=== PATIENT | male | born 1945 | race Caucasian/White ===

== ENCOUNTER 2020-07-27 06:47 | Day surgery (SDC) | payer MEDICARE, OTHER, SELFPAY ==
[2020-07-27] VITALS (7 sets, daily range): BP systolic 136–177; BP diastolic 66–94; PULSE 86–128; RESP 16–20; TEMP 36.4–36.9; O2SAT 93–99; BMI 26.5
--- NOTE | 2020-07-27 07:00 | HO.ECTPROC ---
ECT Procedure Note Diagnosis/Treatment Diagnosis: Major Depressive Disorder Previous ECT Date: 07/04/20 Current Treatment Number: 6 Treatment: Maintenance Interval Clinical Notes: depressed but stable. This note is for ECT of 07/27/20. LATE ENTRY ECT Settings Device: THYMATRON DGx Electrode Placement: Right Unilateral Program/Pulse Width: 0.25 Energy Percent: 35 Seizure Duration By EEG (in seconds): 46 By Motor Observation (in seconds): 30 Medications Administration General Anesthetic: Etomidate (12) Muscle Relaxant: Succinylcholine (100) Ancillary Medications Analgesics: Torodol - Pre ECT (15) Anti-emetics: Zofran - Pre ECT (4) Cardiovascular Medications: Labetolol (10 pre ECT) Miscillaneous Medications: Propofol (30) Airway Management Airway Management: Bag Mask Ventilation Treatment Recommendations No Changes Recommended: No change Pt Tolerated Procedure w/o Issue: Yes
--- NOTE | 2020-07-27 07:10 | HO.ECTPROC ---
ECT Procedure Note ECT Settings Device: THYMATRON DGx
--- NOTE | 2020-07-27 07:10 | MHC.SHP ---
Pre-Procedural Eval Section A The patient is an INPATIENT: No Changes since office visit: No Cold of Flu in the past 2 weeks, No New Medical Problems, No Changes in Medication and No Patient answered all questions The History & Physical has been completed within 30 days and I have reviewed it.: Yes Section B Chief Complaint: Severe Depression Allergies: Allergies Allergy/AdvReac Type Severity Reaction Status Date / Time No Known Allergies Allergy Unverified 06/21/20 15:24 [No Known Allergies*] Plan Diagnosis/Plan: Unchanged Patient has been examined and remains a candidate for the planned procedure
== END 2020-07-27 08:48 | disposition home or self-care (01) ==
PROVIDERS: PCP Nurse Practitioner Family; Visit Provider Psychiatry & Neurology Psychiatry
PROC: (CPT 90870; principal; 2020-07-27 08:00)
DX: F33.2 Major depressive disorder, recurrent severe without psychotic features (principal); C61 Malignant neoplasm of prostate; E78.5 Hyperlipidemia, unspecified; K21.9 Gastro-esophageal reflux disease without esophagitis; Z79.899 Other long term (current) drug therapy
CPT/HCPCS: 90870

== ENCOUNTER 2020-08-22 06:43 | Day surgery (SDC) | payer MEDICARE, OTHER, SELFPAY ==
--- NOTE | 2020-08-22 | ECG_ITS ---
Test Reason : TACHY Blood Pressure : / mmHG Vent. Rate : 128 BPM Atrial Rate : 128 BPM P-R Int : 152 ms QRS Dur : 088 ms QT Int : 316 ms P-R-T Axes : 004 -50 023 degrees QTc Int : 461 ms Sinus tachycardia Left anterior fascicular block Nonspecific ST abnormality Anterolateral leads Abnormal ECG When compared with ECG of 31-MAY-2020 11:21, Heart rate has increased ST more depressed Anterolateral leads Referred By: Tamia Scott Electronically Signed By:BEE CRENSHAW MD
[2020-08-22 06:44] VITALS: BP 133/84; PULSE 132; RESP 18; TEMP 36.6; O2SAT 93; BMI 26.5
[2020-08-22 07:00] VITALS: BP 141/94; PULSE 133; RESP 20; O2SAT 91
== END 2020-08-22 23:59 ==
PROVIDERS: PCP Nurse Practitioner Family; Visit Provider Psychiatry & Neurology Psychiatry
DX: F32.2 Major depressive disorder, single episode, severe without psychotic features (principal); F03.90 Unspecified dementia, unspecified severity, without behavioral disturbance, psychotic disturbance, mood disturbance, and anxiety; I10 Essential (primary) hypertension; I47.1 Supraventricular tachycardia; Z53.9 Procedure and treatment not carried out, unspecified reason
CPT/HCPCS: 93005

== ENCOUNTER 2020-08-22 07:31 | Inpatient (IN) | payer MEDICARE, OTHER, SELFPAY ==
[2020-08-22] VITALS (8 sets, daily range): BP systolic 103–139; BP diastolic 80–87; PULSE 96–117; RESP 16–20; TEMP 36–36.9; O2SAT 93–97; BMI 26.1; BMI 25.8
--- NOTE | 2020-08-22 07:35 | ED.SOB ---
HPI - SOB/Dyspnea General Chief Complaint: General Medical Stated Complaint: elevated heart rate Time Seen by Provider: 08/22/20 07:35 Source: patient Mode of arrival: other (from [facility] canceled ECT) Limitations: altered mental status History of Present Illness MD elicited complaint: shortness of breath Onset (ago): minute(s) (waiting for ECT) Context: anxiety Timing: constant Severity: mild Exacerbating factors: nothing Relieving factors: oxygen Known history of: other (SVT) Associated symptoms: palpitations Treatment prior to arrival: oxygen Related Data Home Medications Medication Instructions Recorded Confirmed doxazosin 2 mg PO DAILY 07/26/20 08/22/20 duloxetine 60 mg PO DAILY 07/26/20 08/22/20 finasteride 5 mg PO DAILY 07/26/20 08/22/20 olanzapine 20 mg PO BEDTIME 07/26/20 08/22/20 oxybutynin chloride 5 mg PO DAILY 07/26/20 08/22/20 trazodone 200 mg PO BEDTIME 07/26/20 08/22/20 Allergies Allergy/AdvReac Type Severity Reaction Status Date / Time No Known Allergies Allergy Unverified 06/21/20 15:24 [No Known Allergies*] Review of Systems Review of Systems: ROS unable to be obtained due to poor comprehension PMFSH Past Medical History Attestation statement: The following information was validated with the patient. Source: old records reviewed Medical History (Updated 08/22/20 @ 11:45 by Stephanie Gudino DO) Dementia Depression GERD (gastroesophageal reflux disease) HTN (hypertension) Hyperlipidemia SVT (supraventricular tachycardia) Surgical History (Updated 08/22/20 @ 06:40 by Nidia Lopez) H/O hernia repair History of colostomy reversal Social History Social History Smoking Status: Never smoker Smoked in Last 30 Days: No Second Hand Smoke Exposure: No Use of substances other than those prescribed or required for medical reasons: No Advance Directives: No Advance Directives Information Provided: No Advance Directives Date on File: 07/27/20 Physical Exam Vital Signs: Vital Signs: Last Vital Signs Temp 98.3 F 08/22/20 08:23 Pulse 103 H 08/22/20 08:23 Resp 20 08/22/20 08:23 BP 131/84 08/22/20 08:23 Pulse Ox 95 08/22/20 08:23 Body Mass Index 26.1 Appearance: Alert. Oriented X2. No acute distress. Eyes: Pupils equal, round and reactive to light. ENT: Pharynx normal. Neck: Normal inspection. Neck supple. CVS: tachycardic heart rate and rhythm. Pulses normal. Respiratory: No respiratory distress. Breath sounds bilaterally rales noted lower lobes Abdomen: Soft and nontender. Skin: Skin warm and dry. Normal skin color. Normal skin turgor. Extremities: No lower extremity edema. No calf ttp Neuro: Oriented X 2. No motor deficit. No sensory deficit. Course Course Course Narrative: ddimer elevated CTA for PE ordered call from Radiology one posterior RUL segmental artery no RV strain 1142am HCP Brenda aware will proceed with lovenox at this time and admit MDM - SOB/Dyspnea MDM Narrative Medical decision making narrative: 75 yo male with hx of dementia, HTN, HPL, SVT sent from [facility] pending ECT (did not have procedure) noted to be short of breath with sats 91% increased to 95% with 2L NC and HR in 140s - José Luis c/o his heart racing as well as shortness of breath but no pain at this time will need labs, troponin, bnp, ddimer, EKG, CXR - continue on O2 dispo per results and findings. Lab Data Result diagrams: 08/22/20 08:03 08/22/20 08:01 Labs: Lab Results 08/22/20 08/22/20 08/22/20 Range/Units 08:01 08:01 08:01 WBC (4.8-10.8) X10*3/uL RBC (4.60-5.80) X10*6/uL Hgb (14.0-18.0) g/dl Hct (42-52) % MCV (80-98) fL MCH (27.0-33.0) pg MCHC (31.0-36.0) g/dl RDW (11.0-16.0) % Plt Count (160-400) X10*3/uL MPV (9.4-12.4) fL Immature Gran % (Auto) (0.0-0.4) % Neut % (Auto) (45-73) % Lymph % (Auto) (20-40) % [place] % (Auto) (2-11) % Eos % (Auto) (0-4) % Baso % (Auto) (0-2) % Lymph # (Auto) (1.2-4.9) X10*3/uL [place] # (Auto) (0.1-1.2) X10*3/uL Eos # (Auto) (0.0-0.4) X10*3/uL Baso # (Auto) (0.0-0.2) X10*3/uL Abs Immat Gran (auto) (0.00-0.03) X10*3/uL Absolute Neuts (auto) (2.0-8.3) X10*3/uL Absolute Nucleated RBC (0.0-0.012) X10*3/uL Nucleated RBC % (auto) (0.0-0.2) /100WBC PT 11.4 (10.8-13.0) SEC INR 1.0 (0.9-1.1) APTT 30.5 (24.1-38.0) SEC D-Dimer 503 NG/ML Sodium (135-145) mmol/L Potassium (3.3-5.1) mmol/l Chloride (96-108) mmol/L Carbon Dioxide (22-29) mmol/L Anion Gap (12-20) BUN (9-16) mg/dL Creatinine (0.5-1.4) mg/dL Estim Creat Clear Calc Estimated GFR Random Glucose (60-115) mg/dL Calcium (8.4-10.2) mg/dL Magnesium 1.8 (1.6-2.6) mg/dL Total Bilirubin 0.4 (0.0-1.0) mg/dL Direct Bilirubin < 0.2 (0.0-0.5) mg/dL AST 22 (5-37) U/L ALT 23 (0-40) U/L Alkaline Phosphatase 104 (39-117) U/L Troponin I High Sens < 3.5 (<3.5-35.0) ng/L B-Natriuretic Peptide < 10 (<100) pg/mL Total Protein 6.5 (6.5-8.0) g/dL Albumin 3.9 (3.5-5.0) g/dL TSH 1.49 (0.32-4.0) uIU/mL 08/22/20 08/22/20 08/22/20 Range/Units 08:01 08:03 08:03 WBC 4.8 (4.8-10.8) X10*3/uL RBC 4.13 L (4.60-5.80) X10*6/uL Hgb 13.5 L (14.0-18.0) g/dl Hct 39.7 L (42-52) % MCV 96.1 (80-98) fL MCH 32.7 (27.0-33.0) pg MCHC 34.0 (31.0-36.0) g/dl RDW 12.6 (11.0-16.0) % Plt Count 191 (160-400) X10*3/uL MPV 9.1 L (9.4-12.4) fL Immature Gran % (Auto) 0.2 (0.0-0.4) % Neut % (Auto) 68.5 (45-73) % Lymph % (Auto) 19.8 L (20-40) % [place] % (Auto) 9.2 (2-11) % Eos % (Auto) 1.9 (0-4) % Baso % (Auto) 0.4 (0-2) % Lymph # (Auto) 1.0 L (1.2-4.9) X10*3/uL [place] # (Auto) 0.4 (0.1-1.2) X10*3/uL Eos # (Auto) 0.1 (0.0-0.4) X10*3/uL Baso # (Auto) 0.0 (0.0-0.2) X10*3/uL Abs Immat Gran (auto) 0.01 (0.00-0.03) X10*3/uL Absolute Neuts (auto) 3.3 (2.0-8.3) X10*3/uL Absolute Nucleated RBC 0.000 (0.0-0.012) X10*3/uL Nucleated RBC % (auto) 0.0 (0.0-0.2) /100WBC PT (10.8-13.0) SEC INR (0.9-1.1) APTT (24.1-38.0) SEC D-Dimer NG/ML Sodium 138 Cancelled (135-145) mmol/L Potassium 4.3 Cancelled (3.3-5.1) mmol/l Chloride 105 Cancelled (96-108) mmol/L Carbon Dioxide 25 Cancelled (22-29) mmol/L Anion Gap 12 Cancelled (12-20) BUN 24 H Cancelled (9-16) mg/dL Creatinine 1.07 Cancelled (0.5-1.4) mg/dL Estim Creat Clear Calc 61.5 Cancelled Estimated GFR > 60 Cancelled Random Glucose 142 H Cancelled (60-115) mg/dL Calcium 9.0 Cancelled (8.4-10.2) mg/dL Magnesium (1.6-2.6) mg/dL Total Bilirubin (0.0-1.0) mg/dL Direct Bilirubin (0.0-0.5) mg/dL AST (5-37) U/L ALT (0-40) U/L Alkaline Phosphatase (39-117) U/L Troponin I High Sens (<3.5-35.0) ng/L B-Natriuretic Peptide (<100) pg/mL Total Protein (6.5-8.0) g/dL Albumin (3.5-5.0) g/dL TSH (0.32-4.0) uIU/mL 08/22/20 Range/Units 08:03 WBC (4.8-10.8) X10*3/uL RBC (4.60-5.80) X10*6/uL Hgb (14.0-18.0) g/dl Hct (42-52) % MCV (80-98) fL MCH (27.0-33.0) pg MCHC (31.0-36.0) g/dl RDW (11.0-16.0) % Plt Count (160-400) X10*3/uL MPV (9.4-12.4) fL Immature Gran % (Auto) (0.0-0.4) % Neut % (Auto) (45-73) % Lymph % (Auto) (20-40) % [place] % (Auto) (2-11) % Eos % (Auto) (0-4) % Baso % (Auto) (0-2) % Lymph # (Auto) (1.2-4.9) X10*3/uL [place] # (Auto) (0.1-1.2) X10*3/uL Eos # (Auto) (0.0-0.4) X10*3/uL Baso # (Auto) (0.0-0.2) X10*3/uL Abs Immat Gran (auto) (0.00-0.03) X10*3/uL Absolute Neuts (auto) (2.0-8.3) X10*3/uL Absolute Nucleated RBC (0.0-0.012) X10*3/uL Nucleated RBC % (auto) (0.0-0.2) /100WBC PT (10.8-13.0) SEC INR (0.9-1.1) APTT (24.1-38.0) SEC D-Dimer NG/ML Sodium (135-145) mmol/L Potassium (3.3-5.1) mmol/l Chloride (96-108) mmol/L Carbon Dioxide (22-29) mmol/L Anion Gap (12-20) BUN (9-16) mg/dL Creatinine (0.5-1.4) mg/dL Estim Creat Clear Calc Estimated GFR Random Glucose (60-115) mg/dL Calcium (8.4-10.2) mg/dL Magnesium (1.6-2.6) mg/dL Total Bilirubin (0.0-1.0) mg/dL Direct Bilirubin (0.0-0.5) mg/dL AST (5-37) U/L ALT (0-40) U/L Alkaline Phosphatase (39-117) U/L Troponin I High Sens (<3.5-35.0) ng/L B-Natriuretic Peptide Cancelled (<100) pg/mL Total Protein (6.5-8.0) g/dL Albumin (3.5-5.0) g/dL TSH (0.32-4.0) uIU/mL ECG Data Attestation: I personally reviewed and interpreted this ECG as follows: ECG interpretation date: 08/22/20 ECG interpretation time: 07:51 Interpretation: Rate: 128 Rhythm: sinus tachycardia Artie: left Normal P waves. Normal MAYRA. Normal QRS complex. ST T wave : normal qTC: normal prior studies: no acute ischemia The study has been interpreted contemporaneously by me. . Discharge Plan Discharge Clinical Impression: Acute dyspnea, Pulmonary embolism Patient Disposition: Admitted As Inpatient Prescriptions: No Action olanzapine 10 mg tablet 20 mg PO BEDTIME RF: 0 trazodone 100 mg tablet 200 mg PO BEDTIME RF: 0 oxybutynin chloride 5 mg tablet 5 mg PO DAILY RF: 0 finasteride 5 mg tablet 5 mg PO DAILY RF: 0 doxazosin 2 mg tablet 2 mg PO DAILY RF: 0 duloxetine 60 mg capsule,delayed release(DR/EC) 60 mg PO DAILY RF: 0
--- NOTE | 2020-08-22 07:36 | XR_ITS ---
EXAMINATION: XR CHEST CLINICAL INFORMATION: Dyspnea COMPARISON: Chest radiographs 02/17/2020, 04/15/2019, 04/05/2019, CT chest noncontrast 11/19/2018 TECHNIQUE: Portable upright AP view of the chest was obtained. FINDINGS: There are low lung volumes. There is no airspace consolidation or definite groundglass opacity. The heart is normal in size and the vascularity is normal. The costophrenic sulci are clear. There is a calcified pleural plaque again seen overlying the right anterior second rib, or approximately 0.7 x 1.4 cm. Retrocardiac density is consistent with the hiatal hernia. No visible acute bony abnormality. XR/XR chest 1V IMPRESSION: 1. No airspace consolidation or definite groundglass opacity. 2. Vascularity normal. No CHF. 3. Hiatal hernia. Calcified pleural plaque overlying right upper zone.
[2020-08-22 08:21] LABS: MANUAL DIFF FLAG NO
[2020-08-22 08:26] LABS: Basophils Percent Auto 0.4 % (0-2); Eosinophils Absolute Auto 0.1 X10*3/uL (0.0-0.4); Eosinophils Percent Auto 1.9 % (0-4); Hematocrit 39.7 % (42-52); Hemoglobin 13.5 g/dl (14.0-18.0); Imm Gran Abs Auto 0.01 X10*3/uL (0.00-0.03); Imm Gran Pct Auto 0.2 % (0.0-0.4); Lymphocytes Percent Auto 19.8 % (20-40); Mean Corpuscular Hemoglobin 32.7 pg (27.0-33.0); Mean Corpuscular Volume 96.1 fL (80-98); Mean Platelet Volume 9.1 fL (9.4-12.4); Monocytes Absolute Auto 0.4 X10*3/uL (0.1-1.2); Monocytes Percent Auto 9.2 % (2-11); Neutrophils Absolute Auto 3.3 X10*3/uL (2.0-8.3); Neutrophils Percent Auto 68.5 % (45-73); Platelet Count 191 X10*3/uL (160-400); Red Blood Count 4.13 X10*6/uL (4.60-5.80); Red Cell Distribution Width 12.6 % (11.0-16.0); White Blood Count 4.8 X10*3/uL (4.8-10.8)
[2020-08-22 08:34] LABS: Prothrombin Time 11.4 SEC (10.8-13.0)
[2020-08-22 08:37] LABS: D Dimer 503 NG/ML; Partial Thromboplastin Time 30.5 SEC (24.1-38.0)
--- NOTE | 2020-08-22 08:41 | CT_ITS ---
EXAMINATION: CT ANGIOGRAM OF THE CHEST WITH AND WITHOUT CONTRAST (CT PULMONARY ANGIOGRAM FOR PE) CLINICAL INFORMATION: Reason for Exam elevated d-dimer, palpitations, dyspnea COMPARISON: CT chest noncontrast March 19, 2019, chest radiograph 08/22/2020 TECHNIQUE: Prior to contrast administration, noncontrast localization images were obtained. Subsequently, multidetector volumetric imaging was performed from the thoracic inlet to below the diaphragms following the administration of 75 mL Omnipaque 350 intravenous contrast. Sagittal, coronal, and MIP oblique sagittal reformatted images were obtained on the CT workstation, uploaded to PACS, and reviewed. This CT examination was performed using dose optimization techniques as appropriate, variously including the following: *Automated exposure control *Adjustment of mA and/or kV according to patient size (this includes techniques or standardized protocols for targeted exams where dose is matched to indication/reason for exam; i.e. extremities or head) *Use of iterative reconstruction technique Total exam dose-length product 364 mGy-cm FINDINGS: QUALITY OF STUDY/CONTRAST BOLUS: Satisfactory. PULMONARY ARTERIES: There is a solitary pulmonary embolus at origin segmental posterior right upper lobe artery. The remainder of the vasculature appears patent with no other visible acute or chronic emboli. THORACIC AORTA: No aneurysm or dissection. LUNG: The central airways are clear and there is no endobronchial lesion or bronchiectasis. No lobar segmental airspace consolidation or suspicious groundglass opacities. There is bibasilar subsegmental atelectasis and some coarsening of the bibasilar reticular markings. PLEURA: There is calcified pleural plaque right anterior chest and bilateral posterior basilar chest similar to prior CT 2019. No pleural thickening or pleural mass. No pleural effusion. MEDIASTINUM: Normal heart size. No pericardial effusion. No hilar or mediastinal lymphadenopathy. No evidence of septal bowing or right heart strain. Sliding hiatal hernia. CHEST WALL/AXILLA: No axillary or internal mammary lymphadenopathy. OSSEOUS STRUCTURES: No acute or suspicious osseous abnormality. UPPER ABDOMEN: Sliding hiatal hernia, or approximately 5.5 cm. Incidental 1.3 cm splenule left upper quadrant. Cyst anterior upper pole right kidney, water attenuation, 2.4 cm. No reflux of contrast into the hepatic veins to suggest elevated right heart pressures. Results called to Dr. Gudino in the Emergency Department at [address]/CT angio chest PE protocol IMPRESSION: 1. Positive for solitary pulmonary embolism segmental posterior right upper lobe. No right ventricular strain. 2. No thoracic aortic enlargement or dissection. 3. Chronic pleural plaques. No airspace consolidation or effusion. VTE: positive
[2020-08-22 08:53] LABS: B Type Natriuretic Peptide < 10 pg/mL (<100); Troponin-I High Sensitivity < 3.5 ng/L (<3.5-35.0)
[2020-08-22 08:56] LABS: Alanine Aminotransferase 23 U/L (0-40); Albumin Level 3.9 g/dL (3.5-5.0); Alkaline Phosphatase 104 U/L (39-117); Aspartate Amino Transferase 22 U/L (5-37); Bilirubin Direct < 0.2 mg/dL (0.0-0.5); Bilirubin Total 0.4 mg/dL (0.0-1.0); Magnesium 1.8 mg/dL (1.6-2.6); Total Protein 6.5 g/dL (6.5-8.0)
[2020-08-22 09:11] LABS: Thyroid Stimulating Hormone 1.49 uIU/mL (0.32-4.0)
--- NOTE | 2020-08-22 09:32 | PC.NURSE ---
REPORT RECEIVED FROM DEBBIE LINO. PT IS ALERT, RR EVEN, SPEAKS IN FULL SENTENCES, SKIN IS PWDI, AND HE IS IN NAD. AWAITING CTA.
[2020-08-22 09:36] LABS: Anion Gap 12 (12-20); Blood Urea Nitrogen 24 mg/dL (9-16); Carbon Dioxide 25 mmol/L (22-29); Chloride 105 mmol/L (96-108); Creatinine Clr Calc Pharmacy 61.5; Estimated Glomerular Filt Rate > 60; Glucose Random 142 mg/dL (60-115); Potassium 4.3 mmol/l (3.3-5.1); Sodium 138 mmol/L (135-145)
[2020-08-22] MEDS: iohexoL 350 MG/ML 100 ML INFUS..BTL IV (11:00)
[2020-08-22] MEDS: Enoxaparin Sodium 100 MG/ML SYRINGE 85 MG SUBCUT (11:54)
[2020-08-22 12:14] LABS: COVID-19 Test Negative (Negative)
--- NOTE | 2020-08-22 14:21 | P.HPHOSP_ITS ---
History of Present Illness Date of Service: 08/22/20 <PATSY Lopez - Last Filed: 08/22/20 14:34> Chief Complaint: chest pain, shortness of breath <PATSY Lopez Last Filed: 08/22/20 14:34> this is a 75-year-old old male with a history of severe depression is aware sent to the emergency department from ECT for tachycardia. The he presented for scheduled ECT and was found to be tachycardic with a heart rate in the 140s. Who is a lady with a short of breath and chest pain. His oxygen saturation was 91 % on room air. D-dimer slightly elevated and he underwent a CTA which showed a segmental PE. He was given a dose of therapeutic Lovenox and the decision was made to admit him for further management. Patient is a poor historian and says he has shortness of breath and chest pain but cannot either or if there is a pattern. His chest pain has reportedly been ongoing for several weeks. Although at this time he denies any shortness of breath or chest <PATSY Lopez - Last Filed: 08/22/20 14:34> Review of Systems Review of Systems: Yes all other systems are reviewed and are negative <PATSY Lopez Last Filed: 08/22/20 14:34> Cardiovascular: Cardiovascular: Reports chest pain and Reports dyspnea <PATSY Lopez Last Filed: 08/22/20 14:34> Respiratory: Respiratory: Denies pain on inspiration and Reports dyspnea <PATSY Lopez Last Filed: 08/22/20 14:34> [facility] Medical History: Medical History (Updated 08/22/20 @ 14:26 by PATSY Lopez) Dementia Depression Diverticulitis of colon with perforation GERD (gastroesophageal reflux disease) HTN (hypertension) Hyperlipidemia SVT (supraventricular tachycardia) <PATSY Lopez Last Filed: 08/22/20 14:34> Functional capacity: independent ambulation <PATSY Lopez Last Filed: 08/22/20 14:34> Family History: Family History Other No history of cardiac disorder <PATSY Lopez - Last Filed: 08/22/20 14:34> Surgical History: Surgical History (Updated 08/22/20 @ 14:26 by PATSY Lopez) H/O hernia repair History of colostomy reversal Status post Paula's procedure <PATSY Lopez - Last Filed: 08/22/20 14:34> Social History: Social History (Updated 08/22/20 @ 14:26 by PATSY Lopez) Housing: Assisted Living Facility Smoking Status: Never smoker Smoked in Last 30 Days: No Second Hand Smoke Exposure: No Use of substances other than those prescribed or required for medical reasons: No Advance Directives: No Advance Directives Information Provided: No Advance Directives Date on File: 07/27/20 <PATSY Lopez - Last Filed: 08/22/20 14:34> Meds Allergies/Adverse reactions: Allergies Allergy/AdvReac Type Severity Reaction Status Date / Time No Known Allergies Allergy Unverified 06/21/20 15:24 [No Known Allergies*] <PATSY Lopez - Last Filed: 08/22/20 14:34> Home medications: Home Medications Medication Instructions Recorded Confirmed Type doxazosin 2 mg PO DAILY 07/26/20 08/22/20 History duloxetine 60 mg PO DAILY 07/26/20 08/22/20 History finasteride 5 mg PO DAILY 07/26/20 08/22/20 History olanzapine 20 mg PO BEDTIME 07/26/20 08/22/20 History oxybutynin chloride 5 mg PO DAILY 07/26/20 08/22/20 History trazodone 200 mg PO BEDTIME 07/26/20 08/22/20 History <PATSY Lopez - Last Filed: 08/22/20 14:34> Physical Exam Vital Signs and Narrative: Vital Signs: Last Vital Signs Temp 98.3 F 08/22/20 08:23 Pulse 102 H 08/22/20 11:40 Resp 16 08/22/20 11:40 BP 139/87 08/22/20 11:40 Pulse Ox 97 08/22/20 11:40 Body Mass Index 26.1 <PATSY Lopez - Last Filed: 08/22/20 14:34> Const: Nutritional Appearance: well nourished <PATSY Lopez - Last Filed: 08/22/20 14:34> Orientation/consciousness: patient oriented x3 <PATSY Lopez - Last Filed: 08/22/20 14:34> HENMT: Head: Yes normocephalic and Yes atraumatic <PATSY Lopez - Last Filed: 08/22/20 14:34> Eyes: Sclerae: sclerae normal <PATSY Lopez - Last Filed: 08/22/20 14:34> Chest: Chest palpation & inspection: normal inspection of the chest <PATSY Lopez - Last Filed: 08/22/20 14:34> Resp: Effort & Inspection: normal respiratory effort and no respiratory distress <PATSY Lopez - Last Filed: 08/22/20 14:34> Auscultation: clear to auscultation bilaterally <PATSY Lopez - Last Filed: 08/22/20 14:34> Cardio: Rate: regular rate <PATSY Lopez - Last Filed: 08/22/20 14:34> Rhythm: regular rhythm <PATSY Lopez - Last Filed: 08/22/20 14:34> GI: Palpation (GI): Soft to palpation and nontender <PATSY Lopez - Last Filed: 08/22/20 14:34> Skin: General skin exam: no rashes or lesions noted <PATSY Lopez - Last Filed: 08/22/20 14:34> Neuro: General: patient oriented x3 <PATSY Lopez - Last Filed: 08/22/20 14:34> Cranial nerves: Yes CN's II-XII intact bilaterally and Yes Bilaterally intact EOM present <PATSY Lopez - Last Filed: 08/22/20 14:34> Extrem: General: Yes normal to inspection <PATSY Lopez - Last Filed: 08/22/20 14:34> Results Labs CBC and Chem 7: : 08/22/20 08:03 08/22/20 08:01 <PATSY Lopez - Last Filed: 08/22/20 14:34> Labs: Laboratory Results - last 24 hr 08/22/20 08/22/20 08/22/20 08:01 08:01 08:01 MCV MCH MCHC RDW Plt Count MPV Immature Gran % (Auto) Neut % (Auto) Lymph % (Auto) [place] % (Auto) Eos % (Auto) Baso % (Auto) Lymph # (Auto) [place] # (Auto) Eos # (Auto) Baso # (Auto) Abs Immat Gran (auto) Absolute Neuts (auto) Absolute Nucleated RBC Nucleated RBC % (auto) PT 11.4 INR 1.0 APTT 30.5 D-Dimer 503 Anion Gap Estim Creat Clear Calc Estimated GFR Random Glucose Calcium Magnesium 1.8 Total Bilirubin 0.4 Direct Bilirubin < 0.2 AST 22 ALT 23 Alkaline Phosphatase 104 Troponin I High Sens < 3.5 B-Natriuretic Peptide < 10 Total Protein 6.5 Albumin 3.9 TSH 1.49 COVID-19 ([facility]) [employer] 08/22/20 08/22/20 08/22/20 08:01 08:03 08:03 MCV 96.1 MCH 32.7 MCHC 34.0 RDW 12.6 Plt Count 191 MPV 9.1 L Immature Gran % (Auto) 0.2 Neut % (Auto) 68.5 Lymph % (Auto) 19.8 L [place] % (Auto) 9.2 Eos % (Auto) 1.9 Baso % (Auto) 0.4 Lymph # (Auto) 1.0 L [place] # (Auto) 0.4 Eos # (Auto) 0.1 Baso # (Auto) 0.0 Abs Immat Gran (auto) 0.01 Absolute Neuts (auto) 3.3 Absolute Nucleated RBC 0.000 Nucleated RBC % (auto) 0.0 PT INR APTT D-Dimer Anion Gap 12 Cancelled Estim Creat Clear Calc 61.5 Cancelled Estimated GFR > 60 Cancelled Random Glucose 142 H Cancelled Calcium 9.0 Cancelled Magnesium Total Bilirubin Direct Bilirubin AST ALT Alkaline Phosphatase Troponin I High Sens B-Natriuretic Peptide Total Protein Albumin TSH COVID-19 ([facility]) COVID-[employer] 08/22/20 08/22/20 08:03 11:51 MCV MCH MCHC RDW Plt Count MPV Immature Gran % (Auto) Neut % (Auto) Lymph % (Auto) [place] % (Auto) Eos % (Auto) Baso % (Auto) Lymph # (Auto) [place] # (Auto) Eos # (Auto) Baso # (Auto) Abs Immat Gran (auto) Absolute Neuts (auto) Absolute Nucleated RBC Nucleated RBC % (auto) PT INR APTT D-Dimer Anion Gap Estim Creat Clear Calc Estimated GFR Random Glucose Calcium Magnesium Total Bilirubin Direct Bilirubin AST ALT Alkaline Phosphatase Troponin I High Sens B-Natriuretic Peptide Cancelled Total Protein Albumin TSH COVID-19 ([facility]) Negative COVID-19 Clin Com See Note <PATSY Lopez - Last Filed: 08/22/20 14:34> Imaging Radiologist's Impressions: Impressions Chest X-Ray 08/22/20 07:36 IMPRESSION: 1. No airspace consolidation or definite groundglass opacity. 2. Vascularity normal. No CHF. 3. Hiatal hernia. Calcified pleural plaque overlying right upper zone. Chest CTA 08/22/20 08:41 IMPRESSION: 1. Positive for solitary pulmonary embolism segmental posterior right upper lobe. No right ventricular strain. 2. No thoracic aortic enlargement or dissection. 3. Chronic pleural plaques. No airspace consolidation or effusion. VTE: positive <PATSY Lopez - Last Filed: 08/22/20 14:34> Assessment and Plan (1) Pulmonary embolism: Qualifiers: Acute cor pulmonale presence: unspecified Chronicity: acute Pulmonary embolism type: unspecified Qualified Code(s): I26.99 - Other pulmonary embolism without acute cor pulmonale <PATSY Lopez - Last Filed: 08/22/20 14:34> Status: Acute <PATSY Lopez - Last Filed: 08/22/20 14:34> this is a 75-year-old male with history of severe depression, BPH, GERD who was sent from ECT due to tachycardia found to have PE PE solitary segmental pulmonary embolus RUL not currently requiring oxygen HR 102, EKG sinus tach trop and BNP negative Given 1 dose of therapeutic Lovenox in the ED, will transition to Eliquis mood continue duloxetine, olanzapine, trazodone continue the remainder of home medication DVT prophylaxis- Eliquis this case was discussed with Dr. Zurita <PATSY Lopez - Last Filed: 08/22/20 14:34>
--- NOTE | 2020-08-22 14:49 | PC.NURSE ---
AWAITING RN CALL BACK FOR REPORT.
--- NOTE | 2020-08-22 15:07 | PM.EVENT ---
Event Note Date of Service: 08/22/20 Event Note: Addendum to H and P by Mid-level Provider I saw and examined the patient and participated in the martinez portion of the E/M service. I agree with the history and exam as documented by PA. Patient presented for ECT and was noted to be tachtcardic and sent to ED where work up has revealed PE and is initiated on anticoagulation. Exam: Normal respiratory effort. CT chest result reviewed and shows PE. Patient has pulmonary embolism, etiology unclear and may need further investigation. Will admit for anticoagulation and monitoring and work up. Otherwise, I agree with assessment and plan as outlined in the H and P.
[2020-08-22] MEDS: 0.9 % Sodium Chloride Flush 3 ML SYRINGE IVFLUSH ×2 (15:53→21:06)
[2020-08-22] MEDS: 0.9 % Sodium Chloride 1,000 ML 100 ML IVCONT (18:40)
[2020-08-22] MEDS: OLANZapine 10 MG TABLET 20 MG PO (21:05)
[2020-08-22] MEDS: Apixaban 5 MG TABLET 10 MG PO (21:05)
[2020-08-22] MEDS: traZODone HCL 100 MG TABLET 200 MG PO (21:05)
[2020-08-23] VITALS (7 sets, daily range): BP systolic 105–143; BP diastolic 65–90; PULSE 87–105; RESP 18–20; TEMP 35.8–36.7; O2SAT 94–98
--- NOTE | 2020-08-23 | US_ITS ---
EXAMINATION: US VENOUS ULTRASOUND WITH DOPPLER LOWER EXTREMITY, BILATERAL CLINICAL INFORMATION: Concern for lower extremity DVT. COMPARISON: None TECHNIQUE: Ultrasound of the deep veins is performed from the hip to the calf with compression sonography and color and pulse Doppler assessment. Spectral analysis with color-flow imaging is performed. FINDINGS: RIGHT: There is normal venous compression and respiratory variation and augmented flow. The visualized common femoral vein, superficial femoral vein, profunda femoral vein, popliteal vein, and the trifurcation region shows no evidence of deep venous thrombosis. There is no significant popliteal fossa cyst. LEFT: There is normal venous compression and respiratory variation and augmented flow. The visualized common femoral vein, superficial femoral vein, profunda femoral vein, popliteal vein, and the trifurcation region shows no evidence of deep venous thrombosis. There is no significant popliteal fossa cyst. If the patient's symptoms persist, followup ultrasound in 5 days 7 days might be of value to exclude proximal propagation from a non-visualized calf vein. US/US venous duplex LE BI IMPRESSION: No DVT demonstrated in the bilateral lower extremity.
[2020-08-23] MEDS: 0.9 % Sodium Chloride 1,000 ML 100 ML IVCONT ×2 (05:51→18:30)
[2020-08-23 06:43] LABS: MANUAL DIFF FLAG NO
[2020-08-23 07:00] LABS: Basophils Percent Auto 0.8 % (0-2); Eosinophils Absolute Auto 0.1 X10*3/uL (0.0-0.4); Eosinophils Percent Auto 2.1 % (0-4); Hematocrit 39.7 % (42-52); Hemoglobin 13.5 g/dl (14.0-18.0); Imm Gran Abs Auto 0.01 X10*3/uL (0.00-0.03); Imm Gran Pct Auto 0.2 % (0.0-0.4); Lymphocytes Absolute Auto 1.4 X10*3/uL (1.2-4.9); Lymphocytes Percent Auto 25.8 % (20-40); Mean Corpuscular Hemoglobin 33.2 pg (27.0-33.0); Mean Corpuscular Volume 97.5 fL (80-98); Mean Platelet Volume 9.1 fL (9.4-12.4); Monocytes Absolute Auto 0.7 X10*3/uL (0.1-1.2); Neutrophils Percent Auto 57.1 % (45-73); Platelet Count 202 X10*3/uL (160-400); Red Blood Count 4.07 X10*6/uL (4.60-5.80); Red Cell Distribution Width 12.6 % (11.0-16.0); White Blood Count 5.3 X10*3/uL (4.8-10.8)
[2020-08-23 07:28] LABS: Anion Gap 11 (12-20); Blood Urea Nitrogen 16 mg/dL (9-16); Calcium 8.7 mg/dL (8.4-10.2); Carbon Dioxide 26 mmol/L (22-29); Chloride 107 mmol/L (96-108); Creatinine Clr Calc Pharmacy 67.2; Estimated Glomerular Filt Rate > 60; Glucose Random 100 mg/dL (60-115); Potassium 4.1 mmol/l (3.3-5.1); Sodium 140 mmol/L (135-145)
[2020-08-23] MEDS: Doxazosin Mesylate 2 MG TABLET PO (09:28)
[2020-08-23] MEDS: DULoxetine HCl 60 MG CAPSULE.DR PO (09:28)
[2020-08-23] MEDS: Finasteride 5 MG TABLET PO (09:28)
[2020-08-23] MEDS: Apixaban 5 MG TABLET 10 MG PO ×2 (10:45→21:33)
[2020-08-23 12:43] LABS: INTERNATIONAL NORM RATIO 1.7 (0.9-1.1); Prothrombin Time 20.7 SEC (10.8-13.0)
--- NOTE | 2020-08-23 12:49 | MHC.CM.PN ---
SANDI spoke to pts daughter/HCP, Brenda Amato ([phone]) who reports the pt lives at [facility]. She reports he is mostly independent with self care but requires supervision. She reports he does not use an assisted device, resides on the 3rd floor, and usually uses the stairs. She reports the pt comes to [facility] for ECT treatment and reports the [facility] security department assists him with transport back and forth. She reports the pt will need transportation back to [facility] and could use the shuttle if it is running. She reports the pts new prescriptions would have to be sent to [facility] to be delivered to the [facility]. Brenda also reported she was concerned that the pt was not telling people when he is not feeling well. She reports the pts mother called him Sundays and during that t/c, he told her he was not feeling well but he never told anyone at the [facility]. Brenda also reports a family history of blood clots and says the pts brother is on a blood thinner.
--- NOTE | 2020-08-23 15:30 | P.PNIM_ITS ---
Subjective Subjective Date of Service: 08/23/20 Interval History: the patient was seen and evaluated this morning Laying in bed, feels comfortable Denies any fever, chills or shortness of breath No reported other overnight events. Systemic review: No fever, chills or weakness No chest pain, palpitation No shortness of breath or coughing No abdominal pain, nausea or vomiting No urinary symptoms No any rash or wounds Physical Exam 2 Vital Signs: Vital Signs: Last Vital Signs Temp 97.9 F 08/23/20 15: Pulse 87 08/23/20 15:21 Resp 18 08/23/20 15:21 BP 105/65 08/23/20 15:21 Pulse Ox 95 08/23/20 15:21 Body Mass Index 25.8 Constitutional : Alert, oriented, not in distress Neck : Normal inspection, Supple Cardiovascular : RRR, S1 S2, no lower extremity edema Respiratory : Good bilateral air entry, no crackles, wheezes or rhonchi Gastrointestinal: soft, lax, Normal bowel sounds, Non tender Skin : Warm/Dry, No rash Neurological : Alert & oriented x3, No focal deficit Objective Data Current Medications Generic Name Dose Route Start Last Admin Trade Name Freq PRN Reason Stop Dose Admin Acetaminophen 650 mg 08/22/20 15:19 Acetaminophen 325 Mg Tablet PO Q6H PRN Pain, Mild (Pain Scale 1-3) Apixaban 10 mg 08/22/20 23:00 08/23/20 10:45 Apixaban 5 Mg Tablet PO 10 mg Q12H ROMMEL Administration Docusate Sodium 100 mg 08/22/20 15:19 Docusate Sodium 100 Mg Capsule PO DAILY PRN Constipation Doxazosin Mesylate 2 mg 08/23/20 09:00 08/23/20 09:28 Doxazosin Mesylate 2 Mg Tablet PO 2 mg DAILY ROMMEL Administration Protocol Duloxetine HCl 60 mg 08/23/20 09:00 08/23/20 09:28 Duloxetine Hcl 60 Mg Capsule.Dr PO 60 mg DAILY ROMMEL Administration Finasteride 5 mg 08/23/20 09:00 08/23/20 09:28 Finasteride 5 Mg Tablet PO 5 mg DAILY ROMMEL Administration Sodium Chloride 1,000 mls @ 100 mls/hr 08/22/20 17:15 08/23/20 14:50 Ns IVCONT 100 mls/hr .Q10H ROMMEL Infusion Olanzapine 20 mg 08/22/20 21:00 08/22/20 21:05 Olanzapine 10 Mg Tablet PO 20 mg BEDTIME ROMMEL Administration Ondansetron HCl 4 mg 08/22/20 15:19 Ondansetron Hcl 4 Mg/2 Ml Vial IVPUSH Q8H PRN Nausea and Vomiting Oxybutynin Chloride 5 mg 08/23/20 09:00 08/23/20 09:28 Oxybutynin Chloride Er 5 Mg Tab.Er.24 PO 5 mg DAILY ROMMEL Administration Pharmacy Consult 1 each 08/22/20 07:52 Consult Rx Perform Med Rec MISCELLANE ONCE PRN Consult order Sodium Chloride 3 ml 08/22/20 16:00 08/23/20 09:27 0.9 % Sodium Chloride Flush 3 Ml Syringe IVFLUSH Not Given QSHIFT ROMMEL Trazodone HCl 200 mg 08/22/20 21:00 08/22/20 21:05 Trazodone Hcl 100 Mg Tablet PO 200 mg BEDTIME ROMMEL Administration Labs CBC & Chem 7: 08/23/20 05:42 08/23/20 05:42 Microbiology Microbiology Results: Microbiology 08/22/20 09:09 Blood - Venous Blood Culture - Preliminary No growth after 24 hours. 08/22/20 08:54 Blood - Venous Blood Culture - Preliminary No growth after 24 hours. Assessment and Plan (1) Pulmonary embolism: Status: Acute Assessment and Plan: this is a 75-year-old male with history of severe depression, BPH, GERD who was sent from ECT due to tachycardi PE CTA showed solitary segmental pulmonary embolus RUL US showed no DVT trop and BNP negative Continue with Eliquis Physical deconditioning Reports generalized weakness and fatigue to do physical therapy Urine frequency To check urinalysis No clear signs of infection mood disorder continue duloxetine, olanzapine, trazodone DVT prophylaxis Eliquis
[2020-08-23] MEDS: traZODone HCL 100 MG TABLET 200 MG PO (21:33)
[2020-08-23] MEDS: OLANZapine 10 MG TABLET 20 MG PO (21:34)
[2020-08-24] VITALS (8 sets, daily range): BP systolic 107–136; BP diastolic 64–78; PULSE 72–115; RESP 18–20; TEMP 35.9–36.8; O2SAT 94–96
[2020-08-24] MEDS: 0.9 % Sodium Chloride 1,000 ML 100 ML IVCONT (03:52)
[2020-08-24 06:14] LABS: Hematocrit 36.3 % (42-52); Hemoglobin 12.1 g/dl (14.0-18.0); Mean Corpuscular HGB Conc 33.3 g/dl (31.0-36.0); Mean Corpuscular Hemoglobin 32.5 pg (27.0-33.0); Mean Corpuscular Volume 97.6 fL (80-98); Platelet Count 176 X10*3/uL (160-400); Red Blood Count 3.72 X10*6/uL (4.60-5.80); White Blood Count 5.4 X10*3/uL (4.8-10.8)
[2020-08-24 06:47] LABS: Anion Gap 9 (12-20); Blood Urea Nitrogen 23 mg/dL (9-16); Calcium 8.1 mg/dL (8.4-10.2); Carbon Dioxide 25 mmol/L (22-29); Chloride 111 mmol/L (96-108); Creatinine Clr Calc Pharmacy 72.4; Estimated Glomerular Filt Rate > 60; Glucose Random 99 mg/dL (60-115); Potassium 4.2 mmol/l (3.3-5.1); Sodium 141 mmol/L (135-145)
[2020-08-24] MEDS: Doxazosin Mesylate 2 MG TABLET PO (08:18)
[2020-08-24] MEDS: DULoxetine HCl 60 MG CAPSULE.DR PO (08:18)
[2020-08-24] MEDS: 0.9 % Sodium Chloride Flush 3 ML SYRINGE IVFLUSH ×3 (08:19→23:33)
[2020-08-24] MEDS: Finasteride 5 MG TABLET PO (08:19)
[2020-08-24] MEDS: Apixaban 5 MG TABLET 10 MG PO ×2 (10:44→21:18)
--- NOTE | 2020-08-24 12:06 | MHC.CM.PN ---
Addendum entered by Ya Orta 08/24/20 15:15: Scripts for Eliquis faxed to [facility]. Addendum entered by Ya Orta 08/24/20 14:00: Patient's discharge placed on hold for today r/t patient will be on Eliquis BID and [facility] will not be able to deliver med until tomorrow a.mRory Mo at [facility] [phone] updated and beverley Gutierrez [phone]. CM will fax eliquis script to pharmacy today. Patient will go home by shuttle transport. Original Note: Patient will be discharged home today to [facility] via [facility] shuttle at 2pm. Patient, dtr and nurse aware.
--- NOTE | 2020-08-24 13:19 | PM.DS ---
DS: Providers Provider Date of admission: 08/22/20 14:19 Primary care physician: Marichuy Castano NP DS: Diagnosis Discharge Diagnosis (1) Pulmonary embolism: Status: Acute (2) Physical deconditioning: Status: Acute DS: Medications Discharge Medications Home Medications: Home Medications Medication Instructions Recorded Confirmed doxazosin 2 mg PO DAILY 07/26/20 08/22/20 duloxetine 60 mg PO DAILY 07/26/20 08/22/20 finasteride 5 mg PO DAILY 07/26/20 08/22/20 olanzapine 20 mg PO BEDTIME 07/26/20 08/22/20 oxybutynin chloride 5 mg PO DAILY 07/26/20 08/22/20 trazodone 200 mg PO BEDTIME 07/26/20 08/22/20 Previous Rx's Medication Instructions Recorded apixaban [Eliquis] 5 mg PO BID #60 tab 08/24/20 apixaban [Eliquis] 10 mg PO Q12H #16 tab 08/24/20 DS: Summary Hospital Course Hospital Course: Admission note HPI this is a 75-year-old old male with a history of severe depression is aware sent to the emergency department from ECT for tachycardia. The he presented for scheduled ECT and was found to be tachycardic with a heart rate in the 140s. Who is a lady with a short of breath and chest pain. His oxygen saturation was 91 % on room air. D-dimer slightly elevated and he underwent a CTA which showed a segmental PE. He was given a dose of therapeutic Lovenox and the decision was made to admit him for further management. Patient is a poor historian and says he has shortness of breath and chest pain but cannot either or if there is a pattern. His chest pain has reportedly been ongoing for several weeks. Although at this time he denies any shortness of breath or chest Hospital course The patient was admitted to the hospital for evaluation of tachycardia noticed on outpatient setting. CTA of the lungs showed solitary segmental pulmonary embolism in the right upper lobe. Ultrasound was done showing no DVT in lower extremities. The patient was started on Eliquis with good response as he was able to ambulate freely with no shortness of breath. He was evaluated by Physical therapy who recommended short-term rehab for physical deconditioning. The patient leans toward going back home with home therapy. Continue with Eliquis as prescribed to follow-up with PCP for further evaluation and treatment Time Spent with Patient Time attestation: Total time spent providing and/or coordinating discharge services: Physical Exam Vital Signs: Vital Signs: Last Vital Signs Temp 97.2 F 08/24/20 11:24 Pulse 96 08/24/20 11:24 Resp 20 08/24/20 11:24 BP 110/64 08/24/20 11:24 Pulse Ox 95 08/24/20 11:24 Body Mass Index 25.8 DS: Data Data Completed and Pending Labs on day of discharge: 08/22/20 07:36 XR chest 1V Stat 08/22/20 07:52 Consult Rx Perform Med Rec 1 each MISCELLANE ONCE PRN 08/22/20 08:01 B Type Natriuretic Peptide Stat Basic Metabolic Panel Stat D Dimer Stat Liver Panel Stat Magnesium Stat Partial Thromboplastin Time Stat Prothrombin Time INR Stat Thyroid Stimulating Hormone Stat Troponin-I High Sensitivity Stat 08/22/20 08:03 Complete Blood Count Auto Diff Stat 08/22/20 08:41 CT angio chest PE protocol Stat 08/22/20 11:00 iohexoL 350 MG/ML [Omnipaque 350 MG/ML] 100 ml IV ONCE ONE 08/22/20 11:45 Enoxaparin Sodium [Lovenox] 85 mg SUBCUT ONCE ONE 08/22/20 11:51 COVID-19 ID NOW (Garcia) Stat 08/22/20 14:13 Transfer Order Routine 08/22/20 17:07 EKG Documentation DIRECTED 08/22/20 17:15 0.9 % Sodium Chloride [Ns] 1,000 ml IVCONT 100 mls/hr 08/23/20 US venous duplex LE BI Stat 08/23/20 05:42 Basic Metabolic Panel DAILY@0600 Complete Blood Count Auto Diff DAILY@0600 08/23/20 12:15 Prothrombin Time INR Routine 08/24/20 05:31 Basic Metabolic Panel DAILY@0600 Complete Blood Count no Diff DAILY@0600 Laboratory Last Values WBC 5.4 X10*3/uL (4.8-10.8) 08/24/20 05:31 RBC 3.72 X10*6/uL (4.60-5.80) L 08/24/20 05:31 Hgb 12.1 g/dl (14.0-18.0) L 08/24/20 05:31 Hct 36.3 % (42-52) L 08/24/20 05:31 MCV 97.6 fL (80-98) 08/24/20 05:31 MCH 32.5 pg (27.0-33.0) 08/24/20 05:31 MCHC 33.3 g/dl (31.0-36.0) 08/24/20 05:31 RDW 13.0 % (11.0-16.0) 08/24/20 05:31 Plt Count 176 X10*3/uL (160-400) 08/24/20 05:31 MPV 9.0 fL (9.4-12.4) L 08/24/20 05:31 Immature Gran % (Auto) 0.2 % (0.0-0.4) 08/23/20 05:42 Neut % (Auto) 57.1 % (45-73) 08/23/20 05:42 Lymph % (Auto) 25.8 % (20-40) 08/23/20 05:42 Crook % (Auto) 14.0 % (2-11) H 08/23/20 05:42 Eos % (Auto) 2.1 % (0-4) 08/23/20 05:42 Baso % (Auto) 0.8 % (0-2) 08/23/20 05:42 Lymph # (Auto) 1.4 X10*3/uL (1.2-4.9) 08/23/20 05:42 Crook # (Auto) 0.7 X10*3/uL (0.1-1.2) 08/23/20 05:42 Eos # (Auto) 0.1 X10*3/uL (0.0-0.4) 08/23/20 05:42 Baso # (Auto) 0.0 X10*3/uL (0.0-0.2) 08/23/20 05:42 Abs Immat Gran (auto) 0.01 X10*3/uL (0.00-0.03) 08/23/20 05:42 Absolute Neuts (auto) 3.0 X10*3/uL (2.0-8.3) 08/23/20 05:42 Absolute Nucleated RBC 0.000 X10*3/uL (0.0-0.012) 08/24/20 05:31 Nucleated RBC % (auto) 0.0 /100WBC (0.0-0.2) 08/24/20 05:31 PT 20.7 SEC (10.8-13.0) H D 08/23/20 12:15 INR 1.7 (0.9-1.1) H 08/23/20 12:15 APTT 30.5 SEC (24.1-38.0) 08/22/20 08:01 D-Dimer 503 NG/ML 08/22/20 08:01 Sodium 141 mmol/L (135-145) 08/24/20 05:31 Potassium 4.2 mmol/l (3.3-5.1) 08/24/20 05:31 Chloride 111 mmol/L (96-108) H 08/24/20 05:31 Carbon Dioxide 25 mmol/L (22-29) 08/24/20 05:31 Anion Gap 9 (12-20) L 08/24/20 05:31 BUN 23 mg/dL (9-16) H 08/24/20 05:31 Creatinine 0.91 mg/dL (0.5-1.4) 08/24/20 05:31 Estim Creat Clear Calc 72.4 08/24/20 05:31 Estimated GFR > 60 08/24/20 05:31 Random Glucose 99 mg/dL (60-115) 08/24/20 05:31 Calcium 8.1 mg/dL (8.4-10.2) L D 08/24/20 05:31 Magnesium 1.8 mg/dL (1.6-2.6) 08/22/20 08:01 Total Bilirubin 0.4 mg/dL (0.0-1.0) 08/22/20 08:01 Direct Bilirubin < 0.2 mg/dL (0.0-0.5) 08/22/20 08:01 AST 22 U/L (5-37) 08/22/20 08:01 ALT 23 U/L (0-40) 08/22/20 08:01 Alkaline Phosphatase 104 U/L (39-117) 08/22/20 08:01 Troponin I High Sens < 3.5 ng/L (<3.5-35.0) 08/22/20 08:01 B-Natriuretic Peptide Cancelled 08/22/20 08:03 Total Protein 6.5 g/dL (6.5-8.0) 08/22/20 08:01 Albumin 3.9 g/dL (3.5-5.0) 08/22/20 08:01 TSH 1.49 uIU/mL (0.32-4.0) 08/22/20 08:01 COVID-19 (KIMO) Negative (Negative) 08/22/20 11:51 COVID-19 Clin Com See Note 08/22/20 11:51 Preliminary micro results at discharge 08/22/20 09:09 Blood Culture - Preliminary Blood - Venous No growth after 48 hours. 08/22/20 08:54 Blood Culture - Preliminary Blood - Venous No growth after 48 hours. Discharge Plan Discharge Patient Disposition: Home, Self-Care Referrals: Marichuy Castano MACHINE SET UP [Primary Care Provider] - Discharge Medications: New Eliquis 5 mg Tablet 10 mg PO Q12H Qty: 16 RF: 0 Eliquis 5 mg tablet 5 mg PO BID Qty: 60 RF: 0 Continued olanzapine 10 mg tablet 20 mg PO BEDTIME RF: 0 trazodone 100 mg tablet 200 mg PO BEDTIME RF: 0 oxybutynin chloride 5 mg tablet 5 mg PO DAILY RF: 0 finasteride 5 mg tablet 5 mg PO DAILY RF: 0 doxazosin 2 mg tablet 2 mg PO DAILY RF: 0 duloxetine 60 mg capsule,delayed release(DR/EC) 60 mg PO DAILY RF: 0 Discharge Orders: Discharge Order (Routine); Ordered 08/24/20 Ordered By: Leena Velasquez Diet: advance to usual diet Activity on Discharge: As tolerated Visit Report Forms: Patient Portal Discharge page Care Plan Goals: Read below Health Concerns: Read below Plan of Treatment: You have presented to the hospital for evaluation of rapid heart rate in some difficulty breathing. Evaluation in the emergency showed a clots in your lung requiring blood thinners treatment. Continue Eliquis 10 mg twice daily for 4 more days After that continue Eliquis 5 mg twice daily Continue physical therapy with [facility] team To follow-up with PCP within 2 weeks Please come back to the emergency for any increased lethargy, black stool or blood with stool.
--- NOTE | 2020-08-24 16:45 | P.PNIM_ITS ---
Subjective Subjective Date of Service: 08/24/20 Interval History: the patient was seen and evaluated this morning Laying in bed, feels comfortable Denies any fever, chills or shortness of breath No reported other overnight events. Systemic review: No fever, chills or weakness No chest pain, palpitation No shortness of breath or coughing No abdominal pain, nausea or vomiting No urinary symptoms No any rash or wounds Physical Exam 2 Vital Signs: Vital Signs: Last Vital Signs Temp 97.2 F 08/24/20 11:24 Pulse 96 08/24/20 11:24 Resp 20 08/24/20 11:24 BP 110/64 08/24/20 11:24 Pulse Ox 95 08/24/20 11:24 Body Mass Index 25.8 Constitutional : Alert, oriented, not in distress Neck : Normal inspection, Supple Cardiovascular : RRR, S1 S2, no lower extremity edema Respiratory : Good bilateral air entry, no crackles, wheezes or rhonchi Gastrointestinal: soft, lax, Normal bowel sounds, Non tender Skin : Warm/Dry, No rash Neurological : Alert & oriented x3, No focal deficit Const: Other: Last Vital Signs Temp 97.2 F 08/24/20 11:24 Pulse 96 08/24/20 11:24 Resp 20 08/24/20 11:24 BP 110/64 08/24/20 11:24 Pulse Ox 95 08/24/20 11:24 Body Mass Index 25.8 Cardio: Other: Last Vital Signs Temp 97.2 F 08/24/20 11:24 Pulse 96 08/24/20 11:24 Resp 20 08/24/20 11:24 BP 110/64 08/24/20 11:24 Pulse Ox 95 08/24/20 11:24 Body Mass Index 25.8 Objective Data Current Medications Generic Name Dose Route Start Last Admin Trade Name Freq PRN Reason Stop Dose Admin Acetaminophen 650 mg 08/22/20 15:19 Acetaminophen 325 Mg Tablet PO Q6H PRN Pain, Mild (Pain Scale 1-3) Apixaban 10 mg 08/22/20 23:00 08/24/20 10:44 Apixaban 5 Mg Tablet PO 10 mg Q12H ROMMEL Administration Docusate Sodium 100 mg 08/22/20 15:19 Docusate Sodium 100 Mg Capsule PO DAILY PRN Constipation Doxazosin Mesylate 2 mg 08/23/20 09:00 08/24/20 08:18 Doxazosin Mesylate 2 Mg Tablet PO 2 mg DAILY ROMMEL Administration Protocol Duloxetine HCl 60 mg 08/23/20 09:00 08/24/20 08:18 Duloxetine Hcl 60 Mg Capsule.Dr PO 60 mg DAILY ROMMEL Administration Finasteride 5 mg 08/23/20 09:00 08/24/20 08:19 Finasteride 5 Mg Tablet PO 5 mg DAILY ROMMEL Administration Olanzapine 20 mg 08/22/20 21:00 08/23/20 21:34 Olanzapine 10 Mg Tablet PO 20 mg BEDTIME ROMMEL Administration Ondansetron HCl 4 mg 08/22/20 15:19 Ondansetron Hcl 4 Mg/2 Ml Vial IVPUSH Q8H PRN Nausea and Vomiting Oxybutynin Chloride 5 mg 08/23/20 09:00 08/24/20 08:19 Oxybutynin Chloride Er 5 Mg Tab.Er.24 PO 5 mg DAILY ROMMEL Administration Sodium Chloride 3 ml 08/22/20 16:00 08/24/20 15:37 0.9 % Sodium Chloride Flush 3 Ml Syringe IVFLUSH 3 ml QSHIFT ROMMEL Administration Trazodone HCl 200 mg 08/22/20 21:00 08/23/20 21:33 Trazodone Hcl 100 Mg Tablet PO 200 mg BEDTIME ROMMEL Administration Labs CBC & Chem 7: 08/24/20 05:31 08/24/20 05:31 Microbiology Microbiology Results: Microbiology 08/22/20 09:09 Blood - Venous Blood Culture - Preliminary No growth after 48 hours. 08/22/20 08:54 Blood - Venous Blood Culture - Preliminary No growth after 48 hours. Assessment and Plan (1) Pulmonary embolism: Status: Acute Assessment and Plan: this is a 75-year-old male with history of severe depression, BPH, GERD who was sent from ECT due to tachycardi PE CTA showed solitary segmental pulmonary embolus RUL US showed no DVT trop and BNP negative Continue with Eliquis Physical deconditioning Reports generalized weakness and fatigue for SNF placement. mood disorder continue duloxetine, olanzapine, trazodone DVT prophylaxis Eliquis
[2020-08-24] MEDS: traZODone HCL 100 MG TABLET 200 MG PO (21:18)
[2020-08-24] MEDS: OLANZapine 10 MG TABLET 20 MG PO (21:19)
[2020-08-25 03:16] VITALS: BP 113/70; PULSE 68; RESP 16; TEMP 36.3; O2SAT 96
[2020-08-25 07:53] VITALS: BP 125/81; PULSE 86; RESP 18; TEMP 36.4; O2SAT 93
--- NOTE | 2020-08-25 08:49 | MHC.CM.PN ---
Per CM notes, pts discharge was postponed yesterday because the pts [facility] was unable to obtain his new medications. Per CM notes, the prescriptions were faxed to [facility] yesterday with a plan to have them delivered to the [facility] this morning. SANDI spoke to Yadira at [facility] ([phone])at 0845 hours. Yadira reports they have not yet received the pts new meds from [facility]. CM phone number provided and Yadira reports she will call when the meds are delivered.
[2020-08-25] MEDS: 0.9 % Sodium Chloride Flush 3 ML SYRINGE IVFLUSH (09:05)
[2020-08-25] MEDS: Doxazosin Mesylate 2 MG TABLET PO (09:05)
[2020-08-25] MEDS: Apixaban 5 MG TABLET 10 MG PO (09:06)
[2020-08-25] MEDS: DULoxetine HCl 60 MG CAPSULE.DR PO (09:06)
[2020-08-25] MEDS: Finasteride 5 MG TABLET PO (09:06)
[2020-08-25 11:33] VITALS: BP 134/78; PULSE 94; RESP 18; TEMP 36.6; O2SAT 98
--- NOTE | 2020-08-25 13:35 | MHC.CM.PN ---
SANDI CONTACTED [facility] AT [facility] 1100 HOURS TO ENSURE THE PTS NEW MEDS WOULD BE DELIVERED TODAY. SANDI SPOKE TO RANDY WHO REPORTED THEY WERE UNABLE TO FILL THE RX BECAUSE IT NEEDED PA. SANDI THEN SPOKE TO THE PHARMACIST WHO REPORTED SHE MAY BE ABLE TO GET IT COVERED. SANDI PROVIDED THE 30 FREE TRIAL COUPON INFO AND PTS PHARMACISTS, RACHEL, REPORTED SHE WOULD BE ABLE TO FILL IT AND WOULD START WORKING ON IT THEN. SANDI CALLED [facility] BACK AROUND [phone] AND CONFIRMED WITH RANDY THAT THE PTS MEDS WOULD DEFINITELY BE DELIVERED TO THE [facility] TODAY
--- NOTE | 2020-08-25 15:08 | MHC.CM.PN ---
SANDI received a call from Yadira at [facility] who reported they received the pts new medications and were ready for his return. SANDI arranged for chair van transport and spoke to dispatch at [facility]. SANDI was informed the crew had one call ahead of this one and then would be here to transport pt. SANDI called pts daughter, Brenda ([phone]) and informed her of the above information. Pt returning to [facility] today via Ambulance covering for [facility]
--- NOTE | 2020-08-25 15:48 | PC.NURSE ---
pt has been very anxious about his return to assisted living and medications he will be taking when there. Case management has addressed issues with pt but he continues to need support. Pt has dressed, needed minimal assistance and was ambulatory to bathroom with steady gait. He awaits ambulance transport to assisted living.
== END 2020-08-25 15:45 | disposition home or self-care (01) | DRG 176 ==
LOC: HO.ED 11:45 → HO.IMC 14:38
PROVIDERS: Physician Assistant Medical; Student in an Organized Health Care Education/Training Program; Admitting Provider Internal Medicine; Emergency Provider Emergency Medicine; PCP Nurse Practitioner Family; Visit Provider Internal Medicine
DX: I26.99 Other pulmonary embolism without acute cor pulmonale (principal); F32.9 Major depressive disorder, single episode, unspecified; F03.90 Unspecified dementia, unspecified severity, without behavioral disturbance, psychotic disturbance, mood disturbance, and anxiety; Z20.828 Contact with and (suspected) exposure to other viral communicable diseases; Z79.899 Other long term (current) drug therapy
CPT/HCPCS: 36415; 71045; 71275; 80048; 80076; 83735; 83880; 84443; 84484; 85025; 85027; 85379; 85610; 85730; 87040; 87635; 93005; 93970; 96372; 97110; 97116; 97162; 99285; J1650; Q9967

== ENCOUNTER 2020-09-07 06:20 | Day surgery (SDC) | payer MEDICARE, OTHER, SELFPAY | END 2020-09-07 23:59 | LOC: HO.SSS 06:20 | PROVIDERS: Visit Provider Psychiatry & Neurology Psychiatry | DX: F32.9 Major depressive disorder, single episode, unspecified (principal); Z53.9 Procedure and treatment not carried out, unspecified reason ==

== ENCOUNTER 2020-10-01 07:14 | Day surgery (SDC) | payer MEDICARE, SELFPAY ==
[2020-10-01 07:32] VITALS: BP 146/93; PULSE 133; RESP 16; TEMP 37; O2SAT 96
[2020-10-01 07:47] VITALS: BMI 26.1
--- NOTE | 2020-10-01 08:13 | PC.NURSE ---
Procedure cancelled and pt sent to ED. Deven at [facility] notified that pt currently in ER and that if medically cleared, Dr Sims is recommending admission to .
--- NOTE | 2021-04-03 11:17 | P.DS_ITS ---
DS: Providers Provider Date of Service: 10/07/20 Date of admission: 10/03/21 Date of discharge: 10/07/20 Primary care physician: Marichuy Castano NP Admitting clinician: Cooper Molina Attending physician on admission: Cooper Molina Consults: had medical consult was dced to medical unit due to deteriiorating medical condition/ s/p fall in bathroom had CT scan of head transferred to medical unit for further observatin discussed with dr berger DS: Diagnosis Discharge Diagnosis (1) Depression: Status: Acute Problem details: requiring ECT DS: Medications Discharge Medications Home Medications: Previous Rx's Medication Instructions Recorded Eliquis 5 mg PO BID #60 tab 10/30/20 Viibryd 10 mg PO DAILY 30 Days #30 tab 10/30/20 atorvastatin 80 mg PO BEDTIME #30 tab 10/30/20 docusate sodium [Colace] 100 mg PO BID 60 Days #120 cap 10/30/20 ferrous sulfate 325 mg PO DAILY 30 Days #30 tab 10/30/20 finasteride 5 mg PO DAILY 30 Days #30 tab 10/30/20 olanzapine 2.5 mg PO BID PRN 30 Days #60 tab 10/30/20 olanzapine 10 mg PO BEDTIME 30 Days #30 tab 10/30/20 omeprazole 40 mg PO BID@0630,1630 30 Days #60 10/30/20 cap oxybutynin chloride 5 mg PO DAILY 30 Days #30 tab 10/30/20 polyethylene glycol 3350 [Miralax] 17 g PO DAILY 30 Days ea 10/30/20 trazodone 50 mg PO BEDTIME 30 Days #30 tab 10/30/20 Eliquis 5 mg PO BID 30 Days #60 tab 11/07/20 Viibryd 10 mg PO DAILY #30 tab 11/07/20 atorvastatin 80 mg PO BEDTIME 30 Days #30 tab 11/07/20 olanzapine 10 mg PO BEDTIME #30 tab 11/07/20 Discharge Plan Discharge Patient Disposition: [facility] Swing Bed Discharge Medications: No Action olanzapine 10 mg Tablet 10 mg PO BEDTIME 30 Days Qty: 30 RF: 0 olanzapine 2.5 mg Tablet 2.5 mg PO BID PRN (Reason: Anxiety) 30 Days Qty: 60 RF: 0 Viibryd 10 mg Tablet 10 mg PO DAILY 30 Days Qty: 30 RF: 0 omeprazole 40 mg Capsule,Delayed Release(Dr/Ec) 40 mg PO BID@0630,1630 30 Days Qty: 60 RF: 0 atorvastatin 80 mg Tablet 80 mg PO BEDTIME Qty: 30 RF: 0 trazodone 50 mg Tablet 50 mg PO BEDTIME 30 Days Qty: 30 RF: 0 polyethylene glycol 3350 [Miralax] 17 gram Powder In Packet 17 g PO DAILY 30 Days RF: 0 ferrous sulfate 325 mg (65 mg iron) Tablet 325 mg PO DAILY 30 Days Qty: 30 RF: 0 docusate sodium [Colace] 100 mg Capsule 100 mg PO BID 60 Days Qty: 120 RF: 0 oxybutynin chloride 5 mg tablet 5 mg PO DAILY 30 Days Qty: 30 RF: 0 finasteride 5 mg Tablet 5 mg PO DAILY 30 Days Qty: 30 RF: 0 Eliquis 5 mg tablet 5 mg PO BID Qty: 60 RF: 0 Eliquis 5 mg Tablet 5 mg PO BID 30 Days Qty: 60 RF: 0 atorvastatin 80 mg Tablet 80 mg PO BEDTIME 30 Days Qty: 30 RF: 0 Viibryd 10 mg tablet 10 mg PO DAILY Qty: 30 RF: 0 olanzapine 10 mg tablet 10 mg PO BEDTIME Qty: 30 RF: 0 Discharge Orders: Discharge Order (Routine); Ordered 04/03/21 Ordered By: Mami Deleon Discharge Date/Time: 10/01/20 23:59 Mental Status Exam Mental Status Exam Narrative: see consult note dated 10/07/20 Data Data Completed and Pending Completed studies during hospitalization [Text1]: CT scan , labs egk Additional Comments Additional comments: welcome back to psychiatry when medically cleared DS: Summary Time Spent with Patient Time attestation: Pt fell early 10/07/20, had been admitted for catatonic like depression pending ECT , fell in [place] , ? hit head, had CT scan and transfered to medical unit for further observation
== END 2020-10-01 23:59 ==
LOC: HO.SSS 07:16
PROVIDERS: PCP Nurse Practitioner Family; Visit Provider Psychiatry & Neurology Psychiatry
DX: F33.3 Major depressive disorder, recurrent, severe with psychotic symptoms (principal); Z53.9 Procedure and treatment not carried out, unspecified reason; I10 Essential (primary) hypertension

== ENCOUNTER 2020-10-01 08:07 | Inpatient (IN) | payer MEDICARE, OTHER, SELFPAY ==
[2020-10-01 08:14] VITALS: BP 130/75; PULSE 98; RESP 16; TEMP 36.9; O2SAT 96; BMI 26.1
--- NOTE | 2020-10-01 08:39 | XR_ITS ---
EXAMINATION: XR CHEST CLINICAL INFORMATION: Chest pain, tachycardia. Rule out pneumonia. COMPARISON: CTA chest TECHNIQUE: Frontal view of the chest was obtained. FINDINGS: The lungs are somewhat expanded with prominent reticular interstitial changes in both lungs with focal opacity left lung base likely consolidation. The heart size and pulmonary vascularity is normal. No gross bony abnormality seen. XR/XR chest 1V IMPRESSION: Prominent bilateral reticular interstitial changes with focal consolidation left lung base.
--- NOTE | 2020-10-01 08:39 | ECG_ITS ---
Test Reason : CHEST PAIN Blood Pressure : / mmHG Vent. Rate : 099 BPM Atrial Rate : 099 BPM P-R Int : 166 ms QRS Dur : 086 ms QT Int : 356 ms P-R-T Axes : -04 -34 014 degrees QTc Int : 456 ms Normal sinus rhythm Left axis deviation Abnormal ECG When compared with ECG of 22-AUG-2020 07:11, No significant change was found Referred By: Adebayo Hernandez Electronically Signed By:ZORA TILLMAN
--- NOTE | 2020-10-01 08:41 | ED_ITS ---
HPI - General Adult General Chief complaint: General Medical Stated complaint: high heart rate Time Seen by Provider: 10/01/20 08:28 Source: patient Mode of arrival: wheelchair Limitations: no limitations History of Present Illness HPI narrative: 75-year-old male who came to the hospital today for ECT treatment for depression, he was found to be tachycardic prior to the procedure with a heart rate of 130, he appeared to be weak and minimally responsive therefore he was sent to the emergency department for evaluation. The patient does have a history of depression, SVT and he was recently diagnosed with pulmonary embolism 08/22/2020 and was started on Eliquis. The patient answers questions minimally here in the emergency department however he is oriented to person and place. He states that he is feeling weak and depressed but has no other complaints. He denied chest pain, shortness of breath, cough, abdominal pain, change in his bowel movements, frequency, urgency or dysuria. The patient states today lives in assisted living situation and states that he is compliant with his medications. Related Data Home Medications Medication Instructions Recorded Confirmed doxazosin 2 mg PO DAILY 07/26/20 09/13/20 duloxetine 60 mg PO DAILY 07/26/20 09/13/20 finasteride 5 mg PO DAILY 07/26/20 09/13/20 olanzapine 20 mg PO BEDTIME 07/26/20 09/13/20 oxybutynin chloride 5 mg PO DAILY 07/26/20 09/13/20 trazodone 200 mg PO BEDTIME 07/26/20 09/13/20 docusate sodium [Colace] 100 mg PO BID 09/13/20 09/13/20 polyethylene glycol 3350 [Miralax] 17 g PO DAILY 09/13/20 09/13/20 Previous Rx's Medication Instructions Recorded apixaban [Eliquis] 5 mg PO BID #60 tab 08/24/20 Allergies Allergy/AdvReac Type Severity Reaction Status Date / Time No Known Allergies Allergy Verified 10/01/20 08:19 [No Known Allergies*] Review of Systems Review of Systems: Yes all other systems are reviewed and are negative Constitutional: Constitutional: Reports as per HPI Eyes: Eyes: Reports as per HPI ENT: Reports as per HPI Cardiovascular: Cardiovascular: Reports as per HPI Respiratory: Respiratory: Reports as per HPI Gastrointestinal: Gastrointestinal: Reports as per HPI Genitourinary: Genitourinary: Reports as per HPI Musculoskeletal: Musculoskeletal: Reports as per HPI Integumentary/Breasts: Skin/Breast: Reports as per HPI Neurologic: Reports as per HPI Psychiatric: Psychiatric: Reports as per HPI Allergic/Immunologic: Allergic/Immunologic: Reports as per HPI [facility] Past Medical History Medical History Dementia Depression Diverticulitis of colon with perforation GERD (gastroesophageal reflux disease) HTN (hypertension) Hyperlipidemia SVT (supraventricular tachycardia) Surgical History H/O hernia repair History of colostomy reversal Status post Paula's procedure Family History Family History Brother Blood clot in vein Other No history of cardiac disorder Social History Social History Household Members: None Housing: Assisted Living Facility Alcohol intake: former Smoking Status: Unknown if ever smoked Second Hand Smoke Exposure: No Use of substances other than those prescribed or required for medical reasons: No Advance Directives: Yes Advance Directives on File: Yes Advance Directives Date on File: 07/27/20 service: No Current occupational status: retired Physical Exam Vital Signs: Vital Signs: Last Vital Signs Temp 98.4 F 10/01/20 08:14 Pulse 100 10/01/20 10:00 Resp 16 10/01/20 10:00 BP 119/80 10/01/20 10:00 Pulse Ox 95 10/01/20 10:00 Body Mass Index 26.1 Const: General: cooperative, poor hygiene and other Nutritional Appearance: well nourished Orientation/consciousness: oriented to person and oriented to place Limitations: behavioral limitations (Patient has a very flat affect, answers questions minimally but appropriate) HENMT: Head: Yes normal to inspection, Yes normocephalic and Yes atraumatic Ears: external ears normal General nose exam: Normal external nose present Face and sinus: Yes normal facial exam Mouth: Normal oral and palatal mucosa present Throat: Yes posterior oropharynx normal Eyes: Periorbital: periorbital findings normal Eyelids: Yes eyelids normal Conjunctivae: conjunctivae normal Sclerae: sclerae normal Corneas: corneas normal Pupils: Equal, round and reactive pupils present Direct Ophthalmoscopy: normal light reflex Neck: Neck: Yes full ROM, Yes no lymphadenopathy, Yes no meningeal signs, Yes trachea midline and Yes supple Chest: Chest palpation & inspection: normal inspection of the chest and normal palpation of entire chest wall Resp: Effort & Inspection: normal respiratory effort and able to speak in complete sentences Auscultation: clear to auscultation bilaterally Cardio: Rate: regular rate Rhythm: regular rhythm Heart sounds: S1 normal heart sound present, S2 normal heart sound present and no murmurs GI: Inspection: Yes normal to inspection Palpation (GI): Soft to palpation, nontender, no guarding, not rigid and No hepatosplenomegaly present : General: Yes no CVA tenderness Back/Spine/Pelvis: Back: no CVA tenderness Cervical Spine: normal cervical lordosis Thoracic/Lumbar Spine: thoracic and lumbar spine normal to ins pection Skin: Lesions: no lesions Rashes: no rashes Wounds: no wounds Neuro: General: oriented to person, oriented to place and no meningeal signs Cranial nerves: Yes Equal, round and reactive pupils present Cognition (Neuro): normal cognition Motor exam (neuro): Other motor observations present (Moves all extremities symmetrically, appears to be weak) Extrem: General: Yes normal to inspection and Yes full ROM Psych: Appearance: disheveled Mental Status: mental status grossly normal Affect: Sad affect present and Other affect and mood findings present (Flat aspect) Attitude: cooperative Thought process: Normal thought process present Thought content: Normal thought content present Course Course Course Narrative: 75-year-old male who presented to emergency department for evaluation tachycardia and weakness. Patient was scheduled to get ECT today but was found to have a heart rate of 130 and appeared weak therefore he was referred to the emergency department for evaluation. On presentation, the patient appears to be unkempt and disheveled, he is slow to answer questions but does answer appropriately. His vital signs at this time are stable with no tachycardia. I did order a cardiac workup on this patient. 1044: The patient's laboratory evaluation revealed mild anemia with an H&H of 11.9 and 35.3. Glucose was slightly elevated at 131. The patient's COVID-19 test was negative. The patient's influenza and RSV tests were negative as well. At this time I believe that the patient's symptoms are more likely related to his psychiatric conditions and I think that he is medically cleared to be evaluated by crisis for possible inpatient admission. Medical Decision Making Lab Data Result diagrams: 10/01/20 08:59 10/01/20 08:59 Labs: Lab Results 10/01/20 10/01/20 10/01/20 Range/Units 08:59 08:59 08:59 WBC 5.1 (4.8-10.8) X10*3/uL RBC 3.68 L (4.60-5.80) X10*6/uL Hgb 11.9 L (14.0-18.0) g/dl Hct 35.3 L (42-52) % MCV 95.9 (80-98) fL MCH 32.3 (27.0-33.0) pg MCHC 33.7 (31.0-36.0) g/dl RDW 13.0 (11.0-16.0) % Plt Count 197 (160-400) X10*3/uL MPV 8.7 L (9.4-12.4) fL Immature Gran % (Auto) 0.2 (0.0-0.4) % Neut % (Auto) 80.3 H (45-73) % Lymph % (Auto) 10.1 L (20-40) % [place] % (Auto) 8.0 (2-11) % Eos % (Auto) 1.2 (0-4) % Baso % (Auto) 0.2 (0-2) % Lymph # (Auto) 0.5 L (1.2-4.9) X10*3/uL [place] # (Auto) 0.4 (0.1-1.2) X10*3/uL Eos # (Auto) 0.1 (0.0-0.4) X10*3/uL Baso # (Auto) 0.0 (0.0-0.2) X10*3/uL Abs Immat Gran (auto) 0.01 (0.00-0.03) X10*3/uL Absolute Neuts (auto) 4.1 (2.0-8.3) X10*3/uL Absolute Nucleated RBC 0.000 (0.0-0.012) X10*3/uL Nucleated RBC % (auto) 0.0 (0.0-0.2) /100WBC Smear Tech's Comments VERIFIED Sodium 141 (135-145) mmol/L Potassium 4.1 (3.3-5.1) mmol/l Chloride 109 H (96-108) mmol/L Carbon Dioxide 24 (22-29) mmol/L Anion Gap 12 (12-20) BUN 26 H (9-16) mg/dL Creatinine 1.15 (0.5-1.4) mg/dL Estim Creat Clear Calc 57.2 Estimated GFR > 60 Random Glucose 131 H (60-115) mg/dL Calcium 8.2 L (8.4-10.2) mg/dL Total Bilirubin 0.3 (0.0-1.0) mg/dL AST 23 (5-37) U/L ALT 20 (0-40) U/L Alkaline Phosphatase 97 (39-117) U/L Troponin I High Sens < 3.5 (<3.5-35.0) ng/L Total Protein 5.7 L (6.5-8.0) g/dL Albumin 3.5 (3.5-5.0) g/dL Lipase 35 (8-78) U/L Coronavirus (PCR) (Negative) Influenza Type A (PCR) (Negative) Influenza Type B (PCR) (Negative) RSV RNA Qual (PCR) (Negative) 10/01/20 Range/Units 08:59 WBC (4.8-10.8) X10*3/uL RBC (4.60-5.80) X10*6/uL Hgb (14.0-18.0) g/dl Hct (42-52) % MCV (80-98) fL MCH (27.0-33.0) pg MCHC (31.0-36.0) g/dl RDW (11.0-16.0) % Plt Count (160-400) X10*3/uL MPV (9.4-12.4) fL Immature Gran % (Auto) (0.0-0.4) % Neut % (Auto) (45-73) % Lymph % (Auto) (20-40) % [place] % (Auto) (2-11) % Eos % (Auto) (0-4) % Baso % (Auto) (0-2) % Lymph # (Auto) (1.2-4.9) X10*3/uL [place] # (Auto) (0.1-1.2) X10*3/uL Eos # (Auto) (0.0-0.4) X10*3/uL Baso # (Auto) (0.0-0.2) X10*3/uL Abs Immat Gran (auto) (0.00-0.03) X10*3/uL Absolute Neuts (auto) (2.0-8.3) X10*3/uL Absolute Nucleated RBC (0.0-0.012) X10*3/uL Nucleated RBC % (auto) (0.0-0.2) /100WBC Smear Tech's Comments Sodium (135-145) mmol/L Potassium (3.3-5.1) mmol/l Chloride (96-108) mmol/L Carbon Dioxide (22-29) mmol/L Anion Gap (12-20) BUN (9-16) mg/dL Creatinine (0.5-1.4) mg/dL Estim Creat Clear Calc Estimated GFR Random Glucose (60-115) mg/dL Calcium (8.4-10.2) mg/dL Total Bilirubin (0.0-1.0) mg/dL AST (5-37) U/L ALT (0-40) U/L Alkaline Phosphatase (39-117) U/L Troponin I High Sens (<3.5-35.0) ng/L Total Protein (6.5-8.0) g/dL Albumin (3.5-5.0) g/dL Lipase (8-78) U/L Coronavirus (PCR) NEGATIVE (Negative) Influenza Type A (PCR) NEGATIVE (Negative) Influenza Type B (PCR) NEGATIVE (Negative) RSV RNA Qual (PCR) NEGATIVE (Negative) Discharge Plan Discharge Prescriptions: No Action olanzapine 10 mg tablet 20 mg PO BEDTIME RF: 0 trazodone 100 mg tablet 200 mg PO BEDTIME RF: 0 oxybutynin chloride 5 mg tablet 5 mg PO DAILY RF: 0 finasteride 5 mg tablet 5 mg PO DAILY RF: 0 doxazosin 2 mg tablet 2 mg PO DAILY RF: 0 duloxetine 60 mg capsule,delayed release(DR/EC) 60 mg PO DAILY RF: 0 Eliquis 5 mg tablet 5 mg PO BID Qty: 60 RF: 0 polyethylene glycol 3350 [Miralax] 17 gram Powder In Packet 17 g PO DAILY RF: 0 docusate sodium [Colace] 100 mg Capsule 100 mg PO BID RF: 0
--- NOTE | 2020-10-01 08:51 | PC.NURSE ---
This RN called [facility], pt to be seen in ED and medically admitted if needed but if medically cleared pt will eventually be admitted to [facility], Dr Hernandez aware
[2020-10-01 09:06] LABS: Basophils Percent Auto 0.2 % (0-2); Eosinophils Absolute Auto 0.1 X10*3/uL (0.0-0.4); Eosinophils Percent Auto 1.2 % (0-4); Hematocrit 35.3 % (42-52); Hemoglobin 11.9 g/dl (14.0-18.0); Imm Gran Abs Auto 0.01 X10*3/uL (0.00-0.03); Imm Gran Pct Auto 0.2 % (0.0-0.4); Lymphocytes Absolute Auto 0.5 X10*3/uL (1.2-4.9); Lymphocytes Percent Auto 10.1 % (20-40); MANUAL DIFF FLAG SCAN; Mean Corpuscular HGB Conc 33.7 g/dl (31.0-36.0); Mean Corpuscular Hemoglobin 32.3 pg (27.0-33.0); Mean Corpuscular Volume 95.9 fL (80-98); Mean Platelet Volume 8.7 fL (9.4-12.4); Monocytes Absolute Auto 0.4 X10*3/uL (0.1-1.2); Neutrophils Absolute Auto 4.1 X10*3/uL (2.0-8.3); Neutrophils Percent Auto 80.3 % (45-73); Platelet Count 197 X10*3/uL (160-400); Red Blood Count 3.68 X10*6/uL (4.60-5.80); SCAN SMEAR FLAG 1; White Blood Count 5.1 X10*3/uL (4.8-10.8)
[2020-10-01 09:22] LABS: SLIDE REVIEW VERIFIED
[2020-10-01 09:38] LABS: Alanine Aminotransferase 20 U/L (0-40); Albumin Level 3.5 g/dL (3.5-5.0); Alkaline Phosphatase 97 U/L (39-117); Anion Gap 12 (12-20); Aspartate Amino Transferase 23 U/L (5-37); Bilirubin Total 0.3 mg/dL (0.0-1.0); Blood Urea Nitrogen 26 mg/dL (9-16); Calcium 8.2 mg/dL (8.4-10.2); Carbon Dioxide 24 mmol/L (22-29); Chloride 109 mmol/L (96-108); Creatinine Clr Calc Pharmacy 57.2; Estimated Glomerular Filt Rate > 60; Glucose Random 131 mg/dL (60-115); Lipase 35 U/L (8-78); Potassium 4.1 mmol/l (3.3-5.1); Sodium 141 mmol/L (135-145); Total Protein 5.7 g/dL (6.5-8.0)
[2020-10-01 09:42] LABS: Troponin-I High Sensitivity < 3.5 ng/L (<3.5-35.0)
[2020-10-01 10:00] VITALS: BP 119/80; PULSE 100; RESP 16; O2SAT 95
[2020-10-01 10:09] LABS: Influenza A PCR NEGATIVE (Negative); Influenza B PCR NEGATIVE (Negative); Resp Syncy Virus RNA Qual PCR NEGATIVE (Negative); SARS COV2 PCR INHOUSE NEGATIVE (Negative)
--- NOTE | 2020-10-01 10:49 | PC.NURSE ---
Per Dr Hernandez pt medically cleared, CARE team ordereed
--- NOTE | 2020-10-01 10:52 | PC.NURSE ---
Medically cleared, CARE team aware.
[2020-10-01 11:54] VITALS: BP 130/82; PULSE 99; RESP 16; O2SAT 97
--- NOTE | 2020-10-01 13:50 | PC.NURSE ---
CARE Team at bedside
[2020-10-01 14:09] VITALS: BP 114/67; PULSE 100; RESP 16; O2SAT 97
--- NOTE | 2020-10-01 15:02 | PC.NURSE ---
Plan for [facility] admission tomorrow per vj.
--- NOTE | 2020-10-01 15:52 | PC.NURSE ---
Pt continues with flat affect, minimally answers questions asked. Periodically reports i just want to to Reassured with little change. Declines food offered but accepted dessert off lunch tray Up as needed to bathroom to void, will attempt to obtain urine spec on next attempt.
--- NOTE | 2020-10-01 17:06 | MHC.CARE ---
Pt evaluated by CARE team with disposition for inpt psychiatric admission, recommended by pt's outpatient psychatrist. Pt will remain ED until a bed becomes available on [facility], anticipated for tomorrow 10/02/20.
[2020-10-01 18:02] VITALS: BP 153/93; PULSE 97; RESP 18; TEMP 36.6; O2SAT 94
--- NOTE | 2020-10-01 18:54 | PC.NURSE ---
Spoke to daughter Brenda and updated contact [phone]
[2020-10-01] MEDS: Finasteride 5 MG TABLET PO (19:30)
[2020-10-01] MEDS: polyethylene glycoL 3350 17 GM POWD.PACK PO (19:30)
[2020-10-01] MEDS: DULoxetine HCl 60 MG CAPSULE.DR PO (19:30)
--- NOTE | 2020-10-01 19:37 | PC.NURSE ---
PT AWAKE AND DENIES ANY COMPLAINTS WITH SITTER AT BEDSIDE FOR SAFETY. PT IN NAD, CALM AND COOPERATIVE AT THIS TIME. RESPIRATIONS EASY, N/L. SKIN W/D. WILL CONTINUE TO MONITOR PT.
[2020-10-01] MEDS: Apixaban 5 MG TABLET PO (21:00)
[2020-10-01] MEDS: Docusate Sodium 100 MG CAPSULE PO (21:00)
[2020-10-01] MEDS: traZODone HCL 100 MG TABLET 200 MG PO (21:00)
[2020-10-01] MEDS: OLANZapine 10 MG TABLET 20 MG PO (21:06)
--- NOTE | 2020-10-01 21:06 | PC.NURSE ---
PT REMAINS ALERT, RESPIRATIONS N/L. SKIN W/D. PT WITH SITTER AT BEDSIDE.
--- NOTE | 2020-10-01 22:40 | PC.NURSE ---
PT RESTING IN STRETCHER W/O COMPLAINTS. PT AWAKE AND WATCHING TV WITH SITTER AT BEDSIDE FOR SAFETY. WILL CONTINUE TO MONITOR PT.
[2020-10-02] VITALS: BP 116/64; PULSE 92; RESP 16; O2SAT 98
--- NOTE | 2020-10-02 00:17 | PC.NURSE ---
PT RESTING IN STRETCHER AND STATES THERE IS NOTHING YOU CAN HELP ME WITH AT THIS TIME .
--- NOTE | 2020-10-02 02:30 | PC.NURSE ---
PT SLEEPING IN STRETCHER WITH SITTER AT BEDSIDE WITH PT. PT REMAINS CALM AND COOPERATIVE IN ED.
--- NOTE | 2020-10-02 04:00 | PC.NURSE ---
PT REMAINS CALM AND COOPERATIVE WITH SITTER AT BEDSIDE.
[2020-10-02 06:00] VITALS: BP 114/60; PULSE 88; RESP 16
--- NOTE | 2020-10-02 06:34 | PC.NURSE ---
PT DENIES COMPLAINTS, SITTER WITH PT AT BEDSIDE. WILL CONTINUE TO MONITOR PT.
--- NOTE | 2020-10-02 07:51 | PC.NURSE ---
pt needs to return to [facility] today, continues to have flat affect, didn't want to eat breakfast. calm and cooperative
--- NOTE | 2020-10-02 07:56 | PC.NURSE ---
Called [facility] to see when they could take pt back, will call back with answer currently in report. pt amb to br with 2 assist.
--- NOTE | 2020-10-02 08:09 | PC.NURSE ---
called pharm for procar
[2020-10-02] MEDS: Finasteride 5 MG TABLET PO (08:29)
[2020-10-02] MEDS: polyethylene glycoL 3350 17 GM POWD.PACK PO (08:29)
[2020-10-02 08:30] VITALS: BP 128/68; PULSE 84
[2020-10-02] MEDS: Doxazosin Mesylate 2 MG TABLET PO (08:30)
[2020-10-02] MEDS: Docusate Sodium 100 MG CAPSULE PO ×2 (08:30→21:36)
[2020-10-02] MEDS: Apixaban 5 MG TABLET PO ×2 (08:30→21:37)
[2020-10-02] MEDS: DULoxetine HCl 60 MG CAPSULE.DR PO (09:10)
[2020-10-02 16:31] VITALS: BP 106/72; PULSE 98; RESP 18; TEMP 37.2; O2SAT 93
--- NOTE | 2020-10-02 17:01 | PC.NURSE ---
PT UP FOR AMBULATION TRIAL, DENIES USE OF ACCESSORY DEVICES. AMBULATES WITH SUPERVISION, WALKING SLOWLY, SLIGHTLY UNSTEADY. ATTEMPTING TO GIVE REPORT TO [facility] RN. PT IN NAD AT THIS TIME
--- NOTE | 2020-10-02 17:59 | PC.NURSE ---
REPORT GIVEN TO [facility] RN, CALL TO BE RETURNED FOR EST. TIME FOR TRANSPORT
[2020-10-02 19:35] VITALS: BP 124/82; PULSE 100; RESP 18; O2SAT 94
[2020-10-02 20:18] VITALS: BP 101/67; PULSE 113; TEMP 36.7
--- NOTE | 2020-10-02 21:21 | PC.ADMIT ---
this is one of many admissions for this 75 year old male. initially when offered cv, declined to sign and arrived to with a section 12b. during assessment patient was offered a cv and signed form. was referred to from the ER via the CARE team. Although slow to respond is fully oriented. continual thoughts/verbalizations of hopelessness due to depression. during assessment patient drank 3 cups of ice water to assess intake and any difficulties. no issues identified. demonstrated the ability to get out of w/c, sit up from sitting position from both a chair and bed independently. appears to have experienced weight loss and hospital [facility] not fitting well, small are too small, large are too large and was able to verbally identify this. has already had flu shot. oriented.
[2020-10-02] MEDS: OLANZapine 10 MG TABLET 20 MG PO (21:36)
[2020-10-02] MEDS: traZODone HCL 100 MG TABLET 200 MG PO (21:36)
--- NOTE | 2020-10-03 01:24 | PC.NURSE ---
0030: Pt found sitting on bathroom floor, leaning on toilet. Pt unable to say what happened due to mental status. No injury noted. BP 116/67 T 99.[address] Mami Heaton notified via tiger text. Nursing field pipe lines supervisor also notified. Pt was assisted to bed and appears to be sleeping at present.
[2020-10-03 06:10] VITALS: BP 107/60; PULSE 118; RESP 18; TEMP 36.8; O2SAT 94
[2020-10-03 09:22] VITALS: BP 107/60; PULSE 118
[2020-10-03] MEDS: Docusate Sodium 100 MG CAPSULE PO ×2 (09:22→22:14)
[2020-10-03] MEDS: Apixaban 5 MG TABLET PO ×2 (09:22→22:14)
[2020-10-03] MEDS: Doxazosin Mesylate 2 MG TABLET PO (09:22)
[2020-10-03] MEDS: Finasteride 5 MG TABLET PO (09:22)
[2020-10-03] MEDS: polyethylene glycoL 3350 17 GM POWD.PACK PO (09:23)
--- NOTE | 2020-10-03 09:47 | P.HPPS_ITS ---
HPI Chief Complaint: worsening depression/ocd Sources of Information: patient interviewed, chart reviewed and crisis/core team assessment reviewed HPI Narrative: THE PATIENT IS A 75-YEAR-OLD MALE WELL KNOWN TO THIS PROGRAM ASSISTANT HISTORY OF PSYCHOTIC DEPRESSION WITH CATATONIA RESPONDS WELL TO ECT WAS REFERRED TO ER BY ANESTHESIA AND DR. MENDOSA AFTER SCHEDULED ECT WAS CANCELED ON 08/01. PATIENT WAS TACHYCARDIC WITHDRAWN INTERNALLY PREOCCUPIED AND WAS REFERRED FOR MEDICAL EVALUATION. HE WAS MEDICALLY EVALUATED IN THE EMERGENCY ROOM NOTED TO TACHYCARDIA ANEMIA PRESUMED TO BE STABLE SOME LUNG CONSOLIDATION WAS NOT TREATED FOR PNEUMONIA. HISTORY OF GOOD RESPONSE TO ECT HE HAS BEEN INCREASINGLY ISOLATED WITH THE PANDEMIC HE LIVES AT [facility]. PATIENT SEES DR. MENDOSA HE DOES GET MAINTENANCE ECT HE IS ON CYMBALTA ZYPREXA AND TRAZODONE PATIENT IS NOTED TO BE INCREASINGLY DEPRESSED INTERNALLY PREOCCUPIED MINIMAL INTERACTION AND ENGAGEMENT WEIGHT LOSS NOTED. PATIENT HAS DETERIORATED SINCE MISSING ECT SECONDARY TO PULMONARY EMBOLISM IN THE Past Psychiatric History: HISTORY OF PAST PSYCHIATRIC HOSPITALIZATIONS ON M 3 FOR RECURRENCE PSYCHOTIC DEPRESSION HAS RESPONDED WELL TO ECT Medical Evaluation Reviewed: Yes VITAL SIGNS PULSE OX REPORTEDLY STABLE NOTED TO HAVE ANEMIA HISTORY OF COLON CANCER [facility] Medical History Dementia Depression Diverticulitis of colon with perforation GERD (gastroesophageal reflux disease) HTN (hypertension) Hyperlipidemia SVT (supraventricular tachycardia) Surgical History H/O hernia repair History of colostomy reversal Status post Paula's procedure Social History: PATIENT'S PATIENT LIVES ALONE IN [facility] HOME HAS A STEPDAUGHTER WHO IS HEALTHCARE PROXY HAS [facility] BR[facility] A Substance History: NOT APPLICABLE Trauma History: NOT APPLICABLE Diagnostics Vital Signs (24Hr): Vital Signs - 24 hr 10/02/20 16:31 10/02/20 19:35 10/02/20 20:18 Temperature 98.9 F 98.0 F Pulse Rate 98 100 113 H Respiratory Rate 18 18 Blood Pressure 106/72 124/82 101/67 Pulse Oximetry 93 94 10/03/20 06:10 10/03/20 09:22 Temperature 98.3 F Pulse Rate 118 H 118 H Respiratory Rate 18 Blood Pressure 107/60 107/60 Pulse Oximetry 94 Body Mass Index 26.1 Labs Results: 12/28/20 08:59 10/01/20 08:59 Labs: Laboratory Results - last 48 hr 10/01/20 08:59 Coronavirus (PCR) NEGATIVE Influenza Type A (PCR) NEGATIVE Influenza Type B (PCR) NEGATIVE RSV RNA Qual (PCR) NEGATIVE Imaging Radiology Impressions: ITS Impressions Chest X-Ray 10/01/20 08:39 IMPRESSION: Prominent bilateral reticular interstitial changes with focal consolidation left lung base. Meds/Allergies Meds Home Medications Al Hydroxide/Mg Hydroxide (Magnesium Hydrox/Alum Hydrox 30 Ml Oral.Susp) 30 ml PO Q6H PRN PRN Reason: Heartburn/Nausea Apixaban (Apixaban 5 Mg Tablet) 5 mg PO BID [facility] Last Admin: 10/03/20 09:22 Dose: 5 mg Documented by: Docusate Sodium (Docusate Sodium 100 Mg Capsule) 100 mg PO BID [facility] Last Admin: 10/03/20 09:22 Dose: 100 mg Documented by: Doxazosin Mesylate (Doxazosin Mesylate 2 Mg Tablet) 2 mg PO DAILY [facility]; Protocol Last Admin: 10/03/20 09:22 Dose: 2 mg Documented by: Duloxetine HCl (Duloxetine Hcl 60 Mg Capsule.Dr) 60 mg PO DAILY [facility] Last Admin: 10/02/20 09:10 Dose: 60 mg Documented by: Finasteride (Finasteride 5 Mg Tablet) 5 mg PO DAILY [facility] Last Admin: 10/03/20 09:22 Dose: 5 mg Documented by: Lorazepam (Lorazepam 0.5 Mg Tablet) 0.5 mg PO TID [facility] Olanzapine (Olanzapine 10 Mg Tablet) 20 mg PO BEDTIME [facility] Last Admin: 10/02/20 21:36 Dose: 20 mg Documented by: Oxybutynin Chloride (Oxybutynin Chloride Er 5 Mg Tab.Er.24) 5 mg PO DAILY [facility] Last Admin: 10/03/20 09:22 Dose: 5 mg Documented by: Polyethylene Glycol (Polyethylene Glycol 3350 17 Gm Powd.Pack) 17 gm PO DAILY [facility] Last Admin: 10/03/20 09:23 Dose: 17 gm Documented by: Trazodone HCl (Trazodone Hcl 100 Mg Tablet) 100 mg PO BEDTIME [facility] Allergies Allergies Allergy/AdvReac Type Severity Reaction Status Date / Time No Known Allergies Allergy Verified 10/01/20 08:19 [No Known Allergies*] Mental Status Exam Mental Status Exam Narrative: PATIENT DISHEVELED WITHDRAWN SEVERELY DEPRESSED HOPELESS HELPLESS DIFFICULTY PROCESSING INFORMATION Patient Appearance: Disheveled and Unkempt Patient Orientation: Person and Place Level of Consciousness: Lethargic Patient Behavior: Passive, Restless, Anxious, Fearful and Avoidant Mood Description: Withdrawn, Depressed and Blunted Affect Description: Anxious, Blunted, Sad and Apprehensive Assessment & Plan Assessment & Plan (1) Physical deconditioning: Status: Acute Code(s): R53.81 - Other malaise (2) Major depressive disorder, recurrent, severe with psychotic features: Status: Acute Code(s): F33.3 - Major depressive disorder, recurrent, severe with psychotic symptoms Assessment and Plan: RECENT PULMONARY EMBOLISM MONITOR VITAL SIGNS ENCOURAGE FOOD AND FLUIDS PATIENT ON A ONE-TO-ONE IS T CONDITION POOR AMBULATION HAD A FALL LAST EVENING ON ADMISSION MONITOR FOR ORTHOSTATICS CHEST X-RAY NOTED CONSOLIDATION HEMATOCRIT DECREASED MED CONSULTATION FOR EVALUATION AND CONSIDERATION PREOP OF ECT WHICH HAS GENERALLY BEEN THE ONLY THING THAT HAS HELPED HIM WHEN HE IS BECOME THIS SEVERELY DEPRESSED WITHDRAWN PRE CATATONIC START LORAZEPAM 0.5 MG 3 TIMES A DAY FOR CATATONIC LIKE SYMPTOMS Patient educated on: diagnosis, medication risk/benefits and ECT Informed Consent: further education needed Reason for continued inpatient stay Substantial Risk for: inability to function, rapid decompensation and med/psych decompensation
[2020-10-03 12:50] VITALS: BP 104/62; PULSE 112; TEMP 36.8
[2020-10-03 20:00] VITALS: BP 112/57; PULSE 97; TEMP 36.9
[2020-10-03] MEDS: OLANZapine 10 MG TABLET 20 MG PO (22:12)
[2020-10-03] MEDS: traZODone HCL 100 MG TABLET PO (22:12)
[2020-10-03] MEDS: traZODone HCL 100 MG TABLET 200 MG PO (22:24)
--- NOTE | 2020-10-04 | CT_ITS ---
EXAMINATION: CT CHEST WITHOUT CONTRAST CLINICAL INFORMATION: Abnormal chest x-ray COMPARISON: Chest x-ray 10/01/2020. CT chest 08/22/2020, 11/19/2018 TECHNIQUE: Multidetector volumetric CT imaging of the chest was done. Axial MIP volume rendering provided. Sagittal and coronal reformatted images were obtained. This CT examination was performed using dose optimization techniques as appropriate, variously including the following: *Automated exposure control *Adjustment of mA and/or kV according to patient size (this includes techniques or standardized protocols for targeted exams where dose is matched to indication/reason for exam; i.e. extremities or head) *Use of iterative reconstruction technique DLP: 172 mGy-cm FINDINGS: LUNGS: Subpleural reticular markings at dependent lung bases consistent with atelectasis. There is no acute airspace opacities. There is no consolidation. There is no interstitial lung disease. No bronchiectasis. The central bronchial airways are open. Lung nodules: No significant lung nodule. MEDIASTINUM: There is a moderate-sized hiatal hernia. There is dilatation of the proximal thoracic esophagus. No mediastinal mass. No significant lymphadenopathy. Heart size is normal. There is a trace pericardial effusion. Moderate volume coronary artery calcifications. No aneurysm of aorta. Small volume of calcifications of the aortic arch PLEURA: There is no pleural effusion. There are scattered bilateral calcified pleural plaques. AXILLA: No lymphadenopathy. UPPER ABDOMEN: 2.7 cm exophytic cyst off the upper pole the right kidney. Visualized portions of liver, spleen, pancreas and adrenal glands are unremarkable. OSSEOUS STRUCTURES: Unremarkable. CT/CT chest wo con IMPRESSION: 1. No acute abnormality. No acute airspace opacities. Fine subpleural reticular opacities at dependent lung bases consistent with dependent atelectasis 2. 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 These are stable since CAT scan of 2018.
[2020-10-04 06:00] VITALS: BP 115/76; PULSE 91; TEMP 36.2; O2SAT 93
--- NOTE | 2020-10-04 08:00 | ECG_ITS ---
Test Reason : CP Blood Pressure : / mmHG Vent. Rate : 090 BPM Atrial Rate : 090 BPM P-R Int : 162 ms QRS Dur : 094 ms QT Int : 372 ms P-R-T Axes : 070 -41 020 degrees QTc Int : 455 ms Normal sinus rhythm with sinus arrhythmia Left axis deviation Abnormal ECG When compared with ECG of 01-OCT-2020 09:16, No significant change was found Referred By: Cooper Molina Electronically Signed By:ZORA TILLMAN
[2020-10-04 08:40] VITALS: BP 134/83; PULSE 86; RESP 16; TEMP 36.6; O2SAT 95
[2020-10-04 09:20] VITALS: BP 115/76; PULSE 91
[2020-10-04] MEDS: LORazepam 0.5 MG TABLET PO ×3 (09:20→20:13)
[2020-10-04] MEDS: Doxazosin Mesylate 2 MG TABLET PO (09:20)
[2020-10-04 09:21] LABS: Alanine Aminotransferase 21 U/L (0-40); Albumin Level 3.5 g/dL (3.5-5.0); Alkaline Phosphatase 92 U/L (39-117); Anion Gap 15 (12-20); Aspartate Amino Transferase 25 U/L (5-37); Bilirubin Total 0.3 mg/dL (0.0-1.0); Blood Urea Nitrogen 25 mg/dL (9-16); Calcium 8.2 mg/dL (8.4-10.2); Carbon Dioxide 23 mmol/L (22-29); Chloride 104 mmol/L (96-108); Creatinine Clr Calc Pharmacy 58.3; Estimated Glomerular Filt Rate > 60; Glucose Fasting 104 mg/dL (60-99); Potassium 3.9 mmol/l (3.3-5.1); Sodium 138 mmol/L (135-145); Total Protein 5.7 g/dL (6.5-8.0)
[2020-10-04] MEDS: Docusate Sodium 100 MG CAPSULE PO ×2 (09:21→20:13)
[2020-10-04 09:22] LABS: Cholesterol 166 mg/dL; HDL Cholesterol 42 mg/dL; Iron 32 mcg/dL (45-160); LDL Cholesterol Calculated 108 mg/dl; Percent Iron Saturation 10 % (15-50); Total Iron Binding Capacity 334 mcg/dL (228-428); Triglycerides 80 mg/dL; Unsaturated Iron Binding 302 ug/dL
[2020-10-04 09:57] LABS: Reflex LDLD? No
--- NOTE | 2020-10-04 10:00 | PM.IMHP ---
History of Present Illness Date of Service: 10/04/20 <PATSY Lopez - Last Filed: 10/04/20 10:47> Chief Complaint: depression <PATSY Lopez - Last Filed: 10/04/20 10:47> This is a 75-year-old male with history of psychotic depression with catatonia admitted for worsening depression. Patient was diagnosed with PE in August and ECT has been placed on hold since that diagnosis. He is evaluated by Dr. Little of Hematology earlier this month who felt that the benefits of ECT outweighed the risks. The hospitalists were asked to see in consultation for planned ECT as well as anemia and abnormal chest x-ray. Today he appears depressed and is minimally interactive, answering some with one-word sentences. He is able to tell me that he has not been coughing and denies any shortness and breath. He also denies a history of colon cancer. He denies seeing any blood in his stool. <PATSY Lopez - Last Filed: 10/04/20 10:47> Review of Systems Review of Systems: Yes all other systems are reviewed and are negative <PATSY Lopez - Last Filed: 10/04/20 10:47> Cardiovascular: Cardiovascular: Denies chest pain <PATSY Lopez Last Filed: 10/04/20 10:47> Respiratory: Respiratory: Denies cough <PATSY Lopez Last Filed: 10/04/20 10:47> Gastrointestinal: Gastrointestinal: Denies abdominal pain and Denies change in stool character <PATSY Lopez Last Filed: 10/04/20 10:47> Neurologic: Reports as per HPI <PATSY Lopez Last Filed: 10/04/20 10:47> [facility] Medical History: Medical History (Updated 10/04/20 @ 10:17 by PATSY Lopez) Dementia Depression Diverticulitis of colon with perforation GERD (gastroesophageal reflux disease) HTN (hypertension) Hyperlipidemia Major depressive disorder, recurrent, severe with psychotic features Pulmonary embolism SVT (supraventricular tachycardia) <PATSY Lopez Last Filed: 10/04/20 10:47> Functional capacity: independent ambulation <PATSY Lopez Last Filed: 10/04/20 10:47> Family History: Family History Brother Blood clot in vein Other No history of cardiac disorder <PATSY Lopez - Last Filed: 10/04/20 10:47> Surgical History: Surgical History H/O hernia repair History of colostomy reversal Status post Paula's procedure <PATSY Lopez - Last Filed: 10/04/20 10:47> Social History: Social History Household Members: None Housing: Assisted Living Facility Do you presently have visiting nurse or other home services: Yes (included in assisted living) Alcohol intake: former Smoking Status: Never smoker Second Hand Smoke Exposure: No Use of substances other than those prescribed or required for medical reasons: No Currently Displaying Signs/Symptoms of Drug Intoxication Withdrawal: No Have you been hit, kicked, punched, or otherwise hurt by someone within the past year? If so, by whom?: No Do you feel safe in your current relationship?: No Current Relationship Is there a partner from a previous relationship who is making you feel unsafe now?: No Are you made to feel afraid or neglected: No Spiritual Healthcare Practices: none identified Pent[employer]ism Healthcare Practices: none identified Cultural Healthcare Practices: none identified Advance Directives: Yes Advance Directives Information Provided: No Advance Directives on File: Yes Advance Directives Date on File: 07/27/20 Do you have thoughts of harming others: None Do you have a plan to hurt others: No Plan Recently lost weight without trying: Yes service: Yes ([employer]) Current occupational status: retired Sexual orientation: Straight/Heterosexual <PATSY Lopez - Last Filed: 10/04/20 10:47> Meds Allergies/Adverse reactions: Allergies Allergy/AdvReac Type Severity Reaction Status Date / Time No Known Allergies Allergy Verified 10/01/20 08:19 [No Known Allergies*] <PATSY Lopez - Last Filed: 10/04/20 10:47> Home medications: Home Medications Medication Instructions Recorded Confirmed Type doxazosin 2 mg PO DAILY 07/26/20 10/01/20 History duloxetine 60 mg PO DAILY 07/26/20 10/01/20 History finasteride 5 mg PO DAILY 07/26/20 10/01/20 History olanzapine 20 mg PO BEDTIME 07/26/20 10/01/20 History oxybutynin chloride 5 mg PO DAILY 07/26/20 10/01/20 History trazodone 200 mg PO BEDTIME 07/26/20 10/01/20 History docusate sodium [Colace] 100 mg PO BID 09/13/20 10/01/20 History polyethylene glycol 3350 [Miralax] 17 g PO DAILY 09/13/20 10/01/20 History <PATSY Lopez - Last Filed: 10/04/20 10:47> Physical Exam Vital Signs and Narrative: Vital Signs: Last Vital Signs Temp 97.1 F 10/04/20 06:00 Pulse 91 10/04/20 09:20 Resp 18 10/03/20 06:10 BP 115/76 10/04/20 09:20 Pulse Ox 93 10/04/20 06:00 Body Mass Index 26.1 <PATSY Lopez - Last Filed: 10/04/20 10:47> Const: Other: Minimally interactive <PATSY Lopez Last Filed: 10/04/20 10:47> General: alert, awake and poor hygiene <PATSY Lopez Last Filed: 10/04/20 10:47> HENMT: Head: Yes normocephalic and Yes atraumatic <PATSY Lopez Last Filed: 10/04/20 10:47> Eyes: Sclerae: sclerae normal <PATSY Lopez Last Filed: 10/04/20 10:47> Chest: Chest palpation & inspection: normal inspection of the chest <PATSY Lopez Last Filed: 10/04/20 10:47> Resp: Effort & Inspection: normal respiratory effort and no respiratory distress <PATSY Lopez Last Filed: 10/04/20 10:47> Cardio: Rate: regular rate <PATSY Lopez Last Filed: 10/04/20 10:47> Rhythm: regular rhythm <PATSY Lopez - Last Filed: 10/04/20 10:47> GI: Palpation (GI): Soft to palpation and nontender <PATSY Lopez - Last Filed: 10/04/20 10:47> Neuro: Cranial nerves: Yes CN's II-XII intact bilaterally and Yes Bilaterally intact EOM present <PATSY Lopez - Last Filed: 10/04/20 10:47> Extrem: General: Yes normal to inspection <PATSY Lopez - Last Filed: 10/04/20 10:47> Results Labs CBC and Chem 7: : 10/04/20 11:48 10/04/20 08:24 <PATSY Lopez - Last Filed: 10/04/20 10:47> Labs: Laboratory Results - last 24 hr 10/04/20 10/04/20 08:24 08:24 Anion Gap 15 Estim Creat Clear Calc 58.3 Estimated GFR > 60 Fasting Glucose 104 H Calcium 8.2 L Iron 32 L TIBC 334 % Saturation 10 L Unsat Iron Binding 302 Total Bilirubin 0.3 AST 25 ALT 21 Alkaline Phosphatase 92 Total Protein 5.7 L Albumin 3.5 Triglycerides 80 Cholesterol 166 LDL Cholesterol, Calc 108 HDL Cholesterol 42 <PATSY Lopez - Last Filed: 10/04/20 10:47> Assessment and Plan (1) Major depressive disorder, recurrent, severe with psychotic features: Status: Acute <PATSY Lopez - Last Filed: 10/04/20 10:47> This is a 75-year-old male with history of psychotic depression with catatonia admitted for ECT Depression Has tolerated ECT in the past. EKG unchanged. Denies chest pain or dyspnea. Has been evaluated by Hematology as outpatient who recommends proceeding with ECT. No indication for further testing prior to planned procedure. Normocytic Anemia H/H close to baseline Iron low -Repeat CBC -Check FOBT -start iron supplementation, monitor for constipation -outpatient followup abnormal CXR shows consolidation. pt afebrile, no leukocytosis denies SOB, cough -will obtain chest CT for further characterization PE dx 08/2020 continue eliquis Thank you for allowing us to participate the care of this patient. This case was discussed with Dr. Dye <PATSY Lopez - Last Filed: 10/04/20 10:47>
--- NOTE | 2020-10-04 10:47 | PC.NURSE ---
PT HAD A SMALL TO MED BM TODAY.
[2020-10-04] MEDS: Apixaban 5 MG TABLET PO ×2 (10:50→20:13)
[2020-10-04] MEDS: polyethylene glycoL 3350 17 GM POWD.PACK PO (10:50)
[2020-10-04] MEDS: Finasteride 5 MG TABLET PO (10:50)
[2020-10-04 12:32] LABS: Basophils Percent Auto 0.2 % (0-2); Eosinophils Percent Auto 0.2 % (0-4); Hematocrit 36.6 % (42-52); Hemoglobin 12.1 g/dl (14.0-18.0); Imm Gran Abs Auto 0.01 X10*3/uL (0.00-0.03); Imm Gran Pct Auto 0.2 % (0.0-0.4); Lymphocytes Absolute Auto 0.7 X10*3/uL (1.2-4.9); Lymphocytes Percent Auto 16.1 % (20-40); MANUAL DIFF FLAG NO; Mean Corpuscular HGB Conc 33.1 g/dl (31.0-36.0); Mean Corpuscular Hemoglobin 31.3 pg (27.0-33.0); Mean Corpuscular Volume 94.8 fL (80-98); Mean Platelet Volume 9.2 fL (9.4-12.4); Monocytes Absolute Auto 0.7 X10*3/uL (0.1-1.2); Monocytes Percent Auto 15.6 % (2-11); Neutrophils Percent Auto 67.7 % (45-73); Platelet Count 190 X10*3/uL (160-400); Red Blood Count 3.86 X10*6/uL (4.60-5.80); White Blood Count 4.5 X10*3/uL (4.8-10.8)
--- NOTE | 2020-10-04 12:49 | PC.NURSE ---
second small-med bowel movement today.
[2020-10-04 18:00] VITALS: BP 126/70; PULSE 88; TEMP 36.6
[2020-10-04] MEDS: traZODone HCL 100 MG TABLET PO (20:12)
[2020-10-04] MEDS: OLANZapine 10 MG TABLET 20 MG PO (20:12)
--- NOTE | 2020-10-04 22:36 | HO.PSYCHPN ---
Subjective Subjective Date of Service: 10/04/20 Reason For Visit: worsening depression/ocd Subjective Notes: Conditional Voluntary Interim History: patient withdrawn depressed catatonic psychotic scheduled for ECT Thursday history of psychotic depression lorazepam start encourage food and fluids patient withdrawn mostly mute Medication Compliance: Yes Review of Systems Reports as per HPI Mental Status Exam Mental Status Exam Narrative: PATIENT DISHEVELED WITHDRAWN SEVERELY DEPRESSED HOPELESS HELPLESS DIFFICULTY PROCESSING INFORMATION this continues to be true poor insight somatically preoccupied hopeless having hard time taking and any information Patient Appearance: Disheveled and Unkempt Patient Orientation: Person and Place Level of Consciousness: Lethargic Patient Behavior: Passive, Restless, Anxious, Fearful and Avoidant Mood Description: Withdrawn, Depressed and Blunted Affect Description: Anxious, Blunted, Sad and Apprehensive Diagnostics Vital Signs (24Hr): Vital Signs - 24 hr 10/04/20 06:00 10/04/20 09:20 10/04/20 18:00 Temperature 97.1 F 97.8 F Pulse Rate 91 91 88 Blood Pressure 115/76 115/76 126/70 Pulse Oximetry 93 Body Mass Index 26.1 Labs Results: 10/04/20 11:48 10/04/20 08:24 Labs: Laboratory Results - last 48 hr 10/04/20 10/04/20 10/04/20 08:24 08:24 11:48 WBC 4.5 L RBC 3.86 L Hgb 12.1 L Hct 36.6 L MCV 94.8 MCH 31.3 MCHC 33.1 RDW 13.0 Plt Count 190 MPV 9.2 L Immature Gran % (Auto) 0.2 Neut % (Auto) 67.7 Lymph % (Auto) 16.1 L [place] % (Auto) 15.6 H Eos % (Auto) 0.2 Baso % (Auto) 0.2 Lymph # (Auto) 0.7 L [place] # (Auto) 0.7 Eos # (Auto) 0.0 Baso # (Auto) 0.0 Abs Immat Gran (auto) 0.01 Absolute Neuts (auto) 3.0 Absolute Nucleated RBC 0.000 Nucleated RBC % (auto) 0.0 Sodium 138 Potassium 3.9 Chloride 104 Carbon Dioxide 23 Anion Gap 15 BUN 25 H Creatinine 1.13 Estim Creat Clear Calc 58.3 Estimated GFR > 60 Fasting Glucose 104 H Calcium 8.2 L Iron 32 L TIBC 334 % Saturation 10 L Unsat Iron Binding 302 Total Bilirubin 0.3 AST 25 ALT 21 Alkaline Phosphatase 92 Total Protein 5.7 L Albumin 3.5 Triglycerides 80 Cholesterol 166 LDL Cholesterol, Calc 108 HDL Cholesterol 42 Imaging Radiology Impressions: ITS Impressions Chest X-Ray 10/01/20 08:39 IMPRESSION: Prominent bilateral reticular interstitial changes with focal consolidation left lung base. Chest CT 10/04/20 00:00 IMPRESSION: 1. No acute abnormality. No acute airspace opacities. Fine subpleural reticular opacities at dependent lung bases consistent with dependent atelectasis 2. 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 These are stable since CAT scan of 2019. Medications Medications Current Medications Generic Name Dose Route Start Last Admin Trade Name Freq PRN Reason Stop Dose Admin Al Hydroxide/Mg Hydroxide 30 ml 10/02/20 19:03 Magnesium Hydrox/Alum Hydrox 30 Ml Oral.Susp PO Q6H PRN Heartburn/Nausea Apixaban 5 mg 10/01/20 21:00 10/04/20 20:13 Apixaban 5 Mg Tablet PO 5 mg BID [facility] Administration Docusate Sodium 100 mg 10/01/20 21:00 10/04/20 20:13 Docusate Sodium 100 Mg Capsule PO 100 mg BID [facility] Administration Doxazosin Mesylate 2 mg 10/02/20 09:00 10/04/20 09:20 Doxazosin Mesylate 2 Mg Tablet PO 2 mg DAILY [facility] Administration Protocol Duloxetine HCl 60 mg 10/01/20 19:00 10/02/20 09:10 Duloxetine Hcl 60 Mg Capsule. PO 60 mg DAILY [facility] Administration Ferrous Sulfate 325 mg 10/05/20 09:00 Ferrous Sulfate 324 Mg Tablet. PO DAILY [facility] Finasteride 5 mg 10/01/20 19:00 10/04/20 10:50 Finasteride 5 Mg Tablet PO 5 mg DAILY [facility] Administration Lorazepam 0.5 mg 10/04/20 09:00 10/04/20 20:13 Lorazepam 0.5 Mg Tablet PO 0.5 mg TID [facility] Administration Olanzapine 20 mg 10/01/20 21:00 10/04/20 20:12 Olanzapine 10 Mg Tablet PO 20 mg BEDTIME [facility] Administration Oxybutynin Chloride 5 mg 10/03/20 09:00 10/04/20 09:21 Oxybutynin Chloride Er 5 Mg Tab.Er.24 PO 5 mg DAILY [facility] Administration Polyethylene Glycol 17 gm 10/01/20 19:00 10/04/20 10:50 Polyethylene Glycol 3350 17 Gm Powd.Pack PO 17 gm DAILY [facility] Administration Trazodone HCl 100 mg 10/04/20 21:00 10/04/20 20:12 Trazodone Hcl 100 Mg Tablet PO 100 mg BEDTIME [facility] Administration Allergies Allergies Allergy/AdvReac Type Severity Reaction Status Date / Time No Known Allergies Allergy Verified 10/01/20 08:19 [No Known Allergies*] Assessment & Plan Assessment & Plan (1) Major depressive disorder, recurrent, severe with psychotic features: Status: Acute Code(s): F33.3 - Major depressive disorder, recurrent, severe with psychotic symptoms Assessment and Plan: case reviewed with healthcare proxy ECT scheduled for next available slot has always done well with this. Lorazepam t.i.d. ordered for catatonia the chest CT reviewed medical consult reviewed (2) Physical deconditioning: Status: Acute Code(s): R53.81 - Other malaise Greater than 50% of the session was spent on counseling and/or coordination of care
[2020-10-05] MEDS: Finasteride 5 MG TABLET PO (09:34)
[2020-10-05] MEDS: Docusate Sodium 100 MG CAPSULE PO ×2 (09:34→20:07)
[2020-10-05 09:35] VITALS: BP 134/83; PULSE 86
[2020-10-05] MEDS: Doxazosin Mesylate 2 MG TABLET PO (09:35)
[2020-10-05] MEDS: Ferrous Sulfate 324 MG TABLET.DR 325 MG PO (09:35)
[2020-10-05] MEDS: LORazepam 0.5 MG TABLET PO ×3 (09:36→20:07)
[2020-10-05] MEDS: Apixaban 5 MG TABLET PO ×2 (09:36→20:07)
[2020-10-05] MEDS: polyethylene glycoL 3350 17 GM POWD.PACK PO (09:44)
--- NOTE | 2020-10-05 13:06 | HO.PSYCHPN ---
Subjective Subjective Date of Service: 10/05/20 Reason For Visit: worsening depression/ocd Subjective Notes: Conditional Voluntary Interim History: I am terrible Medication Compliance: Yes Side effects from medications: No Attending Groups: No Review of Systems Acute medical concerns: Yes deconditioned Medical Review of Systems: unchanged Review of Systems Reports as per [facility] Mental Status Exam Mental Status Exam Narrative: lying in bed , refusing everything unless done with support of staff- drinking water and eating - Patient Appearance: Disheveled Patient Orientation: Person and Place Level of Consciousness: Awake Patient Behavior: Dependent and Passive Mood Description: Depressed Affect Description: Apathetic Patient Cognition Impaired: Yes Ability to Follow Directions: Poor Speech Pattern: Delayed Memory Description: Episodic Impaired Hallucinations: None Delusions: Not Present Thought Process: Rumination Depressive Symptoms: Changes in Appetite, Significant Weight Loss, Loss of Int. in Activity, Feelings of Worthlessness and Hopelessness Abnormal Motor Activity Signs and Symptoms: Psychomotor Retardation Judgement: Fair Diagnostics Vital Signs (24Hr): Vital Signs - 24 hr 10/04/20 18:00 10/05/20 09:35 Temperature 97.8 F Pulse Rate 88 86 Blood Pressure 126/70 134/83 Body Mass Index 26.1 Labs Results: 10/04/20 11:48 10/04/20 08:24 Labs: Laboratory Results - last 48 hr 10/04/20 10/04/20 10/04/20 08:24 08:24 11:48 WBC 4.5 L RBC 3.86 L Hgb 12.1 L Hct 36.6 L MCV 94.8 MCH 31.3 MCHC 33.1 RDW 13.0 Plt Count 190 MPV 9.2 L Immature Gran % (Auto) 0.2 Neut % (Auto) 67.7 Lymph % (Auto) 16.1 L [place] % (Auto) 15.6 H Eos % (Auto) 0.2 Baso % (Auto) 0.2 Lymph # (Auto) 0.7 L [place] # (Auto) 0.7 Eos # (Auto) 0.0 Baso # (Auto) 0.0 Abs Immat Gran (auto) 0.01 Absolute Neuts (auto) 3.0 Absolute Nucleated RBC 0.000 Nucleated RBC % (auto) 0.0 Sodium 138 Potassium 3.9 Chloride 104 Carbon Dioxide 23 Anion Gap 15 BUN 25 H Creatinine 1.13 Estim Creat Clear Calc 58.3 Estimated GFR > 60 Fasting Glucose 104 H Calcium 8.2 L Iron 32 L TIBC 334 % Saturation 10 L Unsat Iron Binding 302 Total Bilirubin 0.3 AST 25 ALT 21 Alkaline Phosphatase 92 Total Protein 5.7 L Albumin 3.5 Triglycerides 80 Cholesterol 166 LDL Cholesterol, Calc 108 HDL Cholesterol 42 Imaging Radiology Impressions: ITS Impressions Chest X-Ray 10/01/20 08:39 IMPRESSION: Prominent bilateral reticular interstitial changes with focal consolidation left lung base. reviwed with dr carlson who felt it was atelectasis Chest CT 10/04/20 00:00 IMPRESSION: 1. No acute abnormality. No acute airspace opacities. Fine subpleural reticular opacities at dependent lung bases consistent with dependent atelectasis 2. 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 These are stable since CAT scan of 2019. Medications Medications Current Medications Generic Name Dose Route Start Last Admin Trade Name Freq PRN Reason Stop Dose Admin Al Hydroxide/Mg Hydroxide 30 ml 10/02/20 19:03 Magnesium Hydrox/Alum Hydrox 30 Ml Oral.Susp PO Q6H PRN Heartburn/Nausea Apixaban 5 mg 10/01/20 21:00 10/05/20 09:36 Apixaban 5 Mg Tablet PO 5 mg BID ROMMEL Administration Docusate Sodium 100 mg 10/01/20 21:00 10/05/20 09:34 Docusate Sodium 100 Mg Capsule PO 100 mg BID ROMMEL Administration Doxazosin Mesylate 2 mg 10/02/20 09:00 10/05/20 09:35 Doxazosin Mesylate 2 Mg Tablet PO 2 mg DAILY ROMMEL Administration Protocol Duloxetine HCl 30 mg 10/05/20 10:45 Duloxetine Hcl 30 Mg Capsule. PO DAILY ROMMEL Ferrous Sulfate 325 mg 10/05/20 09:00 10/05/20 09:35 Ferrous Sulfate 324 Mg Tablet. PO 324 mg DAILY ROMMEL Administration Finasteride 5 mg 10/01/20 19:00 10/05/20 09:34 Finasteride 5 Mg Tablet PO 5 mg DAILY ROMMEL Administration Lorazepam 0.5 mg 10/04/20 09:00 10/05/20 09:36 Lorazepam 0.5 Mg Tablet PO 0.5 mg TID ROMMEL Administration Olanzapine 20 mg 10/01/20 21:00 10/04/20 20:12 Olanzapine 10 Mg Tablet PO 20 mg BEDTIME ROMMEL Administration Oxybutynin Chloride 5 mg 10/03/20 09:00 10/05/20 09:36 Oxybutynin Chloride Er 5 Mg Tab.Er.24 PO 5 mg DAILY ROMMEL Administration Polyethylene Glycol 17 gm 10/01/20 19:00 10/05/20 09:44 Polyethylene Glycol 3350 17 Gm Powd.Pack PO 17 gm DAILY ROMMEL Administration Trazodone HCl 50 mg 10/05/20 21:00 Trazodone Hcl 50 Mg Tablet PO BEDTIME ROMMEL Allergies Allergies Allergy/AdvReac Type Severity Reaction Status Date / Time No Known Allergies Allergy Verified 10/01/20 08:19 [No Known Allergies*] Assessment & Plan Assessment & Plan (1) Major depressive disorder, recurrent, severe with psychotic features: Status: Acute Code(s): F33.3 - Major depressive disorder, recurrent, severe with psychotic symptoms Assessment and Plan: pending ECT (2) Physical deconditioning: Status: Acute Code(s): R53.81 - Other malaise Assessment and Plan: pushing fluids , assistance with ADLs from staff further monitoring of vitals , orthostatics and po input- Greater than 50% of the session was spent on counseling and/or coordination of care
--- NOTE | 2020-10-05 14:54 | PC.NURSE ---
spoke to neils daughter marilyn and updated her on his status. 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 also questions whether he should be on the ensure as he is on elaquis for blood clot.
[2020-10-05 18:00] VITALS: BP 117/61; PULSE 106; TEMP 36.8
[2020-10-05] MEDS: OLANZapine 10 MG TABLET 20 MG PO (20:06)
[2020-10-05] MEDS: traZODone HCL 50 MG TABLET PO (20:08)
[2020-10-06 00:05] VITALS: BP 94/55; PULSE 116
--- NOTE | 2020-10-06 00:59 | PC.NURSE ---
0005: Pt found on bathroom. Pt was fully conscious,no apparent injuries. ortho vs Standin/55 HR 116, Sittin/75 HR 106, Lyin/[address] Mami Heaton and nursing spa supervisor notified.No new orders at this time.
[2020-10-06] MEDS: LORazepam 0.5 MG TABLET PO ×3 (09:23→20:13)
[2020-10-06] MEDS: Ferrous Sulfate 324 MG TABLET.DR 325 MG PO (09:32)
[2020-10-06] MEDS: Apixaban 5 MG TABLET PO ×2 (09:33→20:13)
[2020-10-06 09:34] VITALS: BP 94/55; PULSE 116
[2020-10-06] MEDS: Doxazosin Mesylate 2 MG TABLET PO (09:34)
[2020-10-06] MEDS: polyethylene glycoL 3350 17 GM POWD.PACK PO (09:34)
[2020-10-06] MEDS: Finasteride 5 MG TABLET PO (09:34)
[2020-10-06] MEDS: Docusate Sodium 100 MG CAPSULE PO ×2 (09:34→20:14)
--- NOTE | 2020-10-06 13:04 | P.PNPSI_ITS ---
Subjective Subjective Date of Service: 10/06/20 Reason For Visit: worsening depression/ocd Subjective Notes: Conditional Voluntary Interim History: severely depressed, nearly catatonic answering one word to others won't answer me today at all fall risk back to 1:1 nursing reports he is eating and drinking as prompted Medication Compliance: Yes Side effects from medications: No Attending Groups: No Review of Systems Reports as per [facility] Mental Status Exam Mental Status Exam Patient Appearance: Disheveled and Unkempt Patient Orientation: Person Level of Consciousness: Awake Patient Behavior: Dependent and Isolative Behavior Comments: mostly mute Mood Description: Constricted and Sad Affect Description: Withdrawn and Flat Patient Cognition Impaired: Yes Ability to Follow Directions: Poor Speech Pattern: Impoverished Thought Content: positive for Poverty of Content Depressive Symptoms: Hopelessness and Loss of Energy Abnormal Motor Activity Signs and Symptoms: Psychomotor Retardation Judgement: Poor Diagnostics Vital Signs (24Hr): Vital Signs - 24 hr 10/05/20 18:00 10/06/20 00:05 10/06/20 09:34 Temperature 98.3 F Pulse Rate 106 H 116 H 116 H Blood Pressure 117/61 94/55 L 94/55 L Body Mass Index 26.1 Labs Results: 10/04/20 11:48 10/04/20 08:24 Imaging Radiology Impressions: ITS Impressions Chest X-Ray 10/01/20 08:39 IMPRESSION: Prominent bilateral reticular interstitial changes with focal consolidation left lung base. Chest CT 10/04/20 00:00 IMPRESSION: 1. No acute abnormality. No acute airspace opacities. Fine subpleural reticular opacities at dependent lung bases consistent with dependent atelectasis 2. 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 These are stable since CAT scan of 2019. Medications Medications Current Medications Generic Name Dose Route Start Last Admin Trade Name Freq PRN Reason Stop Dose Admin Al Hydroxide/Mg Hydroxide 30 ml 10/02/20 19:03 Magnesium Hydrox/Alum Hydrox 30 Ml Oral.Susp PO Q6H PRN Heartburn/Nausea Apixaban 5 mg 10/01/20 21:00 10/06/20 09:33 Apixaban 5 Mg Tablet PO 5 mg BID ROMMEL Administration Docusate Sodium 100 mg 10/01/20 21:00 10/06/20 09:34 Docusate Sodium 100 Mg Capsule PO 100 mg BID ROMMEL Administration Doxazosin Mesylate 2 mg 10/02/20 09:00 10/06/20 09:34 Doxazosin Mesylate 2 Mg Tablet PO 2 mg DAILY ROMMEL Administration Protocol Duloxetine HCl 30 mg 10/05/20 10:45 Duloxetine Hcl 30 Mg Capsule. PO DAILY ROMMEL Ferrous Sulfate 325 mg 10/05/20 09:00 10/06/20 09:32 Ferrous Sulfate 324 Mg Tablet. PO 324 mg DAILY ROMMEL Administration Finasteride 5 mg 10/01/20 19:00 10/06/20 09:34 Finasteride 5 Mg Tablet PO 5 mg DAILY ROMMEL Administration Lorazepam 0.5 mg 10/04/20 09:00 10/06/20 09:23 Lorazepam 0.5 Mg Tablet PO 0.5 mg TID ROMMEL Administration Olanzapine 20 mg 10/01/20 21:00 10/05/20 20:06 Olanzapine 10 Mg Tablet PO 20 mg BEDTIME ROMMEL Administration Oxybutynin Chloride 5 mg 10/03/20 09:00 10/06/20 09:23 Oxybutynin Chloride Er 5 Mg Tab.Er.24 PO 5 mg DAILY ROMMEL Administration Polyethylene Glycol 17 gm 10/01/20 19:00 10/06/20 09:34 Polyethylene Glycol 3350 17 Gm Powd.Pack PO 17 gm DAILY ROMMEL Administration Trazodone HCl 50 mg 10/05/20 21:00 10/05/20 20:08 Trazodone Hcl 50 Mg Tablet PO 50 mg BEDTIME ROMMEL Administration Allergies Allergies Allergy/AdvReac Type Severity Reaction Status Date / Time No Known Allergies Allergy Verified 10/01/20 08:19 [No Known Allergies*] Assessment & Plan Assessment & Plan (1) Major depressive disorder, recurrent, severe with psychotic features: Status: Acute Code(s): F33.3 - Major depressive disorder, recurrent, severe with psychotic symptoms Assessment and Plan: had originally held duloxetine due to tachycardia now back on 30mg will increase to 40mg and then back to 60mg likely needs ECT in any case (2) Physical deconditioning: Status: Acute Code(s): R53.81 - Other malaise Assessment and Plan: less dehydrated now eating and drinking with support of staff Greater than 50% of the session was spent on counseling and/or coordination of care
[2020-10-06 18:00] VITALS: BP 118/72; PULSE 120; TEMP 36.6
[2020-10-06] MEDS: OLANZapine 10 MG TABLET 20 MG PO (20:13)
[2020-10-06] MEDS: traZODone HCL 50 MG TABLET PO (20:13)
--- NOTE | 2020-10-07 | CT_ITS ---
EXAMINATION: CT HEAD WITHOUT CONTRAST (STROKE PROTOCOL) CLINICAL INFORMATION: Stroke protocol. COMPARISON: CT of the head done on 02/03/2020. TECHNIQUE: Contiguous axial imaging was performed from the skull base to vertex without intravenous administration of contrast. This CT examination was performed using dose optimization techniques as appropriate, variously including the following: *Automated exposure control *Adjustment of mA and/or kV according to patient size (this includes techniques or standardized protocols for targeted exams where dose is matched to indication/reason for exam; i.e. extremities or head) *Use of iterative reconstruction technique DLP: 788.45 mGy-cm FINDINGS: There is no intracranial hemorrhage, hematoma, or extra-axial fluid collection. The ventricles are normal in size. There is no hydrocephalus, edema, or mass effect. The collado-white matter differentiation appears symmetric. There is no acute infarct or mass lesion. No significant change. The calvarium appears intact. There is no pneumocephalus or orbital emphysema. The visualized sinuses and middle ears and mastoid air cells show no significant mucosal thickening. There are no air-fluid levels. CT/CT head for stroke IMPRESSION: No acute intracranial pathology. No significant change since 02/03/2020. This critical result was discussed with Dr. Zurita at 8:23 AM hours on 10/07/2020. It was ascertained that the content and urgency of the report was understood at the time of direct communication.
[2020-10-07 06:00] VITALS: BP 117/74; PULSE 80; RESP 16; TEMP 37.1; O2SAT 92
[2020-10-07] MEDS: Ferrous Sulfate 324 MG TABLET.DR 325 MG PO (08:59)
[2020-10-07] MEDS: LORazepam 0.5 MG TABLET PO (08:59)
[2020-10-07] MEDS: Apixaban 5 MG TABLET PO (08:59)
[2020-10-07 09:00] VITALS: BP 132/77; PULSE 93
[2020-10-07] MEDS: Doxazosin Mesylate 2 MG TABLET PO (09:00)
[2020-10-07] MEDS: DULoxetine HCl 20 MG CAPSULE.DR 40 MG PO (09:00)
[2020-10-07] MEDS: Docusate Sodium 100 MG CAPSULE PO (09:00)
[2020-10-07] MEDS: Finasteride 5 MG TABLET PO (09:00)
[2020-10-07] MEDS: polyethylene glycoL 3350 17 GM POWD.PACK PO (09:07)
[2020-10-07 09:12] VITALS: BP 132/77; PULSE 93; TEMP 36.7; O2SAT 96
--- NOTE | 2020-10-07 09:38 | PC.NURSE ---
Addendum entered by Afshan Crystal RN 10/07/20 09:50: CONTINUATION OF MEDS REVIEWED WITH DR HAMEED: PROSCAR, ATIVAN, DITROPAN XL, FERROUS SULFATE, COLACE, MIRALAX. DR HAMEED INFORMED THIS PORTFOLIO ANALYST TO ADMINISTER ALL AM MEDS SCHEDULED. NURSE TO NURSE DONE WITH BURTON PRIOR TO ADMISSION TO MEDICAL FLOOR. SUPERVISORS UP ON UNIT TO TRANSFER TO ROOM 483. DISCHARGE ORDER RECEIVED FROM DR BRINK. PT TO BE ADMITTED TO ROOM [address] HAMEED. Original Note: RETURNED TO UNIT VIA GURNEY AT [address] SCAN OF HEAD. ALERT, HAND GRASPS EQUAL AND STRONG. PT TO BE TRANSFERRED TO ROOM [address] HAMEED READ CT SCAN POST TEST. THIS PORTFOLIO ANALYST QUESTIONED ALL AM MEDS SCHEDULED TO BE GIVEN WITH DR HAMEED: NYDIA OLSEN CYMBALTA,
[2020-10-07 15:55] VITALS: BP 99/70; PULSE 87; RESP 18; TEMP 36.1; O2SAT 95
--- NOTE | 2021-04-03 11:17 | P.DS_ITS ---
DS: Providers Provider Date of Service: 10/07/20 Date of admission: 10/03/21 Date of discharge: 10/07/20 Primary care physician: Marichuy Castano NP Admitting clinician: Cooper Molina Attending physician on admission: Cooper Molina Consults: had medical consult was dced to medical unit due to deteriiorating medical condition/ s/p fall in bathroom had CT scan of head transferred to medical unit for further observatin discussed with dr berger DS: Diagnosis Discharge Diagnosis (1) Depression: Status: Acute Problem details: requiring ECT DS: Medications Discharge Medications Home Medications: Previous Rx's Medication Instructions Recorded Eliquis 5 mg PO BID #60 tab 10/30/20 Viibryd 10 mg PO DAILY 30 Days #30 tab 10/30/20 atorvastatin 80 mg PO BEDTIME #30 tab 10/30/20 docusate sodium [Colace] 100 mg PO BID 60 Days #120 cap 10/30/20 ferrous sulfate 325 mg PO DAILY 30 Days #30 tab 10/30/20 finasteride 5 mg PO DAILY 30 Days #30 tab 10/30/20 olanzapine 2.5 mg PO BID PRN 30 Days #60 tab 10/30/20 olanzapine 10 mg PO BEDTIME 30 Days #30 tab 10/30/20 omeprazole 40 mg PO BID@0630,1630 30 Days #60 10/30/20 cap oxybutynin chloride 5 mg PO DAILY 30 Days #30 tab 10/30/20 polyethylene glycol 3350 [Miralax] 17 g PO DAILY 30 Days ea 10/30/20 trazodone 50 mg PO BEDTIME 30 Days #30 tab 10/30/20 Eliquis 5 mg PO BID 30 Days #60 tab 11/07/20 Viibryd 10 mg PO DAILY #30 tab 11/07/20 atorvastatin 80 mg PO BEDTIME 30 Days #30 tab 11/07/20 olanzapine 10 mg PO BEDTIME #30 tab 11/07/20 Discharge Plan Discharge Patient Disposition: [facility] Swing Bed Discharge Medications: No Action olanzapine 10 mg Tablet 10 mg PO BEDTIME 30 Days Qty: 30 RF: 0 olanzapine 2.5 mg Tablet 2.5 mg PO BID PRN (Reason: Anxiety) 30 Days Qty: 60 RF: 0 Viibryd 10 mg Tablet 10 mg PO DAILY 30 Days Qty: 30 RF: 0 omeprazole 40 mg Capsule,Delayed Release(Dr/Ec) 40 mg PO BID@0630,1630 30 Days Qty: 60 RF: 0 atorvastatin 80 mg Tablet 80 mg PO BEDTIME Qty: 30 RF: 0 trazodone 50 mg Tablet 50 mg PO BEDTIME 30 Days Qty: 30 RF: 0 polyethylene glycol 3350 [Miralax] 17 gram Powder In Packet 17 g PO DAILY 30 Days RF: 0 ferrous sulfate 325 mg (65 mg iron) Tablet 325 mg PO DAILY 30 Days Qty: 30 RF: 0 docusate sodium [Colace] 100 mg Capsule 100 mg PO BID 60 Days Qty: 120 RF: 0 oxybutynin chloride 5 mg tablet 5 mg PO DAILY 30 Days Qty: 30 RF: 0 finasteride 5 mg Tablet 5 mg PO DAILY 30 Days Qty: 30 RF: 0 Eliquis 5 mg tablet 5 mg PO BID Qty: 60 RF: 0 Eliquis 5 mg Tablet 5 mg PO BID 30 Days Qty: 60 RF: 0 atorvastatin 80 mg Tablet 80 mg PO BEDTIME 30 Days Qty: 30 RF: 0 Viibryd 10 mg tablet 10 mg PO DAILY Qty: 30 RF: 0 olanzapine 10 mg tablet 10 mg PO BEDTIME Qty: 30 RF: 0 Discharge Orders: Discharge Order (Routine); Ordered 04/03/21 Ordered By: Mami Deleon Discharge Date/Time: 10/01/20 23:59 Mental Status Exam Mental Status Exam Narrative: see consult note dated 10/07/20 Data Data Completed and Pending Completed studies during hospitalization [Text1]: CT scan , labs egk Additional Comments Additional comments: welcome back to psychiatry when medically cleared DS: Summary Time Spent with Patient Time attestation: Pt fell early 10/07/20, had been admitted for catatonic like depression pending ECT , fell in [place] , ? hit head, had CT scan and transfered to medical unit for further observation
== END 2020-10-07 10:09 | disposition other institution (70) | DRG 885 ==
LOC: HO.ED 08:25 → HO.PM5 10-02 19:18
PROVIDERS: Physician Assistant Medical; Admitting Provider Psychiatry & Neurology Psychiatry; Emergency Provider Emergency Medicine Emergency Medical Services; Visit Provider Psychiatry & Neurology Psychiatry
PROC: (CPT 90870; principal; 2020-10-10 07:30)
DX: F33.3 Major depressive disorder, recurrent, severe with psychotic symptoms (principal); R53.81 Other malaise; K21.9 Gastro-esophageal reflux disease without esophagitis; F03.90 Unspecified dementia, unspecified severity, without behavioral disturbance, psychotic disturbance, mood disturbance, and anxiety; E86.0 Dehydration; Z20.828 Contact with and (suspected) exposure to other viral communicable diseases; Z79.01 Long term (current) use of anticoagulants; Z79.82 Long term (current) use of aspirin; Z79.899 Other long term (current) drug therapy
CPT/HCPCS: 0241U; 36415; 70450; 71045; 71250; 74220; 80048; 80053; 80061; 82150; 82272; 83540; 83690; 84484; 85025; 85027; 87635; 88305; 90792; 90870; 93005; 97110; 97116; 97162; 97166; 97530; 97535; 99232; 99285; J0330; J1885; J2405

== ENCOUNTER 2020-10-07 10:23 | Inpatient (IN) | payer MEDICARE, OTHER, SELFPAY ==
[2020-10-07 10:24] VITALS: BP 120/72; PULSE 91; RESP 18; TEMP 36.7; O2SAT 95
[2020-10-07 10:32] VITALS: BMI 25.0
--- NOTE | 2020-10-07 11:19 | PM.IMHP ---
History of Present Illness Date of Service: 10/07/20 Chief Complaint: Facial droop This is a 75-year-old male with history of psychotic depression with catatonia admitted for worsening depression. He was diagnosed with PE in August and put on Eliquis. He has been admitted to the [facility] unit since October 02 for depression and has been treated with ECT which seem to help him. This morning satff at the unit thought the patient had a left side facial droop when he woke to go the bathroom, it wasn't clear when he was last noted to be normal . Arrived at the unit within minutes and patient reportedly was back to his baseline and he could not offer any meaningful history other than saying I don't feel goog he says this anytime you ask him how he feels. A stat head CT was unremarkable. The rest of Neuro exam is unremarkable. Review of Systems Review of Systems: Yes all other systems are reviewed and are negative Neurologic: Comments: No new weakness, no facial droop, no speech changes, no visual chanes. [facility] Medical History Dementia Depression Diverticulitis of colon with perforation GERD (gastroesophageal reflux disease) HTN (hypertension) Hyperlipidemia Major depressive disorder, recurrent, severe with psychotic features Pulmonary embolism SVT (supraventricular tachycardia) Family History Brother Blood clot in vein Other No history of cardiac disorder Surgical History H/O hernia repair History of colostomy reversal Status post Paula's procedure Social History Household Members: Other Housing: Assisted Living Facility Alcohol intake: former Smoking Status: Never smoker Second Hand Smoke Exposure: No Use of substances other than those prescribed or required for medical reasons: No Have you been hit, kicked, punched, or otherwise hurt by someone within the past year? If so, by whom?: No Do you feel safe in your current relationship?: No Current Relationship Is there a partner from a previous relationship who is making you feel unsafe now?: No Are you made to feel afraid or neglected: No Advance Directives: Yes Advance Directives on File: Yes Advance Directives Date on File: 07/27/20 Do you have thoughts of harming others: Vague Do you have a plan to hurt others: No Plan Recently lost weight without trying: Yes service: Yes ([email or web address]) Current occupational status: retired Sexual orientation: Straight/Heterosexual Meds Allergies Allergy/AdvReac Type Severity Reaction Status Date / Time No Known Allergies Allergy Verified 10/01/20 08:19 [No Known Allergies*] Home Medications Medication Instructions Recorded Confirmed Type doxazosin 2 mg PO DAILY 07/26/20 10/01/20 History duloxetine 60 mg PO DAILY 07/26/20 10/01/20 History finasteride 5 mg PO DAILY 07/26/20 10/01/20 History olanzapine 20 mg PO BEDTIME 07/26/20 10/01/20 History oxybutynin chloride 5 mg PO DAILY 07/26/20 10/01/20 History trazodone 200 mg PO BEDTIME 07/26/20 10/01/20 History docusate sodium [Colace] 100 mg PO BID 09/13/20 10/01/20 History polyethylene glycol 3350 [Miralax] 17 g PO DAILY 09/13/20 10/01/20 History Physical Exam Vital Signs and Narrative: Vital Signs: Last Vital Signs Temp 98.1 F 10/07/20 10:24 Pulse 91 10/07/20 10:24 Resp 18 10/07/20 10:24 BP 120/72 10/07/20 10:24 Pulse Ox 95 10/07/20 10:24 Body Mass Index 25.0 Constitutional Awake and Alert, No apparent distress Neck Supple, No lymphadenopathy Cardiovascular RRR, No M/R/G, S1 S2, No S3 S4, No pedal edema Respiratory Lungs clear, No respiratory distress Gastrointestinal Non tender, Non-distended Skin No rash Neurological Alert & oriented, motor function grossly intact, CV Psychological Appropriate affect Assessment and Plan (1) Major depressive disorder, recurrent, severe with psychotic features: Status: Acute (2) Facial droop: Status: Acute 75/m with major depression, h/o PE on eliquis admitted to Psych for ECT treatment and this morning reportedly had transient episode of facial droop 1. Facial droop transient ? TIA--history was vague, exam unremarkable. Patient was sleeping on that part of the face and may have had some deformity there transiently. At any event CT scan of head showed no stroke and he would not have been a candidate for tPA given that he's on Eliquis. I will ask neuro to see him. Neuro check . 2. h/o PE--continue Eliquis 3. History of Normoctic anemia--check CBC 4. Depression--psych to continue follow and continue ECT if it is established to help him. 5. DVT Prophylaxis--Eliquis
[2020-10-07 11:32] VITALS: BP 107/68; PULSE 106; RESP 18; TEMP 36.3; O2SAT 98
--- NOTE | 2020-10-07 14:36 | P.CNNE_ITS ---
History of Present Illness Data of Consult Service Date: 10/07/20 Primary Care Provider: Unknown Physician HPI Reason for consult: LEFT FACIAL DROOP FOR A 1/2 HOUR EARLIER TODAY THIS IS A 75-YEAR-OLD MAN WITH PSYCHOTIC DEPRESSION AND CATATONIA WHO IS BEING EVALUATED FOR ECT TREATMENTS WAS NOTED TO HAVE A LEFT FACIAL DROOP BY THE SITTER IN THE HOSPITAL. IT MAY HAVE LASTED 20-30 MINUTES AND RESOLVED. HE IS HARD TO EVALUATE. HE DOES NOT PROVIDE ANY INFORMATION. THERE IS NO PREVIOUS HISTORY OF STROKE OR TIA OR SEIZURE. HE DENIES ANY HEADACHE OR DIZZINESS Review of Systems Eyes: Eyes: Reports no additional eye complaints ENT: Reports system reviewed and no additional complaints, except as documented and Reports Normal hearing present Cardiovascular: Cardiovascular: Reports no additional cardiovascular complaints Respiratory: Respiratory: Reports no additional respiratory complaints Gastrointestinal: Gastrointestinal: Reports no additional gastrointestinal complaints Genitourinary: Genitourinary: Reports no additional male genitourinary complaints Musculoskeletal: Musculoskeletal: Reports no additional musculoskeletal complaints Integumentary/Breasts: Skin/Breast: Reports system reviewed and no additional complaints, except as docu Neurologic: Reports as per HPI and Reports Normal hearing present Psychiatric: Psychiatric: Reports as per HPI Endocrine: Endocrine: Reports no additional endocrine complaints Hematologic/Lymphatic: Hematologic/Lymphatic: Reports no additional hematologic/lymphatic complaints Allergic/Immunologic: Allergic/Immunologic: Reports no additional allergic/immunologic complaints [facility] Past Medical History Medical History Dementia Depression Diverticulitis of colon with perforation GERD (gastroesophageal reflux disease) HTN (hypertension) Hyperlipidemia Major depressive disorder, recurrent, severe with psychotic features Pulmonary embolism SVT (supraventricular tachycardia) Family History Family History Brother Blood clot in vein Other No history of cardiac disorder Surgical History Surgical History H/O hernia repair History of colostomy reversal Status post Paula's procedure Social History Social History Household Members: Other Housing: Assisted Living Facility Alcohol intake: former Smoking Status: Never smoker Second Hand Smoke Exposure: No Use of substances other than those prescribed or required for medical reasons: No Have you been hit, kicked, punched, or otherwise hurt by someone within the past year? If so, by whom?: No Do you feel safe in your current relationship?: No Current Relationship Is there a partner from a previous relationship who is making you feel unsafe now?: No Are you made to feel afraid or neglected: No Advance Directives: Yes Advance Directives on File: Yes Advance Directives Date on File: 07/27/20 Do you have thoughts of harming others: Vague Do you have a plan to hurt others: No Plan Recently lost weight without trying: Yes service: Yes ([employer]) Current occupational status: retired Sexual orientation: Straight/Heterosexual Meds Allergies Allergy/AdvReac Type Severity Reaction Status Date / Time No Known Allergies Allergy Verified 10/01/20 08:19 [No Known Allergies*] Home Medications Medication Instructions Recorded Confirmed Type doxazosin 2 mg PO DAILY 07/26/20 10/01/20 History duloxetine 60 mg PO DAILY 07/26/20 10/01/20 History finasteride 5 mg PO DAILY 07/26/20 10/01/20 History olanzapine 20 mg PO BEDTIME 07/26/20 10/01/20 History oxybutynin chloride 5 mg PO DAILY 07/26/20 10/01/20 History trazodone 200 mg PO BEDTIME 07/26/20 10/01/20 History docusate sodium [Colace] 100 mg PO BID 09/13/20 10/01/20 History polyethylene glycol 3350 [Miralax] 17 g PO DAILY 09/13/20 10/01/20 History Physical Exam Vital Signs: Vital Signs: Last Vital Signs Temp 97.4 F 10/07/20 11:32 Pulse 106 H 10/07/20 11:32 Resp 18 10/07/20 11:32 BP 107/68 10/07/20 11:32 Pulse Ox 98 10/07/20 11:32 Body Mass Index 25.0 Const: Other: Limited cooperation. Follows simple commands is restless and does not talk General: no acute distress, well developed, alert and awake Nutritional Appearance: well nourished Limitations: no limitations HENMT: Head: Yes normal to inspection, Yes normocephalic and Yes atraumatic Ears: hearing grossly normal bilaterally General nose exam: Normal external nose present Face and sinus: Yes normal facial exam Mouth: Normal oral and palatal mucosa present Eyes: General: appearance normal, both eyes and all related structures Visual Morales: normal visual morales by confrontation Alignment and Position: alignment normal Periorbital: periorbital findings normal Eyelids: Yes eyelids normal Conjunctivae: conjunctivae normal Sclerae: sclerae normal Corneas: corneas normal Pupils: Equal, round and reactive pupils present and Pupil accommodation reflex normal EOM: EOMs intact bilaterally Direct Ophthalmoscopy: normal light reflex Neck: Neck: Yes normal visual inspection, Yes full ROM and Yes no meningeal signs Thyroid: Thyroid normal Carotids: normal carotid upstroke and bounding pulses Chest: Chest palpation & inspection: normal inspection of the chest Resp: Effort & Inspection: normal respiratory effort Auscultation: clear to auscultation bilaterally Cardio: Rate: regular rate Rhythm: regular rhythm Heart sounds: S1 normal heart sound present and S2 normal heart sound present Peripheral pulses: Peripheral pulses 2+ throughout GI: Inspection: Yes normal to inspection Percussion: Yes normal to percussion Auscultation: normal bowel sounds Rectal Exam - Male: Yes deferred Back/Spine/Pelvis: Cervical Spine: normal cervical lordosis and cervical ROM normal Thoracic/Lumbar Spine: thoracic and lumbar spine normal to inspection Skin: General skin exam: no rashes or lesions noted Neuro: Other: He has a weak arrest this turning in bed frequently. He does not verbalize other than to say he is terrible. He denies headache or dizziness. He has a flat affect. He moves all 4 extremities had no drift. His left upper lid is puffy and droopy. There is no lower facial weakness. Right nasolabial fold is slightly flatter. Tongue protrudes in the midline. He moves all 4 extremities against gravity without any apparent weakness. Normal finger tapping and [id number] test. Gait was not tested. General: tone normal, moves all extremities, Normal light touch and pain sensation, no meningeal signs, no focal motor deficits, CN's II-XI intact bilaterally, normal sensation to monofilament and deep tendon reflexes 2+ bilaterally Cranial nerves: Yes CN's II-XII intact bilaterally, Yes Equal, round and reactive pupils present, Yes Bilaterally intact EOM present, Yes Nystagmus not present, Yes Normal facial strength present, Yes Midline tongue present, Yes Normal gag reflex present, Yes Symmetric palate elevation present, Yes Normal hearing present and Yes Ability to bilaterally rotate head present Speech: Other speech findings present (Neuro) Motor exam (neuro): 5/5 motor strength present throughout, Pronator motor function not present, no tremor noted, no asterixis, Motor fasciculations not present, Normal motor muscle tone present throughout and Motor abnormalities not present Sensory Exam: Bilaterally intact graphesthesia Deep tendon reflexes (DTR's): Right triceps reflex intensity grade: 2+, Left triceps reflex intensity grade: 2+, Rt Biceps (C5, C6): 2+, Left biceps reflex intensity grade: 2+, Right brachioradialis reflex intensity grade: 2+, Left brachioradialis reflex intensity grade: 2+, Right patellar reflex intensity grade: 2+, Left patellar reflex intensity grade: 2+, Right ankle reflex intensity grade: 2+ and Left ankle reflex intensity grade: 2+ Plantar Reflex Responses: downgoing: right, left and bilateral Coordination: [id number] test normal Pupils: Normal pupillary reactivity/response: bilateral Extrem: General: Yes normal to inspection, Yes normal exam except as noted and Yes no pedal edema Psych: Appearance: grossly normal Mental Status: mental status grossly normal Speech and movement: Normal speech and movement present and Clear speech present Affect: normal affect Attitude: cooperative Thought process: Normal thought process present Assessment and Plan (1) Facial droop: Problem details: No obvious facial droop at this time. Possible TIA Status: Acute CT scan of the brain was unremarkable. I would recommend a carotid Doppler. Start aspirin 81 mg and atorvastatin 80 mg because of his hyperlipidemia control of blood pressure. (2) Major depressive disorder, recurrent, severe with psychotic features: Status: Acute
--- NOTE | 2020-10-07 14:37 | PM.PSYCN ---
History of Present Illness Date of Service: 10/07/2020 Chief Complaint: TIA Reason for Consult: 75 yo WM was on psych unit for worsening depression and deconditioning seen to have drooping facial muscles today on left side and leaning to left at baseline right now he is deconditioned and unsteady when see by me today on medical unit he slurred his speech lowsy about how he is feeling Discussed with referring provider: Yes Sources of Information: patient interviewed Additional Sources of Information: discussed with nursing on psyh unit and 1:1 sitter was not like this last night - no one noticed drooping of face and he had gone into kitchen with help - so was out of a bed with support HPI Past Psychiatric History: HISTORY OF PAST PSYCHIATRIC HOSPITALIZATIONS ON M 5 FOR RECURRENCE PSYCHOTIC DEPRESSION HAS RESPONDED WELL TO ECT [facility] Medical History Dementia Depression Diverticulitis of colon with perforation GERD (gastroesophageal reflux disease) HTN (hypertension) Hyperlipidemia Major depressive disorder, recurrent, severe with psychotic features Pulmonary embolism SVT (supraventricular tachycardia) Surgical History H/O hernia repair History of colostomy reversal Status post Paula's procedure Social History: PATIENT'S [facility] HAS A STEPDAUGHTER WHO IS HEALTHCARE [employer]OXY HAS A BROTHER WHO LIVES IN [place] THE PATIENT IS A Trauma History: NOT APPLICABLE Diagnostics Vital Signs (24Hr): Vital Signs - 24 hr 10/07/20 10:24 10/07/20 11:32 Temperature 98.1 F 97.4 F Pulse Rate 91 106 H Respiratory Rate 18 18 Blood Pressure 120/72 107/68 Pulse Oximetry 95 98 Body Mass Index 25.0 Mental Status Exam Mental Status Exam Patient Appearance: Disheveled and Unkempt Patient Orientation: Person Level of Consciousness: Awake and Drowsy Patient Behavior: Dependent Behavior Comments: one word answers lowsy Mood Description: Constricted Affect Description: Flat Patient Cognition Impaired: Yes Ability to Follow Directions: Poor Speech Pattern: Slurred Thought Process: Slowed Thinking and Confusion Thought Content: positive for Poverty of Content Depressive Symptoms: Diff. Making Decisions and Muscle Tension Abnormal Motor Activity Signs and Symptoms: Psychomotor Retardation Judgement: Poor Medications Medications Current Medications Generic Name Dose Route Start Last Admin Trade Name Freq PRN Reason Stop Dose Admin Acetaminophen 650 mg 10/07/20 10:27 Acetaminophen Supp 650 Mg Supp.Rect AK Q6H PRN Pain, Mild (Pain Scale 1-3) Sodium Chloride 3 ml 10/07/20 16:00 0.9 % Sodium Chloride Flush 3 Ml Syringe IVFLUSH QSHIFT ROMMEL Allergies Allergies Allergy/AdvReac Type Severity Reaction Status Date / Time No Known Allergies Allergy Verified 10/01/20 08:19 [No Known Allergies*] Assessment & Plan Assessment & Plan (1) Facial droop: Status: Acute Code(s): R29.810 - Facial weakness Recommendations: asked medical to clear for neuro and cardio so he can get ECT for depression if medically stable enough for it (2) Major depressive disorder, recurrent, severe with psychotic features: Status: Acute Code(s): F33.3 - Major depressive disorder, recurrent, severe with psychotic symptoms (3) Physical deconditioning: Status: Acute Code(s): R53.81 - Other malaise Greater than 50% of the session was spent on counseling and/or coordination of care
--- NOTE | 2020-10-07 15:48 | MHC.STROKE ---
10/07/20 UNKNOWN ONSET TIME OF FACIAL DROOP. DISCOVERED AROUND [address] HEAD FOR STROKE DONE, NO BLEED. TRANSFERRED FROM AND ADMITTED TO TELEMETRY. SYMPTOMS RESOLVED WITHIN 30 MINUTES. PASSED SWALLOW. NIHSS ESTIMATED TO BE 0, SOME AREAS DIFFICULT TO TEST. CURRENTLY ON ELIQUIS THEREFORE HE WOULD HAVE BEEN EXCLUDED FROM TPA BASED ON THIS PLUS RESOLUTION OF SYMPTOMS. SEEN BY NEUROLOGY, SEE HIS NOTE. I WILL CONTINUE TO FOLLOW.
[2020-10-07] MEDS: Aspirin 81 MG TAB.CHEW PO (15:54)
[2020-10-07 16:00] VITALS: BP 99/70; PULSE 73; RESP 16; TEMP 36.4; O2SAT 95
[2020-10-07] MEDS: 0.9 % Sodium Chloride Flush 3 ML SYRINGE IVFLUSH (16:32)
[2020-10-07 19:28] VITALS: BP 104/69; PULSE 76; RESP 16; TEMP 36.6; O2SAT 97
[2020-10-07] MEDS: OLANZapine 10 MG TABLET 20 MG PO (21:30)
[2020-10-07] MEDS: Atorvastatin Calcium 20 MG TABLET PO (21:30)
[2020-10-07] MEDS: Apixaban 5 MG TABLET PO (21:30)
[2020-10-07] MEDS: Docusate Sodium 100 MG CAPSULE PO (21:30)
[2020-10-07] MEDS: LORazepam 0.5 MG TABLET PO (21:31)
[2020-10-07] MEDS: traZODone HCL 50 MG TABLET PO (21:31)
[2020-10-07 23:45] VITALS: BP 131/80; PULSE 73; RESP 16; TEMP 36.6; O2SAT 96
--- NOTE | 2020-10-08 | US_ITS ---
EXAMINATION: US EXTRACRANIAL CAROTID DUPLEX, BILATERAL CLINICAL INFORMATION: Hypertension, TIA COMPARISON: None TECHNIQUE: Real-time ultrasound and Doppler techniques (integrating B-mode 2-D vascular images, Doppler spectral analysis and color-flow Doppler imaging) were utilized to interrogate the extracranial carotid arteries, the vertebral arteries and proximal subclavian arteries bilaterally. The degree of stenosis is determined by criteria similar to NASCET. FINDINGS: Right Side: 1. There is minimal atherosclerotic atherosclerotic plaque seen in the bifurcation/proximal ICA region. 2. The common carotid artery PSV proximally is 127 cm/s and distally 110 cm/s. 3. The proximal internal carotid artery velocities are 80 cm/s systolic and 24 cm/s diastolic. 4. The proximal external carotid artery PSV is 123 cm/s. 5. The vertebral artery shows antegrade flow. 6. The subclavian artery waveforms are normal. Left Side: 1. There is minimal atherosclerotic atherosclerotic plaque seen in the bifurcation/proximal ICA region. 2. The common carotid artery PSV proximally is 100 cm/s and distally 104 cm/s. 3. The proximal internal carotid artery velocities are 53 cm/s systolic and 16 cm/s diastolic. 4. The proximal external carotid artery PSV is 127 cm/s. 5. The vertebral artery shows antegrade flow. 6. The subclavian artery waveforms are normal. US/US carotid duplex BI IMPRESSION: 1. RIGHT: Minimal, non-hemodynamically significant stenosis of the proximal right internal carotid artery corresponding to a 0-49% stenosis by velocity criteria. 2. LEFT: Minimal, non-hemodynamically significant stenosis of the proximal left internal carotid artery corresponding to a 0-49% stenosis by velocity criteria.
[2020-10-08] MEDS: 0.9 % Sodium Chloride Flush 3 ML SYRINGE IVFLUSH ×4 (00:27→21:20)
[2020-10-08 03:22] VITALS: BP 122/73; PULSE 80; RESP 18; TEMP 36.3; O2SAT 94
--- NOTE | 2020-10-08 06:15 | PC.NURSE ---
Patient had blood tinged bowel movement x1. Dr. Melton notified , will continue to monitor.
[2020-10-08 07:25] LABS: Cholesterol 136 mg/dL; HDL Cholesterol 35 mg/dL; LDL Cholesterol Calculated 84 mg/dl; Triglycerides 85 mg/dL
[2020-10-08] MEDS: DULoxetine HCl 20 MG CAPSULE.DR 40 MG PO (08:18)
[2020-10-08 08:19] VITALS: PULSE 71
[2020-10-08] MEDS: Aspirin 81 MG TAB.CHEW PO (08:19)
[2020-10-08] MEDS: LORazepam 0.5 MG TABLET PO ×2 (08:19→21:20)
[2020-10-08] MEDS: Apixaban 5 MG TABLET PO ×2 (08:19→21:20)
[2020-10-08] MEDS: Docusate Sodium 100 MG CAPSULE PO ×2 (08:19→21:20)
[2020-10-08] MEDS: Doxazosin Mesylate 2 MG TABLET PO (08:19)
[2020-10-08] MEDS: Ferrous Sulfate 324 MG TABLET.DR PO (08:19)
--- NOTE | 2020-10-08 08:19 | MHC.CM.PN ---
at this time dc plan is for patient to return to M5 when medically stable. cm to cont. to follow.
[2020-10-08] MEDS: Finasteride 5 MG TABLET PO (08:20)
[2020-10-08 11:39] VITALS: BP 101/66; PULSE 93; RESP 18; TEMP 36.4; O2SAT 94
--- NOTE | 2020-10-08 15:18 | HO.PM.IMPN ---
Subjective Subjective Date of Service: 10/08/20 Interval History: Seen in f/u for facial droop, stroke ruled out Review of Systems depressed, no fever, no avendano, no weakness, no facial droop Physical Exam Vital Signs: Vital Signs: Last Vital Signs Temp 97.6 F 10/08/20 11:39 Pulse 93 10/08/20 11:39 Resp 18 10/08/20 11:39 BP 101/66 10/08/20 11:39 Pulse Ox 94 10/08/20 11:39 Body Mass Index 25.0 General: Alert, is not saying, he looks very depressed Resp: normal resp efforl CVS: S1,S2,RRR GI: +BS, NT, no distention Skin: No rash Neuro: motor grossly intact, no facial droop Psych: appropriate affect Objective Data Current Medications Generic Name Dose Route Start Last Admin Trade Name Freq PRN Reason Stop Dose Admin Acetaminophen 650 mg 10/07/20 10:27 Acetaminophen Supp 650 Mg Supp.Rect MT Q6H PRN Pain, Mild (Pain Scale 1-3) Apixaban 5 mg 10/07/20 21:00 10/08/20 08:19 Apixaban 5 Mg Tablet PO 5 mg BID ROMMEL Administration Aspirin 81 mg 10/07/20 15:30 10/08/20 08:19 Aspirin 81 Mg Tab.Chew PO 81 mg DAILY ROMMEL Administration Atorvastatin Calcium 80 mg 10/08/20 21:00 Atorvastatin Calcium 80 Mg Tablet PO BEDTIME ROMMEL Docusate Sodium 100 mg 10/07/20 21:00 10/08/20 08:19 Docusate Sodium 100 Mg Capsule PO 100 mg BID ROMMEL Administration Doxazosin Mesylate 2 mg 10/08/20 09:00 10/08/20 08:19 Doxazosin Mesylate 2 Mg Tablet PO 2 mg DAILY ROMMEL Administration Protocol Duloxetine HCl 40 mg 10/08/20 09:00 10/08/20 08:18 Duloxetine Hcl 20 Mg Capsule. PO 40 mg DAILY ROMMEL Administration Ferrous Sulfate 324 mg 10/08/20 09:00 10/08/20 08:19 Ferrous Sulfate 324 Mg Tablet. PO 324 mg DAILY ROMMEL Administration Finasteride 5 mg 10/08/20 09:00 10/08/20 08:20 Finasteride 5 Mg Tablet PO 5 mg DAILY ROMMEL Administration Lorazepam 0.5 mg 10/07/20 21:00 10/08/20 14:50 Lorazepam 0.5 Mg Tablet PO Not Given TID ROMMEL Olanzapine 20 mg 10/07/20 21:00 10/07/20 21:30 Olanzapine 10 Mg Tablet PO 20 mg BEDTIME ROMMEL Administration Oxybutynin Chloride 5 mg 10/08/20 09:00 10/08/20 08:19 Oxybutynin Chloride Er 5 Mg Tab.Er.24 PO 5 mg DAILY ROMMEL Administration Polyethylene Glycol 17 gm 10/08/20 09:00 10/08/20 08:13 Polyethylene Glycol 3350 17 Gm Powd.Pack PO Not Given DAILY ROMMEL Sodium Chloride 3 ml 10/07/20 16:00 10/08/20 08:20 0.9 % Sodium Chloride Flush 3 Ml Syringe IVFLUSH 3 ml QSHIFT ROMMEL Administration Trazodone HCl 50 mg 10/07/20 21:00 10/07/20 21:31 Trazodone Hcl 50 Mg Tablet PO 50 mg BEDTIME ROMMEL Administration Assessment and Plan (1) Major depressive disorder, recurrent, severe with psychotic features: Status: Acute (2) Facial droop: Problem details: No obvious facial droop at this time. Possible TIA Status: Acute Assessment and Plan: 75/m with major depression, h/o PE on eliquis admitted to Psych for ECT treatment and this morning reportedly had transient episode of facial droop 1. Facial droop transient ? TIA--history was vague, exam unremarkable. Patient was sleeping on that part of the face and may have had some deformity there transiently. At any event CT scan of head showed no stroke and he would not have been a candidate for tPA given that he's on Eliquis. Carotid US shows no significant steonosis. Continue ASA, lipitor 80 2. h/o PE--continue Eliquis 3. History of Normoctic anemia--check CBC 4. Depression--psych to continue follow and continue ECT if it is established to help him, will have cardiology do an assessment. 5. DVT Prophylaxis--Eliquis
[2020-10-08 16:00] VITALS: BP 117/71; PULSE 86; RESP 18; TEMP 36.6; O2SAT 95
[2020-10-08 20:00] VITALS: BP 131/77; PULSE 90; RESP 16; TEMP 36.8; O2SAT 96
[2020-10-08] MEDS: Atorvastatin Calcium 80 MG TABLET PO (21:20)
[2020-10-08] MEDS: traZODone HCL 50 MG TABLET PO (21:20)
[2020-10-08] MEDS: OLANZapine 10 MG TABLET 20 MG PO (21:20)
[2020-10-08 23:59] VITALS: BP 124/63; PULSE 96; RESP 16; TEMP 36.9; O2SAT 95
[2020-10-09 03:17] VITALS: BP 153/83; PULSE 88; RESP 16; TEMP 36.6; O2SAT 95
[2020-10-09 07:45] VITALS: BP 117/67; PULSE 62; RESP 18; TEMP 36.2; O2SAT 94
[2020-10-09] MEDS: Aspirin 81 MG TAB.CHEW PO (10:23)
[2020-10-09 10:24] VITALS: BP 117/67; PULSE 62
[2020-10-09] MEDS: Ferrous Sulfate 324 MG TABLET.DR PO (10:24)
[2020-10-09] MEDS: 0.9 % Sodium Chloride Flush 3 ML SYRINGE IVFLUSH ×2 (10:24→16:14)
[2020-10-09] MEDS: LORazepam 0.5 MG TABLET PO ×2 (10:24→16:13)
[2020-10-09] MEDS: Doxazosin Mesylate 2 MG TABLET PO (10:24)
[2020-10-09] MEDS: Apixaban 5 MG TABLET PO (10:24)
[2020-10-09] MEDS: polyethylene glycoL 3350 17 GM POWD.PACK PO (10:24)
[2020-10-09] MEDS: DULoxetine HCl 20 MG CAPSULE.DR 40 MG PO (10:24)
[2020-10-09] MEDS: Docusate Sodium 100 MG CAPSULE PO (10:24)
[2020-10-09] MEDS: Finasteride 5 MG TABLET PO (10:25)
[2020-10-09 12:00] VITALS: BP 120/66; PULSE 73; RESP 20; TEMP 36.8; O2SAT 98
--- NOTE | 2020-10-09 13:10 | PM.CNCAR ---
History of Present Illness History of Present Illness Date of Service: 10/09/20 Requesting physician: Avel Zurita Chief complaint: Preop CV risk assessment Narrative: 75-year-old gentleman with depression with psychosis and catatonia who was admitted with worsening depression. While on the psych unit he was noticed to have facial droop and was transferred to medicine. He has been seen by Neurology at this stage and a CT scan of the head is normal. He was started on aspirin. He has known history of DVT in the past and has been on Eliquis. Patient is very withdrawn and history is very limited. On questioning he said he does not feel good but could not point out what is wrong. I reviewed the chart and most practitioners have documented similar challenges with the patient. Review of Systems Review of Systems: Yes Unobtainable due to mental condition PMFSH Past Medical History Medical History Dementia Depression Diverticulitis of colon with perforation GERD (gastroesophageal reflux disease) HTN (hypertension) Hyperlipidemia Major depressive disorder, recurrent, severe with psychotic features Pulmonary embolism SVT (supraventricular tachycardia) Family History Family History Brother Blood clot in vein Other No history of cardiac disorder Surgical History Surgical History H/O hernia repair History of colostomy reversal Status post Paula's procedure Social History Social History Household Members: Other Housing: Assisted Living Facility Alcohol intake: former Smoking Status: Never smoker Second Hand Smoke Exposure: No Use of substances other than those prescribed or required for medical reasons: No Currently Displaying Signs/Symptoms of Drug Intoxication Withdrawal: No Have you been hit, kicked, punched, or otherwise hurt by someone within the past year? If so, by whom?: No Do you feel safe in your current relationship?: No Current Relationship Is there a partner from a previous relationship who is making you feel unsafe now?: No Are you made to feel afraid or neglected: No Advance Directives: Yes Advance Directives on File: Yes Advance Directives Date on File: 07/27/20 Do you have thoughts of harming others: None Do you have a plan to hurt others: No Plan Recently lost weight without trying: Yes service: No ([employer]) Current occupational status: retired Sexual orientation: Straight/Heterosexual Meds Allergies Allergy/AdvReac Type Severity Reaction Status Date / Time No Known Allergies Allergy Verified 10/01/20 08:19 [No Known Allergies*] Home Medications Medication Instructions Recorded Confirmed Type doxazosin 2 mg PO DAILY 07/26/20 10/07/20 History olanzapine 20 mg PO BEDTIME 07/26/20 10/07/20 History oxybutynin chloride 5 mg PO DAILY 07/26/20 10/07/20 History docusate sodium [Colace] 100 mg PO BID 09/13/20 10/07/20 History polyethylene glycol 3350 [Miralax] 17 g PO DAILY 09/13/20 10/07/20 History duloxetine [Cymbalta] 40 mg PO DAILY 10/07/20 10/07/20 History ferrous sulfate 325 mg PO DAILY 10/07/20 10/07/20 History finasteride 5 mg PO DAILY 10/07/20 10/07/20 History lorazepam 0.5 mg PO TID 10/07/20 10/07/20 History trazodone 50 mg PO BEDTIME 10/07/20 10/07/20 History Physical Exam Vital Signs: Vital Signs: Last Vital Signs Temp 98.2 F 10/09/20 12:00 Pulse 73 10/09/20 12:00 Resp 20 10/09/20 12:00 BP 120/66 10/09/20 12:00 Pulse Ox 98 10/09/20 12:00 Body Mass Index 25.0 GENERAL APPEARANCE: in no acute distress, withdrawn. Trying to get out of bed saying he wants to get out of here. HEENT: unremarkable. HEAD: normocephalic, atraumatic. SKIN: no suspicious lesions, warm and dry. HEART: no murmurs, regular rate and rhythm, S1, S2 normal. LUNGS: clear to auscultation bilaterally. ABDOMEN: Soft, nontender. EXTREMITIES: No significant edema NEUROLOGIC: Moving all extremities. Following simple commands. Assessment and Plan (1) Major depressive disorder, recurrent, severe with psychotic features: Status: Acute (2) Preoperative cardiovascular examination: Status: Acute 75-year-old gentleman with major depression with psychosis and catatonia. We have been asked to assess his perioperative cardiovascular risk before he undergoes electroconvulsive therapy. Patient is quite withdrawn and history is quite unreliable. EKG has no dynamic changes. With his current situation I do not think stress testing will be feasible or helpful. I think if ECT has helped this gentleman in the past then I think it is reasonable to continue ECT. We can proceed with electroconvulsive therapy with an intermediate risk for cardiovascular complications. Thank you for allowing me to participate in the care of your patient. Please feel free to contact me if you have any questions.
--- NOTE | 2020-10-09 13:21 | MHC.CM.PN ---
pt returning to m5
--- NOTE | 2020-10-09 13:24 | P.DS_ITS ---
DS: Providers Provider Date of admission: 10/07/20 10:23 Primary care physician: Unknown Physician Consults: 10/07/20 10:25 Consult to Neurology Routine Consulting Provider: Aric Briscoe Reason for consultation: tia Has provider been notified: No 10/07/20 11:18 Consult to Psychiatry Routine Consulting Provider: Cooper Molina Reason for consultation: Depression with active suicide Has provider been notified: No 10/08/20 13:16 Consult to Cardiology Routine Consulting Provider: Noah Fitzgerald Reason for consultation: Pre ECT eval 10/09/20 11:44 Consult to Crisis Stat Reason for consultation: Ready to go back to Psych DS: Diagnosis Discharge Diagnosis (1) Major depressive disorder, recurrent, severe with psychotic features: Status: Acute (2) Preoperative cardiovascular examination: Status: Acute DS: Medications Discharge Medications Home Medications: Home Medications Medication Instructions Recorded Confirmed doxazosin 2 mg PO DAILY 07/26/20 10/07/20 olanzapine 20 mg PO BEDTIME 07/26/20 10/07/20 oxybutynin chloride 5 mg PO DAILY 07/26/20 10/07/20 docusate sodium [Colace] 100 mg PO BID 09/13/20 10/07/20 polyethylene glycol 3350 [Miralax] 17 g PO DAILY 09/13/20 10/07/20 duloxetine [Cymbalta] 40 mg PO DAILY 10/07/20 10/07/20 ferrous sulfate 325 mg PO DAILY 10/07/20 10/07/20 finasteride 5 mg PO DAILY 10/07/20 10/07/20 lorazepam 0.5 mg PO TID 10/07/20 10/07/20 trazodone 50 mg PO BEDTIME 10/07/20 10/07/20 Previous Rx's Medication Instructions Recorded apixaban [Eliquis] 5 mg PO BID #60 tab 08/24/20 DS: Summary Hospital Course Hospital Course: This is a 75-year-old male with history of psychotic depression with catatonia admitted for worsening depression. He was diagnosed with PE in August and put on Eliquis. He has been admitted to the [facility] unit since October 02 for depression and has been treated with ECT which seem to help him. This morning satff at the unit thought the patient had a left side facial droop when he woke to go the bathroom, it wasn't clear when he was last noted to be normal . Arrived at the unit within minutes and patient reportedly was back to his baseline and he could not offer any meaningful history other than saying I d on't feel goog he says this anytime you ask him how he feels. A stat head CT was unremarkable. The rest of Neuro exam is unremarkable. Hospital course:Patient upon evaluation in Psych did not have clinical sign/symptoms of stroke. A stat CT of the head was negative for stroke. He was transfered to intermediate care when he had frequent neuro checks per stroke protocol. Dr. Moy from Neuro saw him with no finding of sttroke and recommended carotid US showed no significant stenosis. His cholesterol is elevated and has been initiated on Lipitor. 3 days into hospitalization, he remains stable, with no change in Neuro exam, no facial droop has been recorded. Patient is to return to Psych unit for continuing treatment of his major depression with catatonia/Psychotic features and is very withdrawan and can make evaluation chanllenging. It's said that that ECT offers him best treatment and as such should be offfered to him as benefit outweight the risks with his present state. At this juncture, there is no medical contraindication for ECT. He has been evaluated by cardiology for cardiac clearance for ECT--see cardiology note for detail but deemed intermediate risk but not contrai ndication. Refer to cardiology note for details Time Spent with Patient Time attestation: Total time spent providing and/or coordinating discharge services: Quality: Stroke Reason Stroke Education Not Initiated: Patient noncompliance - general Physical Exam Vital Signs: Vital Signs: Last Vital Signs Temp 98.2 F 10/09/20 12:00 Pulse 73 10/09/20 12:00 Resp 20 10/09/20 12:00 BP 120/66 10/09/20 12:00 Pulse Ox 98 10/09/20 12:00 Body Mass Index 25.0 DS: Data Data Completed and Pending Labs on day of discharge: 10/07/20 10:21 Transfer Order Routine 10/07/20 10:23 Acetaminophen Supp [Tylenol Supp] 650 mg [place] Q6H PRN 10/07/20 16:00 0.9 % Sodium Chloride Flush [NS Flush] 3 ml IVFLUSH QSHIFT 10/07/20 21:00 Atorvastatin Calcium [Lipitor] 20 mg PO BEDTIME 10/08/20 carotid duplex BI Routine 10/08/20 05:42 Lipid Panel Routine Laboratory Last Values Triglycerides 85 mg/dL 10/08/20 05:42 Cholesterol 136 mg/dL 10/08/20 05:42 LDL Cholesterol, Calc 84 mg/dl 10/08/20 05:42 HDL Cholesterol 35 mg/dL 10/08/20 05:42 Discharge Plan Discharge Anticipated Discharge Date/Time: 10/09/20 19:01 Patient Disposition: Xfer Psychiatric Hosp Referrals: Physician,Unknown [Primary Care Provider] - Discharge Medications: Continued olanzapine 10 mg tablet 20 mg PO BEDTIME RF: 0 doxazosin 2 mg tablet 2 mg PO DAILY RF: 0 duloxetine [Cymbalta] 20 mg Capsule,Delayed Release(Dr/Ec) 40 mg PO DAILY RF: 0 lorazepam 0.5 mg Tablet 0.5 mg PO TID RF: 0 No Action olanzapine 10 mg Tablet 10 mg PO BEDTIME 30 Days Qty: 30 RF: 0 olanzapine 2.5 mg Tablet 2.5 mg PO BID PRN (Reason: Anxiety) 30 Days Qty: 60 RF: 0 duloxetine 20 mg Capsule,Delayed Release(Dr/Ec) 20 mg PO DAILY Qty: 30 RF: 0 Viibryd 10 mg Tablet 10 mg PO DAILY 30 Days Qty: 30 RF: 0 omeprazole 40 mg Capsule,Delayed Release(Dr/Ec) 40 mg PO BID@0630,1630 30 Days Qty: 60 RF: 0 atorvastatin 80 mg Tablet 80 mg PO BEDTIME Qty: 30 RF: 0 trazodone 50 mg Tablet 50 mg PO BEDTIME 30 Days Qty: 30 RF: 0 polyethylene glycol 3350 [Miralax] 17 gram Powder In Packet 17 g PO DAILY 30 Days RF: 0 ferrous sulfate 325 mg (65 mg iron) Tablet 325 mg PO DAILY 30 Days Qty: 30 RF: 0 docusate sodium [Colace] 100 mg Capsule 100 mg PO BID 60 Days Qty: 120 RF: 0 oxybutynin chloride 5 mg tablet 5 mg PO DAILY 30 Days Qty: 30 RF: 0 finasteride 5 mg Tablet 5 mg PO DAILY 30 Days Qty: 30 RF: 0 Eliquis 5 mg tablet 5 mg PO BID Qty: 60 RF: 0 Discharge Orders: Discharge Order (Routine); Ordered 10/09/20 Ordered By: Avel Zurita Diet: advance to usual diet Activity on Discharge: As tolerated Visit Report Forms: Patient Portal Discharge page Care Plan Goals: To return to baseline functioning Health Concerns: Major depression with psychotic features Plan of Treatment: Transfer to for further Psychiatric treatment Discharge Date/Time: 10/09/20 19:00
[2020-10-09 15:04] VITALS: BP 110/71; PULSE 92; RESP 18; TEMP 36.2; O2SAT 94
== END 2020-10-09 19:00 | DRG 92 ==
PROVIDERS: Admitting Provider Internal Medicine; Visit Provider Internal Medicine
DX: R29.810 Facial weakness (principal); F33.3 Major depressive disorder, recurrent, severe with psychotic symptoms; F03.90 Unspecified dementia, unspecified severity, without behavioral disturbance, psychotic disturbance, mood disturbance, and anxiety; E78.5 Hyperlipidemia, unspecified; Z86.711 Personal history of pulmonary embolism; Z79.01 Long term (current) use of anticoagulants; Z79.82 Long term (current) use of aspirin; Z79.899 Other long term (current) drug therapy
CPT/HCPCS: 36415; 80061; 93880; 97162; 97166; 97535; 99222

== ENCOUNTER 2020-10-09 19:14 | Inpatient (IN) | payer MEDICARE, OTHER, SELFPAY ==
[2020-10-09] MEDS: traZODone HCL 50 MG TABLET PO (20:40)
[2020-10-09] MEDS: Atorvastatin Calcium 80 MG TABLET PO (20:40)
[2020-10-09] MEDS: Apixaban 5 MG TABLET PO (20:40)
[2020-10-09] MEDS: Docusate Sodium 100 MG CAPSULE PO (20:40)
[2020-10-09] MEDS: LORazepam 0.5 MG TABLET PO (20:41)
[2020-10-09] MEDS: OLANZapine 10 MG TABLET 20 MG PO (20:41)
--- NOTE | 2020-10-09 21:19 | PC.ADMIT ---
pt returned to [facility] after assessment on medical floor due to a reported facial droop. face displays symmetry at this time. upon arrival placed on 1:1 status due to impairment/weal gait. gait belt being utilized. pt is restless and is frequently moving and fidgeting. when asked about movement pt reports ''i can't sit still'' also reported pain in hips and r knee. is fully oriented, able to call staff by their names. presents as anxious and hopeless. ''i can't do this'' ''how will i fit in this bed'' ''nothing can happen'' negative and perseverative and difficult to soothe or console patient. pt is drinking well, had smearing of BM on arrival to unit. pt did participate in admission process but had trouble due to being restless.
[2020-10-10] VITALS (13 sets, daily range): BP systolic 107–153; BP diastolic 56–94; PULSE 77–99; RESP 14–22; TEMP 36.3–37.1; O2SAT 91–98; BMI 27.2; BMI 25.0
--- NOTE | 2020-10-10 | XR_ITS ---
EXAMINATION: XR CHEST CLINICAL INFORMATION: Hypoxia COMPARISON: Chest x-ray 10/01/2020. CT chest 10/04/2020 TECHNIQUE: Frontal view of the chest was obtained. 11:35 PM FINDINGS: Lung volume low. There is a faint linear opacity in the left midlung. The right lung is normally aerated. There is no pleural effusion. Heart size is normal. Cardiac mediastinal contour normal. No pulmonary vascular congestion. XR/XR chest 1V IMPRESSION: Low lung volume. Faint linear opacity in the left midlung may be atelectasis.
--- NOTE | 2020-10-10 07:23 | MHC.SHP ---
Pre-Procedural Eval Section A The patient is an INPATIENT: Yes Changes since office visit: Yes New Medical Problems and Yes Changes in Medication; No Cold of Flu in the past 2 weeks and No Patient answered all questions The History & Physical has been completed within 30 days and I have reviewed it.: Yes Section B Chief Complaint: Major Depressive disorder Allergies: Allergies Allergy/AdvReac Type Severity Reaction Status Date / Time No Known Allergies Allergy Verified 10/01/20 08:19 [No Known Allergies*] Plan I have reviewed the history and physical and performed a pertinent physical examination on my patient. No changes have occurred unless specified.
--- NOTE | 2020-10-10 07:24 | HO.ECTPROC ---
ECT Procedure Note Diagnosis/Treatment Diagnosis: Major Depressive Disorder and Catatonia Previous ECT Date: 07/27/20 Current Treatment Number: 1 Treatment: Series Interval Clinical Notes: patient severely depressed withdrawn consent from the healthcare proxy patient also consents to procedure medical evaluation from Dr. Zurita reviewed ECT Settings Device: THYMATRON DGx Electrode Placement: Right Unilateral Program/Pulse Width: 0.50 Energy Percent: 80 Seizure Duration By EEG (in seconds): 36 Medications Administration General Anesthetic: Etomidate (12) Muscle Relaxant: Succinylcholine (100) Ancillary Medications Analgesics: Torodol - Pre ECT Anti-emetics: Zofran - Pre ECT Cardiovascular Medications: Labetolol (10 mg pre tx ) Miscillaneous Medications: Flumazenil Airway Management Airway Management: Bag Mask Ventilation Treatment Recommendations No Changes Recommended: No change Notes: labetolol helpful pre tx Pt Tolerated Procedure w/o Issue: Yes
--- NOTE | 2020-10-10 07:32 | P.CONAN_ITS ---
[facility] Past Medical History Medical History Dementia Depression Diverticulitis of colon with perforation GERD (gastroesophageal reflux disease) HTN (hypertension) Hyperlipidemia Major depressive disorder, recurrent, severe with psychotic features Pulmonary embolism SVT (supraventricular tachycardia) Family History Family History Brother Blood clot in vein Other No history of cardiac disorder Surgical History Surgical History H/O hernia repair History of colostomy reversal Status post Paula's procedure Social History Social History Household Members: Other Housing: Assisted Living Facility Do you presently have visiting nurse or other home services: Yes (services thru assisted living facility) Alcohol intake: former Smoking Status: Never smoker Second Hand Smoke Exposure: No Use of substances other than those prescribed or required for medical reasons: No Any prior treatment program specific to substance use: No Have you been hit, kicked, punched, or otherwise hurt by someone within the past year? If so, by whom?: No Do you feel safe in your current relationship?: No Current Relationship Is there a partner from a previous relationship who is making you feel unsafe now?: No Are you made to feel afraid or neglected: No Spiritual Healthcare Practices: none identified Roman Catholic Healthcare Practices: none identified Cultural Healthcare Practices: none identified Advance Directives: Yes Advance Directives on File: Yes Advance Directives Date on File: 07/27/20 Do you have thoughts of harming others: None Do you have a plan to hurt others: No Plan Recently lost weight without trying: No service: No ([employer]) Current occupational status: retired Sexual orientation: Straight/Heterosexual Meds Allergies Allergy/AdvReac Type Severity Reaction Status Date / Time No Known Allergies Allergy Verified 10/01/20 08:19 [No Known Allergies*] Home Medications Medication Instructions Recorded Confirmed Type doxazosin 2 mg PO DAILY 07/26/20 10/07/20 History olanzapine 20 mg PO BEDTIME 07/26/20 10/07/20 History oxybutynin chloride 5 mg PO DAILY 07/26/20 10/07/20 History docusate sodium [Colace] 100 mg PO BID 09/13/20 10/07/20 History polyethylene glycol 3350 [Miralax] 17 g PO DAILY 09/13/20 10/07/20 History duloxetine [Cymbalta] 40 mg PO DAILY 10/07/20 10/07/20 History ferrous sulfate 325 mg PO DAILY 10/07/20 10/07/20 History finasteride 5 mg PO DAILY 10/07/20 10/07/20 History lorazepam 0.5 mg PO TID 10/07/20 10/07/20 History trazodone 50 mg PO BEDTIME 10/07/20 10/07/20 History Exam Exam Date and Time: October 10, 2020 0732 Height,Weight and Vital Signs: Height 5 ft 6 in Last Vital Signs Temp 98.4 F 10/10/20 06:45 Pulse 91 10/10/20 06:45 Resp 18 10/10/20 06:45 BP 126/81 10/10/20 06:45 Pulse Ox 93 10/10/20 06:45 Airway Mallampati Class: II Denture: Upper and Lower Loose/Missing/Broken Teeth: Yes (Edentulous) Heart: RRR Lungs: CTA Assessment and Plan Assessment Anesthesia Assessment: Anesthesia Plan Discussed and Chart Reviewed Final Anesthetic Review NPO: Yes ASA Class: III Final Preanesthetic Review: Meds/Allgs Chart Reviewed, Consent Obtained/Reviewed and Anes Risks/Benef Reviewed Patient Risk: Intermediate Procedure Risk: Intermediate Anesthetic Plan Anesthetic Plan: GA Disposition: Standard PACU
[2020-10-10] MEDS: Apixaban 5 MG TABLET PO ×2 (09:14→20:56)
[2020-10-10] MEDS: Doxazosin Mesylate 2 MG TABLET PO (09:15)
[2020-10-10] MEDS: Aspirin 81 MG TAB.CHEW PO (09:15)
[2020-10-10] MEDS: Docusate Sodium 100 MG CAPSULE PO ×2 (09:15→20:55)
[2020-10-10] MEDS: LORazepam 0.5 MG TABLET PO ×2 (09:17→20:56)
[2020-10-10] MEDS: DULoxetine HCl 20 MG CAPSULE.DR 40 MG PO (09:17)
[2020-10-10] MEDS: Ferrous Sulfate 324 MG TABLET.DR PO (09:17)
[2020-10-10] MEDS: Finasteride 5 MG TABLET PO (09:19)
[2020-10-10] MEDS: polyethylene glycoL 3350 17 GM POWD.PACK PO (09:21)
--- NOTE | 2020-10-10 20:50 | P.HPPS_ITS ---
HPI Chief Complaint: Major Depressive disorder Sources of Information: patient interviewed and chart reviewed Additional Sources of Information: see d/c summary dr zurita HPI Narrative: [facility] to severe depression with the intention of ECT secondary to catatonia and depression. Was reported to have a facial droop while on the inpatient unit and was transferred to the medical floor. Neuro workup including CT scan carotid ultrasound and chest CT scan showed nothing remarkable. Patient medically cleared by Dr. Zurita who felt no contraindication to ECT which has been the on ly treatment to help the patient when he has been that ill HPI Chief Complaint: worsening depression/ocd Sources of Information: patient interviewed, chart reviewed and crisis/core team assessment reviewed HPI Narrative: THE PATIENT IS A 75-YEAR-OLD MALE WELL KNOWN TO THIS [employer]NAG[employer] INTERNS[employer] HISTORY OF PSYCHOTIC DEPRESSION WITH CATATONIA RESPONDS WELL TO ECT WAS REFERRED TO ER BY ANESTHESIA AND DR. MENDOSA AFTER SCHEDULED ECT WAS CANCELED ON 08/01. PATIENT WAS TACHYCARDIC WITHDRAWN INTERNALLY PREOCCUPIED AND WAS REFERRED FOR MEDICAL EVALUATION. HE WAS MEDICALLY EVALUATED IN THE EMERGENCY ROOM NOTED TO TACHYCARDIA ANEMIA PRESUMED TO BE STABLE SOME LUNG CONSOLIDATION WAS NOT TREATED FOR PNEUMONIA. HISTORY OF GOOD RESPONSE TO ECT HE HAS BEEN INCREASINGLY ISOLATED WITH THE PANDEMIC HE LIVES AT [facility]. PATIENT SEES DR. MENDOSA HE DOES GET MAINTENANCE ECT HE IS ON CYMBALTA ZYPREXA AND TRAZODONE PATIENT IS NOTED TO BE INCREASINGLY DEPRESSED INTERNALLY PREOCCUPIED MINIMAL INTERACTION AND ENGAGEMENT WEIGHT LOSS NOTED. PATIENT HAS DETERIORATED SINCE MISSING ECT SECONDARY TO PULMONARY EMBOLISM IN THE Past Psychiatric History: HISTORY OF PAST PSYCHIATRIC HOSPITALIZATIONS ON M 5 FOR RECURRENCE PSYCHOTIC DEPRESSION HAS RESPONDED WELL TO ECT Medical Evaluation Reviewed: Yes VITAL SIGNS PULSE OX REPORTEDLY STABLE NOTED TO HAVE ANEMIA HISTORY OF COLON CANCER [facility] Medical History Dementia Depression Diverticulitis of colon with perforation GERD (gastroesophageal reflux disease) HTN (hypertension) Hyperlipidemia SVT (supraventricular tachycardia) Surgical History H/O hernia repair History of colostomy reversal Status post Paula's procedure Social History: PATIENT'S PATIENT LIVES ALONE IN [facility] HOME HAS A STEPDAUGHTER WHO IS HEALTHCARE PROXY HAS A BROTHER WHO LIVES IN [place] THE PATIENT IS A Substance History: NOT APPLICABLE Trauma History: NOT APPLICABLE Past Psychiatric History: HISTORY OF PAST PSYCHIATRIC HOSPITALIZATIONS ON M 5 FOR RECURRENCE PSYCHOTIC DEPRESSION HAS RESPONDED WELL TO ECT [facility] Medical History Dementia Depression Diverticulitis of colon with perforation GERD (gastroesophageal reflux disease) HTN (hypertension) Hyperlipidemia Major depressive disorder, recurrent, severe with psychotic features Pulmonary embolism SVT (supraventricular tachycardia) Surgical History H/O hernia repair History of colostomy reversal Status post Paula's procedure Social History: PATIENT'S PATIENT LIVES ALONE IN [facility] HOME HAS A STEPDAUGHTER WHO IS HEALTHCARE PROXY HAS A BROTHER WHO LIVES IN [place] THE PATIENT IS A Trauma History: NOT APPLICABLE Diagnostics Vital Signs (24Hr): Vital Signs - 24 hr 10/10/20 05:55 10/10/20 06:00 10/10/20 06:45 Temperature 98.5 F 98.5 F 98.4 F Pulse Rate 99 99 91 Respiratory Rate 16 18 Blood Pressure 119/73 119/73 126/81 Pulse Oximetry 93 10/10/20 07:55 10/10/20 08:00 10/10/20 08:05 Temperature 98.7 F Pulse Rate 77 86 85 Respiratory Rate 18 22 H 22 H Blood Pressure 153/81 H 127/82 143/94 H Pulse Oximetry 98 96 95 10/10/20 08:10 10/10/20 08:25 10/10/20 09:00 Temperature 98.4 F 97.9 F Pulse Rate 92 89 88 Respiratory Rate 20 20 16 Blood Pressure 134/86 107/68 107/57 L Pulse Oximetry 93 93 95 10/10/20 09:04 10/10/20 09:15 10/10/20 15:53 Temperature 97.9 F 97.3 F Pulse Rate 88 88 91 Respiratory Rate 16 Blood Pressure 107/57 L 107/57 L 113/65 Pulse Oximetry 95 Body Mass Index 25.0 Meds/Allergies Meds Home Medications Acetaminophen (Acetaminophen Supp 650 Mg Supp.Rect) 650 mg [place] Q6H PRN PRN Reason: Pain, Mild (Pain Scale 1-3) Acetaminophen (Acetaminophen 325 Mg Tablet) 650 mg PO Q6H PRN PRN Reason: Headache/Pain Mild Scale (1-3) Al Hydroxide/Mg Hydroxide (Magnesium Hydrox/Alum Hydrox 30 Ml Oral.Susp) 30 ml PO Q6H PRN PRN Reason: Heartburn/Nausea Apixaban (Apixaban 5 Mg Tablet) 5 mg PO BID [facility] Last Admin: 10/10/20 09:14 Dose: 5 mg Documented by: Aspirin (Aspirin 81 Mg Tab.Chew) 81 mg PO DAILY [facility] Last Admin: 10/10/20 09:15 Dose: 81 mg Documented by: Atorvastatin Calcium (Atorvastatin Calcium 80 Mg Tablet) 80 mg PO BEDTIME [facility] Last Admin: 10/09/20 20:40 Dose: 80 mg Documented by: Docusate Sodium (Docusate Sodium 100 Mg Capsule) 100 mg PO BID [facility] Last Admin: 10/10/20 09:15 Dose: 100 mg Documented by: Doxazosin Mesylate (Doxazosin Mesylate 2 Mg Tablet) 2 mg PO DAILY [facility]; Protocol Last Admin: 10/10/20 09:15 Dose: 2 mg Documented by: Duloxetine HCl (Duloxetine Hcl 20 Mg Capsule.) 40 mg PO DAILY [facility] Last Admin: 10/10/20 09:17 Dose: 40 mg Documented by: Ferrous Sulfate (Ferrous Sulfate 324 Mg Tablet.) 324 mg PO DAILY [facility] Last Admin: 10/10/20 09:17 Dose: 324 mg Documented by: Finasteride (Finasteride 5 Mg Tablet) 5 mg PO DAILY [facility] Last Admin: 10/10/20 09:19 Dose: 5 mg Documented by: Lorazepam (Lorazepam 0.5 Mg Tablet) 0.5 mg PO TID [facility] Last Admin: 10/10/20 15:07 Dose: Not Given Documented by: Magnesium Hydroxide (Milk Of Magnesia 30 Ml Oral.Susp) 30 ml PO DAILY PRN PRN Reason: Constipation Olanzapine (Olanzapine 10 Mg Tablet) 20 mg PO BEDTIME [facility] Last Admin: 10/09/20 20:41 Dose: 20 mg Documented by: Oxybutynin Chloride (Oxybutynin Chloride Er 5 Mg Tab.Er.24) 5 mg PO DAILY [facility] Last Admin: 10/10/20 09:17 Dose: 5 mg Documented by: Polyethylene Glycol (Polyethylene Glycol 3350 17 Gm Powd.Pack) 17 gm PO DAILY [facility] Last Admin: 10/10/20 09:21 Dose: 17 gm Documented by: Trazodone HCl (Trazodone Hcl 50 Mg Tablet) 50 mg PO BEDTIME [facility] Last Admin: 10/09/20 20:40 Dose: 50 mg Documented by: Allergies Allergies Allergy/AdvReac Type Severity Reaction Status Date / Time No Known Allergies Allergy Verified 10/01/20 08:19 [No Known Allergies*] Mental Status Exam Mental Status Exam Patient Appearance: Disheveled and Unkempt Patient Orientation: Person, Place and Situation Level of Consciousness: Drowsy Patient Behavior: Dependent Behavior Comments: one word answers lowsy Mood Description: Constricted Affect Description: Flat Patient Cognition Impaired: Yes Ability to Follow Directions: Poor Speech Pattern: Slurred Thought Process: Slowed Thinking and Confusion Thought Content: positive for Poverty of Content Depressive Symptoms: Diff. Making Decisions and Muscle Tension Abnormal Motor Activity Signs and Symptoms: Psychomotor Retardation Judgement: Poor Assessment & Plan Assessment & Plan (1) Major depressive disorder, recurrent, severe with psychotic features: Status: Acute Code(s): F33.3 - Major depressive disorder, recurrent, severe with psychotic symptoms Assessment and Plan: no evidence of stroke patient medically stabilized on IMC no acute medical problems were noted patient does have a history of pulmonary embolism. Severe recurrent depression with catatonia only responsive to ECT missed maintenance treatment secondary to pulmonary embolism in early August and has relapse. First ECT completed unilateral treatment tolerated well Patient educated on: diagnosis, ECT and medical condition Informed Consent: further education needed Reason for continued inpatient stay Substantial Risk for: harm to self, inability to function and med/psych decompensation
[2020-10-10] MEDS: OLANZapine 10 MG TABLET 20 MG PO (20:55)
[2020-10-10] MEDS: Atorvastatin Calcium 80 MG TABLET PO (20:55)
[2020-10-10] MEDS: traZODone HCL 50 MG TABLET PO (20:56)
--- NOTE | 2020-10-10 23:00 | PC.NURSE ---
checked on pt. when sleeping, took vs at approx. 2145, pt. had a 02 sat. of 91% and 89%. doc kayla altman notified, hospitalist melissa informed per tiger text. received stat order for x-ray.
--- NOTE | 2020-10-10 23:52 | PC.NURSE ---
pt. was brought per wheel chair at approx 2345 to the ed/x ray dept. for a chest x-ray. results are pending. pt. is back in his nori 506-2 and went back to sleep.
[2020-10-11] VITALS (7 sets, daily range): BP systolic 102–111; BP diastolic 57–62; PULSE 73–78; RESP 16; TEMP 36.6; O2SAT 92–96; BMI 24.5
[2020-10-11 08:33] LABS: Eosinophils Percent Auto 0.2 % (0-4); Hematocrit 32.4 % (42-52); Hemoglobin 10.9 g/dl (14.0-18.0); Imm Gran Abs Auto 0.02 X10*3/uL (0.00-0.03); Imm Gran Pct Auto 0.5 % (0.0-0.4); Lymphocytes Absolute Auto 0.7 X10*3/uL (1.2-4.9); Lymphocytes Percent Auto 15.6 % (20-40); MANUAL DIFF FLAG SCAN; Mean Corpuscular HGB Conc 33.6 g/dl (31.0-36.0); Mean Corpuscular Hemoglobin 31.8 pg (27.0-33.0); Mean Corpuscular Volume 94.5 fL (80-98); Mean Platelet Volume 8.7 fL (9.4-12.4); Monocytes Absolute Auto 0.6 X10*3/uL (0.1-1.2); Monocytes Percent Auto 14.2 % (2-11); Neutrophils Percent Auto 69.5 % (45-73); Platelet Count 147 X10*3/uL (160-400); Red Blood Count 3.43 X10*6/uL (4.60-5.80); Red Cell Distribution Width 13.2 % (11.0-16.0); SCAN SMEAR FLAG 1; White Blood Count 4.4 X10*3/uL (4.8-10.8)
[2020-10-11] MEDS: LORazepam 0.5 MG TABLET PO ×2 (08:37→21:10)
[2020-10-11] MEDS: Aspirin 81 MG TAB.CHEW PO (08:37)
[2020-10-11] MEDS: DULoxetine HCl 20 MG CAPSULE.DR 40 MG PO (08:37)
[2020-10-11] MEDS: Docusate Sodium 100 MG CAPSULE PO ×2 (08:37→21:10)
[2020-10-11] MEDS: Apixaban 5 MG TABLET PO ×2 (08:37→21:10)
[2020-10-11] MEDS: Doxazosin Mesylate 2 MG TABLET PO (08:38)
[2020-10-11] MEDS: Ferrous Sulfate 324 MG TABLET.DR PO (08:39)
[2020-10-11] MEDS: Finasteride 5 MG TABLET PO (08:39)
[2020-10-11] MEDS: polyethylene glycoL 3350 17 GM POWD.PACK PO (08:45)
[2020-10-11 10:21] LABS: SLIDE REVIEW VERIFIED
--- NOTE | 2020-10-11 20:07 | HO.PSYCHPN ---
Subjective Subjective Date of Service: 10/11/20 Reason For Visit: Major Depressive disorder Subjective Notes: Conditional Voluntary Interim History: the patient is depressed flat withdrawn. He remains on one-to-one. We did discuss the use of a walker. Patient also discussed some degree of urinary hesitancy a chronic problem denies active SI Medication Compliance: Yes Side effects from medications: Yes Attending Groups: No Review of Systems Constitutional: Reports daytime sleepiness, Reports fatigue, Reports lethargy, Reports poor appetite and Reports weight loss Gastrointestinal: Reports constipation Genitourinary: Reports urinary hesitancy Endocrine: Reports fatigue Mental Status Exam Mental Status Exam Patient Appearance: Disheveled and Unkempt Patient Orientation: Person, Place and Situation Level of Consciousness: Lethargic Patient Behavior: Dependent and Anxious Behavior Comments: one word answers lowsy Mood Description: Constricted and Depressed Affect Description: Depressed, Flat and Apprehensive Patient Cognition Impaired: Yes Ability to Follow Directions: Fair Speech Pattern: Clear, Monotone and Soft-Spoken Thought Process: Slowed Thinking and Confusion Thought Content: positive for [place], positive for Poverty of Content, negative for Suicidal Ideation and negative for Homicidal Ideation Depressive Symptoms: Diff. Making Decisions, Muscle Tension, Sleeping More Than Usual, Increased Fatigue and Loss of Energy Abnormal Motor Activity Signs and Symptoms: Psychomotor Retardation Judgement: Poor Diagnostics Vital Signs (24Hr): Vital Signs - 24 hr 10/10/20 22:00 10/11/20 02:00 10/11/20 05:00 Temperature 98.1 F Pulse Rate 83 Respiratory Rate 14 Blood Pressure 115/56 L Pulse Oximetry 91 L 94 96 10/11/20 06:00 10/11/20 08:38 10/11/20 16:49 Temperature 97.9 F 97.8 F Pulse Rate 78 78 73 Respiratory Rate 16 Blood Pressure 111/62 111/62 102/57 L Pulse Oximetry 96 10/11/20 16:51 Temperature 97.8 F Pulse Rate 73 Respiratory Rate 16 Blood Pressure 102/57 L Pulse Oximetry 92 Body Mass Index 24.5 Labs Results: 10/11/20 08:25 Labs: Laboratory Results - last 48 hr 10/11/20 08:25 WBC 4.4 L RBC 3.43 L Hgb 10.9 L Hct 32.4 L MCV 94.5 MCH 31.8 MCHC 33.6 RDW 13.2 Plt Count 147 L MPV 8.7 L Immature Gran % (Auto) 0.5 H Neut % (Auto) 69.5 Lymph % (Auto) 15.6 L [place] % (Auto) 14.2 H Eos % (Auto) 0.2 Baso % (Auto) 0.0 Lymph # (Auto) 0.7 L [place] # (Auto) 0.6 Eos # (Auto) 0.0 Baso # (Auto) 0.0 Abs Immat Gran (auto) 0.02 Absolute Neuts (auto) 3.0 Absolute Nucleated RBC 0.000 Nucleated RBC % (auto) 0.0 Smear Tech's Comments VERIFIED Imaging Radiology Impressions: ITS Impressions Chest X-Ray 10/10/20 00:00 IMPRESSION: Low lung volume. Faint linear opacity in the left midlung may be atelectasis. Medications Medications Current Medications Generic Name Dose Route Start Last Admin Trade Name Freq PRN Reason Stop Dose Admin Acetaminophen 650 mg 10/09/20 19:36 Acetaminophen Supp 650 Mg Supp.Rect [place] Q6H PRN Pain, Mild (Pain Scale 1-3) Acetaminophen 650 mg 10/09/20 19:37 Acetaminophen 325 Mg Tablet PO Q6H PRN Headache/Pain Mild Scale (1-3) Al Hydroxide/Mg Hydroxide 30 ml 10/09/20 19:37 Magnesium Hydrox/Alum Hydrox 30 Ml Oral.Susp PO Q6H PRN Heartburn/Nausea Apixaban 5 mg 10/09/20 21:00 10/11/20 08:37 Apixaban 5 Mg Tablet PO 5 mg BID ROMMEL Administration Aspirin 81 mg 10/10/20 09:00 10/11/20 08:37 Aspirin 81 Mg Tab.Chew PO 81 mg DAILY ROMMEL Administration Atorvastatin Calcium 80 mg 10/09/20 21:00 10/10/20 20:55 Atorvastatin Calcium 80 Mg Tablet PO 80 mg BEDTIME ROMMEL Administration Docusate Sodium 100 mg 10/09/20 21:00 10/11/20 08:37 Docusate Sodium 100 Mg Capsule PO 100 mg BID ROMMEL Administration Doxazosin Mesylate 2 mg 10/10/20 09:00 10/11/20 08:38 Doxazosin Mesylate 2 Mg Tablet PO 2 mg DAILY ROMMEL Administration Protocol Duloxetine HCl 40 mg 10/10/20 09:00 10/11/20 08:37 Duloxetine Hcl 20 Mg Capsule.Dr PO 40 mg DAILY ROMMEL Administration Ferrous Sulfate 324 mg 10/10/20 09:00 10/11/20 08:39 Ferrous Sulfate 324 Mg Tablet.Dr PO 324 mg DAILY ROMMEL Administration Finasteride 5 mg 10/10/20 09:00 10/11/20 08:39 Finasteride 5 Mg Tablet PO 5 mg DAILY ROMMEL Administration Lorazepam 0.5 mg 10/09/20 21:00 10/11/20 14:54 Lorazepam 0.5 Mg Tablet PO Not Given TID ROMMEL Magnesium Hydroxide 30 ml 10/09/20 19:37 Milk Of Magnesia 30 Ml Oral.Susp PO DAILY PRN Constipation Olanzapine 20 mg 10/09/20 21:00 10/10/20 20:55 Olanzapine 10 Mg Tablet PO 20 mg BEDTIME ROMMEL Administration Oxybutynin Chloride 5 mg 10/10/20 09:00 10/11/20 08:37 Oxybutynin Chloride Er 5 Mg Tab.Er.24 PO 5 mg DAILY ROMMEL Administration Polyethylene Glycol 17 gm 10/10/20 09:00 10/11/20 08:45 Polyethylene Glycol 3350 17 Gm Powd.Pack PO 17 gm DAILY ROMMEL Administration Trazodone HCl 50 mg 10/09/20 21:00 10/10/20 20:56 Trazodone Hcl 50 Mg Tablet PO 50 mg BEDTIME ROMMEL Administration Allergies Allergies Allergy/AdvReac Type Severity Reaction Status Date / Time No Known Allergies Allergy Verified 10/01/20 08:19 [No Known Allergies*] Assessment & Plan Assessment & Plan (1) Physical deconditioning: Status: Acute Code(s): R53.81 - Other malaise (2) Major depressive disorder, recurrent, severe with psychotic features: Status: Acute Code(s): F33.3 - Major depressive disorder, recurrent, severe with psychotic symptoms Assessment and Plan: continue ECT lower olanzapine 15 mg monitor ability to urinate PT and OT input maintain one-to-one secondary to fall risk Greater than 50% of the session was spent on counseling and/or coordination of care
[2020-10-11] MEDS: traZODone HCL 50 MG TABLET PO (21:09)
[2020-10-11] MEDS: Atorvastatin Calcium 80 MG TABLET PO (21:09)
[2020-10-11] MEDS: OLANZapine 10 MG TABLET 15 MG PO (21:10)
[2020-10-12] VITALS (14 sets, daily range): BP systolic 89–148; BP diastolic 50–76; PULSE 69–118; RESP 16; TEMP 36.4–37.7; O2SAT 89–97
--- NOTE | 2020-10-12 07:46 | P.CONAN_ITS ---
[facility] Past Medical History Medical History Dementia Depression Diverticulitis of colon with perforation GERD (gastroesophageal reflux disease) HTN (hypertension) Hyperlipidemia Major depressive disorder, recurrent, severe with psychotic features Pulmonary embolism SVT (supraventricular tachycardia) Family History Family History Brother Blood clot in vein Other No history of cardiac disorder Surgical History Surgical History H/O hernia repair History of colostomy reversal Status post Paula's procedure Social History Social History Household Members: Other Housing: Assisted Living Facility Alcohol intake: former Smoking Status: Never smoker Second Hand Smoke Exposure: No Advance Directives Date on File: 07/27/20 service: Yes ([employer]) Current occupational status: retired Sexual orientation: Straight/Heterosexual Meds Allergies Allergy/AdvReac Type Severity Reaction Status Date / Time No Known Allergies Allergy Verified 10/01/20 08:19 [No Known Allergies*] Home Medications Medication Instructions Recorded Confirmed Type doxazosin 2 mg PO DAILY 07/26/20 10/07/20 History olanzapine 20 mg PO BEDTIME 07/26/20 10/07/20 History oxybutynin chloride 5 mg PO DAILY 07/26/20 10/07/20 History docusate sodium [Colace] 100 mg PO BID 09/13/20 10/07/20 History polyethylene glycol 3350 [Miralax] 17 g PO DAILY 09/13/20 10/07/20 History duloxetine [Cymbalta] 40 mg PO DAILY 10/07/20 10/07/20 History ferrous sulfate 325 mg PO DAILY 10/07/20 10/07/20 History finasteride 5 mg PO DAILY 10/07/20 10/07/20 History lorazepam 0.5 mg PO TID 10/07/20 10/07/20 History trazodone 50 mg PO BEDTIME 10/07/20 10/07/20 History Exam Exam Date and Time: October 12, 2020 0746 Height,Weight and Vital Signs: Height 5 ft 10.87 in Weight 79.4 kg Last Vital Signs Temp 97.8 F 10/12/20 06:33 Pulse 80 10/12/20 06:33 Resp 16 10/12/20 06:33 BP 104/58 L 10/12/20 06:33 Pulse Ox 89 L 10/12/20 06:33 Pertinent Lab Results Pertinent Lab Results: Laboratory Tests 10/11/20 08:25 WBC 4.4 L RBC 3.43 L Hgb 10.9 L Hct 32.4 L MCV 94.5 MCH 31.8 MCHC 33.6 RDW 13.2 Plt Count 147 L MPV 8.7 L Immature Gran % (Auto) 0.5 H Neut % (Auto) 69.5 Lymph % (Auto) 15.6 L [place] % (Auto) 14.2 H Eos % (Auto) 0.2 Baso % (Auto) 0.0 Lymph # (Auto) 0.7 L [place] # (Auto) 0.6 Eos # (Auto) 0.0 Baso # (Auto) 0.0 Abs Immat Gran (auto) 0.02 Absolute Neuts (auto) 3.0 Absolute Nucleated RBC 0.000 Nucleated RBC % (auto) 0.0 Smear Tech's Comments VERIFIED Airway Mallampati Class: II TM Dist: >3cm Neck ROM: Full Denture: Upper Assessment and Plan Assessment Anesthesia Assessment: Anesthesia Plan Discussed and Chart Reviewed Final Anesthetic Review NPO: Yes ASA Class: II Final Preanesthetic Review: No Changes in Pt Med Stat, Meds/Allgs Chart Reviewed, Consent Obtained/Reviewed and Anes Risks/Benef Reviewed Patient Risk: Low Procedure Risk: Low Assessment/Block/Sedation in SS: Assess/Block/Sedation-SS Anesthetic Plan Anesthetic Plan: GA Disposition: Standard PACU
--- NOTE | 2020-10-12 08:11 | HO.ECTPROC ---
ECT Procedure Note Diagnosis/Treatment Diagnosis: Bipolar disorder Previous ECT Date: 09/19/20 Treatment: Maintenance Interval Clinical Notes: pt c/o depressed mood occ muscle twitching has dec vraylar back to 4.5 mg ECT Settings Device: THYMATRON DGx Electrode Placement: Right Unilateral Program/Pulse Width: 0.25 Energy Percent: 80 Seizure Duration By EEG (in seconds): 63 Medications Administration General Anesthetic: Etomidate (12) Muscle Relaxant: Succinylcholine (100) Ancillary Medications Analgesics: Torodol - Pre ECT Anti-emetics: Zofran - Pre ECT Miscillaneous Medications: Midazolam (2 mg post) Airway Management Airway Management: Bag Mask Ventilation Treatment Recommendations No Changes Recommended: No change Notes: inc fluvoxamine 125 mg daily watch for cycling Pt Tolerated Procedure w/o Issue: Yes
[2020-10-12] MEDS: DULoxetine HCl 20 MG CAPSULE.DR 40 MG PO (09:03)
[2020-10-12] MEDS: LORazepam 0.5 MG TABLET PO ×3 (09:03→21:53)
[2020-10-12] MEDS: Apixaban 5 MG TABLET PO ×2 (09:03→21:53)
[2020-10-12] MEDS: Aspirin 81 MG TAB.CHEW PO (09:03)
[2020-10-12] MEDS: Ferrous Sulfate 324 MG TABLET.DR PO (09:04)
[2020-10-12] MEDS: Doxazosin Mesylate 2 MG TABLET PO (09:04)
[2020-10-12] MEDS: Docusate Sodium 100 MG CAPSULE PO ×2 (09:04→21:54)
[2020-10-12] MEDS: Finasteride 5 MG TABLET PO (09:05)
[2020-10-12] MEDS: polyethylene glycoL 3350 17 GM POWD.PACK PO (09:11)
--- NOTE | 2020-10-12 20:57 | HO.PSYCHPN ---
Subjective Subjective Date of Service: 10/12/20 Reason For Visit: Major Depressive disorder Subjective Notes: Conditional Voluntary Interim History: patient tolerating ECT mood remains depressed Medication Compliance: Yes Side effects from medications: Yes Mental Status Exam Mental Status Exam Patient Appearance: Disheveled and Unkempt Patient Orientation: Person, Place and Situation Level of Consciousness: Lethargic Patient Behavior: Dependent and Anxious Behavior Comments: one word answers lowsy Mood Description: Constricted and Depressed Affect Description: Depressed, Flat and Apprehensive Patient Cognition Impaired: Yes Ability to Follow Directions: Fair Speech Pattern: Clear, Monotone and Soft-Spoken Thought Process: Slowed Thinking and Confusion Thought Content: positive for [place], positive for Poverty of Content, negative for Suicidal Ideation and negative for Homicidal Ideation Depressive Symptoms: Diff. Making Decisions, Muscle Tension, Sleeping More Than Usual, Increased Fatigue and Loss of Energy Abnormal Motor Activity Signs and Symptoms: Psychomotor Retardation Judgement: Poor Diagnostics Vital Signs (24Hr): Vital Signs - 24 hr 10/12/20 04:00 10/12/20 06:00 10/12/20 06:20 Temperature 97.5 F 97.5 F Pulse Rate 69 69 Respiratory Rate 16 Blood Pressure 101/59 L 101/59 L Pulse Oximetry 96 96 10/12/20 06:33 10/12/20 07:53 10/12/20 07:58 Temperature 97.8 F 98 F Pulse Rate 80 82 85 Respiratory Rate 16 16 16 Blood Pressure 104/58 L 148/68 H 117/75 Pulse Oximetry 89 L 96 94 10/12/20 08:03 10/12/20 08:08 10/12/20 08:23 Temperature Pulse Rate 91 89 79 Respiratory Rate 16 16 16 Blood Pressure 127/73 122/75 120/76 Pulse Oximetry 94 94 97 10/12/20 08:39 10/12/20 08:52 10/12/20 09:04 Temperature 98 F Pulse Rate 75 82 82 Respiratory Rate 16 16 Blood Pressure 107/59 L 104/56 L 104/56 L Pulse Oximetry 92 97 Body Mass Index 24.5 Labs Results: 10/11/20 08:25 Labs: Laboratory Results - last 48 hr 10/11/20 08:25 WBC 4.4 L RBC 3.43 L Hgb 10.9 L Hct 32.4 L MCV 94.5 MCH 31.8 MCHC 33.6 RDW 13.2 Plt Count 147 L MPV 8.7 L Immature Gran % (Auto) 0.5 H Neut % (Auto) 69.5 Lymph % (Auto) 15.6 L [place] % (Auto) 14.2 H Eos % (Auto) 0.2 Baso % (Auto) 0.0 Lymph # (Auto) 0.7 L [place] # (Auto) 0.6 Eos # (Auto) 0.0 Baso # (Auto) 0.0 Abs Immat Gran (auto) 0.02 Absolute Neuts (auto) 3.0 Absolute Nucleated RBC 0.000 Nucleated RBC % (auto) 0.0 Smear Tech's Comments VERIFIED Imaging Radiology Impressions: ITS Impressions Chest X-Ray 10/10/20 00:00 IMPRESSION: Low lung volume. Faint linear opacity in the left midlung may be atelectasis. Medications Medications Current Medications Generic Name Dose Route Start Last Admin Trade Name Freq PRN Reason Stop Dose Admin Acetaminophen 650 mg 10/09/20 19:36 Acetaminophen Supp 650 Mg Supp.Rect [place] Q6H PRN Pain, Mild (Pain Scale 1-3) Acetaminophen 650 mg 10/09/20 19:37 Acetaminophen 325 Mg Tablet PO Q6H PRN Headache/Pain Mild Scale (1-3) Al Hydroxide/Mg Hydroxide 30 ml 10/09/20 19:37 Magnesium Hydrox/Alum Hydrox 30 Ml Oral.Susp PO Q6H PRN Heartburn/Nausea Apixaban 5 mg 10/09/20 21:00 10/12/20 09:03 Apixaban 5 Mg Tablet PO 5 mg BID ROMMEL Administration Aspirin 81 mg 10/10/20 09:00 10/12/20 09:03 Aspirin 81 Mg Tab.Chew PO 81 mg DAILY ROMMEL Administration Atorvastatin Calcium 80 mg 10/09/20 21:00 10/11/20 21:09 Atorvastatin Calcium 80 Mg Tablet PO 80 mg BEDTIME ROMMEL Administration Docusate Sodium 100 mg 10/09/20 21:00 10/12/20 09:04 Docusate Sodium 100 Mg Capsule PO 100 mg BID ROMMEL Administration Doxazosin Mesylate 2 mg 10/10/20 09:00 10/12/20 09:04 Doxazosin Mesylate 2 Mg Tablet PO 2 mg DAILY ROMMEL Administration Protocol Duloxetine HCl 40 mg 10/10/20 09:00 10/12/20 09:03 Duloxetine Hcl 20 Mg Capsule.Dr PO 40 mg DAILY ROMMEL Administration Ferrous Sulfate 324 mg 10/10/20 09:00 10/12/20 09:04 Ferrous Sulfate 324 Mg Tablet.Dr PO 324 mg DAILY ROMMEL Administration Finasteride 5 mg 10/10/20 09:00 10/12/20 09:05 Finasteride 5 Mg Tablet PO 5 mg DAILY ROMMEL Administration Lorazepam 0.5 mg 10/09/20 21:00 10/12/20 14:43 Lorazepam 0.5 Mg Tablet PO 0.5 mg TID ROMMEL Administration Magnesium Hydroxide 30 ml 10/09/20 19:37 Milk Of Magnesia 30 Ml Oral.Susp PO DAILY PRN Constipation Olanzapine 15 mg 10/11/20 21:00 10/11/20 21:10 Olanzapine 10 Mg Tablet PO 15 mg BEDTIME ROMMEL Administration Polyethylene Glycol 17 gm 10/10/20 09:00 10/12/20 09:11 Polyethylene Glycol 3350 17 Gm Powd.Pack PO 17 gm DAILY ROMMEL Administration Trazodone HCl 50 mg 10/09/20 21:00 10/11/20 21:09 Trazodone Hcl 50 Mg Tablet PO 50 mg BEDTIME ROMMEL Administration Allergies Allergies Allergy/AdvReac Type Severity Reaction Status Date / Time No Known Allergies Allergy Verified 10/01/20 08:19 [No Known Allergies*] Assessment & Plan Assessment & Plan (1) Major depressive disorder, recurrent, severe with psychotic features: Status: Acute Code(s): F33.3 - Major depressive disorder, recurrent, severe with psychotic symptoms Assessment and Plan: patient continue ECT continue one-to-one (2) Physical deconditioning: Status: Acute Code(s): R53.81 - Other malaise Greater than 50% of the session was spent on counseling and/or coordination of care
[2020-10-12] MEDS: traZODone HCL 50 MG TABLET PO (21:53)
[2020-10-12] MEDS: OLANZapine 10 MG TABLET 15 MG PO (21:54)
[2020-10-12] MEDS: Atorvastatin Calcium 80 MG TABLET PO (21:54)
[2020-10-13 09:00] VITALS: BP 123/69; PULSE 92; RESP 18; TEMP 36.8; O2SAT 94
[2020-10-13] MEDS: Aspirin 81 MG TAB.CHEW PO (09:05)
[2020-10-13] MEDS: DULoxetine HCl 20 MG CAPSULE.DR 40 MG PO (09:05)
[2020-10-13] MEDS: LORazepam 0.5 MG TABLET PO ×3 (09:05→20:15)
[2020-10-13] MEDS: Finasteride 5 MG TABLET PO (09:05)
[2020-10-13] MEDS: Ferrous Sulfate 324 MG TABLET.DR PO (09:06)
[2020-10-13] MEDS: Docusate Sodium 100 MG CAPSULE PO ×2 (09:06→20:15)
[2020-10-13] MEDS: Apixaban 5 MG TABLET PO ×2 (09:07→20:15)
[2020-10-13 09:36] VITALS: BP 85/57; PULSE 67
[2020-10-13] MEDS: polyethylene glycoL 3350 17 GM POWD.PACK PO (09:36)
[2020-10-13 13:00] VITALS: BP 115/56; PULSE 89
--- NOTE | 2020-10-13 18:00 | HO.PSYCHPN ---
Subjective Subjective Date of Service: 10/13/20 Reason For Visit: Major Depressive disorder Interim History: Pt seen; chart reviewed, case discussed vitals reviewed: hypotensive at first, the remained normotensive; otherwise WNL Labs reviewed: ANC wnl; mild thrombocytopenia Pt lying in bed; 1:1 sitter due to falls risk nursing staff reports that pt vomited today, small amounts, secondary to coughing, however this resolved. Pt says he's not good since he can't sleep but does not elaborate beyond that and difficult to engage further. No eye contact. He does confirm that he's here for ECT. Mental Status Exam Mental Status Exam Patient Appearance: Disheveled Patient Orientation: Person, Place and Situation Level of Consciousness: Awake Patient Behavior: Passive and Poor Eye Contact Mood Description: Depressed Affect Description: Blunted Speech Pattern: Clear Thought Process: Goal Oriented Thought Content: positive for Poverty of Content Judgement: Fair Diagnostics Vital Signs (24Hr): Vital Signs - 24 hr 10/12/20 18:05 10/12/20 18:40 10/13/20 09:00 Temperature 98.8 F 99.8 F 98.2 F Pulse Rate 118 H 117 H 92 Respiratory Rate 18 Blood Pressure 89/50 L 120/65 123/69 Pulse Oximetry 94 10/13/20 09:36 10/13/20 13:00 Temperature Pulse Rate 67 89 Respiratory Rate Blood Pressure 85/57 L 115/56 L Pulse Oximetry Body Mass Index 24.5 Labs Results: 10/11/20 08:25 Imaging Radiology Impressions: ITS Impressions Chest X-Ray 10/10/20 00:00 IMPRESSION: Low lung volume. Faint linear opacity in the left midlung may be atelectasis. Medications Medications Current Medications Generic Name Dose Route Start Last Admin Trade Name Freq PRN Reason Stop Dose Admin Acetaminophen 650 mg 10/09/20 19:36 Acetaminophen Supp 650 Mg Supp.Rect [place] Q6H PRN Pain, Mild (Pain Scale 1-3) Acetaminophen 650 mg 10/09/20 19:37 Acetaminophen 325 Mg Tablet PO Q6H PRN Headache/Pain Mild Scale (1-3) Al Hydroxide/Mg Hydroxide 30 ml 10/09/20 19:37 Magnesium Hydrox/Alum Hydrox 30 Ml Oral.Susp PO Q6H PRN Heartburn/Nausea Apixaban 5 mg 10/09/20 21:00 10/13/20 09:07 Apixaban 5 Mg Tablet PO 5 mg BID ROMMEL Administration Aspirin 81 mg 10/10/20 09:00 10/13/20 09:05 Aspirin 81 Mg Tab.Chew PO 81 mg DAILY ROMMEL Administration Atorvastatin Calcium 80 mg 10/09/20 21:00 10/12/20 21:54 Atorvastatin Calcium 80 Mg Tablet PO 80 mg BEDTIME ROMMEL Administration Docusate Sodium 100 mg 10/09/20 21:00 10/13/20 09:06 Docusate Sodium 100 Mg Capsule PO 100 mg BID ROMMEL Administration Doxazosin Mesylate 2 mg 10/10/20 09:00 10/13/20 09:36 Doxazosin Mesylate 2 Mg Tablet PO Not Given DAILY ROMMEL Protocol Duloxetine HCl 40 mg 10/10/20 09:00 10/13/20 09:05 Duloxetine Hcl 20 Mg Capsule. PO 40 mg DAILY ROMMEL Administration Ferrous Sulfate 324 mg 10/10/20 09:00 10/13/20 09:06 Ferrous Sulfate 324 Mg Tablet. PO 324 mg DAILY ROMMEL Administration Finasteride 5 mg 10/10/20 09:00 10/13/20 09:05 Finasteride 5 Mg Tablet PO 5 mg DAILY ROMMEL Administration Lorazepam 0.5 mg 10/09/20 21:00 10/13/20 15:53 Lorazepam 0.5 Mg Tablet PO 0.5 mg TID ROMMEL Administration Lorazepam 0.5 mg 10/12/20 20:52 Lorazepam 0.5 Mg Tablet PO Q6H PRN anxiety/restlessness Magnesium Hydroxide 30 ml 10/09/20 19:37 Milk Of Magnesia 30 Ml Oral.Susp PO DAILY PRN Constipation Olanzapine 15 mg 10/11/20 21:00 10/12/20 21:54 Olanzapine 10 Mg Tablet PO 15 mg BEDTIME ROMMEL Administration Polyethylene Glycol 17 gm 10/10/20 09:00 10/13/20 09:36 Polyethylene Glycol 3350 17 Gm Powd.Pack PO 17 gm DAILY ROMMEL Administration Trazodone HCl 50 mg 10/09/20 21:00 10/12/20 21:53 Trazodone Hcl 50 Mg Tablet PO 50 mg BEDTIME ROMMEL Administration Allergies Allergies Allergy/AdvReac Type Severity Reaction Status Date / Time No Known Allergies Allergy Verified 10/01/20 08:19 [No Known Allergies*] Assessment & Plan (1) Major depressive disorder, recurrent, severe with psychotic features: Assessment and Plan: patient to continue with ECT continue one-to-one No changes to primary team treatment plan (2) Physical deconditioning: Greater than 50% of the session was spent on counseling and/or coordination of care
[2020-10-13] MEDS: traZODone HCL 50 MG TABLET PO (20:15)
[2020-10-13] MEDS: OLANZapine 10 MG TABLET 15 MG PO (20:16)
[2020-10-13] MEDS: Atorvastatin Calcium 80 MG TABLET PO (20:16)
[2020-10-13 21:10] VITALS: TEMP 37.6
[2020-10-14 07:09] VITALS: BP 98/55; PULSE 66; RESP 18; TEMP 36.6; O2SAT 94
[2020-10-14] MEDS: Apixaban 5 MG TABLET PO ×2 (08:44→20:54)
[2020-10-14] MEDS: DULoxetine HCl 20 MG CAPSULE.DR 40 MG PO (08:45)
[2020-10-14] MEDS: Ferrous Sulfate 324 MG TABLET.DR PO (08:46)
[2020-10-14] MEDS: LORazepam 0.5 MG TABLET PO ×3 (08:46→20:54)
[2020-10-14] MEDS: Aspirin 81 MG TAB.CHEW PO (08:46)
[2020-10-14] MEDS: Finasteride 5 MG TABLET PO (08:47)
[2020-10-14] MEDS: Docusate Sodium 100 MG CAPSULE PO ×2 (09:07→20:54)
[2020-10-14 09:08] VITALS: BP 98/55; PULSE 66
[2020-10-14] MEDS: polyethylene glycoL 3350 17 GM POWD.PACK PO (09:08)
--- NOTE | 2020-10-14 13:46 | P.PNPSI_ITS ---
Subjective Subjective Date of Service: 10/14/20 Reason For Visit: Major Depressive disorder Interim History: Pt seen; chart reviewed and case discussed Vitals reviewed: hypotensive Labs reviewed: no new labs Pt remains at stable, depressed, with latent speech and barely answering questions. That said, staff reports that last night, he was more talkative with nursing Pt is hypotensive and BP meds held; Staff report that patient is drinking liquids with encouragement residential mortgage underwriter consulted medicine for recs on BP meds given continued hypotension Medication Compliance: Yes Mental Status Exam Mental Status Exam Patient Appearance: Disheveled Patient Orientation: Person Level of Consciousness: Awake Patient Behavior: Passive Mood Description: Depressed Affect Description: Blunted Speech Pattern: Impoverished and Delayed Thought Process: Slowed Thinking Thought Content: positive for Poverty of Content Abnormal Motor Activity Signs and Symptoms: Psychomotor Retardation Judgement: Poor Judgement and Insight: impaired Diagnostics Vital Signs (24Hr): Vital Signs - 24 hr 10/13/20 21:10 10/14/20 07:09 10/14/20 09:08 Temperature 99.7 F 97.9 F Pulse Rate 66 66 Respiratory Rate 18 Blood Pressure 98/55 L 98/55 L Pulse Oximetry 94 Body Mass Index 24.5 Labs Results: 10/11/20 08:25 Imaging Radiology Impressions: ITS Impressions Chest X-Ray 10/10/20 00:00 IMPRESSION: Low lung volume. Faint linear opacity in the left midlung may be atelectasis. Medications Medications Current Medications Generic Name Dose Route Start Last Admin Trade Name Freq PRN Reason Stop Dose Admin Acetaminophen 650 mg 10/09/20 19:36 Acetaminophen Supp 650 Mg Supp.Rect [place] Q6H PRN Pain, Mild (Pain Scale 1-3) Acetaminophen 650 mg 10/09/20 19:37 Acetaminophen 325 Mg Tablet PO Q6H PRN Headache/Pain Mild Scale (1-3) Al Hydroxide/Mg Hydroxide 30 ml 10/09/20 19:37 Magnesium Hydrox/Alum Hydrox 30 Ml Oral.Susp PO Q6H PRN Heartburn/Nausea Apixaban 5 mg 10/09/20 21:00 10/14/20 08:44 Apixaban 5 Mg Tablet PO 5 mg BID ROMMEL Administration Aspirin 81 mg 10/10/20 09:00 10/14/20 08:46 Aspirin 81 Mg Tab.Chew PO 81 mg DAILY ROMMEL Administration Atorvastatin Calcium 80 mg 10/09/20 21:00 10/13/20 20:16 Atorvastatin Calcium 80 Mg Tablet PO 80 mg BEDTIME ROMMEL Administration Docusate Sodium 100 mg 10/09/20 21:00 10/14/20 09:07 Docusate Sodium 100 Mg Capsule PO 100 mg BID ROMMEL Administration Doxazosin Mesylate 2 mg 10/10/20 09:00 10/14/20 09:08 Doxazosin Mesylate 2 Mg Tablet PO Not Given DAILY ROMMEL Protocol Duloxetine HCl 40 mg 10/10/20 09:00 10/14/20 08:45 Duloxetine Hcl 20 Mg Capsule. PO 40 mg DAILY ROMMEL Administration Ferrous Sulfate 324 mg 10/10/20 09:00 10/14/20 08:46 Ferrous Sulfate 324 Mg Tablet. PO 324 mg DAILY ROMMEL Administration Finasteride 5 mg 10/10/20 09:00 10/14/20 08:47 Finasteride 5 Mg Tablet PO 5 mg DAILY ROMMEL Administration Lorazepam 0.5 mg 10/09/20 21:00 10/14/20 08:46 Lorazepam 0.5 Mg Tablet PO 0.5 mg TID ROMMEL Administration Lorazepam 0.5 mg 10/12/20 20:52 Lorazepam 0.5 Mg Tablet PO Q6H PRN anxiety/restlessness Magnesium Hydroxide 30 ml 10/09/20 19:37 Milk Of Magnesia 30 Ml Oral.Susp PO DAILY PRN Constipation Olanzapine 15 mg 10/11/20 21:00 10/13/20 20:16 Olanzapine 10 Mg Tablet PO 15 mg BEDTIME ROMMEL Administration Polyethylene Glycol 17 gm 10/10/20 09:00 10/14/20 09:08 Polyethylene Glycol 3350 17 Gm Powd.Pack PO 17 gm DAILY ROMMEL Administration Trazodone HCl 50 mg 10/09/20 21:00 10/13/20 20:15 Trazodone Hcl 50 Mg Tablet PO 50 mg BEDTIME ROMMEL Administration Allergies Allergies Allergy/AdvReac Type Severity Reaction Status Date / Time No Known Allergies Allergy Verified 10/01/20 08:19 [No Known Allergies*] Assessment & Plan DX: MDD, severe Physical deconditioning: patient to continue with ECT continue one-to-one Consult placed to medicine regarding BP meds given continued hypotension Medicine to consider Incentive Spirometry Otherwise, no changes. Pt depressed but psychiatrically stable Greater than 50% of the session was spent on counseling and/or coordination of care
--- NOTE | 2020-10-14 14:02 | PC.NURSE ---
pt ate 100% of breakfast and 75% of lunch. he has been sitting in the kitchen. walked in the hallway x3 with pt observer.
--- NOTE | 2020-10-14 15:46 | PM.EVENT ---
Event Note Date of Service: 10/14/20 Event Note: Called to see patient for low blood pressure. Patient's BP had been on the low side for the past day or 2, with readings as low as 85/57. Staff reports he has had complaints of shortness of breath and dizziness. He has been eating and drinking fluid with encouragement. Obtaining history from the patient is difficult given that he is minimally verbal but at the time of my evaluation he denies dizziness. -Will check basic labs, CBC, BMP -1L NS -Hold Cardura -Follow Blood pressure closely -PT evaluation
[2020-10-14 16:06] LABS: Basophils Percent Auto 0.2 % (0-2); Hematocrit 28.9 % (42-52); Hemoglobin 9.7 g/dl (14.0-18.0); Imm Gran Abs Auto 0.01 X10*3/uL (0.00-0.03); Imm Gran Pct Auto 0.2 % (0.0-0.4); Lymphocytes Absolute Auto 0.7 X10*3/uL (1.2-4.9); Lymphocytes Percent Auto 17.1 % (20-40); MANUAL DIFF FLAG SCAN; Mean Corpuscular HGB Conc 33.6 g/dl (31.0-36.0); Mean Corpuscular Hemoglobin 31.3 pg (27.0-33.0); Mean Corpuscular Volume 93.2 fL (80-98); Mean Platelet Volume 8.8 fL (9.4-12.4); Monocytes Absolute Auto 0.4 X10*3/uL (0.1-1.2); Monocytes Percent Auto 10.4 % (2-11); Neutrophils Absolute Auto 2.9 X10*3/uL (2.0-8.3); Neutrophils Percent Auto 71.1 % (45-73); Platelet Count 169 X10*3/uL (160-400); Red Cell Distribution Width 13.3 % (11.0-16.0); SCAN SMEAR FLAG 1
[2020-10-14 16:23] LABS: SLIDE REVIEW VERIFIED
[2020-10-14 16:25] VITALS: BP 97/55; PULSE 69; TEMP 37.1; O2SAT 94
[2020-10-14 16:27] LABS: Anion Gap 11 (12-20); Blood Urea Nitrogen 26 mg/dL (9-16); Calcium 7.4 mg/dL (8.4-10.2); Carbon Dioxide 25 mmol/L (22-29); Chloride 106 mmol/L (96-108); Creatinine Clr Calc Pharmacy 87.5; Estimated Glomerular Filt Rate > 60; Glucose Random 139 mg/dL (60-115); Potassium 3.4 mmol/l (3.3-5.1); Sodium 139 mmol/L (135-145)
[2020-10-14] MEDS: 0.9 % Sodium Chloride 500 ML 999 ML IV (17:17)
--- NOTE | 2020-10-14 18:36 | P.EN_ITS ---
Event Note Date of Service: 10/14/20 Event Note: labs show H/H slowly trending down, recent iron studies c/w iron d eficiency. Due to PE needs to continue AC with Queta. Would consider DELIA wilkinson.
[2020-10-14] MEDS: Atorvastatin Calcium 80 MG TABLET PO (20:52)
[2020-10-14] MEDS: traZODone HCL 50 MG TABLET PO (20:52)
[2020-10-14] MEDS: OLANZapine 10 MG TABLET 15 MG PO (20:52)
--- NOTE | 2020-10-14 21:39 | PC.NURSE ---
SCHEDULED ATIVAN 0.5 MG PO ADMINISTERED AT 2048. T/W REALIZED THAT PT. HAS ECT SCHEDULED THE NEXT MORNING, Thursday10/15/20/ DOC Liv LAW CONTACTED PER TIGER TEXT. HE RESPONDED NOTHING TO DO ABOUT IT. WE TRY TO AVOID IT BUT IT WILL MOSTLY BE OUT OF THE SYSTEM BY TOMORROW. JUST DOCUMENT IT . WILL PASS ON DETAILS ABOUT MED. ADMINISTRATION IN REPORT.
--- NOTE | 2020-10-14 21:45 | PC.NURSE ---
RECEIVED ORDER FOR INCENTIVE SPIROMETER AT 1543. T/W WENT TO THE ED TO LOCATE THE SPIROMETER, THEY DID NOT HAVE ONE. Roberto CELESTE. GLUER MACHINE SETUP OPERATOR INFORMED TO BRING ONE TO UNIT, HAVE NOT RECEIVED SPIROMETER THIS SHIFT.
--- NOTE | 2020-10-14 22:09 | PC.NURSE ---
INCENTIVE SPIROMETER DELIVERED BY Gaby DYNAMOMETER TESTER ROULA AT 220
[2020-10-15] VITALS (13 sets, daily range): BP systolic 89–160; BP diastolic 51–82; PULSE 64–116; RESP 16–18; TEMP 36.4–37.1; O2SAT 92–98
--- NOTE | 2020-10-15 07:26 | HO.ANESPROP2 ---
[facility] Past Medical History Medical History Dementia Depression Diverticulitis of colon with perforation GERD (gastroesophageal reflux disease) HTN (hypertension) Hyperlipidemia Major depressive disorder, recurrent, severe with psychotic features Pulmonary embolism SVT (supraventricular tachycardia) Family History Family History Brother Blood clot in vein Other No history of cardiac disorder Surgical History Surgical History H/O hernia repair History of colostomy reversal Status post Paula's procedure Social History Social History Household Members: Other Housing: Assisted Living Facility Alcohol intake: former Smoking Status: Never smoker Second Hand Smoke Exposure: No Advance Directives Date on File: 07/27/20 service: Yes ([employer]) Current occupational status: retired Sexual orientation: Straight/Heterosexual Meds Allergies Allergy/AdvReac Type Severity Reaction Status Date / Time No Known Allergies Allergy Verified 10/01/20 08:19 [No Known Allergies*] Home Medications Medication Instructions Recorded Confirmed Type doxazosin 2 mg PO DAILY 07/26/20 10/07/20 History olanzapine 20 mg PO BEDTIME 07/26/20 10/07/20 History oxybutynin chloride 5 mg PO DAILY 07/26/20 10/07/20 History docusate sodium [Colace] 100 mg PO BID 09/13/20 10/07/20 History polyethylene glycol 3350 [Miralax] 17 g PO DAILY 09/13/20 10/07/20 History duloxetine [Cymbalta] 40 mg PO DAILY 10/07/20 10/07/20 History ferrous sulfate 325 mg PO DAILY 10/07/20 10/07/20 History finasteride 5 mg PO DAILY 10/07/20 10/07/20 History lorazepam 0.5 mg PO TID 10/07/20 10/07/20 History trazodone 50 mg PO BEDTIME 10/07/20 10/07/20 History Exam Exam Date and Time: October 15, 2020 0726 Height,Weight and Vital Signs: Height 5 ft 10.87 in Weight 79.4 kg Last Vital Signs Temp 98.7 F 10/15/20 06:12 Pulse 77 10/15/20 06:12 Resp 16 10/15/20 06:12 BP 104/58 L 10/15/20 06:12 Pulse Ox 95 10/15/20 06:12 Pertinent Lab Results Pertinent Lab Results: Laboratory Tests 10/11/20 10/14/20 10/14/20 08:25 15:58 15:58 WBC 4.4 L 4.0 L RBC 3.43 L 3.10 L Hgb 10.9 L 9.7 L Hct 32.4 L 28.9 L MCV 94.5 93.2 MCH 31.8 31.3 MCHC 33.6 33.6 RDW 13.2 13.3 Plt Count 147 L 169 MPV 8.7 L 8.8 L Immature Gran % (Auto) 0.5 H 0.2 Neut % (Auto) 69.5 71.1 Lymph % (Auto) 15.6 L 17.1 L [place] % (Auto) 14.2 H 10.4 Eos % (Auto) 0.2 1.0 Baso % (Auto) 0.0 0.2 Lymph # (Auto) 0.7 L 0.7 L [place] # (Auto) 0.6 0.4 Eos # (Auto) 0.0 0.0 Baso # (Auto) 0.0 0.0 Abs Immat Gran (auto) 0.02 0.01 Absolute Neuts (auto) 3.0 2.9 Absolute Nucleated RBC 0.000 0.000 Nucleated RBC % (auto) 0.0 0.0 Smear Tech's Comments VERIFIED VERIFIED Sodium 139 Potassium 3.4 Chloride 106 Carbon Dioxide 25 Anion Gap 11 L BUN 26 H Creatinine 0.73 Estim Creat Clear Calc 87.5 Estimated GFR > 60 Random Glucose 139 H Calcium 7.4 L D Airway Mallampati Class: II TM Dist: >3cm Neck ROM: Full Denture: Upper
--- NOTE | 2020-10-15 07:32 | MHC.SHP ---
Pre-Procedural Eval Section A The patient is an INPATIENT: Yes Changes since office visit: Yes New Medical Problems and Yes Patient answered all questions; No Cold of Flu in the past 2 weeks and No Changes in Medication The History & Physical has been completed within 30 days and I have reviewed it.: Yes Section B Chief Complaint: Major Depressive disorder Allergies: Allergies Allergy/AdvReac Type Severity Reaction Status Date / Time No Known Allergies Allergy Verified 10/01/20 08:19 [No Known Allergies*] Plan I have reviewed the history and physical and performed a pertinent physical examination on my patient. No changes have occurred unless specified.
[2020-10-15 07:36] LABS: MANUAL DIFF FLAG NO
[2020-10-15 07:45] LABS: Basophils Percent Auto 0.2 % (0-2); Eosinophils Absolute Auto 0.1 X10*3/uL (0.0-0.4); Hematocrit 28.8 % (42-52); Hemoglobin 9.7 g/dl (14.0-18.0); Imm Gran Abs Auto 0.02 X10*3/uL (0.00-0.03); Imm Gran Pct Auto 0.4 % (0.0-0.4); Lymphocytes Absolute Auto 0.8 X10*3/uL (1.2-4.9); Lymphocytes Percent Auto 15.6 % (20-40); Mean Corpuscular HGB Conc 33.7 g/dl (31.0-36.0); Mean Corpuscular Hemoglobin 31.6 pg (27.0-33.0); Mean Corpuscular Volume 93.8 fL (80-98); Mean Platelet Volume 8.9 fL (9.4-12.4); Monocytes Absolute Auto 0.5 X10*3/uL (0.1-1.2); Monocytes Percent Auto 10.2 % (2-11); Neutrophils Absolute Auto 3.5 X10*3/uL (2.0-8.3); Neutrophils Percent Auto 72.6 % (45-73); Platelet Count 192 X10*3/uL (160-400); Red Blood Count 3.07 X10*6/uL (4.60-5.80); Red Cell Distribution Width 13.2 % (11.0-16.0); White Blood Count 4.8 X10*3/uL (4.8-10.8)
--- NOTE | 2020-10-15 08:20 | HO.ECTPROC ---
ECT Procedure Note Diagnosis/Treatment Diagnosis: Major Depressive Disorder and Catatonia Current Treatment Number: 3 Treatment: Series Interval Clinical Notes: pt with severe depression hopelessness was given iv fluids dehydration some decrease hct 28.8 but stable reviewed with anesthesia ekg vs o2 seems stable for procedure ECT Settings Device: THYMATRON DGx Seizure Duration By EEG (in seconds): 47 Medications Administration General Anesthetic: Etomidate (12) and Propofol (30 mg post) Muscle Relaxant: Succinylcholine (100) Ancillary Medications Miscillaneous Medications: Flumazenil Airway Management Airway Management: Bag Mask Ventilation Treatment Recommendations Notes: no toradol hct low Pt Tolerated Procedure w/o Issue: Yes
--- NOTE | 2020-10-15 08:25 | HO.PSYCHPN ---
Subjective Subjective Date of Service: 10/15/20 Reason For Visit: Major Depressive disorder Subjective Notes: Conditional Voluntary Interim History: see ECT note for full information. Patient had episode of hypotension decreased hematocrit internal Medicine was consulted H&H was stable today at 28.8 and patient was hydrated with IV fluids and treated with ECT with good effect and well tolerated. Patient with intense despair thoughts that he wishes he were but was awake alert knew he was having ECT Medication Compliance: Yes Attending Groups: No Mental Status Exam Mental Status Exam Patient Appearance: Disheveled Patient Orientation: Person, Place and Situation Level of Consciousness: Awake and Lethargic Patient Behavior: Passive Mood Description: Depressed Affect Description: Blunted Speech Pattern: Impoverished and Delayed Hallucinations: None Thought Process: Slowed Thinking Thought Content: positive for Linear, positive for Poverty of Content, positive for Slowed Thinking and positive for Suicidal Ideation Depressive Symptoms: Thoughts of /Suicide and Difficulty Concentrating Abnormal Motor Activity Signs and Symptoms: Psychomotor Retardation Judgement: Poor Judgement and Insight: impaired Diagnostics Vital Signs (24Hr): Vital Signs - 24 hr 10/14/20 09:08 10/14/20 16:25 10/15/20 06:05 Temperature 98.7 F 98.7 F Pulse Rate 66 69 77 Respiratory Rate 16 Blood Pressure 98/55 L 97/55 L 104/58 L Pulse Oximetry 94 95 10/15/20 06:12 10/15/20 06:18 10/15/20 07:43 Temperature 98.7 F 98.0 F Pulse Rate 77 81 89 Respiratory Rate 16 17 16 Blood Pressure 104/58 L 106/72 119/67 Pulse Oximetry 95 92 94 10/15/20 08:15 Temperature 98.5 F Pulse Rate 98 Respiratory Rate 18 Blood Pressure 160/80 H Pulse Oximetry 98 Body Mass Index 24.5 Labs Results: 10/16/20 09:56 10/16/20 09:56 Labs: Laboratory Results - last 48 hr 10/14/20 10/14/20 10/15/20 15:58 15:58 07:28 WBC 4.0 L 4.8 RBC 3.10 L 3.07 L Hgb 9.7 L 9.7 L Hct 28.9 L 28.8 L MCV 93.2 93.8 MCH 31.3 31.6 MCHC 33.6 33.7 RDW 13.3 13.2 Plt Count 169 192 MPV 8.8 L 8.9 L Immature Gran % (Auto) 0.2 0.4 Neut % (Auto) 71.1 72.6 Lymph % (Auto) 17.1 L 15.6 L [place] % (Auto) 10.4 10.2 Eos % (Auto) 1.0 1.0 Baso % (Auto) 0.2 0.2 Lymph # (Auto) 0.7 L 0.8 L [place] # (Auto) 0.4 0.5 Eos # (Auto) 0.0 0.1 Baso # (Auto) 0.0 0.0 Abs Immat Gran (auto) 0.01 0.02 Absolute Neuts (auto) 2.9 3.5 Absolute Nucleated RBC 0.000 0.000 Nucleated RBC % (auto) 0.0 0.0 Smear Tech's Comments VERIFIED Sodium 139 Potassium 3.4 Chloride 106 Carbon Dioxide 25 Anion Gap 11 L BUN 26 H Creatinine 0.73 Estim Creat Clear Calc 87.5 Estimated GFR > 60 Random Glucose 139 H Calcium 7.4 L D Imaging Radiology Impressions: ITS Impressions Chest X-Ray 10/10/20 00:00 IMPRESSION: Low lung volume. Faint linear opacity in the left midlung may be atelectasis. Medications Medications Current Medications Generic Name Dose Route Start Last Admin Trade Name Freq PRN Reason Stop Dose Admin Acetaminophen 650 mg 10/09/20 19:36 Acetaminophen Supp 650 Mg Supp.Rect DC Q6H PRN Pain, Mild (Pain Scale 1-3) Acetaminophen 650 mg 10/09/20 19:37 Acetaminophen 325 Mg Tablet PO Q6H PRN Headache/Pain Mild Scale (1-3) Al Hydroxide/Mg Hydroxide 30 ml 10/09/20 19:37 Magnesium Hydrox/Alum Hydrox 30 Ml Oral.Susp PO Q6H PRN Heartburn/Nausea Apixaban 5 mg 10/09/20 21:00 10/14/20 20:54 Apixaban 5 Mg Tablet PO 5 mg BID ROMMEL Administration Aspirin 81 mg 10/10/20 09:00 10/14/20 08:46 Aspirin 81 Mg Tab.Chew PO 81 mg DAILY ROMMEL Administration Atorvastatin Calcium 80 mg 10/09/20 21:00 10/14/20 20:52 Atorvastatin Calcium 80 Mg Tablet PO 80 mg BEDTIME ROMMEL Administration Docusate Sodium 100 mg 10/09/20 21:00 10/14/20 20:54 Docusate Sodium 100 Mg Capsule PO 100 mg BID ROMMEL Administration Doxazosin Mesylate 2 mg 10/10/20 09:00 10/14/20 09:08 Doxazosin Mesylate 2 Mg Tablet PO Not Given DAILY ROMMEL Protocol Duloxetine HCl 40 mg 10/10/20 09:00 10/14/20 08:45 Duloxetine Hcl 20 Mg Capsule. PO 40 mg DAILY ROMMEL Administration Ferrous Sulfate 324 mg 10/10/20 09:00 10/14/20 08:46 Ferrous Sulfate 324 Mg Tablet. PO 324 mg DAILY ROMMEL Administration Finasteride 5 mg 10/10/20 09:00 10/14/20 08:47 Finasteride 5 Mg Tablet PO 5 mg DAILY ROMMEL Administration Lactated Ringer's 1,000 mls @ 100 mls/hr 10/15/20 07:45 Lr IVCONT .Q10H ROMMEL Lorazepam 0.5 mg 10/12/20 20:52 Lorazepam 0.5 Mg Tablet PO Q6H PRN anxiety/restlessness Lorazepam 0.5 mg 10/15/20 09:00 Lorazepam 0.5 Mg Tablet PO TID ROMMEL Magnesium Hydroxide 30 ml 10/09/20 19:37 Milk Of Magnesia 30 Ml Oral.Susp PO DAILY PRN Constipation Olanzapine 15 mg 10/11/20 21:00 10/14/20 20:52 Olanzapine 10 Mg Tablet PO 15 mg BEDTIME ROMMEL Administration Polyethylene Glycol 17 gm 10/10/20 09:00 10/14/20 09:08 Polyethylene Glycol 3350 17 Gm Powd.Pack PO 17 gm DAILY ROMMEL Administration Trazodone HCl 50 mg 10/09/20 21:00 10/14/20 20:52 Trazodone Hcl 50 Mg Tablet PO 50 mg BEDTIME ROMMEL Administration Allergies Allergies Allergy/AdvReac Type Severity Reaction Status Date / Time No Known Allergies Allergy Verified 10/01/20 08:19 [No Known Allergies*] Assessment & Plan Assessment & Plan (1) Major depressive disorder, recurrent, severe with psychotic features: Status: Acute Code(s): F33.3 - Major depressive disorder, recurrent, severe with psychotic symptoms (2) Physical deconditioning: Status: Acute Code(s): R53.81 - Other malaise (3) Anemia: Status: Acute Code(s): D64.9 - Anemia, unspecified Assessment and Plan: patient is on Eliquis for pulmonary embolism aspirin had been added because of question of TIA after consultation with Internal Medicine. Aspirin monitor for bleeding check stool for blood continue ECT if continues medically stable encourage food and fluids monitor for orthostatic blood pressure changes case reviewed with Dr. Zurita and Dr. Briscoe Greater than 50% of the session was spent on counseling and/or coordination of care
--- NOTE | 2020-10-15 08:59 | HO.POSTANES ---
Post Anesthesia Evaluation Post Anesthesia Evaluation Vital Signs: Vital Signs Temp Pulse Resp BP Pulse Ox 10/15/20 08:55 98.5 F 111 H 17 105/54 L 92 10/15/20 08:40 98.5 F 107 H 17 131/79 92 10/15/20 08:30 113 H 17 131/79 92 10/15/20 08:25 116 H 17 131/82 92 10/15/20 08:20 114 H 17 134/77 92 10/15/20 08:15 98.5 F 98 18 160/80 H 98 10/15/20 07:43 89 16 119/67 94 10/15/20 06:18 98.0 F 81 17 106/72 92 10/15/20 06:12 98.7 F 77 16 104/58 L 95 10/15/20 06:05 98.7 F 77 16 104/58 L 95 Anesthesia: General Mental Status: Awake Pain Control: Satisfactory Hydration: Adequate Anesthesia-Related Issues: No Anes. Related Issues
[2020-10-15] MEDS: Finasteride 5 MG TABLET PO (09:40)
[2020-10-15] MEDS: polyethylene glycoL 3350 17 GM POWD.PACK PO (09:40)
[2020-10-15] MEDS: DULoxetine HCl 20 MG CAPSULE.DR 40 MG PO (09:40)
[2020-10-15] MEDS: Docusate Sodium 100 MG CAPSULE PO ×2 (09:40→20:34)
[2020-10-15] MEDS: LORazepam 0.5 MG TABLET PO ×3 (09:40→20:35)
[2020-10-15] MEDS: Apixaban 5 MG TABLET PO ×2 (09:40→20:34)
[2020-10-15] MEDS: Aspirin 81 MG TAB.CHEW PO (09:40)
[2020-10-15] MEDS: Ferrous Sulfate 324 MG TABLET.DR PO (09:40)
[2020-10-15] MEDS: Omeprazole 20 MG CAPSULE.DR PO (16:30)
--- NOTE | 2020-10-15 19:07 | PM.EVENT ---
Event Note Date of Service: 10/15/20 Event Note: Follow up. More talkative today. Denies dizziness, abdominal pain. No black or bloody stools. BP has improved somewhat. psychiatric meds including zyprexa can be contributing to low BP H/H stable. No overt bleeding noted. Iron studies c/w iron deficiency. Continue Eliquis due to h/o PE Hold ASA, continue iron supplementation GI evaluation unsteady gait rec PT evaluation Seen, examined and case discussed with Dr. Cary
[2020-10-15] MEDS: OLANZapine 10 MG TABLET 15 MG PO (20:32)
[2020-10-15] MEDS: Atorvastatin Calcium 80 MG TABLET PO (20:34)
[2020-10-15] MEDS: traZODone HCL 50 MG TABLET PO (20:34)
[2020-10-16 06:00] VITALS: BP 99/57; PULSE 67; RESP 16; TEMP 36.4; O2SAT 95
[2020-10-16] MEDS: Omeprazole 20 MG CAPSULE.DR PO ×2 (08:45→17:38)
[2020-10-16] MEDS: LORazepam 0.5 MG TABLET PO ×3 (08:45→21:33)
[2020-10-16] MEDS: Finasteride 5 MG TABLET PO (08:45)
[2020-10-16] MEDS: Docusate Sodium 100 MG CAPSULE PO ×2 (08:45→21:32)
[2020-10-16] MEDS: Apixaban 5 MG TABLET PO ×2 (08:45→21:32)
[2020-10-16] MEDS: DULoxetine HCl 20 MG CAPSULE.DR 40 MG PO (08:45)
[2020-10-16] MEDS: Ferrous Sulfate 324 MG TABLET.DR PO (08:45)
[2020-10-16] MEDS: polyethylene glycoL 3350 17 GM POWD.PACK PO (08:45)
[2020-10-16 10:09] LABS: Basophils Percent Auto 0.3 % (0-2); Eosinophils Absolute Auto 0.1 X10*3/uL (0.0-0.4); Eosinophils Percent Auto 1.9 % (0-4); Hematocrit 29.5 % (42-52); Hemoglobin 9.8 g/dl (14.0-18.0); Imm Gran Abs Auto 0.02 X10*3/uL (0.00-0.03); Imm Gran Pct Auto 0.6 % (0.0-0.4); Lymphocytes Absolute Auto 0.5 X10*3/uL (1.2-4.9); MANUAL DIFF FLAG SCAN; Mean Corpuscular HGB Conc 33.2 g/dl (31.0-36.0); Mean Corpuscular Hemoglobin 31.2 pg (27.0-33.0); Mean Corpuscular Volume 93.9 fL (80-98); Mean Platelet Volume 8.7 fL (9.4-12.4); Monocytes Absolute Auto 0.3 X10*3/uL (0.1-1.2); Monocytes Percent Auto 8.1 % (2-11); Neutrophils Absolute Auto 2.7 X10*3/uL (2.0-8.3); Neutrophils Percent Auto 74.1 % (45-73); Platelet Count 198 X10*3/uL (160-400); Red Blood Count 3.14 X10*6/uL (4.60-5.80); Red Cell Distribution Width 13.3 % (11.0-16.0); SCAN SMEAR FLAG 1; White Blood Count 3.6 X10*3/uL (4.8-10.8)
[2020-10-16 10:39] LABS: Anion Gap 10 (12-20); Blood Urea Nitrogen 14 mg/dL (9-16); Calcium 7.7 mg/dL (8.4-10.2); Carbon Dioxide 27 mmol/L (22-29); Chloride 108 mmol/L (96-108); Creatinine Clr Calc Pharmacy 81.8; Estimated Glomerular Filt Rate > 60; Glucose Random 132 mg/dL (60-115); Potassium 3.5 mmol/l (3.3-5.1); Sodium 141 mmol/L (135-145)
[2020-10-16 10:59] LABS: SLIDE REVIEW VERIFIED
[2020-10-16 15:22] LABS: OBS Int Ctl Valid YES; OBS1 POS (NEG)
[2020-10-16 20:31] VITALS: BP 100/59; PULSE 82
[2020-10-16 20:33] VITALS: BP 93/54; PULSE 87
[2020-10-16 20:34] VITALS: BP 91/53; PULSE 97
--- NOTE | 2020-10-16 21:17 | HO.PSYCHPN ---
Subjective Subjective Date of Service: 10/16/20 Reason For Visit: Major Depressive disorder Subjective Notes: Conditional Voluntary Interim History: patient depressed withdrawn hopeless helpless despondent remains on one-to-one noted to be guaiac-positive stool hematocrit appears stable Medication Compliance: Yes Mental Status Exam Mental Status Exam Patient Appearance: Disheveled Patient Orientation: Person, Place and Situation Level of Consciousness: Awake and Lethargic Patient Behavior: Passive Mood Description: Depressed Affect Description: Blunted Speech Pattern: Impoverished and Delayed Hallucinations: None Thought Process: Slowed Thinking Thought Content: positive for Linear, positive for Poverty of Content, positive for Slowed Thinking and positive for Suicidal Ideation Depressive Symptoms: Thoughts of /Suicide and Difficulty Concentrating Abnormal Motor Activity Signs and Symptoms: Psychomotor Retardation Judgement: Poor Judgement and Insight: impaired Diagnostics Vital Signs (24Hr): Vital Signs - 24 hr 10/16/20 06:00 10/16/20 20:31 10/16/20 20:33 Temperature 97.5 F Pulse Rate 67 82 87 Respiratory Rate 16 Blood Pressure 99/57 L 100/59 L 93/54 L Pulse Oximetry 95 10/16/20 20:34 Temperature Pulse Rate 97 Respiratory Rate Blood Pressure 91/53 L Pulse Oximetry Body Mass Index 24.5 Labs Results: 10/16/20 09:56 10/16/20 09:56 Labs: Laboratory Results - last 48 hr 10/15/20 10/16/20 10/16/20 07:28 09:56 09:56 WBC 4.8 3.6 L RBC 3.07 L 3.14 L Hgb 9.7 L 9.8 L Hct 28.8 L 29.5 L MCV 93.8 93.9 MCH 31.6 31.2 MCHC 33.7 33.2 RDW 13.2 13.3 Plt Count 192 198 MPV 8.9 L 8.7 L Immature Gran % (Auto) 0.4 0.6 H Neut % (Auto) 72.6 74.1 H Lymph % (Auto) 15.6 L 15.0 L [place] % (Auto) 10.2 8.1 Eos % (Auto) 1.0 1.9 Baso % (Auto) 0.2 0.3 Lymph # (Auto) 0.8 L 0.5 L [place] # (Auto) 0.5 0.3 Eos # (Auto) 0.1 0.1 Baso # (Auto) 0.0 0.0 Abs Immat Gran (auto) 0.02 0.02 Absolute Neuts (auto) 3.5 2.7 Absolute Nucleated RBC 0.000 0.000 Nucleated RBC % (auto) 0.0 0.0 Smear Tech's Comments VERIFIED Sodium 141 Potassium 3.5 Chloride 108 Carbon Dioxide 27 Anion Gap 10 L BUN 14 Creatinine 0.78 Estim Creat Clear Calc 81.8 Estimated GFR > 60 Random Glucose 132 H Calcium 7.7 L Stool Occult Blood 10/16/20 Unknown WBC RBC Hgb Hct MCV MCH MCHC RDW Plt Count MPV Immature Gran % (Auto) Neut % (Auto) Lymph % (Auto) [place] % (Auto) Eos % (Auto) Baso % (Auto) Lymph # (Auto) [place] # (Auto) Eos # (Auto) Baso # (Auto) Abs Immat Gran (auto) Absolute Neuts (auto) Absolute Nucleated RBC Nucleated RBC % (auto) Smear Tech's Comments Sodium Potassium Chloride Carbon Dioxide Anion Gap BUN Creatinine Estim Creat Clear Calc Estimated GFR Random Glucose Calcium Stool Occult Blood POS Imaging Radiology Impressions: ITS Impressions Chest X-Ray 10/10/20 00:00 IMPRESSION: Low lung volume. Faint linear opacity in the left midlung may be atelectasis. Medications Medications Current Medications Generic Name Dose Route Start Last Admin Trade Name Freq PRN Reason Stop Dose Admin Acetaminophen 650 mg 10/09/20 19:36 Acetaminophen Supp 650 Mg Supp.Rect MA Q6H PRN Pain, Mild (Pain Scale 1-3) Acetaminophen 650 mg 10/09/20 19:37 Acetaminophen 325 Mg Tablet PO Q6H PRN Headache/Pain Mild Scale (1-3) Al Hydroxide/Mg Hydroxide 30 ml 10/09/20 19:37 Magnesium Hydrox/Alum Hydrox 30 Ml Oral.Susp PO Q6H PRN Heartburn/Nausea Apixaban 5 mg 10/09/20 21:00 10/16/20 08:45 Apixaban 5 Mg Tablet PO 5 mg BID ROMMEL Administration Atorvastatin Calcium 80 mg 10/09/20 21:00 10/15/20 20:34 Atorvastatin Calcium 80 Mg Tablet PO 80 mg BEDTIME ROMMEL Administration Docusate Sodium 100 mg 10/09/20 21:00 10/16/20 08:45 Docusate Sodium 100 Mg Capsule PO 100 mg BID ROMMEL Administration Duloxetine HCl 40 mg 10/10/20 09:00 10/16/20 08:45 Duloxetine Hcl 20 Mg Capsule. PO 40 mg DAILY ROMMEL Administration Ferrous Sulfate 324 mg 10/10/20 09:00 10/16/20 08:45 Ferrous Sulfate 324 Mg Tablet. PO 324 mg DAILY ROMMEL Administration Finasteride 5 mg 10/10/20 09:00 10/16/20 08:45 Finasteride 5 Mg Tablet PO 5 mg DAILY ROMMEL Administration Lorazepam 0.5 mg 10/12/20 20:52 Lorazepam 0.5 Mg Tablet PO Q6H PRN anxiety/restlessness Lorazepam 0.5 mg 10/15/20 09:00 10/16/20 14:40 Lorazepam 0.5 Mg Tablet PO 0.5 mg TID ROMMEL Administration Magnesium Hydroxide 30 ml 10/09/20 19:37 Milk Of Magnesia 30 Ml Oral.Susp PO DAILY PRN Constipation Olanzapine 15 mg 10/11/20 21:00 10/15/20 20:32 Olanzapine 10 Mg Tablet PO 15 mg BEDTIME ROMMEL Administration Omeprazole 20 mg 10/15/20 09:35 10/16/20 17:38 Omeprazole 20 Mg Capsule. PO 20 mg BID@0611,1790 ROMMEL Administration Polyethylene Glycol 17 gm 10/10/20 09:00 10/16/20 08:45 Polyethylene Glycol 3350 17 Gm Powd.Pack PO 17 gm DAILY ROMMEL Administration Allergies Allergies Allergy/AdvReac Type Severity Reaction Status Date / Time No Known Allergies Allergy Verified 10/01/20 08:19 [No Known Allergies*] Assessment & Plan Assessment & Plan (1) Major depressive disorder, recurrent, severe with psychotic features: Status: Acute Code(s): F33.3 - Major depressive disorder, recurrent, severe with psychotic symptoms (2) Anemia: Status: Acute Code(s): D64.9 - Anemia, unspecified (3) Physical deconditioning: Status: Acute Code(s): R53.81 - Other malaise Assessment and Plan: continue ECT GI consult for questionable GI bleed possibly secondary to aspirin which had been started secondary to question of TIA Greater than 50% of the session was spent on counseling and/or coordination of care
[2020-10-16] MEDS: OLANZapine 10 MG TABLET 15 MG PO (21:30)
[2020-10-16] MEDS: Atorvastatin Calcium 80 MG TABLET PO (21:33)
[2020-10-17] VITALS (13 sets, daily range): BP systolic 80–142; BP diastolic 50–98; PULSE 69–98; RESP 16–18; TEMP -12.9–37.1; O2SAT 93–99; BMI 57.6; BMI 26.2
--- NOTE | 2020-10-17 07:07 | HO.ECTPROC ---
ECT Procedure Note Diagnosis/Treatment Diagnosis: Major Depressive Disorder and Catatonia Current Treatment Number: 4 Treatment: Series Interval Clinical Notes: pt with some response inc affect ECT Settings Device: THYMATRON DGx Electrode Placement: Right Unilateral Program/Pulse Width: 0.50 Energy Percent: 100 Seizure Duration By EEG (in seconds): 33 Medications Administration General Anesthetic: Etomidate (12) Muscle Relaxant: Succinylcholine (100) Ancillary Medications Anti-emetics: Zofran - Pre ECT Cardiovascular Medications: Labetolol (10 mg post for htn ) Miscillaneous Medications: Propofol (20 mg post ) and Flumazenil Airway Management Airway Management: Bag Mask Ventilation Treatment Recommendations Notes: consider pretx with labetolol had htn post tx given 10 mg labetolol
--- NOTE | 2020-10-17 07:42 | HO.ANESPROP2 ---
[facility] Past Medical History Medical History Dementia Depression Diverticulitis of colon with perforation GERD (gastroesophageal reflux disease) HTN (hypertension) Hyperlipidemia Major depressive disorder, recurrent, severe with psychotic features Pulmonary embolism SVT (supraventricular tachycardia) Family History Family History Brother Blood clot in vein Other No history of cardiac disorder Surgical History Surgical History H/O hernia repair History of colostomy reversal Status post Paula's procedure Social History Social History Household Members: Other Housing: Assisted Living Facility Alcohol intake: former Smoking Status: Never smoker Second Hand Smoke Exposure: No Advance Directives Date on File: 07/27/20 service: Yes ([employer]) Current occupational status: retired Sexual orientation: Straight/Heterosexual Meds Allergies Allergy/AdvReac Type Severity Reaction Status Date / Time No Known Allergies Allergy Verified 10/01/20 08:19 [No Known Allergies*] Home Medications Medication Instructions Recorded Confirmed Type doxazosin 2 mg PO DAILY 07/26/20 10/07/20 History olanzapine 20 mg PO BEDTIME 07/26/20 10/07/20 History oxybutynin chloride 5 mg PO DAILY 07/26/20 10/07/20 History docusate sodium [Colace] 100 mg PO BID 09/13/20 10/07/20 History polyethylene glycol 3350 [Miralax] 17 g PO DAILY 09/13/20 10/07/20 History duloxetine [Cymbalta] 40 mg PO DAILY 10/07/20 10/07/20 History ferrous sulfate 325 mg PO DAILY 10/07/20 10/07/20 History finasteride 5 mg PO DAILY 10/07/20 10/07/20 History lorazepam 0.5 mg PO TID 10/07/20 10/07/20 History trazodone 50 mg PO BEDTIME 10/07/20 10/07/20 History Exam Exam Date and Time: October 17, 2020 0742 Height,Weight and Vital Signs: Height 5 ft 10.87 in Weight 84.822 kg Last Vital Signs Temp 98.4 F 10/17/20 06:34 Pulse 69 10/17/20 06:34 Resp 16 10/17/20 06:34 BP 134/77 10/17/20 06:34 Pulse Ox 93 10/17/20 06:34 Pertinent Lab Results Pertinent Lab Results: Laboratory Tests 10/11/20 10/14/20 10/14/20 08:25 15:58 15:58 WBC 4.4 L 4.0 L RBC 3.43 L 3.10 L Hgb 10.9 L 9.7 L Hct 32.4 L 28.9 L MCV 94.5 93.2 MCH 31.8 31.3 MCHC 33.6 33.6 RDW 13.2 13.3 Plt Count 147 L 169 MPV 8.7 L 8.8 L Immature Gran % (Auto) 0.5 H 0.2 Neut % (Auto) 69.5 71.1 Lymph % (Auto) 15.6 L 17.1 L [place] % (Auto) 14.2 H 10.4 Eos % (Auto) 0.2 1.0 Baso % (Auto) 0.0 0.2 Lymph # (Auto) 0.7 L 0.7 L [place] # (Auto) 0.6 0.4 Eos # (Auto) 0.0 0.0 Baso # (Auto) 0.0 0.0 Abs Immat Gran (auto) 0.02 0.01 Absolute Neuts (auto) 3.0 2.9 Absolute Nucleated RBC 0.000 0.000 Nucleated RBC % (auto) 0.0 0.0 Smear Tech's Comments VERIFIED VERIFIED Sodium 139 Potassium 3.4 Chloride 106 Carbon Dioxide 25 Anion Gap 11 L BUN 26 H Creatinine 0.73 Estim Creat Clear Calc 87.5 Estimated GFR > 60 Random Glucose 139 H Calcium 7.4 L D Stool Occult Blood 10/15/20 10/16/20 10/16/20 07:28 09:56 09:56 WBC 4.8 3.6 L RBC 3.07 L 3.14 L Hgb 9.7 L 9.8 L Hct 28.8 L 29.5 L MCV 93.8 93.9 MCH 31.6 31.2 MCHC 33.7 33.2 RDW 13.2 13.3 Plt Count 192 198 MPV 8.9 L 8.7 L Immature Gran % (Auto) 0.4 0.6 H Neut % (Auto) 72.6 74.1 H Lymph % (Auto) 15.6 L 15.0 L [place] % (Auto) 10.2 8.1 Eos % (Auto) 1.0 1.9 Baso % (Auto) 0.2 0.3 Lymph # (Auto) 0.8 L 0.5 L [place] # (Auto) 0.5 0.3 Eos # (Auto) 0.1 0.1 Baso # (Auto) 0.0 0.0 Abs Immat Gran (auto) 0.02 0.02 Absolute Neuts (auto) 3.5 2.7 Absolute Nucleated RBC 0.000 0.000 Nucleated RBC % (auto) 0.0 0.0 Smear Tech's Comments VERIFIED Sodium 141 Potassium 3.5 Chloride 108 Carbon Dioxide 27 Anion Gap 10 L BUN 14 Creatinine 0.78 Estim Creat Clear Calc 81.8 Estimated GFR > 60 Random Glucose 132 H Calcium 7.7 L Stool Occult Blood 10/16/20 Unknown WBC RBC Hgb Hct MCV MCH MCHC RDW Plt Count MPV Immature Gran % (Auto) Neut % (Auto) Lymph % (Auto) [place] % (Auto) Eos % (Auto) Baso % (Auto) Lymph # (Auto) [place] # (Auto) Eos # (Auto) Baso # (Auto) Abs Immat Gran (auto) Absolute Neuts (auto) Absolute Nucleated RBC Nucleated RBC % (auto) Smear Tech's Comments Sodium Potassium Chloride Carbon Dioxide Anion Gap BUN Creatinine Estim Creat Clear Calc Estimated GFR Random Glucose Calcium Stool Occult Blood POS Airway Mallampati Class: II Heart: RRR Lungs: CTA Assessment and Plan Assessment Anesthesia Assessment: Anesthesia Plan Discussed and Chart Reviewed Final Anesthetic Review NPO: Yes ASA Class: III Final Preanesthetic Review: Meds/Allgs Chart Reviewed, Consent Obtained/Reviewed and Anes Risks/Benef Reviewed Patient Risk: Intermediate Procedure Risk: Intermediate Anesthetic Plan Anesthetic Plan: GA Disposition: Standard PACU
[2020-10-17] MEDS: DULoxetine HCl 20 MG CAPSULE.DR 40 MG PO (09:00)
[2020-10-17] MEDS: polyethylene glycoL 3350 17 GM POWD.PACK PO (09:00)
[2020-10-17] MEDS: Ferrous Sulfate 324 MG TABLET.DR PO (09:00)
[2020-10-17] MEDS: Finasteride 5 MG TABLET PO (09:00)
[2020-10-17] MEDS: Docusate Sodium 100 MG CAPSULE PO ×2 (09:00→20:38)
[2020-10-17] MEDS: Omeprazole 20 MG CAPSULE.DR PO ×2 (09:00→17:29)
[2020-10-17] MEDS: LORazepam 0.5 MG TABLET PO ×3 (09:00→20:41)
[2020-10-17] MEDS: Apixaban 5 MG TABLET PO ×2 (09:00→20:38)
[2020-10-17 17:00] LABS: MANUAL DIFF FLAG NO
[2020-10-17 17:43] LABS: Anion Gap 12 (12-20); Blood Urea Nitrogen 18 mg/dL (9-16); Calcium 7.8 mg/dL (8.4-10.2); Carbon Dioxide 28 mmol/L (22-29); Chloride 107 mmol/L (96-108); Creatinine Clr Calc Pharmacy 75.1; Estimated Glomerular Filt Rate > 60; Glucose Random 117 mg/dL (60-115); Potassium 3.7 mmol/l (3.3-5.1); Sodium 143 mmol/L (135-145)
[2020-10-17 20:10] LABS: Basophils Percent Auto 0.2 % (0-2); Eosinophils Absolute Auto 0.1 X10*3/uL (0.0-0.4); Hematocrit 30.9 % (42-52); Hemoglobin 10.2 g/dl (14.0-18.0); Imm Gran Abs Auto 0.02 X10*3/uL (0.00-0.03); Imm Gran Pct Auto 0.4 % (0.0-0.4); Lymphocytes Absolute Auto 0.8 X10*3/uL (1.2-4.9); Lymphocytes Percent Auto 15.5 % (20-40); Mean Corpuscular Hemoglobin 31.3 pg (27.0-33.0); Mean Corpuscular Volume 94.8 fL (80-98); Mean Platelet Volume 9.4 fL (9.4-12.4); Monocytes Absolute Auto 0.7 X10*3/uL (0.1-1.2); Monocytes Percent Auto 13.6 % (2-11); Neutrophils Absolute Auto 3.4 X10*3/uL (2.0-8.3); Neutrophils Percent Auto 68.3 % (45-73); Platelet Count 230 X10*3/uL (160-400); Red Blood Count 3.26 X10*6/uL (4.60-5.80); Red Cell Distribution Width 13.2 % (11.0-16.0); White Blood Count 4.9 X10*3/uL (4.8-10.8)
[2020-10-17] MEDS: OLANZapine 10 MG TABLET 15 MG PO (20:37)
[2020-10-17] MEDS: Atorvastatin Calcium 80 MG TABLET PO (20:38)
--- NOTE | 2020-10-17 21:47 | CONS_ITS ---
DATE OF SERVICE: 10/17/2020 REFERRING PHYSICIAN: Cooper Molina MD REASON FOR CONSULTATION: Anemia and Hemoccult-positive stools. HISTORY OF PRESENT ILLNESS: The patient is a pleasant 75-year-old man, who was admitted to the hospital on October 03 because of major depression and has been treated with ECT. During his hospitalization, he was noted to have a facial droop and on October 07 was transferred to the medical service, where he was evaluated from a neurologic standpoint. There was no evidence of acute CVA, and he was put on aspirin a day. He was transferred back to Psychiatry, where he has been treated with medications and ECT therapy. During this hospitalization, he has been noted to be anemic and have Hemoccult-positive stools. Iron studies are showing a saturation consistent with iron deficiency and he has been started on iron. Of note, the patient was started on Eliquis for PE back in late August or early September. He does have a history of colon polyps and last underwent colonoscopy about 10 years ago. He has also had a history of diverticulitis with perforation, requiring a Paula procedure and resection and reanastomosis. PAST MEDICAL HISTORY: 1. Hypertension. 2. Hyperlipidemia. 3. Major depression. 4. Pulmonary embolism. 5. SVT. 6. Gastroesophageal reflux disease. 7. Diverticulitis as above. 8. Depression/dementia. CURRENT MEDICATIONS: His current medication list is reviewed in the chart. ALLERGIES: NONE. FAMILY HISTORY: This is reviewed with the patient and is noncontributory. SOCIAL HISTORY: There is no current tobacco, alcohol, or substance abuse. REVIEW OF SYSTEMS: He denies any chest pain or shortness of breath. He denies any change in his bowel habits. He does have chronic constipation. PHYSICAL EXAMINATION: GENERAL: Shows a pleasant elderly male who is walking with a walker. SKIN: Pale. HEENT: Shows no scleral icterus. NECK: Without lymphadenopathy or thyromegaly. LUNGS: Clear. HEART: Shows a regular rate and rhythm. S1, S2. No murmur. ABDOMEN: Soft without focal masses or tenderness. Bowel sounds are present. No organomegaly is noted. EXTREMITIES: Without edema. LABORATORY DATA: Reviewed. IMPRESSION: 1. Iron deficiency anemia. 2. Hemoccult-positive stools. He does have a history of colon polyps and could have a polyp or tumor based on his prior history. He has also been on aspirin and may have gastritis. Because of his iron deficiency and his need to be on anticoagulation, I recommend he undergo upper endoscopy and colonoscopy for further evaluation. I discussed this with the patient. He stated he would think about it and discuss this with his healthcare proxy, Summer Amato ([phone]), who is his daughter and she understands risks and benefits of the procedure and has given consent to have this procedure arranged. We will coordinate this with Dr. Molina regarding his ECT. Thanks for asking me to see him. I will follow him in the hospital with you. MD NEFTALI Blackburn/REILLY / [id number]
--- NOTE | 2020-10-17 22:21 | P.PNPSI_ITS ---
Subjective Subjective Date of Service: 10/17/20 Reason For Visit: Major Depressive disorder Subjective Notes: Conditional Voluntary Interim History: patient tolerated ECT today see ECT note. Had somewhat low blood pressure later in the day encouraged to drink fluids was seen in consult by Gastroenterology Medication Compliance: Yes Side effects from medications: No Mental Status Exam Mental Status Exam Patient Appearance: Disheveled Patient Orientation: Person, Place and Situation Level of Consciousness: Awake and Lethargic Patient Behavior: Passive Mood Description: Depressed Affect Description: Blunted Speech Pattern: Impoverished and Delayed Hallucinations: None Thought Process: Slowed Thinking Thought Content: positive for Linear, positive for Poverty of Content, positive for Slowed Thinking and positive for Suicidal Ideation Depressive Symptoms: Thoughts of /Suicide and Difficulty Concentrating Abnormal Motor Activity Signs and Symptoms: Psychomotor Retardation Judgement: Poor Judgement and Insight: impaired Diagnostics Vital Signs (24Hr): Vital Signs - 24 hr 10/17/20 05:40 10/17/20 05:47 10/17/20 05:55 Temperature 98.4 F 98.4 F 98.4 F Pulse Rate 85 85 85 Respiratory Rate 16 16 16 Blood Pressure 104/56 L 104/56 L 104/56 L Pulse Oximetry 96 96 99 10/17/20 06:34 10/17/20 07:45 10/17/20 07:50 Temperature 98.4 F 98.8 F 8.8 F L Pulse Rate 69 94 98 Respiratory Rate 16 18 18 Blood Pressure 134/77 140/92 H 142/98 H Pulse Oximetry 93 93 97 10/17/20 07:55 10/17/20 08:00 10/17/20 08:15 Temperature 98.8 F Pulse Rate 96 84 92 Respiratory Rate 17 17 17 Blood Pressure 127/81 86/52 L 130/75 Pulse Oximetry 93 93 93 10/17/20 09:00 10/17/20 16:00 10/17/20 17:43 Temperature Pulse Rate 94 81 83 Respiratory Rate Blood Pressure 80/54 L 114/62 99/51 L Pulse Oximetry 10/17/20 17:44 Temperature Pulse Rate 93 Respiratory Rate Blood Pressure 94/50 L Pulse Oximetry Body Mass Index 26.2 Labs Results: 10/17/20 16:50 10/17/20 16:50 Labs: Laboratory Results - last 48 hr 10/16/20 10/16/20 10/16/20 09:56 09:56 Unknown WBC 3.6 L RBC 3.14 L Hgb 9.8 L Hct 29.5 L MCV 93.9 MCH 31.2 MCHC 33.2 RDW 13.3 Plt Count 198 MPV 8.7 L Immature Gran % (Auto) 0.6 H Neut % (Auto) 74.1 H Lymph % (Auto) 15.0 L [place] % (Auto) 8.1 Eos % (Auto) 1.9 Baso % (Auto) 0.3 Lymph # (Auto) 0.5 L [place] # (Auto) 0.3 Eos # (Auto) 0.1 Baso # (Auto) 0.0 Abs Immat Gran (auto) 0.02 Absolute Neuts (auto) 2.7 Absolute Nucleated RBC 0.000 Nucleated RBC % (auto) 0.0 Smear Tech's Comments VERIFIED Sodium 141 Potassium 3.5 Chloride 108 Carbon Dioxide 27 Anion Gap 10 L BUN 14 Creatinine 0.78 Estim Creat Clear Calc 81.8 Estimated GFR > 60 Random Glucose 132 H Calcium 7.7 L Stool Occult Blood POS 10/17/20 10/17/20 16:50 16:50 WBC 4.9 RBC 3.26 L Hgb 10.2 L Hct 30.9 L MCV 94.8 MCH 31.3 MCHC 33.0 RDW 13.2 Plt Count 230 MPV 9.4 Immature Gran % (Auto) 0.4 Neut % (Auto) 68.3 Lymph % (Auto) 15.5 L [place] % (Auto) 13.6 H Eos % (Auto) 2.0 Baso % (Auto) 0.2 Lymph # (Auto) 0.8 L [place] # (Auto) 0.7 Eos # (Auto) 0.1 Baso # (Auto) 0.0 Abs Immat Gran (auto) 0.02 Absolute Neuts (auto) 3.4 Absolute Nucleated RBC 0.000 Nucleated RBC % (auto) 0.0 Smear Tech's Comments Sodium 143 Potassium 3.7 Chloride 107 Carbon Dioxide 28 Anion Gap 12 BUN 18 H Creatinine 0.85 Estim Creat Clear Calc 75.1 Estimated GFR > 60 Random Glucose 117 H Calcium 7.8 L Stool Occult Blood Imaging Radiology Impressions: ITS Impressions Chest X-Ray 10/10/20 00:00 IMPRESSION: Low lung volume. Faint linear opacity in the left midlung may be atelectasis. Medications Medications Current Medications Generic Name Dose Route Start Last Admin Trade Name Freq PRN Reason Stop Dose Admin Acetaminophen 650 mg 10/09/20 19:36 Acetaminophen Supp 650 Mg Supp.Rect FL Q6H PRN Pain, Mild (Pain Scale 1-3) Acetaminophen 650 mg 10/09/20 19:37 Acetaminophen 325 Mg Tablet PO Q6H PRN Headache/Pain Mild Scale (1-3) Al Hydroxide/Mg Hydroxide 30 ml 10/09/20 19:37 Magnesium Hydrox/Alum Hydrox 30 Ml Oral.Susp PO Q6H PRN Heartburn/Nausea Apixaban 5 mg 10/09/20 21:00 10/17/20 20:38 Apixaban 5 Mg Tablet PO 5 mg BID ROMMEL Administration Atorvastatin Calcium 80 mg 10/09/20 21:00 10/17/20 20:38 Atorvastatin Calcium 80 Mg Tablet PO 80 mg BEDTIME ROMMEL Administration Docusate Sodium 100 mg 10/09/20 21:00 10/17/20 20:38 Docusate Sodium 100 Mg Capsule PO 100 mg BID ROMMEL Administration Duloxetine HCl 40 mg 10/10/20 09:00 10/17/20 09:00 Duloxetine Hcl 20 Mg Capsule. PO 40 mg DAILY ROMMEL Administration Ferrous Sulfate 324 mg 10/10/20 09:00 10/17/20 09:00 Ferrous Sulfate 324 Mg Tablet. PO 324 mg DAILY ROMMEL Administration Finasteride 5 mg 10/10/20 09:00 10/17/20 09:00 Finasteride 5 Mg Tablet PO 5 mg DAILY ROMMEL Administration Lorazepam 0.5 mg 10/15/20 09:00 10/17/20 20:41 Lorazepam 0.5 Mg Tablet PO 0.5 mg TID ROMMEL Administration Magnesium Hydroxide 30 ml 10/09/20 19:37 Milk Of Magnesia 30 Ml Oral.Susp PO DAILY PRN Constipation Olanzapine 15 mg 10/11/20 21:00 10/17/20 20:37 Olanzapine 10 Mg Tablet PO 15 mg BEDTIME ROMMEL Administration Omeprazole 20 mg 10/15/20 09:35 10/17/20 17:29 Omeprazole 20 Mg Capsule. PO 20 mg BID@0630,1630 ROMMEL Administration Polyethylene Glycol 17 gm 10/10/20 09:00 10/17/20 09:00 Polyethylene Glycol 3350 17 Gm Powd.Pack PO 17 gm DAILY ROMMEL Administration Allergies Allergies Allergy/AdvReac Type Severity Reaction Status Date / Time No Known Allergies Allergy Verified 10/01/20 08:19 [No Known Allergies*] Assessment & Plan Assessment & Plan (1) Major depressive disorder, recurrent, severe with psychotic features: Status: Acute Code(s): F33.3 - Major depressive disorder, recurrent, severe with psychotic symptoms (2) Anemia: Status: Acute Code(s): D64.9 - Anemia, unspecified Assessment and Plan: continuing ECT CT some improvement in mood GI consult appreciated hematocrit stable BUN creatinine improved Greater than 50% of the session was spent on counseling and/or coordination of care
[2020-10-18 06:10] VITALS: BP 97/64; PULSE 67; RESP 16; TEMP 36.5; O2SAT 94
[2020-10-18 07:00] VITALS: BMI 24.7
[2020-10-18] MEDS: Finasteride 5 MG TABLET PO (09:22)
[2020-10-18] MEDS: Ferrous Sulfate 324 MG TABLET.DR PO (09:22)
[2020-10-18] MEDS: Omeprazole 20 MG CAPSULE.DR PO ×2 (09:24→17:08)
[2020-10-18] MEDS: DULoxetine HCl 20 MG CAPSULE.DR 40 MG PO (09:24)
[2020-10-18] MEDS: Apixaban 5 MG TABLET PO ×2 (09:24→20:01)
[2020-10-18] MEDS: Docusate Sodium 100 MG CAPSULE PO ×2 (09:24→20:01)
[2020-10-18] MEDS: LORazepam 0.5 MG TABLET PO ×3 (09:25→20:02)
--- NOTE | 2020-10-18 09:29 | HO.PSYCHPN ---
Subjective Subjective Date of Service: 10/18/20 Reason For Visit: Major Depressive disorder Subjective Notes: Conditional Voluntary Interim History: improved range of affect remains orthostatic attimes Medication Compliance: Yes Mental Status Exam Mental Status Exam Patient Appearance: Disheveled Patient Orientation: Person, Place and Situation Level of Consciousness: Awake and Lethargic Patient Behavior: Passive Mood Description: Depressed Affect Description: Blunted Speech Pattern: Impoverished and Delayed Hallucinations: None Thought Content: positive for Linear, positive for Poverty of Content and positive for Slowed Thinking Depressive Symptoms: Diff. Making Decisions, Loss of Int. in Activity and Difficulty Concentrating Abnormal Motor Activity Signs and Symptoms: Psychomotor Retardation Judgement: Poor Judgement and Insight: impaired Diagnostics Vital Signs (24Hr): Vital Signs - 24 hr 10/17/20 16:00 10/17/20 17:43 10/17/20 17:44 Temperature Pulse Rate 81 83 93 Respiratory Rate Blood Pressure 114/62 99/51 L 94/50 L Pulse Oximetry 10/18/20 06:10 Temperature 97.7 F Pulse Rate 67 Respiratory Rate 16 Blood Pressure 97/64 Pulse Oximetry 94 Body Mass Index 26.2 Labs Results: 10/17/20 16:50 10/17/20 16:50 Labs: Laboratory Results - last 48 hr 10/16/20 10/16/20 10/16/20 09:56 09:56 Unknown WBC 3.6 L RBC 3.14 L Hgb 9.8 L Hct 29.5 L MCV 93.9 MCH 31.2 MCHC 33.2 RDW 13.3 Plt Count 198 MPV 8.7 L Immature Gran % (Auto) 0.6 H Neut % (Auto) 74.1 H Lymph % (Auto) 15.0 L [place] % (Auto) 8.1 Eos % (Auto) 1.9 Baso % (Auto) 0.3 Lymph # (Auto) 0.5 L [place] # (Auto) 0.3 Eos # (Auto) 0.1 Baso # (Auto) 0.0 Abs Immat Gran (auto) 0.02 Absolute Neuts (auto) 2.7 Absolute Nucleated RBC 0.000 Nucleated RBC % (auto) 0.0 Smear Tech's Comments VERIFIED Sodium 141 Potassium 3.5 Chloride 108 Carbon Dioxide 27 Anion Gap 10 L BUN 14 Creatinine 0.78 Estim Creat Clear Calc 81.8 Estimated GFR > 60 Random Glucose 132 H Calcium 7.7 L Stool Occult Blood POS 10/17/20 10/17/20 16:50 16:50 WBC 4.9 RBC 3.26 L Hgb 10.2 L Hct 30.9 L MCV 94.8 MCH 31.3 MCHC 33.0 RDW 13.2 Plt Count 230 MPV 9.4 Immature Gran % (Auto) 0.4 Neut % (Auto) 68.3 Lymph % (Auto) 15.5 L [place] % (Auto) 13.6 H Eos % (Auto) 2.0 Baso % (Auto) 0.2 Lymph # (Auto) 0.8 L [place] # (Auto) 0.7 Eos # (Auto) 0.1 Baso # (Auto) 0.0 Abs Immat Gran (auto) 0.02 Absolute Neuts (auto) 3.4 Absolute Nucleated RBC 0.000 Nucleated RBC % (auto) 0.0 Smear Tech's Comments Sodium 143 Potassium 3.7 Chloride 107 Carbon Dioxide 28 Anion Gap 12 BUN 18 H Creatinine 0.85 Estim Creat Clear Calc 75.1 Estimated GFR > 60 Random Glucose 117 H Calcium 7.8 L Stool Occult Blood Imaging Radiology Impressions: ITS Impressions Chest X-Ray 10/10/20 00:00 IMPRESSION: Low lung volume. Faint linear opacity in the left midlung may be atelectasis. Medications Medications Current Medications Generic Name Dose Route Start Last Admin Trade Name Freq PRN Reason Stop Dose Admin Acetaminophen 650 mg 10/09/20 19:36 Acetaminophen Supp 650 Mg Supp.Rect [place] Q6H PRN Pain, Mild (Pain Scale 1-3) Acetaminophen 650 mg 10/09/20 19:37 Acetaminophen 325 Mg Tablet PO Q6H PRN Headache/Pain Mild Scale (1-3) Al Hydroxide/Mg Hydroxide 30 ml 10/09/20 19:37 Magnesium Hydrox/Alum Hydrox 30 Ml Oral.Susp PO Q6H PRN Heartburn/Nausea Apixaban 5 mg 10/09/20 21:00 10/18/20 09:24 Apixaban 5 Mg Tablet PO 5 mg BID ROMMEL Administration Atorvastatin Calcium 80 mg 10/09/20 21:00 10/17/20 20:38 Atorvastatin Calcium 80 Mg Tablet PO 80 mg BEDTIME ROMMEL Administration Docusate Sodium 100 mg 10/09/20 21:00 10/18/20 09:24 Docusate Sodium 100 Mg Capsule PO 100 mg BID ROMMEL Administration Duloxetine HCl 40 mg 10/10/20 09:00 10/18/20 09:24 Duloxetine Hcl 20 Mg Capsule. PO 40 mg DAILY ROMMEL Administration Ferrous Sulfate 324 mg 10/10/20 09:00 10/18/20 09:22 Ferrous Sulfate 324 Mg Tablet. PO 324 mg DAILY ROMMEL Administration Finasteride 5 mg 10/10/20 09:00 10/18/20 09:22 Finasteride 5 Mg Tablet PO 5 mg DAILY ROMMEL Administration Lorazepam 0.5 mg 10/15/20 09:00 10/18/20 09:25 Lorazepam 0.5 Mg Tablet PO 0.5 mg TID ROMMEL Administration Magnesium Hydroxide 30 ml 10/09/20 19:37 Milk Of Magnesia 30 Ml Oral.Susp PO DAILY PRN Constipation Olanzapine 15 mg 10/11/20 21:00 10/17/20 20:37 Olanzapine 10 Mg Tablet PO 15 mg BEDTIME ROMMEL Administration Omeprazole 20 mg 10/15/20 09:35 10/18/20 09:24 Omeprazole 20 Mg Capsule. PO 20 mg BID@0630,1630 ROMMEL Administration Polyethylene Glycol 17 gm 10/10/20 09:00 10/17/20 09:00 Polyethylene Glycol 3350 17 Gm Powd.Pack PO 17 gm DAILY ROMMEL Administration Allergies Allergies Allergy/AdvReac Type Severity Reaction Status Date / Time No Known Allergies Allergy Verified 10/01/20 08:19 [No Known Allergies*] Assessment & Plan Assessment & Plan (1) Major depressive disorder, recurrent, severe with psychotic features: Status: Acute Code(s): F33.3 - Major depressive disorder, recurrent, severe with psychotic symptoms Assessment and Plan: cont ect encourage fluids improvement noted Greater than 50% of the session was spent on counseling and/or coordination of care
[2020-10-18] MEDS: polyethylene glycoL 3350 17 GM POWD.PACK PO (09:53)
[2020-10-18 14:05] VITALS: BP 117/80; PULSE 80
[2020-10-18] MEDS: OLANZapine 10 MG TABLET PO (20:01)
[2020-10-18] MEDS: Atorvastatin Calcium 80 MG TABLET PO (20:02)
--- NOTE | 2020-10-18 21:49 | PC.NURSE ---
Pt vs, were Laying 115/71, p85, Sitting 90/65 P96, standing 93/[address] Molina
[2020-10-19] VITALS (14 sets, daily range): BP systolic 90–182; BP diastolic 51–105; PULSE 70–92; RESP 16–24; TEMP 36.5–37.2; O2SAT 94–100
--- NOTE | 2020-10-19 08:42 | P.CONAN_ITS ---
FORMERLY [facility], [facility] Past Medical History Medical History Dementia Depression Diverticulitis of colon with perforation GERD (gastroesophageal reflux disease) HTN (hypertension) Hyperlipidemia Major depressive disorder, recurrent, severe with psychotic features Pulmonary embolism SVT (supraventricular tachycardia) Family History Family History Brother Blood clot in vein Other No history of cardiac disorder Surgical History Surgical History H/O hernia repair History of colostomy reversal Status post Paula's procedure Social History Social History Household Members: Other Housing: Assisted Living Facility Alcohol intake: former Smoking Status: Never smoker Second Hand Smoke Exposure: No Advance Directives Date on File: 07/27/20 service: Yes ([employer]) Current occupational status: retired Sexual orientation: Straight/Heterosexual Meds Allergies Allergy/AdvReac Type Severity Reaction Status Date / Time No Known Allergies Allergy Verified 10/01/20 08:19 [No Known Allergies*] Home Medications Medication Instructions Recorded Confirmed Type doxazosin 2 mg PO DAILY 07/26/20 10/07/20 History olanzapine 20 mg PO BEDTIME 07/26/20 10/07/20 History oxybutynin chloride 5 mg PO DAILY 07/26/20 10/07/20 History docusate sodium [Colace] 100 mg PO BID 09/13/20 10/07/20 History polyethylene glycol 3350 [Miralax] 17 g PO DAILY 09/13/20 10/07/20 History duloxetine [Cymbalta] 40 mg PO DAILY 10/07/20 10/07/20 History ferrous sulfate 325 mg PO DAILY 10/07/20 10/07/20 History finasteride 5 mg PO DAILY 10/07/20 10/07/20 History lorazepam 0.5 mg PO TID 10/07/20 10/07/20 History trazodone 50 mg PO BEDTIME 10/07/20 10/07/20 History Exam Exam Date and Time: October 19, 2020 0842 Height,Weight and Vital Signs: Height 5 ft 10.87 in Weight 80.2 kg Last Vital Signs Temp 98.5 F 10/19/20 06:05 Pulse 76 10/19/20 06:05 Resp 18 10/19/20 06:05 BP 129/78 10/19/20 06:05 Pulse Ox 96 10/19/20 06:05 Pertinent Lab Results Pertinent Lab Results: Laboratory Tests 10/11/20 10/14/20 10/14/20 08:25 15:58 15:58 WBC 4.4 L 4.0 L RBC 3.43 L 3.10 L Hgb 10.9 L 9.7 L Hct 32.4 L 28.9 L MCV 94.5 93.2 MCH 31.8 31.3 MCHC 33.6 33.6 RDW 13.2 13.3 Plt Count 147 L 169 MPV 8.7 L 8.8 L Immature Gran % (Auto) 0.5 H 0.2 Neut % (Auto) 69.5 71.1 Lymph % (Auto) 15.6 L 17.1 L [place] % (Auto) 14.2 H 10.4 Eos % (Auto) 0.2 1.0 Baso % (Auto) 0.0 0.2 Lymph # (Auto) 0.7 L 0.7 L [place] # (Auto) 0.6 0.4 Eos # (Auto) 0.0 0.0 Baso # (Auto) 0.0 0.0 Abs Immat Gran (auto) 0.02 0.01 Absolute Neuts (auto) 3.0 2.9 Absolute Nucleated RBC 0.000 0.000 Nucleated RBC % (auto) 0.0 0.0 Smear Tech's Comments VERIFIED VERIFIED Sodium 139 Potassium 3.4 Chloride 106 Carbon Dioxide 25 Anion Gap 11 L BUN 26 H Creatinine 0.73 Estim Creat Clear Calc 87.5 Estimated GFR > 60 Random Glucose 139 H Calcium 7.4 L D Stool Occult Blood 10/15/20 10/16/20 10/16/20 07:28 09:56 09:56 WBC 4.8 3.6 L RBC 3.07 L 3.14 L Hgb 9.7 L 9.8 L Hct 28.8 L 29.5 L MCV 93.8 93.9 MCH 31.6 31.2 MCHC 33.7 33.2 RDW 13.2 13.3 Plt Count 192 198 MPV 8.9 L 8.7 L Immature Gran % (Auto) 0.4 0.6 H Neut % (Auto) 72.6 74.1 H Lymph % (Auto) 15.6 L 15.0 L [place] % (Auto) 10.2 8.1 Eos % (Auto) 1.0 1.9 Baso % (Auto) 0.2 0.3 Lymph # (Auto) 0.8 L 0.5 L [place] # (Auto) 0.5 0.3 Eos # (Auto) 0.1 0.1 Baso # (Auto) 0.0 0.0 Abs Immat Gran (auto) 0.02 0.02 Absolute Neuts (auto) 3.5 2.7 Absolute Nucleated RBC 0.000 0.000 Nucleated RBC % (auto) 0.0 0.0 Smear Tech's Comments VERIFIED Sodium 141 Potassium 3.5 Chloride 108 Carbon Dioxide 27 Anion Gap 10 L BUN 14 Creatinine 0.78 Estim Creat Clear Calc 81.8 Estimated GFR > 60 Random Glucose 132 H Calcium 7.7 L Stool Occult Blood 10/16/20 10/17/20 10/17/20 Unknown 16:50 16:50 WBC 4.9 RBC 3.26 L Hgb 10.2 L Hct 30.9 L MCV 94.8 MCH 31.3 MCHC 33.0 RDW 13.2 Plt Count 230 MPV 9.4 Immature Gran % (Auto) 0.4 Neut % (Auto) 68.3 Lymph % (Auto) 15.5 L [place] % (Auto) 13.6 H Eos % (Auto) 2.0 Baso % (Auto) 0.2 Lymph # (Auto) 0.8 L [place] # (Auto) 0.7 Eos # (Auto) 0.1 Baso # (Auto) 0.0 Abs Immat Gran (auto) 0.02 Absolute Neuts (auto) 3.4 Absolute Nucleated RBC 0.000 Nucleated RBC % (auto) 0.0 Smear Tech's Comments Sodium 143 Potassium 3.7 Chloride 107 Carbon Dioxide 28 Anion Gap 12 BUN 18 H Creatinine 0.85 Estim Creat Clear Calc 75.1 Estimated GFR > 60 Random Glucose 117 H Calcium 7.8 L Stool Occult Blood POS Airway Mallampati Class: II TM Dist: >3cm Neck ROM: Full Assessment and Plan Assessment Anesthesia Assessment: Anesthesia Plan Discussed and Chart Reviewed Final Anesthetic Review NPO: Yes ASA Class: II Final Preanesthetic Review: No Changes in Pt Med Stat, Meds/Allgs Chart Reviewed, Consent Obtained/Reviewed and Anes Risks/Benef Reviewed Patient Risk: Low Procedure Risk: Low Assessment/Block/Sedation in SS: Assess/Block/Sedation-SS Anesthetic Plan Anesthetic Plan: GA Disposition: Standard PACU
--- NOTE | 2020-10-19 08:47 | MHC.SHP ---
Pre-Procedural Eval Section A The patient is an INPATIENT: Yes Changes since office visit: Yes New Medical Problems, Yes Changes in Medication and Yes Patient answered all questions; No Cold of Flu in the past 2 weeks The History & Physical has been completed within 30 days and I have reviewed it.: Yes Section B Chief Complaint: Major Depressive disorder Allergies: Allergies Allergy/AdvReac Type Severity Reaction Status Date / Time No Known Allergies Allergy Verified 10/01/20 08:19 [No Known Allergies*] Plan I have reviewed the history and physical and performed a pertinent physical examination on my patient. No changes have occurred unless specified.
--- NOTE | 2020-10-19 09:03 | HO.ECTPROC ---
ECT Procedure Note Diagnosis/Treatment Diagnosis: Major Depressive Disorder and Catatonia Previous ECT Date: 10/17/20 Current Treatment Number: 5 Treatment: Series Interval Clinical Notes: improvement noted ECT Settings Device: THYMATRON DGx Program/Pulse Width: 0.50 Energy Percent: 100 Seizure Duration By EEG (in seconds): 29 Medications Administration General Anesthetic: Etomidate (12) Muscle Relaxant: Succinylcholine (100) Ancillary Medications Anti-emetics: Zofran - Pre ECT Cardiovascular Medications: Labetolol (20 mg) Miscillaneous Medications: Flumazenil Airway Management Airway Management: Bag Mask Ventilation Treatment Recommendations No Changes Recommended: No change
--- NOTE | 2020-10-19 09:37 | HO.PSYCHPN ---
Subjective Subjective Date of Service: 10/19/20 Reason For Visit: Major Depressive disorder Subjective Notes: Conditional Voluntary Interim History: Patient was seen by Gastroenterology recommend endoscopy and colonoscopy. Hematocrit and electrolytes ordered encourage fluids patient has periods of orthostasis but does not seem to be secondary to a GI bleed. Medication Compliance: Yes Mental Status Exam Mental Status Exam Patient Appearance: Appropriate Patient Orientation: Person, Place and Situation Level of Consciousness: Alert Patient Behavior: Cooperative and Fatigued Mood Description: Depressed ( Improving) and Blunted Affect Description: Flat Patient Cognition Impaired: Yes Ability to Follow Directions: Good Speech Pattern: Spontaneous Speech Hallucinations: None Delusions: Not Present Thought Process: Slowed Thinking Thought Content: positive for [place] and positive for Circumstantial Judgement: Fair Diagnostics Vital Signs (24Hr): Vital Signs - 24 hr 10/18/20 14:05 10/19/20 06:05 10/19/20 08:35 Temperature 98.5 F 97.9 F Pulse Rate 80 76 92 Respiratory Rate 18 18 Blood Pressure 117/80 129/78 148/81 H Pulse Oximetry 96 95 10/19/20 09:10 10/19/20 09:15 Temperature 99 F Pulse Rate 87 88 Respiratory Rate 24 H 16 Blood Pressure 153/88 H 182/105 H Pulse Oximetry 99 100 Body Mass Index 24.7 Labs Results: 10/19/20 15:49 10/19/20 15:49 Labs: Laboratory Results - last 48 hr 10/17/20 10/17/20 16:50 16:50 WBC 4.9 RBC 3.26 L Hgb 10.2 L Hct 30.9 L MCV 94.8 MCH 31.3 MCHC 33.0 RDW 13.2 Plt Count 230 MPV 9.4 Immature Gran % (Auto) 0.4 Neut % (Auto) 68.3 Lymph % (Auto) 15.5 L [place] % (Auto) 13.6 H Eos % (Auto) 2.0 Baso % (Auto) 0.2 Lymph # (Auto) 0.8 L [place] # (Auto) 0.7 Eos # (Auto) 0.1 Baso # (Auto) 0.0 Abs Immat Gran (auto) 0.02 Absolute Neuts (auto) 3.4 Absolute Nucleated RBC 0.000 Nucleated RBC % (auto) 0.0 Sodium 143 Potassium 3.7 Chloride 107 Carbon Dioxide 28 Anion Gap 12 BUN 18 H Creatinine 0.85 Estim Creat Clear Calc 75.1 Estimated GFR > 60 Random Glucose 117 H Calcium 7.8 L Imaging Radiology Impressions: ITS Impressions Chest X-Ray 10/10/20 00:00 IMPRESSION: Low lung volume. Faint linear opacity in the left midlung may be atelectasis. Medications Medications Current Medications Generic Name Dose Route Start Last Admin Trade Name Freq PRN Reason Stop Dose Admin Acetaminophen 650 mg 10/09/20 19:36 Acetaminophen Supp 650 Mg Supp.Rect [place] Q6H PRN Pain, Mild (Pain Scale 1-3) Acetaminophen 650 mg 10/09/20 19:37 Acetaminophen 325 Mg Tablet PO Q6H PRN Headache/Pain Mild Scale (1-3) Al Hydroxide/Mg Hydroxide 30 ml 10/09/20 19:37 Magnesium Hydrox/Alum Hydrox 30 Ml Oral.Susp PO Q6H PRN Heartburn/Nausea Apixaban 5 mg 10/09/20 21:00 10/18/20 20:01 Apixaban 5 Mg Tablet PO 5 mg BID ROMMEL Administration Atorvastatin Calcium 80 mg 10/09/20 21:00 10/18/20 20:02 Atorvastatin Calcium 80 Mg Tablet PO 80 mg BEDTIME ROMMEL Administration Docusate Sodium 100 mg 10/09/20 21:00 10/18/20 20:01 Docusate Sodium 100 Mg Capsule PO 100 mg BID ROMMEL Administration Duloxetine HCl 40 mg 10/10/20 09:00 10/18/20 09:24 Duloxetine Hcl 20 Mg Capsule. PO 40 mg DAILY ROMMEL Administration Ferrous Sulfate 324 mg 10/10/20 09:00 10/18/20 09:22 Ferrous Sulfate 324 Mg Tablet. PO 324 mg DAILY ROMMEL Administration Finasteride 5 mg 10/10/20 09:00 10/18/20 09:22 Finasteride 5 Mg Tablet PO 5 mg DAILY ROMMEL Administration Lorazepam 0.5 mg 10/15/20 09:00 10/18/20 20:02 Lorazepam 0.5 Mg Tablet PO 0.5 mg TID ROMMEL Administration Magnesium Hydroxide 30 ml 10/09/20 19:37 Milk Of Magnesia 30 Ml Oral.Susp PO DAILY PRN Constipation Olanzapine 10 mg 10/18/20 21:00 10/18/20 20:01 Olanzapine 10 Mg Tablet PO 10 mg BEDTIME ROMMEL Administration Omeprazole 20 mg 10/15/20 09:35 10/18/20 17:08 Omeprazole 20 Mg Capsule. PO 20 mg BID@7550,5039 ROMMEL Administration Polyethylene Glycol 17 gm 10/10/20 09:00 10/18/20 09:53 Polyethylene Glycol 3350 17 Gm Powd.Pack PO 17 gm DAILY ROMMEL Administration Allergies Allergies Allergy/AdvReac Type Severity Reaction Status Date / Time No Known Allergies Allergy Verified 10/01/20 08:19 [No Known Allergies*] Assessment & Plan Assessment & Plan (1) Anemia: Status: Acute Code(s): D64.9 - Anemia, unspecified Assessment and Plan: monitor hematocrit patient on Eliquis aspirin discontinued monitor vital signs (2) Major depressive disorder, recurrent, severe with psychotic features: Status: Acute Code(s): F33.3 - Major depressive disorder, recurrent, severe with psychotic symptoms Assessment and Plan: patient improving with ECT will hold ECT prior to endoscopy and colonoscopy (3) Physical deconditioning: Status: Acute Code(s): R53.81 - Other malaise Greater than 50% of the session was spent on counseling and/or coordination of care
[2020-10-19] MEDS: Ferrous Sulfate 324 MG TABLET.DR PO ×2 (10:25→10:26)
[2020-10-19] MEDS: Docusate Sodium 100 MG CAPSULE PO ×2 (10:25)
[2020-10-19] MEDS: Omeprazole 20 MG CAPSULE.DR PO ×2 (10:25→16:02)
[2020-10-19] MEDS: Apixaban 5 MG TABLET PO ×2 (10:26)
[2020-10-19] MEDS: DULoxetine HCl 20 MG CAPSULE.DR 40 MG PO ×2 (10:26)
[2020-10-19] MEDS: Finasteride 5 MG TABLET PO ×2 (10:26)
[2020-10-19] MEDS: LORazepam 0.5 MG TABLET PO ×4 (10:26→20:18)
[2020-10-19] MEDS: polyethylene glycoL 3350 17 GM POWD.PACK PO ×2 (10:27)
--- NOTE | 2020-10-19 14:57 | PM.EVENT ---
Event Note Date of Service: 10/19/20 Event Note: patient is scheduled for EGD colonoscopy 10/23. Iron on hold for procedure. Eliquis to be held 10/21. Clear liquids ordered 10/22 then NPO after MN except meds. Golytely (or Miralax/Gatorade if unavailable) prep to start Thursday at 1300.
[2020-10-19 15:56] LABS: MANUAL DIFF FLAG NO
[2020-10-19 16:03] LABS: Basophils Percent Auto 0.2 % (0-2); Eosinophils Absolute Auto 0.1 X10*3/uL (0.0-0.4); Eosinophils Percent Auto 2.6 % (0-4); Hemoglobin 9.5 g/dl (14.0-18.0); Imm Gran Abs Auto 0.02 X10*3/uL (0.00-0.03); Imm Gran Pct Auto 0.5 % (0.0-0.4); Lymphocytes Absolute Auto 0.8 X10*3/uL (1.2-4.9); Lymphocytes Percent Auto 19.2 % (20-40); Mean Corpuscular HGB Conc 32.8 g/dl (31.0-36.0); Mean Corpuscular Hemoglobin 31.1 pg (27.0-33.0); Mean Corpuscular Volume 95.1 fL (80-98); Mean Platelet Volume 8.6 fL (9.4-12.4); Monocytes Absolute Auto 0.6 X10*3/uL (0.1-1.2); Monocytes Percent Auto 13.8 % (2-11); Neutrophils Absolute Auto 2.7 X10*3/uL (2.0-8.3); Neutrophils Percent Auto 63.7 % (45-73); Platelet Count 236 X10*3/uL (160-400); Red Blood Count 3.05 X10*6/uL (4.60-5.80); Red Cell Distribution Width 13.4 % (11.0-16.0); White Blood Count 4.3 X10*3/uL (4.8-10.8)
[2020-10-19 16:23] LABS: Anion Gap 10 (12-20); Blood Urea Nitrogen 19 mg/dL (9-16); Calcium 7.6 mg/dL (8.4-10.2); Carbon Dioxide 27 mmol/L (22-29); Chloride 108 mmol/L (96-108); Creatinine Clr Calc Pharmacy 70.1; Estimated Glomerular Filt Rate > 60; Glucose Random 146 mg/dL (60-115); Potassium 3.7 mmol/l (3.3-5.1); Sodium 141 mmol/L (135-145)
--- NOTE | 2020-10-19 16:30 | PC.NURSE ---
Pt 100 Ativan was not given and the time slot for 1500 was taken so this RN was unable to correctly document on time given at 1500.
[2020-10-19 19:48] LABS: OBS Int Ctl Valid YES; OBS1 POS (NEG)
[2020-10-19] MEDS: Atorvastatin Calcium 80 MG TABLET PO (20:18)
[2020-10-19] MEDS: OLANZapine 10 MG TABLET PO (20:18)
[2020-10-20 06:25] VITALS: BP 133/67; PULSE 78; RESP 18; TEMP 36.8; O2SAT 97
[2020-10-20 08:00] VITALS: BP 98/63; PULSE 84
[2020-10-20] MEDS: Omeprazole 20 MG CAPSULE.DR PO ×2 (08:59→16:01)
[2020-10-20] MEDS: Docusate Sodium 100 MG CAPSULE PO ×2 (08:59→20:12)
[2020-10-20] MEDS: DULoxetine HCl 20 MG CAPSULE.DR 40 MG PO (09:00)
[2020-10-20] MEDS: LORazepam 0.5 MG TABLET PO ×5 (09:02→20:13)
[2020-10-20] MEDS: Apixaban 5 MG TABLET PO ×2 (09:02→20:17)
[2020-10-20] MEDS: Finasteride 5 MG TABLET PO ×2 (09:02)
[2020-10-20] MEDS: polyethylene glycoL 3350 17 GM POWD.PACK PO (09:03)
--- NOTE | 2020-10-20 10:15 | HO.POSTANES ---
Post Anesthesia Evaluation Post Anesthesia Evaluation Vital Signs: Vital Signs Temp Pulse Resp BP Pulse Ox 10/20/20 06:25 98.2 F 78 18 133/67 97 Anesthesia: General Mental Status: Awake Pain Control: Satisfactory Nausea/Vomiting: None Hydration: Adequate Anesthesia-Related Issues: No Anes. Related Issues
--- NOTE | 2020-10-20 17:49 | P.PNPSI_ITS ---
Subjective Subjective Date of Service: 10/20/20 Reason For Visit: Major Depressive disorder Subjective Notes: Conditional Voluntary Interim History: Guiac positive x 1. Eliquis and ASA stopped. Low Hgb Hct, with orthostasis. UGI/LGI scheduled. ECT for 10/22. Team reports pt has a brigher affect. He is visable on the unit, quiet, pleasant. No questions or concerns t rodo. Medication Compliance: Yes Side effects from medications: No Attending Groups: Intermittent Review of Systems Gastrointestinal: Reports other (Guiac +) Psychiatric: Reports depression and Reports other Mental Status Exam Mental Status Exam Patient Appearance: Appropriate Patient Orientation: Person, Place and Situation Level of Consciousness: Alert Patient Behavior: Appropriate Mood Description: Calm Affect Description: Flat Ability to Follow Directions: Good Speech Pattern: Spontaneous Speech Memory Description: Remote Impaired and Immediate Impaired Hallucinations: None Delusions: Not Present Thought Process: Slowed Thinking Thought Content: positive for [place] Depressive Symptoms: Loss of Energy Judgement: Fair Diagnostics Vital Signs (24Hr): Vital Signs - 24 hr 10/19/20 18:00 10/20/20 06:25 10/20/20 08:00 Temperature 98.8 F 98.2 F Pulse Rate 85 78 84 Respiratory Rate 18 Blood Pressure 90/51 L 133/67 98/63 Pulse Oximetry 97 Body Mass Index 24.7 Labs Results: 10/19/20 15:49 10/19/20 15:49 Labs: Laboratory Results - last 48 hr 10/19/20 10/19/20 10/19/20 15:49 15:49 19:17 WBC 4.3 L RBC 3.05 L Hgb 9.5 L Hct 29.0 L MCV 95.1 MCH 31.1 MCHC 32.8 RDW 13.4 Plt Count 236 MPV 8.6 L Immature Gran % (Auto) 0.5 H Neut % (Auto) 63.7 Lymph % (Auto) 19.2 L [place] % (Auto) 13.8 H Eos % (Auto) 2.6 Baso % (Auto) 0.2 Lymph # (Auto) 0.8 L [place] # (Auto) 0.6 Eos # (Auto) 0.1 Baso # (Auto) 0.0 Abs Immat Gran (auto) 0.02 Absolute Neuts (auto) 2.7 Absolute Nucleated RBC 0.000 Nucleated RBC % (auto) 0.0 Sodium 141 Potassium 3.7 Chloride 108 Carbon Dioxide 27 Anion Gap 10 L BUN 19 H Creatinine 0.91 Estim Creat Clear Calc 70.1 Estimated GFR > 60 Random Glucose 146 H Calcium 7.6 L Stool Occult Blood POS Imaging Radiology Impressions: ITS Impressions Chest X-Ray 10/10/20 00:00 IMPRESSION: Low lung volume. Faint linear opacity in the left midlung may be atelectasis. Medications Medications Current Medications Generic Name Dose Route Start Last Admin Trade Name Freq PRN Reason Stop Dose Admin Acetaminophen 650 mg 10/09/20 19:36 Acetaminophen Supp 650 Mg Supp.Rect [place] Q6H PRN Pain, Mild (Pain Scale 1-3) Acetaminophen 650 mg 10/09/20 19:37 Acetaminophen 325 Mg Tablet PO Q6H PRN Headache/Pain Mild Scale (1-3) Al Hydroxide/Mg Hydroxide 30 ml 10/09/20 19:37 Magnesium Hydrox/Alum Hydrox 30 Ml Oral.Susp PO Q6H PRN Heartburn/Nausea Apixaban 5 mg 10/09/20 21:00 10/20/20 09:02 Apixaban 5 Mg Tablet PO 5 mg BID ROMMEL Administration Atorvastatin Calcium 80 mg 10/09/20 21:00 10/19/20 20:18 Atorvastatin Calcium 80 Mg Tablet PO 80 mg BEDTIME ROMMEL Administration Docusate Sodium 100 mg 10/09/20 21:00 10/20/20 08:59 Docusate Sodium 100 Mg Capsule PO 100 mg BID ROMMEL Administration Duloxetine HCl 40 mg 10/10/20 09:00 10/20/20 09:00 Duloxetine Hcl 20 Mg Capsule. PO 40 mg DAILY ROMMEL Administration Ferrous Sulfate 324 mg 10/10/20 09:00 10/19/20 10:26 Ferrous Sulfate 324 Mg Tablet. PO 324 mg DAILY ROMMEL Administration Finasteride 5 mg 10/10/20 09:00 10/20/20 09:02 Finasteride 5 Mg Tablet PO 5 mg DAILY ROMMEL Administration Lorazepam 0.5 mg 10/15/20 09:00 10/20/20 14:37 Lorazepam 0.5 Mg Tablet PO 0.5 mg TID ROMMEL Administration Magnesium Hydroxide 30 ml 10/09/20 19:37 Milk Of Magnesia 30 Ml Oral.Susp PO DAILY PRN Constipation Olanzapine 10 mg 10/18/20 21:00 10/19/20 20:18 Olanzapine 10 Mg Tablet PO 10 mg BEDTIME ROMMEL Administration Omeprazole 20 mg 10/15/20 09:35 10/20/20 16:01 Omeprazole 20 Mg Capsule. PO 20 mg BID@0630,1630 ROMMEL Administration Polyethylene Glycol 17 gm 10/10/20 09:00 10/20/20 09:03 Polyethylene Glycol 3350 17 Gm Powd.Pack PO 17 gm DAILY ROMMEL Administration Polyethylene Glycol 238 gm 10/22/20 13:00 Polyethylene Glycol 3350 17 Gm Powd.Pack PO 10/22/20 13:01 ONCE@1300 [facility] Allergies Allergies Allergy/AdvReac Type Severity Reaction Status Date / Time No Known Allergies Allergy Verified 10/01/20 08:19 [No Known Allergies*] Assessment & Plan Assessment & Plan (1) Major depressive disorder, recurrent, severe with psychotic features: Status: Acute Code(s): F33.3 - Major depressive disorder, recurrent, severe with psychotic symptoms Assessment and Plan: -Continue current regime -ECT scheduled on 10/22/20 Greater than 50% of the session was spent on counseling and/or coordination of c are
[2020-10-20] MEDS: OLANZapine 10 MG TABLET PO (20:12)
[2020-10-20] MEDS: Atorvastatin Calcium 80 MG TABLET PO (20:12)
[2020-10-20 20:54] VITALS: BP 101/60; PULSE 85; TEMP 36.6
[2020-10-21 06:38] VITALS: BP 128/58; PULSE 82; RESP 16; TEMP 36.3; O2SAT 96
[2020-10-21] MEDS: polyethylene glycoL 3350 17 GM POWD.PACK PO (08:31)
[2020-10-21] MEDS: Omeprazole 20 MG CAPSULE.DR PO ×2 (08:33→16:17)
[2020-10-21] MEDS: Docusate Sodium 100 MG CAPSULE PO ×2 (08:33→20:04)
[2020-10-21] MEDS: DULoxetine HCl 20 MG CAPSULE.DR 40 MG PO ×2 (08:33)
[2020-10-21] MEDS: LORazepam 0.5 MG TABLET PO ×4 (08:33→20:04)
[2020-10-21] MEDS: Finasteride 5 MG TABLET PO ×2 (08:34)
[2020-10-21 15:40] VITALS: BP 91/52; PULSE 93
[2020-10-21 16:00] VITALS: BP 99/63; PULSE 80
--- NOTE | 2020-10-21 16:00 | P.PNPSI_ITS ---
Subjective Subjective Date of Service: 10/21/20 Reason For Visit: Major Depressive disorder Subjective Notes: Conditional Voluntary Interim History: Gradual improvement. In milieu with team, participating. ECT for 10/22 is postponed until 10/24 as pt will be involved in GI preparations for eval on 10/23. Medication Compliance: Yes Side effects from medications: No Attending Groups: Yes Review of Systems Reports confusion Psychiatric: Reports confusion, Reports depression, Reports difficulty concentrating and Reports anhedonia Mental Status Exam Mental Status Exam Patient Appearance: Appropriate Patient Orientation: Person, Place and Situation Level of Consciousness: Alert Patient Behavior: Cooperative Mood Description: Depressed Affect Description: Flat Patient Cognition Impaired: Yes Ability to Follow Directions: Good Speech Pattern: Spontaneous Speech Hallucinations: None Delusions: Not Present Thought Process: Slowed Thinking Thought Content: positive for [place] and positive for Circumstantial Judgement: Fair Diagnostics Vital Signs (24Hr): Vital Signs - 24 hr 10/20/20 20:54 10/21/20 06:38 10/21/20 15:40 Temperature 97.8 F 97.3 F Pulse Rate 85 82 93 Respiratory Rate 16 Blood Pressure 101/60 128/58 L 91/52 L Pulse Oximetry 96 Body Mass Index 24.7 Labs Results: 10/19/20 15:49 10/19/20 15:49 Labs: Laboratory Results - last 48 hr 10/19/20 10/19/20 10/19/20 15:49 15:49 19:17 WBC 4.3 L RBC 3.05 L Hgb 9.5 L Hct 29.0 L MCV 95.1 MCH 31.1 MCHC 32.8 RDW 13.4 Plt Count 236 MPV 8.6 L Immature Gran % (Auto) 0.5 H Neut % (Auto) 63.7 Lymph % (Auto) 19.2 L [place] % (Auto) 13.8 H Eos % (Auto) 2.6 Baso % (Auto) 0.2 Lymph # (Auto) 0.8 L [place] # (Auto) 0.6 Eos # (Auto) 0.1 Baso # (Auto) 0.0 Abs Immat Gran (auto) 0.02 Absolute Neuts (auto) 2.7 Absolute Nucleated RBC 0.000 Nucleated RBC % (auto) 0.0 Sodium 141 Potassium 3.7 Chloride 108 Carbon Dioxide 27 Anion Gap 10 L BUN 19 H Creatinine 0.91 Estim Creat Clear Calc 70.1 Estimated GFR > 60 Random Glucose 146 H Calcium 7.6 L Stool Occult Blood POS Imaging Radiology Impressions: ITS Impressions Chest X-Ray 10/10/20 00:00 IMPRESSION: Low lung volume. Faint linear opacity in the left midlung may be atelectasis. Medications Medications Current Medications Generic Name Dose Route Start Last Admin Trade Name Freq PRN Reason Stop Dose Admin Acetaminophen 650 mg 10/09/20 19:36 Acetaminophen Supp 650 Mg Supp.Rect [place] Q6H PRN Pain, Mild (Pain Scale 1-3) Acetaminophen 650 mg 10/09/20 19:37 Acetaminophen 325 Mg Tablet PO Q6H PRN Headache/Pain Mild Scale (1-3) Al Hydroxide/Mg Hydroxide 30 ml 10/09/20 19:37 Magnesium Hydrox/Alum Hydrox 30 Ml Oral.Susp PO Q6H PRN Heartburn/Nausea Apixaban 5 mg 10/09/20 21:00 10/20/20 20:17 Apixaban 5 Mg Tablet PO 5 mg BID ROMMEL Administration Atorvastatin Calcium 80 mg 10/09/20 21:00 10/20/20 20:12 Atorvastatin Calcium 80 Mg Tablet PO 80 mg BEDTIME ROMMEL Administration Docusate Sodium 100 mg 10/09/20 21:00 10/21/20 08:33 Docusate Sodium 100 Mg Capsule PO 100 mg BID ROMMEL Administration Duloxetine HCl 40 mg 10/10/20 09:00 10/21/20 08:33 Duloxetine Hcl 20 Mg Capsule. PO 40 mg DAILY ROMMEL Administration Ferrous Sulfate 324 mg 10/10/20 09:00 10/19/20 10:26 Ferrous Sulfate 324 Mg Tablet. PO 324 mg DAILY ROMMEL Administration Finasteride 5 mg 10/10/20 09:00 10/21/20 08:34 Finasteride 5 Mg Tablet PO 5 mg DAILY ROMMEL Administration Lorazepam 0.5 mg 10/15/20 09:00 10/21/20 08:33 Lorazepam 0.5 Mg Tablet PO 0.5 mg TID ROMMEL Administration Magnesium Hydroxide 30 ml 10/09/20 19:37 Milk Of Magnesia 30 Ml Oral.Susp PO DAILY PRN Constipation Olanzapine 10 mg 10/18/20 21:00 10/20/20 20:12 Olanzapine 10 Mg Tablet PO 10 mg BEDTIME ROMMEL Administration Omeprazole 20 mg 10/15/20 09:35 10/21/20 08:33 Omeprazole 20 Mg Capsule.Dr PO 20 mg BID@0630,1630 ROMMEL Administration Polyethylene Glycol 17 gm 10/10/20 09:00 10/21/20 08:31 Polyethylene Glycol 3350 17 Gm Powd.Pack PO 17 gm DAILY ROMMEL Administration Polyethylene Glycol 238 gm 10/22/20 13:00 Polyethylene Glycol 3350 17 Gm Powd.Pack PO 10/22/20 13:01 ONCE@1300 ROMMEL Allergies Allergies Allergy/AdvReac Type Severity Reaction Status Date / Time No Known Allergies Allergy Verified 10/01/20 08:19 [No Known Allergies*] Assessment & Plan Assessment & Plan (1) Major depressive disorder, recurrent, severe with psychotic features: Status: Acute Code(s): F33.3 - Major depressive disorder, recurrent, severe with psychotic symptoms Assessment and Plan: -Continue POC -ECT postponed until 10/24/20 (2) Anemia: Status: Acute Code(s): D64.9 - Anemia, unspecified Assessment and Plan: -Evaluation in process. Testing preparations in process. Greater than 50% of the session was spent on counseling and/or coordination of care
[2020-10-21 18:00] VITALS: TEMP 37.3
[2020-10-21] MEDS: Atorvastatin Calcium 80 MG TABLET PO (20:04)
[2020-10-21] MEDS: OLANZapine 10 MG TABLET PO (20:04)
[2020-10-22] MEDS: Omeprazole 20 MG CAPSULE.DR PO ×2 (06:08→17:04)
[2020-10-22 06:35] VITALS: BP 124/67; PULSE 76; RESP 18; TEMP 36.8; O2SAT 95
[2020-10-22] MEDS: DULoxetine HCl 20 MG CAPSULE.DR 40 MG PO (09:08)
[2020-10-22] MEDS: Docusate Sodium 100 MG CAPSULE PO ×2 (09:08→21:13)
[2020-10-22] MEDS: LORazepam 0.5 MG TABLET PO ×3 (09:09→21:14)
[2020-10-22] MEDS: polyethylene glycoL 3350 17 GM POWD.PACK 238 GM PO (13:06)
--- NOTE | 2020-10-22 15:18 | HO.PSYCHPN ---
Subjective Subjective Date of Service: 10/22/20 Reason For Visit: Major Depressive disorder Subjective Notes: Conditional Voluntary Interim History: patient shows full range of affect improved energy and mood agreeable to endoscopy colonoscopy tomorrow Medication Compliance: Yes Review of Systems Reports confusion Psychiatric: Reports confusion Mental Status Exam Mental Status Exam Narrative: improving mood and judgment full range of affect with able to engaged with others more Patient Appearance: Appropriate Patient Orientation: Person, Place and Situation Level of Consciousness: Alert Patient Behavior: Cooperative Mood Description: Depressed and Flat Affect Description: Blunted and Flat Patient Cognition Impaired: Yes Ability to Follow Directions: Good Speech Pattern: Spontaneous Speech Hallucinations: None Delusions: Not Present Thought Process: Slowed Thinking Thought Content: positive for [place] and positive for Circumstantial Judgement: Fair Diagnostics Vital Signs (24Hr): Vital Signs - 24 hr 10/21/20 15:40 10/21/20 16:00 10/21/20 18:00 Temperature 99.1 F Pulse Rate 93 80 Respiratory Rate Blood Pressure 91/52 L 99/63 Pulse Oximetry 10/22/20 06:35 Temperature 98.2 F Pulse Rate 76 Respiratory Rate 18 Blood Pressure 124/67 Pulse Oximetry 95 Body Mass Index 24.7 Labs Results: 10/19/20 15:49 10/19/20 15:49 Imaging Radiology Impressions: ITS Impressions Chest X-Ray 10/10/20 00:00 IMPRESSION: Low lung volume. Faint linear opacity in the left midlung may be atelectasis. Medications Medications Current Medications Generic Name Dose Route Start Last Admin Trade Name Freq PRN Reason Stop Dose Admin Acetaminophen 650 mg 10/09/20 19:36 Acetaminophen Supp 650 Mg Supp.Rect [place] Q6H PRN Pain, Mild (Pain Scale 1-3) Acetaminophen 650 mg 10/09/20 19:37 Acetaminophen 325 Mg Tablet PO Q6H PRN Headache/Pain Mild Scale (1-3) Al Hydroxide/Mg Hydroxide 30 ml 10/09/20 19:37 Magnesium Hydrox/Alum Hydrox 30 Ml Oral.Susp PO Q6H PRN Heartburn/Nausea Apixaban 5 mg 10/09/20 21:00 10/20/20 20:17 Apixaban 5 Mg Tablet PO 5 mg BID ROMMEL Administration Atorvastatin Calcium 80 mg 10/09/20 21:00 10/21/20 20:04 Atorvastatin Calcium 80 Mg Tablet PO 80 mg BEDTIME ROMMEL Administration Docusate Sodium 100 mg 10/09/20 21:00 10/22/20 09:08 Docusate Sodium 100 Mg Capsule PO 100 mg BID ROMMEL Administration Duloxetine HCl 20 mg 10/23/20 09:00 Duloxetine Hcl 20 Mg Capsule. PO DAILY ROMMEL Ferrous Sulfate 324 mg 10/10/20 09:00 10/19/20 10:26 Ferrous Sulfate 324 Mg Tablet. PO 324 mg DAILY ROMMEL Administration Finasteride 5 mg 10/10/20 09:00 10/21/20 08:34 Finasteride 5 Mg Tablet PO 5 mg DAILY ROMMEL Administration Lorazepam 0.5 mg 10/15/20 09:00 10/22/20 14:33 Lorazepam 0.5 Mg Tablet PO 0.5 mg TID ROMMEL Administration Magnesium Hydroxide 30 ml 10/09/20 19:37 Milk Of Magnesia 30 Ml Oral.Susp PO DAILY PRN Constipation Olanzapine 10 mg 10/18/20 21:00 10/21/20 20:04 Olanzapine 10 Mg Tablet PO 10 mg BEDTIME ROMMEL Administration Omeprazole 20 mg 10/15/20 09:35 10/22/20 06:08 Omeprazole 20 Mg Capsule. PO 20 mg BID@0630,0560 ROMMEL Administration Polyethylene Glycol 17 gm 10/10/20 09:00 10/21/20 08:31 Polyethylene Glycol 3350 17 Gm Powd.Pack PO 17 gm DAILY ROMMEL Administration Allergies Allergies Allergy/AdvReac Type Severity Reaction Status Date / Time No Known Allergies Allergy Verified 10/01/20 08:19 [No Known Allergies*] Assessment & Plan Assessment & Plan (1) Major depressive disorder, recurrent, severe with psychotic features: Status: Acute Code(s): F33.3 - Major depressive disorder, recurrent, severe with psychotic symptoms Assessment and Plan: ECT on hold for today secondary to GI workup will schedule ECT for October 24 (2) Physical deconditioning: Status: Acute Code(s): R53.81 - Other malaise Assessment and Plan: encouraged physical activity out of bed (3) Anemia: Status: Acute Code(s): D64.9 - Anemia, unspecified Assessment and Plan: GI workup Greater than 50% of the session was spent on counseling and/or coordination of care
[2020-10-22 19:00] VITALS: BP 103/58; BP 113/63; PULSE 75; PULSE 80; TEMP 36.8
[2020-10-22] MEDS: OLANZapine 10 MG TABLET PO (21:14)
[2020-10-22] MEDS: Atorvastatin Calcium 80 MG TABLET PO (21:14)
[2020-10-23] VITALS (7 sets, daily range): BP systolic 90–134; BP diastolic 58–90; PULSE 66–104; RESP 16–18; TEMP 36.6–37.1; O2SAT 94–98
[2020-10-23] MEDS: LORazepam 0.5 MG TABLET PO ×3 (08:39→20:56)
[2020-10-23] MEDS: Docusate Sodium 100 MG CAPSULE PO ×2 (08:39→20:56)
[2020-10-23] MEDS: Finasteride 5 MG TABLET PO (08:39)
[2020-10-23] MEDS: Omeprazole 20 MG CAPSULE.DR PO (08:39)
[2020-10-23] MEDS: DULoxetine HCl 20 MG CAPSULE.DR PO (08:39)
--- NOTE | 2020-10-23 11:50 | MHC.SHP ---
Pre-Procedural Eval Section A The patient is an INPATIENT: Yes The History & Physical has been completed within 30 days and I have reviewed it.: Yes Section B Chief Complaint: Major Depressive disorder Allergies: Allergies Allergy/AdvReac Type Severity Reaction Status Date / Time No Known Allergies Allergy Verified 10/01/20 08:19 [No Known Allergies*] Plan I have reviewed the history and physical and performed a pertinent physical examination on my patient. No changes have occurred unless specified.
[2020-10-23] MEDS: Lactated Ringers 1,000 ML 100 ML IVCONT (11:58)
--- NOTE | 2020-10-23 12:43 | PM.OP ---
Brief Operative Note Date of Service: 10/23/20 Pre-op diagnosis: iron def anemia, heme pos stools Post-op diagnosis: same (eroxive esophagitis, colon polyps) Procedure: egd, colonscopy Surgeon: Jose Alejandro White Estimated blood loss (mL): 5 Pathology: other (polyps R colon, 70 cm and 60 cm) Condition: stable Disposition: PACU
--- NOTE | 2020-10-23 12:46 | PM.EVENT ---
Event Note Date of Service: 10/23/20 Event Note: EGD/Colonoscopy dictated EGD shows erosive esophagitis over last 10 cm of esophagus normal stomach and duodenum 3 colon polyps removed, largest 8-10 mm. Rec: Advance diet increase omeprazole to 40 mg bid repeat egd in 8 weeks to assess for healing followup the biopsy results. Hold eliquis x 48 hrs.
--- NOTE | 2020-10-23 15:52 | HO.PSYCHPN ---
Subjective Subjective Date of Service: 10/23/20 Reason For Visit: Major Depressive disorder Subjective Notes: Conditional Voluntary Interim History: patient noted to have esophagitis erosive multiple polyps which were removed. Eliquis on hold x2 days patient scheduled for ECT tomorrow Review of Systems Reports confusion Psychiatric: Reports confusion Mental Status Exam Mental Status Exam Narrative: improving mood and judgment full range of affect with able to engaged with others more Patient Appearance: Appropriate Patient Orientation: Person, Place and Situation Level of Consciousness: Alert Patient Behavior: Cooperative Mood Description: Depressed and Flat Affect Description: Blunted and Flat Patient Cognition Impaired: Yes Ability to Follow Directions: Good Speech Pattern: Spontaneous Speech Hallucinations: None Delusions: Not Present Thought Process: Slowed Thinking Thought Content: positive for [place] and positive for Circumstantial Judgement: Fair Diagnostics Vital Signs (24Hr): Vital Signs - 24 hr 10/22/20 19:00 10/23/20 06:10 10/23/20 11:56 Temperature 98.3 F 98.2 F 97.8 F Pulse Rate 80 84 104 H Respiratory Rate 16 16 Blood Pressure 113/63 114/70 129/90 H Pulse Oximetry 96 96 10/23/20 12:42 10/23/20 12:57 10/23/20 13:12 Temperature 98.4 F 98.7 F Pulse Rate 72 66 72 Respiratory Rate 17 16 18 Blood Pressure 90/58 L 123/77 134/76 Pulse Oximetry 95 94 98 10/23/20 14:25 Temperature Pulse Rate 76 Respiratory Rate Blood Pressure 105/65 Pulse Oximetry Body Mass Index 24.7 Labs Results: 10/19/20 15:49 10/19/20 15:49 Imaging Radiology Impressions: ITS Impressions Chest X-Ray 10/10/20 00:00 IMPRESSION: Low lung volume. Faint linear opacity in the left midlung may be atelectasis. Medications Medications Current Medications Generic Name Dose Route Start Last Admin Trade Name Freq PRN Reason Stop Dose Admin Acetaminophen 650 mg 10/09/20 19:36 Acetaminophen Supp 650 Mg Supp.Rect FL Q6H PRN Pain, Mild (Pain Scale 1-3) Acetaminophen 650 mg 10/09/20 19:37 Acetaminophen 325 Mg Tablet PO Q6H PRN Headache/Pain Mild Scale (1-3) Al Hydroxide/Mg Hydroxide 30 ml 10/09/20 19:37 Magnesium Hydrox/Alum Hydrox 30 Ml Oral.Susp PO Q6H PRN Heartburn/Nausea Apixaban 5 mg 10/09/20 21:00 10/20/20 20:17 Apixaban 5 Mg Tablet PO 5 mg BID ROMMEL Administration Atorvastatin Calcium 80 mg 10/09/20 21:00 10/22/20 21:14 Atorvastatin Calcium 80 Mg Tablet PO 80 mg BEDTIME ROMMEL Administration Docusate Sodium 100 mg 10/09/20 21:00 10/23/20 08:39 Docusate Sodium 100 Mg Capsule PO 100 mg BID ROMMEL Administration Duloxetine HCl 20 mg 10/23/20 09:00 10/23/20 08:39 Duloxetine Hcl 20 Mg Capsule. PO 20 mg DAILY ROMMEL Administration Ferrous Sulfate 324 mg 10/10/20 09:00 10/19/20 10:26 Ferrous Sulfate 324 Mg Tablet. PO 324 mg DAILY ROMMEL Administration Finasteride 5 mg 10/10/20 09:00 10/23/20 08:39 Finasteride 5 Mg Tablet PO 5 mg DAILY ROMMEL Administration Lactated Ringer's 1,000 mls @ 100 mls/hr 10/23/20 11:30 10/23/20 15:16 Lr IVCONT Infused .Q10H ROMMEL Infusion Lorazepam 0.5 mg 10/15/20 09:00 10/23/20 14:46 Lorazepam 0.5 Mg Tablet PO 0.5 mg TID ROMMEL Administration Magnesium Hydroxide 30 ml 10/09/20 19:37 Milk Of Magnesia 30 Ml Oral.Susp PO DAILY PRN Constipation Olanzapine 10 mg 10/18/20 21:00 10/22/20 21:14 Olanzapine 10 Mg Tablet PO 10 mg BEDTIME ROMMEL Administration Omeprazole 40 mg 10/23/20 16:30 Omeprazole 40 Mg Capsule. PO BID@0630,1630 [facility] Ondansetron HCl 4 mg 10/23/20 11:25 Ondansetron Hcl 4 Mg/2 Ml Vial IVPUSH ONCE PRN Nausea and Vomiting Polyethylene Glycol 17 gm 10/10/20 09:00 10/23/20 08:40 Polyethylene Glycol 3350 17 Gm Powd.Pack PO Not Given DAILY ROMMEL Vortioxetine 5 mg 10/24/20 09:00 Vortioxetine Hydrobromide 5 Mg Tablet PO DAILY ROMMEL Allergies Allergies Allergy/AdvReac Type Severity Reaction Status Date / Time No Known Allergies Allergy Verified 10/01/20 08:19 [No Known Allergies*] Assessment & Plan Assessment & Plan (1) Major depressive disorder, recurrent, severe with psychotic features: Status: Acute Code(s): F33.3 - Major depressive disorder, recurrent, severe with psychotic symptoms Assessment and Plan: patient scheduled for ECT tomorrow start Trintellix (2) Anemia: Status: Acute Code(s): D64.9 - Anemia, unspecified Assessment and Plan: endoscopy colonoscopy completed erosive esophagitis polyps noted Greater than 50% of the session was spent on counseling and/or coordination of care
[2020-10-23] MEDS: Omeprazole 40 MG CAPSULE.DR PO (16:58)
--- NOTE | 2020-10-23 20:42 | OP_ITS ---
SURGEON: Jose Alejandro White MD INDICATIONS: Iron deficiency anemia and Hemoccult-positive stools. PREOPERATIVE DIAGNOSIS: POSTOPERATIVE DIAGNOSIS: PROCEDURE PERFORMED: 1. Upper endoscopy. 2. Colonoscopy to the terminal ileum with biopsy and snare polypectomy. ESTIMATED BLOOD LOSS: COMPLICATIONS: ANESTHESIA: ASSISTANTS: SPECIMENS: MEDICATIONS: Monitored anesthesia care. DESCRIPTION OF PROCEDURE: History and physical performed. The risks and benefits of the procedure were explained to the patient. Informed consent was obtained. The patient was placed in the left lateral decubitus position. The Olympus video gastroscope was introduced into the esophagus, stomach, and duodenum. The examination was performed. The scope was removed. He tolerated the procedure well and was repositioned for colonoscopy. A digital rectal exam was performed and was found to be normal. The Olympus pediatric video colonoscope was introduced into the rectum and advanced to the cecum without difficulty. The cecum was identified by transillumination, palpation, and identification of ileocecal valve. Examination was performed. The scope was removed. He tolerated both procedures well and was returned to recovery area in stable condition. FINDINGS: UPPER ENDOSCOPY: Esophagus: There were changes of erosive esophagitis present over the last 10 cm of the esophagus with ulceration and exudates. No bleeding was identified. Stomach: The stomach showed no evidence of masses, ulcers, or polyps. Duodenum: The bulb and second portions were normal. COLONOSCOPY: The terminal ileum was normal. The visualized colonic mucosa was within normal limits without evidence of masses or ulcers. No colitis was identified. A total of 3 polyps were identified and removed. The 1st was a 10 mm x 6 mm sessile polyp in the right colon, which was removed with a snare and recovered via suction. The 2nd was a less than 5 mm sessile polyp at 70 cm, which was removed with biopsy forceps. The 3rd was a 5 mm polyp, which was removed with a snare and recovered via suction. Retroflexed examination showed internal hemorrhoids. There was a patent surgical anastomosis at about 20 cm consistent with his previous history of a diverticular resection. Retroflexed examination showed small internal hemorrhoids. IMPRESSION: 1. Erosive esophagitis. 2. Colon polyps. RECOMMENDATIONS: 1. Increase acid suppressive therapy to 40 mg of omeprazole b.i.d. 2. Follow up the biopsy results. 3. Repeat upper endoscopy in 8-12 weeks to assess for healing of esophagitis. MD NEFTALI Blackburn/REILLY / [id number]
[2020-10-23] MEDS: OLANZapine 10 MG TABLET PO (20:56)
[2020-10-23] MEDS: Atorvastatin Calcium 80 MG TABLET PO (20:56)
[2020-10-24] VITALS (12 sets, daily range): BP systolic 100–155; BP diastolic 52–99; PULSE 70–94; RESP 16–22; TEMP 36.3–37.1; O2SAT 95–100
--- NOTE | 2020-10-24 07:14 | MHC.SHP ---
Pre-Procedural Eval Section B Chief Complaint: Major Depressive disorder Details of Present Illness: recurrent depression s/p polyp colon removal esophagitis Relevant Family History (Specify if Yes): No Relevant Social History: None Present Medications: see Short Stay Collaborative assessment Medical History: Significant History (PE colon resection) History of Previous Operations: Relevant previous surgery/procedure and date(s) (ect colonoscopy colon resection) Allergies: Allergies Allergy/AdvReac Type Severity Reaction Status Date / Time No Known Allergies Allergy Verified 10/01/20 08:19 [No Known Allergies*] Review of Systems Sugical H&P ROS: Negative: Constitution, Gastrointestinal (polpectomy esophagitis) and Musculoskeletal (gen weakness) and Yes, Specify: Cardiovascular and Allergic/Immunologic Exam Surgical H&P Exam: Normal: Heart and Normal: Lungs and Not Evaluated: Neurological Plan Diagnosis/Plan: Unchanged I have reviewed the history and physical and performed a pertinent physical examination on my patient. No changes have occurred unless specified.
--- NOTE | 2020-10-24 07:16 | HO.ANESPROP2 ---
[facility] Past Medical History Medical History Dementia Depression Diverticulitis of colon with perforation GERD (gastroesophageal reflux disease) HTN (hypertension) Hyperlipidemia Major depressive disorder, recurrent, severe with psychotic features Pulmonary embolism SVT (supraventricular tachycardia) Family History Family History Brother Blood clot in vein Other No history of cardiac disorder Surgical History Surgical History H/O hernia repair History of colostomy reversal Status post Paula's procedure Social History Social History Household Members: Other Housing: Assisted Living Facility Alcohol intake: former Smoking Status: Never smoker Second Hand Smoke Exposure: No Advance Directives Date on File: 07/27/20 service: Yes ([employer]) Current occupational status: retired Sexual orientation: Straight/Heterosexual Meds Allergies Allergy/AdvReac Type Severity Reaction Status Date / Time No Known Allergies Allergy Verified 10/01/20 08:19 [No Known Allergies*] Home Medications Medication Instructions Recorded Confirmed Type doxazosin 2 mg PO DAILY 07/26/20 10/07/20 History olanzapine 20 mg PO BEDTIME 07/26/20 10/07/20 History oxybutynin chloride 5 mg PO DAILY 07/26/20 10/07/20 History docusate sodium [Colace] 100 mg PO BID 09/13/20 10/07/20 History polyethylene glycol 3350 [Miralax] 17 g PO DAILY 09/13/20 10/07/20 History duloxetine [Cymbalta] 40 mg PO DAILY 10/07/20 10/07/20 History ferrous sulfate 325 mg PO DAILY 10/07/20 10/07/20 History finasteride 5 mg PO DAILY 10/07/20 10/07/20 History lorazepam 0.5 mg PO TID 10/07/20 10/07/20 History trazodone 50 mg PO BEDTIME 10/07/20 10/07/20 History Exam Exam Date and Time: October 24, 2020 0716 Height,Weight and Vital Signs: Height 5 ft 10.87 in Weight 80.2 kg Last Vital Signs Temp 98.7 F 10/24/20 06:38 Pulse 94 10/24/20 06:38 Resp 22 H 10/24/20 06:38 BP 122/93 H 10/24/20 06:38 Pulse Ox 96 10/24/20 06:38 Pertinent Lab Results Pertinent Lab Results: Laboratory Tests 10/11/20 10/14/20 10/14/20 08:25 15:58 15:58 WBC 4.4 L 4.0 L RBC 3.43 L 3.10 L Hgb 10.9 L 9.7 L Hct 32.4 L 28.9 L MCV 94.5 93.2 MCH 31.8 31.3 MCHC 33.6 33.6 RDW 13.2 13.3 Plt Count 147 L 169 MPV 8.7 L 8.8 L Immature Gran % (Auto) 0.5 H 0.2 Neut % (Auto) 69.5 71.1 Lymph % (Auto) 15.6 L 17.1 L [place] % (Auto) 14.2 H 10.4 Eos % (Auto) 0.2 1.0 Baso % (Auto) 0.0 0.2 Lymph # (Auto) 0.7 L 0.7 L [place] # (Auto) 0.6 0.4 Eos # (Auto) 0.0 0.0 Baso # (Auto) 0.0 0.0 Abs Immat Gran (auto) 0.02 0.01 Absolute Neuts (auto) 3.0 2.9 Absolute Nucleated RBC 0.000 0.000 Nucleated RBC % (auto) 0.0 0.0 Smear Tech's Comments VERIFIED VERIFIED Sodium 139 Potassium 3.4 Chloride 106 Carbon Dioxide 25 Anion Gap 11 L BUN 26 H Creatinine 0.73 Estim Creat Clear Calc 87.5 Estimated GFR > 60 Random Glucose 139 H Calcium 7.4 L D Stool Occult Blood 10/15/20 10/16/20 10/16/20 07:28 09:56 09:56 WBC 4.8 3.6 L RBC 3.07 L 3.14 L Hgb 9.7 L 9.8 L Hct 28.8 L 29.5 L MCV 93.8 93.9 MCH 31.6 31.2 MCHC 33.7 33.2 RDW 13.2 13.3 Plt Count 192 198 MPV 8.9 L 8.7 L Immature Gran % (Auto) 0.4 0.6 H Neut % (Auto) 72.6 74.1 H Lymph % (Auto) 15.6 L 15.0 L [place] % (Auto) 10.2 8.1 Eos % (Auto) 1.0 1.9 Baso % (Auto) 0.2 0.3 Lymph # (Auto) 0.8 L 0.5 L [place] # (Auto) 0.5 0.3 Eos # (Auto) 0.1 0.1 Baso # (Auto) 0.0 0.0 Abs Immat Gran (auto) 0.02 0.02 Absolute Neuts (auto) 3.5 2.7 Absolute Nucleated RBC 0.000 0.000 Nucleated RBC % (auto) 0.0 0.0 Smear Tech's Comments VERIFIED Sodium 141 Potassium 3.5 Chloride 108 Carbon Dioxide 27 Anion Gap 10 L BUN 14 Creatinine 0.78 Estim Creat Clear Calc 81.8 Estimated GFR > 60 Random Glucose 132 H Calcium 7.7 L Stool Occult Blood 10/16/20 10/17/20 10/17/20 Unknown 16:50 16:50 WBC 4.9 RBC 3.26 L Hgb 10.2 L Hct 30.9 L MCV 94.8 MCH 31.3 MCHC 33.0 RDW 13.2 Plt Count 230 MPV 9.4 Immature Gran % (Auto) 0.4 Neut % (Auto) 68.3 Lymph % (Auto) 15.5 L [place] % (Auto) 13.6 H Eos % (Auto) 2.0 Baso % (Auto) 0.2 Lymph # (Auto) 0.8 L [place] # (Auto) 0.7 Eos # (Auto) 0.1 Baso # (Auto) 0.0 Abs Immat Gran (auto) 0.02 Absolute Neuts (auto) 3.4 Absolute Nucleated RBC 0.000 Nucleated RBC % (auto) 0.0 Smear Tech's Comments Sodium 143 Potassium 3.7 Chloride 107 Carbon Dioxide 28 Anion Gap 12 BUN 18 H Creatinine 0.85 Estim Creat Clear Calc 75.1 Estimated GFR > 60 Random Glucose 117 H Calcium 7.8 L Stool Occult Blood POS 10/19/20 10/19/20 10/19/20 15:49 15:49 19:17 WBC 4.3 L RBC 3.05 L Hgb 9.5 L Hct 29.0 L MCV 95.1 MCH 31.1 MCHC 32.8 RDW 13.4 Plt Count 236 MPV 8.6 L Immature Gran % (Auto) 0.5 H Neut % (Auto) 63.7 Lymph % (Auto) 19.2 L [place] % (Auto) 13.8 H Eos % (Auto) 2.6 Baso % (Auto) 0.2 Lymph # (Auto) 0.8 L [place] # (Auto) 0.6 Eos # (Auto) 0.1 Baso # (Auto) 0.0 Abs Immat Gran (auto) 0.02 Absolute Neuts (auto) 2.7 Absolute Nucleated RBC 0.000 Nucleated RBC % (auto) 0.0 Smear Tech's Comments Sodium 141 Potassium 3.7 Chloride 108 Carbon Dioxide 27 Anion Gap 10 L BUN 19 H Creatinine 0.91 Estim Creat Clear Calc 70.1 Estimated GFR > 60 Random Glucose 146 H Calcium 7.6 L Stool Occult Blood POS Airway Mallampati Class: III TM Dist: >3cm Denture: Upper Heart: RRR Lungs: CTA
--- NOTE | 2020-10-24 08:15 | HO.ECTPROC ---
ECT Procedure Note Diagnosis/Treatment Diagnosis: Major Depressive Disorder Current Treatment Number: 6 Treatment: Series Interval Clinical Notes: PT S/P ENDOSCOPY COLONOSCOPY POLYPECTOMY ECT Settings Device: THYMATRON DGx Electrode Placement: Right Unilateral Program/Pulse Width: 0.25 Energy Percent: 100 Seizure Duration By EEG (in seconds): 20 Medications Administration General Anesthetic: Etomidate (12) Muscle Relaxant: Succinylcholine (100) Ancillary Medications Cardiovascular Medications: Labetolol (10 MG PRETX ) Miscillaneous Medications: Flumazenil Airway Management Airway Management: Bag Mask Ventilation Treatment Recommendations Program/Pulse Width: 0.50 Notes: POST OP SOME CONFUSION INC PROGRAM 0.5 Pt Tolerated Procedure w/o Issue: Yes
[2020-10-24] MEDS: Ferrous Sulfate 324 MG TABLET.DR PO (08:59)
[2020-10-24] MEDS: Omeprazole 40 MG CAPSULE.DR PO ×2 (08:59→16:56)
[2020-10-24] MEDS: DULoxetine HCl 20 MG CAPSULE.DR PO (09:00)
[2020-10-24] MEDS: Finasteride 5 MG TABLET PO (09:00)
[2020-10-24] MEDS: Docusate Sodium 100 MG CAPSULE PO ×2 (09:00→21:55)
[2020-10-24] MEDS: LORazepam 0.5 MG TABLET PO ×3 (09:01→21:56)
[2020-10-24] MEDS: polyethylene glycoL 3350 17 GM POWD.PACK PO (09:39)
[2020-10-24] MEDS: Vortioxetine Hydrobromide 5 MG TABLET PO (09:40)
--- NOTE | 2020-10-24 12:29 | P.PNPSI_ITS ---
Subjective Subjective Date of Service: 10/24/20 Reason For Visit: Major Depressive disorder Subjective Notes: Conditional Voluntary Interim History: patient has had enough of procedures the cooperate with ECT today but would like to hold off had 1 episode of vomiting Medication Compliance: Yes Review of Systems Reports confusion Psychiatric: Reports confusion Mental Status Exam Mental Status Exam Narrative: improving mood and judgment full range of affect with able to engaged with others more Patient Appearance: Appropriate Patient Orientation: Person, Place and Situation Level of Consciousness: Alert Patient Behavior: Cooperative Mood Description: Depressed and Flat Affect Description: Blunted and Flat Patient Cognition Impaired: Yes Ability to Follow Directions: Good Speech Pattern: Spontaneous Speech Hallucinations: None Delusions: Not Present Thought Process: Slowed Thinking Thought Content: positive for [place] and positive for Circumstantial Judgement: Fair Diagnostics Vital Signs (24Hr): Vital Signs - 24 hr 10/23/20 12:42 10/23/20 12:57 10/23/20 13:12 Temperature 98.4 F 98.7 F Pulse Rate 72 66 72 Respiratory Rate 17 16 18 Blood Pressure 90/58 L 123/77 134/76 Pulse Oximetry 95 94 98 10/23/20 14:25 10/23/20 19:40 10/24/20 05:45 Temperature 98.2 F 97.9 F Pulse Rate 76 91 87 Respiratory Rate 16 Blood Pressure 105/65 122/76 124/59 L Pulse Oximetry 98 10/24/20 06:33 10/24/20 06:38 10/24/20 07:48 Temperature 97.9 F 98.7 F 98.4 F Pulse Rate 87 94 76 Respiratory Rate 16 22 H 16 Blood Pressure 124/59 L 122/93 H 155/95 H Pulse Oximetry 96 96 98 10/24/20 07:53 10/24/20 07:58 10/24/20 08:03 Temperature Pulse Rate 88 85 90 Respiratory Rate 17 17 17 Blood Pressure 150/95 H 151/95 H 146/99 H Pulse Oximetry 95 100 99 10/24/20 08:18 10/24/20 08:43 10/24/20 10:48 Temperature 97.8 F 97.4 F Pulse Rate 85 79 82 Respiratory Rate 18 Blood Pressure 132/85 116/69 100/52 L Pulse Oximetry 100 96 Body Mass Index 24.7 Labs Results: 10/24/20 13:07 10/24/20 13:07 Imaging Radiology Impressions: ITS Impressions Chest X-Ray 10/10/20 00:00 IMPRESSION: Low lung volume. Faint linear opacity in the left midlung may be atelectasis. Medications Medications Current Medications Generic Name Dose Route Start Last Admin Trade Name Freq PRN Reason Stop Dose Admin Acetaminophen 650 mg 10/09/20 19:36 Acetaminophen Supp 650 Mg Supp.Rect NE Q6H PRN Pain, Mild (Pain Scale 1-3) Acetaminophen 650 mg 10/09/20 19:37 Acetaminophen 325 Mg Tablet PO Q6H PRN Headache/Pain Mild Scale (1-3) Al Hydroxide/Mg Hydroxide 30 ml 10/09/20 19:37 Magnesium Hydrox/Alum Hydrox 30 Ml Oral.Susp PO Q6H PRN Heartburn/Nausea Apixaban 5 mg 10/09/20 21:00 10/20/20 20:17 Apixaban 5 Mg Tablet PO 5 mg BID ROMMEL Administration Atorvastatin Calcium 80 mg 10/09/20 21:00 10/23/20 20:56 Atorvastatin Calcium 80 Mg Tablet PO 80 mg BEDTIME ROMMEL Administration Docusate Sodium 100 mg 10/09/20 21:00 10/24/20 09:00 Docusate Sodium 100 Mg Capsule PO 100 mg BID ROMMEL Administration Duloxetine HCl 20 mg 10/23/20 09:00 10/24/20 09:00 Duloxetine Hcl 20 Mg Capsule. PO 20 mg DAILY ROMMEL Administration Ferrous Sulfate 324 mg 10/10/20 09:00 10/24/20 08:59 Ferrous Sulfate 324 Mg Tablet. PO 324 mg DAILY ROMMEL Administration Finasteride 5 mg 10/10/20 09:00 10/24/20 09:00 Finasteride 5 Mg Tablet PO 5 mg DAILY ROMMEL Administration Lorazepam 0.5 mg 10/15/20 09:00 10/24/20 09:01 Lorazepam 0.5 Mg Tablet PO 0.5 mg TID ROMMEL Administration Magnesium Hydroxide 30 ml 10/09/20 19:37 Milk Of Magnesia 30 Ml Oral.Susp PO DAILY PRN Constipation Olanzapine 10 mg 10/18/20 21:00 10/23/20 20:56 Olanzapine 10 Mg Tablet PO 10 mg BEDTIME ROMMEL Administration Olanzapine 2.5 mg 10/24/20 09:35 Olanzapine 2.5 Mg Tablet PO BID PRN Anxiety Omeprazole 40 mg 10/23/20 16:30 10/24/20 08:59 Omeprazole 40 Mg Capsule.Dr PO 40 mg BID@9955,7011 ROMMEL Administration Polyethylene Glycol 17 gm 10/10/20 09:00 10/24/20 09:39 Polyethylene Glycol 3350 17 Gm Powd.Pack PO 17 gm DAILY ROMMEL Administration Vortioxetine 5 mg 10/24/20 09:00 10/24/20 09:40 Vortioxetine Hydrobromide 5 Mg Tablet PO 5 mg DAILY ROMMEL Administration Allergies Allergies Allergy/AdvReac Type Severity Reaction Status Date / Time No Known Allergies Allergy Verified 10/01/20 08:19 [No Known Allergies*] Assessment & Plan Assessment & Plan (1) Major depressive disorder, recurrent, severe with psychotic features: Status: Acute Code(s): F33.3 - Major depressive disorder, recurrent, severe with psychotic symptoms Assessment and Plan: hold off on ECT for now re-evaluate (2) Anemia: Status: Acute Code(s): D64.9 - Anemia, unspecified Assessment and Plan: monitor physical health (3) Physical deconditioning: Status: Acute Code(s): R53.81 - Other malaise Greater than 50% of the session was spent on counseling and/or coordination of care
[2020-10-24 13:13] LABS: MANUAL DIFF FLAG NO
[2020-10-24 13:20] LABS: Basophils Percent Auto 0.3 % (0-2); Eosinophils Absolute Auto 0.1 X10*3/uL (0.0-0.4); Eosinophils Percent Auto 1.4 % (0-4); Hematocrit 32.5 % (42-52); Hemoglobin 10.7 g/dl (14.0-18.0); Imm Gran Abs Auto 0.02 X10*3/uL (0.00-0.03); Imm Gran Pct Auto 0.3 % (0.0-0.4); Lymphocytes Absolute Auto 1.1 X10*3/uL (1.2-4.9); Lymphocytes Percent Auto 18.4 % (20-40); Mean Corpuscular HGB Conc 32.9 g/dl (31.0-36.0); Mean Corpuscular Hemoglobin 31.1 pg (27.0-33.0); Mean Corpuscular Volume 94.5 fL (80-98); Mean Platelet Volume 8.5 fL (9.4-12.4); Monocytes Absolute Auto 0.8 X10*3/uL (0.1-1.2); Monocytes Percent Auto 12.9 % (2-11); Neutrophils Absolute Auto 3.9 X10*3/uL (2.0-8.3); Neutrophils Percent Auto 66.7 % (45-73); Platelet Count 271 X10*3/uL (160-400); Red Blood Count 3.44 X10*6/uL (4.60-5.80); Red Cell Distribution Width 13.4 % (11.0-16.0); White Blood Count 5.8 X10*3/uL (4.8-10.8)
[2020-10-24 13:40] LABS: Anion Gap 10 (12-20); Blood Urea Nitrogen 14 mg/dL (9-16); Calcium 8.3 mg/dL (8.4-10.2); Carbon Dioxide 27 mmol/L (22-29); Chloride 109 mmol/L (96-108); Creatinine Clr Calc Pharmacy 71.7; Estimated Glomerular Filt Rate > 60; Glucose Random 108 mg/dL (60-115); Sodium 142 mmol/L (135-145)
--- NOTE | 2020-10-24 14:05 | HO.POSTANES ---
Post Anesthesia Evaluation Post Anesthesia Evaluation Vital Signs: Vital Signs Temp Pulse Resp BP Pulse Ox 10/24/20 10:48 82 100/52 L 10/24/20 08:43 97.4 F 79 116/69 96 10/24/20 08:18 97.8 F 85 18 132/85 100 10/24/20 08:03 90 17 146/99 H 99 10/24/20 07:58 85 17 151/95 H 100 10/24/20 07:53 88 17 150/95 H 95 10/24/20 07:48 98.4 F 76 16 155/95 H 98 10/24/20 06:38 98.7 F 94 22 H 122/93 H 96 10/24/20 06:33 97.9 F 87 16 124/59 L 96 10/24/20 05:45 97.9 F 87 16 124/59 L 98 Anesthesia: Monitored Mental Status: Awake Pain Control: Satisfactory Nausea/Vomiting: None Hydration: Adequate Anesthesia-Related Issues: No Anes. Related Issues
[2020-10-24] MEDS: Atorvastatin Calcium 80 MG TABLET PO (21:55)
[2020-10-24] MEDS: OLANZapine 10 MG TABLET PO (21:56)
[2020-10-25 06:10] VITALS: BP 126/61; PULSE 78; RESP 16; TEMP 36.7; O2SAT 97
[2020-10-25 07:00] VITALS: BMI 24.1
[2020-10-25 08:00] VITALS: BP 103/91; PULSE 91
[2020-10-25] MEDS: Finasteride 5 MG TABLET PO (08:20)
[2020-10-25] MEDS: Ferrous Sulfate 324 MG TABLET.DR PO (08:20)
[2020-10-25] MEDS: LORazepam 0.5 MG TABLET PO ×3 (08:20→20:36)
[2020-10-25] MEDS: Omeprazole 40 MG CAPSULE.DR PO ×2 (08:20→16:52)
[2020-10-25] MEDS: polyethylene glycoL 3350 17 GM POWD.PACK PO (08:20)
[2020-10-25] MEDS: Docusate Sodium 100 MG CAPSULE PO ×2 (08:20→20:36)
[2020-10-25] MEDS: DULoxetine HCl 20 MG CAPSULE.DR PO (08:20)
[2020-10-25] MEDS: Vortioxetine Hydrobromide 5 MG TABLET PO (10:24)
[2020-10-25 16:00] VITALS: BP 96/52; PULSE 81
[2020-10-25 18:00] VITALS: BP 103/63; PULSE 84; TEMP 36.4
[2020-10-25] MEDS: OLANZapine 10 MG TABLET PO (20:36)
[2020-10-25] MEDS: Atorvastatin Calcium 80 MG TABLET PO (20:36)
--- NOTE | 2020-10-25 21:30 | HO.PSYCHPN ---
Subjective Subjective Date of Service: 10/25/20 Reason For Visit: Major Depressive disorder Subjective Notes: Conditional Voluntary Interim History: patient with gradual improvement [place] affect ambulation improved Medication Compliance: Yes Side effects from medications: No Attending Groups: Intermittent Review of Systems Reports confusion Psychiatric: Reports confusion Mental Status Exam Mental Status Exam Narrative: improving mood and judgment full range of affect with able to engaged with others more Patient Appearance: Appropriate Patient Orientation: Person, Place and Situation Level of Consciousness: Alert Patient Behavior: Cooperative Mood Description: Depressed and Flat Affect Description: Blunted and Flat Patient Cognition Impaired: Yes Ability to Follow Directions: Good Speech Pattern: Spontaneous Speech Hallucinations: None Delusions: Not Present Thought Process: Slowed Thinking Thought Content: positive for [place], negative for Suicidal Ideation and negative for Homicidal Ideation Depressive Symptoms: Increased Anxiety, Diff. Making Decisions and Loss of Int. in Activity Judgement and Insight: judgment improving Diagnostics Vital Signs (24Hr): Vital Signs - 24 hr 10/25/20 06:10 10/25/20 08:00 10/25/20 16:00 Temperature 98.1 F Pulse Rate 78 91 81 Respiratory Rate 16 Blood Pressure 126/61 103/91 H 96/52 L Pulse Oximetry 97 10/25/20 18:00 Temperature 97.6 F Pulse Rate 84 Respiratory Rate Blood Pressure 103/63 Pulse Oximetry Body Mass Index 24.1 Labs Results: 10/24/20 13:07 10/24/20 13:07 Labs: Laboratory Results - last 48 hr 10/24/20 10/24/20 13:07 13:07 WBC 5.8 RBC 3.44 L Hgb 10.7 L Hct 32.5 L MCV 94.5 MCH 31.1 MCHC 32.9 RDW 13.4 Plt Count 271 MPV 8.5 L Immature Gran % (Auto) 0.3 Neut % (Auto) 66.7 Lymph % (Auto) 18.4 L [place] % (Auto) 12.9 H Eos % (Auto) 1.4 Baso % (Auto) 0.3 Lymph # (Auto) 1.1 L [place] # (Auto) 0.8 Eos # (Auto) 0.1 Baso # (Auto) 0.0 Abs Immat Gran (auto) 0.02 Absolute Neuts (auto) 3.9 Absolute Nucleated RBC 0.000 Nucleated RBC % (auto) 0.0 Sodium 142 Potassium 4.0 Chloride 109 H Carbon Dioxide 27 Anion Gap 10 L BUN 14 Creatinine 0.89 Estim Creat Clear Calc 71.7 Estimated GFR > 60 Random Glucose 108 Calcium 8.3 L D Imaging Radiology Impressions: ITS Impressions Chest X-Ray 10/10/20 00:00 IMPRESSION: Low lung volume. Faint linear opacity in the left midlung may be atelectasis. Medications Medications Current Medications Generic Name Dose Route Start Last Admin Trade Name Freq PRN Reason Stop Dose Admin Acetaminophen 650 mg 10/09/20 19:36 Acetaminophen Supp 650 Mg Supp.Rect [place] Q6H PRN Pain, Mild (Pain Scale 1-3) Acetaminophen 650 mg 10/09/20 19:37 Acetaminophen 325 Mg Tablet PO Q6H PRN Headache/Pain Mild Scale (1-3) Al Hydroxide/Mg Hydroxide 30 ml 10/09/20 19:37 Magnesium Hydrox/Alum Hydrox 30 Ml Oral.Susp PO Q6H PRN Heartburn/Nausea Apixaban 5 mg 10/09/20 21:00 10/20/20 20:17 Apixaban 5 Mg Tablet PO 5 mg BID ROMMEL Administration Atorvastatin Calcium 80 mg 10/09/20 21:00 10/25/20 20:36 Atorvastatin Calcium 80 Mg Tablet PO 80 mg BEDTIME ROMMEL Administration Docusate Sodium 100 mg 10/09/20 21:00 10/25/20 20:36 Docusate Sodium 100 Mg Capsule PO 100 mg BID ROMMEL Administration Duloxetine HCl 20 mg 10/23/20 09:00 10/25/20 08:20 Duloxetine Hcl 20 Mg Capsule. PO 20 mg DAILY ROMMEL Administration Ferrous Sulfate 324 mg 10/10/20 09:00 10/25/20 08:20 Ferrous Sulfate 324 Mg Tablet. PO 324 mg DAILY ROMMEL Administration Finasteride 5 mg 10/10/20 09:00 10/25/20 08:20 Finasteride 5 Mg Tablet PO 5 mg DAILY ROMMEL Administration Lorazepam 0.5 mg 10/15/20 09:00 10/25/20 20:36 Lorazepam 0.5 Mg Tablet PO 0.5 mg TID ROMMEL Administration Magnesium Hydroxide 30 ml 10/09/20 19:37 Milk Of Magnesia 30 Ml Oral.Susp PO DAILY PRN Constipation Olanzapine 10 mg 10/18/20 21:00 10/25/20 20:36 Olanzapine 10 Mg Tablet PO 10 mg BEDTIME ROMMEL Administration Olanzapine 2.5 mg 10/24/20 09:35 Olanzapine 2.5 Mg Tablet PO BID PRN Anxiety Omeprazole 40 mg 10/23/20 16:30 10/25/20 16:52 Omeprazole 40 Mg Capsule. PO 40 mg BID@0630,1630 ROMMEL Administration Polyethylene Glycol 17 gm 10/10/20 09:00 10/25/20 08:20 Polyethylene Glycol 3350 17 Gm Powd.Pack PO 17 gm DAILY ROMMEL Administration Vortioxetine 5 mg 10/25/20 10:30 10/25/20 10:24 Vortioxetine Hydrobromide 5 Mg Tablet PO 5 mg DAILY ROMMEL Administration Allergies Allergies Allergy/AdvReac Type Severity Reaction Status Date / Time No Known Allergies Allergy Verified 10/01/20 08:19 [No Known Allergies*] Assessment & Plan Assessment & Plan (1) Major depressive disorder, recurrent, severe with psychotic features: Status: Acute Code(s): F33.3 - Major depressive disorder, recurrent, severe with psychotic symptoms (2) Physical deconditioning: Status: Acute Code(s): R53.81 - Other malaise Assessment and Plan: patient improved improved balance and gait. No orthostatics noted for this evening. Patient courage to take sufficient fluids. Trintellix started. Patient has had a lot of recent medical procedure will hold off on ECT for tomorrow and resume in 3 days it depending on mood question discharge next week with outpatient ECT Greater than 50% of the session was spent on counseling and/or coordination of care Patient educated on: diagnosis, medication risk/benefits, ECT and medical condition Informed Consent: further education needed Reason for contiued inpatient stay Substantial Risk for: rapid decompensation and med/psych decompensation
[2020-10-26 06:55] VITALS: BP 106/54; PULSE 79; RESP 18; TEMP 36.9; O2SAT 95
[2020-10-26] MEDS: Omeprazole 40 MG CAPSULE.DR PO ×2 (09:11→15:00)
[2020-10-26] MEDS: Finasteride 5 MG TABLET PO (09:11)
[2020-10-26] MEDS: DULoxetine HCl 20 MG CAPSULE.DR PO (09:11)
[2020-10-26] MEDS: Vortioxetine Hydrobromide 5 MG TABLET PO (09:11)
[2020-10-26] MEDS: Ferrous Sulfate 324 MG TABLET.DR PO (09:11)
[2020-10-26] MEDS: Docusate Sodium 100 MG CAPSULE PO ×2 (09:11→20:16)
[2020-10-26] MEDS: LORazepam 0.5 MG TABLET PO ×3 (09:11→20:16)
[2020-10-26] MEDS: polyethylene glycoL 3350 17 GM POWD.PACK PO (09:12)
[2020-10-26 13:51] VITALS: BP 106/54; PULSE 79; O2SAT 95
[2020-10-26 16:00] VITALS: BP 121/60; PULSE 92
[2020-10-26 18:00] VITALS: TEMP 37
[2020-10-26] MEDS: OLANZapine 10 MG TABLET PO (20:16)
[2020-10-26] MEDS: Atorvastatin Calcium 80 MG TABLET PO (20:16)
--- NOTE | 2020-10-26 21:50 | HO.PSYCHPN ---
Subjective Subjective Date of Service: 10/26/20 Reason For Visit: Major Depressive disorder Subjective Notes: Conditional Voluntary Interim History: patient generally improving improve gait some episodes of vomiting question related to Trintellix increased alertness and activity Medication Compliance: Yes Side effects from medications: Yes Mental Status Exam Mental Status Exam Narrative: improving mood and judgment full range of affect with able to engaged with others more Patient Appearance: Appropriate Patient Orientation: Person, Place and Situation Level of Consciousness: Alert Patient Behavior: Cooperative Mood Description: Depressed and Flat Affect Description: Blunted and Flat Patient Cognition Impaired: Yes Ability to Follow Directions: Good Speech Pattern: Spontaneous Speech Hallucinations: None Delusions: Not Present Thought Process: Slowed Thinking Thought Content: positive for [place], negative for Suicidal Ideation and negative for Homicidal Ideation Depressive Symptoms: Increased Anxiety, Diff. Making Decisions and Loss of Int. in Activity Judgement: Good Judgement and Insight: judgment improving Diagnostics Vital Signs (24Hr): Vital Signs - 24 hr 10/26/20 06:55 10/26/20 13:51 10/26/20 16:00 Temperature 98.4 F Pulse Rate 79 79 92 Respiratory Rate 18 Blood Pressure 106/54 L 106/54 L 121/60 Pulse Oximetry 95 95 10/26/20 18:00 Temperature 98.6 F Pulse Rate Respiratory Rate Blood Pressure Pulse Oximetry Body Mass Index 24.1 Labs Results: 10/24/20 13:07 10/24/20 13:07 Imaging Radiology Impressions: ITS Impressions Chest X-Ray 10/10/20 00:00 IMPRESSION: Low lung volume. Faint linear opacity in the left midlung may be atelectasis. Medications Medications Current Medications Generic Name Dose Route Start Last Admin Trade Name Freq PRN Reason Stop Dose Admin Acetaminophen 650 mg 10/09/20 19:36 Acetaminophen Supp 650 Mg Supp.Rect [place] Q6H PRN Pain, Mild (Pain Scale 1-3) Acetaminophen 650 mg 10/09/20 19:37 Acetaminophen 325 Mg Tablet PO Q6H PRN Headache/Pain Mild Scale (1-3) Al Hydroxide/Mg Hydroxide 30 ml 10/09/20 19:37 Magnesium Hydrox/Alum Hydrox 30 Ml Oral.Susp PO Q6H PRN Heartburn/Nausea Apixaban 5 mg 10/09/20 21:00 10/20/20 20:17 Apixaban 5 Mg Tablet PO 5 mg BID ROMMEL Administration Atorvastatin Calcium 80 mg 10/09/20 21:00 10/26/20 20:16 Atorvastatin Calcium 80 Mg Tablet PO 80 mg BEDTIME ROMMEL Administration Docusate Sodium 100 mg 10/09/20 21:00 10/26/20 20:16 Docusate Sodium 100 Mg Capsule PO 100 mg BID ROMMEL Administration Duloxetine HCl 20 mg 10/23/20 09:00 10/26/20 09:11 Duloxetine Hcl 20 Mg Capsule. PO 20 mg DAILY ROMMEL Administration Ferrous Sulfate 324 mg 10/10/20 09:00 10/26/20 09:11 Ferrous Sulfate 324 Mg Tablet. PO 324 mg DAILY ROMMEL Administration Finasteride 5 mg 10/10/20 09:00 10/26/20 09:11 Finasteride 5 Mg Tablet PO 5 mg DAILY ROMMEL Administration Lorazepam 0.5 mg 10/15/20 09:00 10/26/20 20:16 Lorazepam 0.5 Mg Tablet PO 0.5 mg TID ROMMEL Administration Magnesium Hydroxide 30 ml 10/09/20 19:37 Milk Of Magnesia 30 Ml Oral.Susp PO DAILY PRN Constipation Olanzapine 10 mg 10/18/20 21:00 10/26/20 20:16 Olanzapine 10 Mg Tablet PO 10 mg BEDTIME ROMMEL Administration Olanzapine 2.5 mg 10/24/20 09:35 Olanzapine 2.5 Mg Tablet PO BID PRN Anxiety Omeprazole 40 mg 10/23/20 16:30 10/26/20 15:00 Omeprazole 40 Mg Capsule. PO 40 mg BID@0630,1630 ROMMEL Administration Polyethylene Glycol 17 gm 10/10/20 09:00 10/26/20 09:12 Polyethylene Glycol 3350 17 Gm Powd.Pack PO 17 gm DAILY ROMMEL Administration Vortioxetine 5 mg 10/25/20 10:30 10/26/20 09:11 Vortioxetine Hydrobromide 5 Mg Tablet PO 5 mg DAILY ROMMEL Administration Allergies Allergies Allergy/AdvReac Type Severity Reaction Status Date / Time No Known Allergies Allergy Verified 10/01/20 08:19 [No Known Allergies*] Assessment & Plan Assessment & Plan (1) Major depressive disorder, recurrent, severe with psychotic features: Status: Acute Code(s): F33.3 - Major depressive disorder, recurrent, severe with psychotic symptoms Assessment and Plan: intermittent ECT. Trintellix secondary to nausea (2) Physical deconditioning: Status: Acute Code(s): R53.81 - Other malaise (3) GERD (gastroesophageal reflux disease): Status: Acute Code(s): K21.9 - Gastro-esophageal reflux disease without esophagitis Greater than 50% of the session was spent on counseling and/or coordination of care
[2020-10-27] MEDS: Omeprazole 40 MG CAPSULE.DR PO ×2 (06:02→17:09)
[2020-10-27 06:40] VITALS: BP 107/22; PULSE 73; RESP 16; TEMP 36.8; O2SAT 96
[2020-10-27] MEDS: Docusate Sodium 100 MG CAPSULE PO ×2 (09:06→20:44)
[2020-10-27] MEDS: Ferrous Sulfate 324 MG TABLET.DR PO (09:06)
[2020-10-27] MEDS: DULoxetine HCl 20 MG CAPSULE.DR PO (09:06)
[2020-10-27] MEDS: polyethylene glycoL 3350 17 GM POWD.PACK PO (09:06)
[2020-10-27] MEDS: Finasteride 5 MG TABLET PO (09:06)
[2020-10-27] MEDS: Vortioxetine Hydrobromide 5 MG TABLET PO (09:06)
[2020-10-27] MEDS: LORazepam 0.5 MG TABLET PO ×3 (09:06→20:44)
--- NOTE | 2020-10-27 14:19 | P.PNPSI_ITS ---
Subjective Subjective Date of Service: 10/27/20 Reason For Visit: Major Depressive disorder Interim History: Reviewed nursing notes. Pt continues 1:1 due to fall risk and lack of awareness. Pt reports mood is okay. Per nursing, pt sleeping through the night and taking medications as prescribed. Eliquis currently on hold. Pt denies SI/HI. No behavioral concerns. Review of Systems Constitutional: Reports daytime sleepiness, Reports fatigue, Reports lethargy, Reports poor appetite and Reports weight loss Gastrointestinal: Reports constipation and Reports other (Guiac +) Genitourinary: Reports urinary hesitancy Reports confusion Psychiatric: Reports confusion, Reports depression, Reports difficulty concentrating, Reports anhedonia and Reports other Endocrine: Reports fatigue Mental Status Exam Mental Status Exam Patient Appearance: Appropriate (ambilating with walker, in NAD) Patient Orientation: Person, Place and Situation Level of Consciousness: Alert Patient Behavior: Cooperative and Fatigued Behavior Comments: Mood Description: Calm ( okay ) Affect Description: Calm (restricted in range but congruent with reported mood) Patient Cognition Impaired: Yes Ability to Follow Directions: Good Speech Pattern: Clear, Spontaneous Speech (minimally spontaneous) and Soft- Spoken Memory Description: Remote Impaired and Immediate Impaired Hallucinations: None Delusions: Not Present Thought Process: Linear Thought Content: positive for [place] of Content Abnormal Motor Activity Signs and Symptoms: Psychomotor Retardation Judgement: Poor Diagnostics Vital Signs (24Hr): Vital Signs - 24 hr 10/26/20 16:00 10/26/20 18:00 10/27/20 06:40 Temperature 98.6 F 98.2 F Pulse Rate 92 73 Respiratory Rate 16 Blood Pressure 121/60 107/22 L Pulse Oximetry 96 Body Mass Index 24.1 Labs Results: 10/24/20 13:07 10/24/20 13:07 Imaging Radiology Impressions: ITS Impressions Chest X-Ray 10/10/20 00:00 IMPRESSION: Low lung volume. Faint linear opacity in the left midlung may be atelectasis. Medications Medications Current Medications Generic Name Dose Route Start Last Admin Trade Name Freq PRN Reason Stop Dose Admin Acetaminophen 650 mg 10/09/20 19:36 Acetaminophen Supp 650 Mg Supp.Rect [place] Q6H PRN Pain, Mild (Pain Scale 1-3) Acetaminophen 650 mg 10/09/20 19:37 Acetaminophen 325 Mg Tablet PO Q6H PRN Headache/Pain Mild Scale (1-3) Al Hydroxide/Mg Hydroxide 30 ml 10/09/20 19:37 Magnesium Hydrox/Alum Hydrox 30 Ml Oral.Susp PO Q6H PRN Heartburn/Nausea Apixaban 5 mg 10/09/20 21:00 10/20/20 20:17 Apixaban 5 Mg Tablet PO 5 mg BID ROMMEL Administration Atorvastatin Calcium 80 mg 10/09/20 21:00 10/26/20 20:16 Atorvastatin Calcium 80 Mg Tablet PO 80 mg BEDTIME ROMMEL Administration Docusate Sodium 100 mg 10/09/20 21:00 10/27/20 09:06 Docusate Sodium 100 Mg Capsule PO 100 mg BID ROMMEL Administration Duloxetine HCl 20 mg 10/23/20 09:00 10/27/20 09:06 Duloxetine Hcl 20 Mg Capsule. PO 20 mg DAILY ROMMEL Administration Ferrous Sulfate 324 mg 10/10/20 09:00 10/27/20 09:06 Ferrous Sulfate 324 Mg Tablet. PO 324 mg DAILY ROMMEL Administration Finasteride 5 mg 10/10/20 09:00 10/27/20 09:06 Finasteride 5 Mg Tablet PO 5 mg DAILY ROMMEL Administration Lorazepam 0.5 mg 10/15/20 09:00 10/27/20 14:15 Lorazepam 0.5 Mg Tablet PO 0.5 mg TID ROMMEL Administration Magnesium Hydroxide 30 ml 10/09/20 19:37 Milk Of Magnesia 30 Ml Oral.Susp PO DAILY PRN Constipation Olanzapine 10 mg 10/18/20 21:00 10/26/20 20:16 Olanzapine 10 Mg Tablet PO 10 mg BEDTIME ROMMEL Administration Olanzapine 2.5 mg 10/24/20 09:35 Olanzapine 2.5 Mg Tablet PO BID PRN Anxiety Omeprazole 40 mg 10/23/20 16:30 10/27/20 06:02 Omeprazole 40 Mg Capsule. PO 40 mg BID@0630,1630 ROMMEL Administration Polyethylene Glycol 17 gm 10/10/20 09:00 10/27/20 09:06 Polyethylene Glycol 3350 17 Gm Powd.Pack PO 17 gm DAILY ROMMEL Administration Vortioxetine 5 mg 10/25/20 10:30 10/27/20 09:06 Vortioxetine Hydrobromide 5 Mg Tablet PO 5 mg DAILY ROMMEL Administration Allergies Allergies Allergy/AdvReac Type Severity Reaction Status Date / Time No Known Allergies Allergy Verified 10/01/20 08:19 [No Known Allergies*] Assessment & Plan Assessment & Plan (1) Major depressive disorder, recurrent, severe with psychotic features: Status: Acute Code(s): F33.3 - Major depressive disorder, recurrent, severe with psychotic symptoms Assessment and Plan: intermittent ECT. Trintellix secondary to nausea (2) Physical deconditioning: Status: Acute Code(s): R53.81 - Other malaise (3) GERD (gastroesophageal reflux disease): Status: Acute Code(s): K21.9 - Gastro-esophageal reflux disease without esophagitis Greater than 50% of the session was spent on counseling and/or coordination of care
[2020-10-27 16:00] VITALS: BP 143/71; PULSE 71
[2020-10-27 17:34] VITALS: BP 122/59; PULSE 79; TEMP 36.4
[2020-10-27 20:13] VITALS: BP 100/55; PULSE 75
[2020-10-27] MEDS: OLANZapine 10 MG TABLET PO (20:44)
[2020-10-27] MEDS: Atorvastatin Calcium 80 MG TABLET PO (20:44)
[2020-10-27] MEDS: OLANZapine 2.5 MG TABLET PO (23:07)
[2020-10-28] MEDS: OLANZapine 2.5 MG TABLET PO (04:21)
[2020-10-28 06:10] VITALS: BP 100/52; PULSE 81; RESP 16; TEMP 36.8; O2SAT 96
[2020-10-28] MEDS: Omeprazole 40 MG CAPSULE.DR PO ×2 (06:21→16:28)
[2020-10-28 07:57] LABS: MANUAL DIFF FLAG NO
[2020-10-28 08:13] LABS: Basophils Percent Auto 0.4 % (0-2); Eosinophils Absolute Auto 0.1 X10*3/uL (0.0-0.4); Eosinophils Percent Auto 2.8 % (0-4); Hematocrit 34.9 % (42-52); Hemoglobin 11.4 g/dl (14.0-18.0); Imm Gran Abs Auto 0.02 X10*3/uL (0.00-0.03); Imm Gran Pct Auto 0.4 % (0.0-0.4); Lymphocytes Absolute Auto 0.8 X10*3/uL (1.2-4.9); Mean Corpuscular HGB Conc 32.7 g/dl (31.0-36.0); Mean Corpuscular Hemoglobin 31.3 pg (27.0-33.0); Mean Corpuscular Volume 95.9 fL (80-98); Monocytes Absolute Auto 0.5 X10*3/uL (0.1-1.2); Monocytes Percent Auto 10.7 % (2-11); Neutrophils Absolute Auto 3.2 X10*3/uL (2.0-8.3); Neutrophils Percent Auto 67.7 % (45-73); Platelet Count 288 X10*3/uL (160-400); Red Blood Count 3.64 X10*6/uL (4.60-5.80); Red Cell Distribution Width 13.7 % (11.0-16.0); White Blood Count 4.7 X10*3/uL (4.8-10.8)
[2020-10-28 08:19] LABS: Amylase 104 U/L (28-100)
[2020-10-28 08:28] LABS: Alanine Aminotransferase 38 U/L (0-40); Albumin Level 3.6 g/dL (3.5-5.0); Alkaline Phosphatase 145 U/L (39-117); Anion Gap 12 (12-20); Aspartate Amino Transferase 38 U/L (5-37); Bilirubin Total 0.7 mg/dL (0.0-1.0); Blood Urea Nitrogen 19 mg/dL (9-16); Calcium 8.9 mg/dL (8.4-10.2); Carbon Dioxide 28 mmol/L (22-29); Chloride 107 mmol/L (96-108); Creatinine Clr Calc Pharmacy 63.8; Estimated Glomerular Filt Rate > 60; Glucose Fasting 100 mg/dL (60-99); Lipase 70 U/L (8-78); Potassium 4.2 mmol/l (3.3-5.1); Sodium 143 mmol/L (135-145); Total Protein 6.2 g/dL (6.5-8.0)
[2020-10-28] MEDS: Ferrous Sulfate 324 MG TABLET.DR PO (08:33)
[2020-10-28] MEDS: LORazepam 0.5 MG TABLET PO ×3 (08:33→21:15)
[2020-10-28] MEDS: DULoxetine HCl 20 MG CAPSULE.DR PO (08:33)
[2020-10-28] MEDS: Docusate Sodium 100 MG CAPSULE PO ×2 (08:33→21:14)
[2020-10-28] MEDS: Finasteride 5 MG TABLET PO (08:33)
[2020-10-28 13:00] VITALS: BP 113/67; PULSE 88; RESP 18; TEMP 37.1; O2SAT 98
--- NOTE | 2020-10-28 13:41 | HO.PSYCHPN ---
Subjective Subjective Date of Service: 10/28/20 Reason For Visit: Major Depressive disorder Interim History: Reviewed nursing notes. Pt continues 1:1 due to fall risk and lack of awareness. Pt reports mood is not good referring to episodes of vomiting, he has been having yesterday and today. No blood seen in vomit. He reports burning sensation when he swallows food or medications. Per nursing, pt sleeping through the night and taking medications as prescribed. Eliquis currently on hold. Pt denies SI/HI. No behavioral concerns. GI consult ordered. Review of Systems Constitutional: Reports daytime sleepiness, Reports fatigue, Reports lethargy, Reports poor appetite and Reports weight loss Gastrointestinal: Reports constipation and Reports other (Guiac +) Genitourinary: Reports urinary hesitancy Reports confusion Psychiatric: Reports confusion, Reports depression, Reports difficulty concentrating, Reports anhedonia and Reports other Endocrine: Reports fatigue Mental Status Exam Mental Status Exam Narrative: improving mood and judgment full range of affect with able to engaged with others more Patient Appearance: Appropriate (ambilating with walker, in NAD) Patient Orientation: Person, Place and Situation Level of Consciousness: Alert Patient Behavior: Cooperative and Fatigued Behavior Comments: Mood Description: Calm ( okay ) Affect Description: Calm (restricted in range but congruent with reported mood) Patient Cognition Impaired: Yes Ability to Follow Directions: Good Speech Pattern: Clear, Spontaneous Speech (minimally spontaneous) and Soft-Spoken Memory Description: Remote Impaired and Immediate Impaired Diagnostics Vital Signs (24Hr): Vital Signs - 24 hr 10/27/20 16:00 10/27/20 17:34 10/27/20 20:13 Temperature 97.5 F Pulse Rate 71 79 75 Respiratory Rate Blood Pressure 143/71 H 122/59 L 100/55 L Pulse Oximetry 10/28/20 06:10 Temperature 98.2 F Pulse Rate 81 Respiratory Rate 16 Blood Pressure 100/52 L Pulse Oximetry 96 Body Mass Index 24.1 Labs Results: 10/28/20 07:36 10/28/20 07:36 Labs: Laboratory Results - last 48 hr 10/28/20 10/28/20 10/28/20 07:36 07:36 07:36 WBC RBC Hgb Hct MCV MCH MCHC RDW Plt Count MPV Immature Gran % (Auto) Neut % (Auto) Lymph % (Auto) [place] % (Auto) Eos % (Auto) Baso % (Auto) Lymph # (Auto) [place] # (Auto) Eos # (Auto) Baso # (Auto) Abs Immat Gran (auto) Absolute Neuts (auto) Absolute Nucleated RBC Nucleated RBC % (auto) Sodium 143 Potassium 4.2 Chloride 107 Carbon Dioxide 28 Anion Gap 12 BUN 19 H Creatinine 1.00 Estim Creat Clear Calc 63.8 Estimated GFR > 60 Fasting Glucose 100 H Calcium 8.9 D Total Bilirubin 0.7 AST 38 H D ALT 38 Alkaline Phosphatase 145 H D Total Protein 6.2 L Albumin 3.6 Amylase 104 H Lipase 70 10/28/20 07:36 WBC 4.7 L RBC 3.64 L Hgb 11.4 L Hct 34.9 L MCV 95.9 MCH 31.3 MCHC 32.7 RDW 13.7 Plt Count 288 MPV 9.0 L Immature Gran % (Auto) 0.4 Neut % (Auto) 67.7 Lymph % (Auto) 18.0 L [place] % (Auto) 10.7 Eos % (Auto) 2.8 Baso % (Auto) 0.4 Lymph # (Auto) 0.8 L [place] # (Auto) 0.5 Eos # (Auto) 0.1 Baso # (Auto) 0.0 Abs Immat Gran (auto) 0.02 Absolute Neuts (auto) 3.2 Absolute Nucleated RBC 0.000 Nucleated RBC % (auto) 0.0 Sodium Potassium Chloride Carbon Dioxide Anion Gap BUN Creatinine Estim Creat Clear Calc Estimated GFR Fasting Glucose Calcium Total Bilirubin AST ALT Alkaline Phosphatase Total Protein Albumin Amylase Lipase Imaging Radiology Impressions: ITS Impressions Chest X-Ray 10/10/20 00:00 IMPRESSION: Low lung volume. Faint linear opacity in the left midlung may be atelectasis. Medications Medications Current Medications Generic Name Dose Route Start Last Admin Trade Name Freq PRN Reason Stop Dose Admin Acetaminophen 650 mg 10/09/20 19:36 Acetaminophen Supp 650 Mg Supp.Rect [place] Q6H PRN Pain, Mild (Pain Scale 1-3) Acetaminophen 650 mg 10/09/20 19:37 Acetaminophen 325 Mg Tablet PO Q6H PRN Headache/Pain Mild Scale (1-3) Al Hydroxide/Mg Hydroxide 30 ml 10/09/20 19:37 Magnesium Hydrox/Alum Hydrox 30 Ml Oral.Susp PO Q6H PRN Heartburn/Nausea Apixaban 5 mg 10/09/20 21:00 10/20/20 20:17 Apixaban 5 Mg Tablet PO 5 mg BID ROMMEL Administration Atorvastatin Calcium 80 mg 10/09/20 21:00 10/27/20 20:44 Atorvastatin Calcium 80 Mg Tablet PO 80 mg BEDTIME ROMMEL Administration Docusate Sodium 100 mg 10/09/20 21:00 10/28/20 08:33 Docusate Sodium 100 Mg Capsule PO 100 mg BID ROMMEL Administration Duloxetine HCl 20 mg 10/23/20 09:00 10/28/20 08:33 Duloxetine Hcl 20 Mg Capsule. PO 20 mg DAILY ROMMEL Administration Ferrous Sulfate 324 mg 10/10/20 09:00 10/28/20 08:33 Ferrous Sulfate 324 Mg Tablet. PO 324 mg DAILY ROMMEL Administration Finasteride 5 mg 10/10/20 09:00 10/28/20 08:33 Finasteride 5 Mg Tablet PO 5 mg DAILY ROMMEL Administration Lorazepam 0.5 mg 10/15/20 09:00 10/28/20 08:33 Lorazepam 0.5 Mg Tablet PO 0.5 mg TID ROMMEL Administration Magnesium Hydroxide 30 ml 10/09/20 19:37 Milk Of Magnesia 30 Ml Oral.Susp PO DAILY PRN Constipation Olanzapine 10 mg 10/18/20 21:00 10/27/20 20:44 Olanzapine 10 Mg Tablet PO 10 mg BEDTIME ROMMEL Administration Olanzapine 2.5 mg 10/24/20 09:35 10/28/20 04:21 Olanzapine 2.5 Mg Tablet PO 2.5 mg BID PRN Administration Anxiety Omeprazole 40 mg 10/23/20 16:30 10/28/20 06:21 Omeprazole 40 Mg Capsule. PO 40 mg BID@0630,9840 ROMMEL Administration Ondansetron HCl 4 mg 10/27/20 19:54 10/28/20 08:41 Ondansetron Odt 4 Mg Tab.Rapdis TRANSLINGU 4 mg Q6H PRN Administration Vomiting Polyethylene Glycol 17 gm 10/10/20 09:00 10/28/20 08:33 Polyethylene Glycol 3350 17 Gm Powd.Pack PO 17 gm DAILY ROMMEL Administration Allergies Allergies Allergy/AdvReac Type Severity Reaction Status Date / Time No Known Allergies Allergy Verified 10/01/20 08:19 [No Known Allergies*] Assessment & Plan Assessment & Plan (1) Major depressive disorder, recurrent, severe with psychotic features: Status: Acute Code(s): F33.3 - Major depressive disorder, recurrent, severe with psychotic symptoms Assessment and Plan: intermittent ECT. Trintellix secondary to nausea (2) Physical deconditioning: Status: Acute Code(s): R53.81 - Other malaise (3) GERD (gastroesophageal reflux disease): Status: Acute Code(s): K21.9 - Gastro-esophageal reflux disease without esophagitis Greater than 50% of the session was spent on counseling and/or coordination of care
[2020-10-28 16:00] VITALS: BP 118/65; PULSE 116
[2020-10-28 18:00] VITALS: BP 102/59; PULSE 82; TEMP 36.9
[2020-10-28] MEDS: OLANZapine 10 MG TABLET PO (21:15)
[2020-10-28] MEDS: Atorvastatin Calcium 80 MG TABLET PO (21:15)
[2020-10-29] VITALS (12 sets, daily range): BP systolic 96–140; BP diastolic 53–92; PULSE 62–108; RESP 17–20; TEMP 36.5–37.2; O2SAT 95–98
--- NOTE | 2020-10-29 07:21 | HO.ANESPROP2 ---
[facility] Past Medical History Medical History Dementia Depression Diverticulitis of colon with perforation GERD (gastroesophageal reflux disease) HTN (hypertension) Hyperlipidemia Major depressive disorder, recurrent, severe with psychotic features Pulmonary embolism SVT (supraventricular tachycardia) Family History Family History Brother Blood clot in vein Other No history of cardiac disorder Surgical History Surgical History H/O hernia repair History of colostomy reversal Status post Paula's procedure Social History Social History Household Members: Other Housing: Assisted Living Facility Alcohol intake: former Smoking Status: Never smoker Second Hand Smoke Exposure: No Advance Directives Date on File: 07/27/20 service: Yes ([employer]) Current occupational status: retired Sexual orientation: Straight/Heterosexual Meds Allergies Allergy/AdvReac Type Severity Reaction Status Date / Time No Known Allergies Allergy Verified 10/01/20 08:19 [No Known Allergies*] Home Medications Medication Instructions Recorded Confirmed Type doxazosin 2 mg PO DAILY 07/26/20 10/07/20 History olanzapine 20 mg PO BEDTIME 07/26/20 10/07/20 History oxybutynin chloride 5 mg PO DAILY 07/26/20 10/07/20 History docusate sodium [Colace] 100 mg PO BID 09/13/20 10/07/20 History polyethylene glycol 3350 [Miralax] 17 g PO DAILY 09/13/20 10/07/20 History duloxetine [Cymbalta] 40 mg PO DAILY 10/07/20 10/07/20 History ferrous sulfate 325 mg PO DAILY 10/07/20 10/07/20 History finasteride 5 mg PO DAILY 10/07/20 10/07/20 History lorazepam 0.5 mg PO TID 10/07/20 10/07/20 History trazodone 50 mg PO BEDTIME 10/07/20 10/07/20 History Exam Exam Date and Time: October 29, 2020720 Height,Weight and Vital Signs: Height 5 ft 10.87 in Weight 78.3 kg Last Vital Signs Temp 97.7 F 10/29/20 06:46 Pulse 103 H 10/29/20 06:46 Resp 18 10/29/20 06:46 BP 131/76 10/29/20 06:46 Pulse Ox 97 10/29/20 06:46 Pertinent Lab Results Pertinent Lab Results: Laboratory Tests 10/11/20 10/14/20 10/14/20 08:25 15:58 15:58 WBC 4.4 L 4.0 L RBC 3.43 L 3.10 L Hgb 10.9 L 9.7 L Hct 32.4 L 28.9 L MCV 94.5 93.2 MCH 31.8 31.3 MCHC 33.6 33.6 RDW 13.2 13.3 Plt Count 147 L 169 MPV 8.7 L 8.8 L Immature Gran % (Auto) 0.5 H 0.2 Neut % (Auto) 69.5 71.1 Lymph % (Auto) 15.6 L 17.1 L [place] % (Auto) 14.2 H 10.4 Eos % (Auto) 0.2 1.0 Baso % (Auto) 0.0 0.2 Lymph # (Auto) 0.7 L 0.7 L [place] # (Auto) 0.6 0.4 Eos # (Auto) 0.0 0.0 Baso # (Auto) 0.0 0.0 Abs Immat Gran (auto) 0.02 0.01 Absolute Neuts (auto) 3.0 2.9 Absolute Nucleated RBC 0.000 0.000 Nucleated RBC % (auto) 0.0 0.0 Smear Tech's Comments VERIFIED VERIFIED Sodium 139 Potassium 3.4 Chloride 106 Carbon Dioxide 25 Anion Gap 11 L BUN 26 H Creatinine 0.73 Estim Creat Clear Calc 87.5 Estimated GFR > 60 Random Glucose 139 H Fasting Glucose Calcium 7.4 L D Total Bilirubin AST ALT Alkaline Phosphatase Total Protein Albumin Amylase Lipase Stool Occult Blood 10/15/20 10/16/20 10/16/20 07:28 09:56 09:56 WBC 4.8 3.6 L RBC 3.07 L 3.14 L Hgb 9.7 L 9.8 L Hct 28.8 L 29.5 L MCV 93.8 93.9 MCH 31.6 31.2 MCHC 33.7 33.2 RDW 13.2 13.3 Plt Count 192 198 MPV 8.9 L 8.7 L Immature Gran % (Auto) 0.4 0.6 H Neut % (Auto) 72.6 74.1 H Lymph % (Auto) 15.6 L 15.0 L [place] % (Auto) 10.2 8.1 Eos % (Auto) 1.0 1.9 Baso % (Auto) 0.2 0.3 Lymph # (Auto) 0.8 L 0.5 L [place] # (Auto) 0.5 0.3 Eos # (Auto) 0.1 0.1 Baso # (Auto) 0.0 0.0 Abs Immat Gran (auto) 0.02 0.02 Absolute Neuts (auto) 3.5 2.7 Absolute Nucleated RBC 0.000 0.000 Nucleated RBC % (auto) 0.0 0.0 Smear Tech's Comments VERIFIED Sodium 141 Potassium 3.5 Chloride 108 Carbon Dioxide 27 Anion Gap 10 L BUN 14 Creatinine 0.78 Estim Creat Clear Calc 81.8 Estimated GFR > 60 Random Glucose 132 H Fasting Glucose Calcium 7.7 L Total Bilirubin AST ALT Alkaline Phosphatase Total Protein Albumin Amylase Lipase Stool Occult Blood 10/16/20 10/17/20 10/17/20 Unknown 16:50 16:50 WBC 4.9 RBC 3.26 L Hgb 10.2 L Hct 30.9 L MCV 94.8 MCH 31.3 MCHC 33.0 RDW 13.2 Plt Count 230 MPV 9.4 Immature Gran % (Auto) 0.4 Neut % (Auto) 68.3 Lymph % (Auto) 15.5 L [place] % (Auto) 13.6 H Eos % (Auto) 2.0 Baso % (Auto) 0.2 Lymph # (Auto) 0.8 L [place] # (Auto) 0.7 Eos # (Auto) 0.1 Baso # (Auto) 0.0 Abs Immat Gran (auto) 0.02 Absolute Neuts (auto) 3.4 Absolute Nucleated RBC 0.000 Nucleated RBC % (auto) 0.0 Smear Tech's Comments Sodium 143 Potassium 3.7 Chloride 107 Carbon Dioxide 28 Anion Gap 12 BUN 18 H Creatinine 0.85 Estim Creat Clear Calc 75.1 Estimated GFR > 60 Random Glucose 117 H Fasting Glucose Calcium 7.8 L Total Bilirubin AST ALT Alkaline Phosphatase Total Protein Albumin Amylase Lipase Stool Occult Blood POS 10/19/20 10/19/20 10/19/20 15:49 15:49 19:17 WBC 4.3 L RBC 3.05 L Hgb 9.5 L Hct 29.0 L MCV 95.1 MCH 31.1 MCHC 32.8 RDW 13.4 Plt Count 236 MPV 8.6 L Immature Gran % (Auto) 0.5 H Neut % (Auto) 63.7 Lymph % (Auto) 19.2 L [place] % (Auto) 13.8 H Eos % (Auto) 2.6 Baso % (Auto) 0.2 Lymph # (Auto) 0.8 L [place] # (Auto) 0.6 Eos # (Auto) 0.1 Baso # (Auto) 0.0 Abs Immat Gran (auto) 0.02 Absolute Neuts (auto) 2.7 Absolute Nucleated RBC 0.000 Nucleated RBC % (auto) 0.0 Smear Tech's Comments Sodium 141 Potassium 3.7 Chloride 108 Carbon Dioxide 27 Anion Gap 10 L BUN 19 H Creatinine 0.91 Estim Creat Clear Calc 70.1 Estimated GFR > 60 Random Glucose 146 H Fasting Glucose Calcium 7.6 L Total Bilirubin AST ALT Alkaline Phosphatase Total Protein Albumin Amylase Lipase Stool Occult Blood POS 10/24/20 10/24/20 10/28/20 13:07 13:07 07:36 WBC 5.8 RBC 3.44 L Hgb 10.7 L Hct 32.5 L MCV 94.5 MCH 31.1 MCHC 32.9 RDW 13.4 Plt Count 271 MPV 8.5 L Immature Gran % (Auto) 0.3 Neut % (Auto) 66.7 Lymph % (Auto) 18.4 L [place] % (Auto) 12.9 H Eos % (Auto) 1.4 Baso % (Auto) 0.3 Lymph # (Auto) 1.1 L [place] # (Auto) 0.8 Eos # (Auto) 0.1 Baso # (Auto) 0.0 Abs Immat Gran (auto) 0.02 Absolute Neuts (auto) 3.9 Absolute Nucleated RBC 0.000 Nucleated RBC % (auto) 0.0 Smear Tech's Comments Sodium 142 143 Potassium 4.0 4.2 Chloride 109 H 107 Carbon Dioxide 27 28 Anion Gap 10 L 12 BUN 14 19 H Creatinine 0.89 1.00 Estim Creat Clear Calc 71.7 63.8 Estimated GFR > 60 > 60 Random Glucose 108 Fasting Glucose 100 H Calcium 8.3 L D 8.9 D Total Bilirubin 0.7 AST 38 H D ALT 38 Alkaline Phosphatase 145 H D Total Protein 6.2 L Albumin 3.6 Amylase Lipase Stool Occult Blood 10/28/20 10/28/20 10/28/20 07:36 07:36 07:36 WBC 4.7 L RBC 3.64 L Hgb 11.4 L Hct 34.9 L MCV 95.9 MCH 31.3 MCHC 32.7 RDW 13.7 Plt Count 288 MPV 9.0 L Immature Gran % (Auto) 0.4 Neut % (Auto) 67.7 Lymph % (Auto) 18.0 L [place] % (Auto) 10.7 Eos % (Auto) 2.8 Baso % (Auto) 0.4 Lymph # (Auto) 0.8 L [place] # (Auto) 0.5 Eos # (Auto) 0.1 Baso # (Auto) 0.0 Abs Immat Gran (auto) 0.02 Absolute Neuts (auto) 3.2 Absolute Nucleated RBC 0.000 Nucleated RBC % (auto) 0.0 Smear Tech's Comments Sodium Potassium Chloride Carbon Dioxide Anion Gap BUN Creatinine Estim Creat Clear Calc Estimated GFR Random Glucose Fasting Glucose Calcium Total Bilirubin AST ALT Alkaline Phosphatase Total Protein Albumin Amylase 104 H Lipase 70 Stool Occult Blood Airway Mallampati Class: II TM Dist: >3cm Neck ROM: Full Denture: Upper and Lower
--- NOTE | 2020-10-29 07:28 | HO.ECTPROC ---
ECT Procedure Note Diagnosis/Treatment Diagnosis: Major Depressive Disorder and Catatonia Previous ECT Date: 10/24/20 Current Treatment Number: 7 Treatment: Series Interval Clinical Notes: pt6 less depressed has been having nausea vomiting ECT Settings Device: THYMATRON DGx Electrode Placement: Right Unilateral Program/Pulse Width: 0.50 Energy Percent: 100 Seizure Duration By EEG (in seconds): 41 Medications Administration General Anesthetic: Etomidate (12) Muscle Relaxant: Succinylcholine (100) Ancillary Medications Anti-emetics: Zofran - Pre ECT Cardiovascular Medications: Labetolol (10 mg) Miscillaneous Medications: Propofol (30 mg post tx ) Airway Management Airway Management: Bag Mask Ventilation Treatment Recommendations No Changes Recommended: No change Pt Tolerated Procedure w/o Issue: Yes
--- NOTE | 2020-10-29 07:32 | HO.PSYCHPN ---
Subjective Subjective Date of Service: 10/29/20 Reason For Visit: Major Depressive disorder Subjective Notes: Conditional Voluntary Interim History: patient tolerated ECT has had repeated episodes of nausea and vomiting none today for the 1st time concern about relapse if discharged in this condition will clarify patient is stable enough for returning to rest home setting Medication Compliance: Yes Side effects from medications: Yes Mental Status Exam Mental Status Exam Narrative: improving mood and judgment full range of affect with able to engaged with others more Patient Appearance: Appropriate (ambilating with walker, in NAD) Patient Orientation: Person, Place and Situation Level of Consciousness: Alert Patient Behavior: Cooperative and Fatigued Behavior Comments: Mood Description: Calm ( okay ), Withdrawn and Flat Affect Description: Calm (restricted in range but congruent with reported mood) and Withdrawn Patient Cognition Impaired: Yes Ability to Follow Directions: Good Speech Pattern: Clear, Spontaneous Speech (minimally spontaneous) and Soft-Spoken Memory Description: Remote Impaired and Immediate Impaired Diagnostics Vital Signs (24Hr): Vital Signs - 24 hr 10/28/20 13:00 10/28/20 16:00 10/28/20 18:00 Temperature 98.8 F 98.5 F Pulse Rate 88 116 H 82 Respiratory Rate 18 Blood Pressure 113/67 118/65 102/59 L Pulse Oximetry 98 10/29/20 05:45 10/29/20 06:46 Temperature 98.1 F 97.7 F Pulse Rate 85 103 H Respiratory Rate 18 18 Blood Pressure 123/74 131/76 Pulse Oximetry 96 97 Body Mass Index 24.1 Labs Results: 10/28/20 07:36 10/28/20 07:36 Labs: Laboratory Results - last 48 hr 10/28/20 10/28/20 10/28/20 07:36 07:36 07:36 WBC RBC Hgb Hct MCV MCH MCHC RDW Plt Count MPV Immature Gran % (Auto) Neut % (Auto) Lymph % (Auto) [place] % (Auto) Eos % (Auto) Baso % (Auto) Lymph # (Auto) [place] # (Auto) Eos # (Auto) Baso # (Auto) Abs Immat Gran (auto) Absolute Neuts (auto) Absolute Nucleated RBC Nucleated RBC % (auto) Sodium 143 Potassium 4.2 Chloride 107 Carbon Dioxide 28 Anion Gap 12 BUN 19 H Creatinine 1.00 Estim Creat Clear Calc 63.8 Estimated GFR > 60 Fasting Glucose 100 H Calcium 8.9 D Total Bilirubin 0.7 AST 38 H D ALT 38 Alkaline Phosphatase 145 H D Total Protein 6.2 L Albumin 3.6 Amylase 104 H Lipase 70 10/28/20 07:36 WBC 4.7 L RBC 3.64 L Hgb 11.4 L Hct 34.9 L MCV 95.9 MCH 31.3 MCHC 32.7 RDW 13.7 Plt Count 288 MPV 9.0 L Immature Gran % (Auto) 0.4 Neut % (Auto) 67.7 Lymph % (Auto) 18.0 L [place] % (Auto) 10.7 Eos % (Auto) 2.8 Baso % (Auto) 0.4 Lymph # (Auto) 0.8 L [place] # (Auto) 0.5 Eos # (Auto) 0.1 Baso # (Auto) 0.0 Abs Immat Gran (auto) 0.02 Absolute Neuts (auto) 3.2 Absolute Nucleated RBC 0.000 Nucleated RBC % (auto) 0.0 Sodium Potassium Chloride Carbon Dioxide Anion Gap BUN Creatinine Estim Creat Clear Calc Estimated GFR Fasting Glucose Calcium Total Bilirubin AST ALT Alkaline Phosphatase Total Protein Albumin Amylase Lipase Imaging Radiology Impressions: ITS Impressions Chest X-Ray 10/10/20 00:00 IMPRESSION: Low lung volume. Faint linear opacity in the left midlung may be atelectasis. Medications Medications Current Medications Generic Name Dose Route Start Last Admin Trade Name Freq PRN Reason Stop Dose Admin Acetaminophen 650 mg 10/09/20 19:36 Acetaminophen Supp 650 Mg Supp.Rect NV Q6H PRN Pain, Mild (Pain Scale 1-3) Acetaminophen 650 mg 10/09/20 19:37 Acetaminophen 325 Mg Tablet PO Q6H PRN Headache/Pain Mild Scale (1-3) Al Hydroxide/Mg Hydroxide 30 ml 10/09/20 19:37 Magnesium Hydrox/Alum Hydrox 30 Ml Oral.Susp PO Q6H PRN Heartburn/Nausea Apixaban 5 mg 10/09/20 21:00 10/20/20 20:17 Apixaban 5 Mg Tablet PO 5 mg BID ROMMEL Administration Atorvastatin Calcium 80 mg 10/09/20 21:00 10/28/20 21:15 Atorvastatin Calcium 80 Mg Tablet PO 80 mg BEDTIME ROMMEL Administration Docusate Sodium 100 mg 10/09/20 21:00 10/28/20 21:14 Docusate Sodium 100 Mg Capsule PO 100 mg BID ROMMEL Administration Duloxetine HCl 20 mg 10/23/20 09:00 10/28/20 08:33 Duloxetine Hcl 20 Mg Capsule. PO 20 mg DAILY ROMMEL Administration Ferrous Sulfate 324 mg 10/10/20 09:00 10/28/20 08:33 Ferrous Sulfate 324 Mg Tablet. PO 324 mg DAILY ROMMEL Administration Finasteride 5 mg 10/10/20 09:00 10/28/20 08:33 Finasteride 5 Mg Tablet PO 5 mg DAILY ROMMEL Administration Lactated Ringer's 1,000 mls @ 100 mls/hr 10/29/20 07:30 Lr IVCONT .Q10H ROMMEL Lorazepam 0.5 mg 10/15/20 09:00 10/28/20 21:15 Lorazepam 0.5 Mg Tablet PO 0.5 mg TID ROMMEL Administration Magnesium Hydroxide 30 ml 10/09/20 19:37 Milk Of Magnesia 30 Ml Oral.Susp PO DAILY PRN Constipation Olanzapine 10 mg 10/18/20 21:00 10/28/20 21:15 Olanzapine 10 Mg Tablet PO 10 mg BEDTIME ROMMEL Administration Olanzapine 2.5 mg 10/24/20 09:35 10/28/20 04:21 Olanzapine 2.5 Mg Tablet PO 2.5 mg BID PRN Administration Anxiety Omeprazole 40 mg 10/23/20 16:30 10/28/20 16:28 Omeprazole 40 Mg Capsule. PO 40 mg BID@0630,1630 ROMMEL Administration Ondansetron HCl 4 mg 10/27/20 19:54 10/28/20 08:41 Ondansetron Odt 4 Mg Tab.Rapdis TRANSLINGU 4 mg Q6H PRN Administration Vomiting Polyethylene Glycol 17 gm 10/10/20 09:00 10/28/20 15:13 Polyethylene Glycol 3350 17 Gm Powd.Pack PO Not Given DAILY [facility] Allergies Allergies Allergy/AdvReac Type Severity Reaction Status Date / Time No Known Allergies Allergy Verified 10/01/20 08:19 [No Known Allergies*] Assessment & Plan Assessment & Plan (1) GERD (gastroesophageal reflux disease): Status: Acute Code(s): K21.9 - Gastro-esophageal reflux disease without esophagitis Assessment and Plan: GI consult read and appreciated (2) Major depressive disorder, recurrent, severe with psychotic features: Status: Acute Code(s): F33.3 - Major depressive disorder, recurrent, severe with psychotic symptoms Assessment and Plan: monitor response to ECT evaluate safety for discharge (3) Physical deconditioning: Status: Acute Code(s): R53.81 - Other malaise Greater than 50% of the session was spent on counseling and/or coordination of care
--- NOTE | 2020-10-29 08:22 | HO.POSTANES ---
Post Anesthesia Evaluation Post Anesthesia Evaluation Vital Signs: Vital Signs Temp Pulse Resp BP Pulse Ox 10/29/20 08:10 89 18 118/85 95 10/29/20 07:55 95 18 124/88 95 10/29/20 07:50 92 20 140/92 H 95 10/29/20 07:45 80 18 132/86 98 10/29/20 07:40 98.4 F 62 17 127/76 97 10/29/20 06:46 97.7 F 103 H 18 131/76 97 10/29/20 05:45 98.1 F 85 18 123/74 96 Anesthesia: General Mental Status: Awake Pain Control: Satisfactory Nausea/Vomiting: None Hydration: Adequate Anesthesia-Related Issues: No Anes. Related Issues
[2020-10-29] MEDS: polyethylene glycoL 3350 17 GM POWD.PACK PO (09:02)
[2020-10-29] MEDS: Apixaban 5 MG TABLET PO ×2 (09:03→20:00)
[2020-10-29] MEDS: DULoxetine HCl 20 MG CAPSULE.DR PO (09:03)
[2020-10-29] MEDS: Docusate Sodium 100 MG CAPSULE PO ×2 (09:03→20:00)
[2020-10-29] MEDS: Ferrous Sulfate 324 MG TABLET.DR PO (09:03)
[2020-10-29] MEDS: Finasteride 5 MG TABLET PO (09:03)
[2020-10-29] MEDS: Omeprazole 40 MG CAPSULE.DR PO ×2 (09:03→16:12)
[2020-10-29] MEDS: Lactated Ringers 1,000 ML 100 ML IVCONT (10:40)
--- NOTE | 2020-10-29 13:47 | PM.GIPN ---
Subjective Subjective Date of Service: 10/29/20 Interval History: asked to evaluate pt for nausea and vomiting. José Luis reports about 1 week of nausea with nonbloody emesis Thursday and Thursday. Feels better today, tolerated breakfast and lunch without vomiting. Physical Exam Vital Signs: Vital Signs: Last Vital Signs Temp 99.0 F 10/29/20 08:45 Pulse 108 H 10/29/20 11:58 Resp 20 10/29/20 08:25 BP 115/77 10/29/20 11:58 Pulse Ox 96 10/29/20 08:25 Body Mass Index 24.1 Const: Other: sitting in a chair with a blanket no distress GI: Other: soft, nontender, bowel sounds present, no masses Objective Data Labs CBC & Chem 7: 10/28/20 07:36 10/28/20 07:36 Progress Note: A&P Assessment and plan (1) GERD (gastroesophageal reflux disease): Status: Acute Assessment and Plan: Erosive esophagitis on EGD. Nausea, and vomiting, possibly related to esophagitis. Appears improved No c/o nausea and vomiting or heartburn today. Continue ppi bid for 1 more week, then decrease dose to 40 mg daily if doing well. Time Spent With Patient Time: Total time spent is greater than 50% in coordination of care (as documented) at patient's floor/unit and/or counseling patient: Time with patient: less than 15 minutes
[2020-10-29] MEDS: Atorvastatin Calcium 80 MG TABLET PO (20:00)
[2020-10-29] MEDS: OLANZapine 10 MG TABLET PO (20:00)
[2020-10-30 06:05] VITALS: BP 112/56; PULSE 87; RESP 16; TEMP 37; O2SAT 96
[2020-10-30] MEDS: Omeprazole 40 MG CAPSULE.DR PO ×2 (08:12→16:57)
[2020-10-30] MEDS: Ferrous Sulfate 324 MG TABLET.DR PO (08:13)
[2020-10-30] MEDS: DULoxetine HCl 20 MG CAPSULE.DR PO (08:14)
[2020-10-30] MEDS: Docusate Sodium 100 MG CAPSULE PO ×2 (08:14→20:43)
[2020-10-30] MEDS: Apixaban 5 MG TABLET PO ×2 (08:14→20:43)
[2020-10-30] MEDS: polyethylene glycoL 3350 17 GM POWD.PACK PO (08:15)
[2020-10-30] MEDS: Finasteride 5 MG TABLET PO (08:15)
[2020-10-30 09:18] VITALS: BP 103/57; PULSE 86
[2020-10-30 11:34] VITALS: BP 103/57; PULSE 86
[2020-10-30 15:14] VITALS: BP 134/73; PULSE 95
[2020-10-30 16:00] VITALS: BP 131/70; PULSE 82
[2020-10-30 16:32] VITALS: TEMP 36.1
[2020-10-30] MEDS: Atorvastatin Calcium 80 MG TABLET PO (20:43)
[2020-10-30] MEDS: OLANZapine 10 MG TABLET PO (20:43)
--- NOTE | 2020-10-30 21:42 | P.PNPSI_ITS ---
Subjective Subjective Date of Service: 10/30/20 Reason For Visit: Major Depressive disorder Subjective Notes: Conditional Voluntary Interim History: patient walking with a walker sensorium clear mood flat but much improved no vomiting today concerned regarding ECT yet understands that he requires this Medication Compliance: Yes Mental Status Exam Mental Status Exam Narrative: improving mood and judgment full range of affect with able to engaged with others more Patient Appearance: Appropriate (ambilating with walker, in NAD) Patient Orientation: Person, Place and Situation Level of Consciousness: Alert Patient Behavior: Cooperative and Fatigued Behavior Comments: Mood Description: Calm ( okay ), Withdrawn and Flat Affect Description: Calm (restricted in range but congruent with reported mood) and Withdrawn Patient Cognition Impaired: Yes Ability to Follow Directions: Good Speech Pattern: Clear, Spontaneous Speech (minimally spontaneous) and Soft-Sp oken Memory Description: Remote Impaired and Immediate Impaired Diagnostics Vital Signs (24Hr): Vital Signs - 24 hr 10/30/20 06:05 10/30/20 09:18 10/30/20 11:34 Temperature 98.6 F Pulse Rate 87 86 86 Respiratory Rate 16 Blood Pressure 112/56 L 103/57 L 103/57 L Pulse Oximetry 96 10/30/20 15:14 10/30/20 16:00 10/30/20 16:32 Temperature 97.0 F Pulse Rate 95 82 Respiratory Rate Blood Pressure 134/73 131/70 Pulse Oximetry Body Mass Index 24.1 Labs Results: 10/28/20 07:36 10/28/20 07:36 Imaging Radiology Impressions: ITS Impressions Chest X-Ray 10/10/20 00:00 IMPRESSION: Low lung volume. Faint linear opacity in the left midlung may be atelectasis. Medications Medications Current Medications Generic Name Dose Route Start Last Admin Trade Name Freq PRN Reason Stop Dose Admin Acetaminophen 650 mg 10/09/20 19:36 Acetaminophen Supp 650 Mg Supp.Rect [place] Q6H PRN Pain, Mild (Pain Scale 1-3) Acetaminophen 650 mg 10/09/20 19:37 Acetaminophen 325 Mg Tablet PO Q6H PRN Headache/Pain Mild Scale (1-3) Al Hydroxide/Mg Hydroxide 30 ml 10/09/20 19:37 Magnesium Hydrox/Alum Hydrox 30 Ml Oral.Susp PO Q6H PRN Heartburn/Nausea Apixaban 5 mg 10/09/20 21:00 10/30/20 20:43 Apixaban 5 Mg Tablet PO 5 mg BID ROMMEL Administration Atorvastatin Calcium 80 mg 10/09/20 21:00 10/30/20 20:43 Atorvastatin Calcium 80 Mg Tablet PO 80 mg BEDTIME ROMMEL Administration Docusate Sodium 100 mg 10/09/20 21:00 10/30/20 20:43 Docusate Sodium 100 Mg Capsule PO 100 mg BID ROMMEL Administration Duloxetine HCl 20 mg 10/23/20 09:00 10/30/20 08:14 Duloxetine Hcl 20 Mg Capsule. PO 20 mg DAILY ROMMEL Administration Ferrous Sulfate 324 mg 10/10/20 09:00 10/30/20 08:13 Ferrous Sulfate 324 Mg Tablet. PO 324 mg DAILY ROMMEL Administration Finasteride 5 mg 10/10/20 09:00 10/30/20 08:15 Finasteride 5 Mg Tablet PO 5 mg DAILY ROMMEL Administration Magnesium Hydroxide 30 ml 10/09/20 19:37 Milk Of Magnesia 30 Ml Oral.Susp PO DAILY PRN Constipation Olanzapine 10 mg 10/18/20 21:00 10/30/20 20:43 Olanzapine 10 Mg Tablet PO 10 mg BEDTIME ROMMEL Administration Olanzapine 2.5 mg 10/24/20 09:35 10/28/20 04:21 Olanzapine 2.5 Mg Tablet PO 2.5 mg BID PRN Administration Anxiety Omeprazole 40 mg 10/23/20 16:30 10/30/20 16:57 Omeprazole 40 Mg Capsule. PO 40 mg BID@0630,1630 ROMMEL Administration Ondansetron HCl 4 mg 10/27/20 19:54 10/28/20 08:41 Ondansetron Odt 4 Mg Tab.Rapdis TRANSLINGU 4 mg Q6H PRN Administration Vomiting Polyethylene Glycol 17 gm 10/10/20 09:00 10/30/20 08:15 Polyethylene Glycol 3350 17 Gm Powd.Pack PO 17 gm DAILY ROMMEL Administration Allergies Allergies Allergy/AdvReac Type Severity Reaction Status Date / Time No Known Allergies Allergy Verified 10/01/20 08:19 [No Known Allergies*] Assessment & Plan Assessment & Plan (1) GERD (gastroesophageal reflux disease): Status: Acute Code(s): K21.9 - Gastro-esophageal reflux disease without esophagitis (2) Major depressive disorder, recurrent, severe with psychotic features: Status: Acute Code(s): F33.3 - Major depressive disorder, recurrent, severe with psychotic symptoms Assessment and Plan: patient appears generally stable for discharge will continue outpatient ECT (3) Physical deconditioning: Status: Acute Code(s): R53.81 - Other malaise Greater than 50% of the session was spent on counseling and/or coordination of care Patient educated on: diagnosis and ECT Reason for contiued inpatient stay Substantial Risk for: rapid decompensation and med/psych decompensation
[2020-10-31 06:15] VITALS: BP 102/58; PULSE 95; RESP 16; TEMP 37.1; O2SAT 98
[2020-10-31] MEDS: DULoxetine HCl 20 MG CAPSULE.DR PO (08:19)
[2020-10-31] MEDS: Ferrous Sulfate 324 MG TABLET.DR PO (08:20)
[2020-10-31] MEDS: Vilazodone HCL 10 MG TABLET PO (08:20)
[2020-10-31] MEDS: Docusate Sodium 100 MG CAPSULE PO ×2 (08:21→22:09)
[2020-10-31] MEDS: Apixaban 5 MG TABLET PO ×2 (08:21→22:09)
[2020-10-31] MEDS: polyethylene glycoL 3350 17 GM POWD.PACK PO (08:21)
[2020-10-31] MEDS: Omeprazole 40 MG CAPSULE.DR PO ×2 (08:21→16:37)
[2020-10-31] MEDS: Finasteride 5 MG TABLET PO (08:22)
[2020-10-31 08:34] VITALS: BP 123/64; PULSE 81
[2020-10-31] MEDS: OLANZapine 10 MG TABLET PO (22:08)
[2020-10-31] MEDS: Atorvastatin Calcium 80 MG TABLET PO (22:08)
[2020-10-31 22:15] VITALS: BP 128/72; PULSE 77
[2020-10-31 22:19] VITALS: TEMP 36.6
--- NOTE | 2020-10-31 22:33 | P.PNPSI_ITS ---
Subjective Subjective Date of Service: 10/31/20 Reason For Visit: Major Depressive disorder Subjective Notes: Conditional Voluntary Interim History: patient flat not quite at baseline ambulation is still not at baseline case reviewed extensively with gastroenterology patient has periods of questionable dysphagia versus dysmotility and vomiting agreeable to further inpatient ECT for depression agreeable to starting vilazodone Medication Compliance: Yes Side effects from medications: Yes Mental Status Exam Mental Status Exam Narrative: improving mood and judgment full range of affect with able to engaged with others more Patient Appearance: Appropriate (ambilating with walker, in NAD) Patient Orientation: Person, Place and Situation Level of Consciousness: Alert Patient Behavior: Cooperative, Passive and Fatigued Behavior Comments: Mood Description: Calm ( okay ), Withdrawn, Depressed and Flat Affect Description: Calm (restricted in range but congruent with reported mood), Withdrawn, Blunted and Flat Patient Cognition Impaired: Yes Ability to Follow Directions: Good Speech Pattern: Clear, Spontaneous Speech (minimally spontaneous) and Soft- Spoken Memory Description: Remote Impaired and Immediate Impaired Hallucinations: None Thought Content: positive for [place], positive for Goal Oriented, positive for Slowed Thinking, negative for Suicidal Ideation and negative for Homicidal Ideation Diagnostics Vital Signs (24Hr): Vital Signs - 24 hr 10/31/20 06:15 10/31/20 08:34 10/31/20 22:15 Temperature 98.7 F Pulse Rate 95 81 77 Respiratory Rate 16 Blood Pressure 102/58 L 123/64 128/72 Pulse Oximetry 98 10/31/20 22:19 Temperature 97.9 F Pulse Rate Respiratory Rate Blood Pressure Pulse Oximetry Body Mass Index 24.1 Labs Results: 10/28/20 07:36 10/28/20 07:36 Imaging Radiology Impressions: ITS Impressions Chest X-Ray 10/10/20 00:00 IMPRESSION: Low lung volume. Faint linear opacity in the left midlung may be atelectasis. Medications Medications Current Medications Generic Name Dose Route Start Last Admin Trade Name Freq PRN Reason Stop Dose Admin Acetaminophen 650 mg 10/09/20 19:36 Acetaminophen Supp 650 Mg Supp.Rect [place] Q6H PRN Pain, Mild (Pain Scale 1-3) Acetaminophen 650 mg 10/09/20 19:37 Acetaminophen 325 Mg Tablet PO Q6H PRN Headache/Pain Mild Scale (1-3) Al Hydroxide/Mg Hydroxide 30 ml 10/09/20 19:37 Magnesium Hydrox/Alum Hydrox 30 Ml Oral.Susp PO Q6H PRN Heartburn/Nausea Apixaban 5 mg 10/09/20 21:00 10/31/20 22:09 Apixaban 5 Mg Tablet PO 5 mg BID ROMMEL Administration Atorvastatin Calcium 80 mg 10/09/20 21:00 10/31/20 22:08 Atorvastatin Calcium 80 Mg Tablet PO 80 mg BEDTIME ROMMEL Administration Docusate Sodium 100 mg 10/09/20 21:00 10/31/20 22:09 Docusate Sodium 100 Mg Capsule PO 100 mg BID ROMMEL Administration Duloxetine HCl 20 mg 10/23/20 09:00 10/31/20 08:19 Duloxetine Hcl 20 Mg Capsule. PO 20 mg DAILY ROMMEL Administration Ferrous Sulfate 324 mg 10/10/20 09:00 10/31/20 08:20 Ferrous Sulfate 324 Mg Tablet. PO 324 mg DAILY ROMMEL Administration Finasteride 5 mg 10/10/20 09:00 10/31/20 08:22 Finasteride 5 Mg Tablet PO 5 mg DAILY ROMMEL Administration Magnesium Hydroxide 30 ml 10/09/20 19:37 Milk Of Magnesia 30 Ml Oral.Susp PO DAILY PRN Constipation Olanzapine 10 mg 10/18/20 21:00 10/31/20 22:08 Olanzapine 10 Mg Tablet PO 10 mg BEDTIME ROMMEL Administration Olanzapine 2.5 mg 10/24/20 09:35 10/28/20 04:21 Olanzapine 2.5 Mg Tablet PO 2.5 mg BID PRN Administration Anxiety Omeprazole 40 mg 10/23/20 16:30 10/31/20 16:37 Omeprazole 40 Mg Capsule. PO 40 mg BID@0630,1630 ROMMEL Administration Ondansetron HCl 4 mg 10/27/20 19:54 10/28/20 08:41 Ondansetron Odt 4 Mg Tab.Rapdis TRANSLINGU 4 mg Q6H PRN Administration Vomiting Polyethylene Glycol 17 gm 10/10/20 09:00 10/31/20 08:21 Polyethylene Glycol 3350 17 Gm Powd.Pack PO 17 gm DAILY ROMMEL Administration Vilazodone HCl 10 mg 10/31/20 09:00 10/31/20 08:20 Vilazodone Hcl 10 Mg Tablet PO 10 mg DAILY ROMMEL Administration Allergies Allergies Allergy/AdvReac Type Severity Reaction Status Date / Time No Known Allergies Allergy Verified 10/01/20 08:19 [No Known Allergies*] Assessment & Plan Assessment & Plan (1) Major depressive disorder, recurrent, severe with psychotic features: Status: Acute Code(s): F33.3 - Major depressive disorder, recurrent, severe with psychotic symptoms Assessment and Plan: continue ECT does not quite seem stable enough to return to rest home and quarantine vilazodone started (2) Physical deconditioning: Status: Acute Code(s): R53.81 - Other malaise (3) GERD (gastroesophageal reflux disease): Status: Acute Code(s): K21.9 - Gastro-esophageal reflux disease without esophagitis Assessment and Plan: barium swallow ordered continue PPI case reviewed with Dr. White Greater than 50% of the session was spent on counseling and/or coordination of care
--- NOTE | 2020-11-01 | FL_ITS ---
EXAMINATION: FL ESOPHAGRAM CLINICAL INFORMATION: History of esophagitis with vomiting. COMPARISON: CT from 10/04/2020 TECHNIQUE: A routine single contrast esophagram was performed. The patient took thin barium without difficulty in various standing and prone obliquities. FINDINGS: AP and lateral views of the cervical esophagus are unremarkable with no evidence of cricopharyngeal dysfunction or diverticulum. There is normal distensibility of the esophagus. Normal course. There is moderate to severe dysmotility, seen with the patient in prone position. Significant stasis of the contrast within the esophagus. There is a moderate sized hiatal hernia again noted, as seen on the prior CT. There is no gastroesophageal reflux elicited on this examination. There is no evidence of stricture or mass identified. FLUOROSCOPY TIME: 1.5 minutes DOSE AREA PRODUCT: 10.102 Gy-cm2 (collado-centimeter squared) FL/FL barium swallow IMPRESSION: Moderate hiatal hernia again noted. There is associated moderate to severe esophageal dysmotility, with significant stasis of contrast within the esophagus with the patient in the prone position.
[2020-11-01 06:35] VITALS: BP 112/58; PULSE 71; RESP 18; TEMP 36.7; O2SAT 95
[2020-11-01 07:00] VITALS: BMI 24.7
[2020-11-01] MEDS: Omeprazole 40 MG CAPSULE.DR PO ×2 (09:11→18:36)
[2020-11-01] MEDS: DULoxetine HCl 20 MG CAPSULE.DR PO (09:11)
[2020-11-01] MEDS: Apixaban 5 MG TABLET PO ×2 (09:11→20:24)
[2020-11-01] MEDS: Ferrous Sulfate 324 MG TABLET.DR PO (09:11)
[2020-11-01] MEDS: polyethylene glycoL 3350 17 GM POWD.PACK PO (09:11)
[2020-11-01] MEDS: Docusate Sodium 100 MG CAPSULE PO ×2 (09:11→20:25)
[2020-11-01] MEDS: Finasteride 5 MG TABLET PO (09:11)
[2020-11-01] MEDS: Vilazodone HCL 10 MG TABLET PO (09:11)
[2020-11-01 16:00] VITALS: BP 116/62; PULSE 79
[2020-11-01 16:59] VITALS: BP 111/69; PULSE 95
[2020-11-01 17:00] VITALS: BP 95/52; PULSE 98
[2020-11-01] MEDS: Atorvastatin Calcium 80 MG TABLET PO (20:25)
[2020-11-01] MEDS: OLANZapine 10 MG TABLET PO (20:25)
--- NOTE | 2020-11-01 21:27 | HO.PSYCHPN ---
Subjective Subjective Date of Service: 11/01/20 Reason For Visit: Major Depressive disorder Subjective Notes: Conditional Voluntary Interim History: patient with some improvement [place] affect tolerating ECT has started on vilazodone agreeable to ECT tomorrow Medication Compliance: Yes Mental Status Exam Mental Status Exam Narrative: improving mood and judgment full range of affect with able to engaged with others more Patient Appearance: Appropriate (ambilating with walker, in NAD) Patient Orientation: Person, Place and Situation Level of Consciousness: Alert Patient Behavior: Cooperative and Passive Behavior Comments: Mood Description: Calm ( okay ), Withdrawn, Depressed and Flat Affect Description: Calm (restricted in range but congruent with reported mood), Withdrawn, Blunted and Flat Patient Cognition Impaired: Yes Ability to Follow Directions: Good Speech Pattern: Clear, Spontaneous Speech (minimally spontaneous) and Soft-Spoken Memory Description: Remote Impaired and Immediate Impaired Hallucinations: None Thought Content: positive for [place], positive for Goal Oriented, positive for Slowed Thinking, negative for Suicidal Ideation and negative for Homicidal Ideation Diagnostics Vital Signs (24Hr): Vital Signs - 24 hr 10/31/20 22:15 10/31/20 22:19 11/01/20 06:35 Temperature 97.9 F 98.1 F Pulse Rate 77 71 Respiratory Rate 18 Blood Pressure 128/72 112/58 L Pulse Oximetry 95 11/01/20 16:00 11/01/20 16:59 11/01/20 17:00 Temperature Pulse Rate 79 95 98 Respiratory Rate Blood Pressure 116/62 111/69 95/52 L Pulse Oximetry Body Mass Index 24.7 Labs Results: 10/28/20 07:36 10/28/20 07:36 Imaging Radiology Impressions: ITS Impressions Chest X-Ray 10/10/20 00:00 IMPRESSION: Low lung volume. Faint linear opacity in the left midlung may be atelectasis. Barium Swallow X-Ray 11/01/20 00:00 IMPRESSION: Moderate hiatal hernia again noted. There is associated moderate to severe esophageal dysmotility, with significant stasis of contrast within the esophagus with the patient in the prone position. Medications Medications Current Medications Generic Name Dose Route Start Last Admin Trade Name Freq PRN Reason Stop Dose Admin Acetaminophen 650 mg 10/09/20 19:36 Acetaminophen Supp 650 Mg Supp.Rect [place] Q6H PRN Pain, Mild (Pain Scale 1-3) Acetaminophen 650 mg 10/09/20 19:37 Acetaminophen 325 Mg Tablet PO Q6H PRN Headache/Pain Mild Scale (1-3) Al Hydroxide/Mg Hydroxide 30 ml 10/09/20 19:37 Magnesium Hydrox/Alum Hydrox 30 Ml Oral.Susp PO Q6H PRN Heartburn/Nausea Apixaban 5 mg 10/09/20 21:00 11/01/20 20:24 Apixaban 5 Mg Tablet PO 5 mg BID ROMMEL Administration Atorvastatin Calcium 80 mg 10/09/20 21:00 11/01/20 20:25 Atorvastatin Calcium 80 Mg Tablet PO 80 mg BEDTIME ROMMEL Administration Docusate Sodium 100 mg 10/09/20 21:00 11/01/20 20:25 Docusate Sodium 100 Mg Capsule PO 100 mg BID ROMMEL Administration Duloxetine HCl 20 mg 10/23/20 09:00 11/01/20 09:11 Duloxetine Hcl 20 Mg Capsule. PO 20 mg DAILY ROMMEL Administration Ferrous Sulfate 324 mg 10/10/20 09:00 11/01/20 09:11 Ferrous Sulfate 324 Mg Tablet. PO 324 mg DAILY ROMMEL Administration Finasteride 5 mg 10/10/20 09:00 11/01/20 09:11 Finasteride 5 Mg Tablet PO 5 mg DAILY ROMMEL Administration Magnesium Hydroxide 30 ml 10/09/20 19:37 Milk Of Magnesia 30 Ml Oral.Susp PO DAILY PRN Constipation Olanzapine 10 mg 10/18/20 21:00 11/01/20 20:25 Olanzapine 10 Mg Tablet PO 10 mg BEDTIME ROMMEL Administration Olanzapine 2.5 mg 10/24/20 09:35 10/28/20 04:21 Olanzapine 2.5 Mg Tablet PO 2.5 mg BID PRN Administration Anxiety Omeprazole 40 mg 10/23/20 16:30 11/01/20 18:36 Omeprazole 40 Mg Capsule. PO 40 mg BID@0630,1630 ROMMEL Administration Ondansetron HCl 4 mg 10/27/20 19:54 10/28/20 08:41 Ondansetron Odt 4 Mg Tab.Rapdis TRANSLINGU 4 mg Q6H PRN Administration Vomiting Polyethylene Glycol 17 gm 10/10/20 09:00 11/01/20 09:11 Polyethylene Glycol 3350 17 Gm Powd.Pack PO 17 gm DAILY ROMMEL Administration Vilazodone HCl 10 mg 10/31/20 09:00 11/01/20 09:11 Vilazodone Hcl 10 Mg Tablet PO 10 mg DAILY ROMMEL Administration Allergies Allergies Allergy/AdvReac Type Severity Reaction Status Date / Time No Known Allergies Allergy Verified 10/01/20 08:19 [No Known Allergies*] Assessment & Plan Assessment & Plan (1) GERD (gastroesophageal reflux disease): Status: Acute Code(s): K21.9 - Gastro-esophageal reflux disease without esophagitis (2) Major depressive disorder, recurrent, severe with psychotic features: Status: Acute Code(s): F33.3 - Major depressive disorder, recurrent, severe with psychotic symptoms Assessment and Plan: continue ECT start vilazodone (3) Physical deconditioning: Status: Acute Code(s): R53.81 - Other malaise Greater than 50% of the session was spent on counseling and/or coordination of care
--- NOTE | 2020-11-02 00:08 | PC.NURSE ---
At approximately 0005 T/W observed a moderate amount of wood blood in toilet after pt had a BM. Pt denied pain; denied dizziness. VSS Will continue to monitor and report.
[2020-11-02 05:55] VITALS: BP 141/74; PULSE 91; RESP 18; TEMP 36.6; O2SAT 98
[2020-11-02 08:00] VITALS: BP 106/76; PULSE 93
--- NOTE | 2020-11-02 08:32 | P.PNPSI_ITS ---
Subjective Subjective Date of Service: 11/05/20 Reason For Visit: Major Depressive disorder Interim History: patient not overly depressed ECT canceled secondary to reported bright red blood decreased hematocrit call placed to Dr. Sims and Gastroenterology Medication Compliance: Yes Attending Groups: Intermittent Mental Status Exam Mental Status Exam Narrative: improving mood and judgment full range of affect with able to engaged with others more Patient Appearance: Appropriate (ambilating with walker, in NAD) Patient Orientation: Person, Place and Situation Level of Consciousness: Alert Patient Behavior: Cooperative and Passive Behavior Comments: Mood Description: Calm ( okay ), Withdrawn, Depressed and Flat Affect Description: Calm (restricted in range but congruent with reported mood), Withdrawn, Blunted and Flat Patient Cognition Impaired: Yes Ability to Follow Directions: Good Speech Pattern: Clear, Spontaneous Speech (minimally spontaneous) and Soft- Spoken Memory Description: Remote Impaired and Immediate Impaired Diagnostics Vital Signs (24Hr): Vital Signs - 24 hr 11/01/20 16:00 11/01/20 16:59 11/01/20 17:00 Temperature Pulse Rate 79 95 98 Respiratory Rate Blood Pressure 116/62 111/69 95/52 L Pulse Oximetry 11/02/20 05:55 Temperature 97.8 F Pulse Rate 91 Respiratory Rate 18 Blood Pressure 141/74 H Pulse Oximetry 98 Body Mass Index 24.7 Labs Results: 11/04/20 08:22 10/28/20 07:36 Imaging Radiology Impressions: ITS Impressions Chest X-Ray 10/10/20 00:00 IMPRESSION: Low lung volume. Faint linear opacity in the left midlung may be atelectasis. Barium Swallow X-Ray 11/01/20 00:00 IMPRESSION: Moderate hiatal hernia again noted. There is associated moderate to severe esophageal dysmotility, with significant stasis of contrast within the esophagus with the patient in the prone position. Medications Medications Current Medications Generic Name Dose Route Start Last Admin Trade Name Freq PRN Reason Stop Dose Admin Acetaminophen 650 mg 10/09/20 19:36 Acetaminophen Supp 650 Mg Supp.Rect [place] Q6H PRN Pain, Mild (Pain Scale 1-3) Acetaminophen 650 mg 10/09/20 19:37 Acetaminophen 325 Mg Tablet PO Q6H PRN Headache/Pain Mild Scale (1-3) Al Hydroxide/Mg Hydroxide 30 ml 10/09/20 19:37 Magnesium Hydrox/Alum Hydrox 30 Ml Oral.Susp PO Q6H PRN Heartburn/Nausea Apixaban 5 mg 10/09/20 21:00 11/01/20 20:24 Apixaban 5 Mg Tablet PO 5 mg BID ROMMEL Administration Atorvastatin Calcium 80 mg 10/09/20 21:00 11/01/20 20:25 Atorvastatin Calcium 80 Mg Tablet PO 80 mg BEDTIME ROMMEL Administration Docusate Sodium 100 mg 10/09/20 21:00 11/01/20 20:25 Docusate Sodium 100 Mg Capsule PO 100 mg BID ROMMEL Administration Duloxetine HCl 20 mg 10/23/20 09:00 11/01/20 09:11 Duloxetine Hcl 20 Mg Capsule. PO 20 mg DAILY ROMMEL Administration Ferrous Sulfate 324 mg 10/10/20 09:00 11/01/20 09:11 Ferrous Sulfate 324 Mg Tablet. PO 324 mg DAILY ROMMEL Administration Finasteride 5 mg 10/10/20 09:00 11/01/20 09:11 Finasteride 5 Mg Tablet PO 5 mg DAILY ROMMEL Administration Magnesium Hydroxide 30 ml 10/09/20 19:37 Milk Of Magnesia 30 Ml Oral.Susp PO DAILY PRN Constipation Olanzapine 10 mg 10/18/20 21:00 11/01/20 20:25 Olanzapine 10 Mg Tablet PO 10 mg BEDTIME ROMMEL Administration Olanzapine 2.5 mg 10/24/20 09:35 10/28/20 04:21 Olanzapine 2.5 Mg Tablet PO 2.5 mg BID PRN Administration Anxiety Omeprazole 40 mg 10/23/20 16:30 11/01/20 18:36 Omeprazole 40 Mg Capsule. PO 40 mg BID@0630,1630 ROMMEL Administration Ondansetron HCl 4 mg 10/27/20 19:54 10/28/20 08:41 Ondansetron Odt 4 Mg Tab.Rapdis TRANSLINGU 4 mg Q6H PRN Administration Vomiting Polyethylene Glycol 17 gm 10/10/20 09:00 11/01/20 09:11 Polyethylene Glycol 3350 17 Gm Powd.Pack PO 17 gm DAILY ROMMEL Administration Vilazodone HCl 10 mg 10/31/20 09:00 11/01/20 09:11 Vilazodone Hcl 10 Mg Tablet PO 10 mg DAILY ROMMEL Administration Allergies Allergies Allergy/AdvReac Type Severity Reaction Status Date / Time No Known Allergies Allergy Verified 10/01/20 08:19 [No Known Allergies*] Assessment & Plan Assessment & Plan (1) Major depressive disorder, recurrent, severe with psychotic features: Status: Acute Code(s): F33.3 - Major depressive disorder, recurrent, severe with psychotic symptoms Assessment and Plan: ECT held secondary to decreased hematocrit bright red blood need input from Gastroenterology call placed to Dr. White and Dr. Sims (2) Physical deconditioning: Status: Acute Code(s): R53.81 - Other malaise (3) Anemia: Status: Acute Code(s): D64.9 - Anemia, unspecified Greater than 50% of the session was spent on counseling and/or coordination of care
[2020-11-02] MEDS: Vilazodone HCL 10 MG TABLET PO (09:18)
[2020-11-02] MEDS: Finasteride 5 MG TABLET PO (09:18)
[2020-11-02] MEDS: polyethylene glycoL 3350 17 GM POWD.PACK PO (09:18)
[2020-11-02] MEDS: DULoxetine HCl 20 MG CAPSULE.DR PO (09:18)
[2020-11-02] MEDS: Ferrous Sulfate 324 MG TABLET.DR PO (09:18)
[2020-11-02] MEDS: Omeprazole 40 MG CAPSULE.DR PO ×2 (09:18→16:43)
[2020-11-02] MEDS: Docusate Sodium 100 MG CAPSULE PO ×2 (09:18→20:06)
[2020-11-02 09:35] LABS: MANUAL DIFF FLAG NO
[2020-11-02 09:37] LABS: Basophils Percent Auto 0.4 % (0-2); Eosinophils Absolute Auto 0.2 X10*3/uL (0.0-0.4); Eosinophils Percent Auto 3.3 % (0-4); Hematocrit 36.1 % (42-52); Hemoglobin 11.4 g/dl (14.0-18.0); Imm Gran Abs Auto 0.02 X10*3/uL (0.00-0.03); Imm Gran Pct Auto 0.4 % (0.0-0.4); Lymphocytes Absolute Auto 1.3 X10*3/uL (1.2-4.9); Lymphocytes Percent Auto 23.5 % (20-40); Mean Corpuscular HGB Conc 31.6 g/dl (31.0-36.0); Mean Corpuscular Hemoglobin 30.6 pg (27.0-33.0); Mean Corpuscular Volume 96.8 fL (80-98); Mean Platelet Volume 8.9 fL (9.4-12.4); Monocytes Absolute Auto 0.6 X10*3/uL (0.1-1.2); Monocytes Percent Auto 11.1 % (2-11); Neutrophils Absolute Auto 3.4 X10*3/uL (2.0-8.3); Neutrophils Percent Auto 61.3 % (45-73); Platelet Count 326 X10*3/uL (160-400); Red Blood Count 3.73 X10*6/uL (4.60-5.80); Red Cell Distribution Width 13.7 % (11.0-16.0); White Blood Count 5.5 X10*3/uL (4.8-10.8)
[2020-11-02 13:00] VITALS: BP 118/64; PULSE 88
--- NOTE | 2020-11-02 15:12 | PC.NURSE ---
PT SEEN TODAY BY DR MCKENNA FOR RECENT PROCEDURE F/U AND RECTAL BLEEDING NOTED TODAY. MD ASSESSED PT WITH NO NEW ORDERS. MD STATED HE BELIEVES THE BLEEDING WS FROM PTS CHRONIC HEMORRHOIDS. MD TO CONSULT WITH DR BRANCH REGARDING MEDICATION ELIQUIS AND ECT TX. PT WAS A&O X4, TOLERATED ASSESSMENT W/O DIFFICULTY AND VERBALIZED AN UNDERSTANDING OF THE ASSESSMENT.
--- NOTE | 2020-11-02 15:22 | PM.GIPN ---
Subjective Subjective Date of Service: 11/02/20 Interval History: no vomiting 1 episode of rectal bleeding last night Physical Exam Vital Signs: Vital Signs: Last Vital Signs Temp 97.8 F 11/02/20 05:55 Pulse 88 11/02/20 13:00 Resp 18 11/02/20 05:55 BP 118/64 11/02/20 13:00 Pulse Ox 98 11/02/20 05:55 Body Mass Index 24.7 Const: General: no acute distress and alert Resp: Auscultation: clear to auscultation bilaterally Cardio: Rate: regular rate Rhythm: regular rhythm Heart sounds: S1 normal heart sound present and S2 normal heart sound present GI: Palpation (GI): Soft to palpation (nontender) Auscultation: normal bowel sounds Objective Data Labs CBC & Chem 7: 11/02/20 09:17 10/28/20 07:36 Progress Note: A&P Assessment and plan (1) GERD (gastroesophageal reflux disease): Status: Acute Assessment and Plan: vomiting is likely due to erosive esophagitis and esophageal dysmotility advised to eat slowly, small bites, chew thoroughly and drink liquids. self limited rectal bleeding may be related to hemorrhoids. doubt post polypectomy bleeding. hold anticoagulation today and tomorrow, restart thursday if no further bleeding. Time Spent With Patient Time: Total time spent is greater than 50% in coordination of care (as documented) at patient's floor/unit and/or counseling patient: Time with patient: less than 15 minutes
[2020-11-02 18:00] VITALS: BP 130/67; PULSE 75; TEMP 36.3
[2020-11-02] MEDS: Atorvastatin Calcium 80 MG TABLET PO (20:05)
[2020-11-02] MEDS: OLANZapine 10 MG TABLET PO (20:05)
[2020-11-03 06:40] VITALS: BP 112/57; PULSE 81; RESP 16; TEMP 36.7; O2SAT 96
[2020-11-03 08:00] VITALS: BP 103/63; PULSE 92
[2020-11-03] MEDS: Finasteride 5 MG TABLET PO (09:12)
[2020-11-03] MEDS: Docusate Sodium 100 MG CAPSULE PO ×2 (09:13→20:10)
[2020-11-03] MEDS: DULoxetine HCl 20 MG CAPSULE.DR PO (09:13)
[2020-11-03] MEDS: polyethylene glycoL 3350 17 GM POWD.PACK PO (09:13)
--- NOTE | 2020-11-03 09:13 | P.PNPSI_ITS ---
Subjective Subjective Date of Service: 11/03/20 Reason For Visit: Major Depressive disorder Interim History: Much improved mood. Last eCT was 10/29. GI note reviewed. Pt reports some blood on toilet paper Its from hemorrhoids . Eliquis held. To restart Sun. ECT TBD. VS stable. DC Tues. Review of Systems Constitutional: Reports daytime sleepiness, Reports fatigue, Reports lethargy, Reports poor appetite and Reports weight loss Gastrointestinal: Reports constipation and Reports other (Guiac +) Genitourinary: Reports urinary hesitancy Reports confusion Psychiatric: Reports confusion, Reports depression, Reports difficulty concentrating, Reports anhedonia and Reports other Endocrine: Reports fatigue Mental Status Exam Mental Status Exam Narrative: improving mood and judgment full range of affect with able to engaged with others more Patient Appearance: Appropriate (ambilating with walker, in NAD) Patient Orientation: Person, Place and Situation Level of Consciousness: Alert Patient Behavior: Cooperative and Passive Behavior Comments: Mood Description: Calm ( okay ), Withdrawn, Depressed and Flat Affect Description: Calm (restricted in range but congruent with reported mood), Withdrawn, Blunted and Flat Patient Cognition Impaired: Yes Ability to Follow Directions: Good Speech Pattern: Clear, Spontaneous Speech (minimally spontaneous) and Soft- Spoken Memory Description: Remote Impaired and Immediate Impaired Diagnostics Vital Signs (24Hr): Vital Signs - 24 hr 11/02/20 13:00 11/02/20 18:00 11/03/20 06:40 Temperature 97.4 F 98.1 F Pulse Rate 88 75 81 Respiratory Rate 16 Blood Pressure 118/64 130/67 112/57 L Pulse Oximetry 96 Body Mass Index 24.7 Labs Results: 11/02/20 09:17 10/28/20 07:36 Labs: Laboratory Results - last 48 hr 11/02/20 09:17 WBC 5.5 RBC 3.73 L Hgb 11.4 L Hct 36.1 L MCV 96.8 MCH 30.6 MCHC 31.6 RDW 13.7 Plt Count 326 MPV 8.9 L Immature Gran % (Auto) 0.4 Neut % (Auto) 61.3 Lymph % (Auto) 23.5 [place] % (Auto) 11.1 H Eos % (Auto) 3.3 Baso % (Auto) 0.4 Lymph # (Auto) 1.3 [place] # (Auto) 0.6 Eos # (Auto) 0.2 Baso # (Auto) 0.0 Abs Immat Gran (auto) 0.02 Absolute Neuts (auto) 3.4 Absolute Nucleated RBC 0.000 Nucleated RBC % (auto) 0.0 Imaging Radiology Impressions: ITS Impressions Chest X-Ray 10/10/20 00:00 IMPRESSION: Low lung volume. Faint linear opacity in the left midlung may be atelectasis. Barium Swallow X-Ray 11/01/20 00:00 IMPRESSION: Moderate hiatal hernia again noted. There is associated moderate to severe esophageal dysmotility, with significant stasis of contrast within the esophagus with the patient in the prone position. Medications Medications Current Medications Generic Name Dose Route Start Last Admin Trade Name Freq PRN Reason Stop Dose Admin Acetaminophen 650 mg 10/09/20 19:36 Acetaminophen Supp 650 Mg Supp.Rect [place] Q6H PRN Pain, Mild (Pain Scale 1-3) Acetaminophen 650 mg 10/09/20 19:37 Acetaminophen 325 Mg Tablet PO Q6H PRN Headache/Pain Mild Scale (1-3) Al Hydroxide/Mg Hydroxide 30 ml 10/09/20 19:37 Magnesium Hydrox/Alum Hydrox 30 Ml Oral.Susp PO Q6H PRN Heartburn/Nausea Apixaban 5 mg 10/09/20 21:00 11/01/20 20:24 Apixaban 5 Mg Tablet PO 5 mg BID ROMMEL Administration Atorvastatin Calcium 80 mg 10/09/20 21:00 11/02/20 20:05 Atorvastatin Calcium 80 Mg Tablet PO 80 mg BEDTIME ROMMEL Administration Docusate Sodium 100 mg 10/09/20 21:00 11/02/20 20:06 Docusate Sodium 100 Mg Capsule PO 100 mg BID ROMMEL Administration Duloxetine HCl 20 mg 10/23/20 09:00 11/02/20 09:18 Duloxetine Hcl 20 Mg Capsule. PO 20 mg DAILY ROMMEL Administration Ferrous Sulfate 324 mg 10/10/20 09:00 11/02/20 09:18 Ferrous Sulfate 324 Mg Tablet. PO 324 mg DAILY ROMMEL Administration Finasteride 5 mg 10/10/20 09:00 11/02/20 09:18 Finasteride 5 Mg Tablet PO 5 mg DAILY ROMMEL Administration Magnesium Hydroxide 30 ml 10/09/20 19:37 Milk Of Magnesia 30 Ml Oral.Susp PO DAILY PRN Constipation Olanzapine 10 mg 10/18/20 21:00 11/02/20 20:05 Olanzapine 10 Mg Tablet PO 10 mg BEDTIME ROMMEL Administration Olanzapine 2.5 mg 10/24/20 09:35 10/28/20 04:21 Olanzapine 2.5 Mg Tablet PO 2.5 mg BID PRN Administration Anxiety Omeprazole 40 mg 10/23/20 16:30 11/02/20 16:43 Omeprazole 40 Mg Capsule. PO 40 mg BID@0630,1630 ROMMEL Administration Ondansetron HCl 4 mg 10/27/20 19:54 10/28/20 08:41 Ondansetron Odt 4 Mg Tab.Rapdis TRANSLINGU 4 mg Q6H PRN Administration Vomiting Polyethylene Glycol 17 gm 10/10/20 09:00 11/02/20 09:18 Polyethylene Glycol 3350 17 Gm Powd.Pack PO 17 gm DAILY ROMMEL Administration Vilazodone HCl 10 mg 10/31/20 09:00 11/02/20 09:18 Vilazodone Hcl 10 Mg Tablet PO 10 mg DAILY ROMMEL Administration Allergies Allergies Allergy/AdvReac Type Severity Reaction Status Date / Time No Known Allergies Allergy Verified 10/01/20 08:19 [No Known Allergies*] Assessment & Plan Assessment & Plan (1) GERD (gastroesophageal reflux disease): Status: Acute Code(s): K21.9 - Gastro-esophageal reflux disease without esophagitis (2) Major depressive disorder, recurrent, severe with psychotic features: Status: Acute Code(s): F33.3 - Major depressive disorder, recurrent, severe with psychotic symptoms (3) Anemia: Status: Acute Code(s): D64.9 - Anemia, unspecified Assessment and Plan: vomiting is likely due to erosive esophagitis and esophageal dysmotility advised to eat slowly, small bites, chew thoroughly and drink liquids. self limited rectal bleeding may be related to hemorrhoids. doubt post polypectomy bleeding. hold anticoagulation today and tomorrow, restart thursday if no further bleeding. MDD: Ct meds/ambulation/ ECT TBD. Recheck H and H Greater than 50% of the session was spent on counseling and/or coordination of care Reason for contiued inpatient stay Substantial Risk for: inability to function and med/psych decompensation
[2020-11-03] MEDS: Omeprazole 40 MG CAPSULE.DR PO ×2 (09:14→16:19)
[2020-11-03] MEDS: Ferrous Sulfate 324 MG TABLET.DR PO (09:15)
[2020-11-03] MEDS: Vilazodone HCL 10 MG TABLET PO (09:25)
[2020-11-03 16:00] VITALS: BP 127/73; PULSE 103
[2020-11-03 18:00] VITALS: TEMP 37
[2020-11-03] MEDS: Atorvastatin Calcium 80 MG TABLET PO (20:10)
[2020-11-03] MEDS: OLANZapine 10 MG TABLET PO (20:11)
--- NOTE | 2020-11-04 06:20 | PC.NURSE ---
PT PASSED MOD AMOUNT OF BRIGHT RED BLOOD WHILE TRYING TO HAVE A BM ON THE TOILET.
[2020-11-04 06:40] VITALS: BP 111/57; PULSE 76; RESP 17; TEMP 37
[2020-11-04 08:00] VITALS: BP 112/59; PULSE 97
--- NOTE | 2020-11-04 08:07 | P.PNPSI_ITS ---
Subjective Subjective Date of Service: 11/04/20 Reason For Visit: Major Depressive disorder Interim History: Stable mood. Hg dropped by 0.8 over 2 days. Has BRPR. Case DW Dr SELF re ECT or not. Hold Eliquis for now. Weigh R/B before ECT and DW HCP Review of Systems Constitutional: Reports daytime sleepiness, Reports fatigue, Reports lethargy, R eports poor appetite and Reports weight loss Gastrointestinal: Reports constipation and Reports other (Guiac +) Genitourinary: Reports urinary hesitancy Reports confusion Psychiatric: Reports confusion, Reports depression, Reports difficulty concentrating, Reports anhedonia and Reports other Endocrine: Reports fatigue Mental Status Exam Mental Status Exam Narrative: improving mood and judgment full range of affect with able to engaged with others more Patient Appearance: Appropriate (ambilating with walker, in NAD) Patient Orientation: Person, Place and Situation Level of Consciousness: Alert Patient Behavior: Cooperative and Passive Behavior Comments: Mood Description: Calm ( okay ), Withdrawn, Depressed and Flat Affect Description: Calm (restricted in range but congruent with reported mood), Withdrawn, Blunted and Flat Patient Cognition Impaired: Yes Ability to Follow Directions: Good Speech Pattern: Clear, Spontaneous Speech (minimally spontaneous) and Soft- Spoken Memory Description: Remote Impaired and Immediate Impaired Diagnostics Vital Signs (24Hr): Vital Signs - 24 hr 11/03/20 16:00 11/03/20 18:00 11/04/20 06:40 Temperature 98.6 F 98.6 F Pulse Rate 103 H 76 Respiratory Rate 17 Blood Pressure 127/73 111/57 L Body Mass Index 24.7 Labs Results: 11/04/20 08:22 10/28/20 07:36 Labs: Laboratory Results - last 48 hr 11/02/20 09:17 WBC 5.5 RBC 3.73 L Hgb 11.4 L Hct 36.1 L MCV 96.8 MCH 30.6 MCHC 31.6 RDW 13.7 Plt Count 326 MPV 8.9 L Immature Gran % (Auto) 0.4 Neut % (Auto) 61.3 Lymph % (Auto) 23.5 [place] % (Auto) 11.1 H Eos % (Auto) 3.3 Baso % (Auto) 0.4 Lymph # (Auto) 1.3 [place] # (Auto) 0.6 Eos # (Auto) 0.2 Baso # (Auto) 0.0 Abs Immat Gran (auto) 0.02 Absolute Neuts (auto) 3.4 Absolute Nucleated RBC 0.000 Nucleated RBC % (auto) 0.0 Imaging Radiology Impressions: ITS Impressions Chest X-Ray 10/10/20 00:00 IMPRESSION: Low lung volume. Faint linear opacity in the left midlung may be atelectasis. Barium Swallow X-Ray 11/01/20 00:00 IMPRESSION: Moderate hiatal hernia again noted. There is associated moderate to severe esophageal dysmotility, with significant stasis of contrast within the esophagus with the patient in the prone position. Medications Medications Current Medications Generic Name Dose Route Start Last Admin Trade Name Freq PRN Reason Stop Dose Admin Acetaminophen 650 mg 10/09/20 19:36 Acetaminophen Supp 650 Mg Supp.Rect [place] Q6H PRN Pain, Mild (Pain Scale 1-3) Acetaminophen 650 mg 10/09/20 19:37 Acetaminophen 325 Mg Tablet PO Q6H PRN Headache/Pain Mild Scale (1-3) Al Hydroxide/Mg Hydroxide 30 ml 10/09/20 19:37 Magnesium Hydrox/Alum Hydrox 30 Ml Oral.Susp PO Q6H PRN Heartburn/Nausea Apixaban 5 mg 10/09/20 21:00 11/01/20 20:24 Apixaban 5 Mg Tablet PO 5 mg BID ROMMEL Administration Atorvastatin Calcium 80 mg 10/09/20 21:00 11/03/20 20:10 Atorvastatin Calcium 80 Mg Tablet PO 80 mg BEDTIME ROMMEL Administration Docusate Sodium 100 mg 10/09/20 21:00 11/03/20 20:10 Docusate Sodium 100 Mg Capsule PO 100 mg BID ROMMEL Administration Duloxetine HCl 20 mg 10/23/20 09:00 11/03/20 09:13 Duloxetine Hcl 20 Mg Capsule. PO 20 mg DAILY ROMMEL Administration Ferrous Sulfate 324 mg 10/10/20 09:00 11/03/20 09:15 Ferrous Sulfate 324 Mg Tablet. PO 324 mg DAILY ROMMEL Administration Finasteride 5 mg 10/10/20 09:00 11/03/20 09:12 Finasteride 5 Mg Tablet PO 5 mg DAILY ROMMEL Administration Magnesium Hydroxide 30 ml 10/09/20 19:37 Milk Of Magnesia 30 Ml Oral.Susp PO DAILY PRN Constipation Olanzapine 10 mg 10/18/20 21:00 11/03/20 20:11 Olanzapine 10 Mg Tablet PO 10 mg BEDTIME ROMMEL Administration Olanzapine 2.5 mg 10/24/20 09:35 10/28/20 04:21 Olanzapine 2.5 Mg Tablet PO 2.5 mg BID PRN Administration Anxiety Omeprazole 40 mg 10/23/20 16:30 11/03/20 16:19 Omeprazole 40 Mg Capsule. PO 40 mg BID@0630,1630 ROMMEL Administration Ondansetron HCl 4 mg 10/27/20 19:54 10/28/20 08:41 Ondansetron Odt 4 Mg Tab.Rapdis TRANSLINGU 4 mg Q6H PRN Administration Vomiting Polyethylene Glycol 17 gm 10/10/20 09:00 11/03/20 09:13 Polyethylene Glycol 3350 17 Gm Powd.Pack PO 17 gm DAILY ROMMEL Administration Vilazodone HCl 10 mg 10/31/20 09:00 11/03/20 09:25 Vilazodone Hcl 10 Mg Tablet PO 10 mg DAILY ROMMEL Administration Allergies Allergies Allergy/AdvReac Type Severity Reaction Status Date / Time No Known Allergies Allergy Verified 10/01/20 08:19 [No Known Allergies*] Assessment & Plan Assessment & Plan (1) GERD (gastroesophageal reflux disease): Status: Acute Code(s): K21.9 - Gastro-esophageal reflux disease without esophagitis (2) Major depressive disorder, recurrent, severe with psychotic features: Status: Acute Code(s): F33.3 - Major depressive disorder, recurrent, severe with psychotic symptoms (3) Anemia: Status: Acute Code(s): D64.9 - Anemia, unspecified Assessment and Plan: vomiting is likely due to erosive esophagitis and esophageal dysmotility advised to eat slowly, small bites, chew thoroughly and drink liquids. self limited rectal bleeding may be related to hemorrhoids. doubt post polypectomy bleeding. hold anticoagulation today and tomorrow, restart thursday if no further bleeding. MDD: Ct meds/ambulation/ ECT TBD. Recheck H and H Greater than 50% of the session was spent on counseling and/or coordination of care Reason for contiued inpatient stay Substantial Risk for: inability to function and rapid decompensation
[2020-11-04 08:26] LABS: MANUAL DIFF FLAG NO
[2020-11-04 08:34] LABS: Basophils Percent Auto 0.2 % (0-2); Eosinophils Absolute Auto 0.1 X10*3/uL (0.0-0.4); Eosinophils Percent Auto 2.6 % (0-4); Hematocrit 31.9 % (42-52); Hemoglobin 10.6 g/dl (14.0-18.0); Imm Gran Abs Auto 0.01 X10*3/uL (0.00-0.03); Imm Gran Pct Auto 0.2 % (0.0-0.4); Lymphocytes Absolute Auto 1.1 X10*3/uL (1.2-4.9); Lymphocytes Percent Auto 21.1 % (20-40); Mean Corpuscular HGB Conc 33.2 g/dl (31.0-36.0); Mean Corpuscular Hemoglobin 31.2 pg (27.0-33.0); Mean Corpuscular Volume 93.8 fL (80-98); Mean Platelet Volume 8.5 fL (9.4-12.4); Monocytes Absolute Auto 0.7 X10*3/uL (0.1-1.2); Neutrophils Absolute Auto 3.5 X10*3/uL (2.0-8.3); Neutrophils Percent Auto 63.9 % (45-73); Platelet Count 239 X10*3/uL (160-400); Red Cell Distribution Width 13.6 % (11.0-16.0); White Blood Count 5.4 X10*3/uL (4.8-10.8)
[2020-11-04] MEDS: Finasteride 5 MG TABLET PO (08:49)
[2020-11-04] MEDS: polyethylene glycoL 3350 17 GM POWD.PACK PO (08:49)
[2020-11-04] MEDS: Omeprazole 40 MG CAPSULE.DR PO ×2 (08:49→16:09)
[2020-11-04] MEDS: Ferrous Sulfate 324 MG TABLET.DR PO (08:49)
[2020-11-04] MEDS: Docusate Sodium 100 MG CAPSULE PO ×2 (08:49→20:35)
[2020-11-04] MEDS: DULoxetine HCl 20 MG CAPSULE.DR PO (08:49)
[2020-11-04] MEDS: Vilazodone HCL 10 MG TABLET PO (08:49)
[2020-11-04 18:00] VITALS: BP 140/70; PULSE 93; TEMP 37.1
[2020-11-04] MEDS: Atorvastatin Calcium 80 MG TABLET PO (20:35)
[2020-11-04] MEDS: OLANZapine 10 MG TABLET PO (20:35)
[2020-11-05 06:35] VITALS: BP 135/78; PULSE 79; RESP 16; TEMP 36.9; O2SAT 98
[2020-11-05] MEDS: Omeprazole 40 MG CAPSULE.DR PO ×2 (07:03→15:59)
[2020-11-05] MEDS: Ferrous Sulfate 324 MG TABLET.DR PO (08:55)
[2020-11-05] MEDS: Finasteride 5 MG TABLET PO (08:55)
[2020-11-05] MEDS: Vilazodone HCL 10 MG TABLET PO (08:55)
[2020-11-05] MEDS: DULoxetine HCl 20 MG CAPSULE.DR PO (08:55)
[2020-11-05] MEDS: Docusate Sodium 100 MG CAPSULE PO ×2 (08:55→20:27)
[2020-11-05] MEDS: polyethylene glycoL 3350 17 GM POWD.PACK PO (08:55)
[2020-11-05] MEDS: OLANZapine 2.5 MG TABLET PO (15:59)
[2020-11-05 16:15] VITALS: BP 107/55; PULSE 81; TEMP 36.8
[2020-11-05] MEDS: OLANZapine 10 MG TABLET PO (20:27)
[2020-11-05] MEDS: Atorvastatin Calcium 80 MG TABLET PO (20:27)
[2020-11-05 20:30] VITALS: BP 126/60; PULSE 90; TEMP 36.9
--- NOTE | 2020-11-05 22:08 | P.PNPSI_ITS ---
Subjective Subjective Date of Service: 11/05/20 Reason For Visit: Major Depressive disorder Subjective Notes: Conditional Voluntary Interim History: patient somewhat depressed withdrawn feels beaten down upset over ongoing difficulty discharging him possible bleeding and holding up of ECT. He has been walking better Medication Compliance: Yes Mental Status Exam Mental Status Exam Narrative: improving mood and judgment full range of affect with able to engaged with others more Patient Appearance: Appropriate (ambilating with walker, in NAD) Patient Orientation: Person, Place and Situation Level of Consciousness: Alert Patient Behavior: Cooperative and Passive Behavior Comments: Mood Description: Calm ( okay ), Withdrawn, Depressed and Flat Affect Description: Calm (restricted in range but congruent with reported mood), Withdrawn, Blunted and Flat Patient Cognition Impaired: Yes Ability to Follow Directions: Good Speech Pattern: Clear, Spontaneous Speech (minimally spontaneous) and Soft- Spoken Memory Description: Remote Impaired and Immediate Impaired Diagnostics Vital Signs (24Hr): Vital Signs - 24 hr 11/05/20 06:35 11/05/20 16:15 11/05/20 20:30 Temperature 98.5 F 98.2 F 98.4 F Pulse Rate 79 81 90 Respiratory Rate 16 Blood Pressure 135/78 107/55 L 126/60 Pulse Oximetry 98 Body Mass Index 24.7 Labs Results: 11/04/20 08:22 10/28/20 07:36 Labs: Laboratory Results - last 48 hr 11/04/20 08:22 WBC 5.4 RBC 3.40 L Hgb 10.6 L Hct 31.9 L MCV 93.8 MCH 31.2 MCHC 33.2 RDW 13.6 Plt Count 239 D MPV 8.5 L Immature Gran % (Auto) 0.2 Neut % (Auto) 63.9 Lymph % (Auto) 21.1 [place] % (Auto) 12.0 H Eos % (Auto) 2.6 Baso % (Auto) 0.2 Lymph # (Auto) 1.[address] [place] # (Auto) 0.7 Eos # (Auto) 0.1 Baso # (Auto) 0.0 Abs Immat Gran (auto) 0.01 Absolute Neuts (auto) 3.5 Absolute Nucleated RBC 0.000 Nucleated RBC % (auto) 0.0 Imaging Radiology Impressions: ITS Impressions Chest X-Ray 10/10/20 00:00 IMPRESSION: Low lung volume. Faint linear opacity in the left midlung may be atelectasis. Barium Swallow X-Ray 11/01/20 00:00 IMPRESSION: Moderate hiatal hernia again noted. There is associated moderate to severe esophageal dysmotility, with significant stasis of contrast within the esophagus with the patient in the prone position. Medications Medications Current Medications Generic Name Dose Route Start Last Admin Trade Name Freq PRN Reason Stop Dose Admin Acetaminophen 650 mg 10/09/20 19:36 Acetaminophen Supp 650 Mg Supp.Rect [place] Q6H PRN Pain, Mild (Pain Scale 1-3) Acetaminophen 650 mg 10/09/20 19:37 Acetaminophen 325 Mg Tablet PO Q6H PRN Headache/Pain Mild Scale (1-3) Al Hydroxide/Mg Hydroxide 30 ml 10/09/20 19:37 Magnesium Hydrox/Alum Hydrox 30 Ml Oral.Susp PO Q6H PRN Heartburn/Nausea Apixaban 5 mg 10/09/20 21:00 11/01/20 20:24 Apixaban 5 Mg Tablet PO 5 mg BID ROMMEL Administration Atorvastatin Calcium 80 mg 10/09/20 21:00 11/05/20 20:27 Atorvastatin Calcium 80 Mg Tablet PO 80 mg BEDTIME ROMMEL Administration Docusate Sodium 100 mg 10/09/20 21:00 11/05/20 20:27 Docusate Sodium 100 Mg Capsule PO 100 mg BID ROMMEL Administration Duloxetine HCl 20 mg 10/23/20 09:00 11/05/20 08:55 Duloxetine Hcl 20 Mg Capsule. PO 20 mg DAILY ROMMEL Administration Ferrous Sulfate 324 mg 10/10/20 09:00 11/05/20 08:55 Ferrous Sulfate 324 Mg Tablet. PO 324 mg DAILY ROMMEL Administration Finasteride 5 mg 10/10/20 09:00 11/05/20 08:55 Finasteride 5 Mg Tablet PO 5 mg DAILY ROMMEL Administration Magnesium Hydroxide 30 ml 10/09/20 19:37 Milk Of Magnesia 30 Ml Oral.Susp PO DAILY PRN Constipation Olanzapine 10 mg 10/18/20 21:00 11/05/20 20:27 Olanzapine 10 Mg Tablet PO 10 mg BEDTIME ROMMEL Administration Olanzapine 2.5 mg 10/24/20 09:35 11/05/20 15:59 Olanzapine 2.5 Mg Tablet PO 2.5 mg BID PRN Administration Anxiety Omeprazole 40 mg 10/23/20 16:30 11/05/20 15:59 Omeprazole 40 Mg Capsule. PO 40 mg BID@7796,0732 ROMMEL Administration Ondansetron HCl 4 mg 10/27/20 19:54 10/28/20 08:41 Ondansetron Odt 4 Mg Tab.Rapdis TRANSLINGU 4 mg Q6H PRN Administration Vomiting Polyethylene Glycol 17 gm 10/10/20 09:00 11/05/20 08:55 Polyethylene Glycol 3350 17 Gm Powd.Pack PO 17 gm DAILY ROMMEL Administration Vilazodone HCl 10 mg 10/31/20 09:00 11/05/20 08:55 Vilazodone Hcl 10 Mg Tablet PO 10 mg DAILY ROMMEL Administration Allergies Allergies Allergy/AdvReac Type Severity Reaction Status Date / Time No Known Allergies Allergy Verified 10/01/20 08:19 [No Known Allergies*] Assessment & Plan Assessment & Plan (1) Anemia: Status: Acute Code(s): D64.9 - Anemia, unspecified (2) Major depressive disorder, recurrent, severe with psychotic features: Status: Acute Code(s): F33.3 - Major depressive disorder, recurrent, severe with psychotic symptoms (3) Physical deconditioning: Status: Acute Code(s): R53.81 - Other malaise Assessment and Plan: patient being exercised 2 times a day shift. Check hemoglobin and hematocrit to make sure there is no further GI bleeding. Eliquis currently on hold med consult regarding restarting Eliquis and ECT GI note read and appreciated encourage fluid case also reviewed with Dr. Landers Greater than 50% of the session was spent on counseling and/or coordination of care Reason for contiued inpatient stay Substantial Risk for: inability to function, rapid decompensation and med/psych decompensation
--- NOTE | 2020-11-06 | ECG_ITS ---
Test Reason : ECT CLEARANCE Blood Pressure : / mmHG Vent. Rate : 073 BPM Atrial Rate : 073 BPM P-R Int : 188 ms QRS Dur : 088 ms QT Int : 388 ms P-R-T Axes : 032 -21 023 degrees QTc Int : 427 ms Poor data quality, interpretation may be adversely affected Normal sinus rhythm Normal ECG When compared to the previous EKG of No significant changes seen Referred By: Nettie Monsalve Electronically Signed By:RAJIV RUIZ MD
[2020-11-06 06:05] VITALS: BP 101/56; PULSE 68; RESP 18; TEMP 36.6; O2SAT 96
[2020-11-06] MEDS: Omeprazole 40 MG CAPSULE.DR PO ×2 (06:51→17:04)
[2020-11-06 08:10] LABS: Hematocrit 32.7 % (42-52); Hemoglobin 10.6 g/dl (14.0-18.0); Mean Corpuscular HGB Conc 32.4 g/dl (31.0-36.0); Mean Corpuscular Hemoglobin 30.6 pg (27.0-33.0); Mean Corpuscular Volume 94.5 fL (80-98); Mean Platelet Volume 9.6 fL (9.4-12.4); Platelet Count 236 X10*3/uL (160-400); Red Blood Count 3.46 X10*6/uL (4.60-5.80); Red Cell Distribution Width 13.7 % (11.0-16.0); White Blood Count 4.5 X10*3/uL (4.8-10.8)
[2020-11-06] MEDS: Ferrous Sulfate 324 MG TABLET.DR PO (08:29)
[2020-11-06] MEDS: Finasteride 5 MG TABLET PO (08:29)
[2020-11-06] MEDS: DULoxetine HCl 20 MG CAPSULE.DR PO (08:29)
[2020-11-06] MEDS: Vilazodone HCL 10 MG TABLET PO (08:29)
[2020-11-06] MEDS: Docusate Sodium 100 MG CAPSULE PO ×2 (08:44→20:15)
[2020-11-06] MEDS: polyethylene glycoL 3350 17 GM POWD.PACK PO (08:44)
[2020-11-06 14:01] VITALS: BP 115/59; PULSE 96
[2020-11-06 14:03] VITALS: BP 111/65; PULSE 99
[2020-11-06 14:04] VITALS: BP 98/55; PULSE 106
--- NOTE | 2020-11-06 14:22 | PM.GIPN ---
Subjective Subjective Date of Service: 11/06/20 Interval History: no rectal bleeding eating well no nausea or vomiting Physical Exam Vital Signs: Vital Signs: Last Vital Signs Temp 97.9 F 11/06/20 06:05 Pulse 106 H 11/06/20 14:04 Resp 18 11/06/20 06:05 BP 98/55 L 11/06/20 14:04 Pulse Ox 96 11/06/20 06:05 Body Mass Index 24.7 Const: General: alert and awake Resp: Other: clear with good breath sounds Cardio: Other: normal s1, s2 no murmur GI: Other: abdomen is soft, nontender with good bowel sounds. Objective Data Labs CBC & Chem 7: 11/06/20 07:56 10/28/20 07:36 Labs: Laboratory Results - last 24 hr 11/06/20 07:56 WBC 4.5 L RBC 3.46 L Hgb 10.6 L Hct 32.7 L MCV 94.5 MCH 30.6 MCHC 32.4 RDW 13.7 Plt Count 236 MPV 9.6 Absolute Nucleated RBC 0.000 Nucleated RBC % (auto) 0.0 Progress Note: A&P Assessment and plan (1) GERD (gastroesophageal reflux disease): Status: Acute Assessment and Plan: doing well continue ppi no further rectal bleeding, can restart anticoagulation His GI issues should not interfere with ECT. Time Spent With Patient Time: Total time spent is greater than 50% in coordination of care (as documented) at patient's floor/unit and/or counseling patient: Time with patient: less than 15 minutes
[2020-11-06 16:00] VITALS: BP 112/58; PULSE 87
[2020-11-06 18:00] VITALS: TEMP 36.4
--- NOTE | 2020-11-06 19:31 | P.CONIM_ITS ---
History of Present Illness Data of Consult Service Date: 11/06/20 Requesting physician: Cooper Molina Primary Care Provider: Unknown Physician HPI Reason for consult: Medical management 75 year old man with history of GERD, anemia and HLD admitted to for behavioral health due to severe depression. He is scheduled for ECT tommorrow. His vitals signs are stable, he has no acute medical problems. Review of Systems Review of Systems: Denies any recent fever chills or decrease in appetite respiratory denies any shortness of breath coverage production cardiovascular is adjustment of any PND or edema gastrointestinal denies any dysphagia abdominal pain nausea vomiting or diarrhea genitourinary denies any dysuria frequency or hematuria musculoskeletal denies any joint pain or swelling neuropsych denies any weakness or seizures all other systems reviewed are negative [facility] Medical History Dementia Depression Diverticulitis of colon with perforation GERD (gastroesophageal reflux disease) HTN (hypertension) Hyperlipidemia Major depressive disorder, recurrent, severe with psychotic features Pulmonary embolism SVT (supraventricular tachycardia) Family History Brother Blood clot in vein Other No history of cardiac disorder Surgical History H/O hernia repair History of colostomy reversal Status post Paula's procedure Social History Household Members: Other Housing: Assisted Living Facility Alcohol intake: former Smoking Status: Never smoker Second Hand Smoke Exposure: No Advance Directives Date on File: 07/27/20 service: Yes ([employer]) Current occupational status: retired Sexual orientation: Straight/Heterosexual Meds Allergies Allergy/AdvReac Type Severity Reaction Status Date / Time No Known Allergies Allergy Verified 10/01/20 08:19 [No Known Allergies*] Physical Exam Vital Signs and Narrative: Vital Signs: Last Vital Signs Temp 97.9 F 11/06/20 06:05 Pulse 106 H 11/06/20 14:04 Resp 18 11/06/20 06:05 BP 98/55 L 11/06/20 14:04 Pulse Ox 96 11/06/20 06:05 Body Mass Index 24.7 Appearing in no acute distress head is normocephalic atraumatic eyes pupils are PERRLA sclera is anicteric mouth throat mucous membranes are intact and moist neck is supple no lymphadenopathy, no JVD noted lung sounds are clear to auscultation heart regular rate rhythm, clear S1, S2 positive bowel sounds, abdomen is soft, nontender neuro patient is alert x3, no focal deficits Results Labs CBC and Chem 7: 11/06/20 07:56 10/28/20 07:36 Labs: Laboratory Results - last 24 hr 11/06/20 07:56 MCV 94.5 MCH 30.6 MCHC 32.4 RDW 13.7 Plt Count 236 MPV 9.6 Absolute Nucleated RBC 0.000 Nucleated RBC % (auto) 0.0 Assessment and Plan (1) Major depressive disorder, recurrent, severe with psychotic features: Status: Acute (2) Anemia: Status: Acute (3) GERD (gastroesophageal reflux disease): Status: Acute 75-year-old man admitted to for [facility]. Patient has history of ECT. Denies history of aortic stenosis, asthma, COPD, atrial fibrillation, coronary artery disease, diabetes, hypertension, ICD, anticoagulation. CT. Unknown QTC. Suggest EKG prior to procedure. If normal QTC, no medical contraindications noted at this time. History of pulmonary embolus. Was off his Eliquis due to rectal bleeding. Continue on Eliquis and if patient has continued bleeding consider consulting Gastroenterology. Hyperlipidemia. Continue statin. Anemia. Continue iron supplementation.
[2020-11-06] MEDS: Apixaban 5 MG TABLET PO (20:15)
[2020-11-06] MEDS: Atorvastatin Calcium 80 MG TABLET PO (20:15)
[2020-11-06] MEDS: OLANZapine 10 MG TABLET PO (20:15)
--- NOTE | 2020-11-06 21:31 | P.PNPSI_ITS ---
Subjective Subjective Date of Service: 11/06/20 Reason For Visit: Major Depressive disorder Subjective Notes: Conditional Voluntary Interim History: patient flat agreeable to ECT tomorrow no more blood in the stool Medication Compliance: Yes Side effects from medications: No Attending Groups: Intermittent Mental Status Exam Mental Status Exam Narrative: improving mood and judgment full range of affect with able to engaged with others more Patient Appearance: Appropriate (ambilating with walker, in NAD) Patient Orientation: Person, Place and Situation Level of Consciousness: Alert Patient Behavior: Cooperative and Passive Behavior Comments: Mood Description: Calm ( okay ), Withdrawn, Depressed and Flat Affect Description: Calm (restricted in range but congruent with reported mood), Withdrawn, Blunted and Flat Patient Cognition Impaired: Yes Ability to Follow Directions: Good Speech Pattern: Clear, Spontaneous Speech (minimally spontaneous) and Soft- Spoken Memory Description: Remote Impaired and Immediate Impaired Diagnostics Vital Signs (24Hr): Vital Signs - 24 hr 11/06/20 06:05 11/06/20 14:01 11/06/20 14:03 Temperature 97.9 F Pulse Rate 68 96 99 Respiratory Rate 18 Blood Pressure 101/56 L 115/59 L 111/65 Pulse Oximetry 96 11/06/20 14:04 Temperature Pulse Rate 106 H Respiratory Rate Blood Pressure 98/55 L Pulse Oximetry Body Mass Index 24.7 Labs Results: 11/06/20 07:56 10/28/20 07:36 Labs: Laboratory Results - last 48 hr 11/06/20 07:56 WBC 4.5 L RBC 3.46 L Hgb 10.6 L Hct 32.7 L MCV 94.5 MCH 30.6 MCHC 32.4 RDW 13.7 Plt Count 236 MPV 9.6 Absolute Nucleated RBC 0.000 Nucleated RBC % (auto) 0.0 Imaging Radiology Impressions: ITS Impressions Chest X-Ray 10/10/20 00:00 IMPRESSION: Low lung volume. Faint linear opacity in the left midlung may be atelectasis. Barium Swallow X-Ray 11/01/20 00:00 IMPRESSION: Moderate hiatal hernia again noted. There is associated moderate to severe esophageal dysmotility, with significant stasis of contrast within the esophagus with the patient in the prone position. Medications Medications Current Medications Generic Name Dose Route Start Last Admin Trade Name Freq PRN Reason Stop Dose Admin Acetaminophen 650 mg 10/09/20 19:36 Acetaminophen Supp 650 Mg Supp.Rect [place] Q6H PRN Pain, Mild (Pain Scale 1-3) Acetaminophen 650 mg 10/09/20 19:37 Acetaminophen 325 Mg Tablet PO Q6H PRN Headache/Pain Mild Scale (1-3) Al Hydroxide/Mg Hydroxide 30 ml 10/09/20 19:37 Magnesium Hydrox/Alum Hydrox 30 Ml Oral.Susp PO Q6H PRN Heartburn/Nausea Apixaban 5 mg 10/09/20 21:00 11/06/20 20:15 Apixaban 5 Mg Tablet PO 5 mg BID ROMMEL Administration Atorvastatin Calcium 80 mg 10/09/20 21:00 11/06/20 20:15 Atorvastatin Calcium 80 Mg Tablet PO 80 mg BEDTIME ROMMEL Administration Docusate Sodium 100 mg 10/09/20 21:00 11/06/20 20:15 Docusate Sodium 100 Mg Capsule PO 100 mg BID ROMMEL Administration Ferrous Sulfate 324 mg 10/10/20 09:00 11/06/20 08:29 Ferrous Sulfate 324 Mg Tablet. PO 324 mg DAILY ROMMEL Administration Finasteride 5 mg 10/10/20 09:00 11/06/20 08:29 Finasteride 5 Mg Tablet PO 5 mg DAILY ROMMEL Administration Magnesium Hydroxide 30 ml 10/09/20 19:37 Milk Of Magnesia 30 Ml Oral.Susp PO DAILY PRN Constipation Olanzapine 10 mg 10/18/20 21:00 11/06/20 20:15 Olanzapine 10 Mg Tablet PO 10 mg BEDTIME ROMMEL Administration Olanzapine 2.5 mg 10/24/20 09:35 11/05/20 15:59 Olanzapine 2.5 Mg Tablet PO 2.5 mg BID PRN Administration Anxiety Omeprazole 40 mg 10/23/20 16:30 11/06/20 17:04 Omeprazole 40 Mg Capsule. PO 40 mg BID@0630,1630 ROMMEL Administration Ondansetron HCl 4 mg 10/27/20 19:54 10/28/20 08:41 Ondansetron Odt 4 Mg Tab.Rapdis TRANSLINGU 4 mg Q6H PRN Administration Vomiting Polyethylene Glycol 17 gm 10/10/20 09:00 11/06/20 08:44 Polyethylene Glycol 3350 17 Gm Powd.Pack PO 17 gm DAILY ROMMEL Administration Vilazodone HCl 10 mg 10/31/20 09:00 11/06/20 08:29 Vilazodone Hcl 10 Mg Tablet PO 10 mg DAILY ROMMEL Administration Allergies Allergies Allergy/AdvReac Type Severity Reaction Status Date / Time No Known Allergies Allergy Verified 10/01/20 08:19 [No Known Allergies*] Assessment & Plan Assessment & Plan (1) Anemia: Status: Acute Code(s): D64.9 - Anemia, unspecified (2) Major depressive disorder, recurrent, severe with psychotic features: Status: Acute Code(s): F33.3 - Major depressive disorder, recurrent, severe with psychotic symptoms Assessment and Plan: continue ECT discharge next day of stable Greater than 50% of the session was spent on counseling and/or coordination of care Reason for contiued inpatient stay Substantial Risk for: rapid decompensation
--- NOTE | 2020-11-06 21:41 | P.PNPSI_ITS ---
Subjective Subjective Date of Service: 11/06/20 Reason For Visit: Major Depressive disorder Subjective Notes: Conditional Voluntary Interim History: patient flat denies any blood in his stool getting stronger ambulating independently ECT tomorrow Medication Compliance: Yes Side effects from medications: No Attending Groups: Intermittent Mental Status Exam Mental Status Exam Narrative: improving mood and judgment full range of affect with able to engaged with others more Patient Appearance: Appropriate (ambilating with walker, in NAD) Patient Orientation: Person, Place and Situation Level of Consciousness: Alert Patient Behavior: Cooperative and Passive Behavior Comments: Mood Description: Calm ( okay ), Withdrawn, Depressed and Flat Affect Description: Calm (restricted in range but congruent with reported mood), Withdrawn, Blunted and Flat Patient Cognition Impaired: Yes Ability to Follow Directions: Good Speech Pattern: Clear, Spontaneous Speech (minimally spontaneous) and Soft- Spoken Memory Description: Remote Impaired and Immediate Impaired Diagnostics Vital Signs (24Hr): Vital Signs - 24 hr 11/06/20 06:05 11/06/20 14:01 11/06/20 14:03 Temperature 97.9 F Pulse Rate 68 96 99 Respiratory Rate 18 Blood Pressure 101/56 L 115/59 L 111/65 Pulse Oximetry 96 11/06/20 14:04 Temperature Pulse Rate 106 H Respiratory Rate Blood Pressure 98/55 L Pulse Oximetry Body Mass Index 24.7 Labs Results: 11/06/20 07:56 10/28/20 07:36 Labs: Laboratory Results - last 48 hr 11/06/20 07:56 WBC 4.5 L RBC 3.46 L Hgb 10.6 L Hct 32.7 L MCV 94.5 MCH 30.6 MCHC 32.4 RDW 13.7 Plt Count 236 MPV 9.6 Absolute Nucleated RBC 0.000 Nucleated RBC % (auto) 0.0 Imaging Radiology Impressions: ITS Impressions Chest X-Ray 10/10/20 00:00 IMPRESSION: Low lung volume. Faint linear opacity in the left midlung may be atelectasis. Barium Swallow X-Ray 11/01/20 00:00 IMPRESSION: Moderate hiatal hernia again noted. There is associated moderate to severe esophageal dysmotility, with significant stasis of contrast within the esophagus with the patient in the prone position. Medications Medications Current Medications Generic Name Dose Route Start Last Admin Trade Name Freq PRN Reason Stop Dose Admin Acetaminophen 650 mg 10/09/20 19:36 Acetaminophen Supp 650 Mg Supp.Rect VA Q6H PRN Pain, Mild (Pain Scale 1-3) Acetaminophen 650 mg 10/09/20 19:37 Acetaminophen 325 Mg Tablet PO Q6H PRN Headache/Pain Mild Scale (1-3) Al Hydroxide/Mg Hydroxide 30 ml 10/09/20 19:37 Magnesium Hydrox/Alum Hydrox 30 Ml Oral.Susp PO Q6H PRN Heartburn/Nausea Apixaban 5 mg 10/09/20 21:00 11/06/20 20:15 Apixaban 5 Mg Tablet PO 5 mg BID ROMMEL Administration Atorvastatin Calcium 80 mg 10/09/20 21:00 11/06/20 20:15 Atorvastatin Calcium 80 Mg Tablet PO 80 mg BEDTIME ROMMEL Administration Docusate Sodium 100 mg 10/09/20 21:00 11/06/20 20:15 Docusate Sodium 100 Mg Capsule PO 100 mg BID ROMMEL Administration Ferrous Sulfate 324 mg 10/10/20 09:00 11/06/20 08:29 Ferrous Sulfate 324 Mg Tablet. PO 324 mg DAILY ROMMEL Administration Finasteride 5 mg 10/10/20 09:00 11/06/20 08:29 Finasteride 5 Mg Tablet PO 5 mg DAILY ROMMEL Administration Magnesium Hydroxide 30 ml 10/09/20 19:37 Milk Of Magnesia 30 Ml Oral.Susp PO DAILY PRN Constipation Olanzapine 10 mg 10/18/20 21:00 11/06/20 20:15 Olanzapine 10 Mg Tablet PO 10 mg BEDTIME ROMMEL Administration Olanzapine 2.5 mg 10/24/20 09:35 11/05/20 15:59 Olanzapine 2.5 Mg Tablet PO 2.5 mg BID PRN Administration Anxiety Omeprazole 40 mg 10/23/20 16:30 11/06/20 17:04 Omeprazole 40 Mg Capsule. PO 40 mg BID@0630,1630 ROMMEL Administration Ondansetron HCl 4 mg 10/27/20 19:54 10/28/20 08:41 Ondansetron Odt 4 Mg Tab.Rapdis TRANSLINGU 4 mg Q6H PRN Administration Vomiting Polyethylene Glycol 17 gm 10/10/20 09:00 11/06/20 08:44 Polyethylene Glycol 3350 17 Gm Powd.Pack PO 17 gm DAILY ROMMEL Administration Vilazodone HCl 10 mg 10/31/20 09:00 11/06/20 08:29 Vilazodone Hcl 10 Mg Tablet PO 10 mg DAILY ROMMEL Administration Allergies Allergies Allergy/AdvReac Type Severity Reaction Status Date / Time No Known Allergies Allergy Verified 10/01/20 08:19 [No Known Allergies*] Assessment & Plan Assessment & Plan (1) Major depressive disorder, recurrent, severe with psychotic features: Status: Acute Code(s): F33.3 - Major depressive disorder, recurrent, severe with psychotic symptoms Assessment and Plan: ect main bajwa Greater than 50% of the session was spent on counseling and/or coordination of care Reason for contiued inpatient stay Substantial Risk for: inability to function
[2020-11-07] VITALS (8 sets, daily range): BP systolic 110–152; BP diastolic 57–89; PULSE 64–100; RESP 14–18; TEMP 36.8–37.2; O2SAT 93–99; BMI 25.9
--- NOTE | 2020-11-07 04:35 | PC.NURSE ---
0430:DR PUENTES WAS NOTIFIED THAT PT NEEDED TO BE MEDICALLY CLEARED. DR PUENTES STATED THAT HE WAS UNABLE TO DO THAT DURING THIS SHIFT.
--- NOTE | 2020-11-07 08:19 | P.EN_ITS ---
Event Note Date of Service: 11/07/20 Event Note: Chart reviewed, seen during this visit and cleared by myself, card ilogy and Neurology for ECT, no interim change. His hematocrit is stable on anticoagulation. No further testing at this before planned ECT. Full note to follow. Thanks
--- NOTE | 2020-11-07 08:49 | HO.ANESPROP2 ---
[facility] Past Medical History Medical History Dementia Depression Diverticulitis of colon with perforation GERD (gastroesophageal reflux disease) HTN (hypertension) Hyperlipidemia Major depressive disorder, recurrent, severe with psychotic features Pulmonary embolism SVT (supraventricular tachycardia) Family History Family History Brother Blood clot in vein Other No history of cardiac disorder Surgical History Surgical History H/O hernia repair History of colostomy reversal Status post Paula's procedure Social History Social History Household Members: Other Housing: Assisted Living Facility Alcohol intake: former Smoking Status: Never smoker Second Hand Smoke Exposure: No Advance Directives Date on File: 07/27/20 service: Yes ([employer]) Current occupational status: retired Sexual orientation: Straight/Heterosexual Meds Allergies Allergy/AdvReac Type Severity Reaction Status Date / Time No Known Allergies Allergy Verified 10/01/20 08:19 [No Known Allergies*] Home Medications Medication Instructions Recorded Confirmed Type doxazosin 2 mg PO DAILY 07/26/20 10/07/20 History olanzapine 20 mg PO BEDTIME 07/26/20 10/07/20 History duloxetine [Cymbalta] 40 mg PO DAILY 10/07/20 10/07/20 History lorazepam 0.5 mg PO TID 10/07/20 10/07/20 History Exam Exam Date and Time: November 07, 2020 0849 Height,Weight and Vital Signs: Height 5 ft 10.87 in Weight 80 kg Last Vital Signs Temp 99 F 11/07/20 05:42 Pulse 76 11/07/20 05:42 Resp 16 11/07/20 05:42 BP 110/57 L 11/07/20 05:42 Pulse Ox 96 11/07/20 05:42 Pertinent Lab Results Pertinent Lab Results: Laboratory Tests 10/11/20 10/14/20 10/14/20 08:25 15:58 15:58 WBC 4.4 L 4.0 L RBC 3.43 L 3.10 L Hgb 10.9 L 9.7 L Hct 32.4 L 28.9 L MCV 94.5 93.2 MCH 31.8 31.3 MCHC 33.6 33.6 RDW 13.2 13.3 Plt Count 147 L 169 MPV 8.7 L 8.8 L Immature Gran % (Auto) 0.5 H 0.2 Neut % (Auto) 69.5 71.1 Lymph % (Auto) 15.6 L 17.1 L Woodson % (Auto) 14.2 H 10.4 Eos % (Auto) 0.2 1.0 Baso % (Auto) 0.0 0.2 Lymph # (Auto) 0.7 L 0.7 L Woodson # (Auto) 0.6 0.4 Eos # (Auto) 0.0 0.0 Baso # (Auto) 0.0 0.0 Abs Immat Gran (auto) 0.02 0.01 Absolute Neuts (auto) 3.0 2.9 Absolute Nucleated RBC 0.000 0.000 Nucleated RBC % (auto) 0.0 0.0 Smear Tech's Comments VERIFIED VERIFIED Sodium 139 Potassium 3.4 Chloride 106 Carbon Dioxide 25 Anion Gap 11 L BUN 26 H Creatinine 0.73 Estim Creat Clear Calc 87.5 Estimated GFR > 60 Random Glucose 139 H Fasting Glucose Calcium 7.4 L D Total Bilirubin AST ALT Alkaline Phosphatase Total Protein Albumin Amylase Lipase Stool Occult Blood 10/15/20 10/16/20 10/16/20 07:28 09:56 09:56 WBC 4.8 3.6 L RBC 3.07 L 3.14 L Hgb 9.7 L 9.8 L Hct 28.8 L 29.5 L MCV 93.8 93.9 MCH 31.6 31.2 MCHC 33.7 33.2 RDW 13.2 13.3 Plt Count 192 198 MPV 8.9 L 8.7 L Immature Gran % (Auto) 0.4 0.6 H Neut % (Auto) 72.6 74.1 H Lymph % (Auto) 15.6 L 15.0 L Woodson % (Auto) 10.2 8.1 Eos % (Auto) 1.0 1.9 Baso % (Auto) 0.2 0.3 Lymph # (Auto) 0.8 L 0.5 L Woodson # (Auto) 0.5 0.3 Eos # (Auto) 0.1 0.1 Baso # (Auto) 0.0 0.0 Abs Immat Gran (auto) 0.02 0.02 Absolute Neuts (auto) 3.5 2.7 Absolute Nucleated RBC 0.000 0.000 Nucleated RBC % (auto) 0.0 0.0 Smear Tech's Comments VERIFIED Sodium 141 Potassium 3.5 Chloride 108 Carbon Dioxide 27 Anion Gap 10 L BUN 14 Creatinine 0.78 Estim Creat Clear Calc 81.8 Estimated GFR > 60 Random Glucose 132 H Fasting Glucose Calcium 7.7 L Total Bilirubin AST ALT Alkaline Phosphatase Total Protein Albumin Amylase Lipase Stool Occult Blood 10/16/20 10/17/20 10/17/20 Unknown 16:50 16:50 WBC 4.9 RBC 3.26 L Hgb 10.2 L Hct 30.9 L MCV 94.8 MCH 31.3 MCHC 33.0 RDW 13.2 Plt Count 230 MPV 9.4 Immature Gran % (Auto) 0.4 Neut % (Auto) 68.3 Lymph % (Auto) 15.5 L Woodson % (Auto) 13.6 H Eos % (Auto) 2.0 Baso % (Auto) 0.2 Lymph # (Auto) 0.8 L Woodson # (Auto) 0.7 Eos # (Auto) 0.1 Baso # (Auto) 0.0 Abs Immat Gran (auto) 0.02 Absolute Neuts (auto) 3.4 Absolute Nucleated RBC 0.000 Nucleated RBC % (auto) 0.0 Smear Tech's Comments Sodium 143 Potassium 3.7 Chloride 107 Carbon Dioxide 28 Anion Gap 12 BUN 18 H Creatinine 0.85 Estim Creat Clear Calc 75.1 Estimated GFR > 60 Random Glucose 117 H Fasting Glucose Calcium 7.8 L Total Bilirubin AST ALT Alkaline Phosphatase Total Protein Albumin Amylase Lipase Stool Occult Blood POS 10/19/20 10/19/20 10/19/20 15:49 15:49 19:17 WBC 4.3 L RBC 3.05 L Hgb 9.5 L Hct 29.0 L MCV 95.1 MCH 31.1 MCHC 32.8 RDW 13.4 Plt Count 236 MPV 8.6 L Immature Gran % (Auto) 0.5 H Neut % (Auto) 63.7 Lymph % (Auto) 19.2 L Woodson % (Auto) 13.8 H Eos % (Auto) 2.6 Baso % (Auto) 0.2 Lymph # (Auto) 0.8 L Woodson # (Auto) 0.6 Eos # (Auto) 0.1 Baso # (Auto) 0.0 Abs Immat Gran (auto) 0.02 Absolute Neuts (auto) 2.7 Absolute Nucleated RBC 0.000 Nucleated RBC % (auto) 0.0 Smear Tech's Comments Sodium 141 Potassium 3.7 Chloride 108 Carbon Dioxide 27 Anion Gap 10 L BUN 19 H Creatinine 0.91 Estim Creat Clear Calc 70.1 Estimated GFR > 60 Random Glucose 146 H Fasting Glucose Calcium 7.6 L Total Bilirubin AST ALT Alkaline Phosphatase Total Protein Albumin Amylase Lipase Stool Occult Blood POS 10/24/20 10/24/20 10/28/20 13:07 13:07 07:36 WBC 5.8 RBC 3.44 L Hgb 10.7 L Hct 32.5 L MCV 94.5 MCH 31.1 MCHC 32.9 RDW 13.4 Plt Count 271 MPV 8.5 L Immature Gran % (Auto) 0.3 Neut % (Auto) 66.7 Lymph % (Auto) 18.4 L Woodson % (Auto) 12.9 H Eos % (Auto) 1.4 Baso % (Auto) 0.3 Lymph # (Auto) 1.1 L Woodson # (Auto) 0.8 Eos # (Auto) 0.1 Baso # (Auto) 0.0 Abs Immat Gran (auto) 0.02 Absolute Neuts (auto) 3.9 Absolute Nucleated RBC 0.000 Nucleated RBC % (auto) 0.0 Smear Tech's Comments Sodium 142 143 Potassium 4.0 4.2 Chloride 109 H 107 Carbon Dioxide 27 28 Anion Gap 10 L 12 BUN 14 19 H Creatinine 0.89 1.00 Estim Creat Clear Calc 71.7 63.8 Estimated GFR > 60 > 60 Random Glucose 108 Fasting Glucose 100 H Calcium 8.3 L D 8.9 D Total Bilirubin 0.7 AST 38 H D ALT 38 Alkaline Phosphatase 145 H D Total Protein 6.2 L Albumin 3.6 Amylase Lipase Stool Occult Blood 10/28/20 10/28/20 10/28/20 07:36 07:36 07:36 WBC 4.7 L RBC 3.64 L Hgb 11.4 L Hct 34.9 L MCV 95.9 MCH 31.3 MCHC 32.7 RDW 13.7 Plt Count 288 MPV 9.0 L Immature Gran % (Auto) 0.4 Neut % (Auto) 67.7 Lymph % (Auto) 18.0 L Woodson % (Auto) 10.7 Eos % (Auto) 2.8 Baso % (Auto) 0.4 Lymph # (Auto) 0.8 L Woodson # (Auto) 0.5 Eos # (Auto) 0.1 Baso # (Auto) 0.0 Abs Immat Gran (auto) 0.02 Absolute Neuts (auto) 3.2 Absolute Nucleated RBC 0.000 Nucleated RBC % (auto) 0.0 Smear Tech's Comments Sodium Potassium Chloride Carbon Dioxide Anion Gap BUN Creatinine Estim Creat Clear Calc Estimated GFR Random Glucose Fasting Glucose Calcium Total Bilirubin AST ALT Alkaline Phosphatase Total Protein Albumin Amylase 104 H Lipase 70 Stool Occult Blood 11/02/20 11/04/20 11/06/20 09:17 08:22 07:56 WBC 5.5 5.4 4.5 L RBC 3.73 L 3.40 L 3.46 L Hgb 11.4 L 10.6 L 10.6 L Hct 36.1 L 31.9 L 32.7 L MCV 96.8 93.8 94.5 MCH 30.6 31.2 30.6 MCHC 31.6 33.2 32.4 RDW 13.7 13.6 13.7 Plt Count 326 239 D 236 MPV 8.9 L 8.5 L 9.6 Immature Gran % (Auto) 0.4 0.2 Neut % (Auto) 61.3 63.9 Lymph % (Auto) 23.5 21.1 Woodson % (Auto) 11.1 H 12.0 H Eos % (Auto) 3.3 2.6 Baso % (Auto) 0.4 0.2 Lymph # (Auto) 1.3 1.1 L Woodson # (Auto) 0.6 0.7 Eos # (Auto) 0.2 0.1 Baso # (Auto) 0.0 0.0 Abs Immat Gran (auto) 0.02 0.01 Absolute Neuts (auto) 3.4 3.5 Absolute Nucleated RBC 0.000 0.000 0.000 Nucleated RBC % (auto) 0.0 0.0 0.0 Smear Tech's Comments Sodium Potassium Chloride Carbon Dioxide Anion Gap BUN Creatinine Estim Creat Clear Calc Estimated GFR Random Glucose Fasting Glucose Calcium Total Bilirubin AST ALT Alkaline Phosphatase Total Protein Albumin Amylase Lipase Stool Occult Blood Airway Mallampati Class: II TM Dist: >3cm Neck ROM: Full Denture: Upper Heart: RRr Lungs: CTAcBL Assessment and Plan Assessment Anesthesia Assessment: Anesthesia Plan Discussed and Chart Reviewed Final Anesthetic Review NPO: Yes ASA Class: III Final Preanesthetic Review: Meds/Sohamgs Chart Reviewed and Consent Obtained/Reviewed Patient Risk: Intermediate Procedure Risk: Intermediate Anesthetic Plan Anesthetic Plan: GA Disposition: Standard PACU
--- NOTE | 2020-11-07 09:45 | HO.POSTANES ---
Post Anesthesia Evaluation Post Anesthesia Evaluation Vital Signs: Vital Signs Temp Pulse Resp BP Pulse Ox 11/07/20 09:28 95 17 130/73 93 11/07/20 09:23 98.5 F 64 14 150/76 H 99 11/07/20 08:53 98.2 F 100 18 152/89 H 98 11/07/20 05:42 99 F 76 16 110/57 L 96 11/07/20 05:35 99.0 F 76 16 110/57 L 96 Anesthesia: General Mental Status: Awake Pain Control: Satisfactory Nausea/Vomiting: None Hydration: Adequate Anesthesia-Related Issues: No Anes. Related Issues
[2020-11-07] MEDS: Ferrous Sulfate 324 MG TABLET.DR PO (10:48)
[2020-11-07] MEDS: Finasteride 5 MG TABLET PO (10:48)
[2020-11-07] MEDS: Apixaban 5 MG TABLET PO ×2 (10:48→21:52)
[2020-11-07] MEDS: polyethylene glycoL 3350 17 GM POWD.PACK PO (10:48)
[2020-11-07] MEDS: Docusate Sodium 100 MG CAPSULE PO ×2 (10:48→21:52)
[2020-11-07] MEDS: Omeprazole 40 MG CAPSULE.DR PO ×2 (10:50→17:40)
--- NOTE | 2020-11-07 16:51 | PC.NURSE ---
received covid 19 vaccination at 1651 today given in r deltoid, will need second injection in 28 days. will be sent home with vaccination card and information. pt is afebrile and signed consent form.
--- NOTE | 2020-11-07 21:48 | HO.ECTPROC ---
ECT Procedure Note Diagnosis/Treatment Diagnosis: Major Depressive Disorder Current Treatment Number: 8 Treatment: Series Interval Clinical Notes: pt feeling somewhat better ECT Settings Device: THYMATRON DGx Electrode Placement: Right Unilateral Program/Pulse Width: 0.50 Energy Percent: 100 Medications Administration General Anesthetic: Etomidate (12) Muscle Relaxant: Succinylcholine (100) Ancillary Medications Anti-emetics: Zofran - Pre ECT Cardiovascular Medications: Labetolol (10 mg) Miscillaneous Medications: Flumazenil Airway Management Airway Management: Bag Mask Ventilation
[2020-11-07] MEDS: OLANZapine 10 MG TABLET PO (21:52)
[2020-11-07] MEDS: Atorvastatin Calcium 80 MG TABLET PO (21:52)
--- NOTE | 2020-11-07 21:58 | P.PNPSI_ITS ---
Subjective Subjective Date of Service: 11/07/20 Reason For Visit: Major Depressive disorder Subjective Notes: Conditional Voluntary Interim History: pt did well with ect stable for d/c tomm Medication Compliance: Yes Side effects from medications: No Mental Status Exam Mental Status Exam Narrative: improving mood and judgment full range of affect with able to engaged with others more Patient Appearance: Appropriate (ambilating with walker, in NAD) Patient Orientation: Person, Place and Situation Level of Consciousness: Alert Patient Behavior: Cooperative and Passive Behavior Comments: Mood Description: Calm ( okay ), Withdrawn, Depressed and Flat Affect Description: Calm (restricted in range but congruent with reported mood), Withdrawn, Blunted and Flat Patient Cognition Impaired: Yes Ability to Follow Directions: Good Speech Pattern: Clear, Spontaneous Speech (minimally spontaneous) and Soft- Spoken Memory Description: Remote Impaired and Immediate Impaired Diagnostics Vital Signs (24Hr): Vital Signs - 24 hr 11/07/20 05:35 11/07/20 05:42 11/07/20 08:53 Temperature 99.0 F 99 F 98.2 F Pulse Rate 76 76 100 Respiratory Rate 16 16 18 Blood Pressure 110/57 L 110/57 L 152/89 H Pulse Oximetry 96 96 98 11/07/20 09:23 11/07/20 09:28 11/07/20 09:33 Temperature 98.5 F Pulse Rate 64 95 93 Respiratory Rate 14 17 17 Blood Pressure 150/76 H 130/73 115/76 Pulse Oximetry 99 93 95 11/07/20 09:50 11/07/20 10:05 Temperature 98.3 F Pulse Rate 90 83 Respiratory Rate 17 17 Blood Pressure 120/85 130/82 Pulse Oximetry 94 96 Body Mass Index 25.9 Labs Results: 11/06/20 07:56 10/28/20 07:36 Labs: Laboratory Results - last 48 hr 11/06/20 07:56 WBC 4.5 L RBC 3.46 L Hgb 10.6 L Hct 32.7 L MCV 94.5 MCH 30.6 MCHC 32.4 RDW 13.7 Plt Count 236 MPV 9.6 Absolute Nucleated RBC 0.000 Nucleated RBC % (auto) 0.0 Imaging Radiology Impressions: ITS Impressions Chest X-Ray 10/10/20 00:00 IMPRESSION: Low lung volume. Faint linear opacity in the left midlung may be atelectasis. Barium Swallow X-Ray 11/01/20 00:00 IMPRESSION: Moderate hiatal hernia again noted. There is associated moderate to severe esophageal dysmotility, with significant stasis of contrast within the esophagus with the patient in the prone position. Medications Medications Current Medications Generic Name Dose Route Start Last Admin Trade Name Freq PRN Reason Stop Dose Admin Acetaminophen 650 mg 10/09/20 19:36 Acetaminophen Supp 650 Mg Supp.Rect MA Q6H PRN Pain, Mild (Pain Scale 1-3) Acetaminophen 650 mg 10/09/20 19:37 Acetaminophen 325 Mg Tablet PO Q6H PRN Headache/Pain Mild Scale (1-3) Acetaminophen 650 mg 11/07/20 08:48 Acetaminophen 325 Mg Tablet PO ONCE PRN Pain, Mild (Pain Scale 1-3) Al Hydroxide/Mg Hydroxide 30 ml 10/09/20 19:37 Magnesium Hydrox/Alum Hydrox 30 Ml Oral.Susp PO Q6H PRN Heartburn/Nausea Apixaban 5 mg 10/09/20 21:00 11/07/20 10:48 Apixaban 5 Mg Tablet PO 5 mg BID ROMMEL Administration Atorvastatin Calcium 80 mg 10/09/20 21:00 11/06/20 20:15 Atorvastatin Calcium 80 Mg Tablet PO 80 mg BEDTIME ROMMEL Administration Docusate Sodium 100 mg 10/09/20 21:00 11/07/20 10:48 Docusate Sodium 100 Mg Capsule PO 100 mg BID ROMMEL Administration Ferrous Sulfate 324 mg 10/10/20 09:00 11/07/20 10:48 Ferrous Sulfate 324 Mg Tablet. PO 324 mg DAILY ROMMEL Administration Finasteride 5 mg 10/10/20 09:00 11/07/20 10:48 Finasteride 5 Mg Tablet PO 5 mg DAILY ROMMEL Administration Lactated Ringer's 1,000 mls @ 100 mls/hr 11/07/20 09:00 11/07/20 10:49 Lr IVCONT Not Given .Q10H ROMMEL Sodium Chloride 1,000 mls @ 100 mls/hr 11/07/20 09:00 11/07/20 10:47 Ns IVCONT Not Given .Q10H ROMMEL Lactated Ringer's 1,000 mls @ 100 mls/hr 11/07/20 09:00 11/07/20 10:48 Lr IVCONT Not Given .Q10H ROMMEL Magnesium Hydroxide 30 ml 10/09/20 19:37 Milk Of Magnesia 30 Ml Oral.Susp PO DAILY PRN Constipation Olanzapine 10 mg 10/18/20 21:00 11/06/20 20:15 Olanzapine 10 Mg Tablet PO 10 mg BEDTIME ROMMEL Administration Olanzapine 2.5 mg 10/24/20 09:35 11/05/20 15:59 Olanzapine 2.5 Mg Tablet PO 2.5 mg BID PRN Administration Anxiety Omeprazole 40 mg 10/23/20 16:30 11/07/20 17:40 Omeprazole 40 Mg Capsule.Dr PO 40 mg BID@0630,1630 ROMMEL Administration Ondansetron HCl 4 mg 10/27/20 19:54 10/28/20 08:41 Ondansetron Odt 4 Mg Tab.Rapdis TRANSLINGU 4 mg Q6H PRN Administration Vomiting Polyethylene Glycol 17 gm 10/10/20 09:00 11/07/20 10:48 Polyethylene Glycol 3350 17 Gm Powd.Pack PO 17 gm DAILY ROMMEL Administration Vilazodone HCl 10 mg 10/31/20 09:00 11/07/20 12:29 Vilazodone Hcl 10 Mg Tablet PO Not Given DAILY ROMMEL Allergies Allergies Allergy/AdvReac Type Severity Reaction Status Date / Time No Known Allergies Allergy Verified 10/01/20 08:19 [No Known Allergies*] Assessment & Plan Assessment & Plan (1) Major depressive disorder, recurrent, severe with psychotic features: Status: Acute Code(s): F33.3 - Major depressive disorder, recurrent, severe with psychotic symptoms Assessment and Plan: d/c tomm pt stable (2) Physical deconditioning: Status: Acute Code(s): R53.81 - Other malaise Greater than 50% of the session was spent on counseling and/or coordination of care Reason for contiued inpatient stay Substantial Risk for: med/psych decompensation
[2020-11-08 06:36] VITALS: BP 110/52; PULSE 82; RESP 16; TEMP 37.2; O2SAT 96
[2020-11-08 08:00] VITALS: BP 111/74; PULSE 84
[2020-11-08] MEDS: 0.9 % Sodium Chloride 1,000 ML 100 ML IVCONT (08:48)
[2020-11-08] MEDS: Vilazodone HCL 10 MG TABLET PO (08:49)
[2020-11-08] MEDS: Docusate Sodium 100 MG CAPSULE PO (08:49)
[2020-11-08] MEDS: Ferrous Sulfate 324 MG TABLET.DR PO (08:49)
[2020-11-08] MEDS: polyethylene glycoL 3350 17 GM POWD.PACK PO (08:49)
[2020-11-08] MEDS: Apixaban 5 MG TABLET PO (08:50)
[2020-11-08] MEDS: Omeprazole 40 MG CAPSULE.DR PO (08:50)
[2020-11-08] MEDS: Finasteride 5 MG TABLET PO (08:50)
[2020-11-08 10:26] LABS: COVID-19 Test Positive (Negative)
[2020-11-08 14:17] LABS: Influenza A PCR NEGATIVE (Negative); Influenza B PCR NEGATIVE (Negative); Resp Syncy Virus RNA Qual PCR NEGATIVE (Negative); SARS COV2 PCR INHOUSE POSITIVE (Negative)
--- NOTE | 2020-11-08 21:24 | P.DS_ITS ---
DS: Providers Provider Date of Service: 11/08/20 Date of admission: 10/09/20 19:14 Primary care physician: DR AWAN Consults: 10/14/20 13:42 Consult to Internal Medicine Routine Consulting Provider: Lito Wild Reason for consultation: hypotensive; recs on BP medication 10/16/20 17:38 Consult to Gastroenterology Routine Consulting Provider: Iftikhar Ramirez Reason for consultation: anemia guaiac pos stools need help to manage on eloquis 10/28/20 12:52 Consult to Gastroenterology Routine Consulting Provider: Jose Alejandro Mckenna Reason for consultation: vomiting x 2 days Has provider been notified: Yes 11/05/20 22:01 Consult to Hospitalist Routine Consulting Provider: Hospitalist DS: Diagnosis Discharge Diagnosis (1) Major depressive disorder, recurrent, severe with psychotic features: Status: Acute Problem details: PATIENT SHOWED SIGNIFICANT IMPROVEMENT IN MOOD ALERTNESS AND ABILITY TO FUNCTION WAS NO LONGER CATATONIC (2) Anemia: Status: Acute Problem details: NO FURTHER EVIDENCE OF ACUTE BLEEDING HAS FOLLOW-UP WITH DR. MCKENNA GASTROENTEROLOGY (3) GERD (gastroesophageal reflux disease): Status: Acute DS: Medications Discharge Medications Home Medications: Previous Rx's Medication Instructions Recorded Eliquis 5 mg PO BID #60 tab 10/30/20 atorvastatin 80 mg PO BEDTIME #30 tab 10/30/20 docusate sodium [Colace] 100 mg PO BID 60 Days #120 cap 10/30/20 ferrous sulfate 325 mg PO DAILY 30 Days #30 tab 10/30/20 finasteride 5 mg PO DAILY 30 Days #30 tab 10/30/20 olanzapine 2.5 mg PO BID PRN 30 Days #60 tab 10/30/20 olanzapine 10 mg PO BEDTIME 30 Days #30 tab 10/30/20 omeprazole 40 mg PO BID@0630,1630 30 Days #60 10/30/20 cap oxybutynin chloride 5 mg PO DAILY 30 Days #30 tab 10/30/20 polyethylene glycol 3350 [Miralax] 17 g PO DAILY 30 Days ea 10/30/20 trazodone 50 mg PO BEDTIME 30 Days #30 tab 10/30/20 vilazodone [Viibryd] 10 mg PO DAILY 30 Days #30 tab 10/30/20 apixaban [Eliquis] 5 mg PO BID 30 Days #60 tab 11/07/20 atorvastatin 80 mg PO BEDTIME 30 Days #30 tab 11/07/20 olanzapine 10 mg PO BEDTIME #30 tab 11/07/20 vilazodone [Viibryd] 10 mg PO DAILY #30 tab 11/07/20 Discharge Plan Discharge Patient Disposition: Xfer Other Referrals: Cooper Molina MD [Other] - 12/05/20 6:30 am (ECT at [facility] ) [facility]: 2nd COVID Vaccine [Other] - 12/05/20 9:30 am (2nd Moderna vaccine due ) Cooper Molina MD [Physician] - 11/14/20 6:30 am (ECT at [facility] ) Jose Alejandro Mckenna [Physician] - 12/26/20 11:35 am Myron Awan MD [Physician] - 11/21/20 11:00 am (via phone) Discharge Medications: New olanzapine 10 mg Tablet 10 mg PO BEDTIME 30 Days Qty: 30 RF: 0 olanzapine 2.5 mg Tablet 2.5 mg PO BID PRN (Reason: Anxiety) 30 Days Qty: 60 RF: 0 Viibryd 10 mg Tablet 10 mg PO DAILY 30 Days Qty: 30 RF: 0 omeprazole 40 mg Capsule,Delayed Release(Dr/Ec) 40 mg PO BID@0630,1630 30 Days Qty: 60 RF: 0 Eliquis 5 mg Tablet 5 mg PO BID 30 Days Qty: 60 RF: 0 atorvastatin 80 mg Tablet 80 mg PO BEDTIME 30 Days Qty: 30 RF: 0 Viibryd 10 mg tablet 10 mg PO DAILY Qty: 30 RF: 0 olanzapine 10 mg tablet 10 mg PO BEDTIME Qty: 30 RF: 0 Continued atorvastatin 80 mg Tablet 80 mg PO BEDTIME Qty: 30 RF: 0 trazodone 50 mg Tablet 50 mg PO BEDTIME 30 Days Qty: 30 RF: 0 polyethylene glycol 3350 [Miralax] 17 gram Powder In Packet 17 g PO DAILY 30 Days RF: 0 ferrous sulfate 325 mg (65 mg iron) Tablet 325 mg PO DAILY 30 Days Qty: 30 RF: 0 docusate sodium [Colace] 100 mg Capsule 100 mg PO BID 60 Days Qty: 120 RF: 0 oxybutynin chloride 5 mg tablet 5 mg PO DAILY 30 Days Qty: 30 RF: 0 finasteride 5 mg Tablet 5 mg PO DAILY 30 Days Qty: 30 RF: 0 Eliquis 5 mg tablet 5 mg PO BID Qty: 60 RF: 0 Discontinued olanzapine 10 mg tablet 20 mg PO BEDTIME RF: 0 doxazosin 2 mg tablet 2 mg PO DAILY RF: 0 duloxetine [Cymbalta] 20 mg Capsule,Delayed Release(Dr/Ec) 40 mg PO DAILY RF: 0 lorazepam 0.5 mg Tablet 0.5 mg PO TID RF: 0 Discharge Orders: Discharge Order (Routine); Ordered 11/08/20 Ordered By: Cooper Molina Diet: advance to usual diet Activity on Discharge: As tolerated Stand Alone Forms: Patient Portal Discharge page, Community Support Care Plan Goals: STABLE MOOD IMPROVED FUNCTIONING NO BLEEDING Health Concerns: DEPRESSION HX PULMONARY EMBOLISM REFLUX COLON POLYPS REMOVED ESOPHAGITIS RECTAL BLEEDING Plan of Treatment: ECT PSYCHIATRIC FOLLOW UP VIIBRYD ZYPREXA MEDICAL FOLLOW UP GI FOLLOW UP Discharge Date/Time: 11/08/20 15:58 Mental Status Exam Mental Status Exam Narrative: improving mood and judgment full range of affect with able to engaged with others more Patient Appearance: Appropriate (ambilating with walker, in NAD) Patient Orientation: Person, Place and Situation Level of Consciousness: Alert Patient Behavior: Cooperative and Passive Behavior Comments: Mood Description: Calm ( okay ), Appropriate, Flat and Apprehensive Affect Description: Calm (restricted in range but congruent with reported mood), Withdrawn, Blunted and Flat Patient Cognition Impaired: Yes Ability to Follow Directions: Good Speech Pattern: Clear, Spontaneous Speech (minimally spontaneous) and Soft-Spo chika Memory Description: Remote Impaired and Immediate Impaired Hallucinations: None Delusions: Not Present Thought Process: Intact Thought Content: positive for Linear, positive for Slowed Thinking, negative for Suicidal Ideation and negative for Homicidal Ideation Depressive Symptoms: Increased Anxiety Judgement: Good Data Data Completed and Pending Completed studies during hospitalization [Text1]: 11/02/20 11/04/20 11/06/20 09:17 08:22 07:56 WBC 5.5 5.4 4.5 L RBC 3.73 L 3.40 L 3.46 L Hgb 11.4 L 10.6 L 10.6 L Hct 36.1 L 31.9 L 32.7 L MCV 96.8 93.8 94.5 MCH 30.6 31.2 30.6 MCHC 31.6 33.2 32.4 RDW 13.7 13.6 13.7 Plt Count 326 239 D 236 MPV 8.9 L 8.5 L 9.6 Immature Gran % (Auto) 0.4 0.2 Neut % (Auto) 61.3 63.9 Lymph % (Auto) 23.5 21.1 [place] % (Auto) 11.1 H 12.0 H Eos % (Auto) 3.3 2.6 Baso % (Auto) 0.4 0.2 Lymph # (Auto) 1.3 1.1 L [place] # (Auto) 0.6 0.7 Eos # (Auto) 0.2 0.1 Baso # (Auto) 0.0 0.0 Abs Immat Gran (auto) 0.02 0.01 Absolute Neuts (auto) 3.4 3.5 Absolute Nucleated RBC 0.000 0.000 0.000 Nucleated RBC % (auto) 0.0 0.0 0.0 Coronavirus (PCR) COVID-19 ([facility]) COVID-19 Clin Com Influenza Type A (PCR) Influenza Type B (PCR) RSV RNA Qual (PCR) 11/08/20 11/08/20 10:04 13:30 WBC RBC Hgb Hct MCV MCH MCHC RDW Plt Count MPV Immature Gran % (Auto) Neut % (Auto) Lymph % (Auto) [place] % (Auto) Eos % (Auto) Baso % (Auto) Lymph # (Auto) [place] # (Auto) Eos # (Auto) Baso # (Auto) Abs Immat Gran (auto) Absolute Neuts (auto) Absolute Nucleated RBC Nucleated RBC % (auto) Coronavirus (PCR) POSITIVE A COVID-19 ([facility]) Positive A COVID-19 Clin Com See Note Influenza Type A (PCR) NEGATIVE Influenza Type B (PCR) NEGATIVE RSV RNA Qual (PCR) NEGATIVE Imaging Diagnostic Imaging Impressions Chest X-Ray 10/10/20 00:00 IMPRESSION: Low lung volume. Faint linear opacity in the left midlung may be atelectasis. Barium Swallow X-Ray 11/01/20 00:00 IMPRESSION: Moderate hiatal hernia again noted. There is associated moderate to severe esophageal dysmotility, with significant stasis of contrast within the esophagus with the patient in the prone position. DS: Summary Hospital Course Hospital Course: HPI Chief Complaint: Major Depressive disorder Sources of Information: patient interviewed and chart reviewed Additional Sources of Information: see d/c summary dr sethi HPI Narrative: [facility] secondary to severe depression with the intention of ECT secondary to catatonia and depression. Was reported to have a facial droop while on the inpatient unit and was transferred to the medical floor. Neuro workup including CT scan carotid ultrasound and chest CT scan showed nothing remarkable. Patient medically cleared by Dr. Sethi who felt no contraindication to ECT which has been the only treatment to help the patient when he has been that ill HPI Chief Complaint: worsening depression/ocd Sources of Information: patient interviewed, chart reviewed and crisis/core team assessment reviewed HPI Narrative: THE PATIENT IS A 75-YEAR-OLD MALE WELL KNOWN TO THIS [employer] HISTORY OF PSYCHOTIC DEPRESSION WITH CATATONIA RESPONDS WELL TO ECT WAS REFERRED TO ER BY ANESTHESIA AND DR. MENDOSA AFTER SCHEDULED ECT WAS CANCELED ON 08/01. PATIENT WAS TACHYCARDIC WITHDRAWN INTERNALLY PREOCCUPIED AND WAS REFERRED FOR MEDICAL EVALUATION. HE WAS MEDICALLY EVALUATED IN THE EMERGENCY ROOM NOTED TO TACHYCARDIA ANEMIA PRESUMED TO BE STABLE SOME LUNG CONSOLIDATION WAS NOT TREATED FOR PNEUMONIA. HISTORY OF GOOD RESPONSE TO ECT HE HAS BEEN INCREASINGLY ISOLATED WITH THE PANDEMIC HE LIVES AT [facility]. PATIENT SEES DR. MENDOSA HE DOES GET MAINTENANCE ECT HE IS ON CYMBALTA ZYPREXA AND TRAZODONE PATIENT IS NOTED TO BE INCREASINGLY DEPRESSED INTERNALLY PREOCCUPIED MINIMAL INTERACTION AND ENGAGEMENT WEIGHT LOSS NOTED. PATIENT HAS DETERIORATED SINCE MISSING ECT SECONDARY TO PULMONARY EMBOLISM IN THE Past Psychiatric History: HISTORY OF PAST PSYCHIATRIC HOSPITALIZATIONS ON M 3 FOR RECURRENCE PSYCHOTIC DEPRESSION HAS RESPONDED WELL TO ECT Medical Evaluation Reviewed: Yes VITAL SIGNS PULSE OX REPORTEDLY STABLE NOTED TO HAVE ANEMIA HISTORY OF COLON CANCER [facility] Medical History Dementia Depression Diverticulitis of colon with perforation GERD (gastroesophageal reflux disease) HTN (hypertension) Hyperlipidemia SVT (supraventricular tachycardia) Surgical History H/O hernia repair History of colostomy reversal Status post Paula's procedure Social History: PATIENT'S PATIENT [facility] HAS A STEPDAUGHTER WHO IS HEALTHCARE PROXY HAS A BROTHER WHO LIVES IN [place] THE PATIENT IS A Substance History: NOT APPLICABLE Trauma History: NOT APPLICABLE Past Psychiatric History: HISTORY OF PAST PSYCHIATRIC HOSPITALIZATIONS ON M 5 FOR RECURRENCE PSYCHOTIC DEPRESSION HAS RESPONDED WELL TO ECT [facility] Medical History Dementia Depression Diverticulitis of colon with perforation GERD (gastroesophageal reflux disease) HTN (hypertension) Hyperlipidemia Major depressive disorder, recurrent, severe with psychotic features Pulmonary embolism SVT (supraventricular tachycardia) Surgical History H/O hernia repair History of colostomy reversal Status post Paula's procedure Social History: PATIENT'S PATIENT [facility] HAS A STEPDAUGHTER WHO IS HEALTHCARE PROXY HAS A BROTHER WHO LIVES IN [place] THE PATIENT IS A Trauma History: NOT APPLICABLE Diagnostics Vital Signs (24Hr):Vital Signs - 24 hr 10/10/20 05:55 10/10/20 06:00 10/10/20 06:45 Temperature 98.5 F 98.5 F 98.4 F Pulse Rate 99 99 91 Respiratory Rate 16 18 Blood Pressure 119/73 119/73 126/81 Pulse Oximetry 93 10/10/20 07:55 10/10/20 08:00 10/10/20 08:05 Temperature 98.7 F Pulse Rate 77 86 85 Respiratory Rate 18 22 H 22 H Blood Pressure 153/81 H 127/82 143/94 H Pulse Oximetry 98 96 95 10/10/20 08:10 10/10/20 08:25 10/10/20 09:00 Temperature 98.4 F 97.9 F Pulse Rate 92 89 88 Respiratory Rate 20 20 16 Blood Pressure 134/86 107/68 107/57 L Pulse Oximetry 93 93 95 10/10/20 09:04 10/10/20 09:15 10/10/20 15:53 Temperature 97.9 F 97.3 F Pulse Rate 88 88 91 Respiratory Rate 16 Blood Pressure 107/57 L 107/57 L 113/65 Pulse Oximetry 95 Body Mass Index 25.0 Meds/Allergies Meds Home Medications Acetaminophen (Acetaminophen Supp 650 Mg Supp.Rect) 650 mg IN Q6H PRN PRN Reason: Pain, Mild (Pain Scale 1-3) Acetaminophen (Acetaminophen 325 Mg Tablet) 650 mg PO Q6H PRN PRN Reason: Headache/Pain Mild Scale (1-3) Al Hydroxide/Mg Hydroxide (Magnesium Hydrox/Alum Hydrox 30 Ml Oral.Susp) 30 ml PO Q6H PRN PRN Reason: Heartburn/Nausea Apixaban (Apixaban 5 Mg Tablet) 5 mg PO BID [facility] Last Admin: 10/10/20 09:14 Dose: 5 mg Documented by: Aspirin (Aspirin 81 Mg Tab.Chew) 81 mg PO DAILY [facility] Last Admin: 10/10/20 09:15 Dose: 81 mg Documented by: Atorvastatin Calcium (Atorvastatin Calcium 80 Mg Tablet) 80 mg PO BEDTIME [facility] Last Admin: 10/09/20 20:40 Dose: 80 mg Documented by: Docusate Sodium (Docusate Sodium 100 Mg Capsule) 100 mg PO BID [facility] Last Admin: 10/10/20 09:15 Dose: 100 mg Documented by: Doxazosin Mesylate (Doxazosin Mesylate 2 Mg Tablet) 2 mg PO DAILY [facility]; Protocol Last Admin: 10/10/20 09:15 Dose: 2 mg Documented by: Duloxetine HCl (Duloxetine Hcl 20 Mg Capsule.) 40 mg PO DAILY [facility] Last Admin: 10/10/20 09:17 Dose: 40 mg Documented by: Ferrous Sulfate (Ferrous Sulfate 324 Mg Tablet.) 324 mg PO DAILY [facility] Last Admin: 10/10/20 09:17 Dose: 324 mg Documented by: Finasteride (Finasteride 5 Mg Tablet) 5 mg PO DAILY [facility] Last Admin: 10/10/20 09:19 Dose: 5 mg Documented by: Lorazepam (Lorazepam 0.5 Mg Tablet) 0.5 mg PO TID [facility] Last Admin: 10/10/20 15:07 Dose: Not Given Documented by: Magnesium Hydroxide (Milk Of Magnesia 30 Ml Oral.Susp) 30 ml PO DAILY PRN PRN Reason: Constipation Olanzapine (Olanzapine 10 Mg Tablet) 20 mg PO BEDTIME [facility] Last Admin: 10/09/20 20:41 Dose: 20 mg Documented by: Oxybutynin Chloride (Oxybutynin Chloride Er 5 Mg Tab.Er.24) 5 mg PO DAILY [facility] Last Admin: 10/10/20 09:17 Dose: 5 mg Documented by: Polyethylene Glycol (Polyethylene Glycol 3350 17 Gm Powd.Pack) 17 gm PO DAILY [facility] Last Admin: 10/10/20 09:21 Dose: 17 gm Documented by: Trazodone HCl (Trazodone Hcl 50 Mg Tablet) 50 mg PO BEDTIME [facility] Last Admin: 01/05/21 20:40 Dose: 50 mg Documented by: Allergies Allergies Allergy/AdvReac Type Severity Reaction Status Date / Time No Known Allergies Allergy Verified 10/01/20 08:19 [No Known Allergies*] Mental Status Exam Mental Status Exam Patient Appearance: Disheveled and Unkempt Patient Orientation: Person, Place and Situation Level of Consciousness: Drowsy Patient Behavior: Dependent Behavior Comments: one word answers lowsy Mood Description: Constricted Affect Description: Flat Patient Cognition Impaired: Yes Ability to Follow Directions: Poor Speech Pattern: Slurred Thought Process: Slowed Thinking and Confusion Thought Content: positive for Poverty of Content Depressive Symptoms: Diff. Making Decisions and Muscle Tension Abnormal Motor Activity Signs and Symptoms: Psychomotor Retardation Judgement: Poor Assessment & Plan Assessment & Plan (1) Major depressive disorder, recurrent, severe with psychotic features: Status: Acute Code(s): F33.3 - Major depressive disorder, recurrent, severe with psychotic symptoms Assessment and Plan: no evidence of stroke patient medically stabilized on IMC no acute medical problems were noted patient does have a history of pulmonary embolism. Severe recurrent depression with catatonia only responsive to ECT missed maintenance treatment secondary to pulmonary embolism in early August and has relapse. First ECT completed unilateral treatment tolerated well Patient educated on: diagnosis, ECT and medical condition Informed Consent: further education needed Reason for continued inpatient stay Substantial Risk for: harm to self, inability to function and med/psych decompensation HOSPITAL COURSE THE PATIENT WAS ADMITTED WITH SEVERE DEPRESSION RUMINATION HAD NOT HAD ECT SECONDARY TO RECENT PULMONARY EMBOLISM AND HAD RELAPSED. CASE WAS REVIEWED WITH DR. MENDOSA. CASE WAS ALSO REVIEWED WITH HIS HEALTHCARE PROXY HIS STEPDAUGHTER. HE HE PLAN WAS TO RESTART ECT. THE PATIENT WAS ADMITTED ON OLANZAPINE AND CYMBALTA WHICH WAS CONTINUED WHO WAS NOTED TO BE ANEMIC AND EVENTUALLY GUAIAC- POSITIVE A GI CONSULT WAS OBTAINED AND THE PATIENT EVENTUALLY HAD ENDOSCOPY AND COLONOSCOPY. ENDOSCOPY REVEALED ESOPHAGITIS GASTRITIS AND ON COLONOSCOPY MULTIPLE POLYPS WERE REMOVED. THIS DID NECESSITATE HOLDING THE PATIENT'S ELIQUIS WHICH WAS EVENTUALLY RESTARTED THE PATIENT HAD PERIODS OF HYPOTENSION UNSTEADINESS OF GAIT HE DID HAVE PHYSICAL THERAPY CONSULT AND DID REQUIRE NURSING STAFF TO [facility] AMB[facility]ATION WHILE ON THE UNIT AND HE WAS MOSTLY ON ONE-TO-ONE SECONDARY TO AN EARLY FALL. THE PATIENT WAS TAPERED OFF OF CYMBALTA AND WAS ON VILAZODONE AT THE TIME OF DISCHARGE INCLUDE INCLUDING OLANZAPINE. THE PATIENT RECEIVED A TOTAL OF 8 UNILATERAL ECTS THIS LAST TREATMENT WAS RIGHT UNILATERAL 0.5 PULSE WIDTH PATIENT WAS MUCH IMPROVED AND UNFORTUNATELY PRIOR TO DISCHARGE IN PREPARATION FROM TRANSFER BACK TO [facility] THE PATIENT DID HAVE A POSITIVE COVID TEST. DID HAVE A HIGH NUMBER OF REPS OCCASIONS AND THERE WAS SOME THOUGHT THAT PERHAPS THE PATIENT HAD BEEN COVID POSITIVE IN THE PAST WHICH MIGHT HAVE LED TO THE PULMONARY EMBOLISM HOWEVER THE PATIENT DID HAVE RAPID TEST THAT DID NOT SHOW POSITIVITY INCLUDING ON ADMISSION IN OCTOBER. THE PATIENT WAS AFEBRILE COME COOPERATIVE AT TIME OF DISCHARGE AND HE HAD HAD A 1ST VACCINE INJECTION PRIOR TO DISCHARGE BEFORE KNOWING THE PATIENT HAD BEEN COVID POSITIVE HE IS SCHEDULED TO HAVE A 2ND INJECTION AT THE HOSPITAL TO COINCIDE WITH HIS NEXT ECT TREATMENT. HE PATIENT WAS NOT SHORT OF BREATH AFEBRILE HAD NO PHYSICAL SYMPTOMS AND THERE DID NOT APPEAR TO BE ANY REASON TO KEEP THE PATIENT FOR HOSPITAL. HE WAS TO QUARANTINE AT HOME WHICH HE WAS GOING TO DO ANYWAY APPOINTMENT SCHEDULED FOR FURTHER ECT AND MEDICAL EVALUATION. HE WAS ON VILAZODONE WHICH WAS A NEW MEDICATION APPEAR TO BE TOLERATING THIS PATIENT DOES HAVE A HISTORY OF TREATMENT RESISTANT DEPRESSION WITH CATATONIA THE PATIENT THE PATIENT'S [facility] HOME AND THE PATIENT'S HEALTHCARE PROXY WAS EDUCATED PRIOR TO DISCHARGE . THE PATIENT WAS ALSO EDUCATED TO TALK TO HIS STAFF AND NOTIFY HIS PCP IF HER HE WAS AGAIN SEE BLOOD IN STOOL Time Spent with Patient Time attestation: Total time spent providing and/or coordinating discharge services:
== END 2020-11-08 15:58 | disposition home or self-care (01) | DRG 885 ==
PROVIDERS: Internal Medicine; Internal Medicine Gastroenterology; Physician Assistant Medical; Psychiatry & Neurology Psychiatry; Social Worker; Admitting Provider Psychiatry & Neurology Psychiatry; Visit Provider Psychiatry & Neurology Psychiatry
PROC: GZB4ZZZ Other Electroconvulsive Therapy (ICD-10-PCS; CPT 90870; principal; 2020-10-12 07:00)
PROC: 0DJ08ZZ Inspection of Upper Intestinal Tract, Via Natural or Artificial Opening Endoscopic (ICD-10-PCS; principal; 2020-10-23 11:50)
DX: F33.3 Major depressive disorder, recurrent, severe with psychotic symptoms (principal); K21.01 Gastro-esophageal reflux disease with esophagitis, with bleeding; U07.1 COVID-19; E86.0 Dehydration; K63.5 Polyp of colon; D64.9 Anemia, unspecified; R26.81 Unsteadiness on feet; F03.90 Unspecified dementia, unspecified severity, without behavioral disturbance, psychotic disturbance, mood disturbance, and anxiety; E78.5 Hyperlipidemia, unspecified; Z79.01 Long term (current) use of anticoagulants; Z79.899 Other long term (current) drug therapy
CPT/HCPCS: 0241U; 36415; 71045; 74220; 80048; 80053; 82150; 82272; 83690; 85025; 85027; 87635; 88305; 90792; 90870; 93005; 97110; 97116; 97162; 97166; 97530; 97535; 99231; 99232; J0330; J1885; J2405

== ENCOUNTER 2020-12-05 06:11 | Day surgery (SDC) | payer MEDICARE, OTHER, SELFPAY ==
[2020-12-05 06:42] VITALS: BP 154/90; PULSE 97; RESP 17; TEMP 37.2; O2SAT 93
--- NOTE | 2020-12-05 06:48 | P.CONAN_ITS ---
[facility] Active Problems Active Problems: All Active Problems (Updated 11/18/20 @ 21:37 by Cooper Molina MD) GERD (gastroesophageal reflux disease) (Acute) Anemia (Acute) Preoperative cardiovascular examination (Acute) Major depressive disorder, recurrent, severe with psychotic features (Acute) Physical deconditioning (Acute) Past Medical History Medical History Dementia Depression Diverticulitis of colon with perforation GERD (gastroesophageal reflux disease) HTN (hypertension) Hyperlipidemia Major depressive disorder, recurrent, severe with psychotic features Pulmonary embolism SVT (supraventricular tachycardia) Family History Family History Brother Blood clot in vein Other No history of cardiac disorder Surgical History Surgical History H/O hernia repair History of colostomy reversal Status post Paula's procedure Social History Social History Household Members: Other Housing: Assisted Living Facility Alcohol intake: former Smoking Status: Never smoker Second Hand Smoke Exposure: No Advance Directives: No Advance Directives Information Provided: Yes Advance Directives Date on File: 07/27/20 service: Yes ([employer]) Current occupational status: retired Sexual orientation: Straight/Heterosexual Meds Allergies Allergy/AdvReac Type Severity Reaction Status Date / Time No Known Allergies Allergy Verified 10/01/20 08:19 [No Known Allergies*] Exam Exam Date and Time: December 05, 2020 0648 Airway Mallampati Class: II TM Dist: >3cm Neck ROM: Full Denture: Lower Heart: RRR Lungs: CTA BL Assessment and Plan Assessment Anesthesia Assessment: Anesthesia Plan Discussed and Chart Reviewed Final Anesthetic Review NPO: Yes ASA Class: III Final Preanesthetic Review: No Changes in Pt Med Stat and Consent Obtained/Reviewed Patient Risk: Intermediate Procedure Risk: Intermediate Anesthetic Plan Anesthetic Plan: GA Disposition: Standard PACU
--- NOTE | 2020-12-05 07:09 | MHC.SHP ---
Pre-Procedural Eval Section B Chief Complaint: severe depression Details of Present Illness: recurrent depression Relevant Family History (Specify if Yes): No Relevant Social History: None Present Medications: see Short Stay Collaborative assessment Medical History: Significant History (pulmonary embolism covid hx gi bleed ) History of Previous Operations: No relevant previous surgery (diverticulitis/ ect) Allergies: Allergies Allergy/AdvReac Type Severity Reaction Status Date / Time No Known Allergies Allergy Verified 10/01/20 08:19 [No Known Allergies*] Review of Systems Sugical H&P ROS: Negative: Cardiovascular (no cp ), Respiratory (no sob) and Gastrointestinal (no abd pain no blood stool) and Yes, Specify: Constitution (flat) Exam Surgical H&P Exam: Normal: HEENT, Normal: Heart (rr no murmur ), Normal: Lungs and Normal: Abdomen (soft nt) Plan Diagnosis/Plan: Unchanged I have reviewed the history and physical and performed a pertinent physical examination on my patient. No changes have occurred unless specified.
[2020-12-05 07:28] VITALS: BMI 25.1
--- NOTE | 2020-12-05 07:48 | HO.ECTPROC ---
ECT Procedure Note Diagnosis/Treatment Date of Service: 12/05/20 Diagnosis: Major Depressive Disorder Current Treatment Number: 1 (10/13) Treatment: Maintenance (10/13) Interval Clinical Notes: pt generally flat but stable out of quarantine ECT Settings Device: THYMATRON DGx Electrode Placement: Right Unilateral Program/Pulse Width: 0.50 Energy Percent: 100 Seizure Duration By EEG (in seconds): 38 Medications Administration General Anesthetic: Etomidate (12) Muscle Relaxant: Succinylcholine (100) Ancillary Medications Anti-emetics: Zofran - Pre ECT Cardiovascular Medications: Labetolol (10) Miscillaneous Medications: Flumazenil Airway Management Airway Management: Bag Mask Ventilation Treatment Recommendations Electrode Placement: Right Unilateral Program/Pulse Width: 0.50 Notes: next ect would benefit from propofol post ect secondary to restlessness f/u tx 01/02/21 outpt f/u dr estrada
[2020-12-05 07:50] VITALS: BP 181/97; PULSE 75; RESP 14; TEMP 37.7; O2SAT 96
[2020-12-05 07:55] VITALS: PULSE 91; RESP 18; O2SAT 96
[2020-12-05 08:00] VITALS: PULSE 92; RESP 17; O2SAT 97
[2020-12-05 08:05] VITALS: BP 136/95; PULSE 87; RESP 17; O2SAT 94
[2020-12-05 08:20] VITALS: BP 117/79; PULSE 86; RESP 17; TEMP 37.7; O2SAT 97
== END 2020-12-05 09:03 | disposition home or self-care (01) ==
PROVIDERS: Visit Provider Psychiatry & Neurology Psychiatry
PROC: (CPT 90870; principal; 2020-12-05 07:30)
DX: F33.3 Major depressive disorder, recurrent, severe with psychotic symptoms (principal); F03.90 Unspecified dementia, unspecified severity, without behavioral disturbance, psychotic disturbance, mood disturbance, and anxiety; I10 Essential (primary) hypertension
CPT/HCPCS: 90870; J0330; J2405

== ENCOUNTER 2020-12-28 06:18 | Day surgery (SDC) | payer MEDICARE, OTHER, SELFPAY ==
[2020-12-28 06:28] VITALS: BMI 25.2
--- NOTE | 2020-12-28 07:02 | MHC.SHP ---
Pre-Procedural Eval Section A The patient is an INPATIENT: No Changes since office visit: Yes Patient answered all questions; No Cold of Flu in the past 2 weeks, No New Medical Problems and No Changes in Medication The History & Physical has been completed within 30 days and I have reviewed it.: Yes Section B Chief Complaint: Severe Depression Allergies: Allergies Allergy/AdvReac Type Severity Reaction Status Date / Time No Known Allergies Allergy Verified 10/01/20 08:19 [No Known Allergies*] Plan I have reviewed the history and physical and performed a pertinent physical examination on my patient. No changes have occurred unless specified.
[2020-12-28 07:05] VITALS: BP 148/92; PULSE 106; RESP 17; TEMP 37; O2SAT 93
--- NOTE | 2020-12-28 07:20 | HO.ECTPROC ---
ECT Procedure Note Diagnosis/Treatment Date of Service: 12/28/20 Diagnosis: Major Depressive Disorder Current Treatment Number: 2 (11/14) Treatment: Maintenance Interval Clinical Notes: pt depressed flat c/o insomnia ECT Settings Device: THYMATRON DGx Electrode Placement: Right Unilateral Program/Pulse Width: 0.50 Energy Percent: 100 Seizure Duration By EEG (in seconds): 51 Medications Administration General Anesthetic: Etomidate (12) Muscle Relaxant: Succinylcholine (100) Ancillary Medications Anti-emetics: Zofran - Pre ECT Cardiovascular Medications: Labetolol (10 mg pretx ) Miscillaneous Medications: Propofol (30 mg post) and Flumazenil Airway Management Airway Management: Bag Mask Ventilation Treatment Recommendations No Changes Recommended: No change Notes: more depressed f/u tx 2 weeks Pt Tolerated Procedure w/o Issue: Yes
[2020-12-28 07:27] VITALS: BP 125/78; PULSE 72; RESP 18; TEMP 36.6; O2SAT 97
[2020-12-28 07:32] VITALS: BP 133/79; PULSE 71; RESP 16; O2SAT 98
--- NOTE | 2020-12-28 07:32 | P.CONAN_ITS ---
[facility] Active Problems Active Problems: All Active Problems (Updated 12/26/20 @ 10:52 by Cora melvin) Physical deconditioning (Acute) Preoperative cardiovascular examination (Acute) Anemia (Acute) GERD (gastroesophageal reflux disease) (Acute) Past Medical History Medical History COVID-19 vaccine administered Dementia Depression Diverticulitis of colon with perforation GERD (gastroesophageal reflux disease) History of electroconvulsive therapy HTN (hypertension) Hyperlipidemia Major depressive disorder, recurrent, severe with psychotic features Pulmonary embolism SVT (supraventricular tachycardia) Family History Family History Brother Blood clot in vein Other No history of cardiac disorder Surgical History Surgical History H/O colonoscopy H/O hernia repair History of colostomy reversal History of esophagogastroduodenoscopy (EGD) Status post Paula's procedure Social History Social History Household Members: Other Housing: Assisted Living Facility Alcohol intake: former Smoking Status: Never smoker Second Hand Smoke Exposure: No Use of substances other than those prescribed or required for medical reasons: No Advance Directives: Yes Advance Directives on File: Yes Advance Directives Date on File: 07/27/20 service: Yes ([employer]) Current occupational status: retired Sexual orientation: Straight/Heterosexual Meds Allergies Allergy/AdvReac Type Severity Reaction Status Date / Time No Known Allergies Allergy Verified 10/01/20 08:19 [No Known Allergies*] Exam Exam Date and Time: December 28, 2020 0732 Height,Weight and Vital Signs: Height 5 ft 11 in Weight 82.1 kg Last Vital Signs Temp 98.6 F 12/28/20 07:05 Pulse 106 H 12/28/20 07:05 Resp 17 12/28/20 07:05 BP 148/92 H 12/28/20 07:05 Pulse Ox 93 12/28/20 07:05 Airway Mallampati Class: III TM Dist: >3cm Neck ROM: Full Denture: Upper and Lower Heart: RRR Lungs: CTA
[2020-12-28 07:37] VITALS: BP 133/81; PULSE 75; RESP 18; O2SAT 97
[2020-12-28 07:42] VITALS: BP 132/88; PULSE 88; RESP 20; O2SAT 98
[2020-12-28 07:57] VITALS: BP 133/72; PULSE 86; RESP 16; TEMP 36.7; O2SAT 94
== END 2020-12-28 09:15 | disposition home or self-care (01) ==
PROVIDERS: Visit Provider Psychiatry & Neurology Psychiatry
PROC: (CPT 90870; principal; 2020-12-28 08:00)
DX: F33.3 Major depressive disorder, recurrent, severe with psychotic symptoms (principal); F03.90 Unspecified dementia, unspecified severity, without behavioral disturbance, psychotic disturbance, mood disturbance, and anxiety; G47.00 Insomnia, unspecified; D64.9 Anemia, unspecified; I10 Essential (primary) hypertension; I26.99 Other pulmonary embolism without acute cor pulmonale; Z79.02 Long term (current) use of antithrombotics/antiplatelets; Z79.899 Other long term (current) drug therapy
CPT/HCPCS: 90870; J0330; J2405

== ENCOUNTER 2021-01-01 06:49 | Day surgery (SDC) | payer MEDICARE, OTHER, SELFPAY ==
--- NOTE | 2020-12-31 08:22 | P.CONAN_ITS ---
Documented by User: Leann Nelson 12/31/20 08:25 HPI - Anesthesia Eval Consult details Narrative: 75yo [place] [facility] [place]2020 [place] for PE PMFSH Active Problems Active Problems: All Active Problems (Updated 12/26/20 @ 10:52 by Cora Toscano) Physical deconditioning (Acute) Preoperative cardiovascular examination (Acute) Anemia (Acute) GERD (gastroesophageal reflux disease) (Acute) Past Medical History Medical History COVID-19 vaccine administered Dementia Depression Diverticulitis of colon with perforation GERD (gastroesophageal reflux disease) History of electroconvulsive therapy HTN (hypertension) Hyperlipidemia Major depressive disorder, recurrent, severe with psychotic features Pulmonary embolism SVT (supraventricular tachycardia) Family History Family History Brother Blood clot in vein Other No history of cardiac disorder Surgical History Surgical History H/O colonoscopy H/O hernia repair History of colostomy reversal History of esophagogastroduodenoscopy (EGD) Status post Paula's procedure Social History Social History Household Members: Other Housing: Assisted Living Facility Alcohol intake: former Smoking Status: Never smoker Second Hand Smoke Exposure: No Use of substances other than those prescribed or required for medical reasons: No Advance Directives: No Advance Directives Information Provided: Yes Advance Directives Date on File: 07/27/20 service: Yes ([employer]) Current occupational status: retired Sexual orientation: Straight/Heterosexual Meds Allergies Allergy/AdvReac Type Severity Reaction Status Date / Time No Known Allergies Allergy Verified 01/01/21 07:02 [No Known Allergies*] Exam Exam Date and Time: December 31, 2020821 Assessment and Plan Assessment Anesthesia Assessment: Chart Reviewed Documented by User: Tamia Scott 01/01/21 08:32 PMFSH Past Medical History Medical History COVID-19 vaccine administered Dementia Depression Diverticulitis of colon with perforation GERD (gastroesophageal reflux disease) History of electroconvulsive therapy HTN (hypertension) Hyperlipidemia Major depressive disorder, recurrent, severe with psychotic features Pulmonary embolism SVT (supraventricular tachycardia) Family History Family History Brother Blood clot in vein Other No history of cardiac disorder Surgical History Surgical History H/O colonoscopy H/O hernia repair History of colostomy reversal History of esophagogastroduodenoscopy (EGD) Status post Paula's procedure Social History Social History Household Members: Other Housing: Assisted Living Facility Alcohol intake: former Smoking Status: Never smoker Second Hand Smoke Exposure: No Use of substances other than those prescribed or required for medical reasons: No Advance Directives: No Advance Directives Information Provided: Yes Advance Directives Date on File: 07/27/20 service: Yes ([employer]) Current occupational status: retired Sexual orientation: Straight/Heterosexual Meds Allergies Allergy/AdvReac Type Severity Reaction Status Date / Time No Known Allergies Allergy Verified 01/01/21 07:02 [No Known Allergies*] Exam Airway Mallampati Class: II (Edentulous) TM Dist: >3cm Denture: Upper and Lower Loose/Missing/Broken Teeth: Yes, Upper and Lower Heart: RRR Lungs: CTA Assessment and Plan Assessment Anesthesia Assessment: Anesthesia Plan Discussed and Chart Reviewed Final Anesthetic Review NPO: Yes ASA Class: III Final Preanesthetic Review: Meds/Allgs Chart Reviewed, Consent Obtained/Reviewed and Anes Risks/Benef Reviewed Patient Risk: Intermediate Procedure Risk: Intermediate Anesthetic Plan Anesthetic Plan: MAC: Disposition: Standard PACU
[2021-01-01 07:03] VITALS: BP 144/93; PULSE 108; RESP 16; TEMP 36.9; O2SAT 95; BMI 25.1
[2021-01-01] MEDS: Lactated Ringers 1,000 ML 100 ML IVCONT (07:36)
--- NOTE | 2021-01-01 08:18 | MHC.SHP ---
Pre-Procedural Eval Section B Chief Complaint: esophagus disease Details of Present Illness: erosive esophagitis Relevant Family History (Specify if Yes): No Relevant Social History: None Present Medications: see Short Stay Collaborative assessment Medical History: No relevant PMH History of Previous Operations: No relevant previous surgery Allergies: Allergies Allergy/AdvReac Type Severity Reaction Status Date / Time No Known Allergies Allergy Verified 01/01/21 07:02 [No Known Allergies*] Review of Systems Sugical H&P ROS: Negative: Constitution, Cardiovascular, Respiratory, Neurological, Psychiatric, Hem-Onc, Allergic/Immunologic, Gastrointestinal, Genitourinary, Musculoskeletal, Integumentary, Endocrine and Eyes/Ears/Nose/Throat Exam Surgical H&P Exam: Normal: HEENT, Normal: Heart, Normal: Lungs, Normal: Extremities, Normal: Abdomen, Normal: Skin and Normal: Neurological Plan Diagnosis/Plan: Unchanged I have reviewed the history and physical and performed a pertinent physical examination on my patient. No changes have occurred unless specified.
--- NOTE | 2021-01-01 08:24 | PC.NURSE ---
CONSENTS OBTAINED OVER THE PHONE WITH HCP JOSE MANUEL DAMON
[2021-01-01 08:37] VITALS: BP 98/61; PULSE 76; RESP 18; TEMP 36.7; O2SAT 99
--- NOTE | 2021-01-01 08:43 | PM.OP ---
Brief Operative Note Date of Service: 01/01/21 Pre-op diagnosis: erosive esophagitis Post-op diagnosis: same (gerd, hiatal hernia) Procedure: egd Surgeon: Jose Alejandro White Estimated blood loss (mL): 3 Pathology: other (egj biopsies) Condition: stable Disposition: other
[2021-01-01 08:52] VITALS: BP 117/69; PULSE 82; RESP 18; O2SAT 96
--- NOTE | 2021-01-01 08:59 | OP_ITS ---
SURGEON: Jose Alejandro White MD INDICATIONS: Erosive esophagitis. PREOPERATIVE DIAGNOSIS: POSTOPERATIVE DIAGNOSIS: PROCEDURE PERFORMED: Upper endoscopy with biopsy. ESTIMATED BLOOD LOSS: COMPLICATIONS: ANESTHESIA: Medications, monitored anesthesia care. ASSISTANTS: SPECIMENS: DESCRIPTION OF PROCEDURE: History and physical performed. The risks and benefits of the procedure were explained to the patient's daughter and informed consent was obtained. The patient was placed in left lateral decubitus position. The Olympus video gastroscope was introduced into the esophagus, stomach and duodenum. Examination was performed. The scope was removed. He tolerated the procedure well and was taken to recovery in stable condition. FINDINGS: ESOPHAGUS: The esophagus showed resolution of the erosive esophagitis. The EG junction was irregular, but no raised lesions or ulcerated areas were seen. There was a moderate-sized hiatal hernia. Biopsies were obtained from the EG junction. STOMACH: The stomach showed no evidence of masses, ulcers, or polyps. DUODENUM: The bulb and second portion were normal. IMPRESSION: Gastroesophageal reflux disease, hiatal hernia. RECOMMENDATION: Follow up the biopsy results. MD NEFTALI Blackburn/ABBYL / [id number]
== END 2021-01-01 09:28 | disposition home or self-care (01) ==
PROVIDERS: Visit Provider Internal Medicine Gastroenterology
PROC: 0DJ08ZZ Inspection of Upper Intestinal Tract, Via Natural or Artificial Opening Endoscopic (ICD-10-PCS; CPT 43235; principal; 2021-01-01 08:00)
DX: K21.9 Gastro-esophageal reflux disease without esophagitis (principal); K44.9 Diaphragmatic hernia without obstruction or gangrene; I10 Essential (primary) hypertension; F33.3 Major depressive disorder, recurrent, severe with psychotic symptoms; I26.99 Other pulmonary embolism without acute cor pulmonale; Z79.01 Long term (current) use of anticoagulants; Z79.899 Other long term (current) drug therapy
CPT/HCPCS: 43239; 88305

== ENCOUNTER 2021-01-11 06:11 | Day surgery (SDC) | payer MEDICARE, OTHER, SELFPAY ==
[2021-01-11] VITALS (7 sets, daily range): BP systolic 120–165; BP diastolic 61–90; PULSE 73–118; RESP 11–16; TEMP 37–37.4; O2SAT 93–96; BMI 25.0
[2021-01-11] MEDS: Lactated Ringers 1,000 ML 20 ML IVCONT (06:45)
--- NOTE | 2021-01-11 07:02 | MHC.SHP ---
Pre-Procedural Eval Section A The patient is an INPATIENT: No Changes since office visit: No Cold of Flu in the past 2 weeks, No New Medical Problems, No Changes in Medication and No Patient answered all questions The History & Physical has been completed within 30 days and I have reviewed it.: Yes Section B Chief Complaint: depression Details of Present Illness: Depression Relevant Family History (Specify if Yes): No Relevant Social History: None Present Medications: None Medical History: No relevant PMH History of Previous Operations: No relevant previous surgery Allergies: Allergies Allergy/AdvReac Type Severity Reaction Status Date / Time No Known Allergies Allergy Verified 01/01/21 07:02 [No Known Allergies*] Review of Systems Sugical H&P ROS: Negative: Constitution, Cardiovascular, Respiratory, Neurological, Psychiatric, Hem-Onc, Allergic/Immunologic, Gastrointestinal, Genitourinary, Musculoskeletal, Integumentary, Endocrine and Eyes/Ears/Nose/Throat Exam Surgical H&P Exam: Normal: HEENT, Normal: Heart, Normal: Lungs, Normal: Extremities, Normal: Abdomen, Normal: Skin and Normal: Neurological Plan Diagnosis/Plan: Unchanged I have reviewed the history and physical and performed a pertinent physical examination on my patient. No changes have occurred unless specified.
--- NOTE | 2021-01-11 07:17 | HO.ANESPROP2 ---
[facility] Active Problems Active Problems: All Active Problems (Updated 12/26/20 @ 10:52 by Cora Toscano) Physical deconditioning (Acute) Preoperative cardiovascular examination (Acute) Anemia (Acute) GERD (gastroesophageal reflux disease) (Acute) Past Medical History Medical History COVID-19 vaccine administered Dementia Depression Diverticulitis of colon with perforation GERD (gastroesophageal reflux disease) History of electroconvulsive therapy HTN (hypertension) Hyperlipidemia Major depressive disorder, recurrent, severe with psychotic features Pulmonary embolism SVT (supraventricular tachycardia) Family History Family History Brother Blood clot in vein Other No history of cardiac disorder Surgical History Surgical History H/O colonoscopy H/O hernia repair History of colostomy reversal History of esophagogastroduodenoscopy (EGD) Status post Paula's procedure Social History Social History Household Members: Other Housing: Assisted Living Facility Alcohol intake: former Smoking Status: Never smoker Second Hand Smoke Exposure: No Advance Directives: Yes Advance Directives on File: Yes Advance Directives Date on File: 07/27/20 Recently lost weight without trying: No service: Yes ([email or web address]) Current occupational status: retired Sexual orientation: Straight/Heterosexual Meds Allergies Allergy/AdvReac Type Severity Reaction Status Date / Time No Known Allergies Allergy Verified 01/01/21 07:02 [No Known Allergies*] Exam Exam Date and Time: January 11, 2021 0717 Height,Weight and Vital Signs: Height 5 ft 11 in Weight 81.2 kg Last Vital Signs Temp 99.3 F 01/11/21 06:27 Pulse 118 H 01/11/21 06:27 Resp 16 01/11/21 06:27 BP 165/90 H 01/11/21 06:27 Pulse Ox 96 01/11/21 06:27 Airway Mallampati Class: II TM Dist: >3cm Neck ROM: Full Assessment and Plan Assessment Anesthesia Assessment: Anesthesia Plan Discussed and Chart Reviewed Final Anesthetic Review NPO: Yes ASA Class: II Final Preanesthetic Review: No Changes in Pt Med Stat, Meds/Allgs Chart Reviewed, Consent Obtained/Reviewed and Anes Risks/Benef Reviewed Patient Risk: Low Procedure Risk: Low Assessment/Block/Sedation in SS: Assess/Block/Sedation-SS Anesthetic Plan Anesthetic Plan: GA Disposition: Standard PACU
--- NOTE | 2021-01-11 07:25 | HO.ECTPROC ---
ECT Procedure Note Diagnosis/Treatment Date of Service: 01/11/21 Diagnosis: Major Depressive Disorder Previous ECT Date: 12/28/20 Current Treatment Number: 3 (12/12) Treatment: Maintenance Interval Clinical Notes: pt doing better since lasttx ECT Settings Device: THYMATRON DGx Electrode Placement: Right Unilateral Program/Pulse Width: 0.50 Energy Percent: 100 Seizure Duration By EEG (in seconds): 44 Medications Administration General Anesthetic: Etomidate (12) Muscle Relaxant: Succinylcholine (100) Ancillary Medications Analgesics: Torodol - Pre ECT Anti-emetics: Zofran - Pre ECT Cardiovascular Medications: Labetolol (15 post) Miscillaneous Medications: Propofol (30) Airway Management Airway Management: Bag Mask Ventilation Treatment Recommendations No Changes Recommended: No change Notes: will schedule f/u tx 3 weeks still blunted but much improved to seee dr estrada outpt Pt Tolerated Procedure w/o Issue: Yes
== END 2021-01-11 08:25 | disposition home or self-care (01) ==
PROVIDERS: Visit Provider Psychiatry & Neurology Psychiatry
PROC: (CPT 90870; principal; 2021-01-11 07:00)
DX: F33.3 Major depressive disorder, recurrent, severe with psychotic symptoms (principal)
CPT/HCPCS: 90870; J0330; J1885; J2405

== ENCOUNTER 2021-01-25 06:07 | Day surgery (SDC) | payer MEDICARE, OTHER, SELFPAY ==
[2021-01-25 06:43] VITALS: BP 154/95; PULSE 115; RESP 20; TEMP 36.7; O2SAT 62; BMI 25.1
--- NOTE | 2021-01-25 08:06 | HO.ANESPROP2 ---
[facility] Active Problems Active Problems: All Active Problems (Updated 12/26/20 @ 10:52 by Cora Toscano) Physical deconditioning (Acute) Preoperative cardiovascular examination (Acute) Anemia (Acute) GERD (gastroesophageal reflux disease) (Acute) Past Medical History Medical History COVID-19 vaccine administered Dementia Depression Diverticulitis of colon with perforation GERD (gastroesophageal reflux disease) History of electroconvulsive therapy HTN (hypertension) Hyperlipidemia Major depressive disorder, recurrent, severe with psychotic features Pulmonary embolism SVT (supraventricular tachycardia) Family History Family History Brother Blood clot in vein Other No history of cardiac disorder Surgical History Surgical History H/O colonoscopy H/O hernia repair History of colostomy reversal History of esophagogastroduodenoscopy (EGD) Status post Paula's procedure Social History Social History Household Members: Other Housing: Assisted Living Facility Alcohol intake: former Smoking Status: Never smoker Second Hand Smoke Exposure: No Advance Directives: No Advance Directives Information Provided: Yes Advance Directives Date on File: 07/27/20 service: Yes ([employer]) Current occupational status: retired Sexual orientation: Straight/Heterosexual Meds Allergies Allergy/AdvReac Type Severity Reaction Status Date / Time No Known Allergies Allergy Verified 01/25/21 06:43 [No Known Allergies*] Active Medications: Current Medications Generic Name Dose Route Start Last Admin Trade Name Freq PRN Reason Stop Dose Admin Lactated Ringer's 1,000 mls @ 50 mls/hr 01/24/21 08:30 Lr IV .Q20H ROMMEL Exam Exam Date and Time: January 25, 2021 0806 Height,Weight and Vital Signs: Height 5 ft 11 in Weight 81.647 kg Last Vital Signs Temp 98.1 F 01/25/21 06:43 Pulse 115 H 01/25/21 06:43 Resp 20 01/25/21 06:43 BP 154/95 H 01/25/21 06:43 Pulse Ox 62 L 01/25/21 06:43 Airway Mallampati Class: III TM Dist: >3cm Neck ROM: Full Denture: Upper and Lower Loose/Missing/Broken Teeth: Yes Assessment and Plan Assessment Anesthesia Assessment: Anesthesia Plan Discussed and Chart Reviewed Final Anesthetic Review NPO: Yes ASA Class: III Final Preanesthetic Review: No Changes in Pt Med Stat, Meds/Allgs Chart Reviewed, Consent Obtained/Reviewed and Anes Risks/Benef Reviewed Patient Risk: High Procedure Risk: Low Anesthetic Plan Anesthetic Plan: GA Disposition: Standard PACU
--- NOTE | 2021-01-25 08:31 | MHC.SHP ---
Pre-Procedural Eval Section A The patient is an INPATIENT: No Changes since office visit: Yes Patient answered all questions; No Cold of Flu in the past 2 weeks, No New Medical Problems and No Changes in Medication The History & Physical has been completed within 30 days and I have reviewed it.: Yes Section B Chief Complaint: major depression Allergies: Allergies Allergy/AdvReac Type Severity Reaction Status Date / Time No Known Allergies Allergy Verified 01/25/21 06:43 [No Known Allergies*] Plan I have reviewed the history and physical and performed a pertinent physical examination on my patient. No changes have occurred unless specified.
[2021-01-25 08:40] VITALS: BP 169/92; PULSE 67; RESP 16; TEMP 36.3; O2SAT 95
--- NOTE | 2021-01-25 08:41 | HO.ECTPROC ---
ECT Procedure Note Diagnosis/Treatment Date of Service: 01/25/21 Diagnosis: Major Depressive Disorder Treatment: Maintenance (01/13) Interval Clinical Notes: some improvement still c/o insomnia n si ECT Settings Device: THYMATRON DGx Electrode Placement: Right Unilateral Program/Pulse Width: 0.50 Energy Percent: 100 Seizure Duration By EEG (in seconds): 36 Medications Administration General Anesthetic: Etomidate (12) Muscle Relaxant: Succinylcholine (100) Ancillary Medications Analgesics: Torodol - Pre ECT Anti-emetics: Zofran - Pre ECT Cardiovascular Medications: Labetolol (15 mg pre tx ) Airway Management Airway Management: Bag Mask Ventilation Treatment Recommendations No Changes Recommended: No change Notes: f/u tx 4 weeks Pt Tolerated Procedure w/o Issue: Yes
[2021-01-25 08:45] VITALS: BP 141/74; PULSE 70; RESP 16; O2SAT 95
[2021-01-25 08:50] VITALS: BP 130/82; PULSE 71; RESP 19; O2SAT 97
[2021-01-25 08:56] VITALS: BP 137/86; PULSE 79; RESP 17; O2SAT 97
[2021-01-25 09:11] VITALS: BP 134/87; PULSE 102; RESP 17; O2SAT 96
== END 2021-01-25 09:40 | disposition home or self-care (01) ==
PROVIDERS: Visit Provider Psychiatry & Neurology Psychiatry
PROC: (CPT 90870; principal; 2021-01-25 15:00)
DX: F33.3 Major depressive disorder, recurrent, severe with psychotic symptoms (principal); G47.00 Insomnia, unspecified; I10 Essential (primary) hypertension; I26.99 Other pulmonary embolism without acute cor pulmonale; Z79.01 Long term (current) use of anticoagulants
CPT/HCPCS: 90870; J0330; J1885; J2405

== ENCOUNTER 2021-02-08 06:17 | Day surgery (SDC) | payer MEDICARE, OTHER, SELFPAY ==
[2021-02-08] VITALS (7 sets, daily range): BP systolic 121–167; BP diastolic 76–87; PULSE 55–104; RESP 12–23; TEMP 36.4–36.9; O2SAT 92–98; BMI 25.1
--- NOTE | 2021-02-08 07:38 | HO.ECTPROC ---
ECT Procedure Note Diagnosis/Treatment Date of Service: 02/08/21 Diagnosis: Major Depressive Disorder Current Treatment Number: 5 Treatment: Maintenance (02/13) Interval Clinical Notes: has been withdrawn depressed flat ECT Settings Device: THYMATRON DGx Electrode Placement: Right Unilateral Program/Pulse Width: 0.50 Energy Percent: 100 Seizure Duration By EEG (in seconds): 46 Medications Administration General Anesthetic: Etomidate (12) Muscle Relaxant: Succinylcholine (100) Ancillary Medications Anti-emetics: Zofran - Pre ECT Airway Management Airway Management: Bag Mask Ventilation Treatment Recommendations No Changes Recommended: No change Pt Tolerated Procedure w/o Issue: Yes
--- NOTE | 2021-02-08 07:57 | HO.ANESPROP2 ---
HPI - Anesthesia Eval Consult details Narrative: 75 year old male patient here for ECT PMFSH Active Problems Active Problems: All Active Problems (Updated 12/26/20 @ 10:52 by Cora Toscano) Physical deconditioning (Acute) Preoperative cardiovascular examination (Acute) Anemia (Acute) GERD (gastroesophageal reflux disease) (Acute) Past Medical History Medical History COVID-19 vaccine administered Dementia Depression Diverticulitis of colon with perforation GERD (gastroesophageal reflux disease) History of electroconvulsive therapy HTN (hypertension) Hyperlipidemia Major depressive disorder, recurrent, severe with psychotic features Pulmonary embolism SVT (supraventricular tachycardia) Family History Family History Brother Blood clot in vein Other No history of cardiac disorder Surgical History Surgical History H/O colonoscopy H/O hernia repair History of colostomy reversal History of esophagogastroduodenoscopy (EGD) Status post Paula's procedure Social History Social History Household Members: Other Housing: Assisted Living Facility Alcohol intake: former Smoking Status: Never smoker Second Hand Smoke Exposure: No Are you DNR?: No Advance Directives: Yes Advance Directives on File: Yes Advance Directives Date on File: 07/27/20 service: Yes ([employer]) Current occupational status: retired Sexual orientation: Straight/Heterosexual Meds Allergies Allergy/AdvReac Type Severity Reaction Status Date / Time No Known Allergies Allergy Verified 01/25/21 06:43 [No Known Allergies*] Exam Height,Weight and Vital Signs: Height 5 ft 11 in Weight 81.647 kg Vital Signs Temp Pulse Resp BP Pulse Ox 98.5 F 104 H 20 156/81 H 96 02/08/21 06:47 02/08/21 06:47 02/08/21 06:47 02/08/21 06:47 02/08/21 06:47 Airway Mallampati Class: III TM Dist: >3cm Neck ROM: Full Partial: Upper Heart: RRR Lungs: CTAB Assessment and Plan Assessment Anesthesia Assessment: Anesthesia Plan Discussed and Chart Reviewed Final Anesthetic Review NPO: Yes ASA Class: III Final Preanesthetic Review: No Changes in Pt Med Stat, Meds/Allgs Chart Reviewed, Consent Obtained/Reviewed and Anes Risks/Benef Reviewed Patient Risk: Intermediate Procedure Risk: Intermediate Anesthetic Plan Anesthetic Plan: GA Disposition: Standard PACU
== END 2021-02-08 09:38 | disposition home or self-care (01) ==
PROVIDERS: Visit Provider Psychiatry & Neurology Psychiatry
PROC: (CPT 90870; principal; 2021-02-08 07:00)
DX: F33.3 Major depressive disorder, recurrent, severe with psychotic symptoms (principal); F03.90 Unspecified dementia, unspecified severity, without behavioral disturbance, psychotic disturbance, mood disturbance, and anxiety; I10 Essential (primary) hypertension; I26.99 Other pulmonary embolism without acute cor pulmonale; I47.1 Supraventricular tachycardia; Z79.01 Long term (current) use of anticoagulants; Z79.899 Other long term (current) drug therapy
CPT/HCPCS: 90870; J0330; J1885; J2250; J2405

== ENCOUNTER 2021-02-15 06:04 | Day surgery (SDC) | payer MEDICARE, OTHER, SELFPAY ==
[2021-02-15] VITALS (8 sets, daily range): BP systolic 115–165; BP diastolic 63–94; PULSE 63–98; RESP 16–20; TEMP 36.6–37.3; O2SAT 92–98; BMI 25.1
--- NOTE | 2021-02-15 08:11 | MHC.SHP ---
Pre-Procedural Eval Section A The patient is an INPATIENT: Yes Changes since office visit: Yes New Medical Problems, Yes Changes in Medication and Yes Patient answered all questions; No Cold of Flu in the past 2 weeks The History & Physical has been completed within 30 days and I have reviewed it.: Yes Section B Chief Complaint: major depression disorder Allergies: Allergies Allergy/AdvReac Type Severity Reaction Status Date / Time No Known Allergies Allergy Verified 01/25/21 06:43 [No Known Allergies*] Plan I have reviewed the history and physical and performed a pertinent physical examination on my patient. No changes have occurred unless specified.
--- NOTE | 2021-02-15 08:55 | HO.ECTPROC ---
ECT Procedure Note Diagnosis/Treatment Date of Service: 02/15/21 Diagnosis: Major Depressive Disorder Previous ECT Date: 02/08/21 Treatment: Maintenance (03/16) ECT Settings Device: THYMATRON DGx Electrode Placement: Right Unilateral Program/Pulse Width: 0.50 Energy Percent: 100 Seizure Duration By EEG (in seconds): 56 Medications Administration General Anesthetic: Etomidate (12) Muscle Relaxant: Succinylcholine (100) Ancillary Medications Anti-emetics: Zofran - Pre ECT Cardiovascular Medications: Labetolol (10 mg pre tx ) Miscillaneous Medications: Propofol (30 mg) and Midazolam (2 mg) Airway Management Airway Management: Bag Mask Ventilation Treatment Recommendations No Changes Recommended: No change Notes: continue tx no active si somewhat [place]ley affect cont maint tx
== END 2021-02-15 09:30 | disposition home or self-care (01) ==
PROVIDERS: Visit Provider Psychiatry & Neurology Psychiatry
PROC: (CPT 90870; principal; 2021-02-15 08:00)
DX: F33.3 Major depressive disorder, recurrent, severe with psychotic symptoms (principal); F03.90 Unspecified dementia, unspecified severity, without behavioral disturbance, psychotic disturbance, mood disturbance, and anxiety; I10 Essential (primary) hypertension; I26.99 Other pulmonary embolism without acute cor pulmonale; Z79.01 Long term (current) use of anticoagulants; Z79.899 Other long term (current) drug therapy
CPT/HCPCS: 90870; J0330; J1885; J2250; J2405

== ENCOUNTER 2021-02-22 07:45 | Day surgery (SDC) | payer MEDICARE, OTHER, SELFPAY ==
[2021-02-22] VITALS (7 sets, daily range): BP systolic 118–171; BP diastolic 74–99; PULSE 67–102; RESP 14–19; TEMP 36.4–37.3; O2SAT 96–97
--- NOTE | 2021-02-22 | ECG_ITS ---
Test Reason : PRE OP Blood Pressure : / mmHG Vent. Rate : 069 BPM Atrial Rate : 069 BPM P-R Int : 188 ms QRS Dur : 098 ms QT Int : 408 ms P-R-T Axes : -12 -35 003 degrees QTc Int : 437 ms Normal sinus rhythm Left axis deviation Borderline ECG When compared with ECG of 06-NOV-2020 22:49, No significant change was found Referred By: Cooper Molina Electronically Signed By:ZORA TILLMAN
--- NOTE | 2021-02-22 09:12 | HO.ANESPROP2 ---
[facility] Active Problems Active Problems: All Active Problems (Updated 12/26/20 @ 10:52 by Cora Toscano) Physical deconditioning (Acute) Preoperative cardiovascular examination (Acute) Anemia (Acute) GERD (gastroesophageal reflux disease) (Acute) Past Medical History Medical History COVID-19 vaccine administered Dementia Depression Diverticulitis of colon with perforation GERD (gastroesophageal reflux disease) History of electroconvulsive therapy HTN (hypertension) Hyperlipidemia Major depressive disorder, recurrent, severe with psychotic features Pulmonary embolism SVT (supraventricular tachycardia) Family History Family History Brother Blood clot in vein Other No history of cardiac disorder Surgical History Surgical History H/O colonoscopy H/O hernia repair History of colostomy reversal History of esophagogastroduodenoscopy (EGD) Status post Paula's procedure Social History Social History Household Members: Other Housing: Assisted Living Facility Alcohol intake: former Smoking Status: Never smoker Second Hand Smoke Exposure: No Advance Directives: Yes Advance Directives Date on File: 07/27/20 service: Yes ([employer]) Current occupational status: retired Sexual orientation: Straight/Heterosexual Meds Allergies Allergy/AdvReac Type Severity Reaction Status Date / Time No Known Allergies Allergy Verified 01/25/21 06:43 [No Known Allergies*] Exam Exam Date and Time: February 22, 2021 0912 Height,Weight and Vital Signs: Last Vital Signs Temp 97.6 F 02/22/21 08:19 Pulse 102 H 02/22/21 08:19 Resp 17 02/22/21 08:19 BP 153/99 H 02/22/21 08:19 Pulse Ox 96 02/22/21 08:19 Airway Mallampati Class: II TM Dist: >3cm Neck ROM: Full Assessment and Plan Assessment Anesthesia Assessment: Anesthesia Plan Discussed and Chart Reviewed Final Anesthetic Review NPO: Yes ASA Class: III Final Preanesthetic Review: No Changes in Pt Med Stat, Meds/Allgs Chart Reviewed, Consent Obtained/Reviewed and Anes Risks/Benef Reviewed Patient Risk: Low Procedure Risk: Low Assessment/Block/Sedation in SS: Assess/Block/Sedation-SS Anesthetic Plan Anesthetic Plan: GA Disposition: Standard PACU
--- NOTE | 2021-02-22 10:13 | MHC.SHP ---
Pre-Procedural Eval Section A The patient is an INPATIENT: No Changes since office visit: Yes Patient answered all questions; No Cold of Flu in the past 2 weeks, No New Medical Problems and No Changes in Medication The History & Physical has been completed within 30 days and I have reviewed it.: Yes Section B Chief Complaint: major depressive disorder Allergies: Allergies Allergy/AdvReac Type Severity Reaction Status Date / Time No Known Allergies Allergy Verified 01/25/21 06:43 [No Known Allergies*] Plan I have reviewed the history and physical and performed a pertinent physical examination on my patient. No changes have occurred unless specified.
--- NOTE | 2021-02-22 10:20 | MHC.SHP ---
Pre-Procedural Eval Section B Chief Complaint: major depressive disorder Details of Present Illness: recurrent depression Relevant Family History (Specify if Yes): No Relevant Social History: None Present Medications: see Short Stay Collaborative assessment Medical History: Significant History (pulm emb pud diverticulitis ) History of Previous Operations: No relevant previous surgery (colectomy ) Allergies: Allergies Allergy/AdvReac Type Severity Reaction Status Date / Time No Known Allergies Allergy Verified 01/25/21 06:43 [No Known Allergies*] Review of Systems Sugical H&P ROS: Negative: Cardiovascular and Respiratory and Yes, Specify: Constitution (fatigue ) and Psychiatric (flat insomnia ) Exam Surgical H&P Exam: Normal: Heart and Normal: Lungs Plan Diagnosis/Plan: Unchanged I have reviewed the history and physical and performed a pertinent physical examination on my patient. No changes have occurred unless specified.
--- NOTE | 2021-02-22 10:23 | HO.ECTPROC ---
ECT Procedure Note Diagnosis/Treatment Date of Service: 02/22/21 Diagnosis: Major Depressive Disorder Treatment: Maintenance (04/16) Interval Clinical Notes: remains depressed flat no active si ECT Settings Device: THYMATRON DGx Electrode Placement: Right Unilateral Program/Pulse Width: 0.50 Energy Percent: 100 Seizure Duration By EEG (in seconds): 65 Medications Administration General Anesthetic: Etomidate (12) Muscle Relaxant: Succinylcholine (100) Ancillary Medications Cardiovascular Medications: Labetolol (10 mg) Miscillaneous Medications: Propofol and Midazolam Airway Management Airway Management: Bag Mask Ventilation Treatment Recommendations No Changes Recommended: No change Notes: monitor response to tx
[2021-02-22 11:30] LABS: Basophils Percent Auto 0.3 % (0-2); Eosinophils Percent Auto 0.5 % (0-4); Hematocrit 35.8 % (42-52); Hemoglobin 12.2 g/dl (14.0-18.0); Imm Gran Abs Auto 0.01 X10*3/uL (0.00-0.03); Imm Gran Pct Auto 0.2 % (0.0-0.4); Lymphocytes Absolute Auto 0.5 X10*3/uL (1.2-4.9); Lymphocytes Percent Auto 8.8 % (20-40); MANUAL DIFF FLAG SCAN; Mean Corpuscular HGB Conc 34.1 g/dl (31.0-36.0); Mean Corpuscular Hemoglobin 31.4 pg (27.0-33.0); Mean Platelet Volume 9.2 fL (9.4-12.4); Monocytes Absolute Auto 0.4 X10*3/uL (0.1-1.2); Monocytes Percent Auto 6.6 % (2-11); Neutrophils Absolute Auto 5.1 X10*3/uL (2.0-8.3); Neutrophils Percent Auto 83.6 % (45-73); Platelet Count 157 X10*3/uL (160-400); Red Blood Count 3.89 X10*6/uL (4.60-5.80); Red Cell Distribution Width 15.2 % (11.0-16.0); SCAN SMEAR FLAG 1
[2021-02-22 11:49] LABS: SLIDE REVIEW VERIFIED
[2021-02-22 12:02] LABS: Alanine Aminotransferase 28 U/L (0-40); Albumin Level 3.9 g/dL (3.5-5.0); Alkaline Phosphatase 121 U/L (39-117); Anion Gap 13 (12-20); Aspartate Amino Transferase 22 U/L (5-37); Blood Urea Nitrogen 29 mg/dL (9-16); Carbon Dioxide 23 mmol/L (22-29); Chloride 112 mmol/L (96-108); Estimated Glomerular Filt Rate > 60; Glucose Random 134 mg/dL (60-115); Potassium 3.8 mmol/L (3.3-5.1); Sodium 144 mmol/L (135-145); Total Protein 6.3 g/dL (6.5-8.0)
== END 2021-02-22 12:10 | disposition home or self-care (01) ==
PROVIDERS: Visit Provider Psychiatry & Neurology Psychiatry
PROC: (CPT 90870; principal; 2021-02-22 10:00)
DX: F33.3 Major depressive disorder, recurrent, severe with psychotic symptoms (principal); F03.90 Unspecified dementia, unspecified severity, without behavioral disturbance, psychotic disturbance, mood disturbance, and anxiety; I10 Essential (primary) hypertension; I26.99 Other pulmonary embolism without acute cor pulmonale; I47.1 Supraventricular tachycardia; Z79.02 Long term (current) use of antithrombotics/antiplatelets; Z79.899 Other long term (current) drug therapy
CPT/HCPCS: 36415; 80053; 85025; 90870; 93005; J0330; J2250; J2405

== ENCOUNTER 2021-03-01 06:05 | Day surgery (SDC) | payer MEDICARE, OTHER, SELFPAY ==
[2021-03-01] VITALS (8 sets, daily range): BP systolic 117–175; BP diastolic 70–100; PULSE 74–92; RESP 16–21; TEMP 36.6–37; O2SAT 93–100; BMI 25.1
--- NOTE | 2021-03-01 08:34 | HO.ANESPROP2 ---
[facility] Active Problems Active Problems: All Active Problems (Updated 12/26/20 @ 10:52 by Cora Toscano) Physical deconditioning (Acute) Preoperative cardiovascular examination (Acute) Anemia (Acute) GERD (gastroesophageal reflux disease) (Acute) Past Medical History Medical History COVID-19 vaccine administered Dementia Depression Diverticulitis of colon with perforation GERD (gastroesophageal reflux disease) History of electroconvulsive therapy HTN (hypertension) Hyperlipidemia Major depressive disorder, recurrent, severe with psychotic features Pulmonary embolism SVT (supraventricular tachycardia) Family History Family History Brother Blood clot in vein Other No history of cardiac disorder Surgical History Surgical History H/O colonoscopy H/O hernia repair History of colostomy reversal History of esophagogastroduodenoscopy (EGD) Status post Paula's procedure Social History Social History Household Members: Other Housing: Assisted Living Facility Are you a primary intensive care specialist to a significant other at home: No Do you presently have visiting nurse or other home services: No Alcohol intake: former Second Hand Smoke Exposure: No Are you DNR?: No Advance Directives: No Advance Directives Information Provided: Yes Advance Directives Date on File: 07/27/20 Recently lost weight without trying: No service: Yes ([employer]) Current occupational status: retired Sexual orientation: Straight/Heterosexual Meds Allergies Allergy/AdvReac Type Severity Reaction Status Date / Time No Known Allergies Allergy Verified 01/25/21 06:43 [No Known Allergies*] Exam Exam Date and Time: March 01, 2021 0834 Height,Weight and Vital Signs: Height 5 ft 11 in Weight 180 lb Last Vital Signs Temp 97.8 F 03/01/21 07:15 Pulse 90 03/01/21 07:15 Resp 18 03/01/21 07:15 BP 156/73 H 03/01/21 07:15 Pulse Ox 93 03/01/21 07:15 Airway Mallampati Class: II TM Dist: >3cm Neck ROM: Full Denture: Upper and Lower Heart: RRR Assessment and Plan Assessment Anesthesia Assessment: Anesthesia Plan Discussed and Chart Reviewed Final Anesthetic Review NPO: Yes ASA Class: III Final Preanesthetic Review: No Changes in Pt Med Stat, Meds/Allgs Chart Reviewed, Consent Obtained/Reviewed and Anes Risks/Benef Reviewed Patient Risk: Intermediate Procedure Risk: Low Anesthetic Plan Anesthetic Plan: GA Disposition: Standard PACU
--- NOTE | 2021-03-01 08:39 | MHC.SHP ---
Pre-Procedural Eval Section B Chief Complaint: major depressive disorder Details of Present Illness: RECURRENT DEPRESSION HX CATATONIA Relevant Social History: None Present Medications: see Short Stay Collaborative assessment Medical History: Significant History (COVID PULM EMBOLISM GI BLEED DIVERTICULITIS ) Allergies: Allergies Allergy/AdvReac Type Severity Reaction Status Date / Time No Known Allergies Allergy Verified 01/25/21 06:43 [No Known Allergies*] Review of Systems Sugical H&P ROS: Negative: Cardiovascular, Respiratory and Neurological and Yes, Specify: Psychiatric (ANXIETY NO SI LESS DEPRESSED ) Exam Surgical H&P Exam: Normal: HEENT, Normal: Heart, Normal: Lungs and Normal: Neurological Plan Diagnosis/Plan: Unchanged I have reviewed the history and physical and performed a pertinent physical examination on my patient. No changes have occurred unless specified.
--- NOTE | 2021-03-01 08:41 | HO.ECTPROC ---
ECT Procedure Note Diagnosis/Treatment Date of Service: 03/01/21 Diagnosis: Major Depressive Disorder Treatment: Maintenance (05/18) Interval Clinical Notes: flat but less depressed crowley affect ECT Settings Device: THYMATRON DGx Electrode Placement: Right Unilateral Program/Pulse Width: 0.50 Energy Percent: 100 Seizure Duration By EEG (in seconds): 51 Medications Administration General Anesthetic: Etomidate (12) Muscle Relaxant: Succinylcholine (100) Ancillary Medications Cardiovascular Medications: Labetolol (10 mg) Miscillaneous Medications: Propofol and Midazolam Airway Management Airway Management: Bag Mask Ventilation Treatment Recommendations No Changes Recommended: No change Notes: continue maint tx Pt Tolerated Procedure w/o Issue: Yes
== END 2021-03-01 10:00 | disposition home or self-care (01) ==
PROVIDERS: Visit Provider Psychiatry & Neurology Psychiatry
PROC: (CPT 90870; principal; 2021-03-01 07:30)
DX: F33.3 Major depressive disorder, recurrent, severe with psychotic symptoms (principal); F03.90 Unspecified dementia, unspecified severity, without behavioral disturbance, psychotic disturbance, mood disturbance, and anxiety; I10 Essential (primary) hypertension; I47.1 Supraventricular tachycardia; I26.99 Other pulmonary embolism without acute cor pulmonale; Z79.01 Long term (current) use of anticoagulants; Z79.899 Other long term (current) drug therapy; Z86.16 Personal history of COVID-19; Z87.19 Personal history of other diseases of the digestive system
CPT/HCPCS: 90870; J0330; J2250; J2405

== ENCOUNTER 2021-03-15 06:04 | Day surgery (SDC) | payer MEDICARE, OTHER, SELFPAY ==
[2021-03-15] VITALS (9 sets, daily range): BP systolic 111–140; BP diastolic 70–85; PULSE 69–105; RESP 14–24; TEMP 36.2–37.2; O2SAT 93–98; BMI 25.1
--- NOTE | 2021-03-15 07:39 | HO.ANESPROP2 ---
ON LICENSE OF [facility] Active Problems Active Problems: All Active Problems (Updated 12/26/20 @ 10:52 by Cora Toscano) Physical deconditioning (Acute) Preoperative cardiovascular examination (Acute) Anemia (Acute) GERD (gastroesophageal reflux disease) (Acute) Past Medical History Medical History COVID-19 vaccine administered Dementia Depression Diverticulitis of colon with perforation GERD (gastroesophageal reflux disease) History of electroconvulsive therapy HTN (hypertension) Hyperlipidemia Major depressive disorder, recurrent, severe with psychotic features Pulmonary embolism SVT (supraventricular tachycardia) Family History Family History Brother Blood clot in vein Other No history of cardiac disorder Surgical History Surgical History H/O colonoscopy H/O hernia repair History of colostomy reversal History of esophagogastroduodenoscopy (EGD) Status post Paula's procedure Social History Social History Household Members: Other Housing: Assisted Living Facility Are you a primary primary care provider to a significant other at home: No Do you presently have visiting nurse or other home services: No Alcohol intake: former Second Hand Smoke Exposure: No Are you DNR?: No Advance Directives: No Advance Directives Information Provided: Yes Advance Directives Date on File: 07/27/20 service: Yes ([employer]) Current occupational status: retired Sexual orientation: Straight/Heterosexual Meds Allergies Allergy/AdvReac Type Severity Reaction Status Date / Time No Known Allergies Allergy Verified 01/25/21 06:43 [No Known Allergies*] Exam Exam Date and Time: March 15, 2021 0739 Height,Weight and Vital Signs: Height 5 ft 11 in Weight 81.647 kg Last Vital Signs Temp 98.9 F 03/15/21 06:41 Pulse 105 H 03/15/21 06:41 Resp 24 H 03/15/21 06:41 BP 140/85 H 03/15/21 06:41 Pulse Ox 93 03/15/21 06:41 Airway Mallampati Class: II TM Dist: >3cm Neck ROM: Full Denture: Upper Heart: RRR Lungs: CTa Assessment and Plan Assessment Anesthesia Assessment: Anesthesia Plan Discussed and Chart Reviewed Final Anesthetic Review NPO: Yes ASA Class: III Final Preanesthetic Review: No Changes in Pt Med Stat and Consent Obtained/Reviewed Patient Risk: Intermediate Procedure Risk: Intermediate Anesthetic Plan Anesthetic Plan: GA Disposition: Standard PACU
--- NOTE | 2021-03-15 07:46 | P.HPSUR_ITS ---
Pre-Procedural Eval Section A The patient is an INPATIENT: No Changes since office visit: Yes Cold of Flu in the past 2 weeks, Yes New Medical Problems, Yes Changes in Medication and Yes Patient answered all questions The History & Physical has been completed within 30 days and I have reviewed it.: Yes Section B Chief Complaint: Severe Depression Details of Present Illness: see HPI Relevant Family History (Specify if Yes): No Relevant Social History: None Present Medications: see Short Stay Collaborative assessment Medical History: No relevant PMH History of Previous Operations: No relevant previous surgery Allergies: Allergies Allergy/AdvReac Type Severity Reaction Status Date / Time No Known Allergies Allergy Verified 01/25/21 06:43 [No Known Allergies*] Review of Systems Sugical H&P ROS: Negative: Constitution, Cardiovascular, Respiratory, Neuro logical, Psychiatric, Hem-Onc, Allergic/Immunologic, Gastrointestinal, Genitourinary, Musculoskeletal, Integumentary, Endocrine and Eyes/Ears/Nose/Throat Exam Surgical H&P Exam: Normal: HEENT, Normal: Heart, Normal: Lungs, Normal: Extremities, Normal: Abdomen, Normal: Skin and Normal: Neurological Plan Diagnosis/Plan: Unchanged I have reviewed the history and physical and performed a pertinent physical examination on my patient. No changes have occurred unless specified.
--- NOTE | 2021-03-15 07:48 | HO.ECTPROC ---
ECT Procedure Note Diagnosis/Treatment Date of Service: 03/15/21 Diagnosis: Major Depressive Disorder Current Treatment Number: 9 Treatment: Series Interval Clinical Notes: reported no improvement on his mood but staff has seen him more active with brighter affect ECT Settings Device: THYMATRON DGx Electrode Placement: Right Unilateral Program/Pulse Width: 0.50 Energy Percent: 100 Seizure Duration By EEG (in seconds): 62 By Motor Observation (in seconds): 32 Medications Administration General Anesthetic: Etomidate (12) Muscle Relaxant: Succinylcholine (100) Ancillary Medications Anti-emetics: Zofran - Pre ECT Cardiovascular Medications: Labetolol (10) Miscillaneous Medications: Propofol and Midazolam (2) Airway Management Airway Management: Bag Mask Ventilation Treatment Recommendations No Changes Recommended: No change Pt Tolerated Procedure w/o Issue: Yes
== END 2021-03-15 09:30 | disposition home or self-care (01) ==
PROVIDERS: Psychiatry & Neurology Psychiatry; Visit Provider Psychiatry & Neurology Psychiatry
PROC: (CPT 90870; principal; 2021-03-15 07:00)
DX: F33.3 Major depressive disorder, recurrent, severe with psychotic symptoms (principal); F03.90 Unspecified dementia, unspecified severity, without behavioral disturbance, psychotic disturbance, mood disturbance, and anxiety; I10 Essential (primary) hypertension; I26.99 Other pulmonary embolism without acute cor pulmonale; Z79.01 Long term (current) use of anticoagulants; Z79.899 Other long term (current) drug therapy
CPT/HCPCS: 90870; J0330; J2250; J2405

== ENCOUNTER 2021-03-29 06:13 | Day surgery (SDC) | payer MEDICARE, OTHER, SELFPAY ==
[2021-03-29] VITALS (7 sets, daily range): BP systolic 119–150; BP diastolic 71–86; PULSE 73–105; RESP 16–20; TEMP 36.6–36.7; O2SAT 92–97; BMI 25.3; BMI 25.4
--- NOTE | 2021-03-29 06:47 | HO.ANESPROP2 ---
[facility] Active Problems Active Problems: All Active Problems (Updated 12/26/20 @ 10:52 by Cora Toscano) Physical deconditioning (Acute) Preoperative cardiovascular examination (Acute) Anemia (Acute) GERD (gastroesophageal reflux disease) (Acute) Past Medical History Medical History COVID-19 vaccine administered Dementia Depression Diverticulitis of colon with perforation GERD (gastroesophageal reflux disease) History of electroconvulsive therapy HTN (hypertension) Hyperlipidemia Major depressive disorder, recurrent, severe with psychotic features Pulmonary embolism SVT (supraventricular tachycardia) Family History Family History Brother Blood clot in vein Other No history of cardiac disorder Surgical History Surgical History H/O colonoscopy H/O hernia repair History of colostomy reversal History of esophagogastroduodenoscopy (EGD) Status post Paula's procedure Social History Social History Household Members: Other Housing: Assisted Living Facility Are you a primary caretaker to a significant other at home: No Do you presently have visiting nurse or other home services: No Alcohol intake: former Second Hand Smoke Exposure: No Advance Directives: No Advance Directives Information Provided: Yes Advance Directives Date on File: 07/27/20 service: Yes ([employer]) Current occupational status: retired Sexual orientation: Straight/Heterosexual Meds Allergies Allergy/AdvReac Type Severity Reaction Status Date / Time No Known Allergies Allergy Verified 01/25/21 06:43 [No Known Allergies*] Exam Exam Date and Time: March 29, 2021 0647 Height,Weight and Vital Signs: Height 5 ft 11 in Weight 82.544 kg Last Vital Signs Temp 98.1 F 03/29/21 06:46 Pulse 105 H 03/29/21 06:46 Resp 20 03/29/21 06:46 BP 149/86 H 03/29/21 06:46 Pulse Ox 94 03/29/21 06:46 Airway Mallampati Class: II TM Dist: >3cm Neck ROM: Full Denture: Upper Heart: rrr Lungs: cta Assessment and Plan Assessment Anesthesia Assessment: Anesthesia Plan Discussed and Chart Reviewed Final Anesthetic Review NPO: Yes ASA Class: III Final Preanesthetic Review: No Changes in Pt Med Stat and Consent Obtained/Reviewed Patient Risk: Intermediate Procedure Risk: Intermediate Anesthetic Plan Anesthetic Plan: GA Disposition: Standard PACU
--- NOTE | 2021-03-29 07:56 | MHC.SHP ---
Pre-Procedural Eval Section A Date of Service: 03/29/21 The patient is an INPATIENT: No Changes since office visit: Yes Changes in Medication and Yes Patient answered all questions; No Cold of Flu in the past 2 weeks and No New Medical Problems The History & Physical has been completed within 30 days and I have reviewed it.: Yes Section B Chief Complaint: major depression Allergies: Allergies Allergy/AdvReac Type Severity Reaction Status Date / Time No Known Allergies Allergy Verified 01/25/21 06:43 [No Known Allergies*] Plan I have reviewed the history and physical and performed a pertinent physical examination on my patient. No changes have occurred unless specified.
--- NOTE | 2021-03-29 07:57 | HO.ECTPROC ---
ECT Procedure Note Diagnosis/Treatment Date of Service: 03/29/21 Diagnosis: Major Depressive Disorder Treatment: Maintenance Interval Clinical Notes: Patient reportedly with a much crowley affect feeling significantly improved still complains of insomnia ECT Settings Device: THYMATRON DGx Program/Pulse Width: 0.50 Energy Percent: 100 Seizure Duration By EEG (in seconds): 40 Ancillary Medications Anti-emetics: Zofran - Pre ECT Cardiovascular Medications: Labetolol (10) Miscillaneous Medications: Propofol and Midazolam (2) Treatment Recommendations No Changes Recommended: No change Notes: Follow-up 3-4 weeks Pt Tolerated Procedure w/o Issue: Yes
== END 2021-03-29 10:02 | disposition home or self-care (01) ==
PROVIDERS: Visit Provider Psychiatry & Neurology Psychiatry
PROC: (CPT 90870; principal; 2021-03-29 15:30)
DX: F33.3 Major depressive disorder, recurrent, severe with psychotic symptoms (principal); G47.00 Insomnia, unspecified; F03.90 Unspecified dementia, unspecified severity, without behavioral disturbance, psychotic disturbance, mood disturbance, and anxiety; I10 Essential (primary) hypertension; I26.99 Other pulmonary embolism without acute cor pulmonale; Z79.01 Long term (current) use of anticoagulants
CPT/HCPCS: 90870; J0330; J2250; J2405

== ENCOUNTER 2021-04-19 08:03 | Day surgery (SDC) | payer MEDICARE, OTHER, SELFPAY ==
[2021-04-19] VITALS (7 sets, daily range): BP systolic 101–149; BP diastolic 63–100; PULSE 81–121; RESP 18–20; TEMP 36.6–37.1; O2SAT 91–96; BMI 25.4
--- NOTE | 2021-04-19 09:05 | MHC.SHP ---
Pre-Procedural Eval Section A Date of Service: 04/19/21 The patient is an INPATIENT: No Changes since office visit: Yes Patient answered all questions; No Cold of Flu in the past 2 weeks, No New Medical Problems and No Changes in Medication The History & Physical has been completed within 30 days and I have reviewed it.: Yes Section B Chief Complaint: major depression Allergies: Allergies Allergy/AdvReac Type Severity Reaction Status Date / Time No Known Allergies Allergy Verified 01/25/21 06:43 [No Known Allergies*] Plan I have reviewed the history and physical and performed a pertinent physical examination on my patient. No changes have occurred unless specified.
--- NOTE | 2021-04-19 09:05 | HO.ANESPROP2 ---
[facility] Active Problems Active Problems: All Active Problems (Updated 04/03/21 @ 11:22 by Mami Deleon MD) Depression (Acute) Physical deconditioning (Acute) Preoperative cardiovascular examination (Acute) Anemia (Acute) GERD (gastroesophageal reflux disease) (Acute) Past Medical History Medical History COVID-19 vaccine administered Dementia Depression Diverticulitis of colon with perforation GERD (gastroesophageal reflux disease) History of electroconvulsive therapy HTN (hypertension) Hyperlipidemia Major depressive disorder, recurrent, severe with psychotic features Pulmonary embolism SVT (supraventricular tachycardia) Family History Family History Brother Blood clot in vein Other No history of cardiac disorder Surgical History Surgical History H/O colonoscopy H/O hernia repair History of colostomy reversal History of esophagogastroduodenoscopy (EGD) Status post Paula's procedure Social History Social History Household Members: Other Housing: Assisted Living Facility Are you a primary home care manager to a significant other at home: No Do you presently have visiting nurse or other home services: No Alcohol intake: former Second Hand Smoke Exposure: No Are you DNR?: No Advance Directives: No Advance Directives Information Provided: Yes Advance Directives Date on File: 07/27/20 service: Yes ([employer]) Current occupational status: retired Sexual orientation: Straight/Heterosexual Meds Allergies Allergy/AdvReac Type Severity Reaction Status Date / Time No Known Allergies Allergy Verified 01/25/21 06:43 [No Known Allergies*] Exam Exam Date and Time: April 19, 2021 0905 Height,Weight and Vital Signs: Height 5 ft 11 in Weight 82.554 kg Last Vital Signs Temp 98.7 F 04/19/21 08:25 Pulse 121 H 04/19/21 08:25 Resp 20 04/19/21 08:25 BP 149/100 H 04/19/21 08:25 Airway Mallampati Class: II TM Dist: >3cm Neck ROM: Full Assessment and Plan Assessment Anesthesia Assessment: Anesthesia Plan Discussed and Chart Reviewed Final Anesthetic Review NPO: Yes ASA Class: III Final Preanesthetic Review: No Changes in Pt Med Stat, Meds/Allgs Chart Reviewed, Consent Obtained/Reviewed and Anes Risks/Benef Reviewed Patient Risk: Intermediate Procedure Risk: Low Assessment/Block/Sedation in SS: Assess/Block/Sedation-SS Anesthetic Plan Anesthetic Plan: GA Disposition: Standard PACU
--- NOTE | 2021-04-19 09:34 | HO.ECTPROC ---
ECT Procedure Note Diagnosis/Treatment Date of Service: 04/19/21 Diagnosis: Major Depressive Disorder Treatment: Maintenance ECT Settings Device: THYMATRON DGx Electrode Placement: Right Unilateral Program/Pulse Width: 0.25 Energy Percent: 100 Seizure Duration By EEG (in seconds): 38 Medications Administration General Anesthetic: Etomidate (12) Muscle Relaxant: Succinylcholine (100) Ancillary Medications Analgesics: Torodol - Pre ECT Anti-emetics: Zofran - Pre ECT Cardiovascular Medications: Labetolol Miscillaneous Medications: Propofol and Midazolam Airway Management Airway Management: Bag Mask Ventilation Treatment Recommendations Program/Pulse Width: 0.50 Energy Percent: 100 Notes: Follow-up with Dr. Sims follow-up ECT four week Pt Tolerated Procedure w/o Issue: Yes
== END 2021-04-19 11:04 | disposition home or self-care (01) ==
PROVIDERS: Visit Provider Psychiatry & Neurology Psychiatry
PROC: (CPT 90870; principal; 2021-04-19 09:00)
DX: F32.9 Major depressive disorder, single episode, unspecified (principal); F03.90 Unspecified dementia, unspecified severity, without behavioral disturbance, psychotic disturbance, mood disturbance, and anxiety; I10 Essential (primary) hypertension; D64.9 Anemia, unspecified; Z79.899 Other long term (current) drug therapy
CPT/HCPCS: 90870; J0330; J2250; J2405

== ENCOUNTER 2021-05-17 06:09 | Day surgery (SDC) | payer MEDICARE, OTHER, SELFPAY ==
[2021-05-17] VITALS (8 sets, daily range): BP systolic 113–197; BP diastolic 56–110; PULSE 84–98; RESP 14–20; TEMP 36.2–36.8; O2SAT 93–97; BMI 25.4
--- NOTE | 2021-05-17 07:02 | MHC.SHP ---
Pre-Procedural Eval Section A Date of Service: 05/17/21 The patient is an INPATIENT: No Changes since office visit: No Cold of Flu in the past 2 weeks, No New Medical Problems, No Changes in Medication and No Patient answered all questions The History & Physical has been completed within 30 days and I have reviewed it.: No Section B Chief Complaint: major depressive disorder Details of Present Illness: Stable medically Relevant Family History (Specify if Yes): No Relevant Social History: None Present Medications: None Medical History: No relevant PMH History of Previous Operations: No relevant previous surgery Allergies: Allergies Allergy/AdvReac Type Severity Reaction Status Date / Time No Known Allergies Allergy Verified 01/25/21 06:43 [No Known Allergies*] Review of Systems Sugical H&P ROS: Negative: Constitution, Cardiovascular, Respiratory, Neurological, Psychiatric, Hem-Onc, Allergic/Immunologic, Gastrointestinal, Genitourinary, Musculoskeletal, Integumentary, Endocrine and Eyes/Ears/Nose/Throat Exam Surgical H&P Exam: Normal: HEENT, Normal: Heart, Normal: Lungs, Normal: Extremities, Normal: Abdomen, Normal: Skin and Normal: Neurological Plan Diagnosis/Plan: Unchanged I have reviewed the history and physical and performed a pertinent physical examination on my patient. No changes have occurred unless specified.
--- NOTE | 2021-05-17 07:03 | P.CONAN_ITS ---
[facility] Active Problems Active Problems: All Active Problems (Updated 04/03/21 @ 11:22 by Mami Deleon MD) Depression (Acute) Physical deconditioning (Acute) Preoperative cardiovascular examination (Acute) Anemia (Acute) GERD (gastroesophageal reflux disease) (Acute) Past Medical History Medical History COVID-19 vaccine administered Dementia Depression Diverticulitis of colon with perforation GERD (gastroesophageal reflux disease) History of electroconvulsive therapy HTN (hypertension) Hyperlipidemia Major depressive disorder, recurrent, severe with psychotic features Pulmonary embolism SVT (supraventricular tachycardia) Family History Family History Brother Blood clot in vein Other No history of cardiac disorder Family history of problems with anesthesia: No Surgical History Surgical History H/O colonoscopy H/O hernia repair History of colostomy reversal History of esophagogastroduodenoscopy (EGD) Status post Paula's procedure History of Problems with Anesthesia: No Social History Social History Household Members: Other Housing: Assisted Living Facility Are you a primary customer care voice consultant to a significant other at home: No Do you presently have visiting nurse or other home services: No Alcohol intake: former Second Hand Smoke Exposure: No Are you DNR?: No Advance Directives: No Advance Directives Information Provided: Yes Advance Directives Date on File: 07/27/20 Recently lost weight without trying: No service: Yes ([employer]) Current occupational status: retired Sexual orientation: Straight/Heterosexual Meds Allergies Allergy/AdvReac Type Severity Reaction Status Date / Time No Known Allergies Allergy Verified 01/25/21 06:43 [No Known Allergies*] Exam Exam Date and Time: May 17, 2021 0703 Height,Weight and Vital Signs: Height 5 ft 11 in Weight 82.554 kg Last Vital Signs Temp 98.3 F 05/17/21 06:28 Pulse 98 05/17/21 06:28 Resp 16 05/17/21 06:28 BP 151/88 H 05/17/21 06:28 Pulse Ox 96 05/17/21 06:28 Airway Mallampati Class: II TM Dist: >3cm Neck ROM: Full Assessment and Plan Assessment Anesthesia Assessment: Anesthesia Plan Discussed and Chart Reviewed Final Anesthetic Review Family History of Problems with Anesthesia: No History of Problems with Anesthesia: No NPO: Yes ASA Class: III Final Preanesthetic Review: No Changes in Pt Med Stat, Meds/Allgs Chart Reviewed, Consent Obtained/Reviewed and Anes Risks/Benef Reviewed Patient Risk: Low Procedure Risk: Low Assessment/Block/Sedation in SS: Assess/Block/Sedation-SS Anesthetic Plan Anesthetic Plan: GA Disposition: Standard PACU
--- NOTE | 2021-05-17 07:04 | HO.ECTPROC ---
ECT Procedure Note Diagnosis/Treatment Date of Service: 05/17/21 Diagnosis: Major Depressive Disorder Previous ECT Date: 04/19/21 Treatment: Maintenance Interval Clinical Notes: The patient reported been as usual , no acute symptoms at this moment. The patient stated that he doesn't like to do ECT. ECT Settings Device: THYMATRON DGx Electrode Placement: Right Unilateral Program/Pulse Width: 0.25 Energy Percent: 100 Seizure Duration By EEG (in seconds): 50 Medications Administration General Anesthetic: Etomidate (12) Muscle Relaxant: Succinylcholine (100) Ancillary Medications Analgesics: Torodol - Pre ECT Anti-emetics: Zofran - Pre ECT Miscillaneous Medications: Propofol and Midazolam Airway Management Airway Management: Bag Mask Ventilation Treatment Recommendations No Changes Recommended: No change Pt Tolerated Procedure w/o Issue: Yes
== END 2021-05-17 09:35 | disposition home or self-care (01) ==
PROVIDERS: Psychiatry & Neurology Psychiatry; Visit Provider Psychiatry & Neurology Psychiatry
PROC: (CPT 90870; principal; 2021-05-17 07:00)
DX: F33.2 Major depressive disorder, recurrent severe without psychotic features (principal); I26.99 Other pulmonary embolism without acute cor pulmonale; Z79.01 Long term (current) use of anticoagulants
CPT/HCPCS: 90870; J0330; J2405

== ENCOUNTER 2021-06-14 06:10 | Day surgery (SDC) | payer MEDICARE, OTHER, SELFPAY ==
[2021-06-14] VITALS (7 sets, daily range): BP systolic 105–133; BP diastolic 70–81; PULSE 69–84; RESP 16–22; TEMP 36.5–37; O2SAT 94–97; BMI 25.1
--- NOTE | 2021-06-14 06:41 | HO.ANESPROP2 ---
[facility], [facility] Active Problems Active Problems: All Active Problems (Updated 04/03/21 @ 11:22 by Mami Deleon MD) Depression (Acute) Physical deconditioning (Acute) Preoperative cardiovascular examination (Acute) Anemia (Acute) GERD (gastroesophageal reflux disease) (Acute) Past Medical History Medical History COVID-19 vaccine administered Dementia Depression Diverticulitis of colon with perforation GERD (gastroesophageal reflux disease) History of electroconvulsive therapy HTN (hypertension) Hyperlipidemia Major depressive disorder, recurrent, severe with psychotic features Pulmonary embolism SVT (supraventricular tachycardia) Family History Family History Brother Blood clot in vein Other No history of cardiac disorder Family history of problems with anesthesia: No Surgical History Surgical History H/O colonoscopy H/O hernia repair History of colostomy reversal History of esophagogastroduodenoscopy (EGD) Status post Paula's procedure History of Problems with Anesthesia: No Social History Social History Household Members: Other Housing: Assisted Living Facility Are you a primary director of managed care to a significant other at home: No Do you presently have visiting nurse or other home services: No Alcohol intake: former Second Hand Smoke Exposure: No Advance Directives: No Advance Directives Information Provided: Yes Advance Directives Date on File: 07/27/20 service: Yes ([employer]) Current occupational status: retired Sexual orientation: Straight/Heterosexual Meds Allergies Allergy/AdvReac Type Severity Reaction Status Date / Time No Known Allergies Allergy Verified 01/25/21 06:43 [No Known Allergies*] Exam Exam Date and Time: June 14, 2021 0641 Airway Mallampati Class: II TM Dist: >3cm Neck ROM: Full Heart: rrr Lungs: cta Assessment and Plan Assessment Anesthesia Assessment: Anesthesia Plan Discussed and Chart Reviewed Final Anesthetic Review Family History of Problems with Anesthesia: No History of Problems with Anesthesia: No NPO: Yes ASA Class: III Final Preanesthetic Review: No Changes in Pt Med Stat, Meds/Allgs Chart Reviewed and Consent Obtained/Reviewed Patient Risk: Intermediate Procedure Risk: Intermediate Anesthetic Plan Anesthetic Plan: GA Disposition: Standard PACU
--- NOTE | 2021-06-14 07:10 | MHC.SHP ---
Pre-Procedural Eval Section A Date of Service: 06/14/21 The patient is an INPATIENT: No Changes since office visit: Yes Patient answered all questions; No Cold of Flu in the past 2 weeks, No New Medical Problems and No Changes in Medication The History & Physical has been completed within 30 days and I have reviewed it.: Yes Section B Chief Complaint: depression Allergies: Allergies Allergy/AdvReac Type Severity Reaction Status Date / Time No Known Allergies Allergy Verified 01/25/21 06:43 [No Known Allergies*] Plan I have reviewed the history and physical and performed a pertinent physical examination on my patient. No changes have occurred unless specified.
--- NOTE | 2021-06-14 07:28 | HO.ECTPROC ---
ECT Procedure Note Diagnosis/Treatment Date of Service: 06/14/21 Diagnosis: Major Depressive Disorder Treatment: Maintenance Interval Clinical Notes: pt has difficulty anticipating ect dr estrada trying to arrange ect ECT Settings Device: THYMATRON DGx Electrode Placement: Right Unilateral Program/Pulse Width: 0.25 Energy Percent: 100 Seizure Duration By EEG (in seconds): 63 Medications Administration General Anesthetic: Etomidate (12) Muscle Relaxant: Succinylcholine (100) Ancillary Medications Miscillaneous Medications: Propofol (30) Airway Management Airway Management: Bag Mask Ventilation Treatment Recommendations Notes: would give versed if has another ect helps with post ect anxiety
== END 2021-06-14 09:14 | disposition home or self-care (01) ==
PROVIDERS: Visit Provider Psychiatry & Neurology Psychiatry
PROC: (CPT 90870; principal; 2021-06-14 07:00)
DX: F32.9 Major depressive disorder, single episode, unspecified (principal)
CPT/HCPCS: 90870; J0330; J2405

== ENCOUNTER 2021-07-28 20:49 | Emergency (ER) | payer OTHER, MEDICARE, SELFPAY ==
--- NOTE | ~2021-07-28 | XR_ITS ---
EXAMINATION: XR CHEST CLINICAL INFORMATION: Cough and dyspnea COMPARISON: 10/10/2020 TECHNIQUE: Frontal view of the chest was obtained. FINDINGS: Heart size within normal limits. No evidence CHF. Lungs are hypoinflated. Again noted is some atelectasis in the left mid lung slightly improved. There is a new area of linear atelectasis present in right perihilar region. No gross consolidation or pleural effusion is seen. XR/XR chest 1V IMPRESSION: No acute intrathoracic disease. Bilateral atelectasis, improved on the left and slightly worse on the right.
[2021-07-28 20:57] VITALS: BP 129/89; PULSE 75; O2SAT 98
[2021-07-28 20:58] VITALS: BP 127/73; PULSE 71; RESP 18; TEMP 36.9; O2SAT 95
[2021-07-28 21:06] VITALS: BMI 27.1
[2021-07-28 21:15] LABS: COVID-19 Test Negative (Negative); IDNOW Serial# 9DD0AD1C
--- NOTE | 2021-07-28 21:20 | ED_ITS ---
HPI - URI/Sore Throat General Chief Complaint: Upper Respiratory Symptoms Stated Complaint: WEAKNESS, COUGH Time Seen by Provider: 07/28/21 21:20 Source: patient Mode of arrival: EMS History of Present Illness HPI Narrative: Patient history of dementia from assisted comes here for chronic cough for years patient makes himself to cough, asking for COVID testing no fever no chills no shortness of breath patient was saturating 95% on room air Related Data Previous Rx's Medication Instructions Recorded apixaban 5 mg tablet (Eliquis) 5 mg PO BID #60 tab 10/30/20 atorvastatin 80 mg tablet 80 mg PO BEDTIME #30 tab 10/30/20 docusate sodium 100 mg capsule 100 mg PO BID 60 Days #120 cap 10/30/20 (Colace) ferrous sulfate 325 mg (65 mg 325 mg PO DAILY 30 Days #30 tab 10/30/20 iron) tablet finasteride 5 mg tablet 5 mg PO DAILY 30 Days #30 tab 10/30/20 olanzapine 10 mg tablet 10 mg PO BEDTIME 30 Days #30 tab 10/30/20 olanzapine 2.5 mg tablet 2.5 mg PO BID PRN 30 Days #60 tab 10/30/20 omeprazole 40 mg capsule,delayed 40 mg PO BID@0630,1630 30 Days #60 10/30/20 release cap oxybutynin chloride 5 mg tablet 5 mg PO DAILY 30 Days #30 tab 10/30/20 polyethylene glycol 3350 17 gram 17 g PO DAILY 30 Days ea 10/30/20 oral powder packet (Miralax) trazodone 50 mg tablet 50 mg PO BEDTIME 30 Days #30 tab 10/30/20 vilazodone 10 mg tablet (Viibryd) 10 mg PO DAILY 30 Days #30 tab 10/30/20 apixaban 5 mg tablet (Eliquis) 5 mg PO BID 30 Days #60 tab 11/07/20 atorvastatin 80 mg tablet 80 mg PO BEDTIME 30 Days #30 tab 11/07/20 olanzapine 10 mg tablet 10 mg PO BEDTIME #30 tab 11/07/20 vilazodone 10 mg tablet (Viibryd) 10 mg PO DAILY #30 tab 11/07/20 benzonatate 100 mg capsule 100 mg PO TID PRN #30 cap 07/28/21 (Irene Young) Allergies Allergy/AdvReac Type Severity Reaction Status Date / Time No Known Allergies Allergy Verified 01/25/21 06:43 [No Known Allergies*] Review of Systems Review of Systems: Yes all other systems are reviewed and are negative [facility] Past Medical History Medical History COVID-19 vaccine administered Dementia Depression Diverticulitis of colon with perforation GERD (gastroesophageal reflux disease) History of electroconvulsive therapy HTN (hypertension) Hyperlipidemia Major depressive disorder, recurrent, severe with psychotic features Pulmonary embolism SVT (supraventricular tachycardia) Surgical History H/O colonoscopy H/O hernia repair History of colostomy reversal History of esophagogastroduodenoscopy (EGD) Status post Paula's procedure Family History Family History Brother Blood clot in vein Other No history of cardiac disorder Social History Social History Household Members: Other Housing: Assisted Living Facility Are you a primary group care worker to a significant other at home: No Do you presently have visiting nurse or other home services: No Alcohol intake: former Second Hand Smoke Exposure: No Advance Directives: Yes Advance Directives on File: Yes Advance Directives Date on File: 07/27/20 service: Yes ([employer]) Current occupational status: retired Sexual orientation: Straight/Heterosexual Physical Exam Vital Signs: Vital Signs: Last Vital Signs Temp 98.9 F 07/28/21 22:40 Pulse 77 07/28/21 22:40 Resp 18 07/28/21 22:40 BP 130/70 07/28/21 22:40 Pulse Ox 95 07/28/21 22:40 Body Mass Index 27.1 Appearance: Alert. Oriented X3. No acute distress. Very anxious, forcing himself to cough Eyes: PERRLA, ENT: Pharynx normal. Oral Mucosa moist Neck: Normal inspection. Neck supple. CVS: Normal heart rate and rhythm. Pulses normal. Respiratory: No respiratory distress. Equal air entry bilateral, no wheezing/rales/rhonchi Abdomen: Soft and nontender. Bowel sounds are present, no mass palpable, no CVA tenderness Skin: Skin warm and dry. Normal skin color. Normal skin turgor. Extremities: No lower extremity edema. No calf tenderness Neuro: Oriented X 3. MDM - URI/Sore Throat MDM Narrative Medical decision making narrative: Patient chest x-ray negative for acute COVID negative patient seen forcing himself to cough , discharge patient back to assisted advised to take Tessalon Lab Data Attestation: I reviewed the patient's lab results. Labs: Lab Results 07/28/21 Range/Units 20:57 COVID-19 ([facility]) Negative (Negative) COVID-19 Clin Com See Note Discharge Plan Discharge Clinical Impression: Cough Patient Disposition: Home, Self-Care Instructions: Chronic Cough (ED) Additional Instructions: Cough drops as prescribed Follow with PCP Prescriptions: New benzonatate [Tessalon Perles] 100 mg capsule 100 mg PO TID PRN (Reason: cough) Qty: 30 RF: 0 No Action olanzapine 10 mg Tablet 10 mg PO BEDTIME 30 Days Qty: 30 RF: 0 olanzapine 2.5 mg Tablet 2.5 mg PO BID PRN (Reason: Anxiety) 30 Days Qty: 60 RF: 0 Viibryd 10 mg Tablet 10 mg PO DAILY 30 Days Qty: 30 RF: 0 omeprazole 40 mg Capsule,Delayed Release(Dr/Ec) 40 mg PO BID@0630,1630 30 Days Qty: 60 RF: 0 atorvastatin 80 mg Tablet 80 mg PO BEDTIME Qty: 30 RF: 0 trazodone 50 mg Tablet 50 mg PO BEDTIME 30 Days Qty: 30 RF: 0 polyethylene glycol 3350 [Miralax] 17 gram Powder In Packet 17 g PO DAILY 30 Days RF: 0 ferrous sulfate 325 mg (65 mg iron) Tablet 325 mg PO DAILY 30 Days Qty: 30 RF: 0 docusate sodium [Colace] 100 mg Capsule 100 mg PO BID 60 Days Qty: 120 RF: 0 oxybutynin chloride 5 mg tablet 5 mg PO DAILY 30 Days Qty: 30 RF: 0 finasteride 5 mg Tablet 5 mg PO DAILY 30 Days Qty: 30 RF: 0 Eliquis 5 mg tablet 5 mg PO BID Qty: 60 RF: 0 Eliquis 5 mg Tablet 5 mg PO BID 30 Days Qty: 60 RF: 0 atorvastatin 80 mg Tablet 80 mg PO BEDTIME 30 Days Qty: 30 RF: 0 Viibryd 10 mg tablet 10 mg PO DAILY Qty: 30 RF: 0 olanzapine 10 mg tablet 10 mg PO BEDTIME Qty: 30 RF: 0
[2021-07-28 22:40] VITALS: BP 130/70; PULSE 77; RESP 18; TEMP 37.2; O2SAT 95; O2SAT 96
== END 2021-07-29 00:28 | disposition home or self-care (01) ==
PROVIDERS: Emergency Provider Internal Medicine
DX: R05.9 Cough, unspecified (principal); Z79.899 Other long term (current) drug therapy; Z20.822 Contact with and (suspected) exposure to COVID-19
CPT/HCPCS: 36415; 71045; 87635; 99284

== ENCOUNTER 2021-08-17 19:51 | Inpatient (IN) | payer MEDICARE, OTHER, SELFPAY ==
--- NOTE | ~2021-08-17 | XR_ITS ---
EXAMINATION: XR CHEST CLINICAL INFORMATION: Pre-ECT COMPARISON: Chest radiographs 07/28/2021, 10/10/2020, CT chest noncontrast 10/04/2020 TECHNIQUE: Portable upright AP view of the chest was obtained. FINDINGS: Radiograph is obtained with patient rotated to the right and caudad angulation of the x-ray being. The lungs are grossly clear. There is no vascular congestion or airspace consolidation or focal groundglass opacity. No effusion. Heart is within normal size. There is a retrocardiac mass consistent with a hiatal hernia on CT measuring approximately 9 cm in diameter. Assessment of hilar and mediastinal contours otherwise limited by the rotation. Bony structures are unremarkable. XR/XR chest 1V IMPRESSION: 1. Lungs grossly clear. No infiltrate or effusion. 2. Hiatal hernia, approximately 9 cm.
--- NOTE | ~2021-08-17 | CT_ITS ---
EXAMINATION: CT HEAD WITHOUT CONTRAST CLINICAL INFORMATION: Fall. Head trauma. COMPARISON: Previous head CT scans, most recent October 2020 TECHNIQUE: Contiguous axial imaging was performed from the skull base to vertex without intravenous administration of contrast. This CT examination was performed using dose optimization techniques as appropriate, variously including the following: *Automated exposure control *Adjustment of mA and/or kV according to patient size (this includes techniques or standardized protocols for targeted exams where dose is matched to indication/reason for exam; i.e. extremities or head) *Use of iterative reconstruction technique DLP: 924 mGy-cm FINDINGS: There is no evidence of an extra-axial collection. There is no evidence of intra or extra-axial hemorrhage. The ventricles and extra-axial CSF spaces are prominent suggestive of generalized atrophy. CSF spaces are particularly prominent adjacent to the cerebellum. This appears unchanged. There is nonspecific periventricular white matter disease. No mass, mass effect or infarct is seen. There is evidence of atherosclerotic disease. Review at bone windows is normal. No skull fracture is. There is mild membranous soft tissue thickening of the right maxillary sinus. CT/CT head/brain wo con IMPRESSION: No acute intracranial findings. Atrophy and nonspecific periventricular white matter disease similar to previous exams.
[2021-08-17 20:04] VITALS: BP 133/81; BP 134/88; PULSE 68; PULSE 79; RESP 16; TEMP 36.5; O2SAT 95; O2SAT 97; BMI 22.9
[2021-08-17 20:40] LABS: Appearance Urine HAZY; Color Urine YELLOW; Glucose Urine UA NEG (NEG); Leukocyte Esterase Urine NEG (NEG); Nitrite Urine NEG (NEG); Specific Gravity - Urine 1.025 (1.005-1.025); Urine Blood NEG (NEG); Urine Ketones NEG (NEG); Urine Protein NEG (NEG-TRACE)
--- NOTE | 2021-08-17 20:51 | ED.PSYCH ---
HPI - Psych General Chief Complaint: Psychiatric Symptoms <PATSY Tsang - Last Filed: 08/17/21 22:25> Stated Complaint: crisis/HI? <PATSY Tsang - Last Filed: 08/17/21 22:25> Time Seen by Provider: 08/17/21 20:51 <PATSY Tsang - Last Filed: 08/17/21 22:25> Source: patient <PATSY Tsang Last Filed: 08/17/21 22:25> Mode of arrival: EMS <PATSY Tsang - Last Filed: 08/17/21 22:25> Limitations: no limitations <PATSY Tsang Last Filed: 08/17/21 22:25> History of Present Illness HPI Narrative: 76-year-old male past medical history significant for GERD, anemia, major depression (ECT patient), anxiety, psychotic depression with catatonia presents to the emergency department via ambulance from a retirement facility where they were concerned that he is a threat to staff members, and they were concerned for progressively worsening depression. According to EMS they state that staff from the nursing facility expressed that he was making threats to staff members, and other residents about murdering them. He also reports progressively worsening depression. Patient denies making these comments, he states that he is feeling depressed/hopeless and has not been able to sleep for a whole week. He states he is not suicidal or homicidal. He has had multiple psych admissions in the past. He denies SI and HI. He did not come in on a section. He is answering questions vaguely. Denies pain. Denies chest pain, shortness of breath, nausea, vomiting, abdominal pain, fevers, chills, weakness. Denies drug/alcohol/tobacco use. Denies visual, auditory and tactile hallucinations. Denies recent medication changes. <PATSY Tsang Last Filed: 08/17/21 22:25> MD complaint: feels depressed and anxiety <PATSY Tsang Last Filed: 08/17/21 22:25> Onset (ago): week(s) (1) <PATSY Tsang Last Filed: 08/17/21 22:25> Duration: constant <PATSY Tsang - Last Filed: 08/17/21 22:25> History of same: Yes <PATSY Tsang - Last Filed: 08/17/21 22:25> Relieving factors: none <PATSY Tsang - Last Filed: 08/17/21 22:25> Exacerbating factors: none <PATSY Tsang - Last Filed: 08/17/21 22:25> Associated psychiatric symptoms: depression and homicidal ideation (per SNF) <PATSY Tsang - Last Filed: 08/17/21 22:25> Associated symptoms: denies other symptoms <PATSY Tsang - Last Filed: 08/17/21 22:25> Treatments prior to arrival: none <PATSY Tsang - Last Filed: 08/17/21 22:25> Related Data Home Medications: Previous Rx's Medication Instructions Recorded apixaban 5 mg tablet (Eliquis) 5 mg PO BID #60 tab 10/30/20 atorvastatin 80 mg tablet 80 mg PO BEDTIME #30 tab 10/30/20 docusate sodium 100 mg capsule 100 mg PO BID 60 Days #120 cap 10/30/20 (Colace) ferrous sulfate 325 mg (65 mg 325 mg PO DAILY 30 Days #30 tab 10/30/20 iron) tablet finasteride 5 mg tablet 5 mg PO DAILY 30 Days #30 tab 10/30/20 olanzapine 10 mg tablet 10 mg PO BEDTIME 30 Days #30 tab 10/30/20 olanzapine 2.5 mg tablet 2.5 mg PO BID PRN 30 Days #60 tab 10/30/20 omeprazole 40 mg capsule,delayed 40 mg PO BID@0630,1630 30 Days #60 10/30/20 release cap oxybutynin chloride 5 mg tablet 5 mg PO DAILY 30 Days #30 tab 10/30/20 polyethylene glycol 3350 17 gram 17 g PO DAILY 30 Days ea 10/30/20 oral powder packet (Miralax) trazodone 50 mg tablet 50 mg PO BEDTIME 30 Days #30 tab 10/30/20 vilazodone 10 mg tablet (Viibryd) 10 mg PO DAILY 30 Days #30 tab 10/30/20 apixaban 5 mg tablet (Eliquis) 5 mg PO BID 30 Days #60 tab 11/07/20 atorvastatin 80 mg tablet 80 mg PO BEDTIME 30 Days #30 tab 11/07/20 olanzapine 10 mg tablet 10 mg PO BEDTIME #30 tab 11/07/20 vilazodone 10 mg tablet (Viibryd) 10 mg PO DAILY #30 tab 11/07/20 benzonatate 100 mg capsule 100 mg PO TID PRN #30 cap 07/28/21 (Irene Young) <PATSY Tsang - Last Filed: 08/17/21 22:25> Allergies/Adverse Reactions: Allergies Allergy/AdvReac Type Severity Reaction Status Date / Time No Known Allergies Allergy Verified 01/25/21 06:43 [No Known Allergies*] <PATSY Tsang Last Filed: 08/17/21 22:25> Review of Systems Review of Systems: Constitutional : No Fever, No Chills ENT/Mouth : No Ear Pain, No Nasal Congestion, No sore throat Eyes: No Eye Pain, No Swelling, No Redness Cardiovascular : No Chest Pain, No SOB Respiratory : No Cough, No Sputum, No Dyspnea Gastrointestinal : No Nausea, No Vomiting, No Diarrhea, No Hematochezia, No Melena Genitourinary : No Dysuria, No Urinary Frequency, No Hematuria Musculoskeletal : No Myalgias Skin : No Skin Lesions, No rash Neuro : No Weakness, No Numbness, No Paresthesias, No Dizziness, No Headache Psych : positive Anxiety, positive Depression, No SI/HI, + insomnia All other systems reviewed and are negative <PATSY Tsang Last Filed: 08/17/21 22:25> [facility] Past Medical History Attestation statement: The following information was validated with the patient. <PATSY Tsang Last Filed: 08/17/21 22:25> Source: old records reviewed and nursing notes reviewed <PATSY Tsang Last Filed: 08/17/21 22:25> Medical History: Medical History COVID-19 vaccine administered Dementia Depression Diverticulitis of colon with perforation GERD (gastroesophageal reflux disease) History of electroconvulsive therapy HTN (hypertension) Hyperlipidemia Major depressive disorder, recurrent, severe with psychotic features Pulmonary embolism SVT (supraventricular tachycardia) <PATSY Tsang - Last Filed: 08/17/21 22:25> Surgical History: Surgical History H/O colonoscopy H/O hernia repair History of colostomy reversal History of esophagogastroduodenoscopy (EGD) Status post Paula's procedure <PATSY Tsang - Last Filed: 08/17/21 22:25> Family History Family History: Family History Brother Blood clot in vein Other No history of cardiac disorder <PATSY Tsang - Last Filed: 08/17/21 22:25> Social History Social History: Social History Household Members: Other Housing: Assisted Living Facility Are you a primary rn transitional care to a significant other at home: No Do you presently have visiting nurse or other home services: No Alcohol intake: former Second Hand Smoke Exposure: No Advance Directives: Yes Advance Directives on File: Yes Advance Directives Date on File: 07/27/20 service: Yes ([employer]) Current occupational status: retired Sexual orientation: Straight/Heterosexual <PATSY Tsang - Last Filed: 08/17/21 22:25> Physical Exam Vital Signs: Vital Signs: Last Vital Signs Temp 97.7 F 08/17/21 20:04 Pulse 79 08/17/21 20:04 Resp 16 08/17/21 20:04 BP 133/81 08/17/21 20:04 Pulse Ox 95 08/17/21 20:04 Body Mass Index 22.9 <PATSY Tsang - Last Filed: 08/17/21 22:25> Vital Signs: Last Vital Signs Temp 97.7 F 08/17/21 20:04 Pulse 79 08/17/21 20:04 Resp 16 08/17/21 20:04 BP 133/81 08/17/21 20:04 Pulse Ox 95 08/17/21 20:04 Body Mass Index 22.9 <PATSY Mena - Last Filed: 08/18/21 00:26> Appearance: Alert.? Oriented X3.? No acute distress.?Flat affect. Answering questions vaguely Eyes: Pupils equal, round and reactive to light.? ENT: Pharynx normal.? Neck: Normal inspection.? Neck supple.? CVS: Normal heart rate and rhythm.? Pulses normal.? Respiratory: No respiratory distress.? Breath sounds normal.? Abdomen: Soft and nontender.? Skin: Skin warm and dry.? Normal skin color.? Normal skin turgor.? Extremities: No lower extremity edema.? No calf ttp Neuro: Oriented X 3.? No motor deficit.? No sensory deficit. CN 2-12 intact. <PATSY Tsang - Last Filed: 08/17/21 22:25> Course Course Course Narrative: Patient seen and examined, agree with assessment and plan. <PATSY Mena - Last Filed: 08/18/21 00:26> Reevaluation(s) Reevaluation #1: No acute changes and blood work. No infections, no anemia no acute electrolyte abnormalities. U-tox + for Fentanyl. At this time 2151 patient will be placed in physician observation to allow more time for patient to meet with [facility]. At this time patient is calm and cooperative. Lungs are clear, RRR, abdomen soft nontender nondistended. No focal neuro deficits. Vital signs are stable. Will continue to monitor. <PATSY Tsang - Last Filed: 08/17/21 22:25> Time: 21:51 <PATSY Tsang - Last Filed: 08/17/21 22:25> MDM - Psych MDM Narrative Medical decision making narrative: 2100 76-year-old male past medical history significant for GERD, anemia, MDD (ECT patient), anxiety, psychotic depression with catatonia presents to the emergency department via ambulance from [facility] where they were concerned that he is a threat to staff members, and they were concerned for progressively worsening depression. Patient denies SI/HI. He states he feels depressed and hopeless. Also reports insomnia X1 week Upon physical examination patient is lying comfortably on the exam table, he appears to be in no distress. He is answering questions vaguely. He has a flat affect. Lungs are clear to auscultation. S1-S2 appreciated free of murmurs. Abdomen soft nontender nondistended. Pupils equal round and reactive to light bilaterally. 5/5 strength upper and lower extremities. Normal gait. No focal neuro deficits. Cranial nerves 2-12 intact. Plan at this time is to obtain basic labs, urine, COVID, and a BHN consult <PATSY Tsang - Last Filed: 08/17/21 22:25> Lab Data Result diagrams: : 08/17/21 21:16 08/17/21 21:17 <PATSY Tsang - Last Filed: 08/17/21 22:25> Labs: Lab Results 08/17/21 08/17/21 08/17/21 Range/Units 20:30 20:31 20:31 WBC (4.8-10.8) X10*3/uL RBC (4.60-5.80) X10*6/uL Hgb (14.0-18.0) g/dl Hct (42.0-52.0) % MCV (80.0-98.0) fL MCH (27.0-33.0) pg MCHC (31.0-36.0) g/dl RDW (11.0-16.0) % Plt Count (160-400) X10*3/uL MPV (9.4-12.4) fL Immature Gran % (Auto) (0.0-0.4) % Neut % (Auto) (45-73) % Lymph % (Auto) (20-40) % Creek % (Auto) (2-11) % Eos % (Auto) (0-4) % Baso % (Auto) (0-2) % Lymph # (Auto) (1.2-4.9) X10*3/uL Creek # (Auto) (0.1-1.2) X10*3/uL Eos # (Auto) (0.0-0.4) X10*3/uL Baso # (Auto) (0.0-0.2) X10*3/uL Abs Immat Gran (auto) (0.00-0.03) X10*3/uL Absolute Neuts (auto) (2.0-8.3) x10*3/uL Absolute Nucleated RBC (0.0-0.012) X10*3/uL Nucleated RBC % (auto) (0.0-0.2) /100WBC Sodium (135-145) mmol/L Potassium (3.3-5.1) mmol/L Chloride (96-108) mmol/L Carbon Dioxide (22-29) mmol/L Anion Gap (12-20) BUN (9-16) mg/dL Creatinine (0.5-1.4) mg/dL Estim Creat Clear Calc Estimated GFR Random Glucose (60-115) mg/dL Calcium (8.4-10.2) mg/dL Urine Color YELLOW Urine Appearance HAZY Urine pH 6.0 (5.0-8.0) Ur Specific [place] 1.025 (1.005-1.025) Urine Protein NEG (NEG-TRACE) MG/DL Urine Glucose (UA) NEG (NEG) MG/DL Urine Ketones NEG (NEG) MG/DL Urine Blood NEG (NEG) Urine Nitrite NEG (NEG) Ur Leukocyte Esterase NEG (NEG) Urine Opiates Screen Not Detected (Not Detect) Urine Fentanyl Screen POSITIVE H (Not Detect) Ur Barbiturates Screen Not Detected (Not Detect) Ur Phencyclidine Scrn Not Detected (Not Detect) Ur Amphetamines Screen Not Detected (Not Detect) U Benzodiazepines Scrn Not Detected (Not Detect) Urine Cocaine Screen Not Detected (Not Detect) U Marijuana (THC) Screen Not Detected (Not Detect) Ethyl Alcohol mg/dL COVID-19 ([facility]) Negative (Negative) COVID-19 Clin Com See Note 08/17/21 08/17/21 08/17/21 Range/Units 21:16 21:16 21:17 WBC 5.4 (4.8-10.8) X10*3/uL RBC 4.22 L (4.60-5.80) X10*6/uL Hgb 14.0 (14.0-18.0) g/dl Hct 40.9 L (42.0-52.0) % MCV 96.9 (80.0-98.0) fL MCH 33.2 H (27.0-33.0) pg MCHC 34.2 (31.0-36.0) g/dl RDW 13.0 (11.0-16.0) % Plt Count 160 (160-400) X10*3/uL MPV 8.7 L (9.4-12.4) fL Immature Gran % (Auto) 0.2 (0.0-0.4) % Neut % (Auto) 64.6 (45-73) % Lymph % (Auto) 21.5 (20-40) % Creek % (Auto) 10.4 (2-11) % Eos % (Auto) 3.1 (0-4) % Baso % (Auto) 0.2 (0-2) % Lymph # (Auto) 1.2 (1.2-4.9) X10*3/uL Creek # (Auto) 0.6 (0.1-1.2) X10*3/uL Eos # (Auto) 0.2 (0.0-0.4) X10*3/uL Baso # (Auto) 0.0 (0.0-0.2) X10*3/uL Abs Immat Gran (auto) 0.01 (0.00-0.03) X10*3/uL Absolute Neuts (auto) 3.5 (2.0-8.3) x10*3/uL Absolute Nucleated RBC 0.000 (0.0-0.012) X10*3/uL Nucleated RBC % (auto) 0.0 (0.0-0.2) /100WBC Sodium 143 (135-145) mmol/L Potassium 4.0 (3.3-5.1) mmol/L Chloride 108 (96-108) mmol/L Carbon Dioxide 27 (22-29) mmol/L Anion Gap 12 (12-20) BUN 21 H (9-16) mg/dL Creatinine 1.03 (0.5-1.4) mg/dL Estim Creat Clear Calc 60.6 Estimated GFR > 60 Random Glucose 169 H (60-115) mg/dL Calcium 9.7 D (8.4-10.2) mg/dL Urine Color Urine Appearance Urine pH (5.0-8.0) Ur Specific [place] (1.005-1.025) Urine Protein (NEG-TRACE) MG/DL Urine Glucose (UA) (NEG) MG/DL Urine Ketones (NEG) MG/DL Urine Blood (NEG) Urine Nitrite (NEG) Ur Leukocyte Esterase (NEG) Urine Opiates Screen (Not Detect) Urine Fentanyl Screen (Not Detect) Ur Barbiturates Screen (Not Detect) Ur Phencyclidine Scrn (Not Detect) Ur Amphetamines Screen (Not Detect) U Benzodiazepines Scrn (Not Detect) Urine Cocaine Screen (Not Detect) U Marijuana (THC) Screen (Not Detect) Ethyl Alcohol < 10 mg/dL COVID-19 ([facility]) (Negative) COVID-19 Clin Com <PATSY Tsang - Last Filed: 08/17/21 22:25> Lab Results 08/17/21 08/17/21 08/17/21 Range/Units 20:30 20:31 20:31 WBC (4.8-10.8) X10*3/uL RBC (4.60-5.80) X10*6/uL Hgb (14.0-18.0) g/dl Hct (42.0-52.0) % MCV (80.0-98.0) fL MCH (27.0-33.0) pg MCHC (31.0-36.0) g/dl RDW (11.0-16.0) % Plt Count (160-400) X10*3/uL MPV (9.4-12.4) fL Immature Gran % (Auto) (0.0-0.4) % Neut % (Auto) (45-73) % Lymph % (Auto) (20-40) % Creek % (Auto) (2-11) % Eos % (Auto) (0-4) % Baso % (Auto) (0-2) % Lymph # (Auto) (1.2-4.9) X10*3/uL Creek # (Auto) (0.1-1.2) X10*3/uL Eos # (Auto) (0.0-0.4) X10*3/uL Baso # (Auto) (0.0-0.2) X10*3/uL Abs Immat Gran (auto) (0.00-0.03) X10*3/uL Absolute Neuts (auto) (2.0-8.3) x10*3/uL Absolute Nucleated RBC (0.0-0.012) X10*3/uL Nucleated RBC % (auto) (0.0-0.2) /100WBC Sodium (135-145) mmol/L Potassium (3.3-5.1) mmol/L Chloride (96-108) mmol/L Carbon Dioxide (22-29) mmol/L Anion Gap (12-20) BUN (9-16) mg/dL Creatinine (0.5-1.4) mg/dL Estim Creat Clear Calc Estimated GFR Random Glucose (60-115) mg/dL Calcium (8.4-10.2) mg/dL Urine Color YELLOW Urine Appearance HAZY Urine pH 6.0 (5.0-8.0) Ur Specific [place] 1.025 (1.005-1.025) Urine Protein NEG (NEG-TRACE) MG/DL Urine Glucose (UA) NEG (NEG) MG/DL Urine Ketones NEG (NEG) MG/DL Urine Blood NEG (NEG) Urine Nitrite NEG (NEG) Ur Leukocyte Esterase NEG (NEG) Urine Opiates Screen Not Detected (Not Detect) Urine Fentanyl Screen POSITIVE H (Not Detect) Ur Barbiturates Screen Not Detected (Not Detect) Ur Phencyclidine Scrn Not Detected (Not Detect) Ur Amphetamines Screen Not Detected (Not Detect) U Benzodiazepines Scrn Not Detected (Not Detect) Urine Cocaine Screen Not Detected (Not Detect) U Marijuana (THC) Screen Not Detected (Not Detect) Ethyl Alcohol mg/dL COVID-19 ([facility]) Negative (Negative) COVID-19 Clin Com See Note 08/17/21 08/17/21 08/17/21 Range/Units 21:16 21:16 21:17 WBC 5.4 (4.8-10.8) X10*3/uL RBC 4.22 L (4.60-5.80) X10*6/uL Hgb 14.0 (14.0-18.0) g/dl Hct 40.9 L (42.0-52.0) % MCV 96.9 (80.0-98.0) fL MCH 33.2 H (27.0-33.0) pg MCHC 34.2 (31.0-36.0) g/dl RDW 13.0 (11.0-16.0) % Plt Count 160 (160-400) X10*3/uL MPV 8.7 L (9.4-12.4) fL Immature Gran % (Auto) 0.2 (0.0-0.4) % Neut % (Auto) 64.6 (45-73) % Lymph % (Auto) 21.5 (20-40) % Creek % (Auto) 10.4 (2-11) % Eos % (Auto) 3.1 (0-4) % Baso % (Auto) 0.2 (0-2) % Lymph # (Auto) 1.2 (1.2-4.9) X10*3/uL Creek # (Auto) 0.6 (0.1-1.2) X10*3/uL Eos # (Auto) 0.2 (0.0-0.4) X10*3/uL Baso # (Auto) 0.0 (0.0-0.2) X10*3/uL Abs Immat Gran (auto) 0.01 (0.00-0.03) X10*3/uL Absolute Neuts (auto) 3.5 (2.0-8.3) x10*3/uL Absolute Nucleated RBC 0.000 (0.0-0.012) X10*3/uL Nucleated RBC % (auto) 0.0 (0.0-0.2) /100WBC Sodium 143 (135-145) mmol/L Potassium 4.0 (3.3-5.1) mmol/L Chloride 108 (96-108) mmol/L Carbon Dioxide 27 (22-29) mmol/L Anion Gap 12 (12-20) BUN 21 H (9-16) mg/dL Creatinine 1.03 (0.5-1.4) mg/dL Estim Creat Clear Calc 60.6 Estimated GFR > 60 Random Glucose 169 H (60-115) mg/dL Calcium 9.7 D (8.4-10.2) mg/dL Urine Color Urine Appearance Urine pH (5.0-8.0) Ur Specific [place] (1.005-1.025) Urine Protein (NEG-TRACE) MG/DL Urine Glucose (UA) (NEG) MG/DL Urine Ketones (NEG) MG/DL Urine Blood (NEG) Urine Nitrite (NEG) Ur Leukocyte Esterase (NEG) Urine Opiates Screen (Not Detect) Urine Fentanyl Screen (Not Detect) Ur Barbiturates Screen (Not Detect) Ur Phencyclidine Scrn (Not Detect) Ur Amphetamines Screen (Not Detect) U Benzodiazepines Scrn (Not Detect) Urine Cocaine Screen (Not Detect) U Marijuana (THC) Screen (Not Detect) Ethyl Alcohol < 10 mg/dL COVID-19 ([facility]) (Negative) COVID-19 Clin Com <PATSY Mena - Last Filed: 08/18/21 00:26> Discharge Plan Discharge Clinical Impression: Depression <PATSY Tsang - Last Filed: 08/17/21 22:25> Prescriptions: No Action olanzapine 10 mg Tablet 10 mg PO BEDTIME 30 Days Qty: 30 RF: 0 olanzapine 2.5 mg Tablet 2.5 mg PO BID PRN (Reason: Anxiety) 30 Days Qty: 60 RF: 0 Viibryd 10 mg Tablet 10 mg PO DAILY 30 Days Qty: 30 RF: 0 omeprazole 40 mg Capsule,Delayed Release(Dr/Ec) 40 mg PO BID@0630,1630 30 Days Qty: 60 RF: 0 atorvastatin 80 mg Tablet 80 mg PO BEDTIME Qty: 30 RF: 0 trazodone 50 mg Tablet 50 mg PO BEDTIME 30 Days Qty: 30 RF: 0 polyethylene glycol 3350 [Miralax] 17 gram Powder In Packet 17 g PO DAILY 30 Days RF: 0 ferrous sulfate 325 mg (65 mg iron) Tablet 325 mg PO DAILY 30 Days Qty: 30 RF: 0 docusate sodium [Colace] 100 mg Capsule 100 mg PO BID 60 Days Qty: 120 RF: 0 oxybutynin chloride 5 mg tablet 5 mg PO DAILY 30 Days Qty: 30 RF: 0 finasteride 5 mg Tablet 5 mg PO DAILY 30 Days Qty: 30 RF: 0 Eliquis 5 mg tablet 5 mg PO BID Qty: 60 RF: 0 Eliquis 5 mg Tablet 5 mg PO BID 30 Days Qty: 60 RF: 0 atorvastatin 80 mg Tablet 80 mg PO BEDTIME 30 Days Qty: 30 RF: 0 Viibryd 10 mg tablet 10 mg PO DAILY Qty: 30 RF: 0 olanzapine 10 mg tablet 10 mg PO BEDTIME Qty: 30 RF: 0 benzonatate [Tessalon Perles] 100 mg capsule 100 mg PO TID PRN (Reason: cough) Qty: 30 RF: 0 <PATSY Tsang - Last Filed: 08/17/21 22:25>
[2021-08-17 20:52] LABS: Amphetamine Screen Urine Not Detected (Not Detect); Barbiturates, Urine Not Detected (Not Detect); Benzodiazepines Screen Urine Not Detected (Not Detect); Cannabinoid Screen Urine Not Detected (Not Detect); Cocaine Screen Urine Not Detected (Not Detect); Fentanyl, urine POSITIVE (Not Detect); Opiate Screen Urine Not Detected (Not Detect); Phencyclidine Screen Urine Not Detected (Not Detect)
[2021-08-17 21:20] LABS: MANUAL DIFF FLAG NO
[2021-08-17 21:21] LABS: COVID-19 Test Negative (Negative)
[2021-08-17 21:22] LABS: Basophils Percent Auto 0.2 % (0-2); Eosinophils Absolute Auto 0.2 X10*3/uL (0.0-0.4); Eosinophils Percent Auto 3.1 % (0-4); Hematocrit 40.9 % (42.0-52.0); Imm Gran Abs Auto 0.01 X10*3/uL (0.00-0.03); Imm Gran Pct Auto 0.2 % (0.0-0.4); Lymphocytes Absolute Auto 1.2 X10*3/uL (1.2-4.9); Lymphocytes Percent Auto 21.5 % (20-40); Mean Corpuscular HGB Conc 34.2 g/dl (31.0-36.0); Mean Corpuscular Hemoglobin 33.2 pg (27.0-33.0); Mean Corpuscular Volume 96.9 fL (80.0-98.0); Mean Platelet Volume 8.7 fL (9.4-12.4); Monocytes Absolute Auto 0.6 X10*3/uL (0.1-1.2); Monocytes Percent Auto 10.4 % (2-11); Neutrophils Absolute Auto 3.5 x10*3/uL (2.0-8.3); Neutrophils Percent Auto 64.6 % (45-73); Platelet Count 160 X10*3/uL (160-400); Red Blood Count 4.22 X10*6/uL (4.60-5.80); White Blood Count 5.4 X10*3/uL (4.8-10.8)
[2021-08-17 21:40] LABS: Ethanol < 10 mg/dL
[2021-08-17 21:42] LABS: Anion Gap 12 (12-20); Blood Urea Nitrogen 21 mg/dL (9-16); Calcium 9.7 mg/dL (8.4-10.2); Carbon Dioxide 27 mmol/L (22-29); Chloride 108 mmol/L (96-108); Creatinine Clr Calc Pharmacy 60.6; Estimated Glomerular Filt Rate > 60; Glucose Random 169 mg/dL (60-115); Sodium 143 mmol/L (135-145)
--- NOTE | 2021-08-17 23:42 | PC.NURSE ---
pt has restless legs, figity, when addressed s1 or h1 pt stated I dont know how to answer that .
[2021-08-18 06:28] VITALS: BP 122/80; PULSE 66; RESP 16; TEMP 36.6; O2SAT 94
--- NOTE | 2021-08-18 10:27 | PC.NURSE ---
med rec complete, pharmacist has some questions about pt med orders, given medication list from facility for review, will contact this rn if any concerns. will hold medications ordered until med rec cleared.
--- NOTE | 2021-08-18 10:58 | PHA.MEDREC ---
Pharmacy Consult ? Medication Reconciliation Pharmacy has completed the medication reconciliation. Called [facility] to verify list, specifically changes in olanzapine dosing. Thanks Nette Aguilar Pharm D
[2021-08-18] MEDS: Ferrous Sulfate 324 MG TABLET.DR PO (11:44)
[2021-08-18] MEDS: Apixaban 5 MG TABLET PO ×2 (11:44→20:19)
[2021-08-18] MEDS: Omeprazole 20 MG CAPSULE.DR PO (11:44)
[2021-08-18] MEDS: Docusate Sodium 100 MG CAPSULE PO ×2 (11:44→20:19)
--- NOTE | 2021-08-18 11:52 | PC.NURSE ---
per CARE team, pt was seen by [facility] and dispo is for inpatient bed search
--- NOTE | 2021-08-18 15:29 | PC.NURSE ---
Charmaine (daughter) reported called regarding status of the pt. gets TMS in [place] through Dr. Sims concern that she will have to cancel his tx and transportation this week. to reach daughter
--- NOTE | 2021-08-18 15:31 | PC.NURSE ---
pt did not eat lunch.
[2021-08-18 16:24] VITALS: BP 124/81; PULSE 88; RESP 16; TEMP 37.2; O2SAT 93
[2021-08-18] MEDS: Atorvastatin Calcium 40 MG TABLET PO (20:19)
[2021-08-18] MEDS: traZODone HCL 50 MG TABLET PO (20:19)
[2021-08-18] MEDS: OLANZapine 5 MG TABLET PO (20:19)
--- NOTE | 2021-08-18 20:28 | PC.NURSE ---
HS medication administration, pt continues to lay in bed, restless, hopeless, helpless, tearful, reporting he wants to . pt denies any plan of harming himself.
[2021-08-19] MEDS: Omeprazole 20 MG CAPSULE.DR PO (05:51)
--- NOTE | 2021-08-19 06:30 | PC.NURSE ---
Patient slept through the night, woke up just now for bathroom use and back, compliant with Vitals assessment, behavior calm, mood depressed, affect flat, med compliant, patient stated that it is time to today when asked why patient reported he needs more sleep, thought process non coherent, thought content paranoia, patient's disposition is voluntary inpatient bed search, VSS, will continue to monitor.
--- NOTE | 2021-08-19 07:27 | PC.NURSE ---
patient appears to remain at rest at present, respirations are even and unlabored, patient appears in no distress
[2021-08-19 09:06] VITALS: BP 121/80; PULSE 88; RESP 20; TEMP 36.9; O2SAT 95
[2021-08-19] MEDS: Ferrous Sulfate 324 MG TABLET.DR PO (09:13)
[2021-08-19] MEDS: Docusate Sodium 100 MG CAPSULE PO ×2 (09:13→21:28)
[2021-08-19] MEDS: Apixaban 5 MG TABLET PO ×2 (09:13→21:28)
[2021-08-19 09:38] LABS: COVID-19 Test Negative (Negative)
--- NOTE | 2021-08-19 13:28 | PC.NURSE ---
patient calls for help quietly from room, when staff arrives i want to within the last hour a ptient had received a phone call and declined consent for t/w to speak to caller.
[2021-08-19 18:15] VITALS: BP 116/68; PULSE 83; RESP 14; TEMP 36.6; O2SAT 99
--- NOTE | 2021-08-19 19:00 | PC.ADMIT ---
76 y.o. citizen of [place] speaking male with major depressive disorder arrives on this unit at 18:14 on a section 12A. PT is uncooperative with admission process. PT arrived to this hospital from assisted living facility when he began refusing to tend to ADLs, poor appetite and had thoughts of both suicidal and homicidal ideation. PT currently refusing food or drink.
--- NOTE | 2021-08-19 19:34 | HO.PSYADMNOT ---
Documented by User: Mel Johnson NP 08/22/21 09:13 HPI Date of Service: 08/19/21 Chief Complaint: Recurrent major depressive D/O Severe Sources of Information: patient interviewed, chart reviewed and crisis/core team assessment reviewed HPI Subjective Notes: Griffith Warning and Section 12B Healthcare Proxy: No Guardianship: No Medical Problems Affecting Mental Status: No Narrative: José Luis is a 76 year old male who carries a dx of MDD, recurrent, severe with hx of psychosis, catatonia. He has past medical history significant for GERD, anemia. He presented to the ED via ambulance from [facility] due to concerns about his safety towards staff and worsening depression. Pt also presents with insomnia X1 week. Per EMS, pt was making threatening statements towards staff and other residents ?about murdering them.? In the ED, pt denied HI or assaultive ideation. Unable to identify precipitating factors. Per crisis eval, the director at his Assisted Living facility stated they have noticed a decline in José Luis since COVID due to being quarantined and he has been making statements such as ?I want to ? and ?I want to kill myself in front of a group of people. He has been laying in bed all day, not engaging in activities at the facility.? He is known to [facility] for similar presentation and has received ECT with good effect in the past.? I evaluated the pt this evening and upon interview he reports he was brought to the hospital because ?I couldnt sleep and they got me out of my assisted living.? Says his depression is ?not good.? Denies SI, when asked about suicidal thoughts pt relies ?how am I gonna do it?? Says he has experienced suicidal thoughts in the past. When asked about energy, pt replies ?what energy?? Pt reports he is anxious and ?restless,? has psychomotor restlessness during interview. When asked if medications or ECT have helped in the past, pt states ?I dont know.? He says he has not been eating, showering, or caring for himself. He denies hallucinations or psychotic sx at this time. No substance or alcohol use concerns. Says he does not want to go back to his assisted living but is unable to elaborate on thought process, stating ?I cant go back there, i just can?t.? Pt arrived on a 12B, as this telegraphic typewriter operator chief saw him in the ED and he declined to sign a CV despite stating ?I need help.? When presented with the CV and asked if he would sign, pt appeared despondent and stated ?I dont know what to do.? Pt states he feels safe on the unit. Of note, his utox was positive for fentanyl, despite pt denying substance use. This telegraphic typewriter operator chief called his SNF and staff reported he is not prescribed opiates and deny that he has been substance using. Will repeat utox.? Past Psychiatric History: -Has OP psychiatrist, Dr. Sims. Hx of ECT maintenance treatment. Has OP therapy [facility]. -Hx of IPLOC at and [facility] for psychotic depression with catatonia. Assisted Living facility reports he has at least 2 inpatient stays a year. -Per chart, pt has declined when he misses ECT treatment, i.e. in 2019 he was admitted to [facility] due to deteriorating after missing ECT in context of pulmonary embolism. Medical Evaluation Reviewed: Yes -Per chart, hx of PE, anemia, and colon cancer. [facility] Medical History COVID-19 vaccine administered Dementia Depression Diverticulitis of colon with perforation GERD (gastroesophageal reflux disease) History of electroconvulsive therapy HTN (hypertension) Hyperlipidemia Major depressive disorder, recurrent, severe with psychotic features Pulmonary embolism SVT (supraventricular tachycardia) Surgical History H/O colonoscopy H/O hernia repair History of colostomy reversal History of esophagogastroduodenoscopy (EGD) Status post Paula's procedure Family History: unknown Social History: -Pt resides in an Assisted Living Facility, [facility]. -Pt?s is . Has step-daughter who is HCP and brother in [place]. He is a . Substance History: Denies Trauma History: Unknown Diagnostics Vital Signs (24Hr): Vital Signs - 24 hr 08/19/21 09:06 08/19/21 18:15 Temperature 98.5 F 98 F Pulse Rate 88 83 Respiratory Rate 20 14 Blood Pressure 121/80 116/68 Pulse Oximetry 95 99 Body Mass Index 22.9 Labs Results: 08/25/21 22:04 08/25/21 22:04 Labs: Laboratory Results - last 48 hr 08/17/21 08/17/21 08/17/21 20:30 20:31 20:31 WBC RBC Hgb Hct MCV MCH MCHC RDW Plt Count MPV Immature Gran % (Auto) Neut % (Auto) Lymph % (Auto) [place] % (Auto) Eos % (Auto) Baso % (Auto) Lymph # (Auto) [place] # (Auto) Eos # (Auto) Baso # (Auto) Abs Immat Gran (auto) Absolute Neuts (auto) Absolute Nucleated RBC Nucleated RBC % (auto) Sodium Potassium Chloride Carbon Dioxide Anion Gap BUN Creatinine Estim Creat Clear Calc Estimated GFR Random Glucose Calcium Urine Color YELLOW Urine Appearance HAZY Urine pH 6.0 Ur Specific [place] 1.025 Urine Protein NEG Urine Glucose (UA) NEG Urine Ketones NEG Urine Blood NEG Urine Nitrite NEG Ur Leukocyte Esterase NEG Urine Opiates Screen Not Detected Urine Fentanyl Screen POSITIVE H Ur Barbiturates Screen Not Detected Ur Phencyclidine Scrn Not Detected Ur Amphetamines Screen Not Detected U Benzodiazepines Scrn Not Detected Urine Cocaine Screen Not Detected U Marijuana (THC) Screen Not Detected Ethyl Alcohol COVID-19 ([facility]) Negative COVID-19 Clin Com See Note 08/17/21 08/17/21 08/17/21 21:16 21:16 21:17 WBC 5.4 RBC 4.22 L Hgb 14.0 Hct 40.9 L MCV 96.9 MCH 33.2 H MCHC 34.2 RDW 13.0 Plt Count 160 MPV 8.7 L Immature Gran % (Auto) 0.2 Neut % (Auto) 64.6 Lymph % (Auto) 21.5 [place] % (Auto) 10.4 Eos % (Auto) 3.1 Baso % (Auto) 0.2 Lymph # (Auto) 1.2 [place] # (Auto) 0.6 Eos # (Auto) 0.2 Baso # (Auto) 0.0 Abs Immat Gran (auto) 0.01 Absolute Neuts (auto) 3.5 Absolute Nucleated RBC 0.000 Nucleated RBC % (auto) 0.0 Sodium 143 Potassium 4.0 Chloride 108 Carbon Dioxide 27 Anion Gap 12 BUN 21 H Creatinine 1.03 Estim Creat Clear Calc 60.6 Estimated GFR > 60 Random Glucose 169 H Calcium 9.7 D Urine Color Urine Appearance Urine pH Ur Specific [place] Urine Protein Urine Glucose (UA) Urine Ketones Urine Blood Urine Nitrite Ur Leukocyte Esterase Urine Opiates Screen Urine Fentanyl Screen Ur Barbiturates Screen Ur Phencyclidine Scrn Ur Amphetamines Screen U Benzodiazepines Scrn Urine Cocaine Screen U Marijuana (THC) Screen Ethyl Alcohol < 10 COVID-19 ([facility]) COVID-19 Clin Com 08/19/21 09:11 WBC RBC Hgb Hct MCV MCH MCHC RDW Plt Count MPV Immature Gran % (Auto) Neut % (Auto) Lymph % (Auto) [place] % (Auto) Eos % (Auto) Baso % (Auto) Lymph # (Auto) [place] # (Auto) Eos # (Auto) Baso # (Auto) Abs Immat Gran (auto) Absolute Neuts (auto) Absolute Nucleated RBC Nucleated RBC % (auto) Sodium Potassium Chloride Carbon Dioxide Anion Gap BUN Creatinine Estim Creat Clear Calc Estimated GFR Random Glucose Calcium Urine Color Urine Appearance Urine pH Ur Specific [place] Urine Protein Urine Glucose (UA) Urine Ketones Urine Blood Urine Nitrite Ur Leukocyte Esterase Urine Opiates Screen Urine Fentanyl Screen Ur Barbiturates Screen Ur Phencyclidine Scrn Ur Amphetamines Screen U Benzodiazepines Scrn Urine Cocaine Screen U Marijuana (THC) Screen Ethyl Alcohol COVID-19 ([facility]) Negative COVID-19 Clin Com See Note Meds/Allergies Meds Home Medications Acetaminophen (Acetaminophen 325 Mg Tablet) 650 mg PO Q6H PRN PRN Reason: Headache/Pain Mild Scale (1-3) Al Hydroxide/Mg Hydroxide (Magnesium Hydrox/Alum Hydrox 30 Ml Oral.Susp) 30 ml PO Q6H PRN PRN Reason: Heartburn/Nausea Apixaban (Apixaban 5 Mg Tablet) 5 mg PO BID [facility] Last Admin: 08/26/21 08:38 Dose: 5 mg Documented by: Atorvastatin Calcium (Atorvastatin Calcium 40 Mg Tablet) 40 mg PO BEDTIME [facility] Last Admin: 08/25/21 23:36 Dose: Not Given Documented by: Benzonatate (Benzonatate 100 Mg Capsule) 100 mg PO TID PRN PRN Reason: cough Docusate Sodium (Docusate Sodium 100 Mg Capsule) 100 mg PO BID [facility] Last Admin: 08/26/21 08:38 Dose: 100 mg Documented by: Erythromycin (Erythromycin Base 0.5% Oph Oin 1 Gm Tube) 1 cm EYE-BOTH BID [facility] Last Admin: 08/26/21 08:43 Dose: Not Given Documented by: Ferrous Sulfate (Ferrous Sulfate 324 Mg Tablet.) 324 mg PO DAILY [facility] Last Admin: 08/26/21 08:38 Dose: 324 mg Documented by: Hydroxyzine HCl (Hydroxyzine Hcl 25 Mg Tablet) 25 mg PO BEDTIME PRN PRN Reason: Anxiety Last Admin: 08/25/21 05:36 Dose: 25 mg Documented by: Magnesium Hydroxide (Milk Of Magnesia 30 Ml Oral.Susp) 30 ml PO DAILY PRN PRN Reason: Constipation Nortriptyline HCl (Nortriptyline Hcl 10 Mg Capsule) 10 mg PO BEDTIME [facility] Last Admin: 08/25/21 23:37 Dose: Not Given Documented by: Olanzapine (Olanzapine 5 Mg Tablet) 5 mg PO BEDTIME [facility] Last Admin: 08/25/21 23:37 Dose: Not Given Documented by: Olanzapine (Olanzapine 2.5 Mg Tablet) 1.25 mg PO DAILY PRN PRN Reason: Anxiety Last Admin: 08/26/21 04:18 Dose: 1.25 mg Documented by: Omeprazole (Omeprazole 20 Mg Capsule.) 20 mg PO DAILY@0630 [facility] Last Admin: 08/26/21 08:37 Dose: 20 mg Documented by: Oxybutynin Chloride (Oxybutynin Chloride Er 5 Mg Tab.Er.24) 5 mg PO DAILY [facility] Last Admin: 08/26/21 08:38 Dose: 5 mg Documented by: Trazodone HCl (Trazodone Hcl 50 Mg Tablet) 50 mg PO BEDTIME [facility] Last Admin: 08/25/21 23:37 Dose: Not Given Documented by: Vitamin D (Cholecalciferol (Vitamin D3) 10 Mcg Tablet) 10 mcg PO DAILY [facility] Last Admin: 08/26/21 08:38 Dose: 10 mcg Documented by: Allergies Allergies Allergy/AdvReac Type Severity Reaction Status Date / Time No Known Allergies Allergy Verified 01/25/21 06:43 [No Known Allergies*] Mental Status Exam Mental Status Exam Narrative: A&O except to time. Lying down in bed, psychomotor restlessness, unkempt appearance. Poor eye contact, inattentive. No Tics or Tremors. No abnormal involuntary movements. Withdrawn, difficult to engage. Non-pressured speech, non-spontaneous, taciturn, muffled. Mood is ?depressed,? affect is blunted, dysphoric. Denies SI/SIB/HI upon inquiry. Denies A/VH or delusional thought content. Thoughts are notable for poverty of content, pt replies I dont know for much of interview. No known cognitive or memory impairment. Insight/ Judgment limited. Assessment & Plan Assessment & Plan (1) Major depressive disorder, recurrent, severe with psychotic features: Status: Acute Code(s): F33.3 - Major depressive disorder, recurrent, severe with psychotic symptoms Assessment and Plan: José Luis is a 76 year old male who carries a dx of MDD, recurrent, severe with hx of psychosis, catatonia. He is known to [facility] for similar presentation and has received ECT with good effect in the past. No medications made on admission, as pt declined med changes. He stated he has difficulty sleeping but when offered sleep aids/ hypnotics, pt stated ?it wont do much? and ?they wont work.? Per crisis jaja, the director at pt?s SNF reported pt sees Dr. Sims in the community and there was a change to his ECT treatment a month ago, he had to stop treatment for a week because he was sick and then started it back up again about a week ago. He also had a medication change 3 weeks ago. Plan: Monitor response to medications. Monitor for safety in the milieu. Discharge on stabilization. Patient seen. Chart reviewed. Discussed with team. Obtain collateral contact info?as needed Reason for continued inpatient stay Substantial Risk for: harm to self, inability to function, rapid decompensation and med/psych decompensation Documented by User: Cooper Molian MD 08/26/21 12:03 HPI Chief Complaint: Recurrent major depressive D/O Severe [facility] Medical History COVID-19 vaccine administered Dementia Depression Diverticulitis of colon with perforation GERD (gastroesophageal reflux disease) History of electroconvulsive therapy HTN (hypertension) Hyperlipidemia Major depressive disorder, recurrent, severe with psychotic features Pulmonary embolism SVT (supraventricular tachycardia) Surgical History H/O colonoscopy H/O hernia repair History of colostomy reversal History of esophagogastroduodenoscopy (EGD) Status post Paula's procedure Diagnostics Labs Results: 08/25/21 22:04 08/25/21 22:04 Meds/Allergies Meds Home Medications Acetaminophen (Acetaminophen 325 Mg Tablet) 650 mg PO Q6H PRN PRN Reason: Headache/Pain Mild Scale (1-3) Al Hydroxide/Mg Hydroxide (Magnesium Hydrox/Alum Hydrox 30 Ml Oral.Susp) 30 ml PO Q6H PRN PRN Reason: Heartburn/Nausea Apixaban (Apixaban 5 Mg Tablet) 5 mg PO BID [facility] Last Admin: 08/26/21 08:38 Dose: 5 mg Documented by: Atorvastatin Calcium (Atorvastatin Calcium 40 Mg Tablet) 40 mg PO BEDTIME [facility] Last Admin: 08/25/21 23:36 Dose: Not Given Documented by: Benzonatate (Benzonatate 100 Mg Capsule) 100 mg PO TID PRN PRN Reason: cough Docusate Sodium (Docusate Sodium 100 Mg Capsule) 100 mg PO BID [facility] Last Admin: 08/26/21 08:38 Dose: 100 mg Documented by: Erythromycin (Erythromycin Base 0.5% Oph Oin 1 Gm Tube) 1 cm EYE-BOTH BID [facility] Last Admin: 08/26/21 08:43 Dose: Not Given Documented by: Ferrous Sulfate (Ferrous Sulfate 324 Mg Tablet.Dr) 324 mg PO DAILY [facility] Last Admin: 08/26/21 08:38 Dose: 324 mg Documented by: Hydroxyzine HCl (Hydroxyzine Hcl 25 Mg Tablet) 25 mg PO BEDTIME PRN PRN Reason: Anxiety Last Admin: 08/25/21 05:36 Dose: 25 mg Documented by: Magnesium Hydroxide (Milk Of Magnesia 30 Ml Oral.Susp) 30 ml PO DAILY PRN PRN Reason: Constipation Nortriptyline HCl (Nortriptyline Hcl 10 Mg Capsule) 10 mg PO BEDTIME [facility] Last Admin: 08/25/21 23:37 Dose: Not Given Documented by: Olanzapine (Olanzapine 5 Mg Tablet) 5 mg PO BEDTIME [facility] Last Admin: 08/25/21 23:37 Dose: Not Given Documented by: Olanzapine (Olanzapine 2.5 Mg Tablet) 1.25 mg PO DAILY PRN PRN Reason: Anxiety Last Admin: 08/26/21 04:18 Dose: 1.25 mg Documented by: Omeprazole (Omeprazole 20 Mg Isacc.) 20 mg PO DAILY@0630 [facility] Last Admin: 08/26/21 08:37 Dose: 20 mg Documented by: Oxybutynin Chloride (Oxybutynin Chloride Er 5 Mg Tab.Er.24) 5 mg PO DAILY [facility] Last Admin: 08/26/21 08:38 Dose: 5 mg Documented by: Trazodone HCl (Trazodone Hcl 50 Mg Tablet) 50 mg PO BEDTIME [facility] Last Admin: 08/25/21 23:37 Dose: Not Given Documented by: Vitamin D (Cholecalciferol (Vitamin D3) 10 Mcg Tablet) 10 mcg PO DAILY [facility] Last Admin: 08/26/21 08:38 Dose: 10 mcg Documented by: Allergies Allergies Allergy/AdvReac Type Severity Reaction Status Date / Time No Known Allergies Allergy Verified 01/25/21 06:43 [No Known Allergies*] Assessment & Plan Assessment & Plan (1) Major depressive disorder, recurrent, severe with psychotic features: Status: Acute Code(s): F33.3 - Major depressive disorder, recurrent, severe with psychotic symptoms Assessment and Plan: José Luis is a 76 year old male who carries a dx of MDD, recurrent, severe with hx of psychosis, catatonia. He is known to [facility] for similar presentation and has received ECT with good effect in the past. No medications made on admission, as pt declined med changes. He stated he has difficulty sleeping but when offered sleep aids/ hypnotics, pt stated ?it wont do much? and ?they wont work.? Per crisis jaja, the director at pt?s SNF reported pt sees Dr. Sims in the community and there was A plan to see if ECT could be discontinued and if the patient could transition to TMS patient has a history of only responding to maintenance ECT treatments whenever this is been discontinued the patient has relapsed into a severe depression. He also had a medication change 3 weeks ago. Plan: Monitor response to medications. Monitor for safety in the milieu. Discharge on stabilization. Patient seen. Chart reviewed. Discussed with team. Obtain collateral contact info?as needed
[2021-08-19] MEDS: traZODone HCL 50 MG TABLET PO (21:28)
[2021-08-19] MEDS: Atorvastatin Calcium 40 MG TABLET PO (21:28)
[2021-08-19] MEDS: OLANZapine 5 MG TABLET PO (21:28)
[2021-08-20] MEDS: Omeprazole 20 MG CAPSULE.DR PO (06:19)
--- NOTE | 2021-08-20 07:00 | ECG_ITS ---
Test Reason : pre ect Blood Pressure : / mmHG Vent. Rate : 106 BPM Atrial Rate : 106 BPM P-R Int : 150 ms QRS Dur : 086 ms QT Int : 358 ms P-R-T Axes : 015 -34 050 degrees QTc Int : 475 ms Sinus tachycardia Left axis deviation Nonspecific ST and T wave abnormality Abnormal ECG When compared with ECG of 22-FEB-2021 11:28, Vent. rate has increased BY [address] now depressed in Lateral leads T wave inversion no longer evident in Inferior leads Referred By: Leila Bryson Electronically Signed By:BEE CRENSHAW MD
[2021-08-20 09:03] LABS: Estimated Average Glucose 120 mg/dL; Hemoglobin A1c % 5.8 %
[2021-08-20 09:08] LABS: Alanine Aminotransferase 22 U/L (0-40); Albumin Level 4.3 g/dL (3.5-5.0); Alkaline Phosphatase 124 U/L (39-117); Anion Gap 19 (12-20); Aspartate Amino Transferase 23 U/L (5-37); Bilirubin Total 1.4 mg/dL (0.0-1.0); Blood Urea Nitrogen 30 mg/dL (9-16); Calcium 9.4 mg/dL (8.4-10.2); Carbon Dioxide 19 mmol/L (22-29); Chloride 106 mmol/L (96-108); Cholesterol 153 mg/dL; Creatinine Clr Calc Pharmacy 68.6; Estimated Glomerular Filt Rate > 60; Glucose Random 84 mg/dL (60-115); HDL Cholesterol 40 mg/dL; LDL Cholesterol Calculated 90 mg/dl; Potassium 4.1 mmol/L (3.3-5.1); Sodium 140 mmol/L (135-145); Total Protein 6.9 g/dL (6.5-8.0); Triglycerides 118 mg/dL
[2021-08-20 09:29] LABS: Vitamin D 25-OH Total 24.8 ng/mL (>30)
[2021-08-20] MEDS: Apixaban 5 MG TABLET PO ×2 (09:29→20:38)
[2021-08-20] MEDS: Ferrous Sulfate 324 MG TABLET.DR PO (09:29)
[2021-08-20] MEDS: Docusate Sodium 100 MG CAPSULE PO ×2 (09:29→20:38)
[2021-08-20 09:46] LABS: Folate 11.8 ng/mL (> or = 4.0); Vitamin B12 668 pg/mL (200-900)
[2021-08-20 12:00] VITALS: BP 110/58; PULSE 101
--- NOTE | 2021-08-20 15:28 | HO.PSYCHPN ---
Subjective Subjective Date of Service: 08/20/21 Reason For Visit: Recurrent major depressive D/O Severe Subjective Notes: Conditional Voluntary (HCP activated by the court) Healthcare Proxy: Yes Guardianship: No Interim History: José Luis is well known to our service. He currently resides in [facility] and his daughter Charmaine is his activated HCP. He reports depression. No real specific precipitants. Per crisis eval the [facility] team reports a decline since the onset of COVID. They see anxiety, he often states he wants to with recent progression to wanting to kill himself. He has experienced a decrease in energy, with increased time remaining in bed and has experienced a decrease in his attention to his hygiene. He has also decreased his attendance in activities with peers. Gilda reports a change in ECT schedule last week and a medication change approximately three weeks ago. Today, pt seen x 2. He does respond to [facility] team support as he knows them well-He participated in a shower with Ciara Ledbetter RN, Director of Behavioral Health and is eating and drinking with team encouragement. Dr. Molina will consult for possible increase in ECT. Medically RBC and HCT are lowered, BUN is elevated, Carbon Dioxide is decreased, Total Bilirubin and Alkaline Phos are elevated. Chest X ray shows lungs are clear and pt does have hiatal hernia 9 cm. EKG with QTc of 475, increase in ventricular rate and ST Depression in lateral leads, Left axis deviation and rate of 106. Vitamin D is 24.8. Medication Compliance: Yes Side effects from medications: No Attending Groups: No Review of Systems Acute medical concerns: No Evaluation for medical clearance for ECT Medical Review of Systems: unchanged Review of Systems Reports behavioral changes Psychiatric: Reports abnormal sleep pattern, Reports anxiety, Reports behavioral changes, Reports change in appetite, Reports depression, Reports difficulty concentrating, Reports hopelessness, Reports irritability, Reports anhedonia and Reports suicidal ideation Mental Status Exam Mental Status Exam Patient Appearance: Disheveled Patient Orientation: Person, Place and Situation Level of Consciousness: Awake, Sedated and Alert Patient Behavior: Dependent, Cooperative, Passive, Anxious, Avoidant, Fatigued, Isolative and Poor Eye Contact Mood Description: Depressed Affect Description: Flat Patient Cognition Impaired: Yes Ability to Follow Directions: Good Speech Pattern: Monotone, Spontaneous Speech, Soft-Spoken and Long Pauses Memory Description: Remote Impaired Hallucinations: None Delusions: Not Present Thought Process: Rumination Thought Content: positive for [place], positive for Perseveration and positive for Suicidal Ideation Depressive Symptoms: Increased Anxiety, Diff. Making Decisions, Increased Irritability, Changes in Appetite, Sleeping More Than Usual, Loss of Int. in Activity, Hopelessness, Unhappiness, Increased Fatigue, Thoughts of /Suicide, Loss of Energy and Difficulty Concentrating Judgement: Poor Diagnostics Vital Signs (24Hr): Vital Signs - 24 hr 08/19/21 18:15 Temperature 98 F Pulse Rate 83 Respiratory Rate 14 Blood Pressure 116/68 Pulse Oximetry 99 Body Mass Index 22.9 Labs Results: 08/17/21 21:16 08/20/21 08:25 Labs: Laboratory Results - last 48 hr 08/19/21 08/20/21 08/20/21 09:11 08:25 08:25 Sodium 140 Potassium 4.1 Chloride 106 Carbon Dioxide 19 L Anion Gap 19 BUN 30 H Creatinine 0.91 Estim Creat Clear Calc 68.6 Estimated GFR > 60 Random Glucose 84 D Estimat Average Glucose 120 Hemoglobin A1c % 5.8 Calcium 9.4 Total Bilirubin 1.4 H AST 23 ALT 22 Alkaline Phosphatase 124 H Total Protein 6.9 Albumin 4.3 Triglycerides 118 Cholesterol 153 LDL Cholesterol, Calc 90 HDL Cholesterol 40 Vitamin B12 25-OH Vitamin D Total 24.8 Folate TSH 0.60 COVID-19 ([facility]) Negative COVID-19 Clin Com See Note 08/20/21 08:25 Sodium Potassium Chloride Carbon Dioxide Anion Gap BUN Creatinine Estim Creat Clear Calc Estimated GFR Random Glucose Estimat Average Glucose Hemoglobin A1c % Calcium Total Bilirubin AST ALT Alkaline Phosphatase Total Protein Albumin Triglycerides Cholesterol LDL Cholesterol, Calc HDL Cholesterol Vitamin B12 668 25-OH Vitamin D Total Folate 11.8 TSH COVID-19 ([facility]) COVID-19 Clin Com Imaging Radiology Impressions: ITS Impressions Chest X-Ray 08/20/21 10:00 IMPRESSION: 1. Lungs grossly clear. No infiltrate or effusion. 2. Hiatal hernia, approximately 9 cm. Medications Medications Current Medications Acetaminophen (Acetaminophen 325 Mg Tablet) 650 mg PO Q6H PRN PRN Reason: Headache/Pain Mild Scale (1-3) Al Hydroxide/Mg Hydroxide (Magnesium Hydrox/Alum Hydrox 30 Ml Oral.Susp) 30 ml PO Q6H PRN PRN Reason: Heartburn/Nausea Apixaban (Apixaban 5 Mg Tablet) 5 mg PO BID [facility] Last Admin: 08/20/21 09:29 Dose: 5 mg Documented by: Atorvastatin Calcium (Atorvastatin Calcium 40 Mg Tablet) 40 mg PO BEDTIME [facility] Last Admin: 08/19/21 21:28 Dose: 40 mg Documented by: Benzonatate (Benzonatate 100 Mg Capsule) 100 mg PO TID PRN PRN Reason: cough Docusate Sodium (Docusate Sodium 100 Mg Capsule) 100 mg PO BID [facility] Last Admin: 08/20/21 09:29 Dose: 100 mg Documented by: Ferrous Sulfate (Ferrous Sulfate 324 Mg Tablet.) 324 mg PO DAILY [facility] Last Admin: 08/20/21 09:29 Dose: 324 mg Documented by: Hydroxyzine HCl (Hydroxyzine Hcl 25 Mg Tablet) 25 mg PO BEDTIME PRN PRN Reason: Anxiety Magnesium Hydroxide (Milk Of Magnesia 30 Ml Oral.Susp) 30 ml PO DAILY PRN PRN Reason: Constipation Olanzapine (Olanzapine 5 Mg Tablet) 5 mg PO BEDTIME [facility] Last Admin: 08/19/21 21:28 Dose: 5 mg Documented by: Olanzapine (Olanzapine 2.5 Mg Tablet) 1.25 mg PO DAILY PRN PRN Reason: Anxiety Omeprazole (Omeprazole 20 Mg Capsule.) 20 mg PO DAILY@0630 [facility] Last Admin: 08/20/21 06:19 Dose: 20 mg Documented by: Oxybutynin Chloride (Oxybutynin Chloride Er 5 Mg Tab.Er.24) 5 mg PO DAILY [facility] Last Admin: 08/20/21 09:29 Dose: 5 mg Documented by: Trazodone HCl (Trazodone Hcl 50 Mg Tablet) 50 mg PO BEDTIME [facility] Last Admin: 08/19/21 21:28 Dose: 50 mg Documented by: Allergies Allergies Allergy/AdvReac Type Severity Reaction Status Date / Time No Known Allergies Allergy Verified 01/25/21 06:43 [No Known Allergies*] Assessment & Plan Assessment & Plan (1) Major depressive disorder, recurrent, severe with psychotic features: Status: Acute Code(s): F33.3 - Major depressive disorder, recurrent, severe with psychotic symptoms Assessment and Plan: 76 yo male, resident of [facility] with a history of recurrent major depression, severe, with psychotic features along with co-morbidities of dementia, diverticulitis, GERD, HTN, HLD, Hx of PE and SVT. New Hiatal Hernia 9 cm on CXR admitted from [facility] for increase in depressive symptoms along with more active SI-indicating that he wanted to progressing to wanting to kill himself along with overall decline in daily functioning. Pt with recent changes in medications and ECT schedule. Plan: ECT Consult with Dr. Molina Begin medical clearance I spent 40 minutes with the patient and/or on the patient floor today, greater than?50% of which was spent counseling/coordinating care. Informed Consent: does not understand Reason for contiued inpatient stay Substantial Risk for: harm to self, inability to function, rapid decompensation and med/psych decompensation
[2021-08-20 16:43] VITALS: BP 108/58; PULSE 97; RESP 16; TEMP 36; O2SAT 95
--- NOTE | 2021-08-20 20:01 | PC.NURSE ---
This advertising copy writer went into pt's room and coached pt to get up and take a walk. This advertising copy writer had to help motivate him a lot to get him to take a walk. Pt complied and walked down to the kitchen. At this time, art therapy was happening and this advertising copy writer asked pt if he would like to go in. Pt didn't answer but continued to walk into the kitchen and sat down. This advertising copy writer told the pt that they were going to bring some art supplies over for him to use. Pt was able to color with this advertising copy writer and actively participate in art therapy. This advertising copy writer talked with the pt a little and the pt stated that he did not want to get up and do art. This advertising copy writer talked with the pt and stated that he has been in bed for a while and it will feel uncomfortable to be out of bed. This advertising copy writer also stated that over time the more he moves, the easier it will be to get up. Pt was able to take a short walk after art therapy and walk back to his room. Pt asked for some apple juice and was able to drink the whole thing. Pt settled back in bed and this advertising copy writer told him they would be back in to check on him.
[2021-08-20] MEDS: traZODone HCL 50 MG TABLET PO (20:38)
[2021-08-20] MEDS: Atorvastatin Calcium 40 MG TABLET PO (20:38)
[2021-08-20] MEDS: OLANZapine 5 MG TABLET PO (20:38)
[2021-08-21 06:00] VITALS: BP 124/79; PULSE 90; TEMP 36.2; O2SAT 95
[2021-08-21] MEDS: Omeprazole 20 MG CAPSULE.DR PO (06:40)
[2021-08-21 08:15] VITALS: BP 112/66; PULSE 91; RESP 14; O2SAT 95
[2021-08-21] MEDS: Cholecalciferol (Vitamin D3) 10 MCG TABLET PO (09:03)
[2021-08-21] MEDS: Docusate Sodium 100 MG CAPSULE PO ×2 (09:03→21:22)
[2021-08-21] MEDS: Ferrous Sulfate 324 MG TABLET.DR PO (09:03)
[2021-08-21] MEDS: Apixaban 5 MG TABLET PO ×2 (09:03→21:22)
--- NOTE | 2021-08-21 13:38 | P.CONIM_ITS ---
History of Present Illness Data of Consult Service Date: 08/21/21 Primary Care Provider: Unknown Physician HPI Reason for consult: medical consult a 75 years old male with PMH of HTN, HLD, depression, dementia among others who presented to the hospital due to severe depression. Medical team was consulted to evaluate the patient for the need of ECT clearance. He denies having any chest pain, shortness of breath, difficulty breathing, abdominal pain, nausea or vomiting or change in bowel habit. He denies having eyes discomfort Review of Systems Review of Systems: No fever, chills or weakness No chest pain, palpitation No shortness of breath or coughing No abdominal pain, nausea or vomiting No urinary symptoms No any rash or wounds [facility] Medical History COVID-19 vaccine administered Dementia Depression Diverticulitis of colon with perforation GERD (gastroesophageal reflux disease) History of electroconvulsive therapy HTN (hypertension) Hyperlipidemia Major depressive disorder, recurrent, severe with psychotic features Pulmonary embolism SVT (supraventricular tachycardia) Family History Brother Blood clot in vein Other No history of cardiac disorder Surgical History H/O colonoscopy H/O hernia repair History of colostomy reversal History of esophagogastroduodenoscopy (EGD) Status post Paula's procedure Social History Household Members: Other Housing: Assisted Living Facility Are you a primary managed care manager to a significant other at home: No Do you presently have visiting nurse or other home services: No Alcohol intake: former Patient Tobacco Use Status: Never used Tobacco Second Hand Smoke Exposure: No Use of substances other than those prescribed or required for medical reasons: No Currently Displaying Signs/Symptoms of Drug Intoxication Withdrawal: No Have you been hit, kicked, punched, or otherwise hurt by someone within the past year? If so, by whom?: No Do you feel safe in your current relationship?: No Current Relationship Is there a partner from a previous relationship who is making you feel unsafe now?: No Are you made to feel afraid or neglected: No Spiritual Healthcare Practices: refusing to respond Restoration Healthcare Practices: refusing to respond Cultural Healthcare Practices: refusing to respond Advance Directives: Yes Advance Directives Information Provided: No Advance Directives on File: Yes Advance Directives Date on File: 07/27/20 Do you have thoughts of harming others: None Do you have a plan to hurt others: No Plan Recently lost weight without trying: Unsure Poor oral hygiene: Yes service: Yes Current occupational status: retired Sexual orientation: Straight/Heterosexual Meds Allergies Allergy/AdvReac Type Severity Reaction Status Date / Time No Known Allergies Allergy Verified 01/25/21 06:43 [No Known Allergies*] Active Medications: Current Medications Acetaminophen (Acetaminophen 325 Mg Tablet) 650 mg PO Q6H PRN PRN Reason: Headache/Pain Mild Scale (1-3) Al Hydroxide/Mg Hydroxide (Magnesium Hydrox/Alum Hydrox 30 Ml Oral.Susp) 30 ml PO Q6H PRN PRN Reason: Heartburn/Nausea Apixaban (Apixaban 5 Mg Tablet) 5 mg PO BID [facility] Last Admin: 08/21/21 09:03 Dose: 5 mg Documented by: Atorvastatin Calcium (Atorvastatin Calcium 40 Mg Tablet) 40 mg PO BEDTIME [facility] Last Admin: 08/20/21 20:38 Dose: 40 mg Documented by: Benzonatate (Benzonatate 100 Mg Capsule) 100 mg PO TID PRN PRN Reason: cough Docusate Sodium (Docusate Sodium 100 Mg Capsule) 100 mg PO BID [facility] Last Admin: 08/21/21 09:03 Dose: 100 mg Documented by: Erythromycin (Erythromycin Base 0.5% Oph Oin 1 Gm Tube) 1 cm EYE-BOTH BID [facility] Ferrous Sulfate (Ferrous Sulfate 324 Mg Tablet.) 324 mg PO DAILY [facility] Last Admin: 08/21/21 09:03 Dose: 324 mg Documented by: Hydroxyzine HCl (Hydroxyzine Hcl 25 Mg Tablet) 25 mg PO BEDTIME PRN PRN Reason: Anxiety Magnesium Hydroxide (Milk Of Magnesia 30 Ml Oral.Susp) 30 ml PO DAILY PRN PRN Reason: Constipation Olanzapine (Olanzapine 5 Mg Tablet) 5 mg PO BEDTIME [facility] Last Admin: 08/20/21 20:38 Dose: 5 mg Documented by: Olanzapine (Olanzapine 2.5 Mg Tablet) 1.25 mg PO DAILY PRN PRN Reason: Anxiety Omeprazole (Omeprazole 20 Mg Capsule.) 20 mg PO DAILY@0630 [facility] Last Admin: 08/21/21 06:40 Dose: 20 mg Documented by: Oxybutynin Chloride (Oxybutynin Chloride Er 5 Mg Tab.Er.24) 5 mg PO DAILY [facility] Last Admin: 08/21/21 09:03 Dose: 5 mg Documented by: Trazodone HCl (Trazodone Hcl 50 Mg Tablet) 50 mg PO BEDTIME [facility] Last Admin: 08/20/21 20:38 Dose: 50 mg Documented by: Vitamin D (Cholecalciferol (Vitamin D3) 10 Mcg Tablet) 10 mcg PO DAILY [facility] Last Admin: 08/21/21 09:03 Dose: 10 mcg Documented by: Home Medications Medication Instructions Recorded Confirmed Last Taken Type atorvastatin 40 mg tablet 1 tab PO BEDTIME 08/18/21 08/18/21 Unknown History benztropine 1 mg tablet 1 tab PO BID 08/18/21 08/18/21 Unknown History finasteride 5 mg tablet 1 tab PO DAILY 08/18/21 08/18/21 Unknown History fluoxetine 10 mg capsule 1 cap PO DAILY 08/18/21 08/18/21 Unknown History olanzapine 10 mg tablet 5 mg PO BEDTIME 08/18/21 08/18/21 Unknown History olanzapine 2.5 mg tablet 0.5 tab PO DAILY PRN 08/18/21 08/18/21 Unknown History omeprazole 20 mg capsule,delayed 1 cap PO DAILY 08/18/21 08/18/21 Unknown History release propranolol 10 mg tablet 1 tab PO TID PRN 08/18/21 08/18/21 Unknown History trazodone 50 mg tablet 50 mg PO BEDTIME 08/18/21 08/18/21 Unknown History Physical Exam Vital Signs and Narrative: Vital Signs: Last Vital Signs Temp 97.2 F 08/21/21 06:00 Pulse 91 08/21/21 08:15 Resp 14 08/21/21 08:15 BP 112/66 08/21/21 08:15 Pulse Ox 95 08/21/21 08:15 Body Mass Index 22.9 Const: Other: Constitutional : Alert, oriented, not in distress Neck : Normal inspection, Supple Cardiovascular : RRR, S1 S2, no lower extremity edema Respiratory : Good bilateral air entry, no crackles, wheezes or rhonchi Gastrointestinal: soft, lax, Normal bowel sounds, Non tender Skin : Warm, Dry Results Labs CBC and Chem 7: 08/17/21 21:16 08/20/21 08:25 Assessment and Plan (1) Major depressive disorder, recurrent, severe with psychotic features: Status: Acute A 76 years old male with PMH of depression, HTN, HLD who presented with severe attack of depression. Need for ECT treatment EKG noted, no prolonged QT No medical contraindication noted at this time, can proceed No symptoms reported or noted on eye exam to suggest infection continue to monitor and use artificial tears as needed Thank you for the consult, please contact hospitalist team for any further questions.
--- NOTE | 2021-08-21 14:08 | PC.NURSE ---
Patient was transferred from today around 13:00 PM with history of fall . Patient is alert , Oriented to person, place and time. Patient . VT; TA : 104/55 , Pls : 110 , Temp. 97.9 , SPo2 : 95 . On Physical Examination : he had a small abrasion face anterior of the right forearm, and scattered bruises in the right ears. Reported no pain, no nausea, no vomiting, Declined complete assessment.
--- NOTE | 2021-08-21 15:43 | HO.PSYCHPN ---
Subjective Subjective Date of Service: 08/21/21 Reason For Visit: Recurrent major depressive D/O Severe Subjective Notes: Conditional Voluntary Interim History: The patient was transfer from [facility] to this unit for treatment. On interview, the patient was very restless on one-to-one observation is stating ?I am not doing okay . He looked confused, disorganized and very dysphoric. He was not able to elaborate more on interview. Mental Status Exam Mental Status Exam Patient Appearance: Well Grooomed (On hospital gowns) and Disheveled Patient Orientation: Person Level of Consciousness: Awake, Disoriented and Restless Patient Behavior: Guarded, Suspicious, Anxious, Distractible and Confused Mood Description: Withdrawn and Depressed Affect Description: Constricted Patient Cognition Impaired: Yes Ability to Follow Directions: Fair Speech Pattern: Impoverished and Soft-Spoken Hallucinations: None Delusions: Not Present Thought Process: Incoherent and Distracted Thought Content: positive for Poverty of Content and positive for Thought Blocking Depressive Symptoms: Increased Irritability Judgement: Fair Diagnostics Vital Signs (24Hr): Vital Signs - 24 hr 08/20/21 16:43 08/21/21 06:00 08/21/21 08:15 Temperature 96.8 F 97.2 F Pulse Rate 97 90 91 Respiratory Rate 16 14 Blood Pressure 108/58 L 124/79 112/66 Pulse Oximetry 95 95 95 Body Mass Index 22.9 Labs Results: 08/17/21 21:16 08/20/21 08:25 Labs: Laboratory Results - last 48 hr 08/20/21 08/20/21 08/20/21 08:25 08:25 08:25 Sodium 140 Potassium 4.1 Chloride 106 Carbon Dioxide 19 L Anion Gap 19 BUN 30 H Creatinine 0.91 Estim Creat Clear Calc 68.6 Estimated GFR > 60 Random Glucose 84 D Estimat Average Glucose 120 Hemoglobin A1c % 5.8 Calcium 9.4 Total Bilirubin 1.4 H AST 23 ALT 22 Alkaline Phosphatase 124 H Total Protein 6.9 Albumin 4.3 Triglycerides 118 Cholesterol 153 LDL Cholesterol, Calc 90 HDL Cholesterol 40 Vitamin B12 668 25-OH Vitamin D Total 24.8 Folate 11.8 TSH 0.60 Imaging Radiology Impressions: ITS Impressions Chest X-Ray 08/20/21 10:00 IMPRESSION: 1. Lungs grossly clear. No infiltrate or effusion. 2. Hiatal hernia, approximately 9 cm. Medications Medications Current Medications Acetaminophen (Acetaminophen 325 Mg Tablet) 650 mg PO Q6H PRN PRN Reason: Headache/Pain Mild Scale (1-3) Al Hydroxide/Mg Hydroxide (Magnesium Hydrox/Alum Hydrox 30 Ml Oral.Susp) 30 ml PO Q6H PRN PRN Reason: Heartburn/Nausea Apixaban (Apixaban 5 Mg Tablet) 5 mg PO BID [facility] Last Admin: 08/21/21 09:03 Dose: 5 mg Documented by: Atorvastatin Calcium (Atorvastatin Calcium 40 Mg Tablet) 40 mg PO BEDTIME [facility] Last Admin: 08/20/21 20:38 Dose: 40 mg Documented by: Benzonatate (Benzonatate 100 Mg Capsule) 100 mg PO TID PRN PRN Reason: cough Docusate Sodium (Docusate Sodium 100 Mg Capsule) 100 mg PO BID [facility] Last Admin: 08/21/21 09:03 Dose: 100 mg Documented by: Erythromycin (Erythromycin Base 0.5% Oph Oin 1 Gm Tube) 1 cm EYE-BOTH BID [facility] Ferrous Sulfate (Ferrous Sulfate 324 Mg Tablet.) 324 mg PO DAILY [facility] Last Admin: 08/21/21 09:03 Dose: 324 mg Documented by: Hydroxyzine HCl (Hydroxyzine Hcl 25 Mg Tablet) 25 mg PO BEDTIME PRN PRN Reason: Anxiety Magnesium Hydroxide (Milk Of Magnesia 30 Ml Oral.Susp) 30 ml PO DAILY PRN PRN Reason: Constipation Olanzapine (Olanzapine 5 Mg Tablet) 5 mg PO BEDTIME [facility] Last Admin: 08/20/21 20:38 Dose: 5 mg Documented by: Olanzapine (Olanzapine 2.5 Mg Tablet) 1.25 mg PO DAILY PRN PRN Reason: Anxiety Omeprazole (Omeprazole 20 Mg Capsule.) 20 mg PO DAILY@0630 [facility] Last Admin: 08/21/21 06:40 Dose: 20 mg Documented by: Oxybutynin Chloride (Oxybutynin Chloride Er 5 Mg Tab.Er.24) 5 mg PO DAILY [facility] Last Admin: 08/21/21 09:03 Dose: 5 mg Documented by: Trazodone HCl (Trazodone Hcl 50 Mg Tablet) 50 mg PO BEDTIME [facility] Last Admin: 08/20/21 20:38 Dose: 50 mg Documented by: Vitamin D (Cholecalciferol (Vitamin D3) 10 Mcg Tablet) 10 mcg PO DAILY [facility] Last Admin: 08/21/21 09:03 Dose: 10 mcg Documented by: Allergies Allergies Allergy/AdvReac Type Severity Reaction Status Date / Time No Known Allergies Allergy Verified 01/25/21 06:43 [No Known Allergies*] Assessment & Plan Assessment & Plan (1) Major depressive disorder, recurrent, severe with psychotic features: Status: Acute Code(s): F33.3 - Major depressive disorder, recurrent, severe with psychotic symptoms Assessment and Plan: A 76 years old male with PMH of depression, HTN, HLD who presented with severe attack of depression. Need for ECT treatment EKG noted, no prolonged QT No medical contraindication noted at this time, can proceed No symptoms reported or noted on eye exam to suggest infection continue to monitor and use artificial tears as needed Plan 1. We will consider ECT sings he has responded very well in the past. 2. Continue Zyprexa 5 mg p.o. q.h.s. and add Zyprexa 2.5 mg p.o. q.a.m. since he is very restless. 3. Continue Zyprexa 1.25 p.o. b.i.d. p.r.n. I spent minutes with the patient and/or on the patient floor today, greater than?50% of which was spent counseling/coordinating care. Reason for contiued inpatient stay Substantial Risk for: inability to function, rapid decompensation and med/psych decompensation
[2021-08-21 20:38] VITALS: BP 113/68; PULSE 99; RESP 16; TEMP 37; O2SAT 95
[2021-08-21] MEDS: OLANZapine 5 MG TABLET PO (21:22)
[2021-08-21] MEDS: Atorvastatin Calcium 40 MG TABLET PO (21:22)
[2021-08-21] MEDS: traZODone HCL 50 MG TABLET PO (21:22)
[2021-08-21] MEDS: Erythromycin Base 0.5% Oph Oin 1 GM TUBE 1 CM EYE-BOTH (21:22)
[2021-08-22] MEDS: hydrOXYzine HCL 25 MG TABLET PO (02:03)
[2021-08-22] MEDS: OLANZapine 2.5 MG TABLET 1.25 MG PO (05:40)
[2021-08-22] MEDS: Omeprazole 20 MG CAPSULE.DR PO (05:40)
[2021-08-22] MEDS: Ferrous Sulfate 324 MG TABLET.DR PO (11:08)
[2021-08-22] MEDS: Cholecalciferol (Vitamin D3) 10 MCG TABLET PO (11:08)
[2021-08-22] MEDS: Docusate Sodium 100 MG CAPSULE PO ×2 (11:08→20:45)
[2021-08-22] MEDS: Apixaban 5 MG TABLET PO ×2 (11:08→20:45)
--- NOTE | 2021-08-22 13:31 | HO.PSYCHPN ---
Subjective Subjective Date of Service: 08/22/21 Reason For Visit: Recurrent major depressive D/O Severe Subjective Notes: Conditional Voluntary (As per affirmed healthcare proxy) Interim History: The nursing staff reported that the patient has been restless. He received p.r.n. Zyprexa and he is on one-to-one for safety. He slept well last night. I discussed with Dr. Molina apparently Dr. Sims wanted to do a washout of his medications so I contact him and left a message. On interview, the patient reports not feeling well, he has been restless and he reminds on one-to-one observation Mental Status Exam Mental Status Exam Patient Appearance: Disheveled and Unkempt Patient Orientation: Person and Situation Level of Consciousness: Awake and Disoriented Patient Behavior: Guarded, Cooperative, Passive and Restless Mood Description: Withdrawn and Depressed Affect Description: Constricted Ability to Follow Directions: Good Speech Pattern: Clear Hallucinations: None Delusions: Not Present Thought Content: positive for Disorganized Judgement: Poor Diagnostics Vital Signs (24Hr): Vital Signs - 24 hr 08/21/21 20:38 Temperature 98.6 F Pulse Rate 99 Respiratory Rate 16 Blood Pressure 113/68 Pulse Oximetry 95 Body Mass Index 22.9 Labs Results: 08/17/21 21:16 08/20/21 08:25 Imaging Radiology Impressions: ITS Impressions Chest X-Ray 08/20/21 10:00 IMPRESSION: 1. Lungs grossly clear. No infiltrate or effusion. 2. Hiatal hernia, approximately 9 cm. Medications Medications Current Medications Acetaminophen (Acetaminophen 325 Mg Tablet) 650 mg PO Q6H PRN PRN Reason: Headache/Pain Mild Scale (1-3) Al Hydroxide/Mg Hydroxide (Magnesium Hydrox/Alum Hydrox 30 Ml Oral.Susp) 30 ml PO Q6H PRN PRN Reason: Heartburn/Nausea Apixaban (Apixaban 5 Mg Tablet) 5 mg PO BID [facility] Last Admin: 08/22/21 11:08 Dose: 5 mg Documented by: Atorvastatin Calcium (Atorvastatin Calcium 40 Mg Tablet) 40 mg PO BEDTIME [facility] Last Admin: 08/21/21 21:22 Dose: 40 mg Documented by: Benzonatate (Benzonatate 100 Mg Capsule) 100 mg PO TID PRN PRN Reason: cough Docusate Sodium (Docusate Sodium 100 Mg Capsule) 100 mg PO BID [facility] Last Admin: 08/22/21 11:08 Dose: 100 mg Documented by: Erythromycin (Erythromycin Base 0.5% Oph Oin 1 Gm Tube) 1 cm EYE-BOTH BID [facility] Last Admin: 08/22/21 11:12 Dose: Not Given Documented by: Ferrous Sulfate (Ferrous Sulfate 324 Mg Tablet.) 324 mg PO DAILY [facility] Last Admin: 08/22/21 11:08 Dose: 324 mg Documented by: Hydroxyzine HCl (Hydroxyzine Hcl 25 Mg Tablet) 25 mg PO BEDTIME PRN PRN Reason: Anxiety Last Admin: 08/22/21 02:03 Dose: 25 mg Documented by: Magnesium Hydroxide (Milk Of Magnesia 30 Ml Oral.Susp) 30 ml PO DAILY PRN PRN Reason: Constipation Olanzapine (Olanzapine 5 Mg Tablet) 5 mg PO BEDTIME [facility] Last Admin: 08/21/21 21:22 Dose: 5 mg Documented by: Olanzapine (Olanzapine 2.5 Mg Tablet) 1.25 mg PO DAILY PRN PRN Reason: Anxiety Last Admin: 08/22/21 05:40 Dose: 1.25 mg Documented by: Omeprazole (Omeprazole 20 Mg Capsule.) 20 mg PO DAILY@0630 [facility] Last Admin: 08/22/21 05:40 Dose: 20 mg Documented by: Oxybutynin Chloride (Oxybutynin Chloride Er 5 Mg Tab.Er.24) 5 mg PO DAILY [facility] Last Admin: 08/22/21 11:08 Dose: 5 mg Documented by: Trazodone HCl (Trazodone Hcl 50 Mg Tablet) 50 mg PO BEDTIME [facility] Last Admin: 08/21/21 21:22 Dose: 50 mg Documented by: Vitamin D (Cholecalciferol (Vitamin D3) 10 Mcg Tablet) 10 mcg PO DAILY [facility] Last Admin: 08/22/21 11:08 Dose: 10 mcg Documented by: Allergies Allergies Allergy/AdvReac Type Severity Reaction Status Date / Time No Known Allergies Allergy Verified 01/25/21 06:43 [No Known Allergies*] Assessment & Plan Assessment & Plan (1) Major depressive disorder, recurrent, severe with psychotic features: Status: Acute Code(s): F33.3 - Major depressive disorder, recurrent, severe with psychotic symptoms Assessment and Plan: José Luis is a 76 year old male who carries a dx of MDD, recurrent, severe with hx of psychosis, catatonia. He is known to [facility] for similar presentation and has received ECT with good effect in the past. No medications made on admission, as pt declined med changes. He stated he has difficulty sleeping but when offered sleep aids/ hypnotics, pt stated ?it wont do much? and ?they wont work.? Per crisis jaja, the director at pt?s SNF reported pt sees Dr. Sims in the community and there was a change to his ECT treatment a month ago, he had to stop treatment for a week because he was sick and then started it back up again about a week ago. He also had a medication change 3 weeks ago. Plan: Monitor response to medications. Monitor for safety in the milieu. Discharge on stabilization. Patient seen. Chart reviewed. Discussed with team. Obtain collateral contact info?as needed I spent minutes with the patient and/or on the patient floor today, greater than?50% of which was spent counseling/coordinating care. Reason for contiued inpatient stay Substantial Risk for: harm to self, inability to function, rapid decompensation and med/psych decompensation
[2021-08-22 18:00] VITALS: BP 109/68; PULSE 88; RESP 18; TEMP 37.1; O2SAT 95
[2021-08-22] MEDS: OLANZapine 5 MG TABLET PO (20:45)
[2021-08-22] MEDS: Erythromycin Base 0.5% Oph Oin 1 GM TUBE 1 CM EYE-BOTH (20:45)
[2021-08-22] MEDS: Atorvastatin Calcium 40 MG TABLET PO (20:45)
[2021-08-22] MEDS: traZODone HCL 50 MG TABLET PO (20:45)
[2021-08-23] MEDS: Omeprazole 20 MG CAPSULE.DR PO (06:56)
[2021-08-23] MEDS: Cholecalciferol (Vitamin D3) 10 MCG TABLET PO (08:52)
[2021-08-23] MEDS: Docusate Sodium 100 MG CAPSULE PO ×2 (08:52→20:31)
[2021-08-23] MEDS: Ferrous Sulfate 324 MG TABLET.DR PO (08:52)
[2021-08-23] MEDS: Apixaban 5 MG TABLET PO ×2 (08:52→20:32)
[2021-08-23] MEDS: Erythromycin Base 0.5% Oph Oin 1 GM TUBE 1 CM EYE-BOTH ×2 (08:52→20:31)
[2021-08-23 09:31] VITALS: BP 107/57; PULSE 98; TEMP 36.8; O2SAT 94
--- NOTE | 2021-08-23 13:47 | P.PNPSI_ITS ---
Subjective Subjective Date of Service: 08/23/21 Reason For Visit: Recurrent major depressive D/O Severe Subjective Notes: Conditional Voluntary Healthcare Proxy: Yes (Affirmed healthcare proxy daughter Brenda) Interim History: The nursing staff reported the patient is mostly in his bed all the time. He remains confused, restless and very anxious. Last night, I could contact his outpatient provider Dr. Sims and we discussed his case. He has tried Neurology antidepressants and so far he has failed. He usually presents with psychotic depression, very disorganized. We discussed the case at length and Dr. Sims agreed on the plan to start nortriptyline. On interview, the patient reports that he is not feeling well that he feels d epressed and he is very confused. He does not want to have ECT but historically he has responded to that and he is healthcare proxy agree with the plan. I called her, her daughter Brenda, agreed on the procedure. Mental Status Exam Mental Status Exam Patient Appearance: Disheveled and Unkempt Patient Orientation: Person Level of Consciousness: Disoriented, Restless and Obtunded Patient Behavior: Anxious, Distractible, Confused and Uncooperative Mood Description: Depressed Affect Description: Constricted Ability to Follow Directions: Fair Speech Pattern: Impoverished and Soft-Spoken Hallucinations: None Delusions: Not Present Thought Process: Distracted and Slowed Thinking Thought Content: positive for Perseveration, positive for Poverty of Content and positive for Thought Blocking Depressive Symptoms: Increased Irritability, Changes in Appetite and Feelings of Worthlessness Judgement: Poor Diagnostics Vital Signs (24Hr): Vital Signs - 24 hr 08/22/21 18:00 08/23/21 09:31 Temperature 98.7 F 98.3 F Pulse Rate 88 98 Respiratory Rate 18 Blood Pressure 109/68 107/57 L Pulse Oximetry 95 94 Body Mass Index 22.9 Labs Results: 08/17/21 21:16 08/20/21 08:25 Imaging Radiology Impressions: ITS Impressions Chest X-Ray 08/20/21 10:00 IMPRESSION: 1. Lungs grossly clear. No infiltrate or effusion. 2. Hiatal hernia, approximately 9 cm. Medications Medications Current Medications Acetaminophen (Acetaminophen 325 Mg Tablet) 650 mg PO Q6H PRN PRN Reason: Headache/Pain Mild Scale (1-3) Al Hydroxide/Mg Hydroxide (Magnesium Hydrox/Alum Hydrox 30 Ml Oral.Susp) 30 ml PO Q6H PRN PRN Reason: Heartburn/Nausea Apixaban (Apixaban 5 Mg Tablet) 5 mg PO BID [facility] Last Admin: 08/23/21 08:52 Dose: 5 mg Documented by: Atorvastatin Calcium (Atorvastatin Calcium 40 Mg Tablet) 40 mg PO BEDTIME [facility] Last Admin: 08/22/21 20:45 Dose: 40 mg Documented by: Benzonatate (Benzonatate 100 Mg Capsule) 100 mg PO TID PRN PRN Reason: cough Docusate Sodium (Docusate Sodium 100 Mg Capsule) 100 mg PO BID [facility] Last Admin: 08/23/21 08:52 Dose: 100 mg Documented by: Erythromycin (Erythromycin Base 0.5% Oph Oin 1 Gm Tube) 1 cm EYE-BOTH BID [facility] Last Admin: 08/23/21 08:52 Dose: 1 cm Documented by: Ferrous Sulfate (Ferrous Sulfate 324 Mg Tablet.) 324 mg PO DAILY [facility] Last Admin: 08/23/21 08:52 Dose: 324 mg Documented by: Hydroxyzine HCl (Hydroxyzine Hcl 25 Mg Tablet) 25 mg PO BEDTIME PRN PRN Reason: Anxiety Last Admin: 08/22/21 02:03 Dose: 25 mg Documented by: Magnesium Hydroxide (Milk Of Magnesia 30 Ml Oral.Susp) 30 ml PO DAILY PRN PRN Reason: Constipation Nortriptyline HCl (Nortriptyline Hcl 10 Mg Capsule) 10 mg PO BEDTIME [facility] Olanzapine (Olanzapine 5 Mg Tablet) 5 mg PO BEDTIME [facility] Last Admin: 08/22/21 20:45 Dose: 5 mg Documented by: Olanzapine (Olanzapine 2.5 Mg Tablet) 1.25 mg PO DAILY PRN PRN Reason: Anxiety Last Admin: 08/22/21 05:40 Dose: 1.25 mg Documented by: Omeprazole (Omeprazole 20 Mg Capsule.) 20 mg PO DAILY@0630 [facility] Last Admin: 08/23/21 06:56 Dose: 20 mg Documented by: Oxybutynin Chloride (Oxybutynin Chloride Er 5 Mg Tab.Er.24) 5 mg PO DAILY [facility] Last Admin: 08/23/21 08:51 Dose: 5 mg Documented by: Trazodone HCl (Trazodone Hcl 50 Mg Tablet) 50 mg PO BEDTIME [facility] Last Admin: 08/22/21 20:45 Dose: 50 mg Documented by: Vitamin D (Cholecalciferol (Vitamin D3) 10 Mcg Tablet) 10 mcg PO DAILY [facility] Last Admin: 08/23/21 08:52 Dose: 10 mcg Documented by: Allergies Allergies Allergy/AdvReac Type Severity Reaction Status Date / Time No Known Allergies Allergy Verified 01/25/21 06:43 [No Known Allergies*] Assessment & Plan Assessment & Plan (1) Major depressive disorder, recurrent, severe with psychotic features: Status: Acute Code(s): F33.3 - Major depressive disorder, recurrent, severe with psychotic symptoms Assessment and Plan: José Luis is a 76 year old male who carries a dx of MDD, recurrent, severe with hx of psychosis, catatonia. He is known to [facility] for similar presentation and has received ECT with good effect in the past. No medications made on admission, as pt declined med changes. He stated he has difficulty sleeping but when offered sleep aids/ hypnotics, pt stated ?it wont do much? and ?they wont work.? Per crisis jaja, the director at pt?s SNF reported pt sees Dr. Sims in the community and there was a change to his ECT treatment a month ago, he had to stop treatment for a week because he was sick and then started it back up again about a week ago. He also had a medication change 3 weeks ago. Plan: Start nortriptyline 10 mg p.o. q.h.s.. ECT for Thursday. Continue Zyprexa 5 mg p.o. q.h.s.. Monitor or for worsening of mental status I spent minutes with the patient and/or on the patient floor today, greater than?50% of which was spent counseling/coordinating care. Reason for contiued inpatient stay Substantial Risk for: harm to self, inability to function, rapid decompensation and med/psych decompensation
[2021-08-23 18:00] VITALS: BP 106/53; PULSE 100; RESP 17; TEMP 37.4; O2SAT 95
[2021-08-23] MEDS: OLANZapine 5 MG TABLET PO (20:31)
[2021-08-23] MEDS: Atorvastatin Calcium 40 MG TABLET PO (20:32)
[2021-08-23] MEDS: traZODone HCL 50 MG TABLET PO (20:32)
[2021-08-23] MEDS: Nortriptyline HCl 10 MG CAPSULE PO (20:32)
[2021-08-24] MEDS: Omeprazole 20 MG CAPSULE.DR PO (06:12)
[2021-08-24 08:03] VITALS: BP 123/78; PULSE 78; RESP 18; TEMP 36.8; O2SAT 96
[2021-08-24] MEDS: Apixaban 5 MG TABLET PO ×2 (08:26→20:33)
[2021-08-24] MEDS: Cholecalciferol (Vitamin D3) 10 MCG TABLET PO (08:29)
[2021-08-24] MEDS: Ferrous Sulfate 324 MG TABLET.DR PO (08:29)
[2021-08-24] MEDS: Erythromycin Base 0.5% Oph Oin 1 GM TUBE 1 CM EYE-BOTH ×2 (08:29→20:33)
[2021-08-24] MEDS: Docusate Sodium 100 MG CAPSULE PO ×2 (08:29→20:33)
--- NOTE | 2021-08-24 15:39 | P.PNPSI_ITS ---
Subjective Subjective Date of Service: 08/24/21 Reason For Visit: Recurrent major depressive D/O Severe Interim History: Patient seen and discussed with staff. Patient remains very depressed. Laying in bed. Severe psychomotor retardation. When asked how he feels, he says I'm not good . He denies any pain or systemic symptoms. He has trouble sleeping and voices SI without intent or plan to hurt himself on the unit. He is scheduled for ECT on Thursday. Needs encouragement to participate and leave his room. He is eating and drinking some per patient. Medication Compliance: Yes Side effects from medications: No Review of Systems Acute medical concerns: No Review of Systems Review of Systems CVS: No c/o chest pain, palpitations, no SOB [employer]: No c/o dizziness, headache GI: No c/o Nausea, Vomiting, diarrhea, constipation or heartburn Reports behavioral changes Psychiatric: Reports abnormal sleep pattern, Reports anxiety, Reports behavioral changes, Reports change in appetite, Reports depression, Reports difficulty concentrating, Reports hopelessness, Reports irritability, Reports anhedonia and Reports suicidal ideation Mental Status Exam Mental Status Exam Narrative: A&O except to time. Lying down in bed, psychomotor restlessness, unkempt appearance. Poor eye contact, inattentive. No Tics or Tremors. No abnormal involuntary movements. Withdrawn, difficult to engage. Non-pressured speech, non-spontaneous, taciturn, muffled. Mood is ?depressed,? affect is blunted, dysphoric. Denies SI/SIB/HI upon inquiry. Denies A/VH or delusional thought content. Thoughts are notable for poverty of content, pt replies I dont know for much of interview. No known cognitive or memory impairment. Insight/ Judgment limited. Patient Appearance: Disheveled and Unkempt Patient Orientation: Person Level of Consciousness: Disoriented, Restless and Lethargic Patient Behavior: Anxious, Distractible, Confused and Uncooperative Mood Description: Apathetic, Withdrawn, Depressed and Flat Affect Description: Apathetic, Depressed and Flat Patient Cognition Impaired: Yes Ability to Follow Directions: Fair Speech Pattern: Impoverished and Soft-Spoken Memory Description: Remote Impaired Thought Content: positive for Poverty of Content, positive for Slowed Thinking and positive for Suicidal Ideation Depressive Symptoms: Diff. Making Decisions Diagnostics Vital Signs (24Hr): Vital Signs - 24 hr 08/23/21 18:00 08/24/21 08:03 Temperature 99.4 F 98.2 F Pulse Rate 100 78 Respiratory Rate 17 18 Blood Pressure 106/53 L 123/78 Pulse Oximetry 95 96 Body Mass Index 22.9 Labs Results: 08/17/21 21:16 08/20/21 08:25 Imaging Radiology Impressions: ITS Impressions Chest X-Ray 08/20/21 10:00 IMPRESSION: 1. Lungs grossly clear. No infiltrate or effusion. 2. Hiatal hernia, approximately 9 cm. Medications Medications Current Medications Acetaminophen (Acetaminophen 325 Mg Tablet) 650 mg PO Q6H PRN PRN Reason: Headache/Pain Mild Scale (1-3) Al Hydroxide/Mg Hydroxide (Magnesium Hydrox/Alum Hydrox 30 Ml Oral.Susp) 30 ml PO Q6H PRN PRN Reason: Heartburn/Nausea Apixaban (Apixaban 5 Mg Tablet) 5 mg PO BID [facility] Last Admin: 08/24/21 08:26 Dose: 5 mg Documented by: Atorvastatin Calcium (Atorvastatin Calcium 40 Mg Tablet) 40 mg PO BEDTIME [facility] Last Admin: 08/23/21 20:32 Dose: 40 mg Documented by: Benzonatate (Benzonatate 100 Mg Capsule) 100 mg PO TID PRN PRN Reason: cough Docusate Sodium (Docusate Sodium 100 Mg Capsule) 100 mg PO BID [facility] Last Admin: 08/24/21 08:29 Dose: 100 mg Documented by: Erythromycin (Erythromycin Base 0.5% Oph Oin 1 Gm Tube) 1 cm EYE-BOTH BID [facility] Last Admin: 08/24/21 08:29 Dose: 1 cm Documented by: Ferrous Sulfate (Ferrous Sulfate 324 Mg Tablet.) 324 mg PO DAILY [facility] Last Admin: 08/24/21 08:29 Dose: 324 mg Documented by: Hydroxyzine HCl (Hydroxyzine Hcl 25 Mg Tablet) 25 mg PO BEDTIME PRN PRN Reason: Anxiety Last Admin: 08/22/21 02:03 Dose: 25 mg Documented by: Magnesium Hydroxide (Milk Of Magnesia 30 Ml Oral.Susp) 30 ml PO DAILY PRN PRN Reason: Constipation Nortriptyline HCl (Nortriptyline Hcl 10 Mg Capsule) 10 mg PO BEDTIME [facility] Last Admin: 08/23/21 20:32 Dose: 10 mg Documented by: Olanzapine (Olanzapine 5 Mg Tablet) 5 mg PO BEDTIME [facility] Last Admin: 08/23/21 20:31 Dose: 5 mg Documented by: Olanzapine (Olanzapine 2.5 Mg Tablet) 1.25 mg PO DAILY PRN PRN Reason: Anxiety Last Admin: 08/22/21 05:40 Dose: 1.25 mg Documented by: Omeprazole (Omeprazole 20 Mg Capsule.) 20 mg PO DAILY@0630 [facility] Last Admin: 08/24/21 06:12 Dose: 20 mg Documented by: Oxybutynin Chloride (Oxybutynin Chloride Er 5 Mg Tab.Er.24) 5 mg PO DAILY [facility] Last Admin: 08/24/21 08:28 Dose: 5 mg Documented by: Trazodone HCl (Trazodone Hcl 50 Mg Tablet) 50 mg PO BEDTIME [facility] Last Admin: 08/23/21 20:32 Dose: 50 mg Documented by: Vitamin D (Cholecalciferol (Vitamin D3) 10 Mcg Tablet) 10 mcg PO DAILY [facility] Last Admin: 08/24/21 08:29 Dose: 10 mcg Documented by: Allergies Allergies Allergy/AdvReac Type Severity Reaction Status Date / Time No Known Allergies Allergy Verified 01/25/21 06:43 [No Known Allergies*] Assessment & Plan Assessment & Plan (1) Major depressive disorder, recurrent, severe with psychotic features: Status: Acute Code(s): F33.3 - Major depressive disorder, recurrent, severe with psychotic symptoms Assessment and Plan: José Luis is a 76 year old male who carries a dx of MDD, recurrent, severe with hx of psychosis, catatonia. He is known to [facility] for similar presentation and has received ECT with good effect in the past. No medications made on admission, as pt declined med changes. He stated he has difficulty sleeping but when offered sleep aids/ hypnotics, pt stated ?it wont do much? and ?they wont work.? Per crisis jaja, the director at pt?s [facility] reported pt sees Dr. Sims in the community and there was a change to his ECT treatment a month ago, he had to stop treatment for a week because he was sick and then started it back up again about a week ago. He also had a medication change 3 weeks ago. Plan: nortriptyline 10 mg p.o. q.h.s.. ECT for Thursday. Continue Zyprexa 5 mg p.o. q.h.s.. Monitor or for worsening of mental status I spent minutes with the patient and/or on the patient floor today, greater than?50% of which was spent counseling/coordinating care. Reason for contiued inpatient stay Substantial Risk for: harm to self, inability to function and med/psych decompensation
[2021-08-24 18:00] VITALS: BP 118/62; PULSE 95; RESP 15; TEMP 36.8; O2SAT 97
[2021-08-24 19:30] VITALS: BP 136/80; PULSE 89; RESP 18; TEMP 36.8; O2SAT 95
[2021-08-24] MEDS: OLANZapine 5 MG TABLET PO (20:33)
[2021-08-24] MEDS: Nortriptyline HCl 10 MG CAPSULE PO (20:33)
[2021-08-24] MEDS: Atorvastatin Calcium 40 MG TABLET PO (20:33)
[2021-08-24] MEDS: traZODone HCL 50 MG TABLET PO (20:33)
[2021-08-25] MEDS: hydrOXYzine HCL 25 MG TABLET PO (05:36)
[2021-08-25] MEDS: Omeprazole 20 MG CAPSULE.DR PO (05:36)
[2021-08-25] MEDS: LORazepam 1 MG TABLET PO (12:31)
--- NOTE | 2021-08-25 13:45 | HO.PSYCHPN ---
Subjective Subjective Date of Service: 08/25/21 Reason For Visit: Recurrent major depressive D/O Severe Interim History: Patient seen and discussed with staff. Patient remains very depressed. Laying in bed. Restless.Minimally communicative. Desheveled wwith poor eye contact. Legs are restless while laying on his side. When asked how he feels, he says Not good . He denies any pain or systemic symptoms. He has trouble sleeping and voices SI without intent or plan to hurt himself on the unit. He is scheduled for ECT on Thursday. Needs encouragement to participate and leave his room. He didn't eat breakfast or lunch this morning Review of Systems Review of Systems CVS: No c/o chest pain, palpitations, no SOB [employer]: No c/o dizziness, headache GI: No c/o Nausea, Vomiting, diarrhea, constipation or heartburn Reports behavioral changes Psychiatric: Reports abnormal sleep pattern, Reports anxiety, Reports behavioral changes, Reports change in appetite, Reports depression, Reports difficulty concentrating, Reports hopelessness, Reports irritability, Reports anhedonia and Reports suicidal ideation Mental Status Exam Mental Status Exam Narrative: A&O except to time. Lying down in bed, psychomotor restlessness, unkempt appearance. Poor eye contact, inattentive. No Tics or Tremors. No abnormal involuntary movements. Withdrawn, difficult to engage. Non-pressured speech, non-spontaneous, taciturn, muffled. Mood is ?depressed,? affect is blunted, dysphoric. Denies SI/SIB/HI upon inquiry. Denies A/VH or delusional thought content. Thoughts are notable for poverty of content, pt replies I dont know for much of interview. No known cognitive or memory impairment. Insight/ Judgment limited. Patient Appearance: Disheveled and Unkempt Patient Orientation: Person Level of Consciousness: Disoriented, Restless and Lethargic Patient Behavior: Anxious, Distractible, Confused and Uncooperative Mood Description: Apathetic, Withdrawn, Depressed and Flat Affect Description: Apathetic, Depressed and Flat Patient Cognition Impaired: Yes Ability to Follow Directions: Fair Speech Pattern: Impoverished, Soft-Spoken and Long Pauses Memory Description: Remote Impaired Diagnostics Vital Signs (24Hr): Body Mass Index 22.9 Labs Results: 08/17/21 21:16 08/20/21 08:25 Imaging Radiology Impressions: ITS Impressions Chest X-Ray 08/20/21 10:00 IMPRESSION: 1. Lungs grossly clear. No infiltrate or effusion. 2. Hiatal hernia, approximately 9 cm. Medications Medications Current Medications Acetaminophen (Acetaminophen 325 Mg Tablet) 650 mg PO Q6H PRN PRN Reason: Headache/Pain Mild Scale (1-3) Al Hydroxide/Mg Hydroxide (Magnesium Hydrox/Alum Hydrox 30 Ml Oral.Susp) 30 ml PO Q6H PRN PRN Reason: Heartburn/Nausea Apixaban (Apixaban 5 Mg Tablet) 5 mg PO BID [facility] Last Admin: 08/25/21 10:11 Dose: Not Given Documented by: Atorvastatin Calcium (Atorvastatin Calcium 40 Mg Tablet) 40 mg PO BEDTIME [facility] Last Admin: 08/24/21 20:33 Dose: 40 mg Documented by: Benzonatate (Benzonatate 100 Mg Capsule) 100 mg PO TID PRN PRN Reason: cough Docusate Sodium (Docusate Sodium 100 Mg Capsule) 100 mg PO BID [facility] Last Admin: 08/25/21 10:12 Dose: Not Given Documented by: Erythromycin (Erythromycin Base 0.5% Oph Oin 1 Gm Tube) 1 cm EYE-BOTH BID [facility] Last Admin: 08/25/21 10:12 Dose: Not Given Documented by: Ferrous Sulfate (Ferrous Sulfate 324 Mg Tablet.) 324 mg PO DAILY [facility] Last Admin: 08/25/21 10:12 Dose: Not Given Documented by: Hydroxyzine HCl (Hydroxyzine Hcl 25 Mg Tablet) 25 mg PO BEDTIME PRN PRN Reason: Anxiety Last Admin: 08/25/21 05:36 Dose: 25 mg Documented by: Magnesium Hydroxide (Milk Of Magnesia 30 Ml Oral.Susp) 30 ml PO DAILY PRN PRN Reason: Constipation Nortriptyline HCl (Nortriptyline Hcl 10 Mg Capsule) 10 mg PO BEDTIME [facility] Last Admin: 08/24/21 20:33 Dose: 10 mg Documented by: Olanzapine (Olanzapine 5 Mg Tablet) 5 mg PO BEDTIME [facility] Last Admin: 08/24/21 20:33 Dose: 5 mg Documented by: Olanzapine (Olanzapine 2.5 Mg Tablet) 1.25 mg PO DAILY PRN PRN Reason: Anxiety Last Admin: 08/22/21 05:40 Dose: 1.25 mg Documented by: Omeprazole (Omeprazole 20 Mg Capsule.) 20 mg PO DAILY@0630 [facility] Last Admin: 08/25/21 05:36 Dose: 20 mg Documented by: Oxybutynin Chloride (Oxybutynin Chloride Er 5 Mg Tab.Er.24) 5 mg PO DAILY [facility] Last Admin: 08/25/21 10:12 Dose: Not Given Documented by: Trazodone HCl (Trazodone Hcl 50 Mg Tablet) 50 mg PO BEDTIME [facility] Last Admin: 08/24/21 20:33 Dose: 50 mg Documented by: Vitamin D (Cholecalciferol (Vitamin D3) 10 Mcg Tablet) 10 mcg PO DAILY [facility] Last Admin: 08/25/21 10:11 Dose: Not Given Documented by: Allergies Allergies Allergy/AdvReac Type Severity Reaction Status Date / Time No Known Allergies Allergy Verified 01/25/21 06:43 [No Known Allergies*] Assessment & Plan Assessment & Plan (1) Major depressive disorder, recurrent, severe with psychotic features: Status: Acute Code(s): F33.3 - Major depressive disorder, recurrent, severe with psychotic symptoms Assessment and Plan: José Luis is a 76 year old male who carries a dx of MDD, recurrent, severe with hx of psychosis, catatonia. He is known to [facility] for similar presentation and has received ECT with good effect in the past. No medications made on admission, as pt declined med changes. He stated he has difficulty sleeping but when offered sleep aids/ hypnotics, pt stated ?it wont do much? and ?they wont work.? Per crisis jaja, the director at pt?s SNF reported pt sees Dr. Sims in the community and there was a change to his ECT treatment a month ago, he had to stop treatment for a week because he was sick and then started it back up again about a week ago. He also had a medication change 3 weeks ago. Plan: Gave one time dose Ativan for extreme anxiety. nortriptyline 10 mg p.o. q.h.s.. ECT for Thursday. Continue Zyprexa 5 mg p.o. q.h.s.. Monitor or for worsening of mental status I spent minutes with the patient and/or on the patient floor today, greater than?50% of which was spent counseling/coordinating care. Reason for contiued inpatient stay Substantial Risk for: inability to function and rapid decompensation
[2021-08-25 21:11] VITALS: BP 164/93; PULSE 96; RESP 18; TEMP 36.8; O2SAT 94
[2021-08-25 22:09] LABS: Hematocrit 38.5 % (42.0-52.0); Hemoglobin 13.8 g/dl (14.0-18.0); Mean Corpuscular HGB Conc 35.8 g/dl (31.0-36.0); Mean Corpuscular Hemoglobin 34.1 pg (27.0-33.0); Mean Corpuscular Volume 95.1 fL (80.0-98.0); Mean Platelet Volume 8.7 fL (9.4-12.4); Platelet Count 165 X10*3/uL (160-400); Red Blood Count 4.05 X10*6/uL (4.60-5.80); Red Cell Distribution Width 13.2 % (11.0-16.0); White Blood Count 5.6 X10*3/uL (4.8-10.8)
[2021-08-25 22:32] LABS: Alanine Aminotransferase 34 U/L (0-40); Alkaline Phosphatase 121 U/L (39-117); Anion Gap 15 (12-20); Aspartate Amino Transferase 32 U/L (5-37); Bilirubin Total 1.3 mg/dL (0.0-1.0); Blood Urea Nitrogen 34 mg/dL (9-16); Calcium 9.5 mg/dL (8.4-10.2); Carbon Dioxide 24 mmol/L (22-29); Chloride 108 mmol/L (96-108); Creatinine Clr Calc Pharmacy 69.4; Estimated Glomerular Filt Rate > 60; Glucose Random 115 mg/dL (60-115); Potassium 3.6 mmol/L (3.3-5.1); Sodium 143 mmol/L (135-145); Total Protein 6.3 g/dL (6.5-8.0)
[2021-08-25 23:02] LABS: Appearance Urine CLEAR; Color Urine YELLOW; Glucose Urine UA NEG (NEG); Leukocyte Esterase Urine NEG (NEG); Nitrite Urine NEG (NEG); Specific Gravity - Urine >= 1.030 (1.005-1.025); Urine Blood NEG (NEG); Urine Ketones 5 MG/DL (NEG); Urine Protein TRACE MG/DL (NEG-TRACE)
[2021-08-26] MEDS: OLANZapine 2.5 MG TABLET 1.25 MG PO (04:18)
--- NOTE | 2021-08-26 06:49 | PC.NURSE ---
Pt. refused medications day and shift supervisor. Pt. reports he will refuse ECT. Pt. is not eating or drinking. Pt. is despondent, withdrawn, and depressed. Pt. has a flat affect. Speech is guarded and limited. Pt. reports positive SI without any plan or intent. Pt. stating he wants to or he will . VS 164/93, 96, 18, 98.3, 94%. Dr. Ramon notified. CBC, CMP and UA ordered. Pt. allowed for labwork and provided a urine sample after much prompting. Pt. was encouraged to eat and drink but only drank 2 cups of water and a few bites of a banana. Pt. remained in bed. His legs are restless. Pt. refused to get up. Around 0300 pt. got up and was repeatedly stating, I'm going to while walking from room to dining room with RN. Pt. accepted zyprexa 1.25mg prn. RN sat with pt. and reassured him until he fell asleep. Pt. was incontinent of stool x1 and was cleaned with assistance. Pt. resting quietly with eyes closed. He refused to get up for ECT. Pt. refused AM Omeprazole.
[2021-08-26] MEDS: Omeprazole 20 MG CAPSULE.DR PO (08:37)
[2021-08-26] MEDS: Cholecalciferol (Vitamin D3) 10 MCG TABLET PO (08:38)
[2021-08-26] MEDS: Docusate Sodium 100 MG CAPSULE PO ×2 (08:38→21:39)
[2021-08-26] MEDS: Apixaban 5 MG TABLET PO ×2 (08:38→21:39)
[2021-08-26] MEDS: Ferrous Sulfate 324 MG TABLET.DR PO (08:38)
[2021-08-26 08:53] VITALS: BP 112/76; PULSE 120; TEMP 37; O2SAT 96
--- NOTE | 2021-08-26 12:06 | P.EN_ITS ---
Event Note Date of Service: 08/26/21 Event Note: The patient was seen was asked to give opinion regarding continued capacity to make decisions regarding ECT treatment. The patient is severely depressed anxious and ruminating. Who was restless and somewhat agitated. There was significant thought blocking and slowed mentation. The patient could not explain why he had been hospitalized and why ECT treatment had been recommended. Eventually with much prodding the patient was able to states that it did not work. Patient was not able to take information regarding the fact that every time over the past 2 years attempts were made to discontinue ECT the patient became severely depressed and withdrawn and did eventually in each case respond to ECT. The patient could offer no alternatives and was unable to discuss any concerns that he had regarding ECT and the procedure. Case reviewed with Dr. Pantoja and previously had been reviewed with Dr. Sims The patient has an affirmed healthcare proxy there do not appear to be any grounds for changing it at this time. Dr. borrero tomorrow on a has discussed t reatment plan patient with affirmed healthcare proxy.
--- NOTE | 2021-08-26 14:30 | HO.PSYCHPN ---
Subjective Subjective Date of Service: 08/26/21 Reason For Visit: Recurrent major depressive D/O Severe Subjective Notes: Conditional Voluntary (Sign by court affirmed healthcare proxy) Interim History: The nursing staff reported the patient slept okay and he has been on his meds most of the time. He has refused medications last night. Today, the patient was scheduled for ECT but he refused to go. We discussed about consent for ECT with her daughter who is the court affirmed healthcare proxy and she agreed on that. The patient refused to go and later his ECT was canceled since he took breakfast. On interview, the patient remains dysphoric, on bed, stating that he is not doing well, confused at times, very dysphoric. Mental Status Exam Mental Status Exam Patient Appearance: Disheveled and Unkempt Patient Orientation: Person Level of Consciousness: Awake Patient Behavior: Asleep and Resistive to Care Mood Description: Depressed Affect Description: Constricted Patient Cognition Impaired: No Ability to Follow Directions: Poor Speech Pattern: Clear Delusions: Paranoid Ideation Thought Process: Distracted and Confusion Thought Content: positive for Disoriented Judgement: Poor Diagnostics Vital Signs (24Hr): Vital Signs - 24 hr 08/25/21 21:11 08/26/21 08:53 Temperature 98.3 F 98.6 F Pulse Rate 96 120 H Respiratory Rate 18 Blood Pressure 164/93 H 112/76 Pulse Oximetry 94 96 Body Mass Index 22.9 Labs Results: 08/25/21 22:04 08/25/21 22:04 Labs: Laboratory Results - last 48 hr 08/25/21 08/25/21 08/25/21 22:04 22:04 22:35 WBC 5.6 RBC 4.05 L Hgb 13.8 L Hct 38.5 L MCV 95.1 MCH 34.1 H MCHC 35.8 RDW 13.2 Plt Count 165 MPV 8.7 L Absolute Nucleated RBC 0.000 Nucleated RBC % (auto) 0.0 Sodium 143 Potassium 3.6 Chloride 108 Carbon Dioxide 24 Anion Gap 15 BUN 34 H Creatinine 0.90 Estim Creat Clear Calc 69.4 Estimated GFR > 60 Random Glucose 115 D Calcium 9.5 Total Bilirubin 1.3 H AST 32 ALT 34 Alkaline Phosphatase 121 H Total Protein 6.3 L Albumin 4.0 Urine Color YELLOW Urine Appearance CLEAR Urine pH 6.0 Ur Specific [place] >= 1.030 H Urine Protein TRACE Urine Glucose (UA) NEG Urine Ketones 5 Urine Blood NEG Urine Nitrite NEG Ur Leukocyte Esterase NEG Imaging Radiology Impressions: ITS Impressions Chest X-Ray 08/20/21 10:00 IMPRESSION: 1. Lungs grossly clear. No infiltrate or effusion. 2. Hiatal hernia, approximately 9 cm. Medications Medications Current Medications Acetaminophen (Acetaminophen 325 Mg Tablet) 650 mg PO Q6H PRN PRN Reason: Headache/Pain Mild Scale (1-3) Al Hydroxide/Mg Hydroxide (Magnesium Hydrox/Alum Hydrox 30 Ml Oral.Susp) 30 ml PO Q6H PRN PRN Reason: Heartburn/Nausea Apixaban (Apixaban 5 Mg Tablet) 5 mg PO BID [facility] Last Admin: 08/26/21 08:38 Dose: 5 mg Documented by: Atorvastatin Calcium (Atorvastatin Calcium 40 Mg Tablet) 40 mg PO BEDTIME [facility] Last Admin: 08/25/21 23:36 Dose: Not Given Documented by: Benzonatate (Benzonatate 100 Mg Capsule) 100 mg PO TID PRN PRN Reason: cough Docusate Sodium (Docusate Sodium 100 Mg Capsule) 100 mg PO BID [facility] Last Admin: 08/26/21 08:38 Dose: 100 mg Documented by: Erythromycin (Erythromycin Base 0.5% Oph Oin 1 Gm Tube) 1 cm EYE-BOTH BID [facility] Last Admin: 08/26/21 08:43 Dose: Not Given Documented by: Ferrous Sulfate (Ferrous Sulfate 324 Mg Tablet.Dr) 324 mg PO DAILY [facility] Last Admin: 08/26/21 08:38 Dose: 324 mg Documented by: Hydroxyzine HCl (Hydroxyzine Hcl 25 Mg Tablet) 25 mg PO BEDTIME PRN PRN Reason: Anxiety Last Admin: 08/25/21 05:36 Dose: 25 mg Documented by: Magnesium Hydroxide (Milk Of Magnesia 30 Ml Oral.Susp) 30 ml PO DAILY PRN PRN Reason: Constipation Nortriptyline HCl (Nortriptyline Hcl 10 Mg Capsule) 10 mg PO BEDTIME [facility] Last Admin: 08/25/21 23:37 Dose: Not Given Documented by: Olanzapine (Olanzapine 5 Mg Tablet) 5 mg PO BEDTIME [facility] Last Admin: 08/25/21 23:37 Dose: Not Given Documented by: Olanzapine (Olanzapine 2.5 Mg Tablet) 1.25 mg PO DAILY PRN PRN Reason: Anxiety Last Admin: 08/26/21 04:18 Dose: 1.25 mg Documented by: Omeprazole (Omeprazole 20 Mg Isacc.) 20 mg PO DAILY@0630 [facility] Last Admin: 08/26/21 08:37 Dose: 20 mg Documented by: Oxybutynin Chloride (Oxybutynin Chloride Er 5 Mg Tab.Er.24) 5 mg PO DAILY [facility] Last Admin: 08/26/21 08:38 Dose: 5 mg Documented by: Trazodone HCl (Trazodone Hcl 50 Mg Tablet) 50 mg PO BEDTIME [facility] Last Admin: 08/25/21 23:37 Dose: Not Given Documented by: Vitamin D (Cholecalciferol (Vitamin D3) 10 Mcg Tablet) 10 mcg PO DAILY [facility] Last Admin: 08/26/21 08:38 Dose: 10 mcg Documented by: Allergies Allergies Allergy/AdvReac Type Severity Reaction Status Date / Time No Known Allergies Allergy Verified 01/25/21 06:43 [No Known Allergies*] Assessment & Plan Assessment & Plan (1) Major depressive disorder, recurrent, severe with psychotic features: Status: Acute Code(s): F33.3 - Major depressive disorder, recurrent, severe with psychotic symptoms Assessment and Plan: José Luis is a 76 year old male who carries a dx of MDD, recurrent, severe with hx of psychosis, catatonia. He is known to [facility] for similar presentation and has received ECT with good effect in the past. No medications made on admission, as pt declined med changes. He stated he has difficulty sleeping but when offered sleep aids/ hypnotics, pt stated ?it wont do much? and ?they wont work.? Per crisis jaja, the director at pt?s SNF reported pt sees Dr. Sims in the community and there was A plan to see if ECT could be discontinued and if the patient could transition to TMS patient has a history of only responding to maintenance ECT treatments whenever this is been discontinued the patient has relapsed into a severe depression. He also had a medication change 3 weeks ago. Plan: Monitor response to medications. Monitor for safety in the milieu. Discharge on stabilization. ECT for Thursday I spent minutes with the patient and/or on the patient floor today, greater than?50% of which was spent counseling/coordinating care. Reason for contiued inpatient stay Substantial Risk for: harm to self, inability to function, rapid decompensation and med/psych decompensation
[2021-08-26 20:45] VITALS: BP 117/74; PULSE 99; RESP 16; TEMP 36.1; O2SAT 95
[2021-08-26] MEDS: OLANZapine 5 MG TABLET PO (21:39)
[2021-08-26] MEDS: Nortriptyline HCl 25 MG CAPSULE PO (21:39)
[2021-08-26] MEDS: Atorvastatin Calcium 40 MG TABLET PO (21:39)
[2021-08-26] MEDS: traZODone HCL 50 MG TABLET PO (21:39)
[2021-08-27] MEDS: Omeprazole 20 MG CAPSULE.DR PO (06:38)
[2021-08-27] MEDS: Ferrous Sulfate 324 MG TABLET.DR PO (09:33)
[2021-08-27] MEDS: Docusate Sodium 100 MG CAPSULE PO (09:33)
[2021-08-27] MEDS: Cholecalciferol (Vitamin D3) 10 MCG TABLET PO (09:33)
[2021-08-27] MEDS: Apixaban 5 MG TABLET PO (09:33)
[2021-08-27 19:00] VITALS: PULSE 118; RESP 18; TEMP 36.7; O2SAT 98
--- NOTE | 2021-08-27 20:36 | HO.PSYCHPN ---
Subjective Subjective Date of Service: 08/27/21 Reason For Visit: Recurrent major depressive D/O Severe Subjective Notes: Conditional Voluntary Healthcare Proxy: Yes Guardianship: No Interim History: Patient continues to be severely depressed despondent anxious restless at times Or patient cannot explain what he would want to do hopeless helpless despondent wishes he were Medication Compliance: Yes Attending Groups: No Review of Systems Medical Review of Systems: unchanged Mental Status Exam Mental Status Exam Patient Appearance: Disheveled and Unkempt Patient Orientation: Person Level of Consciousness: Awake Patient Behavior: Asleep and Resistive to Care Mood Description: Depressed, Nervous and Apprehensive Affect Description: Constricted, Depressed and Apprehensive Patient Cognition Impaired: No Ability to Follow Directions: Poor Speech Pattern: Clear Delusions: Paranoid Ideation Thought Process: Distracted and Confusion Thought Content: positive for Disoriented, positive for Poverty of Content and positive for Thought Blocking Depressive Symptoms: Increased Anxiety, Increased Irritability, Thoughts of /Suicide and Difficulty Concentrating Judgement: Poor Diagnostics Vital Signs (24Hr): Vital Signs - 24 hr 08/26/21 20:45 08/27/21 19:00 Temperature 96.9 F 98.0 F Pulse Rate 99 118 H Respiratory Rate 16 18 Blood Pressure 117/74 Pulse Oximetry 95 98 Body Mass Index 22.9 Labs Results: 08/25/21 22:04 08/25/21 22:04 Labs: Laboratory Results - last 48 hr 08/25/21 08/25/21 08/25/21 22:04 22:04 22:35 WBC 5.6 RBC 4.05 L Hgb 13.8 L Hct 38.5 L MCV 95.1 MCH 34.1 H MCHC 35.8 RDW 13.2 Plt Count 165 MPV 8.7 L Absolute Nucleated RBC 0.000 Nucleated RBC % (auto) 0.0 Sodium 143 Potassium 3.6 Chloride 108 Carbon Dioxide 24 Anion Gap 15 BUN 34 H Creatinine 0.90 Estim Creat Clear Calc 69.4 Estimated GFR > 60 Random Glucose 115 D Calcium 9.5 Total Bilirubin 1.3 H AST 32 ALT 34 Alkaline Phosphatase 121 H Total Protein 6.3 L Albumin 4.0 Urine Color YELLOW Urine Appearance CLEAR Urine pH 6.0 Ur Specific [place] >= 1.030 H Urine Protein TRACE Urine Glucose (UA) NEG Urine Ketones 5 Urine Blood NEG Urine Nitrite NEG Ur Leukocyte Esterase NEG Imaging Radiology Impressions: ITS Impressions Chest X-Ray 08/20/21 10:00 IMPRESSION: 1. Lungs grossly clear. No infiltrate or effusion. 2. Hiatal hernia, approximately 9 cm. Medications Medications Current Medications Acetaminophen (Acetaminophen 325 Mg Tablet) 650 mg PO Q6H PRN PRN Reason: Headache/Pain Mild Scale (1-3) Al Hydroxide/Mg Hydroxide (Magnesium Hydrox/Alum Hydrox 30 Ml Oral.Susp) 30 ml PO Q6H PRN PRN Reason: Heartburn/Nausea Apixaban (Apixaban 5 Mg Tablet) 5 mg PO BID [facility] Last Admin: 08/27/21 09:33 Dose: 5 mg Documented by: Atorvastatin Calcium (Atorvastatin Calcium 40 Mg Tablet) 40 mg PO BEDTIME [facility] Last Admin: 08/26/21 21:39 Dose: 40 mg Documented by: Benzonatate (Benzonatate 100 Mg Capsule) 100 mg PO TID PRN PRN Reason: cough Docusate Sodium (Docusate Sodium 100 Mg Capsule) 100 mg PO BID [facility] Last Admin: 08/27/21 09:33 Dose: 100 mg Documented by: Erythromycin (Erythromycin Base 0.5% Oph Oin 1 Gm Tube) 1 cm EYE-BOTH BID [facility] Last Admin: 08/27/21 09:33 Dose: Not Given Documented by: Ferrous Sulfate (Ferrous Sulfate 324 Mg Tablet.) 324 mg PO DAILY [facility] Last Admin: 08/27/21 09:33 Dose: 324 mg Documented by: Hydroxyzine HCl (Hydroxyzine Hcl 25 Mg Tablet) 25 mg PO BEDTIME PRN PRN Reason: Anxiety Last Admin: 08/25/21 05:36 Dose: 25 mg Documented by: Magnesium Hydroxide (Milk Of Magnesia 30 Ml Oral.Susp) 30 ml PO DAILY PRN PRN Reason: Constipation Nortriptyline HCl (Nortriptyline Hcl 25 Mg Capsule) 25 mg PO BEDTIME [facility] Last Admin: 08/26/21 21:39 Dose: 25 mg Documented by: Olanzapine (Olanzapine 5 Mg Tablet) 5 mg PO BEDTIME [facility] Last Admin: 08/26/21 21:39 Dose: 5 mg Documented by: Olanzapine (Olanzapine 2.5 Mg Tablet) 1.25 mg PO DAILY PRN PRN Reason: Anxiety Last Admin: 08/26/21 04:18 Dose: 1.25 mg Documented by: Omeprazole (Omeprazole 20 Mg Capsule.) 20 mg PO DAILY@0630 [facility] Last Admin: 08/27/21 06:38 Dose: 20 mg Documented by: Oxybutynin Chloride (Oxybutynin Chloride Er 5 Mg Tab.Er.24) 5 mg PO DAILY [facility] Last Admin: 08/27/21 09:33 Dose: 5 mg Documented by: Trazodone HCl (Trazodone Hcl 50 Mg Tablet) 50 mg PO BEDTIME [facility] Last Admin: 08/26/21 21:39 Dose: 50 mg Documented by: Vitamin D (Cholecalciferol (Vitamin D3) 10 Mcg Tablet) 10 mcg PO DAILY [facility] Last Admin: 08/27/21 09:33 Dose: 10 mcg Documented by: Allergies Allergies Allergy/AdvReac Type Severity Reaction Status Date / Time No Known Allergies Allergy Verified 01/25/21 06:43 [No Known Allergies*] Assessment & Plan Assessment & Plan (1) Major depressive disorder, recurrent, severe with psychotic features: Status: Acute Code(s): F33.3 - Major depressive disorder, recurrent, severe with psychotic symptoms Assessment and Plan: José Luis is a 76 year old male who carries a dx of MDD, recurrent, severe with hx of psychosis, catatonia. He is known to [facility] for similar presentation and has received ECT with good effect in the past. Case reviewed with Dr. Sims he does not feel there is any different option at this time besides ECT. We did discuss restate belies in the patient and then trying TMS risk ketamine. Case reviewed with patient's healthcare proxy she clearly feels that patient has responded well to ECT generally understands limited options at this time feels that patient not able to make decision at this time Plan: Monitor response to medications. Monitor for safety in the milieu. Discharge on stabilization. ECT for tomm I spent minutes with the patient and/or on the patient floor today, greater than?50% of which was spent counseling/coordinating care. Reason for contiued inpatient stay Substantial Risk for: harm to self, inability to function and rapid decompensation
[2021-08-28] VITALS (14 sets, daily range): BP systolic 96–148; BP diastolic 63–94; PULSE 93–125; RESP 16–22; TEMP 36.3–37.1; O2SAT 91–96
--- NOTE | 2021-08-28 07:30 | MHC.SHP ---
Pre-Procedural Eval Section A Date of Service: 08/28/21 The patient is an INPATIENT: Yes Changes since office visit: Yes Changes in Medication and Yes Patient answered all questions; No Cold of Flu in the past 2 weeks and No New Medical Problems The History & Physical has been completed within 30 days and I have reviewed it.: Yes Section B Chief Complaint: Recurrent major depressive D/O Severe Allergies: Allergies Allergy/AdvReac Type Severity Reaction Status Date / Time No Known Allergies Allergy Verified 01/25/21 06:43 [No Known Allergies*] Plan I have reviewed the history and physical and performed a pertinent physical examination on my patient. No changes have occurred unless specified.
--- NOTE | 2021-08-28 07:31 | HO.ECTPROC ---
ECT Procedure Note Diagnosis/Treatment Date of Service: 08/28/21 Diagnosis: Major Depressive Disorder Current Treatment Number: 1 Treatment: Series Interval Clinical Notes: pt with severe depression precatatonic was cooperative with ect thought blocking catastrphic thinking ECT Settings Device: THYMATRON DGx Electrode Placement: Right Unilateral Program/Pulse Width: 0.50 Energy Percent: 100 Seizure Duration By EEG (in seconds): 44 Ancillary Medications Analgesics: Torodol - Pre ECT Anti-emetics: Zofran - Pre ECT Miscillaneous Medications: Propofol (30 mg) Airway Management Airway Management: Bag Mask Ventilation Treatment Recommendations No Changes Recommended: No change Notes: case reviewed withp dr estrada has always shown marked improvement with ect now on nortrip Pt Tolerated Procedure w/o Issue: Yes
--- NOTE | 2021-08-28 08:45 | P.CONAN_ITS ---
[facility] Active Problems Active Problems: All Active Problems (Updated 08/21/21 @ 09:05 by Leila Oneill APRN) Major depressive disorder, recurrent, severe with psychotic features (Acute) Depression (Acute) Physical deconditioning (Acute) Preoperative cardiovascular examination (Acute) Anemia (Acute) GERD (gastroesophageal reflux disease) (Acute) Past Medical History Medical History COVID-19 vaccine administered Dementia Depression Diverticulitis of colon with perforation GERD (gastroesophageal reflux disease) History of electroconvulsive therapy HTN (hypertension) Hyperlipidemia Major depressive disorder, recurrent, severe with psychotic features Pulmonary embolism SVT (supraventricular tachycardia) Functional capacity: uses cane/walker Family History Family History Brother Blood clot in vein Other No history of cardiac disorder Family history of problems with anesthesia: No Surgical History Surgical History H/O colonoscopy H/O hernia repair History of colostomy reversal History of esophagogastroduodenoscopy (EGD) Status post Paula's procedure History of Problems with Anesthesia: No Social History Social History Household Members: Other Housing: Assisted Living Facility Are you a primary college and career counselor to a significant other at home: No Do you presently have visiting nurse or other home services: No Alcohol intake: former Patient Tobacco Use Status: Never used Tobacco Second Hand Smoke Exposure: No Use of substances other than those prescribed or required for medical reasons: No Currently Displaying Signs/Symptoms of Drug Intoxication Withdrawal: No Have you been hit, kicked, punched, or otherwise hurt by someone within the past year? If so, by whom?: No Do you feel safe in your current relationship?: No Current Relationship Is there a partner from a previous relationship who is making you feel unsafe now?: No Are you made to feel afraid or neglected: No Spiritual Healthcare Practices: refusing to respond Jew Healthcare Practices: refusing to respond Cultural Healthcare Practices: refusing to respond Are you DNR?: No Advance Directives: Yes Advance Directives Information Provided: No Advance Directives on File: Yes Advance Directives Date on File: 07/27/20 Do you have thoughts of harming others: None Do you have a plan to hurt others: No Plan Recently lost weight without trying: Unsure Poor oral hygiene: Yes service: Yes Current occupational status: retired Sexual orientation: Straight/Heterosexual Meds Allergies Allergy/AdvReac Type Severity Reaction Status Date / Time No Known Allergies Allergy Verified 01/25/21 06:43 [No Known Allergies*] Active Medications: Current Medications Acetaminophen (Acetaminophen 325 Mg Tablet) 650 mg PO Q6H PRN PRN Reason: Headache/Pain Mild Scale (1-3) Al Hydroxide/Mg Hydroxide (Magnesium Hydrox/Alum Hydrox 30 Ml Oral.Susp) 30 ml PO Q6H PRN PRN Reason: Heartburn/Nausea Apixaban (Apixaban 5 Mg Tablet) 5 mg PO BID [facility] Last Admin: 08/27/21 21:23 Dose: Not Given Documented by: Atorvastatin Calcium (Atorvastatin Calcium 40 Mg Tablet) 40 mg PO BEDTIME [facility] Last Admin: 08/27/21 21:23 Dose: Not Given Documented by: Benzonatate (Benzonatate 100 Mg Capsule) 100 mg PO TID PRN PRN Reason: cough Docusate Sodium (Docusate Sodium 100 Mg Capsule) 100 mg PO BID [facility] Last Admin: 08/27/21 21:23 Dose: Not Given Documented by: Erythromycin (Erythromycin Base 0.5% Oph Oin 1 Gm Tube) 1 cm EYE-BOTH BID [facility] Last Admin: 08/27/21 21:23 Dose: Not Given Documented by: Ferrous Sulfate (Ferrous Sulfate 324 Mg Tablet.) 324 mg PO DAILY [facility] Last Admin: 08/27/21 09:33 Dose: 324 mg Documented by: Hydroxyzine HCl (Hydroxyzine Hcl 25 Mg Tablet) 25 mg PO BEDTIME PRN PRN Reason: Anxiety Last Admin: 08/25/21 05:36 Dose: 25 mg Documented by: Magnesium Hydroxide (Milk Of Magnesia 30 Ml Oral.Susp) 30 ml PO DAILY PRN PRN Reason: Constipation Nortriptyline HCl (Nortriptyline Hcl 25 Mg Capsule) 25 mg PO BEDTIME [facility] Last Admin: 08/27/21 21:23 Dose: Not Given Documented by: Olanzapine (Olanzapine 5 Mg Tablet) 5 mg PO BEDTIME [facility] Last Admin: 08/27/21 21:24 Dose: Not Given Documented by: Olanzapine (Olanzapine 2.5 Mg Tablet) 1.25 mg PO DAILY PRN PRN Reason: Anxiety Last Admin: 08/26/21 04:18 Dose: 1.25 mg Documented by: Omeprazole (Omeprazole 20 Mg Capsule.) 20 mg PO DAILY@0630 [facility] Last Admin: 08/27/21 06:38 Dose: 20 mg Documented by: Oxybutynin Chloride (Oxybutynin Chloride Er 5 Mg Tab.Er.24) 5 mg PO DAILY [facility] Last Admin: 08/27/21 09:33 Dose: 5 mg Documented by: Trazodone HCl (Trazodone Hcl 50 Mg Tablet) 50 mg PO BEDTIME [facility] Last Admin: 08/27/21 21:24 Dose: Not Given Documented by: Vitamin D (Cholecalciferol (Vitamin D3) 10 Mcg Tablet) 10 mcg PO DAILY [facility] Last Admin: 08/27/21 09:33 Dose: 10 mcg Documented by: Home Medications Medication Instructions Recorded Confirmed Last Taken Type atorvastatin 40 mg tablet 1 tab PO BEDTIME 08/18/21 08/18/21 Unknown History benztropine 1 mg tablet 1 tab PO BID 08/18/21 08/18/21 Unknown History finasteride 5 mg tablet 1 tab PO DAILY 08/18/21 08/18/21 Unknown History fluoxetine 10 mg capsule 1 cap PO DAILY 08/18/21 08/18/21 Unknown History olanzapine 10 mg tablet 5 mg PO BEDTIME 08/18/21 08/18/21 Unknown History olanzapine 2.5 mg tablet 0.5 tab PO DAILY PRN 08/18/21 08/18/21 Unknown History omeprazole 20 mg capsule,delayed 1 cap PO DAILY 08/18/21 08/18/21 Unknown History release propranolol 10 mg tablet 1 tab PO TID PRN 08/18/21 08/18/21 Unknown History trazodone 50 mg tablet 50 mg PO BEDTIME 08/18/21 08/18/21 Unknown History Exam Exam Date and Time: August 28, 2021 0845 Height,Weight and Vital Signs: Height 5 ft 10 in Weight 72.575 kg Last Vital Signs Temp 98.7 F 08/28/21 08:05 Pulse 96 08/28/21 08:35 Resp 21 H 08/28/21 08:35 BP 99/65 08/28/21 08:35 Pulse Ox 96 08/28/21 08:35 Pertinent Lab Results Pertinent Lab Results: Laboratory Tests 08/17/21 08/17/21 08/17/21 20:30 20:31 20:31 WBC RBC Hgb Hct MCV MCH MCHC RDW Plt Count MPV Immature Gran % (Auto) Neut % (Auto) Lymph % (Auto) [place] % (Auto) Eos % (Auto) Baso % (Auto) Lymph # (Auto) [place] # (Auto) Eos # (Auto) Baso # (Auto) Abs Immat Gran (auto) Absolute Neuts (auto) Absolute Nucleated RBC Nucleated RBC % (auto) Sodium Potassium Chloride Carbon Dioxide Anion Gap BUN Creatinine Estim Creat Clear Calc Estimated GFR Random Glucose Estimat Average Glucose Hemoglobin A1c % Calcium Total Bilirubin AST ALT Alkaline Phosphatase Total Protein Albumin Triglycerides Cholesterol LDL Cholesterol, Calc HDL Cholesterol Vitamin B12 25-OH Vitamin D Total Folate TSH Urine Color YELLOW Urine Appearance HAZY Urine pH 6.0 Ur Specific Barry 1.025 Urine Protein NEG Urine Glucose (UA) NEG Urine Ketones NEG Urine Blood NEG Urine Nitrite NEG Ur Leukocyte Esterase NEG Urine Opiates Screen Not Detected Urine Fentanyl Screen POSITIVE H Ur Barbiturates Screen Not Detected Ur Phencyclidine Scrn Not Detected Ur Amphetamines Screen Not Detected U Benzodiazepines Scrn Not Detected Urine Cocaine Screen Not Detected U Marijuana (THC) Screen Not Detected Ethyl Alcohol COVID-19 ([facility]) Negative COVID-19 Clin Com See Note 08/17/21 08/17/21 08/17/21 21:16 21:16 21:17 WBC 5.4 RBC 4.22 L Hgb 14.0 Hct 40.9 L MCV 96.9 MCH 33.2 H MCHC 34.2 RDW 13.0 Plt Count 160 MPV 8.7 L Immature Gran % (Auto) 0.2 Neut % (Auto) 64.6 Lymph % (Auto) 21.5 [place] % (Auto) 10.4 Eos % (Auto) 3.1 Baso % (Auto) 0.2 Lymph # (Auto) 1.2 [place] # (Auto) 0.6 Eos # (Auto) 0.2 Baso # (Auto) 0.0 Abs Immat Gran (auto) 0.01 Absolute Neuts (auto) 3.5 Absolute Nucleated RBC 0.000 Nucleated RBC % (auto) 0.0 Sodium 143 Potassium 4.0 Chloride 108 Carbon Dioxide 27 Anion Gap 12 BUN 21 H Creatinine 1.03 Estim Creat Clear Calc 60.6 Estimated GFR > 60 Random Glucose 169 H Estimat Average Glucose Hemoglobin A1c % Calcium 9.7 D Total Bilirubin AST ALT Alkaline Phosphatase Total Protein Albumin Triglycerides Cholesterol LDL Cholesterol, Calc HDL Cholesterol Vitamin B12 25-OH Vitamin D Total Folate TSH Urine Color Urine Appearance Urine pH Ur Specific Barry Urine Protein Urine Glucose (UA) Urine Ketones Urine Blood Urine Nitrite Ur Leukocyte Esterase Urine Opiates Screen Urine Fentanyl Screen Ur Barbiturates Screen Ur Phencyclidine Scrn Ur Amphetamines Screen U Benzodiazepines Scrn Urine Cocaine Screen U Marijuana (THC) Screen Ethyl Alcohol < 10 COVID-19 ([facility]) COVID-19 [facility] Heart Valve Com 08/19/21 08/20/21 08/20/21 09:11 08:25 08:25 WBC RBC Hgb Hct MCV MCH MCHC RDW Plt Count MPV Immature Gran % (Auto) Neut % (Auto) Lymph % (Auto) [place] % (Auto) Eos % (Auto) Baso % (Auto) Lymph # (Auto) [place] # (Auto) Eos # (Auto) Baso # (Auto) Abs Immat Gran (auto) Absolute Neuts (auto) Absolute Nucleated RBC Nucleated RBC % (auto) Sodium 140 Potassium 4.1 Chloride 106 Carbon Dioxide 19 L Anion Gap 19 BUN 30 H Creatinine 0.91 Estim Creat Clear Calc 68.6 Estimated GFR > 60 Random Glucose 84 D Estimat Average Glucose 120 Hemoglobin A1c % 5.8 Calcium 9.4 Total Bilirubin 1.4 H AST 23 ALT 22 Alkaline Phosphatase 124 H Total Protein 6.9 Albumin 4.3 Triglycerides 118 Cholesterol 153 LDL Cholesterol, Calc 90 HDL Cholesterol 40 Vitamin B12 25-OH Vitamin D Total 24.8 Folate TSH 0.60 Urine Color Urine Appearance Urine pH Ur Specific Barry Urine Protein Urine Glucose (UA) Urine Ketones Urine Blood Urine Nitrite Ur Leukocyte Esterase Urine Opiates Screen Urine Fentanyl Screen Ur Barbiturates Screen Ur Phencyclidine Scrn Ur Amphetamines Screen U Benzodiazepines Scrn Urine Cocaine Screen U Marijuana (THC) Screen Ethyl Alcohol COVID-19 ([facility]) Negative COVID-19 Colibri Heart Valve Com See Note 08/20/21 08/25/21 08/25/21 08:25 22:04 22:04 WBC 5.6 RBC 4.05 L Hgb 13.8 L Hct 38.5 L MCV 95.1 MCH 34.1 H MCHC 35.8 RDW 13.2 Plt Count 165 MPV 8.7 L Immature Gran % (Auto) Neut % (Auto) Lymph % (Auto) [place] % (Auto) Eos % (Auto) Baso % (Auto) Lymph # (Auto) [place] # (Auto) Eos # (Auto) Baso # (Auto) Abs Immat Gran (auto) Absolute Neuts (auto) Absolute Nucleated RBC 0.000 Nucleated RBC % (auto) 0.0 Sodium 143 Potassium 3.6 Chloride 108 Carbon Dioxide 24 Anion Gap 15 BUN 34 H Creatinine 0.90 Estim Creat Clear Calc 69.4 Estimated GFR > 60 Random Glucose 115 D Estimat Average Glucose Hemoglobin A1c % Calcium 9.5 Total Bilirubin 1.3 H AST 32 ALT 34 Alkaline Phosphatase 121 H Total Protein 6.3 L Albumin 4.0 Triglycerides Cholesterol LDL Cholesterol, Calc HDL Cholesterol Vitamin B12 668 25-OH Vitamin D Total Folate 11.8 TSH Urine Color Urine Appearance Urine pH Ur Specific Barry Urine Protein Urine Glucose (UA) Urine Ketones Urine Blood Urine Nitrite Ur Leukocyte Esterase Urine Opiates Screen Urine Fentanyl Screen Ur Barbiturates Screen Ur Phencyclidine Scrn Ur Amphetamines Screen U Benzodiazepines Scrn Urine Cocaine Screen U Marijuana (THC) Screen Ethyl Alcohol COVID-19 ([facility]) COVID-19 Clin Com 08/25/21 22:35 WBC RBC Hgb Hct MCV MCH MCHC RDW Plt Count MPV Immature Gran % (Auto) Neut % (Auto) Lymph % (Auto) [place] % (Auto) Eos % (Auto) Baso % (Auto) Lymph # (Auto) [place] # (Auto) Eos # (Auto) Baso # (Auto) Abs Immat Gran (auto) Absolute Neuts (auto) Absolute Nucleated RBC Nucleated RBC % (auto) Sodium Potassium Chloride Carbon Dioxide Anion Gap BUN Creatinine Estim Creat Clear Calc Estimated GFR Random Glucose Estimat Average Glucose Hemoglobin A1c % Calcium Total Bilirubin AST ALT Alkaline Phosphatase Total Protein Albumin Triglycerides Cholesterol LDL Cholesterol, Calc HDL Cholesterol Vitamin B12 25-OH Vitamin D Total Folate TSH Urine Color YELLOW Urine Appearance CLEAR Urine pH 6.0 Ur Specific Barry >= 1.030 H Urine Protein TRACE Urine Glucose (UA) NEG Urine Ketones 5 Urine Blood NEG Urine Nitrite NEG Ur Leukocyte Esterase NEG Urine Opiates Screen Urine Fentanyl Screen Ur Barbiturates Screen Ur Phencyclidine Scrn Ur Amphetamines Screen U Benzodiazepines Scrn Urine Cocaine Screen U Marijuana (THC) Screen Ethyl Alcohol COVID-19 ([facility]) COVID-19 Clin Com Airway Mallampati Class: III TM Dist: >3cm Neck ROM: Full Heart: RRR Lungs: CTA Assessment and Plan Final Anesthetic Review Family History of Problems with Anesthesia: No History of Problems with Anesthesia: No ASA Class: III Final Preanesthetic Review: No Changes in Pt Med Stat Patient Risk: Intermediate Procedure Risk: Low Anesthetic Plan Anesthetic Plan: GA Disposition: Standard PACU
--- NOTE | 2021-08-28 08:48 | HO.POSTANES ---
Post Anesthesia Evaluation Post Anesthesia Evaluation Vital Signs: Vital Signs Temp Pulse Resp BP Pulse Ox 08/28/21 08:35 96 21 H 99/65 96 08/28/21 08:20 99 22 H 101/67 96 08/28/21 08:15 97 20 103/68 96 08/28/21 08:10 98 20 121/69 96 08/28/21 08:05 98.7 F 105 H 18 143/86 H 96 08/28/21 06:31 98.8 F 117 H 22 H 139/91 H 95 08/28/21 05:15 98.0 F 108 H 18 134/80 95 Anesthesia: General Mental Status: Awake Pain Control: Satisfactory Nausea/Vomiting: None Hydration: Adequate Anesthesia-Related Issues: No Anes. Related Issues
--- NOTE | 2021-08-28 08:57 | P.PNPSI_ITS ---
Subjective Subjective Date of Service: 08/28/21 Reason For Visit: Recurrent major depressive D/O Severe Mental Status Exam Mental Status Exam Narrative: involuntary movement Patient Appearance: Disheveled and Unkempt Patient Orientation: Person Level of Consciousness: Awake Patient Behavior: Asleep and Resistive to Care Mood Description: Depressed, Nervous and Apprehensive Affect Description: Constricted, Depressed and Apprehensive Patient Cognition Impaired: No Ability to Follow Directions: Poor Speech Pattern: Soft-Spoken and Mumbled Memory Description: Episodic Impaired Hallucinations: None Delusions: Paranoid Ideation Thought Process: Distracted and Confusion Thought Content: positive for Disoriented, positive for Poverty of Content and positive for Thought Blocking Depressive Symptoms: Increased Anxiety, Increased Irritability, Thoughts of /Suicide and Difficulty Concentrating Judgement: Poor Diagnostics Vital Signs (24Hr): Vital Signs - 24 hr 08/27/21 19:00 08/28/21 05:15 08/28/21 06:31 Temperature 98.0 F 98.0 F 98.8 F Pulse Rate 118 H 108 H 117 H Respiratory Rate 18 18 22 H Blood Pressure 134/80 139/91 H Pulse Oximetry 98 95 95 08/28/21 08:05 08/28/21 08:10 08/28/21 08:15 Temperature 98.7 F Pulse Rate 105 H 98 97 Respiratory Rate 18 20 20 Blood Pressure 143/86 H 121/69 103/68 Pulse Oximetry 96 96 96 08/28/21 08:20 08/28/21 08:35 08/28/21 08:50 Temperature Pulse Rate 99 96 94 Respiratory Rate 22 H 21 H 16 Blood Pressure 101/67 99/65 96/64 Pulse Oximetry 96 96 95 Body Mass Index 22.9 Labs Results: 08/25/21 22:04 08/25/21 22:04 Imaging Radiology Impressions: ITS Impressions Chest X-Ray 08/20/21 10:00 IMPRESSION: 1. Lungs grossly clear. No infiltrate or effusion. 2. Hiatal hernia, approximately 9 cm. Medications Medications Current Medications Acetaminophen (Acetaminophen 325 Mg Tablet) 650 mg PO Q6H PRN PRN Reason: Headache/Pain Mild Scale (1-3) Al Hydroxide/Mg Hydroxide (Magnesium Hydrox/Alum Hydrox 30 Ml Oral.Susp) 30 ml PO Q6H PRN PRN Reason: Heartburn/Nausea Apixaban (Apixaban 5 Mg Tablet) 5 mg PO BID [facility] Last Admin: 08/27/21 21:23 Dose: Not Given Documented by: Atorvastatin Calcium (Atorvastatin Calcium 40 Mg Tablet) 40 mg PO BEDTIME [facility] Last Admin: 08/27/21 21:23 Dose: Not Given Documented by: Benzonatate (Benzonatate 100 Mg Capsule) 100 mg PO TID PRN PRN Reason: cough Docusate Sodium (Docusate Sodium 100 Mg Capsule) 100 mg PO BID [facility] Last Admin: 08/27/21 21:23 Dose: Not Given Documented by: Erythromycin (Erythromycin Base 0.5% Oph Oin 1 Gm Tube) 1 cm EYE-BOTH BID [facility] Last Admin: 08/27/21 21:23 Dose: Not Given Documented by: Ferrous Sulfate (Ferrous Sulfate 324 Mg Tablet.) 324 mg PO DAILY [facility] Last Admin: 08/27/21 09:33 Dose: 324 mg Documented by: Hydroxyzine HCl (Hydroxyzine Hcl 25 Mg Tablet) 25 mg PO BEDTIME PRN PRN Reason: Anxiety Last Admin: 08/25/21 05:36 Dose: 25 mg Documented by: Magnesium Hydroxide (Milk Of Magnesia 30 Ml Oral.Susp) 30 ml PO DAILY PRN PRN Reason: Constipation Nortriptyline HCl (Nortriptyline Hcl 25 Mg Capsule) 25 mg PO BEDTIME [facility] Last Admin: 08/27/21 21:23 Dose: Not Given Documented by: Olanzapine (Olanzapine 5 Mg Tablet) 5 mg PO BEDTIME [facility] Last Admin: 08/27/21 21:24 Dose: Not Given Documented by: Olanzapine (Olanzapine 2.5 Mg Tablet) 1.25 mg PO DAILY PRN PRN Reason: Anxiety Last Admin: 08/26/21 04:18 Dose: 1.25 mg Documented by: Omeprazole (Omeprazole 20 Mg Capsule.) 20 mg PO DAILY@0630 [facility] Last Admin: 08/27/21 06:38 Dose: 20 mg Documented by: Oxybutynin Chloride (Oxybutynin Chloride Er 5 Mg Tab.Er.24) 5 mg PO DAILY [facility] Last Admin: 08/27/21 09:33 Dose: 5 mg Documented by: Trazodone HCl (Trazodone Hcl 50 Mg Tablet) 50 mg PO BEDTIME [facility] Last Admin: 08/27/21 21:24 Dose: Not Given Documented by: Vitamin D (Cholecalciferol (Vitamin D3) 10 Mcg Tablet) 10 mcg PO DAILY [facility] Last Admin: 08/27/21 09:33 Dose: 10 mcg Documented by: Allergies Allergies Allergy/AdvReac Type Severity Reaction Status Date / Time No Known Allergies Allergy Verified 01/25/21 06:43 [No Known Allergies*] Assessment & Plan Assessment & Plan (1) Major depressive disorder, recurrent, severe with psychotic features: Status: Acute Code(s): F33.3 - Major depressive disorder, recurrent, severe with psychotic symptoms Assessment and Plan: José Luis is a 76 year old male who carries a dx of MDD, recurrent, severe with hx of psychosis, catatonia. He is known to [facility] for similar presentation and has received ECT with good effect in the past. Case reviewed with Dr. Sims he does not feel there is any different option at this time besides ECT. We did discuss restate belies in the patient and then trying TMS risk ketamine. Case reviewed with patient's healthcare proxy she clearly feels that patient has responded well to ECT generally understands limited options at this time feels that patient not able to make decision at this time Plan: Monitor response to medications. Monitor for safety in the milieu. Discharge on stabilization. ECT number 1 completed I spent __35____ minutes with the patient and/or on the patient floor today, greater than?50% of which was spent counseling/coordinating care. Reason for contiued inpatient stay Substantial Risk for: harm to self, inability to function, rapid decompensation and med/psych decompensation
--- NOTE | 2021-08-28 09:48 | PC.NURSE ---
Patient is back from ECT . Patient is alert., Pleasant , oriented to person and place. VT : TA :99/63. Pls: 93. Spo2: 96. Temp: 97.9. .Reported feeling better and asking for something to eat. notified.
--- NOTE | 2021-08-28 10:03 | MHC.CLN ---
F/U PATIENT WITH VARIABLE INTAKE. RECOMMEND WHEN DIET RESUMES, START ENSURE BID TO PROVIDE ADDITIONAL 700 KCAL AND 26 G PROTEIN.
[2021-08-28] MEDS: Cholecalciferol (Vitamin D3) 10 MCG TABLET PO (10:11)
[2021-08-28] MEDS: Docusate Sodium 100 MG CAPSULE PO (10:11)
[2021-08-28] MEDS: Apixaban 5 MG TABLET PO (10:12)
[2021-08-28] MEDS: Omeprazole 20 MG CAPSULE.DR PO (10:12)
[2021-08-28] MEDS: Ferrous Sulfate 324 MG TABLET.DR PO (10:12)
--- NOTE | 2021-08-28 13:48 | P.PNPSI_ITS ---
Subjective Subjective Date of Service: 08/28/21 Reason For Visit: Recurrent major depressive D/O Severe Subjective Notes: Conditional Voluntary Interim History: The nursing staff reported that after the ACT the patient was a little more awake and alert. The parenchyma reported that the patient walking up after ECT and he was a little more active. Today at 13:30 the patient fell, he was not on one-to-one observation and he has a laceration on his left eye. No changes of mental status at this moment. He reminds uncooperative and a little restless. A consultation with hospitalist was order CT scan head was ordered for stat. Mental Status Exam Mental Status Exam Patient Appearance: Disheveled and Unkempt Patient Orientation: Person Level of Consciousness: Disoriented and Restless Patient Behavior: Suspicious and Avoidant Mood Description: Blunted Affect Description: Flat Patient Cognition Impaired: Yes Ability to Follow Directions: Poor Speech Pattern: No Speech Hallucinations: Auditory Delusions: Paranoid Ideation Thought Process: Distracted and Confusion Thought Content: positive for Poverty of Content Judgement: Poor Diagnostics Vital Signs (24Hr): Vital Signs - 24 hr 08/27/21 19:00 08/28/21 05:15 08/28/21 06:31 Temperature 98.0 F 98.0 F 98.8 F Pulse Rate 118 H 108 H 117 H Respiratory Rate 18 18 22 H Blood Pressure 134/80 139/91 H Pulse Oximetry 98 95 95 08/28/21 08:05 08/28/21 08:10 08/28/21 08:15 Temperature 98.7 F Pulse Rate 105 H 98 97 Respiratory Rate 18 20 20 Blood Pressure 143/86 H 121/69 103/68 Pulse Oximetry 96 96 96 08/28/21 08:20 08/28/21 08:35 08/28/21 08:50 Temperature Pulse Rate 99 96 94 Respiratory Rate 22 H 21 H 16 Blood Pressure 101/67 99/65 96/64 Pulse Oximetry 96 96 95 08/28/21 09:05 08/28/21 09:10 08/28/21 10:00 Temperature 97.4 F 97.9 F 97.9 F Pulse Rate 93 93 93 Respiratory Rate 16 Blood Pressure 106/70 99/63 99/63 Pulse Oximetry 95 96 96 Body Mass Index 22.9 Labs Results: 08/25/21 22:04 08/25/21 22:04 Imaging Radiology Impressions: ITS Impressions Chest X-Ray 08/20/21 10:00 IMPRESSION: 1. Lungs grossly clear. No infiltrate or effusion. 2. Hiatal hernia, approximately 9 cm. Medications Medications Current Medications Acetaminophen (Acetaminophen 325 Mg Tablet) 650 mg PO Q6H PRN PRN Reason: Headache/Pain Mild Scale (1-3) Al Hydroxide/Mg Hydroxide (Magnesium Hydrox/Alum Hydrox 30 Ml Oral.Susp) 30 ml PO Q6H PRN PRN Reason: Heartburn/Nausea Apixaban (Apixaban 5 Mg Tablet) 5 mg PO BID [facility] Last Admin: 08/28/21 10:12 Dose: 5 mg Documented by: Atorvastatin Calcium (Atorvastatin Calcium 40 Mg Tablet) 40 mg PO BEDTIME [facility] Last Admin: 08/27/21 21:23 Dose: Not Given Documented by: Benzonatate (Benzonatate 100 Mg Capsule) 100 mg PO TID PRN PRN Reason: cough Docusate Sodium (Docusate Sodium 100 Mg Capsule) 100 mg PO BID [facility] Last Admin: 08/28/21 10:11 Dose: 100 mg Documented by: Erythromycin (Erythromycin Base 0.5% Oph Oin 1 Gm Tube) 1 cm EYE-BOTH BID [facility] Last Admin: 08/28/21 10:16 Dose: Not Given Documented by: Ferrous Sulfate (Ferrous Sulfate 324 Mg Tablet.) 324 mg PO DAILY [facility] Last Admin: 08/28/21 10:12 Dose: 324 mg Documented by: Hydroxyzine HCl (Hydroxyzine Hcl 25 Mg Tablet) 25 mg PO BEDTIME PRN PRN Reason: Anxiety Last Admin: 08/25/21 05:36 Dose: 25 mg Documented by: Magnesium Hydroxide (Milk Of Magnesia 30 Ml Oral.Susp) 30 ml PO DAILY PRN PRN Reason: Constipation Nortriptyline HCl (Nortriptyline Hcl 25 Mg Capsule) 25 mg PO BEDTIME [facility] Last Admin: 08/27/21 21:23 Dose: Not Given Documented by: Olanzapine (Olanzapine 5 Mg Tablet) 5 mg PO BEDTIME [facility] Last Admin: 08/27/21 21:24 Dose: Not Given Documented by: Olanzapine (Olanzapine 2.5 Mg Tablet) 1.25 mg PO DAILY PRN PRN Reason: Anxiety Last Admin: 08/26/21 04:18 Dose: 1.25 mg Documented by: Omeprazole (Omeprazole 20 Mg Capsule.) 20 mg PO DAILY@0630 [facility] Last Admin: 08/28/21 10:12 Dose: 20 mg Documented by: Oxybutynin Chloride (Oxybutynin Chloride Er 5 Mg Tab.Er.24) 5 mg PO DAILY [facility] Last Admin: 08/28/21 10:11 Dose: 5 mg Documented by: Trazodone HCl (Trazodone Hcl 50 Mg Tablet) 50 mg PO BEDTIME [facility] Last Admin: 08/27/21 21:24 Dose: Not Given Documented by: Vitamin D (Cholecalciferol (Vitamin D3) 10 Mcg Tablet) 10 mcg PO DAILY [facility] Last Admin: 08/28/21 10:11 Dose: 10 mcg Documented by: Allergies Allergies Allergy/AdvReac Type Severity Reaction Status Date / Time No Known Allergies Allergy Verified 01/25/21 06:43 [No Known Allergies*] Assessment & Plan Assessment & Plan (1) Major depressive disorder, recurrent, severe with psychotic features: Status: Acute Code(s): F33.3 - Major depressive disorder, recurrent, severe with psychotic symptoms Assessment and Plan: José Luis is a 76 year old male who carries a dx of MDD, recurrent, severe with hx of psychosis, catatonia. He is known to [facility] for similar presentation and has received ECT with good effect in the past. Case reviewed with Dr. Sims he does not feel there is any different option at this time besides ECT. We did discuss restate belies in the patient and then trying TMS risk ketamine. Case reviewed with patient's healthcare proxy she clearly feels that patient has responded well to ECT generally understands l imited options at this time feels that patient not able to make decision at this time The patient fell at 13:30 on Thursday. There is no changes in his mental status but he has a laceration on his left eye. We will order CT scan head and hospitalist consult. We also will place him on one-to-one. Plan: Monitor response to medications. Monitor for safety in the milieu. Discharge on stabilization. ECT number 1 completed I spent minutes with the patient and/or on the patient floor today, greater than?50% of which was spent counseling/coordinating care. Reason for contiued inpatient stay Substantial Risk for: harm to self, inability to function, rapid decompensation and med/psych decompensation
--- NOTE | 2021-08-28 13:54 | PC.NURSE ---
Patient was very agitated around 13h10 today after taking a shower. I was in the patient room making his bed when the contact called me to let me know that the patient fell while he did want to walk. When I got there the patient was on the floor tried to get up. The contact reported the patient hit his head from the wall. After inspection and Physical examination I found the patient is alert, oriented to time and place, with a small abrasion on the left orbital area.VT . TA : 97/68 Temp: 98.2 Pls : 124 Spo2 : 91. HS. LS. BS not listen to . Patient declined complete assessment. notified. Will continue to monitor , and 1 initiate.
--- NOTE | 2021-08-28 18:40 | P.EN_ITS ---
Event Note Date of Service: 08/28/21 Event Note: I saw patient following a fall, patient had ECT earlier and was n oted by staff to be walking down the garcia and was becoming unsteady, yet attempting to walking faster and falling forward and sustained a small above eye brow, when I saw him, he had a constant sitter, he was cooperative with my evaluation. He denies headache, neck pain, he was able to move all extremities without difficulty or pain, neuro exam was unremarkable, no hip pain with movement. I review his vital to be unremarkable at that time, other than puse being a bit high but this is not unsual for him. Psych MD had requested a head CT reviewed later to show no acute finding. Patient likely suffered mechanical fall, post sedation from ECT. Recommend close observation
--- NOTE | 2021-08-28 23:42 | HO.ECTPROC ---
ECT Procedure Note Diagnosis/Treatment Date of Service: 08/28/21 Diagnosis: Major Depressive Disorder and Catatonia Current Treatment Number: 1 Treatment: Series Interval Clinical Notes: pt ECT Settings Device: THYMATRON DGx
[2021-08-29 06:00] VITALS: BP 148/94; PULSE 125; TEMP 36.6; O2SAT 96
[2021-08-29] MEDS: OLANZapine 2.5 MG TABLET 1.25 MG PO (08:29)
[2021-08-29] MEDS: Omeprazole 20 MG CAPSULE.DR PO (08:29)
[2021-08-29] MEDS: Docusate Sodium 100 MG CAPSULE PO (08:29)
[2021-08-29] MEDS: Ferrous Sulfate 324 MG TABLET.DR PO (08:30)
[2021-08-29] MEDS: Cholecalciferol (Vitamin D3) 10 MCG TABLET PO (08:30)
[2021-08-29] MEDS: Apixaban 5 MG TABLET PO (08:30)
[2021-08-29 08:38] VITALS: BP 148/94; PULSE 125; TEMP 36.6; O2SAT 94
[2021-08-29 17:10] VITALS: BP 127/81; PULSE 110; TEMP 36.6; O2SAT 96
--- NOTE | 2021-08-30 07:11 | HO.PSYCHPN ---
Subjective Subjective Date of Service: 08/29/21 Reason For Visit: Recurrent major depressive D/O Severe Subjective Notes: Conditional Voluntary Interim History: Pt with 1:1 due to unsteady gait. Pt with somewhat of irritable edge. Pt reports feeling okay. When asked to elaborate pt did not talk much. Significant dyskinesia noted, pt unable to stay sitting in chair. Pt denied SI/HI. Per nursing, pt slept through the night, no behavioral concerns. Pt had no recollection of recent fall. Medication Compliance: Yes Side effects from medications: No Review of Systems Review of Systems CVS: No c/o chest pain, palpitations, no SOB [employer]INATOR: No c/o dizziness, headache GI: No c/o Nausea, Vomiting, diarrhea, constipation or heartburn Reports behavioral changes Psychiatric: Reports abnormal sleep pattern, Reports anxiety, Reports behavioral changes, Reports change in appetite, Reports depression, Reports difficulty concentrating, Reports hopelessness, Reports irritability, Reports anhedonia and Reports suicidal ideation Mental Status Exam Mental Status Exam Narrative: involuntary movement Patient Appearance: Disheveled and Unkempt Patient Orientation: Person Level of Consciousness: Disoriented and Restless Patient Behavior: Suspicious and Avoidant Mood Description: Blunted Affect Description: Flat Patient Cognition Impaired: Yes Ability to Follow Directions: Poor Speech Pattern: No Speech Memory Description: Episodic Impaired Diagnostics Vital Signs (24Hr): Vital Signs - 24 hr 08/29/21 08:38 08/29/21 17:10 Temperature 97.8 F 97.8 F Pulse Rate 125 H 110 H Blood Pressure 148/94 H 127/81 Pulse Oximetry 94 96 Body Mass Index 22.9 Labs Results: 08/25/21 22:04 08/25/21 22:04 Imaging Radiology Impressions: ITS Impressions Chest X-Ray 08/20/21 10:00 IMPRESSION: 1. Lungs grossly clear. No infiltrate or effusion. 2. Hiatal hernia, approximately [address] 08/28/21 15:52 IMPRESSION: No acute intracranial findings. Atrophy and nonspecific periventricular white matter disease similar to previous exams. Medications Medications Current Medications Acetaminophen (Acetaminophen 325 Mg Tablet) 650 mg PO Q6H PRN PRN Reason: Headache/Pain Mild Scale (1-3) Al Hydroxide/Mg Hydroxide (Magnesium Hydrox/Alum Hydrox 30 Ml Oral.Susp) 30 ml PO Q6H PRN PRN Reason: Heartburn/Nausea Apixaban (Apixaban 5 Mg Tablet) 5 mg PO BID [facility] Last Admin: 08/29/21 19:49 Dose: Not Given Documented by: Atorvastatin Calcium (Atorvastatin Calcium 40 Mg Tablet) 40 mg PO BEDTIME [facility] Last Admin: 08/29/21 19:49 Dose: Not Given Documented by: Benzonatate (Benzonatate 100 Mg Capsule) 100 mg PO TID PRN PRN Reason: cough Docusate Sodium (Docusate Sodium 100 Mg Capsule) 100 mg PO BID [facility] Last Admin: 08/29/21 19:48 Dose: Not Given Documented by: Erythromycin (Erythromycin Base 0.5% Oph Oin 1 Gm Tube) 1 cm EYE-BOTH BID [facility] Last Admin: 08/29/21 19:48 Dose: Not Given Documented by: Ferrous Sulfate (Ferrous Sulfate 324 Mg Tablet.) 324 mg PO DAILY [facility] Last Admin: 08/29/21 08:30 Dose: 324 mg Documented by: Hydroxyzine HCl (Hydroxyzine Hcl 25 Mg Tablet) 25 mg PO BEDTIME PRN PRN Reason: Anxiety Last Admin: 08/25/21 05:36 Dose: 25 mg Documented by: Magnesium Hydroxide (Milk Of Magnesia 30 Ml Oral.Susp) 30 ml PO DAILY PRN PRN Reason: Constipation Nortriptyline HCl (Nortriptyline Hcl 25 Mg Capsule) 25 mg PO BEDTIME [facility] Last Admin: 08/29/21 19:48 Dose: Not Given Documented by: Olanzapine (Olanzapine 5 Mg Tablet) 5 mg PO BEDTIME [facility] Last Admin: 08/29/21 19:48 Dose: Not Given Documented by: Olanzapine (Olanzapine 2.5 Mg Tablet) 1.25 mg PO DAILY PRN PRN Reason: Anxiety Last Admin: 08/29/21 08:29 Dose: 1.25 mg Documented by: Omeprazole (Omeprazole 20 Mg Capsule.) 20 mg PO DAILY@0630 [facility] Last Admin: 08/30/21 05:30 Dose: Not Given Documented by: Oxybutynin Chloride (Oxybutynin Chloride Er 5 Mg Tab.Er.24) 5 mg PO DAILY [facility] Last Admin: 08/29/21 08:29 Dose: 5 mg Documented by: Trazodone HCl (Trazodone Hcl 50 Mg Tablet) 50 mg PO BEDTIME [facility] Last Admin: 08/29/21 19:48 Dose: Not Given Documented by: Vitamin D (Cholecalciferol (Vitamin D3) 10 Mcg Tablet) 10 mcg PO DAILY [facility] Last Admin: 08/29/21 08:30 Dose: 10 mcg Documented by: Allergies Allergies Allergy/AdvReac Type Severity Reaction Status Date / Time No Known Allergies Allergy Verified 01/25/21 06:43 [No Known Allergies*] Assessment & Plan Assessment & Plan (1) Major depressive disorder, recurrent, severe with psychotic features: Status: Acute Code(s): F33.3 - Major depressive disorder, recurrent, severe with psychotic symptoms Assessment and Plan: José Luis is a 76 year old male who carries a dx of MDD, recurrent, severe with hx of psychosis, catatonia. He is known to [facility] for similar presentation and has received ECT with good effect in the past. PLAN: continue per primary treatment team: Case reviewed with Dr. Sims he does not feel there is any different option at this time besides ECT. We did discuss restate belies in the patient and then trying TMS risk ketamine. Case reviewed with patient's healthcare proxy she clearly feels that patient has responded well to ECT generally understands limited options at this time feels that patient not able to make decision at this time The patient fell at 13:30 on Thursday. There is no changes in his mental status but he has a laceration on his left eye. We will order CT scan head and hospitalist consult. We also will place him on one-to-one. Plan: Monitor response to medications. Monitor for safety in the milieu. Discharge on stabilization. ECT number 1 completed I spent minutes with the patient and/or on the patient floor today, greater than?50% of which was spent counseling/coordinating care. Reason for contiued inpatient stay Substantial Risk for: inability to function
[2021-08-30] MEDS: Docusate Sodium 100 MG CAPSULE PO ×2 (08:21→20:22)
[2021-08-30] MEDS: Ferrous Sulfate 324 MG TABLET.DR PO (08:21)
[2021-08-30] MEDS: Apixaban 5 MG TABLET PO ×2 (08:21→20:23)
[2021-08-30] MEDS: Cholecalciferol (Vitamin D3) 10 MCG TABLET PO (08:21)
[2021-08-30 08:34] VITALS: PULSE 130; RESP 20; TEMP 37.2
--- NOTE | 2021-08-30 11:04 | P.PNPSI_ITS ---
Subjective Subjective Date of Service: 08/30/21 Reason For Visit: Recurrent major depressive D/O Severe Subjective Notes: Conditional Voluntary Interim History: The nursing staff reported the patient has being walking very unsteady and he needs to be on one-to-one. On Thursday, today CT he was more appropriate than even talking. Today in the morning, the patient was walking with the help of a one-to-one and he was in front of the door of the unit, very confused. No interview, the patient denies having any new problems, he was pleasantly confused but more active and even agitated at times. On team, we discussed the possibility of choking so speech and swallow consultation will be given. She also will get a PT consultation for unsteady gait Mental Status Exam Mental Status Exam Patient Appearance: Disheveled Patient Orientation: Person and Situation Level of Consciousness: Disoriented and Restless Patient Behavior: Passive and Restless Mood Description: Depressed Affect Description: Constricted Patient Cognition Impaired: Yes Ability to Follow Directions: Fair Speech Pattern: Impoverished and Monotone Hallucinations: None Delusions: Paranoid Ideation Thought Process: Illogical and Distracted Thought Content: positive for Circumstantial Judgement: Poor Diagnostics Vital Signs (24Hr): Vital Signs - 24 hr 08/29/21 17:10 08/30/21 08:34 Temperature 97.8 F 99 F Pulse Rate 110 H 130 H Respiratory Rate 20 Blood Pressure 127/81 Pulse Oximetry 96 Body Mass Index 22.9 Labs Results: 08/25/21 22:04 08/25/21 22:04 Imaging Radiology Impressions: ITS Impressions Chest X-Ray 08/20/21 10:00 IMPRESSION: 1. Lungs grossly clear. No infiltrate or effusion. 2. Hiatal hernia, approximately [address] 08/28/21 15:52 IMPRESSION: No acute intracranial findings. Atrophy and nonspecific periventricular white matter disease similar to previous exams. Medications Medications Current Medications Acetaminophen (Acetaminophen 325 Mg Tablet) 650 mg PO Q6H PRN PRN Reason: Headache/Pain Mild Scale (1-3) Al Hydroxide/Mg Hydroxide (Magnesium Hydrox/Alum Hydrox 30 Ml Oral.Susp) 30 ml PO Q6H PRN PRN Reason: Heartburn/Nausea Apixaban (Apixaban 5 Mg Tablet) 5 mg PO BID [facility] Last Admin: 08/30/21 08:21 Dose: 5 mg Documented by: Atorvastatin Calcium (Atorvastatin Calcium 40 Mg Tablet) 40 mg PO BEDTIME [facility] Last Admin: 08/29/21 19:49 Dose: Not Given Documented by: Benzonatate (Benzonatate 100 Mg Capsule) 100 mg PO TID PRN PRN Reason: cough Docusate Sodium (Docusate Sodium 100 Mg Capsule) 100 mg PO BID [facility] Last Admin: 08/30/21 08:21 Dose: 100 mg Documented by: Erythromycin (Erythromycin Base 0.5% Oph Oin 1 Gm Tube) 1 cm EYE-BOTH BID [facility] Last Admin: 08/30/21 08:21 Dose: Not Given Documented by: Ferrous Sulfate (Ferrous Sulfate 324 Mg Tablet.) 324 mg PO DAILY [facility] Last Admin: 08/30/21 08:21 Dose: 324 mg Documented by: Hydroxyzine HCl (Hydroxyzine Hcl 25 Mg Tablet) 25 mg PO BEDTIME PRN PRN Reason: Anxiety Last Admin: 08/25/21 05:36 Dose: 25 mg Documented by: Magnesium Hydroxide (Milk Of Magnesia 30 Ml Oral.Susp) 30 ml PO DAILY PRN PRN Reason: Constipation Nortriptyline HCl (Nortriptyline Hcl 25 Mg Capsule) 25 mg PO BEDTIME [facility] Last Admin: 08/29/21 19:48 Dose: Not Given Documented by: Olanzapine (Olanzapine 5 Mg Tablet) 5 mg PO BEDTIME [facility] Last Admin: 08/29/21 19:48 Dose: Not Given Documented by: Olanzapine (Olanzapine 2.5 Mg Tablet) 1.25 mg PO DAILY PRN PRN Reason: Anxiety Last Admin: 08/29/21 08:29 Dose: 1.25 mg Documented by: Omeprazole (Omeprazole 20 Mg Capsule.) 20 mg PO DAILY@0630 [facility] Last Admin: 08/30/21 05:30 Dose: Not Given Documented by: Oxybutynin Chloride (Oxybutynin Chloride Er 5 Mg Tab.Er.24) 5 mg PO DAILY [facility] Last Admin: 08/30/21 08:21 Dose: 5 mg Documented by: Trazodone HCl (Trazodone Hcl 50 Mg Tablet) 50 mg PO BEDTIME [facility] Last Admin: 08/29/21 19:48 Dose: Not Given Documented by: Vitamin D (Cholecalciferol (Vitamin D3) 10 Mcg Tablet) 10 mcg PO DAILY [facility] Last Admin: 08/30/21 08:21 Dose: 10 mcg Documented by: Allergies Allergies Allergy/AdvReac Type Severity Reaction Status Date / Time No Known Allergies Allergy Verified 01/25/21 06:43 [No Known Allergies*] Assessment & Plan Assessment & Plan (1) Major depressive disorder, recurrent, severe with psychotic features: Status: Acute Code(s): F33.3 - Major depressive disorder, recurrent, severe with psychotic symptoms Assessment and Plan: José Luis is a 76 year old male who carries a dx of MDD, recurrent, severe with hx of psychosis, catatonia. He is known to [facility] for similar presentation and has received ECT with good effect in the past. PLAN: continue per primary treatment team: Case reviewed with Dr. Sims he does not feel there is any different option at this time besides ECT. We did discuss restate belies in the patient and then trying TMS risk ketamine. Case reviewed with patient's healthcare proxy she clearly feels that patient has responded well to ECT generally understands limited options at this time feels that patient not able to make decision at this time The patient fell at 13:30 on Thursday. There is no changes in his mental status but he has a laceration on his left eye. We will order CT scan head and hospitalist consult. We also will place him on one-to-one. Plan: Monitor response to medications. Monitor for safety in the milieu. Discharge on stabilization. ECT number 1 completed Speech and swallow consult. PT evaluation order I spent minutes with the patient and/or on the patient floor today, greater than?50% of which was spent counseling/coordinating care. Reason for contiued inpatient stay Substantial Risk for: inability to function, rapid decompensation and med/psych decompensation
[2021-08-30] MEDS: OLANZapine 2.5 MG TABLET 1.25 MG PO ×2 (17:13→17:52)
[2021-08-30] MEDS: Acetaminophen 325 MG TABLET 650 MG PO (17:55)
[2021-08-30] MEDS: LORazepam 0.5 MG TABLET PO (18:05)
--- NOTE | 2021-08-30 18:16 | PC.NURSE ---
Pt. cont. on 1:1. Slept until approx. 4:15 then ate part of supper in room. Pt. too restless to stay in bed. Ambulated around unit with 1:1. Assisted into W.C with weighted blanket. Continued with unsafe psychomotor restlessness: attempting to slide out of WC. PRN Zyprexa given with out effect. Obtained one time order for additional Zyprexa 1.25 and Ativan 0.5. Effect pending.
[2021-08-30 19:46] VITALS: BP 111/60; PULSE 97; RESP 18; TEMP 36.6; O2SAT 96
[2021-08-30] MEDS: OLANZapine 5 MG TABLET PO (20:21)
[2021-08-30] MEDS: Atorvastatin Calcium 40 MG TABLET PO (20:21)
[2021-08-30] MEDS: LORazepam 1 MG TABLET PO (20:22)
[2021-08-30] MEDS: Nortriptyline HCl 25 MG CAPSULE PO (20:22)
[2021-08-30] MEDS: traZODone HCL 50 MG TABLET PO (20:23)
[2021-08-31] MEDS: Apixaban 5 MG TABLET PO ×2 (09:13→19:33)
[2021-08-31] MEDS: Ferrous Sulfate 324 MG TABLET.DR PO (09:13)
[2021-08-31] MEDS: LORazepam 0.5 MG TABLET PO ×2 (09:13→14:00)
[2021-08-31] MEDS: Docusate Sodium 100 MG CAPSULE PO (09:14)
[2021-08-31] MEDS: Cholecalciferol (Vitamin D3) 10 MCG TABLET PO (09:14)
[2021-08-31] MEDS: Erythromycin Base 0.5% Oph Oin 1 GM TUBE 1 CM EYE-BOTH (09:14)
--- NOTE | 2021-08-31 11:15 | P.PNPSI_ITS ---
Subjective Subjective Date of Service: 08/31/21 Reason For Visit: Recurrent major depressive D/O Severe Interim History: pt encountered slightly slumped in his chair at a table in the milieu, 1:1 by his side. he was apparently awake. he initally said he was doing well, then said he was not doing well because he cannot sleep. MD prompted for any other complaints and he said he needed to go to the bathroom; he was referred to work with his sitter to negotiate the task. per nursing st aff, he did have a night of disrupted sleep. he was helped by zyprexa, ativan, and trazodone PRNs. periods of agitation yesterday. got ECT . restless and agitated yesterday. Mental Status Exam Mental Status Exam Patient Appearance: Disheveled Patient Orientation: Person and Situation Level of Consciousness: Disoriented and Restless Patient Behavior: Passive and Restless Mood Description: Depressed Affect Description: Constricted Patient Cognition Impaired: Yes Ability to Follow Directions: Fair Speech Pattern: Impoverished and Monotone Hallucinations: None Thought Process: Illogical and Distracted Thought Content: positive for Circumstantial Judgement: Poor Diagnostics Vital Signs (24Hr): Vital Signs - 24 hr 08/30/21 19:46 Temperature 97.9 F Pulse Rate 97 Respiratory Rate 18 Blood Pressure 111/60 Pulse Oximetry 96 Body Mass Index 22.9 Labs Results: 08/25/21 22:04 08/25/21 22:04 Imaging Radiology Impressions: ITS Impressions Chest X-Ray 08/20/21 10:00 IMPRESSION: 1. Lungs grossly clear. No infiltrate or effusion. 2. Hiatal hernia, approximately [address] 08/28/21 15:52 IMPRESSION: No acute intracranial findings. Atrophy and nonspecific periventricular white matter disease similar to previous exams. Medications Medications Current Medications Acetaminophen (Acetaminophen 325 Mg Tablet) 650 mg PO Q6H PRN PRN Reason: Headache/Pain Mild Scale (1-3) Last Admin: 08/30/21 17:55 Dose: 650 mg Documented by: Al Hydroxide/Mg Hydroxide (Magnesium Hydrox/Alum Hydrox 30 Ml Oral.Susp) 30 ml PO Q6H PRN PRN Reason: Heartburn/Nausea Apixaban (Apixaban 5 Mg Tablet) 5 mg PO BID [facility] Last Admin: 08/31/21 09:13 Dose: 5 mg Documented by: Atorvastatin Calcium (Atorvastatin Calcium 40 Mg Tablet) 40 mg PO BEDTIME [facility] Last Admin: 08/30/21 20:21 Dose: 40 mg Documented by: Benzonatate (Benzonatate 100 Mg Capsule) 100 mg PO TID PRN PRN Reason: cough Docusate Sodium (Docusate Sodium 100 Mg Capsule) 100 mg PO BID [facility] Last Admin: 08/31/21 09:14 Dose: 100 mg Documented by: Erythromycin (Erythromycin Base 0.5% Oph Oin 1 Gm Tube) 1 cm EYE-BOTH BID [facility] Last Admin: 08/31/21 09:14 Dose: 1 cm Documented by: Ferrous Sulfate (Ferrous Sulfate 324 Mg Tablet.) 324 mg PO DAILY [facility] Last Admin: 08/31/21 09:13 Dose: 324 mg Documented by: Hydroxyzine HCl (Hydroxyzine Hcl 25 Mg Tablet) 25 mg PO BEDTIME PRN PRN Reason: Anxiety Last Admin: 08/25/21 05:36 Dose: 25 mg Documented by: Lorazepam (Lorazepam 0.5 Mg Tablet) 0.5 mg PO TID@0800,1300,1800 [facility] Last Admin: 08/31/21 09:13 Dose: 0.5 mg Documented by: Lorazepam (Lorazepam 1 Mg Tablet) 1 mg PO BEDTIME [facility] Last Admin: 08/30/21 20:22 Dose: 1 mg Documented by: Magnesium Hydroxide (Milk Of Magnesia 30 Ml Oral.Susp) 30 ml PO DAILY PRN PRN Reason: Constipation Nortriptyline HCl (Nortriptyline Hcl 25 Mg Capsule) 25 mg PO BEDTIME [facility] Last Admin: 08/30/21 20:22 Dose: 25 mg Documented by: Olanzapine (Olanzapine 5 Mg Tablet) 5 mg PO BEDTIME [facility] Last Admin: 08/30/21 20:21 Dose: 5 mg Documented by: Olanzapine (Olanzapine 2.5 Mg Tablet) 1.25 mg PO DAILY PRN PRN Reason: Anxiety Last Admin: 08/30/21 17:13 Dose: 1.25 mg Documented by: Omeprazole (Omeprazole 20 Mg Capsule.) 20 mg PO DAILY@0630 [facility] Last Admin: 08/31/21 05:46 Dose: Not Given Documented by: Oxybutynin Chloride (Oxybutynin Chloride Er 5 Mg Tab.Er.24) 5 mg PO DAILY [facility] Last Admin: 08/31/21 09:14 Dose: 5 mg Documented by: Trazodone HCl (Trazodone Hcl 50 Mg Tablet) 50 mg PO BEDTIME [facility] Last Admin: 08/30/21 20:23 Dose: 50 mg Documented by: Vitamin D (Cholecalciferol (Vitamin D3) 10 Mcg Tablet) 10 mcg PO DAILY [facility] Last Admin: 08/31/21 09:14 Dose: 10 mcg Documented by: Allergies Allergies Allergy/AdvReac Type Severity Reaction Status Date / Time No Known Allergies Allergy Verified 01/25/21 06:43 [No Known Allergies*] Assessment & Plan Assessment & Plan (1) Major depressive disorder, recurrent, severe with psychotic features: Status: Acute Code(s): F33.3 - Major depressive disorder, recurrent, severe with psychotic symptoms Assessment and Plan: José Luis is a 76 year old male who carries a dx of MDD, recurrent, severe with hx of psychosis, catatonia. He is known to [facility] for similar presentation and has received ECT with good effect in the past. PLAN: continue per primary treatment team: Case reviewed with Dr. Sims he does not feel there is any different option at this time besides ECT. We did discuss restate belies in the patient and then trying TMS risk ketamine. Case reviewed with patient's healthcare proxy she clearly feels that patient has responded well to ECT generally understands limited options at this time feels that patient not able to make decision at this time The patient fell at 13:30 on Thursday. There is no changes in his mental status but he has a laceration on his left eye. We will order CT scan head and hospitalist consult. We also will place him on one-to-one. Plan: ativan and trazodone PRNs put in place as of 08/30 and 08/31 due to restlessness and agitation; the PRNs appear to be effective. Monitor response to medications. Monitor for safety in the milieu. Discharge on stabilization. ECT number 1 completed Speech and swallow consult. PT evaluation order I spent minutes with the patient and/or on the patient floor today, greater than?50% of which was spent counseling/coordinating care. Reason for contiued inpatient stay Substantial Risk for: inability to function
[2021-08-31 14:04] VITALS: BP 111/60; PULSE 97; O2SAT 96
[2021-08-31 19:30] VITALS: BP 128/79; PULSE 98; RESP 18; TEMP 36.5; O2SAT 97
[2021-08-31] MEDS: Nortriptyline HCl 25 MG CAPSULE PO (19:33)
[2021-08-31] MEDS: OLANZapine 5 MG TABLET PO (19:33)
[2021-08-31] MEDS: Atorvastatin Calcium 40 MG TABLET PO (19:33)
[2021-08-31] MEDS: LORazepam 1 MG TABLET PO (19:34)
[2021-08-31] MEDS: traZODone HCL 50 MG TABLET PO (19:34)
[2021-09-01] MEDS: Docusate Sodium 100 MG CAPSULE PO ×3 (00:49→20:40)
[2021-09-01] MEDS: Apixaban 5 MG TABLET PO ×2 (08:37→20:40)
[2021-09-01] MEDS: Cholecalciferol (Vitamin D3) 10 MCG TABLET PO (08:37)
[2021-09-01] MEDS: LORazepam 0.5 MG TABLET PO ×3 (08:37→17:00)
[2021-09-01] MEDS: Omeprazole 20 MG CAPSULE.DR PO (08:38)
[2021-09-01] MEDS: Ferrous Sulfate 324 MG TABLET.DR PO (08:38)
[2021-09-01 09:52] VITALS: BP 113/75; PULSE 87; TEMP 36.2; O2SAT 96
--- NOTE | 2021-09-01 10:32 | HO.PSYCHPN ---
Subjective Subjective Date of Service: 09/01/21 Reason For Visit: Recurrent major depressive D/O Severe Interim History: pt presents similarly to yesterday. c/o poor sleep, but staff report he slept well last night. seems to lose track of his intentions, sitting up in bed to get up but then being unable to say why he wants to get up or what he would like to do. denies MD can help him in any way today. no other questions or requests. per staff, getting OOB using walker. med-compliant. ate more than 50% of his breakfast, which is a lot for him. more coherent and less restless/agitated than yesterday. Mental Status Exam Mental Status Exam Patient Appearance: Disheveled Patient Orientation: Person and Situation Level of Consciousness: Disoriented Patient Behavior: Passive Mood Description: Depressed Affect Description: Constricted Patient Cognition Impaired: Yes Ability to Follow Directions: Fair Speech Pattern: Impoverished and Monotone Hallucinations: None Thought Process: Illogical and Distracted Thought Content: positive for Circumstantial Judgement: Poor Diagnostics Vital Signs (24Hr): Vital Signs - 24 hr 08/31/21 14:04 08/31/21 19:30 09/01/21 09:52 Temperature 97.7 F 97.2 F Pulse Rate 97 98 87 Respiratory Rate 18 Blood Pressure 111/60 128/79 113/75 Pulse Oximetry 96 97 96 Body Mass Index 22.9 Labs Results: 08/25/21 22:04 08/25/21 22:04 Imaging Radiology Impressions: ITS Impressions Chest X-Ray 08/20/21 10:00 IMPRESSION: 1. Lungs grossly clear. No infiltrate or effusion. 2. Hiatal hernia, approximately [address] 08/28/21 15:52 IMPRESSION: No acute intracranial findings. Atrophy and nonspecific periventricular white matter disease similar to previous exams. Medications Medications Current Medications Acetaminophen (Acetaminophen 325 Mg Tablet) 650 mg PO Q6H PRN PRN Reason: Headache/Pain Mild Scale (1-3) Last Admin: 08/30/21 17:55 Dose: 650 mg Documented by: Al Hydroxide/Mg Hydroxide (Magnesium Hydrox/Alum Hydrox 30 Ml Oral.Susp) 30 ml PO Q6H PRN PRN Reason: Heartburn/Nausea Apixaban (Apixaban 5 Mg Tablet) 5 mg PO BID [facility] Last Admin: 09/01/21 08:37 Dose: 5 mg Documented by: Atorvastatin Calcium (Atorvastatin Calcium 40 Mg Tablet) 40 mg PO BEDTIME [facility] Last Admin: 08/31/21 19:33 Dose: 40 mg Documented by: Benzonatate (Benzonatate 100 Mg Capsule) 100 mg PO TID PRN PRN Reason: cough Docusate Sodium (Docusate Sodium 100 Mg Capsule) 100 mg PO BID [facility] Last Admin: 09/01/21 08:37 Dose: 100 mg Documented by: Erythromycin (Erythromycin Base 0.5% Oph Oin 1 Gm Tube) 1 cm EYE-BOTH BID [facility] Last Admin: 09/01/21 08:52 Dose: Not Given Documented by: Ferrous Sulfate (Ferrous Sulfate 324 Mg Tablet.) 324 mg PO DAILY [facility] Last Admin: 09/01/21 08:38 Dose: 324 mg Documented by: Hydroxyzine HCl (Hydroxyzine Hcl 25 Mg Tablet) 25 mg PO BEDTIME PRN PRN Reason: Anxiety Last Admin: 08/25/21 05:36 Dose: 25 mg Documented by: Lorazepam (Lorazepam 0.5 Mg Tablet) 0.5 mg PO TID@0800,1300,1800 [facility] Last Admin: 09/01/21 08:37 Dose: 0.5 mg Documented by: Lorazepam (Lorazepam 1 Mg Tablet) 1 mg PO BEDTIME [facility] Last Admin: 08/31/21 19:34 Dose: 1 mg Documented by: Magnesium Hydroxide (Milk Of Magnesia 30 Ml Oral.Susp) 30 ml PO DAILY PRN PRN Reason: Constipation Nortriptyline HCl (Nortriptyline Hcl 25 Mg Capsule) 25 mg PO BEDTIME [facility] Last Admin: 08/31/21 19:33 Dose: 25 mg Documented by: Olanzapine (Olanzapine 5 Mg Tablet) 5 mg PO BEDTIME [facility] Last Admin: 08/31/21 19:33 Dose: 5 mg Documented by: Olanzapine (Olanzapine 2.5 Mg Tablet) 1.25 mg PO DAILY PRN PRN Reason: Anxiety Last Admin: 08/30/21 17:13 Dose: 1.25 mg Documented by: Omeprazole (Omeprazole 20 Mg Capsule.) 20 mg PO DAILY@0630 [facility] Last Admin: 09/01/21 08:38 Dose: 20 mg Documented by: Oxybutynin Chloride (Oxybutynin Chloride Er 5 Mg Tab.Er.24) 5 mg PO DAILY [facility] Last Admin: 09/01/21 08:37 Dose: 5 mg Documented by: Trazodone HCl (Trazodone Hcl 50 Mg Tablet) 50 mg PO BEDTIME [facility] Last Admin: 08/31/21 19:34 Dose: 50 mg Documented by: Trazodone HCl (Trazodone Hcl 50 Mg Tablet) 50 mg PO BEDTIME PRN PRN Reason: insomnia Vitamin D (Cholecalciferol (Vitamin D3) 10 Mcg Tablet) 10 mcg PO DAILY [facility] Last Admin: 09/01/21 08:37 Dose: 10 mcg Documented by: Allergies Allergies Allergy/AdvReac Type Severity Reaction Status Date / Time No Known Allergies Allergy Verified 01/25/21 06:43 [No Known Allergies*] Assessment & Plan Assessment & Plan (1) Major depressive disorder, recurrent, severe with psychotic features: Status: Acute Code(s): F33.3 - Major depressive disorder, recurrent, severe with psychotic symptoms Assessment and Plan: José Luis is a 76 year old male who carries a dx of MDD, recurrent, severe with hx of psychosis, catatonia. He is known to [facility] for similar presentation and has received ECT with good effect in the past. PLAN: continue per primary treatment team: Case reviewed with Dr. Sims he does not feel there is any different option at this time besides ECT. We did discuss restate belies in the patient and then trying TMS risk ketamine. Case reviewed with patient's healthcare proxy she clearly feels that patient has responded well to ECT generally understands limited options at this time feels that patient not able to make decision at this time The patient fell at 13:30 on Thursday. There is no changes in his mental status but he has a laceration on his left eye. We will order CT scan head and hospitalist consult. We also will place him on one-to-one. Plan: ativan and trazodone PRNs put in place as of 08/30 and 08/31 due to restlessness and agitation; the PRNs appear to be effective. Monitor response to medications. Monitor for safety in the milieu. Discharge on stabilization. ECT number 1 completed Speech and swallow consult. PT evaluation order I spent minutes with the patient and/or on the patient floor today, greater than?50% of which was spent counseling/coordinating care. Reason for contiued inpatient stay Substantial Risk for: inability to function and rapid decompensation
[2021-09-01] MEDS: OLANZapine 2.5 MG TABLET 1.25 MG PO (11:18)
[2021-09-01 20:04] VITALS: BP 103/56; PULSE 88; RESP 18; TEMP 36.8; O2SAT 96
[2021-09-01] MEDS: traZODone HCL 50 MG TABLET PO (20:39)
[2021-09-01] MEDS: OLANZapine 5 MG TABLET PO (20:39)
[2021-09-01] MEDS: Nortriptyline HCl 25 MG CAPSULE PO (20:40)
[2021-09-01] MEDS: Atorvastatin Calcium 40 MG TABLET PO (20:40)
[2021-09-02] VITALS (10 sets, daily range): BP systolic 98–127; BP diastolic 61–77; PULSE 72–113; RESP 16–19; TEMP 35.9–36.9; O2SAT 93–100; BMI 25.8
--- NOTE | 2021-09-02 06:36 | PC.NURSE ---
patient slept all night continues on 1:1 supervision Ativan held due to ECT in am pt remained NPO throughout the night. To PACU via wheelchair at 0600 with BOIL OFF WORKER,
--- NOTE | 2021-09-02 06:53 | HO.ANESPROP2 ---
[facility] Active Problems Active Problems: All Active Problems (Updated 08/21/21 @ 09:05 by Leila Bryson APRN) Major depressive disorder, recurrent, severe with psychotic features (Acute) Depression (Acute) Physical deconditioning (Acute) Preoperative cardiovascular examination (Acute) Anemia (Acute) GERD (gastroesophageal reflux disease) (Acute) Past Medical History Medical History COVID-19 vaccine administered Dementia Depression Diverticulitis of colon with perforation GERD (gastroesophageal reflux disease) History of electroconvulsive therapy HTN (hypertension) Hyperlipidemia Major depressive disorder, recurrent, severe with psychotic features Pulmonary embolism SVT (supraventricular tachycardia) Functional capacity: uses cane/walker Family History Family History Brother Blood clot in vein Other No history of cardiac disorder Family history of problems with anesthesia: No Surgical History Surgical History H/O colonoscopy H/O hernia repair History of colostomy reversal History of esophagogastroduodenoscopy (EGD) Status post Paula's procedure History of Problems with Anesthesia: No Social History Social History Household Members: Other Housing: Assisted Living Facility Are you a primary child care director to a significant other at home: No Do you presently have visiting nurse or other home services: No Alcohol intake: former Patient Tobacco Use Status: Never used Tobacco Second Hand Smoke Exposure: No Use of substances other than those prescribed or required for medical reasons: No Currently Displaying Signs/Symptoms of Drug Intoxication Withdrawal: No Have you been hit, kicked, punched, or otherwise hurt by someone within the past year? If so, by whom?: No Do you feel safe in your current relationship?: No Current Relationship Is there a partner from a previous relationship who is making you feel unsafe now?: No Are you made to feel afraid or neglected: No Spiritual Healthcare Practices: refusing to respond L[employer] Healthcare Practices: refusing to respond Cultural Healthcare Practices: refusing to respond Are you DNR?: No Advance Directives: Yes Advance Directives Information Provided: No Advance Directives on File: Yes Advance Directives Date on File: 07/27/20 Do you have thoughts of harming others: None Do you have a plan to hurt others: No Plan Recently lost weight without trying: Unsure Poor oral hygiene: Yes service: Yes Current occupational status: retired Sexual orientation: Straight/Heterosexual Meds Allergies Allergy/AdvReac Type Severity Reaction Status Date / Time No Known Allergies Allergy Verified 01/25/21 06:43 [No Known Allergies*] Active Medications: Current Medications Acetaminophen (Acetaminophen 325 Mg Tablet) 650 mg PO Q6H PRN PRN Reason: Headache/Pain Mild Scale (1-3) Last Admin: 08/30/21 17:55 Dose: 650 mg Documented by: Al Hydroxide/Mg Hydroxide (Magnesium Hydrox/Alum Hydrox 30 Ml Oral.Susp) 30 ml PO Q6H PRN PRN Reason: Heartburn/Nausea Apixaban (Apixaban 5 Mg Tablet) 5 mg PO BID [facility] Last Admin: 09/01/21 20:40 Dose: 5 mg Documented by: Atorvastatin Calcium (Atorvastatin Calcium 40 Mg Tablet) 40 mg PO BEDTIME [facility] Last Admin: 09/01/21 20:40 Dose: 40 mg Documented by: Benzonatate (Benzonatate 100 Mg Capsule) 100 mg PO TID PRN PRN Reason: cough Docusate Sodium (Docusate Sodium 100 Mg Capsule) 100 mg PO BID [facility] Last Admin: 09/01/21 20:40 Dose: 100 mg Documented by: Erythromycin (Erythromycin Base 0.5% Oph Oin 1 Gm Tube) 1 cm EYE-BOTH BID [facility] Last Admin: 09/01/21 20:44 Dose: Not Given Documented by: Ferrous Sulfate (Ferrous Sulfate 324 Mg Tablet.) 324 mg PO DAILY [facility] Last Admin: 09/01/21 08:38 Dose: 324 mg Documented by: Hydroxyzine HCl (Hydroxyzine Hcl 25 Mg Tablet) 25 mg PO BEDTIME PRN PRN Reason: Anxiety Last Admin: 08/25/21 05:36 Dose: 25 mg Documented by: Lorazepam (Lorazepam 0.5 Mg Tablet) 0.5 mg PO TID@0800,1300,1800 [facility] Last Admin: 09/01/21 17:00 Dose: 0.5 mg Documented by: Lorazepam (Lorazepam 1 Mg Tablet) 1 mg PO BEDTIME [facility] Last Admin: 09/01/21 20:46 Dose: Not Given Documented by: Magnesium Hydroxide (Milk Of Magnesia 30 Ml Oral.Susp) 30 ml PO DAILY PRN PRN Reason: Constipation Nortriptyline HCl (Nortriptyline Hcl 25 Mg Capsule) 25 mg PO BEDTIME [facility] Last Admin: 09/01/21 20:40 Dose: 25 mg Documented by: Olanzapine (Olanzapine 5 Mg Tablet) 5 mg PO BEDTIME [facility] Last Admin: 09/01/21 20:39 Dose: 5 mg Documented by: Olanzapine (Olanzapine 2.5 Mg Tablet) 1.25 mg PO DAILY PRN PRN Reason: Anxiety Last Admin: 09/01/21 11:18 Dose: 1.25 mg Documented by: Omeprazole (Omeprazole 20 Mg Capsule.Dr) 20 mg PO DAILY@0630 [facility] Last Admin: 09/02/21 05:37 Dose: Not Given Documented by: Oxybutynin Chloride (Oxybutynin Chloride Er 5 Mg Tab.Er.24) 5 mg PO DAILY [facility] Last Admin: 09/01/21 08:37 Dose: 5 mg Documented by: Trazodone HCl (Trazodone Hcl 50 Mg Tablet) 50 mg PO BEDTIME [facility] Last Admin: 09/01/21 20:39 Dose: 50 mg Documented by: Trazodone HCl (Trazodone Hcl 50 Mg Tablet) 50 mg PO BEDTIME PRN PRN Reason: insomnia Vitamin D (Cholecalciferol (Vitamin D3) 10 Mcg Tablet) 10 mcg PO DAILY [facility] Last Admin: 09/01/21 08:37 Dose: 10 mcg Documented by: Home Medications Medication Instructions Recorded Confirmed Last Taken Type atorvastatin 40 mg tablet 1 tab PO BEDTIME 08/18/21 08/18/21 Unknown History benztropine 1 mg tablet 1 tab PO BID 08/18/21 08/18/21 Unknown History finasteride 5 mg tablet 1 tab PO DAILY 08/18/21 08/18/21 Unknown History fluoxetine 10 mg capsule 1 cap PO DAILY 08/18/21 08/18/21 Unknown History olanzapine 10 mg tablet 5 mg PO BEDTIME 08/18/21 08/18/21 Unknown History olanzapine 2.5 mg tablet 0.5 tab PO DAILY PRN 08/18/21 08/18/21 Unknown History omeprazole 20 mg capsule,delayed 1 cap PO DAILY 08/18/21 08/18/21 Unknown History release propranolol 10 mg tablet 1 tab PO TID PRN 08/18/21 08/18/21 Unknown History trazodone 50 mg tablet 50 mg PO BEDTIME 08/18/21 08/18/21 Unknown History Exam Exam Date and Time: September 02, 2021 0653 Height,Weight and Vital Signs: Height 5 ft 10 in Weight 72.575 kg Last Vital Signs Temp 97.6 F 09/02/21 05:36 Pulse 72 09/02/21 05:36 Resp 18 09/02/21 05:36 BP 118/71 09/02/21 05:36 Pulse Ox 98 09/02/21 05:36 Pertinent Lab Results Pertinent Lab Results: Laboratory Tests 08/17/21 08/17/21 08/17/21 20:30 20:31 20:31 WBC RBC Hgb Hct MCV MCH MCHC RDW Plt Count MPV Immature Gran % (Auto) Neut % (Auto) Lymph % (Auto) Luce % (Auto) Eos % (Auto) Baso % (Auto) Lymph # (Auto) Luce # (Auto) Eos # (Auto) Baso # (Auto) Abs Immat Gran (auto) Absolute Neuts (auto) Absolute Nucleated RBC Nucleated RBC % (auto) Sodium Potassium Chloride Carbon Dioxide Anion Gap BUN Creatinine Estim Creat Clear Calc Estimated GFR Random Glucose Estimat Average Glucose Hemoglobin A1c % Calcium Total Bilirubin AST ALT Alkaline Phosphatase Total Protein Albumin Triglycerides Cholesterol LDL Cholesterol, Calc HDL Cholesterol Vitamin B12 25-OH Vitamin D Total Folate TSH Urine Color YELLOW Urine Appearance HAZY Urine pH 6.0 Ur Specific [place] 1.025 Urine Protein NEG Urine Glucose (UA) NEG Urine Ketones NEG Urine Blood NEG Urine Nitrite NEG Ur Leukocyte Esterase NEG Urine Opiates Screen Not Detected Urine Fentanyl Screen POSITIVE H Ur Barbiturates Screen Not Detected Ur Phencyclidine Scrn Not Detected Ur Amphetamines Screen Not Detected U Benzodiazepines Scrn Not Detected Urine Cocaine Screen Not Detected U Marijuana (THC) Screen Not Detected Ethyl Alcohol COVID-19 ([facility]) Negative COVID-19 Clin Com See Note 08/17/21 08/17/21 08/17/21 21:16 21:16 21:17 WBC 5.4 RBC 4.22 L Hgb 14.0 Hct 40.9 L MCV 96.9 MCH 33.2 H MCHC 34.2 RDW 13.0 Plt Count 160 MPV 8.7 L Immature Gran % (Auto) 0.2 Neut % (Auto) 64.6 Lymph % (Auto) 21.5 Luce % (Auto) 10.4 Eos % (Auto) 3.1 Baso % (Auto) 0.2 Lymph # (Auto) 1.2 Luce # (Auto) 0.6 Eos # (Auto) 0.2 Baso # (Auto) 0.0 Abs Immat Gran (auto) 0.01 Absolute Neuts (auto) 3.5 Absolute Nucleated RBC 0.000 Nucleated RBC % (auto) 0.0 Sodium 143 Potassium 4.0 Chloride 108 Carbon Dioxide 27 Anion Gap 12 BUN 21 H Creatinine 1.03 Estim Creat Clear Calc 60.6 Estimated GFR > 60 Random Glucose 169 H Estimat Average Glucose Hemoglobin A1c % Calcium 9.7 D Total Bilirubin AST ALT Alkaline Phosphatase Total Protein Albumin Triglycerides Cholesterol LDL Cholesterol, Calc HDL Cholesterol Vitamin B12 25-OH Vitamin D Total Folate TSH Urine Color Urine Appearance Urine pH Ur Specific [place] Urine Protein Urine Glucose (UA) Urine Ketones Urine Blood Urine Nitrite Ur Leukocyte Esterase Urine Opiates Screen Urine Fentanyl Screen Ur Barbiturates Screen Ur Phencyclidine Scrn Ur Amphetamines Screen U Benzodiazepines Scrn Urine Cocaine Screen U Marijuana (THC) Screen Ethyl Alcohol < 10 COVID-19 ([facility]) COVID-19 Clin Com 08/19/21 08/20/21 08/20/21 09:11 08:25 08:25 WBC RBC Hgb Hct MCV MCH MCHC RDW Plt Count MPV Immature Gran % (Auto) Neut % (Auto) Lymph % (Auto) Luce % (Auto) Eos % (Auto) Baso % (Auto) Lymph # (Auto) Luce # (Auto) Eos # (Auto) Baso # (Auto) Abs Immat Gran (auto) Absolute Neuts (auto) Absolute Nucleated RBC Nucleated RBC % (auto) Sodium 140 Potassium 4.1 Chloride 106 Carbon Dioxide 19 L Anion Gap 19 BUN 30 H Creatinine 0.91 Estim Creat Clear Calc 68.6 Estimated GFR > 60 Random Glucose 84 D Estimat Average Glucose 120 Hemoglobin A1c % 5.8 Calcium 9.4 Total Bilirubin 1.4 H AST 23 ALT 22 Alkaline Phosphatase 124 H Total Protein 6.9 Albumin 4.3 Triglycerides 118 Cholesterol 153 LDL Cholesterol, Calc 90 HDL Cholesterol 40 Vitamin B12 25-OH Vitamin D Total 24.8 Folate TSH 0.60 Urine Color Urine Appearance Urine pH Ur Specific [place] Urine Protein Urine Glucose (UA) Urine Ketones Urine Blood Urine Nitrite Ur Leukocyte Esterase Urine Opiates Screen Urine Fentanyl Screen Ur Barbiturates Screen Ur Phencyclidine Scrn Ur Amphetamines Screen U Benzodiazepines Scrn Urine Cocaine Screen U Marijuana (THC) Screen Ethyl Alcohol COVID-19 ([facility]) Negative COVID-19 Clin Com See Note 08/20/21 08/25/21 08/25/21 08:25 22:04 22:04 WBC 5.6 RBC 4.05 L Hgb 13.8 L Hct 38.5 L MCV 95.1 MCH 34.1 H MCHC 35.8 RDW 13.2 Plt Count 165 MPV 8.7 L Immature Gran % (Auto) Neut % (Auto) Lymph % (Auto) Luce % (Auto) Eos % (Auto) Baso % (Auto) Lymph # (Auto) Luce # (Auto) Eos # (Auto) Baso # (Auto) Abs Immat Gran (auto) Absolute Neuts (auto) Absolute Nucleated RBC 0.000 Nucleated RBC % (auto) 0.0 Sodium 143 Potassium 3.6 Chloride 108 Carbon Dioxide 24 Anion Gap 15 BUN 34 H Creatinine 0.90 Estim Creat Clear Calc 69.4 Estimated GFR > 60 Random Glucose 115 D Estimat Average Glucose Hemoglobin A1c % Calcium 9.5 Total Bilirubin 1.3 H AST 32 ALT 34 Alkaline Phosphatase 121 H Total Protein 6.3 L Albumin 4.0 Triglycerides Cholesterol LDL Cholesterol, Calc HDL Cholesterol Vitamin B12 668 25-OH Vitamin D Total Folate 11.8 TSH Urine Color Urine Appearance Urine pH Ur Specific [place] Urine Protein Urine Glucose (UA) Urine Ketones Urine Blood Urine Nitrite Ur Leukocyte Esterase Urine Opiates Screen Urine Fentanyl Screen Ur Barbiturates Screen Ur Phencyclidine Scrn Ur Amphetamines Screen U Benzodiazepines Scrn Urine Cocaine Screen U Marijuana (THC) Screen Ethyl Alcohol COVID-19 ([facility]) COVID-19 Clin Com 08/25/21 22:35 WBC RBC Hgb Hct MCV MCH MCHC RDW Plt Count MPV Immature Gran % (Auto) Neut % (Auto) Lymph % (Auto) Luce % (Auto) Eos % (Auto) Baso % (Auto) Lymph # (Auto) Luce # (Auto) Eos # (Auto) Baso # (Auto) Abs Immat Gran (auto) Absolute Neuts (auto) Absolute Nucleated RBC Nucleated RBC % (auto) Sodium Potassium Chloride Carbon Dioxide Anion Gap BUN Creatinine Estim Creat Clear Calc Estimated GFR Random Glucose Estimat Average Glucose Hemoglobin A1c % Calcium Total Bilirubin AST ALT Alkaline Phosphatase Total Protein Albumin Triglycerides Cholesterol LDL Cholesterol, Calc HDL Cholesterol Vitamin B12 25-OH Vitamin D Total Folate TSH Urine Color YELLOW Urine Appearance CLEAR Urine pH 6.0 Ur Specific [place] >= 1.030 H Urine Protein TRACE Urine Glucose (UA) NEG Urine Ketones 5 Urine Blood NEG Urine Nitrite NEG Ur Leukocyte Esterase NEG Urine Opiates Screen Urine Fentanyl Screen Ur Barbiturates Screen Ur Phencyclidine Scrn Ur Amphetamines Screen U Benzodiazepines Scrn Urine Cocaine Screen U Marijuana (THC) Screen Ethyl Alcohol COVID-19 ([facility]) COVID-19 Clin Com Airway Mallampati Class: II TM Dist: >3cm Neck ROM: Full Denture: Upper Heart: tachy Lungs: cta Assessment and Plan Assessment Anesthesia Assessment: Anesthesia Plan Discussed and Chart Reviewed Final Anesthetic Review Family History of Problems with Anesthesia: No History of Problems with Anesthesia: No NPO: Yes ASA Class: III Final Preanesthetic Review: No Changes in Pt Med Stat, Meds/Allgs Chart Reviewed and Consent Obtained/Reviewed Patient Risk: Intermediate Procedure Risk: Intermediate Anesthetic Plan Anesthetic Plan: GA Disposition: Standard PACU
--- NOTE | 2021-09-02 07:05 | MHC.SHP ---
Pre-Procedural Eval Section A Date of Service: 09/02/21 The patient is an INPATIENT: Yes Changes since office visit: No Cold of Flu in the past 2 weeks, No New Medical Problems, No Changes in Medication and No Patient answered all questions The History & Physical has been completed within 30 days and I have reviewed it.: Yes Section B Chief Complaint: Recurrent major depressive D/O Severe Allergies: Allergies Allergy/AdvReac Type Severity Reaction Status Date / Time No Known Allergies Allergy Verified 01/25/21 06:43 [No Known Allergies*] Plan I have reviewed the history and physical and performed a pertinent physical examination on my patient. No changes have occurred unless specified.
--- NOTE | 2021-09-02 07:05 | HO.ECTPROC ---
ECT Procedure Note Diagnosis/Treatment Date of Service: 09/02/21 Diagnosis: Major Depressive Disorder Current Treatment Number: 2 Treatment: Series Interval Clinical Notes: The patient responded well to the first ECT but he remains disorganized and agitated at times, on 1:1 observation ECT Settings Device: THYMATRON DGx Electrode Placement: Right Unilateral Program/Pulse Width: 0.50 Energy Percent: 100 Seizure Duration By EEG (in seconds): 0 (EEG computer didn't recognize seizure but there was seizure actitivy until 50s) By Motor Observation (in seconds): 28 Medications Administration General Anesthetic: Etomidate (12) Muscle Relaxant: Succinylcholine (100) Ancillary Medications Analgesics: Torodol - Pre ECT Anti-emetics: Zofran - Pre ECT Miscillaneous Medications: Propofol and Flumazenil Airway Management Airway Management: Bag Mask Ventilation Treatment Recommendations No Changes Recommended: No change Pt Tolerated Procedure w/o Issue: Yes
[2021-09-02] MEDS: Docusate Sodium 100 MG CAPSULE PO ×2 (09:17→22:17)
[2021-09-02] MEDS: LORazepam 0.5 MG TABLET PO ×3 (09:17→17:51)
[2021-09-02] MEDS: Omeprazole 20 MG CAPSULE.DR PO (09:17)
[2021-09-02] MEDS: Apixaban 5 MG TABLET PO ×2 (09:17→22:17)
[2021-09-02] MEDS: Ferrous Sulfate 324 MG TABLET.DR PO (09:17)
[2021-09-02] MEDS: Cholecalciferol (Vitamin D3) 10 MCG TABLET PO (09:17)
--- NOTE | 2021-09-02 12:56 | MHC.SL.SWA ---
Speech Pathologist Impression: Risk of Aspiration Oralpharyngeal Dysphagia Risk of Aspiration Due to: Poor PO Intake Dysphasia Diet Status: Downgrade Liquid Consistency and Strategies for Safe Swallow: Liquid Intake Recommendation: Thin Liquid Intake Strategies: Small Sips No Straws Solid Food Consistency: Dietary Recommendations: Chopped/Advanced (NDD3) Additional Modifications to Solid Foods: Recommend CHOPPED/ADVANCED (NDD3) solids and THIN liquids, with pills WHOLE in PUREE or LIQUID. Patient is observed to impulsively take quick sequential sips of liquid, which results in coughing episodes. Recommend total supervision to ensure aspiration precautions and to monitor tolerance. Patient may benefit from reminders to eat/drink with a slow pace, take individual sips, alternate bite of food with sip of liquid. [employer] will follow up tomorrow morning. Oral Medication Intake: Whole with Liquid Compensatory Strategies and Precautions to be Taken for Safe Swallow: Sitting Upright (90 deg) No Straw Liquids from Cup Liquids from Spoon Small Bites and Sips Alternate Liquids/Solids Rate of Ingestion Change Supervision While Eating and Drinking for Safe Swallow: Total Supervision (1:1) Swallowing Recommended Treatments: Compens. Strategy Educat. Recommendation for Speech: Inpatient Speech Therapy [place] Raiser Clinican/Clinical Fellow: No Supervisory Statement: I have reviewed and agree with the student/clinical fellow's documentation: N/A Speech Language Pathologist: Skye Seo M.A., [facility]
--- NOTE | 2021-09-02 14:06 | PC.NURSE ---
Patient is alert. Patient returned from ECT around 9:00 AM this morning. VT stable : TA: 127/66 , Pls : 113 , Spo2 : 97 . Temp : 96.7 . Patient Isolative in his room. Came out only for eating. Reported feeling better after. Ativan schedule and given Patient less agitated compare to the first ECT last week. Patient was sad , depressed , but responsive. Will continue to monitor.
--- NOTE | 2021-09-02 15:00 | P.PNPSI_ITS ---
Subjective Subjective Date of Service: 09/02/21 Reason For Visit: Recurrent major depressive D/O Severe Subjective Notes: Conditional Voluntary (Affirmed healthcare proxy) Interim History: The nursing staff reported the patient remains on one-to-one, his gait is more steady but he spends most of the time on his bed. Today in early in the morning, he had ECT and he stated that he was not doing well. Later, the patient spent most of the day on his bed. He looks dysphoric, disorganized and anxious Mental Status Exam Mental Status Exam Patient Appearance: Disheveled and Unkempt Patient Orientation: Person Level of Consciousness: Sedated and Disoriented Patient Behavior: Guarded and Restless Mood Description: Depressed Affect Description: Constricted Patient Cognition Impaired: Yes Ability to Follow Directions: Fair Speech Pattern: Impoverished, Monotone and Poor Articulation Hallucinations: None Delusions: Not Present Thought Process: Distracted and Confusion Thought Content: positive for Loose Associations and positive for Thought Blocking Judgement: Poor Diagnostics Vital Signs (24Hr): Vital Signs - 24 hr 09/01/21 20:04 09/02/21 05:36 09/02/21 06:58 Temperature 98.2 F 97.6 F 97.6 F Pulse Rate 88 72 99 Respiratory Rate 18 18 16 Blood Pressure 103/56 L 118/71 127/76 Pulse Oximetry 96 98 96 09/02/21 07:53 09/02/21 07:58 09/02/21 08:03 Temperature 97.6 F Pulse Rate 88 92 91 Respiratory Rate 16 19 18 Blood Pressure 121/77 98/63 105/61 Pulse Oximetry 100 93 95 09/02/21 08:12 09/02/21 08:27 09/02/21 08:52 Temperature 97.5 F Pulse Rate 95 84 84 Respiratory Rate 18 16 17 Blood Pressure 107/63 110/61 118/62 Pulse Oximetry 95 95 96 09/02/21 09:00 Temperature 96.7 F L Pulse Rate 113 H Respiratory Rate Blood Pressure 127/66 Pulse Oximetry 97 Body Mass Index 25.8 Labs Results: 08/25/21 22:04 08/25/21 22:04 Imaging Radiology Impressions: ITS Impressions Chest X-Ray 08/20/21 10:00 IMPRESSION: 1. Lungs grossly clear. No infiltrate or effusion. 2. Hiatal hernia, approximately [address] 08/28/21 15:52 IMPRESSION: No acute intracranial findings. Atrophy and nonspecific periventricular white matter disease similar to previous exams. Medications Medications Current Medications Acetaminophen (Acetaminophen 325 Mg Tablet) 650 mg PO Q6H PRN PRN Reason: Headache/Pain Mild Scale (1-3) Last Admin: 08/30/21 17:55 Dose: 650 mg Documented by: Al Hydroxide/Mg Hydroxide (Magnesium Hydrox/Alum Hydrox 30 Ml Oral.Susp) 30 ml PO Q6H PRN PRN Reason: Heartburn/Nausea Apixaban (Apixaban 5 Mg Tablet) 5 mg PO BID [facility] Last Admin: 09/02/21 09:17 Dose: 5 mg Documented by: Atorvastatin Calcium (Atorvastatin Calcium 40 Mg Tablet) 40 mg PO BEDTIME [facility] Last Admin: 09/01/21 20:40 Dose: 40 mg Documented by: Benzonatate (Benzonatate 100 Mg Capsule) 100 mg PO TID PRN PRN Reason: cough Docusate Sodium (Docusate Sodium 100 Mg Capsule) 100 mg PO BID [facility] Last Admin: 09/02/21 09:17 Dose: 100 mg Documented by: Erythromycin (Erythromycin Base 0.5% Oph Oin 1 Gm Tube) 1 cm EYE-BOTH BID [facility] Last Admin: 09/02/21 11:01 Dose: Not Given Documented by: Ferrous Sulfate (Ferrous Sulfate 324 Mg Tablet.) 324 mg PO DAILY [facility] Last Admin: 09/02/21 09:17 Dose: 324 mg Documented by: Hydroxyzine HCl (Hydroxyzine Hcl 25 Mg Tablet) 25 mg PO BEDTIME PRN PRN Reason: Anxiety Last Admin: 08/25/21 05:36 Dose: 25 mg Documented by: Lorazepam (Lorazepam 0.5 Mg Tablet) 0.5 mg PO TID@0800,1300,1800 [facility] Last Admin: 09/02/21 13:27 Dose: 0.5 mg Documented by: Lorazepam (Lorazepam 1 Mg Tablet) 1 mg PO BEDTIME [facility] Last Admin: 09/01/21 20:46 Dose: Not Given Documented by: Magnesium Hydroxide (Milk Of Magnesia 30 Ml Oral.Susp) 30 ml PO DAILY PRN PRN Reason: Constipation Nortriptyline HCl (Nortriptyline Hcl 25 Mg Capsule) 25 mg PO BEDTIME [facility] Last Admin: 09/01/21 20:40 Dose: 25 mg Documented by: Olanzapine (Olanzapine 5 Mg Tablet) 5 mg PO BEDTIME [facility] Last Admin: 09/01/21 20:39 Dose: 5 mg Documented by: Olanzapine (Olanzapine 2.5 Mg Tablet) 1.25 mg PO DAILY PRN PRN Reason: Anxiety Last Admin: 09/01/21 11:18 Dose: 1.25 mg Documented by: Omeprazole (Omeprazole 20 Mg Isacc.) 20 mg PO DAILY@0630 [facility] Last Admin: 09/02/21 09:17 Dose: 20 mg Documented by: Oxybutynin Chloride (Oxybutynin Chloride Er 5 Mg Tab.Er.24) 5 mg PO DAILY [facility] Last Admin: 09/02/21 09:17 Dose: 5 mg Documented by: Trazodone HCl (Trazodone Hcl 50 Mg Tablet) 50 mg PO BEDTIME [facility] Last Admin: 09/01/21 20:39 Dose: 50 mg Documented by: Trazodone HCl (Trazodone Hcl 50 Mg Tablet) 50 mg PO BEDTIME PRN PRN Reason: insomnia Vitamin D (Cholecalciferol (Vitamin D3) 10 Mcg Tablet) 10 mcg PO DAILY [facility] Last Admin: 09/02/21 09:17 Dose: 10 mcg Documented by: Allergies Allergies Allergy/AdvReac Type Severity Reaction Status Date / Time No Known Allergies Allergy Verified 01/25/21 06:43 [No Known Allergies*] Assessment & Plan Assessment & Plan (1) Major depressive disorder, recurrent, severe with psychotic features: Status: Acute Code(s): F33.3 - Major depressive disorder, recurrent, severe with psychotic symptoms Assessment and Plan: José Luis is a 76 year old male who carries a dx of MDD, recurrent, severe with hx of psychosis, catatonia. He is known to [facility] for similar presentation and has received ECT with good effect in the past. PLAN: continue per primary treatment team: Case reviewed with Dr. Sims he does not feel there is any different option at this time besides ECT. We did discuss restate belies in the patient and then trying TMS risk ketamine. Case reviewed with patient's healthcare proxy she clearly feels that patient has responded well to ECT generally understands limited options at this time feels that patient not able to make decision at this time The patient fell at 13:30 on Thursday. There is no changes in his mental status but he has a laceration on his left eye. We will order CT scan head and hospitalist consult. We also will place him on one-to-one. Plan: ativan and trazodone PRNs put in place as of 08/30 and 08/31 due to restlessness and agitation; the PRNs appear to be effective. Increase Zyprexa up to 7.5 mg p.o. q.h.s. Increase Pamelor up to 50 mg p.o. q.h.s. EKG tomorrow morning I spent minutes with the patient and/or on the patient floor today, greater than?50% of which was spent counseling/coordinating care. Reason for contiued inpatient stay Substantial Risk for: harm to self, inability to function, rapid decompensation and med/psych decompensation
--- NOTE | 2021-09-02 16:16 | MHC.CLN ---
F/U REVIEW OF WEIGHT HX SHOWS 08/17 WEIGHT AND 07/28 WEIGHT NOT WITHIN USUAL WEIGHT RANGE OVER 6 MONTHS. CURRENT WEIGHT 09/02=81.647 KG AND IS WITHIN RANGE X 10 MONTHS OF 80-84 KG.
[2021-09-02] MEDS: Nortriptyline HCl 25 MG CAPSULE 50 MG PO (22:15)
[2021-09-02] MEDS: Atorvastatin Calcium 40 MG TABLET PO (22:17)
[2021-09-02] MEDS: LORazepam 1 MG TABLET PO (22:18)
[2021-09-02] MEDS: Erythromycin Base 0.5% Oph Oin 1 GM TUBE 1 CM EYE-BOTH (22:18)
[2021-09-02] MEDS: traZODone HCL 50 MG TABLET PO (22:19)
[2021-09-02] MEDS: OLANZapine 7.5 MG TABLET PO (22:19)
[2021-09-03] MEDS: Omeprazole 20 MG CAPSULE.DR PO ×2 (06:50→06:51)
--- NOTE | 2021-09-03 11:33 | HO.PSYCHPN ---
Subjective Subjective Date of Service: 09/03/21 Reason For Visit: Recurrent major depressive D/O Severe Subjective Notes: Conditional Voluntary (Affirmed health care proxy) Interim History: The nursing staff reported that he slept poorly at night, he was sleeping most of the day yesterday after ECT. He needed PRN at 3 am at night. Today, he was in his bed, mostly sleepy, he reported not feeling well , no side effects with the increase of Pamelor and Zyprexa at hs. Medication Compliance: Yes Mental Status Exam Mental Status Exam Patient Appearance: Disheveled and Unkempt Patient Orientation: Person Level of Consciousness: Awake and Sedated Patient Behavior: Dependent, Guarded, Passive and Suspicious Mood Description: Depressed Affect Description: Constricted Patient Cognition Impaired: Yes Ability to Follow Directions: Fair Speech Pattern: Delayed Hallucinations: None Delusions: Paranoid Ideation Thought Process: Illogical and Distracted Thought Content: positive for Poverty of Content, positive for Loose Associations and positive for Thought Blocking Judgement: Fair Diagnostics Vital Signs (24Hr): Vital Signs - 24 hr 09/02/21 22:51 Temperature 98.4 F Pulse Rate 91 Respiratory Rate 18 Blood Pressure 117/71 Pulse Oximetry 98 Body Mass Index 25.8 Labs Results: 08/25/21 22:04 08/25/21 22:04 Imaging Radiology Impressions: ITS Impressions Chest X-Ray 08/20/21 10:00 IMPRESSION: 1. Lungs grossly clear. No infiltrate or effusion. 2. Hiatal hernia, approximately [address] 08/28/21 15:52 IMPRESSION: No acute intracranial findings. Atrophy and nonspecific periventricular white matter disease similar to previous exams. Medications Medications Current Medications Acetaminophen (Acetaminophen 325 Mg Tablet) 650 mg PO Q6H PRN PRN Reason: Headache/Pain Mild Scale (1-3) Last Admin: 08/30/21 17:55 Dose: 650 mg Documented by: Al Hydroxide/Mg Hydroxide (Magnesium Hydrox/Alum Hydrox 30 Ml Oral.Susp) 30 ml PO Q6H PRN PRN Reason: Heartburn/Nausea Apixaban (Apixaban 5 Mg Tablet) 5 mg PO BID [facility] Last Admin: 09/02/21 22:17 Dose: 5 mg Documented by: Atorvastatin Calcium (Atorvastatin Calcium 40 Mg Tablet) 40 mg PO BEDTIME [facility] Last Admin: 09/02/21 22:17 Dose: 40 mg Documented by: Benzonatate (Benzonatate 100 Mg Capsule) 100 mg PO TID PRN PRN Reason: cough Docusate Sodium (Docusate Sodium 100 Mg Capsule) 100 mg PO BID [facility] Last Admin: 09/02/21 22:17 Dose: 100 mg Documented by: Erythromycin (Erythromycin Base 0.5% Oph Oin 1 Gm Tube) 1 cm EYE-BOTH BID [facility] Last Admin: 09/02/21 22:18 Dose: 1 cm Documented by: Ferrous Sulfate (Ferrous Sulfate 324 Mg Tablet.) 324 mg PO DAILY [facility] Last Admin: 09/02/21 09:17 Dose: 324 mg Documented by: Hydroxyzine HCl (Hydroxyzine Hcl 25 Mg Tablet) 25 mg PO BEDTIME PRN PRN Reason: Anxiety Last Admin: 08/25/21 05:36 Dose: 25 mg Documented by: Lorazepam (Lorazepam 0.5 Mg Tablet) 0.5 mg PO TID@0800,1300,1800 [facility] Last Admin: 09/02/21 17:51 Dose: 0.5 mg Documented by: Lorazepam (Lorazepam 1 Mg Tablet) 1 mg PO BEDTIME [facility] Last Admin: 09/02/21 22:18 Dose: 1 mg Documented by: Magnesium Hydroxide (Milk Of Magnesia 30 Ml Oral.Susp) 30 ml PO DAILY PRN PRN Reason: Constipation Nortriptyline HCl (Nortriptyline Hcl 25 Mg Capsule) 50 mg PO BEDTIME [facility] Last Admin: 09/02/21 22:15 Dose: 50 mg Documented by: Olanzapine (Olanzapine 2.5 Mg Tablet) 1.25 mg PO DAILY PRN PRN Reason: Anxiety Last Admin: 09/01/21 11:18 Dose: 1.25 mg Documented by: Olanzapine (Olanzapine 7.5 Mg Tablet) 7.5 mg PO BEDTIME [facility] Last Admin: 09/02/21 22:19 Dose: 7.5 mg Documented by: Omeprazole (Omeprazole 20 Mg Capsule.) 20 mg PO DAILY@0630 [facility] Last Admin: 09/03/21 06:51 Dose: 20 mg Documented by: Oxybutynin Chloride (Oxybutynin Chloride Er 5 Mg Tab.Er.24) 5 mg PO DAILY [facility] Last Admin: 09/02/21 09:17 Dose: 5 mg Documented by: Trazodone HCl (Trazodone Hcl 50 Mg Tablet) 50 mg PO BEDTIME [facility] Last Admin: 09/02/21 22:19 Dose: 50 mg Documented by: Trazodone HCl (Trazodone Hcl 50 Mg Tablet) 50 mg PO BEDTIME PRN PRN Reason: insomnia Vitamin D (Cholecalciferol (Vitamin D3) 10 Mcg Tablet) 10 mcg PO DAILY [facility] Last Admin: 09/02/21 09:17 Dose: 10 mcg Documented by: Allergies Allergies Allergy/AdvReac Type Severity Reaction Status Date / Time No Known Allergies Allergy Verified 01/25/21 06:43 [No Known Allergies*] Assessment & Plan Assessment & Plan (1) Major depressive disorder, recurrent, severe with psychotic features: Status: Acute Code(s): F33.3 - Major depressive disorder, recurrent, severe with psychotic symptoms Assessment and Plan: José Luis is a 76 year old male who carries a dx of MDD, recurrent, severe with hx of psychosis, catatonia. He is known to [facility] for similar presentation and has received ECT with good effect in the past. Case reviewed with Dr. Sims he does not feel there is any different option at this time besides ECT. We did discuss restate belies in the patient and then trying TMS risk ketamine. Case reviewed with patient's healthcare proxy she clearly feels that patient has responded well to ECT generally understands limited options at this time feels that patient not able to make decision at this time The patient fell at 13:30 on Tuesday 08/28. There was no changes in his mental status but he had a laceration on his left eye. We ordered CT scan head and hospitalist consult that were normal. Since then, he was placed him on one-to-one. Plan: ativan and trazodone PRNs put in place as of 08/30 and 08/31 due to restlessness and agitation; the PRNs appear to be effective since he looked like to have catatonic features. Increase Zyprexa up to 7.5 mg p.o. q.h.s. Increase Pamelor up to 50 mg p.o. q.h.s. ECT tomorrow morning I spent minutes with the patient and/or on the patient floor today, greater than?50% of which was spent counseling/coordinating care. Reason for contiued inpatient stay Substantial Risk for: inability to function, rapid decompensation and med/psych decompensation
[2021-09-03] MEDS: Ferrous Sulfate 324 MG TABLET.DR PO (11:57)
[2021-09-03] MEDS: Docusate Sodium 100 MG CAPSULE PO ×2 (11:57→20:27)
[2021-09-03] MEDS: Cholecalciferol (Vitamin D3) 10 MCG TABLET PO (11:57)
[2021-09-03] MEDS: Erythromycin Base 0.5% Oph Oin 1 GM TUBE 1 CM EYE-BOTH ×2 (11:57→20:48)
[2021-09-03] MEDS: Apixaban 5 MG TABLET PO ×2 (11:57→20:47)
[2021-09-03] MEDS: LORazepam 0.5 MG TABLET PO ×2 (11:57→18:11)
--- NOTE | 2021-09-03 13:38 | MHC.SL.SWA ---
Speech Pathologist Impression: Risk of Aspiration Oralpharyngeal Dysphagia Risk of Aspiration Due to: Poor PO Intake Dysphasia Diet Status: Downgrade Liquid Consistency and Strategies for Safe Swallow: Liquid Intake Recommendation: Thin Liquid Intake Strategies: Small Sips No Straws Solid Food Consistency: Dietary Recommendations: Chopped/Advanced (NDD3) Additional Modifications to Solid Foods: Recommend continue on CHOPPED/ADVANCED (NDD3) solids and THIN liquids, with pills WHOLE in PUREE or LIQUID. Patient is observed to impulsively take quick sequential sips of liquid, which results in coughing episodes. Recommend total supervision to ensure aspiration precautions and to monitor tolerance. Patient may benefit from reminders to eat/drink with a slow pace, take individual sips, alternate bite of food with sip of liquid. Oral Medication Intake: Whole with Liquid Compensatory Strategies and Precautions to be Taken for Safe Swallow: Sitting Upright (90 deg) No Straw Liquids from Cup Liquids from Spoon Small Bites and Sips Alternate Liquids/Solids Rate of Ingestion Change Supervision While Eating and Drinking for Safe Swallow: Total Supervision (1:1) Foods to Avoid: Swallowing Recommended Treatments: Compens. Strategy Educat. Recommendation for Speech: Inpatient Speech Therapy Comment: Recommend continue on CHOPPED/ADVANCED (NDD3) solids and THIN liquids, with pills WHOLE in PUREE or LIQUID. On 09/03 assessment, Patient was observed to impulsively take quick sequential sips of liquid, which results in coughing episodes. Recommend total supervision to ensure aspiration precautions and to monitor tolerance. Patient may benefit from reminders to eat/drink with a slow pace, take individual sips, alternate bite of food with sip of liquid. morning. Frequency/Duration: Date Range for Service Req: Timeline to reassess: Technical Inspector Clinican/Clinical Fellow: No Supervisory Statement: I have reviewed and agree with the student/clinical fellow's documentation: N/A Speech Language Pathologist: Layne Castañeda M.A., CCC-PAPERBOARD MACHINE OPERATOR
[2021-09-03] MEDS: Atorvastatin Calcium 40 MG TABLET PO (20:27)
[2021-09-03] MEDS: OLANZapine 7.5 MG TABLET PO (20:30)
[2021-09-03] MEDS: traZODone HCL 50 MG TABLET PO (20:31)
[2021-09-03] MEDS: Nortriptyline HCl 25 MG CAPSULE 50 MG PO (20:39)
[2021-09-03 22:00] VITALS: BP 94/56; PULSE 84; RESP 17; TEMP 36.6; O2SAT 96
[2021-09-04] VITALS (11 sets, daily range): BP systolic 94–140; BP diastolic 50–82; PULSE 80–119; RESP 16–20; TEMP 36.3–37.2; O2SAT 93–98
--- NOTE | 2021-09-04 06:45 | HO.ANESPROP2 ---
[facility] Active Problems Active Problems: All Active Problems (Updated 08/21/21 @ 09:05 by Leila Bryson APRN) Major depressive disorder, recurrent, severe with psychotic features (Acute) Depression (Acute) Physical deconditioning (Acute) Preoperative cardiovascular examination (Acute) Anemia (Acute) GERD (gastroesophageal reflux disease) (Acute) Past Medical History Medical History COVID-19 vaccine administered Dementia Depression Diverticulitis of colon with perforation GERD (gastroesophageal reflux disease) History of electroconvulsive therapy HTN (hypertension) Hyperlipidemia Major depressive disorder, recurrent, severe with psychotic features Pulmonary embolism SVT (supraventricular tachycardia) Functional capacity: uses cane/walker Family History Family History Brother Blood clot in vein Other No history of cardiac disorder Family history of problems with anesthesia: No Surgical History Surgical History H/O colonoscopy H/O hernia repair History of colostomy reversal History of esophagogastroduodenoscopy (EGD) Status post Paula's procedure History of Problems with Anesthesia: No Social History Social History Household Members: Other Housing: Assisted Living Facility Are you a primary furnace caretaker to a significant other at home: No Do you presently have visiting nurse or other home services: No Alcohol intake: former Patient Tobacco Use Status: Never used Tobacco Second Hand Smoke Exposure: No Use of substances other than those prescribed or required for medical reasons: No Currently Displaying Signs/Symptoms of Drug Intoxication Withdrawal: No Have you been hit, kicked, punched, or otherwise hurt by someone within the past year? If so, by whom?: No Do you feel safe in your current relationship?: No Current Relationship Is there a partner from a previous relationship who is making you feel unsafe now?: No Are you made to feel afraid or neglected: No Spiritual Healthcare Practices: refusing to respond Uatsdin Healthcare Practices: refusing to respond Cultural Healthcare Practices: refusing to respond Are you DNR?: No Advance Directives: Yes Advance Directives Information Provided: No Advance Directives on File: Yes Advance Directives Date on File: 07/27/20 Do you have thoughts of harming others: None Do you have a plan to hurt others: No Plan Recently lost weight without trying: Unsure Poor oral hygiene: Yes service: Yes Current occupational status: retired Sexual orientation: Straight/Heterosexual Meds Allergies Allergy/AdvReac Type Severity Reaction Status Date / Time No Known Allergies Allergy Verified 01/25/21 06:43 [No Known Allergies*] Active Medications: Current Medications Acetaminophen (Acetaminophen 325 Mg Tablet) 650 mg PO Q6H PRN PRN Reason: Headache/Pain Mild Scale (1-3) Last Admin: 08/30/21 17:55 Dose: 650 mg Documented by: Al Hydroxide/Mg Hydroxide (Magnesium Hydrox/Alum Hydrox 30 Ml Oral.Susp) 30 ml PO Q6H PRN PRN Reason: Heartburn/Nausea Apixaban (Apixaban 5 Mg Tablet) 5 mg PO BID [facility] Last Admin: 09/03/21 20:47 Dose: 5 mg Documented by: Atorvastatin Calcium (Atorvastatin Calcium 40 Mg Tablet) 40 mg PO BEDTIME [facility] Last Admin: 09/03/21 20:27 Dose: 40 mg Documented by: Benzonatate (Benzonatate 100 Mg Capsule) 100 mg PO TID PRN PRN Reason: cough Docusate Sodium (Docusate Sodium 100 Mg Capsule) 100 mg PO BID [facility] Last Admin: 09/03/21 20:27 Dose: 100 mg Documented by: Erythromycin (Erythromycin Base 0.5% Oph Oin 1 Gm Tube) 1 cm EYE-BOTH BID [facility] Last Admin: 09/03/21 20:48 Dose: 1 cm Documented by: Ferrous Sulfate (Ferrous Sulfate 324 Mg Tablet.) 324 mg PO DAILY [facility] Last Admin: 09/03/21 11:57 Dose: 324 mg Documented by: Hydroxyzine HCl (Hydroxyzine Hcl 25 Mg Tablet) 25 mg PO BEDTIME PRN PRN Reason: Anxiety Last Admin: 08/25/21 05:36 Dose: 25 mg Documented by: Lorazepam (Lorazepam 0.5 Mg Tablet) 0.5 mg PO TID@0800,1300,1800 [facility] Last Admin: 09/03/21 18:11 Dose: 0.5 mg Documented by: Lorazepam (Lorazepam 1 Mg Tablet) 1 mg PO BEDTIME [facility] Last Admin: 09/03/21 21:44 Dose: Not Given Documented by: Magnesium Hydroxide (Milk Of Magnesia 30 Ml Oral.Susp) 30 ml PO DAILY PRN PRN Reason: Constipation Nortriptyline HCl (Nortriptyline Hcl 25 Mg Capsule) 50 mg PO BEDTIME [facility] Last Admin: 09/03/21 20:39 Dose: 50 mg Documented by: Olanzapine (Olanzapine 2.5 Mg Tablet) 1.25 mg PO DAILY PRN PRN Reason: Anxiety Last Admin: 09/01/21 11:18 Dose: 1.25 mg Documented by: Olanzapine (Olanzapine 7.5 Mg Tablet) 7.5 mg PO BEDTIME [facility] Last Admin: 09/03/21 20:30 Dose: 7.5 mg Documented by: Omeprazole (Omeprazole 20 Mg Capsule.Dr) 20 mg PO DAILY@0630 [facility] Last Admin: 09/03/21 06:51 Dose: 20 mg Documented by: Oxybutynin Chloride (Oxybutynin Chloride Er 5 Mg Tab.Er.24) 5 mg PO DAILY [facility] Last Admin: 09/03/21 12:10 Dose: 5 mg Documented by: Trazodone HCl (Trazodone Hcl 50 Mg Tablet) 50 mg PO BEDTIME [facility] Last Admin: 09/03/21 20:31 Dose: 50 mg Documented by: Trazodone HCl (Trazodone Hcl 50 Mg Tablet) 50 mg PO BEDTIME PRN PRN Reason: insomnia Vitamin D (Cholecalciferol (Vitamin D3) 10 Mcg Tablet) 10 mcg PO DAILY [facility] Last Admin: 09/03/21 11:57 Dose: 10 mcg Documented by: Home Medications Medication Instructions Recorded Confirmed Last Taken Type atorvastatin 40 mg tablet 1 tab PO BEDTIME 08/18/21 08/18/21 Unknown History benztropine 1 mg tablet 1 tab PO BID 08/18/21 08/18/21 Unknown History finasteride 5 mg tablet 1 tab PO DAILY 08/18/21 08/18/21 Unknown History fluoxetine 10 mg capsule 1 cap PO DAILY 08/18/21 08/18/21 Unknown History olanzapine 10 mg tablet 5 mg PO BEDTIME 08/18/21 08/18/21 Unknown History olanzapine 2.5 mg tablet 0.5 tab PO DAILY PRN 08/18/21 08/18/21 Unknown History omeprazole 20 mg capsule,delayed 1 cap PO DAILY 08/18/21 08/18/21 Unknown History release propranolol 10 mg tablet 1 tab PO TID PRN 08/18/21 08/18/21 Unknown History trazodone 50 mg tablet 50 mg PO BEDTIME 08/18/21 08/18/21 Unknown History Exam Exam Date and Time: September 04, 2021 0645 Height,Weight and Vital Signs: Height 5 ft 10 in Weight 81.647 kg Last Vital Signs Temp 98.3 F 09/04/21 06:26 Pulse 92 09/04/21 06:26 Resp 20 09/04/21 06:26 BP 125/80 09/04/21 06:26 Pulse Ox 95 09/04/21 06:26 Pertinent Lab Results Pertinent Lab Results: Laboratory Tests 08/17/21 08/17/21 08/17/21 20:30 20:31 20:31 WBC RBC Hgb Hct MCV MCH MCHC RDW Plt Count MPV Immature Gran % (Auto) Neut % (Auto) Lymph % (Auto) Phelps % (Auto) Eos % (Auto) Baso % (Auto) Lymph # (Auto) Phelps # (Auto) Eos # (Auto) Baso # (Auto) Abs Immat Gran (auto) Absolute Neuts (auto) Absolute Nucleated RBC Nucleated RBC % (auto) Sodium Potassium Chloride Carbon Dioxide Anion Gap BUN Creatinine Estim Creat Clear Calc Estimated GFR Random Glucose Estimat Average Glucose Hemoglobin A1c % Calcium Total Bilirubin AST ALT Alkaline Phosphatase Total Protein Albumin Triglycerides Cholesterol LDL Cholesterol, Calc HDL Cholesterol Vitamin B12 25-OH Vitamin D Total Folate TSH Urine Color YELLOW Urine Appearance HAZY Urine pH 6.0 Ur Specific [place] 1.025 Urine Protein NEG Urine Glucose (UA) NEG Urine Ketones NEG Urine Blood NEG Urine Nitrite NEG Ur Leukocyte Esterase NEG Urine Opiates Screen Not Detected Urine Fentanyl Screen POSITIVE H Ur Barbiturates Screen Not Detected Ur Phencyclidine Scrn Not Detected Ur Amphetamines Screen Not Detected U Benzodiazepines Scrn Not Detected Urine Cocaine Screen Not Detected U Marijuana (THC) Screen Not Detected Ethyl Alcohol COVID-19 ([facility]) Negative COVID-19 Clin Com See Note 08/17/21 08/17/21 08/17/21 21:16 21:16 21:17 WBC 5.4 RBC 4.22 L Hgb 14.0 Hct 40.9 L MCV 96.9 MCH 33.2 H MCHC 34.2 RDW 13.0 Plt Count 160 MPV 8.7 L Immature Gran % (Auto) 0.2 Neut % (Auto) 64.6 Lymph % (Auto) 21.5 Phelps % (Auto) 10.4 Eos % (Auto) 3.1 Baso % (Auto) 0.2 Lymph # (Auto) 1.2 Phelps # (Auto) 0.6 Eos # (Auto) 0.2 Baso # (Auto) 0.0 Abs Immat Gran (auto) 0.01 Absolute Neuts (auto) 3.5 Absolute Nucleated RBC 0.000 Nucleated RBC % (auto) 0.0 Sodium 143 Potassium 4.0 Chloride 108 Carbon Dioxide 27 Anion Gap 12 BUN 21 H Creatinine 1.03 Estim Creat Clear Calc 60.6 Estimated GFR > 60 Random Glucose 169 H Estimat Average Glucose Hemoglobin A1c % Calcium 9.7 D Total Bilirubin AST ALT Alkaline Phosphatase Total Protein Albumin Triglycerides Cholesterol LDL Cholesterol, Calc HDL Cholesterol Vitamin B12 25-OH Vitamin D Total Folate TSH Urine Color Urine Appearance Urine pH Ur Specific [place] Urine Protein Urine Glucose (UA) Urine Ketones Urine Blood Urine Nitrite Ur Leukocyte Esterase Urine Opiates Screen Urine Fentanyl Screen Ur Barbiturates Screen Ur Phencyclidine Scrn Ur Amphetamines Screen U Benzodiazepines Scrn Urine Cocaine Screen U Marijuana (THC) Screen Ethyl Alcohol < 10 COVID-19 ([facility]) COVID-19 Clin Com 08/19/21 08/20/21 08/20/21 09:11 08:25 08:25 WBC RBC Hgb Hct MCV MCH MCHC RDW Plt Count MPV Immature Gran % (Auto) Neut % (Auto) Lymph % (Auto) Phelps % (Auto) Eos % (Auto) Baso % (Auto) Lymph # (Auto) Phelps # (Auto) Eos # (Auto) Baso # (Auto) Abs Immat Gran (auto) Absolute Neuts (auto) Absolute Nucleated RBC Nucleated RBC % (auto) Sodium 140 Potassium 4.1 Chloride 106 Carbon Dioxide 19 L Anion Gap 19 BUN 30 H Creatinine 0.91 Estim Creat Clear Calc 68.6 Estimated GFR > 60 Random Glucose 84 D Estimat Average Glucose 120 Hemoglobin A1c % 5.8 Calcium 9.4 Total Bilirubin 1.4 H AST 23 ALT 22 Alkaline Phosphatase 124 H Total Protein 6.9 Albumin 4.3 Triglycerides 118 Cholesterol 153 LDL Cholesterol, Calc 90 HDL Cholesterol 40 Vitamin B12 25-OH Vitamin D Total 24.8 Folate TSH 0.60 Urine Color Urine Appearance Urine pH Ur Specific [place] Urine Protein Urine Glucose (UA) Urine Ketones Urine Blood Urine Nitrite Ur Leukocyte Esterase Urine Opiates Screen Urine Fentanyl Screen Ur Barbiturates Screen Ur Phencyclidine Scrn Ur Amphetamines Screen U Benzodiazepines Scrn Urine Cocaine Screen U Marijuana (THC) Screen Ethyl Alcohol COVID-19 ([facility]) Negative COVID-19 Clin Com See Note 08/20/21 08/25/21 08/25/21 08:25 22:04 22:04 WBC 5.6 RBC 4.05 L Hgb 13.8 L Hct 38.5 L MCV 95.1 MCH 34.1 H MCHC 35.8 RDW 13.2 Plt Count 165 MPV 8.7 L Immature Gran % (Auto) Neut % (Auto) Lymph % (Auto) Phelps % (Auto) Eos % (Auto) Baso % (Auto) Lymph # (Auto) Phelps # (Auto) Eos # (Auto) Baso # (Auto) Abs Immat Gran (auto) Absolute Neuts (auto) Absolute Nucleated RBC 0.000 Nucleated RBC % (auto) 0.0 Sodium 143 Potassium 3.6 Chloride 108 Carbon Dioxide 24 Anion Gap 15 BUN 34 H Creatinine 0.90 Estim Creat Clear Calc 69.4 Estimated GFR > 60 Random Glucose 115 D Estimat Average Glucose Hemoglobin A1c % Calcium 9.5 Total Bilirubin 1.3 H AST 32 ALT 34 Alkaline Phosphatase 121 H Total Protein 6.3 L Albumin 4.0 Triglycerides Cholesterol LDL Cholesterol, Calc HDL Cholesterol Vitamin B12 668 25-OH Vitamin D Total Folate 11.8 TSH Urine Color Urine Appearance Urine pH Ur Specific [place] Urine Protein Urine Glucose (UA) Urine Ketones Urine Blood Urine Nitrite Ur Leukocyte Esterase Urine Opiates Screen Urine Fentanyl Screen Ur Barbiturates Screen Ur Phencyclidine Scrn Ur Amphetamines Screen U Benzodiazepines Scrn Urine Cocaine Screen U Marijuana (THC) Screen Ethyl Alcohol COVID-19 ([facility]) COVID-19 Clin Com 08/25/21 22:35 WBC RBC Hgb Hct MCV MCH MCHC RDW Plt Count MPV Immature Gran % (Auto) Neut % (Auto) Lymph % (Auto) Phelps % (Auto) Eos % (Auto) Baso % (Auto) Lymph # (Auto) Phelps # (Auto) Eos # (Auto) Baso # (Auto) Abs Immat Gran (auto) Absolute Neuts (auto) Absolute Nucleated RBC Nucleated RBC % (auto) Sodium Potassium Chloride Carbon Dioxide Anion Gap BUN Creatinine Estim Creat Clear Calc Estimated GFR Random Glucose Estimat Average Glucose Hemoglobin A1c % Calcium Total Bilirubin AST ALT Alkaline Phosphatase Total Protein Albumin Triglycerides Cholesterol LDL Cholesterol, Calc HDL Cholesterol Vitamin B12 25-OH Vitamin D Total Folate TSH Urine Color YELLOW Urine Appearance CLEAR Urine pH 6.0 Ur Specific [place] >= 1.030 H Urine Protein TRACE Urine Glucose (UA) NEG Urine Ketones 5 Urine Blood NEG Urine Nitrite NEG Ur Leukocyte Esterase NEG Urine Opiates Screen Urine Fentanyl Screen Ur Barbiturates Screen Ur Phencyclidine Scrn Ur Amphetamines Screen U Benzodiazepines Scrn Urine Cocaine Screen U Marijuana (THC) Screen Ethyl Alcohol COVID-19 ([facility]) COVID-19 Clin Com Airway Mallampati Class: II TM Dist: >3cm Neck ROM: Full Denture: Upper Heart: rrr Lungs: cta Assessment and Plan Assessment Anesthesia Assessment: Anesthesia Plan Discussed and Chart Reviewed Final Anesthetic Review Family History of Problems with Anesthesia: No History of Problems with Anesthesia: No NPO: Yes ASA Class: III Final Preanesthetic Review: No Changes in Pt Med Stat, Meds/Allgs Chart Reviewed and Consent Obtained/Reviewed Patient Risk: Intermediate Procedure Risk: Intermediate Anesthetic Plan Anesthetic Plan: GA Disposition: Standard PACU
--- NOTE | 2021-09-04 07:05 | MHC.SHP ---
Pre-Procedural Eval Section A Date of Service: 09/04/21 The patient is an INPATIENT: Yes Changes since office visit: No Cold of Flu in the past 2 weeks, No New Medical Problems, No Changes in Medication and No Patient answered all questions The History & Physical has been completed within 30 days and I have reviewed it.: Yes Section B Chief Complaint: Recurrent major depressive D/O Severe Allergies: Allergies Allergy/AdvReac Type Severity Reaction Status Date / Time No Known Allergies Allergy Verified 01/25/21 06:43 [No Known Allergies*] Plan I have reviewed the history and physical and performed a pertinent physical examination on my patient. No changes have occurred unless specified.
--- NOTE | 2021-09-04 07:05 | HO.ECTPROC ---
ECT Procedure Note Diagnosis/Treatment Date of Service: 09/04/21 Diagnosis: Major Depressive Disorder Previous ECT Date: 09/02/21 Current Treatment Number: 3 Treatment: Series Interval Clinical Notes: 'the patient remains most of the time on bed, still dysphoric, he reported feeling depressed but slightly more active on the unit. ECT Settings Device: THYMATRON DGx Electrode Placement: Right Unilateral Program/Pulse Width: 0.50 Energy Percent: 100 Seizure Duration By EEG (in seconds): 0 (seizure activity seen until 32s, nor recorded on EEG machine) By Motor Observation (in seconds): 27 Medications Administration General Anesthetic: Etomidate (12) Muscle Relaxant: Succinylcholine (100) Ancillary Medications Anti-emetics: Zofran - Pre ECT Miscillaneous Medications: Propofol and Midazolam Airway Management Airway Management: Bag Mask Ventilation Treatment Recommendations No Changes Recommended: No change Pt Tolerated Procedure w/o Issue: Yes
[2021-09-04] MEDS: Omeprazole 20 MG CAPSULE.DR PO (09:07)
[2021-09-04] MEDS: Cholecalciferol (Vitamin D3) 10 MCG TABLET PO (09:07)
[2021-09-04] MEDS: Docusate Sodium 100 MG CAPSULE PO ×2 (09:07→20:10)
[2021-09-04] MEDS: LORazepam 0.5 MG TABLET PO ×3 (09:08→17:13)
[2021-09-04] MEDS: Apixaban 5 MG TABLET PO ×2 (09:08→20:10)
[2021-09-04] MEDS: Ferrous Sulfate 324 MG TABLET.DR PO (09:08)
--- NOTE | 2021-09-04 11:00 | P.PNPSI_ITS ---
Subjective Subjective Date of Service: 09/04/21 Reason For Visit: Recurrent major depressive D/O Severe Subjective Notes: Conditional Voluntary (by affirmed health care proxy) Interim History: The nursing staff reported that the patient had a shower and he was shaved yesterday with a lot of help by the staff. His speech and swallow consultation reported a risk of aspiration and that could change his discharge planning. As per his daughter, his cough is chronic. Today he had ECT and he looked a little brighter. On interview in the morning after the ECT, he was sedated and sleepy. The staff has noticed a slight brighter. Mental Status Exam Mental Status Exam Patient Appearance: Well Grooomed Patient Orientation: Person Level of Consciousness: Sedated and Lethargic Patient Behavior: Passive Mood Description: Withdrawn Affect Description: Calm Ability to Follow Directions: Fair Speech Pattern: Whisper Hallucinations: None Delusions: Not Present Thought Process: Distracted Thought Content: positive for Poverty of Content Depressive Symptoms: Difficulty Sleeping, Significant Weight Gain and Loss of Energy Judgement: Poor Diagnostics Vital Signs (24Hr): Vital Signs - 24 hr 09/03/21 22:00 09/04/21 05:45 09/04/21 06:26 Temperature 98 F 97.3 F 98.3 F Pulse Rate 84 84 92 Respiratory Rate 17 18 20 Blood Pressure 94/56 L 140/77 H 125/80 Pulse Oximetry 96 96 95 09/04/21 07:28 09/04/21 07:33 09/04/21 07:38 Temperature 98 F Pulse Rate 87 113 H 119 H Respiratory Rate 16 20 20 Blood Pressure 127/76 109/82 110/82 Pulse Oximetry 95 97 97 09/04/21 07:43 09/04/21 07:58 09/04/21 08:13 Temperature Pulse Rate 109 H 96 89 Respiratory Rate 20 18 18 Blood Pressure 111/81 111/81 107/67 Pulse Oximetry 96 93 94 09/04/21 08:24 09/04/21 08:56 Temperature 98 F 97.8 F Pulse Rate 86 88 Respiratory Rate 20 Blood Pressure 107/69 103/65 Pulse Oximetry 96 98 BMI result Body Mass Index 25.8 Labs Results: 08/25/21 22:04 08/25/21 22:04 Imaging Radiology Impressions: ITS Impressions Chest X-Ray 08/20/21 10:00 IMPRESSION: 1. Lungs grossly clear. No infiltrate or effusion. 2. Hiatal hernia, approximately [address] 08/28/21 15:52 IMPRESSION: No acute intracranial findings. Atrophy and nonspecific periventricular white matter disease similar to previous exams. Medications Medications Current Medications Acetaminophen (Acetaminophen 325 Mg Tablet) 650 mg PO Q6H PRN PRN Reason: Headache/Pain Mild Scale (1-3) Last Admin: 08/30/21 17:55 Dose: 650 mg Documented by: Al Hydroxide/Mg Hydroxide (Magnesium Hydrox/Alum Hydrox 30 Ml Oral.Susp) 30 ml PO Q6H PRN PRN Reason: Heartburn/Nausea Apixaban (Apixaban 5 Mg Tablet) 5 mg PO BID [facility] Last Admin: 09/04/21 09:08 Dose: 5 mg Documented by: Atorvastatin Calcium (Atorvastatin Calcium 40 Mg Tablet) 40 mg PO BEDTIME [facility] Last Admin: 09/03/21 20:27 Dose: 40 mg Documented by: Benzonatate (Benzonatate 100 Mg Capsule) 100 mg PO TID PRN PRN Reason: cough Docusate Sodium (Docusate Sodium 100 Mg Capsule) 100 mg PO BID [facility] Last Admin: 09/04/21 09:07 Dose: 100 mg Documented by: Erythromycin (Erythromycin Base 0.5% Oph Oin 1 Gm Tube) 1 cm EYE-BOTH BID [facility] Last Admin: 09/03/21 20:48 Dose: 1 cm Documented by: Ferrous Sulfate (Ferrous Sulfate 324 Mg Tablet.Dr) 324 mg PO DAILY [facility] Last Admin: 09/04/21 09:08 Dose: 324 mg Documented by: Hydroxyzine HCl (Hydroxyzine Hcl 25 Mg Tablet) 25 mg PO BEDTIME PRN PRN Reason: Anxiety Last Admin: 08/25/21 05:36 Dose: 25 mg Documented by: Lorazepam (Lorazepam 0.5 Mg Tablet) 0.5 mg PO TID@0800,1300,1800 [facility] Last Admin: 09/04/21 09:08 Dose: 0.5 mg Documented by: Lorazepam (Lorazepam 1 Mg Tablet) 1 mg PO BEDTIME [facility] Last Admin: 09/03/21 21:44 Dose: Not Given Documented by: Magnesium Hydroxide (Milk Of Magnesia 30 Ml Oral.Susp) 30 ml PO DAILY PRN PRN Reason: Constipation Nortriptyline HCl (Nortriptyline Hcl 25 Mg Capsule) 50 mg PO BEDTIME [facility] Last Admin: 09/03/21 20:39 Dose: 50 mg Documented by: Olanzapine (Olanzapine 2.5 Mg Tablet) 1.25 mg PO DAILY PRN PRN Reason: Anxiety Last Admin: 09/01/21 11:18 Dose: 1.25 mg Documented by: Olanzapine (Olanzapine 7.5 Mg Tablet) 7.5 mg PO BEDTIME [facility] Last Admin: 09/03/21 20:30 Dose: 7.5 mg Documented by: Omeprazole (Omeprazole 20 Mg Isacc.) 20 mg PO DAILY@0630 [facility] Last Admin: 09/04/21 09:07 Dose: 20 mg Documented by: Oxybutynin Chloride (Oxybutynin Chloride Er 5 Mg Tab.Er.24) 5 mg PO DAILY [facility] Last Admin: 09/04/21 09:07 Dose: 5 mg Documented by: Trazodone HCl (Trazodone Hcl 50 Mg Tablet) 50 mg PO BEDTIME [facility] Last Admin: 09/03/21 20:31 Dose: 50 mg Documented by: Trazodone HCl (Trazodone Hcl 50 Mg Tablet) 50 mg PO BEDTIME PRN PRN Reason: insomnia Vitamin D (Cholecalciferol (Vitamin D3) 10 Mcg Tablet) 10 mcg PO DAILY [facility] Last Admin: 09/04/21 09:07 Dose: 10 mcg Documented by: Allergies Allergies Allergy/AdvReac Type Severity Reaction Status Date / Time No Known Allergies Allergy Verified 01/25/21 06:43 [No Known Allergies*] Assessment & Plan Assessment & Plan (1) Major depressive disorder, recurrent, severe with psychotic features: Status: Acute Code(s): F33.3 - Major depressive disorder, recurrent, severe with psychotic symptoms Assessment and Plan: José Luis is a 76 year old male who carries a dx of MDD, recurrent, severe with hx of psychosis, catatonia. He is known to [facility] for similar presentation and has received ECT with good effect in the past. Case reviewed with Dr. Sims he does not feel there is any different option at this time besides ECT. We did discuss restate belies in the patient and then trying TMS risk ketamine. Case reviewed with patient's healthcare proxy she clearly feels that patient has responded well to ECT generally understands limited options at this time feels that patient not able to make decision at this time The patient fell at 13:30 on Tuesday 08/28. There was no changes in his mental status but he had a laceration on his left eye. We ordered CT scan head and hospitalist consult that were normal. Since then, he was placed him on one-to-one. Plan: ativan and trazodone PRNs put in place as of 08/30 and 08/31 due to restlessness and agitation; the PRNs appear to be effective since he looked like to have catatonic features. Increase Zyprexa up to 7.5 mg p.o. q.h.s. Increase Pamelor up to 50 mg p.o. q.h.s. ECT Thursday I spent minutes with the patient and/or on the patient floor today, greater than?50% of which was spent counseling/coordinating care. Reason for contiued inpatient stay Substantial Risk for: harm to self, inability to function, rapid decompensation and med/psych decompensation
--- NOTE | 2021-09-04 11:50 | MHC.SLORD ---
Speech Language Pathology Order Status: Arrived to pt's room for dysphagia treatment, though pt asleep. Pt's 1:1 sitter was present and reported that he has been eating. Current diet NDD3 CHOPPED solids with THIN liquids. [employer] will continue to follow pt.
[2021-09-04] MEDS: Atorvastatin Calcium 40 MG TABLET PO (20:10)
[2021-09-04] MEDS: OLANZapine 7.5 MG TABLET PO (20:10)
[2021-09-04] MEDS: LORazepam 1 MG TABLET PO (20:10)
[2021-09-04] MEDS: traZODone HCL 50 MG TABLET PO (20:10)
[2021-09-04] MEDS: Nortriptyline HCl 25 MG CAPSULE 50 MG PO (20:10)
[2021-09-04] MEDS: Erythromycin Base 0.5% Oph Oin 1 GM TUBE 1 CM EYE-BOTH (20:14)
[2021-09-05 07:00] VITALS: BMI 26.0
[2021-09-05 08:31] VITALS: BP 111/76; PULSE 86; RESP 18; TEMP 36.8; O2SAT 93
[2021-09-05] MEDS: Docusate Sodium 100 MG CAPSULE PO ×2 (09:58→21:02)
[2021-09-05] MEDS: Apixaban 5 MG TABLET PO ×2 (09:59→21:02)
[2021-09-05] MEDS: Omeprazole 20 MG CAPSULE.DR PO (09:59)
[2021-09-05] MEDS: Ferrous Sulfate 324 MG TABLET.DR PO (09:59)
[2021-09-05] MEDS: Erythromycin Base 0.5% Oph Oin 1 GM TUBE 1 CM EYE-BOTH ×2 (10:00→21:02)
[2021-09-05] MEDS: Cholecalciferol (Vitamin D3) 10 MCG TABLET PO (10:00)
--- NOTE | 2021-09-05 12:00 | MHC.SLORD ---
Speech Language Pathology Order Status: [employer] called and spoke to RN on unit. Patient is reportedly tolerating current diet consistencies chopped/advanced (NDD3) solids and thin liquids without any difficulties. Due to impulsive eating behaviors, patient is recommended total supervision during meals and aspiration precautions. [employer] will continue to follow.
--- NOTE | 2021-09-05 16:03 | P.PNPSI_ITS ---
Subjective Subjective Date of Service: 09/05/21 Reason For Visit: Recurrent major depressive D/O Severe Subjective Notes: Conditional Voluntary Interim History: The nursing staff reported that the patient has been med compliant, he remains on one-to-one observation for safety. The staff has also reported that after ECT he has been better, with a brighter affect. On interview, the patient was on his bed refused to engage into the conversation and he stated that he was not feeling well. Mental Status Exam Mental Status Exam Patient Appearance: Well Grooomed and Unkempt Patient Orientation: Person and Situation Level of Consciousness: Awake and Obtunded Patient Behavior: Suspicious Mood Description: Depressed Affect Description: Constricted Patient Cognition Impaired: No Ability to Follow Directions: Fair Speech Pattern: Delayed and Long Pauses Hallucinations: None Delusions: Not Present Thought Process: Slowed Thinking Thought Content: positive for Poverty of Content and positive for Thought Blocking Judgement: Poor Diagnostics Vital Signs (24Hr): Vital Signs - 24 hr 09/04/21 19:48 09/05/21 08:31 Temperature 98.9 F 98.3 F Pulse Rate 80 86 Respiratory Rate 18 18 Blood Pressure 94/50 L 111/76 Pulse Oximetry 94 93 BMI result Body Mass Index 26.0 Labs Results: 08/25/21 22:04 08/25/21 22:04 Imaging Radiology Impressions: ITS Impressions Chest X-Ray 08/20/21 10:00 IMPRESSION: 1. Lungs grossly clear. No infiltrate or effusion. 2. Hiatal hernia, approximately [address] 08/28/21 15:52 IMPRESSION: No acute intracranial findings. Atrophy and nonspecific periventricular white matter disease similar to previous exams. Medications Medications Current Medications Acetaminophen (Acetaminophen 325 Mg Tablet) 650 mg PO Q6H PRN PRN Reason: Headache/Pain Mild Scale (1-3) Last Admin: 08/30/21 17:55 Dose: 650 mg Documented by: Al Hydroxide/Mg Hydroxide (Magnesium Hydrox/Alum Hydrox 30 Ml Oral.Susp) 30 ml PO Q6H PRN PRN Reason: Heartburn/Nausea Apixaban (Apixaban 5 Mg Tablet) 5 mg PO BID [facility] Last Admin: 09/05/21 09:59 Dose: 5 mg Documented by: Atorvastatin Calcium (Atorvastatin Calcium 40 Mg Tablet) 40 mg PO BEDTIME [facility] Last Admin: 09/04/21 20:10 Dose: 40 mg Documented by: Benzonatate (Benzonatate 100 Mg Capsule) 100 mg PO TID PRN PRN Reason: cough Docusate Sodium (Docusate Sodium 100 Mg Capsule) 100 mg PO BID [facility] Last Admin: 09/05/21 09:58 Dose: 100 mg Documented by: Erythromycin (Erythromycin Base 0.5% Oph Oin 1 Gm Tube) 1 cm EYE-BOTH BID [facility] Last Admin: 09/05/21 10:00 Dose: 1 cm Documented by: Ferrous Sulfate (Ferrous Sulfate 324 Mg Tablet.) 324 mg PO DAILY [facility] Last Admin: 09/05/21 09:59 Dose: 324 mg Documented by: Hydroxyzine HCl (Hydroxyzine Hcl 25 Mg Tablet) 25 mg PO BEDTIME PRN PRN Reason: Anxiety Last Admin: 08/25/21 05:36 Dose: 25 mg Documented by: Magnesium Hydroxide (Milk Of Magnesia 30 Ml Oral.Susp) 30 ml PO DAILY PRN PRN Reason: Constipation Nortriptyline HCl (Nortriptyline Hcl 25 Mg Capsule) 50 mg PO BEDTIME [facility] Last Admin: 09/04/21 20:10 Dose: 50 mg Documented by: Olanzapine (Olanzapine 2.5 Mg Tablet) 1.25 mg PO DAILY PRN PRN Reason: Anxiety Last Admin: 09/01/21 11:18 Dose: 1.25 mg Documented by: Olanzapine (Olanzapine 7.5 Mg Tablet) 7.5 mg PO BEDTIME [facility] Last Admin: 09/04/21 20:10 Dose: 7.5 mg Documented by: Omeprazole (Omeprazole 20 Mg Capsule.) 20 mg PO DAILY@0630 [facility] Last Admin: 09/05/21 09:59 Dose: 20 mg Documented by: Oxybutynin Chloride (Oxybutynin Chloride Er 5 Mg Tab.Er.24) 5 mg PO DAILY [facility] Last Admin: 09/05/21 09:58 Dose: 5 mg Documented by: Trazodone HCl (Trazodone Hcl 50 Mg Tablet) 50 mg PO BEDTIME [facility] Last Admin: 09/04/21 20:10 Dose: 50 mg Documented by: Trazodone HCl (Trazodone Hcl 50 Mg Tablet) 50 mg PO BEDTIME PRN PRN Reason: insomnia Vitamin D (Cholecalciferol (Vitamin D3) 10 Mcg Tablet) 10 mcg PO DAILY [facility] Last Admin: 09/05/21 10:00 Dose: 10 mcg Documented by: Allergies Allergies Allergy/AdvReac Type Severity Reaction Status Date / Time No Known Allergies Allergy Verified 01/25/21 06:43 [No Known Allergies*] Assessment & Plan Assessment & Plan (1) Major depressive disorder, recurrent, severe with psychotic features: Status: Acute Code(s): F33.3 - Major depressive disorder, recurrent, severe with psychotic symptoms Assessment and Plan: José Luis is a 76 year old male who carries a dx of MDD, recurrent, severe with hx of psychosis, catatonia. He is known to [facility] for similar presentation and has received ECT with good effect in the past. Case reviewed with Dr. Sims he does not feel there is any different option at this time besides ECT. We did discuss restate belies in the patient and then trying TMS risk ketamine. Case reviewed with patient's healthcare proxy she clearly feels that patient has responded well to ECT generally understands limited options at this time feels that patient not able to make decision at this time The patient fell at 13:30 on Tuesday 08/28. There was no changes in his mental status but he had a laceration on his left eye. We ordered CT scan head and hospitalist consult that were normal. Since then, he was placed him on one-to-one. Plan: ativan and trazodone PRNs put in place as of 08/30 and 08/31 due to restlessness and agitation; the PRNs appear to be effective since he looked like to have catatonic features. Increase Zyprexa up to 7.5 mg p.o. q.h.s. Increase Pamelor up to 50 mg p.o. q.h.s. ECT Thursday morning EKG for Thursday to rule out elongation of QTC I spent minutes with the patient and/or on the patient floor today, greater than?50% of which was spent counseling/coordinating care. Reason for contiued inpatient stay Substantial Risk for: harm to self, inability to function, rapid decompensation and med/psych decompensation
--- NOTE | 2021-09-05 17:06 | MHC.SLORD ---
Speech Language Pathology Order Status: Attempted to see Pt this pm, however was sleeping. Sitter reports that Pt ate lunch and breakfast without difficulty, needed some reminders to drink/sip liquids. Will re-attempt to see Pt tomorrow.
[2021-09-05 19:51] VITALS: BP 105/57; PULSE 83; RESP 17; TEMP 36.4; O2SAT 98
[2021-09-05] MEDS: Nortriptyline HCl 25 MG CAPSULE 50 MG PO (21:02)
[2021-09-05] MEDS: traZODone HCL 50 MG TABLET PO (21:02)
[2021-09-05] MEDS: Atorvastatin Calcium 40 MG TABLET PO (21:02)
[2021-09-05] MEDS: OLANZapine 7.5 MG TABLET PO (21:02)
[2021-09-06] VITALS (10 sets, daily range): BP systolic 113–162; BP diastolic 68–99; PULSE 89–127; RESP 16–20; TEMP 36.4–37.3; O2SAT 95–100
--- NOTE | 2021-09-06 07:03 | HO.ANESPROP2 ---
[facility] Active Problems Active Problems: All Active Problems (Updated 08/21/21 @ 09:05 by Leila Bryson APRN) Major depressive disorder, recurrent, severe with psychotic features (Acute) Depression (Acute) Physical deconditioning (Acute) Preoperative cardiovascular examination (Acute) Anemia (Acute) GERD (gastroesophageal reflux disease) (Acute) Past Medical History Medical History COVID-19 vaccine administered Dementia Depression Diverticulitis of colon with perforation GERD (gastroesophageal reflux disease) History of electroconvulsive therapy HTN (hypertension) Hyperlipidemia Major depressive disorder, recurrent, severe with psychotic features Pulmonary embolism SVT (supraventricular tachycardia) Functional capacity: uses cane/walker Family History Family History Brother Blood clot in vein Other No history of cardiac disorder Family history of problems with anesthesia: No Surgical History Surgical History H/O colonoscopy H/O hernia repair History of colostomy reversal History of esophagogastroduodenoscopy (EGD) Status post Paula's procedure History of Problems with Anesthesia: No Social History Social History Household Members: Other Housing: Assisted Living Facility Are you a primary career consultant to a significant other at home: No Do you presently have visiting nurse or other home services: No Alcohol intake: former Patient Tobacco Use Status: Never used Tobacco Second Hand Smoke Exposure: No Use of substances other than those prescribed or required for medical reasons: No Currently Displaying Signs/Symptoms of Drug Intoxication Withdrawal: No Have you been hit, kicked, punched, or otherwise hurt by someone within the past year? If so, by whom?: No Do you feel safe in your current relationship?: No Current Relationship Is there a partner from a previous relationship who is making you feel unsafe now?: No Are you made to feel afraid or neglected: No Spiritual Healthcare Practices: refusing to respond [facility] Practices: refusing to respond Cultural Healthcare Practices: refusing to respond Are you DNR?: No Advance Directives: Yes Advance Directives Information Provided: No Advance Directives on File: Yes Advance Directives Date on File: 07/27/20 Do you have thoughts of harming others: None Do you have a plan to hurt others: No Plan Recently lost weight without trying: Unsure Poor oral hygiene: Yes service: Yes Current occupational status: retired Sexual orientation: Straight/Heterosexual Meds Allergies Allergy/AdvReac Type Severity Reaction Status Date / Time No Known Allergies Allergy Verified 01/25/21 06:43 [No Known Allergies*] Active Medications: Current Medications Acetaminophen (Acetaminophen 325 Mg Tablet) 650 mg PO Q6H PRN PRN Reason: Headache/Pain Mild Scale (1-3) Last Admin: 08/30/21 17:55 Dose: 650 mg Documented by: Al Hydroxide/Mg Hydroxide (Magnesium Hydrox/Alum Hydrox 30 Ml Oral.Susp) 30 ml PO Q6H PRN PRN Reason: Heartburn/Nausea Apixaban (Apixaban 5 Mg Tablet) 5 mg PO BID [facility] Last Admin: 09/05/21 21:02 Dose: 5 mg Documented by: Atorvastatin Calcium (Atorvastatin Calcium 40 Mg Tablet) 40 mg PO BEDTIME [facility] Last Admin: 09/05/21 21:02 Dose: 40 mg Documented by: Benzonatate (Benzonatate 100 Mg Capsule) 100 mg PO TID PRN PRN Reason: cough Docusate Sodium (Docusate Sodium 100 Mg Capsule) 100 mg PO BID [facility] Last Admin: 09/05/21 21:02 Dose: 100 mg Documented by: Erythromycin (Erythromycin Base 0.5% Oph Oin 1 Gm Tube) 1 cm EYE-BOTH BID [facility] Last Admin: 09/05/21 21:02 Dose: 1 cm Documented by: Ferrous Sulfate (Ferrous Sulfate 324 Mg Tablet.Dr) 324 mg PO DAILY [facility] Last Admin: 09/05/21 09:59 Dose: 324 mg Documented by: Hydroxyzine HCl (Hydroxyzine Hcl 25 Mg Tablet) 25 mg PO BEDTIME PRN PRN Reason: Anxiety Last Admin: 08/25/21 05:36 Dose: 25 mg Documented by: Lactated Ringer's (Lr) 1,000 mls @ 50 mls/hr IVCONT .Q20H [facility] Magnesium Hydroxide (Milk Of Magnesia 30 Ml Oral.Susp) 30 ml PO DAILY PRN PRN Reason: Constipation Nortriptyline HCl (Nortriptyline Hcl 25 Mg Capsule) 50 mg PO BEDTIME [facility] Last Admin: 09/05/21 21:02 Dose: 50 mg Documented by: Olanzapine (Olanzapine 2.5 Mg Tablet) 1.25 mg PO DAILY PRN PRN Reason: Anxiety Last Admin: 09/01/21 11:18 Dose: 1.25 mg Documented by: Olanzapine (Olanzapine 7.5 Mg Tablet) 7.5 mg PO BEDTIME [facility] Last Admin: 09/05/21 21:02 Dose: 7.5 mg Documented by: Omeprazole (Omeprazole 20 Mg Capsule.Dr) 20 mg PO DAILY@0630 [facility] Last Admin: 09/05/21 09:59 Dose: 20 mg Documented by: Oxybutynin Chloride (Oxybutynin Chloride Er 5 Mg Tab.Er.24) 5 mg PO DAILY [facility] Last Admin: 09/05/21 09:58 Dose: 5 mg Documented by: Trazodone HCl (Trazodone Hcl 50 Mg Tablet) 50 mg PO BEDTIME [facility] Last Admin: 09/05/21 21:02 Dose: 50 mg Documented by: Trazodone HCl (Trazodone Hcl 50 Mg Tablet) 50 mg PO BEDTIME PRN PRN Reason: insomnia Vitamin D (Cholecalciferol (Vitamin D3) 10 Mcg Tablet) 10 mcg PO DAILY [facility] Last Admin: 09/05/21 10:00 Dose: 10 mcg Documented by: Home Medications Medication Instructions Recorded Confirmed Last Taken Type atorvastatin 40 mg tablet 1 tab PO BEDTIME 08/18/21 08/18/21 Unknown History benztropine 1 mg tablet 1 tab PO BID 08/18/21 08/18/21 Unknown History finasteride 5 mg tablet 1 tab PO DAILY 08/18/21 08/18/21 Unknown History fluoxetine 10 mg capsule 1 cap PO DAILY 08/18/21 08/18/21 Unknown History olanzapine 10 mg tablet 5 mg PO BEDTIME 08/18/21 08/18/21 Unknown History olanzapine 2.5 mg tablet 0.5 tab PO DAILY PRN 08/18/21 08/18/21 Unknown History omeprazole 20 mg capsule,delayed 1 cap PO DAILY 08/18/21 08/18/21 Unknown History release propranolol 10 mg tablet 1 tab PO TID PRN 08/18/21 08/18/21 Unknown History trazodone 50 mg tablet 50 mg PO BEDTIME 08/18/21 08/18/21 Unknown History Exam Exam Date and Time: September 06, 2021 0703 Height,Weight and Vital Signs: Height 5 ft 10 in Weight 82.3 kg Last Vital Signs Temp 98.3 F 09/06/21 06:58 Pulse 110 H 09/06/21 06:58 Resp 18 09/06/21 06:58 BP 129/79 09/06/21 06:58 Pulse Ox 95 09/06/21 06:58 Pertinent Lab Results Pertinent Lab Results: Laboratory Tests 08/17/21 08/17/21 08/17/21 20:30 20:31 20:31 WBC RBC Hgb Hct MCV MCH MCHC RDW Plt Count MPV Immature Gran % (Auto) Neut % (Auto) Lymph % (Auto) Harding % (Auto) Eos % (Auto) Baso % (Auto) Lymph # (Auto) Harding # (Auto) Eos # (Auto) Baso # (Auto) Abs Immat Gran (auto) Absolute Neuts (auto) Absolute Nucleated RBC Nucleated RBC % (auto) Sodium Potassium Chloride Carbon Dioxide Anion Gap BUN Creatinine Estim Creat Clear Calc Estimated GFR Random Glucose Estimat Average Glucose Hemoglobin A1c % Calcium Total Bilirubin AST ALT Alkaline Phosphatase Total Protein Albumin Triglycerides Cholesterol LDL Cholesterol, Calc HDL Cholesterol Vitamin B12 25-OH Vitamin D Total Folate TSH Urine Color YELLOW Urine Appearance HAZY Urine pH 6.0 Ur Specific Mack 1.025 Urine Protein NEG Urine Glucose (UA) NEG Urine Ketones NEG Urine Blood NEG Urine Nitrite NEG Ur Leukocyte Esterase NEG Urine Opiates Screen Not Detected Urine Fentanyl Screen POSITIVE H Ur Barbiturates Screen Not Detected Ur Phencyclidine Scrn Not Detected Ur Amphetamines Screen Not Detected U Benzodiazepines Scrn Not Detected Urine Cocaine Screen Not Detected U Marijuana (THC) Screen Not Detected Ethyl Alcohol COVID-19 ([facility]) Negative COVID-19 Clin Com See Note 08/17/21 08/17/21 08/17/21 21:16 21:16 21:17 WBC 5.4 RBC 4.22 L Hgb 14.0 Hct 40.9 L MCV 96.9 MCH 33.2 H MCHC 34.2 RDW 13.0 Plt Count 160 MPV 8.7 L Immature Gran % (Auto) 0.2 Neut % (Auto) 64.6 Lymph % (Auto) 21.5 Harding % (Auto) 10.4 Eos % (Auto) 3.1 Baso % (Auto) 0.2 Lymph # (Auto) 1.2 Harding # (Auto) 0.6 Eos # (Auto) 0.2 Baso # (Auto) 0.0 Abs Immat Gran (auto) 0.01 Absolute Neuts (auto) 3.5 Absolute Nucleated RBC 0.000 Nucleated RBC % (auto) 0.0 Sodium 143 Potassium 4.0 Chloride 108 Carbon Dioxide 27 Anion Gap 12 BUN 21 H Creatinine 1.03 Estim Creat Clear Calc 60.6 Estimated GFR > 60 Random Glucose 169 H Estimat Average Glucose Hemoglobin A1c % Calcium 9.7 D Total Bilirubin AST ALT Alkaline Phosphatase Total Protein Albumin Triglycerides Cholesterol LDL Cholesterol, Calc HDL Cholesterol Vitamin B12 25-OH Vitamin D Total Folate TSH Urine Color Urine Appearance Urine pH Ur Specific Mack Urine Protein Urine Glucose (UA) Urine Ketones Urine Blood Urine Nitrite Ur Leukocyte Esterase Urine Opiates Screen Urine Fentanyl Screen Ur Barbiturates Screen Ur Phencyclidine Scrn Ur Amphetamines Screen U Benzodiazepines Scrn Urine Cocaine Screen U Marijuana (THC) Screen Ethyl Alcohol < 10 COVID-19 ([facility]) COVID-19 Clin Com 08/19/21 08/20/21 08/20/21 09:11 08:25 08:25 WBC RBC Hgb Hct MCV MCH MCHC RDW Plt Count MPV Immature Gran % (Auto) Neut % (Auto) Lymph % (Auto) Harding % (Auto) Eos % (Auto) Baso % (Auto) Lymph # (Auto) Harding # (Auto) Eos # (Auto) Baso # (Auto) Abs Immat Gran (auto) Absolute Neuts (auto) Absolute Nucleated RBC Nucleated RBC % (auto) Sodium 140 Potassium 4.1 Chloride 106 Carbon Dioxide 19 L Anion Gap 19 BUN 30 H Creatinine 0.91 Estim Creat Clear Calc 68.6 Estimated GFR > 60 Random Glucose 84 D Estimat Average Glucose 120 Hemoglobin A1c % 5.8 Calcium 9.4 Total Bilirubin 1.4 H AST 23 ALT 22 Alkaline Phosphatase 124 H Total Protein 6.9 Albumin 4.3 Triglycerides 118 Cholesterol 153 LDL Cholesterol, Calc 90 HDL Cholesterol 40 Vitamin B12 25-OH Vitamin D Total 24.8 Folate TSH 0.60 Urine Color Urine Appearance Urine pH Ur Specific Mack Urine Protein Urine Glucose (UA) Urine Ketones Urine Blood Urine Nitrite Ur Leukocyte Esterase Urine Opiates Screen Urine Fentanyl Screen Ur Barbiturates Screen Ur Phencyclidine Scrn Ur Amphetamines Screen U Benzodiazepines Scrn Urine Cocaine Screen U Marijuana (THC) Screen Ethyl Alcohol COVID-19 ([facility]) Negative COVID-19 Clin Com See Note 08/20/21 08/25/21 08/25/21 08:25 22:04 22:04 WBC 5.6 RBC 4.05 L Hgb 13.8 L Hct 38.5 L MCV 95.1 MCH 34.1 H MCHC 35.8 RDW 13.2 Plt Count 165 MPV 8.7 L Immature Gran % (Auto) Neut % (Auto) Lymph % (Auto) Harding % (Auto) Eos % (Auto) Baso % (Auto) Lymph # (Auto) Harding # (Auto) Eos # (Auto) Baso # (Auto) Abs Immat Gran (auto) Absolute Neuts (auto) Absolute Nucleated RBC 0.000 Nucleated RBC % (auto) 0.0 Sodium 143 Potassium 3.6 Chloride 108 Carbon Dioxide 24 Anion Gap 15 BUN 34 H Creatinine 0.90 Estim Creat Clear Calc 69.4 Estimated GFR > 60 Random Glucose 115 D Estimat Average Glucose Hemoglobin A1c % Calcium 9.5 Total Bilirubin 1.3 H AST 32 ALT 34 Alkaline Phosphatase 121 H Total Protein 6.3 L Albumin 4.0 Triglycerides Cholesterol LDL Cholesterol, Calc HDL Cholesterol Vitamin B12 668 25-OH Vitamin D Total Folate 11.8 TSH Urine Color Urine Appearance Urine pH Ur Specific Mack Urine Protein Urine Glucose (UA) Urine Ketones Urine Blood Urine Nitrite Ur Leukocyte Esterase Urine Opiates Screen Urine Fentanyl Screen Ur Barbiturates Screen Ur Phencyclidine Scrn Ur Amphetamines Screen U Benzodiazepines Scrn Urine Cocaine Screen U Marijuana (THC) Screen Ethyl Alcohol COVID-19 ([facility]) COVID-19 Clin Com 08/25/21 22:35 WBC RBC Hgb Hct MCV MCH MCHC RDW Plt Count MPV Immature Gran % (Auto) Neut % (Auto) Lymph % (Auto) Harding % (Auto) Eos % (Auto) Baso % (Auto) Lymph # (Auto) Harding # (Auto) Eos # (Auto) Baso # (Auto) Abs Immat Gran (auto) Absolute Neuts (auto) Absolute Nucleated RBC Nucleated RBC % (auto) Sodium Potassium Chloride Carbon Dioxide Anion Gap BUN Creatinine Estim Creat Clear Calc Estimated GFR Random Glucose Estimat Average Glucose Hemoglobin A1c % Calcium Total Bilirubin AST ALT Alkaline Phosphatase Total Protein Albumin Triglycerides Cholesterol LDL Cholesterol, Calc HDL Cholesterol Vitamin B12 25-OH Vitamin D Total Folate TSH Urine Color YELLOW Urine Appearance CLEAR Urine pH 6.0 Ur Specific Mack >= 1.030 H Urine Protein TRACE Urine Glucose (UA) NEG Urine Ketones 5 Urine Blood NEG Urine Nitrite NEG Ur Leukocyte Esterase NEG Urine Opiates Screen Urine Fentanyl Screen Ur Barbiturates Screen Ur Phencyclidine Scrn Ur Amphetamines Screen U Benzodiazepines Scrn Urine Cocaine Screen U Marijuana (THC) Screen Ethyl Alcohol COVID-19 ([facility]) COVID-19 Clin Com Airway Mallampati Class: II TM Dist: >3cm Neck ROM: Full Heart: rrr Lungs: cta Assessment and Plan Assessment Anesthesia Assessment: Anesthesia Plan Discussed and Chart Reviewed Final Anesthetic Review Family History of Problems with Anesthesia: No History of Problems with Anesthesia: No NPO: Yes ASA Class: III Final Preanesthetic Review: No Changes in Pt Med Stat, Meds/Allgs Chart Reviewed and Consent Obtained/Reviewed Patient Risk: Intermediate Procedure Risk: Intermediate Anesthetic Plan Anesthetic Plan: GA Disposition: Standard PACU
--- NOTE | 2021-09-06 07:52 | MHC.SHP ---
Pre-Procedural Eval Section A Date of Service: 09/06/21 The patient is an INPATIENT: Yes Changes since office visit: Yes Changes in Medication; No Cold of Flu in the past 2 weeks, No New Medical Problems and No Patient answered all questions The History & Physical has been completed within 30 days and I have reviewed it.: Yes Section B Chief Complaint: Recurrent major depressive D/O Severe Allergies: Allergies Allergy/AdvReac Type Severity Reaction Status Date / Time No Known Allergies Allergy Verified 01/25/21 06:43 [No Known Allergies*] Plan I have reviewed the history and physical and performed a pertinent physical examination on my patient. No changes have occurred unless specified.
--- NOTE | 2021-09-06 08:10 | HO.ECTPROC ---
ECT Procedure Note Diagnosis/Treatment Date of Service: 09/06/21 Diagnosis: Major Depressive Disorder and Catatonia Previous ECT Date: 09/04/21 Current Treatment Number: 4 Treatment: Series Interval Clinical Notes: pt with crowley affect more responsive ECT Settings Device: THYMATRON DGx Electrode Placement: Right Unilateral Program/Pulse Width: 0.50 Energy Percent: 100 Seizure Duration By EEG (in seconds): 44 Medications Administration General Anesthetic: Etomidate (12) Muscle Relaxant: Succinylcholine (100) Ancillary Medications Analgesics: Torodol - Pre ECT Anti-emetics: Zofran - Pre ECT Miscillaneous Medications: Propofol and Midazolam Airway Management Airway Management: Bag Mask Ventilation Treatment Recommendations No Changes Recommended: No change Pt Tolerated Procedure w/o Issue: Yes
[2021-09-06] MEDS: Docusate Sodium 100 MG CAPSULE PO ×2 (10:09→20:04)
[2021-09-06] MEDS: Cholecalciferol (Vitamin D3) 10 MCG TABLET PO (10:09)
[2021-09-06] MEDS: Apixaban 5 MG TABLET PO ×2 (10:09→20:04)
[2021-09-06] MEDS: Ferrous Sulfate 324 MG TABLET.DR PO (10:11)
[2021-09-06] MEDS: Erythromycin Base 0.5% Oph Oin 1 GM TUBE 1 CM EYE-BOTH ×2 (10:11→20:04)
--- NOTE | 2021-09-06 11:00 | ECG_ITS ---
Test Reason : qtc prolongation Blood Pressure : / mmHG Vent. Rate : 095 BPM Atrial Rate : 095 BPM P-R Int : 184 ms QRS Dur : 082 ms QT Int : 340 ms P-R-T Axes : 013 -51 -02 degrees QTc Int : 427 ms Normal sinus rhythm Left axis deviation Borderline ECG When compared with ECG of 20-AUG-2021 09:56, ST no longer depressed in Anterior leads Referred By: Tate Amaya Electronically Signed By:ZORA TILLMAN
--- NOTE | 2021-09-06 12:28 | P.PNPSI_ITS ---
Subjective Subjective Reason For Visit: Recurrent major depressive D/O Severe Diagnostics Vital Signs (24Hr): Vital Signs - 24 hr 09/05/21 19:51 09/06/21 04:19 09/06/21 06:58 Temperature 97.6 F 97.6 F 98.3 F Pulse Rate 83 102 H 110 H Respiratory Rate 17 18 18 Blood Pressure 105/57 L 137/90 H 129/79 Pulse Oximetry 98 96 95 09/06/21 08:30 09/06/21 08:35 09/06/21 08:40 Temperature 97.8 F Pulse Rate 96 116 H 127 H Respiratory Rate 16 16 18 Blood Pressure 162/90 H 119/75 126/84 Pulse Oximetry 100 96 99 09/06/21 08:45 09/06/21 09:00 09/06/21 09:15 Temperature 97.8 F Pulse Rate 106 H 122 H 100 Respiratory Rate 18 18 18 Blood Pressure 129/80 134/99 H 131/85 Pulse Oximetry 100 100 100 09/06/21 10:17 Temperature 98.1 F Pulse Rate 98 Respiratory Rate 20 Blood Pressure 120/82 Pulse Oximetry 96 BMI result Body Mass Index 26.0 Labs Results: 08/25/21 22:04 08/25/21 22:04 Imaging Radiology Impressions: ITS Impressions Chest X-Ray 08/20/21 10:00 IMPRESSION: 1. Lungs grossly clear. No infiltrate or effusion. 2. Hiatal hernia, approximately [address] 08/28/21 15:52 IMPRESSION: No acute intracranial findings. Atrophy and nonspecific periventricular white matter disease similar to previous exams. Medications Medications Current Medications Acetaminophen (Acetaminophen 325 Mg Tablet) 650 mg PO Q6H PRN PRN Reason: Headache/Pain Mild Scale (1-3) Last Admin: 08/30/21 17:55 Dose: 650 mg Documented by: Al Hydroxide/Mg Hydroxide (Magnesium Hydrox/Alum Hydrox 30 Ml Oral.Susp) 30 ml PO Q6H PRN PRN Reason: Heartburn/Nausea Apixaban (Apixaban 5 Mg Tablet) 5 mg PO BID [facility] Last Admin: 09/06/21 10:09 Dose: 5 mg Documented by: Atorvastatin Calcium (Atorvastatin Calcium 40 Mg Tablet) 40 mg PO BEDTIME [facility] Last Admin: 09/05/21 21:02 Dose: 40 mg Documented by: Benzonatate (Benzonatate 100 Mg Capsule) 100 mg PO TID PRN PRN Reason: cough Docusate Sodium (Docusate Sodium 100 Mg Capsule) 100 mg PO BID [facility] Last Admin: 09/06/21 10:09 Dose: 100 mg Documented by: Erythromycin (Erythromycin Base 0.5% Oph Oin 1 Gm Tube) 1 cm EYE-BOTH BID [facility] Last Admin: 09/06/21 10:11 Dose: 1 cm Documented by: Ferrous Sulfate (Ferrous Sulfate 324 Mg Tablet.) 324 mg PO DAILY [facility] Last Admin: 09/06/21 10:11 Dose: 324 mg Documented by: Hydroxyzine HCl (Hydroxyzine Hcl 25 Mg Tablet) 25 mg PO BEDTIME PRN PRN Reason: Anxiety Last Admin: 08/25/21 05:36 Dose: 25 mg Documented by: Magnesium Hydroxide (Milk Of Magnesia 30 Ml Oral.Susp) 30 ml PO DAILY PRN PRN Reason: Constipation Nortriptyline HCl (Nortriptyline Hcl 25 Mg Capsule) 50 mg PO BEDTIME [facility] Last Admin: 09/05/21 21:02 Dose: 50 mg Documented by: Olanzapine (Olanzapine 2.5 Mg Tablet) 1.25 mg PO DAILY PRN PRN Reason: Anxiety Last Admin: 09/01/21 11:18 Dose: 1.25 mg Documented by: Olanzapine (Olanzapine 7.5 Mg Tablet) 7.5 mg PO BEDTIME [facility] Last Admin: 09/05/21 21:02 Dose: 7.5 mg Documented by: Omeprazole (Omeprazole 20 Mg Capsule.) 20 mg PO DAILY@0630 [facility] Last Admin: 09/06/21 09:45 Dose: Not Given Documented by: Oxybutynin Chloride (Oxybutynin Chloride Er 5 Mg Tab.Er.24) 5 mg PO DAILY [facility] Last Admin: 09/06/21 10:09 Dose: 5 mg Documented by: Trazodone HCl (Trazodone Hcl 50 Mg Tablet) 50 mg PO BEDTIME [facility] Last Admin: 09/05/21 21:02 Dose: 50 mg Documented by: Trazodone HCl (Trazodone Hcl 50 Mg Tablet) 50 mg PO BEDTIME PRN PRN Reason: insomnia Vitamin D (Cholecalciferol (Vitamin D3) 10 Mcg Tablet) 10 mcg PO DAILY [facility] Last Admin: 09/06/21 10:09 Dose: 10 mcg Documented by: Allergies Allergies Allergy/AdvReac Type Severity Reaction Status Date / Time No Known Allergies Allergy Verified 01/25/21 06:43 [No Known Allergies*] Assessment & Plan Assessment & Plan (1) Major depressive disorder, recurrent, severe with psychotic features: Status: Acute Code(s): F33.3 - Major depressive disorder, recurrent, severe with psychotic symptoms Assessment and Plan: José Luis is a 76 year old male who carries a dx of MDD, recurrent, severe with hx of psychosis, catatonia. He is known to [facility] for similar presentation and has received ECT with good effect in the past. Case reviewed with Dr. Sims he does not feel there is any different option at this time besides ECT. We did discuss restate belies in the patient and then trying TMS risk ketamine. Case reviewed with patient's healthcare proxy she clearly feels that patient has responded well to ECT generally understands limited options at this time feels that patient not able to make decision at this time The patient fell at 13:30 on Tuesday 08/28. There was no changes in his mental status but he had a laceration on his left eye. We ordered CT scan head and hospitalist consult that were normal. Since then, he was placed him on one-to-one. Plan: ativan and trazodone PRNs put in place as of 08/30 and 08/31 due to restlessness and agitation; the PRNs appear to be effective since he looked like to have catatonic features. Increase Zyprexa up to 7.5 mg p.o. q.h.s. Increase Pamelor up to 50 mg p.o. q.h.s. ECT Thursday morning EKG for Thursday to rule out elongation of QTC I spent minutes with the patient and/or on the patient floor today, greater than?50% of which was spent counseling/coordinating care.
--- NOTE | 2021-09-06 12:28 | MHC.SLORD ---
Speech Language Pathology Order Status: Patient is on CHOPPED/ADVANCED (NDD3) solids and THIN liquids. [employer] arrived on unit and had discussion with patient's RN. RN reports that patient has been tolerating these consistencies without any issues. Main concern was patient's unsafe eating behaviors. Patient is impulsive, often taking large bites or chugging liquid, which resulted in episodes of coughing. Per RN, patient has been doing well with 1:1 sitter. Recommend continue CHOPPED/ADVANCED (NDD3) solids and THIN liquids with TOTAL supervision during all PO intake to monitor tolerance- Patient requires cues throughout meals, reminding him to take small bites/sips, take individual bites/sips, clear oral cavity before taking more bites. Continue aspiration precautions. Patient is on appropriate diet textures and is receiving 1:[address] intervention is no longer warranted. Please re-refer if any future concerns arise.
--- NOTE | 2021-09-06 13:24 | P.PNPSI_ITS ---
Subjective Subjective Date of Service: 09/06/21 Reason For Visit: Recurrent major depressive D/O Severe Subjective Notes: Conditional Voluntary Interim History: The nursing staff reported that the patient slept well. He had ECT today in the morning. On interview, the patient is shaved, neatly dressed more awake alert and cooperative with spontaneous speech. He looks much better after ECT. We had a EKG today with no QTC elongation since we started him on nortriptyline. On Thursday we will order nortriptyline level, lipid panel and other blood work. Mental Status Exam Mental Status Exam Patient Appearance: Well Grooomed Patient Orientation: Person Level of Consciousness: Awake and Alert Patient Behavior: Cooperative Mood Description: Withdrawn Affect Description: Constricted (His affect is brighter than before) Patient Cognition Impaired: Yes Ability to Follow Directions: Good Speech Pattern: Clear Memory Description: Intact Hallucinations: None Delusions: Not Present Thought Process: Distracted Thought Content: positive for Circumstantial Judgement: Fair Diagnostics Vital Signs (24Hr): Vital Signs - 24 hr 09/05/21 19:51 09/06/21 04:19 09/06/21 06:58 Temperature 97.6 F 97.6 F 98.3 F Pulse Rate 83 102 H 110 H Respiratory Rate 17 18 18 Blood Pressure 105/57 L 137/90 H 129/79 Pulse Oximetry 98 96 95 09/06/21 08:30 09/06/21 08:35 09/06/21 08:40 Temperature 97.8 F Pulse Rate 96 116 H 127 H Respiratory Rate 16 16 18 Blood Pressure 162/90 H 119/75 126/84 Pulse Oximetry 100 96 99 09/06/21 08:45 09/06/21 09:00 09/06/21 09:15 Temperature 97.8 F Pulse Rate 106 H 122 H 100 Respiratory Rate 18 18 18 Blood Pressure 129/80 134/99 H 131/85 Pulse Oximetry 100 100 100 09/06/21 10:17 Temperature 98.1 F Pulse Rate 98 Respiratory Rate 20 Blood Pressure 120/82 Pulse Oximetry 96 BMI result Body Mass Index 26.0 Labs Results: 08/25/21 22:04 08/25/21 22:04 Imaging Radiology Impressions: ITS Impressions Chest X-Ray 08/20/21 10:00 IMPRESSION: 1. Lungs grossly clear. No infiltrate or effusion. 2. Hiatal hernia, approximately [address] 08/28/21 15:52 IMPRESSION: No acute intracranial findings. Atrophy and nonspecific periventricular white matter disease similar to previous exams. Medications Medications Current Medications Acetaminophen (Acetaminophen 325 Mg Tablet) 650 mg PO Q6H PRN PRN Reason: Headache/Pain Mild Scale (1-3) Last Admin: 08/30/21 17:55 Dose: 650 mg Documented by: Al Hydroxide/Mg Hydroxide (Magnesium Hydrox/Alum Hydrox 30 Ml Oral.Susp) 30 ml PO Q6H PRN PRN Reason: Heartburn/Nausea Apixaban (Apixaban 5 Mg Tablet) 5 mg PO BID [facility] Last Admin: 09/06/21 10:09 Dose: 5 mg Documented by: Atorvastatin Calcium (Atorvastatin Calcium 40 Mg Tablet) 40 mg PO BEDTIME [facility] Last Admin: 09/05/21 21:02 Dose: 40 mg Documented by: Benzonatate (Benzonatate 100 Mg Capsule) 100 mg PO TID PRN PRN Reason: cough Docusate Sodium (Docusate Sodium 100 Mg Capsule) 100 mg PO BID [facility] Last Admin: 09/06/21 10:09 Dose: 100 mg Documented by: Erythromycin (Erythromycin Base 0.5% Oph Oin 1 Gm Tube) 1 cm EYE-BOTH BID [facility] Last Admin: 09/06/21 10:11 Dose: 1 cm Documented by: Ferrous Sulfate (Ferrous Sulfate 324 Mg Tablet.Dr) 324 mg PO DAILY [facility] Last Admin: 09/06/21 10:11 Dose: 324 mg Documented by: Hydroxyzine HCl (Hydroxyzine Hcl 25 Mg Tablet) 25 mg PO BEDTIME PRN PRN Reason: Anxiety Last Admin: 08/25/21 05:36 Dose: 25 mg Documented by: Magnesium Hydroxide (Milk Of Magnesia 30 Ml Oral.Susp) 30 ml PO DAILY PRN PRN Reason: Constipation Nortriptyline HCl (Nortriptyline Hcl 25 Mg Capsule) 50 mg PO BEDTIME [facility] Last Admin: 09/05/21 21:02 Dose: 50 mg Documented by: Olanzapine (Olanzapine 2.5 Mg Tablet) 1.25 mg PO DAILY PRN PRN Reason: Anxiety Last Admin: 09/01/21 11:18 Dose: 1.25 mg Documented by: Olanzapine (Olanzapine 7.5 Mg Tablet) 7.5 mg PO BEDTIME [facility] Last Admin: 09/05/21 21:02 Dose: 7.5 mg Documented by: Omeprazole (Omeprazole 20 Mg Capsule.) 20 mg PO DAILY@0630 [facility] Last Admin: 09/06/21 09:45 Dose: Not Given Documented by: Oxybutynin Chloride (Oxybutynin Chloride Er 5 Mg Tab.Er.24) 5 mg PO DAILY [facility] Last Admin: 09/06/21 10:09 Dose: 5 mg Documented by: Trazodone HCl (Trazodone Hcl 50 Mg Tablet) 50 mg PO BEDTIME [facility] Last Admin: 09/05/21 21:02 Dose: 50 mg Documented by: Trazodone HCl (Trazodone Hcl 50 Mg Tablet) 50 mg PO BEDTIME PRN PRN Reason: insomnia Vitamin D (Cholecalciferol (Vitamin D3) 10 Mcg Tablet) 10 mcg PO DAILY [facility] Last Admin: 09/06/21 10:09 Dose: 10 mcg Documented by: Allergies Allergies Allergy/AdvReac Type Severity Reaction Status Date / Time No Known Allergies Allergy Verified 01/25/21 06:43 [No Known Allergies*] Assessment & Plan Assessment & Plan (1) Major depressive disorder, recurrent, severe with psychotic features: Status: Acute Code(s): F33.3 - Major depressive disorder, recurrent, severe with psychotic symptoms Assessment and Plan: José Luis is a 76 year old male who carries a dx of MDD, recurrent, severe with hx of psychosis, catatonia. He is known to [facility] for similar presentation and has received ECT with good effect in the past. Case reviewed with Dr. Sims he does not feel there is any different option at this time besides ECT. We did discuss restate belies in the patient and then trying TMS risk ketamine. Case reviewed with patient's healthcare proxy she clearly feels that patient has responded well to ECT generally understands limited options at this time feels that patient not able to make decision at this time The patient fell at 13:30 on Tuesday 08/28. There was no changes in his mental status but he had a laceration on his left eye. We ordered CT scan head and hospitalist consult that were normal. Since then, he was placed him on one-to-one. Plan: ativan and trazodone PRNs put in place as of 08/30 and 08/31 due to restlessness and agitation; the PRNs appear to be effective since he looked like to have catatonic features. Keep Zyprexa up to 7.5 mg p.o. q.h.s. Keep Pamelor up to 50 mg p.o. q.h.s. ECT Thursday morning Regular blood work for Thursday I spent minutes with the patient and/or on the patient floor today, greater than?50% of which was spent counseling/coordinating care. Reason for contiued inpatient stay Substantial Risk for: harm to self, inability to function, rapid decompensation and med/psych decompensation
[2021-09-06] MEDS: traZODone HCL 50 MG TABLET PO (20:04)
[2021-09-06] MEDS: Nortriptyline HCl 25 MG CAPSULE 50 MG PO (20:04)
[2021-09-06] MEDS: OLANZapine 7.5 MG TABLET PO (20:04)
[2021-09-06] MEDS: Atorvastatin Calcium 40 MG TABLET PO (20:04)
[2021-09-07] MEDS: Omeprazole 20 MG CAPSULE.DR PO (06:27)
[2021-09-07] MEDS: Ferrous Sulfate 324 MG TABLET.DR PO (07:49)
[2021-09-07] MEDS: Cholecalciferol (Vitamin D3) 10 MCG TABLET PO (07:49)
[2021-09-07] MEDS: Docusate Sodium 100 MG CAPSULE PO ×2 (07:49→20:01)
[2021-09-07] MEDS: Apixaban 5 MG TABLET PO ×2 (07:51→20:01)
[2021-09-07] MEDS: Erythromycin Base 0.5% Oph Oin 1 GM TUBE 1 CM EYE-BOTH ×2 (07:51→20:01)
[2021-09-07] MEDS: Acetaminophen 325 MG TABLET 650 MG PO (07:54)
[2021-09-07 09:20] VITALS: BP 99/62; PULSE 93; RESP 16; TEMP 36.6; O2SAT 97
--- NOTE | 2021-09-07 13:44 | P.PNPSI_ITS ---
Subjective Subjective Date of Service: 09/07/21 Reason For Visit: Recurrent major depressive D/O Severe Subjective Notes: Conditional Voluntary Medical Problems Affecting Mental Status: No Interim History: Patient admitted with depression. Has undergone 2 sessions of ECT. Objectively as per staff is appearing a little bit brighter and out of room more. Patient still feels like he is depressed, with little improvement. Reports that ECT was helpful in the past and is therefore hopeful. denies SI, HI or psychosis. Is feeling supported by staff here. Sleep okay. Appetite okay with staff assistance. On one-to-one for falls risk and appreciative of same. has 3rd session of ECT schedule Thursday09/09/2021 Medication Compliance: Yes Side effects from medications: No Attending Groups: Intermittent Review of Systems Acute medical concerns: No Medical Review of Systems: unchanged Review of Systems: Nil of note Review of Systems Review of Systems unremarkable Mental Status Exam Mental Status Exam Patient Appearance: Well Grooomed Patient Orientation: Person Level of Consciousness: Awake and Alert Patient Behavior: Cooperative Mood Description: Withdrawn Affect Description: Constricted (His affect is brighter than before) Patient Cognition Impaired: Yes Ability to Follow Directions: Good Speech Pattern: Clear Memory Description: Intact Hallucinations: None Delusions: Not Present Thought Process: Intact Depressive Symptoms: Unhappiness Diagnostics Vital Signs (24Hr): Vital Signs - 24 hr 09/06/21 18:00 09/07/21 09:20 Temperature 99.1 F 97.8 F Pulse Rate 89 93 Respiratory Rate 17 16 Blood Pressure 113/68 99/62 Pulse Oximetry 97 97 BMI result Body Mass Index 26.0 Labs Results: 08/25/21 22:04 08/25/21 22:04 Imaging Radiology Impressions: ITS Impressions Chest X-Ray 08/20/21 10:00 IMPRESSION: 1. Lungs grossly clear. No infiltrate or effusion. 2. Hiatal hernia, approximately [address] 08/28/21 15:52 IMPRESSION: No acute intracranial findings. Atrophy and nonspecific periventricular white matter disease similar to previous exams. Medications Medications Current Medications Acetaminophen (Acetaminophen 325 Mg Tablet) 650 mg PO Q6H PRN PRN Reason: Headache/Pain Mild Scale (1-3) Last Admin: 09/07/21 07:54 Dose: 650 mg Documented by: Al Hydroxide/Mg Hydroxide (Magnesium Hydrox/Alum Hydrox 30 Ml Oral.Susp) 30 ml PO Q6H PRN PRN Reason: Heartburn/Nausea Apixaban (Apixaban 5 Mg Tablet) 5 mg PO BID [facility] Last Admin: 09/07/21 07:51 Dose: 5 mg Documented by: Atorvastatin Calcium (Atorvastatin Calcium 40 Mg Tablet) 40 mg PO BEDTIME [facility] Last Admin: 09/06/21 20:04 Dose: 40 mg Documented by: Benzonatate (Benzonatate 100 Mg Capsule) 100 mg PO TID PRN PRN Reason: cough Docusate Sodium (Docusate Sodium 100 Mg Capsule) 100 mg PO BID [facility] Last Admin: 09/07/21 07:49 Dose: 100 mg Documented by: Erythromycin (Erythromycin Base 0.5% Oph Oin 1 Gm Tube) 1 cm EYE-BOTH BID [facility] Last Admin: 09/07/21 07:51 Dose: 1 cm Documented by: Ferrous Sulfate (Ferrous Sulfate 324 Mg Tablet.) 324 mg PO DAILY [facility] Last Admin: 09/07/21 07:49 Dose: 324 mg Documented by: Hydroxyzine HCl (Hydroxyzine Hcl 25 Mg Tablet) 25 mg PO BEDTIME PRN PRN Reason: Anxiety Last Admin: 08/25/21 05:36 Dose: 25 mg Documented by: Magnesium Hydroxide (Milk Of Magnesia 30 Ml Oral.Susp) 30 ml PO DAILY PRN PRN Reason: Constipation Nortriptyline HCl (Nortriptyline Hcl 25 Mg Capsule) 50 mg PO BEDTIME [facility] Last Admin: 09/06/21 20:04 Dose: 50 mg Documented by: Olanzapine (Olanzapine 2.5 Mg Tablet) 1.25 mg PO DAILY PRN PRN Reason: Anxiety Last Admin: 09/01/21 11:18 Dose: 1.25 mg Documented by: Olanzapine (Olanzapine 7.5 Mg Tablet) 7.5 mg PO BEDTIME [facility] Last Admin: 09/06/21 20:04 Dose: 7.5 mg Documented by: Omeprazole (Omeprazole 20 Mg Capsule.) 20 mg PO DAILY@0630 [facility] Last Admin: 09/07/21 06:27 Dose: 20 mg Documented by: Oxybutynin Chloride (Oxybutynin Chloride Er 5 Mg Tab.Er.24) 5 mg PO DAILY [facility] Last Admin: 09/07/21 07:49 Dose: 5 mg Documented by: Trazodone HCl (Trazodone Hcl 50 Mg Tablet) 50 mg PO BEDTIME [facility] Last Admin: 09/06/21 20:04 Dose: 50 mg Documented by: Trazodone HCl (Trazodone Hcl 50 Mg Tablet) 50 mg PO BEDTIME PRN PRN Reason: insomnia Vitamin D (Cholecalciferol (Vitamin D3) 10 Mcg Tablet) 10 mcg PO DAILY [facility] Last Admin: 09/07/21 07:49 Dose: 10 mcg Documented by: Allergies Allergies Allergy/AdvReac Type Severity Reaction Status Date / Time No Known Allergies Allergy Verified 01/25/21 06:43 [No Known Allergies*] Assessment & Plan Assessment & Plan (1) Major depressive disorder, recurrent, severe with psychotic features: Status: Acute Code(s): F33.3 - Major depressive disorder, recurrent, severe with psychotic symptoms Assessment and Plan: José Luis is a 76 year old male who carries a dx of MDD, recurrent, severe with hx of psychosis, catatonia. He is known to [facility] for similar presentation and has received ECT with good effect in the past. Case reviewed with Dr. Sims he does not feel there is any different option at this time besides ECT. We did discuss restate belies in the patient and then trying TMS risk ketamine. Case reviewed with patient's healthcare proxy she clearly feels that patient has responded well to ECT generally understands limited options at this time feels that patient not able to make decision at this time The patient fell at 13:30 on Tuesday 08/28. There was no changes in his mental status but he had a laceration on his left eye. We ordered CT scan head and hospitalist consult that were normal. Since then, he was placed him on one-to-one. Plan: ativan and trazodone PRNs put in place as of 08/30 and 08/31 due to restlessness and agitation; the PRNs appear to be effective since he looked like to have catatonic features. Keep Zyprexa up to 7.5 mg p.o. q.h.s. Keep Pamelor up to 50 mg p.o. q.h.s. ECT Thursday morning Regular blood work for Thursday09/07/2021: No change to primary team treatment plan, continue ECT 09/09/2021. one-to-one maintained for falls risk I spent minutes with the patient and/or on the patient floor today, greater than?50% of which was spent counseling/coordinating care. Reason for contiued inpatient stay Substantial Risk for: inability to function
[2021-09-07 18:00] VITALS: BP 120/83; PULSE 95; RESP 18; TEMP 36.8; O2SAT 96
[2021-09-07] MEDS: Atorvastatin Calcium 40 MG TABLET PO (20:01)
[2021-09-07] MEDS: OLANZapine 7.5 MG TABLET PO (20:01)
[2021-09-07] MEDS: traZODone HCL 50 MG TABLET PO (20:01)
[2021-09-07] MEDS: Nortriptyline HCl 25 MG CAPSULE 50 MG PO (20:01)
[2021-09-08] MEDS: Omeprazole 20 MG CAPSULE.DR PO (06:45)
[2021-09-08] MEDS: Docusate Sodium 100 MG CAPSULE PO ×2 (07:42→20:34)
[2021-09-08] MEDS: Cholecalciferol (Vitamin D3) 10 MCG TABLET PO (07:42)
[2021-09-08] MEDS: Ferrous Sulfate 324 MG TABLET.DR PO (07:43)
[2021-09-08] MEDS: Erythromycin Base 0.5% Oph Oin 1 GM TUBE 1 CM EYE-BOTH ×2 (07:43→20:34)
[2021-09-08] MEDS: Apixaban 5 MG TABLET PO ×2 (07:43→20:33)
[2021-09-08 08:19] VITALS: BP 106/58; PULSE 95; RESP 16; TEMP 36.2; O2SAT 97
--- NOTE | 2021-09-08 10:28 | HO.PSYCHPN ---
Subjective Subjective Date of Service: 09/08/21 Reason For Visit: Recurrent major depressive D/O Severe Subjective Notes: Conditional Voluntary Medical Problems Affecting Mental Status: No Interim History: Reports still feeling depressed with little change. Hopeful that ECT will improve mood. Slept better last night. Appetite OK. Does seem a little irritable. Denied SI. Self care could be better. Medication Compliance: Yes Side effects from medications: No Attending Groups: Yes Review of Systems Acute medical concerns: No Review of Systems Review of Systems unremarkable Mental Status Exam Mental Status Exam Patient Appearance: Unkempt Patient Orientation: Person Level of Consciousness: Awake and Alert Patient Behavior: Cooperative Mood Description: Withdrawn Affect Description: Constricted (His affect is brighter than before) Patient Cognition Impaired: Yes Ability to Follow Directions: Good Speech Pattern: Clear Memory Description: Intact Diagnostics Vital Signs (24Hr): Vital Signs - 24 hr 09/07/21 18:00 09/08/21 08:19 Temperature 98.2 F 97.1 F Pulse Rate 95 95 Respiratory Rate 18 16 Blood Pressure 120/83 106/58 L Pulse Oximetry 96 97 BMI result Body Mass Index 26.0 Labs Results: 08/25/21 22:04 08/25/21 22:04 Imaging Radiology Impressions: ITS Impressions Chest X-Ray 08/20/21 10:00 IMPRESSION: 1. Lungs grossly clear. No infiltrate or effusion. 2. Hiatal hernia, approximately [address] 08/28/21 15:52 IMPRESSION: No acute intracranial findings. Atrophy and nonspecific periventricular white matter disease similar to previous exams. Medications Medications Current Medications Acetaminophen (Acetaminophen 325 Mg Tablet) 650 mg PO Q6H PRN PRN Reason: Headache/Pain Mild Scale (1-3) Last Admin: 09/07/21 07:54 Dose: 650 mg Documented by: Al Hydroxide/Mg Hydroxide (Magnesium Hydrox/Alum Hydrox 30 Ml Oral.Susp) 30 ml PO Q6H PRN PRN Reason: Heartburn/Nausea Apixaban (Apixaban 5 Mg Tablet) 5 mg PO BID [facility] Last Admin: 09/08/21 07:43 Dose: 5 mg Documented by: Atorvastatin Calcium (Atorvastatin Calcium 40 Mg Tablet) 40 mg PO BEDTIME [facility] Last Admin: 09/07/21 20:01 Dose: 40 mg Documented by: Benzonatate (Benzonatate 100 Mg Capsule) 100 mg PO TID PRN PRN Reason: cough Docusate Sodium (Docusate Sodium 100 Mg Capsule) 100 mg PO BID [facility] Last Admin: 09/08/21 07:42 Dose: 100 mg Documented by: Erythromycin (Erythromycin Base 0.5% Oph Oin 1 Gm Tube) 1 cm EYE-BOTH BID [facility] Last Admin: 09/08/21 07:43 Dose: 1 cm Documented by: Ferrous Sulfate (Ferrous Sulfate 324 Mg Tablet.) 324 mg PO DAILY [facility] Last Admin: 09/08/21 07:43 Dose: 324 mg Documented by: Hydroxyzine HCl (Hydroxyzine Hcl 25 Mg Tablet) 25 mg PO BEDTIME PRN PRN Reason: Anxiety Last Admin: 08/25/21 05:36 Dose: 25 mg Documented by: Magnesium Hydroxide (Milk Of Magnesia 30 Ml Oral.Susp) 30 ml PO DAILY PRN PRN Reason: Constipation Nortriptyline HCl (Nortriptyline Hcl 25 Mg Capsule) 50 mg PO BEDTIME [facility] Last Admin: 09/07/21 20:01 Dose: 50 mg Documented by: Olanzapine (Olanzapine 2.5 Mg Tablet) 1.25 mg PO DAILY PRN PRN Reason: Anxiety Last Admin: 09/01/21 11:18 Dose: 1.25 mg Documented by: Olanzapine (Olanzapine 7.5 Mg Tablet) 7.5 mg PO BEDTIME [facility] Last Admin: 09/07/21 20:01 Dose: 7.5 mg Documented by: Omeprazole (Omeprazole 20 Mg Capsule.) 20 mg PO DAILY@0630 [facility] Last Admin: 09/08/21 06:45 Dose: 20 mg Documented by: Oxybutynin Chloride (Oxybutynin Chloride Er 5 Mg Tab.Er.24) 5 mg PO DAILY [facility] Last Admin: 09/08/21 07:41 Dose: 5 mg Documented by: Trazodone HCl (Trazodone Hcl 50 Mg Tablet) 50 mg PO BEDTIME [facility] Last Admin: 09/07/21 20:01 Dose: 50 mg Documented by: Trazodone HCl (Trazodone Hcl 50 Mg Tablet) 50 mg PO BEDTIME PRN PRN Reason: insomnia Vitamin D (Cholecalciferol (Vitamin D3) 10 Mcg Tablet) 10 mcg PO DAILY [facility] Last Admin: 09/08/21 07:42 Dose: 10 mcg Documented by: Allergies Allergies Allergy/AdvReac Type Severity Reaction Status Date / Time No Known Allergies Allergy Verified 01/25/21 06:43 [No Known Allergies*] Assessment & Plan Assessment & Plan (1) Major depressive disorder, recurrent, severe with psychotic features: Status: Acute Code(s): F33.3 - Major depressive disorder, recurrent, severe with psychotic symptoms Assessment and Plan: José Luis is a 76 year old male who carries a dx of MDD, recurrent, severe with hx of psychosis, catatonia. He is known to [facility] for similar presentation and has received ECT with good effect in the past. Case reviewed with Dr. Sims he does not feel there is any different option at this time besides ECT. We did discuss restate belies in the patient and then trying TMS risk ketamine. Case reviewed with patient's healthcare proxy she clearly feels that patient has responded well to ECT generally understands limited options at this time feels that patient not able to make decision at this time The patient fell at 13:30 on Tuesday 08/28. There was no changes in his mental status but he had a laceration on his left eye. We ordered CT scan head and hospitalist consult that were normal. Since then, he was placed him on one-to-one. Plan: ativan and trazodone PRNs put in place as of 08/30 and 08/31 due to restlessness and agitation; the PRNs appear to be effective since he looked like to have catatonic features. Keep Zyprexa up to 7.5 mg p.o. q.h.s. Keep Pamelor up to 50 mg p.o. q.h.s. ECT Thursday morning Regular blood work for Thursday09/08/2021: No change to primary team treatment plan, continue ECT 09/09/2021. one-to-one maintained for falls risk I spent minutes with the patient and/or on the patient floor today, greater than?50% of which was spent counseling/coordinating care. Reason for contiued inpatient stay Substantial Risk for: inability to function
--- NOTE | 2021-09-08 12:18 | HO.POSTANES ---
Post Anesthesia Evaluation Post Anesthesia Evaluation Vital Signs: Vital Signs Temp Pulse Resp BP Pulse Ox 09/08/21 08:19 97.1 F 95 16 106/58 L 97 Anesthesia: General Mental Status: Awake Pain Control: Satisfactory Nausea/Vomiting: None Hydration: Adequate Anesthesia-Related Issues: No Anes. Related Issues
[2021-09-08] MEDS: Milk of Magnesia 30 ML ORAL.SUSP PO (12:46)
[2021-09-08 18:00] VITALS: BP 127/75; PULSE 96; RESP 18; TEMP 36.6; O2SAT 98
[2021-09-08] MEDS: Atorvastatin Calcium 40 MG TABLET PO (20:33)
[2021-09-08] MEDS: Nortriptyline HCl 25 MG CAPSULE 50 MG PO (20:34)
[2021-09-08] MEDS: OLANZapine 7.5 MG TABLET PO (20:34)
[2021-09-08] MEDS: traZODone HCL 50 MG TABLET PO (20:34)
[2021-09-09] VITALS (12 sets, daily range): BP systolic 106–147; BP diastolic 40–81; PULSE 89–104; RESP 14–22; TEMP 36.2–37.4; O2SAT 95–97
--- NOTE | 2021-09-09 06:47 | P.CONAN_ITS ---
[facility] Active Problems Active Problems: All Active Problems (Updated 08/21/21 @ 09:05 by Leila Oneill APRN) Major depressive disorder, recurrent, severe with psychotic features (Acute) Depression (Acute) Physical deconditioning (Acute) Preoperative cardiovascular examination (Acute) Anemia (Acute) GERD (gastroesophageal reflux disease) (Acute) Past Medical History Medical History COVID-19 vaccine administered Dementia Depression Diverticulitis of colon with perforation GERD (gastroesophageal reflux disease) History of electroconvulsive therapy HTN (hypertension) Hyperlipidemia Major depressive disorder, recurrent, severe with psychotic features Pulmonary embolism SVT (supraventricular tachycardia) Functional capacity: uses cane/walker Family History Family History Brother Blood clot in vein Other No history of cardiac disorder Family history of problems with anesthesia: No Surgical History Surgical History H/O colonoscopy H/O hernia repair History of colostomy reversal History of esophagogastroduodenoscopy (EGD) Status post Paula's procedure History of Problems with Anesthesia: No Social History Social History Household Members: Other Housing: Assisted Living Facility Are you a primary ambulatory care coordinator to a significant other at home: No Do you presently have visiting nurse or other home services: No Alcohol intake: former Patient Tobacco Use Status: Never used Tobacco Second Hand Smoke Exposure: No Use of substances other than those prescribed or required for medical reasons: No Currently Displaying Signs/Symptoms of Drug Intoxication Withdrawal: No Have you been hit, kicked, punched, or otherwise hurt by someone within the past year? If so, by whom?: No Do you feel safe in your current relationship?: No Current Relationship Is there a partner from a previous relationship who is making you feel unsafe now?: No Are you made to feel afraid or neglected: No Spiritual Healthcare Practices: refusing to respond Religion Healthcare Practices: refusing to respond Cultural Healthcare Practices: refusing to respond Are you DNR?: No Advance Directives: Yes Advance Directives Information Provided: No Advance Directives on File: Yes Advance Directives Date on File: 07/27/20 Do you have thoughts of harming others: None Do you have a plan to hurt others: No Plan Recently lost weight without trying: Unsure Poor oral hygiene: Yes service: Yes Current occupational status: retired Sexual orientation: Straight/Heterosexual Meds Allergies Allergy/AdvReac Type Severity Reaction Status Date / Time No Known Allergies Allergy Verified 01/25/21 06:43 [No Known Allergies*] Active Medications: Current Medications Acetaminophen (Acetaminophen 325 Mg Tablet) 650 mg PO Q6H PRN PRN Reason: Headache/Pain Mild Scale (1-3) Last Admin: 09/07/21 07:54 Dose: 650 mg Documented by: Al Hydroxide/Mg Hydroxide (Magnesium Hydrox/Alum Hydrox 30 Ml Oral.Susp) 30 ml PO Q6H PRN PRN Reason: Heartburn/Nausea Apixaban (Apixaban 5 Mg Tablet) 5 mg PO BID [facility] Last Admin: 09/08/21 20:33 Dose: 5 mg Documented by: Atorvastatin Calcium (Atorvastatin Calcium 40 Mg Tablet) 40 mg PO BEDTIME [facility] Last Admin: 09/08/21 20:33 Dose: 40 mg Documented by: Benzonatate (Benzonatate 100 Mg Capsule) 100 mg PO TID PRN PRN Reason: cough Docusate Sodium (Docusate Sodium 100 Mg Capsule) 100 mg PO BID [facility] Last Admin: 09/08/21 20:34 Dose: 100 mg Documented by: Erythromycin (Erythromycin Base 0.5% Oph Oin 1 Gm Tube) 1 cm EYE-BOTH BID [facility] Last Admin: 09/08/21 20:34 Dose: 1 cm Documented by: Ferrous Sulfate (Ferrous Sulfate 324 Mg Tablet.Dr) 324 mg PO DAILY [facility] Last Admin: 09/08/21 07:43 Dose: 324 mg Documented by: Hydroxyzine HCl (Hydroxyzine Hcl 25 Mg Tablet) 25 mg PO BEDTIME PRN PRN Reason: Anxiety Last Admin: 08/25/21 05:36 Dose: 25 mg Documented by: Magnesium Hydroxide (Milk Of Magnesia 30 Ml Oral.Susp) 30 ml PO DAILY PRN PRN Reason: Constipation Last Admin: 09/08/21 12:46 Dose: 30 ml Documented by: Nortriptyline HCl (Nortriptyline Hcl 25 Mg Capsule) 50 mg PO BEDTIME [facility] Last Admin: 09/08/21 20:34 Dose: 50 mg Documented by: Olanzapine (Olanzapine 2.5 Mg Tablet) 1.25 mg PO DAILY PRN PRN Reason: Anxiety Last Admin: 09/01/21 11:18 Dose: 1.25 mg Documented by: Olanzapine (Olanzapine 7.5 Mg Tablet) 7.5 mg PO BEDTIME [facility] Last Admin: 09/08/21 20:34 Dose: 7.5 mg Documented by: Omeprazole (Omeprazole 20 Mg Capsule.Dr) 20 mg PO DAILY@0630 [facility] Last Admin: 09/09/21 06:20 Dose: Not Given Documented by: Oxybutynin Chloride (Oxybutynin Chloride Er 5 Mg Tab.Er.24) 5 mg PO DAILY [facility] Last Admin: 09/08/21 07:41 Dose: 5 mg Documented by: Trazodone HCl (Trazodone Hcl 50 Mg Tablet) 50 mg PO BEDTIME [facility] Last Admin: 09/08/21 20:34 Dose: 50 mg Documented by: Trazodone HCl (Trazodone Hcl 50 Mg Tablet) 50 mg PO BEDTIME PRN PRN Reason: insomnia Vitamin D (Cholecalciferol (Vitamin D3) 10 Mcg Tablet) 10 mcg PO DAILY [facility] Last Admin: 09/08/21 07:42 Dose: 10 mcg Documented by: Home Medications Medication Instructions Recorded Confirmed Last Taken Type atorvastatin 40 mg tablet 1 tab PO BEDTIME 08/18/21 08/18/21 Unknown History benztropine 1 mg tablet 1 tab PO BID 08/18/21 08/18/21 Unknown History finasteride 5 mg tablet 1 tab PO DAILY 08/18/21 08/18/21 Unknown History fluoxetine 10 mg capsule 1 cap PO DAILY 08/18/21 08/18/21 Unknown History olanzapine 10 mg tablet 5 mg PO BEDTIME 08/18/21 08/18/21 Unknown History olanzapine 2.5 mg tablet 0.5 tab PO DAILY PRN 08/18/21 08/18/21 Unknown History omeprazole 20 mg capsule,delayed 1 cap PO DAILY 08/18/21 08/18/21 Unknown History release propranolol 10 mg tablet 1 tab PO TID PRN 08/18/21 08/18/21 Unknown History trazodone 50 mg tablet 50 mg PO BEDTIME 08/18/21 08/18/21 Unknown History Exam Exam Date and Time: September 09, 2021 0647 Height,Weight and Vital Signs: Height 5 ft 10 in Weight 82.3 kg Last Vital Signs Temp 97.6 F 09/09/21 06:24 Pulse 99 09/09/21 06:24 Resp 17 09/09/21 06:24 BP 106/75 09/09/21 06:24 Pulse Ox 95 09/09/21 06:24 Pertinent Lab Results Pertinent Lab Results: Laboratory Tests 08/17/21 08/17/21 08/17/21 20:30 20:31 20:31 WBC RBC Hgb Hct MCV MCH MCHC RDW Plt Count MPV Immature Gran % (Auto) Neut % (Auto) Lymph % (Auto) [place] % (Auto) Eos % (Auto) Baso % (Auto) Lymph # (Auto) [place] # (Auto) Eos # (Auto) Baso # (Auto) Abs Immat Gran (auto) Absolute Neuts (auto) Absolute Nucleated RBC Nucleated RBC % (auto) Sodium Potassium Chloride Carbon Dioxide Anion Gap BUN Creatinine Estim Creat Clear Calc Estimated GFR Random Glucose Estimat Average Glucose Hemoglobin A1c % Calcium Total Bilirubin AST ALT Alkaline Phosphatase Total Protein Albumin Triglycerides Cholesterol LDL Cholesterol, Calc HDL Cholesterol Vitamin B12 25-OH Vitamin D Total Folate TSH Urine Color YELLOW Urine Appearance HAZY Urine pH 6.0 Ur Specific [place] 1.025 Urine Protein NEG Urine Glucose (UA) NEG Urine Ketones NEG Urine Blood NEG Urine Nitrite NEG Ur Leukocyte Esterase NEG Urine Opiates Screen Not Detected Urine Fentanyl Screen POSITIVE H Ur Barbiturates Screen Not Detected Ur Phencyclidine Scrn Not Detected Ur Amphetamines Screen Not Detected U Benzodiazepines Scrn Not Detected Urine Cocaine Screen Not Detected U Marijuana (THC) Screen Not Detected Ethyl Alcohol COVID-19 ([facility]) Negative COVID-19 Clin Com See Note 08/17/21 08/17/21 08/17/21 21:16 21:16 21:17 WBC 5.4 RBC 4.22 L Hgb 14.0 Hct 40.9 L MCV 96.9 MCH 33.2 H MCHC 34.2 RDW 13.0 Plt Count 160 MPV 8.7 L Immature Gran % (Auto) 0.2 Neut % (Auto) 64.6 Lymph % (Auto) 21.5 [place] % (Auto) 10.4 Eos % (Auto) 3.1 Baso % (Auto) 0.2 Lymph # (Auto) 1.2 [place] # (Auto) 0.6 Eos # (Auto) 0.2 Baso # (Auto) 0.0 Abs Immat Gran (auto) 0.01 Absolute Neuts (auto) 3.5 Absolute Nucleated RBC 0.000 Nucleated RBC % (auto) 0.0 Sodium 143 Potassium 4.0 Chloride 108 Carbon Dioxide 27 Anion Gap 12 BUN 21 H Creatinine 1.03 Estim Creat Clear Calc 60.6 Estimated GFR > 60 Random Glucose 169 H Estimat Average Glucose Hemoglobin A1c % Calcium 9.7 D Total Bilirubin AST ALT Alkaline Phosphatase Total Protein Albumin Triglycerides Cholesterol LDL Cholesterol, Calc HDL Cholesterol Vitamin B12 25-OH Vitamin D Total Folate TSH Urine Color Urine Appearance Urine pH Ur Specific [place] Urine Protein Urine Glucose (UA) Urine Ketones Urine Blood Urine Nitrite Ur Leukocyte Esterase Urine Opiates Screen Urine Fentanyl Screen Ur Barbiturates Screen Ur Phencyclidine Scrn Ur Amphetamines Screen U Benzodiazepines Scrn Urine Cocaine Screen U Marijuana (THC) Screen Ethyl Alcohol < 10 COVID-19 ([facility]) COVID-19 Clin Com 08/19/21 08/20/21 08/20/21 09:11 08:25 08:25 WBC RBC Hgb Hct MCV MCH MCHC RDW Plt Count MPV Immature Gran % (Auto) Neut % (Auto) Lymph % (Auto) [place] % (Auto) Eos % (Auto) Baso % (Auto) Lymph # (Auto) [place] # (Auto) Eos # (Auto) Baso # (Auto) Abs Immat Gran (auto) Absolute Neuts (auto) Absolute Nucleated RBC Nucleated RBC % (auto) Sodium 140 Potassium 4.1 Chloride 106 Carbon Dioxide 19 L Anion Gap 19 BUN 30 H Creatinine 0.91 Estim Creat Clear Calc 68.6 Estimated GFR > 60 Random Glucose 84 D Estimat Average Glucose 120 Hemoglobin A1c % 5.8 Calcium 9.4 Total Bilirubin 1.4 H AST 23 ALT 22 Alkaline Phosphatase 124 H Total Protein 6.9 Albumin 4.3 Triglycerides 118 Cholesterol 153 LDL Cholesterol, Calc 90 HDL Cholesterol 40 Vitamin B12 25-OH Vitamin D Total 24.8 Folate TSH 0.60 Urine Color Urine Appearance Urine pH Ur Specific [place] Urine Protein Urine Glucose (UA) Urine Ketones Urine Blood Urine Nitrite Ur Leukocyte Esterase Urine Opiates Screen Urine Fentanyl Screen Ur Barbiturates Screen Ur Phencyclidine Scrn Ur Amphetamines Screen U Benzodiazepines Scrn Urine Cocaine Screen U Marijuana (THC) Screen Ethyl Alcohol COVID-19 ([facility]) Negative COVID-19 Clin Com See Note 08/20/21 08/25/21 08/25/21 08:25 22:04 22:04 WBC 5.6 RBC 4.05 L Hgb 13.8 L Hct 38.5 L MCV 95.1 MCH 34.1 H MCHC 35.8 RDW 13.2 Plt Count 165 MPV 8.7 L Immature Gran % (Auto) Neut % (Auto) Lymph % (Auto) [place] % (Auto) Eos % (Auto) Baso % (Auto) Lymph # (Auto) [place] # (Auto) Eos # (Auto) Baso # (Auto) Abs Immat Gran (auto) Absolute Neuts (auto) Absolute Nucleated RBC 0.000 Nucleated RBC % (auto) 0.0 Sodium 143 Potassium 3.6 Chloride 108 Carbon Dioxide 24 Anion Gap 15 BUN 34 H Creatinine 0.90 Estim Creat Clear Calc 69.4 Estimated GFR > 60 Random Glucose 115 D Estimat Average Glucose Hemoglobin A1c % Calcium 9.5 Total Bilirubin 1.3 H AST 32 ALT 34 Alkaline Phosphatase 121 H Total Protein 6.3 L Albumin 4.0 Triglycerides Cholesterol LDL Cholesterol, Calc HDL Cholesterol Vitamin B12 668 25-OH Vitamin D Total Folate 11.8 TSH Urine Color Urine Appearance Urine pH Ur Specific [place] Urine Protein Urine Glucose (UA) Urine Ketones Urine Blood Urine Nitrite Ur Leukocyte Esterase Urine Opiates Screen Urine Fentanyl Screen Ur Barbiturates Screen Ur Phencyclidine Scrn Ur Amphetamines Screen U Benzodiazepines Scrn Urine Cocaine Screen U Marijuana (THC) Screen Ethyl Alcohol COVID-19 ([facility]) COVID-19 Clin Com 08/25/21 22:35 WBC RBC Hgb Hct MCV MCH MCHC RDW Plt Count MPV Immature Gran % (Auto) Neut % (Auto) Lymph % (Auto) [place] % (Auto) Eos % (Auto) Baso % (Auto) Lymph # (Auto) [place] # (Auto) Eos # (Auto) Baso # (Auto) Abs Immat Gran (auto) Absolute Neuts (auto) Absolute Nucleated RBC Nucleated RBC % (auto) Sodium Potassium Chloride Carbon Dioxide Anion Gap BUN Creatinine Estim Creat Clear Calc Estimated GFR Random Glucose Estimat Average Glucose Hemoglobin A1c % Calcium Total Bilirubin AST ALT Alkaline Phosphatase Total Protein Albumin Triglycerides Cholesterol LDL Cholesterol, Calc HDL Cholesterol Vitamin B12 25-OH Vitamin D Total Folate TSH Urine Color YELLOW Urine Appearance CLEAR Urine pH 6.0 Ur Specific [place] >= 1.030 H Urine Protein TRACE Urine Glucose (UA) NEG Urine Ketones 5 Urine Blood NEG Urine Nitrite NEG Ur Leukocyte Esterase NEG Urine Opiates Screen Urine Fentanyl Screen Ur Barbiturates Screen Ur Phencyclidine Scrn Ur Amphetamines Screen U Benzodiazepines Scrn Urine Cocaine Screen U Marijuana (THC) Screen Ethyl Alcohol COVID-19 ([facility]) COVID-19 Clin Com Airway Mallampati Class: II TM Dist: >3cm Neck ROM: Full Denture: Upper Heart: rrr Lungs: cta Assessment and Plan Assessment Anesthesia Assessment: Anesthesia Plan Discussed and Chart Reviewed Final Anesthetic Review Family History of Problems with Anesthesia: No History of Problems with Anesthesia: No NPO: Yes ASA Class: III Final Preanesthetic Review: No Changes in Pt Med Stat, Meds/Allgs Chart Reviewed and Consent Obtained/Reviewed Patient Risk: Intermediate Procedure Risk: Intermediate Anesthetic Plan Anesthetic Plan: GA Disposition: Standard PACU
--- NOTE | 2021-09-09 07:03 | MHC.SHP ---
Pre-Procedural Eval Section A Date of Service: 09/09/21 The patient is an INPATIENT: Yes Changes since office visit: No Cold of Flu in the past 2 weeks, No New Medical Problems, No Changes in Medication and No Patient answered all questions The History & Physical has been completed within 30 days and I have reviewed it.: Yes Section B Chief Complaint: Recurrent major depressive D/O Severe Allergies: Allergies Allergy/AdvReac Type Severity Reaction Status Date / Time No Known Allergies Allergy Verified 01/25/21 06:43 [No Known Allergies*] Plan I have reviewed the history and physical and performed a pertinent physical examination on my patient. No changes have occurred unless specified.
--- NOTE | 2021-09-09 07:03 | HO.ECTPROC ---
ECT Procedure Note Diagnosis/Treatment Date of Service: 09/09/21 Diagnosis: Major Depressive Disorder Previous ECT Date: 09/06/21 Current Treatment Number: 5 Treatment: Series Interval Clinical Notes: the patient reported dysphoria but he looks less dysphoric. No side effects with previous ECT. ECT Settings Device: THYMATRON DGx Electrode Placement: Right Unilateral Program/Pulse Width: 0.50 Energy Percent: 100 Seizure Duration By EEG (in seconds): 0 (not registered by EEG but seizure activity [id number]) By Motor Observation (in seconds): 12 Medications Administration General Anesthetic: Etomidate (12) Muscle Relaxant: Succinylcholine (100) Ancillary Medications Analgesics: Torodol - Pre ECT Anti-emetics: Zofran - Pre ECT Miscillaneous Medications: Propofol and Midazolam Airway Management Airway Management: Bag Mask Ventilation Treatment Recommendations No Changes Recommended: No change Pt Tolerated Procedure w/o Issue: Yes
[2021-09-09] MEDS: Omeprazole 20 MG CAPSULE.DR PO (08:55)
[2021-09-09] MEDS: Docusate Sodium 100 MG CAPSULE PO ×2 (08:55→19:52)
[2021-09-09] MEDS: Cholecalciferol (Vitamin D3) 10 MCG TABLET PO (08:55)
[2021-09-09] MEDS: Ferrous Sulfate 324 MG TABLET.DR PO (08:56)
[2021-09-09] MEDS: Apixaban 5 MG TABLET PO ×2 (08:56→19:52)
--- NOTE | 2021-09-09 11:40 | MHC.CLN ---
F/U PATIENT REPORTS THAT HE EATS WELL. SEEN BY FLOOR WORKER TRANSFER [employer]AY WITH RECOMMENDED DIET NDD3. DIET=REGULAR, NDD3. PATIENT EATS SUPERVISED WITH CUES TO ENCOURAGE REGULAR SIZE BITES OF FOOD AND LIQUIDS. VARIABLE INTAKE, BUT USUALLY GOOD. CONTINUE ENSURE TID TO PROVIDE 1050 KCAL, 39 G PROTEIN.
--- NOTE | 2021-09-09 12:31 | HO.PSYCHPN ---
Subjective Subjective Date of Service: 09/09/21 Reason For Visit: Recurrent major depressive D/O Severe Subjective Notes: Conditional Voluntary Interim History: The nursing staff reports the patient is more visible in the unit, cooperative and pleasant, fully compliant with treatment. Today in the morning we had ECT without complications. On interview, the patient reports that he is feeling down but he looks much less dysphoric than Thursday. Mental Status Exam Mental Status Exam Patient Orientation: Person Level of Consciousness: Awake Patient Behavior: Guarded and Passive Mood Description: Depressed Affect Description: Constricted Ability to Follow Directions: Good Speech Pattern: Clear Hallucinations: None Delusions: Not Present Thought Process: Linear and Slowed Thinking Thought Content: positive for Circumstantial and positive for Poverty of Content Judgement: Fair Diagnostics Vital Signs (24Hr): Vital Signs - 24 hr 09/08/21 18:00 09/09/21 05:44 09/09/21 06:24 Temperature 98 F 99.4 F 97.6 F Pulse Rate 96 94 99 Respiratory Rate 18 18 17 Blood Pressure 127/75 125/72 106/75 Pulse Oximetry 98 96 95 09/09/21 07:25 09/09/21 07:30 09/09/21 07:35 Temperature 98 F Pulse Rate 96 95 104 H Respiratory Rate 16 22 H 15 Blood Pressure 147/80 H 106/66 125/81 Pulse Oximetry 97 97 96 09/09/21 07:39 09/09/21 07:54 09/09/21 08:09 Temperature Pulse Rate 101 H 102 H 89 Respiratory Rate 20 14 16 Blood Pressure 125/81 124/40 L 106/68 Pulse Oximetry 97 96 97 09/09/21 08:23 09/09/21 08:55 09/09/21 11:00 Temperature 97.2 F 97.2 F Pulse Rate 92 103 H 103 H Respiratory Rate 20 Blood Pressure 118/77 118/77 Pulse Oximetry 95 97 97 BMI result Body Mass Index 26.0 Labs Results: 08/25/21 22:04 08/25/21 22:04 Imaging Radiology Impressions: ITS Impressions Chest X-Ray 08/20/21 10:00 IMPRESSION: 1. Lungs grossly clear. No infiltrate or effusion. 2. Hiatal hernia, approximately [address] 08/28/21 15:52 IMPRESSION: No acute intracranial findings. Atrophy and nonspecific periventricular white matter disease similar to previous exams. Medications Medications Current Medications Acetaminophen (Acetaminophen 325 Mg Tablet) 650 mg PO Q6H PRN PRN Reason: Headache/Pain Mild Scale (1-3) Last Admin: 09/07/21 07:54 Dose: 650 mg Documented by: Al Hydroxide/Mg Hydroxide (Magnesium Hydrox/Alum Hydrox 30 Ml Oral.Susp) 30 ml PO Q6H PRN PRN Reason: Heartburn/Nausea Apixaban (Apixaban 5 Mg Tablet) 5 mg PO BID [facility] Last Admin: 09/09/21 08:56 Dose: 5 mg Documented by: Atorvastatin Calcium (Atorvastatin Calcium 40 Mg Tablet) 40 mg PO BEDTIME [facility] Last Admin: 09/08/21 20:33 Dose: 40 mg Documented by: Benzonatate (Benzonatate 100 Mg Capsule) 100 mg PO TID PRN PRN Reason: cough Docusate Sodium (Docusate Sodium 100 Mg Capsule) 100 mg PO BID [facility] Last Admin: 09/09/21 08:55 Dose: 100 mg Documented by: Erythromycin (Erythromycin Base 0.5% Oph Oin 1 Gm Tube) 1 cm EYE-BOTH BID [facility] Last Admin: 09/09/21 10:24 Dose: Not Given Documented by: Ferrous Sulfate (Ferrous Sulfate 324 Mg Tablet.) 324 mg PO DAILY [facility] Last Admin: 09/09/21 08:56 Dose: 324 mg Documented by: Hydroxyzine HCl (Hydroxyzine Hcl 25 Mg Tablet) 25 mg PO BEDTIME PRN PRN Reason: Anxiety Last Admin: 08/25/21 05:36 Dose: 25 mg Documented by: Magnesium Hydroxide (Milk Of Magnesia 30 Ml Oral.Susp) 30 ml PO DAILY PRN PRN Reason: Constipation Last Admin: 09/08/21 12:46 Dose: 30 ml Documented by: Nortriptyline HCl (Nortriptyline Hcl 25 Mg Capsule) 50 mg PO BEDTIME [facility] Last Admin: 09/08/21 20:34 Dose: 50 mg Documented by: Olanzapine (Olanzapine 2.5 Mg Tablet) 1.25 mg PO DAILY PRN PRN Reason: Anxiety Last Admin: 09/01/21 11:18 Dose: 1.25 mg Documented by: Olanzapine (Olanzapine 7.5 Mg Tablet) 7.5 mg PO BEDTIME [facility] Last Admin: 09/08/21 20:34 Dose: 7.5 mg Documented by: Omeprazole (Omeprazole 20 Mg Capsule.) 20 mg PO DAILY@0630 [facility] Last Admin: 09/09/21 08:55 Dose: 20 mg Documented by: Oxybutynin Chloride (Oxybutynin Chloride Er 5 Mg Tab.Er.24) 5 mg PO DAILY [facility] Last Admin: 09/09/21 08:55 Dose: 5 mg Documented by: Trazodone HCl (Trazodone Hcl 50 Mg Tablet) 50 mg PO BEDTIME [facility] Last Admin: 09/08/21 20:34 Dose: 50 mg Documented by: Trazodone HCl (Trazodone Hcl 50 Mg Tablet) 50 mg PO BEDTIME PRN PRN Reason: insomnia Vitamin D (Cholecalciferol (Vitamin D3) 10 Mcg Tablet) 10 mcg PO DAILY [facility] Last Admin: 09/09/21 08:55 Dose: 10 mcg Documented by: Allergies Allergies Allergy/AdvReac Type Severity Reaction Status Date / Time No Known Allergies Allergy Verified 01/25/21 06:43 [No Known Allergies*] Assessment & Plan Assessment & Plan (1) Major depressive disorder, recurrent, severe with psychotic features: Status: Acute Code(s): F33.3 - Major depressive disorder, recurrent, severe with psychotic symptoms Assessment and Plan: José Luis is a 76 year old male who carries a dx of MDD, recurrent, severe with hx of psychosis, catatonia. He is known to [facility] for similar presentation and has received ECT with good effect in the past. Case reviewed with Dr. Sims he does not feel there is any different option at this time besides ECT. We did discuss restate belies in the patient and then trying TMS risk ketamine. Case reviewed with patient's healthcare proxy she clearly feels that patient has responded well to ECT generally understands limited options at this time feels that patient not able to make decision at this time The patient fell at 13:30 on Tuesday 08/28. There was no changes in his mental status but he had a laceration on his left eye. We ordered CT scan head and hospitalist consult that were normal. Since then, he was placed him on one-to-one. Plan: 1. Change one-to-one observation to 15 minutes checks while awake. 2. Continue Pamelor and Zyprexa. 3. Pamelor level, basic metabolic panel, hemoglobin A1c and lipid profile for tomorrow morning. 4. Reassessment with results I spent minutes with the patient and/or on the patient floor today, greater than?50% of which was spent counseling/coordinating care. Reason for contiued inpatient stay Substantial Risk for: harm to self, inability to function, rapid decompensation and med/psych decompensation
[2021-09-09 13:30] LABS: Alanine Aminotransferase 45 U/L (0-40); Albumin Level 4.1 g/dL (3.5-5.0); Alkaline Phosphatase 139 U/L (39-117); Aspartate Amino Transferase 28 U/L (5-37); Bilirubin Direct 0.2 mg/dL (0.0-0.5); Bilirubin Total 0.6 mg/dL (0.0-1.0); Total Protein 6.8 g/dL (6.5-8.0)
[2021-09-09] MEDS: Nortriptyline HCl 25 MG CAPSULE 50 MG PO (19:51)
[2021-09-09] MEDS: Atorvastatin Calcium 40 MG TABLET PO (19:52)
[2021-09-09] MEDS: traZODone HCL 50 MG TABLET PO (19:52)
[2021-09-09] MEDS: OLANZapine 7.5 MG TABLET PO (19:53)
[2021-09-09] MEDS: Erythromycin Base 0.5% Oph Oin 1 GM TUBE 1 CM EYE-BOTH (19:55)
[2021-09-09] MEDS: Milk of Magnesia 30 ML ORAL.SUSP PO (20:35)
[2021-09-10 06:00] VITALS: BP 117/71; PULSE 86; RESP 16; TEMP 36.6; O2SAT 96
[2021-09-10 07:54] LABS: Estimated Average Glucose 123 mg/dL; Hemoglobin A1c % 5.9 %
[2021-09-10] MEDS: Omeprazole 20 MG CAPSULE.DR PO (08:01)
[2021-09-10] MEDS: Apixaban 5 MG TABLET PO ×2 (08:02→20:42)
[2021-09-10] MEDS: Erythromycin Base 0.5% Oph Oin 1 GM TUBE 1 CM EYE-BOTH ×2 (08:03→20:42)
[2021-09-10] MEDS: Cholecalciferol (Vitamin D3) 10 MCG TABLET PO (08:03)
[2021-09-10] MEDS: Docusate Sodium 100 MG CAPSULE PO ×2 (08:03→20:41)
[2021-09-10] MEDS: Ferrous Sulfate 324 MG TABLET.DR PO (08:03)
[2021-09-10 08:08] LABS: Anion Gap 10 (12-20); Blood Urea Nitrogen 24 mg/dL (9-16); Calcium 9.1 mg/dL (8.4-10.2); Carbon Dioxide 27 mmol/L (22-29); Chloride 108 mmol/L (96-108); Cholesterol 131 mg/dL; Creatinine Clr Calc Pharmacy 73.9; Estimated Glomerular Filt Rate > 60; Glucose Random 110 mg/dL (60-115); HDL Cholesterol 43 mg/dL; LDL Cholesterol Calculated 69 mg/dl; Potassium 4.4 mmol/L (3.3-5.1); Sodium 141 mmol/L (135-145); Triglycerides 96 mg/dL
--- NOTE | 2021-09-10 11:37 | P.PNPSI_ITS ---
Subjective Subjective Date of Service: 09/10/21 Reason For Visit: Recurrent major depressive D/O Severe Subjective Notes: Conditional Voluntary Interim History: The nursing staff reports the patient has been constipated. The staff has reported that his mood looks brighter even though that he is bed- bound at most of the time. On interview, the patient denies new symptoms he looks more oriented after ECT Mental Status Exam Mental Status Exam Patient Appearance: Well Grooomed Patient Orientation: Person Level of Consciousness: Awake Patient Behavior: Guarded and Passive Mood Description: Constricted Affect Description: Constricted Patient Cognition Impaired: Yes Ability to Follow Directions: Good Speech Pattern: Clear Hallucinations: None Delusions: Not Present Thought Process: Linear Thought Content: positive for Circumstantial Judgement: Fair Diagnostics Vital Signs (24Hr): Vital Signs - 24 hr 09/09/21 18:00 09/10/21 06:00 Temperature 97.4 F 97.8 F Pulse Rate 90 86 Respiratory Rate 16 16 Blood Pressure 123/69 117/71 Pulse Oximetry 95 96 BMI result Body Mass Index 26.0 Labs Results: 08/25/21 22:04 09/10/21 07:22 Labs: Laboratory Results - last 48 hr 09/09/21 09/10/21 09/10/21 12:54 07:22 07:22 Sodium 141 Potassium 4.4 D Chloride 108 Carbon Dioxide 27 Anion Gap 10 L BUN 24 H Creatinine 0.85 Estim Creat Clear Calc 73.9 Estimated GFR > 60 Random Glucose 110 Estimat Average Glucose 123 Hemoglobin A1c % 5.9 Calcium 9.1 Total Bilirubin 0.6 Direct Bilirubin 0.2 AST 28 ALT 45 H Alkaline Phosphatase 139 H Total Protein 6.8 Albumin 4.1 Triglycerides 96 Cholesterol 131 LDL Cholesterol, Calc 69 HDL Cholesterol 43 Imaging Radiology Impressions: ITS Impressions Chest X-Ray 08/20/21 10:00 IMPRESSION: 1. Lungs grossly clear. No infiltrate or effusion. 2. Hiatal hernia, approximately [address] 08/28/21 15:52 IMPRESSION: No acute intracranial findings. Atrophy and nonspecific periventricular white matter disease similar to previous exams. Medications Medications Current Medications Acetaminophen (Acetaminophen 325 Mg Tablet) 650 mg PO Q6H PRN PRN Reason: Headache/Pain Mild Scale (1-3) Last Admin: 09/07/21 07:54 Dose: 650 mg Documented by: Al Hydroxide/Mg Hydroxide (Magnesium Hydrox/Alum Hydrox 30 Ml Oral.Susp) 30 ml PO Q6H PRN PRN Reason: Heartburn/Nausea Apixaban (Apixaban 5 Mg Tablet) 5 mg PO BID [facility] Last Admin: 09/10/21 08:02 Dose: 5 mg Documented by: Atorvastatin Calcium (Atorvastatin Calcium 40 Mg Tablet) 40 mg PO BEDTIME [facility] Last Admin: 09/09/21 19:52 Dose: 40 mg Documented by: Benzonatate (Benzonatate 100 Mg Capsule) 100 mg PO TID PRN PRN Reason: cough Docusate Sodium (Docusate Sodium 100 Mg Capsule) 100 mg PO BID [facility] Last Admin: 09/10/21 08:03 Dose: 100 mg Documented by: Erythromycin (Erythromycin Base 0.5% Oph Oin 1 Gm Tube) 1 cm EYE-BOTH BID [facility] Last Admin: 09/10/21 08:03 Dose: 1 cm Documented by: Ferrous Sulfate (Ferrous Sulfate 324 Mg Tablet.) 324 mg PO DAILY [facility] Last Admin: 09/10/21 08:03 Dose: 324 mg Documented by: Hydroxyzine HCl (Hydroxyzine Hcl 25 Mg Tablet) 25 mg PO BEDTIME PRN PRN Reason: Anxiety Last Admin: 08/25/21 05:36 Dose: 25 mg Documented by: Magnesium Hydroxide (Milk Of Magnesia 30 Ml Oral.Susp) 30 ml PO DAILY PRN PRN Reason: Constipation Last Admin: 09/09/21 20:35 Dose: 30 ml Documented by: Nortriptyline HCl (Nortriptyline Hcl 25 Mg Capsule) 50 mg PO BEDTIME [facility] Last Admin: 09/09/21 19:51 Dose: 50 mg Documented by: Olanzapine (Olanzapine 2.5 Mg Tablet) 1.25 mg PO DAILY PRN PRN Reason: Anxiety Last Admin: 09/01/21 11:18 Dose: 1.25 mg Documented by: Olanzapine (Olanzapine 7.5 Mg Tablet) 7.5 mg PO BEDTIME [facility] Last Admin: 09/09/21 19:53 Dose: 7.5 mg Documented by: Omeprazole (Omeprazole 20 Mg Capsule.) 20 mg PO DAILY@0630 [facility] Last Admin: 09/10/21 08:01 Dose: 20 mg Documented by: Oxybutynin Chloride (Oxybutynin Chloride Er 5 Mg Tab.Er.24) 5 mg PO DAILY [facility] Last Admin: 09/10/21 08:02 Dose: 5 mg Documented by: Senna (Senna Mooar Extract Oral Syrup 15 Ml Syrup) 7.5 ml PO BEDTIME [facility] Trazodone HCl (Trazodone Hcl 50 Mg Tablet) 50 mg PO BEDTIME [facility] Last Admin: 09/09/21 19:52 Dose: 50 mg Documented by: Trazodone HCl (Trazodone Hcl 50 Mg Tablet) 50 mg PO BEDTIME PRN PRN Reason: insomnia Vitamin D (Cholecalciferol (Vitamin D3) 10 Mcg Tablet) 10 mcg PO DAILY [facility] Last Admin: 09/10/21 08:03 Dose: 10 mcg Documented by: Allergies Allergies Allergy/AdvReac Type Severity Reaction Status Date / Time No Known Allergies Allergy Verified 01/25/21 06:43 [No Known Allergies*] Assessment & Plan Assessment & Plan (1) Major depressive disorder, recurrent, severe with psychotic features: Status: Acute Code(s): F33.3 - Major depressive disorder, recurrent, severe with psychotic symptoms Assessment and Plan: José Luis is a 76 year old male who carries a dx of MDD, recurrent, severe with hx of psychosis, catatonia. He is known to [facility] for similar presentation and has received ECT with good effect in the past. Case reviewed with Dr. Sims he does not feel there is any different option at this time besides ECT. We did discuss restate belies in the patient and then trying TMS risk ketamine. Case reviewed with patient's healthcare proxy she long adkinsly feels that patient has responded well to ECT generally understands limited options at this time feels that patient not able to make decision at this time The patient fell at 13:30 on Tuesday 08/28. There was no changes in his mental status but he had a laceration on his left eye. We ordered CT scan head and hospitalist consult that were normal. Since then, he was placed him on one-to-one but recently we change his level of observation Plan: 1. Change one-to-one observation to 15 minutes checks while awake. 2. Continue Pamelor and Zyprexa. 3. Pamelor level is pending but basic metabolic panel, hemoglobin A1c and lipid profile came back without any evidence of metabolic syndrome 4. Reassessment with results I spent minutes with the patient and/or on the patient floor today, greater than?50% of which was spent counseling/coordinating care. Reason for contiued inpatient stay Substantial Risk for: harm to self, inability to function, rapid decompensation and med/psych decompensation
[2021-09-10 20:15] VITALS: BP 120/71; PULSE 85; TEMP 36.8; O2SAT 95
[2021-09-10] MEDS: Atorvastatin Calcium 40 MG TABLET PO (20:41)
[2021-09-10] MEDS: OLANZapine 7.5 MG TABLET PO (20:41)
[2021-09-10] MEDS: Nortriptyline HCl 25 MG CAPSULE 50 MG PO (20:41)
[2021-09-10] MEDS: Sennosides 8.6 MG TABLET PO (20:42)
[2021-09-10] MEDS: traZODone HCL 50 MG TABLET PO (20:42)
[2021-09-11] VITALS (9 sets, daily range): BP systolic 107–141; BP diastolic 62–89; PULSE 94–110; RESP 16–20; TEMP 36.3–37.1; O2SAT 95–100
--- NOTE | 2021-09-11 07:29 | MHC.SHP ---
Pre-Procedural Eval Section A Date of Service: 09/11/21 The patient is an INPATIENT: Yes Changes since office visit: Yes Changes in Medication and Yes Patient answered all questions; No Cold of Flu in the past 2 weeks and No New Medical Problems The History & Physical has been completed within 30 days and I have reviewed it.: Yes Section B Chief Complaint: Recurrent major depressive D/O Severe Allergies: Allergies Allergy/AdvReac Type Severity Reaction Status Date / Time No Known Allergies Allergy Verified 01/25/21 06:43 [No Known Allergies*] Plan I have reviewed the history and physical and performed a pertinent physical examination on my patient. No changes have occurred unless specified.
--- NOTE | 2021-09-11 07:36 | HO.ECTPROC ---
ECT Procedure Note Diagnosis/Treatment Date of Service: 09/11/21 Diagnosis: Major Depressive Disorder and Catatonia Previous ECT Date: 09/09/21 Current Treatment Number: 6 Treatment: Series Interval Clinical Notes: much crowley range of affect tolerating ect well ECT Settings Device: THYMATRON DGx Electrode Placement: Right Unilateral Program/Pulse Width: 0.50 Energy Percent: 100 Seizure Duration By EEG (in seconds): 46 Medications Administration General Anesthetic: Etomidate Muscle Relaxant: Succinylcholine Ancillary Medications Anti-emetics: Zofran - Pre ECT Miscillaneous Medications: Other (lorazepam 2 mg post ) Airway Management Airway Management: Bag Mask Ventilation Treatment Recommendations No Changes Recommended: No change Pt Tolerated Procedure w/o Issue: Yes
--- NOTE | 2021-09-11 08:37 | P.CONAN_ITS ---
[facility] Active Problems Active Problems: All Active Problems (Updated 08/21/21 @ 09:05 by Leila Oneill APRN) Major depressive disorder, recurrent, severe with psychotic features (Acute) Depression (Acute) Physical deconditioning (Acute) Preoperative cardiovascular examination (Acute) Anemia (Acute) GERD (gastroesophageal reflux disease) (Acute) Past Medical History Medical History COVID-19 vaccine administered Dementia Depression Diverticulitis of colon with perforation GERD (gastroesophageal reflux disease) History of electroconvulsive therapy HTN (hypertension) Hyperlipidemia Major depressive disorder, recurrent, severe with psychotic features Pulmonary embolism SVT (supraventricular tachycardia) Functional capacity: uses cane/walker Family History Family History Brother Blood clot in vein Other No history of cardiac disorder Family history of problems with anesthesia: No Surgical History Surgical History H/O colonoscopy H/O hernia repair History of colostomy reversal History of esophagogastroduodenoscopy (EGD) Status post Paula's procedure History of Problems with Anesthesia: No Social History Social History Household Members: Other Housing: Assisted Living Facility Are you a primary physician assistant primary care to a significant other at home: No Do you presently have visiting nurse or other home services: No Alcohol intake: former Patient Tobacco Use Status: Never used Tobacco Second Hand Smoke Exposure: No Use of substances other than those prescribed or required for medical reasons: No Currently Displaying Signs/Symptoms of Drug Intoxication Withdrawal: No Have you been hit, kicked, punched, or otherwise hurt by someone within the past year? If so, by whom?: No Do you feel safe in your current relationship?: No Current Relationship Is there a partner from a previous relationship who is making you feel unsafe now?: No Are you made to feel afraid or neglected: No Spiritual Healthcare Practices: refusing to respond Taoism Healthcare Practices: refusing to respond Cultural Healthcare Practices: refusing to respond Are you DNR?: No Advance Directives: Yes Advance Directives Information Provided: No Advance Directives on File: Yes Advance Directives Date on File: 07/27/20 Do you have thoughts of harming others: None Do you have a plan to hurt others: No Plan Recently lost weight without trying: Unsure Poor oral hygiene: Yes service: Yes Current occupational status: retired Sexual orientation: Straight/Heterosexual Meds Allergies Allergy/AdvReac Type Severity Reaction Status Date / Time No Known Allergies Allergy Verified 01/25/21 06:43 [No Known Allergies*] Active Medications: Current Medications Acetaminophen (Acetaminophen 325 Mg Tablet) 650 mg PO Q6H PRN PRN Reason: Headache/Pain Mild Scale (1-3) Last Admin: 09/07/21 07:54 Dose: 650 mg Documented by: Al Hydroxide/Mg Hydroxide (Magnesium Hydrox/Alum Hydrox 30 Ml Oral.Susp) 30 ml PO Q6H PRN PRN Reason: Heartburn/Nausea Apixaban (Apixaban 5 Mg Tablet) 5 mg PO BID [facility] Last Admin: 09/10/21 20:42 Dose: 5 mg Documented by: Atorvastatin Calcium (Atorvastatin Calcium 40 Mg Tablet) 40 mg PO BEDTIME [facility] Last Admin: 09/10/21 20:41 Dose: 40 mg Documented by: Benzonatate (Benzonatate 100 Mg Capsule) 100 mg PO TID PRN PRN Reason: cough Docusate Sodium (Docusate Sodium 100 Mg Capsule) 100 mg PO BID [facility] Last Admin: 09/10/21 20:41 Dose: 100 mg Documented by: Erythromycin (Erythromycin Base 0.5% Oph Oin 1 Gm Tube) 1 cm EYE-BOTH BID [facility] Last Admin: 09/10/21 20:42 Dose: 1 cm Documented by: Ferrous Sulfate (Ferrous Sulfate 324 Mg Tablet.) 324 mg PO DAILY [facility] Last Admin: 09/10/21 08:03 Dose: 324 mg Documented by: Hydroxyzine HCl (Hydroxyzine Hcl 25 Mg Tablet) 25 mg PO BEDTIME PRN PRN Reason: Anxiety Last Admin: 08/25/21 05:36 Dose: 25 mg Documented by: Magnesium Hydroxide (Milk Of Magnesia 30 Ml Oral.Susp) 30 ml PO DAILY PRN PRN Reason: Constipation Last Admin: 09/09/21 20:35 Dose: 30 ml Documented by: Nortriptyline HCl (Nortriptyline Hcl 25 Mg Capsule) 50 mg PO BEDTIME [facility] Last Admin: 09/10/21 20:41 Dose: 50 mg Documented by: Olanzapine (Olanzapine 2.5 Mg Tablet) 1.25 mg PO DAILY PRN PRN Reason: Anxiety Last Admin: 09/01/21 11:18 Dose: 1.25 mg Documented by: Olanzapine (Olanzapine 7.5 Mg Tablet) 7.5 mg PO BEDTIME [facility] Last Admin: 09/10/21 20:41 Dose: 7.5 mg Documented by: Omeprazole (Omeprazole 20 Mg Capsule.Dr) 20 mg PO DAILY@0630 [facility] Last Admin: 09/10/21 08:01 Dose: 20 mg Documented by: Oxybutynin Chloride (Oxybutynin Chloride Er 5 Mg Tab.Er.24) 5 mg PO DAILY [facility] Last Admin: 09/10/21 08:02 Dose: 5 mg Documented by: Senna (Sennosides 8.6 Mg Tablet) 8.6 mg PO BEDTIME [facility] Last Admin: 09/10/21 20:42 Dose: 8.6 mg Documented by: Trazodone HCl (Trazodone Hcl 50 Mg Tablet) 50 mg PO BEDTIME [facility] Last Admin: 09/10/21 20:42 Dose: 50 mg Documented by: Trazodone HCl (Trazodone Hcl 50 Mg Tablet) 50 mg PO BEDTIME PRN PRN Reason: insomnia Vitamin D (Cholecalciferol (Vitamin D3) 10 Mcg Tablet) 10 mcg PO DAILY [facility] Last Admin: 09/10/21 08:03 Dose: 10 mcg Documented by: Home Medications Medication Instructions Recorded Confirmed Last Taken Type atorvastatin 40 mg tablet 1 tab PO BEDTIME 08/18/21 08/18/21 Unknown History benztropine 1 mg tablet 1 tab PO BID 08/18/21 08/18/21 Unknown History finasteride 5 mg tablet 1 tab PO DAILY 08/18/21 08/18/21 Unknown History fluoxetine 10 mg capsule 1 cap PO DAILY 08/18/21 08/18/21 Unknown History olanzapine 10 mg tablet 5 mg PO BEDTIME 08/18/21 08/18/21 Unknown History olanzapine 2.5 mg tablet 0.5 tab PO DAILY PRN 08/18/21 08/18/21 Unknown History omeprazole 20 mg capsule,delayed 1 cap PO DAILY 08/18/21 08/18/21 Unknown History release propranolol 10 mg tablet 1 tab PO TID PRN 08/18/21 08/18/21 Unknown History trazodone 50 mg tablet 50 mg PO BEDTIME 08/18/21 08/18/21 Unknown History Exam Exam Date and Time: September 11, 2021 0837 Height,Weight and Vital Signs: Height 5 ft 10 in Weight 82.3 kg Last Vital Signs Temp 98.8 F 09/11/21 07:51 Pulse 108 H 09/11/21 08:21 Resp 18 09/11/21 08:21 BP 123/75 09/11/21 08:21 Pulse Ox 98 09/11/21 08:21 Pertinent Lab Results Pertinent Lab Results: Laboratory Tests 08/17/21 08/17/21 08/17/21 20:30 20:31 20:31 WBC RBC Hgb Hct MCV MCH MCHC RDW Plt Count MPV Immature Gran % (Auto) Neut % (Auto) Lymph % (Auto) Osborne % (Auto) Eos % (Auto) Baso % (Auto) Lymph # (Auto) Osborne # (Auto) Eos # (Auto) Baso # (Auto) Abs Immat Gran (auto) Absolute Neuts (auto) Absolute Nucleated RBC Nucleated RBC % (auto) Sodium Potassium Chloride Carbon Dioxide Anion Gap BUN Creatinine Estim Creat Clear Calc Estimated GFR Random Glucose Estimat Average Glucose Hemoglobin A1c % Calcium Total Bilirubin Direct Bilirubin AST ALT Alkaline Phosphatase Total Protein Albumin Triglycerides Cholesterol LDL Cholesterol, Calc HDL Cholesterol Vitamin B12 25-OH Vitamin D Total Folate TSH Urine Color YELLOW Urine Appearance HAZY Urine pH 6.0 Ur Specific [place] 1.025 Urine Protein NEG Urine Glucose (UA) NEG Urine Ketones NEG Urine Blood NEG Urine Nitrite NEG Ur Leukocyte Esterase NEG Urine Opiates Screen Not Detected Urine Fentanyl Screen POSITIVE H Ur Barbiturates Screen Not Detected Ur Phencyclidine Scrn Not Detected Ur Amphetamines Screen Not Detected U Benzodiazepines Scrn Not Detected Urine Cocaine Screen Not Detected U Marijuana (THC) Screen Not Detected Ethyl Alcohol COVID-19 ([facility]) Negative COVID-19 Clin Com See Note 08/17/21 08/17/21 08/17/21 21:16 21:16 21:17 WBC 5.4 RBC 4.22 L Hgb 14.0 Hct 40.9 L MCV 96.9 MCH 33.2 H MCHC 34.2 RDW 13.0 Plt Count 160 MPV 8.7 L Immature Gran % (Auto) 0.2 Neut % (Auto) 64.6 Lymph % (Auto) 21.5 Osborne % (Auto) 10.4 Eos % (Auto) 3.1 Baso % (Auto) 0.2 Lymph # (Auto) 1.2 Osborne # (Auto) 0.6 Eos # (Auto) 0.2 Baso # (Auto) 0.0 Abs Immat Gran (auto) 0.01 Absolute Neuts (auto) 3.5 Absolute Nucleated RBC 0.000 Nucleated RBC % (auto) 0.0 Sodium 143 Potassium 4.0 Chloride 108 Carbon Dioxide 27 Anion Gap 12 BUN 21 H Creatinine 1.03 Estim Creat Clear Calc 60.6 Estimated GFR > 60 Random Glucose 169 H Estimat Average Glucose Hemoglobin A1c % Calcium 9.7 D Total Bilirubin Direct Bilirubin AST ALT Alkaline Phosphatase Total Protein Albumin Triglycerides Cholesterol LDL Cholesterol, Calc HDL Cholesterol Vitamin B12 25-OH Vitamin D Total Folate TSH Urine Color Urine Appearance Urine pH Ur Specific [place] Urine Protein Urine Glucose (UA) Urine Ketones Urine Blood Urine Nitrite Ur Leukocyte Esterase Urine Opiates Screen Urine Fentanyl Screen Ur Barbiturates Screen Ur Phencyclidine Scrn Ur Amphetamines Screen U Benzodiazepines Scrn Urine Cocaine Screen U Marijuana (THC) Screen Ethyl Alcohol < 10 COVID-19 ([facility]) COVID-19 Clin Com 08/19/21 08/20/21 08/20/21 09:11 08:25 08:25 WBC RBC Hgb Hct MCV MCH MCHC RDW Plt Count MPV Immature Gran % (Auto) Neut % (Auto) Lymph % (Auto) Osborne % (Auto) Eos % (Auto) Baso % (Auto) Lymph # (Auto) Osborne # (Auto) Eos # (Auto) Baso # (Auto) Abs Immat Gran (auto) Absolute Neuts (auto) Absolute Nucleated RBC Nucleated RBC % (auto) Sodium 140 Potassium 4.1 Chloride 106 Carbon Dioxide 19 L Anion Gap 19 BUN 30 H Creatinine 0.91 Estim Creat Clear Calc 68.6 Estimated GFR > 60 Random Glucose 84 D Estimat Average Glucose 120 Hemoglobin A1c % 5.8 Calcium 9.4 Total Bilirubin 1.4 H Direct Bilirubin AST 23 ALT 22 Alkaline Phosphatase 124 H Total Protein 6.9 Albumin 4.3 Triglycerides 118 Cholesterol 153 LDL Cholesterol, Calc 90 HDL Cholesterol 40 Vitamin B12 25-OH Vitamin D Total 24.8 Folate TSH 0.60 Urine Color Urine Appearance Urine pH Ur Specific [place] Urine Protein Urine Glucose (UA) Urine Ketones Urine Blood Urine Nitrite Ur Leukocyte Esterase Urine Opiates Screen Urine Fentanyl Screen Ur Barbiturates Screen Ur Phencyclidine Scrn Ur Amphetamines Screen U Benzodiazepines Scrn Urine Cocaine Screen U Marijuana (THC) Screen Ethyl Alcohol COVID-19 ([facility]) Negative COVID-19 Fridge Com See Note 08/20/21 08/25/21 08/25/21 08:25 22:04 22:04 WBC 5.6 RBC 4.05 L Hgb 13.8 L Hct 38.5 L MCV 95.1 MCH 34.1 H MCHC 35.8 RDW 13.2 Plt Count 165 MPV 8.7 L Immature Gran % (Auto) Neut % (Auto) Lymph % (Auto) Osborne % (Auto) Eos % (Auto) Baso % (Auto) Lymph # (Auto) Osborne # (Auto) Eos # (Auto) Baso # (Auto) Abs Immat Gran (auto) Absolute Neuts (auto) Absolute Nucleated RBC 0.000 Nucleated RBC % (auto) 0.0 Sodium 143 Potassium 3.6 Chloride 108 Carbon Dioxide 24 Anion Gap 15 BUN 34 H Creatinine 0.90 Estim Creat Clear Calc 69.4 Estimated GFR > 60 Random Glucose 115 D Estimat Average Glucose Hemoglobin A1c % Calcium 9.5 Total Bilirubin 1.3 H Direct Bilirubin AST 32 ALT 34 Alkaline Phosphatase 121 H Total Protein 6.3 L Albumin 4.0 Triglycerides Cholesterol LDL Cholesterol, Calc HDL Cholesterol Vitamin B12 668 25-OH Vitamin D Total Folate 11.8 TSH Urine Color Urine Appearance Urine pH Ur Specific [place] Urine Protein Urine Glucose (UA) Urine Ketones Urine Blood Urine Nitrite Ur Leukocyte Esterase Urine Opiates Screen Urine Fentanyl Screen Ur Barbiturates Screen Ur Phencyclidine Scrn Ur Amphetamines Screen U Benzodiazepines Scrn Urine Cocaine Screen U Marijuana (THC) Screen Ethyl Alcohol COVID-19 ([facility]) COVID-19 Meta 08/25/21 09/09/21 09/10/21 22:35 12:54 07:22 WBC RBC Hgb Hct MCV MCH MCHC RDW Plt Count MPV Immature Gran % (Auto) Neut % (Auto) Lymph % (Auto) Osborne % (Auto) Eos % (Auto) Baso % (Auto) Lymph # (Auto) [place] # (Auto) Eos # (Auto) Baso # (Auto) Abs Immat Gran (auto) Absolute Neuts (auto) Absolute Nucleated RBC Nucleated RBC % (auto) Sodium 141 Potassium 4.4 D Chloride 108 Carbon Dioxide 27 Anion Gap 10 L BUN 24 H Creatinine 0.85 Estim Creat Clear Calc 73.9 Estimated GFR > 60 Random Glucose 110 Estimat Average Glucose Hemoglobin A1c % Calcium 9.1 Total Bilirubin 0.6 Direct Bilirubin 0.2 AST 28 ALT 45 H Alkaline Phosphatase 139 H Total Protein 6.8 Albumin 4.1 Triglycerides 96 Cholesterol 131 LDL Cholesterol, Calc 69 HDL Cholesterol 43 Vitamin B12 25-OH Vitamin D Total Folate TSH Urine Color YELLOW Urine Appearance CLEAR Urine pH 6.0 Ur Specific [place] >= 1.030 H Urine Protein TRACE Urine Glucose (UA) NEG Urine Ketones 5 Urine Blood NEG Urine Nitrite NEG Ur Leukocyte Esterase NEG Urine Opiates Screen Urine Fentanyl Screen Ur Barbiturates Screen Ur Phencyclidine Scrn Ur Amphetamines Screen U Benzodiazepines Scrn Urine Cocaine Screen U Marijuana (THC) Screen Ethyl Alcohol COVID-19 ([facility]) COVID-19 Fridge Com 09/10/21 07:22 WBC RBC Hgb Hct MCV MCH MCHC RDW Plt Count MPV Immature Gran % (Auto) Neut % (Auto) Lymph % (Auto) Os[place] % (Auto) Eos % (Auto) Baso % (Auto) Lymph # (Auto) [place] # (Auto) Eos # (Auto) Baso # (Auto) Abs Immat Gran (auto) Absolute Neuts (auto) Absolute Nucleated RBC Nucleated RBC % (auto) Sodium Potassium Chloride Carbon Dioxide Anion Gap BUN Creatinine Estim Creat Clear Calc Estimated GFR Random Glucose Estimat Average Glucose 123 Hemoglobin A1c % 5.9 Calcium Total Bilirubin Direct Bilirubin AST ALT Alkaline Phosphatase Total Protein Albumin Triglycerides Cholesterol LDL Cholesterol, Calc HDL Cholesterol Vitamin B12 25-OH Vitamin D Total Folate TSH Urine Color Urine Appearance Urine pH Ur Specific [place] Urine Protein Urine Glucose (UA) Urine Ketones Urine Blood Urine Nitrite Ur Leukocyte Esterase Urine Opiates Screen Urine Fentanyl Screen Ur Barbiturates Screen Ur Phencyclidine Scrn Ur Amphetamines Screen U Benzodiazepines Scrn Urine Cocaine Screen U Marijuana (THC) Screen Ethyl Alcohol COVID-19 ([facility]) COVID-19 Clin Com Assessment and Plan Final Anesthetic Review Family History of Problems with Anesthesia: No History of Problems with Anesthesia: No
--- NOTE | 2021-09-11 08:39 | HO.POSTANES ---
Post Anesthesia Evaluation Post Anesthesia Evaluation Vital Signs: Vital Signs Temp Pulse Resp BP Pulse Ox 09/11/21 08:21 108 H 18 123/75 98 09/11/21 08:06 110 H 18 120/87 98 09/11/21 08:01 108 H 18 132/79 98 09/11/21 07:56 107 H 20 130/82 100 09/11/21 07:51 98.8 F 110 H 16 134/89 100 09/11/21 06:43 98.2 F 94 16 141/77 H 98 Anesthesia: General Mental Status: Awake Pain Control: Satisfactory Nausea/Vomiting: None Hydration: Adequate Anesthesia-Related Issues: No Anes. Related Issues
[2021-09-11] MEDS: Cholecalciferol (Vitamin D3) 10 MCG TABLET PO (09:49)
[2021-09-11] MEDS: Ferrous Sulfate 324 MG TABLET.DR PO (09:49)
[2021-09-11] MEDS: Apixaban 5 MG TABLET PO ×2 (09:49→19:56)
[2021-09-11] MEDS: Docusate Sodium 100 MG CAPSULE PO ×2 (09:49→19:57)
--- NOTE | 2021-09-11 13:47 | MHC.SLORD ---
Speech Language Pathology Order Status: Received order for bedside dysphagia evaluation. Patient was followed by speech- Evaluated and then re-evaluated 09/02, 09/03. He was recommended chopped/advanced solids (NDD3) and thin liquids with 1:1 supervision to ensure compensatory strategies and aspiration precautions. [employer] sent [place]ball Message to ordering MD and clinical coordinator. MD reported that patient has improved greatly. [employer] spoke with clinical coordinator by phone. Per clinical coordinator, patient has improved since his evaluation and applies strategies independently. Staff are hoping to have patient re-evaluated to potentially upgrade to regular solids and independent meals if deemed safe. Patient is reportedly sleeping after ECT treatment and it was requested for [employer] to re-evaluate patient tomorrow morning.
[2021-09-11] MEDS: Atorvastatin Calcium 40 MG TABLET PO (19:56)
[2021-09-11] MEDS: Erythromycin Base 0.5% Oph Oin 1 GM TUBE 1 CM EYE-BOTH (19:57)
[2021-09-11] MEDS: traZODone HCL 50 MG TABLET PO (20:11)
[2021-09-11] MEDS: Sennosides 8.6 MG TABLET PO (20:11)
[2021-09-11] MEDS: Nortriptyline HCl 25 MG CAPSULE 50 MG PO (20:11)
[2021-09-11] MEDS: OLANZapine 7.5 MG TABLET PO (20:11)
--- NOTE | 2021-09-11 22:02 | HO.PSYCHPN ---
Subjective Subjective Date of Service: 09/11/21 Reason For Visit: Recurrent major depressive D/O Severe Subjective Notes: Conditional Voluntary Healthcare Proxy: Yes Guardianship: No Interim History: Patient doing better with ECT looking to have a regular diet unsteady in his feet post ECT would not give lorazepam Review of Systems Unsteady post ECT Mental Status Exam Mental Status Exam Patient Appearance: Well Grooomed Patient Orientation: Person Level of Consciousness: Awake Patient Behavior: Guarded and Passive Mood Description: Constricted Affect Description: Constricted Patient Cognition Impaired: Yes Ability to Follow Directions: Good Speech Pattern: Clear Hallucinations: None Delusions: Not Present Thought Process: Linear Thought Content: positive for Circumstantial Judgement: Fair Diagnostics Vital Signs (24Hr): Vital Signs - 24 hr 09/11/21 06:43 09/11/21 07:51 09/11/21 07:56 Temperature 98.2 F 98.8 F Pulse Rate 94 110 H 107 H Respiratory Rate 16 16 20 Blood Pressure 141/77 H 134/89 130/82 Pulse Oximetry 98 100 100 09/11/21 08:01 09/11/21 08:06 09/11/21 08:21 Temperature Pulse Rate 108 H 110 H 108 H Respiratory Rate 18 18 18 Blood Pressure 132/79 120/87 123/75 Pulse Oximetry 98 98 98 09/11/21 08:36 09/11/21 08:39 09/11/21 20:46 Temperature 98.8 F 97.4 F 98.3 F Pulse Rate 101 H 98 94 Respiratory Rate 18 18 Blood Pressure 123/69 119/62 107/70 Pulse Oximetry 96 95 96 BMI result Body Mass Index 26.0 Labs Results: 08/25/21 22:04 09/10/21 07:22 Labs: Laboratory Results - last 48 hr 09/10/21 09/10/21 07:22 07:22 Sodium 141 Potassium 4.4 D Chloride 108 Carbon Dioxide 27 Anion Gap 10 L BUN 24 H Creatinine 0.85 Estim Creat Clear Calc 73.9 Estimated GFR > 60 Random Glucose 110 Estimat Average Glucose 123 Hemoglobin A1c % 5.9 Calcium 9.1 Triglycerides 96 Cholesterol 131 LDL Cholesterol, Calc 69 HDL Cholesterol 43 Imaging Radiology Impressions: ITS Impressions Chest X-Ray 08/20/21 10:00 IMPRESSION: 1. Lungs grossly clear. No infiltrate or effusion. 2. Hiatal hernia, approximately [address] 08/28/21 15:52 IMPRESSION: No acute intracranial findings. Atrophy and nonspecific periventricular white matter disease similar to previous exams. Medications Medications Current Medications Acetaminophen (Acetaminophen 325 Mg Tablet) 650 mg PO Q6H PRN PRN Reason: Headache/Pain Mild Scale (1-3) Last Admin: 09/07/21 07:54 Dose: 650 mg Documented by: Al Hydroxide/Mg Hydroxide (Magnesium Hydrox/Alum Hydrox 30 Ml Oral.Susp) 30 ml PO Q6H PRN PRN Reason: Heartburn/Nausea Apixaban (Apixaban 5 Mg Tablet) 5 mg PO BID [facility] Last Admin: 09/11/21 19:56 Dose: 5 mg Documented by: Atorvastatin Calcium (Atorvastatin Calcium 40 Mg Tablet) 40 mg PO BEDTIME [facility] Last Admin: 09/11/21 19:56 Dose: 40 mg Documented by: Benzonatate (Benzonatate 100 Mg Capsule) 100 mg PO TID PRN PRN Reason: cough Docusate Sodium (Docusate Sodium 100 Mg Capsule) 100 mg PO BID [facility] Last Admin: 09/11/21 19:57 Dose: 100 mg Documented by: Erythromycin (Erythromycin Base 0.5% Oph Oin 1 Gm Tube) 1 cm EYE-BOTH BID [facility] Last Admin: 09/11/21 19:57 Dose: 1 cm Documented by: Ferrous Sulfate (Ferrous Sulfate 324 Mg Tablet.Dr) 324 mg PO DAILY [facility] Last Admin: 09/11/21 09:49 Dose: 324 mg Documented by: Hydroxyzine HCl (Hydroxyzine Hcl 25 Mg Tablet) 25 mg PO BEDTIME PRN PRN Reason: Anxiety Last Admin: 08/25/21 05:36 Dose: 25 mg Documented by: Magnesium Hydroxide (Milk Of Magnesia 30 Ml Oral.Susp) 30 ml PO DAILY PRN PRN Reason: Constipation Last Admin: 09/09/21 20:35 Dose: 30 ml Documented by: Nortriptyline HCl (Nortriptyline Hcl 25 Mg Capsule) 50 mg PO BEDTIME [facility] Last Admin: 09/11/21 20:11 Dose: 50 mg Documented by: Olanzapine (Olanzapine 2.5 Mg Tablet) 1.25 mg PO DAILY PRN PRN Reason: Anxiety Last Admin: 09/01/21 11:18 Dose: 1.25 mg Documented by: Olanzapine (Olanzapine 7.5 Mg Tablet) 7.5 mg PO BEDTIME [facility] Last Admin: 09/11/21 20:11 Dose: 7.5 mg Documented by: Omeprazole (Omeprazole 20 Mg Isacc.) 20 mg PO DAILY@0630 [facility] Last Admin: 09/10/21 08:01 Dose: 20 mg Documented by: Oxybutynin Chloride (Oxybutynin Chloride Er 5 Mg Tab.Er.24) 5 mg PO DAILY [facility] Last Admin: 09/11/21 09:49 Dose: 5 mg Documented by: Senna (Sennosides 8.6 Mg Tablet) 8.6 mg PO BEDTIME [facility] Last Admin: 09/11/21 20:11 Dose: 8.6 mg Documented by: Trazodone HCl (Trazodone Hcl 50 Mg Tablet) 50 mg PO BEDTIME [facility] Last Admin: 09/11/21 20:11 Dose: 50 mg Documented by: Trazodone HCl (Trazodone Hcl 50 Mg Tablet) 50 mg PO BEDTIME PRN PRN Reason: insomnia Vitamin D (Cholecalciferol (Vitamin D3) 10 Mcg Tablet) 10 mcg PO DAILY [facility] Last Admin: 09/11/21 09:49 Dose: 10 mcg Documented by: Allergies Allergies Allergy/AdvReac Type Severity Reaction Status Date / Time No Known Allergies Allergy Verified 01/25/21 06:43 [No Known Allergies*] Assessment & Plan Assessment & Plan (1) Major depressive disorder, recurrent, severe with psychotic features: Status: Acute Code(s): F33.3 - Major depressive disorder, recurrent, severe with psychotic symptoms Assessment and Plan: José Luis is a 76 year old male who carries a dx of MDD, recurrent, severe with hx of psychosis, catatonia. He is known to [facility] for similar presentation and has received ECT with good effect in the past. Case reviewed with Dr. Sims he does not feel there is any different option at this time besides ECT. We did discuss restate belies in the patient and then trying TMS risk ketamine. Case reviewed with patient's healthcare proxy she clearly feels that patient has responded well to ECT generally understands limited options at this time feels that patient not able to make decision at this time The patient fell at 13:30 on Tuesday 08/28. There was no changes in his mental status but he had a laceration on his left eye. We ordered CT scan head and hospitalist consult that were normal. Since then, he was placed him on one-to-one but recently we change his level of observation Plan: 1. Change one-to-one observation to 15 minutes checks while awake. 2. Continue Pamelor and Zyprexa. 3. Pamelor level is pending but basic metabolic panel, hemoglobin A1c and lipid profile came back without any evidence of metabol 4. Reassessment with results 09/11/2021 Patient status post ECT much crowley affect good response generally some unsteadiness post ECT would avoid Ativan I spent minutes with the patient and/or on the patient floor today, greater than?50% of which was spent counseling/coordinating care. Reason for contiued inpatient stay Substantial Risk for: inability to function and rapid decompensation
[2021-09-12 06:00] VITALS: BP 118/73; PULSE 97; RESP 18; TEMP 36.6; O2SAT 96
[2021-09-12] MEDS: Omeprazole 20 MG CAPSULE.DR PO (06:31)
[2021-09-12 07:00] VITALS: BMI 26.2
[2021-09-12] MEDS: Docusate Sodium 100 MG CAPSULE PO ×2 (10:46→19:43)
[2021-09-12] MEDS: Ferrous Sulfate 324 MG TABLET.DR PO (10:48)
[2021-09-12] MEDS: Apixaban 5 MG TABLET PO ×2 (10:48→19:42)
[2021-09-12] MEDS: Cholecalciferol (Vitamin D3) 10 MCG TABLET PO (10:48)
--- NOTE | 2021-09-12 11:25 | MHC.SL.SWA ---
Speech Pathologist Impression: Risk of Aspiration Oralpharyngeal Dysphagia Risk of Aspiration Due to: Poor PO Intake Dysphasia Diet Status: Upgrade Liquid Consistency and Strategies for Safe Swallow: Liquid Intake Recommendation: Thin Liquid Intake Strategies: Small Sips No Straws Solid Food Consistency: Dietary Recommendations: Regular Additional Modifications to Solid Foods: Patient is recommended upgrade to unmodified diet REGULAR solids and THIN liquids, with pills WHOLE in PUREE or LIQUID. Patient was observed to utilize strategies independently- taking individual bites of food, clearing residue with subsequent dry swallow, alternating bites with sips of liquid as needed, taking small individual sips of liquid. When asked to recall swallow strategies, patient stated that he needs to take his time and take small bites/sips. Patient is able to self-feed without difficulty and recalls swallow strategies. Patient may benefit from intermittent supervision/ check-in to monitor tolerance and provide education/reminders RE: aspiration precautions as needed. Further ST intervention is no longer warranted as patient is tolerating unmodified consistencies. Please re-refer with any changes or further concern. Oral Medication Intake: Whole with Liquid Compensatory Strategies and Precautions to be Taken for Safe Swallow: Sitting Upright (90 deg) No Straw Small Bites and Sips Alternate Liquids/Solids Rate of Ingestion Change Supervision While Eating and Drinking for Safe Swallow: Intermittent Supervision as needed Swallowing Recommended Treatments: Compens. Strategy Educat. Recommendation for Speech: d/c Repairer [employer]icks Clinican/Clinical Fellow: Yes: Margareth Hazel Supervisory Statement: I have reviewed and agree with the student/clinical fellow's documentation: Yes Speech Language Pathologist: Skye Seo M.A., CCC-HIDE AND SKIN PROCESSING WORKER
--- NOTE | 2021-09-12 13:40 | P.PNPSI_ITS ---
Subjective Subjective Date of Service: 09/12/21 Reason For Visit: Recurrent major depressive D/O Severe Subjective Notes: Conditional Voluntary Interim History: The nursing staff reported the patient is doing much better. He is feeding by himself and he has seen more active in the unit but still spends most of the time in his room. The nutrition is reported that he does not need one-to-one for feeding. On interview the patient reports he is doing fine he looks less dysphoric and his speech is spontaneous at this moment. Mental Status Exam Mental Status Exam Patient Appearance: Well Grooomed Patient Orientation: Person Level of Consciousness: Awake Patient Behavior: Cooperative Mood Description: Depressed Affect Description: Constricted Ability to Follow Directions: Good Speech Pattern: Clear Hallucinations: None Delusions: Not Present Thought Process: Linear Thought Content: positive for Intact Judgement: Fair Diagnostics Vital Signs (24Hr): Vital Signs - 24 hr 09/11/21 20:46 09/12/21 06:00 Temperature 98.3 F 97.9 F Pulse Rate 94 97 Respiratory Rate 18 18 Blood Pressure 107/70 118/73 Pulse Oximetry 96 96 BMI result Body Mass Index 26.2 Labs Results: 08/25/21 22:04 09/10/21 07:22 Imaging Radiology Impressions: ITS Impressions Chest X-Ray 08/20/21 10:00 IMPRESSION: 1. Lungs grossly clear. No infiltrate or effusion. 2. Hiatal hernia, approximately [address] 08/28/21 15:52 IMPRESSION: No acute intracranial findings. Atrophy and nonspecific periventricular white matter disease similar to previous exams. Medications Medications Current Medications Acetaminophen (Acetaminophen 325 Mg Tablet) 650 mg PO Q6H PRN PRN Reason: Headache/Pain Mild Scale (1-3) Last Admin: 09/07/21 07:54 Dose: 650 mg Documented by: Al Hydroxide/Mg Hydroxide (Magnesium Hydrox/Alum Hydrox 30 Ml Oral.Susp) 30 ml PO Q6H PRN PRN Reason: Heartburn/Nausea Apixaban (Apixaban 5 Mg Tablet) 5 mg PO BID REPLACED BY [facility] Last Admin: 09/12/21 10:48 Dose: 5 mg Documented by: Atorvastatin Calcium (Atorvastatin Calcium 40 Mg Tablet) 40 mg PO BEDTIME REPLACED BY [facility] Last Admin: 09/11/21 19:56 Dose: 40 mg Documented by: Benzonatate (Benzonatate 100 Mg Capsule) 100 mg PO TID PRN PRN Reason: cough Docusate Sodium (Docusate Sodium 100 Mg Capsule) 100 mg PO BID REPLACED BY [facility] Last Admin: 09/12/21 10:46 Dose: 100 mg Documented by: Erythromycin (Erythromycin Base 0.5% Oph Oin 1 Gm Tube) 1 cm EYE-BOTH BID REPLACED BY [facility] Last Admin: 09/12/21 10:48 Dose: Not Given Documented by: Ferrous Sulfate (Ferrous Sulfate 324 Mg Tablet.) 324 mg PO DAILY REPLACED BY [facility] Last Admin: 09/12/21 10:48 Dose: 324 mg Documented by: Hydroxyzine HCl (Hydroxyzine Hcl 25 Mg Tablet) 25 mg PO BEDTIME PRN PRN Reason: Anxiety Last Admin: 08/25/21 05:36 Dose: 25 mg Documented by: Magnesium Hydroxide (Milk Of Magnesia 30 Ml Oral.Susp) 30 ml PO DAILY PRN PRN Reason: Constipation Last Admin: 09/09/21 20:35 Dose: 30 ml Documented by: Nortriptyline HCl (Nortriptyline Hcl 25 Mg Capsule) 50 mg PO BEDTIME REPLACED BY [facility] Last Admin: 09/11/21 20:11 Dose: 50 mg Documented by: Olanzapine (Olanzapine 2.5 Mg Tablet) 1.25 mg PO DAILY PRN PRN Reason: Anxiety Last Admin: 09/01/21 11:18 Dose: 1.25 mg Documented by: Olanzapine (Olanzapine 7.5 Mg Tablet) 7.5 mg PO BEDTIME REPLACED BY [facility] Last Admin: 09/11/21 20:11 Dose: 7.5 mg Documented by: Omeprazole (Omeprazole 20 Mg Capsule.) 20 mg PO DAILY@0630 REPLACED BY [facility] Last Admin: 09/12/21 06:31 Dose: 20 mg Documented by: Oxybutynin Chloride (Oxybutynin Chloride Er 5 Mg Tab.Er.24) 5 mg PO DAILY REPLACED BY [facility] Last Admin: 09/12/21 10:46 Dose: 5 mg Documented by: Senna (Sennosides 8.6 Mg Tablet) 8.6 mg PO BEDTIME REPLACED BY [facility] Last Admin: 09/11/21 20:11 Dose: 8.6 mg Documented by: Trazodone HCl (Trazodone Hcl 50 Mg Tablet) 50 mg PO BEDTIME REPLACED BY [facility] Last Admin: 09/11/21 20:11 Dose: 50 mg Documented by: Trazodone HCl (Trazodone Hcl 50 Mg Tablet) 50 mg PO BEDTIME PRN PRN Reason: insomnia Vitamin D (Cholecalciferol (Vitamin D3) 10 Mcg Tablet) 10 mcg PO DAILY [facility] Last Admin: 09/12/21 10:48 Dose: 10 mcg Documented by: Allergies Allergies Allergy/AdvReac Type Severity Reaction Status Date / Time No Known Allergies Allergy Verified 01/25/21 06:43 [No Known Allergies*] Assessment & Plan Assessment & Plan (1) Major depressive disorder, recurrent, severe with psychotic features: Status: Acute Code(s): F33.3 - Major depressive disorder, recurrent, severe with psychotic symptoms Assessment and Plan: José Luis is a 76 year old male who carries a dx of MDD, recurrent, severe with hx of psychosis, catatonia. He is known to [facility] for similar presentation and has received ECT with good effect in the past. Case reviewed with Dr. Sims he does not feel there is any different option at this time besides ECT. We did discuss restate belies in the patient and then trying TMS risk ketamine. Case reviewed with patient's healthcare proxy she long rona feels that patient has responded well to ECT generally understands limited options at this time feels that patient not able to make decision at this time The patient fell at 13:30 on Tuesday 08/28. There was no changes in his mental status but he had a laceration on his left eye. We ordered CT scan head and hospitalist consult that were normal. Since then, he was placed him on one-to-one but recently we change his level of observation Plan: 1. Continue same treatment. 2. Continue ECT. 3. Waiting for nortriptyline level I spent minutes with the patient and/or on the patient floor today, greater than?50% of which was spent counseling/coordinating care. Reason for contiued inpatient stay Substantial Risk for: inability to function, rapid decompensation and med/psych decompensation
[2021-09-12] MEDS: Nortriptyline HCl 25 MG CAPSULE 50 MG PO (19:41)
[2021-09-12] MEDS: Atorvastatin Calcium 40 MG TABLET PO (19:42)
[2021-09-12] MEDS: Sennosides 8.6 MG TABLET PO (19:42)
[2021-09-12] MEDS: traZODone HCL 50 MG TABLET PO (19:42)
[2021-09-12] MEDS: OLANZapine 7.5 MG TABLET PO (19:43)
[2021-09-12 19:53] VITALS: BP 118/59; PULSE 91; RESP 19; TEMP 37.1; O2SAT 96
[2021-09-13] VITALS (8 sets, daily range): BP systolic 97–143; BP diastolic 64–86; PULSE 93–138; RESP 16–20; TEMP 36.8–37.3; O2SAT 95–97
--- NOTE | 2021-09-13 07:05 | HO.ANESPROP2 ---
[facility] Active Problems Active Problems: All Active Problems (Updated 08/21/21 @ 09:05 by Leila Bryson APRN) Major depressive disorder, recurrent, severe with psychotic features (Acute) Depression (Acute) Physical deconditioning (Acute) Preoperative cardiovascular examination (Acute) Anemia (Acute) GERD (gastroesophageal reflux disease) (Acute) Past Medical History Medical History COVID-19 vaccine administered Dementia Depression Diverticulitis of colon with perforation GERD (gastroesophageal reflux disease) History of electroconvulsive therapy HTN (hypertension) Hyperlipidemia Major depressive disorder, recurrent, severe with psychotic features Pulmonary embolism SVT (supraventricular tachycardia) Functional capacity: uses cane/walker Family History Family History Brother Blood clot in vein Other No history of cardiac disorder Family history of problems with anesthesia: No Surgical History Surgical History H/O colonoscopy H/O hernia repair History of colostomy reversal History of esophagogastroduodenoscopy (EGD) Status post Paula's procedure History of Problems with Anesthesia: No Social History Social History Household Members: Other Housing: Assisted Living Facility Are you a primary daycare teacher to a significant other at home: No Do you presently have visiting nurse or other home services: No Alcohol intake: former Patient Tobacco Use Status: Never used Tobacco Second Hand Smoke Exposure: No Use of substances other than those prescribed or required for medical reasons: No Currently Displaying Signs/Symptoms of Drug Intoxication Withdrawal: No Have you been hit, kicked, punched, or otherwise hurt by someone within the past year? If so, by whom?: No Do you feel safe in your current relationship?: No Current Relationship Is there a partner from a previous relationship who is making you feel unsafe now?: No Are you made to feel afraid or neglected: No Spiritual Healthcare Practices: refusing to respond Bahai Healthcare Practices: refusing to respond Cultural Healthcare Practices: refusing to respond Are you DNR?: No Advance Directives: Yes Advance Directives Information Provided: No Advance Directives on File: Yes Advance Directives Date on File: 07/27/20 Do you have thoughts of harming others: None Do you have a plan to hurt others: No Plan Recently lost weight without trying: Unsure Poor oral hygiene: Yes service: Yes Current occupational status: retired Sexual orientation: Straight/Heterosexual Meds Allergies Allergy/AdvReac Type Severity Reaction Status Date / Time No Known Allergies Allergy Verified 01/25/21 06:43 [No Known Allergies*] Active Medications: Current Medications Acetaminophen (Acetaminophen 325 Mg Tablet) 650 mg PO Q6H PRN PRN Reason: Headache/Pain Mild Scale (1-3) Last Admin: 09/07/21 07:54 Dose: 650 mg Documented by: Al Hydroxide/Mg Hydroxide (Magnesium Hydrox/Alum Hydrox 30 Ml Oral.Susp) 30 ml PO Q6H PRN PRN Reason: Heartburn/Nausea Apixaban (Apixaban 5 Mg Tablet) 5 mg PO BID [facility] Last Admin: 09/12/21 19:42 Dose: 5 mg Documented by: Atorvastatin Calcium (Atorvastatin Calcium 40 Mg Tablet) 40 mg PO BEDTIME [facility] Last Admin: 09/12/21 19:42 Dose: 40 mg Documented by: Benzonatate (Benzonatate 100 Mg Capsule) 100 mg PO TID PRN PRN Reason: cough Docusate Sodium (Docusate Sodium 100 Mg Capsule) 100 mg PO BID [facility] Last Admin: 09/12/21 19:43 Dose: 100 mg Documented by: Erythromycin (Erythromycin Base 0.5% Oph Oin 1 Gm Tube) 1 cm EYE-BOTH BID [facility] Last Admin: 09/12/21 19:52 Dose: Not Given Documented by: Ferrous Sulfate (Ferrous Sulfate 324 Mg Tablet.) 324 mg PO DAILY [facility] Last Admin: 09/12/21 10:48 Dose: 324 mg Documented by: Hydroxyzine HCl (Hydroxyzine Hcl 25 Mg Tablet) 25 mg PO BEDTIME PRN PRN Reason: Anxiety Last Admin: 08/25/21 05:36 Dose: 25 mg Documented by: Lactated Ringer's (Lr) 1,000 mls @ 50 mls/hr IVCONT .Q20H [facility] Magnesium Hydroxide (Milk Of Magnesia 30 Ml Oral.Susp) 30 ml PO DAILY PRN PRN Reason: Constipation Last Admin: 09/09/21 20:35 Dose: 30 ml Documented by: Nortriptyline HCl (Nortriptyline Hcl 25 Mg Capsule) 50 mg PO BEDTIME [facility] Last Admin: 09/12/21 19:41 Dose: 50 mg Documented by: Olanzapine (Olanzapine 2.5 Mg Tablet) 1.25 mg PO DAILY PRN PRN Reason: Anxiety Last Admin: 09/01/21 11:18 Dose: 1.25 mg Documented by: Olanzapine (Olanzapine 7.5 Mg Tablet) 7.5 mg PO BEDTIME ROMMEL Last Admin: 09/12/21 19:43 Dose: 7.5 mg Documented by: Omeprazole (Omeprazole 20 Mg Capsule.Dr) 20 mg PO DAILY@0630 [facility] Last Admin: 09/12/21 06:31 Dose: 20 mg Documented by: Oxybutynin Chloride (Oxybutynin Chloride Er 5 Mg Tab.Er.24) 5 mg PO DAILY [facility] Last Admin: 09/12/21 10:46 Dose: 5 mg Documented by: Senna (Sennosides 8.6 Mg Tablet) 8.6 mg PO BEDTIME [facility] Last Admin: 09/12/21 19:42 Dose: 8.6 mg Documented by: Trazodone HCl (Trazodone Hcl 50 Mg Tablet) 50 mg PO BEDTIME [facility] Last Admin: 09/12/21 19:42 Dose: 50 mg Documented by: Trazodone HCl (Trazodone Hcl 50 Mg Tablet) 50 mg PO BEDTIME PRN PRN Reason: insomnia Vitamin D (Cholecalciferol (Vitamin D3) 10 Mcg Tablet) 10 mcg PO DAILY [facility] Last Admin: 09/12/21 10:48 Dose: 10 mcg Documented by: Home Medications Medication Instructions Recorded Confirmed Last Taken Type atorvastatin 40 mg tablet 1 tab PO BEDTIME 08/18/21 08/18/21 Unknown History benztropine 1 mg tablet 1 tab PO BID 08/18/21 08/18/21 Unknown History finasteride 5 mg tablet 1 tab PO DAILY 08/18/21 08/18/21 Unknown History fluoxetine 10 mg capsule 1 cap PO DAILY 08/18/21 08/18/21 Unknown History olanzapine 10 mg tablet 5 mg PO BEDTIME 08/18/21 08/18/21 Unknown History olanzapine 2.5 mg tablet 0.5 tab PO DAILY PRN 08/18/21 08/18/21 Unknown History omeprazole 20 mg capsule,delayed 1 cap PO DAILY 08/18/21 08/18/21 Unknown History release propranolol 10 mg tablet 1 tab PO TID PRN 08/18/21 08/18/21 Unknown History trazodone 50 mg tablet 50 mg PO BEDTIME 08/18/21 08/18/21 Unknown History Exam Exam Date and Time: September 13, 2021 0705 Height,Weight and Vital Signs: Height 5 ft 10 in Weight 82.7 kg Last Vital Signs Temp 98.6 F 09/13/21 06:38 Pulse 95 09/13/21 06:38 Resp 16 09/13/21 06:38 BP 129/76 09/13/21 06:38 Pulse Ox 97 09/13/21 06:38 Pertinent Lab Results Pertinent Lab Results: Laboratory Tests 08/17/21 08/17/21 08/17/21 20:30 20:31 20:31 WBC RBC Hgb Hct MCV MCH MCHC RDW Plt Count MPV Immature Gran % (Auto) Neut % (Auto) Lymph % (Auto) [place] % (Auto) Eos % (Auto) Baso % (Auto) Lymph # (Auto) [place] # (Auto) Eos # (Auto) Baso # (Auto) Abs Immat Gran (auto) Absolute Neuts (auto) Absolute Nucleated RBC Nucleated RBC % (auto) Sodium Potassium Chloride Carbon Dioxide Anion Gap BUN Creatinine Estim Creat Clear Calc Estimated GFR Random Glucose Estimat Average Glucose Hemoglobin A1c % Calcium Total Bilirubin Direct Bilirubin AST ALT Alkaline Phosphatase Total Protein Albumin Triglycerides Cholesterol LDL Cholesterol, Calc HDL Cholesterol Vitamin B12 25-OH Vitamin D Total Folate TSH Urine Color YELLOW Urine Appearance HAZY Urine pH 6.0 Ur Specific [place] 1.025 Urine Protein NEG Urine Glucose (UA) NEG Urine Ketones NEG Urine Blood NEG Urine Nitrite NEG Ur Leukocyte Esterase NEG Urine Opiates Screen Not Detected Urine Fentanyl Screen POSITIVE H Ur Barbiturates Screen Not Detected Ur Phencyclidine Scrn Not Detected Ur Amphetamines Screen Not Detected U Benzodiazepines Scrn Not Detected Urine Cocaine Screen Not Detected U Marijuana (THC) Screen Not Detected Ethyl Alcohol COVID-19 ([facility]) Negative COVID-19 Clin Com See Note 08/17/21 08/17/21 08/17/21 21:16 21:16 21:17 WBC 5.4 RBC 4.22 L Hgb 14.0 Hct 40.9 L MCV 96.9 MCH 33.2 H MCHC 34.2 RDW 13.0 Plt Count 160 MPV 8.7 L Immature Gran % (Auto) 0.2 Neut % (Auto) 64.6 Lymph % (Auto) 21.5 [place] % (Auto) 10.4 Eos % (Auto) 3.1 Baso % (Auto) 0.2 Lymph # (Auto) 1.2 [place] # (Auto) 0.6 Eos # (Auto) 0.2 Baso # (Auto) 0.0 Abs Immat Gran (auto) 0.01 Absolute Neuts (auto) 3.5 Absolute Nucleated RBC 0.000 Nucleated RBC % (auto) 0.0 Sodium 143 Potassium 4.0 Chloride 108 Carbon Dioxide 27 Anion Gap 12 BUN 21 H Creatinine 1.03 Estim Creat Clear Calc 60.6 Estimated GFR > 60 Random Glucose 169 H Estimat Average Glucose Hemoglobin A1c % Calcium 9.7 D Total Bilirubin Direct Bilirubin AST ALT Alkaline Phosphatase Total Protein Albumin Triglycerides Cholesterol LDL Cholesterol, Calc HDL Cholesterol Vitamin B12 25-OH Vitamin D Total Folate TSH Urine Color Urine Appearance Urine pH Ur Specific [place] Urine Protein Urine Glucose (UA) Urine Ketones Urine Blood Urine Nitrite Ur Leukocyte Esterase Urine Opiates Screen Urine Fentanyl Screen Ur Barbiturates Screen Ur Phencyclidine Scrn Ur Amphetamines Screen U Benzodiazepines Scrn Urine Cocaine Screen U Marijuana (THC) Screen Ethyl Alcohol < 10 COVID-19 ([facility]) COVID-19 Clin Com 08/19/21 08/20/21 08/20/21 09:11 08:25 08:25 WBC RBC Hgb Hct MCV MCH MCHC RDW Plt Count MPV Immature Gran % (Auto) Neut % (Auto) Lymph % (Auto) [place] % (Auto) Eos % (Auto) Baso % (Auto) Lymph # (Auto) [place] # (Auto) Eos # (Auto) Baso # (Auto) Abs Immat Gran (auto) Absolute Neuts (auto) Absolute Nucleated RBC Nucleated RBC % (auto) Sodium 140 Potassium 4.1 Chloride 106 Carbon Dioxide 19 L Anion Gap 19 BUN 30 H Creatinine 0.91 Estim Creat Clear Calc 68.6 Estimated GFR > 60 Random Glucose 84 D Estimat Average Glucose 120 Hemoglobin A1c % 5.8 Calcium 9.4 Total Bilirubin 1.4 H Direct Bilirubin AST 23 ALT 22 Alkaline Phosphatase 124 H Total Protein 6.9 Albumin 4.3 Triglycerides 118 Cholesterol 153 LDL Cholesterol, Calc 90 HDL Cholesterol 40 Vitamin B12 25-OH Vitamin D Total 24.8 Folate TSH 0.60 Urine Color Urine Appearance Urine pH Ur Specific [place] Urine Protein Urine Glucose (UA) Urine Ketones Urine Blood Urine Nitrite Ur Leukocyte Esterase Urine Opiates Screen Urine Fentanyl Screen Ur Barbiturates Screen Ur Phencyclidine Scrn Ur Amphetamines Screen U Benzodiazepines Scrn Urine Cocaine Screen U Marijuana (THC) Screen Ethyl Alcohol COVID-19 ([facility]) Negative COVID-19 Clin Com See Note 08/20/21 08/25/21 08/25/21 08:25 22:04 22:04 WBC 5.6 RBC 4.05 L Hgb 13.8 L Hct 38.5 L MCV 95.1 MCH 34.1 H MCHC 35.8 RDW 13.2 Plt Count 165 MPV 8.7 L Immature Gran % (Auto) Neut % (Auto) Lymph % (Auto) [place] % (Auto) Eos % (Auto) Baso % (Auto) Lymph # (Auto) [place] # (Auto) Eos # (Auto) Baso # (Auto) Abs Immat Gran (auto) Absolute Neuts (auto) Absolute Nucleated RBC 0.000 Nucleated RBC % (auto) 0.0 Sodium 143 Potassium 3.6 Chloride 108 Carbon Dioxide 24 Anion Gap 15 BUN 34 H Creatinine 0.90 Estim Creat Clear Calc 69.4 Estimated GFR > 60 Random Glucose 115 D Estimat Average Glucose Hemoglobin A1c % Calcium 9.5 Total Bilirubin 1.3 H Direct Bilirubin AST 32 ALT 34 Alkaline Phosphatase 121 H Total Protein 6.3 L Albumin 4.0 Triglycerides Cholesterol LDL Cholesterol, Calc HDL Cholesterol Vitamin B12 668 25-OH Vitamin D Total Folate 11.8 TSH Urine Color Urine Appearance Urine pH Ur Specific [place] Urine Protein Urine Glucose (UA) Urine Ketones Urine Blood Urine Nitrite Ur Leukocyte Esterase Urine Opiates Screen Urine Fentanyl Screen Ur Barbiturates Screen Ur Phencyclidine Scrn Ur Amphetamines Screen U Benzodiazepines Scrn Urine Cocaine Screen U Marijuana (THC) Screen Ethyl Alcohol COVID-19 ([facility]) COVID-19 Clin Com 08/25/21 09/09/21 09/10/21 22:35 12:54 07:22 WBC RBC Hgb Hct MCV MCH MCHC RDW Plt Count MPV Immature Gran % (Auto) Neut % (Auto) Lymph % (Auto) [place] % (Auto) Eos % (Auto) Baso % (Auto) Lymph # (Auto) [place] # (Auto) Eos # (Auto) Baso # (Auto) Abs Immat Gran (auto) Absolute Neuts (auto) Absolute Nucleated RBC Nucleated RBC % (auto) Sodium 141 Potassium 4.4 D Chloride 108 Carbon Dioxide 27 Anion Gap 10 L BUN 24 H Creatinine 0.85 Estim Creat Clear Calc 73.9 Estimated GFR > 60 Random Glucose 110 Estimat Average Glucose Hemoglobin A1c % Calcium 9.1 Total Bilirubin 0.6 Direct Bilirubin 0.2 AST 28 ALT 45 H Alkaline Phosphatase 139 H Total Protein 6.8 Albumin 4.1 Triglycerides 96 Cholesterol 131 LDL Cholesterol, Calc 69 HDL Cholesterol 43 Vitamin B12 25-OH Vitamin D Total Folate TSH Urine Color YELLOW Urine Appearance CLEAR Urine pH 6.0 Ur Specific [place] >= 1.030 H Urine Protein TRACE Urine Glucose (UA) NEG Urine Ketones 5 Urine Blood NEG Urine Nitrite NEG Ur Leukocyte Esterase NEG Urine Opiates Screen Urine Fentanyl Screen Ur Barbiturates Screen Ur Phencyclidine Scrn Ur Amphetamines Screen U Benzodiazepines Scrn Urine Cocaine Screen U Marijuana (THC) Screen Ethyl Alcohol COVID-19 ([facility]) COVID-19 [employer]ix 09/10/21 07:22 WBC RBC Hgb Hct MCV MCH MCHC RDW Plt Count MPV Immature Gran % (Auto) Neut % (Auto) Lymph % (Auto) [place] % (Auto) Eos % (Auto) Baso % (Auto) Lymph # (Auto) [place] # (Auto) Eos # (Auto) Baso # (Auto) Abs Immat Gran (auto) Absolute Neuts (auto) Absolute Nucleated RBC Nucleated RBC % (auto) Sodium Potassium Chloride Carbon Dioxide Anion Gap BUN Creatinine Estim Creat Clear Calc Estimated GFR Random Glucose Estimat Average Glucose 123 Hemoglobin A1c % 5.9 Calcium Total Bilirubin Direct Bilirubin AST ALT Alkaline Phosphatase Total Protein Albumin Triglycerides Cholesterol LDL Cholesterol, Calc HDL Cholesterol Vitamin B12 25-OH Vitamin D Total Folate TSH Urine Color Urine Appearance Urine pH Ur Specific [place] Urine Protein Urine Glucose (UA) Urine Ketones Urine Blood Urine Nitrite Ur Leukocyte Esterase Urine Opiates Screen Urine Fentanyl Screen Ur Barbiturates Screen Ur Phencyclidine Scrn Ur Amphetamines Screen U Benzodiazepines Scrn Urine Cocaine Screen U Marijuana (THC) Screen Ethyl Alcohol COVID-19 ([facility]) COVID-19 [address] Com Airway Mallampati Class: II TM Dist: >3cm Neck ROM: Full Denture: Upper Heart: rrr Lungs: cta Assessment and Plan Assessment Anesthesia Assessment: Anesthesia Plan Discussed and Chart Reviewed Final Anesthetic Review Family History of Problems with Anesthesia: No History of Problems with Anesthesia: No NPO: Yes ASA Class: III Final Preanesthetic Review: No Changes in Pt Med Stat, Meds/Allgs Chart Reviewed and Consent Obtained/Reviewed Patient Risk: Intermediate Procedure Risk: Intermediate Anesthetic Plan Anesthetic Plan: GA Disposition: Standard PACU
--- NOTE | 2021-09-13 07:59 | MHC.SHP ---
Pre-Procedural Eval Section A Date of Service: 09/13/21 The patient is an INPATIENT: Yes Changes since office visit: Yes Patient answered all questions; No Cold of Flu in the past 2 weeks, No New Medical Problems and No Changes in Medication The History & Physical has been completed within 30 days and I have reviewed it.: Yes Section B Chief Complaint: Recurrent major depressive D/O Severe Allergies: Allergies Allergy/AdvReac Type Severity Reaction Status Date / Time No Known Allergies Allergy Verified 01/25/21 06:43 [No Known Allergies*] Plan I have reviewed the history and physical and performed a pertinent physical examination on my patient. No changes have occurred unless specified.
--- NOTE | 2021-09-13 08:01 | HO.PSYCHPN ---
Subjective Subjective Reason For Visit: Recurrent major depressive D/O Severe Diagnostics Vital Signs (24Hr): Vital Signs - 24 hr 09/12/21 19:53 09/13/21 06:38 Temperature 98.8 F 98.6 F Pulse Rate 91 95 Respiratory Rate 19 16 Blood Pressure 118/59 L 129/76 Pulse Oximetry 96 97 BMI result Body Mass Index 26.2 Labs Results: 08/25/21 22:04 09/10/21 07:22 Imaging Radiology Impressions: ITS Impressions Chest X-Ray 08/20/21 10:00 IMPRESSION: 1. Lungs grossly clear. No infiltrate or effusion. 2. Hiatal hernia, approximately [address] 08/28/21 15:52 IMPRESSION: No acute intracranial findings. Atrophy and nonspecific periventricular white matter disease similar to previous exams. Medications Medications Current Medications Acetaminophen (Acetaminophen 325 Mg Tablet) 650 mg PO Q6H PRN PRN Reason: Headache/Pain Mild Scale (1-3) Last Admin: 09/07/21 07:54 Dose: 650 mg Documented by: Al Hydroxide/Mg Hydroxide (Magnesium Hydrox/Alum Hydrox 30 Ml Oral.Susp) 30 ml PO Q6H PRN PRN Reason: Heartburn/Nausea Apixaban (Apixaban 5 Mg Tablet) 5 mg PO BID [facility] Last Admin: 09/12/21 19:42 Dose: 5 mg Documented by: Atorvastatin Calcium (Atorvastatin Calcium 40 Mg Tablet) 40 mg PO BEDTIME [facility] Last Admin: 09/12/21 19:42 Dose: 40 mg Documented by: Benzonatate (Benzonatate 100 Mg Capsule) 100 mg PO TID PRN PRN Reason: cough Docusate Sodium (Docusate Sodium 100 Mg Capsule) 100 mg PO BID [facility] Last Admin: 09/12/21 19:43 Dose: 100 mg Documented by: Erythromycin (Erythromycin Base 0.5% Oph Oin 1 Gm Tube) 1 cm EYE-BOTH BID [facility] Last Admin: 09/12/21 19:52 Dose: Not Given Documented by: Ferrous Sulfate (Ferrous Sulfate 324 Mg Tablet.) 324 mg PO DAILY [facility] Last Admin: 09/12/21 10:48 Dose: 324 mg Documented by: Hydroxyzine HCl (Hydroxyzine Hcl 25 Mg Tablet) 25 mg PO BEDTIME PRN PRN Reason: Anxiety Last Admin: 08/25/21 05:36 Dose: 25 mg Documented by: Lactated Ringer's (Lr) 1,000 mls @ 50 mls/hr IVCONT .Q20H [facility] Magnesium Hydroxide (Milk Of Magnesia 30 Ml Oral.Susp) 30 ml PO DAILY PRN PRN Reason: Constipation Last Admin: 09/09/21 20:35 Dose: 30 ml Documented by: Nortriptyline HCl (Nortriptyline Hcl 25 Mg Capsule) 50 mg PO BEDTIME [facility] Last Admin: 09/12/21 19:41 Dose: 50 mg Documented by: Olanzapine (Olanzapine 2.5 Mg Tablet) 1.25 mg PO DAILY PRN PRN Reason: Anxiety Last Admin: 09/01/21 11:18 Dose: 1.25 mg Documented by: Olanzapine (Olanzapine 7.5 Mg Tablet) 7.5 mg PO BEDTIME ROMMEL Last Admin: 09/12/21 19:43 Dose: 7.5 mg Documented by: Omeprazole (Omeprazole 20 Mg Capsule.Dr) 20 mg PO DAILY@0630 [facility] Last Admin: 09/12/21 06:31 Dose: 20 mg Documented by: Oxybutynin Chloride (Oxybutynin Chloride Er 5 Mg Tab.Er.24) 5 mg PO DAILY [facility] Last Admin: 09/12/21 10:46 Dose: 5 mg Documented by: Senna (Sennosides 8.6 Mg Tablet) 8.6 mg PO BEDTIME [facility] Last Admin: 09/12/21 19:42 Dose: 8.6 mg Documented by: Trazodone HCl (Trazodone Hcl 50 Mg Tablet) 50 mg PO BEDTIME [facility] Last Admin: 09/12/21 19:42 Dose: 50 mg Documented by: Trazodone HCl (Trazodone Hcl 50 Mg Tablet) 50 mg PO BEDTIME PRN PRN Reason: insomnia Vitamin D (Cholecalciferol (Vitamin D3) 10 Mcg Tablet) 10 mcg PO DAILY [facility] Last Admin: 09/12/21 10:48 Dose: 10 mcg Documented by: Allergies Allergies Allergy/AdvReac Type Severity Reaction Status Date / Time No Known Allergies Allergy Verified 01/25/21 06:43 [No Known Allergies*] Assessment & Plan Assessment & Plan (1) Major depressive disorder, recurrent, severe with psychotic features: Status: Acute Code(s): F33.3 - Major depressive disorder, recurrent, severe with psychotic symptoms Assessment and Plan: José Luis is a 76 year old male who carries a dx of MDD, recurrent, severe with hx of psychosis, catatonia. He is known to [facility] for similar presentation and has received ECT with good effect in the past. Case reviewed with Dr. Sims he does not feel there is any different option at this time besides ECT. We did discuss restate belies in the patient and then trying TMS risk ketamine. Case reviewed with patient's healthcare proxy she clearly feels that patient has responded well to ECT generally understands limited options at this time feels that patient not able to make decision at this time The patient fell at 13:30 on Tuesday 08/28. There was no changes in his mental status but he had a laceration on his left eye. We ordered CT scan head and hospitalist consult that were normal. Since then, he was placed him on one-to-one but recently we change his level of observation Plan: 1. Continue same treatment. 2. Continue ECT. 3. Waiting for nortriptyline level I spent minutes with the patient and/or on the patient floor today, greater than?50% of which was spent counseling/coordinating care.
--- NOTE | 2021-09-13 08:52 | HO.ECTPROC ---
ECT Procedure Note Diagnosis/Treatment Date of Service: 09/13/21 Diagnosis: Major Depressive Disorder and Catatonia Previous ECT Date: 09/11/21 Current Treatment Number: 7 Treatment: Series Interval Clinical Notes: pt with crowley affect did n ot do well with ativan post ect last tx ECT Settings Device: THYMATRON DGx Electrode Placement: Right Unilateral Program/Pulse Width: 0.50 Energy Percent: 100 Seizure Duration By EEG (in seconds): 36 Medications Administration General Anesthetic: Etomidate Muscle Relaxant: Succinylcholine Ancillary Medications Anti-emetics: Zofran - Pre ECT Miscillaneous Medications: Propofol Airway Management Airway Management: Bag Mask Ventilation Treatment Recommendations Pt Tolerated Procedure w/o Issue: Yes
[2021-09-13] MEDS: Apixaban 5 MG TABLET PO ×2 (10:10→21:08)
[2021-09-13] MEDS: Cholecalciferol (Vitamin D3) 10 MCG TABLET PO (10:10)
[2021-09-13] MEDS: Ferrous Sulfate 324 MG TABLET.DR PO (10:11)
[2021-09-13] MEDS: Docusate Sodium 100 MG CAPSULE PO ×2 (10:11→21:05)
[2021-09-13] MEDS: Erythromycin Base 0.5% Oph Oin 1 GM TUBE 1 CM EYE-BOTH (10:24)
--- NOTE | 2021-09-13 13:43 | HO.PSYCHPN ---
Subjective Subjective Date of Service: 09/13/21 Reason For Visit: Recurrent major depressive D/O Severe Subjective Notes: Conditional Voluntary Interim History: The nursing staff reports the patient is doing much better, he is fully compliant with treatment and he slept well last night. He had ECT today in the morning and he was awake and alert. On interview, the patient denies new symptoms he looks less dysphoric. On rounds we discussed the possibility of doing maintenance ECT in his case Mental Status Exam Mental Status Exam Patient Appearance: Well Grooomed Patient Orientation: Person Level of Consciousness: Awake Patient Behavior: Cooperative Mood Description: Relaxed Affect Description: Constricted Patient Cognition Impaired: No Ability to Follow Directions: Good Speech Pattern: Clear Hallucinations: None Delusions: Not Present Thought Process: Distracted and Slowed Thinking Thought Content: positive for Circumstantial Judgement: Fair Diagnostics Vital Signs (24Hr): Vital Signs - 24 hr 09/12/21 19:53 09/13/21 06:00 09/13/21 06:38 Temperature 98.8 F 98.5 F 98.6 F Pulse Rate 91 109 H 95 Respiratory Rate 19 18 16 Blood Pressure 118/59 L 97/64 129/76 Pulse Oximetry 96 96 97 09/13/21 08:25 09/13/21 08:30 09/13/21 08:35 Temperature 99.2 F Pulse Rate 107 H 116 H 105 H Respiratory Rate 16 16 16 Blood Pressure 143/86 H 143/86 H 134/86 Pulse Oximetry 97 97 97 09/13/21 08:40 09/13/21 08:54 Temperature Pulse Rate 138 H 104 H Respiratory Rate 20 20 Blood Pressure 121/64 128/72 Pulse Oximetry 95 95 BMI result Body Mass Index 26.2 Labs Results: 08/25/21 22:04 09/10/21 07:22 Imaging Radiology Impressions: ITS Impressions Chest X-Ray 08/20/21 10:00 IMPRESSION: 1. Lungs grossly clear. No infiltrate or effusion. 2. Hiatal hernia, approximately [address] 08/28/21 15:52 IMPRESSION: No acute intracranial findings. Atrophy and nonspecific periventricular white matter disease similar to previous exams. Medications Medications Current Medications Acetaminophen (Acetaminophen 325 Mg Tablet) 650 mg PO Q6H PRN PRN Reason: Headache/Pain Mild Scale (1-3) Last Admin: 09/07/21 07:54 Dose: 650 mg Documented by: Al Hydroxide/Mg Hydroxide (Magnesium Hydrox/Alum Hydrox 30 Ml Oral.Susp) 30 ml PO Q6H PRN PRN Reason: Heartburn/Nausea Apixaban (Apixaban 5 Mg Tablet) 5 mg PO BID [facility] Last Admin: 09/13/21 10:10 Dose: 5 mg Documented by: Atorvastatin Calcium (Atorvastatin Calcium 40 Mg Tablet) 40 mg PO BEDTIME [facility] Last Admin: 09/12/21 19:42 Dose: 40 mg Documented by: Benzonatate (Benzonatate 100 Mg Capsule) 100 mg PO TID PRN PRN Reason: cough Docusate Sodium (Docusate Sodium 100 Mg Capsule) 100 mg PO BID [facility] Last Admin: 09/13/21 10:11 Dose: 100 mg Documented by: Erythromycin (Erythromycin Base 0.5% Oph Oin 1 Gm Tube) 1 cm EYE-BOTH BID [facility] Last Admin: 09/13/21 10:24 Dose: 1 cm Documented by: Ferrous Sulfate (Ferrous Sulfate 324 Mg Tablet.) 324 mg PO DAILY [facility] Last Admin: 09/13/21 10:11 Dose: 324 mg Documented by: Hydroxyzine HCl (Hydroxyzine Hcl 25 Mg Tablet) 25 mg PO BEDTIME PRN PRN Reason: Anxiety Last Admin: 08/25/21 05:36 Dose: 25 mg Documented by: Lactated Ringer's (Lr) 1,000 mls @ 50 mls/hr IVCONT .Q20H [facility] Last Admin: 09/13/21 10:12 Dose: Not Given Documented by: Magnesium Hydroxide (Milk Of Magnesia 30 Ml Oral.Susp) 30 ml PO DAILY PRN PRN Reason: Constipation Last Admin: 09/09/21 20:35 Dose: 30 ml Documented by: Nortriptyline HCl (Nortriptyline Hcl 25 Mg Capsule) 50 mg PO BEDTIME [facility] Last Admin: 09/12/21 19:41 Dose: 50 mg Documented by: Olanzapine (Olanzapine 2.5 Mg Tablet) 1.25 mg PO DAILY PRN PRN Reason: Anxiety Last Admin: 09/01/21 11:18 Dose: 1.25 mg Documented by: Olanzapine (Olanzapine 7.5 Mg Tablet) 7.5 mg PO BEDTIME [facility] Last Admin: 09/12/21 19:43 Dose: 7.5 mg Documented by: Omeprazole (Omeprazole 20 Mg Capsule.) 20 mg PO DAILY@0630 [facility] Last Admin: 09/13/21 10:12 Dose: Not Given Documented by: Oxybutynin Chloride (Oxybutynin Chloride Er 5 Mg Tab.Er.24) 5 mg PO DAILY [facility] Last Admin: 09/13/21 10:10 Dose: 5 mg Documented by: Senna (Sennosides 8.6 Mg Tablet) 8.6 mg PO BEDTIME [facility] Last Admin: 09/12/21 19:42 Dose: 8.6 mg Documented by: Trazodone HCl (Trazodone Hcl 50 Mg Tablet) 50 mg PO BEDTIME [facility] Last Admin: 09/12/21 19:42 Dose: 50 mg Documented by: Trazodone HCl (Trazodone Hcl 50 Mg Tablet) 50 mg PO BEDTIME PRN PRN Reason: insomnia Vitamin D (Cholecalciferol (Vitamin D3) 10 Mcg Tablet) 10 mcg PO DAILY [facility] Last Admin: 09/13/21 10:10 Dose: 10 mcg Documented by: Allergies Allergies Allergy/AdvReac Type Severity Reaction Status Date / Time No Known Allergies Allergy Verified 01/25/21 06:43 [No Known Allergies*] Assessment & Plan Assessment & Plan (1) Major depressive disorder, recurrent, severe with psychotic features: Status: Acute Code(s): F33.3 - Major depressive disorder, recurrent, severe with psychotic symptoms Assessment and Plan: José Luis is a 76 year old male who carries a dx of MDD, recurrent, severe with hx of psychosis, catatonia. He is known to [facility] for similar presentation and has received ECT with good effect in the past. Case reviewed with Dr. Sims he does not feel there is any different option at this time besides ECT. We did discuss restate belies in the patient and then trying TMS risk ketamine. Case reviewed with patient's healthcare proxy she clearly feels that patient has responded well to ECT generally understands limited options at this time feels that patient not able to make decision at this time The patient fell at 13:30 on Tuesday 08/28. There was no changes in his mental status but he had a laceration on his left eye. We ordered CT scan head and hospitalist consult that were normal. Since then, he was placed him on one-to-one but recently we change his level of observation Plan: 1. Continue same treatment. 2. Continue ECT. 3. Waiting for nortriptyline level. I spent minutes with the patient and/or on the patient floor today, greater than?50% of which was spent counseling/coordinating care. Reason for contiued inpatient stay Substantial Risk for: harm to self, inability to function, rapid decompensation and med/psych decompensation
--- NOTE | 2021-09-13 14:19 | MHC.CLN ---
NUTRITION SEEN BY [employer] SERVICES COORDINATOR WITH DIET CONSISTENCY CHANGE TO REGULAR. CONTINUE ENSURE TID TO PROVIDE 1050 KCAL, 39 G PROTEIN.
[2021-09-13] MEDS: Nortriptyline HCl 25 MG CAPSULE 50 MG PO (21:00)
[2021-09-13] MEDS: OLANZapine 7.5 MG TABLET PO (21:05)
[2021-09-13] MEDS: Atorvastatin Calcium 40 MG TABLET PO (21:07)
[2021-09-13] MEDS: Sennosides 8.6 MG TABLET PO (21:07)
[2021-09-13] MEDS: traZODone HCL 50 MG TABLET PO (21:07)
[2021-09-14] MEDS: Acetaminophen 325 MG TABLET 650 MG PO (06:00)
[2021-09-14] MEDS: Omeprazole 20 MG CAPSULE.DR PO (06:00)
--- NOTE | 2021-09-14 08:44 | P.PNPSI_ITS ---
Subjective Subjective Date of Service: 09/14/21 Reason For Visit: Recurrent major depressive D/O Severe Subjective Notes: Conditional Voluntary Interim History: Pt seen in bed. Pt reports feeling better in terms of mood in that he is less depressed but reports feeling tired. He reports he woke up few times last night. he also reports that given that is cloudy he feels like staying in bed. he denies any pain (physical). He denies SI/HI. No VH/AH. He agrees to start melatonin and increase trazodone for sleep. Medication Compliance: Yes Review of Systems Reports behavioral changes Psychiatric: Reports abnormal sleep pattern, Reports anxiety, Reports behavioral changes, Reports change in appetite, Reports depression, Reports difficulty concentrating, Reports hopelessness, Reports irritability, Reports anhedonia and Reports suicidal ideation Mental Status Exam Mental Status Exam Narrative: Pt is alert, oriented x 3. Casually groomed, in bed, in no acute distress. He is cooperative, minimal eye contact. No psychomotor agitation or retardation noted. Speech: clear, normal rate/rhythm, spontaneous. TP: linear TC: no signs of psychosis, looking forward to have ECT soon. SI: none. HI: none. VH/AH: none. No delusional content. Insight/judgment: fair x 2. Diagnostics Vital Signs (24Hr): Vital Signs - 24 hr 09/15/21 08:00 Temperature 98.2 F Pulse Rate 90 Blood Pressure 91/76 Pulse Oximetry 96 BMI result Body Mass Index 26.2 Labs Results: 08/25/21 22:04 09/10/21 07:22 Labs: Laboratory Results - last 48 hr 09/10/21 07:22 Nortriptyline 34 L Imaging Radiology Impressions: ITS Impressions Chest X-Ray 08/20/21 10:00 IMPRESSION: 1. Lungs grossly clear. No infiltrate or effusion. 2. Hiatal hernia, approximately [address] 08/28/21 15:52 IMPRESSION: No acute intracranial findings. Atrophy and nonspecific periventricular white matter disease similar to previous exams. Medications Medications Current Medications Acetaminophen (Acetaminophen 325 Mg Tablet) 650 mg PO Q6H PRN PRN Reason: Headache/Pain Mild Scale (1-3) Last Admin: 09/14/21 06:00 Dose: 650 mg Documented by: Al Hydroxide/Mg Hydroxide (Magnesium Hydrox/Alum Hydrox 30 Ml Oral.Susp) 30 ml PO Q6H PRN PRN Reason: Heartburn/Nausea Apixaban (Apixaban 5 Mg Tablet) 5 mg PO BID [facility] Last Admin: 09/15/21 08:36 Dose: 5 mg Documented by: Atorvastatin Calcium (Atorvastatin Calcium 40 Mg Tablet) 40 mg PO BEDTIME [facility] Last Admin: 09/14/21 23:25 Dose: 40 mg Documented by: Benzonatate (Benzonatate 100 Mg Capsule) 100 mg PO TID PRN PRN Reason: cough Docusate Sodium (Docusate Sodium 100 Mg Capsule) 100 mg PO BID [facility] Last Admin: 09/15/21 08:35 Dose: 100 mg Documented by: Erythromycin (Erythromycin Base 0.5% Oph Oin 1 Gm Tube) 1 cm EYE-BOTH BID [facility] Last Admin: 09/15/21 10:56 Dose: Not Given Documented by: Ferrous Sulfate (Ferrous Sulfate 324 Mg Tablet.) 324 mg PO DAILY [facility] Last Admin: 09/15/21 08:36 Dose: 324 mg Documented by: Hydroxyzine HCl (Hydroxyzine Hcl 25 Mg Tablet) 25 mg PO BEDTIME PRN PRN Reason: Anxiety Last Admin: 08/25/21 05:36 Dose: 25 mg Documented by: Magnesium Hydroxide (Milk Of Magnesia 30 Ml Oral.Susp) 30 ml PO DAILY PRN PRN Reason: Constipation Last Admin: 09/09/21 20:35 Dose: 30 ml Documented by: Melatonin (Melatonin 3 Mg Tablet) 6 mg PO BEDTIME [facility] Last Admin: 09/14/21 20:47 Dose: 6 mg Documented by: Nortriptyline HCl (Nortriptyline Hcl 25 Mg Capsule) 50 mg PO BEDTIME [facility] Last Admin: 09/14/21 20:47 Dose: 50 mg Documented by: Olanzapine (Olanzapine 2.5 Mg Tablet) 1.25 mg PO DAILY PRN PRN Reason: Anxiety Last Admin: 09/15/21 08:36 Dose: 1.25 mg Documented by: Olanzapine (Olanzapine 7.5 Mg Tablet) 7.5 mg PO BEDTIME [facility] Last Admin: 09/14/21 20:55 Dose: 7.5 mg Documented by: Omeprazole (Omeprazole 20 Mg Capsule.) 20 mg PO DAILY@0630 [facility] Last Admin: 09/15/21 06:26 Dose: 20 mg Documented by: Oxybutynin Chloride (Oxybutynin Chloride Er 5 Mg Tab.Er.24) 5 mg PO DAILY [facility] Last Admin: 09/15/21 08:36 Dose: 5 mg Documented by: Senna (Sennosides 8.6 Mg Tablet) 8.6 mg PO BEDTIME [facility] Last Admin: 09/14/21 20:49 Dose: 8.6 mg Documented by: Trazodone HCl (Trazodone Hcl 50 Mg Tablet) 50 mg PO BEDTIME PRN PRN Reason: insomnia Trazodone HCl (Trazodone Hcl 25 Mg Halftab) 75 mg PO BEDTIME [facility] Last Admin: 09/14/21 20:48 Dose: 75 mg Documented by: Vitamin D (Cholecalciferol (Vitamin D3) 10 Mcg Tablet) 10 mcg PO DAILY [facility] Last Admin: 09/15/21 08:36 Dose: 10 mcg Documented by: Allergies Allergies Allergy/AdvReac Type Severity Reaction Status Date / Time No Known Allergies Allergy Verified 01/25/21 06:43 [No Known Allergies*] Assessment & Plan Assessment & Plan (1) Major depressive disorder, recurrent, severe with psychotic features: Status: Acute Code(s): F33.3 - Major depressive disorder, recurrent, severe with psychotic symptoms Assessment and Plan: José Luis is a 76 year old male who carries a dx of MDD, recurrent, severe with hx of psychosis, catatonia. He is known to [facility] for similar presentation and has received ECT with good effect in the past. Case reviewed with Dr. Sims he does not feel there is any different option at this time besides ECT. We did discuss restate belies in the patient and then trying TMS risk ketamine. Case reviewed with patient's healthcare proxy she clearly feels that patient has responded well to ECT generally understands limited options at this time feels that patient not able to make decision at this time The patient fell at 13:30 on Tuesday 08/28. There was no changes in his mental status but he had a laceration on his left eye. We ordered CT scan head and hospitalist consult that were normal. Since then, he was placed him on one-to-one but recently we change his level of observation Plan: 1. Continue same treatment. 2. Continue ECT. 3. Waiting for nortriptyline level. 09/14: pt with improved mood, no SI, but reports poor sleep. Trazodone increased to 75mg po qhs. Added melatonin 6mg po qhs. I spent minutes with the patient and/or on the patient floor today, greater than?50% of which was spent counseling/coordinating care. Reason for contiued inpatient stay Substantial Risk for: inability to function
[2021-09-14 09:02] VITALS: BP 127/68; PULSE 109; RESP 16; TEMP 36.3; O2SAT 96
[2021-09-14] MEDS: Ferrous Sulfate 324 MG TABLET.DR PO (09:08)
[2021-09-14] MEDS: Apixaban 5 MG TABLET PO ×2 (09:08→20:48)
[2021-09-14] MEDS: Docusate Sodium 100 MG CAPSULE PO ×2 (09:08→20:49)
[2021-09-14] MEDS: Cholecalciferol (Vitamin D3) 10 MCG TABLET PO (09:08)
[2021-09-14] MEDS: Erythromycin Base 0.5% Oph Oin 1 GM TUBE 1 CM EYE-BOTH (10:34)
[2021-09-14 18:00] VITALS: BP 130/72; PULSE 94; RESP 16; TEMP 36.2; O2SAT 96
[2021-09-14] MEDS: Nortriptyline HCl 25 MG CAPSULE 50 MG PO (20:47)
[2021-09-14] MEDS: Melatonin 3 MG TABLET 6 MG PO (20:47)
[2021-09-14] MEDS: traZODone HCL 25 MG HALFTAB 75 MG PO (20:48)
[2021-09-14] MEDS: Sennosides 8.6 MG TABLET PO (20:49)
[2021-09-14] MEDS: OLANZapine 7.5 MG TABLET PO (20:55)
[2021-09-14] MEDS: Atorvastatin Calcium 40 MG TABLET PO (23:25)
[2021-09-15] MEDS: Omeprazole 20 MG CAPSULE.DR PO (06:26)
[2021-09-15 08:00] VITALS: BP 91/76; PULSE 90; TEMP 36.8; O2SAT 96
[2021-09-15] MEDS: Docusate Sodium 100 MG CAPSULE PO ×2 (08:35→21:03)
[2021-09-15] MEDS: OLANZapine 2.5 MG TABLET 1.25 MG PO (08:36)
[2021-09-15] MEDS: Ferrous Sulfate 324 MG TABLET.DR PO (08:36)
[2021-09-15] MEDS: Apixaban 5 MG TABLET PO ×2 (08:36→21:02)
[2021-09-15] MEDS: Cholecalciferol (Vitamin D3) 10 MCG TABLET PO (08:36)
--- NOTE | 2021-09-15 09:50 | P.PNPSI_ITS ---
Subjective Subjective Date of Service: 09/15/21 Reason For Visit: Recurrent major depressive D/O Severe Subjective Notes: Conditional Voluntary Interim History: Pt again in bed this morning. Pt reports improved mood in terms of depression, in that he is more optimistic. He reports he slept better last night with increased trazodone and addition of melatonin. He denies any pain (physical). He denies SI/HI. No VH/AH. Medication Compliance: Yes Review of Systems Reports behavioral changes Psychiatric: Reports abnormal sleep pattern, Reports anxiety, Reports behavioral changes, Reports change in appetite, Reports depression, Reports difficulty concentrating, Reports hopelessness, Reports irritability, Reports anhedonia and Reports suicidal ideation Mental Status Exam Mental Status Exam Narrative: Pt is alert, oriented x 3. Casually groomed, in bed, in no acute distress. He is cooperative, minimal eye contact. No psychomotor agitation or retardation noted. Speech: clear, normal rate/rhythm, spontaneous. TP: linear TC: no signs of psychosis, looking forward to have ECT soon. SI: none. HI: none. VH/AH: none. No delusional content. Insight/judgment: fair x 2. Diagnostics Vital Signs (24Hr): Vital Signs - 24 hr 09/15/21 08:00 Temperature 98.2 F Pulse Rate 90 Blood Pressure 91/76 Pulse Oximetry 96 BMI result Body Mass Index 26.2 Labs Results: 08/25/21 22:04 09/10/21 07:22 Labs: Laboratory Results - last 48 hr 09/10/21 07:22 Nortriptyline 34 L Imaging Radiology Impressions: ITS Impressions Chest X-Ray 08/20/21 10:00 IMPRESSION: 1. Lungs grossly clear. No infiltrate or effusion. 2. Hiatal hernia, approximately [address] 08/28/21 15:52 IMPRESSION: No acute intracranial findings. Atrophy and nonspecific periventricular white matter disease similar to previous exams. Medications Medications Current Medications Acetaminophen (Acetaminophen 325 Mg Tablet) 650 mg PO Q6H PRN PRN Reason: Headache/Pain Mild Scale (1-3) Last Admin: 09/14/21 06:00 Dose: 650 mg Documented by: Al Hydroxide/Mg Hydroxide (Magnesium Hydrox/Alum Hydrox 30 Ml Oral.Susp) 30 ml PO Q6H PRN PRN Reason: Heartburn/Nausea Apixaban (Apixaban 5 Mg Tablet) 5 mg PO BID [facility] Last Admin: 09/15/21 08:36 Dose: 5 mg Documented by: Atorvastatin Calcium (Atorvastatin Calcium 40 Mg Tablet) 40 mg PO BEDTIME [facility] Last Admin: 09/14/21 23:25 Dose: 40 mg Documented by: Benzonatate (Benzonatate 100 Mg Capsule) 100 mg PO TID PRN PRN Reason: cough Docusate Sodium (Docusate Sodium 100 Mg Capsule) 100 mg PO BID [facility] Last Admin: 09/15/21 08:35 Dose: 100 mg Documented by: Erythromycin (Erythromycin Base 0.5% Oph Oin 1 Gm Tube) 1 cm EYE-BOTH BID [facility] Last Admin: 09/15/21 10:56 Dose: Not Given Documented by: Ferrous Sulfate (Ferrous Sulfate 324 Mg Tablet.) 324 mg PO DAILY [facility] Last Admin: 09/15/21 08:36 Dose: 324 mg Documented by: Hydroxyzine HCl (Hydroxyzine Hcl 25 Mg Tablet) 25 mg PO BEDTIME PRN PRN Reason: Anxiety Last Admin: 08/25/21 05:36 Dose: 25 mg Documented by: Magnesium Hydroxide (Milk Of Magnesia 30 Ml Oral.Susp) 30 ml PO DAILY PRN PRN Reason: Constipation Last Admin: 09/09/21 20:35 Dose: 30 ml Documented by: Melatonin (Melatonin 3 Mg Tablet) 6 mg PO BEDTIME [facility] Last Admin: 09/14/21 20:47 Dose: 6 mg Documented by: Nortriptyline HCl (Nortriptyline Hcl 25 Mg Capsule) 50 mg PO BEDTIME [facility] Last Admin: 09/14/21 20:47 Dose: 50 mg Documented by: Olanzapine (Olanzapine 2.5 Mg Tablet) 1.25 mg PO DAILY PRN PRN Reason: Anxiety Last Admin: 09/15/21 08:36 Dose: 1.25 mg Documented by: Olanzapine (Olanzapine 7.5 Mg Tablet) 7.5 mg PO BEDTIME [facility] Last Admin: 09/14/21 20:55 Dose: 7.5 mg Documented by: Omeprazole (Omeprazole 20 Mg Capsule.) 20 mg PO DAILY@0630 [facility] Last Admin: 09/15/21 06:26 Dose: 20 mg Documented by: Oxybutynin Chloride (Oxybutynin Chloride Er 5 Mg Tab.Er.24) 5 mg PO DAILY [facility] Last Admin: 09/15/21 08:36 Dose: 5 mg Documented by: Senna (Sennosides 8.6 Mg Tablet) 8.6 mg PO BEDTIME [facility] Last Admin: 09/14/21 20:49 Dose: 8.6 mg Documented by: Trazodone HCl (Trazodone Hcl 50 Mg Tablet) 50 mg PO BEDTIME PRN PRN Reason: insomnia Trazodone HCl (Trazodone Hcl 25 Mg Halftab) 75 mg PO BEDTIME [facility] Last Admin: 09/14/21 20:48 Dose: 75 mg Documented by: Vitamin D (Cholecalciferol (Vitamin D3) 10 Mcg Tablet) 10 mcg PO DAILY [facility] Last Admin: 09/15/21 08:36 Dose: 10 mcg Documented by: Allergies Allergies Allergy/AdvReac Type Severity Reaction Status Date / Time No Known Allergies Allergy Verified 01/25/21 06:43 [No Known Allergies*] Assessment & Plan Assessment & Plan (1) Major depressive disorder, recurrent, severe with psychotic features: Status: Acute Code(s): F33.3 - Major depressive disorder, recurrent, severe with psychotic symptoms Assessment and Plan: José Luis is a 76 year old male who carries a dx of MDD, recurrent, severe with hx of psychosis, catatonia. He is known to [facility] for similar presentation and has received ECT with good effect in the past. Case reviewed with Dr. Sims he does not feel there is any different option at this time besides ECT. We did discuss restate belies in the patient and then trying TMS risk ketamine. Case reviewed with patient's healthcare proxy she clearly feels that patient has responded well to ECT generally understands limited options at this time feels that patient not able to make decision at this time The patient fell at 13:30 on Tuesday 08/28. There was no changes in his mental status but he had a laceration on his left eye. We ordered CT scan head and hospitalist consult that were normal. Since then, he was placed him on one-to-one but recently we change his level of observation Plan: 1. Continue same treatment. 2. Continue ECT. 3. Waiting for nortriptyline level. 09/14: pt with improved mood, no SI, but reports poor sleep. Trazodone increased to 75mg po qhs. Added melatonin 6mg po qhs. 09/15: pt with improved symptoms of depression. NO SI/HI. No medication changes. I spent minutes with the patient and/or on the patient floor today, greater than?50% of which was spent counseling/coordinating care. Reason for contiued inpatient stay Substantial Risk for: inability to function
[2021-09-15 11:51] LABS: Nortriptyline 34 mcg/L (50-150)
[2021-09-15 18:00] VITALS: BP 118/65; PULSE 98; RESP 18; TEMP 36.9; O2SAT 97
[2021-09-15] MEDS: traZODone HCL 25 MG HALFTAB 75 MG PO (21:00)
[2021-09-15] MEDS: Sennosides 8.6 MG TABLET PO (21:01)
[2021-09-15] MEDS: OLANZapine 7.5 MG TABLET PO (21:01)
[2021-09-15] MEDS: Nortriptyline HCl 25 MG CAPSULE 50 MG PO (21:02)
[2021-09-15] MEDS: Melatonin 3 MG TABLET 6 MG PO (21:03)
[2021-09-15] MEDS: Atorvastatin Calcium 40 MG TABLET PO (21:03)
[2021-09-16] VITALS (16 sets, daily range): BP systolic 94–134; BP diastolic 59–85; PULSE 86–123; RESP 14–22; TEMP 36.2–37.1; O2SAT 94–100
--- NOTE | 2021-09-16 06:51 | HO.ANESPROP2 ---
[facility] Active Problems Active Problems: All Active Problems (Updated 08/21/21 @ 09:05 by Leila Bryson APRN) Major depressive disorder, recurrent, severe with psychotic features (Acute) Depression (Acute) Physical deconditioning (Acute) Preoperative cardiovascular examination (Acute) Anemia (Acute) GERD (gastroesophageal reflux disease) (Acute) Past Medical History Medical History COVID-19 vaccine administered Dementia Depression Diverticulitis of colon with perforation GERD (gastroesophageal reflux disease) History of electroconvulsive therapy HTN (hypertension) Hyperlipidemia Major depressive disorder, recurrent, severe with psychotic features Pulmonary embolism SVT (supraventricular tachycardia) Functional capacity: uses cane/walker Family History Family History Brother Blood clot in vein Other No history of cardiac disorder Family history of problems with anesthesia: No Surgical History Surgical History H/O colonoscopy H/O hernia repair History of colostomy reversal History of esophagogastroduodenoscopy (EGD) Status post Paula's procedure History of Problems with Anesthesia: No Social History Social History Household Members: Other Housing: Assisted Living Facility Are you a primary acute care nurse practitioner to a significant other at home: No Do you presently have visiting nurse or other home services: No Alcohol intake: former Patient Tobacco Use Status: Never used Tobacco Second Hand Smoke Exposure: No Use of substances other than those prescribed or required for medical reasons: No Currently Displaying Signs/Symptoms of Drug Intoxication Withdrawal: No Have you been hit, kicked, punched, or otherwise hurt by someone within the past year? If so, by whom?: No Do you feel safe in your current relationship?: No Current Relationship Is there a partner from a previous relationship who is making you feel unsafe now?: No Are you made to feel afraid or neglected: No Spiritual Healthcare Practices: refusing to respond Roman [employer] Healthcare Practices: refusing to respond Cultural Healthcare Practices: refusing to respond Are you DNR?: No Advance Directives: Yes Advance Directives Information Provided: No Advance Directives on File: Yes Advance Directives Date on File: 07/27/20 Do you have thoughts of harming others: None Do you have a plan to hurt others: No Plan Recently lost weight without trying: Unsure Poor oral hygiene: Yes service: Yes Current occupational status: retired Sexual orientation: Straight/Heterosexual Meds Allergies Allergy/AdvReac Type Severity Reaction Status Date / Time No Known Allergies Allergy Verified 01/25/21 06:43 [No Known Allergies*] Active Medications: Current Medications Acetaminophen (Acetaminophen 325 Mg Tablet) 650 mg PO Q6H PRN PRN Reason: Headache/Pain Mild Scale (1-3) Last Admin: 09/14/21 06:00 Dose: 650 mg Documented by: Al Hydroxide/Mg Hydroxide (Magnesium Hydrox/Alum Hydrox 30 Ml Oral.Susp) 30 ml PO Q6H PRN PRN Reason: Heartburn/Nausea Apixaban (Apixaban 5 Mg Tablet) 5 mg PO BID [facility] Last Admin: 09/15/21 21:02 Dose: 5 mg Documented by: Atorvastatin Calcium (Atorvastatin Calcium 40 Mg Tablet) 40 mg PO BEDTIME [facility] Last Admin: 09/15/21 21:03 Dose: 40 mg Documented by: Benzonatate (Benzonatate 100 Mg Capsule) 100 mg PO TID PRN PRN Reason: cough Docusate Sodium (Docusate Sodium 100 Mg Capsule) 100 mg PO BID [facility] Last Admin: 09/15/21 21:03 Dose: 100 mg Documented by: Erythromycin (Erythromycin Base 0.5% Oph Oin 1 Gm Tube) 1 cm EYE-BOTH BID [facility] Last Admin: 09/15/21 21:05 Dose: Not Given Documented by: Ferrous Sulfate (Ferrous Sulfate 324 Mg Tablet.) 324 mg PO DAILY [facility] Last Admin: 09/15/21 08:36 Dose: 324 mg Documented by: Hydroxyzine HCl (Hydroxyzine Hcl 25 Mg Tablet) 25 mg PO BEDTIME PRN PRN Reason: Anxiety Last Admin: 08/25/21 05:36 Dose: 25 mg Documented by: Magnesium Hydroxide (Milk Of Magnesia 30 Ml Oral.Susp) 30 ml PO DAILY PRN PRN Reason: Constipation Last Admin: 09/09/21 20:35 Dose: 30 ml Documented by: Melatonin (Melatonin 3 Mg Tablet) 6 mg PO BEDTIME [facility] Last Admin: 09/15/21 21:03 Dose: 6 mg Documented by: Nortriptyline HCl (Nortriptyline Hcl 25 Mg Capsule) 50 mg PO BEDTIME [facility] Last Admin: 09/15/21 21:02 Dose: 50 mg Documented by: Olanzapine (Olanzapine 2.5 Mg Tablet) 1.25 mg PO DAILY PRN PRN Reason: Anxiety Last Admin: 09/15/21 08:36 Dose: 1.25 mg Documented by: Olanzapine (Olanzapine 7.5 Mg Tablet) 7.5 mg PO BEDTIME [facility] Last Admin: 09/15/21 21:01 Dose: 7.5 mg Documented by: Omeprazole (Omeprazole 20 Mg Capsule.Dr) 20 mg PO DAILY@0630 [facility] Last Admin: 09/16/21 06:35 Dose: Not Given Documented by: Oxybutynin Chloride (Oxybutynin Chloride Er 5 Mg Tab.Er.24) 5 mg PO DAILY [facility] Last Admin: 09/15/21 08:36 Dose: 5 mg Documented by: Senna (Sennosides 8.6 Mg Tablet) 8.6 mg PO BEDTIME [facility] Last Admin: 09/15/21 21:01 Dose: 8.6 mg Documented by: Trazodone HCl (Trazodone Hcl 50 Mg Tablet) 50 mg PO BEDTIME PRN PRN Reason: insomnia Trazodone HCl (Trazodone Hcl 25 Mg Halftab) 75 mg PO BEDTIME [facility] Last Admin: 09/15/21 21:00 Dose: 75 mg Documented by: Vitamin D (Cholecalciferol (Vitamin D3) 10 Mcg Tablet) 10 mcg PO DAILY [facility] Last Admin: 09/15/21 08:36 Dose: 10 mcg Documented by: Home Medications Medication Instructions Recorded Confirmed Last Taken Type atorvastatin 40 mg tablet 1 tab PO BEDTIME 08/18/21 08/18/21 Unknown History benztropine 1 mg tablet 1 tab PO BID 08/18/21 08/18/21 Unknown History finasteride 5 mg tablet 1 tab PO DAILY 08/18/21 08/18/21 Unknown History fluoxetine 10 mg capsule 1 cap PO DAILY 08/18/21 08/18/21 Unknown History olanzapine 10 mg tablet 5 mg PO BEDTIME 08/18/21 08/18/21 Unknown History olanzapine 2.5 mg tablet 0.5 tab PO DAILY PRN 08/18/21 08/18/21 Unknown History omeprazole 20 mg capsule,delayed 1 cap PO DAILY 08/18/21 08/18/21 Unknown History release propranolol 10 mg tablet 1 tab PO TID PRN 08/18/21 08/18/21 Unknown History trazodone 50 mg tablet 50 mg PO BEDTIME 08/18/21 08/18/21 Unknown History Exam Exam Date and Time: September 16, 2021 0651 Height,Weight and Vital Signs: Height 5 ft 10 in Weight 82.7 kg Last Vital Signs Temp 98.8 F 09/16/21 06:20 Pulse 110 H 09/16/21 06:20 Resp 20 09/16/21 06:20 BP 129/81 09/16/21 06:20 Pulse Ox 95 09/16/21 06:20 Pertinent Lab Results Pertinent Lab Results: Laboratory Tests 08/17/21 08/17/21 08/17/21 20:30 20:31 20:31 WBC RBC Hgb Hct MCV MCH MCHC RDW Plt Count MPV Immature Gran % (Auto) Neut % (Auto) Lymph % (Auto) [place] % (Auto) Eos % (Auto) Baso % (Auto) Lymph # (Auto) [place] # (Auto) Eos # (Auto) Baso # (Auto) Abs Immat Gran (auto) Absolute Neuts (auto) Absolute Nucleated RBC Nucleated RBC % (auto) Sodium Potassium Chloride Carbon Dioxide Anion Gap BUN Creatinine Estim Creat Clear Calc Estimated GFR Random Glucose Estimat Average Glucose Hemoglobin A1c % Calcium Total Bilirubin Direct Bilirubin AST ALT Alkaline Phosphatase Total Protein Albumin Triglycerides Cholesterol LDL Cholesterol, Calc HDL Cholesterol Vitamin B12 25-OH Vitamin D Total Folate TSH Urine Color YELLOW Urine Appearance HAZY Urine pH 6.0 Ur Specific [place] 1.025 Urine Protein NEG Urine Glucose (UA) NEG Urine Ketones NEG Urine Blood NEG Urine Nitrite NEG Ur Leukocyte Esterase NEG Urine Opiates Screen Not Detected Urine Fentanyl Screen POSITIVE H Ur Barbiturates Screen Not Detected Nortriptyline Ur Phencyclidine Scrn Not Detected Ur Amphetamines Screen Not Detected U Benzodiazepines Scrn Not Detected Urine Cocaine Screen Not Detected U Marijuana (THC) Screen Not Detected Ethyl Alcohol COVID-19 ([facility]) Negative COVID-19 Clin Com See Note 08/17/21 08/17/21 08/17/21 21:16 21:16 21:17 WBC 5.4 RBC 4.22 L Hgb 14.0 Hct 40.9 L MCV 96.9 MCH 33.2 H MCHC 34.2 RDW 13.0 Plt Count 160 MPV 8.7 L Immature Gran % (Auto) 0.2 Neut % (Auto) 64.6 Lymph % (Auto) 21.5 [place] % (Auto) 10.4 Eos % (Auto) 3.1 Baso % (Auto) 0.2 Lymph # (Auto) 1.2 [place] # (Auto) 0.6 Eos # (Auto) 0.2 Baso # (Auto) 0.0 Abs Immat Gran (auto) 0.01 Absolute Neuts (auto) 3.5 Absolute Nucleated RBC 0.000 Nucleated RBC % (auto) 0.0 Sodium 143 Potassium 4.0 Chloride 108 Carbon Dioxide 27 Anion Gap 12 BUN 21 H Creatinine 1.03 Estim Creat Clear Calc 60.6 Estimated GFR > 60 Random Glucose 169 H Estimat Average Glucose Hemoglobin A1c % Calcium 9.7 D Total Bilirubin Direct Bilirubin AST ALT Alkaline Phosphatase Total Protein Albumin Triglycerides Cholesterol LDL Cholesterol, Calc HDL Cholesterol Vitamin B12 25-OH Vitamin D Total Folate TSH Urine Color Urine Appearance Urine pH Ur Specific [place] Urine Protein Urine Glucose (UA) Urine Ketones Urine Blood Urine Nitrite Ur Leukocyte Esterase Urine Opiates Screen Urine Fentanyl Screen Ur Barbiturates Screen Nortriptyline Ur Phencyclidine Scrn Ur Amphetamines Screen U Benzodiazepines Scrn Urine Cocaine Screen U Marijuana (THC) Screen Ethyl Alcohol < 10 COVID-19 ([facility]) COVID-19 Clin Com 08/19/21 08/20/21 08/20/21 09:11 08:25 08:25 WBC RBC Hgb Hct MCV MCH MCHC RDW Plt Count MPV Immature Gran % (Auto) Neut % (Auto) Lymph % (Auto) [place] % (Auto) Eos % (Auto) Baso % (Auto) Lymph # (Auto) [place] # (Auto) Eos # (Auto) Baso # (Auto) Abs Immat Gran (auto) Absolute Neuts (auto) Absolute Nucleated RBC Nucleated RBC % (auto) Sodium 140 Potassium 4.1 Chloride 106 Carbon Dioxide 19 L Anion Gap 19 BUN 30 H Creatinine 0.91 Estim Creat Clear Calc 68.6 Estimated GFR > 60 Random Glucose 84 D Estimat Average Glucose 120 Hemoglobin A1c % 5.8 Calcium 9.4 Total Bilirubin 1.4 H Direct Bilirubin AST 23 ALT 22 Alkaline Phosphatase 124 H Total Protein 6.9 Albumin 4.3 Triglycerides 118 Cholesterol 153 LDL Cholesterol, Calc 90 HDL Cholesterol 40 Vitamin B12 25-OH Vitamin D Total 24.8 Folate TSH 0.60 Urine Color Urine Appearance Urine pH Ur Specific [place] Urine Protein Urine Glucose (UA) Urine Ketones Urine Blood Urine Nitrite Ur Leukocyte Esterase Urine Opiates Screen Urine Fentanyl Screen Ur Barbiturates Screen Nortriptyline Ur Phencyclidine Scrn Ur Amphetamines Screen U Benzodiazepines Scrn Urine Cocaine Screen U Marijuana (THC) Screen Ethyl Alcohol COVID-19 ([facility]) Negative COVID-19 Clin Com See Note 08/20/21 08/25/21 08/25/21 08:25 22:04 22:04 WBC 5.6 RBC 4.05 L Hgb 13.8 L Hct 38.5 L MCV 95.1 MCH 34.1 H MCHC 35.8 RDW 13.2 Plt Count 165 MPV 8.7 L Immature Gran % (Auto) Neut % (Auto) Lymph % (Auto) [place] % (Auto) Eos % (Auto) Baso % (Auto) Lymph # (Auto) [place] # (Auto) Eos # (Auto) Baso # (Auto) Abs Immat Gran (auto) Absolute Neuts (auto) Absolute Nucleated RBC 0.000 Nucleated RBC % (auto) 0.0 Sodium 143 Potassium 3.6 Chloride 108 Carbon Dioxide 24 Anion Gap 15 BUN 34 H Creatinine 0.90 Estim Creat Clear Calc 69.4 Estimated GFR > 60 Random Glucose 115 D Estimat Average Glucose Hemoglobin A1c % Calcium 9.5 Total Bilirubin 1.3 H Direct Bilirubin AST 32 ALT 34 Alkaline Phosphatase 121 H Total Protein 6.3 L Albumin 4.0 Triglycerides Cholesterol LDL Cholesterol, Calc HDL Cholesterol Vitamin B12 668 25-OH Vitamin D Total Folate 11.8 TSH Urine Color Urine Appearance Urine pH Ur Specific [place] Urine Protein Urine Glucose (UA) Urine Ketones Urine Blood Urine Nitrite Ur Leukocyte Esterase Urine Opiates Screen Urine Fentanyl Screen Ur Barbiturates Screen Nortriptyline Ur Phencyclidine Scrn Ur Amphetamines Screen U Benzodiazepines Scrn Urine Cocaine Screen U Marijuana (THC) Screen Ethyl Alcohol COVID-19 ([facility]) COVID-19 Clin Com 08/25/21 09/09/21 09/10/21 22:35 12:54 07:22 WBC RBC Hgb Hct MCV MCH MCHC RDW Plt Count MPV Immature Gran % (Auto) Neut % (Auto) Lymph % (Auto) [place] % (Auto) Eos % (Auto) Baso % (Auto) Lymph # (Auto) [place] # (Auto) Eos # (Auto) Baso # (Auto) Abs Immat Gran (auto) Absolute Neuts (auto) Absolute Nucleated RBC Nucleated RBC % (auto) Sodium 141 Potassium 4.4 D Chloride 108 Carbon Dioxide 27 Anion Gap 10 L BUN 24 H Creatinine 0.85 Estim Creat Clear Calc 73.9 Estimated GFR > 60 Random Glucose 110 Estimat Average Glucose Hemoglobin A1c % Calcium 9.1 Total Bilirubin 0.6 Direct Bilirubin 0.2 AST 28 ALT 45 H Alkaline Phosphatase 139 H Total Protein 6.8 Albumin 4.1 Triglycerides 96 Cholesterol 131 LDL Cholesterol, Calc 69 HDL Cholesterol 43 Vitamin B12 25-OH Vitamin D Total Folate TSH Urine Color YELLOW Urine Appearance CLEAR Urine pH 6.0 Ur Specific [place] >= 1.030 H Urine Protein TRACE Urine Glucose (UA) NEG Urine Ketones 5 Urine Blood NEG Urine Nitrite NEG Ur Leukocyte Esterase NEG Urine Opiates Screen Urine Fentanyl Screen Ur Barbiturates Screen Nortriptyline Ur Phencyclidine Scrn Ur Amphetamines Screen U Benzodiazepines Scrn Urine Cocaine Screen U Marijuana (THC) Screen Ethyl Alcohol COVID-19 ([facility]) COVID-19 Clin Com 09/10/21 09/10/21 07:22 07:22 WBC RBC Hgb Hct MCV MCH MCHC RDW Plt Count MPV Immature Gran % (Auto) Neut % (Auto) Lymph % (Auto) [place] % (Auto) Eos % (Auto) Baso % (Auto) Lymph # (Auto) [place] # (Auto) Eos # (Auto) Baso # (Auto) Abs Immat Gran (auto) Absolute Neuts (auto) Absolute Nucleated RBC Nucleated RBC % (auto) Sodium Potassium Chloride Carbon Dioxide Anion Gap BUN Creatinine Estim Creat Clear Calc Estimated GFR Random Glucose Estimat Average Glucose 123 Hemoglobin A1c % 5.9 Calcium Total Bilirubin Direct Bilirubin AST ALT Alkaline Phosphatase Total Protein Albumin Triglycerides Cholesterol LDL Cholesterol, Calc HDL Cholesterol Vitamin B12 25-OH Vitamin D Total Folate TSH Urine Color Urine Appearance Urine pH Ur Specific [place] Urine Protein Urine Glucose (UA) Urine Ketones Urine Blood Urine Nitrite Ur Leukocyte Esterase Urine Opiates Screen Urine Fentanyl Screen Ur Barbiturates Screen Nortriptyline 34 L Ur Phencyclidine Scrn Ur Amphetamines Screen U Benzodiazepines Scrn Urine Cocaine Screen U Marijuana (THC) Screen Ethyl Alcohol COVID-19 ([facility]) COVID-19 Clin Com Airway Mallampati Class: II TM Dist: >3cm Neck ROM: Full Denture: Upper Heart: tachy Lungs: cta Assessment and Plan Final Anesthetic Review Family History of Problems with Anesthesia: No History of Problems with Anesthesia: No
--- NOTE | 2021-09-16 07:01 | MHC.SHP ---
Pre-Procedural Eval Section A Date of Service: 09/16/21 The patient is an INPATIENT: Yes Changes since office visit: No Cold of Flu in the past 2 weeks, No New Medical Problems, No Changes in Medication and No Patient answered all questions The History & Physical has been completed within 30 days and I have reviewed it.: Yes Section B Chief Complaint: Recurrent major depressive D/O Severe Allergies: Allergies Allergy/AdvReac Type Severity Reaction Status Date / Time No Known Allergies Allergy Verified 01/25/21 06:43 [No Known Allergies*] Plan I have reviewed the history and physical and performed a pertinent physical examination on my patient. No changes have occurred unless specified.
--- NOTE | 2021-09-16 07:03 | HO.ECTPROC ---
ECT Procedure Note Diagnosis/Treatment Date of Service: 09/16/21 Diagnosis: Major Depressive Disorder Previous ECT Date: 09/13/21 Current Treatment Number: 8 Treatment: Series Interval Clinical Notes: The patient's mood has improved, he has a crowley affect. ECT Settings Device: THYMATRON DGx Electrode Placement: Right Unilateral Program/Pulse Width: 0.50 Energy Percent: 100 Seizure Duration By EEG (in seconds): 0 (EEG didn't recognize seizure of 19 s) By Motor Observation (in seconds): 17 Medications Administration General Anesthetic: Etomidate (12) Muscle Relaxant: Succinylcholine (100) Ancillary Medications Analgesics: Torodol - Pre ECT Anti-emetics: Zofran - Pre ECT Miscillaneous Medications: Midazolam (post seizure due to previous agitation when waking up) Airway Management Airway Management: Bag Mask Ventilation Treatment Recommendations No Changes Recommended: No change Pt Tolerated Procedure w/o Issue: Yes
[2021-09-16] MEDS: Apixaban 5 MG TABLET PO ×2 (08:44→20:15)
[2021-09-16] MEDS: Ferrous Sulfate 324 MG TABLET.DR PO (08:44)
[2021-09-16] MEDS: Docusate Sodium 100 MG CAPSULE PO ×2 (08:45→20:15)
[2021-09-16] MEDS: Omeprazole 20 MG CAPSULE.DR PO (08:45)
[2021-09-16] MEDS: Cholecalciferol (Vitamin D3) 10 MCG TABLET PO (08:45)
[2021-09-16] MEDS: OLANZapine 2.5 MG TABLET 1.25 MG PO (08:45)
--- NOTE | 2021-09-16 12:29 | P.PNPSI_ITS ---
Subjective Subjective Date of Service: 09/16/21 Reason For Visit: Recurrent major depressive D/O Severe Subjective Notes: Conditional Voluntary Interim History: The nursing staff reported that the patient is more visible in the unit. He has even participate in some groups. Today he had ECT without any complications and his mood was much better. On interview, the patient denies new symptoms he looks with a brighter affect and with spontaneous speech. He has Pamelor level was 30 for mg on 50 mg p.o. q.h.s. we discussed options and he agreed increase up to 75. Mental Status Exam Mental Status Exam Patient Appearance: Disheveled and Unkempt Patient Orientation: Person and Situation Level of Consciousness: Awake and Appropriate Patient Behavior: Guarded and Passive Mood Description: Constricted Affect Description: Constricted Patient Cognition Impaired: No Ability to Follow Directions: Good Speech Pattern: Clear Hallucinations: None Delusions: Not Present Thought Process: Linear Thought Content: positive for Linear Judgement: Fair Diagnostics Vital Signs (24Hr): Vital Signs - 24 hr 09/15/21 18:00 09/16/21 04:57 09/16/21 05:30 Temperature 98.4 F 98.1 F 98.1 F Pulse Rate 98 86 86 Respiratory Rate 18 16 16 Blood Pressure 118/65 103/59 L 103/59 L Pulse Oximetry 97 96 96 09/16/21 06:20 09/16/21 07:22 09/16/21 07:27 Temperature 98.8 F 97.7 F Pulse Rate 110 H 106 H 104 H Respiratory Rate 20 16 22 H Blood Pressure 129/81 134/70 99/68 Pulse Oximetry 95 96 96 09/16/21 07:32 09/16/21 07:37 09/16/21 07:53 Temperature Pulse Rate 123 H 117 H 114 H Respiratory Rate 14 22 H 20 Blood Pressure 117/72 109/73 121/85 Pulse Oximetry 95 96 94 09/16/21 08:08 09/16/21 09:00 09/16/21 09:20 Temperature 97.7 F 97.2 F 97.2 F Pulse Rate 111 H 95 95 Respiratory Rate 20 Blood Pressure 134/77 94/63 94/63 Pulse Oximetry 95 98 98 BMI result Body Mass Index 26.2 Labs Results: 08/25/21 22:04 09/10/21 07:22 Labs: Laboratory Results - last 48 hr 09/10/21 07:22 Nortriptyline 34 L Imaging Radiology Impressions: ITS Impressions Chest X-Ray 08/20/21 10:00 IMPRESSION: 1. Lungs grossly clear. No infiltrate or effusion. 2. Hiatal hernia, approximately [address] 08/28/21 15:52 IMPRESSION: No acute intracranial findings. Atrophy and nonspecific periventricular white matter disease similar to previous exams. Medications Medications Current Medications Acetaminophen (Acetaminophen 325 Mg Tablet) 650 mg PO Q6H PRN PRN Reason: Headache/Pain Mild Scale (1-3) Last Admin: 09/14/21 06:00 Dose: 650 mg Documented by: Al Hydroxide/Mg Hydroxide (Magnesium Hydrox/Alum Hydrox 30 Ml Oral.Susp) 30 ml PO Q6H PRN PRN Reason: Heartburn/Nausea Apixaban (Apixaban 5 Mg Tablet) 5 mg PO BID [facility] Last Admin: 09/16/21 08:44 Dose: 5 mg Documented by: Atorvastatin Calcium (Atorvastatin Calcium 40 Mg Tablet) 40 mg PO BEDTIME [facility] Last Admin: 09/15/21 21:03 Dose: 40 mg Documented by: Benzonatate (Benzonatate 100 Mg Capsule) 100 mg PO TID PRN PRN Reason: cough Docusate Sodium (Docusate Sodium 100 Mg Capsule) 100 mg PO BID [facility] Last Admin: 09/16/21 08:45 Dose: 100 mg Documented by: Erythromycin (Erythromycin Base 0.5% Oph Oin 1 Gm Tube) 1 cm EYE-BOTH BID [facility] Last Admin: 09/16/21 08:49 Dose: Not Given Documented by: Ferrous Sulfate (Ferrous Sulfate 324 Mg Tablet.) 324 mg PO DAILY [facility] Last Admin: 09/16/21 08:44 Dose: 324 mg Documented by: Hydroxyzine HCl (Hydroxyzine Hcl 25 Mg Tablet) 25 mg PO BEDTIME PRN PRN Reason: Anxiety Last Admin: 08/25/21 05:36 Dose: 25 mg Documented by: Magnesium Hydroxide (Milk Of Magnesia 30 Ml Oral.Susp) 30 ml PO DAILY PRN PRN Reason: Constipation Last Admin: 09/09/21 20:35 Dose: 30 ml Documented by: Melatonin (Melatonin 3 Mg Tablet) 6 mg PO BEDTIME [facility] Last Admin: 09/15/21 21:03 Dose: 6 mg Documented by: Nortriptyline HCl (Nortriptyline Hcl 25 Mg Capsule) 75 mg PO BEDTIME [facility] Olanzapine (Olanzapine 2.5 Mg Tablet) 1.25 mg PO DAILY PRN PRN Reason: Anxiety Last Admin: 09/16/21 08:45 Dose: 1.25 mg Documented by: Olanzapine (Olanzapine 7.5 Mg Tablet) 7.5 mg PO BEDTIME [facility] Last Admin: 09/15/21 21:01 Dose: 7.5 mg Documented by: Omeprazole (Omeprazole 20 Mg Capsule.) 20 mg PO DAILY@0630 [facility] Last Admin: 09/16/21 08:45 Dose: 20 mg Documented by: Oxybutynin Chloride (Oxybutynin Chloride Er 5 Mg Tab.Er.24) 5 mg PO DAILY [facility] Last Admin: 09/16/21 08:44 Dose: 5 mg Documented by: Senna (Sennosides 8.6 Mg Tablet) 8.6 mg PO BEDTIME [facility] Last Admin: 09/15/21 21:01 Dose: 8.6 mg Documented by: Trazodone HCl (Trazodone Hcl 50 Mg Tablet) 50 mg PO BEDTIME PRN PRN Reason: insomnia Trazodone HCl (Trazodone Hcl 25 Mg Halftab) 75 mg PO BEDTIME [facility] Last Admin: 09/15/21 21:00 Dose: 75 mg Documented by: Vitamin D (Cholecalciferol (Vitamin D3) 10 Mcg Tablet) 10 mcg PO DAILY [facility] Last Admin: 09/16/21 08:45 Dose: 10 mcg Documented by: Allergies Allergies Allergy/AdvReac Type Severity Reaction Status Date / Time No Known Allergies Allergy Verified 01/25/21 06:43 [No Known Allergies*] Assessment & Plan Assessment & Plan (1) Major depressive disorder, recurrent, severe with psychotic features: Status: Acute Code(s): F33.3 - Major depressive disorder, recurrent, severe with psychotic symptoms Assessment and Plan: José Luis is a 76 year old male who carries a dx of MDD, recurrent, severe with hx of psychosis, catatonia. He is known to [facility] for similar presentation and has received ECT with good effect in the past. Case reviewed with Dr. Sims he does not feel there is any different option at this time besides ECT. We did discuss restate belies in the patient and then trying TMS risk ketamine. Case reviewed with patient's healthcare proxy she clearly feels that patient has responded well to ECT generally understands limited options at this time feels that patient not able to make decision at this time The patient fell at 13:30 on Tuesday 08/28. There was no changes in his mental status but he had a laceration on his left eye. We ordered CT scan head and hospitalist consult that were normal. Since then, he was placed him on one-to-one but recently we change his level of observation Plan: 1. Continue Zyprexa 2. Continue ECT. 3. Increase nortriptyline up to 75 mg p.o. q.h.s. I spent minutes with the patient and/or on the patient floor today, greater than?50% of which was spent counseling/coordinating care. Reason for contiued inpatient stay Substantial Risk for: inability to function, rapid decompensation and med/psych decompensation
[2021-09-16] MEDS: Melatonin 3 MG TABLET 6 MG PO (20:13)
[2021-09-16] MEDS: Atorvastatin Calcium 40 MG TABLET PO (20:14)
[2021-09-16] MEDS: Nortriptyline HCl 25 MG CAPSULE 75 MG PO (20:14)
[2021-09-16] MEDS: OLANZapine 7.5 MG TABLET PO (20:15)
[2021-09-16] MEDS: traZODone HCL 25 MG HALFTAB 75 MG PO (20:15)
[2021-09-16] MEDS: Sennosides 8.6 MG TABLET PO (20:15)
[2021-09-17 03:26] VITALS: BP 96/61; PULSE 88; RESP 16; TEMP 36.3; O2SAT 94
[2021-09-17 06:00] VITALS: BP 109/71; PULSE 97; RESP 16; TEMP 36.9; O2SAT 93
[2021-09-17] MEDS: Cholecalciferol (Vitamin D3) 10 MCG TABLET PO (07:40)
[2021-09-17] MEDS: Ferrous Sulfate 324 MG TABLET.DR PO (07:41)
[2021-09-17] MEDS: Apixaban 5 MG TABLET PO ×2 (07:42→20:29)
[2021-09-17] MEDS: Docusate Sodium 100 MG CAPSULE PO ×2 (07:42→20:35)
[2021-09-17] MEDS: Erythromycin Base 0.5% Oph Oin 1 GM TUBE 1 CM EYE-BOTH ×2 (07:42→20:28)
--- NOTE | 2021-09-17 14:04 | P.PNPSI_ITS ---
Subjective Subjective Date of Service: 09/17/21 Reason For Visit: Recurrent major depressive D/O Severe Subjective Notes: Conditional Voluntary Interim History: The staff reported that the patient has attended 1 group, he was seen in the unit watching the TV football game and he has attended the exercise group. On interview, the patient denies new symptoms, he states to feeling better and there was no over-sedation with increase of nortriptyline yesterday. Mental Status Exam Mental Status Exam Patient Appearance: Well Grooomed Patient Orientation: Person Level of Consciousness: Awake Patient Behavior: Cooperative and Passive Mood Description: Apathetic Affect Description: Constricted Ability to Follow Directions: Good Speech Pattern: Clear Memory Description: Intact Hallucinations: None Delusions: Not Present Thought Process: Linear Thought Content: positive for Circumstantial and positive for Linear Judgement: Fair Diagnostics Vital Signs (24Hr): Vital Signs - 24 hr 09/16/21 17:13 09/16/21 20:00 09/16/21 20:25 Temperature 98 F 98.5 F 98.5 F Pulse Rate 94 91 91 Respiratory Rate Blood Pressure 127/63 128/71 128/71 Pulse Oximetry 100 96 96 09/16/21 21:00 09/16/21 22:00 09/17/21 03:26 Temperature 98.5 F 97.8 F 97.3 F Pulse Rate 91 92 88 Respiratory Rate 18 18 16 Blood Pressure 128/71 132/79 96/61 Pulse Oximetry 96 98 94 09/17/21 06:00 Temperature 98.4 F Pulse Rate 97 Respiratory Rate 16 Blood Pressure 109/71 Pulse Oximetry 93 BMI result Body Mass Index 26.2 Labs Results: 08/25/21 22:04 09/10/21 07:22 Imaging Radiology Impressions: ITS Impressions Chest X-Ray 08/20/21 10:00 IMPRESSION: 1. Lungs grossly clear. No infiltrate or effusion. 2. Hiatal hernia, approximately [address] 08/28/21 15:52 IMPRESSION: No acute intracranial findings. Atrophy and nonspecific periventricular white matter disease similar to previous exams. Medications Medications Current Medications Acetaminophen (Acetaminophen 325 Mg Tablet) 650 mg PO Q6H PRN PRN Reason: Headache/Pain Mild Scale (1-3) Last Admin: 09/14/21 06:00 Dose: 650 mg Documented by: Al Hydroxide/Mg Hydroxide (Magnesium Hydrox/Alum Hydrox 30 Ml Oral.Susp) 30 ml PO Q6H PRN PRN Reason: Heartburn/Nausea Apixaban (Apixaban 5 Mg Tablet) 5 mg PO BID [facility] Last Admin: 09/17/21 07:42 Dose: 5 mg Documented by: Atorvastatin Calcium (Atorvastatin Calcium 40 Mg Tablet) 40 mg PO BEDTIME [facility] Last Admin: 09/16/21 20:14 Dose: 40 mg Documented by: Benzonatate (Benzonatate 100 Mg Capsule) 100 mg PO TID PRN PRN Reason: cough Docusate Sodium (Docusate Sodium 100 Mg Capsule) 100 mg PO BID [facility] Last Admin: 09/17/21 07:42 Dose: 100 mg Documented by: Erythromycin (Erythromycin Base 0.5% Oph Oin 1 Gm Tube) 1 cm EYE-BOTH BID [facility] Last Admin: 09/17/21 07:42 Dose: 1 cm Documented by: Ferrous Sulfate (Ferrous Sulfate 324 Mg Tablet.) 324 mg PO DAILY [facility] Last Admin: 09/17/21 07:41 Dose: 324 mg Documented by: Hydroxyzine HCl (Hydroxyzine Hcl 25 Mg Tablet) 25 mg PO BEDTIME PRN PRN Reason: Anxiety Last Admin: 08/25/21 05:36 Dose: 25 mg Documented by: Magnesium Hydroxide (Milk Of Magnesia 30 Ml Oral.Susp) 30 ml PO DAILY PRN PRN Reason: Constipation Last Admin: 09/09/21 20:35 Dose: 30 ml Documented by: Melatonin (Melatonin 3 Mg Tablet) 6 mg PO BEDTIME [facility] Last Admin: 09/16/21 20:13 Dose: 6 mg Documented by: Nortriptyline HCl (Nortriptyline Hcl 25 Mg Capsule) 75 mg PO BEDTIME [facility] Last Admin: 09/16/21 20:14 Dose: 75 mg Documented by: Olanzapine (Olanzapine 2.5 Mg Tablet) 1.25 mg PO DAILY PRN PRN Reason: Anxiety Last Admin: 09/16/21 08:45 Dose: 1.25 mg Documented by: Olanzapine (Olanzapine 7.5 Mg Tablet) 7.5 mg PO BEDTIME [facility] Last Admin: 09/16/21 20:15 Dose: 7.5 mg Documented by: Omeprazole (Omeprazole 20 Mg Capsule.) 20 mg PO DAILY@0630 [facility] Last Admin: 09/16/21 08:45 Dose: 20 mg Documented by: Oxybutynin Chloride (Oxybutynin Chloride Er 5 Mg Tab.Er.24) 5 mg PO DAILY [facility] Last Admin: 09/17/21 07:41 Dose: 5 mg Documented by: Senna (Sennosides 8.6 Mg Tablet) 8.6 mg PO BEDTIME [facility] Last Admin: 09/16/21 20:15 Dose: 8.6 mg Documented by: Trazodone HCl (Trazodone Hcl 50 Mg Tablet) 50 mg PO BEDTIME PRN PRN Reason: insomnia Trazodone HCl (Trazodone Hcl 25 Mg Halftab) 75 mg PO BEDTIME [facility] Last Admin: 09/16/21 20:15 Dose: 75 mg Documented by: Vitamin D (Cholecalciferol (Vitamin D3) 10 Mcg Tablet) 10 mcg PO DAILY [facility] Last Admin: 09/17/21 07:40 Dose: 10 mcg Documented by: Allergies Allergies Allergy/AdvReac Type Severity Reaction Status Date / Time No Known Allergies Allergy Verified 01/25/21 06:43 [No Known Allergies*] Assessment & Plan Assessment & Plan (1) Major depressive disorder, recurrent, severe with psychotic features: Status: Acute Code(s): F33.3 - Major depressive disorder, recurrent, severe with psychotic symptoms Assessment and Plan: José Luis is a 76 year old male who carries a dx of MDD, recurrent, severe with hx of psychosis, catatonia. He is known to [facility] for similar presentation and has received ECT with good effect in the past. Case reviewed with Dr. Sims he does not feel there is any different option at this time besides ECT. We did discuss restate belies in the patient and then trying TMS risk ketamine. Case reviewed with patient's healthcare proxy she clearly feels that patient has responded well to ECT generally understands limit ed options at this time feels that patient not able to make decision at this time The patient fell at 13:30 on Tuesday 08/28. There was no changes in his mental status but he had a laceration on his left eye. We ordered CT scan head and hospitalist consult that were normal. Since then, he was placed him on one-to-one but recently we change his level of observation Plan: 1. Continue Zyprexa 2. Continue ECT. 3. Increase nortriptyline up to 75 mg p.o. q.h.s. 4. Pamelor levels in 3 days I spent minutes with the patient and/or on the patient floor today, gr eater than?50% of which was spent counseling/coordinating care. Reason for contiued inpatient stay Substantial Risk for: inability to function, rapid decompensation and med/psych decompensation
[2021-09-17 18:00] VITALS: BP 144/76; PULSE 86; RESP 19; TEMP 36.2; O2SAT 96
[2021-09-17] MEDS: Atorvastatin Calcium 40 MG TABLET PO (20:29)
[2021-09-17] MEDS: traZODone HCL 25 MG HALFTAB 75 MG PO (20:29)
[2021-09-17] MEDS: Sennosides 8.6 MG TABLET PO (20:29)
[2021-09-17] MEDS: Melatonin 3 MG TABLET 6 MG PO (20:29)
[2021-09-17] MEDS: Nortriptyline HCl 25 MG CAPSULE 75 MG PO (20:29)
[2021-09-17] MEDS: OLANZapine 7.5 MG TABLET PO (20:29)
[2021-09-18 08:21] VITALS: BP 98/58; PULSE 91; RESP 14; TEMP 36.7; O2SAT 95
--- NOTE | 2021-09-18 12:07 | HO.PSYCHPN ---
Subjective Subjective Date of Service: 09/18/21 Reason For Visit: Recurrent major depressive D/O Severe Subjective Notes: Conditional Voluntary Interim History: The nursing staff has reported that the patient has shown a brighter affect and he has even laughed. He denies suicidal ideation and according to staff who knows him from before, his mood is much better. On interview, the patient denies new symptoms he was pleasant and cooperative. We discussed with the patient the need of a nortriptyline level on Thursday. Mental Status Exam Mental Status Exam Patient Appearance: Well Grooomed Patient Orientation: Person Level of Consciousness: Awake Patient Behavior: Cooperative Mood Description: Depressed Affect Description: Constricted Patient Cognition Impaired: Yes Ability to Follow Directions: Good Speech Pattern: Clear Memory Description: Intact Hallucinations: None Delusions: Not Present Thought Process: Linear Thought Content: positive for Circumstantial Judgement: Fair Diagnostics Vital Signs (24Hr): Vital Signs - 24 hr 09/17/21 18:00 09/18/21 08:21 Temperature 97.2 F 98.1 F Pulse Rate 86 91 Respiratory Rate 19 14 Blood Pressure 144/76 H 98/58 L Pulse Oximetry 96 95 BMI result Body Mass Index 26.2 Labs Results: 08/25/21 22:04 09/10/21 07:22 Imaging Radiology Impressions: ITS Impressions Chest X-Ray 08/20/21 10:00 IMPRESSION: 1. Lungs grossly clear. No infiltrate or effusion. 2. Hiatal hernia, approximately [address] 08/28/21 15:52 IMPRESSION: No acute intracranial findings. Atrophy and nonspecific periventricular white matter disease similar to previous exams. Medications Medications Current Medications Acetaminophen (Acetaminophen 325 Mg Tablet) 650 mg PO Q6H PRN PRN Reason: Headache/Pain Mild Scale (1-3) Last Admin: 09/14/21 06:00 Dose: 650 mg Documented by: Al Hydroxide/Mg Hydroxide (Magnesium Hydrox/Alum Hydrox 30 Ml Oral.Susp) 30 ml PO Q6H PRN PRN Reason: Heartburn/Nausea Apixaban (Apixaban 5 Mg Tablet) 5 mg PO BID [facility] Last Admin: 09/17/21 20:29 Dose: 5 mg Documented by: Atorvastatin Calcium (Atorvastatin Calcium 40 Mg Tablet) 40 mg PO BEDTIME [facility] Last Admin: 09/17/21 20:29 Dose: 40 mg Documented by: Benzonatate (Benzonatate 100 Mg Capsule) 100 mg PO TID PRN PRN Reason: cough Docusate Sodium (Docusate Sodium 100 Mg Capsule) 100 mg PO BID [facility] Last Admin: 09/17/21 20:35 Dose: 100 mg Documented by: Erythromycin (Erythromycin Base 0.5% Oph Oin 1 Gm Tube) 1 cm EYE-BOTH BID [facility] Last Admin: 09/17/21 20:28 Dose: 1 cm Documented by: Ferrous Sulfate (Ferrous Sulfate 324 Mg Tablet.) 324 mg PO DAILY [facility] Last Admin: 09/17/21 07:41 Dose: 324 mg Documented by: Hydroxyzine HCl (Hydroxyzine Hcl 25 Mg Tablet) 25 mg PO BEDTIME PRN PRN Reason: Anxiety Last Admin: 08/25/21 05:36 Dose: 25 mg Documented by: Magnesium Hydroxide (Milk Of Magnesia 30 Ml Oral.Susp) 30 ml PO DAILY PRN PRN Reason: Constipation Last Admin: 09/09/21 20:35 Dose: 30 ml Documented by: Melatonin (Melatonin 3 Mg Tablet) 6 mg PO BEDTIME [facility] Last Admin: 09/17/21 20:29 Dose: 6 mg Documented by: Nortriptyline HCl (Nortriptyline Hcl 25 Mg Capsule) 75 mg PO BEDTIME [facility] Last Admin: 09/17/21 20:29 Dose: 75 mg Documented by: Olanzapine (Olanzapine 2.5 Mg Tablet) 1.25 mg PO DAILY PRN PRN Reason: Anxiety Last Admin: 09/16/21 08:45 Dose: 1.25 mg Documented by: Olanzapine (Olanzapine 7.5 Mg Tablet) 7.5 mg PO BEDTIME [facility] Last Admin: 09/17/21 20:29 Dose: 7.5 mg Documented by: Omeprazole (Omeprazole 20 Mg Capsule.) 20 mg PO DAILY@0630 [facility] Last Admin: 09/18/21 08:36 Dose: Not Given Documented by: Oxybutynin Chloride (Oxybutynin Chloride Er 5 Mg Tab.Er.24) 5 mg PO DAILY [facility] Last Admin: 09/17/21 07:41 Dose: 5 mg Documented by: Senna (Sennosides 8.6 Mg Tablet) 8.6 mg PO BEDTIME [facility] Last Admin: 09/17/21 20:29 Dose: 8.6 mg Documented by: Trazodone HCl (Trazodone Hcl 50 Mg Tablet) 50 mg PO BEDTIME PRN PRN Reason: insomnia Trazodone HCl (Trazodone Hcl 25 Mg Halftab) 75 mg PO BEDTIME [facility] Last Admin: 09/17/21 20:29 Dose: 75 mg Documented by: Vitamin D (Cholecalciferol (Vitamin D3) 10 Mcg Tablet) 10 mcg PO DAILY [facility] Last Admin: 09/17/21 07:40 Dose: 10 mcg Documented by: Allergies Allergies Allergy/AdvReac Type Severity Reaction Status Date / Time No Known Allergies Allergy Verified 01/25/21 06:43 [No Known Allergies*] Assessment & Plan Assessment & Plan (1) Major depressive disorder, recurrent, severe with psychotic features: Status: Acute Code(s): F33.3 - Major depressive disorder, recurrent, severe with psychotic symptoms Assessment and Plan: José Luis is a 76 year old male who carries a dx of MDD, recurrent, severe with hx of psychosis, catatonia. He is known to [facility] for similar presentation and has received ECT with good effect in the past. Case reviewed with Dr. Sims he does not feel there is any different option at this time besides ECT. We did discuss restate belies in the patient and then trying TMS risk ketamine. Case reviewed with patient's healthcare proxy she clearly feels that patient has responded well to ECT generally understands limited options at this time feels that patient not able to make decision at this time The patient fell at 13:30 on Tuesday 08/28. There was no changes in his mental status but he had a laceration on his left eye. We ordered CT scan head and hospitalist consult that were normal. Since then, he was placed him on one-to-one but recently we change his level of observation Plan: 1. Continue Zyprexa 2. Continue ECT. 3. Continue nortriptyline up to 75 mg p.o. q.h.s. 4. Pamelor level for September 20. 5. Consider discharge for early next week I spent minutes with the patient and/or on the patient floor today, greater than?50% of which was spent counseling/coordinating care. Reason for contiued inpatient stay Substantial Risk for: inability to function, rapid decompensation and med/psych decompensation
[2021-09-18] MEDS: Ferrous Sulfate 324 MG TABLET.DR PO (13:46)
[2021-09-18] MEDS: Docusate Sodium 100 MG CAPSULE PO ×2 (13:46→19:48)
[2021-09-18] MEDS: Cholecalciferol (Vitamin D3) 10 MCG TABLET PO (13:47)
[2021-09-18] MEDS: Apixaban 5 MG TABLET PO ×2 (13:47→19:45)
[2021-09-18] MEDS: Melatonin 3 MG TABLET 6 MG PO (19:44)
[2021-09-18] MEDS: Sennosides 8.6 MG TABLET PO (19:45)
[2021-09-18] MEDS: Atorvastatin Calcium 40 MG TABLET PO (19:47)
[2021-09-18] MEDS: OLANZapine 7.5 MG TABLET PO (19:47)
[2021-09-18] MEDS: traZODone HCL 25 MG HALFTAB 75 MG PO (19:47)
[2021-09-18] MEDS: Nortriptyline HCl 25 MG CAPSULE 75 MG PO (19:48)
[2021-09-18] MEDS: Erythromycin Base 0.5% Oph Oin 1 GM TUBE 1 CM EYE-BOTH (19:48)
[2021-09-18 20:12] VITALS: BP 157/77; PULSE 98; RESP 18; TEMP 36.7; O2SAT 97
[2021-09-19] MEDS: Omeprazole 20 MG CAPSULE.DR PO (06:23)
[2021-09-19 07:00] VITALS: BMI 27.0
[2021-09-19] MEDS: Docusate Sodium 100 MG CAPSULE PO ×2 (08:30→20:31)
[2021-09-19] MEDS: Ferrous Sulfate 324 MG TABLET.DR PO (08:30)
[2021-09-19] MEDS: Apixaban 5 MG TABLET PO ×2 (08:30→20:32)
[2021-09-19] MEDS: Cholecalciferol (Vitamin D3) 10 MCG TABLET PO (08:30)
[2021-09-19] MEDS: Erythromycin Base 0.5% Oph Oin 1 GM TUBE 1 CM EYE-BOTH ×2 (08:31→20:34)
[2021-09-19 09:25] VITALS: BP 104/65; PULSE 92; RESP 16; TEMP 36.7; O2SAT 96
--- NOTE | 2021-09-19 13:25 | HO.PSYCHPN ---
Subjective Subjective Date of Service: 09/19/21 Reason For Visit: Recurrent major depressive D/O Severe Subjective Notes: Conditional Voluntary Interim History: The nursing staff reported that the patient slept well, he is having his meals in the common area and his affect is brighter, he even he jokes sporadically. On interview, the patient denies new symptoms he feels much better. We will have ECT tomorrow Mental Status Exam Mental Status Exam Patient Appearance: Well Grooomed Patient Orientation: Person Level of Consciousness: Awake Patient Behavior: Appropriate and Cooperative Mood Description: Depressed Affect Description: Constricted Patient Cognition Impaired: Yes Ability to Follow Directions: Good Speech Pattern: Clear Memory Description: Intact Hallucinations: None Delusions: Not Present Thought Process: Linear Thought Content: positive for Circumstantial Judgement: Fair Diagnostics Vital Signs (24Hr): Vital Signs - 24 hr 09/18/21 20:12 09/19/21 09:25 Temperature 98.1 F 98.0 F Pulse Rate 98 92 Respiratory Rate 18 16 Blood Pressure 157/77 H 104/65 Pulse Oximetry 97 96 BMI result Body Mass Index 27.0 Labs Results: 08/25/21 22:04 09/10/21 07:22 Imaging Radiology Impressions: ITS Impressions Chest X-Ray 08/20/21 10:00 IMPRESSION: 1. Lungs grossly clear. No infiltrate or effusion. 2. Hiatal hernia, approximately [address] 08/28/21 15:52 IMPRESSION: No acute intracranial findings. Atrophy and nonspecific periventricular white matter disease similar to previous exams. Medications Medications Current Medications Acetaminophen (Acetaminophen 325 Mg Tablet) 650 mg PO Q6H PRN PRN Reason: Headache/Pain Mild Scale (1-3) Last Admin: 09/14/21 06:00 Dose: 650 mg Documented by: Al Hydroxide/Mg Hydroxide (Magnesium Hydrox/Alum Hydrox 30 Ml Oral.Susp) 30 ml PO Q6H PRN PRN Reason: Heartburn/Nausea Apixaban (Apixaban 5 Mg Tablet) 5 mg PO BID [facility] Last Admin: 09/19/21 08:30 Dose: 5 mg Documented by: Atorvastatin Calcium (Atorvastatin Calcium 40 Mg Tablet) 40 mg PO BEDTIME [facility] Last Admin: 09/18/21 19:47 Dose: 40 mg Documented by: Benzonatate (Benzonatate 100 Mg Capsule) 100 mg PO TID PRN PRN Reason: cough Docusate Sodium (Docusate Sodium 100 Mg Capsule) 100 mg PO BID [facility] Last Admin: 09/19/21 08:30 Dose: 100 mg Documented by: Erythromycin (Erythromycin Base 0.5% Oph Oin 1 Gm Tube) 1 cm EYE-BOTH BID [facility] Last Admin: 09/19/21 08:31 Dose: 1 cm Documented by: Ferrous Sulfate (Ferrous Sulfate 324 Mg Tablet.) 324 mg PO DAILY [facility] Last Admin: 09/19/21 08:30 Dose: 324 mg Documented by: Hydroxyzine HCl (Hydroxyzine Hcl 25 Mg Tablet) 25 mg PO BEDTIME PRN PRN Reason: Anxiety Last Admin: 08/25/21 05:36 Dose: 25 mg Documented by: Magnesium Hydroxide (Milk Of Magnesia 30 Ml Oral.Susp) 30 ml PO DAILY PRN PRN Reason: Constipation Last Admin: 09/09/21 20:35 Dose: 30 ml Documented by: Melatonin (Melatonin 3 Mg Tablet) 6 mg PO BEDTIME [facility] Last Admin: 09/18/21 19:44 Dose: 6 mg Documented by: Nortriptyline HCl (Nortriptyline Hcl 25 Mg Capsule) 75 mg PO BEDTIME [facility] Last Admin: 09/18/21 19:48 Dose: 75 mg Documented by: Olanzapine (Olanzapine 2.5 Mg Tablet) 1.25 mg PO DAILY PRN PRN Reason: Anxiety Last Admin: 09/16/21 08:45 Dose: 1.25 mg Documented by: Olanzapine (Olanzapine 7.5 Mg Tablet) 7.5 mg PO BEDTIME [facility] Last Admin: 09/18/21 19:47 Dose: 7.5 mg Documented by: Omeprazole (Omeprazole 20 Mg Capsule.) 20 mg PO DAILY@0630 [facility] Last Admin: 09/19/21 06:23 Dose: 20 mg Documented by: Oxybutynin Chloride (Oxybutynin Chloride Er 5 Mg Tab.Er.24) 5 mg PO DAILY [facility] Last Admin: 09/19/21 08:30 Dose: 5 mg Documented by: Senna (Sennosides 8.6 Mg Tablet) 8.6 mg PO BEDTIME [facility] Last Admin: 09/18/21 19:45 Dose: 8.6 mg Documented by: Trazodone HCl (Trazodone Hcl 50 Mg Tablet) 50 mg PO BEDTIME PRN PRN Reason: insomnia Trazodone HCl (Trazodone Hcl 25 Mg Halftab) 75 mg PO BEDTIME [facility] Last Admin: 09/18/21 19:47 Dose: 75 mg Documented by: Vitamin D (Cholecalciferol (Vitamin D3) 10 Mcg Tablet) 10 mcg PO DAILY [facility] Last Admin: 09/19/21 08:30 Dose: 10 mcg Documented by: Allergies Allergies Allergy/AdvReac Type Severity Reaction Status Date / Time No Known Allergies Allergy Verified 01/25/21 06:43 [No Known Allergies*] Assessment & Plan Assessment & Plan (1) Major depressive disorder, recurrent, severe with psychotic features: Status: Acute Code(s): F33.3 - Major depressive disorder, recurrent, severe with psychotic symptoms Assessment and Plan: José Luis is a 76 year old male who carries a dx of MDD, recurrent, severe with hx of psychosis, catatonia. He is known to [facility] for similar presentation and has received ECT with good effect in the past. Case reviewed with Dr. Sims he does not feel there is any different option at this time besides ECT. We did discuss restate belies in the patient and then trying TMS risk ketamine. Case reviewed with patient's healthcare proxy she clearly feels that patient has responded well to ECT generally understands limited options at this time feels that patient not able to make decision at this time The patient fell at 13:30 on Tuesday 08/28. There was no changes in his mental status but he had a laceration on his left eye. We ordered CT scan head and hospitalist consult that were normal. Since then, he was placed him on one-to-one but recently we change his level of observation Plan: 1. Continue Zyprexa 2. Continue ECT. 3. Continue nortriptyline up to 75 mg p.o. q.h.s. 4. Pamelor level for September 22. 5. Consider discharge for early next week I spent minutes with the patient and/or on the patient floor today, greater than?50% of which was spent counseling/coordinating care. Reason for contiued inpatient stay Substantial Risk for: inability to function, rapid decompensation and med/psych decompensation
[2021-09-19 20:11] VITALS: BP 119/66; PULSE 92; RESP 18; TEMP 36.8; O2SAT 97
[2021-09-19] MEDS: OLANZapine 7.5 MG TABLET PO (20:29)
[2021-09-19] MEDS: Melatonin 3 MG TABLET 6 MG PO (20:30)
[2021-09-19] MEDS: Sennosides 8.6 MG TABLET PO (20:30)
[2021-09-19] MEDS: traZODone HCL 25 MG HALFTAB 75 MG PO (20:30)
[2021-09-19] MEDS: Atorvastatin Calcium 40 MG TABLET PO (20:31)
[2021-09-19] MEDS: Nortriptyline HCl 25 MG CAPSULE 75 MG PO (20:32)
[2021-09-20] VITALS (10 sets, daily range): BP systolic 104–142; BP diastolic 57–89; PULSE 88–121; RESP 14–19; TEMP 36.3–37.3; O2SAT 95–99
--- NOTE | 2021-09-20 08:23 | HO.ANESPROP2 ---
[facility] Active Problems Active Problems: All Active Problems (Updated 08/21/21 @ 09:05 by Leila Bryson APRN) Major depressive disorder, recurrent, severe with psychotic features (Acute) Depression (Acute) Physical deconditioning (Acute) Preoperative cardiovascular examination (Acute) Anemia (Acute) GERD (gastroesophageal reflux disease) (Acute) Past Medical History Medical History COVID-19 vaccine administered Dementia Depression Diverticulitis of colon with perforation GERD (gastroesophageal reflux disease) History of electroconvulsive therapy HTN (hypertension) Hyperlipidemia Major depressive disorder, recurrent, severe with psychotic features Pulmonary embolism SVT (supraventricular tachycardia) Functional capacity: uses cane/walker Family History Family History Brother Blood clot in vein Other No history of cardiac disorder Family history of problems with anesthesia: No Surgical History Surgical History H/O colonoscopy H/O hernia repair History of colostomy reversal History of esophagogastroduodenoscopy (EGD) Status post Paula's procedure History of Problems with Anesthesia: No Social History Social History Household Members: Other Housing: Assisted Living Facility Are you a primary care management associate to a significant other at home: No Do you presently have visiting nurse or other home services: No Alcohol intake: former Patient Tobacco Use Status: Never used Tobacco Second Hand Smoke Exposure: No Use of substances other than those prescribed or required for medical reasons: No Currently Displaying Signs/Symptoms of Drug Intoxication Withdrawal: No Have you been hit, kicked, punched, or otherwise hurt by someone within the past year? If so, by whom?: No Do you feel safe in your current relationship?: No Current Relationship Is there a partner from a previous relationship who is making you feel unsafe now?: No Are you made to feel afraid or neglected: No Spiritual Healthcare Practices: refusing to respond Evangelical Healthcare Practices: refusing to respond Cultural Healthcare Practices: refusing to respond Are you DNR?: No Advance Directives: Yes Advance Directives Information Provided: No Advance Directives on File: Yes Advance Directives Date on File: 07/27/20 Do you have thoughts of harming others: None Do you have a plan to hurt others: No Plan Recently lost weight without trying: Unsure Poor oral hygiene: Yes service: Yes Current occupational status: retired Sexual orientation: Straight/Heterosexual Meds Allergies Allergy/AdvReac Type Severity Reaction Status Date / Time No Known Allergies Allergy Verified 01/25/21 06:43 [No Known Allergies*] Active Medications: Current Medications Acetaminophen (Acetaminophen 325 Mg Tablet) 650 mg PO Q6H PRN PRN Reason: Headache/Pain Mild Scale (1-3) Last Admin: 09/14/21 06:00 Dose: 650 mg Documented by: Al Hydroxide/Mg Hydroxide (Magnesium Hydrox/Alum Hydrox 30 Ml Oral.Susp) 30 ml PO Q6H PRN PRN Reason: Heartburn/Nausea Apixaban (Apixaban 5 Mg Tablet) 5 mg PO BID [facility] Last Admin: 09/19/21 20:32 Dose: 5 mg Documented by: Atorvastatin Calcium (Atorvastatin Calcium 40 Mg Tablet) 40 mg PO BEDTIME [facility] Last Admin: 09/19/21 20:31 Dose: 40 mg Documented by: Benzonatate (Benzonatate 100 Mg Capsule) 100 mg PO TID PRN PRN Reason: cough Docusate Sodium (Docusate Sodium 100 Mg Capsule) 100 mg PO BID [facility] Last Admin: 09/19/21 20:31 Dose: 100 mg Documented by: Erythromycin (Erythromycin Base 0.5% Oph Oin 1 Gm Tube) 1 cm EYE-BOTH BID [facility] Last Admin: 09/19/21 20:34 Dose: 1 cm Documented by: Ferrous Sulfate (Ferrous Sulfate 324 Mg Tablet.) 324 mg PO DAILY [facility] Last Admin: 09/19/21 08:30 Dose: 324 mg Documented by: Hydroxyzine HCl (Hydroxyzine Hcl 25 Mg Tablet) 25 mg PO BEDTIME PRN PRN Reason: Anxiety Last Admin: 08/25/21 05:36 Dose: 25 mg Documented by: Lactated Ringer's (Lr) 1,000 mls @ 50 mls/hr IVCONT .Q20H [facility] Magnesium Hydroxide (Milk Of Magnesia 30 Ml Oral.Susp) 30 ml PO DAILY PRN PRN Reason: Constipation Last Admin: 09/09/21 20:35 Dose: 30 ml Documented by: Melatonin (Melatonin 3 Mg Tablet) 6 mg PO BEDTIME [facility] Last Admin: 09/19/21 20:30 Dose: 6 mg Documented by: Nortriptyline HCl (Nortriptyline Hcl 25 Mg Capsule) 75 mg PO BEDTIME [facility] Last Admin: 09/19/21 20:32 Dose: 75 mg Documented by: Olanzapine (Olanzapine 2.5 Mg Tablet) 1.25 mg PO DAILY PRN PRN Reason: Anxiety Last Admin: 09/16/21 08:45 Dose: 1.25 mg Documented by: Olanzapine (Olanzapine 7.5 Mg Tablet) 7.5 mg PO BEDTIME [facility] Last Admin: 09/19/21 20:29 Dose: 7.5 mg Documented by: Omeprazole (Omeprazole 20 Mg Capsule.Dr) 20 mg PO DAILY@0630 [facility] Last Admin: 09/19/21 06:23 Dose: 20 mg Documented by: Oxybutynin Chloride (Oxybutynin Chloride Er 5 Mg Tab.Er.24) 5 mg PO DAILY [facility] Last Admin: 09/19/21 08:30 Dose: 5 mg Documented by: Senna (Sennosides 8.6 Mg Tablet) 8.6 mg PO BEDTIME [facility] Last Admin: 09/19/21 20:30 Dose: 8.6 mg Documented by: Trazodone HCl (Trazodone Hcl 50 Mg Tablet) 50 mg PO BEDTIME PRN PRN Reason: insomnia Trazodone HCl (Trazodone Hcl 25 Mg Halftab) 75 mg PO BEDTIME [facility] Last Admin: 09/19/21 20:30 Dose: 75 mg Documented by: Vitamin D (Cholecalciferol (Vitamin D3) 10 Mcg Tablet) 10 mcg PO DAILY [facility] Last Admin: 09/19/21 08:30 Dose: 10 mcg Documented by: Home Medications Medication Instructions Recorded Confirmed Last Taken Type atorvastatin 40 mg tablet 1 tab PO BEDTIME 08/18/21 08/18/21 Unknown History benztropine 1 mg tablet 1 tab PO BID 08/18/21 08/18/21 Unknown History finasteride 5 mg tablet 1 tab PO DAILY 08/18/21 08/18/21 Unknown History fluoxetine 10 mg capsule 1 cap PO DAILY 08/18/21 08/18/21 Unknown History olanzapine 10 mg tablet 5 mg PO BEDTIME 08/18/21 08/18/21 Unknown History olanzapine 2.5 mg tablet 0.5 tab PO DAILY PRN 08/18/21 08/18/21 Unknown History omeprazole 20 mg capsule,delayed 1 cap PO DAILY 08/18/21 08/18/21 Unknown History release propranolol 10 mg tablet 1 tab PO TID PRN 08/18/21 08/18/21 Unknown History trazodone 50 mg tablet 50 mg PO BEDTIME 08/18/21 08/18/21 Unknown History Exam Exam Date and Time: September 20, 2021 0823 Height,Weight and Vital Signs: Height 5 ft 10 in Weight 85.4 kg Last Vital Signs Temp 98.3 F 09/19/21 20:11 Pulse 92 09/19/21 20:11 Resp 18 09/19/21 20:11 BP 119/66 09/19/21 20:11 Pulse Ox 97 09/19/21 20:11 Pertinent Lab Results Pertinent Lab Results: Laboratory Tests 08/17/21 08/17/21 08/17/21 20:30 20:31 20:31 WBC RBC Hgb Hct MCV MCH MCHC RDW Plt Count MPV Immature Gran % (Auto) Neut % (Auto) Lymph % (Auto) [place] % (Auto) Eos % (Auto) Baso % (Auto) Lymph # (Auto) [place] # (Auto) Eos # (Auto) Baso # (Auto) Abs Immat Gran (auto) Absolute Neuts (auto) Absolute Nucleated RBC Nucleated RBC % (auto) Sodium Potassium Chloride Carbon Dioxide Anion Gap BUN Creatinine Estim Creat Clear Calc Estimated GFR Random Glucose Estimat Average Glucose Hemoglobin A1c % Calcium Total Bilirubin Direct Bilirubin AST ALT Alkaline Phosphatase Total Protein Albumin Triglycerides Cholesterol LDL Cholesterol, Calc HDL Cholesterol Vitamin B12 25-OH Vitamin D Total Folate TSH Urine Color YELLOW Urine Appearance HAZY Urine pH 6.0 Ur Specific [place] 1.025 Urine Protein NEG Urine Glucose (UA) NEG Urine Ketones NEG Urine Blood NEG Urine Nitrite NEG Ur Leukocyte Esterase NEG Urine Opiates Screen Not Detected Urine Fentanyl Screen POSITIVE H Ur Barbiturates Screen Not Detected Nortriptyline Ur Phencyclidine Scrn Not Detected Ur Amphetamines Screen Not Detected U Benzodiazepines Scrn Not Detected Urine Cocaine Screen Not Detected U Marijuana (THC) Screen Not Detected Ethyl Alcohol COVID-19 ([facility]) Negative COVID-19 Clin Com See Note 08/17/21 08/17/21 08/17/21 21:16 21:16 21:17 WBC 5.4 RBC 4.22 L Hgb 14.0 Hct 40.9 L MCV 96.9 MCH 33.2 H MCHC 34.2 RDW 13.0 Plt Count 160 MPV 8.7 L Immature Gran % (Auto) 0.2 Neut % (Auto) 64.6 Lymph % (Auto) 21.5 [place] % (Auto) 10.4 Eos % (Auto) 3.1 Baso % (Auto) 0.2 Lymph # (Auto) 1.2 [place] # (Auto) 0.6 Eos # (Auto) 0.2 Baso # (Auto) 0.0 Abs Immat Gran (auto) 0.01 Absolute Neuts (auto) 3.5 Absolute Nucleated RBC 0.000 Nucleated RBC % (auto) 0.0 Sodium 143 Potassium 4.0 Chloride 108 Carbon Dioxide 27 Anion Gap 12 BUN 21 H Creatinine 1.03 Estim Creat Clear Calc 60.6 Estimated GFR > 60 Random Glucose 169 H Estimat Average Glucose Hemoglobin A1c % Calcium 9.7 D Total Bilirubin Direct Bilirubin AST ALT Alkaline Phosphatase Total Protein Albumin Triglycerides Cholesterol LDL Cholesterol, Calc HDL Cholesterol Vitamin B12 25-OH Vitamin D Total Folate TSH Urine Color Urine Appearance Urine pH Ur Specific [place] Urine Protein Urine Glucose (UA) Urine Ketones Urine Blood Urine Nitrite Ur Leukocyte Esterase Urine Opiates Screen Urine Fentanyl Screen Ur Barbiturates Screen Nortriptyline Ur Phencyclidine Scrn Ur Amphetamines Screen U Benzodiazepines Scrn Urine Cocaine Screen U Marijuana (THC) Screen Ethyl Alcohol < 10 COVID-19 ([facility]) COVID-19 Clin Com 08/19/21 08/20/21 08/20/21 09:11 08:25 08:25 WBC RBC Hgb Hct MCV MCH MCHC RDW Plt Count MPV Immature Gran % (Auto) Neut % (Auto) Lymph % (Auto) [place] % (Auto) Eos % (Auto) Baso % (Auto) Lymph # (Auto) [place] # (Auto) Eos # (Auto) Baso # (Auto) Abs Immat Gran (auto) Absolute Neuts (auto) Absolute Nucleated RBC Nucleated RBC % (auto) Sodium 140 Potassium 4.1 Chloride 106 Carbon Dioxide 19 L Anion Gap 19 BUN 30 H Creatinine 0.91 Estim Creat Clear Calc 68.6 Estimated GFR > 60 Random Glucose 84 D Estimat Average Glucose 120 Hemoglobin A1c % 5.8 Calcium 9.4 Total Bilirubin 1.4 H Direct Bilirubin AST 23 ALT 22 Alkaline Phosphatase 124 H Total Protein 6.9 Albumin 4.3 Triglycerides 118 Cholesterol 153 LDL Cholesterol, Calc 90 HDL Cholesterol 40 Vitamin B12 25-OH Vitamin D Total 24.8 Folate TSH 0.60 Urine Color Urine Appearance Urine pH Ur Specific [place] Urine Protein Urine Glucose (UA) Urine Ketones Urine Blood Urine Nitrite Ur Leukocyte Esterase Urine Opiates Screen Urine Fentanyl Screen Ur Barbiturates Screen Nortriptyline Ur Phencyclidine Scrn Ur Amphetamines Screen U Benzodiazepines Scrn Urine Cocaine Screen U Marijuana (THC) Screen Ethyl Alcohol COVID-19 ([facility]) Negative COVID-19 Clin Com See Note 08/20/21 08/25/21 08/25/21 08:25 22:04 22:04 WBC 5.6 RBC 4.05 L Hgb 13.8 L Hct 38.5 L MCV 95.1 MCH 34.1 H MCHC 35.8 RDW 13.2 Plt Count 165 MPV 8.7 L Immature Gran % (Auto) Neut % (Auto) Lymph % (Auto) [place] % (Auto) Eos % (Auto) Baso % (Auto) Lymph # (Auto) [place] # (Auto) Eos # (Auto) Baso # (Auto) Abs Immat Gran (auto) Absolute Neuts (auto) Absolute Nucleated RBC 0.000 Nucleated RBC % (auto) 0.0 Sodium 143 Potassium 3.6 Chloride 108 Carbon Dioxide 24 Anion Gap 15 BUN 34 H Creatinine 0.90 Estim Creat Clear Calc 69.4 Estimated GFR > 60 Random Glucose 115 D Estimat Average Glucose Hemoglobin A1c % Calcium 9.5 Total Bilirubin 1.3 H Direct Bilirubin AST 32 ALT 34 Alkaline Phosphatase 121 H Total Protein 6.3 L Albumin 4.0 Triglycerides Cholesterol LDL Cholesterol, Calc HDL Cholesterol Vitamin B12 668 25-OH Vitamin D Total Folate 11.8 TSH Urine Color Urine Appearance Urine pH Ur Specific [place] Urine Protein Urine Glucose (UA) Urine Ketones Urine Blood Urine Nitrite Ur Leukocyte Esterase Urine Opiates Screen Urine Fentanyl Screen Ur Barbiturates Screen Nortriptyline Ur Phencyclidine Scrn Ur Amphetamines Screen U Benzodiazepines Scrn Urine Cocaine Screen U Marijuana (THC) Screen Ethyl Alcohol COVID-19 ([facility]) COVID-19 Clin Com 08/25/21 09/09/21 09/10/21 22:35 12:54 07:22 WBC RBC Hgb Hct MCV MCH MCHC RDW Plt Count MPV Immature Gran % (Auto) Neut % (Auto) Lymph % (Auto) [place] % (Auto) Eos % (Auto) Baso % (Auto) Lymph # (Auto) [place] # (Auto) Eos # (Auto) Baso # (Auto) Abs Immat Gran (auto) Absolute Neuts (auto) Absolute Nucleated RBC Nucleated RBC % (auto) Sodium 141 Potassium 4.4 D Chloride 108 Carbon Dioxide 27 Anion Gap 10 L BUN 24 H Creatinine 0.85 Estim Creat Clear Calc 73.9 Estimated GFR > 60 Random Glucose 110 Estimat Average Glucose Hemoglobin A1c % Calcium 9.1 Total Bilirubin 0.6 Direct Bilirubin 0.2 AST 28 ALT 45 H Alkaline Phosphatase 139 H Total Protein 6.8 Albumin 4.1 Triglycerides 96 Cholesterol 131 LDL Cholesterol, Calc 69 HDL Cholesterol 43 Vitamin B12 25-OH Vitamin D Total Folate TSH Urine Color YELLOW Urine Appearance CLEAR Urine pH 6.0 Ur Specific [place] >= 1.030 H Urine Protein TRACE Urine Glucose (UA) NEG Urine Ketones 5 Urine Blood NEG Urine Nitrite NEG Ur Leukocyte Esterase NEG Urine Opiates Screen Urine Fentanyl Screen Ur Barbiturates Screen Nortriptyline Ur Phencyclidine Scrn Ur Amphetamines Screen U Benzodiazepines Scrn Urine Cocaine Screen U Marijuana (THC) Screen Ethyl Alcohol COVID-19 ([facility]) COVID-19 Clin Com 09/10/21 09/10/21 07:22 07:22 WBC RBC Hgb Hct MCV MCH MCHC RDW Plt Count MPV Immature Gran % (Auto) Neut % (Auto) Lymph % (Auto) [place] % (Auto) Eos % (Auto) Baso % (Auto) Lymph # (Auto) [place] # (Auto) Eos # (Auto) Baso # (Auto) Abs Immat Gran (auto) Absolute Neuts (auto) Absolute Nucleated RBC Nucleated RBC % (auto) Sodium Potassium Chloride Carbon Dioxide Anion Gap BUN Creatinine Estim Creat Clear Calc Estimated GFR Random Glucose Estimat Average Glucose 123 Hemoglobin A1c % 5.9 Calcium Total Bilirubin Direct Bilirubin AST ALT Alkaline Phosphatase Total Protein Albumin Triglycerides Cholesterol LDL Cholesterol, Calc HDL Cholesterol Vitamin B12 25-OH Vitamin D Total Folate TSH Urine Color Urine Appearance Urine pH Ur Specific [place] Urine Protein Urine Glucose (UA) Urine Ketones Urine Blood Urine Nitrite Ur Leukocyte Esterase Urine Opiates Screen Urine Fentanyl Screen Ur Barbiturates Screen Nortriptyline 34 L Ur Phencyclidine Scrn Ur Amphetamines Screen U Benzodiazepines Scrn Urine Cocaine Screen U Marijuana (THC) Screen Ethyl Alcohol COVID-19 ([facility]) COVID-19 Clin Com Airway Mallampati Class: II TM Dist: >3cm Neck ROM: Full Denture: Upper Heart: rrr Lungs: cta Assessment and Plan Assessment Anesthesia Assessment: Anesthesia Plan Discussed and Chart Reviewed Final Anesthetic Review Family History of Problems with Anesthesia: No History of Problems with Anesthesia: No NPO: Yes ASA Class: III Final Preanesthetic Review: No Changes in Pt Med Stat, Meds/Allgs Chart Reviewed and Consent Obtained/Reviewed Patient Risk: Intermediate Procedure Risk: Intermediate Anesthetic Plan Anesthetic Plan: GA Disposition: Standard PACU
--- NOTE | 2021-09-20 09:33 | MHC.SHP ---
Pre-Procedural Eval Section A Date of Service: 09/20/21 The patient is an INPATIENT: Yes Changes since office visit: Yes Patient answered all questions; No Cold of Flu in the past 2 weeks, No New Medical Problems and No Changes in Medication The History & Physical has been completed within 30 days and I have reviewed it.: Yes Section B Chief Complaint: Recurrent major depressive D/O Severe Allergies: Allergies Allergy/AdvReac Type Severity Reaction Status Date / Time No Known Allergies Allergy Verified 01/25/21 06:43 [No Known Allergies*] Plan I have reviewed the history and physical and performed a pertinent physical examination on my patient. No changes have occurred unless specified.
--- NOTE | 2021-09-20 09:34 | HO.ECTPROC ---
ECT Procedure Note Diagnosis/Treatment Date of Service: 09/20/21 Diagnosis: Major Depressive Disorder and Catatonia Previous ECT Date: 09/13/21 Current Treatment Number: 9 Treatment: Series Interval Clinical Notes: much improved ECT Settings Device: THYMATRON DGx Electrode Placement: Right Unilateral Program/Pulse Width: 0.50 Energy Percent: 100 Seizure Duration By EEG (in seconds): 23 Medications Administration General Anesthetic: Etomidate (12) Muscle Relaxant: Succinylcholine (100) Ancillary Medications Anti-emetics: Zofran - Pre ECT Miscillaneous Medications: Propofol and Midazolam Airway Management Airway Management: Bag Mask Ventilation Treatment Recommendations Notes: continue [facility] Tolerated Procedure w/o Issue: Yes
[2021-09-20] MEDS: Docusate Sodium 100 MG CAPSULE PO ×2 (11:04→20:01)
[2021-09-20] MEDS: Cholecalciferol (Vitamin D3) 10 MCG TABLET PO (11:04)
[2021-09-20] MEDS: Ferrous Sulfate 324 MG TABLET.DR PO (11:05)
[2021-09-20] MEDS: Erythromycin Base 0.5% Oph Oin 1 GM TUBE 1 CM EYE-BOTH (11:05)
[2021-09-20] MEDS: Apixaban 5 MG TABLET PO ×2 (11:05→20:01)
--- NOTE | 2021-09-20 13:52 | HO.PSYCHPN ---
Subjective Subjective Date of Service: 09/20/21 Reason For Visit: Recurrent major depressive D/O Severe Subjective Notes: Conditional Voluntary Interim History: The nursing staff reported the patient is much better, his affect is brighter and he has show humor. There is no dizziness after ECT. His gait is normal but we will order a PT evaluation sings the [facility] requested. Mental Status Exam Mental Status Exam Patient Appearance: Well Grooomed Patient Orientation: Person Level of Consciousness: Awake Patient Behavior: Cooperative Mood Description: Calm Affect Description: Constricted Patient Cognition Impaired: No Ability to Follow Directions: Good Speech Pattern: Clear Hallucinations: None Delusions: Not Present Thought Process: Linear Thought Content: positive for Circumstantial Judgement: Fair Diagnostics Vital Signs (24Hr): Vital Signs - 24 hr 09/19/21 20:11 09/20/21 08:28 09/20/21 09:51 Temperature 98.3 F 98.8 F 99.2 F Pulse Rate 92 98 105 H Respiratory Rate 18 17 16 Blood Pressure 119/66 136/80 142/83 H Pulse Oximetry 97 95 98 09/20/21 09:56 09/20/21 10:01 09/20/21 10:06 Temperature Pulse Rate 106 H 112 H 121 H Respiratory Rate 19 19 18 Blood Pressure 142/83 H 124/82 135/89 Pulse Oximetry 98 98 96 09/20/21 10:21 09/20/21 10:36 09/20/21 11:23 Temperature 97.3 F 97.6 F Pulse Rate 112 H 100 95 Respiratory Rate 17 17 14 Blood Pressure 135/89 128/82 130/65 Pulse Oximetry 96 99 95 09/20/21 13:22 Temperature Pulse Rate 95 Respiratory Rate Blood Pressure 130/65 Pulse Oximetry 95 BMI result Body Mass Index 27.0 Labs Results: 08/25/21 22:04 09/10/21 07:22 Imaging Radiology Impressions: ITS Impressions Chest X-Ray 08/20/21 10:00 IMPRESSION: 1. Lungs grossly clear. No infiltrate or effusion. 2. Hiatal hernia, approximately [address] 08/28/21 15:52 IMPRESSION: No acute intracranial findings. Atrophy and nonspecific periventricular white matter disease similar to previous exams. Medications Medications Current Medications Acetaminophen (Acetaminophen 325 Mg Tablet) 650 mg PO Q6H PRN PRN Reason: Headache/Pain Mild Scale (1-3) Last Admin: 09/14/21 06:00 Dose: 650 mg Documented by: Al Hydroxide/Mg Hydroxide (Magnesium Hydrox/Alum Hydrox 30 Ml Oral.Susp) 30 ml PO Q6H PRN PRN Reason: Heartburn/Nausea Apixaban (Apixaban 5 Mg Tablet) 5 mg PO BID [facility] Last Admin: 09/20/21 11:05 Dose: 5 mg Documented by: Atorvastatin Calcium (Atorvastatin Calcium 40 Mg Tablet) 40 mg PO BEDTIME [facility] Last Admin: 09/19/21 20:31 Dose: 40 mg Documented by: Benzonatate (Benzonatate 100 Mg Capsule) 100 mg PO TID PRN PRN Reason: cough Docusate Sodium (Docusate Sodium 100 Mg Capsule) 100 mg PO BID [facility] Last Admin: 09/20/21 11:04 Dose: 100 mg Documented by: Erythromycin (Erythromycin Base 0.5% Oph Oin 1 Gm Tube) 1 cm EYE-BOTH BID [facility] Last Admin: 09/20/21 11:05 Dose: 1 cm Documented by: Ferrous Sulfate (Ferrous Sulfate 324 Mg Tablet.Dr) 324 mg PO DAILY [facility] Last Admin: 09/20/21 11:05 Dose: 324 mg Documented by: Hydroxyzine HCl (Hydroxyzine Hcl 25 Mg Tablet) 25 mg PO BEDTIME PRN PRN Reason: Anxiety Last Admin: 08/25/21 05:36 Dose: 25 mg Documented by: Lactated Ringer's (Lr) 1,000 mls @ 50 mls/hr IVCONT .Q20H [facility] Last Admin: 09/20/21 11:03 Dose: Not Given Documented by: Magnesium Hydroxide (Milk Of Magnesia 30 Ml Oral.Susp) 30 ml PO DAILY PRN PRN Reason: Constipation Last Admin: 09/09/21 20:35 Dose: 30 ml Documented by: Melatonin (Melatonin 3 Mg Tablet) 6 mg PO BEDTIME [facility] Last Admin: 09/19/21 20:30 Dose: 6 mg Documented by: Nortriptyline HCl (Nortriptyline Hcl 25 Mg Capsule) 75 mg PO BEDTIME [facility] Last Admin: 09/19/21 20:32 Dose: 75 mg Documented by: Olanzapine (Olanzapine 2.5 Mg Tablet) 1.25 mg PO DAILY PRN PRN Reason: Anxiety Last Admin: 09/16/21 08:45 Dose: 1.25 mg Documented by: Olanzapine (Olanzapine 7.5 Mg Tablet) 7.5 mg PO BEDTIME [facility] Last Admin: 09/19/21 20:29 Dose: 7.5 mg Documented by: Omeprazole (Omeprazole 20 Mg Isacc.) 20 mg PO DAILY@0630 [facility] Last Admin: 09/20/21 11:00 Dose: Not Given Documented by: Oxybutynin Chloride (Oxybutynin Chloride Er 5 Mg Tab.Er.24) 5 mg PO DAILY [facility] Last Admin: 09/20/21 11:04 Dose: 5 mg Documented by: Senna (Sennosides 8.6 Mg Tablet) 8.6 mg PO BEDTIME [facility] Last Admin: 09/19/21 20:30 Dose: 8.6 mg Documented by: Trazodone HCl (Trazodone Hcl 50 Mg Tablet) 50 mg PO BEDTIME PRN PRN Reason: insomnia Trazodone HCl (Trazodone Hcl 25 Mg Halftab) 75 mg PO BEDTIME [facility] Last Admin: 09/19/21 20:30 Dose: 75 mg Documented by: Vitamin D (Cholecalciferol (Vitamin D3) 10 Mcg Tablet) 10 mcg PO DAILY [facility] Last Admin: 09/20/21 11:04 Dose: 10 mcg Documented by: Allergies Allergies Allergy/AdvReac Type Severity Reaction Status Date / Time No Known Allergies Allergy Verified 01/25/21 06:43 [No Known Allergies*] Assessment & Plan Assessment & Plan (1) Major depressive disorder, recurrent, severe with psychotic features: Status: Acute Code(s): F33.3 - Major depressive disorder, recurrent, severe with psychotic symptoms Assessment and Plan: José Luis is a 76 year old male who carries a dx of MDD, recurrent, severe with hx of psychosis, catatonia. He is known to [facility] for similar presentation and has received ECT with good effect in the past. On admission, the case reviewed with Dr. Sims he did not feel there wass any different option at this time besides ECT. We did discussed other options such as TMS or ketamine. Case reviewed with patient's healthcare proxy she clearly feels that patient has responded well to ECT generally understands limited options at this time feels that patient was not able to make decision at that time The patient fell at 13:30 on Tuesday 08/28. There was no changes in his mental status but he had a laceration on his left eye. We ordered CT scan head and hospitalist consult that were normal. Since then, he was placed him on one-to-one but recently we change his level of observation Plan: 1. Continue Zyprexa 2. Continue ECT, now on maintenance every Thursday 3. Continue nortriptyline up to 75 mg p.o. q.h.s. 4. Pamelor level for September 22. 5. Consider discharge for early next week I spent minutes with the patient and/or on the patient floor today, greater than?50% of which was spent counseling/coordinating care. Reason for contiued inpatient stay Substantial Risk for: inability to function, rapid decompensation and med/psych decompensation
[2021-09-20] MEDS: traZODone HCL 25 MG HALFTAB 75 MG PO (20:01)
[2021-09-20] MEDS: Sennosides 8.6 MG TABLET PO (20:01)
[2021-09-20] MEDS: OLANZapine 7.5 MG TABLET PO (20:01)
[2021-09-20] MEDS: Atorvastatin Calcium 40 MG TABLET PO (20:01)
[2021-09-20] MEDS: Nortriptyline HCl 25 MG CAPSULE 75 MG PO (20:01)
[2021-09-20] MEDS: Melatonin 3 MG TABLET 6 MG PO (20:01)
[2021-09-21] MEDS: Omeprazole 20 MG CAPSULE.DR PO (06:43)
[2021-09-21 08:00] VITALS: BP 126/76; PULSE 99; RESP 16; TEMP 36.5; O2SAT 95
[2021-09-21] MEDS: Ferrous Sulfate 324 MG TABLET.DR PO (08:41)
[2021-09-21] MEDS: Cholecalciferol (Vitamin D3) 10 MCG TABLET PO (08:41)
[2021-09-21] MEDS: Docusate Sodium 100 MG CAPSULE PO ×2 (08:41→20:09)
[2021-09-21] MEDS: Apixaban 5 MG TABLET PO ×2 (08:42→20:09)
--- NOTE | 2021-09-21 08:43 | P.PNPSI_ITS ---
Subjective Subjective Date of Service: 09/21/21 Reason For Visit: Recurrent major depressive D/O Severe Subjective Notes: Conditional Voluntary Interim History: The nursing staff reports the patient has been pleasant and cooperative, he is in the common area watching TV and he half not have any problems with feeding. On interview, the patient denies new symptoms his affect is brighter. He will be discharged on Thursday and he will have ECT once a week as maintenance Mental Status Exam Mental Status Exam Patient Appearance: Well Grooomed Patient Orientation: Person Level of Consciousness: Awake Patient Behavior: Cooperative Mood Description: Withdrawn Affect Description: Constricted Patient Cognition Impaired: No Ability to Follow Directions: Good Speech Pattern: Clear Hallucinations: None Delusions: Not Present Thought Process: Linear Thought Content: positive for Circumstantial Judgement: Fair Diagnostics Vital Signs (24Hr): Vital Signs - 24 hr 09/20/21 09:51 09/20/21 09:56 09/20/21 10:01 Temperature 99.2 F Pulse Rate 105 H 106 H 112 H Respiratory Rate 16 19 19 Blood Pressure 142/83 H 142/83 H 124/82 Pulse Oximetry 98 98 98 09/20/21 10:06 09/20/21 10:21 09/20/21 10:36 Temperature 97.3 F Pulse Rate 121 H 112 H 100 Respiratory Rate 18 17 17 Blood Pressure 135/89 135/89 128/82 Pulse Oximetry 96 96 99 09/20/21 11:23 09/20/21 13:22 09/20/21 18:00 Temperature 97.6 F 98.4 F Pulse Rate 95 95 88 Respiratory Rate 14 19 Blood Pressure 130/65 130/65 104/57 L Pulse Oximetry 95 95 97 BMI result Body Mass Index 27.0 Labs Results: 08/25/21 22:04 09/10/21 07:22 Imaging Radiology Impressions: ITS Impressions Chest X-Ray 08/20/21 10:00 IMPRESSION: 1. Lungs grossly clear. No infiltrate or effusion. 2. Hiatal hernia, approximately [address] 08/28/21 15:52 IMPRESSION: No acute intracranial findings. Atrophy and nonspecific periventricular white matter disease similar to previous exams. Medications Medications Current Medications Acetaminophen (Acetaminophen 325 Mg Tablet) 650 mg PO Q6H PRN PRN Reason: Headache/Pain Mild Scale (1-3) Last Admin: 09/14/21 06:00 Dose: 650 mg Documented by: Al Hydroxide/Mg Hydroxide (Magnesium Hydrox/Alum Hydrox 30 Ml Oral.Susp) 30 ml PO Q6H PRN PRN Reason: Heartburn/Nausea Apixaban (Apixaban 5 Mg Tablet) 5 mg PO BID [facility] Last Admin: 09/20/21 20:01 Dose: 5 mg Documented by: Atorvastatin Calcium (Atorvastatin Calcium 40 Mg Tablet) 40 mg PO BEDTIME [facility] Last Admin: 09/20/21 20:01 Dose: 40 mg Documented by: Benzonatate (Benzonatate 100 Mg Capsule) 100 mg PO TID PRN PRN Reason: cough Docusate Sodium (Docusate Sodium 100 Mg Capsule) 100 mg PO BID [facility] Last Admin: 09/20/21 20:01 Dose: 100 mg Documented by: Erythromycin (Erythromycin Base 0.5% Oph Oin 1 Gm Tube) 1 cm EYE-BOTH BID [facility] Last Admin: 09/20/21 20:05 Dose: Not Given Documented by: Ferrous Sulfate (Ferrous Sulfate 324 Mg Tablet.) 324 mg PO DAILY [facility] Last Admin: 09/20/21 11:05 Dose: 324 mg Documented by: Hydroxyzine HCl (Hydroxyzine Hcl 25 Mg Tablet) 25 mg PO BEDTIME PRN PRN Reason: Anxiety Last Admin: 08/25/21 05:36 Dose: 25 mg Documented by: Magnesium Hydroxide (Milk Of Magnesia 30 Ml Oral.Susp) 30 ml PO DAILY PRN PRN Reason: Constipation Last Admin: 09/09/21 20:35 Dose: 30 ml Documented by: Melatonin (Melatonin 3 Mg Tablet) 6 mg PO BEDTIME [facility] Last Admin: 09/20/21 20:01 Dose: 6 mg Documented by: Nortriptyline HCl (Nortriptyline Hcl 25 Mg Capsule) 75 mg PO BEDTIME [facility] Last Admin: 09/20/21 20:01 Dose: 75 mg Documented by: Olanzapine (Olanzapine 2.5 Mg Tablet) 1.25 mg PO DAILY PRN PRN Reason: Anxiety Last Admin: 09/16/21 08:45 Dose: 1.25 mg Documented by: Olanzapine (Olanzapine 7.5 Mg Tablet) 7.5 mg PO BEDTIME [facility] Last Admin: 09/20/21 20:01 Dose: 7.5 mg Documented by: Omeprazole (Omeprazole 20 Mg Capsule.) 20 mg PO DAILY@0630 [facility] Last Admin: 09/21/21 06:43 Dose: 20 mg Documented by: Oxybutynin Chloride (Oxybutynin Chloride Er 5 Mg Tab.Er.24) 5 mg PO DAILY [facility] Last Admin: 09/20/21 11:04 Dose: 5 mg Documented by: Senna (Sennosides 8.6 Mg Tablet) 8.6 mg PO BEDTIME [facility] Last Admin: 09/20/21 20:01 Dose: 8.6 mg Documented by: Trazodone HCl (Trazodone Hcl 50 Mg Tablet) 50 mg PO BEDTIME PRN PRN Reason: insomnia Trazodone HCl (Trazodone Hcl 25 Mg Halftab) 75 mg PO BEDTIME [facility] Last Admin: 09/20/21 20:01 Dose: 75 mg Documented by: Vitamin D (Cholecalciferol (Vitamin D3) 10 Mcg Tablet) 10 mcg PO DAILY [facility] Last Admin: 09/20/21 11:04 Dose: 10 mcg Documented by: Allergies Allergies Allergy/AdvReac Type Severity Reaction Status Date / Time No Known Allergies Allergy Verified 01/25/21 06:43 [No Known Allergies*] Assessment & Plan Assessment & Plan (1) Major depressive disorder, recurrent, severe with psychotic features: Status: Acute Code(s): F33.3 - Major depressive disorder, recurrent, severe with psychotic symptoms Assessment and Plan: José Luis is a 76 year old male who carries a dx of MDD, recurrent, severe with hx of psychosis, catatonia. He is known to [facility] for similar presentation and has received ECT with good effect in the past. On admission, the case reviewed with Dr. Sims he did not feel there wass any different option at this time besides ECT. We did discussed other options such as TMS or ketamine. Case reviewed with patient's healthcare proxy she clearly feels that patient has responded well to ECT generally understands limited options at this time feels that patient was not able to make decision at that time The patient fell at 13:30 on Tuesday 08/28. There was no changes in his mental status but he had a laceration on his left eye. We ordered CT scan head and hospitalist consult that were normal. Since then, he was placed him on one-to-one but recently we change his level of observation sings there were no evidence of unstable gait Plan: 1. Continue Zyprexa 2. Continue ECT, now on maintenance every Thursday 3. Continue nortriptyline up to 75 mg p.o. q.h.s. 4. Pamelor level for September 22 before discharge 5. Consider discharge for next Thursday. I spent minutes with the patient and/or on the patient floor today, gre ater than?50% of which was spent counseling/coordinating care. Reason for contiued inpatient stay Substantial Risk for: inability to function, rapid decompensation and med/psych decompensation
[2021-09-21 18:00] VITALS: BP 120/69; PULSE 94; RESP 18; TEMP 37.1; O2SAT 94
[2021-09-21] MEDS: Nortriptyline HCl 25 MG CAPSULE 75 MG PO (20:09)
[2021-09-21] MEDS: traZODone HCL 25 MG HALFTAB 75 MG PO (20:09)
[2021-09-21] MEDS: Atorvastatin Calcium 40 MG TABLET PO (20:09)
[2021-09-21] MEDS: Sennosides 8.6 MG TABLET PO (20:09)
[2021-09-21] MEDS: OLANZapine 7.5 MG TABLET PO (20:09)
[2021-09-21] MEDS: Melatonin 3 MG TABLET 6 MG PO (20:09)
[2021-09-22 06:00] VITALS: BP 108/69; PULSE 101; RESP 16; TEMP 36.8; O2SAT 97
[2021-09-22] MEDS: Omeprazole 20 MG CAPSULE.DR PO (06:02)
[2021-09-22] MEDS: Ferrous Sulfate 324 MG TABLET.DR PO (07:55)
[2021-09-22] MEDS: Docusate Sodium 100 MG CAPSULE PO ×2 (07:55→21:37)
[2021-09-22] MEDS: Apixaban 5 MG TABLET PO ×2 (07:56→21:37)
[2021-09-22] MEDS: Cholecalciferol (Vitamin D3) 10 MCG TABLET PO (07:56)
--- NOTE | 2021-09-22 09:26 | P.PNPSI_ITS ---
Subjective Subjective Date of Service: 09/22/21 Reason For Visit: Recurrent major depressive D/O Severe Subjective Notes: Conditional Voluntary Interim History: The nursing staff reported the patient is doing very well, he is able to walk without the help of the merry walker. On interview, the patient denies new symptoms he is aware that he will have psychotherapy once a week as a maintenance treatment. Mental Status Exam Mental Status Exam Patient Appearance: Well Grooomed Patient Orientation: Person Level of Consciousness: Awake Patient Behavior: Cooperative Mood Description: Appropriate Affect Description: Constricted Patient Cognition Impaired: No Ability to Follow Directions: Good Speech Pattern: Clear Hallucinations: None Delusions: Not Present Thought Process: Linear Thought Content: positive for Circumstantial Depressive Symptoms: Loss of Energy Judgement: Fair Diagnostics Vital Signs (24Hr): Vital Signs - 24 hr 09/21/21 18:00 09/22/21 06:00 Temperature 98.7 F 98.2 F Pulse Rate 94 101 H Respiratory Rate 18 16 Blood Pressure 120/69 108/69 Pulse Oximetry 94 97 BMI result Body Mass Index 27.0 Labs Results: 08/25/21 22:04 09/10/21 07:22 Imaging Radiology Impressions: ITS Impressions Chest X-Ray 08/20/21 10:00 IMPRESSION: 1. Lungs grossly clear. No infiltrate or effusion. 2. Hiatal hernia, approximately [address] 08/28/21 15:52 IMPRESSION: No acute intracranial findings. Atrophy and nonspecific periventricular white matter disease similar to previous exams. Medications Medications Current Medications Acetaminophen (Acetaminophen 325 Mg Tablet) 650 mg PO Q6H PRN PRN Reason: Headache/Pain Mild Scale (1-3) Last Admin: 09/14/21 06:00 Dose: 650 mg Documented by: Al Hydroxide/Mg Hydroxide (Magnesium Hydrox/Alum Hydrox 30 Ml Oral.Susp) 30 ml PO Q6H PRN PRN Reason: Heartburn/Nausea Apixaban (Apixaban 5 Mg Tablet) 5 mg PO BID [facility] Last Admin: 09/22/21 07:56 Dose: 5 mg Documented by: Atorvastatin Calcium (Atorvastatin Calcium 40 Mg Tablet) 40 mg PO BEDTIME [facility] Last Admin: 09/21/21 20:09 Dose: 40 mg Documented by: Benzonatate (Benzonatate 100 Mg Capsule) 100 mg PO TID PRN PRN Reason: cough Docusate Sodium (Docusate Sodium 100 Mg Capsule) 100 mg PO BID [facility] Last Admin: 09/22/21 07:55 Dose: 100 mg Documented by: Erythromycin (Erythromycin Base 0.5% Oph Oin 1 Gm Tube) 1 cm EYE-BOTH BID [facility] Last Admin: 09/22/21 07:57 Dose: Not Given Documented by: Ferrous Sulfate (Ferrous Sulfate 324 Mg Tablet.) 324 mg PO DAILY [facility] Last Admin: 09/22/21 07:55 Dose: 324 mg Documented by: Hydroxyzine HCl (Hydroxyzine Hcl 25 Mg Tablet) 25 mg PO BEDTIME PRN PRN Reason: Anxiety Last Admin: 08/25/21 05:36 Dose: 25 mg Documented by: Magnesium Hydroxide (Milk Of Magnesia 30 Ml Oral.Susp) 30 ml PO DAILY PRN PRN Reason: Constipation Last Admin: 09/09/21 20:35 Dose: 30 ml Documented by: Melatonin (Melatonin 3 Mg Tablet) 6 mg PO BEDTIME [facility] Last Admin: 09/21/21 20:09 Dose: 6 mg Documented by: Nortriptyline HCl (Nortriptyline Hcl 25 Mg Capsule) 75 mg PO BEDTIME [facility] Last Admin: 09/21/21 20:09 Dose: 75 mg Documented by: Olanzapine (Olanzapine 2.5 Mg Tablet) 1.25 mg PO DAILY PRN PRN Reason: Anxiety Last Admin: 09/16/21 08:45 Dose: 1.25 mg Documented by: Olanzapine (Olanzapine 7.5 Mg Tablet) 7.5 mg PO BEDTIME [facility] Last Admin: 09/21/21 20:09 Dose: 7.5 mg Documented by: Omeprazole (Omeprazole 20 Mg Capsule.) 20 mg PO DAILY@0630 [facility] Last Admin: 09/22/21 06:02 Dose: 20 mg Documented by: Oxybutynin Chloride (Oxybutynin Chloride Er 5 Mg Tab.Er.24) 5 mg PO DAILY [facility] Last Admin: 09/22/21 07:55 Dose: 5 mg Documented by: Senna (Sennosides 8.6 Mg Tablet) 8.6 mg PO BEDTIME [facility] Last Admin: 09/21/21 20:09 Dose: 8.6 mg Documented by: Trazodone HCl (Trazodone Hcl 50 Mg Tablet) 50 mg PO BEDTIME PRN PRN Reason: insomnia Trazodone HCl (Trazodone Hcl 25 Mg Halftab) 75 mg PO BEDTIME [facility] Last Admin: 09/21/21 20:09 Dose: 75 mg Documented by: Vitamin D (Cholecalciferol (Vitamin D3) 10 Mcg Tablet) 10 mcg PO DAILY [facility] Last Admin: 09/22/21 07:56 Dose: 10 mcg Documented by: Allergies Allergies Allergy/AdvReac Type Severity Reaction Status Date / Time No Known Allergies Allergy Verified 01/25/21 06:43 [No Known Allergies*] Assessment & Plan Assessment & Plan (1) Major depressive disorder, recurrent, severe with psychotic features: Status: Acute Code(s): F33.3 - Major depressive disorder, recurrent, severe with psychotic symptoms Assessment and Plan: José Luis is a 76 year old male who carries a dx of MDD, recurrent, severe with hx of psychosis, catatonia. He is known to [facility] for similar presentation and has received ECT with good effect in the past. On admission, the case reviewed with Dr. Sims he did not feel there wass any different option at this time besides ECT. We did discussed other options such as TMS or ketamine. Case reviewed with patient's healthcare proxy she clearly feels that patient has responded well to ECT generally understands limited options at this time feels that patient was not able to make decision at that time The patient fell at 13:30 on Tuesday 08/28. There was no changes in his mental status but he had a laceration on his left eye. We ordered CT scan head and hospitalist consult that were normal. Since then, he was placed him on one-to-one but recently we change his level of observation sings there were no e vidence of unstable gait Plan: 1. Continue Zyprexa 2. Continue ECT, now on maintenance every Thursday 3. Continue nortriptyline up to 75 mg p.o. q.h.s. 4. Pamelor level for September 22 before discharge , to be followed as an outpatient. 5. Consider discharge for next Thursday. I spent minutes with the patient and/or on the patient floor today, greater than?50% of which was spent counseling/coordinating care. Reason for contiued inpatient stay Substantial Risk for: inability to function, rapid decompensation and med/psych decompensation
--- NOTE | 2021-09-22 09:28 | P.DS_ITS ---
DS: Providers Provider Date of Service: 09/24/21 Date of admission: 08/19/21 17:22 Date of discharge: 09/24/21 Primary care physician: Unknown Physician DS: Diagnosis Discharge Diagnosis (1) Major depressive disorder, recurrent, severe with psychotic features: Status: Acute DS: Medications Discharge Medications Home Medications: Home Medications Medication Instructions Recorded Confirmed benztropine 1 mg tablet 1 tab PO BID 08/18/21 08/18/21 fluoxetine 10 mg capsule 1 cap PO DAILY 08/18/21 08/18/21 olanzapine 10 mg tablet 5 mg PO BEDTIME 08/18/21 08/18/21 olanzapine 2.5 mg tablet 0.5 tab PO DAILY PRN 08/18/21 08/18/21 omeprazole 20 mg capsule,delayed 1 cap PO DAILY 08/18/21 08/18/21 release propranolol 10 mg tablet 1 tab PO TID PRN 08/18/21 08/18/21 trazodone 50 mg tablet 50 mg PO BEDTIME 08/18/21 08/18/21 Previous Rx's Medication Instructions Recorded benzonatate 100 mg capsule 100 mg PO TID PRN #30 cap 07/28/21 (Tessalon Perles) apixaban 5 mg tablet (Eliquis) 5 mg PO BID #60 tab 09/20/21 atorvastatin 40 mg tablet 1 tab PO BEDTIME 30 Days #30 tab 09/20/21 benzonatate 100 mg capsule 100 mg PO TID PRN 30 Days #60 cap 09/20/21 cholecalciferol (vitamin D3) 10 10 mcg PO DAILY 30 Days #30 tab 09/20/21 mcg (400 unit) tablet (Vitamin D3) docusate sodium 100 mg capsule 100 mg PO BID 60 Days #120 cap 09/20/21 (Colace) erythromycin 5 mg/gram (0.5 %) eye 1 cm OPHTHALMIC (EYE) BID 30 Days 09/20/21 ointment #1 g ferrous sulfate 325 mg (65 mg 325 mg PO DAILY 30 Days #30 tab 09/20/21 iron) tablet finasteride 5 mg tablet 1 tab PO DAILY 30 Days #30 tab 09/20/21 melatonin 3 mg tablet 6 mg PO BEDTIME 30 Days #60 tab 09/20/21 nortriptyline 25 mg capsule 75 mg PO BEDTIME 30 Days #90 cap 09/20/21 olanzapine 7.5 mg tablet 7.5 mg PO BEDTIME 30 Days #30 tab 09/20/21 omeprazole 20 mg capsule,delayed 20 mg PO DAILY@0630 30 Days #30 cap 09/20/21 release oxybutynin chloride 5 mg tablet 5 mg PO DAILY 30 Days #30 tab 09/20/21 sennosides 8.6 mg tablet (Senna 8.6 mg PO BEDTIME 30 Days #30 tab 09/20/21 Lax) Mental Status Exam Mental Status Exam Patient Appearance: Well Grooomed Patient Orientation: Person Level of Consciousness: Awake Patient Behavior: Appropriate Mood Description: Calm Affect Description: Constricted Patient Cognition Impaired: No Ability to Follow Directions: Good Speech Pattern: Clear Hallucinations: None Delusions: Not Present Thought Process: Linear Thought Content: positive for Circumstantial Judgement: Fair Data Data Completed and Pending Completed studies during hospitalization [Text1]: 09/10/21 09/20/21 07:22 14:49 Nortriptyline 34 L Pending Imaging Diagnostic Imaging Impressions Chest X-Ray 08/20/21 10:00 IMPRESSION: 1. Lungs grossly clear. No infiltrate or effusion. 2. Hiatal hernia, approximately [address] 08/28/21 15:52 IMPRESSION: No acute intracranial findings. Atrophy and nonspecific periventricular white matter disease similar to previous exams. DS: Summary Hospital Course Hospital Course: The patient is very well known by the service could since he had been admitted into the hospital several times. He carries a diagnosis of major depressive disorder recurrent episode severe with psychotic features. Please see the HPI of the admission note for further details. On admission, we discussed the case with his outpatient provider and Dr. Castañeda and we decided to titrate Zyprexa up to 7.5 mg p.o. q.h.s. to target psychotic symptoms and start nortriptyline as an antidepressant. Also, we started ECT back again with the consent of the affirmed healthcare proxy. The patient was initially with severe lack of energy, nearly catatonic. With the interventions described above, his mood improved, he was able to speak spontaneously, feed himself and have meaningful conversations with staff and peers. As per the report of staff who knows the patient for years, his affect has improved with the current treatment. Since there were no safety concerns discharge planning was discussed with maintenance ECT and continuation of medication treatment. Status at Discharge Cognitive/behavioral status at discharge: at baseline Functional status at discharge: uses cane/walker Overall status at discharge: patient is back to baseline Time Spent with Patient Time attestation: Total time spent providing and/or coordinating discharge services: Time spent: Less than 30 minutes Discharge Plan Discharge Patient Disposition: Xfer [facility] Discharge Diagnosis: major depressive disorder recurrent episode severe with psychotic symptoms Referrals: Dr Sims [Other] - 10/03/21 2:00 pm (Your next appointment with Dr Sims is in person on 10/03/21 at 2pm. ) [facility] [Other] - 09/24/21 (Discharge to Assisted Living setting. ) Physician,Unknown J [Primary Care Provider] - 1 Week Discharge Medications: New sennosides [Senna Lax] 8.6 mg Tablet 8.6 mg PO BEDTIME 30 Days Qty: 30 RF: 0 melatonin 3 mg Tablet 6 mg PO BEDTIME 30 Days Qty: 60 RF: 0 olanzapine 7.5 mg Tablet 7.5 mg PO BEDTIME 30 Days Qty: 30 RF: 0 nortriptyline 25 mg Capsule 75 mg PO BEDTIME 30 Days Qty: 90 RF: 0 benzonatate 100 mg Capsule 100 mg PO TID PRN (Reason: cough) 30 Days Qty: 60 RF: 0 erythromycin 5 mg/gram (0.5 %) Ointment 1 cm ophthalmic (eye) BID 30 Days Qty: 1 RF: 0 omeprazole 20 mg Capsule,Delayed Release(Dr/Ec) 20 mg PO DAILY@0630 30 Days Qty: 30 RF: 0 cholecalciferol (vitamin D3) [Vitamin D3] 10 mcg (400 unit) Tablet 10 mcg PO DAILY 30 Days Qty: 30 RF: 0 Continued atorvastatin 40 mg tablet 1 tab PO BEDTIME 30 Days Qty: 30 RF: 0 ferrous sulfate 325 mg (65 mg iron) Tablet 325 mg PO DAILY 30 Days Qty: 30 RF: 0 docusate sodium [Colace] 100 mg Capsule 100 mg PO BID 60 Days Qty: 120 RF: 0 oxybutynin chloride 5 mg tablet 5 mg PO DAILY 30 Days Qty: 30 RF: 0 finasteride 5 mg tablet 1 tab PO DAILY 30 Days Qty: 30 RF: 0 Eliquis 5 mg tablet 5 mg PO BID Qty: 60 RF: 0 Discontinued benzonatate [Tessalon Perles] 100 mg capsule 100 mg PO TID PRN (Reason: cough) Qty: 30 RF: 0 trazodone 50 mg tablet 50 mg PO BEDTIME RF: 0 olanzapine 10 mg tablet 5 mg PO BEDTIME RF: 0 benztropine 1 mg tablet 1 tab PO BID RF: 0 fluoxetine 10 mg capsule 1 cap PO DAILY RF: 0 omeprazole 20 mg capsule,delayed release(DR/EC) 1 cap PO DAILY RF: 0 propranolol 10 mg tablet 1 tab PO TID PRN (Reason: Anxiety) RF: 0 olanzapine 2.5 mg tablet 0.5 tab PO DAILY PRN (Reason: Anxiety) RF: 0 Discharge Orders: Discharge Order (Routine); Ordered 09/24/21 Ordered By: Tate Amaya Diet: advance to usual diet Activity on Discharge: As tolerated Stand Alone Forms: Patient Portal Discharge page Care Plan Goals: care plan goals achieved and the present admission Health Concerns: continue treatment as an outpatient with his primary care physician Plan of Treatment: continue ECT every Thursday as maintenance. Continue medication management with Dr. Sims Assessment: elderly male with a long history of major depressive disorder recurrent episode severe with psychotic features that responded fairly well to ECT and nortriptyline. At this moment he is safe in the community and he is able to continue treatment as an outpatient
[2021-09-22 21:31] VITALS: BP 109/63; PULSE 89; RESP 16; TEMP 36.6; O2SAT 95
[2021-09-22] MEDS: traZODone HCL 25 MG HALFTAB 75 MG PO (21:36)
[2021-09-22] MEDS: OLANZapine 7.5 MG TABLET PO (21:37)
[2021-09-22] MEDS: Melatonin 3 MG TABLET 6 MG PO (21:37)
[2021-09-22] MEDS: Sennosides 8.6 MG TABLET PO (21:37)
[2021-09-22] MEDS: Atorvastatin Calcium 40 MG TABLET PO (21:37)
[2021-09-22] MEDS: Nortriptyline HCl 25 MG CAPSULE 75 MG PO (21:37)
[2021-09-23] MEDS: Omeprazole 20 MG CAPSULE.DR PO (06:11)
[2021-09-23 08:00] VITALS: BP 104/52; PULSE 83; RESP 16; TEMP 36.8; O2SAT 94
[2021-09-23] MEDS: Cholecalciferol (Vitamin D3) 10 MCG TABLET PO (08:05)
[2021-09-23] MEDS: Docusate Sodium 100 MG CAPSULE PO ×2 (08:05→21:44)
[2021-09-23] MEDS: Ferrous Sulfate 324 MG TABLET.DR PO (08:06)
[2021-09-23] MEDS: Apixaban 5 MG TABLET PO ×2 (08:06→21:45)
--- NOTE | 2021-09-23 10:11 | P.PNPSI_ITS ---
Subjective Subjective Date of Service: 09/23/21 Reason For Visit: Recurrent major depressive D/O Severe Subjective Notes: Conditional Voluntary Healthcare Proxy: Yes Interim History: Patient with much crowley affect future oriented seems stable for discharge tomorrow agreeable to outpatient ECT Not psychotic pleasant future oriented Medication Compliance: Yes Mental Status Exam Mental Status Exam Patient Appearance: Well Grooomed Patient Orientation: Person Level of Consciousness: Awake Patient Behavior: Appropriate Mood Description: Calm Affect Description: Constricted Patient Cognition Impaired: No Ability to Follow Directions: Good Speech Pattern: Clear Hallucinations: None Delusions: Not Present Thought Process: Linear Thought Content: positive for Circumstantial Judgement and Insight: Much improved judgment and insight Diagnostics Vital Signs (24Hr): Vital Signs - 24 hr 09/22/21 21:31 09/23/21 08:00 Temperature 98 F 98.2 F Pulse Rate 89 83 Respiratory Rate 16 16 Blood Pressure 109/63 104/52 L Pulse Oximetry 95 94 BMI result Body Mass Index 27.0 Labs Results: 08/25/21 22:04 09/10/21 07:22 Imaging Radiology Impressions: ITS Impressions Chest X-Ray 08/20/21 10:00 IMPRESSION: 1. Lungs grossly clear. No infiltrate or effusion. 2. Hiatal hernia, approximately [address] 08/28/21 15:52 IMPRESSION: No acute intracranial findings. Atrophy and nonspecific periventricular white matter disease similar to previous exams. Medications Medications Current Medications Acetaminophen (Acetaminophen 325 Mg Tablet) 650 mg PO Q6H PRN PRN Reason: Headache/Pain Mild Scale (1-3) Last Admin: 09/14/21 06:00 Dose: 650 mg Documented by: Al Hydroxide/Mg Hydroxide (Magnesium Hydrox/Alum Hydrox 30 Ml Oral.Susp) 30 ml PO Q6H PRN PRN Reason: Heartburn/Nausea Apixaban (Apixaban 5 Mg Tablet) 5 mg PO BID [facility] Last Admin: 09/23/21 08:06 Dose: 5 mg Documented by: Atorvastatin Calcium (Atorvastatin Calcium 40 Mg Tablet) 40 mg PO BEDTIME [facility] Last Admin: 09/22/21 21:37 Dose: 40 mg Documented by: Benzonatate (Benzonatate 100 Mg Capsule) 100 mg PO TID PRN PRN Reason: cough Docusate Sodium (Docusate Sodium 100 Mg Capsule) 100 mg PO BID [facility] Last Admin: 09/23/21 08:05 Dose: 100 mg Documented by: Erythromycin (Erythromycin Base 0.5% Oph Oin 1 Gm Tube) 1 cm EYE-BOTH BID [facility] Last Admin: 09/23/21 08:09 Dose: Not Given Documented by: Ferrous Sulfate (Ferrous Sulfate 324 Mg Tablet.) 324 mg PO DAILY [facility] Last Admin: 09/23/21 08:06 Dose: 324 mg Documented by: Hydroxyzine HCl (Hydroxyzine Hcl 25 Mg Tablet) 25 mg PO BEDTIME PRN PRN Reason: Anxiety Last Admin: 08/25/21 05:36 Dose: 25 mg Documented by: Magnesium Hydroxide (Milk Of Magnesia 30 Ml Oral.Susp) 30 ml PO DAILY PRN PRN Reason: Constipation Last Admin: 09/09/21 20:35 Dose: 30 ml Documented by: Melatonin (Melatonin 3 Mg Tablet) 6 mg PO BEDTIME [facility] Last Admin: 09/22/21 21:37 Dose: 6 mg Documented by: Nortriptyline HCl (Nortriptyline Hcl 25 Mg Capsule) 75 mg PO BEDTIME [facility] Last Admin: 09/22/21 21:37 Dose: 75 mg Documented by: Olanzapine (Olanzapine 2.5 Mg Tablet) 1.25 mg PO DAILY PRN PRN Reason: Anxiety Last Admin: 09/16/21 08:45 Dose: 1.25 mg Documented by: Olanzapine (Olanzapine 7.5 Mg Tablet) 7.5 mg PO BEDTIME [facility] Last Admin: 09/22/21 21:37 Dose: 7.5 mg Documented by: Omeprazole (Omeprazole 20 Mg Capsule.) 20 mg PO DAILY@0630 [facility] Last Admin: 09/23/21 06:11 Dose: 20 mg Documented by: Oxybutynin Chloride (Oxybutynin Chloride Er 5 Mg Tab.Er.24) 5 mg PO DAILY [facility] Last Admin: 09/23/21 08:05 Dose: 5 mg Documented by: Senna (Sennosides 8.6 Mg Tablet) 8.6 mg PO BEDTIME [facility] Last Admin: 09/22/21 21:37 Dose: 8.6 mg Documented by: Trazodone HCl (Trazodone Hcl 50 Mg Tablet) 50 mg PO BEDTIME PRN PRN Reason: insomnia Trazodone HCl (Trazodone Hcl 25 Mg Halftab) 75 mg PO BEDTIME [facility] Last Admin: 09/22/21 21:36 Dose: 75 mg Documented by: Vitamin D (Cholecalciferol (Vitamin D3) 10 Mcg Tablet) 10 mcg PO DAILY [facility] Last Admin: 09/23/21 08:05 Dose: 10 mcg Documented by: Allergies Allergies Allergy/AdvReac Type Severity Reaction Status Date / Time No Known Allergies Allergy Verified 01/25/21 06:43 [No Known Allergies*] Assessment & Plan Assessment & Plan (1) Major depressive disorder, recurrent, severe with psychotic features: Status: Acute Code(s): F33.3 - Major depressive disorder, recurrent, severe with psychotic symptoms Assessment and Plan: José Luis is a 76 year old male who carries a dx of MDD, recurrent, severe with hx of psychosis, catatonia. He is known to [facility] for similar presentation and has received ECT with good effect in the past. On admission, the case reviewed with Dr. Sims he did not feel there wass any different option at this time besides ECT. We did discussed other options such as TMS or ketamine. Case reviewed with patient's healthcare proxy she clearly feels that patient has responded well to ECT generally understands limited options at this time feels that patient was not able to make decision at that time The patient fell at 13:30 on Tuesday 08/28. There was no changes in his mental status but he had a laceration on his left eye. We ordered CT scan head and hospitalist consult that were normal. Since then, he was placed him on one-to-one but recently we change his level of observation sings there were no evidence of unstable gait Plan: 1. Continue Zyprexa 2. Continue ECT, now on maintenance every Thursday 3. Continue nortriptyline up to 75 mg p.o. q.h.s. 4. Pamelor level for September 22 before discharge , to be followed as an outpatient. 5. Consider discharge for next Thursday. Continue above plan discharge tomorrow I spent _30 minutes with the patient and/or on the patient floor today, greater than?50% of which was spent counseling/coordinating care. Reason for contiued inpatient stay Substantial Risk for: inability to function, rapid decompensation and med/psych decompensation
[2021-09-23 14:29] LABS: COVID-19 Test Negative (Negative)
[2021-09-23 21:30] VITALS: BP 100/55; PULSE 85; RESP 18; TEMP 36.8; O2SAT 95
[2021-09-23] MEDS: Nortriptyline HCl 25 MG CAPSULE 75 MG PO (21:44)
[2021-09-23] MEDS: traZODone HCL 25 MG HALFTAB 75 MG PO (21:44)
[2021-09-23] MEDS: Sennosides 8.6 MG TABLET PO (21:45)
[2021-09-23] MEDS: Melatonin 3 MG TABLET 6 MG PO (21:45)
[2021-09-23] MEDS: Atorvastatin Calcium 40 MG TABLET PO (21:45)
[2021-09-23] MEDS: OLANZapine 7.5 MG TABLET PO (21:45)
[2021-09-24 06:00] VITALS: BP 121/58; PULSE 82; TEMP 35.9; O2SAT 97
[2021-09-24] MEDS: Omeprazole 20 MG CAPSULE.DR PO (06:37)
[2021-09-24] MEDS: Cholecalciferol (Vitamin D3) 10 MCG TABLET PO (08:26)
[2021-09-24] MEDS: Docusate Sodium 100 MG CAPSULE PO (08:26)
[2021-09-24] MEDS: Ferrous Sulfate 324 MG TABLET.DR PO (08:26)
[2021-09-24] MEDS: Apixaban 5 MG TABLET PO (08:26)
[2021-09-24 17:50] LABS: Nortriptyline 54 mcg/L (50-150)
== END 2021-09-24 11:23 | DRG 885 ==
LOC: HO.ED 08-19 15:00 → HO.PM5 08-19 17:32 → HO.PGERI 08-21 12:41
PROVIDERS: Clinical Nurse Specialist Psychiatric/Mental Health, Adult; Physician Assistant; Psychiatry & Neurology Psychiatry; Student in an Organized Health Care Education/Training Program; Admitting Provider Psychiatry & Neurology Psychiatry; Emergency Provider Internal Medicine; Visit Provider Psychiatry & Neurology Psychiatry
PROC: GZB4ZZZ Other Electroconvulsive Therapy (ICD-10-PCS; CPT 90870; principal; 2021-08-28 07:30)
DX: F33.3 Major depressive disorder, recurrent, severe with psychotic symptoms (principal); F03.90 Unspecified dementia, unspecified severity, without behavioral disturbance, psychotic disturbance, mood disturbance, and anxiety; K21.9 Gastro-esophageal reflux disease without esophagitis; E78.5 Hyperlipidemia, unspecified; I10 Essential (primary) hypertension; Z20.822 Contact with and (suspected) exposure to COVID-19; Z79.01 Long term (current) use of anticoagulants; Z79.899 Other long term (current) drug therapy
CPT/HCPCS: 36415; 70450; 71045; 80048; 80053; 80061; 80076; 80307; 80335; 81003; 82077; 82306; 82607; 82746; 83036; 84443; 85025; 85027; 87635; 90870; 92610; 93005; 97161; 97162; 99285; J0330; J2060; J2250; J2405

== ENCOUNTER 2021-09-25 05:58 | Day surgery (SDC) | payer MEDICARE, OTHER, SELFPAY ==
[2021-09-25 06:30] LABS: COVID-19 Test Negative (Negative)
[2021-09-25 06:57] VITALS: BP 135/82; PULSE 117; RESP 20; TEMP 37.1; O2SAT 95; BMI 25.7
--- NOTE | 2021-09-25 07:01 | HO.ANESPROP2 ---
[facility] Active Problems Active Problems: All Active Problems (Updated 08/21/21 @ 09:05 by Leila Bryson APRN) Major depressive disorder, recurrent, severe with psychotic features (Acute) Depression (Acute) Physical deconditioning (Acute) Preoperative cardiovascular examination (Acute) Anemia (Acute) GERD (gastroesophageal reflux disease) (Acute) Past Medical History Medical History COVID-19 vaccine administered Dementia Depression Diverticulitis of colon with perforation GERD (gastroesophageal reflux disease) History of electroconvulsive therapy HTN (hypertension) Hyperlipidemia Major depressive disorder, recurrent, severe with psychotic features Pulmonary embolism SVT (supraventricular tachycardia) Family History Family History Brother Blood clot in vein Other No history of cardiac disorder Family history of problems with anesthesia: No Surgical History Surgical History H/O colonoscopy H/O hernia repair History of colostomy reversal History of esophagogastroduodenoscopy (EGD) Status post Paula's procedure History of Problems with Anesthesia: No Social History Social History Household Members: Other Housing: Assisted Living Facility Are you a primary acute care physical therapist to a significant other at home: No Do you presently have visiting nurse or other home services: No Alcohol intake: former Patient Tobacco Use Status: Never used Tobacco Second Hand Smoke Exposure: No Advance Directives: No Advance Directives Information Provided: Yes Advance Directives Date on File: 07/27/20 service: Yes Current occupational status: retired Sexual orientation: Straight/Heterosexual Meds Allergies Allergy/AdvReac Type Severity Reaction Status Date / Time No Known Allergies Allergy Verified 01/25/21 06:43 [No Known Allergies*] Active Medications: Current Medications Lactated Ringer's (Lr) 1,000 mls @ 50 mls/hr IVCONT .Q20H [facility] Exam Exam Date and Time: September 25, 2021 0701 Height,Weight and Vital Signs: Height 5 ft 11 in Weight 83.915 kg Last Vital Signs Temp 98.7 F 09/25/21 06:57 Pulse 117 H 09/25/21 06:57 Resp 20 09/25/21 06:57 BP 135/82 09/25/21 06:57 Pulse Ox 95 09/25/21 06:57 Pertinent Lab Results Pertinent Lab Results: Laboratory Tests 09/25/21 06:00 COVID-19 ([facility]) Negative COVID-19 Clin Com See Note Airway Mallampati Class: II TM Dist: >3cm Neck ROM: Full Denture: Upper Heart: rrr Lungs: cta Assessment and Plan Assessment Anesthesia Assessment: Anesthesia Plan Discussed and Chart Reviewed Final Anesthetic Review Family History of Problems with Anesthesia: No History of Problems with Anesthesia: No NPO: Yes ASA Class: III Final Preanesthetic Review: No Changes in Pt Med Stat, Meds/Allgs Chart Reviewed and Consent Obtained/Reviewed Patient Risk: Intermediate Procedure Risk: Intermediate Anesthetic Plan Anesthetic Plan: GA Disposition: Standard PACU
--- NOTE | 2021-09-25 07:28 | MHC.SHP ---
Pre-Procedural Eval Section A Date of Service: 09/25/21 The patient is an INPATIENT: No Changes since office visit: Yes Changes in Medication and Yes Patient answered all questions; No Cold of Flu in the past 2 weeks and No New Medical Problems The History & Physical has been completed within 30 days and I have reviewed it.: Yes Section B Chief Complaint: depression Allergies: Allergies Allergy/AdvReac Type Severity Reaction Status Date / Time No Known Allergies Allergy Verified 01/25/21 06:43 [No Known Allergies*] Plan I have reviewed the history and physical and performed a pertinent physical examination on my patient. No changes have occurred unless specified.
--- NOTE | 2021-09-25 07:29 | P.PCN_ITS ---
ECT Procedure Note Diagnosis/Treatment Date of Service: 09/25/21 Diagnosis: Major Depressive Disorder and Catatonia Previous ECT Date: 09/20/21 Current Treatment Number: 10 Treatment: Maintenance (10/14) Interval Clinical Notes: pt doing quite well back at [facility] ECT Settings Device: THYMATRON DGx Electrode Placement: Right Unilateral Program/Pulse Width: 0.50 Energy Percent: 100 Seizure Duration By EEG (in seconds): 36 Medications Administration General Anesthetic: Etomidate (12) Muscle Relaxant: Succinylcholine (100) Ancillary Medications Anti-emetics: Zofran - Pre ECT Cardiovascular Medications: Esmolol (5 mg post sec tachycardia ) Miscillaneous Medications: Propofol and Midazolam Airway Management Airway Management: Bag Mask Ventilation Treatment Recommendations No Changes Recommended: No change Notes: f/u 1 week Pt Tolerated Procedure w/o Issue: Yes
[2021-09-25 07:49] VITALS: BP 129/80; PULSE 100; RESP 14; TEMP 37.1; O2SAT 98
[2021-09-25 07:54] VITALS: BP 140/91; PULSE 110; RESP 14; O2SAT 96
[2021-09-25 08:00] VITALS: BP 135/87; PULSE 116; RESP 16; O2SAT 96
[2021-09-25 08:04] VITALS: BP 139/88; PULSE 115; RESP 20; O2SAT 93
[2021-09-25 08:20] VITALS: BP 138/85; PULSE 102; RESP 20; O2SAT 95
== END 2021-09-25 08:43 | disposition home or self-care (01) ==
PROVIDERS: Visit Provider Psychiatry & Neurology Psychiatry
PROC: (CPT 90870; principal; 2021-09-25 07:30)
DX: F33.3 Major depressive disorder, recurrent, severe with psychotic symptoms (principal); F03.90 Unspecified dementia, unspecified severity, without behavioral disturbance, psychotic disturbance, mood disturbance, and anxiety; I10 Essential (primary) hypertension; E78.5 Hyperlipidemia, unspecified; Z79.899 Other long term (current) drug therapy; Z20.822 Contact with and (suspected) exposure to COVID-19
CPT/HCPCS: 36415; 87635; 90870; J0330; J2250; J2405

== ENCOUNTER 2021-10-02 06:38 | Day surgery (SDC) | payer MEDICARE, OTHER, SELFPAY ==
[2021-10-02] VITALS (7 sets, daily range): BP systolic 109–142; BP diastolic 63–111; PULSE 93–110; RESP 12–20; TEMP 36.4–36.9; O2SAT 94–100; BMI 26.4
[2021-10-02 07:03] LABS: COVID-19 Test Negative (Negative)
--- NOTE | 2021-10-02 07:59 | MHC.SHP ---
Pre-Procedural Eval Section A Date of Service: 10/02/21 The patient is an INPATIENT: No Changes since office visit: Yes Patient answered all questions; No Cold of Flu in the past 2 weeks, No New Medical Problems and No Changes in Medication The History & Physical has been completed within 30 days and I have reviewed it.: Yes Section B Chief Complaint: depression Allergies: Allergies Allergy/AdvReac Type Severity Reaction Status Date / Time No Known Allergies Allergy Verified 01/25/21 06:43 [No Known Allergies*] Plan I have reviewed the history and physical and performed a pertinent physical examination on my patient. No changes have occurred unless specified.
--- NOTE | 2021-10-02 08:00 | HO.ECTPROC ---
ECT Procedure Note Diagnosis/Treatment Date of Service: 10/02/21 Diagnosis: Major Depressive Disorder and Catatonia Previous ECT Date: 09/25/21 Current Treatment Number: 11 (11/15) Treatment: Maintenance Interval Clinical Notes: transition to maintenance has gone well ECT Settings Device: THYMATRON DGx Electrode Placement: Right Unilateral Program/Pulse Width: 0.50 Energy Percent: 100 Seizure Duration By EEG (in seconds): 44 Medications Administration General Anesthetic: Etomidate (12) Muscle Relaxant: Succinylcholine (100) Ancillary Medications Cardiovascular Medications: Esmolol (5 plus 5 post) Airway Management Airway Management: Bag Mask Ventilation Treatment Recommendations No Changes Recommended: No change Notes: transition to 2 weeks Pt Tolerated Procedure w/o Issue: Yes
--- NOTE | 2021-10-02 08:44 | P.CONAN_ITS ---
HPI - Anesthesia Eval Consult details Narrative: 76 yo male patient for ECT [facility] Active Problems Active Problems: All Active Problems (Updated 08/21/21 @ 09:05 by Leila Bryson APRN) Major depressive disorder, recurrent, severe with psychotic features (Acute) Depression (Acute) Physical deconditioning (Acute) Preoperative cardiovascular examination (Acute) Anemia (Acute) GERD (gastroesophageal reflux disease) (Acute) Past Medical History Medical History COVID-19 vaccine administered Dementia Depression Diverticulitis of colon with perforation GERD (gastroesophageal reflux disease) History of electroconvulsive therapy HTN (hypertension) Hyperlipidemia Major depressive disorder, recurrent, severe with psychotic features Pulmonary embolism SVT (supraventricular tachycardia) Family History Family History Brother Blood clot in vein Other No history of cardiac disorder Family history of problems with anesthesia: No Surgical History Surgical History H/O colonoscopy H/O hernia repair History of colostomy reversal History of esophagogastroduodenoscopy (EGD) Status post Paula's procedure History of Problems with Anesthesia: No Social History Social History Household Members: Other Housing: Assisted Living Facility Are you a primary anesthesiologist and critical care to a significant other at home: No Do you presently have visiting nurse or other home services: No Alcohol intake: former Patient Tobacco Use Status: Never used Tobacco Second Hand Smoke Exposure: No Advance Directives Date on File: 07/27/20 service: Yes Current occupational status: retired Sexual orientation: Straight/Heterosexual Meds Allergies Allergy/AdvReac Type Severity Reaction Status Date / Time No Known Allergies Allergy Verified 01/25/21 06:43 [No Known Allergies*] Active Medications: Current Medications Lactated Ringer's (Lr) 1,000 mls @ 100 mls/hr IVCONT .Q10H [facility] Exam Exam Date and Time: October 02, 2021 0844 Height,Weight and Vital Signs: Height 5 ft 11 in Weight 86.183 kg Vital Signs Temp Pulse Resp BP Pulse Ox 98 F 110 H 20 142/111 H 97 10/02/21 07:19 10/02/21 07:19 10/02/21 07:19 10/02/21 07:19 10/02/21 07:19 Pertinent Lab Results Pertinent Lab Results: Laboratory Tests 10/02/21 06:35 COVID-19 ([facility]) Negative COVID-19 Clin Com See Note Airway Mallampati Class: II TM Dist: >3cm Neck ROM: Full Denture: Upper Heart: RRR ?murmur Lungs: CTAB Assessment and Plan Assessment Anesthesia Assessment: Anesthesia Plan Discussed (Consent obtained from daughter) and Chart Reviewed Final Anesthetic Review Family History of Problems with Anesthesia: No History of Problems with Anesthesia: No NPO: Yes ASA Class: III Final Preanesthetic Review: No Changes in Pt Med Stat, Meds/Allgs Chart Reviewed, Consent Obtained/Reviewed and Anes Risks/Benef Reviewed Patient Risk: Intermediate Procedure Risk: Intermediate Assessment/Block/Sedation in SS: Assess/Block/Sedation-SS Anesthetic Plan Anesthetic Plan: GA Disposition: Standard PACU
== END 2021-10-02 09:24 | disposition home or self-care (01) ==
PROVIDERS: Visit Provider Psychiatry & Neurology Psychiatry
PROC: (CPT 90870; principal; 2021-10-02 08:00)
DX: F33.3 Major depressive disorder, recurrent, severe with psychotic symptoms (principal); F06.1 Catatonic disorder due to known physiological condition; F03.90 Unspecified dementia, unspecified severity, without behavioral disturbance, psychotic disturbance, mood disturbance, and anxiety; I10 Essential (primary) hypertension; I47.1 Supraventricular tachycardia; E78.5 Hyperlipidemia, unspecified; I26.99 Other pulmonary embolism without acute cor pulmonale; Z20.822 Contact with and (suspected) exposure to COVID-19; Z79.01 Long term (current) use of anticoagulants; Z79.899 Other long term (current) drug therapy
CPT/HCPCS: 36415; 87635; 90870; J0330; J2250; J2405

== ENCOUNTER 2021-10-18 06:02 | Day surgery (SDC) | payer MEDICARE, OTHER, SELFPAY ==
[2021-10-18 06:40] LABS: COVID-19 Test Negative (Negative); IDNOW Serial# 9DD0AD1C
[2021-10-18 06:47] VITALS: BP 165/95; PULSE 120; RESP 20; TEMP 36.9; O2SAT 97; BMI 25.7
--- NOTE | 2021-10-18 07:03 | HO.ANESPROP2 ---
[facility] Active Problems Active Problems: All Active Problems (Updated 08/21/21 @ 09:05 by Leila Bryson APRN) Major depressive disorder, recurrent, severe with psychotic features (Acute) Depression (Acute) Physical deconditioning (Acute) Preoperative cardiovascular examination (Acute) Anemia (Acute) GERD (gastroesophageal reflux disease) (Acute) Past Medical History Medical History COVID-19 vaccine administered Dementia Depression Diverticulitis of colon with perforation GERD (gastroesophageal reflux disease) History of electroconvulsive therapy HTN (hypertension) Hyperlipidemia Major depressive disorder, recurrent, severe with psychotic features Pulmonary embolism SVT (supraventricular tachycardia) Family History Family History Brother Blood clot in vein Other No history of cardiac disorder Family history of problems with anesthesia: No Surgical History Surgical History H/O colonoscopy H/O hernia repair History of colostomy reversal History of esophagogastroduodenoscopy (EGD) Status post Paula's procedure History of Problems with Anesthesia: No Social History Social History Household Members: Other Housing: Assisted Living Facility Are you a primary career based intervention coordinator to a significant other at home: No Do you presently have visiting nurse or other home services: No Alcohol intake: former Patient Tobacco Use Status: Never used Tobacco Second Hand Smoke Exposure: No Are you DNR?: No Advance Directives: No Advance Directives Information Provided: Yes Advance Directives Date on File: 07/27/20 Recently lost weight without trying: No service: Yes Current occupational status: retired Sexual orientation: Straight/Heterosexual Meds Allergies Allergy/AdvReac Type Severity Reaction Status Date / Time No Known Allergies Allergy Verified 01/25/21 06:43 [No Known Allergies*] Active Medications: Current Medications Lactated Ringer's (Lr) 1,000 mls @ 50 mls/hr IVCONT .Q20H [facility] Exam Exam Date and Time: October 18, 2021 0703 Height,Weight and Vital Signs: Height 5 ft 11 in Weight 83.915 kg Last Vital Signs Temp 98.4 F 01/14/22 06:47 Pulse 120 H 10/18/21 06:47 Resp 20 10/18/21 06:47 BP 165/95 H 10/18/21 06:47 Pulse Ox 97 10/18/21 06:47 Pertinent Lab Results Pertinent Lab Results: Laboratory Tests 10/18/21 06:15 COVID-19 ([facility]) Negative COVID-19 Clin Com See Note Airway Mallampati Class: II TM Dist: >3cm Neck ROM: Full Denture: Upper Heart: tachy Lungs: cta bl Assessment and Plan Assessment Anesthesia Assessment: Anesthesia Plan Discussed and Chart Reviewed Final Anesthetic Review Family History of Problems with Anesthesia: No History of Problems with Anesthesia: No NPO: Yes ASA Class: III Final Preanesthetic Review: No Changes in Pt Med Stat, Meds/Allgs Chart Reviewed and Consent Obtained/Reviewed Patient Risk: Intermediate Procedure Risk: Intermediate Anesthetic Plan Anesthetic Plan: GA Disposition: Standard PACU
--- NOTE | 2021-10-18 07:11 | MHC.SHP ---
Pre-Procedural Eval Section A Date of Service: 10/18/21 Changes since office visit: Yes Patient answered all questions; No Cold of Flu in the past 2 weeks, No New Medical Problems and No Changes in Medication The History & Physical has been completed within 30 days and I have reviewed it.: Yes Section B Chief Complaint: depression Allergies: Allergies Allergy/AdvReac Type Severity Reaction Status Date / Time No Known Allergies Allergy Verified 01/25/21 06:43 [No Known Allergies*] Plan I have reviewed the history and physical and performed a pertinent physical examination on my patient. No changes have occurred unless specified.
--- NOTE | 2021-10-18 07:13 | HO.ECTPROC ---
ECT Procedure Note Diagnosis/Treatment Date of Service: 10/18/21 Diagnosis: Major Depressive Disorder Treatment: Maintenance Interval Clinical Notes: Pt states things have been going ok ECT Settings Device: THYMATRON DGx Electrode Placement: Right Unilateral Program/Pulse Width: 0.50 Energy Percent: 100 Seizure Duration By EEG (in seconds): 38 Medications Administration General Anesthetic: Etomidate (12) Muscle Relaxant: Succinylcholine (100) Ancillary Medications Cardiovascular Medications: Esmolol (10 plus 10) Airway Management Airway Management: Bag Mask Ventilation Treatment Recommendations No Changes Recommended: No change Notes: f/u tx 3 weeks Pt Tolerated Procedure w/o Issue: Yes
[2021-10-18 07:38] VITALS: BP 128/84; PULSE 112; RESP 18; TEMP 37.1; O2SAT 98
[2021-10-18 07:43] VITALS: BP 131/87; PULSE 120; RESP 14; O2SAT 96
[2021-10-18 07:48] VITALS: BP 134/80; PULSE 108; RESP 20; O2SAT 96
[2021-10-18 07:53] VITALS: BP 127/87; PULSE 112; RESP 21; O2SAT 94
[2021-10-18 08:08] VITALS: BP 111/76; PULSE 98; RESP 20; TEMP 37.2; O2SAT 95
== END 2021-10-18 08:35 ==
LOC: HO.SSS 06:03
PROVIDERS: Anesthesiology; Visit Provider Psychiatry & Neurology Psychiatry
PROC: (CPT 90870; principal; 2021-10-18 07:00)
DX: F33.3 Major depressive disorder, recurrent, severe with psychotic symptoms (principal); F03.90 Unspecified dementia, unspecified severity, without behavioral disturbance, psychotic disturbance, mood disturbance, and anxiety; I10 Essential (primary) hypertension; E78.5 Hyperlipidemia, unspecified; Z79.899 Other long term (current) drug therapy; Z20.822 Contact with and (suspected) exposure to COVID-19
CPT/HCPCS: 87635; 90870; J0330; J2250; J2405

== ENCOUNTER 2021-11-20 05:56 | Day surgery (SDC) | payer MEDICARE, OTHER, SELFPAY ==
[2021-11-20] VITALS (7 sets, daily range): BP systolic 110–161; BP diastolic 69–92; PULSE 99–123; RESP 18–20; TEMP 36.2–36.6; O2SAT 94–98; BMI 25.7
[2021-11-20 06:41] LABS: COVID-19 Test Negative (Negative)
--- NOTE | 2021-11-20 07:01 | HO.ANESPROP2 ---
[facility] Active Problems Active Problems: All Active Problems (Updated 08/21/21 @ 09:05 by Leila Bryson APRN) Major depressive disorder, recurrent, severe with psychotic features (Acute) Depression (Acute) Physical deconditioning (Acute) Preoperative cardiovascular examination (Acute) Anemia (Acute) GERD (gastroesophageal reflux disease) (Acute) Past Medical History Medical History COVID-19 vaccine administered Dementia Depression Diverticulitis of colon with perforation GERD (gastroesophageal reflux disease) History of electroconvulsive therapy HTN (hypertension) Hyperlipidemia Major depressive disorder, recurrent, severe with psychotic features Pulmonary embolism SVT (supraventricular tachycardia) Family History Family History Brother Blood clot in vein Other No history of cardiac disorder Family history of problems with anesthesia: No Surgical History Surgical History H/O colonoscopy H/O hernia repair History of colostomy reversal History of esophagogastroduodenoscopy (EGD) Status post Paula's procedure History of Problems with Anesthesia: No Social History Social History Household Members: Other Housing: Assisted Living Facility Are you a primary transition of care specialist to a significant other at home: No Do you presently have visiting nurse or other home services: No Alcohol intake: former Patient Tobacco Use Status: Never used Tobacco Second Hand Smoke Exposure: No Advance Directives: No Advance Directives Information Provided: Yes Advance Directives Date on File: 07/27/20 service: Yes Current occupational status: retired Sexual orientation: Straight/Heterosexual Meds Allergies Allergy/AdvReac Type Severity Reaction Status Date / Time No Known Allergies Allergy Verified 01/25/21 06:43 [No Known Allergies*] Exam Exam Date and Time: November 20, 2021 0701 Pertinent Lab Results Pertinent Lab Results: Laboratory Tests 11/20/21 06:10 COVID-19 ([facility]) Negative COVID-19 Clin Com See Note Airway Mallampati Class: II TM Dist: >3cm Neck ROM: Full Denture: Upper Heart: rrr Lungs: cta Assessment and Plan Assessment Anesthesia Assessment: Anesthesia Plan Discussed and Chart Reviewed Final Anesthetic Review Family History of Problems with Anesthesia: No History of Problems with Anesthesia: No NPO: Yes ASA Class: III Final Preanesthetic Review: No Changes in Pt Med Stat, Meds/Allgs Chart Reviewed and Consent Obtained/Reviewed Patient Risk: Intermediate Procedure Risk: Intermediate Anesthetic Plan Anesthetic Plan: GA Disposition: Standard PACU
--- NOTE | 2021-11-20 07:48 | MHC.SHP ---
Pre-Procedural Eval Section A Date of Service: 11/20/21 The patient is an INPATIENT: No Changes since office visit: Yes Changes in Medication and Yes Patient answered all questions; No Cold of Flu in the past 2 weeks and No New Medical Problems The History & Physical has been completed within 30 days and I have reviewed it.: Yes Section B Chief Complaint: depression Allergies: Allergies Allergy/AdvReac Type Severity Reaction Status Date / Time No Known Allergies Allergy Verified 01/25/21 06:43 [No Known Allergies*] Plan I have reviewed the history and physical and performed a pertinent physical examination on my patient. No changes have occurred unless specified.
--- NOTE | 2021-11-20 07:49 | HO.ECTPROC ---
ECT Procedure Note Diagnosis/Treatment Date of Service: 11/20/21 Diagnosis: Major Depressive Disorder Previous ECT Date: 10/18/21 Treatment: Maintenance Interval Clinical Notes: pt at [facility] generally stable social active sees brother no new medical concerns ECT Settings Device: THYMATRON DGx Electrode Placement: Right Unilateral Program/Pulse Width: 0.50 Energy Percent: 100 Seizure Duration By EEG (in seconds): 54 Medications Administration General Anesthetic: Etomidate (12) Muscle Relaxant: Succinylcholine (100) Ancillary Medications Analgesics: Torodol - Pre ECT Anti-emetics: Zofran - Pre ECT Cardiovascular Medications: Esmolol (20 pre 10 post stim tachycardia ) Miscillaneous Medications: Propofol and Midazolam Airway Management Airway Management: Bag Mask Ventilation Treatment Recommendations No Changes Recommended: No change Notes: ptappears quite stable f/u tx 3 1/2 weeks Pt Tolerated Procedure w/o Issue: Yes
== END 2021-11-20 09:25 ==
LOC: HO.SSS 05:57
PROVIDERS: Visit Provider Psychiatry & Neurology Psychiatry
PROC: (CPT 90870; principal; 2021-11-20 07:30)
DX: F33.2 Major depressive disorder, recurrent severe without psychotic features (principal); I10 Essential (primary) hypertension; I26.99 Other pulmonary embolism without acute cor pulmonale; E78.2 Mixed hyperlipidemia; K21.9 Gastro-esophageal reflux disease without esophagitis; Z79.01 Long term (current) use of anticoagulants; Z79.899 Other long term (current) drug therapy; Z20.822 Contact with and (suspected) exposure to COVID-19
CPT/HCPCS: 87635; 90870; J0330; J2250; J2405

== ENCOUNTER 2021-12-13 05:54 | Day surgery (SDC) | payer MEDICARE, OTHER, SELFPAY ==
[2021-12-13] VITALS (7 sets, daily range): BP systolic 100–158; BP diastolic 67–96; PULSE 100–117; RESP 14–20; TEMP 36.8–37.1; O2SAT 93–100; BMI 25.7
[2021-12-13 06:35] LABS: COVID-19 Test Negative (Negative)
--- NOTE | 2021-12-13 06:50 | HO.ANESPROP2 ---
[facility] Active Problems Active Problems: All Active Problems (Updated 08/21/21 @ 09:05 by Leila Bryson APRN) Major depressive disorder, recurrent, severe with psychotic features (Acute) Depression (Acute) Physical deconditioning (Acute) Preoperative cardiovascular examination (Acute) Anemia (Acute) GERD (gastroesophageal reflux disease) (Acute) Past Medical History Medical History COVID-19 vaccine administered Dementia Depression Diverticulitis of colon with perforation GERD (gastroesophageal reflux disease) History of electroconvulsive therapy HTN (hypertension) Hyperlipidemia Major depressive disorder, recurrent, severe with psychotic features Pulmonary embolism SVT (supraventricular tachycardia) Family History Family History Brother Blood clot in vein Other No history of cardiac disorder Family history of problems with anesthesia: No Surgical History Surgical History H/O colonoscopy H/O hernia repair History of colostomy reversal History of esophagogastroduodenoscopy (EGD) Status post Paula's procedure History of Problems with Anesthesia: No Social History Social History Household Members: Other Housing: Assisted Living Facility Are you a primary before and after school daycare worker to a significant other at home: No Do you presently have visiting nurse or other home services: No Alcohol intake: former Patient Tobacco Use Status: Never used Tobacco Second Hand Smoke Exposure: No Advance Directives: No Advance Directives Information Provided: Yes Advance Directives Date on File: 07/27/20 service: Yes Current occupational status: retired Sexual orientation: Straight/Heterosexual Meds Allergies Allergy/AdvReac Type Severity Reaction Status Date / Time No Known Allergies Allergy Verified 01/25/21 06:43 [No Known Allergies*] Exam Exam Date and Time: December 13, 2021 0650 Pertinent Lab Results Pertinent Lab Results: Laboratory Tests 12/13/21 06:10 COVID-19 ([facility]) Negative COVID-19 Clin Com See Note Airway Mallampati Class: II TM Dist: >3cm Neck ROM: Full Denture: Upper Heart: rrr Lungs: cta Assessment and Plan Assessment Anesthesia Assessment: Anesthesia Plan Discussed and Chart Reviewed Final Anesthetic Review Family History of Problems with Anesthesia: No History of Problems with Anesthesia: No NPO: Yes ASA Class: III Final Preanesthetic Review: No Changes in Pt Med Stat, Meds/Allgs Chart Reviewed and Consent Obtained/Reviewed Patient Risk: Intermediate Procedure Risk: Intermediate Anesthetic Plan Anesthetic Plan: GA Disposition: Standard PACU
--- NOTE | 2021-12-13 07:29 | MHC.SHP ---
Pre-Procedural Eval Section A Date of Service: 12/13/21 Changes since office visit: Yes Patient answered all questions; No Cold of Flu in the past 2 weeks, No New Medical Problems and No Changes in Medication The History & Physical has been completed within 30 days and I have reviewed it.: Yes Section B Chief Complaint: depression Details of Present Illness: RECURRENT DEPRESSION Relevant Family History (Specify if Yes): No Present Medications: see Short Stay Collaborative assessment Medical History: Significant History (GERD ANEMIA ) History of Previous Operations: No relevant previous surgery (ECT) Allergies: Allergies Allergy/AdvReac Type Severity Reaction Status Date / Time No Known Allergies Allergy Verified 01/25/21 06:43 [No Known Allergies*] Review of Systems Sugical H&P ROS: Negative: Constitution, Cardiovascular, Respiratory and Psychiatric Exam Surgical H&P Exam: Normal: Heart (RR ) and Normal: Lungs (CLEAR) Plan Diagnosis/Plan: Unchanged I have reviewed the history and physical and performed a pertinent physical examination on my patient. No changes have occurred unless specified.
--- NOTE | 2021-12-13 07:44 | HO.ECTPROC ---
ECT Procedure Note Diagnosis/Treatment Date of Service: 12/13/21 Diagnosis: Major Depressive Disorder and Catatonia Previous ECT Date: 11/20/21 Treatment: Maintenance Interval Clinical Notes: PT WITH FULL AFFECT FEELS BETTER GENERALLY ALERT ENGAGED ECT Settings Device: THYMATRON DGx Electrode Placement: Right Unilateral Program/Pulse Width: 0.50 Energy Percent: 100 Seizure Duration By EEG (in seconds): 68 Medications Administration General Anesthetic: Etomidate (12) Muscle Relaxant: Succinylcholine (100) Ancillary Medications Cardiovascular Medications: Esmolol (20 PRE TX 10 MG POST TX ) Miscillaneous Medications: Propofol (30) and Midazolam (2 MG ) Airway Management Airway Management: Bag Mask Ventilation Treatment Recommendations No Changes Recommended: No change Notes: DOING WELL WITH MAINT TX Pt Tolerated Procedure w/o Issue: Yes
== END 2021-12-13 08:50 | disposition home or self-care (01) ==
PROVIDERS: Anesthesiology; Visit Provider Psychiatry & Neurology Psychiatry
PROC: (CPT 90870; principal; 2021-12-13 07:00)
DX: F33.3 Major depressive disorder, recurrent, severe with psychotic symptoms (principal); F20.2 Catatonic schizophrenia; F03.90 Unspecified dementia, unspecified severity, without behavioral disturbance, psychotic disturbance, mood disturbance, and anxiety; D64.9 Anemia, unspecified; K21.9 Gastro-esophageal reflux disease without esophagitis; I10 Essential (primary) hypertension; I26.99 Other pulmonary embolism without acute cor pulmonale; E78.5 Hyperlipidemia, unspecified; Z79.899 Other long term (current) drug therapy; Z20.822 Contact with and (suspected) exposure to COVID-19
CPT/HCPCS: 87635; 90870; J0330; J2250; J2405

== ENCOUNTER 2022-01-10 05:51 | Day surgery (SDC) | payer MEDICARE, OTHER, SELFPAY ==
[2022-01-10 06:23] VITALS: BP 131/83; PULSE 112; RESP 20; TEMP 36.6; O2SAT 95; BMI 25.7
[2022-01-10 06:35] LABS: COVID-19 Test Negative (Negative)
--- NOTE | 2022-01-10 07:08 | HO.ANESPROP2 ---
[facility] Active Problems Active Problems: All Active Problems (Updated 08/21/21 @ 09:05 by Leila Bryson APRN) Major depressive disorder, recurrent, severe with psychotic features (Acute) Depression (Acute) Physical deconditioning (Acute) Preoperative cardiovascular examination (Acute) Anemia (Acute) GERD (gastroesophageal reflux disease) (Acute) Past Medical History Medical History COVID-19 vaccine administered Dementia Depression Diverticulitis of colon with perforation GERD (gastroesophageal reflux disease) History of electroconvulsive therapy HTN (hypertension) Hyperlipidemia Major depressive disorder, recurrent, severe with psychotic features Pulmonary embolism SVT (supraventricular tachycardia) Family History Family History Brother Blood clot in vein Other No history of cardiac disorder Family history of problems with anesthesia: No Surgical History Surgical History H/O colonoscopy H/O hernia repair History of colostomy reversal History of esophagogastroduodenoscopy (EGD) Status post Paula's procedure History of Problems with Anesthesia: No Social History Social History Household Members: Other Housing: Assisted Living Facility Are you a primary rn palliative care to a significant other at home: No Do you presently have visiting nurse or other home services: No Alcohol intake: former Patient Tobacco Use Status: Never used Tobacco Second Hand Smoke Exposure: No Advance Directives: Yes Advance Directives on File: Yes Advance Directives Date on File: 07/27/20 service: Yes Current occupational status: retired Sexual orientation: Straight/Heterosexual Meds Allergies Allergy/AdvReac Type Severity Reaction Status Date / Time No Known Allergies Allergy Verified 01/25/21 06:43 [No Known Allergies*] Exam Exam Date and Time: January 10, 2022 0708 Height,Weight and Vital Signs: Height 5 ft 11 in Weight 83.915 kg Last Vital Signs Temp 98 F 01/10/22 06:23 Pulse 112 H 01/10/22 06:23 Resp 20 01/10/22 06:23 BP 131/83 01/10/22 06:23 Pulse Ox 95 01/10/22 06:23 Pertinent Lab Results Pertinent Lab Results: Laboratory Tests 01/10/22 06:13 COVID-19 ([facility]) Negative COVID-19 Clin Com See Note Airway Mallampati Class: II TM Dist: >3cm Neck ROM: Full Denture: Upper Heart: rrr Lungs: cta Assessment and Plan Assessment Anesthesia Assessment: Anesthesia Plan Discussed and Chart Reviewed Final Anesthetic Review Family History of Problems with Anesthesia: No History of Problems with Anesthesia: No NPO: Yes ASA Class: III Final Preanesthetic Review: No Changes in Pt Med Stat, Meds/Allgs Chart Reviewed and Consent Obtained/Reviewed Patient Risk: Intermediate Procedure Risk: Intermediate Anesthetic Plan Anesthetic Plan: GA Disposition: Standard PACU
[2022-01-10] MEDS: Lactated Ringers 1,000 ML 50 ML IVCONT (07:34)
--- NOTE | 2022-01-10 08:18 | P.HPSUR_ITS ---
Pre-Procedural Eval Section A Date of Service: 01/10/22 The patient is an INPATIENT: No Changes since office visit: Yes Cold of Flu in the past 2 weeks, Yes New Medical Problems, Yes Changes in Medication and Yes Patient answered all questions The History & Physical has been completed within 30 days and I have reviewed it.: No Section B Chief Complaint: depression Details of Present Illness: Hx of MDD Relevant Family History (Specify if Yes): Yes Relevant Social History: None Present Medications: None Medical History: No relevant PMH Allergies: Allergies Allergy/AdvReac Type Severity Reaction Status Date / Time No Known Allergies Allergy Verified 01/25/21 06:43 [No Known Allergies*] Review of Systems Sugical H&P ROS: Negative: Constitution, Cardiovascular, Respiratory, N eurological, Psychiatric, Hem-Onc, Allergic/Immunologic, Gastrointestinal, Genitourinary, Musculoskeletal, Integumentary, Endocrine and Eyes/Ears/Nose/Throat Exam Surgical H&P Exam: Normal: HEENT, Normal: Heart, Normal: Lungs, Normal: Extremities, Normal: Abdomen, Normal: Skin and Normal: Neurological Plan Diagnosis/Plan: Unchanged I have reviewed the history and physical and performed a pertinent physical examination on my patient. No changes have occurred unless specified.
--- NOTE | 2022-01-10 08:28 | HO.ECTPROC ---
ECT Procedure Note Diagnosis/Treatment Date of Service: 01/10/22 Diagnosis: Major Depressive Disorder Treatment: Maintenance Interval Clinical Notes: The patient presented with bright affect, no new symptoms ECT Settings Device: THYMATRON DGx Electrode Placement: Right Unilateral Program/Pulse Width: 0.50 Energy Percent: 100 Seizure Duration By EEG (in seconds): 45 By Motor Observation (in seconds): 23 Medications Administration General Anesthetic: Etomidate Muscle Relaxant: Succinylcholine Ancillary Medications Analgesics: Torodol - Pre ECT Anti-emetics: Zofran - Pre ECT Miscillaneous Medications: Propofol Airway Management Airway Management: Bag Mask Ventilation Treatment Recommendations No Changes Recommended: No change Pt Tolerated Procedure w/o Issue: Yes
[2022-01-10 08:36] VITALS: BP 130/82; PULSE 102; RESP 14; TEMP 37.2; O2SAT 97
[2022-01-10 08:41] VITALS: BP 128/88; PULSE 102; RESP 19; O2SAT 93
[2022-01-10 08:46] VITALS: BP 118/88; PULSE 102; RESP 16; O2SAT 94
[2022-01-10 08:51] VITALS: BP 110/77; PULSE 102; RESP 22; O2SAT 95
[2022-01-10 09:11] VITALS: BP 108/68; PULSE 99; RESP 17; TEMP 36.9; O2SAT 97
== END 2022-01-10 09:30 | disposition home or self-care (01) ==
PROVIDERS: Visit Provider Psychiatry & Neurology Psychiatry
PROC: (CPT 90870; principal; 2022-01-10 07:00)
DX: F33.3 Major depressive disorder, recurrent, severe with psychotic symptoms (principal); D64.9 Anemia, unspecified; K21.9 Gastro-esophageal reflux disease without esophagitis; Z86.711 Personal history of pulmonary embolism; Z79.01 Long term (current) use of anticoagulants; Z79.899 Other long term (current) drug therapy; Z20.822 Contact with and (suspected) exposure to COVID-19; E78.5 Hyperlipidemia, unspecified
CPT/HCPCS: 87635; 90870; J0330; J2250; J2405

== ENCOUNTER 2022-02-10 05:50 | Day surgery (SDC) | payer MEDICARE, OTHER, SELFPAY ==
[2022-02-10] VITALS (7 sets, daily range): BP systolic 95–164; BP diastolic 71–94; PULSE 93–113; RESP 14–18; TEMP 36.7–37.4; O2SAT 96–100; BMI 25.7
[2022-02-10 06:41] LABS: COVID-19 Test Negative (Negative); IDNOW Serial# 16C4AD1C
--- NOTE | 2022-02-10 06:45 | HO.ANESPROP2 ---
[facility] Active Problems Active Problems: All Active Problems (Updated 08/21/21 @ 09:05 by Leila Bryson APRN) Major depressive disorder, recurrent, severe with psychotic features (Acute) Depression (Acute) Physical deconditioning (Acute) Preoperative cardiovascular examination (Acute) Anemia (Acute) GERD (gastroesophageal reflux disease) (Acute) Past Medical History Medical History COVID-19 vaccine administered Dementia Depression Diverticulitis of colon with perforation GERD (gastroesophageal reflux disease) History of electroconvulsive therapy HTN (hypertension) Hyperlipidemia Major depressive disorder, recurrent, severe with psychotic features Pulmonary embolism SVT (supraventricular tachycardia) Family History Family History Brother Blood clot in vein Other No history of cardiac disorder Family history of problems with anesthesia: No Surgical History Surgical History H/O colonoscopy H/O hernia repair History of colostomy reversal History of esophagogastroduodenoscopy (EGD) Status post Paula's procedure History of Problems with Anesthesia: No Social History Social History Household Members: Other Housing: Assisted Living Facility Are you a primary hospice home care coordinator to a significant other at home: No Do you presently have visiting nurse or other home services: No Alcohol intake: former Patient Tobacco Use Status: Never used Tobacco Second Hand Smoke Exposure: No Advance Directives: Yes Advance Directives on File: Yes Advance Directives Date on File: 07/27/20 service: Yes Current occupational status: retired Sexual orientation: Straight/Heterosexual Meds Allergies Allergy/AdvReac Type Severity Reaction Status Date / Time No Known Allergies Allergy Verified 01/25/21 06:43 [No Known Allergies*] Active Medications: Current Medications Lactated Ringer's (Lr) 1,000 mls @ 50 mls/hr IVCONT .Q20H ROMMEL Exam Exam Date and Time: February 10, 2022 0645 Height,Weight and Vital Signs: Height 5 ft 11 in Weight 83.915 kg Last Vital Signs Temp 98.2 F 02/10/22 06:34 Pulse 112 H 02/10/22 06:34 Resp 18 02/10/22 06:34 BP 147/85 H 02/10/22 06:34 Pulse Ox 97 02/10/22 06:34 Pertinent Lab Results Pertinent Lab Results: Laboratory Tests 02/10/22 06:12 COVID-19 ([facility]) Negative COVID-19 Clin Com See Note Airway Mallampati Class: II TM Dist: >3cm Neck ROM: Full Denture: Upper Heart: rrr Lungs: cta Assessment and Plan Assessment Anesthesia Assessment: Anesthesia Plan Discussed and Chart Reviewed Final Anesthetic Review Family History of Problems with Anesthesia: No History of Problems with Anesthesia: No NPO: Yes ASA Class: III Final Preanesthetic Review: No Changes in Pt Med Stat, Meds/Allgs Chart Reviewed and Consent Obtained/Reviewed Patient Risk: Intermediate Procedure Risk: Intermediate Anesthetic Plan Anesthetic Plan: GA Disposition: Standard PACU
--- NOTE | 2022-02-10 07:07 | MHC.SHP ---
Pre-Procedural Eval Section A Date of Service: 02/10/22 The patient is an INPATIENT: No Changes since office visit: Yes Patient answered all questions; No Cold of Flu in the past 2 weeks, No New Medical Problems and No Changes in Medication The History & Physical has been completed within 30 days and I have reviewed it.: No Section B Chief Complaint: depression Details of Present Illness: recurrent depression stable with maint ect Relevant Family History (Specify if Yes): No Relevant Social History: None Present Medications: see Short Stay Collaborative assessment Medical History: Significant History (gi bleed diverticulitis PE) History of Previous Operations: No relevant previous surgery (ect) Allergies: Allergies Allergy/AdvReac Type Severity Reaction Status Date / Time No Known Allergies Allergy Verified 01/25/21 06:43 [No Known Allergies*] Review of Systems Sugical H&P ROS: Negative: Constitution, Cardiovascular and Respiratory Exam Surgical H&P Exam: Normal: Heart (tacycardia regular no murmur) and Normal: Lungs (clear) Plan Diagnosis/Plan: Unchanged I have reviewed the history and physical and performed a pertinent physical examination on my patient. No changes have occurred unless specified.
--- NOTE | 2022-02-10 07:11 | HO.ECTPROC ---
ECT Procedure Note Diagnosis/Treatment Date of Service: 02/13/22 Diagnosis: Major Depressive Disorder and Catatonia (hx of catatonia) Previous ECT Date: 01/10/22 Treatment: Maintenance ECT Settings Device: THYMATRON DGx Electrode Placement: Right Unilateral Program/Pulse Width: 0.50 Energy Percent: 100 Seizure Duration By EEG (in seconds): 56 Medications Administration General Anesthetic: Etomidate Muscle Relaxant: Succinylcholine Ancillary Medications Anti-emetics: Zofran - Pre ECT Miscillaneous Medications: Propofol and Midazolam Airway Management Airway Management: Bag Mask Ventilation Treatment Recommendations No Changes Recommended: No change Notes: Patient appears to be doing well with monthly maintenance ECT. Patient sees Dr. Sims for psychiatric follow-up. Stepdaughter continues to give consent through invoke healthcare proxy Pt Tolerated Procedure w/o Issue: Yes
== END 2022-02-10 08:48 | disposition home or self-care (01) ==
PROVIDERS: Visit Provider Psychiatry & Neurology Psychiatry
PROC: (CPT 90870; principal; 2022-02-10 07:00)
DX: F33.3 Major depressive disorder, recurrent, severe with psychotic symptoms (principal); I10 Essential (primary) hypertension; E78.5 Hyperlipidemia, unspecified; F03.90 Unspecified dementia, unspecified severity, without behavioral disturbance, psychotic disturbance, mood disturbance, and anxiety; Z86.711 Personal history of pulmonary embolism; Z79.01 Long term (current) use of anticoagulants; Z79.899 Other long term (current) drug therapy; Z20.822 Contact with and (suspected) exposure to COVID-19
CPT/HCPCS: 87635; 90870; J0330; J2250; J2405

== ENCOUNTER 2022-03-10 05:57 | Day surgery (SDC) | payer MEDICARE, OTHER, SELFPAY ==
[2022-03-10] VITALS (9 sets, daily range): BP systolic 104–153; BP diastolic 63–90; PULSE 94–122; RESP 16–26; TEMP 36.8–37.2; O2SAT 93–99; BMI 25.7
--- NOTE | 2022-03-10 | ECG_ITS ---
Test Reason : ECT Blood Pressure : / mmHG Vent. Rate : 102 BPM Atrial Rate : 102 BPM P-R Int : 188 ms QRS Dur : 098 ms QT Int : 364 ms P-R-T Axes : 012 -37 009 degrees QTc Int : 474 ms Sinus tachycardia with occasional Premature ventricular complexes Left axis deviation Abnormal ECG When compared with ECG of 06-SEP-2021 11:00, Premature ventricular complexes are now Present Referred By: Leann Nelson Electronically Signed By:ZORA TILLMAN
[2022-03-10 06:39] LABS: COVID-19 Test Negative (Negative); IDNOW Serial# 16C4AD1C
--- NOTE | 2022-03-10 07:05 | MHC.SHP ---
Pre-Procedural Eval Section A Date of Service: 03/10/22 The patient is an INPATIENT: No Changes since office visit: No Cold of Flu in the past 2 weeks, No New Medical Problems, No Changes in Medication and No Patient answered all questions The History & Physical has been completed within 30 days and I have reviewed it.: Yes Section B Chief Complaint: depression Details of Present Illness: Long history of MDD that improves with ECT, usually residual dysphoria Relevant Family History (Specify if Yes): Yes Relevant Social History: None Present Medications: see Short Stay Collaborative assessment Medical History: No relevant PMH History of Previous Operations: No relevant previous surgery Allergies: Allergies Allergy/AdvReac Type Severity Reaction Status Date / Time No Known Allergies Allergy Verified 01/25/21 06:43 [No Known Allergies*] Review of Systems Sugical H&P ROS: Negative: Constitution, Cardiovascular, Respiratory, Neurological, Psychiatric, Hem-Onc, Allergic/Immunologic, Gastrointestinal, Genitourinary, Musculoskeletal, Integumentary, Endocrine and Eyes/Ears/Nose/Throat Exam Surgical H&P Exam: Normal: HEENT, Normal: Heart, Normal: Lungs, Normal: Extremities, Normal: Abdomen, Normal: Skin and Normal: Neurological Plan Diagnosis/Plan: Unchanged I have reviewed the history and physical and performed a pertinent physical examination on my patient. No changes have occurred unless specified.
--- NOTE | 2022-03-10 07:10 | P.CONAN_ITS ---
[facility] Active Problems Active Problems: All Active Problems (Updated 08/21/21 @ 09:05 by Leila Bryson APRN) Major depressive disorder, recurrent, severe with psychotic features (Acute) Depression (Acute) Physical deconditioning (Acute) Preoperative cardiovascular examination (Acute) Anemia (Acute) GERD (gastroesophageal reflux disease) (Acute) Past Medical History Medical History COVID-19 vaccine administered Dementia Depression Diverticulitis of colon with perforation GERD (gastroesophageal reflux disease) History of electroconvulsive therapy HTN (hypertension) Hyperlipidemia Major depressive disorder, recurrent, severe with psychotic features Pulmonary embolism SVT (supraventricular tachycardia) Family History Family History Brother Blood clot in vein Other No history of cardiac disorder Family history of problems with anesthesia: No Surgical History Surgical History H/O colonoscopy H/O hernia repair History of colostomy reversal History of esophagogastroduodenoscopy (EGD) Status post Paula's procedure History of Problems with Anesthesia: No Social History Social History Household Members: Other Housing: Assisted Living Facility Are you a primary manager medicare marketing to a significant other at home: No Do you presently have visiting nurse or other home services: No Alcohol intake: former Patient Tobacco Use Status: Never used Tobacco Second Hand Smoke Exposure: No Advance Directives Date on File: 07/27/20 service: Yes Current occupational status: retired Sexual orientation: Straight/Heterosexual Meds Allergies Allergy/AdvReac Type Severity Reaction Status Date / Time No Known Allergies Allergy Verified 01/25/21 06:43 [No Known Allergies*] Exam Exam Date and Time: March 10, 2022 0710 Height,Weight and Vital Signs: Height 5 ft 11 in Weight 83.915 kg Last Vital Signs Temp 98.2 F 03/10/22 06:24 Pulse 122 H 03/10/22 06:24 Resp 18 03/10/22 06:24 BP 148/90 H 03/10/22 06:24 Pulse Ox 96 03/10/22 06:24 Pertinent Lab Results Pertinent Lab Results: Laboratory Tests 03/10/22 06:13 COVID-19 ([facility]) Negative COVID-19 Clin Com See Note Airway Mallampati Class: III TM Dist: >3cm Neck ROM: Limited Denture: Upper and Lower Loose/Missing/Broken Teeth: Yes, Upper and Lower Heart: RRR Lungs: CTA Assessment and Plan Assessment Anesthesia Assessment: Anesthesia Plan Discussed and Chart Reviewed Final Anesthetic Review Family History of Problems with Anesthesia: No History of Problems with Anesthesia: No ASA Class: III Final Preanesthetic Review: Meds/Allgs Chart Reviewed, Consent Obtained/Reviewed and Anes Risks/Benef Reviewed Patient Risk: Intermediate Procedure Risk: Intermediate Anesthetic Plan Anesthetic Plan: GA Disposition: Standard PACU
--- NOTE | 2022-03-10 07:23 | HO.ECTPROC ---
ECT Procedure Note Diagnosis/Treatment Date of Service: 03/10/22 Diagnosis: Major Depressive Disorder Treatment: Series Interval Clinical Notes: The patient reported stable mood, sporadic sleep disturbances, no new symptoms, no side effects with previous ECT. ECT Settings Device: THYMATRON DGx Electrode Placement: Right Unilateral Program/Pulse Width: 0.50 Energy Percent: 100 Seizure Duration By EEG (in seconds): 47 By Motor Observation (in seconds): 37 Medications Administration General Anesthetic: Etomidate (15) Muscle Relaxant: Succinylcholine (100) Ancillary Medications Anti-emetics: Zofran - Pre ECT Airway Management Airway Management: Bag Mask Ventilation Treatment Recommendations No Changes Recommended: No change Pt Tolerated Procedure w/o Issue: Yes
[2022-03-10 08:32] LABS: Hematocrit 34.5 % (42.0-52.0); Hemoglobin 11.9 g/dl (14.0-18.0); Mean Corpuscular HGB Conc 34.5 g/dl (31.0-36.0); Mean Corpuscular Hemoglobin 32.9 pg (27.0-33.0); Mean Corpuscular Volume 95.3 fL (80.0-98.0); Mean Platelet Volume 8.6 fL (9.4-12.4); Platelet Count 151 X10*3/uL (160-400); Red Blood Count 3.62 X10*6/uL (4.60-5.80); Red Cell Distribution Width 12.8 % (11.0-16.0); White Blood Count 5.6 X10*3/uL (4.8-10.8)
[2022-03-10 08:54] LABS: Anion Gap 12 (12-20); Blood Urea Nitrogen 23 mg/dL (9-16); Calcium 8.7 mg/dL (8.4-10.2); Carbon Dioxide 20 mmol/L (22-29); Chloride 112 mmol/L (96-108); Creatinine Clr Calc Pharmacy 75.3; Estimated Glomerular Filt Rate > 60; Glucose Random 136 mg/dL (60-115); Potassium 3.4 mmol/L (3.3-5.1); Sodium 141 mmol/L (135-145)
== END 2022-03-10 09:20 | disposition home or self-care (01) ==
PROVIDERS: Psychiatry & Neurology Psychiatry; Visit Provider Psychiatry & Neurology Psychiatry
PROC: (CPT 90870; principal; 2022-03-10 07:00)
DX: F33.3 Major depressive disorder, recurrent, severe with psychotic symptoms (principal); G47.8 Other sleep disorders; D64.9 Anemia, unspecified; I10 Essential (primary) hypertension; I47.1 Supraventricular tachycardia; K21.9 Gastro-esophageal reflux disease without esophagitis; E78.5 Hyperlipidemia, unspecified; F03.90 Unspecified dementia, unspecified severity, without behavioral disturbance, psychotic disturbance, mood disturbance, and anxiety; Z79.01 Long term (current) use of anticoagulants; Z79.899 Other long term (current) drug therapy; Z20.822 Contact with and (suspected) exposure to COVID-19
CPT/HCPCS: 36415; 80048; 85027; 87635; 90870; 93005; J0330; J2250; J2405

== ENCOUNTER 2022-04-09 05:52 | Day surgery (SDC) | payer MEDICARE, OTHER, SELFPAY ==
[2022-04-09] VITALS (7 sets, daily range): BP systolic 130–155; BP diastolic 80–92; PULSE 98–109; RESP 12–20; TEMP 37–37.1; O2SAT 94–98; BMI 25.7
--- NOTE | 2022-04-09 06:23 | P.CONAN_ITS ---
HPI - Anesthesia Eval Consult details Narrative: MAJOR DEPRESSIVE DISORDER [facility] Active Problems Active Problems: All Active Problems (Updated 08/21/21 @ 09:05 by Leila Bryson APRN) Major depressive disorder, recurrent, severe with psychotic features (Acute) Depression (Acute) Physical deconditioning (Acute) Preoperative cardiovascular examination (Acute) Anemia (Acute) GERD (gastroesophageal reflux disease) (Acute) Past Medical History Medical History COVID-19 vaccine administered Dementia Depression Diverticulitis of colon with perforation GERD (gastroesophageal reflux disease) History of electroconvulsive therapy HTN (hypertension) Hyperlipidemia Major depressive disorder, recurrent, severe with psychotic features Pulmonary embolism SVT (supraventricular tachycardia) Family History Family History Brother Blood clot in vein Other No history of cardiac disorder Family history of problems with anesthesia: No Surgical History Surgical History H/O colonoscopy H/O hernia repair History of colostomy reversal History of esophagogastroduodenoscopy (EGD) Status post Paula's procedure History of Problems with Anesthesia: No Social History Social History Household Members: Other Housing: Assisted Living Facility Are you a primary healthcare science specialist to a significant other at home: No Do you presently have visiting nurse or other home services: No Alcohol intake: former Patient Tobacco Use Status: Never used Tobacco Second Hand Smoke Exposure: No Advance Directives: No Advance Directives Information Provided: No Advance Directives Date on File: 07/27/20 service: Yes Current occupational status: retired Sexual orientation: Straight/Heterosexual Meds Allergies Allergy/AdvReac Type Severity Reaction Status Date / Time No Known Allergies Allergy Verified 01/25/21 06:43 [No Known Allergies*] Exam Exam Date and Time: April 09, 2022622 Airway Mallampati Class: II TM Dist: >3cm Neck ROM: Full Denture: Upper and Lower Loose/Missing/Broken Teeth: Yes Heart: rrr+[id number] Lungs: cta b/l Assessment and Plan Assessment Anesthesia Assessment: Anesthesia Plan Discussed and Chart Reviewed Final Anesthetic Review Family History of Problems with Anesthesia: No History of Problems with Anesthesia: No NPO: Yes ASA Class: III Final Preanesthetic Review: No Changes in Pt Med Stat, Meds/Allgs Chart Reviewed, Consent Obtained/Reviewed and Anes Risks/Benef Reviewed Patient Risk: Intermediate Procedure Risk: Intermediate Assessment/Block/Sedation in SS: Assess/Block/Sedation-SS Anesthetic Plan Anesthetic Plan: GA and Agree w/ Assess. and Plan Disposition: Standard PACU
[2022-04-09 06:48] LABS: COVID-19 Test Negative (Negative)
--- NOTE | 2022-04-09 07:38 | P.HPSUR_ITS ---
Pre-Procedural Eval Section A Date of Service: 04/09/22 Changes since office visit: Yes Cold of Flu in the past 2 weeks, Yes New Medical Problems, Yes Changes in Medication and Yes Patient answered all questions The History & Physical has been completed within 30 days and I have reviewed i t.: Yes Section B Chief Complaint: depression Allergies: Allergies Allergy/AdvReac Type Severity Reaction Status Date / Time No Known Allergies Allergy Verified 01/25/21 06:43 [No Known Allergies*] Plan I have reviewed the history and physical and performed a pertinent physical examination on my patient. No changes have occurred unless specified.
--- NOTE | 2022-04-09 21:43 | HO.ECTPROC ---
ECT Procedure Note Diagnosis/Treatment Date of Service: 04/09/22 Diagnosis: Major Depressive Disorder Previous ECT Date: 03/10/22 Treatment: Maintenance and Series Interval Clinical Notes: The patient reported stable mood, sporadic sleep disturbances, no new symptoms, no side effects with previous ECT. Has anxiety pre ect got esmolol 20 mg pre tx ECT Settings Device: THYMATRON DGx Electrode Placement: Right Unilateral Program/Pulse Width: 0.50 Energy Percent: 100 Seizure Duration By EEG (in seconds): 55 Medications Administration General Anesthetic: Etomidate (15) Muscle Relaxant: Succinylcholine (100) Ancillary Medications Anti-emetics: Zofran - Pre ECT Cardiovascular Medications: Esmolol (20 mg pre tx ) Airway Management Airway Management: Bag Mask Ventilation Treatment Recommendations No Changes Recommended: No change Notes: f/u tx in 4 weeks has been doing quite well Pt Tolerated Procedure w/o Issue: Yes
== END 2022-04-09 10:18 | disposition home or self-care (01) ==
PROVIDERS: Visit Provider Psychiatry & Neurology Psychiatry
PROC: (CPT 90870; principal; 2022-04-09 07:00)
DX: F33.2 Major depressive disorder, recurrent severe without psychotic features (principal); F41.1 Generalized anxiety disorder; I26.99 Other pulmonary embolism without acute cor pulmonale; Z79.01 Long term (current) use of anticoagulants; Z20.822 Contact with and (suspected) exposure to COVID-19
CPT/HCPCS: 87635; 90870; J0330; J2250; J2405

== ENCOUNTER 2022-04-30 14:35 | Outpatient (REF) | payer MEDICARE, OTHER, SELFPAY ==
[2022-04-30 15:08] LABS: MANUAL DIFF FLAG NO
[2022-04-30 15:48] LABS: Basophils Percent Auto 0.7 % (0-2); Eosinophils Absolute Auto 0.3 X10*3/uL (0.0-0.4); Eosinophils Percent Auto 4.3 % (0-4); Hematocrit 38.6 % (42.0-52.0); Hemoglobin 13.3 g/dl (14.0-18.0); Imm Gran Abs Auto 0.02 X10*3/uL (0.00-0.03); Imm Gran Pct Auto 0.3 % (0.0-0.4); Lymphocytes Absolute Auto 1.7 X10*3/uL (1.2-4.9); Lymphocytes Percent Auto 29.3 % (20-40); Mean Corpuscular HGB Conc 34.5 g/dl (31.0-36.0); Mean Corpuscular Hemoglobin 33.1 pg (27.0-33.0); Mean Platelet Volume 9.5 fL (9.4-12.4); Monocytes Absolute Auto 0.7 X10*3/uL (0.1-1.2); Monocytes Percent Auto 12.7 % (2-11); Neutrophils Absolute Auto 3.1 x10*3/uL (2.0-8.3); Neutrophils Percent Auto 52.7 % (45-73); Platelet Count 198 X10*3/uL (160-400); Red Blood Count 4.02 X10*6/uL (4.60-5.80); White Blood Count 5.8 X10*3/uL (4.8-10.8)
[2022-04-30 16:12] LABS: Alanine Aminotransferase 25 U/L (0-40); Albumin Level 4.4 g/dL (3.5-5.0); Alkaline Phosphatase 142 U/L (39-117); Anion Gap 12 (12-20); Aspartate Amino Transferase 21 U/L (5-37); Bilirubin Total 0.5 mg/dL (0.0-1.0); Blood Urea Nitrogen 22 mg/dL (9-16); Calcium 9.1 mg/dL (8.4-10.2); Carbon Dioxide 25 mmol/L (22-29); Chloride 111 mmol/L (96-108); Estimated Glomerular Filt Rate > 60; Glucose Random 122 mg/dL (60-115); Potassium 3.6 mmol/L (3.3-5.1); Sodium 144 mmol/L (135-145)
== END 2022-04-30 14:36 | disposition home or self-care (01) ==
LOC: HO.LAB 14:35
PROVIDERS: PCP Nurse Practitioner Family; Visit Provider Psychiatry & Neurology Psychiatry
DX: Z02.2 Encounter for examination for admission to residential institution (principal)
CPT/HCPCS: 36415; 80053; 85025

== ENCOUNTER 2022-05-07 05:58 | Day surgery (SDC) | payer MEDICARE, OTHER, SELFPAY ==
[2022-05-07] VITALS (8 sets, daily range): BP systolic 128–168; BP diastolic 79–99; PULSE 98–156; RESP 16–21; TEMP 36.2–37.3; O2SAT 94–99; BMI 25.7
--- NOTE | 2022-05-07 06:37 | P.CONAN_ITS ---
FORMERLY [facility] Active Problems Active Problems: All Active Problems (Updated 08/21/21 @ 09:05 by Leila Bryson APRN) Major depressive disorder, recurrent, severe with psychotic features (Acute) Depression (Acute) Physical deconditioning (Acute) Preoperative cardiovascular examination (Acute) Anemia (Acute) GERD (gastroesophageal reflux disease) (Acute) Past Medical History Medical History COVID-19 vaccine administered Dementia Depression Diverticulitis of colon with perforation GERD (gastroesophageal reflux disease) History of electroconvulsive therapy HTN (hypertension) Hyperlipidemia Major depressive disorder, recurrent, severe with psychotic features Pulmonary embolism SVT (supraventricular tachycardia) Family History Family History Brother Blood clot in vein Other No history of cardiac disorder Family history of problems with anesthesia: No Surgical History Surgical History H/O colonoscopy H/O hernia repair History of colostomy reversal History of esophagogastroduodenoscopy (EGD) Status post Paula's procedure History of Problems with Anesthesia: No Social History Social History Household Members: Other Housing: Assisted Living Facility Are you a primary health care social worker to a significant other at home: No Do you presently have visiting nurse or other home services: No Alcohol intake: former Patient Tobacco Use Status: Never used Tobacco Second Hand Smoke Exposure: No Advance Directives: Yes Advance Directives on File: Yes Advance Directives Date on File: 07/27/20 service: Yes Current occupational status: retired Sexual orientation: Straight/Heterosexual Meds Allergies Allergy/AdvReac Type Severity Reaction Status Date / Time No Known Allergies Allergy Verified 01/25/21 06:43 [No Known Allergies*] Active Medications: Current Medications Lactated Ringer's (Lr) 1,000 mls @ 50 mls/hr IVCONT .Q20H ROMMEL Exam Exam Date and Time: May 07, 2022 0637 Airway Mallampati Class: II TM Dist: >3cm Neck ROM: Full Denture: Upper Heart: rrr Lungs: cta Assessment and Plan Assessment Anesthesia Assessment: Anesthesia Plan Discussed and Chart Reviewed Final Anesthetic Review Family History of Problems with Anesthesia: No History of Problems with Anesthesia: No NPO: Yes ASA Class: III Final Preanesthetic Review: No Changes in Pt Med Stat, Meds/Allgs Chart Reviewed and Consent Obtained/Reviewed Patient Risk: Intermediate Procedure Risk: Intermediate Anesthetic Plan Anesthetic Plan: GA Disposition: Standard PACU
[2022-05-07 06:40] LABS: COVID-19 Test Negative (Negative)
--- NOTE | 2022-05-07 07:09 | MHC.SHP ---
Pre-Procedural Eval Section A Date of Service: 05/07/22 Changes since office visit: Yes Patient answered all questions; No Cold of Flu in the past 2 weeks, No New Medical Problems and No Changes in Medication The History & Physical has been completed within 30 days and I have reviewed it.: Yes Section B Chief Complaint: depression Allergies: Allergies Allergy/AdvReac Type Severity Reaction Status Date / Time No Known Allergies Allergy Verified 01/25/21 06:43 [No Known Allergies*] Plan I have reviewed the history and physical and performed a pertinent physical examination on my patient. No changes have occurred unless specified.
--- NOTE | 2022-05-07 07:09 | HO.ECTPROC ---
ECT Procedure Note Diagnosis/Treatment Date of Service: 05/07/22 Diagnosis: Major Depressive Disorder Treatment: Maintenance Interval Clinical Notes: The patient has been doing well case reviewed with patient's daughter consent obtained patient in agreement he has been generally doing well which he acknowledges ECT Settings Device: THYMATRON DGx Electrode Placement: Right Unilateral Program/Pulse Width: 0.50 Energy Percent: 100 Seizure Duration By EEG (in seconds): 52 Ancillary Medications Anti-emetics: Zofran - Pre ECT Cardiovascular Medications: Esmolol (20) Miscillaneous Medications: Midazolam (2 mg post) Airway Management Airway Management: Bag Mask Ventilation Treatment Recommendations No Changes Recommended: No change Pt Tolerated Procedure w/o Issue: Yes
== END 2022-05-07 09:16 | disposition home or self-care (01) ==
PROVIDERS: PCP Nurse Practitioner Family; Visit Provider Psychiatry & Neurology Psychiatry
PROC: (CPT 90870; principal; 2022-05-07 07:00)
DX: F33.2 Major depressive disorder, recurrent severe without psychotic features (principal); K21.9 Gastro-esophageal reflux disease without esophagitis; E78.5 Hyperlipidemia, unspecified; I26.99 Other pulmonary embolism without acute cor pulmonale; Z79.01 Long term (current) use of anticoagulants; Z85.46 Personal history of malignant neoplasm of prostate; Z79.02 Long term (current) use of antithrombotics/antiplatelets; Z79.899 Other long term (current) drug therapy; Z20.822 Contact with and (suspected) exposure to COVID-19
CPT/HCPCS: 87635; 90870; J0330; J2250; J2405

== ENCOUNTER 2022-06-04 05:54 | Day surgery (SDC) | payer MEDICARE, OTHER, SELFPAY ==
--- NOTE | 2022-06-04 06:45 | HO.ANESPROP2 ---
FORMERLY [facility] Active Problems Active Problems: All Active Problems (Updated 08/21/21 @ 09:05 by Leila Bryson APRN) Major depressive disorder, recurrent, severe with psychotic features (Acute) Depression (Acute) Physical deconditioning (Acute) Preoperative cardiovascular examination (Acute) Anemia (Acute) GERD (gastroesophageal reflux disease) (Acute) Past Medical History Medical History COVID-19 vaccine administered Dementia Depression Diverticulitis of colon with perforation GERD (gastroesophageal reflux disease) History of electroconvulsive therapy HTN (hypertension) Hyperlipidemia Major depressive disorder, recurrent, severe with psychotic features Pulmonary embolism SVT (supraventricular tachycardia) Family History Family History Brother Blood clot in vein Other No history of cardiac disorder Family history of problems with anesthesia: No Surgical History Surgical History H/O colonoscopy H/O hernia repair History of colostomy reversal History of esophagogastroduodenoscopy (EGD) Status post Paula's procedure History of Problems with Anesthesia: No Social History Social History Household Members: Other Housing: Assisted Living Facility Are you a primary health care sanitary technician to a significant other at home: No Do you presently have visiting nurse or other home services: No Alcohol intake: former Patient Tobacco Use Status: Never used Tobacco Second Hand Smoke Exposure: No Advance Directives: Yes Advance Directives on File: Yes Advance Directives Date on File: 07/27/20 service: Yes Current occupational status: retired Sexual orientation: Straight/Heterosexual Meds Allergies Allergy/AdvReac Type Severity Reaction Status Date / Time No Known Allergies Allergy Verified 01/25/21 06:43 [No Known Allergies*] Exam Exam Date and Time: June 04, 2022 0645 Airway Mallampati Class: II TM Dist: >3cm Neck ROM: Full Denture: Upper Heart: rrr Lungs: cta Assessment and Plan Assessment Anesthesia Assessment: Anesthesia Plan Discussed and Chart Reviewed Final Anesthetic Review Family History of Problems with Anesthesia: No History of Problems with Anesthesia: No NPO: Yes ASA Class: III Final Preanesthetic Review: No Changes in Pt Med Stat, Meds/Allgs Chart Reviewed and Consent Obtained/Reviewed Patient Risk: Intermediate Procedure Risk: Intermediate Anesthetic Plan Anesthetic Plan: GA Disposition: Standard PACU
[2022-06-04 06:53] LABS: COVID-19 Test Negative (Negative); IDNOW Serial# 9DB6401D
[2022-06-04 07:08] VITALS: BP 122/87; PULSE 108; RESP 18; TEMP 37.1; O2SAT 96; BMI 25.7
--- NOTE | 2022-06-04 07:53 | MHC.SHP ---
Pre-Procedural Eval Section A Date of Service: 06/04/22 The patient is an INPATIENT: No Changes since office visit: Yes Patient answered all questions; No Cold of Flu in the past 2 weeks, No New Medical Problems and No Changes in Medication The History & Physical has been completed within 30 days and I have reviewed it.: No Section B Chief Complaint: depression Details of Present Illness: recurrent depression Relevant Family History (Specify if Yes): No Relevant Social History: None Present Medications: see Short Stay Collaborative assessment Medical History: Significant History (gi bleed diverticulitis PE) History of Previous Operations: No relevant previous surgery (ect) Allergies: Allergies Allergy/AdvReac Type Severity Reaction Status Date / Time No Known Allergies Allergy Verified 01/25/21 06:43 [No Known Allergies*] Review of Systems Sugical H&P ROS: Negative: Constitution, Cardiovascular and Respiratory Exam Surgical H&P Exam: Normal: Heart (tacycardia regular no murmur) and Normal: Lungs (clear) Plan Diagnosis/Plan: Unchanged I have reviewed the history and physical and performed a pertinent physical examination on my patient. No changes have occurred unless specified.
--- NOTE | 2022-06-04 08:12 | HO.ECTPROC ---
ECT Procedure Note Diagnosis/Treatment Date of Service: 06/04/22 Diagnosis: Major Depressive Disorder (hx psychotic depression ) Previous ECT Date: 05/07/22 Treatment: Maintenance Interval Clinical Notes: The patient has been doing quite stable full affect ECT Settings Device: THYMATRON DGx Electrode Placement: Right Unilateral Program/Pulse Width: 0.50 Energy Percent: 100 Seizure Duration By EEG (in seconds): 38 Medications Administration General Anesthetic: Etomidate (15) Muscle Relaxant: Succinylcholine (100) Ancillary Medications Anti-emetics: Zofran - Pre ECT Cardiovascular Medications: Esmolol (20) Miscillaneous Medications: Midazolam (2 mg post) Airway Management Airway Management: Bag Mask Ventilation Treatment Recommendations No Changes Recommended: No change Pt Tolerated Procedure w/o Issue: Yes
[2022-06-04 08:18] VITALS: BP 154/90; PULSE 109; RESP 12; TEMP 36.7; O2SAT 99
[2022-06-04 08:23] VITALS: BP 137/86; PULSE 100; RESP 16; O2SAT 100
[2022-06-04 08:28] VITALS: BP 125/85; PULSE 102; RESP 18; O2SAT 99
[2022-06-04 08:37] VITALS: BP 116/78; PULSE 101; RESP 18; O2SAT 98
[2022-06-04 08:53] VITALS: BP 108/72; PULSE 98; RESP 18; TEMP 36.6; O2SAT 96
== END 2022-06-04 08:57 | disposition home or self-care (01) ==
PROVIDERS: PCP Nurse Practitioner Family; Visit Provider Psychiatry & Neurology Psychiatry
PROC: (CPT 90870; principal; 2022-06-04 07:00)
DX: F33.3 Major depressive disorder, recurrent, severe with psychotic symptoms (principal); D64.9 Anemia, unspecified; K21.9 Gastro-esophageal reflux disease without esophagitis; I10 Essential (primary) hypertension; I47.1 Supraventricular tachycardia; I26.99 Other pulmonary embolism without acute cor pulmonale; Z79.01 Long term (current) use of anticoagulants; Z79.899 Other long term (current) drug therapy; Z20.822 Contact with and (suspected) exposure to COVID-19; Z98.890 Other specified postprocedural states
CPT/HCPCS: 87635; 90870; J0330; J2250; J2405

== ENCOUNTER 2022-07-02 05:51 | Day surgery (SDC) | payer MEDICARE, OTHER, SELFPAY ==
[2022-07-02] VITALS (8 sets, daily range): BP systolic 128–174; BP diastolic 52–97; PULSE 95–117; RESP 12–20; TEMP 36.7–36.9; O2SAT 95–97; BMI 25.7
[2022-07-02 06:48] LABS: COVID-19 Test Negative (Negative); IDNOW Serial# 16C4AD1C
--- NOTE | 2022-07-02 06:58 | HO.ECTPROC ---
ECT Procedure Note Diagnosis/Treatment Date of Service: 07/03/22 Diagnosis: Major Depressive Disorder Treatment: Maintenance Interval Clinical Notes: pt with full affect pleasant has been stable ECT Settings Device: THYMATRON DGx Electrode Placement: Right Unilateral Program/Pulse Width: 0.50 Energy Percent: 100 Seizure Duration By EEG (in seconds): 54 Medications Administration General Anesthetic: Etomidate Muscle Relaxant: Succinylcholine Ancillary Medications Cardiovascular Medications: Esmolol (post ) Airway Management Airway Management: Bag Mask Ventilation Treatment Recommendations Notes: consider labetolol instead of esmolol for control bp and pulse Pt Tolerated Procedure w/o Issue: Yes
--- NOTE | 2022-07-02 06:58 | MHC.SHP ---
Pre-Procedural Eval Section A Date of Service: 07/02/22 Section B Chief Complaint: depression Details of Present Illness: recurrent depression Relevant Social History: None Present Medications: see Short Stay Collaborative assessment History of Previous Operations: Relevant previous surgery/procedure and date(s) (ect colectomy) Allergies: Allergies Allergy/AdvReac Type Severity Reaction Status Date / Time No Known Allergies Allergy Verified 01/25/21 06:43 [No Known Allergies*] Review of Systems Sugical H&P ROS: Negative: Constitution, Cardiovascular, Respiratory and Psychiatric Exam Surgical H&P Exam: Normal: Heart and Normal: Lungs Plan Diagnosis/Plan: Unchanged I have reviewed the history and physical and performed a pertinent physical examination on my patient. No changes have occurred unless specified.
--- NOTE | 2022-07-02 08:17 | HO.ANESPROP2 ---
[facility] Active Problems Active Problems: All Active Problems (Updated 08/21/21 @ 09:05 by Leila Bryson APRN) Major depressive disorder, recurrent, severe with psychotic features (Acute) Depression (Acute) Physical deconditioning (Acute) Preoperative cardiovascular examination (Acute) Anemia (Acute) GERD (gastroesophageal reflux disease) (Acute) Past Medical History Medical History COVID-19 vaccine administered Dementia Depression Diverticulitis of colon with perforation GERD (gastroesophageal reflux disease) History of electroconvulsive therapy HTN (hypertension) Hyperlipidemia Major depressive disorder, recurrent, severe with psychotic features Pulmonary embolism SVT (supraventricular tachycardia) Family History Family History Brother Blood clot in vein Other No history of cardiac disorder Family history of problems with anesthesia: No Surgical History Surgical History H/O colonoscopy H/O hernia repair History of colostomy reversal History of esophagogastroduodenoscopy (EGD) Status post Paula's procedure History of Problems with Anesthesia: No Social History Social History Household Members: Other Housing: Assisted Living Facility Are you a primary managed care director to a significant other at home: No Do you presently have visiting nurse or other home services: No Alcohol intake: former Patient Tobacco Use Status: Never used Tobacco Second Hand Smoke Exposure: No Advance Directives: Yes Advance Directives on File: Yes Advance Directives Date on File: 07/27/20 service: Yes Current occupational status: retired Sexual orientation: Straight/Heterosexual Meds Allergies Allergy/AdvReac Type Severity Reaction Status Date / Time No Known Allergies Allergy Verified 01/25/21 06:43 [No Known Allergies*] Exam Exam Date and Time: July 02, 2022 0817 Height,Weight and Vital Signs: Height 5 ft 11 in Weight 83.915 kg Last Vital Signs Temp 98.5 F 07/02/22 07:25 Pulse 100 07/02/22 08:10 Resp 17 07/02/22 08:10 BP 139/88 07/02/22 08:10 Pulse Ox 95 07/02/22 08:10 O2 Del Method 07/02/22 08:10 O2 Flow Rate 2 07/02/22 07:40 FiO2 35 07/02/22 07:55 Pertinent Lab Results Pertinent Lab Results: Laboratory Tests 07/02/22 06:15 COVID-19 ([facility]) Negative COVID-19 Clin Com See Note Airway Mallampati Class: III TM Dist: >3cm Loose/Missing/Broken Teeth: Yes, Upper and Lower Assessment and Plan Assessment Anesthesia Assessment: Anesthesia Plan Discussed and Chart Reviewed Final Anesthetic Review Family History of Problems with Anesthesia: No History of Problems with Anesthesia: No NPO: Yes ASA Class: III Final Preanesthetic Review: No Changes in Pt Med Stat, Meds/Allgs Chart Reviewed, Consent Obtained/Reviewed and Anes Risks/Benef Reviewed Patient Risk: Intermediate Procedure Risk: Intermediate Anesthetic Plan Anesthetic Plan: GA Disposition: Standard PACU
== END 2022-07-02 09:07 | disposition home or self-care (01) ==
PROVIDERS: PCP Nurse Practitioner Family; Visit Provider Psychiatry & Neurology Psychiatry
PROC: (CPT 90870; principal; 2022-07-02 07:00)
DX: F33.3 Major depressive disorder, recurrent, severe with psychotic symptoms (principal); F03.90 Unspecified dementia, unspecified severity, without behavioral disturbance, psychotic disturbance, mood disturbance, and anxiety; I10 Essential (primary) hypertension; E78.5 Hyperlipidemia, unspecified; Z86.711 Personal history of pulmonary embolism; Z79.01 Long term (current) use of anticoagulants; Z20.822 Contact with and (suspected) exposure to COVID-19
CPT/HCPCS: 87635; 90870; J0330; J2250; J2405

== ENCOUNTER 2022-07-30 05:52 | Day surgery (SDC) | payer MEDICARE, OTHER, SELFPAY ==
[2022-07-30] VITALS (8 sets, daily range): BP systolic 117–132; BP diastolic 71–89; PULSE 103–133; RESP 16–18; TEMP 36.4–36.7; O2SAT 94–96; BMI 25.7
[2022-07-30 06:37] LABS: COVID-19 Test Negative (Negative)
--- NOTE | 2022-07-30 06:37 | ECG_ITS ---
Test Reason : rapid HR Blood Pressure : / mmHG Vent. Rate : 127 BPM Atrial Rate : 127 BPM P-R Int : 120 ms QRS Dur : 094 ms QT Int : 372 ms P-R-T Axes : 000 -50 017 degrees QTc Int : 540 ms Sinus tachycardia with Premature atrial complexes with Aberrant conduction Left anterior fascicular block Nonspecific ST abnormality Abnormal ECG When compared with ECG of 10-MAR-2022 07:55, Premature ventricular complexes are no longer Present Aberrant conduction is now Present ST more depressed Lateral leads Referred By: Cooper Molina Electronically Signed By:BEE CRENSHAW MD
--- NOTE | 2022-07-30 07:36 | P.CONAN_ITS ---
[facility] Active Problems Active Problems: All Active Problems (Updated 08/21/21 @ 09:05 by Leila Bryson APRN) Major depressive disorder, recurrent, severe with psychotic features (Acute) Depression (Acute) Physical deconditioning (Acute) Preoperative cardiovascular examination (Acute) Anemia (Acute) GERD (gastroesophageal reflux disease) (Acute) Past Medical History Medical History COVID-19 vaccine administered Dementia Depression Diverticulitis of colon with perforation GERD (gastroesophageal reflux disease) History of electroconvulsive therapy HTN (hypertension) Hyperlipidemia Major depressive disorder, recurrent, severe with psychotic features Pulmonary embolism SVT (supraventricular tachycardia) Family History Family History Brother Blood clot in vein Other No history of cardiac disorder Family history of problems with anesthesia: No Surgical History Surgical History H/O colonoscopy H/O hernia repair History of colostomy reversal History of esophagogastroduodenoscopy (EGD) Status post Paula's procedure History of Problems with Anesthesia: No Social History Social History Household Members: Other Housing: Assisted Living Facility Are you a primary caregiver assisted living to a significant other at home: No Do you presently have visiting nurse or other home services: No Alcohol intake: former Patient Tobacco Use Status: Never used Tobacco Second Hand Smoke Exposure: No Are you DNR?: No Advance Directives: Yes Advance Directives on File: Yes Advance Directives Date on File: 07/27/20 service: Yes Current occupational status: retired Sexual orientation: Straight/Heterosexual Meds Allergies Allergy/AdvReac Type Severity Reaction Status Date / Time No Known Allergies Allergy Verified 01/25/21 06:43 [No Known Allergies*] Exam Exam Date and Time: July 30, 2022 0736 Height,Weight and Vital Signs: Height 5 ft 11 in Weight 83.915 kg Last Vital Signs Temp 97.6 F 07/30/22 06:53 Pulse 127 H 07/30/22 06:53 Resp 18 07/30/22 06:53 BP 123/83 07/30/22 06:53 Pulse Ox 94 07/30/22 06:53 O2 Del Method 10/26/22 06:53 Pertinent Lab Results Pertinent Lab Results: Laboratory Tests 07/30/22 06:07 COVID-19 ([facility]) Negative COVID-19 Clin Com See Note Airway Mallampati Class: II TM Dist: >3cm Neck ROM: Full Heart: tachy rr Lungs: rales at bases Assessment and Plan Assessment Anesthesia Assessment: Anesthesia Plan Discussed and Chart Reviewed Final Anesthetic Review Family History of Problems with Anesthesia: No History of Problems with Anesthesia: No NPO: Yes ASA Class: III Final Preanesthetic Review: No Changes in Pt Med Stat, Meds/Allgs Chart Reviewed and Consent Obtained/Reviewed Patient Risk: Intermediate Procedure Risk: Intermediate Anesthetic Plan Anesthetic Plan: GA (Pt tavhynlow 130, frequently tachy in 120s mention of rectal bleeding with history istat hgb12.6, given fluids needing urination, ekg sinus tachy, discuss with team will proceed sats 97) Disposition: Standard PACU
--- NOTE | 2022-07-30 07:36 | MHC.SHP ---
Pre-Procedural Eval Section A Date of Service: 07/30/22 Changes since office visit: Yes Patient answered all questions; No Cold of Flu in the past 2 weeks, No New Medical Problems and No Changes in Medication Section B Chief Complaint: depression Details of Present Illness: recurrent depression Relevant Social History: None Present Medications: see Short Stay Collaborative assessment Medical History: Significant History (ect gi bleed hx p embolism) Allergies: Allergies Allergy/AdvReac Type Severity Reaction Status Date / Time No Known Allergies Allergy Verified 01/25/21 06:43 [No Known Allergies*] Review of Systems Sugical H&P ROS: Negative: Constitution, Cardiovascular, Respiratory and Psychiatric Exam Surgical H&P Exam: Significant Findings: Heart (reg rate tachycardic sinus ) and Significant Findings: Lungs (some rales nl o2 ) Plan Diagnosis/Plan: Unchanged I have reviewed the history and physical and performed a pertinent physical examination on my patient. No changes have occurred unless specified.
[2022-07-30 07:54] LABS: Base Excess Bedside Calculated 0 mmol/L (-3-3); Glucose, i-STAT 136 mg/dL (60-115); HCO3 Bedside Calculated 25 mmol/L (22-26); Hematocrit Bedside 37 %PCV (42-52); Hemoglobin Bedside 12.6 g/dL (14.0-18.0); Potassium Bedside 3.3 mmol/L (3.3-5.1); Sodium Bedside 144 mmol/L (135-145); TCO2 Bedside 27 mmol/L (24-29); pCO2 Bedside 43 mmhg (35-48); pH Bedside 7.38 (7.35-7.45)
--- NOTE | 2022-07-30 08:15 | HO.ECTPROC ---
ECT Procedure Note Diagnosis/Treatment Date of Service: 07/30/22 Diagnosis: Major Depressive Disorder Previous ECT Date: 07/02/22 Treatment: Maintenance Interval Clinical Notes: stable full affect no new med problems sinus tach pre tx ECT Settings Device: THYMATRON DGx Electrode Placement: Bifrontal Program/Pulse Width: 0.50 Energy Percent: 100 Seizure Duration By EEG (in seconds): 74 Medications Administration General Anesthetic: Etomidate (16) Muscle Relaxant: Succinylcholine (100) Ancillary Medications Anti-emetics: Zofran - Pre ECT Cardiovascular Medications: Esmolol (10 +10+20+10 post tachycardia) Miscillaneous Medications: Midazolam (2 mg post) Airway Management Airway Management: Bag Mask Ventilation Treatment Recommendations No Changes Recommended: No change Notes: f/u tx aug 22 Pt Tolerated Procedure w/o Issue: Yes
[2022-07-30 10:42] LABS: pO2 Bedside < 50 mmhg (83-108)
== END 2022-07-30 09:22 | disposition home or self-care (01) ==
PROVIDERS: PCP Nurse Practitioner Family; Visit Provider Psychiatry & Neurology Psychiatry
PROC: (CPT 90870; principal; 2022-07-30 07:00)
DX: F33.2 Major depressive disorder, recurrent severe without psychotic features (principal); E78.2 Mixed hyperlipidemia; I26.99 Other pulmonary embolism without acute cor pulmonale; Z79.01 Long term (current) use of anticoagulants; Z79.899 Other long term (current) drug therapy; Z20.822 Contact with and (suspected) exposure to COVID-19
CPT/HCPCS: 87635; 90870; 93005; J0330; J2250; J2405

== ENCOUNTER 2022-08-21 08:26 | Outpatient (REF) | payer MEDICARE, OTHER, SELFPAY ==
[2022-08-21 08:46] LABS: MANUAL DIFF FLAG NO
[2022-08-21 09:19] LABS: Basophils Percent Auto 0.5 % (0-2); Eosinophils Absolute Auto 0.2 X10*3/uL (0.0-0.4); Hematocrit 41.5 % (42.0-52.0); Imm Gran Abs Auto 0.02 X10*3/uL (0.00-0.03); Imm Gran Pct Auto 0.4 % (0.0-0.4); Lymphocytes Absolute Auto 1.7 X10*3/uL (1.2-4.9); Lymphocytes Percent Auto 30.3 % (20-40); Mean Corpuscular HGB Conc 33.7 g/dl (31.0-36.0); Mean Corpuscular Hemoglobin 32.5 pg (27.0-33.0); Mean Corpuscular Volume 96.3 fL (80.0-98.0); Mean Platelet Volume 9.6 fL (9.4-12.4); Monocytes Absolute Auto 0.6 X10*3/uL (0.1-1.2); Monocytes Percent Auto 10.2 % (2-11); Neutrophils Absolute Auto 3.1 x10*3/uL (2.0-8.3); Neutrophils Percent Auto 54.6 % (45-73); Platelet Count 188 X10*3/uL (160-400); Red Blood Count 4.31 X10*6/uL (4.60-5.80); Red Cell Distribution Width 13.2 % (11.0-16.0); White Blood Count 5.7 X10*3/uL (4.8-10.8)
[2022-08-21 09:28] LABS: Estimated Average Glucose 120 mg/dL; Hemoglobin A1c % 5.8 %
[2022-08-21 09:48] LABS: Alanine Aminotransferase 23 U/L (0-40); Albumin Level 4.4 g/dL (3.5-5.0); Alkaline Phosphatase 123 U/L (39-117); Anion Gap 13 (12-20); Aspartate Amino Transferase 21 U/L (5-37); Bilirubin Total 0.7 mg/dL (0.0-1.0); Blood Urea Nitrogen 22 mg/dL (9-16); Calcium 9.5 mg/dL (8.4-10.2); Carbon Dioxide 25 mmol/L (22-29); Chloride 111 mmol/L (96-108); Estimated Glomerular Filt Rate 58; Glucose Random 136 mg/dL (60-115); Potassium 3.7 mmol/L (3.3-5.1); Sodium 145 mmol/L (135-145); Total Protein 6.9 g/dL (6.5-8.0)
== END 2022-08-21 08:27 | disposition home or self-care (01) ==
LOC: HO.LAB 08:26
PROVIDERS: PCP Nurse Practitioner Family; Visit Provider Nurse Practitioner Family
DX: Z01.818 Encounter for other preprocedural examination (principal); R73.01 Impaired fasting glucose
CPT/HCPCS: 36415; 80053; 83036; 85025

== ENCOUNTER 2022-08-22 07:40 | Day surgery (SDC) | payer MEDICARE, OTHER, SELFPAY ==
[2022-08-22] VITALS (7 sets, daily range): BP systolic 137–157; BP diastolic 82–96; PULSE 107–122; RESP 16–20; TEMP 36.5–37.2; O2SAT 96–99; BMI 26.5
--- NOTE | 2022-08-22 08:19 | HO.ANESPROP2 ---
[facility] Active Problems Active Problems: All Active Problems (Updated 08/21/21 @ 09:05 by Leila Bryson APRN) Major depressive disorder, recurrent, severe with psychotic features (Acute) Depression (Acute) Physical deconditioning (Acute) Preoperative cardiovascular examination (Acute) Anemia (Acute) GERD (gastroesophageal reflux disease) (Acute) Past Medical History Medical History COVID-19 vaccine administered Dementia Depression Diverticulitis of colon with perforation GERD (gastroesophageal reflux disease) History of electroconvulsive therapy HTN (hypertension) Hyperlipidemia Major depressive disorder, recurrent, severe with psychotic features Pulmonary embolism SVT (supraventricular tachycardia) Family History Family History Brother Blood clot in vein Other No history of cardiac disorder Family history of problems with anesthesia: No Surgical History Surgical History H/O colonoscopy H/O hernia repair History of colostomy reversal History of esophagogastroduodenoscopy (EGD) Status post Paula's procedure History of Problems with Anesthesia: No Social History Social History Household Members: Other Housing: Assisted Living Facility Are you a primary healthcare business analyst to a significant other at home: No Do you presently have visiting nurse or other home services: No Alcohol intake: former Patient Tobacco Use Status: Never used Tobacco Second Hand Smoke Exposure: No Advance Directives: No Advance Directives Information Provided: Yes Advance Directives Date on File: 07/27/20 service: Yes Current occupational status: retired Sexual orientation: Straight/Heterosexual Meds Allergies Allergy/AdvReac Type Severity Reaction Status Date / Time No Known Allergies Allergy Verified 01/25/21 06:43 [No Known Allergies*] Exam Exam Date and Time: August 22, 2022 0819 Airway Mallampati Class: II TM Dist: >3cm Neck ROM: Full Heart: tachy rr Lungs: cta Assessment and Plan Assessment Anesthesia Assessment: Anesthesia Plan Discussed Final Anesthetic Review Family History of Problems with Anesthesia: No History of Problems with Anesthesia: No NPO: Yes ASA Class: III Final Preanesthetic Review: No Changes in Pt Med Stat, Meds/Allgs Chart Reviewed and Consent Obtained/Reviewed Patient Risk: Intermediate Procedure Risk: Intermediate Anesthetic Plan Anesthetic Plan: GA Disposition: Standard PACU
[2022-08-22 08:33] LABS: COVID-19 Test Negative (Negative); IDNOW Serial# 16C4AD1C
--- NOTE | 2022-08-22 08:52 | MHC.SHP ---
Pre-Procedural Eval Section A Date of Service: 08/22/22 Changes since office visit: Yes Patient answered all questions; No Cold of Flu in the past 2 weeks, No New Medical Problems and No Changes in Medication Section B Chief Complaint: depression Details of Present Illness: recurrent depression Relevant Social History: None Present Medications: see Short Stay Collaborative assessment Medical History: Significant History (ect gi bleed hx p embolism) Allergies: Allergies Allergy/AdvReac Type Severity Reaction Status Date / Time No Known Allergies Allergy Verified 01/25/21 06:43 [No Known Allergies*] Review of Systems Sugical H&P ROS: Negative: Constitution, Cardiovascular, Respiratory and Psychiatric Exam Surgical H&P Exam: Normal: Lungs and Significant Findings: Heart (reg rate tachycardic sinus ) Plan Diagnosis/Plan: Unchanged I have reviewed the history and physical and performed a pertinent physical examination on my patient. No changes have occurred unless specified.
--- NOTE | 2022-08-22 09:15 | HO.ECTPROC ---
ECT Procedure Note Diagnosis/Treatment Date of Service: 08/22/22 Diagnosis: Major Depressive Disorder Previous ECT Date: 07/30/22 Treatment: Maintenance Interval Clinical Notes: Patient generally remains in good spirits informed consent obtained from healthcare proxy no reported new medical concerns ECT Settings Device: THYMATRON DGx Electrode Placement: Bifrontal Program/Pulse Width: 0.50 Energy Percent: 100 Seizure Duration By EEG (in seconds): 58 Medications Administration General Anesthetic: Etomidate (16) Muscle Relaxant: Succinylcholine (100) Ancillary Medications Anti-emetics: Zofran - Pre ECT Cardiovascular Medications: Esmolol (20 mg pre) Miscillaneous Medications: Midazolam (2 mg post) Airway Management Airway Management: Bag Mask Ventilation Treatment Recommendations No Changes Recommended: No change Notes: f/u in 1 month has done well with maintenance treatment Pt Tolerated Procedure w/o Issue: Yes
== END 2022-08-22 10:30 | disposition home or self-care (01) ==
PROVIDERS: PCP Nurse Practitioner Family; Visit Provider Psychiatry & Neurology Psychiatry
PROC: (CPT 90870; principal; 2022-08-22 09:00)
DX: F33.2 Major depressive disorder, recurrent severe without psychotic features (principal); E78.5 Hyperlipidemia, unspecified; K21.9 Gastro-esophageal reflux disease without esophagitis; Z86.711 Personal history of pulmonary embolism; Z79.01 Long term (current) use of anticoagulants; Z79.899 Other long term (current) drug therapy; Z20.822 Contact with and (suspected) exposure to COVID-19
CPT/HCPCS: 87635; 90870; J0330; J2250; J2405

== ENCOUNTER 2022-09-24 11:02 | Day surgery (SDC) | payer MEDICARE, OTHER, SELFPAY ==
[2022-09-24] VITALS (7 sets, daily range): BP systolic 121–160; BP diastolic 56–96; PULSE 106–138; RESP 14–22; TEMP 36.3–37; O2SAT 93–99; BMI 25.7
--- NOTE | 2022-09-24 | ECG_ITS ---
Test Reason : med check Blood Pressure : / mmHG Vent. Rate : 107 BPM Atrial Rate : 107 BPM P-R Int : 188 ms QRS Dur : 094 ms QT Int : 362 ms P-R-T Axes : 007 -35 031 degrees QTc Int : 483 ms Sinus tachycardia Left axis deviation Nonspecific ST abnormality Abnormal ECG When compared with ECG of 30-JUL-2022 06:47, Aberrant conduction is no longer Present Referred By: Cooper Molina Electronically Signed By:Noah Fitzgerald
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
[2022-09-24 11:53] LABS: COVID-19 Test Negative (Negative); IDNOW Serial# 16C4AD1C
--- NOTE | 2022-09-24 12:17 | MHC.SHP ---
Pre-Procedural Eval Section A Date of Service: 09/24/22 Changes since office visit: Yes Patient answered all questions; No Cold of Flu in the past 2 weeks, No New Medical Problems and No Changes in Medication The History & Physical has been completed within 30 days and I have reviewed it.: No Section B Chief Complaint: depression Details of Present Illness: recurrent depression Relevant Social History: None Present Medications: see Short Stay Collaborative assessment Medical History: Significant History (ect gi bleed hx p embolism) Allergies: Allergies Allergy/AdvReac Type Severity Reaction Status Date / Time No Known Allergies Allergy Verified 01/25/21 06:43 [No Known Allergies*] Review of Systems Sugical H&P ROS: Negative: Constitution, Cardiovascular and Psychiatric and Yes, Specify: Respiratory (some sob going up stairs) Exam Surgical H&P Exam: Normal: Heart (reg rate tachycardic sinus ) and Normal: Lungs Plan Diagnosis/Plan: Unchanged I have reviewed the history and physical and performed a pertinent physical examination on my patient. No changes have occurred unless specified. Time Spent With Patient Time: Total time managing care of this patient today ____ minutes.
--- NOTE | 2022-09-24 12:32 | HO.ECTPROC ---
ECT Procedure Note Diagnosis/Treatment Date of Service: 09/24/22 Diagnosis: Major Depressive Disorder Previous ECT Date: 08/22/22 Treatment: Maintenance Interval Clinical Notes: Patient generally remains in good spirits informed consent obtained from healthcare proxy no reported new medical concerns some sob mild with stairs x yrs no cp Time: Total time managing care of this patient today ____ minutes. ECT Settings Device: THYMATRON DGx Electrode Placement: Bifrontal Program/Pulse Width: 0.50 Energy Percent: 100 Seizure Duration By EEG (in seconds): 67 Medications Administration General Anesthetic: Etomidate (16) Muscle Relaxant: Succinylcholine (100) Ancillary Medications Anti-emetics: Zofran - Pre ECT Cardiovascular Medications: Esmolol (20 mg pre 10 mg after stimulation ) Miscillaneous Medications: Midazolam (2 mg post) Airway Management Airway Management: Bag Mask Ventilation Treatment Recommendations No Changes Recommended: No change Notes: f/u in approx 1 month has done well with maintenance treatment doing better ? BF Pt Tolerated Procedure w/o Issue: Yes
[2022-09-24 13:06] LABS: MANUAL DIFF FLAG NO
[2022-09-24 13:08] LABS: Basophils Percent Auto 0.3 % (0-2); Eosinophils Absolute Auto 0.1 X10*3/uL (0.0-0.4); Eosinophils Percent Auto 0.8 % (0-4); Hematocrit 36.2 % (42.0-52.0); Hemoglobin 12.5 g/dl (14.0-18.0); Imm Gran Abs Auto 0.02 X10*3/uL (0.00-0.03); Imm Gran Pct Auto 0.3 % (0.0-0.4); Lymphocytes Absolute Auto 0.8 X10*3/uL (1.2-4.9); Lymphocytes Percent Auto 12.8 % (20-40); Mean Corpuscular HGB Conc 34.5 g/dl (31.0-36.0); Mean Corpuscular Hemoglobin 32.8 pg (27.0-33.0); Mean Platelet Volume 8.8 fL (9.4-12.4); Monocytes Absolute Auto 0.5 X10*3/uL (0.1-1.2); Monocytes Percent Auto 8.1 % (2-11); Neutrophils Absolute Auto 4.6 x10*3/uL (2.0-8.3); Neutrophils Percent Auto 77.7 % (45-73); Platelet Count 157 X10*3/uL (160-400); Red Blood Count 3.81 X10*6/uL (4.60-5.80); Red Cell Distribution Width 13.4 % (11.0-16.0); White Blood Count 5.9 X10*3/uL (4.8-10.8)
[2022-09-24 13:39] LABS: Alanine Aminotransferase 40 U/L (0-40); Alkaline Phosphatase 123 U/L (39-117); Anion Gap 14 (12-20); Aspartate Amino Transferase 23 U/L (5-37); Bilirubin Total 0.6 mg/dL (0.0-1.0); Blood Urea Nitrogen 21 mg/dL (9-16); Calcium 8.8 mg/dL (8.4-10.2); Carbon Dioxide 23 mmol/L (22-29); Chloride 111 mmol/L (96-108); Creatinine Clr Calc Pharmacy 62.5; Estimated Glomerular Filt Rate > 60; Glucose Random 156 mg/dL (60-115); Potassium 3.8 mmol/L (3.3-5.1); Sodium 144 mmol/L (135-145); Total Protein 6.2 g/dL (6.5-8.0)
--- NOTE | 2022-09-24 22:04 | HO.ECTPROC ---
ECT Procedure Note Diagnosis/Treatment Date of Service: 09/24/22 Diagnosis: Major Depressive Disorder Time: Total time managing care of this patient today ____ minutes. ECT Settings Device: THYMATRON DGx
== END 2022-09-24 14:03 | disposition home or self-care (01) ==
PROVIDERS: PCP Nurse Practitioner Family; Visit Provider Psychiatry & Neurology Psychiatry
PROC: (CPT 90870; principal; 2022-09-24 12:30)
DX: F33.2 Major depressive disorder, recurrent severe without psychotic features (principal); Z86.711 Personal history of pulmonary embolism; Z79.01 Long term (current) use of anticoagulants; Z20.822 Contact with and (suspected) exposure to COVID-19
CPT/HCPCS: 36415; 80053; 85025; 87635; 90870; 93005; J0330; J2250; J2405

== ENCOUNTER 2022-10-24 08:13 | Day surgery (SDC) | payer MEDICARE, OTHER, SELFPAY ==
[2022-10-24] VITALS (7 sets, daily range): BP systolic 133–161; BP diastolic 92–99; PULSE 106–147; RESP 18–24; TEMP 36.7–37.1; O2SAT 94–98; BMI 25.7
--- NOTE | 2022-10-24 08:31 | P.CONAN_ITS ---
[facility] Active Problems Active Problems: All Active Problems (Updated 08/21/21 @ 09:05 by Leila Bryson APRN) Major depressive disorder, recurrent, severe with psychotic features (Acute) Depression (Acute) Physical deconditioning (Acute) Preoperative cardiovascular examination (Acute) Anemia (Acute) GERD (gastroesophageal reflux disease) (Acute) Past Medical History Medical History COVID-19 vaccine administered Dementia Depression Diverticulitis of colon with perforation GERD (gastroesophageal reflux disease) History of electroconvulsive therapy HTN (hypertension) Hyperlipidemia Major depressive disorder, recurrent, severe with psychotic features Pulmonary embolism SVT (supraventricular tachycardia) Family History Family History Brother Blood clot in vein Other No history of cardiac disorder Family history of problems with anesthesia: No Surgical History Surgical History H/O colonoscopy H/O hernia repair History of colostomy reversal History of esophagogastroduodenoscopy (EGD) Status post Paula's procedure History of Problems with Anesthesia: No Social History Social History Household Members: Other Housing: Assisted Living Facility Are you a primary career specialist to a significant other at home: No Do you presently have visiting nurse or other home services: No Alcohol intake: former Patient Tobacco Use Status: Never used Tobacco Second Hand Smoke Exposure: No Advance Directives: Yes Advance Directives on File: Yes Advance Directives Date on File: 07/27/20 service: Yes Current occupational status: retired Sexual orientation: Straight/Heterosexual Meds Allergies Allergy/AdvReac Type Severity Reaction Status Date / Time No Known Allergies Allergy Verified 01/25/21 06:43 [No Known Allergies*] Active Medications: Current Medications Lactated Ringer's (Lr) 1,000 mls @ 50 mls/hr IVCONT .Q20H ROMMEL Exam Exam Date and Time: October 24, 2022 0831 Height,Weight and Vital Signs: Height 5 ft 11 in Weight 83.915 kg Last Vital Signs Temp 98.8 F 10/24/22 08:26 Pulse 118 H 10/24/22 08:26 Resp 20 10/24/22 08:26 BP 146/92 H 10/24/22 08:26 Pulse Ox 95 10/24/22 08:26 O2 Del Method 10/24/22 08:26 Airway Mallampati Class: II TM Dist: >3cm Neck ROM: Full Denture: Upper Heart: rrr Lungs: cta Assessment and Plan Assessment Anesthesia Assessment: Anesthesia Plan Discussed and Chart Reviewed Final Anesthetic Review Family History of Problems with Anesthesia: No History of Problems with Anesthesia: No NPO: Yes ASA Class: III Final Preanesthetic Review: No Changes in Pt Med Stat, Meds/Allgs Chart Reviewed and Consent Obtained/Reviewed Patient Risk: Intermediate Procedure Risk: Intermediate Anesthetic Plan Anesthetic Plan: GA Disposition: Standard PACU
[2022-10-24 08:45] LABS: COVID-19 Test Negative (Negative); IDNOW Serial# 16C4AD1C
--- NOTE | 2022-10-24 09:18 | MHC.SHP ---
Pre-Procedural Eval Section A Date of Service: 10/24/22 The patient is an INPATIENT: No Changes since office visit: Yes Patient answered all questions; No Cold of Flu in the past 2 weeks, No New Medical Problems and No Changes in Medication The History & Physical has been completed within 30 days and I have reviewed it.: Yes Section B Chief Complaint: depression Allergies: Allergies Allergy/AdvReac Type Severity Reaction Status Date / Time No Known Allergies Allergy Verified 01/25/21 06:43 [No Known Allergies*] Plan I have reviewed the history and physical and performed a pertinent physical examination on my patient. No changes have occurred unless specified. Time Spent With Patient Time: Total time managing care of this patient today ____ minutes.
--- NOTE | 2022-10-24 09:26 | HO.ECTPROC ---
ECT Procedure Note Diagnosis/Treatment Date of Service: 10/24/22 Diagnosis: Major Depressive Disorder Current Treatment Number: 5 Treatment: Maintenance Interval Clinical Notes: Patient continues to show full affect tolerating ECT well no relapse symptoms see recent medical workup past history of pulmonary embolism Psychiatrically continues to be stable with approximately monthly ECT history of psychosis and catatonia Time: Total time managing care of this patient today ____ minutes. ECT Settings Device: THYMATRON DGx Electrode Placement: Bifrontal Program/Pulse Width: 0.25 Energy Percent: 100 Seizure Duration By EEG (in seconds): 50 Medications Administration General Anesthetic: Etomidate (16) Muscle Relaxant: Succinylcholine (100) Ancillary Medications Anti-emetics: Zofran - Pre ECT Cardiovascular Medications: Esmolol (20 pre plus 10 during sz and another 10 post) Miscillaneous Medications: Midazolam (2 mg post) Airway Management Airway Management: Bag Mask Ventilation Treatment Recommendations No Changes Recommended: No change Pt Tolerated Procedure w/o Issue: Yes
== END 2022-10-24 11:19 | disposition home or self-care (01) ==
PROVIDERS: PCP Nurse Practitioner Family; Visit Provider Psychiatry & Neurology Psychiatry
PROC: (CPT 90870; principal; 2022-10-24 09:00)
DX: F33.2 Major depressive disorder, recurrent severe without psychotic features (principal); F03.90 Unspecified dementia, unspecified severity, without behavioral disturbance, psychotic disturbance, mood disturbance, and anxiety; I10 Essential (primary) hypertension; E78.5 Hyperlipidemia, unspecified; I47.1 Supraventricular tachycardia; Z86.711 Personal history of pulmonary embolism; Z79.01 Long term (current) use of anticoagulants; Z79.899 Other long term (current) drug therapy; Z20.822 Contact with and (suspected) exposure to COVID-19
CPT/HCPCS: 87635; 90870; J0330; J2250; J2405

== ENCOUNTER 2022-11-21 07:54 | Day surgery (SDC) | payer MEDICARE, OTHER, SELFPAY ==
[2022-11-21] VITALS (7 sets, daily range): BP systolic 134–150; BP diastolic 86–105; PULSE 109–128; RESP 16–24; TEMP 36.7; O2SAT 95–97; BMI 29.8
--- NOTE | 2022-11-21 08:37 | P.CONAN_ITS ---
[facility] Active Problems Active Problems: All Active Problems (Updated 08/21/21 @ 09:05 by Leila Bryson APRN) Major depressive disorder, recurrent, severe with psychotic features (Acute) Depression (Acute) Physical deconditioning (Acute) Preoperative cardiovascular examination (Acute) Anemia (Acute) GERD (gastroesophageal reflux disease) (Acute) Past Medical History Medical History COVID-19 vaccine administered Dementia Depression Diverticulitis of colon with perforation GERD (gastroesophageal reflux disease) History of electroconvulsive therapy HTN (hypertension) Hyperlipidemia Major depressive disorder, recurrent, severe with psychotic features Pulmonary embolism SVT (supraventricular tachycardia) Family History Family History Brother Blood clot in vein Other No history of cardiac disorder Family history of problems with anesthesia: No Surgical History Surgical History H/O colonoscopy H/O hernia repair History of colostomy reversal History of esophagogastroduodenoscopy (EGD) Status post Paula's procedure History of Problems with Anesthesia: No Social History Social History Household Members: Other Housing: Assisted Living Facility Are you a primary outdoor emergency care technician to a significant other at home: No Do you presently have visiting nurse or other home services: No Alcohol intake: former Patient Tobacco Use Status: Never used Tobacco Second Hand Smoke Exposure: No Advance Directives: Yes Advance Directives on File: Yes Advance Directives Date on File: 07/27/20 service: Yes Current occupational status: retired Sexual orientation: Straight/Heterosexual Meds Allergies Allergy/AdvReac Type Severity Reaction Status Date / Time No Known Allergies Allergy Verified 01/25/21 06:43 [No Known Allergies*] Active Medications: Current Medications Lactated Ringer's (Lr) 1,000 mls @ 50 mls/hr IVCONT .Q20H ROMMEL Exam Exam Date and Time: November 21, 2022 0837 Airway Mallampati Class: II TM Dist: >3cm Neck ROM: Full Heart: tachy Lungs: cta Assessment and Plan Assessment Anesthesia Assessment: Anesthesia Plan Discussed and Chart Reviewed Final Anesthetic Review Family History of Problems with Anesthesia: No History of Problems with Anesthesia: No NPO: Yes ASA Class: III Final Preanesthetic Review: No Changes in Pt Med Stat, Meds/Allgs Chart Reviewed and Consent Obtained/Reviewed Patient Risk: Intermediate Procedure Risk: Intermediate Anesthetic Plan Anesthetic Plan: GA
[2022-11-21 08:46] LABS: COVID-19 Test Negative (Negative); IDNOW Serial# 9DB6401D
--- NOTE | 2022-11-21 08:58 | MHC.SHP ---
Pre-Procedural Eval Section A Date of Service: 11/21/22 Changes since office visit: Yes Patient answered all questions; No Cold of Flu in the past 2 weeks, No New Medical Problems and No Changes in Medication The History & Physical has been completed within 30 days and I have reviewed it.: No Section B Chief Complaint: depression Details of Present Illness: recurrent depression Relevant Social History: None Present Medications: see Short Stay Collaborative assessment Medical History: Significant History (ect gi bleed hx p embolism) Allergies: Allergies Allergy/AdvReac Type Severity Reaction Status Date / Time No Known Allergies Allergy Verified 01/25/21 06:43 [No Known Allergies*] Review of Systems Sugical H&P ROS: Negative: Constitution, Cardiovascular, Neurological and Psychiatric and Yes, Specify: Respiratory (some sob going up stairs at times ) Exam Surgical H&P Exam: Normal: Heart (reg rate tachycardic sinus ) and Normal: Lungs Plan Diagnosis/Plan: Unchanged I have reviewed the history and physical and performed a pertinent physical examination on my patient. No changes have occurred unless specified. Time Spent With Patient Time: Total time managing care of this patient today ____ minutes.
--- NOTE | 2022-11-21 09:21 | HO.ECTPROC ---
ECT Procedure Note Diagnosis/Treatment Date of Service: 11/21/22 Diagnosis: Major Depressive Disorder Previous ECT Date: 10/24/22 Treatment: Maintenance Interval Clinical Notes: The patient has been stable within every 4 week ECT treatment. No new medical problems noted. Informed consent obtained from healthcare proxy patient with full affect always has anxiety on arrival to the PACU Time: Total time managing care of this patient today ____ minutes. ECT Settings Device: THYMATRON DGx Electrode Placement: Bifrontal Program/Pulse Width: 0.25 Energy Percent: 100 Seizure Duration By EEG (in seconds): 45 Medications Administration General Anesthetic: Etomidate (16) Muscle Relaxant: Succinylcholine (100) Ancillary Medications Anti-emetics: Zofran - Pre ECT Cardiovascular Medications: Esmolol (20 pre plus 10 during sz and another 10 post) Miscillaneous Medications: Midazolam (2 mg post) Airway Management Airway Management: Bag Mask Ventilation Treatment Recommendations No Changes Recommended: No change Notes: Follow-up treatments for weeks no significant side effects noted Pt Tolerated Procedure w/o Issue: Yes
== END 2022-11-21 10:30 ==
LOC: HO.SSS 07:55
PROVIDERS: PCP Nurse Practitioner Family; Visit Provider Psychiatry & Neurology Psychiatry
PROC: (CPT 90870; principal; 2022-11-21 09:30)
DX: F33.3 Major depressive disorder, recurrent, severe with psychotic symptoms (principal); F03.90 Unspecified dementia, unspecified severity, without behavioral disturbance, psychotic disturbance, mood disturbance, and anxiety; I10 Essential (primary) hypertension; E78.5 Hyperlipidemia, unspecified; I47.1 Supraventricular tachycardia; Z79.01 Long term (current) use of anticoagulants; Z86.711 Personal history of pulmonary embolism; Z79.899 Other long term (current) drug therapy; Z20.822 Contact with and (suspected) exposure to COVID-19
CPT/HCPCS: 87635; 90870; J0330; J2250; J2405

== ENCOUNTER 2022-12-01 13:20 | Outpatient (REF) | payer MEDICARE, OTHER, SELFPAY ==
[2022-12-05 23:15] LABS: Nortriptyline 101 mcg/L (50-150)
== END 2022-12-01 13:21 | disposition home or self-care (01) ==
LOC: HO.LAB 13:20
PROVIDERS: PCP Nurse Practitioner Family; Visit Provider Psychiatry & Neurology Psychiatry
DX: F33.3 Major depressive disorder, recurrent, severe with psychotic symptoms (principal); Z79.899 Other long term (current) drug therapy
CPT/HCPCS: 36415; 80335

== ENCOUNTER 2022-12-19 07:55 | Day surgery (SDC) | payer MEDICARE, OTHER, SELFPAY ==
[2022-12-19] VITALS (7 sets, daily range): BP systolic 133–165; BP diastolic 72–95; PULSE 105–122; RESP 13–20; TEMP 36.9–37.4; O2SAT 95–99; BMI 25.7
[2022-12-19] MEDS: Lactated Ringers 1,000 ML 50 ML IVCONT (08:37)
--- NOTE | 2022-12-19 08:37 | P.CONAN_ITS ---
[facility] Problems Active Problems: All Active Problems (Updated 08/21/21 @ 09:05 by Leila Bryson APRN) Major depressive disorder, recurrent, severe with psychotic features (Acute) Depression (Acute) Physical deconditioning (Acute) Preoperative cardiovascular examination (Acute) Anemia (Acute) GERD (gastroesophageal reflux disease) (Acute) Past Medical History Medical History COVID-19 vaccine administered Dementia Depression Diverticulitis of colon with perforation GERD (gastroesophageal reflux disease) History of electroconvulsive therapy HTN (hypertension) Hyperlipidemia Major depressive disorder, recurrent, severe with psychotic features Pulmonary embolism SVT (supraventricular tachycardia) Family History Family History Brother Blood clot in vein Other No history of cardiac disorder Family history of problems with anesthesia: No Surgical History Surgical History H/O colonoscopy H/O hernia repair History of colostomy reversal History of esophagogastroduodenoscopy (EGD) Status post Paula's procedure History of Problems with Anesthesia: No Social History Social History Household Members: Other Housing: Assisted Living Facility Are you a primary clinical care leader to a significant other at home: No Do you presently have visiting nurse or other home services: No Alcohol intake: former Patient Tobacco Use Status: Never used Tobacco Second Hand Smoke Exposure: No Use of substances other than those prescribed or required for medical reasons: No Are you DNR?: No Advance Directives: Yes Advance Directives on File: Yes Advance Directives Date on File: 07/27/20 service: Yes Current occupational status: retired Sexual orientation: Straight/Heterosexual Meds Allergies Allergy/AdvReac Type Severity Reaction Status Date / Time No Known Allergies Allergy Verified 01/25/21 06:43 [No Known Allergies*] Active Medications: Current Medications Lactated Ringer's (Lr) 1,000 mls @ 50 mls/hr IVCONT .Q20H [facility] Exam Exam Date and Time: December 19, 2022 0837 Height,Weight and Vital Signs: Height 5 ft 11 in Weight 83.915 kg Last Vital Signs Temp 98.5 F 12/19/22 08:17 Pulse 114 H 12/19/22 08:17 Resp 16 12/19/22 08:17 BP 139/89 12/19/22 08:17 Pulse Ox 95 12/19/22 08:17 Airway Mallampati Class: II TM Dist: >3cm Neck ROM: Full Denture: Upper Heart: rrr Lungs: cta Assessment and Plan Assessment Anesthesia Assessment: Anesthesia Plan Discussed Final Anesthetic Review Family History of Problems with Anesthesia: No History of Problems with Anesthesia: No NPO: Yes ASA Class: III Final Preanesthetic Review: No Changes in Pt Med Stat, Meds/Allgs Chart Reviewed and Consent Obtained/Reviewed Patient Risk: Intermediate Procedure Risk: Intermediate Anesthetic Plan Anesthetic Plan: GA Disposition: Standard PACU
[2022-12-19 08:38] LABS: COVID-19 Test Negative (Negative); IDNOW Serial# BCCEAD1C
--- NOTE | 2022-12-19 09:11 | MHC.SHP ---
Pre-Procedural Eval Section A Date of Service: 12/19/22 The patient is an INPATIENT: No Changes since office visit: Yes Patient answered all questions; No Cold of Flu in the past 2 weeks, No New Medical Problems and No Changes in Medication The History & Physical has been completed within 30 days and I have reviewed it.: No Section B Chief Complaint: Major depressive disorder, recurrent, severe with Details of Present Illness: recurrent catatonia Relevant Social History: None Present Medications: see Short Stay Collaborative assessment Medical History: Significant History (ect gi bleed hx p embolism) Allergies: Allergies Allergy/AdvReac Type Severity Reaction Status Date / Time No Known Allergies Allergy Verified 01/25/21 06:43 [No Known Allergies*] Review of Systems Sugical H&P ROS: Negative: Constitution, Cardiovascular (rr tachycardic), Neurological and Psychiatric and Yes, Specify: Respiratory (some sob going up stairs at times ) Exam Surgical H&P Exam: Normal: Heart (reg rate tachycardic sinus ) and Normal: Lungs Plan Diagnosis/Plan: Unchanged I have reviewed the history and physical and performed a pertinent physical examination on my patient. No changes have occurred unless specified. Time Spent With Patient Time: Total time managing care of this patient today ____ minutes.
--- NOTE | 2022-12-19 09:43 | HO.ECTPROC ---
ECT Procedure Note Diagnosis/Treatment Date of Service: 12/19/22 Diagnosis: Major Depressive Disorder and Catatonia Previous ECT Date: 11/21/22 Treatment: Maintenance Interval Clinical Notes: The patient has been stable within every 4 week ECT treatment. No new medical problems noted. Informed consent obtained from healthcare proxy patient with full affect always has anxiety on arrival to the PACU with tachycardia doing very well Time: Total time managing care of this patient today ____ minutes. ECT Settings Device: THYMATRON DGx Electrode Placement: Bifrontal Program/Pulse Width: 0.25 Energy Percent: 100 Seizure Duration By EEG (in seconds): 40 Medications Administration General Anesthetic: Etomidate (16) Muscle Relaxant: Succinylcholine (100) Ancillary Medications Anti-emetics: Zofran - Pre ECT Cardiovascular Medications: Esmolol (20 pre plus 20) Miscillaneous Medications: Midazolam (2 mg post) Airway Management Airway Management: Bag Mask Ventilation Treatment Recommendations No Changes Recommended: No change Notes: Follow-up treatments 4 weeks no significant side effects noted Pt Tolerated Procedure w/o Issue: Yes
== END 2022-12-19 11:27 | disposition home or self-care (01) ==
PROVIDERS: PCP Nurse Practitioner Family; Visit Provider Psychiatry & Neurology Psychiatry
PROC: (CPT 90870; principal; 2022-12-19 09:00)
DX: F33.2 Major depressive disorder, recurrent severe without psychotic features (principal); D64.9 Anemia, unspecified; F03.90 Unspecified dementia, unspecified severity, without behavioral disturbance, psychotic disturbance, mood disturbance, and anxiety; I10 Essential (primary) hypertension; I47.1 Supraventricular tachycardia; K21.9 Gastro-esophageal reflux disease without esophagitis; E78.5 Hyperlipidemia, unspecified; I26.99 Other pulmonary embolism without acute cor pulmonale; Z79.01 Long term (current) use of anticoagulants; Z79.899 Other long term (current) drug therapy; Z98.890 Other specified postprocedural states; Z20.822 Contact with and (suspected) exposure to COVID-19
CPT/HCPCS: 87635; 90870; J0330; J2250; J2405

== ENCOUNTER 2023-01-23 08:13 | Day surgery (SDC) | payer MEDICARE, OTHER, SELFPAY ==
--- NOTE | 2023-01-23 | ECG_ITS ---
Test Reason : afib Blood Pressure : / mmHG Vent. Rate : 104 BPM Atrial Rate : 104 BPM P-R Int : 206 ms QRS Dur : 094 ms QT Int : 362 ms P-R-T Axes : 047 -39 002 degrees QTc Int : 476 ms Sinus tachycardia with Premature atrial complexes Left axis deviation Nonspecific ST abnormality Abnormal ECG When compared with ECG of 24-SEP-2022 12:53, Premature atrial complexes are now Present Nonspecific T wave abnormality, worse in Inferior leads Referred By: Jazmin Blackwell Electronically Signed By:ZORA TILLMAN
--- NOTE | 2023-01-23 08:28 | P.CONAN_ITS ---
[facility] Active Problems Active Problems: All Active Problems (Updated 08/21/21 @ 09:05 by Leila Bryson APRN) Major depressive disorder, recurrent, severe with psychotic features (Acute) Depression (Acute) Physical deconditioning (Acute) Preoperative cardiovascular examination (Acute) Anemia (Acute) GERD (gastroesophageal reflux disease) (Acute) Past Medical History Medical History COVID-19 vaccine administered Dementia Depression Diverticulitis of colon with perforation GERD (gastroesophageal reflux disease) History of electroconvulsive therapy HTN (hypertension) Hyperlipidemia Major depressive disorder, recurrent, severe with psychotic features Pulmonary embolism SVT (supraventricular tachycardia) Family History Family History Brother Blood clot in vein Other No history of cardiac disorder Family history of problems with anesthesia: No Surgical History Surgical History H/O colonoscopy H/O hernia repair History of colostomy reversal History of esophagogastroduodenoscopy (EGD) Status post Paula's procedure History of Problems with Anesthesia: No Social History Social History Household Members: Other Housing: Assisted Living Facility Are you a primary medicare contact specialist to a significant other at home: No Do you presently have visiting nurse or other home services: No Alcohol intake: former Patient Tobacco Use Status: Never used Tobacco Second Hand Smoke Exposure: No Advance Directives: Yes Advance Directives on File: Yes Advance Directives Date on File: 07/27/20 service: Yes Current occupational status: retired Sexual orientation: Straight/Heterosexual Meds Allergies Allergy/AdvReac Type Severity Reaction Status Date / Time No Known Allergies Allergy Verified 01/25/21 06:43 [No Known Allergies*] Exam Exam Date and Time: January 23, 2023 0828 Airway Mallampati Class: II TM Dist: >3cm Neck ROM: Full Heart: rrr Lungs: cta Assessment and Plan Assessment Anesthesia Assessment: Anesthesia Plan Discussed and Chart Reviewed Final Anesthetic Review Family History of Problems with Anesthesia: No History of Problems with Anesthesia: No NPO: Yes ASA Class: III Final Preanesthetic Review: No Changes in Pt Med Stat, Meds/Allgs Chart Reviewed and Consent Obtained/Reviewed Patient Risk: Intermediate Procedure Risk: Intermediate Anesthetic Plan Anesthetic Plan: GA Disposition: Standard PACU
[2023-01-23 08:35] VITALS: BP 137/85; PULSE 104; RESP 18; TEMP 36.7; O2SAT 95; BMI 25.7
--- NOTE | 2023-01-23 08:42 | P.CONAN_ITS ---
[facility] Active Problems Active Problems: All Active Problems (Updated 08/21/21 @ 09:05 by Leila Bryson APRN) Major depressive disorder, recurrent, severe with psychotic features (Acute) Depression (Acute) Physical deconditioning (Acute) Preoperative cardiovascular examination (Acute) Anemia (Acute) GERD (gastroesophageal reflux disease) (Acute) Past Medical History Medical History COVID-19 vaccine administered Dementia Depression Diverticulitis of colon with perforation GERD (gastroesophageal reflux disease) History of electroconvulsive therapy HTN (hypertension) Hyperlipidemia Major depressive disorder, recurrent, severe with psychotic features Pulmonary embolism SVT (supraventricular tachycardia) Family History Family History Brother Blood clot in vein Other No history of cardiac disorder Family history of problems with anesthesia: No Surgical History Surgical History H/O colonoscopy H/O hernia repair History of colostomy reversal History of esophagogastroduodenoscopy (EGD) Status post Paula's procedure History of Problems with Anesthesia: No Social History Social History Household Members: Other Housing: Assisted Living Facility Are you a primary field care advocate to a significant other at home: No Do you presently have visiting nurse or other home services: No Alcohol intake: former Patient Tobacco Use Status: Never used Tobacco Second Hand Smoke Exposure: No Advance Directives: Yes Advance Directives on File: Yes Advance Directives Date on File: 07/27/20 service: Yes Current occupational status: retired Sexual orientation: Straight/Heterosexual Meds Allergies Allergy/AdvReac Type Severity Reaction Status Date / Time No Known Allergies Allergy Verified 01/25/21 06:43 [No Known Allergies*] Active Medications: Current Medications Lactated Ringer's (Lr) 1,000 mls @ 50 mls/hr IVCONT .Q20H ROMMEL Exam Exam Date and Time: January 23, 2023 0842 Height,Weight and Vital Signs: Height 5 ft 11 in Weight 83.915 kg Last Vital Signs Temp 98.1 F 01/23/23 08:35 Pulse 104 H 01/23/23 08:35 Resp 18 01/23/23 08:35 BP 137/85 01/23/23 08:35 Pulse Ox 95 01/23/23 08:35 O2 Del Method Room Air 01/23/23 08:35 Airway Mallampati Class: II TM Dist: >3cm Neck ROM: Full Denture: Upper Heart: tachy Lungs: cta Assessment and Plan Assessment Anesthesia Assessment: Anesthesia Plan Discussed and Chart Reviewed Final Anesthetic Review Family History of Problems with Anesthesia: No History of Problems with Anesthesia: No NPO: Yes ASA Class: III Final Preanesthetic Review: No Changes in Pt Med Stat, Meds/Allgs Chart Reviewed and Consent Obtained/Reviewed Patient Risk: Intermediate Procedure Risk: Intermediate Anesthetic Plan Anesthetic Plan: GA Disposition: Standard PACU
[2023-01-23 08:43] LABS: IDNOW Serial# 55D5AD1C
[2023-01-23 08:44] LABS: COVID-19 Test Negative (Negative)
--- NOTE | 2023-01-23 08:56 | MHC.SHP ---
Pre-Procedural Eval Section A Date of Service: 01/23/23 The patient is an INPATIENT: No Changes since office visit: Yes Patient answered all questions; No Cold of Flu in the past 2 weeks, No New Medical Problems and No Changes in Medication The History & Physical has been completed within 30 days and I have reviewed it.: No Section B Chief Complaint: Major depressive disorder, recurrent, severe with Details of Present Illness: recurrent depression Relevant Social History: None Present Medications: see Short Stay Collaborative assessment Medical History: Significant History (ect gi bleed hx p embolism) History of Previous Operations: Relevant previous surgery/procedure and date(s) (colon resection ) Allergies: Allergies Allergy/AdvReac Type Severity Reaction Status Date / Time No Known Allergies Allergy Verified 01/25/21 06:43 [No Known Allergies*] Review of Systems Sugical H&P ROS: Negative: Constitution, Cardiovascular, Neurological and Psychiatric (pleasant has been stable) and Yes, Specify: Respiratory (mild occ sob) Exam Surgical H&P Exam: Normal: Heart (reg rate tachycardic sinus ) and Normal: Lungs Plan Diagnosis/Plan: Unchanged I have reviewed the history and physical and performed a pertinent physical examination on my patient. No changes have occurred unless specified. Time Spent With Patient Time: Total time managing care of this patient today ____ minutes.
[2023-01-23 09:20] VITALS: BP 163/108; PULSE 110; RESP 30; TEMP 37.5; O2SAT 98
[2023-01-23 09:25] VITALS: BP 147/93; PULSE 109; RESP 26; O2SAT 95
[2023-01-23 09:30] VITALS: BP 124/83; PULSE 101; RESP 22; O2SAT 94
[2023-01-23 09:35] VITALS: BP 135/89; PULSE 102; RESP 20; O2SAT 95
[2023-01-23 09:50] VITALS: BP 135/77; PULSE 95; RESP 18; TEMP 37.2; O2SAT 94
--- NOTE | 2023-01-23 21:52 | HO.ECTPROC ---
ECT Procedure Note Diagnosis/Treatment Date of Service: 01/23/23 Diagnosis: Major Depressive Disorder and Catatonia Previous ECT Date: 12/19/22 Treatment: Maintenance Interval Clinical Notes: The patient has been stable within every 4 week ECT treatment. No new medical problems noted. Informed consent obtained from healthcare proxy patient with full affect always has anxiety on arrival to the PACU with tachycardia this has been ongoing doing very well no complaints of side effects no new medical concerns Time: Total time managing care of this patient today ____ minutes. ECT Settings Device: THYMATRON DGx Electrode Placement: Bifrontal Program/Pulse Width: 0.25 Energy Percent: 100 Seizure Duration By EEG (in seconds): 22 Medications Administration General Anesthetic: Etomidate (16) Muscle Relaxant: Succinylcholine (100) Ancillary Medications Anti-emetics: Zofran - Pre ECT Cardiovascular Medications: Esmolol (20 pre 10 during plus 20) Miscillaneous Medications: Midazolam (2 mg post) Airway Management Airway Management: Bag Mask Ventilation Treatment Recommendations No Changes Recommended: No change Notes: Follow-up treatments 4 weeks no significant side effects noted maintenance treatment continues to be quite helpful. Patient sees Dr. Sims in outpatient treatment Pt Tolerated Procedure w/o Issue: Yes
== END 2023-01-23 10:19 | disposition home or self-care (01) ==
PROVIDERS: PCP Nurse Practitioner Family; Visit Provider Psychiatry & Neurology Psychiatry
PROC: (CPT 90870; principal; 2023-01-23 09:30)
DX: F33.3 Major depressive disorder, recurrent, severe with psychotic symptoms (principal); F03.90 Unspecified dementia, unspecified severity, without behavioral disturbance, psychotic disturbance, mood disturbance, and anxiety; I47.1 Supraventricular tachycardia; K21.9 Gastro-esophageal reflux disease without esophagitis; E78.5 Hyperlipidemia, unspecified; Z86.711 Personal history of pulmonary embolism; Z79.899 Other long term (current) drug therapy; Z79.01 Long term (current) use of anticoagulants; Z20.822 Contact with and (suspected) exposure to COVID-19; I10 Essential (primary) hypertension
CPT/HCPCS: 87635; 90870; 93005; J0330; J2250; J2405

== ENCOUNTER 2023-02-20 08:37 | Day surgery (SDC) | payer MEDICARE, OTHER, SELFPAY ==
[2023-02-20] VITALS (10 sets, daily range): BP systolic 105–140; BP diastolic 55–89; PULSE 102–115; RESP 10–20; TEMP 36.2–37.2; O2SAT 92–98; BMI 25.8
--- NOTE | 2023-02-20 08:33 | HO.ANESPROP2 ---
[facility] Active Problems Active Problems: All Active Problems (Updated 08/21/21 @ 09:05 by Leila Bryson APRN) Major depressive disorder, recurrent, severe with psychotic features (Acute) Depression (Acute) Physical deconditioning (Acute) Preoperative cardiovascular examination (Acute) Anemia (Acute) GERD (gastroesophageal reflux disease) (Acute) Past Medical History Medical History COVID-19 vaccine administered Dementia Depression Diverticulitis of colon with perforation GERD (gastroesophageal reflux disease) History of electroconvulsive therapy HTN (hypertension) Hyperlipidemia Major depressive disorder, recurrent, severe with psychotic features Pulmonary embolism SVT (supraventricular tachycardia) Family History Family History Brother Blood clot in vein Other No history of cardiac disorder Family history of problems with anesthesia: No Surgical History Surgical History H/O colonoscopy H/O hernia repair History of colostomy reversal History of esophagogastroduodenoscopy (EGD) Status post Paula's procedure History of Problems with Anesthesia: No Social History Social History Household Members: Other Housing: Assisted Living Facility Are you a primary resident care technician to a significant other at home: No Do you presently have visiting nurse or other home services: No Alcohol intake: former Patient Tobacco Use Status: Never used Tobacco Second Hand Smoke Exposure: No Advance Directives Date on File: 07/27/20 service: Yes Current occupational status: retired Sexual orientation: Straight/Heterosexual Meds Allergies Allergy/AdvReac Type Severity Reaction Status Date / Time No Known Allergies Allergy Verified 01/25/21 06:43 [No Known Allergies*] Exam Exam Date and Time: February 20, 2023 0833 Height,Weight and Vital Signs: Height 5 ft 11 in Weight 83.915 kg Last Vital Signs Temp 97.7 F 02/20/23 08:07 Pulse 115 H 02/20/23 08:07 Resp 20 02/20/23 08:07 BP 140/81 H 02/20/23 08:07 Pulse Ox 96 02/20/23 08:07 O2 Del Method Room Air 02/20/23 08:07 Airway Mallampati Class: II TM Dist: >3cm Neck ROM: Full Heart: rrr Lungs: cta Assessment and Plan Assessment Anesthesia Assessment: Anesthesia Plan Discussed and Chart Reviewed Final Anesthetic Review Family History of Problems with Anesthesia: No History of Problems with Anesthesia: No NPO: Yes ASA Class: III Final Preanesthetic Review: No Changes in Pt Med Stat, Meds/Allgs Chart Reviewed and Consent Obtained/Reviewed Patient Risk: Intermediate Procedure Risk: Intermediate Anesthetic Plan Anesthetic Plan: GA Disposition: Standard PACU
--- NOTE | 2023-02-20 08:56 | MHC.SHP ---
Pre-Procedural Eval Section A Date of Service: 02/20/23 The patient is an INPATIENT: No Changes since office visit: Yes Patient answered all questions; No Cold of Flu in the past 2 weeks, No New Medical Problems and No Changes in Medication Section B Chief Complaint: Major depressive disorder, recurrent, severe with Details of Present Illness: recurrent depression Relevant Social History: None Present Medications: see Short Stay Collaborative assessment Medical History: Significant History (ect gi bleed hx p embolism) History of Previous Operations: Relevant previous surgery/procedure and date(s) (colon resection ) Allergies: Allergies Allergy/AdvReac Type Severity Reaction Status Date / Time No Known Allergies Allergy Verified 01/25/21 06:43 [No Known Allergies*] Review of Systems Sugical H&P ROS: Negative: Constitution, Cardiovascular, Neurological and Psychiatric (pleasant has been stable ongoing) and Yes, Specify: Respiratory (minimal sob ) Exam Surgical H&P Exam: Normal: Heart (reg rate tachycardic sinus ) and Normal: Lungs Plan Diagnosis/Plan: Unchanged I have reviewed the history and physical and performed a pertinent physical examination on my patient. No changes have occurred unless specified. Time Spent With Patient Time: Total time managing care of this patient today ____ minutes.
--- NOTE | 2023-02-20 09:19 | HO.ECTPROC ---
ECT Procedure Note Diagnosis/Treatment Date of Service: 03/10/23 Diagnosis: Major Depressive Disorder Treatment: Maintenance Interval Clinical Notes: Patient stable feeling well consent from healthcare proxy sees Dr. Sims outpatient Time: Total time managing care of this patient today ____ minutes. ECT Settings Device: THYMATRON DGx Electrode Placement: Bifrontal Program/Pulse Width: 0.50 Energy Percent: 100 Seizure Duration By EEG (in seconds): 81 Medications Administration General Anesthetic: Etomidate (16) Muscle Relaxant: Succinylcholine (100) Ancillary Medications Anti-emetics: Zofran - Pre ECT Miscillaneous Medications: Midazolam (2) Airway Management Airway Management: Bag Mask Ventilation Treatment Recommendations Electrode Placement: Bifrontal Program/Pulse Width: 0.25 Energy Percent: 100 Notes: Had confusion postop can try lowering pulse with 0.25
== END 2023-02-20 11:10 | disposition home or self-care (01) ==
PROVIDERS: PCP Nurse Practitioner Family; Visit Provider Psychiatry & Neurology Psychiatry
PROC: (CPT 90870; principal; 2023-02-20 09:00)
DX: F33.3 Major depressive disorder, recurrent, severe with psychotic symptoms (principal); D64.9 Anemia, unspecified; K21.9 Gastro-esophageal reflux disease without esophagitis; F03.90 Unspecified dementia, unspecified severity, without behavioral disturbance, psychotic disturbance, mood disturbance, and anxiety; I10 Essential (primary) hypertension; E78.5 Hyperlipidemia, unspecified; I26.99 Other pulmonary embolism without acute cor pulmonale; I47.1 Supraventricular tachycardia
CPT/HCPCS: 90870; J0330; J2250; J2405

== ENCOUNTER 2023-03-20 07:51 | Day surgery (SDC) | payer MEDICARE, OTHER, SELFPAY ==
[2023-03-20] VITALS (7 sets, daily range): BP systolic 127–169; BP diastolic 81–108; PULSE 107–141; RESP 13–26; TEMP 36.2–37.1; O2SAT 94–99; BMI 25.8
--- NOTE | 2023-03-20 08:22 | HO.ANESPROP2 ---
[facility] Active Problems Active Problems: All Active Problems (Updated 08/21/21 @ 09:05 by Leila Bryson APRN) Major depressive disorder, recurrent, severe with psychotic features (Acute) Depression (Acute) Physical deconditioning (Acute) Preoperative cardiovascular examination (Acute) Anemia (Acute) GERD (gastroesophageal reflux disease) (Acute) Past Medical History Medical History COVID-19 vaccine administered Dementia Depression Diverticulitis of colon with perforation GERD (gastroesophageal reflux disease) History of electroconvulsive therapy HTN (hypertension) Hyperlipidemia Major depressive disorder, recurrent, severe with psychotic features Pulmonary embolism SVT (supraventricular tachycardia) Family History Family History Brother Blood clot in vein Other No history of cardiac disorder Family history of problems with anesthesia: No Surgical History Surgical History H/O colonoscopy H/O hernia repair History of colostomy reversal History of esophagogastroduodenoscopy (EGD) Status post Paula's procedure History of Problems with Anesthesia: No Social History Social History Household Members: Other Housing: Assisted Living Facility Are you a primary school child care attendant to a significant other at home: No Do you presently have visiting nurse or other home services: No Alcohol intake: former Patient Tobacco Use Status: Never used Tobacco Second Hand Smoke Exposure: No Advance Directives: No Advance Directives Information Provided: Yes Advance Directives Date on File: 07/27/20 service: Yes Current occupational status: retired Sexual orientation: Straight/Heterosexual Meds Allergies Allergy/AdvReac Type Severity Reaction Status Date / Time No Known Allergies Allergy Verified 01/25/21 06:43 [No Known Allergies*] Exam Exam Date and Time: March 20, 2023821 Height,Weight and Vital Signs: Height 5 ft 11 in Weight 83.915 kg Last Vital Signs Temp 97.1 F 03/20/23 08:12 Pulse 121 H 03/20/23 08:12 Resp 20 03/20/23 08:12 BP 150/83 H 03/20/23 08:12 Pulse Ox 96 03/20/23 08:12 O2 Del Method Room Air 03/20/23 08:12 Airway Mallampati Class: II TM Dist: >3cm Neck ROM: Full Denture: Upper Heart: tachy Lungs: cta Assessment and Plan Assessment Anesthesia Assessment: Anesthesia Plan Discussed and Chart Reviewed Final Anesthetic Review Family History of Problems with Anesthesia: No History of Problems with Anesthesia: No NPO: Yes ASA Class: III Final Preanesthetic Review: No Changes in Pt Med Stat, Meds/Allgs Chart Reviewed and Consent Obtained/Reviewed Patient Risk: Intermediate Procedure Risk: Intermediate Anesthetic Plan Anesthetic Plan: GA Disposition: Standard PACU
--- NOTE | 2023-03-20 09:07 | MHC.SHP ---
Pre-Procedural Eval Section A Date of Service: 03/20/23 The patient is an INPATIENT: No Changes since office visit: Yes Patient answered all questions; No Cold of Flu in the past 2 weeks, No New Medical Problems and No Changes in Medication The History & Physical has been completed within 30 days and I have reviewed it.: No Section B Chief Complaint: depression disorder Details of Present Illness: recurrent depression stable with ect no new medical concerns Relevant Social History: None Present Medications: see Short Stay Collaborative assessment Medical History: Significant History (ect gi bleed hx p embolism) History of Previous Operations: Relevant previous surgery/procedure and date(s) (colon resection ) Allergies: Allergies Allergy/AdvReac Type Severity Reaction Status Date / Time No Known Allergies Allergy Verified 01/25/21 06:43 [No Known Allergies*] Review of Systems Sugical H&P ROS: Negative: Constitution, Cardiovascular, Neurological and Psychiatric (pleasant has been stable ongoing) and Yes, Specify: Respiratory (minimal sob ) Exam Surgical H&P Exam: Normal: Heart (reg rate tachycardic sinus ) and Normal: Lungs Plan Diagnosis/Plan: Unchanged I have reviewed the history and physical and performed a pertinent physical examination on my patient. No changes have occurred unless specified. Time Spent With Patient Time: Total time managing care of this patient today ____ minutes.
--- NOTE | 2023-03-20 09:24 | HO.ECTPROC ---
ECT Procedure Note Diagnosis/Treatment Date of Service: 03/20/23 Diagnosis: Major Depressive Disorder Treatment: Maintenance Interval Clinical Notes: pt anxious pre tx has continued to do quite well stable not overly depressed or psychotic Time: Total time managing care of this patient today ____ minutes. ECT Settings Device: THYMATRON DGx Electrode Placement: Bifrontal Program/Pulse Width: 0.25 Energy Percent: 100 Seizure Duration By EEG (in seconds): 54 Medications Administration General Anesthetic: Etomidate (16) Muscle Relaxant: Succinylcholine (100) Ancillary Medications Anti-emetics: Zofran - Pre ECT Cardiovascular Medications: Esmolol (20 mg total) Miscillaneous Medications: Midazolam (2) Airway Management Airway Management: Bag Mask Ventilation Treatment Recommendations Electrode Placement: Bifrontal Program/Pulse Width: 0.25 Energy Percent: 100 Notes: did well post op with 0.25 pw Pt Tolerated Procedure w/o Issue: Yes
== END 2023-03-20 10:35 | disposition home or self-care (01) ==
PROVIDERS: PCP Nurse Practitioner Family; Visit Provider Psychiatry & Neurology Psychiatry
PROC: (CPT 90870; principal; 2023-03-20 09:00)
DX: F33.2 Major depressive disorder, recurrent severe without psychotic features (principal); F41.1 Generalized anxiety disorder; C61 Malignant neoplasm of prostate; I26.99 Other pulmonary embolism without acute cor pulmonale; Z79.01 Long term (current) use of anticoagulants; Z79.899 Other long term (current) drug therapy
CPT/HCPCS: 90870; J0330; J2250; J2405

== ENCOUNTER 2023-04-24 07:57 | Day surgery (SDC) | payer MEDICARE, OTHER, SELFPAY ==
[2023-04-24 08:12] VITALS: BP 140/88; PULSE 120; RESP 22; TEMP 37; O2SAT 95; BMI 25.8
--- NOTE | 2023-04-24 08:36 | HO.ANESPROP2 ---
[facility] Active Problems Active Problems: All Active Problems (Updated 08/21/21 @ 09:05 by Leila Bryson APRN) Major depressive disorder, recurrent, severe with psychotic features (Acute) Depression (Acute) Physical deconditioning (Acute) Preoperative cardiovascular examination (Acute) Anemia (Acute) GERD (gastroesophageal reflux disease) (Acute) Past Medical History Medical History COVID-19 vaccine administered Dementia Depression Diverticulitis of colon with perforation GERD (gastroesophageal reflux disease) History of electroconvulsive therapy HTN (hypertension) Hyperlipidemia Major depressive disorder, recurrent, severe with psychotic features Pulmonary embolism SVT (supraventricular tachycardia) Family History Family History Brother Blood clot in vein Other No history of cardiac disorder Family history of problems with anesthesia: No Surgical History Surgical History H/O colonoscopy H/O hernia repair History of colostomy reversal History of esophagogastroduodenoscopy (EGD) Status post Paula's procedure History of Problems with Anesthesia: No Social History Social History Household Members: Other Housing: Assisted Living Facility Are you a primary critical care nurse practitioner to a significant other at home: No Do you presently have visiting nurse or other home services: No Alcohol intake: former Patient Tobacco Use Status: Never used Tobacco Second Hand Smoke Exposure: No Advance Directives: No Advance Directives Information Provided: Yes Advance Directives Date on File: 07/27/20 service: Yes Current occupational status: retired Sexual orientation: Straight/Heterosexual Meds Allergies Allergy/AdvReac Type Severity Reaction Status Date / Time No Known Allergies Allergy Verified 01/25/21 06:43 [No Known Allergies*] Exam Exam Date and Time: April 24, 2023 0836 Height,Weight and Vital Signs: Height 5 ft 11 in Weight 83.915 kg Last Vital Signs Temp 98.6 F 04/24/23 08:12 Pulse 120 H 04/24/23 08:12 Resp 22 H 04/24/23 08:12 BP 140/88 H 04/24/23 08:12 Pulse Ox 95 04/24/23 08:12 O2 Del Method Room Air 04/24/23 08:12 Airway Mallampati Class: II TM Dist: >3cm Neck ROM: Full Denture: Upper Partial: Upper Assessment and Plan Assessment Anesthesia Assessment: Anesthesia Plan Discussed and Chart Reviewed Final Anesthetic Review Family History of Problems with Anesthesia: No History of Problems with Anesthesia: No NPO: Yes ASA Class: III Final Preanesthetic Review: No Changes in Pt Med Stat, Meds/Allgs Chart Reviewed, Consent Obtained/Reviewed and Anes Risks/Benef Reviewed Patient Risk: Intermediate Procedure Risk: Low Anesthetic Plan Anesthetic Plan: GA Disposition: Standard PACU
--- NOTE | 2023-04-24 08:53 | MHC.SHP ---
Pre-Procedural Eval Section A Date of Service: 04/24/23 The patient is an INPATIENT: No Changes since office visit: Yes Patient answered all questions; No Cold of Flu in the past 2 weeks, No New Medical Problems and No Changes in Medication The History & Physical has been completed within 30 days and I have reviewed it.: Yes Section B Chief Complaint: Major depressive disorder, recurrent, severe with Allergies: Allergies Allergy/AdvReac Type Severity Reaction Status Date / Time No Known Allergies Allergy Verified 01/25/21 06:43 [No Known Allergies*] Plan I have reviewed the history and physical and performed a pertinent physical examination on my patient. No changes have occurred unless specified. Time Spent With Patient Time: Total time managing care of this patient today ____ minutes.
[2023-04-24 09:14] VITALS: BP 160/90; PULSE 106; RESP 18; TEMP 37.2; O2SAT 96
--- NOTE | 2023-04-24 09:17 | HO.ECTPROC ---
ECT Procedure Note Diagnosis/Treatment Date of Service: 04/24/23 Diagnosis: Major Depressive Disorder Previous ECT Date: 03/19/23 Treatment: Maintenance Interval Clinical Notes: stable doing we=marco h and p reviewed Time: Total time managing care of this patient today ____ minutes. ECT Settings Device: THYMATRON DGx Electrode Placement: Bifrontal Program/Pulse Width: 0.25 Energy Percent: 100 Seizure Duration By EEG (in seconds): 42 Medications Administration General Anesthetic: Etomidate Muscle Relaxant: Succinylcholine (100) Ancillary Medications Cardiovascular Medications: Esmolol (10 plus 10) Miscillaneous Medications: Propofol Airway Management Airway Management: Bag Mask Ventilation Treatment Recommendations Notes: f/u 05/15/23 Pt Tolerated Procedure w/o Issue: Yes
[2023-04-24 09:19] VITALS: BP 160/94; PULSE 128; RESP 20; O2SAT 93
[2023-04-24 09:24] VITALS: BP 154/91; PULSE 132; RESP 17; O2SAT 97
[2023-04-24 09:29] VITALS: BP 157/95; PULSE 133; RESP 17; O2SAT 94
[2023-04-24 09:44] VITALS: BP 145/94; PULSE 111; RESP 18; TEMP 36.7; O2SAT 97
== END 2023-04-24 10:02 | disposition home or self-care (01) ==
PROVIDERS: PCP Nurse Practitioner Family; Visit Provider Psychiatry & Neurology Psychiatry
PROC: (CPT 90870; principal; 2023-04-24 09:00)
DX: F33.2 Major depressive disorder, recurrent severe without psychotic features (principal)
CPT/HCPCS: 90870; J0330; J2250; J2405

== ENCOUNTER → 2023-04-24 07:57 | Outpatient (BNV) | payer MEDICARE, OTHER, SELFPAY | PROVIDERS: PCP Nurse Practitioner Family; Visit Provider Psychiatry & Neurology Psychiatry | DX: F33.3 Major depressive disorder, recurrent, severe with psychotic symptoms (principal) | CPT/HCPCS: 90870 ==

== ENCOUNTER 2023-05-22 07:46 | Day surgery (SDC) | payer MEDICARE, OTHER, SELFPAY ==
[2023-05-22 08:04] VITALS: BP 141/85; PULSE 112; RESP 22; TEMP 36.2; O2SAT 96
--- NOTE | 2023-05-22 08:32 | P.CONAN_ITS ---
[facility] Active Problems Active Problems: All Active Problems (Updated 08/21/21 @ 09:05 by Leila Bryson APRN) Major depressive disorder, recurrent, severe with psychotic features (Acute) Depression (Acute) Physical deconditioning (Acute) Preoperative cardiovascular examination (Acute) Anemia (Acute) GERD (gastroesophageal reflux disease) (Acute) Past Medical History Medical History COVID-19 vaccine administered Dementia Depression Diverticulitis of colon with perforation GERD (gastroesophageal reflux disease) History of electroconvulsive therapy HTN (hypertension) Hyperlipidemia Major depressive disorder, recurrent, severe with psychotic features Pulmonary embolism SVT (supraventricular tachycardia) Family History Family History Brother Blood clot in vein Other No history of cardiac disorder Family history of problems with anesthesia: No Surgical History Surgical History H/O colonoscopy H/O hernia repair History of colostomy reversal History of esophagogastroduodenoscopy (EGD) Status post Paula's procedure History of Problems with Anesthesia: No Social History Social History Household Members: Other Housing: Assisted Living Facility Are you a primary post acute care registered nurse to a significant other at home: No Do you presently have visiting nurse or other home services: No Alcohol intake: former Patient Tobacco Use Status: Never used Tobacco Second Hand Smoke Exposure: No Advance Directives: No Advance Directives Information Provided: Yes Advance Directives Date on File: 07/27/20 service: Yes Current occupational status: retired Sexual orientation: Straight/Heterosexual Meds Allergies Allergy/AdvReac Type Severity Reaction Status Date / Time No Known Allergies Allergy Verified 01/25/21 06:43 [No Known Allergies*] Exam Exam Date and Time: May 22, 2023 0832 Height,Weight and Vital Signs: Last Vital Signs Temp 97.2 F 05/22/23 08:04 Pulse 112 H 05/22/23 08:04 Resp 22 H 05/22/23 08:04 BP 141/85 H 05/22/23 08:04 Pulse Ox 96 05/22/23 08:04 O2 Del Method Room Air 05/22/23 08:04 Airway Mallampati Class: III TM Dist: >3cm Neck ROM: Full Denture: Upper Assessment and Plan Assessment Anesthesia Assessment: Anesthesia Plan Discussed and Chart Reviewed Final Anesthetic Review Family History of Problems with Anesthesia: No History of Problems with Anesthesia: No NPO: Yes ASA Class: III Final Preanesthetic Review: No Changes in Pt Med Stat, Meds/Allgs Chart Reviewed, Consent Obtained/Reviewed and Anes Risks/Benef Reviewed Patient Risk: Intermediate Procedure Risk: Intermediate Anesthetic Plan Anesthetic Plan: GA Disposition: Standard PACU
--- NOTE | 2023-05-22 09:12 | MHC.SHP ---
Pre-Procedural Eval Section A Date of Service: 05/22/23 The patient is an INPATIENT: No Changes since office visit: No Cold of Flu in the past 2 weeks, No New Medical Problems, No Changes in Medication and No Patient answered all questions The History & Physical has been completed within 30 days and I have reviewed it.: Yes Section B Chief Complaint: Major depressive disorder, recurrent, severe Details of Present Illness: Chronic MDD, stable Relevant Family History (Specify if Yes): Yes Relevant Social History: None Present Medications: see Short Stay Collaborative assessment Medical History: No relevant PMH History of Previous Operations: No relevant previous surgery Allergies: Allergies Allergy/AdvReac Type Severity Reaction Status Date / Time No Known Allergies Allergy Verified 01/25/21 06:43 [No Known Allergies*] Review of Systems Sugical H&P ROS: Negative: Constitution, Cardiovascular, Respiratory, Neurological, Psychiatric, Hem-Onc, Allergic/Immunologic, Gastrointestinal, Genitourinary, Musculoskeletal, Integumentary, Endocrine and Eyes/Ears/Nose/Throat Exam Surgical H&P Exam: Normal: HEENT, Normal: Heart, Normal: Lungs, Normal: Extremities, Normal: Abdomen, Normal: Skin and Normal: Neurological Plan Diagnosis/Plan: Unchanged I have reviewed the history and physical and performed a pertinent physical examination on my patient. No changes have occurred unless specified. Time Spent With Patient Time: Total time managing care of this patient today __20__ minutes.
--- NOTE | 2023-05-22 09:26 | HO.ECTPROC ---
ECT Procedure Note Diagnosis/Treatment Date of Service: 05/22/23 Diagnosis: Major Depressive Disorder Previous ECT Date: 04/24/23 Treatment: Maintenance Interval Clinical Notes: The patient reported no new symptoms, he looks euthymic. Time: Total time managing care of this patient today _30___ minutes. ECT Settings Device: THYMATRON DGx Electrode Placement: Bifrontal Program/Pulse Width: 0.25 Energy Percent: 100 Seizure Duration By EEG (in seconds): 68 By Motor Observation (in seconds): 60 Medications Administration General Anesthetic: Etomidate (16) Muscle Relaxant: Succinylcholine (100) Ancillary Medications Anti-emetics: Zofran - Pre ECT Miscillaneous Medications: Propofol Airway Management Airway Management: Bag Mask Ventilation Treatment Recommendations No Changes Recommended: No change Pt Tolerated Procedure w/o Issue: Yes
[2023-05-22 09:30] VITALS: BP 133/78; PULSE 103; RESP 16; TEMP 37; O2SAT 96
[2023-05-22 09:35] VITALS: BP 139/73; PULSE 101; RESP 16; O2SAT 96
[2023-05-22 09:40] VITALS: BP 126/85; PULSE 95; RESP 16; O2SAT 96
[2023-05-22 09:45] VITALS: BP 135/84; PULSE 120; RESP 20; O2SAT 94
[2023-05-22 10:00] VITALS: BP 134/73; PULSE 121; RESP 16; O2SAT 95
== END 2023-05-22 10:40 | disposition home or self-care (01) ==
PROVIDERS: PCP Nurse Practitioner Family; Visit Provider Psychiatry & Neurology Psychiatry
PROC: (CPT 90870; principal; 2023-05-22 09:00)
DX: F33.2 Major depressive disorder, recurrent severe without psychotic features (principal); F41.1 Generalized anxiety disorder; I26.99 Other pulmonary embolism without acute cor pulmonale; E78.5 Hyperlipidemia, unspecified; K21.9 Gastro-esophageal reflux disease without esophagitis; Z79.01 Long term (current) use of anticoagulants; Z79.899 Other long term (current) drug therapy
CPT/HCPCS: 90870; J0330; J2250; J2405

== ENCOUNTER → 2023-05-22 07:46 | Outpatient (BNV) | payer MEDICARE, OTHER, SELFPAY | PROVIDERS: PCP Nurse Practitioner Family; Visit Provider Psychiatry & Neurology Psychiatry | DX: F33.3 Major depressive disorder, recurrent, severe with psychotic symptoms (principal) | CPT/HCPCS: 90870 ==

== ENCOUNTER 2023-06-19 07:55 | Day surgery (SDC) | payer MEDICARE, OTHER, SELFPAY ==
--- NOTE | 2023-06-19 08:13 | P.CONAN_ITS ---
[facility] Active Problems Active Problems: All Active Problems (Updated 06/16/23 @ 11:17 by [employer] [place]) Major depressive disorder, recurrent, severe with psychotic features (Acute) Depression (Acute) Physical deconditioning (Acute) Preoperative cardiovascular examination (Acute) Anemia (Acute) GERD (gastroesophageal reflux disease) (Acute) Past Medical History Medical History COVID-19 vaccine administered Dementia Depression Diverticulitis of colon with perforation GERD (gastroesophageal reflux disease) History of electroconvulsive therapy HTN (hypertension) Hyperlipidemia Major depressive disorder, recurrent, severe with psychotic features Pulmonary embolism SVT (supraventricular tachycardia) Family History Family History Brother Blood clot in vein Other No history of cardiac disorder Family history of problems with anesthesia: No Surgical History Surgical History H/O colonoscopy H/O hernia repair History of colostomy reversal History of esophagogastroduodenoscopy (EGD) Status post Paula's procedure History of Problems with Anesthesia: No Social History Social History Household Members: Other Housing: Assisted Living Facility Are you a primary reservoir caretaker to a significant other at home: No Do you presently have visiting nurse or other home services: No Alcohol intake: former Patient Tobacco Use Status: Never used Tobacco Second Hand Smoke Exposure: No Advance Directives: No Advance Directives Information Provided: Yes Advance Directives Date on File: 07/27/20 service: Yes Current occupational status: retired Sexual orientation: Straight/Heterosexual Meds Allergies Allergy/AdvReac Type Severity Reaction Status Date / Time No Known Allergies Allergy Verified 01/25/21 06:43 [No Known Allergies*] Exam Exam Date and Time: June 19, 2023 0813 Airway Mallampati Class: II TM Dist: >3cm Neck ROM: Full Denture: Upper Heart: tachy Lungs: cta Assessment and Plan Assessment Anesthesia Assessment: Anesthesia Plan Discussed and Chart Reviewed Final Anesthetic Review Family History of Problems with Anesthesia: No History of Problems with Anesthesia: No NPO: Yes ASA Class: III Final Preanesthetic Review: No Changes in Pt Med Stat, Meds/Allgs Chart Reviewed and Consent Obtained/Reviewed Patient Risk: Intermediate Procedure Risk: Intermediate Anesthetic Plan Anesthetic Plan: GA Disposition: Standard PACU
[2023-06-19 08:28] VITALS: BP 136/84; PULSE 109; RESP 20; TEMP 37.1; O2SAT 95; BMI 25.8
[2023-06-19 09:06] LABS: MANUAL DIFF FLAG NO
[2023-06-19 09:09] LABS: Basophils Percent Auto 0.5 % (0-2); Eosinophils Absolute Auto 0.1 X10*3/uL (0.0-0.4); Eosinophils Percent Auto 1.7 % (0-4); Hematocrit 38.2 % (42.0-52.0); Hemoglobin 13.2 g/dl (14.0-18.0); Imm Gran Abs Auto 0.01 X10*3/uL (0.00-0.03); Imm Gran Pct Auto 0.2 % (0.0-0.4); Lymphocytes Absolute Auto 1.2 X10*3/uL (1.2-4.9); Lymphocytes Percent Auto 20.3 % (20-40); Mean Corpuscular HGB Conc 34.6 g/dl (31.0-36.0); Mean Corpuscular Hemoglobin 33.5 pg (27.0-33.0); Mean Platelet Volume 9.1 fL (9.4-12.4); Monocytes Absolute Auto 0.5 X10*3/uL (0.1-1.2); Monocytes Percent Auto 8.4 % (2-11); Neutrophils Absolute Auto 4.2 x10*3/uL (2.0-8.3); Neutrophils Percent Auto 68.9 % (45-73); Platelet Count 179 X10*3/uL (160-400); Red Blood Count 3.94 X10*6/uL (4.60-5.80); White Blood Count 6.1 X10*3/uL (4.8-10.8)
--- NOTE | 2023-06-19 09:32 | MHC.SHP ---
Pre-Procedural Eval Section A Date of Service: 06/19/23 The patient is an INPATIENT: No Changes since office visit: Yes New Medical Problems; No Cold of Flu in the past 2 weeks The History & Physical has been completed within 30 days and I have reviewed it.: Yes Section B Chief Complaint: depression Details of Present Illness: recurrent depression doing well stable Relevant Family History (Specify if Yes): Yes Relevant Social History: None Present Medications: see Short Stay Collaborative assessment Medical History: No relevant PMH History of Previous Operations: No relevant previous surgery Allergies: Allergies Allergy/AdvReac Type Severity Reaction Status Date / Time No Known Allergies Allergy Verified 01/25/21 06:43 [No Known Allergies*] Review of Systems Sugical H&P ROS: Negative: Constitution, Cardiovascular, Respiratory, Neurological, Psychiatric, Hem-Onc, Allergic/Immunologic, Genitourinary, Musculoskeletal, Integumentary, Endocrine and Eyes/Ears/Nose/Throat and Yes, Specify: Gastrointestinal (rectal bleedinh=g hct 39) Exam Surgical H&P Exam: Normal: HEENT, Normal: Heart, Normal: Lungs, Normal: Extremities, Normal: Skin and Normal: Neurological and Significant Findings: Abdomen (rectal bleeding) Plan Diagnosis/Plan: Change I have reviewed the history and physical and performed a pertinent physical examination on my patient. No changes have occurred unless specified. call to dr kirby office for f/u Time Spent With Patient Time: Total time managing care of this patient today ____ minutes.
[2023-06-19 09:52] VITALS: BP 149/91; PULSE 111; RESP 16; TEMP 37.1; O2SAT 95
[2023-06-19 09:57] VITALS: BP 145/98; PULSE 117; RESP 22; O2SAT 98
[2023-06-19 10:07] VITALS: BP 145/93; PULSE 118; RESP 20; O2SAT 97
--- NOTE | 2023-06-19 10:21 | P.PCN_ITS ---
ECT Procedure Note Diagnosis/Treatment Date of Service: 06/19/23 Diagnosis: Major Depressive Disorder Previous ECT Date: 05/22/23 Treatment: Maintenance Interval Clinical Notes: The patient reportedly has been feeling well notes rectal bleeding hct 38.2 stable from previous call placed to dr white will see pt next wk vss procedure was completed Time: Total time managing care of this patient today ____ minutes. ECT Settings Device: THYMATRON DGx Electrode Placement: Bifrontal Program/Pulse Width: 0.25 Energy Percent: 100 Seizure Duration By EEG (in seconds): 49 Medications Administration General Anesthetic: Etomidate (16) Muscle Relaxant: Succinylcholine (100) Ancillary Medications Anti-emetics: Zofran - Pre ECT Cardiovascular Medications: Esmolol (10 plus 10) Miscillaneous Medications: Midazolam (1mg) Airway Management Airway Management: Bag Mask Ventilation Treatment Recommendations No Changes Recommended: No change Notes: Patient with reported hemorrhoids and rectal bleeding. Hematocrit appeared not significantly changed from last noted hematocrit patient does see Dr. White and did discuss the issue of rectal bleeding and he will see the patient next week. Patient advised to go to the emergency room any increase in bleeding sh ortness of breath weakness patient did tolerate the procedure and has done remarkably well with maintenance ECT. He is future oriented pleasant always has some pre ECT anxiety but has not been psychotic or clinically depressed when he has routine maintenance treatment. Would increase postop Versed back to 2 mg Pt Tolerated Procedure w/o Issue: Yes
[2023-06-19 10:22] VITALS: BP 131/78; PULSE 101; RESP 18; TEMP 36.3; O2SAT 96
== END 2023-06-19 11:15 | disposition home or self-care (01) ==
PROVIDERS: PCP Nurse Practitioner Family; Visit Provider Psychiatry & Neurology Psychiatry
PROC: (CPT 90870; principal; 2023-06-19 09:00)
DX: F33.2 Major depressive disorder, recurrent severe without psychotic features (principal); F03.90 Unspecified dementia, unspecified severity, without behavioral disturbance, psychotic disturbance, mood disturbance, and anxiety; K62.5 Hemorrhage of anus and rectum; K64.8 Other hemorrhoids; I10 Essential (primary) hypertension; I26.99 Other pulmonary embolism without acute cor pulmonale; Z79.01 Long term (current) use of anticoagulants; I47.1 Supraventricular tachycardia; D64.9 Anemia, unspecified; K21.9 Gastro-esophageal reflux disease without esophagitis; Z98.890 Other specified postprocedural states
CPT/HCPCS: 36415; 85025; 90870; J0330; J2250; J2405

== ENCOUNTER → 2023-06-19 07:55 | Outpatient (BNV) | payer MEDICARE, OTHER, SELFPAY | PROVIDERS: PCP Nurse Practitioner Family; Visit Provider Psychiatry & Neurology Psychiatry | DX: F33.3 Major depressive disorder, recurrent, severe with psychotic symptoms (principal) | CPT/HCPCS: 90870 ==

== ENCOUNTER 2023-07-24 07:54 | Day surgery (SDC) | payer MEDICARE, OTHER, SELFPAY ==
[2023-07-24 08:07] VITALS: BP 140/81; PULSE 116; RESP 22; TEMP 36.8; O2SAT 95; BMI 25.8
--- NOTE | 2023-07-24 08:23 | HO.ANESPROP2 ---
[facility] Active Problems Active Problems: All Active Problems (Updated 06/16/23 @ 11:17 by [employer] [place]) Major depressive disorder, recurrent, severe with psychotic features (Acute) Depression (Acute) Physical deconditioning (Acute) Preoperative cardiovascular examination (Acute) Anemia (Acute) GERD (gastroesophageal reflux disease) (Acute) Past Medical History Medical History COVID-19 vaccine administered Dementia Depression Diverticulitis of colon with perforation GERD (gastroesophageal reflux disease) History of electroconvulsive therapy HTN (hypertension) Hyperlipidemia Major depressive disorder, recurrent, severe with psychotic features Pulmonary embolism SVT (supraventricular tachycardia) Family History Family History Brother Blood clot in vein Other No history of cardiac disorder Family history of problems with anesthesia: No Surgical History Surgical History H/O colonoscopy H/O hernia repair History of colostomy reversal History of esophagogastroduodenoscopy (EGD) Status post Paula's procedure History of Problems with Anesthesia: No Social History Social History Household Members: Other Housing: Assisted Living Facility Are you a primary customer care representative to a significant other at home: No Do you presently have visiting nurse or other home services: No Alcohol intake: former Patient Tobacco Use Status: Never used Tobacco Second Hand Smoke Exposure: No Advance Directives: No Advance Directives Information Provided: Yes Advance Directives Date on File: 07/27/20 service: Yes Current occupational status: retired Sexual orientation: Straight/Heterosexual Meds Allergies Allergy/AdvReac Type Severity Reaction Status Date / Time No Known Allergies Allergy Verified 01/25/21 06:43 [No Known Allergies*] Exam Exam Date and Time: July 24, 2023822 Height,Weight and Vital Signs: Height 5 ft 11 in Weight 83.915 kg Last Vital Signs Temp 98.2 F 07/24/23 08:07 Pulse 116 H 07/24/23 08:07 Resp 22 H 07/24/23 08:07 BP 140/81 H 07/24/23 08:07 Pulse Ox 95 07/24/23 08:07 O2 Del Method Room Air 07/24/23 08:07 Airway Mallampati Class: II TM Dist: >3cm Neck ROM: Full Denture: Upper Heart: tachy Lungs: cta Assessment and Plan Assessment Anesthesia Assessment: Anesthesia Plan Discussed and Chart Reviewed Final Anesthetic Review Family History of Problems with Anesthesia: No History of Problems with Anesthesia: No NPO: Yes ASA Class: III Final Preanesthetic Review: No Changes in Pt Med Stat, Meds/Allgs Chart Reviewed and Consent Obtained/Reviewed Patient Risk: Intermediate Procedure Risk: Intermediate Anesthetic Plan Anesthetic Plan: GA Disposition: Standard PACU
--- NOTE | 2023-07-24 09:00 | MHC.SHP ---
Pre-Procedural Eval Section A Date of Service: 07/24/23 The patient is an INPATIENT: No Changes since office visit: Yes Patient answered all questions; No Cold of Flu in the past 2 weeks, No New Medical Problems and No Changes in Medication The History & Physical has been completed within 30 days and I have reviewed it.: No Section B Chief Complaint: depression Details of Present Illness: recurrent depression doing well stable Relevant Family History (Specify if Yes): Yes Relevant Social History: None Present Medications: see Short Stay Collaborative assessment Medical History: No relevant PMH History of Previous Operations: No relevant previous surgery Allergies: Allergies Allergy/AdvReac Type Severity Reaction Status Date / Time No Known Allergies Allergy Verified 01/25/21 06:43 [No Known Allergies*] Review of Systems Sugical H&P ROS: Negative: Constitution, Cardiovascular, Respiratory, Neurological, Psychiatric, Hem-Onc, Allergic/Immunologic, Genitourinary, Musculoskeletal, Integumentary, Endocrine and Eyes/Ears/Nose/Throat and Yes, Specify: Gastrointestinal (rectal bleedinh=g hct 39) Exam Surgical H&P Exam: Normal: HEENT, Normal: Heart, Normal: Lungs, Normal: Extremities, Normal: Skin and Normal: Neurological and Significant Findings: Abdomen (rectal bleeding) Plan Diagnosis/Plan: Change I have reviewed the history and physical and performed a pertinent physical examination on my patient. No changes have occurred unless specified. Time Spent With Patient Time: Total time managing care of this patient today ____ minutes.
[2023-07-24 09:19] VITALS: BP 142/95; PULSE 104; RESP 16; TEMP 37.2; O2SAT 99
[2023-07-24 09:24] VITALS: BP 144/96; PULSE 133; RESP 20; O2SAT 95
[2023-07-24 09:29] VITALS: BP 157/91; PULSE 121; RESP 20; O2SAT 96
[2023-07-24 09:34] VITALS: BP 142/97; PULSE 127; RESP 20; O2SAT 96
[2023-07-24 09:49] VITALS: BP 144/86; PULSE 137; RESP 22; TEMP 37.2; O2SAT 96
--- NOTE | 2023-08-02 20:16 | HO.ECTPROC ---
ECT Procedure Note Diagnosis/Treatment Date of Service: 07/24/23 Diagnosis: Major Depressive Disorder Previous ECT Date: 05/22/23 Treatment: Maintenance Interval Clinical Notes: pt continues to do quite well stable pleasant able to enjoy things Time: Total time managing care of this patient today ____ minutes. ECT Settings Device: THYMATRON DGx Electrode Placement: Bifrontal Program/Pulse Width: 0.25 Energy Percent: 100 Seizure Duration By EEG (in seconds): 36 Medications Administration General Anesthetic: Etomidate (16) Muscle Relaxant: Succinylcholine (100) Ancillary Medications Anti-emetics: Zofran - Pre ECT Cardiovascular Medications: Esmolol (10 plus 10) Miscillaneous Medications: Midazolam (1mg) Airway Management Airway Management: Bag Mask Ventilation Treatment Recommendations No Changes Recommended: No change Notes: pt stable no change indicated mood markedly stable with ect f/u tx 4 wks Pt Tolerated Procedure w/o Issue: Yes
== END 2023-07-24 10:05 | disposition home or self-care (01) ==
PROVIDERS: PCP Nurse Practitioner Family; Visit Provider Psychiatry & Neurology Psychiatry
PROC: (CPT 90870; principal; 2023-07-24 09:00)
DX: F33.2 Major depressive disorder, recurrent severe without psychotic features (principal); F03.90 Unspecified dementia, unspecified severity, without behavioral disturbance, psychotic disturbance, mood disturbance, and anxiety; D64.9 Anemia, unspecified; K21.9 Gastro-esophageal reflux disease without esophagitis; I10 Essential (primary) hypertension; I26.99 Other pulmonary embolism without acute cor pulmonale; I47.10 Supraventricular tachycardia, unspecified; Z79.01 Long term (current) use of anticoagulants; Z98.890 Other specified postprocedural states
CPT/HCPCS: 90870; J0330; J2250; J2405

== ENCOUNTER → 2023-07-24 07:54 | Outpatient (BNV) | payer MEDICARE, OTHER, SELFPAY | PROVIDERS: PCP Nurse Practitioner Family; Visit Provider Psychiatry & Neurology Psychiatry | DX: F33.3 Major depressive disorder, recurrent, severe with psychotic symptoms (principal) | CPT/HCPCS: 90870 ==

== ENCOUNTER 2023-08-21 07:50 | Day surgery (SDC) | payer MEDICARE, OTHER, SELFPAY ==
--- NOTE | 2023-08-21 07:46 | MHC.SHP ---
Pre-Procedural Eval Section A Date of Service: 08/21/23 Changes since office visit: Yes Patient answered all questions; No Cold of Flu in the past 2 weeks, No New Medical Problems and No Changes in Medication The History & Physical has been completed within 30 days and I have reviewed it.: Yes Section B Chief Complaint: depression Allergies: Allergies Allergy/AdvReac Type Severity Reaction Status Date / Time No Known Allergies Allergy Verified 01/25/21 06:43 [No Known Allergies*] Plan I have reviewed the history and physical and performed a pertinent physical examination on my patient. No changes have occurred unless specified. Time Spent With Patient Time: Total time managing care of this patient today ____ minutes.
[2023-08-21 08:16] VITALS: BP 163/103; PULSE 125; RESP 22; TEMP 36.6; O2SAT 96; BMI 25.8
--- NOTE | 2023-08-21 08:24 | HO.ANESPROP2 ---
[facility] Active Problems Active Problems: All Active Problems (Updated 06/16/23 @ 11:17 by [employer] [place]) Major depressive disorder, recurrent, severe with psychotic features (Acute) Depression (Acute) Physical deconditioning (Acute) Preoperative cardiovascular examination (Acute) Anemia (Acute) GERD (gastroesophageal reflux disease) (Acute) Past Medical History Medical History COVID-19 vaccine administered Dementia Depression Diverticulitis of colon with perforation GERD (gastroesophageal reflux disease) History of electroconvulsive therapy HTN (hypertension) Hyperlipidemia Major depressive disorder, recurrent, severe with psychotic features Pulmonary embolism SVT (supraventricular tachycardia) Family History Family History Brother Blood clot in vein Other No history of cardiac disorder Family history of problems with anesthesia: No Surgical History Surgical History H/O colonoscopy H/O hernia repair History of colostomy reversal History of esophagogastroduodenoscopy (EGD) Status post Paula's procedure History of Problems with Anesthesia: No Social History Social History Household Members: Other Housing: Assisted Living Facility Are you a primary home care chaplain to a significant other at home: No Do you presently have visiting nurse or other home services: No Alcohol intake: former Patient Tobacco Use Status: Never used Tobacco Second Hand Smoke Exposure: No Advance Directives: No Advance Directives Information Provided: Yes Advance Directives Date on File: 07/27/20 service: Yes Current occupational status: retired Sexual orientation: Straight/Heterosexual Meds Allergies Allergy/AdvReac Type Severity Reaction Status Date / Time No Known Allergies Allergy Verified 01/25/21 06:43 [No Known Allergies*] Active Medications: Current Medications Lactated Ringer's (Lr) 1,000 mls @ 50 mls/hr IVCONT .Q20H ROMMEL Exam Height,Weight and Vital Signs: Height 5 ft 11 in Weight 83.915 kg Last Vital Signs Temp 97.8 F 08/21/23 08:16 Pulse 125 H 08/21/23 08:16 Resp 22 H 08/21/23 08:16 BP 163/103 H 08/21/23 08:16 Pulse Ox 96 08/21/23 08:16 O2 Del Method Room Air 08/21/23 08:16 Airway Mallampati Class: II TM Dist: >3cm Neck ROM: Full Denture: Upper Heart: rrr Lungs: cta Assessment and Plan Assessment Anesthesia Assessment: Anesthesia Plan Discussed and Chart Reviewed Final Anesthetic Review Family History of Problems with Anesthesia: No History of Problems with Anesthesia: No NPO: Yes ASA Class: III Final Preanesthetic Review: No Changes in Pt Med Stat, Meds/Allgs Chart Reviewed and Consent Obtained/Reviewed Patient Risk: Intermediate Procedure Risk: Intermediate Anesthetic Plan Anesthetic Plan: GA Disposition: Standard PACU
[2023-08-21 09:30] VITALS: BP 165/100; PULSE 118; RESP 20; TEMP 37.4; O2SAT 98
[2023-08-21 09:35] VITALS: BP 139/88; PULSE 122; RESP 20; O2SAT 98
[2023-08-21 09:40] VITALS: BP 145/91; PULSE 120; RESP 20; O2SAT 95
[2023-08-21 09:45] VITALS: BP 147/99; PULSE 128; RESP 22; O2SAT 96
[2023-08-21 10:00] VITALS: BP 130/86; PULSE 120; RESP 22; TEMP 37.1; O2SAT 96
[2023-08-21] MEDS: Acetaminophen 325 MG TABLET 650 MG PO (10:59)
--- NOTE | 2023-08-21 22:39 | HO.ECTPROC ---
ECT Procedure Note Diagnosis/Treatment Date of Service: 08/21/23 Diagnosis: Major Depressive Disorder Previous ECT Date: 07/24/23 Treatment: Maintenance Interval Clinical Notes: pt continues to do quite well stable pleasant able to enjoy things recent medical a [facility] went well patient future oriented no new medical problems Time: Total time managing care of this patient today ____ minutes. ECT Settings Device: THYMATRON DGx Electrode Placement: Bifrontal Program/Pulse Width: 0.25 Energy Percent: 100 Seizure Duration By EEG (in seconds): 38 Medications Administration General Anesthetic: Etomidate (14) Muscle Relaxant: Succinylcholine (100) Ancillary Medications Anti-emetics: Zofran - Pre ECT Cardiovascular Medications: Esmolol (10 x3) Miscillaneous Medications: Midazolam (1mg) Airway Management Airway Management: Bag Mask Ventilation Treatment Recommendations No Changes Recommended: No change Notes: pt stable no change indicated mood markedly stable with ect f/u tx 4 wks continue current maintenance ECT regimen has done quite well with this Pt Tolerated Procedure w/o Issue: Yes
== END 2023-08-21 11:12 | disposition home or self-care (01) ==
PROVIDERS: PCP Nurse Practitioner Family; Visit Provider Psychiatry & Neurology Psychiatry
PROC: (CPT 90870; principal; 2023-08-21 09:00)
DX: F33.2 Major depressive disorder, recurrent severe without psychotic features (principal); F03.90 Unspecified dementia, unspecified severity, without behavioral disturbance, psychotic disturbance, mood disturbance, and anxiety; D64.9 Anemia, unspecified; E78.2 Mixed hyperlipidemia; I26.99 Other pulmonary embolism without acute cor pulmonale; K21.9 Gastro-esophageal reflux disease without esophagitis; Z79.01 Long term (current) use of anticoagulants; Z79.899 Other long term (current) drug therapy
CPT/HCPCS: 90870; J0330; J1805; J2250; J2405

== ENCOUNTER → 2023-08-21 07:50 | Outpatient (BNV) | payer MEDICARE, OTHER, SELFPAY | PROVIDERS: PCP Nurse Practitioner Family; Visit Provider Psychiatry & Neurology Psychiatry | DX: F33.3 Major depressive disorder, recurrent, severe with psychotic symptoms (principal) | CPT/HCPCS: 90870 ==

== ENCOUNTER 2023-09-18 07:46 | Day surgery (SDC) | payer MEDICARE, OTHER, SELFPAY ==
[2023-09-18 08:00] VITALS: BP 148/93; PULSE 133; RESP 18; TEMP 36.3; O2SAT 93; BMI 25.8
--- NOTE | 2023-09-18 08:09 | P.CONAN_ITS ---
[facility] Active Problems Active Problems: All Active Problems (Updated 06/16/23 @ 11:17 by [employer] [place]) Major depressive disorder, recurrent, severe with psychotic features (Acute) Depression (Acute) Physical deconditioning (Acute) Preoperative cardiovascular examination (Acute) Anemia (Acute) GERD (gastroesophageal reflux disease) (Acute) Past Medical History Medical History COVID-19 vaccine administered Dementia Depression Diverticulitis of colon with perforation GERD (gastroesophageal reflux disease) History of electroconvulsive therapy HTN (hypertension) Hyperlipidemia Major depressive disorder, recurrent, severe with psychotic features Pulmonary embolism SVT (supraventricular tachycardia) Family History Family History Brother Blood clot in vein Other No history of cardiac disorder Family history of problems with anesthesia: No Surgical History Surgical History H/O colonoscopy H/O hernia repair History of colostomy reversal History of esophagogastroduodenoscopy (EGD) Status post Paula's procedure History of Problems with Anesthesia: No Social History Social History Household Members: Other Housing: Assisted Living Facility Are you a primary rn coronary care unit to a significant other at home: No Do you presently have visiting nurse or other home services: No Alcohol intake: former Comment: Much improved balance and gait. Patient Tobacco Use Status: Never used Tobacco Second Hand Smoke Exposure: No Advance Directives: No Advance Directives Information Provided: Yes Advance Directives Date on File: 07/27/20 service: Yes Current occupational status: retired Sexual orientation: Straight/Heterosexual Meds Allergies Allergy/AdvReac Type Severity Reaction Status Date / Time No Known Allergies Allergy Verified 01/25/21 06:43 [No Known Allergies*] Exam Height,Weight and Vital Signs: Height 5 ft 11 in Weight 83.915 kg Last Vital Signs Temp 97.4 F 09/18/23 08:00 Pulse 133 H 09/18/23 08:00 Resp 18 09/18/23 08:00 BP 148/93 H 09/18/23 08:00 Pulse Ox 93 09/18/23 08:00 O2 Del Method Room Air 09/18/23 08:00 Airway Mallampati Class: II TM Dist: >3cm Neck ROM: Full Denture: Upper Heart: rrr Lungs: cta Assessment and Plan Assessment Anesthesia Assessment: Anesthesia Plan Discussed and Chart Reviewed Final Anesthetic Review Family History of Problems with Anesthesia: No History of Problems with Anesthesia: No NPO: Yes ASA Class: III Final Preanesthetic Review: No Changes in Pt Med Stat, Meds/Allgs Chart Reviewed and Consent Obtained/Reviewed Patient Risk: Intermediate Procedure Risk: Intermediate Anesthetic Plan Anesthetic Plan: GA Disposition: Standard PACU
--- NOTE | 2023-09-18 08:51 | P.HPSUR_ITS ---
Pre-Procedural Eval Section A Date of Service: 09/18/23 The patient is an INPATIENT: No Changes since office visit: Yes Cold of Flu in the past 2 weeks, Yes New Medical Problems, Yes Changes in Medication and Yes Patient answered all questions The History & Physical has been completed within 30 days and I have reviewed it.: Yes Section B Chief Complaint: depression Details of Present Illness: Hx of depression, chronically ill, no new symptoms, looks at baseline Relevant Family History (Specify if Yes): No Relevant Social History: None Present Medications: see Short Stay Collaborative assessment History of Previous Operations: No relevant previous surgery Allergies: Allergies Allergy/AdvReac Type Severity Reaction Status Date / Time No Known Allergies Allergy Verified 01/25/21 06:43 [No Known Allergies*] Review of Systems Sugical H&P ROS: Negative: Constitution, Cardiovascular, Respiratory, Neurological, Psychiatric, Hem-Onc, Allergic/Immunologic, Gastrointestinal, Ge nitourinary, Musculoskeletal, Integumentary, Endocrine and Eyes/Ears/Nose/Throat Exam Surgical H&P Exam: Normal: HEENT, Normal: Heart, Normal: Lungs, Normal: Extremities, Normal: Abdomen, Normal: Skin and Normal: Neurological Plan Diagnosis/Plan: Unchanged I have reviewed the history and physical and performed a pertinent physical examination on my patient. No changes have occurred unless specified. Time Spent With Patient Time: Total time managing care of this patient today ___30_ minutes.
--- NOTE | 2023-09-18 08:53 | HO.ECTPROC ---
ECT Procedure Note Diagnosis/Treatment Date of Service: 09/18/23 Diagnosis: Major Depressive Disorder Previous ECT Date: 08/21/23 Treatment: Maintenance Interval Clinical Notes: The patient denies new symptoms, he looks much awake and alert than usual. We called his guardian and gave us consent for ECT and anesthesia. Procedure done as usual, no complications, needed Esmolol as before. Time: Total time managing care of this patient today __30__ minutes. ECT Settings Device: THYMATRON DGx Electrode Placement: Bifrontal Program/Pulse Width: 0.25 Energy Percent: 100 Seizure Duration By EEG (in seconds): 38 Medications Administration General Anesthetic: Etomidate (14) Muscle Relaxant: Succinylcholine (100) Ancillary Medications Analgesics: Torodol - Pre ECT Anti-emetics: Zofran - Pre ECT Cardiovascular Medications: Esmolol (10 mg x 3) Miscillaneous Medications: Other (Midazolam 1 mg after ECT) Treatment Recommendations No Changes Recommended: No change Pt Tolerated Procedure w/o Issue: Yes
[2023-09-18 09:08] VITALS: BP 162/111; PULSE 113; RESP 22; TEMP 36.9; O2SAT 100
[2023-09-18 09:13] VITALS: BP 140/90; PULSE 134; RESP 20; O2SAT 96
[2023-09-18 09:18] VITALS: BP 135/91; PULSE 129; RESP 22; O2SAT 96
[2023-09-18 09:23] VITALS: BP 137/94; PULSE 130; RESP 22; O2SAT 96
[2023-09-18 09:38] VITALS: BP 143/88; PULSE 130; RESP 16; TEMP 36.9; O2SAT 95
== END 2023-09-18 10:35 | disposition home or self-care (01) ==
PROVIDERS: PCP Nurse Practitioner Family; Visit Provider Psychiatry & Neurology Psychiatry
PROC: (CPT 90870; principal; 2023-09-18 09:00)
DX: F33.2 Major depressive disorder, recurrent severe without psychotic features (principal); F03.90 Unspecified dementia, unspecified severity, without behavioral disturbance, psychotic disturbance, mood disturbance, and anxiety; D64.9 Anemia, unspecified; E78.2 Mixed hyperlipidemia; I26.99 Other pulmonary embolism without acute cor pulmonale; K21.9 Gastro-esophageal reflux disease without esophagitis; Z79.01 Long term (current) use of anticoagulants; Z79.899 Other long term (current) drug therapy
CPT/HCPCS: 90870; J0330; J1805; J2250; J2405

== ENCOUNTER → 2023-09-18 07:46 | Outpatient (BNV) | payer MEDICARE, OTHER, SELFPAY | PROVIDERS: PCP Nurse Practitioner Family; Visit Provider Psychiatry & Neurology Psychiatry | DX: F33.3 Major depressive disorder, recurrent, severe with psychotic symptoms (principal) | CPT/HCPCS: 90870 ==

== ENCOUNTER 2023-10-23 07:49 | Day surgery (SDC) | payer MEDICARE, OTHER, SELFPAY ==
[2023-10-23 08:16] VITALS: BP 144/78; PULSE 125; RESP 22; TEMP 36.6; O2SAT 96; BMI 25.8
--- NOTE | 2023-10-23 08:30 | P.CONAN_ITS ---
[facility] Active Problems Active Problems: All Active Problems (Updated 06/16/23 @ 11:17 by [employer] [place]) Major depressive disorder, recurrent, severe with psychotic features (Acute) Depression (Acute) Physical deconditioning (Acute) Preoperative cardiovascular examination (Acute) Anemia (Acute) GERD (gastroesophageal reflux disease) (Acute) Past Medical History Medical History COVID-19 vaccine administered Dementia Depression Diverticulitis of colon with perforation GERD (gastroesophageal reflux disease) History of electroconvulsive therapy HTN (hypertension) Hyperlipidemia Major depressive disorder, recurrent, severe with psychotic features Pulmonary embolism SVT (supraventricular tachycardia) Family History Family History Brother Blood clot in vein Other No history of cardiac disorder Family history of problems with anesthesia: No Surgical History Surgical History H/O colonoscopy H/O hernia repair History of colostomy reversal History of esophagogastroduodenoscopy (EGD) Status post Paula's procedure History of Problems with Anesthesia: No Social History Social History Household Members: Other Housing: Assisted Living Facility Are you a primary caregivers homecare to a significant other at home: No Do you presently have visiting nurse or other home services: No Alcohol intake: former Comment: Much improved balance and gait. Patient Tobacco Use Status: Never used Tobacco Second Hand Smoke Exposure: No Advance Directives: No Advance Directives Information Provided: Yes Advance Directives Date on File: 07/27/20 service: Yes Current occupational status: retired Sexual orientation: Straight/Heterosexual Meds Allergies Allergy/AdvReac Type Severity Reaction Status Date / Time No Known Allergies Allergy Verified 01/25/21 06:43 [No Known Allergies*] Active Medications: Current Medications Lactated Ringer's (Lr) 1,000 mls @ 50 mls/hr IVCONT .Q20H ROMMEL Exam Height,Weight and Vital Signs: Height 5 ft 11 in Weight 83.915 kg Last Vital Signs Temp 97.9 F 10/23/23 08:16 Pulse 125 H 10/23/23 08:16 Resp 22 H 10/23/23 08:16 BP 144/78 H 10/23/23 08:16 Pulse Ox 96 10/23/23 08:16 O2 Del Method Room Air 10/23/23 08:16 Airway Mallampati Class: II TM Dist: >3cm Neck ROM: Full Denture: Upper Heart: rrr Lungs: cta Assessment and Plan Assessment Anesthesia Assessment: Anesthesia Plan Discussed and Chart Reviewed Final Anesthetic Review Family History of Problems with Anesthesia: No History of Problems with Anesthesia: No NPO: Yes ASA Class: III Final Preanesthetic Review: No Changes in Pt Med Stat, Meds/Allgs Chart Reviewed and Consent Obtained/Reviewed Patient Risk: Intermediate Procedure Risk: Intermediate Anesthetic Plan Anesthetic Plan: GA Disposition: Standard PACU
--- NOTE | 2023-10-23 09:01 | MHC.SHP ---
Pre-Procedural Eval Section A Date of Service: 10/23/23 The patient is an INPATIENT: No Changes since office visit: Yes Patient answered all questions; No Cold of Flu in the past 2 weeks, No New Medical Problems and No Changes in Medication The History & Physical has been completed within 30 days and I have reviewed it.: Yes Section B Chief Complaint: depression Details of Present Illness: recurrent psychotic depression Relevant Family History (Specify if Yes): No Relevant Social History: None Present Medications: see Short Stay Collaborative assessment History of Previous Operations: No relevant previous surgery Allergies: Allergies Allergy/AdvReac Type Severity Reaction Status Date / Time No Known Allergies Allergy Verified 01/25/21 06:43 [No Known Allergies*] Review of Systems Sugical H&P ROS: Negative: Constitution, Cardiovascular, Respiratory, Neurological, Psychiatric, Hem-Onc, Allergic/Immunologic, Gastrointestinal, Genitourinary, Musculoskeletal, Integumentary, Endocrine and Eyes/Ears/Nose/Throat Exam Surgical H&P Exam: Normal: HEENT, Normal: Heart, Normal: Lungs, Normal: Extremities, Normal: Abdomen, Normal: Skin and Normal: Neurological Plan Diagnosis/Plan: Unchanged I have reviewed the history and physical and performed a pertinent physical examination on my patient. No changes have occurred unless specified. Time Spent With Patient Time: Total time managing care of this patient today _30___ minutes.
[2023-10-23 09:14] VITALS: BP 144/92; PULSE 108; RESP 16; TEMP 37.1; O2SAT 97
--- NOTE | 2023-10-23 09:17 | HO.ECTPROC ---
ECT Procedure Note Diagnosis/Treatment Date of Service: 10/25/23 Diagnosis: Major Depressive Disorder and Catatonia Previous ECT Date: 09/18/23 Treatment: Maintenance Interval Clinical Notes: The patient denies new symptoms, has been quite well We called his hcp who gave us consent for ECT and anesthesia. Procedure done as usual, needed restimulation 0.5 program no sz with 0.25 program needed Esmolol as before 30 mg total Time: Total time managing care of this patient today _30___ minutes. ECT Settings Device: THYMATRON DGx Electrode Placement: Bifrontal Program/Pulse Width: 0.50 Energy Percent: 100 Seizure Duration By EEG (in seconds): 42 Medications Administration General Anesthetic: Etomidate (14) Muscle Relaxant: Succinylcholine (100) Ancillary Medications Analgesics: Torodol - Pre ECT Anti-emetics: Zofran - Pre ECT Cardiovascular Medications: Esmolol (10 mg x 3) Miscillaneous Medications: Midazolam Treatment Recommendations Electrode Placement: Bifrontal Program/Pulse Width: 0.50 Notes: some post op agitation transient f/u 4 wks Pt Tolerated Procedure w/o Issue: Yes
[2023-10-23 09:19] VITALS: BP 148/102; PULSE 114; RESP 20; O2SAT 96
[2023-10-23 09:24] VITALS: BP 160/101; PULSE 116; RESP 20; O2SAT 96
[2023-10-23 09:29] VITALS: BP 173/92; PULSE 122; RESP 20; O2SAT 95
[2023-10-23 09:44] VITALS: BP 145/95; PULSE 112; RESP 22; TEMP 36.8; O2SAT 95
== END 2023-10-23 10:23 | disposition home or self-care (01) ==
PROVIDERS: PCP Nurse Practitioner Family; Visit Provider Psychiatry & Neurology Psychiatry
PROC: (CPT 90870; principal; 2023-10-23 09:00)
DX: F33.2 Major depressive disorder, recurrent severe without psychotic features (principal); F06.1 Catatonic disorder due to known physiological condition; I26.99 Other pulmonary embolism without acute cor pulmonale; E78.2 Mixed hyperlipidemia; K21.9 Gastro-esophageal reflux disease without esophagitis; D64.9 Anemia, unspecified; Z85.46 Personal history of malignant neoplasm of prostate; Z79.01 Long term (current) use of anticoagulants; Z79.899 Other long term (current) drug therapy
CPT/HCPCS: 90870; J0330; J1805; J2250; J2405

== ENCOUNTER → 2023-10-23 07:49 | Outpatient (BNV) | payer MEDICARE, OTHER, SELFPAY | PROVIDERS: PCP Nurse Practitioner Family; Visit Provider Psychiatry & Neurology Psychiatry | DX: F33.3 Major depressive disorder, recurrent, severe with psychotic symptoms (principal) | CPT/HCPCS: 90870 ==

== ENCOUNTER 2023-11-20 07:53 | Day surgery (SDC) | payer MEDICARE, OTHER, SELFPAY ==
[2023-11-20 08:14] VITALS: BMI 25.8
[2023-11-20 08:20] VITALS: BP 161/91; PULSE 125; RESP 18; TEMP 37.2; O2SAT 96
--- NOTE | 2023-11-20 08:26 | P.CONAN_ITS ---
[facility] Active Problems Active Problems: All Active Problems (Updated 06/16/23 @ 11:17 by [employer] [place]) Major depressive disorder, recurrent, severe with psychotic features (Acute) Depression (Acute) Physical deconditioning (Acute) Preoperative cardiovascular examination (Acute) Anemia (Acute) GERD (gastroesophageal reflux disease) (Acute) Past Medical History Medical History COVID-19 vaccine administered Dementia Depression Diverticulitis of colon with perforation GERD (gastroesophageal reflux disease) History of electroconvulsive therapy HTN (hypertension) Hyperlipidemia Major depressive disorder, recurrent, severe with psychotic features Pulmonary embolism SVT (supraventricular tachycardia) Family History Family History Brother Blood clot in vein Other No history of cardiac disorder Family history of problems with anesthesia: No Surgical History Surgical History H/O colonoscopy H/O hernia repair History of colostomy reversal History of esophagogastroduodenoscopy (EGD) Status post Paula's procedure History of Problems with Anesthesia: No Social History Social History Household Members: Other Housing: Assisted Living Facility Are you a primary multi care technician to a significant other at home: No Do you presently have visiting nurse or other home services: No Alcohol intake: former Comment: Much improved balance and gait. Patient Tobacco Use Status: Never used Tobacco Second Hand Smoke Exposure: No Advance Directives: No Advance Directives Information Provided: Yes Advance Directives Date on File: 07/27/20 service: Yes Current occupational status: retired Sexual orientation: Straight/Heterosexual Meds Allergies Allergy/AdvReac Type Severity Reaction Status Date / Time No Known Allergies Allergy Verified 01/25/21 06:43 [No Known Allergies*] Exam Height,Weight and Vital Signs: Height 5 ft 11 in Weight 83.915 kg Last Vital Signs Temp 99 F 11/20/23 08:20 Pulse 125 H 11/20/23 08:20 Resp 18 11/20/23 08:20 BP 161/91 H 11/20/23 08:20 Pulse Ox 96 11/20/23 08:20 O2 Del Method Room Air 11/20/23 08:20 Airway Mallampati Class: II TM Dist: >3cm Neck ROM: Full Denture: Upper Heart: rrr Lungs: cta Assessment and Plan Assessment Anesthesia Assessment: Anesthesia Plan Discussed and Chart Reviewed Final Anesthetic Review Family History of Problems with Anesthesia: No History of Problems with Anesthesia: No NPO: Yes ASA Class: III Final Preanesthetic Review: No Changes in Pt Med Stat, Meds/Allgs Chart Reviewed and Consent Obtained/Reviewed Patient Risk: Intermediate Procedure Risk: Intermediate Anesthetic Plan Anesthetic Plan: GA Disposition: Standard PACU
--- NOTE | 2023-11-20 08:37 | HO.ANESPROP2 ---
[facility] Active Problems Active Problems: All Active Problems (Updated 06/16/23 @ 11:17 by [employer]) Major depressive disorder, recurrent, severe with psychotic features (Acute) Depression (Acute) Physical deconditioning (Acute) Preoperative cardiovascular examination (Acute) Anemia (Acute) GERD (gastroesophageal reflux disease) (Acute) Past Medical History Medical History COVID-19 vaccine administered Dementia Depression Diverticulitis of colon with perforation GERD (gastroesophageal reflux disease) History of electroconvulsive therapy HTN (hypertension) Hyperlipidemia Major depressive disorder, recurrent, severe with psychotic features Pulmonary embolism SVT (supraventricular tachycardia) Family History Family History Brother Blood clot in vein Other No history of cardiac disorder Family history of problems with anesthesia: No Surgical History Surgical History H/O colonoscopy H/O hernia repair History of colostomy reversal History of esophagogastroduodenoscopy (EGD) Status post Paula's procedure History of Problems with Anesthesia: No Social History Social History Household Members: Other Housing: Assisted Living Facility Are you a primary care team assistant to a significant other at home: No Do you presently have visiting nurse or other home services: No Alcohol intake: former Comment: Much improved balance and gait. Patient Tobacco Use Status: Never used Tobacco Second Hand Smoke Exposure: No Advance Directives: No Advance Directives Information Provided: Yes Advance Directives Date on File: 07/27/20 service: Yes Current occupational status: retired Sexual orientation: Straight/Heterosexual Meds Allergies Allergy/AdvReac Type Severity Reaction Status Date / Time No Known Allergies Allergy Verified 01/25/21 06:43 [No Known Allergies*] Active Medications: Current Medications Lactated Ringer's (Lr) 1,000 mls @ 50 mls/hr IVCONT .Q20H ROMMEL Exam Height,Weight and Vital Signs: Height 5 ft 11 in Weight 83.915 kg Last Vital Signs Temp 99 F 11/20/23 08:20 Pulse 125 H 11/20/23 08:20 Resp 18 11/20/23 08:20 BP 161/91 H 11/20/23 08:20 Pulse Ox 96 02/16/24 08:20 O2 Del Method Room Air 11/20/23 08:20 Airway Mallampati Class: II TM Dist: >3cm Neck ROM: Full Heart: rrr Lungs: cta Assessment and Plan Assessment Anesthesia Assessment: Anesthesia Plan Discussed and Chart Reviewed Final Anesthetic Review Family History of Problems with Anesthesia: No History of Problems with Anesthesia: No NPO: Yes ASA Class: III Final Preanesthetic Review: No Changes in Pt Med Stat, Meds/Allgs Chart Reviewed and Consent Obtained/Reviewed Patient Risk: Intermediate Procedure Risk: Intermediate Anesthetic Plan Anesthetic Plan: GA Disposition: Standard PACU
--- NOTE | 2023-11-20 08:58 | MHC.SHP ---
Pre-Procedural Eval Section A - 24 Hr Update-Section A only Date of Service: 11/20/23 The patient is an INPATIENT: No Changes since office visit: Yes Patient answered all questions; No Cold of Flu in the past 2 weeks, No New Medical Problems and No Changes in Medication The patient has been examined within 24 hours of the surgical procedure. The History & Physical has been completed within 30 days and I have reviewed it.: No Section B - Complete if H&P > 30 days Chief Complaint: depression Details of Present Illness: recurrent psychotic depression Relevant Family History (Specify if Yes): No Relevant Social History: None Present Medications: see Short Stay Collaborative assessment History of Previous Operations: No relevant previous surgery Allergies: Allergies Allergy/AdvReac Type Severity Reaction Status Date / Time No Known Allergies Allergy Verified 01/25/21 06:43 [No Known Allergies*] Review of Systems Sugical H&P ROS: Negative: Cardiovascular, Respiratory, Neurological and Psychiatric Exam Surgical H&P Exam: Normal: Heart, Normal: Lungs and Normal: Neurological Plan Diagnosis/Plan: Unchanged I have reviewed the history and physical and performed a pertinent physical examination on my patient. No changes have occurred unless specified. Time Spent With Patient Time: Total time managing care of this patient today ____ minutes.
--- NOTE | 2023-11-20 09:00 | HO.ECTPROC ---
ECT Procedure Note Diagnosis/Treatment Date of Service: 11/20/23 Diagnosis: Major Depressive Disorder and Catatonia Previous ECT Date: 09/18/23 Treatment: Maintenance Interval Clinical Notes: The patient denies new symptoms, has been quite well We called his hcp who gave us consent for ECT and anesthesia. No new medical concerns physical unremarkable does become anxious and tachycardic when he gets into the PACU Time: Total time managing care of this patient today ____ minutes. ECT Settings Device: THYMATRON DGx Electrode Placement: Bifrontal Program/Pulse Width: 0.50 Energy Percent: 100 Seizure Duration By EEG (in seconds): 42 Medications Administration General Anesthetic: Etomidate (14) Muscle Relaxant: Succinylcholine (100) Ancillary Medications Analgesics: Torodol - Pre ECT Anti-emetics: Zofran - Pre ECT Cardiovascular Medications: Esmolol (10 mg x 3) Miscillaneous Medications: Midazolam Treatment Recommendations Electrode Placement: Bifrontal Program/Pulse Width: 0.50 Notes: some post op agitation transient f/u 4 wks was given 1 mg lorazepam po post tx Pt Tolerated Procedure w/o Issue: Yes
[2023-11-20 09:13] VITALS: BP 151/101; PULSE 113; RESP 16; TEMP 37.4; O2SAT 96
[2023-11-20 09:18] VITALS: BP 152/100; PULSE 122; RESP 22; O2SAT 96
[2023-11-20 09:23] VITALS: BP 155/99; PULSE 126; RESP 25; O2SAT 97
[2023-11-20 09:28] VITALS: BP 168/96; PULSE 120; RESP 25; O2SAT 95
[2023-11-20] MEDS: LORazepam 1 MG TABLET PO (09:38)
[2023-11-20 09:43] VITALS: BP 155/100; PULSE 134; RESP 22; O2SAT 98
== END 2023-11-20 11:04 | disposition home or self-care (01) ==
PROVIDERS: PCP Nurse Practitioner Family; Visit Provider Psychiatry & Neurology Psychiatry
PROC: (CPT 90870; principal; 2023-11-20 09:00)
DX: F33.2 Major depressive disorder, recurrent severe without psychotic features (principal); F06.1 Catatonic disorder due to known physiological condition; I26.99 Other pulmonary embolism without acute cor pulmonale; I10 Essential (primary) hypertension; E78.5 Hyperlipidemia, unspecified; K21.9 Gastro-esophageal reflux disease without esophagitis; Z79.01 Long term (current) use of anticoagulants; Z79.899 Other long term (current) drug therapy; Z98.890 Other specified postprocedural states
CPT/HCPCS: 90870; J0330; J1805; J2250; J2405

== ENCOUNTER → 2023-11-20 07:53 | Outpatient (BNV) | payer MEDICARE, OTHER, SELFPAY | PROVIDERS: PCP Nurse Practitioner Family; Visit Provider Psychiatry & Neurology Psychiatry | DX: F33.3 Major depressive disorder, recurrent, severe with psychotic symptoms (principal) | CPT/HCPCS: 90870 ==

== ENCOUNTER 2023-12-18 08:09 | Day surgery (SDC) | payer MEDICARE, OTHER, SELFPAY ==
[2023-12-18] VITALS (7 sets, daily range): BP systolic 122–166; BP diastolic 84–109; PULSE 112–132; RESP 18–22; TEMP 36.2–37.1; O2SAT 92–991; BMI 25.8
--- NOTE | 2023-12-18 08:28 | HO.ANESPROP2 ---
[facility] Active Problems Active Problems: All Active Problems (Updated 06/16/23 @ 11:17 by [employer] [place]) Major depressive disorder, recurrent, severe with psychotic features (Acute) Depression (Acute) Physical deconditioning (Acute) Preoperative cardiovascular examination (Acute) Anemia (Acute) GERD (gastroesophageal reflux disease) (Acute) Past Medical History Medical History COVID-19 vaccine administered Dementia Depression Diverticulitis of colon with perforation GERD (gastroesophageal reflux disease) History of electroconvulsive therapy HTN (hypertension) Hyperlipidemia Major depressive disorder, recurrent, severe with psychotic features Pulmonary embolism SVT (supraventricular tachycardia) Family History Family History Brother Blood clot in vein Other No history of cardiac disorder Family history of problems with anesthesia: No Surgical History Surgical History H/O colonoscopy H/O hernia repair History of colostomy reversal History of esophagogastroduodenoscopy (EGD) Status post Paula's procedure History of Problems with Anesthesia: No Social History Social History Household Members: Other Housing: Assisted Living Facility Are you a primary early breastfeeding care specialist to a significant other at home: No Do you presently have visiting nurse or other home services: No Alcohol intake: former Comment: Much improved balance and gait. Patient Tobacco Use Status: Never used Tobacco Second Hand Smoke Exposure: No Advance Directives: No Advance Directives Information Provided: Yes Advance Directives Date on File: 07/27/20 service: Yes Current occupational status: retired Sexual orientation: Straight/Heterosexual Meds Allergies Allergy/AdvReac Type Severity Reaction Status Date / Time No Known Allergies Allergy Verified 01/25/21 06:43 [No Known Allergies*] Exam Height,Weight and Vital Signs: Height 5 ft 11 in Weight 83.915 kg Last Vital Signs Temp 98.4 F 12/18/23 08:16 Pulse 127 H 12/18/23 08:16 Resp 22 H 12/18/23 08:16 BP 166/109 H 12/18/23 08:16 Pulse Ox 95 12/18/23 08:16 O2 Del Method Room Air 12/18/23 08:16 Airway Mallampati Class: II TM Dist: >3cm Neck ROM: Full Denture: Upper Heart: rrr Lungs: cta Assessment and Plan Assessment Anesthesia Assessment: Anesthesia Plan Discussed and Chart Reviewed Final Anesthetic Review Family History of Problems with Anesthesia: No History of Problems with Anesthesia: No NPO: Yes ASA Class: III Final Preanesthetic Review: No Changes in Pt Med Stat, Meds/Allgs Chart Reviewed and Consent Obtained/Reviewed Patient Risk: Intermediate Procedure Risk: Intermediate Anesthetic Plan Anesthetic Plan: GA Disposition: Standard PACU
--- NOTE | 2023-12-18 08:51 | MHC.SHP ---
Pre-Procedural Eval Section A - 24 Hr Update-Section A only Date of Service: 12/18/23 The patient is an INPATIENT: No Changes since office visit: Yes Patient answered all questions; No Cold of Flu in the past 2 weeks, No New Medical Problems and No Changes in Medication The patient has been examined within 24 hours of the surgical procedure. The History & Physical has been completed within 30 days and I have reviewed it.: No Section B - Complete if H&P > 30 days Chief Complaint: depression Details of Present Illness: recurrent psychotic depression stable witrh ect Relevant Family History (Specify if Yes): No Relevant Social History: None Present Medications: see Short Stay Collaborative assessment History of Previous Operations: No relevant previous surgery Allergies: Allergies Allergy/AdvReac Type Severity Reaction Status Date / Time No Known Allergies Allergy Verified 01/25/21 06:43 [No Known Allergies*] Review of Systems Sugical H&P ROS: Negative: Cardiovascular, Respiratory, Neurological and Psychiatric Exam Surgical H&P Exam: Normal: Heart, Normal: Lungs and Normal: Neurological Plan Diagnosis/Plan: Unchanged I have reviewed the history and physical and performed a pertinent physical examination on my patient. No changes have occurred unless specified. Time Spent With Patient Time: Total time managing care of this patient today ____ minutes.
[2023-12-18] MEDS: Lactated Ringers 1,000 ML 50 ML IVCONT (08:56)
--- NOTE | 2023-12-20 14:14 | HO.ECTPROC ---
ECT Procedure Note Diagnosis/Treatment Date of Service: 12/18/23 Diagnosis: Major Depressive Disorder and Catatonia Previous ECT Date: 11/20/23 Treatment: Maintenance Interval Clinical Notes: Patient with history of psychotic depression and catatonia has done quite well with monthly maintenance ECT. Patient continues to have arrival as soon as on site preop. Discuss possibility of low-dose metoprolol on arrival patient does require esmolol does have some post treatment transient confusional state no cognitive difficulties inter treatment Time: Total time managing care of this patient today _30___ minutes. ECT Settings Device: THYMATRON DGx Electrode Placement: Bifrontal Program/Pulse Width: 0.50 Energy Percent: 100 Seizure Duration By EEG (in seconds): 70 Medications Administration General Anesthetic: Etomidate (14) Muscle Relaxant: Succinylcholine (100) Ancillary Medications Anti-emetics: Zofran - Pre ECT Cardiovascular Medications: Esmolol (total 40 pre tx ) Treatment Recommendations Notes: post op transient agitation versed 2 mg post would give iv ativan seemed more hepful consider change to rul or 0.25 bf f/u 4 wks
== END 2023-12-18 10:20 | disposition home or self-care (01) ==
PROVIDERS: PCP Nurse Practitioner Family; Visit Provider Psychiatry & Neurology Psychiatry
PROC: (CPT 90870; principal; 2023-12-18 09:00)
DX: F33.3 Major depressive disorder, recurrent, severe with psychotic symptoms (principal); F06.1 Catatonic disorder due to known physiological condition; F03.90 Unspecified dementia, unspecified severity, without behavioral disturbance, psychotic disturbance, mood disturbance, and anxiety; I10 Essential (primary) hypertension; D64.9 Anemia, unspecified; K21.9 Gastro-esophageal reflux disease without esophagitis; E78.5 Hyperlipidemia, unspecified; I47.10 Supraventricular tachycardia, unspecified; I26.99 Other pulmonary embolism without acute cor pulmonale; Z79.01 Long term (current) use of anticoagulants
CPT/HCPCS: 90870; J0330; J1805; J2250; J2405

== ENCOUNTER → 2023-12-18 08:09 | Outpatient (BNV) | payer MEDICARE, OTHER, SELFPAY | PROVIDERS: PCP Nurse Practitioner Family; Visit Provider Psychiatry & Neurology Psychiatry | DX: F33.3 Major depressive disorder, recurrent, severe with psychotic symptoms (principal) | CPT/HCPCS: 90870 ==

== ENCOUNTER 2024-01-22 07:56 | Day surgery (SDC) | payer MEDICARE, OTHER, SELFPAY ==
[2024-01-22] VITALS (7 sets, daily range): BP systolic 128–147; BP diastolic 75–94; PULSE 110–119; RESP 16–24; TEMP 36.2–37.1; O2SAT 92–96; BMI 25.8
--- NOTE | 2024-01-22 08:32 | HO.ANESPROP2 ---
HPI - Anesthesia Eval Consult details Narrative: 78 yo male patient for ECT PMFSH Active Problems Active Problems: All Active Problems Major depressive disorder, recurrent, severe with psychotic features (Acute) Depression (Acute) Physical deconditioning (Acute) Preoperative cardiovascular examination (Acute) Anemia (Acute) GERD (gastroesophageal reflux disease) (Acute) Past Medical History Medical History COVID-19 vaccine administered Dementia Depression Diverticulitis of colon with perforation GERD (gastroesophageal reflux disease) History of electroconvulsive therapy HTN (hypertension) Hyperlipidemia Major depressive disorder, recurrent, severe with psychotic features Pulmonary embolism SVT (supraventricular tachycardia) Family History Family History Brother Blood clot in vein Other No history of cardiac disorder Family history of problems with anesthesia: No Surgical History Surgical History H/O colonoscopy H/O hernia repair History of colostomy reversal History of esophagogastroduodenoscopy (EGD) Status post Paula's procedure History of Problems with Anesthesia: No Social History Social History Household Members: Other Housing: Assisted Living Facility Are you a primary nurse healthcare manager to a significant other at home: No Do you presently have visiting nurse or other home services: No Alcohol intake: former Comment: Much improved balance and gait. Patient Tobacco Use Status: Never used Tobacco Second Hand Smoke Exposure: No Advance Directives: No Advance Directives Information Provided: Yes Advance Directives Date on File: 07/27/20 service: Yes Current occupational status: retired Sexual orientation: Straight/Heterosexual Meds Allergies Allergy/AdvReac Type Severity Reaction Status Date / Time No Known Allergies Allergy Verified 01/25/21 06:43 [No Known Allergies*] Exam Height,Weight and Vital Signs: Height 5 ft 11 in Weight 83.915 kg Last Vital Signs Temp 98.8 F 01/22/24 08:17 Pulse 119 H 01/22/24 08:17 Resp 22 H 01/22/24 08:17 BP 147/94 H 01/22/24 08:17 Pulse Ox 94 01/22/24 08:17 O2 Del Method Room Air 01/22/24 08:17 Airway Mallampati Class: III TM Dist: >3cm Neck ROM: Full Denture: Upper Loose/Missing/Broken Teeth: Yes (No teeth bottom) Heart: RRR Lungs: CTAB Assessment and Plan Assessment Anesthesia Assessment: Anesthesia Plan Discussed and Chart Reviewed Final Anesthetic Review Family History of Problems with Anesthesia: No History of Problems with Anesthesia: No NPO: Yes ASA Class: III Final Preanesthetic Review: No Changes in Pt Med Stat, Meds/Allgs Chart Reviewed, Consent Obtained/Reviewed and Anes Risks/Benef Reviewed Patient Risk: Intermediate Procedure Risk: Intermediate Assessment/Block/Sedation in SS: Assess/Block/Sedation-SS Anesthetic Plan Anesthetic Plan: GA Disposition: Standard PACU
[2024-01-22] MEDS: Lactated Ringers 1,000 ML 50 ML IVCONT (08:47)
--- NOTE | 2024-01-22 09:00 | MHC.SHP ---
Pre-Procedural Eval Section A - 24 Hr Update-Section A only Date of Service: 01/22/24 The patient is an INPATIENT: No Changes since office visit: Yes Patient answered all questions; No Cold of Flu in the past 2 weeks, No New Medical Problems and No Changes in Medication The patient has been examined within 24 hours of the surgical procedure. The History & Physical has been completed within 30 days and I have reviewed it.: No Section B - Complete if H&P > 30 days Chief Complaint: Major depressive disorder, recurrent, severe with Details of Present Illness: recurrent psychotic depression stable witrh ect doing quite well Relevant Family History (Specify if Yes): No Relevant Social History: None Present Medications: see Short Stay Collaborative assessment History of Previous Operations: No relevant previous surgery Allergies: Allergies Allergy/AdvReac Type Severity Reaction Status Date / Time No Known Allergies Allergy Verified 01/25/21 06:43 [No Known Allergies*] Review of Systems Sugical H&P ROS: Negative: Cardiovascular, Respiratory, Neurological and Psychiatric Exam Surgical H&P Exam: Normal: Heart, Normal: Lungs and Normal: Neurological Plan Diagnosis/Plan: Unchanged I have reviewed the history and physical and performed a pertinent physical examination on my patient. No changes have occurred unless specified. Time Spent With Patient Time: Total time managing care of this patient today ____ minutes.
--- NOTE | 2024-01-22 09:18 | HO.ECTPROC ---
ECT Procedure Note Diagnosis/Treatment Date of Service: 01/22/24 Diagnosis: Major Depressive Disorder and Catatonia Previous ECT Date: 12/18/23 Treatment: Maintenance Interval Clinical Notes: Pt has been stable no depressive sx f/u outpt with dr estrada no side effects noted with ect have tried weaning in the past and relapsed with catatonia each time Time: Total time managing care of this patient today ____ minutes. ECT Settings Device: THYMATRON DGx Electrode Placement: Bifrontal Program/Pulse Width: 0.50 Energy Percent: 100 Seizure Duration By EEG (in seconds): 44 Medications Administration General Anesthetic: Etomidate (14) Muscle Relaxant: Succinylcholine (10) Ancillary Medications Anti-emetics: Zofran - Pre ECT Cardiovascular Medications: Esmolol (30 total pre tx 10 mg post tachycardia ) Miscillaneous Medications: Midazolam (2mg) Airway Management Airway Management: Bag Mask Ventilation Treatment Recommendations No Changes Recommended: No change Notes: has transient confusion post ect Pt Tolerated Procedure w/o Issue: Yes
== END 2024-01-22 10:55 | disposition home or self-care (01) ==
PROVIDERS: PCP Nurse Practitioner Family; Visit Provider Psychiatry & Neurology Psychiatry
PROC: (CPT 90870; principal; 2024-01-22 09:00)
DX: F33.2 Major depressive disorder, recurrent severe without psychotic features (principal); F03.90 Unspecified dementia, unspecified severity, without behavioral disturbance, psychotic disturbance, mood disturbance, and anxiety; D64.9 Anemia, unspecified; K21.9 Gastro-esophageal reflux disease without esophagitis; I10 Essential (primary) hypertension; E78.5 Hyperlipidemia, unspecified; I26.99 Other pulmonary embolism without acute cor pulmonale; I47.10 Supraventricular tachycardia, unspecified; Z98.890 Other specified postprocedural states
CPT/HCPCS: 90870; J0330; J1805; J2250; J2405

== ENCOUNTER → 2024-01-22 07:56 | Outpatient (BNV) | payer MEDICARE, OTHER, SELFPAY | PROVIDERS: PCP Nurse Practitioner Family; Visit Provider Psychiatry & Neurology Psychiatry | DX: F33.3 Major depressive disorder, recurrent, severe with psychotic symptoms (principal) | CPT/HCPCS: 90870 ==

== ENCOUNTER 2024-02-19 07:52 | Day surgery (SDC) | payer MEDICARE, OTHER, SELFPAY ==
[2024-02-19] VITALS (8 sets, daily range): BP systolic 104–164; BP diastolic 66–100; PULSE 110–130; RESP 16–20; TEMP 36.6–36.8; O2SAT 93–97; BMI 25.8
--- NOTE | 2024-02-19 08:27 | P.CONAN_ITS ---
[facility] Active Problems Active Problems: All Active Problems Major depressive disorder, recurrent, severe with psychotic features (Acute) Depression (Acute) Physical deconditioning (Acute) Preoperative cardiovascular examination (Acute) Anemia (Acute) GERD (gastroesophageal reflux disease) (Acute) Past Medical History Medical History COVID-19 vaccine administered Dementia Depression Diverticulitis of colon with perforation GERD (gastroesophageal reflux disease) History of electroconvulsive therapy HTN (hypertension) Hyperlipidemia Major depressive disorder, recurrent, severe with psychotic features Pulmonary embolism SVT (supraventricular tachycardia) Family History Family History Brother Blood clot in vein Other No history of cardiac disorder Family history of problems with anesthesia: No Surgical History Surgical History H/O colonoscopy H/O hernia repair History of colostomy reversal History of esophagogastroduodenoscopy (EGD) Status post Paula's procedure History of Problems with Anesthesia: No Social History Social History Household Members: Other Housing: Assisted Living Facility Are you a primary personal care aid to a significant other at home: No Do you presently have visiting nurse or other home services: No Alcohol intake: former Comment: Much improved balance and gait. Patient Tobacco Use Status: Never used Tobacco Second Hand Smoke Exposure: No Advance Directives: No Advance Directives Information Provided: Yes Advance Directives Date on File: 07/27/20 service: Yes Current occupational status: retired Sexual orientation: Straight/Heterosexual Meds Allergies Allergy/AdvReac Type Severity Reaction Status Date / Time No Known Allergies Allergy Verified 01/25/21 06:43 [No Known Allergies*] Exam Airway Mallampati Class: II TM Dist: >3cm Neck ROM: Full Denture: Upper Heart: rrr Lungs: cta Assessment and Plan Assessment Anesthesia Assessment: Anesthesia Plan Discussed and Chart Reviewed Final Anesthetic Review Family History of Problems with Anesthesia: No History of Problems with Anesthesia: No NPO: Yes ASA Class: III Final Preanesthetic Review: No Changes in Pt Med Stat, Meds/Allgs Chart Reviewed and Consent Obtained/Reviewed Patient Risk: Intermediate Procedure Risk: Intermediate Anesthetic Plan Anesthetic Plan: GA Disposition: Standard PACU
--- NOTE | 2024-02-19 08:51 | MHC.SHP ---
Pre-Procedural Eval Section A - 24 Hr Update-Section A only Date of Service: 02/19/24 The patient is an INPATIENT: No Changes since office visit: Yes Patient answered all questions; No Cold of Flu in the past 2 weeks, No New Medical Problems and No Changes in Medication The patient has been examined within 24 hours of the surgical procedure. The History & Physical has been completed within 30 days and I have reviewed it.: No Section B - Complete if H&P > 30 days Chief Complaint: Major depressive disorder, recurrent, severe with Details of Present Illness: pt stable tolearates ect well preop anxiety Relevant Family History (Specify if Yes): No Relevant Social History: None Present Medications: see Short Stay Collaborative assessment History of Previous Operations: No relevant previous surgery Allergies: Allergies Allergy/AdvReac Type Severity Reaction Status Date / Time No Known Allergies Allergy Verified 01/25/21 06:43 [No Known Allergies*] Review of Systems Sugical H&P ROS: Negative: Cardiovascular, Respiratory, Neurological and Psychiatric Exam Surgical H&P Exam: Normal: Heart, Normal: Lungs and Normal: Neurological Exam Comment: preop anxiety Plan Diagnosis/Plan: Unchanged I have reviewed the history and physical and performed a pertinent physical examination on my patient. No changes have occurred unless specified. Time Spent With Patient Time: Total time managing care of this patient today ____ minutes.
--- NOTE | 2024-02-19 09:14 | HO.ECTPROC ---
ECT Procedure Note Diagnosis/Treatment Date of Service: 02/19/24 Diagnosis: Major Depressive Disorder Treatment: Maintenance Interval Clinical Notes: pt doing well with monthly maint no new medical problems psychiatrically stable.Always anxious prior to tx Time: Total time managing care of this patient today _30___ minutes. ECT Settings Device: THYMATRON DGx Electrode Placement: Bifrontal Program/Pulse Width: 0.50 Energy Percent: 100 Seizure Duration By EEG (in seconds): 37 Medications Administration General Anesthetic: Etomidate (14) Muscle Relaxant: Succinylcholine (100) Ancillary Medications Analgesics: Torodol - Pre ECT (30) Anti-emetics: Zofran - Pre ECT (4) Cardiovascular Medications: Esmolol (20 mg pre tx ) Airway Management Airway Management: Bag Mask Ventilation Treatment Recommendations Notes: has some post op confusion DO NOT USE KETOROLAC HX OF BLEED
== END 2024-02-19 10:40 | disposition home or self-care (01) ==
PROVIDERS: PCP Nurse Practitioner Family; Visit Provider Psychiatry & Neurology Psychiatry
PROC: (CPT 90870; principal; 2024-02-19 09:00)
DX: F33.2 Major depressive disorder, recurrent severe without psychotic features (principal); F03.90 Unspecified dementia, unspecified severity, without behavioral disturbance, psychotic disturbance, mood disturbance, and anxiety; D64.9 Anemia, unspecified; K21.9 Gastro-esophageal reflux disease without esophagitis; I10 Essential (primary) hypertension; E78.5 Hyperlipidemia, unspecified; I26.99 Other pulmonary embolism without acute cor pulmonale; I47.10 Supraventricular tachycardia, unspecified; Z79.01 Long term (current) use of anticoagulants; Z79.899 Other long term (current) drug therapy; Z98.890 Other specified postprocedural states
CPT/HCPCS: 90870; J0330; J1805; J1885; J2250; J2405

== ENCOUNTER → 2024-02-19 07:52 | Outpatient (BNV) | payer MEDICARE, OTHER, SELFPAY | PROVIDERS: PCP Nurse Practitioner Family; Visit Provider Psychiatry & Neurology Psychiatry | DX: F33.2 Major depressive disorder, recurrent severe without psychotic features (principal) | CPT/HCPCS: 90870 ==

== ENCOUNTER 2024-03-25 07:49 | Day surgery (SDC) | payer MEDICARE, OTHER, SELFPAY ==
--- NOTE | 2024-03-25 08:22 | P.CONAN_ITS ---
[facility] Active Problems Active Problems: All Active Problems Major depressive disorder, recurrent, severe with psychotic features (Acute) Depression (Acute) Physical deconditioning (Acute) Preoperative cardiovascular examination (Acute) Anemia (Acute) GERD (gastroesophageal reflux disease) (Acute) Past Medical History Medical History COVID-19 vaccine administered Dementia Depression Diverticulitis of colon with perforation GERD (gastroesophageal reflux disease) History of electroconvulsive therapy HTN (hypertension) Hyperlipidemia Major depressive disorder, recurrent, severe with psychotic features Pulmonary embolism SVT (supraventricular tachycardia) Family History Family History Brother Blood clot in vein Other No history of cardiac disorder Family history of problems with anesthesia: No Surgical History Surgical History H/O colonoscopy H/O hernia repair History of colostomy reversal History of esophagogastroduodenoscopy (EGD) Status post Paula's procedure History of Problems with Anesthesia: No Social History Social History Household Members: Other Housing: Assisted Living Facility Are you a primary nanny caregiver to a significant other at home: No Do you presently have visiting nurse or other home services: No Alcohol intake: former Comment: Much improved balance and gait. Patient Tobacco Use Status: Never used Tobacco Second Hand Smoke Exposure: No Advance Directives: No Advance Directives Information Provided: Yes Advance Directives Date on File: 07/27/20 service: Yes Current occupational status: retired Sexual orientation: Straight/Heterosexual Meds Allergies Allergy/AdvReac Type Severity Reaction Status Date / Time No Known Allergies Allergy Verified 01/25/21 06:43 [No Known Allergies*] Exam Airway Mallampati Class: II TM Dist: >3cm Neck ROM: Full Heart: rrr Lungs: cta Assessment and Plan Assessment Anesthesia Assessment: Anesthesia Plan Discussed and Chart Reviewed Final Anesthetic Review Family History of Problems with Anesthesia: No History of Problems with Anesthesia: No NPO: Yes ASA Class: III Final Preanesthetic Review: No Changes in Pt Med Stat, Meds/Allgs Chart Reviewed and Consent Obtained/Reviewed Patient Risk: Intermediate Procedure Risk: Intermediate Anesthetic Plan Anesthetic Plan: GA Disposition: Standard PACU
[2024-03-25 08:23] VITALS: BP 146/90; PULSE 130; RESP 18; TEMP 36.9; O2SAT 94; BMI 25.8
[2024-03-25] MEDS: Lactated Ringers 1,000 ML 50 ML IVCONT (08:35)
--- NOTE | 2024-03-25 08:42 | MHC.SHP ---
Pre-Procedural Eval Section A - 24 Hr Update-Section A only Date of Service: 03/25/24 The patient is an INPATIENT: No Changes since office visit: Yes Patient answered all questions; No Cold of Flu in the past 2 weeks, No New Medical Problems and No Changes in Medication The patient has been examined within 24 hours of the surgical procedure. The History & Physical has been completed within 30 days and I have reviewed it.: No Section B - Complete if H&P > 30 days Chief Complaint: Major depressive disorder, recurrent, severe with Details of Present Illness: pt stable tolearates ect well preop anxiety Relevant Family History (Specify if Yes): No Relevant Social History: None Present Medications: see Short Stay Collaborative assessment History of Previous Operations: No relevant previous surgery Allergies: Allergies Allergy/AdvReac Type Severity Reaction Status Date / Time No Known Allergies Allergy Verified 01/25/21 06:43 [No Known Allergies*] Review of Systems Sugical H&P ROS: Negative: Cardiovascular, Respiratory, Neurological and Psychiatric Exam Surgical H&P Exam: Normal: Heart, Normal: Lungs and Normal: Neurological Exam Comment: preop anxiety 146/90 Plan Diagnosis/Plan: Unchanged I have reviewed the history and physical and performed a pertinent physical examination on my patient. No changes have occurred unless specified. Time Spent With Patient Time: Total time managing care of this patient today ____ minutes. Vital Signs 03/25/24 08:23 03/25/24 08:23 Height 5 ft 11 in Weight 83.915 kg BMI 25.8 BP 146/90 H Respiration 18 Pulse 130 H Temp 98.4 F Temp Source Tympanic Pulse Oximetry (%) 94
--- NOTE | 2024-03-25 08:56 | HO.ECTPROC ---
ECT Procedure Note Diagnosis/Treatment Date of Service: 03/25/24 Diagnosis: Major Depressive Disorder Previous ECT Date: 02/19/24 Treatment: Maintenance Interval Clinical Notes: pt doing well with monthly maint no some coughing when eating scheduled to have barium swallow psychiatrically stable.Always anxious prior to tx consent from HCP Time: Total time managing care of this patient today ____ minutes. ECT Settings Device: THYMATRON DGx Electrode Placement: Bifrontal Program/Pulse Width: 0.50 Energy Percent: 100 Seizure Duration By EEG (in seconds): 72 Medications Administration General Anesthetic: Etomidate (14) Muscle Relaxant: Succinylcholine (100) Ancillary Medications Anti-emetics: Zofran - Pre ECT (4) Cardiovascular Medications: Esmolol (20 mg pre tx 10 post) Airway Management Airway Management: Bag Mask Ventilation Treatment Recommendations No Changes Recommended: No change Notes: has some post op confusion f/u 1 month DO NOT USE KETOROLAC HX OF BLEED
[2024-03-25 09:50] VITALS: BP 143/85; PULSE 109; RESP 16; TEMP 36.3; O2SAT 93
[2024-03-25 09:55] VITALS: BP 133/89; PULSE 115; RESP 14; O2SAT 93
[2024-03-25 10:00] VITALS: BP 137/95; PULSE 116; RESP 20; O2SAT 93
[2024-03-25 10:05] VITALS: BP 131/72; PULSE 120; RESP 20; O2SAT 95
[2024-03-25 10:19] VITALS: BP 122/77; PULSE 123; RESP 20; TEMP 36.3; O2SAT 97
== END 2024-03-25 10:40 | disposition home or self-care (01) ==
PROVIDERS: PCP Nurse Practitioner Family; Visit Provider Psychiatry & Neurology Psychiatry
PROC: (CPT 90870; principal; 2024-03-25 09:00)
DX: F33.2 Major depressive disorder, recurrent severe without psychotic features (principal); F03.90 Unspecified dementia, unspecified severity, without behavioral disturbance, psychotic disturbance, mood disturbance, and anxiety; D64.9 Anemia, unspecified; K21.9 Gastro-esophageal reflux disease without esophagitis; I10 Essential (primary) hypertension; E78.5 Hyperlipidemia, unspecified; I26.99 Other pulmonary embolism without acute cor pulmonale; I47.10 Supraventricular tachycardia, unspecified; Z79.01 Long term (current) use of anticoagulants; Z79.899 Other long term (current) drug therapy; Z98.890 Other specified postprocedural states
CPT/HCPCS: 90870; J0330; J1805; J1885; J2250; J2405

== ENCOUNTER → 2024-03-25 07:49 | Outpatient (BNV) | payer MEDICARE, OTHER, SELFPAY | PROVIDERS: PCP Nurse Practitioner Family; Visit Provider Psychiatry & Neurology Psychiatry | DX: F33.3 Major depressive disorder, recurrent, severe with psychotic symptoms (principal) | CPT/HCPCS: 90870 ==

== ENCOUNTER 2024-04-22 07:49 | Day surgery (SDC) | payer MEDICARE, OTHER, SELFPAY ==
[2024-04-22] VITALS (7 sets, daily range): BP systolic 107–160; BP diastolic 55–94; PULSE 64–121; RESP 14–24; TEMP 36.7–37.1; O2SAT 93–97; BMI 25.8
--- NOTE | 2024-04-22 08:44 | MHC.SHP ---
Pre-Procedural Eval Section A - 24 Hr Update-Section A only Date of Service: 04/22/24 Section B - Complete if H&P > 30 days Chief Complaint: Major depressive disorder, recurrent, severe with Details of Present Illness: pt stable tolearates ect well preop anxiety Relevant Family History (Specify if Yes): No Relevant Social History: None Present Medications: see Short Stay Collaborative assessment History of Previous Operations: No relevant previous surgery Allergies: Allergies Allergy/AdvReac Type Severity Reaction Status Date / Time No Known Allergies Allergy Verified 01/25/21 06:43 [No Known Allergies*] Review of Systems Sugical H&P ROS: Negative: Cardiovascular, Respiratory, Neurological and Psychiatric Exam Surgical H&P Exam: Normal: Heart, Normal: Lungs and Normal: Neurological Exam Comment: preop anxiety 149/87 p 122 always gets anxious preop Plan Diagnosis/Plan: Unchanged I have reviewed the history and physical and performed a pertinent physical examination on my patient. No changes have occurred unless specified. Time Spent With Patient Time: Total time managing care of this patient today ____ minutes.
--- NOTE | 2024-04-22 09:01 | PC.NURSE ---
IVF order requested from [facility] at [id number]
--- NOTE | 2024-04-22 09:13 | HO.ECTPROC ---
ECT Procedure Note Diagnosis/Treatment Date of Service: 04/22/24 Diagnosis: Major Depressive Disorder and Catatonia Previous ECT Date: 03/25/24 Treatment: Maintenance Interval Clinical Notes: pt doimh quite well stable no new med problems esmolol 20 plus 20 no c/o side effects ongoing social engaged outpt stable Time: Total time managing care of this patient today _30___ minutes. ECT Settings Device: THYMATRON DGx Electrode Placement: Bifrontal Program/Pulse Width: 0.50 Energy Percent: 100 Seizure Duration By EEG (in seconds): 93 Medications Administration General Anesthetic: Etomidate (14) Muscle Relaxant: Succinylcholine (100) Ancillary Medications Cardiovascular Medications: Esmolol (20 plus 20) Miscillaneous Medications: Midazolam (2) Airway Management Airway Management: Bag Mask Ventilation Treatment Recommendations Notes: lower stimulation 70 percent f/u 4 wks Pt Tolerated Procedure w/o Issue: Yes
[2024-04-22] MEDS: Haloperidol Lactate 5 MG/ML VIAL 1 MG IVPUSH (10:10)
--- NOTE | 2024-04-22 10:22 | HO.ANESPROP2 ---
[facility] Active Problems Active Problems: All Active Problems Major depressive disorder, recurrent, severe with psychotic features (Acute) Depression (Acute) Physical deconditioning (Acute) Preoperative cardiovascular examination (Acute) Anemia (Acute) GERD (gastroesophageal reflux disease) (Acute) Past Medical History Medical History COVID-19 vaccine administered History of electroconvulsive therapy Major depressive disorder, recurrent, severe with psychotic features Pulmonary embolism Diverticulitis of colon with perforation Hyperlipidemia HTN (hypertension) Dementia GERD (gastroesophageal reflux disease) Depression SVT (supraventricular tachycardia) Functional capacity: independent ambulation Family History Family History Brother Blood clot in vein Other No history of cardiac disorder Family history of problems with anesthesia: No Surgical History Surgical History History of esophagogastroduodenoscopy (EGD) H/O colonoscopy Status post Paula's procedure History of colostomy reversal H/O hernia repair History of Problems with Anesthesia: No Social History Social History Household Members: Other Housing: Assisted Living Facility Are you a primary skin care therapist to a significant other at home: No Do you presently have visiting nurse or other home services: No Alcohol intake: former Comment: Much improved balance and gait. Patient Tobacco Use Status: Never used Tobacco Second Hand Smoke Exposure: No Advance Directives: No Advance Directives Information Provided: Yes Advance Directives Date on File: 07/27/20 service: Yes Current occupational status: retired Sexual orientation: Straight/Heterosexual Meds Allergies Allergy/AdvReac Type Severity Reaction Status Date / Time No Known Allergies Allergy Verified 01/25/21 06:43 [No Known Allergies*] Exam Height,Weight and Vital Signs: Height 5 ft 11 in Weight 83.915 kg Last Vital Signs Temp 98.7 F 04/22/24 10:00 Pulse 121 H 04/22/24 10:00 Resp 24 H 04/22/24 10:00 BP 133/78 04/22/24 10:00 Pulse Ox 97 04/22/24 10:00 O2 Del Method Room Air 04/22/24 10:00 O2 Flow Rate 2 04/22/24 09:25 Airway Mallampati Class: III TM Dist: >3cm Neck ROM: Full Denture: Upper Heart: fast HR Lungs: CTA Assessment and Plan Assessment Anesthesia Assessment: Anesthesia Plan Discussed Final Anesthetic Review Family History of Problems with Anesthesia: No History of Problems with Anesthesia: No NPO: Yes ASA Class: III Final Preanesthetic Review: Meds/Allgs Chart Reviewed, Consent Obtained/Reviewed and Anes Risks/Benef Reviewed Patient Risk: Low Procedure Risk: Low Anesthetic Plan Anesthetic Plan: GA Disposition: Standard PACU
== END 2024-04-22 10:26 | disposition home or self-care (01) ==
PROVIDERS: PCP Nurse Practitioner Family; Visit Provider Psychiatry & Neurology Psychiatry
PROC: (CPT 90870; principal; 2024-04-22 09:00)
DX: F33.2 Major depressive disorder, recurrent severe without psychotic features (principal); F03.90 Unspecified dementia, unspecified severity, without behavioral disturbance, psychotic disturbance, mood disturbance, and anxiety; D64.9 Anemia, unspecified; E78.5 Hyperlipidemia, unspecified; I10 Essential (primary) hypertension; I47.10 Supraventricular tachycardia, unspecified; I26.99 Other pulmonary embolism without acute cor pulmonale; Z79.01 Long term (current) use of anticoagulants; Z79.899 Other long term (current) drug therapy; Z98.890 Other specified postprocedural states
CPT/HCPCS: 90870; J0330; J1596; J1630; J1805; J2250; J2405

== ENCOUNTER → 2024-04-22 07:49 | Outpatient (BNV) | payer MEDICARE, OTHER, SELFPAY | PROVIDERS: PCP Nurse Practitioner Family; Visit Provider Psychiatry & Neurology Psychiatry | DX: F33.3 Major depressive disorder, recurrent, severe with psychotic symptoms (principal) | CPT/HCPCS: 90870 ==

== ENCOUNTER 2024-05-20 07:51 | Day surgery (SDC) | payer MEDICARE, OTHER, SELFPAY ==
[2024-05-20 08:08] VITALS: BP 129/88; PULSE 120; RESP 18; TEMP 36.7; O2SAT 94; BMI 25.8
--- NOTE | 2024-05-20 08:32 | P.CONAN_ITS ---
[facility] Active Problems Active Problems: All Active Problems Major depressive disorder, recurrent, severe with psychotic features (Acute) Depression (Acute) Physical deconditioning (Acute) Preoperative cardiovascular examination (Acute) Anemia (Acute) GERD (gastroesophageal reflux disease) (Acute) Past Medical History Medical History COVID-19 vaccine administered History of electroconvulsive therapy Major depressive disorder, recurrent, severe with psychotic features Pulmonary embolism Diverticulitis of colon with perforation Hyperlipidemia HTN (hypertension) Dementia GERD (gastroesophageal reflux disease) Depression SVT (supraventricular tachycardia) Family History Family History Brother Blood clot in vein Other No history of cardiac disorder Family history of problems with anesthesia: No Surgical History Surgical History History of esophagogastroduodenoscopy (EGD) H/O colonoscopy Status post Paula's procedure History of colostomy reversal H/O hernia repair History of Problems with Anesthesia: No Social History Social History Household Members: Other Housing: Assisted Living Facility Are you a primary rental boats caretaker to a significant other at home: No Do you presently have visiting nurse or other home services: No Alcohol intake: former Comment: Much improved balance and gait. Patient Tobacco Use Status: Never used Tobacco Second Hand Smoke Exposure: No Advance Directives: No Advance Directives Information Provided: Yes Advance Directives Date on File: 07/27/20 Nutrition Risks: No Nutritional Risk service: Yes Current occupational status: retired Sexual orientation: Straight/Heterosexual Meds Allergies Allergy/AdvReac Type Severity Reaction Status Date / Time No Known Allergies Allergy Verified 01/25/21 06:43 [No Known Allergies*] Exam Height,Weight and Vital Signs: Height 5 ft 11 in Weight 83.915 kg Last Vital Signs Temp 98.1 F 05/20/24 08:08 Pulse 120 H 05/20/24 08:08 Resp 18 05/20/24 08:08 BP 129/88 05/20/24 08:08 Pulse Ox 94 05/20/24 08:08 O2 Del Method Room Air 05/20/24 08:08 Airway Mallampati Class: II TM Dist: >3cm Neck ROM: Full Denture: Upper Heart: rrr Lungs: cta Assessment and Plan Assessment Anesthesia Assessment: Anesthesia Plan Discussed and Chart Reviewed Final Anesthetic Review Family History of Problems with Anesthesia: No History of Problems with Anesthesia: No NPO: Yes ASA Class: III Final Preanesthetic Review: No Changes in Pt Med Stat, Meds/Allgs Chart Reviewed and Consent Obtained/Reviewed Patient Risk: Intermediate Procedure Risk: Intermediate Anesthetic Plan Anesthetic Plan: GA Disposition: Standard PACU
--- NOTE | 2024-05-20 08:53 | MHC.SHP ---
Pre-Procedural Eval Section A - 24 Hr Update-Section A only Date of Service: 05/20/24 Section B - Complete if H&P > 30 days Chief Complaint: depression Details of Present Illness: pt stable tolearates ect well preop anxiety ongoing Relevant Family History (Specify if Yes): No Relevant Social History: None Present Medications: see Short Stay Collaborative assessment History of Previous Operations: No relevant previous surgery Allergies: Allergies Allergy/AdvReac Type Severity Reaction Status Date / Time No Known Allergies Allergy Verified 01/25/21 06:43 [No Known Allergies*] Review of Systems Sugical H&P ROS: Negative: Cardiovascular, Respiratory, Neurological and Psychiatric Exam Surgical H&P Exam: Normal: Heart (rr), Normal: Lungs (clear ) and Normal: Neurological Exam Comment: preop anxiety 149/87 p 122 always gets anxious preop Plan Diagnosis/Plan: Unchanged I have reviewed the history and physical and performed a pertinent physical examination on my patient. No changes have occurred unless specified. Time Spent With Patient Time: Total time managing care of this patient today __30__ minutes.
--- NOTE | 2024-05-20 09:00 | HO.ECTPROC ---
ECT Procedure Note Diagnosis/Treatment Date of Service: 05/20/24 Diagnosis: Major Depressive Disorder and Catatonia Previous ECT Date: 04/22/24 Treatment: Maintenance Interval Clinical Notes: Pt seen in f/u mood has been stable no depression no psychosis . Does well with bifrontal tx Time: Total time managing care of this patient today ____ minutes. ECT Settings Device: THYMATRON DGx Electrode Placement: Bifrontal Program/Pulse Width: 0.25 Energy Percent: 100 Seizure Duration By EEG (in seconds): 52 Medications Administration General Anesthetic: Etomidate (14) Muscle Relaxant: Succinylcholine (100) Ancillary Medications Cardiovascular Medications: Esmolol (20) Miscillaneous Medications: Midazolam (2 post) Airway Management Airway Management: Bag Mask Ventilation Treatment Recommendations No Changes Recommended: No change Notes: program lowered to .25 program
[2024-05-20 09:12] VITALS: BP 153/98; PULSE 107; RESP 16; TEMP 36.1; O2SAT 98
[2024-05-20 09:17] VITALS: BP 154/98; PULSE 111; RESP 22; O2SAT 98
[2024-05-20 09:23] VITALS: BP 154/96; PULSE 114; RESP 22; O2SAT 93
[2024-05-20 09:27] VITALS: BP 146/106; PULSE 119; RESP 22; O2SAT 93
[2024-05-20 09:43] VITALS: BP 133/84; PULSE 111; RESP 18; TEMP 36.1; O2SAT 93
== END 2024-05-20 10:55 | disposition home or self-care (01) ==
PROVIDERS: PCP Nurse Practitioner Family; Visit Provider Psychiatry & Neurology Psychiatry
PROC: (CPT 90870; principal; 2024-05-20 09:00)
DX: F33.2 Major depressive disorder, recurrent severe without psychotic features (principal); F06.1 Catatonic disorder due to known physiological condition; Z86.711 Personal history of pulmonary embolism; Z79.01 Long term (current) use of anticoagulants
CPT/HCPCS: 90870; J0330; J1805; J2250

== ENCOUNTER → 2024-05-20 07:51 | Outpatient (BNV) | payer MEDICARE, OTHER, SELFPAY | PROVIDERS: PCP Nurse Practitioner Family; Visit Provider Psychiatry & Neurology Psychiatry | DX: F33.3 Major depressive disorder, recurrent, severe with psychotic symptoms (principal) | CPT/HCPCS: 90870 ==

== ENCOUNTER → 2024-06-01 13:39 | Outpatient (RCR) | payer MEDICARE, OTHER, SELFPAY ==
[2020-09-13 13:32] VITALS: BP 129/83; PULSE 113; RESP 16; TEMP 36.5; O2SAT 95; BMI 26.4
--- NOTE | 2020-09-13 14:29 | PM.HEMONCCN ---
Subjective - Subjective Consult date: 09/13/20 Requesting Physician: Levi. 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 CURRENTLY ON HOLD DUE TO BEING ON ELIQUIS AFTER A PE. HPI - Consult Narrative Reason for consult: PE on Eliquis Narrative: José Luis Galarza is an unfortunate 75 year old gentleman, with a history of severe depression. He was sent to the emergency department from ECT for tachycardia. He presented for scheduled ECT and was found to be tachycardic with a heart rate in the 140s. He had symptoms of shortness of breath and chest pain. His oxygen saturation was 91 % on room air. D-dimer slightly elevated and he underwent a CTA which showed a segmental PE. He was given a dose of therapeutic Lovenox. Patient was a poor historian, could not describe his shortness of breath and chest pain. Hospital course: The patient was admitted to the hospital for evaluation of tachycardia noticed on outpatient setting. CTA of the lungs showed solitary segmental pulmonary embolism in the right upper lobe. Ultrasound was done showing no DVT in lower extremities. The patient was started on Eliquis with good response as he was able to ambulate freely with no shortness of breath. He was evaluated by Physical therapy who recommended short-term rehab for physical deconditioning. The patient was sent back to [facility] with home therapy. He has been referred here for clearance for ECT treatments. He does not talk much. Agrees that he is depressed. Review of Systems - Constitutional Reports system reviewed and no additional complaints, except as documented - Eyes Reports system reviewed and no additional complaints, except as documented - ENT Reports system reviewed and no additional complaints, except as documented - Cardiovascular Reports system reviewed and no additional complaints, except as documented - Respiratory Reports no additional respiratory complaints - Gastrointestinal Reports system reviewed and no additional complaints, except as documented - Genitourinary Genitourinary: Reports no additional male genitourinary complaints - Musculoskeletal Reports system reviewed and no additional complaints, except as documented - Integumentary/Breasts Skin/Breast: Reports no additional skin complaints - Neurologic Reports system reviewed and no additional complaints, except as documented - Psychiatric Reports system reviewed and no additional complaints, except as documented - Endocrine Reports no additional endocrine complaints - Hematologic/Lymphatic Reports system reviewed and no additional complaints, except as documented - Allergic/Immunologic Reports system reviewed and no additional complaints, except as documented [facility] Medical History: Medical History (Last Updated 08/22/20 @ 14:26 by PATSY Lopez) Dementia Depression Diverticulitis of colon with perforation GERD (gastroesophageal reflux disease) HTN (hypertension) Hyperlipidemia SVT (supraventricular tachycardia) Functional capacity: uses cane/walker Patient : No Family History: Family History (Last Updated 09/13/20 @ 13:36 by Jazmin Walton) Brother Blood clot in vein Other No history of cardiac disorder Surgical History: Surgical History (Last Updated 08/22/20 @ 14:26 by PATSY Lopez) H/O hernia repair History of colostomy reversal Status post Paula's procedure Smoking status: Never smoker Home Medications and Allergies Home Medications Medication Instructions Recorded Confirmed Type doxazosin 2 mg PO DAILY 07/26/20 09/13/20 History duloxetine 60 mg PO DAILY 07/26/20 09/13/20 History finasteride 5 mg PO DAILY 07/26/20 09/13/20 History olanzapine 20 mg PO BEDTIME 07/26/20 09/13/20 History oxybutynin chloride 5 mg PO DAILY 07/26/20 09/13/20 History trazodone 200 mg PO BEDTIME 07/26/20 09/13/20 History docusate sodium [Colace] 100 mg PO BID 09/13/20 09/13/20 History polyethylene glycol 3350 [Miralax] 17 g PO DAILY 09/13/20 09/13/20 History Allergies Allergy/AdvReac Type Severity Reaction Status Date / Time No Known Allergies Allergy Unverified 06/21/20 15:24 [No Known Allergies*] Physical Exam Vital signs: Vital Signs Temp 97.7 F 09/13/20 13:32 Pulse 113 H 09/13/20 13:32 Resp 16 09/13/20 13:32 BP 129/83 09/13/20 13:32 Pulse Ox 95 09/13/20 13:32 Intake & Output 09/12/20 09/13/20 09/13/20 18:59 06:59 18:59 Other: Weight 86.2 kg Weight 86.2 kg - Constitutional Present: no acute distress - Routine HEENT Exam Head: Present: normal inspection - Routine Neck Exam Present: supple - Routine Respiratory Exam Present: CTAB - Routine Cardiovascular Exam Cardiovascular: Present: RRR, S1, S2 - Routine Abdominal Exam Present: soft, nontender - Routine Rectal Exam Patient deferred: digital exam - Routine Extremities Exam Present: nontender - Routine Skin Exam Present: intact - Routine Neurological Exam Present: alert, oriented X3, altered mental status - Detailed Neurological Exam: Coma Scale Eye Opening: Spontaneous (4) Motor Response: Obeys commands (6) - Routine Psychiatric Exam Present: depressed, flat affect Hem/Onc Consult Result - Labs CBC & Chem 7: 09/13/20 14:25 09/13/20 14:25 Assessment and Plan (1) Pulmonary embolism Status: Acute This is an unfortunate 75-year-old gentleman with a history of vegetative depression who has been maintained on ECT treatments. During one of those treatments, on August 22, he was noted to be tachycardic and referred to the ER, where he was diagnosed with the pulmonary embolism. CTA revealed: 1. Positive for solitary pulmonary embolism segmental posterior right upper lobe. No right ventricular strain. 2. No thoracic aortic enlargement or dissection. 3. Chronic pleural plaques. No airspace consolidation or effusion. He has been started on Eliquis. He does appear to be responding to that. He does not have any pulmonary symptoms and his sats are good. Ddimer is <200. This is reassuring. Currently available evidence is confined to sporadic case reports regarding ECT and NOACs. These reports do suggest successful implementation of ECT to patients receiving treatment with anticoagulation for DVT in thromboembolism. PLAN: At this point, weighing the risk benefit ratio, and reassuring literature, we can go ahead and resume his ECT, treatments, with careful monitoring and precautions. I wish him the best of luck. Thank you for this consult, CC: Dr. Ankit Sims.
[2020-09-13 14:36] LABS: MANUAL DIFF FLAG NO
[2020-09-13 14:45] LABS: Basophils Percent Auto 0.5 % (0-2); Eosinophils Absolute Auto 0.2 X10*3/uL (0.0-0.4); Eosinophils Percent Auto 3.5 % (0-4); Hemoglobin 12.7 g/dl (14.0-18.0); Imm Gran Abs Auto 0.01 X10*3/uL (0.00-0.03); Imm Gran Pct Auto 0.2 % (0.0-0.4); Lymphocytes Absolute Auto 1.2 X10*3/uL (1.2-4.9); Lymphocytes Percent Auto 20.1 % (20-40); Mean Corpuscular HGB Conc 33.4 g/dl (31.0-36.0); Mean Corpuscular Hemoglobin 32.3 pg (27.0-33.0); Mean Corpuscular Volume 96.7 fL (80-98); Mean Platelet Volume 8.8 fL (9.4-12.4); Monocytes Absolute Auto 0.7 X10*3/uL (0.1-1.2); Monocytes Percent Auto 11.9 % (2-11); Neutrophils Absolute Auto 3.7 X10*3/uL (2.0-8.3); Neutrophils Percent Auto 63.8 % (45-73); Platelet Count 214 X10*3/uL (160-400); Red Blood Count 3.93 X10*6/uL (4.60-5.80); White Blood Count 5.8 X10*3/uL (4.8-10.8)
[2020-09-13 14:56] LABS: D Dimer < 200 NG/ML
[2020-09-13 15:16] LABS: Alanine Aminotransferase 23 U/L (0-40); Albumin Level 3.8 g/dL (3.5-5.0); Alkaline Phosphatase 105 U/L (39-117); Anion Gap 14 (12-20); Aspartate Amino Transferase 21 U/L (5-37); Bilirubin Total 0.3 mg/dL (0.0-1.0); Blood Urea Nitrogen 31 mg/dL (9-16); Calcium 8.6 mg/dL (8.4-10.2); Carbon Dioxide 25 mmol/L (22-29); Chloride 104 mmol/L (96-108); Creatinine Clr Calc Pharmacy 59.3; Estimated Glomerular Filt Rate > 60; Glucose Random 145 mg/dL (60-115); Potassium 4.3 mmol/l (3.3-5.1); Sodium 139 mmol/L (135-145); Total Protein 6.3 g/dL (6.5-8.0)
== END | disposition home or self-care (01) ==
LOC: HO.ONC 09-13 13:23
PROVIDERS: PCP Nurse Practitioner Family; Referring Provider Psychiatry & Neurology Psychiatry; Visit Provider Internal Medicine Medical Oncology
DX: I26.99 Other pulmonary embolism without acute cor pulmonale (principal); F32.9 Major depressive disorder, single episode, unspecified; Z79.01 Long term (current) use of anticoagulants
CPT/HCPCS: 36415; 80053; 85025; 85379; 99214

== ENCOUNTER → 2024-06-24 07:52 | Day surgery (SDC) | payer MEDICARE, OTHER, SELFPAY ==
[2024-06-24] VITALS (8 sets, daily range): BP systolic 134–177; BP diastolic 71–105; PULSE 99–113; RESP 20; TEMP 36.5–37.1; O2SAT 92–97; BMI 25.8
--- NOTE | 2024-06-24 08:43 | HO.ANESPROP2 ---
[facility] Active Problems Active Problems: All Active Problems Major depressive disorder, recurrent, severe with psychotic features (Acute) Depression (Acute) Physical deconditioning (Acute) Preoperative cardiovascular examination (Acute) Anemia (Acute) GERD (gastroesophageal reflux disease) (Acute) Past Medical History Medical History COVID-19 vaccine administered History of electroconvulsive therapy Major depressive disorder, recurrent, severe with psychotic features Pulmonary embolism Diverticulitis of colon with perforation Hyperlipidemia HTN (hypertension) Dementia GERD (gastroesophageal reflux disease) Depression SVT (supraventricular tachycardia) Family History Family History Brother Blood clot in vein Other No history of cardiac disorder Family history of problems with anesthesia: No Surgical History Surgical History History of esophagogastroduodenoscopy (EGD) H/O colonoscopy Status post Paula's procedure History of colostomy reversal H/O hernia repair History of Problems with Anesthesia: No Social History Social History Household Members: Other Housing: Assisted Living Facility Are you a primary healthcare administration intern to a significant other at home: No Do you presently have visiting nurse or other home services: No Alcohol intake: former Comment: Much improved balance and gait. Patient Tobacco Use Status: Never used Tobacco Second Hand Smoke Exposure: No Advance Directives: No Advance Directives Information Provided: Yes Advance Directives Date on File: 07/27/20 service: Yes Current occupational status: retired Sexual orientation: Straight/Heterosexual Meds Allergies Allergy/AdvReac Type Severity Reaction Status Date / Time No Known Allergies Allergy Verified 01/25/21 06:43 [No Known Allergies*] Exam Height,Weight and Vital Signs: Height 5 ft 11 in Weight 83.915 kg Last Vital Signs Temp 98.7 F 06/24/24 08:09 Pulse 113 H 06/24/24 08:09 Resp 20 06/24/24 08:09 BP 161/71 H 06/24/24 08:09 Pulse Ox 93 06/24/24 08:09 O2 Del Method Room Air 06/24/24 08:09 Airway Mallampati Class: II (edentulous) TM Dist: >3cm Neck ROM: Limited Denture: Upper and Lower Loose/Missing/Broken Teeth: Yes, Upper and Lower Heart: tachy, reg rhythm Lungs: CTA Assessment and Plan Assessment Anesthesia Assessment: Anesthesia Plan Discussed and Chart Reviewed Final Anesthetic Review Family History of Problems with Anesthesia: No History of Problems with Anesthesia: No NPO: Yes ASA Class: III Final Preanesthetic Review: Meds/Allgs Chart Reviewed, Consent Obtained/Reviewed and Anes Risks/Benef Reviewed Patient Risk: Intermediate Procedure Risk: Intermediate Anesthetic Plan Anesthetic Plan: GA Disposition: Standard PACU
--- NOTE | 2024-06-24 08:57 | MHC.SHP ---
Pre-Procedural Eval Section A - 24 Hr Update-Section A only Date of Service: 06/24/24 Section B - Complete if H&P > 30 days Chief Complaint: depression Details of Present Illness: pt stable tolearates ect well preop anxiety ongoing requires b annette Relevant Family History (Specify if Yes): No Relevant Social History: None Present Medications: see Short Stay Collaborative assessment History of Previous Operations: No relevant previous surgery Allergies: Allergies Allergy/AdvReac Type Severity Reaction Status Date / Time No Known Allergies Allergy Verified 01/25/21 06:43 [No Known Allergies*] Review of Systems Sugical H&P ROS: Negative: Cardiovascular, Respiratory, Neurological and Psychiatric Exam Surgical H&P Exam: Normal: Heart (rr), Normal: Lungs (clear ) and Normal: Neurological Exam Comment: preop anxiety 149/87 p 122 always gets anxious preop Plan Diagnosis/Plan: Unchanged I have reviewed the history and physical and performed a pertinent physical examination on my patient. No changes have occurred unless specified. Time Spent With Patient Time: Total time managing care of this patient today ____ minutes.
--- NOTE | 2024-06-24 08:58 | HO.ECTPROC ---
ECT Procedure Note Diagnosis/Treatment Date of Service: 06/24/24 Diagnosis: Major Depressive Disorder and Catatonia (hx) Previous ECT Date: 05/20/24 Treatment: Maintenance Interval Clinical Notes: Pt seen in f/u mood has been stable no depression no psychosis . Does well with bifrontal tx ongoing. No new medical complaints spoke with hcp for consent things are going well she states. Pt has anxiety when waiting for ect becomes tachycardic each time tx with esmolol by anesthesia. Has been stable with monthly ECT for number of years when has not been able to get ECT has unfortunately relapsed. Patient followed by Dr. Sims psychiatrically Patient treated bifrontally lowest pulse had seizure of 46 seconds given Versed postop. Transient confusion post ECT with some anxiety which has been unremarkable patient discharged after stabilizes Less confusion lower pulse with protocol Time: Total time managing care of this patient today ____ minutes. ECT Settings Device: THYMATRON DGx Electrode Placement: Bifrontal Program/Pulse Width: 0.25 Energy Percent: 100 Seizure Duration By EEG (in seconds): 46 Medications Administration General Anesthetic: Etomidate (14) Muscle Relaxant: Succinylcholine (100) Ancillary Medications Cardiovascular Medications: Esmolol (20) Miscillaneous Medications: Midazolam (2 post) Airway Management Airway Management: Bag Mask Ventilation Treatment Recommendations No Changes Recommended: No change Notes: program at 0.25 program
[2024-06-24] MEDS: Acetaminophen 325 MG TABLET 650 MG PO (09:56)
== END | disposition home or self-care (01) ==
PROVIDERS: PCP Nurse Practitioner Family; Visit Provider Psychiatry & Neurology Psychiatry
PROC: (CPT 90870; principal; 2024-06-24 09:00)
DX: F33.3 Major depressive disorder, recurrent, severe with psychotic symptoms (principal); R40.4 Transient alteration of awareness; F41.9 Anxiety disorder, unspecified; F03.90 Unspecified dementia, unspecified severity, without behavioral disturbance, psychotic disturbance, mood disturbance, and anxiety; I10 Essential (primary) hypertension; I26.99 Other pulmonary embolism without acute cor pulmonale; I47.10 Supraventricular tachycardia, unspecified; D64.9 Anemia, unspecified; E78.5 Hyperlipidemia, unspecified; K21.9 Gastro-esophageal reflux disease without esophagitis; Z87.19 Personal history of other diseases of the digestive system; Z79.01 Long term (current) use of anticoagulants
CPT/HCPCS: 90870; J0330; J1805; J2250

== ENCOUNTER → 2024-06-24 07:52 | Outpatient (BNV) | payer MEDICARE, OTHER, SELFPAY | PROVIDERS: PCP Nurse Practitioner Family; Visit Provider Psychiatry & Neurology Psychiatry | DX: F33.3 Major depressive disorder, recurrent, severe with psychotic symptoms (principal) | CPT/HCPCS: 90870 ==

== ENCOUNTER 2024-06-24 11:03 | Emergency (ER) | payer MEDICARE, OTHER, SELFPAY ==
[2024-06-24 11:15] VITALS: BP 145/92; PULSE 102; RESP 16; TEMP 36.6; O2SAT 94; BMI 30.3
--- NOTE | 2024-06-24 11:16 | ED_ITS ---
HPI - Head Injury General Chief complaint: Nausea/Vomiting/Diarrhea Stated complaint: vomiting Time Seen by Provider: 06/24/24 11:17 Source: patient Mode of arrival: wheelchair Limitations: no limitations History of Present Illness ED Provider: javier MENDOZA Narrative: Patient is an 79-year-old male with history of MDD, anemia, GERD presenting to the emergency department with headache, nausea, and vomiting immediately after his ECT treatment. Patient states that he felt fine before the treatment, and has had several ECT treatments in the past. Following the treatment he developed a 4/10 headache as well as nausea and vomiting. He denies chest pain, palpitations, or shortness of breath. States that he is not currently nauseated. Denies blurred vision, double vision or other visual changes. He did not fall, no head strike. He is on Eliquis. Complaint: other Onset (ago): minute(s) Place: other Loss of Consciousness: no Severity scale (1-10): 4 Quality: aching Radiation: none Other Injuries: none Context: other anticoagulant use Associated symptoms: other Related Data Previous Rx's ?Medication ?Instructions ?Recorded apixaban 5 mg tablet (Eliquis) 5 mg PO BID #60 tabs 09/20/21 atorvastatin 40 mg tablet 1 tab PO BEDTIME 30 days #30 tabs 09/20/21 benzonatate 100 mg capsule 100 mg PO TID PRN cough 30 days 09/20/21 #60 caps cholecalciferol (vitamin D3) 10 10 mcg PO DAILY 30 days #30 tabs 09/20/21 mcg (400 unit) tablet (Vitamin D3) docusate sodium 100 mg capsule 100 mg PO BID 60 days #120 caps 09/20/21 (Colace) erythromycin 5 mg/gram (0.5 %) eye 1 cm ophthalmic (eye) BID 30 days 09/20/21 ointment #1 g ferrous sulfate 325 mg (65 mg 325 mg PO DAILY 30 days #30 tabs 09/20/21 iron) tablet finasteride 5 mg tablet 1 tab PO DAILY 30 days #30 tabs 09/20/21 melatonin 3 mg tablet 6 mg (2 x 3 mg) PO BEDTIME 30 days 09/20/21 #60 tabs nortriptyline 25 mg capsule 75 mg (3 x 25 mg) PO BEDTIME 30 09/20/21 days #90 caps olanzapine 7.5 mg tablet 7.5 mg PO BEDTIME 30 days #30 tabs 09/20/21 omeprazole 20 mg capsule,delayed 20 mg PO DAILY@0630 30 days #30 09/20/21 release caps oxybutynin chloride 5 mg tablet 5 mg PO DAILY 30 days #30 tabs 09/20/21 sennosides 8.6 mg tablet (Senna 8.6 mg PO BEDTIME 30 days #30 tabs 09/20/21 Lax) Allergies Allergy/AdvReac Type Severity Reaction Status Date / Time No Known Allergies Allergy Verified 06/24/24 11:17 [No Known Allergies*] Review of Systems 2 Review of Systems: As per HPI. Yes all other systems are reviewed and are negative Constitutional: Constitutional: Reports as per HPI PMFSH Past Medical History Medical History COVID-19 vaccine administered History of electroconvulsive therapy Major depressive disorder, recurrent, severe with psychotic features Pulmonary embolism Diverticulitis of colon with perforation Hyperlipidemia HTN (hypertension) Dementia GERD (gastroesophageal reflux disease) Depression SVT (supraventricular tachycardia) Surgical History History of esophagogastroduodenoscopy (EGD) H/O colonoscopy Status post Paula's procedure History of colostomy reversal H/O hernia repair Family History Family History Brother Blood clot in vein Other No history of cardiac disorder Social History Social History Household Members: Other Housing: Assisted Living Facility Are you a primary health care technician to a significant other at home: No Do you presently have visiting nurse or other home services: No Alcohol intake: former Comment: headache better Patient Tobacco Use Status: Never used Tobacco Smoked in Last 30 Days: No Second Hand Smoke Exposure: No Use of substances other than those prescribed or required for medical reasons: No Advance Directives: No Advance Directives Information Provided: Yes Advance Directives Date on File: 07/27/20 service: Yes Current occupational status: retired Sexual orientation: Straight/Heterosexual Physical Exam 2 Vital Signs: Vital Signs: Last Vital Signs Temp 98.3 F 06/24/24 18:26 Pulse 100 06/24/24 18:26 Resp 17 06/24/24 18:26 BP 132/81 06/24/24 18:26 Pulse Ox 95 06/24/24 18:26 O2 Del Method Room Air 06/24/24 18:26 BMI result Body Mass Index 30.3 Vital signs have been reviewed and appear to be correct. Blood pressure normal. Heart rate slightly tachycardic. Respiratory rate normal. Temperature normal. Oxygen saturation normal. Const: General: cooperative, healthy appearing and no acute distress O rientation/consciousness: oriented to person, oriented to place, oriented to time and patient oriented x3 Limitations: no limitations HEENT: Head: Yes normocephalic and Yes atraumatic Ears: external ears normal General nose exam: Normal external nose present Face and sinus: Yes face symmetric Mouth: oropharynx normal and moist mucous membranes Throat: Yes uvula midline Eyes: Pupils: Equal, round and reactive pupils present Neck: Neck: Yes normal visual inspection and Yes supple Resp: Effort & Inspection: normal respiratory effort and able to speak in complete sentences Auscultation: clear to auscultation bilaterally Cardio: Rate: regular rate Rhythm: regular rhythm Heart sounds: S1 normal heart sound present and S2 normal heart sound present GI: Palpation (GI): Soft to palpation and nontender Auscultation: n ormoactive bowel sounds : General: Yes no CVA tenderness Back/Spine/Pelvis: Back: no CVA tenderness Skin: General skin exam: elasticity normal and turgor normal Neuro: General: oriented to person, oriented to place, oriented to time, patient oriented x3, moves all extremities, no focal motor deficits and CN's II- XI intact bilaterally Cranial nerves: Yes Equal, round and reactive pupils present Cognition (Neuro): normal cognition Extrem: General: Yes full ROM, Yes no pedal edema and Yes no calf tenderness Psych: Mental Status: mental status grossly normal Affect: normal affect Thought process: Normal thought process present NIH Stroke Scale Internal: Initial- Upon Arrival Time: 12:07 Level of Consciousness: Alert Level of Consciousness Questions: Answers both questions correctly Level of Consciousness Commands: Performs both tasks correctly Best Gaze: Normal Visual: No visual loss Facial Palsy: Normal Motor Arm (Right): No drift Motor Arm (Left): No drift Motor Leg (Right): No drift Motor Leg (Left): No drift Limb Ataxia: Absent Sensory: Normal Best Language: No aphasia Dysarthia: Normal Extinction and Inattention: No abnormality Score: 0 Medical Decision Making Medical Decision Making [facility] Narrative: Patient is an 79-year-old male with history of MDD, anemia, GERD presenting to the emergency department with headache, nausea, and vomiting immediately after his ECT treatment. On exam patient is awake, A+Ox3, VS WNL, afebrile, normal neurological exam without focal deficits, physical exam findings as above. Given reported symptoms and physical exam findings, initial differential includes adverse medication reaction, viral illness, gastroenteritis, gastritis, GERD. Less likely ACS but will check EKG and troponin. Do not suspect ICH. Per Dr. Molina, patient received etomidate, esmolol, and succinylcholine prior to procedure and versed after. Labs notable for no leukocytosis, stable H&H, no significant electrolyte abnormalities, initial troponin 10.3, will obtain repeat. Case discussed with Dr. Gudino who does not feel CT head is indicated. EKG shows normal sinus rhythm. Repeat troponins 28.8, 31.0. Case discussed with Dr. Cortez who does not have concerns for ischemia. Case discussed with Dr. Molina as well, notified that patient will be discharged back to assisted living. Plan discussed with patient as well as patient's step daughter, Brenda, who is in agreement with plan. She does note that patient had nausea and vomiting yesterday as well, so less likely that today's symptoms were related to his treatment, and more likely gastroenteritis/gastritis. Return precautions discussed as well as PCP follow up. Differential Diagnosis Differential Diagnoses: The differential diagnosis associated with the presentation includes As per [facility] Admission/Observation Consideration of admission/observation: Escalation of care including admission/observation considered Patient would have been admitted to the hospital had their work up had any findings where hospital admission was appropriate and their clinical presentation warranted hospital admission. Consult Healthcare Provider Management of the patient was discussed with: Supervisor Laboratory (Dr. Cortez) Lab Data [facility] Lab Attestation statement: I reviewed the patient's lab results. As per [facility] 06/24/24 13:37 Labs: Lab Results 06/24/24 06/24/24 06/24/24 Range/Units 12:23 13:37 13:45 WBC 9.5 (4.8-10.8) X10*3/uL RBC 3.75 L (4.60-5.80) X10*6/uL Hgb 12.9 L (14.0-18.0) g/dl Hct 37.0 L (42.0-52.0) % MCV 98.7 H (80.0-98.0) fL MCH 34.4 H (27.0-33.0) pg MCHC 34.9 (31.0-36.0) g/dl RDW 13.3 (11.0-16.0) % Plt Count 184 (160-400) X10*3/uL MPV 8.6 L (9.4-12.4) fL Immature Gran % (Auto) 0.4 (0.0-0.4) % Neut % (Auto) 84.4 H (45-73) % Lymph % (Auto) 7.2 L (20-40) % Cross % (Auto) 7.5 (2-11) % Eos % (Auto) 0.2 (0-4) % Baso % (Auto) 0.3 (0-2) % Lymph # (Auto) 0.7 L (1.2-4.9) X10*3/uL Cross # (Auto) 0.7 (0.1-1.2) X10*3/uL Eos # (Auto) 0.0 (0.0-0.4) X10*3/uL Baso # (Auto) 0.0 (0.0-0.2) X10*3/uL Abs Immat Gran (auto) 0.04 H (0.00-0.03) X10*3/uL Absolute Neuts (auto) 8.0 (2.0-8.3) x10*3/uL Absolute Nucleated RBC 0.000 (0.0-0.012) X10*3/uL Nucleated RBC % (auto) 0.0 (0.0-0.2) /100WBC Troponin I High Sens 10.3 (<3.5-35.0) ng/L Urine Color Yellow Urine Appearance Clear Urine pH 5.0 (5.0-9.0) Ur Specific [place] 1.025 (1.005-1.025) Urine Protein 30 (1+) H (Neg-Trace) mg/dL Urine Glucose (UA) Negative (Negative) mg/dL Urine Ketones Negative (Negative) mg/dL Urine Blood Negative (Negative) Urine Nitrite Negative (Negative) Ur Leukocyte Esterase Negative (Negative) Urine RBC 0-2 (0-2) /HPF Urine WBC 0-5 (0-5) /HPF Ur Squamous Epith Cells 0-2 (0-2) /HPF Urine Bacteria None Seen (None Seen) Hyaline Casts 3-5 (0-2) /LPF Influenza Type A (PCR) NEGATIVE (Negative) Influenza Type B (PCR) NEGATIVE (Negative) RSV RNA Qual (PCR) NEGATIVE (Negative) SARS-CoV-2 RNA (RT-PCR) NEGATIVE (Negative) 06/24/24 06/24/24 Range/Units 16:14 18:26 WBC (4.8-10.8) X10*3/uL RBC (4.60-5.80) X10*6/uL Hgb (14.0-18.0) g/dl Hct (42.0-52.0) % MCV (80.0-98.0) fL MCH (27.0-33.0) pg MCHC (31.0-36.0) g/dl RDW (11.0-16.0) % Plt Count (160-400) X10*3/uL MPV (9.4-12.4) fL Immature Gran % (Auto) (0.0-0.4) % Neut % (Auto) (45-73) % Lymph % (Auto) (20-40) % Cross % (Auto) (2-11) % Eos % (Auto) (0-4) % Baso % (Auto) (0-2) % Lymph # (Auto) (1.2-4.9) X10*3/uL Cross # (Auto) (0.1-1.2) X10*3/uL Eos # (Auto) (0.0-0.4) X10*3/uL Baso # (Auto) (0.0-0.2) X10*3/uL Abs Immat Gran (auto) (0.00-0.03) X10*3/uL Absolute Neuts (auto) (2.0-8.3) x10*3/uL Absolute Nucleated RBC (0.0-0.012) X10*3/uL Nucleated RBC % (auto) (0.0-0.2) /100WBC Troponin I High Sens 28.8 D 31.0 (<3.5-35.0) ng/L Urine Color Urine Appearance Urine pH (5.0-9.0) Ur Specific [place] (1.005-1.025) Urine Protein (Neg-Trace) mg/dL Urine Glucose (UA) (Negative) mg/dL Urine Ketones (Negative) mg/dL Urine Blood (Negative) Urine Nitrite (Negative) Ur Leukocyte Esterase (Negative) Urine RBC (0-2) /HPF Urine WBC (0-5) /HPF Ur Squamous Epith Cells (0-2) /HPF Urine Bacteria (None Seen) Hyaline Casts (0-2) /LPF Influenza Type A (PCR) (Negative) Influenza Type B (PCR) (Negative) RSV RNA Qual (PCR) (Negative) SARS-CoV-2 RNA (RT-PCR) (Negative) Independent Interpretation I performed an independent interpretation of an: EKG (Normal sinus rhythm, rate 95 beats per minute, slight prolongation of ID interval, compared to prior EKG from 2022 PACs no longer present) Independent Historian Clinical information obtained from an independent historian. History obtained from or confirmed by: Other (Brenda, step daughter) External Record Review External record reviewed: Inpatient record, Office record and Outpatient record Critical Care Time Critical Care Time Critical Care Time: Yes Total Critical Care Time: 35 Attestation: I have personally provided critical care time exclusive of time spent on separately billable procedures. Time includes review of lab data, radiology results, discussion with consultants, and monitoring for potential decompensation. Intervention performed as documented. Discharge Plan Discharge Clinical Impression: Nausea & vomiting Patient Disposition: Home, Self-Care Instructions: Acute Nausea and Vomiting (ED) Additional Instructions: You were evaluated in the emergency department today for nausea and vomiting. Your symptoms improved in the ED. It is possible that this is related to the medications given at your ECT treatment, it is also possible that your symptoms are due to a viral illness which will resolve on it's own. Avoid spicy or acidic foods. Please follow up with your primary care physician within two days. Return to the emergency department if you experience shortness of breath, worsening or uncontrolled abdominal pain, chest pain, light headedness, faiting, persistent nausea and vomiting, bloody vomit or stools, black, tarry stools, or any other concerning symptoms. Prescriptions: No Action sennosides [Senna Lax] 8.6 mg Tablet 8.6 mg PO BEDTIME 30 Days Qty: 30 0RF melatonin 3 mg Tablet 6 mg PO BEDTIME 30 Days Qty: 60 0RF olanzapine 7.5 mg Tablet 7.5 mg PO BEDTIME 30 Days Qty: 30 0RF nortriptyline 25 mg Capsule 75 mg PO BEDTIME 30 Days Qty: 90 0RF benzonatate 100 mg Capsule 100 mg PO TID PRN (Reason: cough) 30 Days Qty: 60 0RF erythromycin 5 mg/gram (0.5 %) Ointment 1 cm ophthalmic (eye) BID 30 Days Qty: 1 0RF omeprazole 20 mg Capsule,Delayed Release(Dr/Ec) 20 mg PO DAILY@0630 30 Days Qty: 30 0RF cholecalciferol (vitamin D3) [Vitamin D3] 10 mcg (400 unit) Tablet 10 mcg PO DAILY 30 Days Qty: 30 0RF atorvastatin 40 mg tablet 1 tab PO BEDTIME 30 Days Qty: 30 0RF ferrous sulfate 325 mg (65 mg iron) Tablet 325 mg PO DAILY 30 Days Qty: 30 0RF docusate sodium [Colace] 100 mg Capsule 100 mg PO BID 60 Days Qty: 120 0RF oxybutynin chloride 5 mg tablet 5 mg PO DAILY 30 Days Qty: 30 0RF finasteride 5 mg tablet 1 tab PO DAILY 30 Days Qty: 30 0RF Eliquis 5 mg tablet 5 mg PO BID Qty: 60 0RF Rx Instructions: To start on 09/26. Print Language: Chinese
--- NOTE | 2024-06-24 12:03 | ECG_ITS ---
Test Reason : N/V Blood Pressure : / mmHG Vent. Rate : 095 BPM Atrial Rate : 095 BPM P-R Int : 204 ms QRS Dur : 092 ms QT Int : 378 ms P-R-T Axes : 062 -31 010 degrees QTc Int : 475 ms Normal sinus rhythm Left axis deviation Abnormal ECG When compared with ECG of 23-JAN-2023 08:32, Premature atrial complexes are no longer Present Referred By: Jo-Ann Adame Electronically Signed By:LUIS ANTONIO BURTON
[2024-06-24 12:48] LABS: Troponin-I High Sensitivity 10.3 ng/L (<3.5-35.0)
[2024-06-24 13:00] VITALS: BP 137/78; PULSE 98; RESP 12; TEMP 36.6; O2SAT 95
[2024-06-24 13:08] LABS: Influenza A PCR NEGATIVE (Negative); Influenza B PCR NEGATIVE (Negative); Resp Syncy Virus RNA Qual PCR NEGATIVE (Negative); SARS COV2 PCR INHOUSE NEGATIVE (Negative)
[2024-06-24 13:42] LABS: MANUAL DIFF FLAG NO
[2024-06-24 13:43] LABS: Basophils Percent Auto 0.3 % (0-2); Eosinophils Percent Auto 0.2 % (0-4); Hemoglobin 12.9 g/dl (14.0-18.0); Imm Gran Abs Auto 0.04 X10*3/uL (0.00-0.03); Imm Gran Pct Auto 0.4 % (0.0-0.4); Lymphocytes Absolute Auto 0.7 X10*3/uL (1.2-4.9); Lymphocytes Percent Auto 7.2 % (20-40); Mean Corpuscular HGB Conc 34.9 g/dl (31.0-36.0); Mean Corpuscular Hemoglobin 34.4 pg (27.0-33.0); Mean Corpuscular Volume 98.7 fL (80.0-98.0); Mean Platelet Volume 8.6 fL (9.4-12.4); Monocytes Absolute Auto 0.7 X10*3/uL (0.1-1.2); Monocytes Percent Auto 7.5 % (2-11); Neutrophils Percent Auto 84.4 % (45-73); Platelet Count 184 X10*3/uL (160-400); Red Blood Count 3.75 X10*6/uL (4.60-5.80); Red Cell Distribution Width 13.3 % (11.0-16.0); White Blood Count 9.5 X10*3/uL (4.8-10.8)
[2024-06-24 13:51] LABS: Appearance Urine Clear; Color Urine Yellow; Glucose Urine UA Negative (Negative); Leukocyte Esterase Urine Negative (Negative); Nitrite Urine Negative (Negative); Specific Gravity - Urine 1.025 (1.005-1.025); UMIC TRIGGER UACC YES; Urine Blood Negative (Negative); Urine Ketones Negative (Negative); Urine Protein 30 (1+) mg/dL (Neg-Trace)
[2024-06-24 13:53] LABS: Bacteria Urine None Seen (None Seen); RBC Urine 0-2 /HPF (0-2); Squamous Epithelial Cell Urine 0-2 /HPF (0-2); WBC Urine 0-5 /HPF (0-5)
[2024-06-24 14:15] VITALS: BP 116/82; PULSE 99; RESP 21; TEMP 36.7; O2SAT 95
[2024-06-24 16:27] VITALS: BP 132/81; PULSE 100; RESP 17; TEMP 36.7; O2SAT 94
[2024-06-24 16:38] LABS: Troponin-I High Sensitivity 28.8 ng/L (<3.5-35.0)
[2024-06-24 18:26] VITALS: BP 132/81; PULSE 100; RESP 17; TEMP 36.8; O2SAT 95
[2024-06-24 21:20] VITALS: BP 132/71; PULSE 98; RESP 16; TEMP 36.8; O2SAT 95
== END 2024-06-24 21:22 | disposition home or self-care (01) ==
PROVIDERS: Registered Nurse Emergency; Emergency Provider Emergency Medicine
DX: R11.2 Nausea with vomiting, unspecified (principal); R51.9 Headache, unspecified; R94.31 Abnormal electrocardiogram [ECG] [EKG]; Z79.01 Long term (current) use of anticoagulants; Z03.818 Encounter for observation for suspected exposure to other biological agents ruled out
CPT/HCPCS: 0241U; 36415; 81001; 84484; 85025; 93005; 99283; 99285

== ENCOUNTER 2024-07-22 07:56 | Day surgery (SDC) | payer MEDICARE, OTHER, SELFPAY ==
[2024-07-22 08:26] VITALS: BP 149/82; PULSE 129; RESP 24; TEMP 36.7; O2SAT 95; BMI 25.8
--- NOTE | 2024-07-22 08:33 | HO.ANESPROP2 ---
[facility], [facility] Active Problems Active Problems: All Active Problems Major depressive disorder, recurrent, severe with psychotic features (Acute) Depression (Acute) Physical deconditioning (Acute) Preoperative cardiovascular examination (Acute) Anemia (Acute) GERD (gastroesophageal reflux disease) (Acute) Past Medical History Medical History COVID-19 vaccine administered History of electroconvulsive therapy Major depressive disorder, recurrent, severe with psychotic features Pulmonary embolism Diverticulitis of colon with perforation Hyperlipidemia HTN (hypertension) Dementia GERD (gastroesophageal reflux disease) Depression SVT (supraventricular tachycardia) Family History Family History Brother Blood clot in vein Other No history of cardiac disorder Family history of problems with anesthesia: No Surgical History Surgical History History of esophagogastroduodenoscopy (EGD) H/O colonoscopy Status post Paula's procedure History of colostomy reversal H/O hernia repair History of Problems with Anesthesia: No Social History Social History Household Members: Other Housing: Assisted Living Facility Are you a primary care companion to a significant other at home: No Do you presently have visiting nurse or other home services: No Alcohol intake: former Comment: headache better Patient Tobacco Use Status: Never used Tobacco Second Hand Smoke Exposure: No Advance Directives: No Advance Directives Information Provided: Yes Advance Directives Date on File: 07/27/20 service: Yes Current occupational status: retired Sexual orientation: Straight/Heterosexual Meds Allergies Allergy/AdvReac Type Severity Reaction Status Date / Time No Known Allergies Allergy Verified 06/24/24 11:17 [No Known Allergies*] Active Medications: Current Medications Lactated Ringer's (Lr) 1,000 mls @ 50 mls/hr IVCONT .Q20H ROMMEL Exam Height,Weight and Vital Signs: Height 5 ft 11 in Weight 83.915 kg Last Vital Signs Temp 98.1 F 07/22/24 08:26 Pulse 129 H 07/22/24 08:26 Resp 24 H 07/22/24 08:26 BP 149/82 H 07/22/24 08:26 Pulse Ox 95 07/22/24 08:26 O2 Del Method Room Air 07/22/24 08:26 Airway Mallampati Class: II (edentulous) TM Dist: >3cm Neck ROM: Full Heart: rrr Lungs: cta Assessment and Plan Assessment Anesthesia Assessment: Anesthesia Plan Discussed and Chart Reviewed Final Anesthetic Review Family History of Problems with Anesthesia: No History of Problems with Anesthesia: No NPO: Yes ASA Class: III Final Preanesthetic Review: No Changes in Pt Med Stat, Meds/Allgs Chart Reviewed and Consent Obtained/Reviewed Patient Risk: Intermediate Procedure Risk: Intermediate Anesthetic Plan Anesthetic Plan: GA Disposition: Standard PACU
--- NOTE | 2024-07-22 08:37 | MHC.SHP ---
Pre-Procedural Eval Section A - 24 Hr Update-Section A only Date of Service: 07/22/24 Section B - Complete if H&P > 30 days Chief Complaint: depression Details of Present Illness: pt stable tolearates ect well preop anxiety ongoing requires b annette no further n or v no physical complaints Relevant Family History (Specify if Yes): No Relevant Social History: None Present Medications: see Short Stay Collaborative assessment History of Previous Operations: No relevant previous surgery Allergies: Allergies Allergy/AdvReac Type Severity Reaction Status Date / Time No Known Allergies Allergy Verified 06/24/24 11:17 [No Known Allergies*] Review of Systems Sugical H&P ROS: Negative: Cardiovascular, Respiratory, Neurological, Psychiatric and Gastrointestinal (denies gi sx ) Exam Surgical H&P Exam: Normal: Heart (rr), Normal: Lungs (clear ) and Normal: Neurological Exam Comment: preop anxiety 149/82p 129 always gets anxious preop Plan Diagnosis/Plan: Unchanged I have reviewed the history and physical and performed a pertinent physical examination on my patient. No changes have occurred unless specified. Time Spent With Patient Time: Total time managing care of this patient today ____ minutes.
--- NOTE | 2024-07-22 08:49 | HO.ECTPROC ---
ECT Procedure Note Diagnosis/Treatment Date of Service: 07/22/24 Diagnosis: Major Depressive Disorder and Catatonia (hx) Previous ECT Date: 07/01/24 Treatment: Maintenance Interval Clinical Notes: Pts mood stable no medical complaints discussed with hcp consent for tx . Cont maint ect generally well tolerated no breakthrough . bf 0.25 protocal Time: Total time managing care of this patient today ____ minutes. ECT Settings Device: THYMATRON DGx Electrode Placement: Bifrontal Program/Pulse Width: 0.25 Energy Percent: 100 Seizure Duration By EEG (in seconds): 44 Medications Administration General Anesthetic: Etomidate (14) Muscle Relaxant: Succinylcholine (100) Ancillary Medications Cardiovascular Medications: Esmolol (30) Miscillaneous Medications: Midazolam (2 post) Airway Management Airway Management: Bag Mask Ventilation Treatment Recommendations No Changes Recommended: No change Notes: program at 0.25 program Pt Tolerated Procedure w/o Issue: Yes
[2024-07-22 09:09] VITALS: BP 144/92; PULSE 116; RESP 16; TEMP 36.8; O2SAT 95
[2024-07-22 09:14] VITALS: BP 149/98; PULSE 118; RESP 22; O2SAT 94
[2024-07-22 09:19] VITALS: BP 142/86; PULSE 126; RESP 20; O2SAT 94
[2024-07-22 09:24] VITALS: BP 151/96; PULSE 130; RESP 20; O2SAT 95
[2024-07-22 09:39] VITALS: BP 136/92; PULSE 118; RESP 22; TEMP 36.8; O2SAT 96
== END 2024-07-22 10:00 | disposition home or self-care (01) ==
PROVIDERS: Visit Provider Psychiatry & Neurology Psychiatry
PROC: (CPT 90870; principal; 2024-07-22 09:00)
DX: F33.2 Major depressive disorder, recurrent severe without psychotic features (principal); R40.4 Transient alteration of awareness; F41.9 Anxiety disorder, unspecified; F03.90 Unspecified dementia, unspecified severity, without behavioral disturbance, psychotic disturbance, mood disturbance, and anxiety; I10 Essential (primary) hypertension; I47.10 Supraventricular tachycardia, unspecified; D64.9 Anemia, unspecified; E78.5 Hyperlipidemia, unspecified; K21.9 Gastro-esophageal reflux disease without esophagitis; I26.99 Other pulmonary embolism without acute cor pulmonale; Z87.19 Personal history of other diseases of the digestive system; Z79.01 Long term (current) use of anticoagulants; Z79.899 Other long term (current) drug therapy
CPT/HCPCS: 90870; J0330; J1805; J2250

== ENCOUNTER → 2024-07-22 07:56 | Outpatient (BNV) | payer MEDICARE, OTHER, SELFPAY | PROVIDERS: Visit Provider Psychiatry & Neurology Psychiatry | DX: F33.3 Major depressive disorder, recurrent, severe with psychotic symptoms (principal) | CPT/HCPCS: 90870 ==

== ENCOUNTER 2024-08-19 07:50 | Day surgery (SDC) | payer MEDICARE, OTHER, SELFPAY ==
[2024-08-19] VITALS (7 sets, daily range): BP systolic 133–151; BP diastolic 86–97; PULSE 111–136; RESP 16–20; TEMP 36.4–37.2; O2SAT 93–97; BMI 25.8
--- NOTE | 2024-08-19 08:29 | HO.ANESPROP2 ---
[facility] Active Problems Active Problems: All Active Problems Major depressive disorder, recurrent, severe with psychotic features (Acute) Depression (Acute) Physical deconditioning (Acute) Preoperative cardiovascular examination (Acute) Anemia (Acute) GERD (gastroesophageal reflux disease) (Acute) Past Medical History Medical History COVID-19 vaccine administered History of electroconvulsive therapy Major depressive disorder, recurrent, severe with psychotic features Pulmonary embolism Diverticulitis of colon with perforation Hyperlipidemia HTN (hypertension) Dementia GERD (gastroesophageal reflux disease) Depression SVT (supraventricular tachycardia) Family History Family History Brother Blood clot in vein Other No history of cardiac disorder Family history of problems with anesthesia: No Surgical History Surgical History History of esophagogastroduodenoscopy (EGD) H/O colonoscopy Status post Paula's procedure History of colostomy reversal H/O hernia repair History of Problems with Anesthesia: No Social History Social History Household Members: Other Housing: Assisted Living Facility Are you a primary primary care nurse practitioner to a significant other at home: No Do you presently have visiting nurse or other home services: No Alcohol intake: former Comment: headache better Patient Tobacco Use Status: Never used Tobacco Second Hand Smoke Exposure: No Advance Directives: No Advance Directives Information Provided: Yes Advance Directives Date on File: 07/27/20 service: Yes Current occupational status: retired Sexual orientation: Straight/Heterosexual Meds Allergies Allergy/AdvReac Type Severity Reaction Status Date / Time No Known Allergies Allergy Verified 06/24/24 11:17 [No Known Allergies*] Active Medications: Current Medications Lactated Ringer's (Lr) 1,000 mls @ 100 mls/hr IVCONT .Q10H ROMMEL Exam Height,Weight and Vital Signs: Height 5 ft 11 in Weight 83.915 kg Last Vital Signs Temp 98.9 F 08/19/24 08:12 Pulse 125 H 08/19/24 08:12 Resp 16 08/19/24 08:12 BP 151/92 H 08/19/24 08:12 Pulse Ox 93 08/19/24 08:12 O2 Del Method Room Air 08/19/24 08:12 Airway Mallampati Class: II TM Dist: >3cm Neck ROM: Full Denture: Upper and Lower Loose/Missing/Broken Teeth: Yes, Upper and Lower Heart: RRR Lungs: CTA Assessment and Plan Assessment Anesthesia Assessment: Anesthesia Plan Discussed and Chart Reviewed Final Anesthetic Review Family History of Problems with Anesthesia: No History of Problems with Anesthesia: No NPO: Yes ASA Class: III Final Preanesthetic Review: Meds/Allgs Chart Reviewed, Consent Obtained/Reviewed and Anes Risks/Benef Reviewed Patient Risk: Intermediate Procedure Risk: Intermediate Anesthetic Plan Anesthetic Plan: GA Disposition: Standard PACU
[2024-08-19] MEDS: Lactated Ringers 1,000 ML 100 ML IVCONT (08:30)
--- NOTE | 2024-08-19 08:45 | MHC.SHP ---
Pre-Procedural Eval Section A - 24 Hr Update-Section A only Date of Service: 08/19/24 The patient is an INPATIENT: No Section B - Complete if H&P > 30 days Chief Complaint: depression Details of Present Illness: pt stable tolearates ect well preop anxiety ongoing requires b annette no further n or v no physical complaints no gi sx sob mood stable Relevant Family History (Specify if Yes): No Relevant Social History: None Present Medications: see Short Stay Collaborative assessment History of Previous Operations: No relevant previous surgery Allergies: Allergies Allergy/AdvReac Type Severity Reaction Status Date / Time No Known Allergies Allergy Verified 06/24/24 11:17 [No Known Allergies*] Review of Systems Sugical H&P ROS: Negative: Cardiovascular, Respiratory (no sob), Neurological, Psychiatric and Gastrointestinal (denies gi sx ) Exam Surgical H&P Exam: Normal: Heart (rr), Normal: Lungs (clear ) and Normal: Neurological Exam Comment: preop anxiety 151/92p 125 always gets anxious preop Plan Diagnosis/Plan: Unchanged I have reviewed the history and physical and performed a pertinent physical examination on my patient. No changes have occurred unless specified. Time Spent With Patient Time: Total time managing care of this patient today ____ minutes.
--- NOTE | 2024-08-19 08:48 | HO.ECTPROC ---
ECT Procedure Note Diagnosis/Treatment Date of Service: 08/21/24 Diagnosis: Major Depressive Disorder and Catatonia (hx) Previous ECT Date: 07/01/24 Treatment: Maintenance Interval Clinical Notes: Pts mood stable no medical complaints discussed with hcp consent for tx . Cont maint ect generally well tolerated no breakthrough . bf 0.25 protocal Time: Total time managing care of this patient today ____ minutes. ECT Settings Device: THYMATRON DGx Electrode Placement: Bifrontal Program/Pulse Width: 0.25 Energy Percent: 100 Seizure Duration By EEG (in seconds): 51 Medications Administration General Anesthetic: Etomidate (14) Muscle Relaxant: Succinylcholine (100) Ancillary Medications Cardiovascular Medications: Esmolol (30) Miscillaneous Medications: Midazolam (2 post) Airway Management Airway Management: Bag Mask Ventilation Treatment Recommendations No Changes Recommended: No change Notes: program at 0.25 program informed consent from hcp pt cooperative with tx some post op anxiety Pt Tolerated Procedure w/o Issue: Yes
== END 2024-08-19 10:50 | disposition home or self-care (01) ==
PROVIDERS: Visit Provider Psychiatry & Neurology Psychiatry
PROC: (CPT 90870; principal; 2024-08-19 09:00)
DX: F33.2 Major depressive disorder, recurrent severe without psychotic features (principal); F03.90 Unspecified dementia, unspecified severity, without behavioral disturbance, psychotic disturbance, mood disturbance, and anxiety; I10 Essential (primary) hypertension; E78.5 Hyperlipidemia, unspecified; I47.10 Supraventricular tachycardia, unspecified; D64.9 Anemia, unspecified; K21.9 Gastro-esophageal reflux disease without esophagitis; I26.99 Other pulmonary embolism without acute cor pulmonale; Z87.19 Personal history of other diseases of the digestive system; Z79.01 Long term (current) use of anticoagulants; Z79.899 Other long term (current) drug therapy
CPT/HCPCS: 90870; J0330; J1805; J2250

== ENCOUNTER → 2024-08-19 07:50 | Outpatient (BNV) | payer MEDICARE, OTHER, SELFPAY | PROVIDERS: Visit Provider Psychiatry & Neurology Psychiatry | DX: F33.3 Major depressive disorder, recurrent, severe with psychotic symptoms (principal) | CPT/HCPCS: 90870 ==

== ENCOUNTER 2024-09-23 07:57 | Day surgery (SDC) | payer MEDICARE, OTHER, SELFPAY ==
[2024-09-23] VITALS (7 sets, daily range): BP systolic 125–150; BP diastolic 81–101; PULSE 110–130; RESP 16–22; TEMP 37–37.6; O2SAT 93–95; BMI 22.3
--- NOTE | 2024-09-23 08:34 | HO.ANESPROP2 ---
HPI - Anesthesia Eval Consult details Narrative: 79 yo male patient for ECT PMFSH Active Problems Active Problems: All Active Problems Major depressive disorder, recurrent, severe with psychotic features (Acute) Depression (Acute) Physical deconditioning (Acute) Preoperative cardiovascular examination (Acute) Anemia (Acute) GERD (gastroesophageal reflux disease) (Acute) Past Medical History Medical History COVID-19 vaccine administered History of electroconvulsive therapy Major depressive disorder, recurrent, severe with psychotic features Pulmonary embolism Diverticulitis of colon with perforation Hyperlipidemia HTN (hypertension) Dementia GERD (gastroesophageal reflux disease) Depression SVT (supraventricular tachycardia) Family History Family History Brother Blood clot in vein Other No history of cardiac disorder Family history of problems with anesthesia: No Surgical History Surgical History History of esophagogastroduodenoscopy (EGD) H/O colonoscopy Status post Paula's procedure History of colostomy reversal H/O hernia repair History of Problems with Anesthesia: No Social History Social History Household Members: Other Housing: Assisted Living Facility Are you a primary career center advisor to a significant other at home: No Do you presently have visiting nurse or other home services: No Alcohol intake: former Comment: headache better Patient Tobacco Use Status: Never used Tobacco Second Hand Smoke Exposure: No Advance Directives: No Advance Directives Information Provided: Yes Advance Directives Date on File: 07/27/20 service: Yes Current occupational status: retired Sexual orientation: Straight/Heterosexual Meds Allergies Allergy/AdvReac Type Severity Reaction Status Date / Time No Known Allergies Allergy Verified 06/24/24 11:17 [No Known Allergies*] Active Medications: Current Medications Lactated Ringer's (Lr) 1,000 mls @ 100 mls/hr IVCONT .Q10H ROMMEL Exam Height,Weight and Vital Signs: Height 5 ft 11 in Weight 72.575 kg Vital Signs Temp Pulse Resp BP Pulse Ox O2 Del Method 09/23/24 08:38 98.6 F 130 H 22 H 143/97 H 94 Room Air Airway Mallampati Class: III TM Dist: >3cm Neck ROM: Full Loose/Missing/Broken Teeth: Yes (Top dentures removed. No teeth) Heart: RRR Lungs: CTAB Assessment and Plan Assessment Anesthesia Assessment: Anesthesia Plan Discussed and Chart Reviewed Final Anesthetic Review Family History of Problems with Anesthesia: No History of Problems with Anesthesia: No NPO: Yes ASA Class: III Final Preanesthetic Review: No Changes in Pt Med Stat, Meds/Allgs Chart Reviewed, Consent Obtained/Reviewed and Anes Risks/Benef Reviewed Patient Risk: High Procedure Risk: Intermediate Assessment/Block/Sedation in SS: Assess/Block/Sedation-SS Anesthetic Plan Anesthetic Plan: GA Disposition: Standard PACU
--- NOTE | 2024-09-23 08:43 | MHC.SHP ---
Pre-Procedural Eval Section A - 24 Hr Update-Section A only Date of Service: 09/23/24 Section B - Complete if H&P > 30 days Chief Complaint: depression Details of Present Illness: hx recurrent depression Present Medications: see Short Stay Collaborative assessment Medical History: Significant History History of Previous Operations: Relevant previous surgery/procedure and date(s) (ect for depression catatonia) Allergies: Allergies Allergy/AdvReac Type Severity Reaction Status Date / Time No Known Allergies Allergy Verified 06/24/24 11:17 [No Known Allergies*] Review of Systems Sugical H&P ROS: Negative: Cardiovascular, Respiratory, Neurological and Psychiatric (stable) Exam Surgical H&P Exam: Normal: HEENT, Normal: Heart, Normal: Lungs and Normal: Neurological Exam Comment: elevated pulse per usual has panic on arrival Plan Diagnosis/Plan: Unchanged I have reviewed the history and physical and performed a pertinent physical examination on my patient. No changes have occurred unless specified. Time Spent With Patient Time: Total time managing care of this patient today ____ minutes.
--- NOTE | 2024-09-23 08:56 | HO.ECTPROC ---
ECT Procedure Note Diagnosis/Treatment Date of Service: 09/23/24 Diagnosis: Major Depressive Disorder and Catatonia (hx) Previous ECT Date: 07/01/24 Treatment: Maintenance Interval Clinical Notes: Pts mood stable no medical complaints discussed with hcp consent for tx . Cont maint ect generally well tolerated no breakthrough . bf 0.25 protocol as per previous Time: Total time managing care of this patient today ____ minutes. ECT Settings Device: THYMATRON DGx Electrode Placement: Bifrontal Program/Pulse Width: 0.25 Energy Percent: 100 Seizure Duration By EEG (in seconds): 52 Medications Administration General Anesthetic: Etomidate (16) Muscle Relaxant: Succinylcholine (100) Ancillary Medications Cardiovascular Medications: Esmolol (30) Miscillaneous Medications: Midazolam (2 post) Airway Management Airway Management: Bag Mask Ventilation Treatment Recommendations No Changes Recommended: No change Notes: program at 0.25 program informed consent from hcp pt cooperative with tx some post op fear Pt Tolerated Procedure w/o Issue: Yes
[2024-09-23] MEDS: Lactated Ringers 1,000 ML 100 ML IVCONT (10:12)
== END 2024-09-23 10:25 | disposition home or self-care (01) ==
PROVIDERS: Visit Provider Psychiatry & Neurology Psychiatry
PROC: (CPT 90870; principal; 2024-09-23 09:00)
DX: F33.2 Major depressive disorder, recurrent severe without psychotic features (principal); F03.90 Unspecified dementia, unspecified severity, without behavioral disturbance, psychotic disturbance, mood disturbance, and anxiety; I10 Essential (primary) hypertension; E78.5 Hyperlipidemia, unspecified; I47.10 Supraventricular tachycardia, unspecified; D64.9 Anemia, unspecified; K21.9 Gastro-esophageal reflux disease without esophagitis; I26.99 Other pulmonary embolism without acute cor pulmonale; Z87.19 Personal history of other diseases of the digestive system; Z79.01 Long term (current) use of anticoagulants; Z79.899 Other long term (current) drug therapy
CPT/HCPCS: 90870; J0330; J1805; J2250

== ENCOUNTER → 2024-09-23 07:57 | Outpatient (BNV) | payer MEDICARE, OTHER, SELFPAY | PROVIDERS: Visit Provider Psychiatry & Neurology Psychiatry | DX: F33.2 Major depressive disorder, recurrent severe without psychotic features (principal) | CPT/HCPCS: 90870 ==

== ENCOUNTER 2024-10-28 11:27 | Day surgery (SDC) | payer MEDICARE, OTHER, SELFPAY ==
[2024-10-28 12:02] VITALS: BP 153/93; PULSE 116; RESP 18; TEMP 36.9; O2SAT 94; BMI 25.8
--- NOTE | 2024-10-28 13:14 | MHC.SHP ---
Pre-Procedural Eval Section A - 24 Hr Update-Section A only Date of Service: 10/28/24 Changes since office visit: No Cold of Flu in the past 2 weeks, No New Medical Problems, No Changes in Medication and No Patient answered all questions Section B - Complete if H&P > 30 days Chief Complaint: depression Details of Present Illness: anxious Allergies: Allergies Allergy/AdvReac Type Severity Reaction Status Date / Time No Known Allergies Allergy Verified 06/24/24 11:17 [No Known Allergies*] Review of Systems Sugical H&P ROS: Negative: Constitution, Neurological and Gastrointestinal Exam Surgical H&P Exam: Normal: Heart (RRR), Normal: Lungs (CTA b/l) and Normal: Neurological (cn2-12 grossly intact) Plan Diagnosis/Plan: Unchanged I have reviewed the history and physical and performed a pertinent physical examination on my patient. No changes have occurred unless specified. Time Spent With Patient Time: Total time managing care of this patient today ____ minutes.
--- NOTE | 2024-10-28 13:15 | P.CONAN_ITS ---
HPI - Anesthesia Eval Consult details Narrative: 79 yo male patient for ECT PMFSH Active Problems Active Problems: All Active Problems Major depressive disorder, recurrent, severe with psychotic features (Acute) Depression (Acute) Physical deconditioning (Acute) Preoperative cardiovascular examination (Acute) Anemia (Acute) GERD (gastroesophageal reflux disease) (Acute) Past Medical History Medical History COVID-19 vaccine administered History of electroconvulsive therapy Major depressive disorder, recurrent, severe with psychotic features Pulmonary embolism Diverticulitis of colon with perforation Hyperlipidemia HTN (hypertension) Dementia GERD (gastroesophageal reflux disease) Depression SVT (supraventricular tachycardia) Family History Family History Brother Blood clot in vein Other No history of cardiac disorder Family history of problems with anesthesia: No Surgical History Surgical History History of esophagogastroduodenoscopy (EGD) H/O colonoscopy Status post Paula's procedure History of colostomy reversal H/O hernia repair History of Problems with Anesthesia: No Social History Social History Household Members: Other Housing: Assisted Living Facility Are you a primary pet care attendant to a significant other at home: No Do you presently have visiting nurse or other home services: No Alcohol intake: former Comment: headache better Patient Tobacco Use Status: Never used Tobacco Second Hand Smoke Exposure: No Advance Directives: No Advance Directives Information Provided: Yes Advance Directives Date on File: 07/27/20 service: Yes Current occupational status: retired Sexual orientation: Straight/Heterosexual Meds Allergies Allergy/AdvReac Type Severity Reaction Status Date / Time No Known Allergies Allergy Verified 06/24/24 11:17 [No Known Allergies*] Exam Height,Weight and Vital Signs: Height 5 ft 11 in Weight 83.915 kg Last Vital Signs Temp 98.5 F 10/28/24 12:02 Pulse 116 H 10/28/24 12:02 Resp 18 10/28/24 12:02 BP 153/93 H 10/28/24 12:02 Pulse Ox 94 10/28/24 12:02 O2 Del Method Room Air 10/28/24 12:02 Airway Mallampati Class: III TM Dist: >3cm Neck ROM: Full Denture: Upper Loose/Missing/Broken Teeth: Yes (Top dentures out. No teeth) Heart: RRR Lungs: CTAB Assessment and Plan Assessment Anesthesia Assessment: Anesthesia Plan Discussed and Chart Reviewed Final Anesthetic Review Family History of Problems with Anesthesia: No History of Problems with Anesthesia: No NPO: Yes ASA Class: III Final Preanesthetic Review: No Changes in Pt Med Stat, Meds/Allgs Chart Reviewed, Consent Obtained/Reviewed and Anes Risks/Benef Reviewed Patient Risk: Intermediate Procedure Risk: Intermediate Assessment/Block/Sedation in SS: Assess/Block/Sedation-SS Anesthetic Plan Anesthetic Plan: GA Disposition: Standard PACU
--- NOTE | 2024-10-28 13:25 | HO.ECTPROC ---
ECT Procedure Note Diagnosis/Treatment Date of Service: 10/28/24 Diagnosis: Major Depressive Disorder Previous ECT Date: 09/23/24 Treatment: Maintenance Interval Clinical Notes: no changes to physical health reports anxiety daughter HCP provided ECT consent over phone w/ 2 witnesses including this fiction and nonfiction writer prose Time: Total time managing care of this patient today ____ minutes. ECT Settings Device: THYMATRON DGx Electrode Placement: Bifrontal Program/Pulse Width: 0.50 Energy Percent: 100 Seizure Duration By EEG (in seconds): 24 By Motor Observation (in seconds): 0 Medications Administration General Anesthetic: Etomidate (16) Muscle Relaxant: Succinylcholine (100) Ancillary Medications Cardiovascular Medications: Esmolol (30) Miscillaneous Medications: Midazolam (2mg post) Airway Management Airway Management: Bag Mask Ventilation Treatment Recommendations No Changes Recommended: No change (increase pulse width to 0.5) Electrode Placement: Bifrontal Program/Pulse Width: 0.25 Energy Percent: 100 Notes: minimal seizure consider increasing pulse width to 0.5 Pt Tolerated Procedure w/o Issue: Yes
[2024-10-28 13:41] VITALS: BP 157/95; PULSE 110; RESP 22; TEMP 37.2; O2SAT 99
--- OUTSIDE RECORDS SUMMARY | 2024-10-28 13:43 | XMS_ITS ---
Author Organization [facility] Address [address] [place] [phone] Care Team Providers Care Pharmacy Tech Name Role Phone Salena JAEL Zaida Primary Care Provider Unavailab Jose Alejandro Jones Jr [phone] REASON FOR VISIT Patient presents today for erosive esophagitis Encounters Encounter Location Date Provider Diagnosis [facility] [address] [place] [phone] 07/15/2023 Jose Alejandro White Jr PLAN OF TREATMENT No Information
--- OUTSIDE RECORDS SUMMARY | 2024-10-28 13:43 | XMS_ITS ---
Author Organization [facility] Address [address] [place] [phone] Care Team Providers Care Regulatory Auditor Name Role Phone Loma JAEL Zaida Primary Care Provider UnavailJose Alejandro Mondragon Jr Unavailable ALLERGIES No Known Allergies REASON FOR VISIT Patient presents today for esophagitis MEDICATIONS Medication SIG (Take, Route, Frequency, Duration) Notes Start Date End Date Status Sucralfate 1 GM 1 tablet on an empty stomach Orally Twice a day for 30 day(s) Not-Taking OLANZapine 7.5 MG Oral for 28 Not-Taking Propranolol HCl Not- Taking Albuterol Sulfate HFA Not-Taking Hydrocortisone 1 % 1 application Externally Once a day as needed fir hemorrhoids 06/22/2023 Active Finasteride 5 MG Oral for 28 A ctive Nortriptyline HCl 25 MG Oral for 28 Active Benzonatate Active Tylenol 325 MG 1 tablet as needed Orally every 4 hrs Not-Taking Atorvastatin Calcium 40 MG Oral for 28 Active oxyBUTYnin Chloride 5 MG Oral for 28 Active Colace 100 MG 1 capsule as needed Orally Once a day for 30 day(s) Active Omeprazole 20 MG 1 capsule 30 minutes before morning meal Orally Once a day for 30 day(s) discontinue omeprazole b.i.d. dosing 01/09/2021 Active Omeprazole 40 MG Oral for 28 A ctive Eliquis 5 MG Oral for 28 Activ e MiraLax 17 GM/SCOOP as directed Orally Active Vitamin D3 Active Melatonin 3 MG 1 tablet at bedtime as needed Orally Once a day for 30 day(s) Active Senna 8.6 MG 2 tablets at bedtime as needed Orally Once a day for 30 day(s) Active Ferrous Sulfate 325 (65 Fe) MG 1 tablet Orally Once a day for 30 day(s) Active SOCIAL HISTORY Tobacco Use: Social History Observation Description Date Details (start date - stop date) Never Smoker NA - NA Sex Assigned At : Social History Observation Description Sex Assigned At Unknown Tobacco Use/Smoking Question Answer Notes Patient is a nonsmoker Alcohol Screen Question Answer Notes Did you have a drink containing alcohol in the p ast year? No Points 0 Interpretation Negative PROBLEMS Problem Type ICD Code Onset Dates Problem Status W/U Status Risk SNOMED Code Notes Problem Hemorrhoids with complication (K64.8) Active confirmed 23161024 VITAL SIGNS BMI 25.80 kg/m2 06/22/2023 Blood pressure systolic 000 mm Hg 06/22/20 23 Blood pressure diastolic 00 mm Hg 023 Height 71 in 06/22/2023 Temperature 97.7 degrees Fahrenheit 06/22/20 23 Weight 185 lbs 06/22/2023 Encounters Encounter Location Date Provider Diagnosis [facility] [address] [place] [phone] 06/22/2023 Jose Alejandro White Jr Gastroesophageal reflux disease with esophagitis, unspecified whether hemorrhage K21.00 and Hemorrhoids with complication K64.8 ASSESSMENTS Encounter Date Diagnosis Assessment Notes Treatment Notes Treatment Clinical Notes 06/22/2023 Gastroesophageal reflux disease with esophagitis, unspecified whether hemorrhage (ICD-10 - K21.00) Gastroesophageal reflux disease material was printed 06/22/2023 Hemorrhoids with complication (ICD-10 - K64.8) PLAN OF TREATMENT Medication Medication Name Sig Start Date Stop Date Notes Hydrocortisone 1 % 1 application Pin Sticker ally Once a day as needed fir hemorrhoids 06/22/2023 Treatment Notes Assessment Notes Gastroesophageal reflux dise ase with esophagitis, unspecified whether hemorrhage Gastroesophageal reflux disease material was printed Next Appt Details Follow Up: 1 Year, Reason:
--- OUTSIDE RECORDS SUMMARY | 2024-10-28 13:43 | XMS_ITS ---
Author Organization [facility] Address [address] [place] [phone] Care Team Providers Care Defense Attorney Name Role Phone Salena JAEL Zaida Primary Care Provider Unavailab Jose Alejandro Jones Jr REASON FOR VISIT ov recall Encounters Encounter Location Date Provider Diagnosis [facility] [address] [place] [phone] 06/22/2023 Jose Alejandro White Jr PLAN OF TREATMENT No Information
--- OUTSIDE RECORDS SUMMARY | 2024-10-28 13:44 | XMS_ITS | Patient Health Record ---
Author Organization [facility] Address [address] [place] [phone] Care Team Providers Care Casino Gaming Inspector Name Role Phone Zaida Nova Primary Care Provider Jose Alejandro Macedo Jr Unavailable ALLERGIES No Known Allergies REASON FOR REFERRAL No Information MEDICATIONS Medication SIG (Take, Route, Frequency, Duration) Notes Start Date End Date Status oxyBUTYnin Chloride 5 MG Oral for 28 Active MiraLax 17 GM/SCOOP as directed Orally Active Sucralfate 1 GM 1 tablet on an empty stomach Orally Twice a day for 30 day(s) Not-Taking Colace 100 MG 1 capsule as needed Orally Once a day for 30 day(s) Active OLANZapine 7.5 MG Oral for 28 Not-Taking Omeprazole 20 MG 1 capsule 30 minutes before morning meal Orally Once a day for 30 day(s) discontinue omeprazole b.i.d. dosing 01/09/2021 Active Propranolol HCl Not- Taking Omeprazole 40 MG Oral for 28 A ctive Albuterol Sulfate HFA Not-Taking Vitamin D3 Active Finasteride 5 MG Oral for 28 A ctive Hydrocortisone 1 % 1 application Externally Once a day as needed fir hemorrhoids 06/22/2023 Active Melatonin 3 MG 1 tablet at bedtime as needed Orally Once a day for 30 day(s) Active Nortriptyline HCl 25 MG Oral for 28 Active Senna 8.6 MG 2 tablets at bedtime as needed Orally Once a day for 30 day(s) Active Benzonatate Active Ferrous Sulfate 325 (65 Fe) MG 1 tablet Orally Once a day for 30 day(s) Active Tylenol 325 MG 1 tablet as needed Orally every 4 hrs Not-Taking Eliquis 5 MG Oral for 28 Activ e Atorvastatin Calcium 40 MG Oral for 28 Active IMMUNIZATIONS Vaccine Route Administration Date Status Comme nts Influenza Unknown 06/05/2021 Administered Influenza Unknown 06/24/2022 Administered SOCIAL HISTORY Tobacco Use: Social History Observation [...] W/U Status Risk SNOMED Code Notes Problem Iron deficiency anemia, unspecified iron deficiency anemia type (D50.9) Active confirmed 78776922 Problem Gastroesophageal reflux disease with esophagitis, unspecified whether hemorrhage (K21.00) Active confirmed 738228643 Problem Erosive esophagitis (K22.10) Active confirmed 36092410 Problem Diarrhea, unspecified type (R19.7) Active confirmed 06992056 Problem Hemorrhoids with complication (K64.8) Active confirmed [id number] PLAN OF TREATMENT No Information Insurance Providers Payer Name Payer Address Payer Phone Subscriber Number Group Number Insured Name Patient Relationship to Insured Coverage Start Date Coverage End Date MEDICARE OF [place] [address] [place] [address] [id number] [employer] Self - patient is the insured [facility] [address] [place] [address] [id number] [employer] Self - patient is the insured MEDICAL (GENERAL) HISTORY Medical History History ICD Code depression anxiety Hypertension Hyperlipidemia Pulmonary embolism SVT Erosive esophagitis, EGD 12/05/20, no Martinez ett's esophagus Colonoscopy 10/23/20 for iron deficiency anemia, 3 tubular adenomas, patent sigmoid anastomosis. Surgical History Surgery Date(Month/Year) Perforated diverticulitis, H artman procedure, followed by colostomy takedown and reanastomosis 04/22
[2024-10-28 13:46] VITALS: BP 119/86; PULSE 103; RESP 22; O2SAT 96
[2024-10-28 13:51] VITALS: BP 124/74; PULSE 102; RESP 20; O2SAT 96
[2024-10-28 13:56] VITALS: BP 120/84; PULSE 102; RESP 20; O2SAT 94
[2024-10-28 14:11] VITALS: BP 115/81; PULSE 101; RESP 20; TEMP 37.2; O2SAT 94
== END 2024-10-28 14:43 | disposition home or self-care (01) ==
PROVIDERS: Visit Provider Psychiatry & Neurology Psychiatry
PROC: (CPT 90870; principal; 2024-10-28 13:00)
DX: F33.2 Major depressive disorder, recurrent severe without psychotic features (principal); F03.90 Unspecified dementia, unspecified severity, without behavioral disturbance, psychotic disturbance, mood disturbance, and anxiety; I10 Essential (primary) hypertension; E78.5 Hyperlipidemia, unspecified; D64.9 Anemia, unspecified; K21.9 Gastro-esophageal reflux disease without esophagitis; I26.99 Other pulmonary embolism without acute cor pulmonale; Z87.19 Personal history of other diseases of the digestive system; Z79.01 Long term (current) use of anticoagulants; Z79.899 Other long term (current) drug therapy
CPT/HCPCS: 90870; J0330; J1805; J2250

== ENCOUNTER → 2024-10-28 11:27 | Outpatient (BNV) | payer MEDICARE, OTHER, SELFPAY | PROVIDERS: Visit Provider Psychiatry & Neurology Psychiatry | DX: F33.3 Major depressive disorder, recurrent, severe with psychotic symptoms (principal) | CPT/HCPCS: 90870 ==

== ENCOUNTER 2024-11-07 18:45 | Emergency (ER) | payer MEDICARE, OTHER, SELFPAY ==
[2024-11-07 18:55] VITALS: BP 115/92; PULSE 115; O2SAT 94; BMI 29.7
[2024-11-07 19:00] VITALS: BP 132/86; PULSE 105; RESP 16; TEMP 36.5; O2SAT 92
[2024-11-07 19:22] LABS: MANUAL DIFF FLAG NO
[2024-11-07 19:25] LABS: Basophils Percent Auto 0.4 % (0-2); Eosinophils Absolute Auto 0.1 X10*3/uL (0.0-0.4); Eosinophils Percent Auto 1.3 % (0-4); Hematocrit 36.2 % (42.0-52.0); Hemoglobin 12.9 g/dl (14.0-18.0); Imm Gran Abs Auto 0.01 X10*3/uL (0.00-0.03); Imm Gran Pct Auto 0.2 % (0.0-0.4); Lymphocytes Percent Auto 18.4 % (20-40); Mean Corpuscular HGB Conc 35.6 g/dl (31.0-36.0); Mean Corpuscular Hemoglobin 34.2 pg (27.0-33.0); Mean Platelet Volume 8.4 fL (9.4-12.4); Monocytes Absolute Auto 0.7 X10*3/uL (0.1-1.2); Monocytes Percent Auto 12.5 % (2-11); Neutrophils Absolute Auto 3.5 x10*3/uL (2.0-8.3); Neutrophils Percent Auto 67.2 % (45-73); Platelet Count 183 X10*3/uL (160-400); Red Blood Count 3.77 X10*6/uL (4.60-5.80); Red Cell Distribution Width 13.4 % (11.0-16.0); White Blood Count 5.2 X10*3/uL (4.8-10.8)
--- NOTE | 2024-11-07 19:26 | ED_ITS ---
HPI - Anxiety General Chief Complaint: Anxiety Stated Complaint: From assisted living, anxiety attacks x3 days Time Seen by Provider: 11/07/24 18:56 Source: patient and EMS Mode of arrival: EMS Limitations: no limitations History of Present Illness ED Provider: Yadira Clancy NP HPI narrative: Patient is an 79-year-old male past medical history of major depressive disorder, anemia, GERD, vertigo prostate cancer, hyperlipidemia, pulmonary embolism chronically anticoagulated on Eliquis who presents emergency department via EMS for evaluation. He is coming from [facility] living [facility] with reports of increasing anxiety and inability to cope well over the past 3 days. He feels that he is losing control were things in his life which is causing great stress for him. States he feels like he is having panic attacks summary gets severely anxious and nothing seems to help and he feels panicked by this. However at the time of my evaluation he is sitting on the stretcher comfortably, he states he is not feeling anxious or panicked at this moment. He expresses that he has received multiple ECT treatments in the past , when asked whether they are help perform he states, I am not quite sure but they seem to think so , most recent ECT 10/28/2024. He denies having homicidal or suicidal ideations. He offers no physical complaints at this time. Related Data Previous Rx's ?Medication ?Instructions ?Recorded apixaban 5 mg tablet (Eliquis) 5 mg PO BID #60 tabs 09/20/21 atorvastatin 40 mg tablet 1 tab PO BEDTIME 30 days #30 tabs 09/20/21 benzonatate 100 mg capsule 100 mg PO TID PRN cough 30 days 09/20/21 #60 caps cholecalciferol (vitamin D3) 10 10 mcg PO DAILY 30 days #30 tabs 09/20/21 mcg (400 unit) tablet (Vitamin D3) docusate sodium 100 mg capsule 100 mg PO BID 60 days #120 caps 09/20/21 (Colace) erythromycin 5 mg/gram (0.5 %) eye 1 cm ophthalmic (eye) BID 30 days 09/20/21 ointment #1 g ferrous sulfate 325 mg (65 mg 325 mg PO DAILY 30 days #30 tabs 09/20/21 iron) tablet finasteride 5 mg tablet 1 tab PO DAILY 30 days #30 tabs 09/20/21 melatonin 3 mg tablet 6 mg (2 x 3 mg) PO BEDTIME 30 days 09/20/21 #60 tabs nortriptyline 25 mg capsule 75 mg (3 x 25 mg) PO BEDTIME 30 09/20/21 days #90 caps olanzapine 7.5 mg tablet 7.5 mg PO BEDTIME 30 days #30 tabs 09/20/21 omeprazole 20 mg capsule,delayed 20 mg PO DAILY@0630 30 days #30 09/20/21 release caps oxybutynin chloride 5 mg tablet 5 mg PO DAILY 30 days #30 tabs 09/20/21 sennosides 8.6 mg tablet (Senna 8.6 mg PO BEDTIME 30 days #30 tabs 09/20/21 Lax) Allergies Allergy/AdvReac Type Severity Reaction Status Date / Time No Known Allergies Allergy Verified 11/07/24 18:56 [No Known Allergies*] Review of Systems 2 Review of Systems: Yes all other systems are reviewed and are negative PMFSH Past Medical History Attestation statement: The following information was validated with the patient. Source: old records reviewed Medical History COVID-19 vaccine administered History of electroconvulsive therapy Major depressive disorder, recurrent, severe with psychotic features Pulmonary embolism Diverticulitis of colon with perforation Hyperlipidemia HTN (hypertension) Dementia GERD (gastroesophageal reflux disease) Depression SVT (supraventricular tachycardia) Surgical History History of esophagogastroduodenoscopy (EGD) H/O colonoscopy Status post Paula's procedure History of colostomy reversal H/O hernia repair Family History Family History Brother Blood clot in vein Other No history of cardiac disorder Social History Social History Household Members: Other Housing: Assisted Living Facility Are you a primary manager home healthcare to a significant other at home: No Do you presently have visiting nurse or other home services: No Alcohol intake: former Comment: headache better Patient Tobacco Use Status: Never used Tobacco Smoked in Last 30 Days: No Second Hand Smoke Exposure: No Use of substances other than those prescribed or required for medical reasons: No Advance Directives: Yes Advance Directives on File: Yes Advance Directives Date on File: 06/22/23 Do you have a plan to hurt others: No Plan service: Yes Current occupational status: retired Sexual orientation: Straight/Heterosexual Physical Exam 2 Vital Signs: Vital Signs: Last Vital Signs Temp 97.7 F 11/07/24 19:00 Pulse 105 H 11/07/24 19:00 Resp 16 11/07/24 19:00 BP 132/86 11/07/24 19:00 Pulse Ox 92 11/07/24 19:00 O2 Del Method Room Air 11/07/24 19:00 BMI result Body Mass Index 29.7 Appearance: Alert.?Oriented to person, place and time. No acute distress.?Normal affect. Eyes: Pupils equal, round and reactive to light.? ENT: Pharynx normal.?? Neck: Normal inspection.? Neck supple.?? CVS: Heart sounds normal. Normal heart rate and rhythm.? Pulses normal.?? Respiratory: No respiratory distress.? Lung sounds clear to auscultation bilaterally?? Abdomen: Soft and non-tender. Normoactive bowel sounds. ? Skin: Skin warm and dry.? Normal skin color.? ?? Extremities: No lower extremity edema.? Neuro: Moves all extremities spontaneously. Sensation intact bilaterally. CN II- XII intact. No focal neuro deficits. Ambulates with normal steady gait. Course Reevaluation(s) Reevaluation #1: Patient's sister called, spoke with nursing staff, patient has been having stress and anxiety surrounding her having to bring him to a couple of upcoming appointments this week that typically the assisted living facility would facilitate but unfortunately they do not have services available. Does not want to be a burden on his sister. Sister reports that otherwise she has not noted him to have significant anxiety or panic attacks. Patient did expressed my concerns about upcoming appointment so he did not really directly that he was concerned about the burden this would place on his sister. Care team did evaluate patient, he does not meet criteria for inpatient level of care. He is calm and cooperative. I feel he would most benefit from follow-up with Dr. Sims, and if felt necessary, they may consider whether they want to add an anxiolytic to his treatment regimen. Physician observation ending at this time he will be discharged back to assisted living facility. Time: 22:33 Medical Decision Making Medical Decision Making MDM Narrative: Patient is an 79-year-old male past medical history of major depressive disorder, anemia, GERD, vertigo prostate cancer, hyperlipidemia, pulmonary embolism chronically anticoagulated on Eliquis who presents emergency department for evaluation of increasing anxiety and reported panic attacks in his assisted living facility as per HPI. He has some cooperative at the time my evaluation, he denies anxiety at this time. Expresses significant search concern about his inability to cope with his anxiety and panic attacks at his assisted living facility. He states ?they just give me Tylenol without help?. Will obtain serum labs for medical clearance and refer to care team for further evaluation. No physical complaints at this time, his physical examination is benign. Differential Diagnosis Differential Diagnoses: The differential diagnosis associated with the presentation includes (Depression, anxiety, panic disorder) Admission/Observation Consideration of admission/observation: Escalation of care including admission/observation considered Patient is being observed in the Emergency Department for depression and anxiety. Observation time was started at 19:44 on 11/07/2024.?The patient is currently stable and non-toxic appearing. Observation is being initiated in the Emergency Department to allow time to help differentiate if the patient's depression and anxiety is due to Substance Induced Mood Disorder and Anxiety versus Major Depressive Disorder, Bipolar Miesha, Bipolar Depression, and Schizophrenia. The patient will receive frequent psychiatric assessments from the provider as well as from nursing staff. The patient will also be monitored for the need of PRN agitation medications such as Haldol, Ativan, and Benadryl. Consult Healthcare Provider Management of the patient was discussed with: Behavioral Health Provider Lab Data [facility] Lab Attestation statement: I reviewed the patient's lab results. 11/07/24 19:17 11/07/24 19:17 Labs: Lab Results 11/07/24 11/07/24 Range/Units 19:17 19:48 WBC 5.2 (4.8-10.8) X10*3/uL RBC 3.77 L (4.60-5.80) X10*6/uL Hgb 12.9 L (14.0-18.0) g/dl Hct 36.2 L (42.0-52.0) % MCV 96.0 (80.0-98.0) fL MCH 34.2 H (27.0-33.0) pg MCHC 35.6 (31.0-36.0) g/dl RDW 13.4 (11.0-16.0) % Plt Count 183 (160-400) X10*3/uL MPV 8.4 L (9.4-12.4) fL Immature Gran % (Auto) 0.2 (0.0-0.4) % Neut % (Auto) 67.2 (45-73) % Lymph % (Auto) 18.4 L (20-40) % [place] % (Auto) 12.5 H (2-11) % Eos % (Auto) 1.3 (0-4) % Baso % (Auto) 0.4 (0-2) % Lymph # (Auto) 1.0 L (1.2-4.9) X10*3/uL [place] # (Auto) 0.7 (0.1-1.2) X10*3/uL Eos # (Auto) 0.1 (0.0-0.4) X10*3/uL Baso # (Auto) 0.0 (0.0-0.2) X10*3/uL Abs Immat Gran (auto) 0.01 (0.00-0.03) X10*3/uL Absolute Neuts (auto) 3.5 (2.0-8.3) x10*3/uL Absolute Nucleated RBC 0.000 (0.0-0.012) X10*3/uL Nucleated RBC % (auto) 0.0 (0.0-0.2) /100WBC Sodium 139 (135-145) mmol/L Potassium 3.6 (3.3-5.1) mmol/L Chloride 111 H (96-108) mmol/L Carbon Dioxide 19 L (22-29) mmol/L Anion Gap 13 (12-20) BUN 24 H (9-16) mg/dL Creatinine 1.07 (0.5-1.4) mg/dL Estim Creat Clear Calc 66.1 Estimated GFR > 60 Random Glucose 190 H (60-115) mg/dL Calcium 8.9 (8.4-10.2) mg/dL Total Bilirubin 0.6 (0.0-1.0) mg/dL AST 32 (5-37) U/L ALT 26 (0-40) U/L Alkaline Phosphatase 117 (39-117) U/L Total Protein 7.1 (6.5-8.0) g/dL Albumin 4.1 (3.5-5.0) g/dL Urine Color Yellow Urine Appearance Clear Urine pH 5.5 (5.0-9.0) Ur Specific [place] 1.025 (1.005-1.025) Urine Protein Negative (Neg-Trace) mg/dL Urine Glucose (UA) Negative (Negative) mg/dL Urine Ketones Negative (Negative) mg/dL Urine Blood Negative (Negative) Urine Nitrite Negative (Negative) Ur Leukocyte Esterase Negative (Negative) Urine Opiates Screen Not Detected (Not Detect) Ur Buprenorphine Scrn Not Detected (Not Detect) ng/mL Ur Oxycodone Screen Not Detected (Not Detect) ng/mL Urine Methadone Screen Not Detected (Not Detect) ng/mL Urine Fentanyl Screen Not Detected (Not Detect) Ur Barbiturates Screen Not Detected (Not Detect) Ur Phencyclidine Scrn Not Detected (Not Detect) Ur Amphetamines Screen Not Detected (Not Detect) U Benzodiazepines Scrn Not Detected (Not Detect) Urine Cocaine Screen Not Detected (Not Detect) U Marijuana (THC) Screen Not Detected (Not Detect) Ethyl Alcohol < 10 mg/dL Independent Historian Clinical information obtained from an independent historian. History obtained from or confirmed by: EMS External Record Review External record reviewed: Outpatient record Chronic Conditions Patient?s care impacted by: Other (See narrative above) Discharge Plan Discharge Clinical Impression: Anxiety Patient Disposition: Home, Self-Care Instructions: Anxiety (ED) Additional Instructions: Follow-up with Dr. Sims regarding further management of anxiety and anxiety medications as necessary. Return to emergency department any new or worsening symptoms or concerns Prescriptions: No Action sennosides [Senna Lax] 8.6 mg Tablet 8.6 mg PO BEDTIME 30 Days Qty: 30 0RF melatonin 3 mg Tablet 6 mg PO BEDTIME 30 Days Qty: 60 0RF olanzapine 7.5 mg Tablet 7.5 mg PO BEDTIME 30 Days Qty: 30 0RF nortriptyline 25 mg Capsule 75 mg PO BEDTIME 30 Days Qty: 90 0RF benzonatate 100 mg Capsule 100 mg PO TID PRN (Reason: cough) 30 Days Qty: 60 0RF erythromycin 5 mg/gram (0.5 %) Ointment 1 cm ophthalmic (eye) BID 30 Days Qty: 1 0RF omeprazole 20 mg Capsule,Delayed Release(Dr/Ec) 20 mg PO DAILY@0630 30 Days Qty: 30 0RF cholecalciferol (vitamin D3) [Vitamin D3] 10 mcg (400 unit) Tablet 10 mcg PO DAILY 30 Days Qty: 30 0RF atorvastatin 40 mg tablet 1 tab PO BEDTIME 30 Days Qty: 30 0RF ferrous sulfate 325 mg (65 mg iron) Tablet 325 mg PO DAILY 30 Days Qty: 30 0RF docusate sodium [Colace] 100 mg Capsule 100 mg PO BID 60 Days Qty: 120 0RF oxybutynin chloride 5 mg tablet 5 mg PO DAILY 30 Days Qty: 30 0RF finasteride 5 mg tablet 1 tab PO DAILY 30 Days Qty: 30 0RF Eliquis 5 mg tablet 5 mg PO BID Qty: 60 0RF Rx Instructions: To start on 09/26. Referrals: Myron Muhammad, [employer] [Primary Care Provider] - Print Language: Montenegrin
[2024-11-07 19:36] LABS: Ethanol < 10 mg/dL
[2024-11-07 19:38] LABS: Alanine Aminotransferase 26 U/L (0-40); Albumin Level 4.1 g/dL (3.5-5.0); Alkaline Phosphatase 117 U/L (39-117); Anion Gap 13 (12-20); Aspartate Amino Transferase 32 U/L (5-37); Bilirubin Total 0.6 mg/dL (0.0-1.0); Blood Urea Nitrogen 24 mg/dL (9-16); Calcium 8.9 mg/dL (8.4-10.2); Carbon Dioxide 19 mmol/L (22-29); Chloride 111 mmol/L (96-108); Creatinine Clr Calc Pharmacy 66.1; Estimated Glomerular Filt Rate > 60; Glucose Random 190 mg/dL (60-115); Potassium 3.6 mmol/L (3.3-5.1); Sodium 139 mmol/L (135-145); Total Protein 7.1 g/dL (6.5-8.0)
[2024-11-07 20:09] LABS: Appearance Urine Clear; Color Urine Yellow; Glucose Urine UA Negative (Negative); Leukocyte Esterase Urine Negative (Negative); Nitrite Urine Negative (Negative); PH 5.5 (5.0-9.0); Specific Gravity - Urine 1.025 (1.005-1.025); Urine Blood Negative (Negative); Urine Ketones Negative (Negative); Urine Protein Negative (Neg-Trace)
[2024-11-07 20:21] LABS: Amphetamine Screen Urine Not Detected (Not Detect); Barbiturates, Urine Not Detected (Not Detect); Benzodiazepines Screen Urine Not Detected (Not Detect); Buprenorphine Scr Not Detected (Not Detect); Cannabinoid Screen Urine Not Detected (Not Detect); Cocaine Screen Urine Not Detected (Not Detect); Fentanyl, urine Not Detected (Not Detect); Methadone Screen, Urine Not Detected (Not Detect); Opiate Screen Urine Not Detected (Not Detect); Oxycodone Screen Urine Not Detected (Not Detect); Phencyclidine Screen Urine Not Detected (Not Detect)
--- NOTE | 2024-11-07 20:45 | PC.NURSE ---
with permission of pt, update given to Keisha (sister in law). sister states pt anxiety has been increased d/t 3 factors; needing his sister to take him to an eye exam and haircut thursday instead of [facility] staff and feeling burden on her, as well as tv at home does not work some days. sister said they're working on it. pt has been calm/cooperative, denies anxious sx since arrival. pt awaiting crisis consult, changed into hospital attire and belongings locked up by PCT. pt watching tv in room, call [facility]er within reach.
--- NOTE | 2024-11-07 21:00 | PC.NURSE ---
CARE team staff member at bedside speaking with patient.
--- NOTE | 2024-11-07 22:57 | PC.NURSE ---
[facility] staff will be at facility upon pt return.
[2024-11-07 23:27] VITALS: BP 128/82; PULSE 95; RESP 16; TEMP 36.5; O2SAT 94
== END 2024-11-07 23:28 | disposition home or self-care (01) ==
PROVIDERS: Nurse Practitioner Family; Emergency Provider Emergency Medicine Emergency Medical Services; PCP Registered Nurse
DX: F41.9 Anxiety disorder, unspecified (principal); F43.9 Reaction to severe stress, unspecified; Z86.711 Personal history of pulmonary embolism; Z79.01 Long term (current) use of anticoagulants; Z51.81 Encounter for therapeutic drug level monitoring; Z79.899 Other long term (current) drug therapy
CPT/HCPCS: 36415; 80053; 80307; 81003; 85025; 99284; S9485

== ENCOUNTER 2024-11-14 09:41 | Inpatient (IN) | payer MEDICARE, OTHER, SELFPAY ==
--- NOTE | ~2024-11-14 | FL_ITS ---
EXAMINATION: XR FLUOROSCOPY UPPER GI WITH AIR CLINICAL INFORMATION: Dysphagia COMPARISON: Barium swallow 2020 TECHNIQUE: Fluoroscopic air contrast upper GI examination was performed utilizing standard techniques with thin and thick barium and effervescent granules. Numerous spot images were obtained. FINDINGS: Lateral cine images of the oropharynx and hypopharynx demonstrate normal swallow mechanism with normal epiglottic inversion and soft palate elevation. No tracheal penetration, glottic or subglottic aspiration identified. No nasopharyngeal reflux present. Hypopharyngeal structures appear normal without evidence of mass or diverticulum. There was no significant cricopharyngeal achalasia. Dual and single contrast images of the esophagus demonstrate a very dilated esophagus. The esophageal mucosa has a granular appearance suggestive of esophagitis. There are a few focal areas of contrast pooling in the mid esophageal that may represent small mucosal erosions. There is a large well-circumscribed mixed density in the distal esophagus above the GE junction that likely represents retained food. Esophageal peristalsis is moderately disorganized. There is moderate narrowing of the GE junction that likely represents achalasia or a benign stricture. A large type 4 paraesophageal hernia is present, with the majority the fundus located within the thoracic cavity. No significant gastroesophageal reflux was seen during the course of the examination and on reflux views. Dual contrast and single contrast images of the stomach demonstrate organoaxial rotation of the stomach without evidence of obstruction. The gastric rugal folds have a thickened appearance, suggestive of gastritis. No masses or ulcerations are seen. Contrast freely passed into the gastric antrum and duodenal bulb without delay. Single and air-contrast images of the duodenal bulb demonstrate no abnormality. The duodenal folds have a thickened appearance, suggestive of enteritis. FLUOROSCOPY TIME: 4 minutes 40 seconds Number of Spot Images: 12 Number of Cine: 12 DOSE AREA PRODUCT: 2599 uGy-m2 (microgray-meter squared) FL/FL barium swallow IMPRESSION: 1. Patulous esophagus with moderately disorganized peristalsis consistent with esophageal dysmotility. 2. Granular appearance of the esophageal mucosa. In addition there are multiple areas of contrast pooling in the mid esophagus. These findings are suggestive of erosive esophagitis. Mild correlation with EGD. 3. Regular mobile filling defects located in the distal esophagus above the GE junction that likely represent retained food. 4. Moderate narrowing of the GE junction that represents achalasia or a benign stricture. 5. Large type IV paraesophageal hernia, with the majority the fundus located within the thoracic cavity. This has increased since prior study in 2020. 6. 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 7. Thickened appearance of the gastric rugal folds, suggestive of gastritis. 8. Thickened appearance of the duodenal folds, suggestive of duodenitis. This procedure was performed by Zack Padgett PA-C, and supervised by Dr. Schwab Electronically signed by: Donaldo Schwab MD 11/25/2024 08:08 [facility]
--- NOTE | ~2024-11-14 | CT_ITS ---
CLINICAL HISTORY: fall, head injury CT head without contrast Comparison: 10/07/2020 Findings: No intracranial mass, midline shift, hydrocephalus, or acute hemorrhage. Mild chronic ischemic white matter disease with volume loss. No acute process in sinuses or mastoids. No acute bony abnormality. Impression: No acute intracranial process This document has been electronically signed by: Dorian Montes MD on 11/26/2024 19:36:48
[2024-11-14 10:13] VITALS: BP 142/72; BP 154/90; PULSE 107; PULSE 120; RESP 16; TEMP 36.4; O2SAT 94; O2SAT 95; BMI 25.8
--- NOTE | 2024-11-14 10:17 | PC.NURSE ---
Pt reports no relief of chronic anxiety with new medication; denies SO/HI at this time; denies any physical complaints; A+O3
--- NOTE | 2024-11-14 10:40 | ED.ANXIETY ---
HPI - Anxiety General Chief Complaint: Anxiety Stated Complaint: INCR ANX AFTER MED CHANGE,FROM [facility] PER EMS Time Seen by Provider: 11/14/24 10:16 Source: patient Mode of arrival: ambulatory Limitations: no limitations History of Present Illness ED Provider: ROD ALTMAN PA-C HPI narrative: 79 year old male with pmhx significant for MDD with psychotic features, GERD, vertigo prostate cancer, hyperlipidemia, pulmonary embolism chronically anticoagulated on Eliquis presents to the ED today from [facility] via EMS for evaluation of increased anxiety/ panic attacks over the last 2-3 days. He states he is having difficulty coping with his anxiety. He reports decreased sleep and PO intake due to this. He states that he is too much for his current assisted living facility to handle and believes he may need to live in a different facility that can better manage his conditions. He is alert and oriented. He mentioned to RN that symptoms worsened after a recent medication change however on my questioning, he cannot recall what medication was changed or who changed it. Reports taking all home medications as prescribed. He denies any physical complaints at present. Denies fevers, chills, chest pain/ palpitations, SOB, urinary sx. Denies illicit substance use. Denies ETOH consumption. Denies AH/VH/TH. Denies SI/HI. Related Data Previous Rx's ?Medication ?Instructions ?Recorded apixaban 5 mg tablet (Eliquis) 5 mg PO BID #60 tabs 09/20/21 atorvastatin 40 mg tablet 1 tab PO BEDTIME 30 days #30 tabs 09/20/21 benzonatate 100 mg capsule 100 mg PO TID PRN cough 30 days 09/20/21 #60 caps cholecalciferol (vitamin D3) 10 10 mcg PO DAILY 30 days #30 tabs 09/20/21 mcg (400 unit) tablet (Vitamin D3) docusate sodium 100 mg capsule 100 mg PO BID 60 days #120 caps 09/20/21 (Colace) erythromycin 5 mg/gram (0.5 %) eye 1 cm ophthalmic (eye) BID 30 days 09/20/21 ointment #1 g ferrous sulfate 325 mg (65 mg 325 mg PO DAILY 30 days #30 tabs 09/20/21 iron) tablet finasteride 5 mg tablet 1 tab PO DAILY 30 days #30 tabs 09/20/21 melatonin 3 mg tablet 6 mg (2 x 3 mg) PO BEDTIME 30 days 09/20/21 #60 tabs nortriptyline 25 mg capsule 75 mg (3 x 25 mg) PO BEDTIME 30 09/20/21 days #90 caps olanzapine 7.5 mg tablet 7.5 mg PO BEDTIME 30 days #30 tabs 09/20/21 omeprazole 20 mg capsule,delayed 20 mg PO DAILY@0630 30 days #30 09/20/21 release caps oxybutynin chloride 5 mg tablet 5 mg PO DAILY 30 days #30 tabs 09/20/21 sennosides 8.6 mg tablet (Senna 8.6 mg PO BEDTIME 30 days #30 tabs 09/20/21 Lax) Allergies Allergy/AdvReac Type Severity Reaction Status Date / Time No Known Allergies Allergy Verified 11/14/24 10:15 [No Known Allergies*] Review of Systems Review of Systems: Constitutional: No fever, chills, fatigue, night sweats, weight changes ENT/Mouth: No ear pain, hearing loss, nasal congestion, sinus pain, rhinorrhea, sore throat Eyes: No eye pain, swelling, redness, vision changes, discharge Cardio: No chest pain, palpitations, RIVAS, orthopnea, peripheral edema Pulm: No SOB, cough, sputum, wheezing, dyspnea, hemoptysis GI: No nausea, vomiting, hematemesis, abdominal pain, diarrhea, constipation, hematochezia, melena : No irregular bleeding, dysuria, frequency, urgency, hesitancy, hematuria, flank pain, urinary flow changes, urinary incontinence or retention MSK: No back pain, neck pain, joint pain, myalgias Skin: No lesions, rashes Neuro: No weakness, numbness, paresthesias, LOC, dizziness, headache Psych: No depression, SI/HI, AH/VH, +anxiety All other systems reviewed and are negative. [facility], LAT[facility] Past Medical History Attestation statement: The following information was validated with the patient. Source: old records reviewed and nursing notes reviewed Medical History COVID-19 vaccine administered History of electroconvulsive therapy Major depressive disorder, recurrent, severe with psychotic features Pulmonary embolism Diverticulitis of colon with perforation Hyperlipidemia HTN (hypertension) Dementia GERD (gastroesophageal reflux disease) Depression SVT (supraventricular tachycardia) Surgical History History of esophagogastroduodenoscopy (EGD) H/O colonoscopy Status post Paula's procedure History of colostomy reversal H/O hernia repair Family History Family History Brother Blood clot in vein Other No history of cardiac disorder Social History Social History Household Members: Other Housing: Assisted Living Facility Are you a primary child care associate teacher to a significant other at home: No Do you presently have visiting nurse or other home services: No Alcohol intake: former Comment: headache better Patient Tobacco Use Status: Never used Tobacco Smoked in Last 30 Days: No Second Hand Smoke Exposure: No Use of substances other than those prescribed or required for medical reasons: No Advance Directives: Yes Advance Directives on File: Yes Advance Directives Date on File: 06/22/23 Do you have a plan to hurt others: No Plan service: Yes Current occupational status: retired Sexual orientation: Straight/Heterosexual Physical Exam Vital Signs: Vital Signs: Last Vital Signs Temp 97.6 F 11/14/24 10:13 Pulse 107 H 11/14/24 10:13 Resp 16 11/14/24 10:13 BP 154/90 H 11/14/24 10:13 Pulse Ox 94 11/14/24 10:13 O2 Del Method Room Air 11/14/24 10:13 BMI result Body Mass Index 25.8 hypertensive, tachycardic General: Well appearing, in no acute distress. Skin: Warm, dry, intact. No rashes or lesions. Head: Normocephalic, atraumatic. EENT: Hearing is intact b/l. Conjunctiva clear. PERRLA. EOM intact. Moist mucous membranes.? Neck: Supple without LAD Cardiac: Chest wall symmetric. RRR. Lungs: Normal respiratory effort without accessory muscle use. CTA bilaterally. Abdomen: Soft, non-tender, non-distended. No rebound tenderness or guarding Back: No midline spinous or paraspinal tenderness. No step off deformity. Ext: Upper and lower extremities atraumatic, without tenderness, deformity, swelling or erythema. no pitting edema. Neuro: AOx3. Normal speech. CN 2-12 grossly intact. Ambulating with steady gait. Psych: appears withdrawn, avoiding eye contact Course Course Course Narrative: 1055 -- On chart review, patient is prescribed nortriptyline and olanzapine by psych Dr. Sims. It appears that he was prescribed 7.5 mg of olanzapine on 10/20/2024 . This was a 28 day script however on 11/11/2024 he was prescribed another 28 day script of olanzapine 2.5 mg. It appears that they may have increased his dose to a total of 10mg daily. > 0.5 ativan ordered for anxiety. > basic labs/ ekg/ UA/ UDS ordered. will obtain care team consultation as well. 1241 -- CBC showing macrocytic anemia, chronic when compared to priors. no leukocytosis or left shift. chemistry without acute electrolyte abnormality requiring intervention. BUN around baseline. no ANDREA. random glucose 136. liver function at baseline. TSH wnl. Urinalysis without evidence of infection. Urine toxicology negative. Salicylates, acetaminophen undetectable. Ethanol undetectable. Negative COVID, flu, RSV. EKG showing sinus tachycardia with a rate of 109 beats per minute, no acute ischemic changes or ST elevations. No change when compared to prior EKGs. > cleared for care team. physician observation started. 1442 -- care team has placed patient on section 12. Medications Administered Discontinued Medications Generic Name Dose Route Start Last Admin Trade Name Freq PRN Reason Stop Dose Admin Lorazepam 0.5 mg 11/14/24 11:31 11/14/24 11:58 Lorazepam 0.5 Mg Tablet PO 11/14/24 11:32 0.5 mg ONCE ONE Administration Medical Decision Making Medical Decision Making [facility] Narrative: 79 year old male with pmhx significant for MDD with psychotic features, GERD, vertigo prostate cancer, hyperlipidemia, pulmonary embolism chronically anticoagulated on Eliquis presents [facility] the ED today from [facility] via EMS for evaluation of increased anxiety/ panic attacks over the last 2-3 days. Vital signs notable for tachycardia and hypertension. Vitals are otherwise WNL. He is overall well-appearing however during conversation he appears, avoids eye contact. His physical exam is otherwise quite unremarkable. Exam is nonfocal. Differential diagnosis includes anemia, electrolyte abnormality, dehydration, anxiety, depression, psychosis Plan for labs, UA, UDS, ekg, care team consult. Ativan ordered. Differential Diagnosis Differential Diagnoses: The differential diagnosis associated with the presentation includes as above. Admission/Observation Consideration of admission/observation: Escalation of care including admission/observation considered Lab Data MDM Lab Attestation statement: I reviewed the patient's lab results. as above. 11/14/24 11:19 11/14/24 11:19 Labs: Lab Results 11/14/24 11/14/24 Range/Units 11:19 11:52 WBC 5.3 (4.8-10.8) X10*3/uL RBC 3.89 L (4.60-5.80) X10*6/uL Hgb 13.5 L (14.0-18.0) g/dl Hct 38.5 L (42.0-52.0) % MCV 99.0 H (80.0-98.0) fL MCH 34.7 H (27.0-33.0) pg MCHC 35.1 (31.0-36.0) g/dl RDW 13.3 (11.0-16.0) % Plt Count 159 L (160-400) X10*3/uL MPV 9.0 L (9.4-12.4) fL Immature Gran % (Auto) 0.2 (0.0-0.4) % Neut % (Auto) 70.7 (45-73) % Lymph % (Auto) 15.4 L (20-40) % [place] % (Auto) 12.5 H (2-11) % Eos % (Auto) 0.8 (0-4) % Baso % (Auto) 0.4 (0-2) % Lymph # (Auto) 0.8 L (1.2-4.9) X10*3/uL [place] # (Auto) 0.7 (0.1-1.2) X10*3/uL Eos # (Auto) 0.0 (0.0-0.4) X10*3/uL Baso # (Auto) 0.0 (0.0-0.2) X10*3/uL Abs Immat Gran (auto) 0.01 (0.00-0.03) X10*3/uL Absolute Neuts (auto) 3.7 (2.0-8.3) x10*3/uL Absolute Nucleated RBC 0.000 (0.0-0.012) X10*3/uL Nucleated RBC % (auto) 0.0 (0.0-0.2) /100WBC Sodium 143 (135-145) mmol/L Potassium 3.8 (3.3-5.1) mmol/L Chloride 113 H (96-108) mmol/L Carbon Dioxide 22 (22-29) mmol/L Anion Gap 12 (12-20) BUN 26 H (9-16) mg/dL Creatinine 0.93 (0.5-1.4) mg/dL Estim Creat Clear Calc 66.3 Estimated GFR > 60 Random Glucose 136 H (60-115) mg/dL Calcium 9.2 (8.4-10.2) mg/dL Magnesium 1.7 (1.6-2.6) mg/dL Total Bilirubin 0.7 (0.0-1.0) mg/dL AST 39 H (5-37) U/L ALT 27 (0-40) U/L Alkaline Phosphatase 115 (39-117) U/L Total Protein 7.0 (6.5-8.0) g/dL Albumin 4.0 (3.5-5.0) g/dL Lipase 26 (8-78) U/L TSH 0.83 (0.32-4.0) uIU/mL Urine Color Yellow Urine Appearance Clear Urine pH 6.0 (5.0-9.0) Ur Specific [place] >= 1.030 H (1.005-1.025) Urine Protein Trace (Neg-Trace) mg/dL Urine Glucose (UA) Negative (Negative) mg/dL Urine Ketones Negative (Negative) mg/dL Urine Blood Negative (Negative) Urine Nitrite Negative (Negative) Ur Leukocyte Esterase Negative (Negative) Salicylates < 5.0 L (15-30) mg/dL Urine Opiates Screen Not Detected (Not Detect) Ur Buprenorphine Scrn Not Detected (Not Detect) ng/mL Ur Oxycodone Screen Not Detected (Not Detect) ng/mL Urine Methadone Screen Not Detected (Not Detect) ng/mL Urine Fentanyl Screen Not Detected (Not Detect) Acetaminophen < 3 (<30) mcg/mL Ur Barbiturates Screen Not Detected (Not Detect) Ur Phencyclidine Scrn Not Detected (Not Detect) Ur Amphetamines Screen Not Detected (Not Detect) U Benzodiazepines Scrn Not Detected (Not Detect) Urine Cocaine Screen Not Detected (Not Detect) U Marijuana (THC) Screen Not Detected (Not Detect) Ethyl Alcohol < 10 mg/dL Influenza Type A (PCR) NEGATIVE (Negative) Influenza Type B (PCR) NEGATIVE (Negative) RSV RNA Qual (PCR) NEGATIVE (Negative) SARS-CoV-2 RNA (RT-PCR) NEGATIVE (Negative) Independent Interpretation I performed an independent interpretation of an: EKG Interpretation: EKG showing sinus tachycardia with a rate of 109 beats per minute, QT 344, QTC 463, no acute ischemic changes or ST elevations. Independent Historian Clinical information obtained from an independent historian. History obtained from or confirmed by: EMS External Record Review External record reviewed: Inpatient record Prescription Management I considered prescription management with: Other (Anxiolytic) Chronic Conditions Patient?s care impacted by: Other (MDD, anxiety) Social Determinants Patient?s care significantly limited by Social Determinants of Health including: Other Social Determinant of Health Discharge Plan Discharge Clinical Impression: Anxiety Patient Disposition: Still a Patient Prescriptions: No Action sennosides [Senna Lax] 8.6 mg Tablet 8.6 mg PO BEDTIME 30 Days Qty: 30 0RF melatonin 3 mg Tablet 6 mg PO BEDTIME 30 Days Qty: 60 0RF olanzapine 7.5 mg Tablet 7.5 mg PO BEDTIME 30 Days Qty: 30 0RF nortriptyline 25 mg Capsule 75 mg PO BEDTIME 30 Days Qty: 90 0RF benzonatate 100 mg Capsule 100 mg PO TID PRN (Reason: cough) 30 Days Qty: 60 0RF erythromycin 5 mg/gram (0.5 %) Ointment 1 cm ophthalmic (eye) BID 30 Days Qty: 1 0RF omeprazole 20 mg Capsule,Delayed Release(Dr/Ec) 20 mg PO DAILY@0630 30 Days Qty: 30 0RF cholecalciferol (vitamin D3) [Vitamin D3] 10 mcg (400 unit) Tablet 10 mcg PO DAILY 30 Days Qty: 30 0RF atorvastatin 40 mg tablet 1 tab PO BEDTIME 30 Days Qty: 30 0RF ferrous sulfate 325 mg (65 mg iron) Tablet 325 mg PO DAILY 30 Days Qty: 30 0RF docusate sodium [Colace] 100 mg Capsule 100 mg PO BID 60 Days Qty: 120 0RF oxybutynin chloride 5 mg tablet 5 mg PO DAILY 30 Days Qty: 30 0RF finasteride 5 mg tablet 1 tab PO DAILY 30 Days Qty: 30 0RF Eliquis 5 mg tablet 5 mg PO BID Qty: 60 0RF Rx Instructions: To start on 09/26. Print Language: Burkinan
--- NOTE | 2024-11-14 10:47 | ECG_ITS ---
Test Reason : palpitations Blood Pressure : */* mmHG Vent. Rate : 109 BPM Atrial Rate : 109 BPM P-R Int : 188 ms QRS Dur : 92 ms QT Int : 344 ms P-R-T Axes : 14 -36 21 degrees QTcB Int : 463 ms Sinus tachycardia Left axis deviation Possible Anterior infarct , age undetermined Abnormal ECG When compared with ECG of 24-Jun-2024 12:22, No significant change was found Referred By: Hannah Mayes Electronically Signed By: RAJIV RUIZ MD
--- OUTSIDE RECORDS SUMMARY | 2024-11-14 11:13 | XMS_ITS | Patient Health Record ---
Author Organization [facility] Address [address] [place] [phone] Care Team Providers Care Clinical Cytogenetics Director Name Role Phone Zaida Nova Primary Care [...] iron deficiency anemia type (D50.9) Active confirmed 75674135 Problem Gastroesophageal reflux disease with esophagitis, unspecified whether hemorrhage (K21.00) Active confirmed [id number] Problem Erosive esophagitis (K22.10) Active confirmed [id number] Problem Diarrhea, unspecified type (R19.7) Active confirmed [id number] Problem Hemorrhoids with complication (K64.8) Active confirmed [id number] PLAN OF TREATMENT No Information Insurance Providers Payer Name Payer Address Payer Phone Subscriber Number Group Number Insured Name Patient Relationship to Insured Coverage Start Date Coverage End Date MEDICARE OF [place] [address] [place] [address] [id number] [employer] Self - patient is the insured FORMERLY [facility] [employer] [address] [place] [address] [id number] [employer] Self - patient is [...]
--- OUTSIDE RECORDS SUMMARY | 2024-11-14 11:13 | XMS_ITS ---
Author Organization [facility] Address [address] [place] [phone] Care Team Providers Care Exchange Specialist Name Role Phone [place] JAEL Zaida Primary Care Provider UnavailJose Alejandro Mondragon Jr Unavailable [phone] ALLERGIES No Known Allergies REASON FOR VISIT [...] Problem Hemorrhoids with complication (K64.8) Active confirmed [id number] VITAL SIGNS BMI 25.80 kg/m2 06/22/2023 Blood pressure systolic 000 mm Hg 06/22/20 23 Blood pressure diastolic 00 mm Hg 023 Height 71 in 06/22/2023 Temperature 97.7 degrees Fahrenheit 06/22/20 23 Weight 185 lbs 06/22/2023 Encounters Encounter Location Date Provider Diagnosis [facility] [address] [place] [address] 06/22/2023 Jose Alejandro White Jr Gastroesophageal reflux [...] Date Notes Hydrocortisone 1 % 1 application Parts Counter Specialist ally Once a day as needed fir hemorrhoids 06/22/2023 Treatment Notes Assessment Notes Gastroesophageal reflux dise ase with esophagitis, unspecified whether hemorrhage Gastroesophageal reflux disease material was printed Next Appt Details Follow Up: 1 Year, Reason:
--- OUTSIDE RECORDS SUMMARY | 2024-11-14 11:13 | XMS_ITS ---
Author Organization [facility] Address [address] [place] [phone] Care Team Providers Care Salt Lifter Name Role Phone [place] JAEL Zaida Primary Care Provider Unavailab Jose Alejandro Jones Jr [phone] REASON FOR VISIT Patient presents today for erosive esophagitis Encounters Encounter Location Date Provider Diagnosis [facility] [address] [place] [phone] 07/15/2023 Jose Alejandro White Jr PLAN OF TREATMENT No Information
--- OUTSIDE RECORDS SUMMARY | 2024-11-14 11:13 | XMS_ITS ---
Author Organization [facility] Address [address] [place] [phone] Care Team Providers Care Hot Box Spotter Name Role Phone [place] JAEL Zaida Primary Care Provider Unavailab Jose Alejandro Jones Jr REASON FOR VISIT ov recall Encounters Encounter Location Date Provider Diagnosis [facility] [address] [place] [phone] 06/22/2023 Jose Alejandro White Jr PLAN OF TREATMENT No Information
[2024-11-14 11:24] LABS: MANUAL DIFF FLAG NO
[2024-11-14 11:27] LABS: Basophils Percent Auto 0.4 % (0-2); Eosinophils Percent Auto 0.8 % (0-4); Hematocrit 38.5 % (42.0-52.0); Hemoglobin 13.5 g/dl (14.0-18.0); Imm Gran Abs Auto 0.01 X10*3/uL (0.00-0.03); Imm Gran Pct Auto 0.2 % (0.0-0.4); Lymphocytes Absolute Auto 0.8 X10*3/uL (1.2-4.9); Lymphocytes Percent Auto 15.4 % (20-40); Mean Corpuscular HGB Conc 35.1 g/dl (31.0-36.0); Mean Corpuscular Hemoglobin 34.7 pg (27.0-33.0); Monocytes Absolute Auto 0.7 X10*3/uL (0.1-1.2); Monocytes Percent Auto 12.5 % (2-11); Neutrophils Absolute Auto 3.7 x10*3/uL (2.0-8.3); Neutrophils Percent Auto 70.7 % (45-73); Platelet Count 159 X10*3/uL (160-400); Red Blood Count 3.89 X10*6/uL (4.60-5.80); Red Cell Distribution Width 13.3 % (11.0-16.0); White Blood Count 5.3 X10*3/uL (4.8-10.8)
[2024-11-14 11:41] LABS: Alanine Aminotransferase 27 U/L (0-40); Alkaline Phosphatase 115 U/L (39-117); Anion Gap 12 (12-20); Aspartate Amino Transferase 39 U/L (5-37); Bilirubin Total 0.7 mg/dL (0.0-1.0); Blood Urea Nitrogen 26 mg/dL (9-16); Calcium 9.2 mg/dL (8.4-10.2); Carbon Dioxide 22 mmol/L (22-29); Chloride 113 mmol/L (96-108); Creatinine Clr Calc Pharmacy 66.3; Estimated Glomerular Filt Rate > 60; Ethanol < 10 mg/dL; Glucose Random 136 mg/dL (60-115); Lipase 26 U/L (8-78); Magnesium 1.7 mg/dL (1.6-2.6); Potassium 3.8 mmol/L (3.3-5.1); Sodium 143 mmol/L (135-145)
[2024-11-14 11:51] LABS: Acetaminophen LAB < 3 mcg/mL (<30); Salicylate < 5.0 mg/dL (15-30)
[2024-11-14 11:58] LABS: Appearance Urine Clear; Color Urine Yellow; Glucose Urine UA Negative (Negative); Leukocyte Esterase Urine Negative (Negative); Nitrite Urine Negative (Negative); Specific Gravity - Urine >= 1.030 (1.005-1.025); Urine Blood Negative (Negative); Urine Ketones Negative (Negative); Urine Protein Trace mg/dL (Neg-Trace)
[2024-11-14] MEDS: LORazepam 0.5 MG TABLET PO (11:58)
[2024-11-14 12:01] LABS: TSH reflex Free T4 0.83 uIU/mL (0.32-4.0)
[2024-11-14 12:08] LABS: Amphetamine Screen Urine Not Detected (Not Detect); Barbiturates, Urine Not Detected (Not Detect); Benzodiazepines Screen Urine Not Detected (Not Detect); Buprenorphine Scr Not Detected (Not Detect); Cannabinoid Screen Urine Not Detected (Not Detect); Cocaine Screen Urine Not Detected (Not Detect); Fentanyl, urine Not Detected (Not Detect); Methadone Screen, Urine Not Detected (Not Detect); Opiate Screen Urine Not Detected (Not Detect); Oxycodone Screen Urine Not Detected (Not Detect); Phencyclidine Screen Urine Not Detected (Not Detect)
[2024-11-14 12:11] LABS: Influenza A PCR NEGATIVE (Negative); Influenza B PCR NEGATIVE (Negative); Resp Syncy Virus RNA Qual PCR NEGATIVE (Negative); SARS COV2 PCR INHOUSE NEGATIVE (Negative)
--- NOTE | 2024-11-14 14:55 | PHA.MEDREC ---
Pharmacy Consult ? Medication Reconciliation Pharmacy has completed the medication reconciliation. Med list from [facility]
[2024-11-14 16:05] VITALS: BP 156/88; PULSE 96; RESP 16; TEMP 36.5; O2SAT 94
--- NOTE | 2024-11-14 16:06 | PC.NURSE ---
Pt resting quietly on stretcher; awaiting dispo
--- NOTE | 2024-11-14 16:52 | PC.NURSE ---
Report gv to DEBBIE Palacio/[facility]
[2024-11-14 17:19] VITALS: BMI 27.4
[2024-11-14 17:20] VITALS: BP 136/103; PULSE 102; RESP 17; TEMP 37.2; O2SAT 95
--- NOTE | 2024-11-14 18:12 | PC.ADMIT ---
Patient was admitted at 1715 on a CV from our ED for treatment of generalized anxiety disorder. Patient has been living at an Assisted Living Facility where he asked staff to take him to the emergency department for increased anxiety and panic attacks. Patient is familiar to [facility] with a hx of 7 inpatient psych admissions on M5 and has received ECT with Dr. Molina in the past. During the admission assessment, patients affect presents as anxious and his body language is congruent with these findings, as he is unable to sit still throughout the assessment with increased psychomotor agitation. Patient reports poor appetite along with sleep which he describes has been lowsy . He denies SI/HI/AVH along with any hx of trauma. Patient is A&Ox4, thought process is clear/linear, though he is avoidant of eye contact during interactions. Skin check has been completed with another nurse (all skin WDI) and patient placed on 5 minute checks for safety.
[2024-11-14 19:42] LABS: Alanine Aminotransferase 26 U/L (0-40); Albumin Level 4.2 g/dL (3.5-5.0); Alkaline Phosphatase 124 U/L (39-117); Aspartate Amino Transferase 34 U/L (5-37); Bilirubin Total 0.7 mg/dL (0.0-1.0); Blood Urea Nitrogen 26 mg/dL (9-16); Creatinine Clr Calc Pharmacy 51.4; Estimated Glomerular Filt Rate 58; Glucose Random 199 mg/dL (60-115); Total Protein 7.5 g/dL (6.5-8.0)
[2024-11-14 19:50] VITALS: BP 109/78; PULSE 104; RESP 16; TEMP 36.2; O2SAT 95
[2024-11-14 19:50] LABS: Anion Gap 18 (12-20); Carbon Dioxide 17 mmol/L (22-29); Chloride 112 mmol/L (96-108); Potassium 3.7 mmol/L (3.3-5.1); Sodium 143 mmol/L (135-145)
[2024-11-14] MEDS: Atorvastatin Calcium 40 MG TABLET PO (21:29)
[2024-11-14] MEDS: Docusate Sodium 100 MG CAPSULE PO (21:29)
[2024-11-14] MEDS: OLANZapine 7.5 MG TABLET PO (21:29)
[2024-11-14] MEDS: Nortriptyline HCl 25 MG CAPSULE 75 MG PO (21:29)
[2024-11-14] MEDS: Melatonin 3 MG TABLET 6 MG PO (21:29)
[2024-11-14] MEDS: Apixaban 5 MG TABLET PO (21:29)
[2024-11-14] MEDS: traZODone HCL 50 MG TABLET PO (21:29)
[2024-11-15] MEDS: Omeprazole 40 MG CAPSULE.DR PO (05:50)
[2024-11-15 07:55] VITALS: BP 125/65; PULSE 90; RESP 20; TEMP 36.8; O2SAT 97
[2024-11-15 08:08] LABS: Estimated Average Glucose 131 mg/dL; Hemoglobin A1C 146.1427 umol/L; Hemoglobin A1c % 6.2 % (<6.0); Total Hemoglobin (HGBA1C) 3343.6788 umol/L
[2024-11-15 08:18] LABS: Cholesterol 105 mg/dL (<200); HDL Cholesterol 38 mg/dL (>40); LDL Cholesterol Calculated 51 mg/dL (<100); Magnesium 1.7 mg/dL (1.6-2.6); Triglycerides 82 mg/dL (<150)
[2024-11-15] MEDS: Apixaban 5 MG TABLET PO ×2 (08:21→20:33)
[2024-11-15] MEDS: Ferrous Sulfate 324 MG TABLET.DR PO (08:21)
[2024-11-15] MEDS: oxyBUTYnin chloride 5 MG TABLET PO (08:21)
[2024-11-15] MEDS: Finasteride 5 MG TABLET PO (08:21)
[2024-11-15] MEDS: polyethylene glycoL 3350 17 GM POWD.PACK PO (08:21)
[2024-11-15] MEDS: Docusate Sodium 100 MG CAPSULE PO ×2 (08:21→20:33)
[2024-11-15 08:34] LABS: Thyroid Stimulating Hormone 1.46 uIU/mL (0.32-4.0)
[2024-11-15 08:47] LABS: Folate 7.2 ng/mL (> or = 4.0); Vitamin B12 288 pg/mL (200-900)
--- NOTE | 2024-11-15 11:37 | P.HPPS_ITS ---
HPI Date of Service: 11/15/24 Chief Complaint: SI Sources of Information: patient interviewed, chart reviewed and crisis/core team assessment reviewed HPI Subjective Notes: Griffith Warning and Conditional Voluntary Narrative: The patient is an 79-year-old male, resident of an assisted living facility, with a past history of major depressive disorder, anxiety and cognitive problems. The patient follows treatment with Dr. Sims as an outpatient and he had been having ECT in the past at this facility. The patient is very well known by me since I did ECT in the past to him. According to the crisis assessment, the patient was disclosing suicidal ideation without a clear plan or intent to the staff of the assisted living facility and he was rushed to the emergency room. He was assessed by crisis and transferring to this facility for psychiatric stabilization. During the intake interview, the patient reported that he was having suicidal thoughts, he wants to , T was perseverative and concrete unable to verbalize a plan. He was a very poor historian unable to provide more details stated that he was feeling dysphoric with a exacerbation of depressive symptoms elicited by depressed mood, anhedonia, lack of energy and feelings of hopelessness for an unknown time. He denies auditory hallucinations or delusions. We are going to get collateral information, this moment we are keeping on 15 minute checks. Past Psychiatric History: -Has OP psychiatrist, Dr. Sims. Hx of ECT maintenance treatment. Has OP therapy through [facility]. -Hx of IPLOC at and [facility] for psychotic depression with catatonia. Assisted Living facility reports he has at least 2 inpatient stays a year. -Per chart, pt has declined when he misses ECT treatment, i.e. in 2019 he was admitted to [facility] due to deteriorating after missing ECT in context of pulmonary embolism. Medical Evaluation Reviewed: Yes [facility] Medical History COVID-19 vaccine administered History of electroconvulsive therapy Major depressive disorder, recurrent, severe with psychotic features Pulmonary embolism Diverticulitis of colon with perforation Hyperlipidemia HTN (hypertension) Dementia GERD (gastroesophageal reflux disease) Depression SVT (supraventricular tachycardia) Surgical History History of esophagogastroduodenoscopy (EGD) H/O colonoscopy Status post Paula's procedure History of colostomy reversal H/O hernia repair Family History: unknown Social History: -Pt resides in an Assisted Living Facility, [facility] in [place]. -Pt?s is . Has step-daughter who is HCP and brother in [place]. He is a . Trauma History: Unknown Diagnostics Vital Signs (24Hr): Vital Signs - 24 hr 11/14/24 16:05 11/14/24 17:20 11/14/24 19:50 Temperature 97.7 F 99.0 F 97.2 F Pulse Rate 96 102 H 104 H Respiratory Rate 16 17 16 Blood Pressure 156/88 H 136/103 H 109/78 Pulse Oximetry 94 95 95 Oxygen Delivery Method Room Air Room Air Room Air 11/15/24 07:55 Temperature 98.2 F Pulse Rate 90 Respiratory Rate 20 Blood Pressure 125/65 Pulse Oximetry 97 Oxygen Delivery Method Room Air BMI result Body Mass Index 27.4 Labs 11/14/24 11:19 11/14/24 18:48 Labs: Laboratory Results - last 48 hr 11/14/24 11/14/24 11/14/24 11:19 11:52 18:48 WBC 5.3 RBC 3.89 L Hgb 13.5 L Hct 38.5 L MCV 99.0 H MCH 34.7 H MCHC 35.1 RDW 13.3 Plt Count 159 L MPV 9.0 L Immature Gran % (Auto) 0.2 Neut % (Auto) 70.7 Lymph % (Auto) 15.4 L King[place] % (Auto) 12.5 H Eos % (Auto) 0.8 Baso % (Auto) 0.4 Lymph # (Auto) 0.8 L [place] # (Auto) 0.7 Eos # (Auto) 0.0 Baso # (Auto) 0.0 Abs Immat Gran (auto) 0.01 Absolute Neuts (auto) 3.7 Absolute Nucleated RBC 0.000 Nucleated RBC % (auto) 0.0 Sodium 143 143 Potassium 3.8 3.7 Chloride 113 H 112 H Carbon Dioxide 22 17 L Anion Gap 12 18 BUN 26 H 26 H Creatinine 0.93 1.20 Estim Creat Clear Calc 66.3 51.4 Estimated GFR > 60 58 Random Glucose 136 H 199 H Estimat Average Glucose Hemoglobin A1c % Calcium 9.2 9.0 Magnesium 1.7 Total Bilirubin 0.7 0.7 AST 39 H 34 ALT 27 26 Alkaline Phosphatase 115 124 H Total Protein 7.0 7.5 Albumin 4.0 4.2 Triglycerides Cholesterol LDL Cholesterol, Calc HDL Cholesterol Lipase 26 Vitamin B12 Folate TSH 0.83 Urine Color Yellow Urine Appearance Clear Urine pH 6.0 Ur Specific [place] >= 1.030 H Urine Protein Trace Urine Glucose (UA) Negative Urine Ketones Negative Urine Blood Negative Urine Nitrite Negative Ur Leukocyte Esterase Negative Salicylates < 5.0 L Urine Opiates Screen Not Detected Ur Buprenorphine Scrn Not Detected Ur Oxycodone Screen Not Detected Urine Methadone Screen Not Detected Urine Fentanyl Screen Not Detected Acetaminophen < 3 Ur Barbiturates Screen Not Detected Ur Phencyclidine Scrn Not Detected Ur Amphetamines Screen Not Detected U Benzodiazepines Scrn Not Detected Urine Cocaine Screen Not Detected U Marijuana (THC) Screen Not Detected Ethyl Alcohol < 10 Influenza Type A (PCR) NEGATIVE Influenza Type B (PCR) NEGATIVE RSV RNA Qual (PCR) NEGATIVE SARS-CoV-2 RNA (RT-PCR) NEGATIVE 11/15/24 07:36 WBC RBC Hgb Hct MCV MCH MCHC RDW Plt Count MPV Immature Gran % (Auto) Neut % (Auto) Lymph % (Auto) [place] % (Auto) Eos % (Auto) Baso % (Auto) Lymph # (Auto) [place] # (Auto) Eos # (Auto) Baso # (Auto) Abs Immat Gran (auto) Absolute Neuts (auto) Absolute Nucleated RBC Nucleated RBC % (auto) Sodium Potassium Chloride Carbon Dioxide Anion Gap BUN Creatinine Estim Creat Clear Calc Estimated GFR Random Glucose Estimat Average Glucose 131 Hemoglobin A1c % 6.2 H Calcium Magnesium 1.7 Total Bilirubin AST ALT Alkaline Phosphatase Total Protein Albumin Triglycerides 82 Cholesterol 105 LDL Cholesterol, Calc 51 HDL Cholesterol 38 L Lipase Vitamin B12 288 Folate 7.2 TSH 1.46 Urine Color Urine Appearance Urine pH Ur Specific [place] Urine Protein Urine Glucose (UA) Urine Ketones Urine Blood Urine Nitrite Ur Leukocyte Esterase Salicylates Urine Opiates Screen Ur Buprenorphine Scrn Ur Oxycodone Screen Urine Methadone Screen Urine Fentanyl Screen Acetaminophen Ur Barbiturates Screen Ur Phencyclidine Scrn Ur Amphetamines Screen U Benzodiazepines Scrn Urine Cocaine Screen U Marijuana (THC) Screen Ethyl Alcohol Influenza Type A (PCR) Influenza Type B (PCR) RSV RNA Qual (PCR) SARS-CoV-2 RNA (RT-PCR) Meds/Allergies Meds Home Medications ?Medication ?Instructions ?Recorded ?Confirmed ?Type omeprazole 40 mg capsule,delayed 40 mg PO DAILY@0630 11/14/24 11/14/24 History release polyethylene glycol 3350 17 17 g PO DAILY 11/14/24 11/14/24 History gram/dose oral powder (Miralax) sennosides 8.6 mg tablet (Senna 8.6 mg PO BEDTIME PRN Constipation 11/14/24 11/14/24 History Lax) Allergies Allergies Allergy/AdvReac Type Severity Reaction Status Date / Time No Known Allergies Allergy Verified 11/14/24 10:15 [No Known Allergies*] Mental Status Exam Mental Status Exam Patient Appearance: Appropriate Patient Orientation: Person Level of Consciousness: Restless and Inappropriate Patient Behavior: Guarded and Passive Mood Description: Withdrawn Affect Description: Blunted Patient Cognition Impaired: Yes Ability to Follow Directions: Fair Speech Pattern: Impoverished Hallucinations: None Delusions: Ideas of Reference Thought Process: Distracted and Slowed Thinking Thought Content: positive for [place] and positive for Poverty of Content Judgement: Poor Assessment & Plan Assessment & Plan (1) Major depressive disorder, recurrent, severe with psychotic features: Status: Acute Code(s): F33.3 - Major depressive disorder, recurrent, severe with psychotic symptoms Plan The patient is an 79-year-old male resident of assisted living facility with a past history of major depressive disorder recurrent episode severe with psychotic features with past history of ECT. He was brought from the [facility] since he was suicidal and more dysphoric. He is a very poor historian unable to provide details. Plan 1. Gather collateral information., we will try to contact Dr. iSms to get more information on his treatment plan. 2. Continue with Zyprexa and nortriptyline as prescribed. 3. 15 minute checks. 4. EKG for the possibility of ECT. 5. Reassessment with results Patient educated on: diagnosis Informed Consent: further education needed Reason for continued inpatient stay Substantial Risk for: inability to function, rapid decompensation and med/psych decompensation Statement Statement: I have reviewed the history and physical and performed a pertinent examination on my patient. No changes have occurred unless specified. If the History and Physical was not performed prior to admission, the Hospitalist's service will be consulted for completing the admission physical. Time Spent With Patient Time: Total time managing care of this patient today __45__ minutes.
[2024-11-15 20:00] VITALS: BP 130/79; PULSE 88; TEMP 37.2; O2SAT 94
[2024-11-15] MEDS: Melatonin 3 MG TABLET 6 MG PO (20:33)
[2024-11-15] MEDS: Atorvastatin Calcium 40 MG TABLET PO (20:33)
[2024-11-15] MEDS: OLANZapine 7.5 MG TABLET PO (20:33)
[2024-11-15] MEDS: Nortriptyline HCl 25 MG CAPSULE 75 MG PO (20:33)
[2024-11-16] MEDS: Omeprazole 40 MG CAPSULE.DR PO (05:29)
[2024-11-16 07:55] VITALS: BP 139/77; PULSE 100; RESP 18; TEMP 36.6; O2SAT 96
[2024-11-16] MEDS: Cholecalciferol (Vitamin D3) 10 MCG TABLET PO (08:01)
[2024-11-16] MEDS: oxyBUTYnin chloride 5 MG TABLET PO (08:01)
[2024-11-16] MEDS: Apixaban 5 MG TABLET PO ×2 (08:01→20:18)
[2024-11-16] MEDS: Finasteride 5 MG TABLET PO (08:01)
[2024-11-16] MEDS: Docusate Sodium 100 MG CAPSULE PO ×2 (08:01→20:18)
[2024-11-16] MEDS: polyethylene glycoL 3350 17 GM POWD.PACK PO (08:01)
[2024-11-16] MEDS: Ferrous Sulfate 324 MG TABLET.DR PO (08:01)
--- NOTE | 2024-11-16 14:46 | HO.PSYCHPN ---
Subjective Subjective Date of Service: 11/16/24 Reason For Visit: SI Subjective Notes: Conditional Voluntary Interim History: The nursing staff reported that the patient had been isolative, most of the time on his bed, compliant with medciations. I contacted his psychiatrist and he is coming back from vacation next Thursday, no new changes. On interview he remains confused and dysphoric, reporting suicidal thoughts. Mental Status Exam Mental Status Exam Patient Appearance: Appropriate Patient Orientation: Person Level of Consciousness: Awake and Appropriate Patient Behavior: Guarded and Passive Mood Description: Withdrawn Affect Description: Blunted Patient Cognition Impaired: Yes Ability to Follow Directions: Fair Speech Pattern: Impoverished and Monotone Hallucinations: None Delusions: Paranoid Ideation and Ideas of Reference Thought Process: Distracted and Slowed Thinking Judgement: Poor Diagnostics Vital Signs (24Hr): Vital Signs - 24 hr 11/15/24 20:00 11/16/24 07:55 Temperature 98.9 F 97.9 F Pulse Rate 88 100 Respiratory Rate 18 Blood Pressure 130/79 139/77 Pulse Oximetry 94 96 Oxygen Delivery Method Room Air Room Air BMI result Body Mass Index 27.4 Labs 11/14/24 11:19 11/14/24 18:48 Labs: Laboratory Results - last 48 hr 11/14/24 11/15/24 18:48 07:36 Sodium 143 Potassium 3.7 Chloride 112 H Carbon Dioxide 17 L Anion Gap 18 BUN 26 H Creatinine 1.20 Estim Creat Clear Calc 51.4 Estimated GFR 58 Random Glucose 199 H Estimat Average Glucose 131 Hemoglobin A1c % 6.2 H Calcium 9.0 Magnesium 1.7 Total Bilirubin 0.7 AST 34 ALT 26 Alkaline Phosphatase 124 H Total Protein 7.5 Albumin 4.2 Triglycerides 82 Cholesterol 105 LDL Cholesterol, Calc 51 HDL Cholesterol 38 L Vitamin B12 288 Folate 7.2 TSH 1.46 Medications Medications Current Medications Acetaminophen (Acetaminophen 325 Mg Tablet) 650 mg PO Q6H PRN PRN Reason: Headache/Pain, Scale 1-10 Al Hydroxide/Mg Hydroxide (Magnesium Hydrox/Alum Hydrox 30 Ml Oral.Susp) 30 ml PO Q6H PRN PRN Reason: Heartburn/Nausea Apixaban (Apixaban 5 Mg Tablet) 5 mg PO BID [facility] Last Admin: 11/16/24 08:01 Dose: 5 mg Atorvastatin Calcium (Atorvastatin Calcium 40 Mg Tablet) 40 mg PO BEDTIME [facility] Last Admin: 11/15/24 20:33 Dose: 40 mg Docusate Sodium (Docusate Sodium 100 Mg Capsule) 100 mg PO BID [facility] Last Admin: 11/16/24 08:01 Dose: 100 mg Ferrous Sulfate (Ferrous Sulfate 324 Mg Tablet.) 324 mg PO DAILY [facility] Last Admin: 11/16/24 08:01 Dose: 324 mg Finasteride (Finasteride 5 Mg Tablet) 5 mg PO DAILY [facility] Last Admin: 11/16/24 08:01 Dose: 5 mg Magnesium Hydroxide (Milk Of Magnesia 30 Ml Oral.Susp) 30 ml PO DAILY PRN PRN Reason: Constipation Melatonin (Melatonin 3 Mg Tablet) 6 mg PO BEDTIME [facility] Last Admin: 11/15/24 20:33 Dose: 6 mg Nortriptyline HCl (Nortriptyline Hcl 25 Mg Capsule) 75 mg PO BEDTIME [facility] Last Admin: 11/15/24 20:33 Dose: 75 mg Olanzapine (Olanzapine 7.5 Mg Tablet) 7.5 mg PO BEDTIME [facility] Last Admin: 11/15/24 20:33 Dose: 7.5 mg Omeprazole (Omeprazole 40 Mg Capsule.) 40 mg PO DAILY@0630 [facility] Last Admin: 11/16/24 05:29 Dose: 40 mg Oxybutynin Chloride (Oxybutynin Chloride 5 Mg Tablet) 5 mg PO DAILY [facility] Last Admin: 11/16/24 08:01 Dose: 5 mg Polyethylene Glycol (Polyethylene Glycol 3350 17 Gm Powd.Pack) 17 gm PO DAILY [facility] Last Admin: 11/16/24 08:01 Dose: 17 gm Senna (Sennosides 8.6 Mg Tablet) 8.6 mg PO BEDTIME PRN PRN Reason: Constipation Trazodone HCl (Trazodone Hcl 50 Mg Tablet) 50 mg PO BEDTIME MRX1 PRN PRN Reason: Insomnia Last Admin: 11/14/24 21:29 Dose: 50 mg Vitamin D (Cholecalciferol (Vitamin D3) 10 Mcg Tablet) 10 mcg PO DAILY [facility] Last Admin: 11/16/24 08:01 Dose: 10 mcg Allergies Allergies Allergy/AdvReac Type Severity Reaction Status Date / Time No Known Allergies Allergy Verified 11/14/24 10:15 [No Known Allergies*] Assessment & Plan Assessment & Plan (1) Major depressive disorder, recurrent, severe with psychotic features: Status: Acute Code(s): F33.3 - Major depressive disorder, recurrent, severe with psychotic symptoms Plan The patient is an 79-year-old male resident of assisted living facility with a past history of major depressive disorder recurrent episode severe with psychotic features with past history of ECT. He was brought from the [facility] since he was suicidal and more dysphoric. He is a very poor historian unable to provide details. Plan 1. Gather collateral information., we will try to contact Dr. Sims to get more information on his treatment plan. 2. Continue with Zyprexa and nortriptyline as prescribed. 3. 15 minute checks. 4. EKG for the possibility of ECT. 5. Reassessment with results 6. ECT ordered for next Thursday Reason for continued inpatient stay Substantial Risk for: inability to function, rapid decompensation and med/psych decompensation Time Spent With Patient Time: Total time managing care of this patient today __20__ minutes.
--- NOTE | 2024-11-16 17:11 | HO.ECT-CONS ---
History of Present Illness Data of Consult Service Date: 11/16/24 Primary Care Provider: Unknown Physician [facility] Reason for consult: ECT risk stratification The pt is an 79-year-old male with PMH significant for prostate cancer, pulmonary embolism on Eliquis, vertigo, GERD, HLD, and MDD with psychotic features who was admitted to [facility] for increased anxiety and panic attacks. Hospitalist consult for ECT risk stratification. Pt with a long hx of ECT, currently receiving monthly outpatient maintenance ECT with last session on 10/29/2024. Pt seen and evaluated in his room where he appears anxious and restless. Pt is slow to respond to questions and constantly shuffles his feet on the bed. Pt denies any significant changes to PMH since last ECT a few weeks prior, and denies any acute medical complaints at this time. No fever, chills, nausea, vomiting, abdominal pain. Denies chest pain/pressure, palpitations. No SOB or difficulty breathing. Denies headache or acute vision changes. Review of Systems Review of Systems: Negative except for that which is stated in the HPI [facility] Medical History COVID-19 vaccine administered History of electroconvulsive therapy Major depressive disorder, recurrent, severe with psychotic features Pulmonary embolism Diverticulitis of colon with perforation Hyperlipidemia HTN (hypertension) Dementia GERD (gastroesophageal reflux disease) Depression SVT (supraventricular tachycardia) Family History Brother Blood clot in vein Other No history of cardiac disorder Surgical History History of esophagogastroduodenoscopy (EGD) H/O colonoscopy Status post Paula's procedure History of colostomy reversal H/O hernia repair Social History Household Members: None Housing: Assisted Living Facility Are you a primary occasional caregiver to a significant other at home: No Do you presently have visiting nurse or other home services: No Alcohol intake: former Comment: headache better Patient Tobacco Use Status: Never used Tobacco Smoked in Last 30 Days: No Second Hand Smoke Exposure: No Use of substances other than those prescribed or required for medical reasons: No Currently Displaying Signs/Symptoms of Drug Intoxication Withdrawal: No Any prior treatment program specific to substance use: No Have you been hit, kicked, punched, or otherwise hurt by someone within the past year? If so, by whom?: No Do you feel safe in your current relationship?: No Current Relationship Is there a partner from a previous relationship who is making you feel unsafe now?: No Are you made to feel afraid or neglected: No Advance Directives: Yes Advance Directives on File: Yes Advance Directives Date on File: 06/22/23 Do you have thoughts of harming others: None Do you have a plan to hurt others: No Plan Recently lost weight without trying: Unsure Eating poorly because of decreased appetite: Yes Nutrition Risks: No Nutritional Risk Poor oral hygiene: No service: Yes Current occupational status: retired Sexual orientation: Straight/Heterosexual Meds Allergies Allergy/AdvReac Type Severity Reaction Status Date / Time No Known Allergies Allergy Verified 11/14/24 10:15 [No Known Allergies*] Active Medications: Current Medications Acetaminophen (Acetaminophen 325 Mg Tablet) 650 mg PO Q6H PRN PRN Reason: Headache/Pain, Scale 1-10 Al Hydroxide/Mg Hydroxide (Magnesium Hydrox/Alum Hydrox 30 Ml Oral.Susp) 30 ml PO Q6H PRN PRN Reason: Heartburn/Nausea Apixaban (Apixaban 5 Mg Tablet) 5 mg PO BID [facility] Last Admin: 11/16/24 08:01 Dose: 5 mg Atorvastatin Calcium (Atorvastatin Calcium 40 Mg Tablet) 40 mg PO BEDTIME [facility] Last Admin: 11/15/24 20:33 Dose: 40 mg Docusate Sodium (Docusate Sodium 100 Mg Capsule) 100 mg PO BID [facility] Last Admin: 11/16/24 08:01 Dose: 100 mg Ferrous Sulfate (Ferrous Sulfate 324 Mg Tablet.Dr) 324 mg PO DAILY [facility] Last Admin: 11/16/24 08:01 Dose: 324 mg Finasteride (Finasteride 5 Mg Tablet) 5 mg PO DAILY [facility] Last Admin: 11/16/24 08:01 Dose: 5 mg Magnesium Hydroxide (Milk Of Magnesia 30 Ml Oral.Susp) 30 ml PO DAILY PRN PRN Reason: Constipation Melatonin (Melatonin 3 Mg Tablet) 6 mg PO BEDTIME [facility] Last Admin: 11/15/24 20:33 Dose: 6 mg Nortriptyline HCl (Nortriptyline Hcl 25 Mg Capsule) 75 mg PO BEDTIME [facility] Last Admin: 11/15/24 20:33 Dose: 75 mg Olanzapine (Olanzapine 7.5 Mg Tablet) 7.5 mg PO BEDTIME [facility] Last Admin: 11/15/24 20:33 Dose: 7.5 mg Omeprazole (Omeprazole 40 Mg Capsule.Dr) 40 mg PO DAILY@06 [facility] Last Admin: 11/16/24 05:29 Dose: 40 mg Oxybutynin Chloride (Oxybutynin Chloride 5 Mg Tablet) 5 mg PO DAILY [facility] Last Admin: 11/16/24 08:01 Dose: 5 mg Polyethylene Glycol (Polyethylene Glycol 3350 17 Gm Powd.Pack) 17 gm PO DAILY [facility] Last Admin: 11/16/24 08:01 Dose: 17 gm Senna (Sennosides 8.6 Mg Tablet) 8.6 mg PO BEDTIME PRN PRN Reason: Constipation Trazodone HCl (Trazodone Hcl 50 Mg Tablet) 50 mg PO BEDTIME MRX1 PRN PRN Reason: Insomnia Last Admin: 11/14/24 21:29 Dose: 50 mg Vitamin D (Cholecalciferol (Vitamin D3) 10 Mcg Tablet) 10 mcg PO DAILY [facility] Last Admin: 11/16/24 08:01 Dose: 10 mcg Home Medications ?Medication ?Instructions ?Recorded ?Confirmed ?Last Taken ?Type omeprazole 40 mg capsule,delayed 40 mg PO DAILY@0630 11/14/24 11/14/24 Unknown History release polyethylene glycol 3350 17 17 g PO DAILY 11/14/24 11/14/24 Unknown History gram/dose oral powder (Miralax) sennosides 8.6 mg tablet (Senna 8.6 mg PO BEDTIME PRN Constipation 11/14/24 11/14/24 Unknown History Lax) Physical Exam Vital Signs and Narrative: Vital Signs: Last Vital Signs Temp 97.9 F 11/16/24 07:55 Pulse 100 11/16/24 07:55 Resp 18 11/16/24 07:55 BP 139/77 11/16/24 07:55 Pulse Ox 96 11/16/24 07:55 O2 Del Method Room Air 11/16/24 07:55 BMI result Body Mass Index 27.4 General: AOx3, no acute distress Resp: CTA bilaterally CVS: S1, S2, RRR GI: +BS, NT, no distention Skin: Warm, dry Neuro: Cranial nerves II-XII grossly intact bilaterally. Motor grossly intact bilaterally Extremities: No edema Psych: Anxious, agitated Results Labs 11/14/24 11:19 11/14/24 18:48 Assessment and Plan (1) Pre-op evaluation: Status: Acute Plan The pt is an 79-year-old male with PMH significant for prostate cancer, pulmonary embolism on Eliquis, vertigo, GERD, HLD, and MDD with psychotic features who was admitted to [facility] for increased anxiety and panic attacks. Hospitalist consult for ECT risk stratification. ECT Risk Stratification Pt with long hx of ECT Currently on monthly ECT maintenance outpatient, last ECT session 2.5 weeks ago RCRI 0 points No indication for additional cardiac workup Given PMH, HPI, and recent ECT sessions, there are no contraindications for the planned procedure Thank you for allowing us to participate in the care of this patient. Signing off at this time. Please re-consult if any acute complaints or issues arise.
--- NOTE | 2024-11-16 19:55 | ECG_ITS ---
Test Reason : CP Blood Pressure : */* mmHG Vent. Rate : 106 BPM Atrial Rate : 106 BPM P-R Int : 182 ms QRS Dur : 90 ms QT Int : 344 ms P-R-T Axes : 26 -36 32 degrees QTcB Int : 456 ms Sinus tachycardia Left axis deviation Abnormal ECG When compared with ECG of 14-Nov-2024 11:00, Borderline criteria for Anterior infarct are no longer Present Referred By: Kalyani Gan Electronically Signed By: RAJIV RUIZ MD
[2024-11-16 20:00] VITALS: BP 119/69; PULSE 111; RESP 18; TEMP 36.6; O2SAT 93
[2024-11-16] MEDS: traZODone HCL 50 MG TABLET PO (20:18)
[2024-11-16] MEDS: Atorvastatin Calcium 40 MG TABLET PO (20:18)
[2024-11-16] MEDS: Melatonin 3 MG TABLET 6 MG PO (20:18)
[2024-11-16] MEDS: OLANZapine 7.5 MG TABLET PO (20:18)
[2024-11-16] MEDS: Nortriptyline HCl 25 MG CAPSULE 75 MG PO (20:18)
[2024-11-17] MEDS: traZODone HCL 50 MG TABLET PO (00:57)
[2024-11-17] MEDS: Omeprazole 40 MG CAPSULE.DR PO (06:23)
[2024-11-17 07:00] VITALS: BMI 27.4
[2024-11-17 09:46] VITALS: BP 135/67; PULSE 101; RESP 18; TEMP 36.7; O2SAT 93
[2024-11-17] MEDS: polyethylene glycoL 3350 17 GM POWD.PACK PO (09:48)
[2024-11-17] MEDS: Docusate Sodium 100 MG CAPSULE PO ×2 (09:48→20:34)
[2024-11-17] MEDS: Apixaban 5 MG TABLET PO ×2 (09:48→20:34)
[2024-11-17] MEDS: Ferrous Sulfate 324 MG TABLET.DR PO (09:48)
[2024-11-17] MEDS: oxyBUTYnin chloride 5 MG TABLET PO (09:48)
[2024-11-17] MEDS: Cholecalciferol (Vitamin D3) 10 MCG TABLET PO (09:48)
[2024-11-17] MEDS: Finasteride 5 MG TABLET PO (09:48)
--- NOTE | 2024-11-17 12:10 | P.PNPSI_ITS ---
Subjective Subjective Date of Service: 11/17/24 Reason For Visit: SI Subjective Notes: Conditional Voluntary Interim History: The nursing staff reported the patient remains very depressed isolative in his bed. He is perseverative stating that he wants to . On interview, the patient remains hypoactive, we are going to restart ECT Mental Status Exam Mental Status Exam Patient Appearance: Appropriate Patient Orientation: Person and Situation Level of Consciousness: Awake and Lethargic Patient Behavior: Guarded Mood Description: Withdrawn Affect Description: Blunted Patient Cognition Impaired: Yes Ability to Follow Directions: Good Speech Pattern: Impoverished and Monotone Hallucinations: None Delusions: Ideas of Reference Thought Process: Distracted and Slowed Thinking Thought Content: positive for [place] and positive for Poverty of Content Judgement: Fair Diagnostics Vital Signs (24Hr): Vital Signs - 24 hr 11/16/24 20:00 11/17/24 09:46 Temperature 97.9 F 98.1 F Pulse Rate 111 H 101 H Respiratory Rate 18 18 Blood Pressure 119/69 135/67 Pulse Oximetry 93 93 Oxygen Delivery Method Room Air Room Air BMI result Body Mass Index 27.4 Labs 11/14/24 11:19 11/14/24 18:48 Medications Medications Current Medications Acetaminophen (Acetaminophen 325 Mg Tablet) 650 mg PO Q6H PRN PRN Reason: Headache/Pain, Scale 1-10 Al Hydroxide/Mg Hydroxide (Magnesium Hydrox/Alum Hydrox 30 Ml Oral.Susp) 30 ml PO Q6H PRN PRN Reason: Heartburn/Nausea Apixaban (Apixaban 5 Mg Tablet) 5 mg PO BID [facility] Last Admin: 11/17/24 09:48 Dose: 5 mg Atorvastatin Calcium (Atorvastatin Calcium 40 Mg Tablet) 40 mg PO BEDTIME [facility] Last Admin: 11/16/24 20:18 Dose: 40 mg Docusate Sodium (Docusate Sodium 100 Mg Capsule) 100 mg PO BID [facility] Last Admin: 11/17/24 09:48 Dose: 100 mg Ferrous Sulfate (Ferrous Sulfate 324 Mg Tablet.Dr) 324 mg PO DAILY [facility] Last Admin: 11/17/24 09:48 Dose: 324 mg Finasteride (Finasteride 5 Mg Tablet) 5 mg PO DAILY [facility] Last Admin: 11/17/24 09:48 Dose: 5 mg Magnesium Hydroxide (Milk Of Magnesia 30 Ml Oral.Susp) 30 ml PO DAILY PRN PRN Reason: Constipation Melatonin (Melatonin 3 Mg Tablet) 6 mg PO BEDTIME [facility] Last Admin: 11/16/24 20:18 Dose: 6 mg Nortriptyline HCl (Nortriptyline Hcl 25 Mg Capsule) 75 mg PO BEDTIME [facility] Last Admin: 11/16/24 20:18 Dose: 75 mg Olanzapine (Olanzapine 7.5 Mg Tablet) 7.5 mg PO BEDTIME [facility] Last Admin: 11/16/24 20:18 Dose: 7.5 mg Omeprazole (Omeprazole 40 Mg Capsule.) 40 mg PO DAILY@0630 [facility] Last Admin: 11/17/24 06:23 Dose: 40 mg Oxybutynin Chloride (Oxybutynin Chloride 5 Mg Tablet) 5 mg PO DAILY [facility] Last Admin: 11/17/24 09:48 Dose: 5 mg Polyethylene Glycol (Polyethylene Glycol 3350 17 Gm Powd.Pack) 17 gm PO DAILY [facility] Last Admin: 11/17/24 09:48 Dose: 17 gm Senna (Sennosides 8.6 Mg Tablet) 8.6 mg PO BEDTIME PRN PRN Reason: Constipation Trazodone HCl (Trazodone Hcl 50 Mg Tablet) 50 mg PO BEDTIME MRX1 PRN PRN Reason: Insomnia Last Admin: 11/17/24 00:57 Dose: 50 mg Vitamin D (Cholecalciferol (Vitamin D3) 10 Mcg Tablet) 10 mcg PO DAILY [facility] Last Admin: 11/17/24 09:48 Dose: 10 mcg Allergies Allergies Allergy/AdvReac Type Severity Reaction Status Date / Time No Known Allergies Allergy Verified 11/14/24 10:15 [No Known Allergies*] Assessment & Plan Assessment & Plan (1) Pre-op evaluation: Status: Acute Code(s): Z01.818 - Encounter for other preprocedural examination Plan The pt is an 79-year-old male with PMH significant for prostate cancer, pulmonary embolism on Eliquis, vertigo, GERD, HLD, and MDD with psychotic features who was admitted to [facility] for increased anxiety and panic attacks. Hospitalist consult for ECT risk stratification. ECT Risk Stratification Pt with long hx of ECT Currently on monthly ECT maintenance outpatient, last ECT session 2.5 weeks ago RCRI 0 points No indication for additional cardiac workup Given PMH, HPI, and recent ECT sessions, there are no contraindications for the planned procedure Plan 1. Waiting for nortriptyline level. 2. Gather collateral information. I contact Dr. Sims who is on vacation who is coming back next Thursday. We will restart ECT as soon as possible. Reason for continued inpatient stay Substantial Risk for: inability to function, rapid decompensation and med/psych decompensation Time Spent With Patient Time: Total time managing care of this patient today __20__ minutes.
[2024-11-17 20:00] VITALS: BP 116/70; PULSE 97; RESP 16; TEMP 36.6; O2SAT 95
[2024-11-17] MEDS: Nortriptyline HCl 25 MG CAPSULE 75 MG PO (20:33)
[2024-11-17] MEDS: Atorvastatin Calcium 40 MG TABLET PO (20:33)
[2024-11-17] MEDS: OLANZapine 7.5 MG TABLET PO (20:33)
[2024-11-17] MEDS: Melatonin 3 MG TABLET 6 MG PO (20:33)
[2024-11-17 21:02] LABS: Glucose, Whole Blood 127 mg/dL (60-115)
--- NOTE | 2024-11-18 | ECG_ITS ---
Test Reason : ST Blood Pressure : */* mmHG Vent. Rate : 99 BPM Atrial Rate : 99 BPM P-R Int : 192 ms QRS Dur : 92 ms QT Int : 366 ms P-R-T Axes : 57 -39 23 degrees QTcB Int : 469 ms Poor data quality, interpretation may be adversely affected Sinus rhythm with Premature atrial complexes Left axis deviation Abnormal ECG No previous ECGs available Referred By: Hannah Mayes Electronically Signed By: RAJIV RUIZ MD
[2024-11-18 08:00] VITALS: BP 134/85; PULSE 109; RESP 20; TEMP 36.4; O2SAT 97
--- NOTE | 2024-11-18 13:25 | HO.PSYCHPN ---
Subjective Subjective Date of Service: 11/18/24 Reason For Visit: SI Subjective Notes: Conditional Voluntary Interim History: The nursing staff reported the patient has with flat affect slept 7 hours compliant with treatment. He looks crampy at times. The social media sr strategy manager reported that he is affirmed healthcare proxy will approve ECT. We are going to arrange the start of ECT for next Thursday. Mental Status Exam Mental Status Exam Patient Appearance: Unkempt Patient Orientation: Person and Situation Level of Consciousness: Awake and Appropriate Patient Behavior: Guarded and Passive Mood Description: Withdrawn Affect Description: Blunted Patient Cognition Impaired: Yes Ability to Follow Directions: Good Speech Pattern: Clear Hallucinations: None Delusions: Paranoid Ideation and Ideas of Reference Thought Process: Distracted and Slowed Thinking Thought Content: positive for [place] and positive for Poverty of Content Judgement: Fair Diagnostics Vital Signs (24Hr): Vital Signs - 24 hr 11/17/24 20:00 11/18/24 08:00 Temperature 97.8 F 97.6 F Pulse Rate 97 109 H Respiratory Rate 16 20 Blood Pressure 116/70 134/85 Pulse Oximetry 95 97 Oxygen Delivery Method Room Air Room Air BMI result Body Mass Index 27.4 Labs 11/14/24 11:19 11/14/24 18:48 Labs: Laboratory Results - last 48 hr 11/17/24 20:32 POC Glucose 127 H Medications Medications Current Medications Acetaminophen (Acetaminophen 325 Mg Tablet) 650 mg PO Q6H PRN PRN Reason: Headache/Pain, Scale 1-10 Al Hydroxide/Mg Hydroxide (Magnesium Hydrox/Alum Hydrox 30 Ml Oral.Susp) 30 ml PO Q6H PRN PRN Reason: Heartburn/Nausea Apixaban (Apixaban 5 Mg Tablet) 5 mg PO BID [facility] Last Admin: 11/18/24 12:21 Dose: Not Given Atorvastatin Calcium (Atorvastatin Calcium 40 Mg Tablet) 40 mg PO BEDTIME [facility] Last Admin: 11/17/24 20:33 Dose: 40 mg Docusate Sodium (Docusate Sodium 100 Mg Capsule) 100 mg PO BID [facility] Last Admin: 11/18/24 12:21 Dose: Not Given Ferrous Sulfate (Ferrous Sulfate 324 Mg Tablet.) 324 mg PO DAILY [facility] Last Admin: 11/18/24 12:21 Dose: Not Given Finasteride (Finasteride 5 Mg Tablet) 5 mg PO DAILY [facility] Last Admin: 11/18/24 12:21 Dose: Not Given Magnesium Hydroxide (Milk Of Magnesia 30 Ml Oral.Susp) 30 ml PO DAILY PRN PRN Reason: Constipation Melatonin (Melatonin 3 Mg Tablet) 6 mg PO BEDTIME [facility] Last Admin: 11/17/24 20:33 Dose: 6 mg Nortriptyline HCl (Nortriptyline Hcl 25 Mg Capsule) 75 mg PO BEDTIME [facility] Last Admin: 11/17/24 20:33 Dose: 75 mg Olanzapine (Olanzapine 7.5 Mg Tablet) 7.5 mg PO BEDTIME [facility] Last Admin: 11/17/24 20:33 Dose: 7.5 mg Omeprazole (Omeprazole 40 Mg Capsule.Dr) 40 mg PO DAILY@0630 [facility] Last Admin: 11/18/24 05:23 Dose: Not Given Oxybutynin Chloride (Oxybutynin Chloride 5 Mg Tablet) 5 mg PO DAILY [facility] Last Admin: 11/18/24 12:22 Dose: Not Given Polyethylene Glycol (Polyethylene Glycol 3350 17 Gm Powd.Pack) 17 gm PO DAILY [facility] Last Admin: 11/18/24 12:22 Dose: Not Given Senna (Sennosides 8.6 Mg Tablet) 8.6 mg PO BEDTIME PRN PRN Reason: Constipation Trazodone HCl (Trazodone Hcl 50 Mg Tablet) 50 mg PO BEDTIME MRX1 PRN PRN Reason: Insomnia Last Admin: 11/17/24 00:57 Dose: 50 mg Vitamin D (Cholecalciferol (Vitamin D3) 10 Mcg Tablet) 10 mcg PO DAILY [facility] Last Admin: 11/18/24 12:21 Dose: Not Given Allergies Allergies Allergy/AdvReac Type Severity Reaction Status Date / Time No Known Allergies Allergy Verified 11/14/24 10:15 [No Known Allergies*] Assessment & Plan Assessment & Plan (1) Pre-op evaluation: Status: Acute Code(s): Z01.818 - Encounter for other preprocedural examination Plan The pt is an 79-year-old male with PMH significant for prostate cancer, pulmonary embolism on Eliquis, vertigo, GERD, HLD, and MDD with psychotic features who was admitted to [facility] psych for increased anxiety and panic attacks. Hospitalist consult for ECT risk stratification. ECT Risk Stratification Pt with long hx of ECT Currently on monthly ECT maintenance outpatient, last ECT session 2.5 weeks ago RCRI 0 points No indication for additional cardiac workup Given PMH, HPI, and recent ECT sessions, there are no contraindications for the planned procedure Plan 1. Waiting for nortriptyline level. 2. Gather collateral information. I contact Dr. Sims who is on vacation who is coming back next Thursday 3. We will restart ECT as soon as possible. Reason for continued inpatient stay Substantial Risk for: inability to function, rapid decompensation and med/psych decompensation Time Spent With Patient Time: Total time managing care of this patient today _20___ minutes.
[2024-11-18 20:00] VITALS: BP 102/60; PULSE 100; RESP 16; TEMP 36.7; O2SAT 95
[2024-11-18] MEDS: Nortriptyline HCl 25 MG CAPSULE 75 MG PO (21:23)
[2024-11-18] MEDS: Atorvastatin Calcium 40 MG TABLET PO (21:24)
[2024-11-18] MEDS: Apixaban 5 MG TABLET PO (21:24)
[2024-11-18] MEDS: Melatonin 3 MG TABLET 6 MG PO (21:24)
[2024-11-18] MEDS: Docusate Sodium 100 MG CAPSULE PO (21:24)
[2024-11-18] MEDS: OLANZapine 7.5 MG TABLET PO (21:28)
[2024-11-19] MEDS: Omeprazole 40 MG CAPSULE.DR PO (05:54)
[2024-11-19] MEDS: Docusate Sodium 100 MG CAPSULE PO ×2 (08:56→20:07)
[2024-11-19] MEDS: Cholecalciferol (Vitamin D3) 10 MCG TABLET PO (08:56)
[2024-11-19] MEDS: oxyBUTYnin chloride 5 MG TABLET PO (08:56)
[2024-11-19] MEDS: Apixaban 5 MG TABLET PO ×2 (08:56→20:07)
[2024-11-19] MEDS: Ferrous Sulfate 324 MG TABLET.DR PO (08:56)
[2024-11-19] MEDS: polyethylene glycoL 3350 17 GM POWD.PACK PO (08:57)
[2024-11-19] MEDS: Finasteride 5 MG TABLET PO (08:58)
[2024-11-19 09:29] VITALS: BP 139/56; PULSE 93; RESP 20; TEMP 36.4; O2SAT 96
--- NOTE | 2024-11-19 10:57 | P.PNPSI_ITS ---
Subjective Subjective Date of Service: 11/19/24 Reason For Visit: SI Subjective Notes: Conditional Voluntary Healthcare Proxy: Yes Interim History: Patient was seen and discussed in rounds today. Records and plans were reviewed. He continues to be mostly in bed, depressed and has been approved by his healthcare proxy for ECT. His ECT scheduled for yesterday did not happen even in the afternoon and he was upset about it. No changes were made today Review of Systems Review of Systems Negative except for that which is stated in the [facility] Mental Status Exam Mental Status Exam Patient Appearance: Unkempt Patient Orientation: Person and Situation Level of Consciousness: Awake and Appropriate Patient Behavior: Guarded and Passive Mood Description: Withdrawn Affect Description: Blunted Patient Cognition Impaired: Yes Ability to Follow Directions: Good Speech Pattern: Clear Hallucinations: None Delusions: Paranoid Ideation and Ideas of Reference Thought Process: Distracted and Slowed Thinking Thought Content: positive for [place] and positive for Poverty of Content Judgement: Fair Diagnostics Vital Signs (24Hr): Vital Signs - 24 hr 11/18/24 20:00 11/19/24 09:29 Temperature 98.1 F 97.6 F Pulse Rate 100 93 Respiratory Rate 16 20 Blood Pressure 102/60 139/56 L Pulse Oximetry 95 96 Oxygen Delivery Method Room Air Room Air BMI result Body Mass Index 27.4 Labs 11/14/24 11:19 11/14/24 18:48 Labs: Laboratory Results - last 48 hr 11/17/24 20:32 POC Glucose 127 H Medications Medications Current Medications Acetaminophen (Acetaminophen 325 Mg Tablet) 650 mg PO Q6H PRN PRN Reason: Headache/Pain, Scale 1-10 Al Hydroxide/Mg Hydroxide (Magnesium Hydrox/Alum Hydrox 30 Ml Oral.Susp) 30 ml PO Q6H PRN PRN Reason: Heartburn/Nausea Apixaban (Apixaban 5 Mg Tablet) 5 mg PO BID [facility] Last Admin: 11/19/24 08:56 Dose: 5 mg Atorvastatin Calcium (Atorvastatin Calcium 40 Mg Tablet) 40 mg PO BEDTIME [facility] Last Admin: 11/18/24 21:24 Dose: 40 mg Docusate Sodium (Docusate Sodium 100 Mg Capsule) 100 mg PO BID [facility] Last Admin: 11/19/24 08:56 Dose: 100 mg Ferrous Sulfate (Ferrous Sulfate 324 Mg Tablet.Dr) 324 mg PO DAILY [facility] Last Admin: 11/19/24 08:56 Dose: 324 mg Finasteride (Finasteride 5 Mg Tablet) 5 mg PO DAILY [facility] Last Admin: 11/19/24 08:58 Dose: 5 mg Magnesium Hydroxide (Milk Of Magnesia 30 Ml Oral.Susp) 30 ml PO DAILY PRN PRN Reason: Constipation Melatonin (Melatonin 3 Mg Tablet) 6 mg PO BEDTIME [facility] Last Admin: 11/18/24 21:24 Dose: 6 mg Nortriptyline HCl (Nortriptyline Hcl 25 Mg Capsule) 75 mg PO BEDTIME [facility] Last Admin: 11/18/24 21:23 Dose: 75 mg Olanzapine (Olanzapine 7.5 Mg Tablet) 7.5 mg PO BEDTIME [facility] Last Admin: 11/18/24 21:28 Dose: 7.5 mg Omeprazole (Omeprazole 40 Mg Capsule.Dr) 40 mg PO DAILY@0630 [facility] Last Admin: 11/19/24 05:54 Dose: 40 mg Oxybutynin Chloride (Oxybutynin Chloride 5 Mg Tablet) 5 mg PO DAILY [facility] Last Admin: 11/19/24 08:56 Dose: 5 mg Polyethylene Glycol (Polyethylene Glycol 3350 17 Gm Powd.Pack) 17 gm PO DAILY [facility] Last Admin: 11/19/24 08:57 Dose: 17 gm Senna (Sennosides 8.6 Mg Tablet) 8.6 mg PO BEDTIME PRN PRN Reason: Constipation Trazodone HCl (Trazodone Hcl 50 Mg Tablet) 50 mg PO BEDTIME MRX1 PRN PRN Reason: Insomnia Last Admin: 11/17/24 00:57 Dose: 50 mg Vitamin D (Cholecalciferol (Vitamin D3) 10 Mcg Tablet) 10 mcg PO DAILY [facility] Last Admin: 11/19/24 08:56 Dose: 10 mcg Allergies Allergies Allergy/AdvReac Type Severity Reaction Status Date / Time No Known Allergies Allergy Verified 11/14/24 10:15 [No Known Allergies*] Assessment & Plan Assessment & Plan (1) Pre-op evaluation: Status: Acute Code(s): Z01.818 - Encounter for other preprocedural examination Plan The pt is an 79-year-old male with PMH significant for prostate cancer, pulmonary embolism on Eliquis, vertigo, GERD, HLD, and MDD with psychotic features who was admitted to [facility] psych for increased anxiety and panic attacks. Hospitalist consult for ECT risk stratification. ECT Risk Stratification Pt with long hx of ECT Currently on monthly ECT maintenance outpatient, last ECT session 2.5 weeks ago RCRI 0 points No indication for additional cardiac workup Given PMH, HPI, and recent ECT sessions, there are no contraindications for the planned procedure Plan 1. Waiting for nortriptyline level. 2. Gather collateral information. I contact Dr. Sims who is on vacation who is coming back next Thursday 3. We will restart ECT as soon as possible. 11/19 continue current plans and regimen. Scheduled for ECT mid week next week Reason for continued inpatient stay Substantial Risk for: med/psych decompensation Time Spent With Patient Time: Total time managing care of this patient today ____ minutes.
[2024-11-19] MEDS: OLANZapine 5 MG TABLET PO (13:25)
[2024-11-19 20:00] VITALS: BP 127/67; PULSE 116; RESP 20; TEMP 35.9; O2SAT 94
[2024-11-19] MEDS: Melatonin 3 MG TABLET 6 MG PO (20:04)
[2024-11-19] MEDS: OLANZapine 7.5 MG TABLET PO (20:05)
[2024-11-19] MEDS: Atorvastatin Calcium 40 MG TABLET PO (20:06)
[2024-11-19] MEDS: Nortriptyline HCl 25 MG CAPSULE 75 MG PO (20:06)
[2024-11-19] MEDS: traZODone HCL 50 MG TABLET PO (20:06)
[2024-11-19] MEDS: LORazepam 1 MG TABLET PO (20:50)
[2024-11-20 05:09] LABS: Nortriptyline 58 mcg/L (50-150)
[2024-11-20] MEDS: Omeprazole 40 MG CAPSULE.DR PO (05:58)
[2024-11-20 08:00] VITALS: BP 131/94; PULSE 135; RESP 18; TEMP 36.7; O2SAT 96
[2024-11-20] MEDS: Apixaban 5 MG TABLET PO ×2 (08:28→20:04)
[2024-11-20] MEDS: polyethylene glycoL 3350 17 GM POWD.PACK PO (08:28)
[2024-11-20] MEDS: Ferrous Sulfate 324 MG TABLET.DR PO (08:29)
[2024-11-20] MEDS: Docusate Sodium 100 MG CAPSULE PO ×2 (08:29→20:05)
[2024-11-20] MEDS: oxyBUTYnin chloride 5 MG TABLET PO (08:29)
[2024-11-20] MEDS: Cholecalciferol (Vitamin D3) 10 MCG TABLET PO (08:29)
[2024-11-20] MEDS: Finasteride 5 MG TABLET PO (08:30)
--- NOTE | 2024-11-20 11:00 | HO.PSYCHPN ---
Subjective Subjective Date of Service: 11/20/24 Reason For Visit: SI Subjective Notes: Conditional Voluntary Healthcare Proxy: Yes Interim History: Patient was seen and discussed in rounds today. Records and plans were reviewed. He had a difficult afternoon yesterday and was feeling badly and then became anxious had a bout of vomiting and was nauseous. Zofran was ordered which was helpful and he denies any nausea right now. Ativan was helpful finally with his sleep and anxiety. He continues to feel depressed and somewhat anxious. Hopefully ECT can be started this week. No changes were made today Review of Systems Review of Systems Anxiety Yes all other systems are reviewed and are negative Mental Status Exam Mental Status Exam Patient Appearance: Unkempt Patient Orientation: Person and Situation Level of Consciousness: Awake and Appropriate Patient Behavior: Guarded and Passive Mood Description: Withdrawn Affect Description: Blunted Patient Cognition Impaired: Yes Ability to Follow Directions: Good Speech Pattern: Clear Hallucinations: None Delusions: Paranoid Ideation and Ideas of Reference Thought Process: Distracted and Slowed Thinking Thought Content: positive for [place] and positive for Poverty of Content Judgement: Fair Diagnostics Vital Signs (24Hr): Vital Signs - 24 hr 11/19/24 20:00 11/20/24 08:00 Temperature 96.7 F L 98.1 F Pulse Rate 116 H 135 H Respiratory Rate 20 18 Blood Pressure 127/67 131/94 H Pulse Oximetry 94 96 Oxygen Delivery Method Room Air Room Air BMI result Body Mass Index 27.4 Labs 11/14/24 11:19 11/14/24 18:48 Labs: Laboratory Results - last 48 hr 11/16/24 07:28 Nortriptyline 58 Medications Medications Current Medications Acetaminophen (Acetaminophen 325 Mg Tablet) 650 mg PO Q6H PRN PRN Reason: Headache/Pain, Scale 1-10 Al Hydroxide/Mg Hydroxide (Magnesium Hydrox/Alum Hydrox 30 Ml Oral.Susp) 30 ml PO Q6H PRN PRN Reason: Heartburn/Nausea Apixaban (Apixaban 5 Mg Tablet) 5 mg PO BID [facility] Last Admin: 11/20/24 08:28 Dose: 5 mg Atorvastatin Calcium (Atorvastatin Calcium 40 Mg Tablet) 40 mg PO BEDTIME [facility] Last Admin: 11/19/24 20:06 Dose: 40 mg Docusate Sodium (Docusate Sodium 100 Mg Capsule) 100 mg PO BID [facility] Last Admin: 11/20/24 08:29 Dose: 100 mg Ferrous Sulfate (Ferrous Sulfate 324 Mg Tablet.) 324 mg PO DAILY [facility] Last Admin: 11/20/24 08:29 Dose: 324 mg Finasteride (Finasteride 5 Mg Tablet) 5 mg PO DAILY [facility] Last Admin: 11/20/24 08:30 Dose: 5 mg Magnesium Hydroxide (Milk Of Magnesia 30 Ml Oral.Susp) 30 ml PO DAILY PRN PRN Reason: Constipation Melatonin (Melatonin 3 Mg Tablet) 6 mg PO BEDTIME [facility] Last Admin: 11/19/24 20:04 Dose: 6 mg Nortriptyline HCl (Nortriptyline Hcl 25 Mg Capsule) 75 mg PO BEDTIME [facility] Last Admin: 11/19/24 20:06 Dose: 75 mg Olanzapine (Olanzapine 7.5 Mg Tablet) 7.5 mg PO BEDTIME [facility] Last Admin: 11/19/24 20:05 Dose: 7.5 mg Olanzapine (Olanzapine 5 Mg Tablet) 5 mg PO DAILY PRN PRN Reason: anxiety/restlessness Last Admin: 11/19/24 13:25 Dose: 5 mg Omeprazole (Omeprazole 40 Mg Capsule.Dr) 40 mg PO DAILY@0630 [facility] Last Admin: 11/20/24 05:58 Dose: 40 mg Ondansetron HCl (Ondansetron Odt 4 Mg Tab.Rapdis) 4 mg TRANSLINGU Q12H PRN PRN Reason: Nausea and Vomiting Oxybutynin Chloride (Oxybutynin Chloride 5 Mg Tablet) 5 mg PO DAILY [facility] Last Admin: 11/20/24 08:29 Dose: 5 mg Polyethylene Glycol (Polyethylene Glycol 3350 17 Gm Powd.Pack) 17 gm PO DAILY [facility] Last Admin: 11/20/24 08:28 Dose: 17 gm Senna (Sennosides 8.6 Mg Tablet) 8.6 mg PO BEDTIME PRN PRN Reason: Constipation Trazodone HCl (Trazodone Hcl 50 Mg Tablet) 50 mg PO BEDTIME MRX1 PRN PRN Reason: Insomnia Last Admin: 11/19/24 20:06 Dose: 50 mg Vitamin D (Cholecalciferol (Vitamin D3) 10 Mcg Tablet) 10 mcg PO DAILY [facility] Last Admin: 11/20/24 08:29 Dose: 10 mcg Allergies Allergies Allergy/AdvReac Type Severity Reaction Status Date / Time No Known Allergies Allergy Verified 11/14/24 10:15 [No Known Allergies*] Assessment & Plan Assessment & Plan (1) Pre-op evaluation: Status: Acute Code(s): Z01.818 - Encounter for other preprocedural examination Plan The pt is an 79-year-old male with PMH significant for prostate cancer, pulmonary embolism on Eliquis, vertigo, GERD, HLD, and MDD with psychotic features who was admitted to [facility] for increased anxiety and panic attacks. Hospitalist consult for ECT risk stratification. ECT Risk Stratification Pt with long hx of ECT Currently on monthly ECT maintenance outpatient, last ECT session 2.5 weeks ago RCRI 0 points No indication for additional cardiac workup Given PMH, HPI, and recent ECT sessions, there are no contraindications for the planned procedure Plan 1. Waiting for nortriptyline level. 2. Gather collateral information. I contact Dr. Sims who is on vacation who is coming back next Thursday 3. We will restart ECT as soon as possible. 11/19 continue current plans and regimen. Scheduled for ECT mid week next week 11/20: Continue current regimen and plans. Reason for continued inpatient stay Substantial Risk for: med/psych decompensation Time Spent With Patient Time: Total time managing care of this patient today ____ minutes.
[2024-11-20] MEDS: OLANZapine 5 MG TABLET PO (16:48)
[2024-11-20 19:24] VITALS: BP 119/69; PULSE 99; RESP 18; TEMP 36.4; O2SAT 100
[2024-11-20] MEDS: Nortriptyline HCl 25 MG CAPSULE 75 MG PO (20:04)
[2024-11-20] MEDS: OLANZapine 7.5 MG TABLET PO (20:04)
[2024-11-20] MEDS: traZODone HCL 50 MG TABLET PO (20:05)
[2024-11-20] MEDS: Atorvastatin Calcium 40 MG TABLET PO (20:05)
[2024-11-20] MEDS: Melatonin 3 MG TABLET 6 MG PO (20:05)
[2024-11-20] MEDS: LORazepam 0.5 MG TABLET PO (20:46)
[2024-11-21] MEDS: traZODone HCL 50 MG TABLET PO ×2 (00:58→20:39)
[2024-11-21] MEDS: OLANZapine 5 MG TABLET PO ×2 (00:59→20:39)
[2024-11-21] MEDS: Omeprazole 40 MG CAPSULE.DR PO (06:00)
[2024-11-21 07:50] VITALS: BP 106/56; PULSE 105; RESP 18; TEMP 36.3; O2SAT 94
[2024-11-21] MEDS: Cholecalciferol (Vitamin D3) 10 MCG TABLET PO (07:56)
[2024-11-21] MEDS: Apixaban 5 MG TABLET PO ×2 (07:56→20:39)
[2024-11-21] MEDS: Docusate Sodium 100 MG CAPSULE PO ×2 (07:56→20:39)
[2024-11-21] MEDS: oxyBUTYnin chloride 5 MG TABLET PO (07:56)
[2024-11-21] MEDS: Ferrous Sulfate 324 MG TABLET.DR PO (07:56)
[2024-11-21] MEDS: polyethylene glycoL 3350 17 GM POWD.PACK PO (07:59)
[2024-11-21] MEDS: Finasteride 5 MG TABLET PO (08:18)
[2024-11-21] MEDS: LORazepam 1 MG TABLET PO (08:34)
--- NOTE | 2024-11-21 12:14 | HO.PSYCHPN ---
Subjective Subjective Date of Service: 11/21/24 Reason For Visit: SI Subjective Notes: Conditional Voluntary Healthcare Proxy: Yes Interim History: Patient was seen and discussed in rounds today. Records and plans were reviewed. He continues to be extremely anxious, exit seeking. I increased his Zyprexa to 5 mg b.i.d. p.r.n.. He has been getting some doses of Ativan throughout the weekend but it appears that the Zyprexa has been more effective. He is scheduled to start ECT is weak. Passive suicidal ideations. Also staff have been wondering about difficulty swallowing and a speech pathology consult will be done Review of Systems Review of Systems Anxiety. Possible swallowing problems Yes all other systems are reviewed and are negative Mental Status Exam Mental Status Exam Patient Appearance: Unkempt Patient Orientation: Person and Situation Level of Consciousness: Awake and Appropriate Patient Behavior: Guarded and Passive Mood Description: Withdrawn Affect Description: Blunted Patient Cognition Impaired: Yes Ability to Follow Directions: Good Speech Pattern: Clear Hallucinations: None Delusions: Paranoid Ideation and Ideas of Reference Thought Process: Distracted and Slowed Thinking Thought Content: positive for [place] and positive for Poverty of Content Judgement: Fair Diagnostics Vital Signs (24Hr): Vital Signs - 24 hr 11/20/24 19:24 11/21/24 07:50 Temperature 97.5 F 97.4 F Pulse Rate 99 105 H Respiratory Rate 18 18 Blood Pressure 119/69 106/56 L Pulse Oximetry 100 94 Oxygen Delivery Method Room Air Room Air BMI result Body Mass Index 27.4 Labs 11/14/24 11:19 11/14/24 18:48 Labs: Laboratory Results - last 48 hr 11/16/24 07:28 Nortriptyline 58 Medications Medications Current Medications Acetaminophen (Acetaminophen 325 Mg Tablet) 650 mg PO Q6H PRN PRN Reason: Headache/Pain, Scale 1-10 Al Hydroxide/Mg Hydroxide (Magnesium Hydrox/Alum Hydrox 30 Ml Oral.Susp) 30 ml PO Q6H PRN PRN Reason: Heartburn/Nausea Apixaban (Apixaban 5 Mg Tablet) 5 mg PO BID [facility] Last Admin: 11/21/24 07:56 Dose: 5 mg Atorvastatin Calcium (Atorvastatin Calcium 40 Mg Tablet) 40 mg PO BEDTIME [facility] Last Admin: 11/20/24 20:05 Dose: 40 mg Docusate Sodium (Docusate Sodium 100 Mg Capsule) 100 mg PO BID [facility] Last Admin: 11/21/24 07:56 Dose: 100 mg Ferrous Sulfate (Ferrous Sulfate 324 Mg Tablet.) 324 mg PO DAILY [facility] Last Admin: 11/21/24 07:56 Dose: 324 mg Finasteride (Finasteride 5 Mg Tablet) 5 mg PO DAILY [facility] Last Admin: 11/21/24 08:18 Dose: 5 mg Magnesium Hydroxide (Milk Of Magnesia 30 Ml Oral.Susp) 30 ml PO DAILY PRN PRN Reason: Constipation Melatonin (Melatonin 3 Mg Tablet) 6 mg PO BEDTIME [facility] Last Admin: 11/20/24 20:05 Dose: 6 mg Nortriptyline HCl (Nortriptyline Hcl 25 Mg Capsule) 75 mg PO BEDTIME [facility] Last Admin: 11/20/24 20:04 Dose: 75 mg Olanzapine (Olanzapine 7.5 Mg Tablet) 7.5 mg PO BEDTIME [facility] Last Admin: 11/20/24 20:04 Dose: 7.5 mg Olanzapine (Olanzapine 5 Mg Tablet) 5 mg PO DAILY PRN PRN Reason: anxiety/restlessness Last Admin: 11/21/24 00:59 Dose: 5 mg Omeprazole (Omeprazole 40 Mg Capsule.) 40 mg PO DAILY@0630 [facility] Last Admin: 11/21/24 06:00 Dose: 40 mg Ondansetron HCl (Ondansetron Odt 4 Mg Tab.Rapdis) 4 mg TRANSLINGU Q12H PRN PRN Reason: Nausea and Vomiting Oxybutynin Chloride (Oxybutynin Chloride 5 Mg Tablet) 5 mg PO DAILY [facility] Last Admin: 11/21/24 07:56 Dose: 5 mg Polyethylene Glycol (Polyethylene Glycol 3350 17 Gm Powd.Pack) 17 gm PO DAILY [facility] Last Admin: 11/21/24 07:59 Dose: 17 gm Senna (Sennosides 8.6 Mg Tablet) 8.6 mg PO BEDTIME PRN PRN Reason: Constipation Trazodone HCl (Trazodone Hcl 50 Mg Tablet) 50 mg PO BEDTIME MRX1 PRN PRN Reason: Insomnia Last Admin: 11/21/24 00:58 Dose: 50 mg Vitamin D (Cholecalciferol (Vitamin D3) 10 Mcg Tablet) 10 mcg PO DAILY [facility] Last Admin: 11/21/24 07:56 Dose: 10 mcg Allergies Allergies Allergy/AdvReac Type Severity Reaction Status Date / Time No Known Allergies Allergy Verified 11/14/24 10:15 [No Known Allergies*] Assessment & Plan Assessment & Plan (1) Pre-op evaluation: Status: Acute Code(s): Z01.818 - Encounter for other preprocedural examination Plan The pt is an 79-year-old male with PMH significant for prostate cancer, pulmonary embolism on Eliquis, vertigo, GERD, HLD, and MDD with psychotic features who was admitted to [facility] for increased anxiety and panic attacks. Hospitalist consult for ECT risk stratification. ECT Risk Stratification Pt with long hx of ECT Currently on monthly ECT maintenance outpatient, last ECT session 2.5 weeks ago RCRI 0 points No indication for additional cardiac workup Given PMH, HPI, and recent ECT sessions, there are no contraindications for the planned procedure Plan 1. Waiting for nortriptyline level. 2. Gather collateral information. I contact Dr. Sims who is on vacation who is coming back next Thursday 3. We will restart ECT as soon as possible. 11/19 continue current plans and regimen. Scheduled for ECT mid week next week 11/20: Continue current regimen and plans. 11/21: Continue current regimen and plans. Increase Zyprexa to 5 mg b.i.d. p.r.n.. Speech pathology consult. Patient educated on: medication risk/benefits Reason for continued inpatient stay Substantial Risk for: med/psych decompensation Time Spent With Patient Time: Total time managing care of this patient today ____ minutes.
--- NOTE | 2024-11-21 13:23 | PC.NURSE ---
José Luis was observed coughing with swallowing pills and when drinking felisa leigh ann. Requested speech eval from Dr. Oconnor and eval ordered.
--- NOTE | 2024-11-21 17:32 | MHC.SL.SWA ---
Speech Pathologist Impression: Age-related changes to swallow mechanism; oropharyngeal coordination WNL Risk of Aspiration Due to: low affect, need for intermittent supervision to encourage PO safety Dysphasia Diet Status: Liquid Consistency and Strategies for Safe Swallow: Liquid Intake Recommendation: Thin Liquid Intake Strategies: Solid Food Consistency: Dietary Recommendations: Regular Additional Modifications to Solid Foods: Oral Medication Intake: Whole with Puree Please contact the pharmacy regarding appropriate crushable or liquid drug formulations that are available whenever modified delivery is recommended. Compensatory Strategies and Precautions to be Taken for Safe Swallow: Sitting Upright (90 deg) Alternate Liquids/Solids Supervision While Eating and Drinking for Safe Swallow: Intermittent Supervision Foods to Avoid: Swallowing Recommended Treatments: Compens. Strategy Educat. Recommendation for Speech: Inpatient Speech Therapy Comment: Frequency/Duration: Follow up x2 Date Range for Service Req: Timeline to reassess: Collection Officer Clinican/Clinical Fellow: No Supervisory Statement: I have reviewed and agree with the student/clinical fellow's documentation: N/A Speech Language Pathologist: Cydney Villegas M.S., CCC-TECHNICIAN CHEMICAL CLEANING
[2024-11-21 20:00] VITALS: BP 122/78; PULSE 100; RESP 16; TEMP 36.8; O2SAT 95
[2024-11-21] MEDS: Nortriptyline HCl 25 MG CAPSULE 75 MG PO (20:37)
[2024-11-21] MEDS: OLANZapine 7.5 MG TABLET PO (20:38)
[2024-11-21] MEDS: Atorvastatin Calcium 40 MG TABLET PO (20:38)
[2024-11-21] MEDS: Melatonin 3 MG TABLET 6 MG PO (20:38)
[2024-11-22] MEDS: Omeprazole 40 MG CAPSULE.DR PO (06:33)
[2024-11-22 08:00] VITALS: BP 119/72; PULSE 118; RESP 20; TEMP 36.4; O2SAT 95
[2024-11-22] MEDS: Docusate Sodium 100 MG CAPSULE PO ×2 (08:51→19:45)
[2024-11-22] MEDS: Cholecalciferol (Vitamin D3) 10 MCG TABLET PO (08:51)
[2024-11-22] MEDS: Ferrous Sulfate 324 MG TABLET.DR PO (08:51)
[2024-11-22] MEDS: polyethylene glycoL 3350 17 GM POWD.PACK PO (08:51)
[2024-11-22] MEDS: Finasteride 5 MG TABLET PO (08:52)
[2024-11-22] MEDS: oxyBUTYnin chloride 5 MG TABLET PO (08:52)
[2024-11-22] MEDS: Apixaban 5 MG TABLET PO ×2 (08:52→19:45)
[2024-11-22] MEDS: OLANZapine 5 MG TABLET PO ×2 (09:32→19:46)
--- NOTE | 2024-11-22 11:57 | P.PNPSI_ITS ---
Subjective Subjective Date of Service: 11/22/24 Reason For Visit: SI Subjective Notes: Conditional Voluntary Interim History: The nursing staff reported the patient had been exit seeking, anxious restless. On interview the patient looks internally preoccupied unable to answer any questions. He is scheduled to have ECT as soon as possible Mental Status Exam Mental Status Exam Patient Appearance: Unkempt Patient Orientation: Person Level of Consciousness: Awake and Appropriate Patient Behavior: Guarded and Passive Mood Description: Withdrawn Affect Description: Blunted Patient Cognition Impaired: Yes Ability to Follow Directions: Good Speech Pattern: Clear Hallucinations: None Delusions: Paranoid Ideation Thought Process: Distracted and Slowed Thinking Thought Content: positive for [place] and positive for Poverty of Content Judgement: Fair Diagnostics Vital Signs (24Hr): Vital Signs - 24 hr 11/21/24 20:00 11/22/24 08:00 Temperature 98.3 F 97.6 F Pulse Rate 100 118 H Respiratory Rate 16 20 Blood Pressure 122/78 119/72 Pulse Oximetry 95 95 Oxygen Delivery Method Room Air Room Air BMI result Body Mass Index 27.4 Labs 11/14/24 11:19 11/14/24 18:48 Medications Medications Current Medications Acetaminophen (Acetaminophen 325 Mg Tablet) 650 mg PO Q6H PRN PRN Reason: Headache/Pain, Scale 1-10 Al Hydroxide/Mg Hydroxide (Magnesium Hydrox/Alum Hydrox 30 Ml Oral.Susp) 30 ml PO Q6H PRN PRN Reason: Heartburn/Nausea Apixaban (Apixaban 5 Mg Tablet) 5 mg PO BID [facility] Last Admin: 11/22/24 08:52 Dose: 5 mg Atorvastatin Calcium (Atorvastatin Calcium 40 Mg Tablet) 40 mg PO BEDTIME [facility] Last Admin: 11/21/24 20:38 Dose: 40 mg Docusate Sodium (Docusate Sodium 100 Mg Capsule) 100 mg PO BID [facility] Last Admin: 11/22/24 08:51 Dose: 100 mg Ferrous Sulfate (Ferrous Sulfate 324 Mg Tablet.Dr) 324 mg PO DAILY [facility] Last Admin: 11/22/24 08:51 Dose: 324 mg Finasteride (Finasteride 5 Mg Tablet) 5 mg PO DAILY [facility] Last Admin: 11/22/24 08:52 Dose: 5 mg Magnesium Hydroxide (Milk Of Magnesia 30 Ml Oral.Susp) 30 ml PO DAILY PRN PRN Reason: Constipation Melatonin (Melatonin 3 Mg Tablet) 6 mg PO BEDTIME [facility] Last Admin: 11/21/24 20:38 Dose: 6 mg Nortriptyline HCl (Nortriptyline Hcl 25 Mg Capsule) 75 mg PO BEDTIME [facility] Last Admin: 11/21/24 20:37 Dose: 75 mg Olanzapine (Olanzapine 7.5 Mg Tablet) 7.5 mg PO BEDTIME [facility] Last Admin: 11/21/24 20:38 Dose: 7.5 mg Olanzapine (Olanzapine 5 Mg Tablet) 5 mg PO BID PRN PRN Reason: anxiety/restlessness Last Admin: 11/22/24 09:32 Dose: 5 mg Omeprazole (Omeprazole 40 Mg Capsule.Dr) 40 mg PO DAILY@0630 [facility] Last Admin: 11/22/24 06:33 Dose: 40 mg Ondansetron HCl (Ondansetron Odt 4 Mg Tab.Rapdis) 4 mg TRANSLINGU Q12H PRN PRN Reason: Nausea and Vomiting Oxybutynin Chloride (Oxybutynin Chloride 5 Mg Tablet) 5 mg PO DAILY [facility] Last Admin: 11/22/24 08:52 Dose: 5 mg Polyethylene Glycol (Polyethylene Glycol 3350 17 Gm Powd.Pack) 17 gm PO DAILY [facility] Last Admin: 11/22/24 08:51 Dose: 17 gm Senna (Sennosides 8.6 Mg Tablet) 8.6 mg PO BEDTIME PRN PRN Reason: Constipation Trazodone HCl (Trazodone Hcl 50 Mg Tablet) 50 mg PO BEDTIME MRX1 PRN PRN Reason: Insomnia Last Admin: 11/21/24 20:39 Dose: 50 mg Vitamin D (Cholecalciferol (Vitamin D3) 10 Mcg Tablet) 10 mcg PO DAILY [facility] Last Admin: 11/22/24 08:51 Dose: 10 mcg Allergies Allergies Allergy/AdvReac Type Severity Reaction Status Date / Time No Known Allergies Allergy Verified 11/14/24 10:15 [No Known Allergies*] Assessment & Plan Assessment & Plan (1) Pre-op evaluation: Status: Acute Code(s): Z01.818 - Encounter for other preprocedural examination Plan The pt is an 79-year-old male with PMH significant for prostate cancer, pulmonary embolism on Eliquis, vertigo, GERD, HLD, and MDD with psychotic features who was admitted to [facility] psych for increased anxiety and panic attacks. Hospitalist consult for ECT risk stratification. ECT Risk Stratification Pt with long hx of ECT Currently on monthly ECT maintenance outpatient, last ECT session 2.5 weeks ago RCRI 0 points No indication for additional cardiac workup Given PMH, HPI, and recent ECT sessions, there are no contraindications for the planned procedure Plan 1. Waiting for nortriptyline level. 2. Gather collateral information. I contact Dr. Sims who is on vacation who is coming back next Thursday 3. We will restart ECT as soon as possible. 11/19 continue current plans and regimen. Scheduled for ECT mid week next week 11/20: Continue current regimen and plans. 11/21: Continue current regimen and plans. Increase Zyprexa to 5 mg b.i.d. p.r.n.. Speech pathology consult. 11/22 speech and swallow came back within normal limits continue same treatment Reason for continued inpatient stay Substantial Risk for: inability to function, rapid decompensation and med/psych decompensation Time Spent With Patient Time: Total time managing care of this patient today _20___ minutes.
--- NOTE | 2024-11-22 12:10 | MHC.SL.SWA ---
Speech Pathologist Impression: Oral phase dypshagia, risk of aspiration Risk of Aspiration Due to:Altered mentation Dysphasia Diet Status: Downgrade to NDD2 Liquid Consistency and Strategies for Safe Swallow: Liquid Intake Recommendation: Thin Liquid Intake Strategies: Small Sips Solid Food Consistency: Dietary Recommendations: Grnd/Mech Altered (NDD2) Additional Modifications to Solid Foods: Patient pocketing food in cheeks, w/ piece meal chewing and delayed coughing fit. Recommend DOWNGRADE to GROUND/MECH ALTERED (NDD2) solids and THIN liquids, pills WHOLE in PUREE. Patient will need direct supervision at meal time, periodic oral cavity check, and intermittent cues for feeding strategies: moisten food with sauces/gravies, take one bite at a time, chew food well, and alternate with sips of liquid. Oral Medication Intake: Whole with Puree Please contact the pharmacy regarding appropriate crushable or liquid drug formulations that are available whenever modified delivery is recommended. Compensatory Strategies and Precautions to be Taken for Safe Swallow: Sitting Upright (90 deg) Double Swallow Small Bites and Sips Alternate Liquids/Solids Rate of Ingestion Change Oral Check Avoid Specific Foods Supervision While Eating and Drinking for Safe Swallow: Total Supervision (1:1) Foods to Avoid: Tough or overly dry, crumbly foods Swallowing Recommended Treatments: Compens. Strategy Educat. Recommendation for Speech: Inpatient Speech Therapy Comment: Frequency/Duration: 1-2 f/u Date Range for Service Req: Timeline to reassess: [employer] Supervisor Clinican/Clinical Fellow: No Supervisory Statement: I have reviewed and agree with the student/clinical fellow's documentation: N/A Speech Language Pathologist: Skye Seo M.A., CCC-WATCH INSPECTOR FINAL MOVEMENT
--- NOTE | 2024-11-22 17:52 | PC.NURSE ---
José Luis was noted to be coughing with meals today, seen by Speech Therapy again. José Luis was noted to be pocketing food. Diet changed to ground mechanical with total 1:1 supervision while eating. Meds to be taken whole in puree. Thin liquids with small sips. José Luis was served ground mechanical for dinner, he coughed x 4 and spit the food up. Dr. Molina made aware. José Luis is at risk for aspiration, he needs to be monitored for SOB, assess lungs, temp, and PO2. 97.6, lungs clear, PO2 95%, no resp issues noted..
[2024-11-22] MEDS: Melatonin 3 MG TABLET 6 MG PO (19:42)
[2024-11-22] MEDS: Nortriptyline HCl 25 MG CAPSULE 75 MG PO (19:43)
[2024-11-22] MEDS: traZODone HCL 50 MG TABLET PO (19:44)
[2024-11-22] MEDS: Atorvastatin Calcium 40 MG TABLET PO (19:44)
[2024-11-22] MEDS: OLANZapine 7.5 MG TABLET PO (19:45)
[2024-11-22 20:00] VITALS: BP 137/89; PULSE 120; RESP 20; TEMP 36.5; O2SAT 93
[2024-11-22] MEDS: LORazepam 1 MG TABLET PO (20:51)
[2024-11-23] VITALS (12 sets, daily range): BP systolic 98–157; BP diastolic 63–78; PULSE 98–110; RESP 16–28; TEMP 36.6–37.3; O2SAT 92–95
[2024-11-23] MEDS: OLANZapine ODT 10 MG TAB.RAPDIS TRANSLINGU (01:48)
--- NOTE | 2024-11-23 07:04 | MHC.SHP ---
Pre-Procedural Eval Section A - 24 Hr Update-Section A only Date of Service: 11/23/24 The patient is an INPATIENT: Yes Changes since office visit: No Cold of Flu in the past 2 weeks, No New Medical Problems, No Changes in Medication and No Patient answered all questions The patient has been examined within 24 hours of the surgical procedure. The History & Physical has been completed within 30 days and I have reviewed it.: Yes Section B - Complete if H&P > 30 days Chief Complaint: SI Allergies: Allergies Allergy/AdvReac Type Severity Reaction Status Date / Time No Known Allergies Allergy Verified 11/14/24 10:15 [No Known Allergies*] Plan I have reviewed the history and physical and performed a pertinent physical examination on my patient. No changes have occurred unless specified. Time Spent With Patient Time: Total time managing care of this patient today ____ minutes.
--- NOTE | 2024-11-23 07:06 | HO.ECTPROC ---
ECT Procedure Note Diagnosis/Treatment Date of Service: 11/23/24 Diagnosis: Catatonia Previous ECT Date: 10/28/24 Current Treatment Number: 1 Treatment: Series Time: Total time managing care of this patient today ____ minutes. ECT Settings Device: THYMATRON DGx Electrode Placement: Bifrontal Program/Pulse Width: 0.50 Energy Percent: 100 Seizure Duration By EEG (in seconds): 39 Medications Administration General Anesthetic: Etomidate (16) Muscle Relaxant: Succinylcholine (100) Ancillary Medications Cardiovascular Medications: Esmolol (30 pretx ) Airway Management Airway Management: Bag Mask Ventilation Treatment Recommendations No Changes Recommended: No change
--- NOTE | 2024-11-23 07:30 | P.CONAN_ITS ---
HPI - Anesthesia Eval Consult details Narrative: 79 yo male patient for ECT PMFSH Active Problems Active Problems: All Active Problems Pre-op evaluation (Acute) Anxiety (Acute) Major depressive disorder, recurrent, severe with psychotic features (Acute) Depression (Acute) Physical deconditioning (Acute) Preoperative cardiovascular examination (Acute) Anemia (Acute) GERD (gastroesophageal reflux disease) (Acute) Past Medical History Medical History COVID-19 vaccine administered History of electroconvulsive therapy Major depressive disorder, recurrent, severe with psychotic features Pulmonary embolism Diverticulitis of colon with perforation Hyperlipidemia HTN (hypertension) Dementia GERD (gastroesophageal reflux disease) Depression SVT (supraventricular tachycardia) Family History Family History Brother Blood clot in vein Other No history of cardiac disorder Family history of problems with anesthesia: No Surgical History Surgical History History of esophagogastroduodenoscopy (EGD) H/O colonoscopy Status post Paula's procedure History of colostomy reversal H/O hernia repair History of Problems with Anesthesia: No Social History Social History Household Members: None Housing: Assisted Living Facility Are you a primary daycare director to a significant other at home: No Do you presently have visiting nurse or other home services: No Alcohol intake: former Comment: headache better Patient Tobacco Use Status: Never used Tobacco Second Hand Smoke Exposure: No Advance Directives Date on File: 06/22/23 service: Yes Current occupational status: retired Sexual orientation: Straight/Heterosexual Meds Allergies Allergy/AdvReac Type Severity Reaction Status Date / Time No Known Allergies Allergy Verified 11/14/24 10:15 [No Known Allergies*] Active Medications: Current Medications Acetaminophen (Acetaminophen 325 Mg Tablet) 650 mg PO Q6H PRN PRN Reason: Headache/Pain, Scale 1-10 Al Hydroxide/Mg Hydroxide (Magnesium Hydrox/Alum Hydrox 30 Ml Oral.Susp) 30 ml PO Q6H PRN PRN Reason: Heartburn/Nausea Apixaban (Apixaban 5 Mg Tablet) 5 mg PO BID [facility] Last Admin: 11/22/24 19:45 Dose: 5 mg Atorvastatin Calcium (Atorvastatin Calcium 40 Mg Tablet) 40 mg PO BEDTIME [facility] Last Admin: 11/22/24 19:44 Dose: 40 mg Docusate Sodium (Docusate Sodium 100 Mg Capsule) 100 mg PO BID [facility] Last Admin: 11/22/24 19:45 Dose: 100 mg Ferrous Sulfate (Ferrous Sulfate 324 Mg Tablet.) 324 mg PO DAILY [facility] Last Admin: 11/22/24 08:51 Dose: 324 mg Finasteride (Finasteride 5 Mg Tablet) 5 mg PO DAILY [facility] Last Admin: 11/22/24 08:52 Dose: 5 mg Magnesium Hydroxide (Milk Of Magnesia 30 Ml Oral.Susp) 30 ml PO DAILY PRN PRN Reason: Constipation Melatonin (Melatonin 3 Mg Tablet) 6 mg PO BEDTIME [facility] Last Admin: 11/22/24 19:42 Dose: 6 mg Nortriptyline HCl (Nortriptyline Hcl 25 Mg Capsule) 75 mg PO BEDTIME [facility] Last Admin: 11/22/24 19:43 Dose: 75 mg Olanzapine (Olanzapine 7.5 Mg Tablet) 7.5 mg PO BEDTIME [facility] Last Admin: 11/22/24 19:45 Dose: 7.5 mg Olanzapine (Olanzapine 5 Mg Tablet) 5 mg PO BID PRN PRN Reason: anxiety/restlessness Last Admin: 11/22/24 19:46 Dose: 5 mg Omeprazole (Omeprazole 40 Mg Capsule.) 40 mg PO DAILY@0630 [facility] Last Admin: 11/23/24 05:19 Dose: Not Given Ondansetron HCl (Ondansetron Odt 4 Mg Tab.Rapdis) 4 mg TRANSLINGU Q12H PRN PRN Reason: Nausea and Vomiting Oxybutynin Chloride (Oxybutynin Chloride 5 Mg Tablet) 5 mg PO DAILY [facility] Last Admin: 11/22/24 08:52 Dose: 5 mg Polyethylene Glycol (Polyethylene Glycol 3350 17 Gm Powd.Pack) 17 gm PO DAILY [facility] Last Admin: 11/22/24 08:51 Dose: 17 gm Senna (Sennosides 8.6 Mg Tablet) 8.6 mg PO BEDTIME PRN PRN Reason: Constipation Trazodone HCl (Trazodone Hcl 50 Mg Tablet) 50 mg PO BEDTIME MRX1 PRN PRN Reason: Insomnia Last Admin: 11/22/24 19:44 Dose: 50 mg Vitamin D (Cholecalciferol (Vitamin D3) 10 Mcg Tablet) 10 mcg PO DAILY [facility] Last Admin: 11/22/24 08:51 Dose: 10 mcg Home Medications ?Medication ?Instructions ?Recorded ?Confirmed ?Last Taken ?Type omeprazole 40 mg capsule,delayed 40 mg PO DAILY@0630 11/14/24 11/14/24 Unknown History release polyethylene glycol 3350 17 17 g PO DAILY 11/14/24 11/14/24 Unknown History gram/dose oral powder (Miralax) sennosides 8.6 mg tablet (Senna 8.6 mg PO BEDTIME PRN Constipation 11/14/24 11/14/24 Unknown History Lax) Exam Height,Weight and Vital Signs: Height 5 ft 11 in Weight 89.267 kg Last Vital Signs Temp 98.3 F 11/23/24 06:49 Pulse 109 H 11/23/24 06:49 Resp 24 H 11/23/24 06:49 BP 137/78 11/23/24 06:49 Pulse Ox 94 11/23/24 06:49 O2 Del Method Room Air 11/23/24 06:49 Pertinent Lab Results Pertinent Lab Results: Laboratory Tests 11/14/24 11/14/24 11/14/24 11:19 11:52 18:48 WBC 5.3 RBC 3.89 L Hgb 13.5 L Hct 38.5 L MCV 99.0 H MCH 34.7 H MCHC 35.1 RDW 13.3 Plt Count 159 L MPV 9.0 L Immature Gran % (Auto) 0.2 Neut % (Auto) 70.7 Lymph % (Auto) 15.4 L Sac % (Auto) 12.5 H Eos % (Auto) 0.8 Baso % (Auto) 0.4 Lymph # (Auto) 0.8 L Sac # (Auto) 0.7 Eos # (Auto) 0.0 Baso # (Auto) 0.0 Abs Immat Gran (auto) 0.01 Absolute Neuts (auto) 3.7 Absolute Nucleated RBC 0.000 Nucleated RBC % (auto) 0.0 Sodium 143 143 Potassium 3.8 3.7 Chloride 113 H 112 H Carbon Dioxide 22 17 L Anion Gap 12 18 BUN 26 H 26 H Creatinine 0.93 1.20 Estim Creat Clear Calc 66.3 51.4 Estimated GFR > 60 58 POC Glucose Random Glucose 136 H 199 H Estimat Average Glucose Hemoglobin A1c % Calcium 9.2 9.0 Magnesium 1.7 Total Bilirubin 0.7 0.7 AST 39 H 34 ALT 27 26 Alkaline Phosphatase 115 124 H Total Protein 7.0 7.5 Albumin 4.0 4.2 Triglycerides Cholesterol LDL Cholesterol, Calc HDL Cholesterol Lipase 26 Vitamin B12 Folate TSH 0.83 Urine Color Yellow Urine Appearance Clear Urine pH 6.0 Ur Specific [place] >= 1.030 H Urine Protein Trace Urine Glucose (UA) Negative Urine Ketones Negative Urine Blood Negative Urine Nitrite Negative Ur Leukocyte Esterase Negative Salicylates < 5.0 L Urine Opiates Screen Not Detected Ur Buprenorphine Scrn Not Detected Ur Oxycodone Screen Not Detected Urine Methadone Screen Not Detected Urine Fentanyl Screen Not Detected Acetaminophen < 3 Ur Barbiturates Screen Not Detected Nortriptyline Ur Phencyclidine Scrn Not Detected Ur Amphetamines Screen Not Detected U Benzodiazepines Scrn Not Detected Urine Cocaine Screen Not Detected U Marijuana (THC) Screen Not Detected Ethyl Alcohol < 10 Influenza Type A (PCR) NEGATIVE Influenza Type B (PCR) NEGATIVE RSV RNA Qual (PCR) NEGATIVE SARS-CoV-2 RNA (RT-PCR) NEGATIVE 11/15/24 11/16/24 11/17/24 07:36 07:28 20:32 WBC RBC Hgb Hct MCV MCH MCHC RDW Plt Count MPV Immature Gran % (Auto) Neut % (Auto) Lymph % (Auto) Sac % (Auto) Eos % (Auto) Baso % (Auto) Lymph # (Auto) Sac # (Auto) Eos # (Auto) Baso # (Auto) Abs Immat Gran (auto) Absolute Neuts (auto) Absolute Nucleated RBC Nucleated RBC % (auto) Sodium Potassium Chloride Carbon Dioxide Anion Gap BUN Creatinine Estim Creat Clear Calc Estimated GFR POC Glucose 127 H Random Glucose Estimat Average Glucose 131 Hemoglobin A1c % 6.2 H Calcium Magnesium 1.7 Total Bilirubin AST ALT Alkaline Phosphatase Total Protein Albumin Triglycerides 82 Cholesterol 105 LDL Cholesterol, Calc 51 HDL Cholesterol 38 L Lipase Vitamin B12 288 Folate 7.2 TSH 1.46 Urine Color Urine Appearance Urine pH Ur Specific [place] Urine Protein Urine Glucose (UA) Urine Ketones Urine Blood Urine Nitrite Ur Leukocyte Esterase Salicylates Urine Opiates Screen Ur Buprenorphine Scrn Ur Oxycodone Screen Urine Methadone Screen Urine Fentanyl Screen Acetaminophen Ur Barbiturates Screen Nortriptyline 58 Ur Phencyclidine Scrn Ur Amphetamines Screen U Benzodiazepines Scrn Urine Cocaine Screen U Marijuana (THC) Screen Ethyl Alcohol Influenza Type A (PCR) Influenza Type B (PCR) RSV RNA Qual (PCR) SARS-CoV-2 RNA (RT-PCR) Airway Mallampati Class: III TM Dist: >3cm Neck ROM: Full Denture: Upper Loose/Missing/Broken Teeth: Yes (Full dentures top, no teeth bottom) Heart: RRR Lungs: CTAB Assessment and Plan Assessment Anesthesia Assessment: Anesthesia Plan Discussed and Chart Reviewed Final Anesthetic Review Family History of Problems with Anesthesia: No History of Problems with Anesthesia: No NPO: Yes ASA Class: III Final Preanesthetic Review: No Changes in Pt Med Stat, Meds/Allgs Chart Reviewed, Consent Obtained/Reviewed and Anes Risks/Benef Reviewed Patient Risk: Intermediate Procedure Risk: Intermediate Assessment/Block/Sedation in SS: Assess/Block/Sedation-SS Anesthetic Plan Anesthetic Plan: GA Disposition: Standard PACU
[2024-11-23] MEDS: polyethylene glycoL 3350 17 GM POWD.PACK PO (09:09)
[2024-11-23] MEDS: Ferrous Sulfate 324 MG TABLET.DR PO (09:10)
[2024-11-23] MEDS: Omeprazole 40 MG CAPSULE.DR PO (09:10)
[2024-11-23] MEDS: oxyBUTYnin chloride 5 MG TABLET PO (09:10)
[2024-11-23] MEDS: Apixaban 5 MG TABLET PO (09:10)
[2024-11-23] MEDS: Docusate Sodium 100 MG CAPSULE PO (09:10)
[2024-11-23] MEDS: Cholecalciferol (Vitamin D3) 10 MCG TABLET PO (09:10)
[2024-11-23] MEDS: Finasteride 5 MG TABLET PO (09:11)
[2024-11-23] MEDS: Ondansetron ODT 4 MG TAB.RAPDIS TRANSLINGU (10:03)
--- NOTE | 2024-11-23 10:08 | PC.NURSE ---
José Luis returned from ECT and was feeling well with no complaints. He was A&O x 4, more alert and answering questions appropriately. Vital signs stable, he denied any nausea or headaches. Seen by [employer] COACH yesterday as coughing was noted frequently when he ate. Diet changed to ground mechanical w/ 1:1 supervision, thin liquids, and meds to be taken whole with puree. He was just eating his bkft and was noted to be pocketing his food w/ much coughing noted. He spit up most of the food and liquids and was coughing. We made Dr. Amaya aware that we are keeping him NPO, and asking for another Speech Eval. José Luis also c/o nausea after his eating/coughing episode, Zofran SL given as ordered. No respiratory issues noted.
--- NOTE | 2024-11-23 10:56 | PC.NURSE ---
Cydney from [facility] evaluated José Luis a short time ago. Evaluation done, she is requesting [facility] consult due to suspected esophageal dysphagia. She is recommending that he be kept NPO, including no oral meds. [facility] will reassess him daily. Dr. Amaya made aware.
--- NOTE | 2024-11-23 13:44 | HO.PSYCHPN ---
Subjective Subjective Date of Service: 11/23/24 Reason For Visit: SI Subjective Notes: Conditional Voluntary Interim History: The nursisng staff reported that he was exit seeking, rediirected, needed PRN medications. He had ECT today with no complications. He looks slightyl confused post ECT, mood is still dysphoric but less irritable. Mental Status Exam Mental Status Exam Patient Appearance: Appropriate Patient Orientation: Person and Situation Level of Consciousness: Awake and Appropriate Patient Behavior: Guarded and Passive Mood Description: Withdrawn Affect Description: Labile Patient Cognition Impaired: Yes Ability to Follow Directions: Good Speech Pattern: Clear Hallucinations: None Delusions: Ideas of Reference Thought Process: Distracted and Slowed Thinking Thought Content: positive for [place] and positive for Poverty of Content Judgement: Poor Diagnostics Vital Signs (24Hr): Vital Signs - 24 hr 11/22/24 20:00 11/23/24 06:21 11/23/24 06:49 Temperature 97.7 F 98.6 F 98.3 F Pulse Rate 120 H 110 H 109 H Respiratory Rate 20 20 24 H Blood Pressure 137/89 157/75 H 137/78 Pulse Oximetry 93 95 94 Oxygen Delivery Method Room Air Room Air Oxygen Flow Rate 11/23/24 07:25 11/23/24 07:30 11/23/24 07:35 Temperature 99.1 F Pulse Rate 106 H 105 H 103 H Respiratory Rate 28 H 28 H 28 H Blood Pressure 137/78 131/77 127/71 Pulse Oximetry 95 92 92 Oxygen Delivery Method Nasal Cannula Nasal Cannula Nasal Cannula Oxygen Flow Rate 3 3 3 11/23/24 07:40 11/23/24 07:55 11/23/24 08:10 Temperature Pulse Rate 105 H 103 H 104 H Respiratory Rate 26 H 26 H 22 H Blood Pressure 108/69 135/72 120/75 Pulse Oximetry 92 94 92 Oxygen Delivery Method Nasal Cannula Nasal Cannula Nasal Cannula Oxygen Flow Rate 3 2 2 11/23/24 08:25 11/23/24 09:05 11/23/24 09:07 Temperature 98.4 F 97.8 F 97.8 F Pulse Rate 104 H 105 H 105 H Respiratory Rate 20 18 18 Blood Pressure 107/72 129/72 129/72 Pulse Oximetry 92 94 94 Oxygen Delivery Method Room Air Room Air Oxygen Flow Rate BMI result Body Mass Index 27.4 Labs 11/14/24 11:19 11/14/24 18:48 Medications Medications Current Medications Acetaminophen (Acetaminophen 325 Mg Tablet) 650 mg PO Q6H PRN PRN Reason: Headache/Pain, Scale 1-10 Al Hydroxide/Mg Hydroxide (Magnesium Hydrox/Alum Hydrox 30 Ml Oral.Susp) 30 ml PO Q6H PRN PRN Reason: Heartburn/Nausea Apixaban (Apixaban 5 Mg Tablet) 5 mg PO BID [facility] Last Admin: 11/23/24 09:10 Dose: 5 mg Atorvastatin Calcium (Atorvastatin Calcium 40 Mg Tablet) 40 mg PO BEDTIME [facility] Last Admin: 11/22/24 19:44 Dose: 40 mg Docusate Sodium (Docusate Sodium 100 Mg Capsule) 100 mg PO BID [facility] Last Admin: 11/23/24 09:10 Dose: 100 mg Ferrous Sulfate (Ferrous Sulfate 324 Mg Tablet.) 324 mg PO DAILY [facility] Last Admin: 11/23/24 09:10 Dose: 324 mg Finasteride (Finasteride 5 Mg Tablet) 5 mg PO DAILY [facility] Last Admin: 11/23/24 09:11 Dose: 5 mg Magnesium Hydroxide (Milk Of Magnesia 30 Ml Oral.Susp) 30 ml PO DAILY PRN PRN Reason: Constipation Melatonin (Melatonin 3 Mg Tablet) 6 mg PO BEDTIME [facility] Last Admin: 11/22/24 19:42 Dose: 6 mg Nortriptyline HCl (Nortriptyline Hcl 25 Mg Capsule) 100 mg PO BEDTIME [facility] Olanzapine (Olanzapine 7.5 Mg Tablet) 7.5 mg PO BEDTIME [facility] Last Admin: 11/22/24 19:45 Dose: 7.5 mg Olanzapine (Olanzapine 5 Mg Tablet) 5 mg PO BID PRN PRN Reason: anxiety/restlessness Last Admin: 11/22/24 19:46 Dose: 5 mg Omeprazole (Omeprazole 40 Mg Capsule.) 40 mg PO DAILY@0630 [facility] Last Admin: 11/23/24 09:10 Dose: 40 mg Ondansetron HCl (Ondansetron Odt 4 Mg Tab.Rapdis) 4 mg TRANSLINGU Q12H PRN PRN Reason: Nausea and Vomiting Last Admin: 11/23/24 10:03 Dose: 4 mg Oxybutynin Chloride (Oxybutynin Chloride 5 Mg Tablet) 5 mg PO DAILY [facility] Last Admin: 11/23/24 09:10 Dose: 5 mg Polyethylene Glycol (Polyethylene Glycol 3350 17 Gm Powd.Pack) 17 gm PO DAILY [facility] Last Admin: 11/23/24 09:09 Dose: 17 gm Senna (Sennosides 8.6 Mg Tablet) 8.6 mg PO BEDTIME PRN PRN Reason: Constipation Trazodone HCl (Trazodone Hcl 50 Mg Tablet) 50 mg PO BEDTIME MRX1 PRN PRN Reason: Insomnia Last Admin: 11/22/24 19:44 Dose: 50 mg Vitamin D (Cholecalciferol (Vitamin D3) 10 Mcg Tablet) 10 mcg PO DAILY [facility] Last Admin: 11/23/24 09:10 Dose: 10 mcg Allergies Allergies Allergy/AdvReac Type Severity Reaction Status Date / Time No Known Allergies Allergy Verified 11/14/24 10:15 [No Known Allergies*] Assessment & Plan Assessment & Plan (1) Pre-op evaluation: Status: Acute Code(s): Z01.818 - Encounter for other preprocedural examination Plan The pt is an 79-year-old male with PMH significant for prostate cancer, pulmonary embolism on Eliquis, vertigo, GERD, HLD, and MDD with psychotic features who was admitted to [facility] for increased anxiety and panic attacks. Hospitalist consult for ECT risk stratification. ECT Risk Stratification Pt with long hx of ECT Currently on monthly ECT maintenance outpatient, last ECT session 2.5 weeks ago RCRI 0 points No indication for additional cardiac workup Given PMH, HPI, and recent ECT sessions, there are no contraindications for the planned procedure Plan 1. Waiting for nortriptyline level. 2. Gather collateral information. I contact Dr. Sims who is on vacation who is coming back next Thursday 3. We will restart ECT as soon as possible. 11/19 continue current plans and regimen. Scheduled for ECT mid week next week 11/20: Continue current regimen and plans. 11/21: Continue current regimen and plans. Increase Zyprexa to 5 mg b.i.d. p.r.n.. Speech pathology consult. 11/22 speech and swallow came back within normal limits continue same treatment. 11/23 speech and swallow requested a gastroenherolgist consult and he should be NPO. Reason for continued inpatient stay Substantial Risk for: inability to function, rapid decompensation and med/psych decompensation Time Spent With Patient Time: Total time managing care of this patient today __20__ minutes.
--- NOTE | 2024-11-23 14:52 | MHC.SL.SWA ---
Speech Pathologist Impression: Question esophageal involvement, recc NPO strict, GI consult as soon as possible. [employer]ORAL ASSOCIATE continues to follow clsosely Risk of Aspiration Due to: Dysphasia Diet Status: Liquid Consistency and Strategies for Safe Swallow: Liquid Intake Recommendation: NPO Liquid Intake Strategies: Solid Food Consistency: Dietary Recommendations: NPO Additional Modifications to Solid Foods: Oral Medication Intake: NPO Please contact the pharmacy regarding appropriate crushable or liquid drug formulations that are available whenever modified delivery is recommended. Compensatory Strategies and Precautions to be Taken for Safe Swallow: Supervision While Eating and Drinking for Safe Swallow: PO with FLORAL ASSOCIATE Foods to Avoid: Swallowing Recommended Treatments: Compens. Strategy Educat. Recommendation for Speech: Inpatient Speech Therapy Comment: GI consult, FLORAL ASSOCIATE to re-assess daily Frequency/Duration: Follow up x2 Date Range for Service Req: Timeline to reassess: Supervisor Sewer Maintenance Clinican/Clinical Fellow: No Supervisory Statement: I have reviewed and agree with the student/clinical fellow's documentation: N/A Speech Language Pathologist: Cydney Villegas M.S., CCC-FLORAL ASSOCIATE
--- NOTE | 2024-11-23 15:19 | MHC.CLN ---
NUTRITION PATIENT SEEN BY DOMESTIC HELPER TODAY WITH RECOMMENDATION FOR NPO. SUSPECTED ESOPHAGEAL DYSPHAGIA. FOLLOW FOR CLINICAL FINDINGS. PROVIDE NUTRITIONAL SUPPORT NEEDED.
--- NOTE | 2024-11-23 15:23 | PC.NURSE ---
GI consult pending.
--- NOTE | 2024-11-23 15:54 | PM.EVENT ---
Event Note Date of Service: 11/25/24 Event Note: GI consult dictated Trial of pureed diet ordered. Barium swallow ordered for am. Eliquis on hold if endoscopy is needed, pending ba swallow Time Spent With Patient Time: Total time managing care of this patient today ____ minutes.
[2024-11-23] MEDS: OLANZapine 10 MG VIAL 5 MG IM (17:35)
[2024-11-23] MEDS: LORazepam 2 MG/ML VIAL IM (17:36)
--- NOTE | 2024-11-23 17:55 | PC.NURSE ---
Dr. White in earlier to see José Luis, orders taken.
--- NOTE | 2024-11-24 02:44 | CONS_ITS ---
DATE OF SERVICE: 11/23/2024 REFERRING PHYSICIAN: Dr. Amaya REASON FOR CONSULTATION: Dysphagia. HISTORY OF PRESENT ILLNESS: The patient is a pleasant 79-year-old man whose consultation was requested for because of dysphagia. The patient is known to me from previous evaluation. He has a history of esophageal dysmotility and erosive esophagitis. Based on previous evaluation in 2020 with barium swallow and endoscopy, he has been stable on omeprazole and has no complaints of reflux. His last endoscopy showed improvement of his esophagitis in 2020. Old records are reviewed. Consultation was requested as he was noted to have coughing after ECT today. He denies a history of previous food bolus or a sensation of incomplete swallowing. He has been able to handle saliva. He was placed on n.p.o. status and GI consultation was requested regarding his dysphagia by speech pathology. Recent inpatient records and outpatient evaluation are reviewed. PAST MEDICAL HISTORY: 1. Gastroesophageal reflux disease. 2. Depression. 3. Anxiety. 4. Anemia. 5. Elevated cholesterol and pulmonary embolism treated with Eliquis. CURRENT MEDICATIONS: Current medication list is reviewed in the chart. ALLERGIES: THERE ARE NONE REPORTED. FAMILY HISTORY: This is reviewed with the patient and is noncontributory. SOCIAL HISTORY: There is no current tobacco, alcohol, or substance abuse. REVIEW OF SYSTEMS: SKIN: No pruritus. HEENT: Negative. CARDIOPULMONARY: No shortness of breath or chest pain. GASTROINTESTINAL: As above. GENITOURINARY: Negative. NEUROPSYCHIATRIC: Negative. PHYSICAL EXAMINATION: GENERAL: Shows a pleasant male, sitting on the edge of bed. VITAL SIGNS: Reviewed in electronic medical record and are stable. SKIN: Anicteric. HEENT: Shows no scleral icterus. NECK: Without lymphadenopathy or thyromegaly. LUNGS: Clear. HEART: Shows a regular rate and rhythm. S1, S2. No murmur. ABDOMEN: Soft without focal masses or tenderness. Bowel sounds are present. No organomegaly is noted. EXTREMITIES: Without edema. LABORATORY DATA AND IMAGING STUDIES: Reviewed. IMPRESSION: Dysphagia. This appears consistent with oropharyngeal dysphagia. I would recommend starting a pureed diet and monitoring carefully during swallowing. We will arrange a barium swallow for further evaluation of his symptoms. Eliquis has been placed on hold in case he needs upper endoscopy, pending the results of the barium swallow. Thank you for asking me to see him. I will follow him in the hospital with you. MD NEFTALI Blackburn/REILLY / [phone]
[2024-11-24 09:10] VITALS: BP 115/71; PULSE 101; RESP 20; TEMP 36.4; O2SAT 96
[2024-11-24] MEDS: Cholecalciferol (Vitamin D3) 10 MCG TABLET PO (09:11)
[2024-11-24] MEDS: oxyBUTYnin chloride 5 MG TABLET PO (09:12)
[2024-11-24] MEDS: Ferrous Sulfate 324 MG TABLET.DR PO (09:12)
[2024-11-24] MEDS: Docusate Sodium 100 MG CAPSULE PO ×2 (09:12→20:28)
[2024-11-24] MEDS: Omeprazole 40 MG CAPSULE.DR PO (09:12)
[2024-11-24] MEDS: Finasteride 5 MG TABLET PO (09:13)
--- NOTE | 2024-11-24 15:00 | MHC.SLORD ---
Speech Language Pathology Order Status: Patient NPO today, pending MBS study with GI. WEB PRODUCER following closely.
--- NOTE | 2024-11-24 16:26 | HO.PSYCHPN ---
Subjective Subjective Date of Service: 11/24/24 Reason For Visit: SI Subjective Notes: Conditional Voluntary Interim History: The nursing staff reported the patient had been pleasant, he was NPO for his swallowing barium test. He is followed by Gastroenterology and they suggested to. Diet. On interview the patient is confused. Still dysphoric, continue ECT. The social human services assistants reported that his daughter reported that he had the similar problems. Mental Status Exam Mental Status Exam Patient Appearance: Appropriate Patient Orientation: Person and Situation Level of Consciousness: Awake and Appropriate Patient Behavior: Guarded and Passive Mood Description: Withdrawn Affect Description: Constricted Patient Cognition Impaired: Yes Ability to Follow Directions: Good Speech Pattern: Impoverished Hallucinations: None Delusions: Ideas of Reference Thought Process: Distracted and Slowed Thinking Thought Content: positive for [place] and positive for Poverty of Content Judgement: Poor Diagnostics Vital Signs (24Hr): Vital Signs - 24 hr 11/23/24 20:00 11/24/24 09:10 Temperature 98.6 F 97.6 F Pulse Rate 98 101 H Respiratory Rate 16 20 Blood Pressure 98/63 115/71 Pulse Oximetry 93 96 Oxygen Delivery Method Room Air Room Air BMI result Body Mass Index 27.4 Labs 11/14/24 11:19 11/14/24 18:48 Medications Medications Current Medications Acetaminophen (Acetaminophen 325 Mg Tablet) 650 mg PO Q6H PRN PRN Reason: Headache/Pain, Scale 1-10 Al Hydroxide/Mg Hydroxide (Magnesium Hydrox/Alum Hydrox 30 Ml Oral.Susp) 30 ml PO Q6H PRN PRN Reason: Heartburn/Nausea Apixaban (Apixaban 5 Mg Tablet) 5 mg PO BID [facility] Last Admin: 11/23/24 09:10 Dose: 5 mg Atorvastatin Calcium (Atorvastatin Calcium 40 Mg Tablet) 40 mg PO BEDTIME [facility] Last Admin: 11/23/24 20:51 Dose: Not Given Docusate Sodium (Docusate Sodium 100 Mg Capsule) 100 mg PO BID [facility] Last Admin: 11/24/24 09:12 Dose: 100 mg Ferrous Sulfate (Ferrous Sulfate 324 Mg Tablet.Dr) 324 mg PO DAILY [facility] Last Admin: 11/24/24 09:12 Dose: 324 mg Finasteride (Finasteride 5 Mg Tablet) 5 mg PO DAILY [facility] Last Admin: 11/24/24 09:13 Dose: 5 mg Magnesium Hydroxide (Milk Of Magnesia 30 Ml Oral.Susp) 30 ml PO DAILY PRN PRN Reason: Constipation Melatonin (Melatonin 3 Mg Tablet) 6 mg PO BEDTIME [facility] Last Admin: 11/23/24 20:51 Dose: Not Given Nortriptyline HCl (Nortriptyline Hcl 25 Mg Capsule) 100 mg PO BEDTIME [facility] Last Admin: 11/23/24 20:52 Dose: Not Given Olanzapine (Olanzapine 7.5 Mg Tablet) 7.5 mg PO BEDTIME [facility] Last Admin: 11/23/24 20:52 Dose: Not Given Olanzapine (Olanzapine 5 Mg Tablet) 5 mg PO BID PRN PRN Reason: anxiety/restlessness Last Admin: 11/22/24 19:46 Dose: 5 mg Omeprazole (Omeprazole 40 Mg Capsule.Dr) 40 mg PO DAILY@0630 [facility] Last Admin: 11/24/24 09:12 Dose: 40 mg Ondansetron HCl (Ondansetron Odt 4 Mg Tab.Rapdis) 4 mg TRANSLINGU Q12H PRN PRN Reason: Nausea and Vomiting Last Admin: 11/23/24 10:03 Dose: 4 mg Oxybutynin Chloride (Oxybutynin Chloride 5 Mg Tablet) 5 mg PO DAILY [facility] Last Admin: 11/24/24 09:12 Dose: 5 mg Polyethylene Glycol (Polyethylene Glycol 3350 17 Gm Powd.Pack) 17 gm PO DAILY [facility] Last Admin: 11/24/24 09:18 Dose: Not Given Senna (Sennosides 8.6 Mg Tablet) 8.6 mg PO BEDTIME PRN PRN Reason: Constipation Trazodone HCl (Trazodone Hcl 50 Mg Tablet) 50 mg PO BEDTIME MRX1 PRN PRN Reason: Insomnia Last Admin: 11/22/24 19:44 Dose: 50 mg Vitamin D (Cholecalciferol (Vitamin D3) 10 Mcg Tablet) 10 mcg PO DAILY [facility] Last Admin: 11/24/24 09:11 Dose: 10 mcg Allergies Allergies Allergy/AdvReac Type Severity Reaction Status Date / Time No Known Allergies Allergy Verified 11/14/24 10:15 [No Known Allergies*] Assessment & Plan Assessment & Plan (1) Pre-op evaluation: Status: Acute Code(s): Z01.818 - Encounter for other preprocedural examination Plan The pt is an 79-year-old male with PMH significant for prostate cancer, pulmonary embolism on Eliquis, vertigo, GERD, HLD, and MDD with psychotic features who was admitted to [facility] for increased anxiety and panic attacks. Hospitalist consult for ECT risk stratification. ECT Risk Stratification Pt with long hx of ECT Currently on monthly ECT maintenance outpatient, last ECT session 2.5 weeks ago RCRI 0 points No indication for additional cardiac workup Given PMH, HPI, and recent ECT sessions, there are no contraindications for the planned procedure Plan 1. Waiting for nortriptyline level. 2. Gather collateral information. I contact Dr. Sims who is on vacation who is coming back next Thursday 3. We will restart ECT as soon as possible. 11/19 continue current plans and regimen. Scheduled for ECT mid week next week 11/20: Continue current regimen and plans. 11/21: Continue current regimen and plans. Increase Zyprexa to 5 mg b.i.d. p.r.n.. Speech pathology consult. 11/22 speech and swallow came back within normal limits continue same treatment. 11/23 speech and swallow requested a gastroenherolgist consult and he should be NPO. 11/24 hadoop consultant involved that his barium swallow test suggested pureed diet. ECT tomorrow Reason for continued inpatient stay Substantial Risk for: inability to function, rapid decompensation and med/psych decompensation Time Spent With Patient Time: Total time managing care of this patient today __20__ minutes.
[2024-11-24 20:00] VITALS: BP 143/65; PULSE 107; RESP 16; TEMP 2.9; TEMP 37.3; O2SAT 94
[2024-11-24] MEDS: Nortriptyline HCl 25 MG CAPSULE 100 MG PO (20:26)
[2024-11-24] MEDS: OLANZapine 7.5 MG TABLET PO (20:27)
[2024-11-24] MEDS: OLANZapine 5 MG TABLET PO (20:27)
[2024-11-24] MEDS: Atorvastatin Calcium 40 MG TABLET PO (20:28)
[2024-11-24] MEDS: traZODone HCL 50 MG TABLET PO (20:28)
[2024-11-24] MEDS: Melatonin 3 MG TABLET 6 MG PO (20:28)
[2024-11-24] MEDS: Ondansetron ODT 4 MG TAB.RAPDIS TRANSLINGU (20:29)
[2024-11-25 08:00] VITALS: BP 108/65; PULSE 103; RESP 17; TEMP 36.2; O2SAT 93
--- NOTE | 2024-11-25 08:47 | MHC.SHP ---
Pre-Procedural Eval Section A - 24 Hr Update-Section A only Date of Service: 11/25/24 The patient is an INPATIENT: Yes Changes since office visit: No Cold of Flu in the past 2 weeks, No New Medical Problems, No Changes in Medication and No Patient answered all questions The patient has been examined within 24 hours of the surgical procedure. The History & Physical has been completed within 30 days and I have reviewed it.: Yes Section B - Complete if H&P > 30 days Chief Complaint: SI Allergies: Allergies Allergy/AdvReac Type Severity Reaction Status Date / Time No Known Allergies Allergy Verified 11/14/24 10:15 [No Known Allergies*] Plan I have reviewed the history and physical and performed a pertinent physical examination on my patient. No changes have occurred unless specified. Time Spent With Patient Time: Total time managing care of this patient today ____ minutes.
--- NOTE | 2024-11-25 09:00 | MHC.SLORD ---
Speech Language Pathology Order Status: Pt NPO for endoscopy today, per MD, ECT was cx d/t food stuck in esophagus. Barium swallow 11/24 suggestive of: esophageal dysmotility, erosive esophagitis, retained food in the distal esophagus, narrowing of GE junction, large type IV paraesophageal hernia, gastritis, and duodenitis. BUILDING CONSULTANT will continue to follow pending further GI workup.
--- NOTE | 2024-11-25 13:52 | P.BOP_ITS ---
Brief Operative Note Date of Service: 11/25/24 Surgeon: Jose Alejandro White MD Was an Public Information Coordinator used for this Procedure?: No
--- NOTE | 2024-11-25 16:23 | P.PNPSI_ITS ---
Subjective Subjective Date of Service: 11/25/24 Reason For Visit: SI Subjective Notes: Conditional Voluntary Interim History: THE NURSING STAFF REPORTED THE PATIENT HAD BEEN HYPOACTIVE, HE IS ON NPO SINCE HE IS CHOKING. HE HAD HIS ENDOSCOPY TODAY BY GASTROENTEROLOGY AND THEY FOUND A PIECE OF KERATIN HIS ESOPHAGUS. THEY SUGGESTED TO CHANGE DIET TO PUREED. ON INTERVIEW THE PATIENT REMAINS INTERNALLY PREOCCUPIED, HE DID NOT HAVE ECT TODAY. Mental Status Exam Mental Status Exam Patient Appearance: Unkempt Patient Orientation: Person Level of Consciousness: Awake and Appropriate Patient Behavior: Guarded and Passive Mood Description: Withdrawn Affect Description: Constricted Patient Cognition Impaired: Yes Ability to Follow Directions: Good Speech Pattern: Clear Hallucinations: None Delusions: Paranoid Ideation and Ideas of Reference Thought Process: Distracted and Slowed Thinking Thought Content: positive for [place] and positive for Poverty of Content Judgement: Poor Diagnostics Vital Signs (24Hr): Vital Signs - 24 hr 11/24/24 20:00 11/25/24 08:00 Temperature 37.3 F L 97.2 F Pulse Rate 107 H 103 H Respiratory Rate 16 17 Blood Pressure 143/65 H 108/65 Pulse Oximetry 94 93 Oxygen Delivery Method Room Air Room Air BMI result Body Mass Index 27.4 Labs 11/14/24 11:19 11/14/24 18:48 Imaging Radiology Impressions: ITS Impressions Barium Swallow X-Ray 11/24/24 14:00 IMPRESSION: 1. Patulous esophagus with moderately disorganized peristalsis consistent with esophageal dysmotility. 2. Granular appearance of the esophageal mucosa. In addition there are multiple areas of contrast pooling in the mid esophagus. These findings are suggestive of erosive esophagitis. Mild correlation with EGD. 3. Regular mobile filling defects located in the distal esophagus above the GE junction that likely represent retained food. 4. Moderate narrowing of the GE junction that represents achalasia or a benign stricture. 5. Large type IV paraesophageal hernia, with the majority the fundus located within the thoracic cavity. This has increased since prior study in 2020. 6. 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 7. Thickened appearance of the gastric rugal folds, suggestive of gastritis. 8. Thickened appearance of the duodenal folds, suggestive of duodenitis. This procedure was performed by Zack Padgett PA-C, and supervised by Dr. Schwab Electronically signed by: Donaldo Schwab MD 11/25/2024 08:08 AM [facility] Medications Medications Current Medications Acetaminophen (Acetaminophen 325 Mg Tablet) 650 mg PO Q6H PRN PRN Reason: Headache/Pain, Scale 1-10 Al Hydroxide/Mg Hydroxide (Magnesium Hydrox/Alum Hydrox 30 Ml Oral.Susp) 30 ml PO Q6H PRN PRN Reason: Heartburn/Nausea Apixaban (Apixaban 5 Mg Tablet) 5 mg PO BID [facility] Last Admin: 11/23/24 09:10 Dose: 5 mg Atorvastatin Calcium (Atorvastatin Calcium 40 Mg Tablet) 40 mg PO BEDTIME [facility] Last Admin: 11/24/24 20:28 Dose: 40 mg Docusate Sodium (Docusate Sodium 100 Mg Capsule) 100 mg PO BID [facility] Last Admin: 11/25/24 09:18 Dose: Not Given Ferrous Sulfate (Ferrous Sulfate 324 Mg Tablet.) 324 mg PO DAILY [facility] Last Admin: 11/25/24 09:18 Dose: Not Given Finasteride (Finasteride 5 Mg Tablet) 5 mg PO DAILY [facility] Last Admin: 11/25/24 09:18 Dose: Not Given Magnesium Hydroxide (Milk Of Magnesia 30 Ml Oral.Susp) 30 ml PO DAILY PRN PRN Reason: Constipation Melatonin (Melatonin 3 Mg Tablet) 6 mg PO BEDTIME [facility] Last Admin: 11/24/24 20:28 Dose: 6 mg Nortriptyline HCl (Nortriptyline Hcl 25 Mg Capsule) 100 mg PO BEDTIME [facility] Last Admin: 11/24/24 20:26 Dose: 100 mg Olanzapine (Olanzapine 7.5 Mg Tablet) 7.5 mg PO BEDTIME [facility] Last Admin: 11/24/24 20:27 Dose: 7.5 mg Olanzapine (Olanzapine 5 Mg Tablet) 5 mg PO BID PRN PRN Reason: anxiety/restlessness Last Admin: 11/24/24 20:27 Dose: 5 mg Omeprazole (Omeprazole 40 Mg Capsule.) 40 mg PO DAILY@0630 [facility] Last Admin: 11/25/24 05:07 Dose: Not Given Ondansetron HCl (Ondansetron Odt 4 Mg Tab.Rapdis) 4 mg TRANSLINGU Q12H PRN PRN Reason: Nausea and Vomiting Last Admin: 11/24/24 20:29 Dose: 4 mg Oxybutynin Chloride (Oxybutynin Chloride 5 Mg Tablet) 5 mg PO DAILY [facility] Last Admin: 11/25/24 09:18 Dose: Not Given Polyethylene Glycol (Polyethylene Glycol 3350 17 Gm Powd.Pack) 17 gm PO DAILY [facility] Last Admin: 11/25/24 09:18 Dose: Not Given Senna (Sennosides 8.6 Mg Tablet) 8.6 mg PO BEDTIME PRN PRN Reason: Constipation Trazodone HCl (Trazodone Hcl 50 Mg Tablet) 50 mg PO BEDTIME MRX1 PRN PRN Reason: Insomnia Last Admin: 11/24/24 20:28 Dose: 50 mg Vitamin D (Cholecalciferol (Vitamin D3) 10 Mcg Tablet) 10 mcg PO DAILY [facility] Last Admin: 11/25/24 09:18 Dose: Not Given Allergies Allergies Allergy/AdvReac Type Severity Reaction Status Date / Time No Known Allergies Allergy Verified 11/14/24 10:15 [No Known Allergies*] Assessment & Plan Assessment & Plan (1) Pre-op evaluation: Status: Acute Code(s): Z01.818 - Encounter for other preprocedural examination Plan The pt is an 79-year-old male with PMH significant for prostate cancer, pulmonary embolism on Eliquis, vertigo, GERD, HLD, and MDD with psychotic features who was admitted to [facility] psych for increased anxiety and panic attacks. Hospitalist consult for ECT risk stratification. ECT Risk Stratification Pt with long hx of ECT Currently on monthly ECT maintenance outpatient, last ECT session 2.5 weeks ago RCRI 0 points No indication for additional cardiac workup Given PMH, HPI, and recent ECT sessions, there are no contraindications for the planned procedure Plan 1. Waiting for nortriptyline level. 2. Gather collateral information. I contact Dr. Sims who is on vacation who is coming back next Thursday 3. We will restart ECT as soon as possible. 11/19 continue current plans and regimen. Scheduled for ECT mid week next week 11/20: Continue current regimen and plans. 11/21: Continue current regimen and plans. Increase Zyprexa to 5 mg b.i.d. p.r.n.. Speech pathology consult. 11/22 speech and swallow came back within normal limits continue same treatment. 11/23 speech and swallow requested a gastroenherolgist consult and he should be NPO. 11/24 quail farmer involved that his barium swallow test suggested pureed diet. ECT tomorrow 11/25 ECT was canceled since he had a gastroscopy. Reason for continued inpatient stay Substantial Risk for: inability to function, rapid decompensation and med/psych decompensation Time Spent With Patient Time: Total time managing care of this patient today __20__ minutes.
[2024-11-25] MEDS: traZODone HCL 50 MG TABLET PO (20:00)
[2024-11-25] MEDS: Docusate Sodium 100 MG CAPSULE PO (20:00)
[2024-11-25] MEDS: Nortriptyline HCl 25 MG CAPSULE 100 MG PO (20:00)
[2024-11-25] MEDS: Atorvastatin Calcium 40 MG TABLET PO (20:00)
[2024-11-25] MEDS: OLANZapine 7.5 MG TABLET PO (20:00)
[2024-11-25] MEDS: Melatonin 3 MG TABLET 6 MG PO (20:00)
[2024-11-25 20:21] VITALS: BP 118/55; PULSE 98; RESP 19; TEMP 36.9; O2SAT 97
[2024-11-26] MEDS: Omeprazole 40 MG CAPSULE.DR PO (05:51)
[2024-11-26 08:19] VITALS: BP 122/71; PULSE 103; RESP 18; TEMP 37.1; O2SAT 95
[2024-11-26] MEDS: Cholecalciferol (Vitamin D3) 10 MCG TABLET PO (09:08)
[2024-11-26] MEDS: Docusate Sodium 100 MG CAPSULE PO ×2 (09:08→19:54)
[2024-11-26] MEDS: polyethylene glycoL 3350 17 GM POWD.PACK PO (09:08)
[2024-11-26] MEDS: oxyBUTYnin chloride 5 MG TABLET PO (09:08)
[2024-11-26] MEDS: Ferrous Sulfate 324 MG TABLET.DR PO (09:08)
[2024-11-26] MEDS: Finasteride 5 MG TABLET PO (09:08)
[2024-11-26] MEDS: Apixaban 5 MG TABLET PO ×2 (09:08→19:53)
--- NOTE | 2024-11-26 11:14 | MHC.SLORD ---
Speech Language Pathology Order Status: Pt seen for dysphagia treatment, pt lying in bed, c/o back and foot pain. Pt refused breakfast, refused PO with LIBRARY CLERK. RN consulted. Pt taking meds crushed in puree without difficulty. texted to change diet per GI recommendations to DEBBIE newton updated upon MD approval. LIBRARY CLERK continues to follow.
--- NOTE | 2024-11-26 12:15 | P.PNPSI_ITS ---
Subjective Subjective Date of Service: 11/26/24 Reason For Visit: SI Interim History: Patient seen. Patient isolating in room. Patient had an episode of vomiting earlier today. He denies ongoing symptoms, denies abdominal pain. Subdued. Low tone speech and sometimes not fully comprehensible. Denies SI/HI/AVH Later in the day had an unwitnessed fall. Review of Systems Review of Systems Anxiety. Possible swallowing problems Yes all other systems are reviewed and are negative Mental Status Exam Mental Status Exam Patient Appearance: Unkempt Patient Orientation: Person Level of Consciousness: Awake and Appropriate Patient Behavior: Guarded and Passive Mood Description: Withdrawn Affect Description: Constricted Patient Cognition Impaired: Yes Ability to Follow Directions: Good Speech Pattern: Clear Diagnostics Vital Signs (24Hr): Vital Signs - 24 hr 11/25/24 20:21 11/26/24 08:19 Temperature 98.4 F 98.8 F Pulse Rate 98 103 H Respiratory Rate 19 18 Blood Pressure 118/55 L 122/71 Pulse Oximetry 97 95 Oxygen Delivery Method Room Air Room Air BMI result Body Mass Index 27.4 Labs 11/14/24 11:19 11/14/24 18:48 Imaging Radiology Impressions: ITS Impressions Barium Swallow X-Ray 11/24/24 14:00 IMPRESSION: 1. Patulous esophagus with moderately disorganized peristalsis consistent with esophageal dysmotility. 2. Granular appearance of the esophageal mucosa. In addition there are multiple areas of contrast pooling in the mid esophagus. These findings are suggestive of erosive esophagitis. Mild correlation with EGD. 3. Regular mobile filling defects located in the distal esophagus above the GE junction that likely represent retained food. 4. Moderate narrowing of the GE junction that represents achalasia or a benign stricture. 5. Large type IV paraesophageal hernia, with the majority the fundus located within the thoracic cavity. This has increased since prior study in 2020. 6. 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 7. Thickened appearance of the gastric rugal folds, suggestive of gastritis. 8. Thickened appearance of the duodenal folds, suggestive of duodenitis. This procedure was performed by Zack Padgett PA-C, and supervised by Dr. Schwab Electronically signed by: Donaldo Schwab MD 11/25/2024 08:08 AM [facility] Medications Medications Current Medications Acetaminophen (Acetaminophen 325 Mg Tablet) 650 mg PO Q6H PRN PRN Reason: Headache/Pain, Scale 1-10 Al Hydroxide/Mg Hydroxide (Magnesium Hydrox/Alum Hydrox 30 Ml Oral.Susp) 30 ml PO Q6H PRN PRN Reason: Heartburn/Nausea Apixaban (Apixaban 5 Mg Tablet) 5 mg PO BID [facility] Last Admin: 11/26/24 09:08 Dose: 5 mg Atorvastatin Calcium (Atorvastatin Calcium 40 Mg Tablet) 40 mg PO BEDTIME [facility] Last Admin: 11/25/24 20:00 Dose: 40 mg Docusate Sodium (Docusate Sodium 100 Mg Capsule) 100 mg PO BID [facility] Last Admin: 11/26/24 09:08 Dose: 100 mg Ferrous Sulfate (Ferrous Sulfate 324 Mg Tablet.) 324 mg PO DAILY [facility] Last Admin: 11/26/24 09:08 Dose: 324 mg Finasteride (Finasteride 5 Mg Tablet) 5 mg PO DAILY [facility] Last Admin: 11/26/24 09:08 Dose: 5 mg Magnesium Hydroxide (Milk Of Magnesia 30 Ml Oral.Susp) 30 ml PO DAILY PRN PRN Reason: Constipation Melatonin (Melatonin 3 Mg Tablet) 6 mg PO BEDTIME [facility] Last Admin: 11/25/24 20:00 Dose: 6 mg Nortriptyline HCl (Nortriptyline Hcl 25 Mg Capsule) 100 mg PO BEDTIME [facility] Last Admin: 11/25/24 20:00 Dose: 100 mg Olanzapine (Olanzapine 7.5 Mg Tablet) 7.5 mg PO BEDTIME [facility] Last Admin: 11/25/24 20:00 Dose: 7.5 mg Olanzapine (Olanzapine 5 Mg Tablet) 5 mg PO BID PRN PRN Reason: anxiety/restlessness Last Admin: 11/24/24 20:27 Dose: 5 mg Omeprazole (Omeprazole 40 Mg Capsule.) 40 mg PO DAILY@0630 [facility] Last Admin: 11/26/24 05:51 Dose: 40 mg Ondansetron HCl (Ondansetron Odt 4 Mg Tab.Rapdis) 4 mg TRANSLINGU Q12H PRN PRN Reason: Nausea and Vomiting Last Admin: 11/24/24 20:29 Dose: 4 mg Oxybutynin Chloride (Oxybutynin Chloride 5 Mg Tablet) 5 mg PO DAILY [facility] Last Admin: 11/26/24 09:08 Dose: 5 mg Polyethylene Glycol (Polyethylene Glycol 3350 17 Gm Powd.Pack) 17 gm PO DAILY [facility] Last Admin: 11/26/24 09:08 Dose: 17 gm Senna (Sennosides 8.6 Mg Tablet) 8.6 mg PO BEDTIME PRN PRN Reason: Constipation Trazodone HCl (Trazodone Hcl 50 Mg Tablet) 50 mg PO BEDTIME MRX1 PRN PRN Reason: Insomnia Last Admin: 11/25/24 20:00 Dose: 50 mg Vitamin D (Cholecalciferol (Vitamin D3) 10 Mcg Tablet) 10 mcg PO DAILY [facility] Last Admin: 11/26/24 09:08 Dose: 10 mcg Allergies Allergies Allergy/AdvReac Type Severity Reaction Status Date / Time No Known Allergies Allergy Verified 11/14/24 10:15 [No Known Allergies*] Assessment & Plan Assessment & Plan (1) Pre-op evaluation: Status: Acute Code(s): Z01.818 - Encounter for other preprocedural examination Plan The pt is an 79-year-old male with PMH significant for prostate cancer, pulmonary embolism on Eliquis, vertigo, GERD, HLD, and MDD with psychotic features who was admitted to [facility] for increased anxiety and panic attacks. Hospitalist consult for ECT risk stratification. ECT Risk Stratification Pt with long hx of ECT Currently on monthly ECT maintenance outpatient, last ECT session 2.5 weeks ago RCRI 0 points No indication for additional cardiac workup Given PMH, HPI, and recent ECT sessions, there are no contraindications for the planned procedure Plan 1. Waiting for nortriptyline level. 2. Gather collateral information. I contact Dr. Sims who is on vacation who is coming back next Thursday 3. We will restart ECT as soon as possible. 11/19 continue current plans and regimen. Scheduled for ECT mid week next week 11/20: Continue current regimen and plans. 11/21: Continue current regimen and plans. Increase Zyprexa to 5 mg b.i.d. p.r.n.. Speech pathology consult. 11/22 speech and swallow came back within normal limits continue same treatment. 11/23 speech and swallow requested a gastroenherolgist consult and he should be NPO. 11/24 ob tech involved that his barium swallow test suggested pureed diet. ECT tomorrow 11/25 ECT was canceled since he had a gastroscopy. 11/26: Continue current management and treatment plan. 1:1 while awake. Reason for continued inpatient stay Substantial Risk for: inability to function and rapid decompensation Time Spent With Patient Time: Total time managing care of this patient today ____ minutes.
[2024-11-26] MEDS: Ondansetron ODT 4 MG TAB.RAPDIS TRANSLINGU (12:21)
[2024-11-26 17:03] VITALS: BP 126/68; PULSE 106; RESP 18; TEMP 37.1; O2SAT 94
--- NOTE | 2024-11-26 17:12 | PM.EVENT ---
Event Note Date of Service: 11/26/24 Event Note: rapid response called around 5:10 pm for unwitnessed fall the patient was in bathroom and reports he slipped and fell on his side hitting his head he was able to stand and went back to his bed. he was moving all extremities upon interview. alert and oriented to self and place. given head injury will check CT scan. Consider XR if he complains of any pain but overall exam no tenderness noted and he was moving all extremities. Time Spent With Patient Time: Total time managing care of this patient today ____ minutes.
--- NOTE | 2024-11-26 17:26 | PC.NURSE ---
Addendum entered by Sheyla Tompkins RN 11/26/24 18:11: Updated [id number] Keisha Galarza regarding fall via telephone. Original Note: At approximately 1658 this technical writer and editor was alerted that José Luis had an unwitnessed fall in the bathroom and he reported he hit his head. José Luis was found on the kneeling on the floor by the bed awake and alert. He denied LOC. He reported he hit his head and denied any pain at the time of the assessment. VS 37.1 (Celcius), 106, 18, 126/68, 94%. Neuro signs grossly intact. He denied any pain and positive range of motion performed to all extremities. Rapid response called per hospital policy and Dr. Velasquez at bedside and stated a cervical collar was not needed. Data Warehouse Specialist Katie Singh at bedside. STAT head CT ordered. Dr. Ramon also notified of fall. Post fall intervention includes bed alarm and needing supervision in bathroom.
[2024-11-26] MEDS: OLANZapine 5 MG TABLET PO (18:23)
[2024-11-26 19:52] VITALS: BP 110/65; PULSE 112; RESP 18; TEMP 37.7; O2SAT 95
[2024-11-26] MEDS: Atorvastatin Calcium 40 MG TABLET PO (19:53)
[2024-11-26] MEDS: OLANZapine 7.5 MG TABLET PO (19:53)
[2024-11-26] MEDS: Nortriptyline HCl 25 MG CAPSULE 100 MG PO (19:54)
[2024-11-26] MEDS: Melatonin 3 MG TABLET 6 MG PO (19:55)
[2024-11-27] MEDS: Omeprazole 40 MG CAPSULE.DR PO (05:41)
[2024-11-27 07:52] VITALS: BP 118/77; PULSE 102; RESP 18; TEMP 36.9; O2SAT 94
[2024-11-27] MEDS: OLANZapine 5 MG TABLET PO (08:12)
[2024-11-27] MEDS: Docusate Sodium 100 MG CAPSULE PO ×2 (08:13→19:37)
[2024-11-27] MEDS: oxyBUTYnin chloride 5 MG TABLET PO (08:13)
[2024-11-27] MEDS: Apixaban 5 MG TABLET PO ×2 (08:13→19:37)
[2024-11-27] MEDS: polyethylene glycoL 3350 17 GM POWD.PACK PO (08:13)
[2024-11-27] MEDS: Ferrous Sulfate 324 MG TABLET.DR PO (08:13)
[2024-11-27] MEDS: Finasteride 5 MG TABLET PO (08:13)
--- NOTE | 2024-11-27 11:13 | HO.PSYCHPN ---
Subjective Subjective Date of Service: 11/27/24 Reason For Visit: SI Interim History: Patient seen. He had a fall last night. He reportedly hit his head. He denies any symptoms like headaches, n/v/vision changes.He had a head CT which was negative. Patient in wheelchair now and on 1:1 while awake. Subdued. Low tone speech and sometimes not fully comprehensible. Denies SI/HI/AVH Review of Systems Review of Systems Anxiety. Possible swallowing problems Yes all other systems are reviewed and are negative Mental Status Exam Mental Status Exam Patient Appearance: Unkempt Patient Orientation: Person Level of Consciousness: Awake and Appropriate Patient Behavior: Guarded and Passive Mood Description: Withdrawn Affect Description: Constricted Patient Cognition Impaired: Yes Ability to Follow Directions: Good Speech Pattern: Clear Diagnostics Vital Signs (24Hr): Vital Signs - 24 hr 11/26/24 17:03 11/26/24 19:52 11/27/24 07:52 Temperature 98.8 F 99.8 F 98.4 F Pulse Rate 106 H 112 H 102 H Respiratory Rate 18 18 18 Blood Pressure 126/68 110/65 118/77 Pulse Oximetry 94 95 94 Oxygen Delivery Method Room Air Room Air Room Air BMI result Body Mass Index 27.4 Labs 11/14/24 11:19 11/14/24 18:48 Imaging Radiology Impressions: ITS Impressions Barium Swallow X-Ray 11/24/24 14:00 IMPRESSION: 1. Patulous esophagus with moderately disorganized peristalsis consistent with esophageal dysmotility. 2. Granular appearance of the esophageal mucosa. In addition there are multiple areas of contrast pooling in the mid esophagus. These findings are suggestive of erosive esophagitis. Mild correlation with EGD. 3. Regular mobile filling defects located in the distal esophagus above the GE junction that likely represent retained food. 4. Moderate narrowing of the GE junction that represents achalasia or a benign stricture. 5. Large type IV paraesophageal hernia, with the majority the fundus located within the thoracic cavity. This has increased since prior study in 2020. 6. 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 7. Thickened appearance of the gastric rugal folds, suggestive of gastritis. 8. Thickened appearance of the duodenal folds, suggestive of duodenitis. This procedure was performed by Zack Padgett PA-C, and supervised by Dr. Schwab Electronically signed by: Donaldo Schwab MD 11/25/2024 08:08 AM [facility] Medications Medications Current Medications Acetaminophen (Acetaminophen 325 Mg Tablet) 650 mg PO Q6H PRN PRN Reason: Headache/Pain, Scale 1-10 Al Hydroxide/Mg Hydroxide (Magnesium Hydrox/Alum Hydrox 30 Ml Oral.Susp) 30 ml PO Q6H PRN PRN Reason: Heartburn/Nausea Apixaban (Apixaban 5 Mg Tablet) 5 mg PO BID [facility] Last Admin: 11/27/24 08:13 Dose: 5 mg Atorvastatin Calcium (Atorvastatin Calcium 40 Mg Tablet) 40 mg PO BEDTIME [facility] Last Admin: 11/26/24 19:53 Dose: 40 mg Docusate Sodium (Docusate Sodium 100 Mg Capsule) 100 mg PO BID [facility] Last Admin: 11/27/24 08:13 Dose: 100 mg Ferrous Sulfate (Ferrous Sulfate 324 Mg Tablet.) 324 mg PO DAILY [facility] Last Admin: 11/27/24 08:13 Dose: 324 mg Finasteride (Finasteride 5 Mg Tablet) 5 mg PO DAILY [facility] Last Admin: 11/27/24 08:13 Dose: 5 mg Magnesium Hydroxide (Milk Of Magnesia 30 Ml Oral.Susp) 30 ml PO DAILY PRN PRN Reason: Constipation Melatonin (Melatonin 3 Mg Tablet) 6 mg PO BEDTIME [facility] Last Admin: 11/26/24 19:55 Dose: 6 mg Nortriptyline HCl (Nortriptyline Hcl 25 Mg Capsule) 100 mg PO BEDTIME [facility] Last Admin: 11/26/24 19:54 Dose: 100 mg Olanzapine (Olanzapine 7.5 Mg Tablet) 7.5 mg PO BEDTIME [facility] Last Admin: 11/26/24 19:53 Dose: 7.5 mg Olanzapine (Olanzapine 5 Mg Tablet) 5 mg PO BID PRN PRN Reason: anxiety/restlessness Last Admin: 11/27/24 08:12 Dose: 5 mg Omeprazole (Omeprazole 40 Mg Capsule.) 40 mg PO DAILY@0630 [facility] Last Admin: 11/27/24 05:41 Dose: 40 mg Ondansetron HCl (Ondansetron Odt 4 Mg Tab.Rapdis) 4 mg TRANSLINGU Q12H PRN PRN Reason: Nausea and Vomiting Last Admin: 11/26/24 12:21 Dose: 4 mg Oxybutynin Chloride (Oxybutynin Chloride 5 Mg Tablet) 5 mg PO DAILY [facility] Last Admin: 11/27/24 08:13 Dose: 5 mg Polyethylene Glycol (Polyethylene Glycol 3350 17 Gm Powd.Pack) 17 gm PO DAILY [facility] Last Admin: 11/27/24 08:13 Dose: 17 gm Senna (Sennosides 8.6 Mg Tablet) 8.6 mg PO BEDTIME PRN PRN Reason: Constipation Trazodone HCl (Trazodone Hcl 50 Mg Tablet) 50 mg PO BEDTIME MRX1 PRN PRN Reason: Insomnia Last Admin: 11/25/24 20:00 Dose: 50 mg Vitamin D (Cholecalciferol (Vitamin D3) 10 Mcg Tablet) 10 mcg PO DAILY [facility] Last Admin: 11/27/24 08:19 Dose: Not Given Allergies Allergies Allergy/AdvReac Type Severity Reaction Status Date / Time No Known Allergies Allergy Verified 11/14/24 10:15 [No Known Allergies*] Assessment & Plan Assessment & Plan (1) Pre-op evaluation: Status: Acute Code(s): Z01.818 - Encounter for other preprocedural examination Plan The pt is an 79-year-old male with PMH significant for prostate cancer, pulmonary embolism on Eliquis, vertigo, GERD, HLD, and MDD with psychotic features who was admitted to [facility] for increased anxiety and panic attacks. Hospitalist consult for ECT risk stratification. ECT Risk Stratification Pt with long hx of ECT Currently on monthly ECT maintenance outpatient, last ECT session 2.5 weeks ago RCRI 0 points No indication for additional cardiac workup Given PMH, HPI, and recent ECT sessions, there are no contraindications for the planned procedure Plan 1. Waiting for nortriptyline level. 2. Gather collateral information. I contact Dr. Sims who is on vacation who is coming back next Thursday 3. We will restart ECT as soon as possible. 11/19 continue current plans and regimen. Scheduled for ECT mid week next week 11/20: Continue current regimen and plans. 11/21: Continue current regimen and plans. Increase Zyprexa to 5 mg b.i.d. p.r.n.. Speech pathology consult. 11/22 speech and swallow came back within normal limits continue same treatment. 11/23 speech and swallow requested a gastroenherolgist consult and he should be NPO. 11/24 adjunct writing instructor involved that his barium swallow test suggested pureed diet. ECT tomorrow 11/25 ECT was canceled since he had a gastroscopy. 11/26: Continue current management and treatment plan. 1:1 while awake. 11/27: Utilizing wheelchair. 1:1 while awake. 5 min checks when sleeping. Reason for continued inpatient stay Substantial Risk for: inability to function and rapid decompensation Time Spent With Patient Time: Total time managing care of this patient today ____ minutes.
[2024-11-27] MEDS: Melatonin 3 MG TABLET 6 MG PO (19:37)
[2024-11-27] MEDS: Nortriptyline HCl 25 MG CAPSULE 100 MG PO (19:38)
[2024-11-27] MEDS: OLANZapine 7.5 MG TABLET PO (19:38)
[2024-11-27] MEDS: Atorvastatin Calcium 40 MG TABLET PO (19:38)
[2024-11-27 20:00] VITALS: BP 96/68; PULSE 114; TEMP 36.6; O2SAT 94
--- NOTE | 2024-11-28 | ECG_ITS ---
Test Reason : tachycardia Blood Pressure : */* mmHG Vent. Rate : 150 BPM Atrial Rate : 300 BPM P-R Int : * ms QRS Dur : 116 ms QT Int : 254 ms P-R-T Axes : 265 -35 53 degrees QTcB Int : 401 ms Atrial flutter with 2:1 A-V conduction Left axis deviation Abnormal ECG When compared with ECG of 18-Nov-2024 03:49, Atrial flutter has replaced Sinus rhythm Vent. rate has increased by 51 bpm Referred By: Shorty Benitez Electronically Signed By: ZORA TILLMAN
[2024-11-28 05:38] VITALS: BP 113/75; PULSE 154; RESP 28; TEMP 36.4
[2024-11-28 05:39] VITALS: BP 113/75; PULSE 154; RESP 28; TEMP 36.4; O2SAT 94
--- NOTE | 2024-11-28 06:33 | PM.PSYDC ---
DS: Providers Provider Date of Service: 11/28/24 Date of admission: 11/14/24 16:17 Date of discharge: 11/28/24 Primary care physician: Unknown Physician Attending physician on admission: Tate Amaya Consults: 11/16/24 11:55 Consult to Hospitalist Routine Comment: Consulting Provider: [facility] Hospitalists Reason For Exam: ECT clearance 11/23/24 14:45 Consult to Gastroenterology Routine Consulting Provider: Iftikhar Ramirez Reason for consultation: S&S requested for dysphagia Has provider been notified: Yes Attending physician on discharge: Shorty Benitez DS: Diagnosis Discharge Diagnosis (1) Pre-op evaluation: Status: Acute DS: Medications Discharge Medications Home Medications: Home Medications ?Medication ?Instructions ?Recorded ?Confirmed omeprazole 40 mg capsule,delayed 40 mg PO DAILY@0630 11/14/24 11/14/24 release polyethylene glycol 3350 17 17 g PO DAILY 11/14/24 11/14/24 gram/dose oral powder (Miralax) sennosides 8.6 mg tablet (Senna 8.6 mg PO BEDTIME PRN Constipation 11/14/24 11/14/24 Lax) Previous Rx's ?Medication ?Instructions ?Recorded apixaban 5 mg tablet (Eliquis) 5 mg PO BID #60 tabs 09/20/21 atorvastatin 40 mg tablet 1 tab PO BEDTIME 30 days #30 tabs 09/20/21 cholecalciferol (vitamin D3) 10 10 mcg PO DAILY 30 days #30 tabs 09/20/21 mcg (400 unit) tablet (Vitamin D3) docusate sodium 100 mg capsule 100 mg PO BID 60 days #120 caps 09/20/21 (Colace) ferrous sulfate 325 mg (65 mg 325 mg PO DAILY 30 days #30 tabs 09/20/21 iron) tablet finasteride 5 mg tablet 1 tab PO DAILY 30 days #30 tabs 09/20/21 melatonin 3 mg tablet 6 mg (2 x 3 mg) PO BEDTIME 30 days 09/20/21 #60 tabs nortriptyline 25 mg capsule 75 mg (3 x 25 mg) PO BEDTIME 30 09/20/21 days #90 caps olanzapine 7.5 mg tablet 7.5 mg PO BEDTIME 30 days #30 tabs 09/20/21 oxybutynin chloride 5 mg tablet 5 mg PO DAILY 30 days #30 tabs 09/20/21 ondansetron 4 mg disintegrating 4 mg translingual Q12H PRN Nausea 11/28/24 tablet And Vomiting #0 tabs Mental Status Exam Mental Status Exam Narrative: transferred to medical floor Data Imaging Diagnostic Imaging Impressions Barium Swallow X-Ray 11/24/24 14:00 IMPRESSION: 1. Patulous esophagus with moderately disorganized peristalsis consistent with esophageal dysmotility. 2. Granular appearance of the esophageal mucosa. In addition there are multiple areas of contrast pooling in the mid esophagus. These findings are suggestive of erosive esophagitis. Mild correlation with EGD. 3. Regular mobile filling defects located in the distal esophagus above the GE junction that likely represent retained food. 4. Moderate narrowing of the GE junction that represents achalasia or a benign stricture. 5. Large type IV paraesophageal hernia, with the majority the fundus located within the thoracic cavity. This has increased since prior study in 2020. 6. 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 7. Thickened appearance of the gastric rugal folds, suggestive of gastritis. 8. Thickened appearance of the duodenal folds, suggestive of duodenitis. This procedure was performed by Zack Padgett PA-C, and supervised by Dr. Schwab Electronically signed by: Donaldo Schwab MD 11/25/2024 08:08 AM [facility] DS: Summary Hospital Course Hospital Course: The pt is an 79-year-old male with PMH significant for prostate cancer, pulmonary embolism on Eliquis, vertigo, GERD, HLD, and MDD with psychotic features who was admitted to [facility] for increased anxiety and panic attacks. Hospitalist consult for ECT risk stratification. ECT Risk Stratification Pt with long hx of ECT Currently on monthly ECT maintenance outpatient, last ECT session 2.5 weeks ago Hospital course: Scheduled for ECT Increase Zyprexa to 5 mg b.i.d. p.r.n.. Speech pathology consult. speech and swallow came back within normal limits continue same treatment. payment specialist involved that his barium swallow test suggested pureed diet. 1:1 while awake. TRANSFERRED to medical floor on 11/28/24 pt Tachycardic 154, tachynpenic 28 and transferred to medical floor Status at Discharge Overall status at discharge: patient is not back to baseline Time Spent with Patient Time attestation: Total time managing care of this patient today ____ minutes. Time spent: Less than 30 minutes Discharge Plan Discharge Anticipated Discharge Date/Time: 11/28/24 06:32 Patient Disposition: Xfer Other Discharge Diagnosis: MDD, severe with psychosis Referrals: Physician,Unknown J [Primary Care Provider] - 1 Week Discharge Medications: New ondansetron 4 mg Tablet,Disintegrating 4 mg translingual Q12H PRN (Reason: Nausea And Vomiting) Qty: 0 0RF Continued melatonin 3 mg Tablet 6 mg PO BEDTIME 30 Days Qty: 60 0RF olanzapine 7.5 mg Tablet 7.5 mg PO BEDTIME 30 Days Qty: 30 0RF nortriptyline 25 mg Capsule 75 mg PO BEDTIME 30 Days Qty: 90 0RF cholecalciferol (vitamin D3) [Vitamin D3] 10 mcg (400 unit) Tablet 10 mcg PO DAILY 30 Days Qty: 30 0RF atorvastatin 40 mg tablet 1 tab PO BEDTIME 30 Days Qty: 30 0RF ferrous sulfate 325 mg (65 mg iron) Tablet 325 mg PO DAILY 30 Days Qty: 30 0RF docusate sodium [Colace] 100 mg Capsule 100 mg PO BID 60 Days Qty: 120 0RF oxybutynin chloride 5 mg tablet 5 mg PO DAILY 30 Days Qty: 30 0RF finasteride 5 mg tablet 1 tab PO DAILY 30 Days Qty: 30 0RF Eliquis 5 mg tablet 5 mg PO BID Qty: 60 0RF Rx Instructions: To start on 09/26. omeprazole 40 mg capsule,delayed release(DR/EC) 40 mg PO DAILY@0630 polyethylene glycol 3350 [Miralax] 17 gram/dose Powder 17 g PO DAILY sennosides [Senna Lax] 8.6 mg tablet 8.6 mg PO BEDTIME PRN (Reason: Constipation) Discharge Orders: Discharge Order (Routine); Ordered 11/28/24 Ordered By: Shorty Benitez Diet: per medical team Activity on Discharge: As tolerated Stand Alone Forms: Patient Portal Discharge page Print Language: Scottish Care Plan Goals: transferred to medical floor Health Concerns: transferred to medical floor Plan of Treatment: transferred to medical floor Assessment: transferred to medical floor
[2024-11-28 07:07] LABS: Glucose, Whole Blood 210 mg/dL (60-115)
[2024-11-28 16:15] LABS: MANUAL DIFF FLAG NO
[2024-11-28 16:21] LABS: Basophils Percent Auto 0.2 % (0-2); Hematocrit 33.9 % (42.0-52.0); Hemoglobin 11.4 g/dl (14.0-18.0); Imm Gran Pct Auto 0.8 % (0.0-0.4); Lymphocytes Absolute Auto 0.5 X10*3/uL (1.2-4.9); Lymphocytes Percent Auto 3.8 % (20-40); Mean Corpuscular HGB Conc 33.6 g/dl (31.0-36.0); Mean Corpuscular Hemoglobin 33.6 pg (27.0-33.0); Mean Platelet Volume 9.7 fL (9.4-12.4); Monocytes Percent Auto 7.3 % (2-11); Neutrophils Absolute Auto 11.4 x10*3/uL (2.0-8.3); Neutrophils Percent Auto 87.9 % (45-73); Platelet Count 199 X10*3/uL (160-400); Red Blood Count 3.39 X10*6/uL (4.60-5.80)
[2024-11-28 16:54] LABS: B Type Natriuretic Peptide 147 pg/mL (<100)
[2024-11-28 17:01] LABS: Alanine Aminotransferase 48 U/L (0-40); Albumin Level 2.9 g/dL (3.5-5.0); Anion Gap 13 (12-20); Aspartate Amino Transferase 76 U/L (5-37); Blood Urea Nitrogen 50 mg/dL (9-16); Calcium 8.4 mg/dL (8.4-10.2); Carbon Dioxide 21 mmol/L (22-29); Chloride 111 mmol/L (96-108); Creatinine Clr Calc Pharmacy 48.9; Estimated Glomerular Filt Rate 55; Glucose Random 163 mg/dL (60-115); Potassium 3.7 mmol/L (3.3-5.1); Sodium 141 mmol/L (135-145)
[2024-11-28 17:20] LABS: Alkaline Phosphatase 146 U/L (39-117); TSH reflex Free T4 0.15 uIU/mL (0.32-4.0)
[2024-11-28 17:56] LABS: Troponin-I High Sensitivity 27.7 ng/L (<3.5-35.0)
== END 2024-11-28 06:50 | disposition other institution (70) | DRG 885 ==
LOC: HO.ED 13:09 → HO.PGERI 16:27
PROVIDERS: Physician Assistant; Physician Assistant Medical; Psychiatry & Neurology Psychiatry; Admitting Provider Social Worker; Emergency Provider Emergency Medicine; Visit Provider Social Worker
PROC: GZB2ZZZ Electroconvulsive Therapy, Bilateral-Single Seizure (ICD-10-PCS; CPT 90870; principal; 2024-11-23 07:30)
DX: F33.3 Major depressive disorder, recurrent, severe with psychotic symptoms (principal); R45.851 Suicidal ideations; R13.12 Dysphagia, oropharyngeal phase; Z20.822 Contact with and (suspected) exposure to COVID-19; Z86.711 Personal history of pulmonary embolism; Z85.46 Personal history of malignant neoplasm of prostate; Z79.01 Long term (current) use of anticoagulants; Z79.51 Long term (current) use of inhaled steroids; Z79.899 Other long term (current) drug therapy
CPT/HCPCS: 0241U; 36415; 70450; 74220; 80053; 80061; 80143; 80179; 80307; 80335; 81003; 82607; 82746; 82947; 83036; 83690; 83735; 83880; 84443; 84484; 85025; 90870; 92526; 92610; 93005; 99284; J0330; J1805; J2060; J2250; J2359; S9485

== ENCOUNTER → 2024-11-14 10:47 | Outpatient (BNV) | payer MEDICARE, OTHER, SELFPAY | PROVIDERS: Emergency Provider Emergency Medicine; Visit Provider Internal Medicine Cardiovascular Disease | DX: R00.2 Palpitations (principal); R00.0 Tachycardia, unspecified; R94.31 Abnormal electrocardiogram [ECG] [EKG] | CPT/HCPCS: 93010 ==

== ENCOUNTER 2024-11-14 16:17 | Outpatient (BNV) | payer MEDICARE, OTHER, SELFPAY | END 2024-11-18 03:49 | PROVIDERS: Admitting Provider Social Worker; Emergency Provider Emergency Medicine; Visit Provider Internal Medicine Cardiovascular Disease | DX: I49.1 Atrial premature depolarization (principal) | CPT/HCPCS: 93010 ==

== ENCOUNTER 2024-11-14 16:17 | Outpatient (BNV) | payer MEDICARE, OTHER, SELFPAY | END 2024-11-26 19:04 | PROVIDERS: Admitting Provider Social Worker; Emergency Provider Emergency Medicine; Visit Provider Radiology Diagnostic Radiology | DX: S09.90XA Unspecified injury of head, initial encounter (principal) | CPT/HCPCS: 70450 ==

== ENCOUNTER 2024-11-14 16:17 | Outpatient (BNV) | payer MEDICARE, OTHER, SELFPAY | END 2024-11-16 19:55 | PROVIDERS: Admitting Provider Social Worker; Emergency Provider Emergency Medicine; Visit Provider Internal Medicine Cardiovascular Disease | DX: R07.9 Chest pain, unspecified (principal); R00.0 Tachycardia, unspecified; R94.31 Abnormal electrocardiogram [ECG] [EKG] | CPT/HCPCS: 93010 ==

== ENCOUNTER 2024-11-14 16:17 | Outpatient (BNV) | payer MEDICARE, OTHER, SELFPAY | END 2024-11-24 14:00 | PROVIDERS: Admitting Provider Social Worker; Emergency Provider Emergency Medicine; Visit Provider Physician Assistant Surgical | DX: R13.10 Dysphagia, unspecified (principal) | CPT/HCPCS: 74221 ==

== ENCOUNTER → 2024-11-14 16:17 | Outpatient (BNV) | payer MEDICARE, OTHER, SELFPAY | PROVIDERS: Admitting Provider Social Worker; Emergency Provider Emergency Medicine; Visit Provider Psychiatry & Neurology Psychiatry | DX: F33.3 Major depressive disorder, recurrent, severe with psychotic symptoms (principal) | CPT/HCPCS: 90870 ==

== ENCOUNTER → 2024-11-14 16:17 | Outpatient (BNV) | payer MEDICARE, OTHER, SELFPAY | PROVIDERS: Admitting Provider Social Worker; Emergency Provider Emergency Medicine; Visit Provider Student in an Organized Health Care Education/Training Program | DX: Z02.2 Encounter for examination for admission to residential institution (principal) | CPT/HCPCS: 99429 ==

== ENCOUNTER → 2024-11-14 16:17 | Outpatient (BNV) | payer MEDICARE, OTHER, SELFPAY | PROVIDERS: Admitting Provider Social Worker; Emergency Provider Emergency Medicine; Visit Provider Psychiatry & Neurology Psychiatry | DX: F33.3 Major depressive disorder, recurrent, severe with psychotic symptoms (principal) | CPT/HCPCS: 90792; 99232 ==

== ENCOUNTER → 2024-11-25 10:53 | Day surgery (SDC) | payer MEDICARE, OTHER, SELFPAY ==
--- OUTSIDE RECORDS SUMMARY | 2024-11-25 11:57 | XMS_ITS | Patient Health Record ---
Author Organization [facility] Address [address] [place] [phone] Care Team Providers Care Coupon Manifest Clerk Name Role Phone Salena JAEL Zaida Primary Care Provider Unavailab Jose Alejandro Jones Jr Unavailable ALLERGIES No Known Allergies RESULTS Component Value Reference Range Notes FL barium swallow (Not yet r eviewed by provider) Interpretation: Performing Lab: Notes/Report: [address] [address] Fluoroscopy Report Signed Patient: Aquiles Galarza MR#: [id number] 47 : 1945 Acct:[id number] Age/Sex: 79 / M ADM Date: 11/14/24 Loc: HO.PGERI [id number]: Kalyani Gan RADIO REPAIRMAN Ordering Physician: Jose Alejandro White MD Date of Service: 11/24/24 Procedure(s): FL barium swallow Accession Number(s): [id number] cc: Jose Alejandro White MD; Physician,Unknown EXAMINATION: XR FLUOROSCOPY UPPER GI WITH AIR CLINICAL INFORMATION: Dysphagia COMPARISON: Barium swallow 2020 TECHNIQUE: Fluoroscopic air contrast upper GI examination was performed utilizing standard techniques with thin and thick barium and effervescent granules. Numerous spot images were obtained. FINDINGS: Lateral cine images of the oropharynx and hypopharynx demonstrate normal swallow mechanism with normal epiglottic inversion and soft palate elevation. No tracheal penetration, glottic or subglottic aspiration identified. No nasopharyngeal reflux present. Hypopharyngeal structures appear normal without evidence of mass or diverticulum. There was no significant cricopharyngeal achalasia. Dual and single contrast images of the esophagus demonstrate a very dilated esophagus. The esophageal mucosa has a granular appearance suggestive of esophagitis. There are a few focal areas of contrast pooling in the mid esophageal that may represent small mucosal erosions. There is a large well-circumscribed mixed density in the distal esophagus above the GE junction that likely represents retained food. Esophageal peristalsis is moderately disorganized. There is moderate narrowing of the GE junction that likely represents achalasia or a benign stricture. A large type 4 paraesophageal hernia is present, with the majority the fundus located within the thoracic cavity. No significant gastroesophageal reflux was seen during the course of the examination and on reflux views. Dual contrast and single contrast images of the stomach demonstrate organoaxial rotation of the stomach without evidence of obstruction. The gastric rugal folds have a thickened appearance, suggestive of gastritis. No masses or ulcerations are seen. Contrast freely passed into the gastric antrum and duodenal bulb without delay. Single and air-contrast images of the duodenal bulb demonstrate no abnormality. The duodenal folds have a thickened appearance, suggestive of enteritis. FLUOROSCOPY TIME: 4 minutes 40 seconds Number of Spot Images: 12 Number of Cine: 12 DOSE AREA PRODUCT: 2599 uGy-m2 (microgray-meter squared) FL/FL barium swallow IMPRESSION: 1. Patulous esophagus with moderately disorganized peristalsis consistent with esophageal dysmotility. 2. Granular appearance of the esophageal mucosa. In addition there are multiple areas of contrast pooling in the mid esophagus. These findings are suggestive of erosive esophagitis. Mild correlation with EGD. 3. Regular mobile filling defects located in the distal esophagus above the GE junction that likely represent retained food. 4. Moderate narrowing of the GE junction that represents achalasia or a benign stricture. 5. Large type IV paraesophageal hernia, with the majority the fundus located within the thoracic cavity. This has increased since prior study in 2020. 6. 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 7. Thickened appearance of the gastric rugal folds, suggestive of gastritis. 8. Thickened appearance of the duodenal folds, suggestive of duodenitis. This procedure was performed by Zack Padgett PA-C, and supervised by Dr. Schwab Electronically signed by: Donaldo Schwab MD 11/25/2024 08:08 AM [facility] Dictated By: Zack Padgett Signed By: <Electronically signed by Zack Padgett in OV> 11/25/24 0808 <Electronically signed by Donaldo Schwab MD in OV> 11/25/24 0811 DD/ 1400 TD/TT: 11/24/24 1427 Environmental Engineering Aide: REASON FOR REFERRAL No Information MEDICATIONS Medication [...] iron deficiency anemia type (D50.9) Active confirmed 12268627 Problem Gastroesophageal reflux disease with esophagitis, unspecified whether hemorrhage (K21.00) Active confirmed 265779208 Problem Erosive esophagitis (K22.10) Active confirmed 70436317 Problem Diarrhea, unspecified type (R19.7) Active confirmed 73413533 Problem Hemorrhoids with complication (K64.8) Active confirmed 65085546 PLAN OF TREATMENT Pending Test Test Name Order Date FL barium swallow 11/24/2024 Insurance Providers Payer Name Payer Address Payer Phone Subscriber Number Group Number Insured Name Patient Relationship to Insured Coverage Start Date Coverage End Date MEDICARE OF [place] [address] [place] [address] [id number] AQUILES GALARZA Self - patient is the insured [facility] [employer] [address] [place] [address] [phone] [id number] AQUILES GALARZA Self - patient is the insured MEDICAL [...]
--- OUTSIDE RECORDS SUMMARY | 2024-11-25 11:57 | XMS_ITS ---
Author Organization [facility] Address [address] [place] [phone] Care Team Providers Care Senior Formulation Scientist Name Role Phone Salena JAEL Zaida Primary Care Provider Unavailab Jose Alejandro Jones Jr REASON FOR VISIT ov recall Encounters Encounter Location Date Provider Diagnosis [facility] [address] [place] [phone] 06/22/2023 Jose Alejandro White Jr PLAN OF TREATMENT No Information
--- OUTSIDE RECORDS SUMMARY | 2024-11-25 11:57 | XMS_ITS ---
Author Organization [facility] Address [address] [place] [phone] Care Team Providers Care Assisted Living Director Name Role Phone Salena JAEL Zaida Primary Care Provider Unavailab Jose Alejandro Jones Jr REASON FOR VISIT Patient presents today for erosive esophagitis Encounters Encounter Location Date Provider Diagnosis [facility] [address] [place] [phone] 07/15/2023 Jose Alejandro White Jr PLAN OF TREATMENT No Information
--- OUTSIDE RECORDS SUMMARY | 2024-11-25 11:57 | XMS_ITS ---
Author Organization [facility] Address [address] [place] [phone] Care Team Providers Care Epic Cupid Analyst Name Role Phone [place] JAEL Zaida Primary Care Provider UnavailJose Alejandro [...] Problem Hemorrhoids with complication (K64.8) Active confirmed [id number] VITAL SIGNS BMI 25.80 kg/m2 06/22/2023 Blood pressure systolic 000 mm Hg 06/22/20 23 Blood pressure diastolic 00 mm Hg 023 Height 71 in 06/22/2023 Temperature 97.7 degrees Fahrenheit 06/22/20 23 Weight 185 lbs 06/22/2023 Encounters Encounter Location Date Provider Diagnosis [facility] [address] [place] [phone] 06/22/2023 Jose Alejandro White Jr Gastroesophageal reflux [...] Date Notes Hydrocortisone 1 % 1 application Technical Sales Representatives ally Once a day as needed fir hemorrhoids 06/22/2023 Treatment Notes Assessment Notes Gastroesophageal reflux dise ase with esophagitis, unspecified whether hemorrhage Gastroesophageal reflux disease material was printed Next Appt Details Follow Up: 1 Year, Reason:
[2024-11-25 12:09] VITALS: BP 134/87; PULSE 110; RESP 20; TEMP 36.1; O2SAT 97; BMI 26.1
--- NOTE | 2024-11-25 12:23 | P.CONAN_ITS ---
[facility] Active Problems Active Problems: All Active Problems Pre-op evaluation (Acute) Anxiety (Acute) Major depressive disorder, recurrent, severe with psychotic features (Acute) Depression (Acute) Physical deconditioning (Acute) Preoperative cardiovascular examination (Acute) Anemia (Acute) GERD (gastroesophageal reflux disease) (Acute) Past Medical History Medical History COVID-19 vaccine administered History of electroconvulsive therapy Major depressive disorder, recurrent, severe with psychotic features Pulmonary embolism Diverticulitis of colon with perforation Hyperlipidemia HTN (hypertension) Dementia GERD (gastroesophageal reflux disease) Depression SVT (supraventricular tachycardia) Family History Family History Brother Blood clot in vein Other No history of cardiac disorder Family history of problems with anesthesia: No Surgical History Surgical History History of esophagogastroduodenoscopy (EGD) H/O colonoscopy Status post Paula's procedure History of colostomy reversal H/O hernia repair History of Problems with Anesthesia: No Social History Social History Household Members: None Housing: Assisted Living Facility Are you a primary career and technology education teacher to a significant other at home: No Do you presently have visiting nurse or other home services: No Alcohol intake: former Comment: headache better Patient Tobacco Use Status: Never used Tobacco Second Hand Smoke Exposure: No Have you been hit, kicked, punched, or otherwise hurt by someone within the past year? If so, by whom?: No Are you DNR?: No Advance Directives: No Advance Directives Information Provided: Yes Advance Directives Date on File: 06/22/23 service: Yes Current occupational status: retired Sexual orientation: Straight/Heterosexual Meds Allergies Allergy/AdvReac Type Severity Reaction Status Date / Time No Known Allergies Allergy Verified 11/14/24 10:15 [No Known Allergies*] Home Medications ?Medication ?Instructions ?Recorded ?Confirmed ?Last Taken ?Type omeprazole 40 mg capsule,delayed 40 mg PO DAILY@0630 11/14/24 11/14/24 Unknown History release polyethylene glycol 3350 17 17 g PO DAILY 11/14/24 11/14/24 Unknown History gram/dose oral powder (Miralax) sennosides 8.6 mg tablet (Senna 8.6 mg PO BEDTIME PRN Constipation 11/14/24 11/14/24 Unknown History Lax) Exam Height,Weight and Vital Signs: Height 5 ft 11 in Weight 84.822 kg Last Vital Signs Temp 96.9 F 11/25/24 12:09 Pulse 110 H 11/25/24 12:09 Resp 20 11/25/24 12:09 BP 134/87 11/25/24 12:09 Pulse Ox 97 11/25/24 12:09 O2 Del Method Room Air 11/25/24 12:09 Airway Mallampati Class: II TM Dist: >3cm Neck ROM: Full Denture: Upper and Lower Loose/Missing/Broken Teeth: Yes, Upper and Lower Heart: RRR Lungs: CTA Assessment and Plan Assessment Anesthesia Assessment: Anesthesia Plan Discussed and Chart Reviewed Final Anesthetic Review Family History of Problems with Anesthesia: No History of Problems with Anesthesia: No NPO: Yes ASA Class: III Final Preanesthetic Review: Meds/Allgs Chart Reviewed, Consent Obtained/Reviewed and Anes Risks/Benef Reviewed Patient Risk: Intermediate Procedure Risk: Intermediate Anesthetic Plan Anesthetic Plan: GA Disposition: Standard PACU
[2024-11-25] MEDS: Lactated Ringers 1,000 ML 50 ML IVCONT (12:30)
--- NOTE | 2024-11-25 13:54 | PM.OP ---
Brief Operative Note Date of Service: 11/25/24 Pre-op diagnosis: fb esophagus Post-op diagnosis: same Procedure: EGD Surgeon: Jose Alejandro White MD Anesthesia: GETA Was an Plant Security Guard used for this Procedure?: No Estimated blood loss (mL): 2 Pathology: other Condition: stable Disposition: PACU
--- NOTE | 2024-11-25 13:56 | PM.EVENT ---
Event Note Date of Service: 11/25/24 Event Note: EGD note dictated large carrot slices in esophagus, pushed into stomach mild stricture , dilated w/18 mm balloon large hiatal hernia esophagitis and gastritis antral biopsies taken. Plan: bid omeprazole restart Eliquis in am chopped diet Time Spent With Patient Time: Total time managing care of this patient today ____ minutes.
[2024-11-25 14:00] VITALS: BP 134/79; PULSE 99; RESP 18; TEMP 36.7; O2SAT 100
[2024-11-25 14:15] VITALS: BP 123/75; PULSE 94; RESP 18; O2SAT 100
[2024-11-25 14:30] VITALS: BP 137/85; PULSE 90; RESP 18; TEMP 36.6; O2SAT 97
--- NOTE | 2024-11-26 02:53 | OP_ITS ---
DATE OF SERVICE: 11/25/2024 SURGEON: Jose Alejandro White MD INDICATIONS: The patient was seen in consultation for dysphagia and upper GI series yesterday documented esophageal foreign body. PREOPERATIVE DIAGNOSIS: POSTOPERATIVE DIAGNOSIS: PROCEDURE PERFORMED: Upper endoscopy with removal of esophageal foreign body, balloon dilation of esophageal stricture, and biopsy. ESTIMATED BLOOD LOSS: COMPLICATIONS: ANESTHESIA: The patient underwent general anesthesia with endotracheal intubation. ASSISTANTS: SPECIMENS: DESCRIPTION OF PROCEDURE: The history and physical performed. The risks and benefits of the procedure were explained to the patient's guardian and informed consent was obtained. The patient was placed in a left lateral decubitus position. After endotracheal intubation, the Olympus video gastroscope was introduced into the esophagus, stomach, and duodenum. Immediately on examination of the esophagus, multiple foreign bodies were identified. Examination was performed. Therapy was performed. The scope was removed. He tolerated the procedure well and was returned to recovery in stable condition. FINDINGS: Esophagus: The esophagus showed multiple foreign bodies which appeared to be consistent with vegetable matter (carrots), which were rather large in diameter measuring approximately 2.5 cm and approximately 5-10 mm thick. These were not easily broken up with the scope and had to be pushed into the stomach. The procedure required multiple interventions including use of a snare, biopsy forceps, Rosenberg Net, and balloon dilators. The foreign bodies in the esophagus were eventually pushed into the stomach and cleared. Examination of the esophagus subsequently showed distal esophagitis, likely from irritation from the food material. There was a nonobstructive stricture at the EG junction and balloon dilation from 16 to 18 mm was performed with good results. The esophagus was entirely clear of foreign bodies at the termination of the procedure. Stomach: There was a 7 cm hiatal hernia. The food material was pushed through this into the body of the stomach. There was gastritis in the antrum. Biopsies were obtained from the antrum. Duodenum: The bulb and second portion were normal. IMPRESSION: 1. Foreign bodies, esophagus. 2. Esophageal stricture. 3. Esophagitis/gastritis. 4. Hiatal hernia. RECOMMENDATION: 1. Follow up the biopsy results. 2. Chopped diet. MD NEFTALI Blackburn/REILLY / [id number] [facility]
== END ==
LOC: HO.SSS 10:54
PROVIDERS: Visit Provider Internal Medicine Gastroenterology
PROC: 0DJ08ZZ Inspection of Upper Intestinal Tract, Via Natural or Artificial Opening Endoscopic (ICD-10-PCS; CPT 43235; principal; 2024-11-25 13:50)
DX: T18.128A Food in esophagus causing other injury, initial encounter (principal); R13.10 Dysphagia, unspecified; K22.2 Esophageal obstruction; K20.80 Other esophagitis without bleeding; K29.60 Other gastritis without bleeding; K21.9 Gastro-esophageal reflux disease without esophagitis; K44.9 Diaphragmatic hernia without obstruction or gangrene; W44.F3XA Food entering into or through a natural orifice, initial encounter; Y93.89 Activity, other specified; Y92.9 Unspecified place or not applicable; Y99.9 Unspecified external cause status; D64.9 Anemia, unspecified; E78.00 Pure hypercholesterolemia, unspecified; I26.99 Other pulmonary embolism without acute cor pulmonale; F03.90 Unspecified dementia, unspecified severity, without behavioral disturbance, psychotic disturbance, mood disturbance, and anxiety; F32.A Depression, unspecified; F41.9 Anxiety disorder, unspecified; Z79.01 Long term (current) use of anticoagulants; Z79.899 Other long term (current) drug therapy; Z98.890 Other specified postprocedural states
CPT/HCPCS: 43249; 43251; 43239; 88305; 88313; 88342; C1726; J0330; J2003; J2371; J2405; J2704; J3010

== ENCOUNTER 2024-11-28 06:39 | Outpatient (BNV) | payer MEDICARE, OTHER, SELFPAY | END 2024-12-09 09:52 | PROVIDERS: Admitting Provider Internal Medicine; PCP Registered Nurse; Visit Provider Radiology Diagnostic Radiology | DX: R05.9 Cough, unspecified (principal) | CPT/HCPCS: 49406; 71045 ==

== ENCOUNTER 2024-11-28 06:39 | Outpatient (BNV) | payer MEDICARE, OTHER, SELFPAY | END 2024-12-08 08:00 | PROVIDERS: Admitting Provider Internal Medicine; PCP Registered Nurse; Visit Provider Radiology Diagnostic Radiology | DX: R19.8 Other specified symptoms and signs involving the digestive system and abdomen (principal); T17.320A Food in larynx causing asphyxiation, initial encounter | CPT/HCPCS: 74230 ==

== ENCOUNTER 2024-11-28 06:39 | Outpatient (BNV) | payer MEDICARE, OTHER, SELFPAY | END 2024-11-28 07:30 | PROVIDERS: Admitting Provider Internal Medicine; Visit Provider Specialist | DX: I48.92 Unspecified atrial flutter (principal); I48.91 Unspecified atrial fibrillation | CPT/HCPCS: 71250 ==

== ENCOUNTER 2024-11-28 06:39 | Outpatient (BNV) | payer MEDICARE, OTHER, SELFPAY | END 2024-12-15 14:46 | PROVIDERS: Admitting Provider Internal Medicine; PCP Registered Nurse; Visit Provider Radiology Diagnostic Radiology | DX: J18.9 Pneumonia, unspecified organism (principal); R09.02 Hypoxemia | CPT/HCPCS: 71045 ==

== ENCOUNTER 2024-11-28 06:39 | Outpatient (BNV) | payer MEDICARE, OTHER, SELFPAY | END 2024-11-29 07:00 | PROVIDERS: Admitting Provider Internal Medicine; Visit Provider Internal Medicine | DX: I35.8 Other nonrheumatic aortic valve disorders (principal); I35.1 Nonrheumatic aortic (valve) insufficiency; I34.81 Nonrheumatic mitral (valve) annulus calcification; I71.21 Aneurysm of the ascending aorta, without rupture | CPT/HCPCS: 93306 ==

== ENCOUNTER 2024-11-28 06:39 | Outpatient (BNV) | payer MEDICARE, OTHER, SELFPAY | END 2024-12-06 11:43 | PROVIDERS: Admitting Provider Internal Medicine; PCP Registered Nurse; Visit Provider Radiology Diagnostic Radiology | DX: K44.9 Diaphragmatic hernia without obstruction or gangrene (principal) | CPT/HCPCS: 74176 ==

== ENCOUNTER 2024-11-28 06:39 | Outpatient (BNV) | payer MEDICARE, OTHER, SELFPAY | END 2024-12-01 08:10 | PROVIDERS: Admitting Provider Internal Medicine; PCP Registered Nurse; Visit Provider Radiology Diagnostic Radiology | DX: R09.02 Hypoxemia (principal); J98.11 Atelectasis | CPT/HCPCS: 71045 ==

== ENCOUNTER 2024-11-28 06:39 | Inpatient (IN) | payer MEDICARE, OTHER, SELFPAY ==
[2024-11-28] VITALS (14 sets, daily range): BP systolic 95–125; BP diastolic 52–76; PULSE 107–148; RESP 16–20; TEMP 36.3–36.9; O2SAT 89–94; BMI 27.5
--- NOTE | 2024-11-28 | ECG_ITS ---
Test Reason : SVT Blood Pressure : */* mmHG Vent. Rate : 141 BPM Atrial Rate : 141 BPM P-R Int : 152 ms QRS Dur : 102 ms QT Int : 292 ms P-R-T Axes : * -43 17 degrees QTcB Int : 447 ms Atrial flutter with rapid response Left axis deviation Abnormal ECG When compared with ECG of 28-Nov-2024 06:56, No significant changes seen Referred By: Bindu Monroe Electronically Signed By: ZORA TILLMAN
--- NOTE | ~2024-11-28 | CT_ITS ---
CLINICAL HISTORY: PNA CT chest without contrast Comparison: CR/SR - XR CHEST 1V - 11/28/24 07:25 EST Findings: No cardiomegaly. Moderate atherosclerotic disease of the coronary arteries. No significant pericardial effusion. No adenopathy within the mediastinum. Moderately large hiatal hernia. There is elevation of the right hemidiaphragm with subjacent compressive atelectasis. Left lower lobe subsegmental atelectasis also noted. No effusion. No pneumothorax. The visualized upper abdomen demonstrates an abnormally dilated gallbladder with prominent surrounding stranding. No acute osseous finding. Impression: Findings are most consistent with acute cholecystitis. Clinical correlation. Bibasilar subsegmental atelectasis. Moderately large hiatal hernia. This document has been electronically signed by: Elfego Asif MD on 11/28/2024 18:54:24
--- NOTE | ~2024-11-28 | XR_ITS ---
EXAMINATION: XR CHEST 1 VIEW HISTORY: hypoxia COMPARISON: Comparison is made with the prior examination dated 12/10/2024. FINDINGS: A single AP portable view of the chest performed at 2:49 PM is submitted. There are low lung volumes. There are patchy airspace opacities at both lung bases, greater on the left, compatible with pneumonia. There is no pleural effusion, pneumothorax, or pulmonary vascular congestion. The heart is normal in size. The bones are intact. There is oral contrast material in the splenic flexure of the colon. XR/XR chest 1V IMPRESSION: Low lung volumes. Bibasilar airspace opacities compatible with pneumonia, left greater than right. Electronically signed by: Iftikhar Esteves MD 12/15/2024 03:03 PM EDT
--- NOTE | ~2024-11-28 | FL_ITS ---
EXAMINATION: XR BARIUM SWALLOW CLINICAL INFORMATION: For barium aspiration. COMPARISON: None available. TECHNIQUE: Routine modified barium swallow was performed in lateral fluoroscopy in presence of speech therapist. FINDINGS: 1 no oral administration of thin barium and honey consistency barium there is normal perfusion bolus from the oral cavity through the pharynx and esophagus without laryngeal penetration or aspiration. There is laryngeal penetration seen with nectar consistency barium. FLUOROSCOPY TIME: 2.04 minutes DOSE AREA PRODUCT: 1979 uGy-m2 (microgray-meter squared) FL/FL Modified Barium Swallow IMPRESSION: Laryngeal aspiration with thin barium and honey consistency barium. Laryngeal penetration seen with nectar consistency barium. Correlate results with speech therapy report. Electronically signed by: Miko Abel MD 12/08/2024 09:20 AM DOUG
--- NOTE | ~2024-11-28 | CT_ITS ---
CLINICAL HISTORY: hiatal hernia, plan for jtube CT abdomen and pelvis without contrast Comparison: CT/REG/SR - ABD PELV W IV CON ONLY [id number] - 04/08/19 09:00 EDT Findings: Partial collapse of both lower lobes, with an appearance of chronic rounded atelectasis, Unchanged from prior. There are bilateral pleural calcified plaques in the lung bases. There is a moderate-sized hiatal hernia. Heart size is normal. Coronary artery calcifications are present. The spleen, adrenal glands, pancreas are unremarkable. In the gallbladder fossa there is a dilated gallbladder and immediately anterior there is a oval fluid collection similar in size to the gallbladder. This fluid collection is low in attenuation and measures 3.7 x 7.8 x 4.3 cm. Internal Hounsfield units measure 6. Within the anterior left lobe of the liver there is a small subcentimeter low-attenuation lesion, too small to fully characterize. The kidneys are normal in size and there is no hydronephrosis. There is a right-sided 2.5 cm renal cysts, unchanged from prior. There is high density contrast material within the rectum and the cecum. There is a left inguinal hernia containing loop of large bowel and fat. Small bowel loops are normal caliber. In the region of the hepatic flexure there is long segment prominence of the colonic wall, which could be underdistention versus bowel wall thickening. Fat containing umbilical hernia. Pelvic contents unremarkable. No ascites. Mild levoscoliosis of the lumbar spine. IMPRESSION: 1. Oval fluid collection just anterior to the gallbladder measuring 3.7 x 7.8 x 4.3 cm. Differential includes abscess, seroma, cystic mass. This lesion is new in comparison to 2019. 2. Prominence of the hepatic flexure colonic wall, which could be underdistention versus bowel wall thickening from colitis. 3. Moderate-sized hiatal hernia. This document has been electronically signed by: Chuck Valdivia MD on 12/07/2024 21:11:12
--- NOTE | ~2024-11-28 | XR_ITS ---
EXAMINATION: XR CHEST CLINICAL INFORMATION: Cough, F U asspiration COMPARISON: December 01, 2024. TECHNIQUE: Frontal view of the chest was obtained. FINDINGS: Poor inspiration. Linear opacity left lower hemithorax. Prominence of the interstitial markings extending from the left pulmonary hilum to the periphery. No pneumothorax. Heart silhouette size is unchanged with the prominent aortic arch. There is contrast within the large intestine from prior imaging exam. Mild multilevel thoracolumbar spondylosis and S-shaped curvature. XR/XR chest 1V IMPRESSION: Improved aeration left lung. Consider acute airspace disease, left lower lung lobe. CT chest dated November 28, 2024 demonstrated airspace disease in the lung bases. Electronically signed by: Ramon Hernández MD 12/09/2024 10:19 AM [facility]
--- NOTE | ~2024-11-28 | CT_ITS ---
CLINICAL HISTORY: evaluate gallbladder and adjacent fluid collection CT abdomen and pelvis with contrast Comparison: CT/SR - CT ABDOMEN PELVIS WO IV CON - 12/07/24 11:43 EST NM/SR - NM HEPATOBILIARY WO PHARM - 11/29/24 14:21 EST US/PA/SR - US ABDOMEN LIMITED - 11/29/24 07:19 EST Findings: There is atelectasis of the bilateral lung base. Large hiatal hernia. The liver is normal in size without suspicious focal hepatic lesions. Hypodense lesion in the left lobe of the liver is likely to be a cyst. No intrahepatic or extrahepatic ductal dilatation is seen. The hepatic and portal veins are patent. Unchanged appearance of 3.2 x 7.5 cm fluid collection anterior to the gallbladder. No calcified gallstone is visualized in the gallbladder. There is mild fat stranding of the gallbladder fossa. Pancreas, spleen and adrenals are normal in appearance. No suspicious focal lesion of the kidneys. Right renal cyst. No hydronephrosis or calculi. The abdominal aorta demonstrates no evidence of aneurysmal dilatation or dissection. Atherosclerosis calcification of the aorta. Evaluation of the bowel is limited by the severe beam hardening artifact from the barium in the bowel. There is bowel wall thickening of the sigmoid colon. No evidence of bowel obstruction. The pelvic organs are within normal limits. No intraperitoneal free air or fluid is visualized. No pathologic lymphadenopathy is seen. Small fat containing left inguinal hernia. Scoliosis and degenerative changes of the spine. IMPRESSION: Unchanged fluid collection anterior to the gallbladder. Perforation of the gallbladder can not be excluded. Nuclear medicine bile leak examination may be of benefit. No calcified gallbladder is visualized in the gallbladder. There is fat stranding of the gallbladder fossa. Acute cholecystitis can not be excluded. There is bowel wall thickening of the sigmoid colon. Colitis can not be excluded. Additional findings as above. This document has been electronically signed by: Jace Padilla MD on 12/08/2024 19:22:44
--- NOTE | ~2024-11-28 | NM_ITS ---
EXAMINATION: NM HEPATOBILIARY WITHOUT PHARM HISTORY: suspected acute cholecystitis COMPARISON: Correlation is made with an abdominal ultrasound dated 11/29/[address] dated 11/28/2024. TECHNIQUE: An hepatobiliary scan was performed following intravenous administration of 5 mCi technetium 99m-mebrofenin. Images were obtained to 90 minutes. FINDINGS: There is normal uptake and excretion of the radiopharmaceutical by the liver. Common bile duct activity is seen at 16 minutes. Small bowel activity is also seen at 60 minutes. No gallbladder activity is identified throughout the course of the study. The final images demonstrate minimal activity within the liver. NM/NM hepatobiliary wo pharm IMPRESSION: No gallbladder activity is seen. Findings are compatible with cystic duct obstruction and acute cholecystitis. Electronically signed by: Iftikhar Esteves MD 11/29/2024 04:02 PM [facility]
--- NOTE | ~2024-11-28 | CT_ITS ---
PROCEDURE: CT-GUIDED DRAINAGE, PERITONEAL ABSCESS CLINICAL INFORMATION: Biliary drain placement. Fluid collection. COMPARISON: None available. TECHNIQUE: Following explaining procedure, benefits in risk of CT fluoroscopy-guided placement of a right drainage catheter in loculated fluid collection anterior to the gallbladder, a written consent was obtained. Conscious sedation consent was obtained as well. Patient was placed supine on fluoroscopy table. Preliminary CT imaging was performed and axial CT was performed through the upper abdomen. Markers were placed along the right upper abdomen laterally and repeat imaging performed. An optimal marker was selected and marked on the skin site. The area of marker was cleaned and draped in usual sterile manner. 1% lidocaine was inserted at puncture site. Through a small is skin incision a Chiba needle was inserted from the skin into the collection. After observing biliary-like drainage, a small guidewire was inserted into the collection and needle withdrawn. A 8 Arabic dilator was placed and smaller guidewires and replaced by 0.035 inch guidewire. A 8 Arabic APD catheter with stiffener was advanced over the guidewire . The stiffener was loosened and catheter advanced over the guidewire. The guidewire and stiffener were removed after advancing 01/06/[address] imaging was obtained to confirm catheter tip in the collection. After confirmation on CT, a pigtail was formed. The pigtail was anchored to the skin 3-0 nonabsorbable sutures. The catheter was connected to suction bulb the connecting cannula. A bilious drainage was noted. Post procedure sterile dressing was applied at the incision site. Patient targeted procedure extremely well. IV Versed and fentanyl was administered during the exam for conscious sedation. . Patient was monitored by the radiology centimeters for 416 minutes during the conscious sedation This CT examination was performed using dose optimization techniques as appropriate, variously including the following: *Automated exposure control *Adjustment of mA and/or kV according to patient size (this includes techniques or standardized protocols for targeted exams where dose is matched to indication/reason for exam; i.e. extremities or head) *Use of iterative reconstruction technique [facility] 8[address] FINDINGS/ CT/CT drain peritoneum IMPRESSION: There is CT imaging there is a equal or less than collection anterior to the gallbladder as was noted on the previous CT abdomen exam 12/08/2024. Successful insertion of 8 Arabic APD catheter into right upper quadrant collection anterior gallbladder. Fluid collected was sent for culture, sensitivity and Gram stain Electronically signed by: Miko Abel MD 12/12/2024 08:44 AM EDT RP
--- NOTE | ~2024-11-28 | XR_ITS ---
EXAMINATION: XR CHEST 1 VIEW HISTORY: hypoxia COMPARISON: Comparison is made with the prior examination dated 11/29/2024. FINDINGS: A single AP portable view of the chest performed at 8:04 AM is submitted. There are low lung volumes. Again seen is subsegmental atelectasis at both lung bases. There is no pleural effusion, pneumothorax, or pulmonary vascular congestion. The heart is normal in size. Again seen is a large hiatal hernia.. There is oral contrast in the colon. There is degenerative disc disease of the spine. XR/XR chest 1V IMPRESSION: Low lung volumes. Large hiatal hernia. Bibasilar subsegmental atelectasis. Electronically signed by: Iftikhar Esteves MD 12/01/2024 08:32 AM [facility]
--- NOTE | ~2024-11-28 | XR_ITS ---
CLINICAL HISTORY: dyspnea 1 view chest x-ray Comparison: CT/SR - CT CHEST WO IV CON - 11/28/24 18:14 EST CR/SR - XR CHEST 1V - 11/28/24 07:25 EST Findings: Lungs are hypoinflated. Cardiac silhouette is at the upper limits of normal for size for degree of inflation. Continued streaky density within the lung bases bilaterally. There is blunting of the costophrenic angles bilaterally, [id number]. Large hiatal hernia seen on the patient's chest CT from 1 day prior is again identified. Hyperdense contrast is again seen within the colon. IMPRESSION: Unchanged appearance of the chest with continued hypoinflation, bibasilar consolidation, and potential small bilateral pleural effusions. This document has been electronically signed by: Robbi Escobedo MD on 11/29/2024 06:33:57
--- NOTE | ~2024-11-28 | XR_ITS ---
CLINICAL HISTORY: afib 1 view chest x-ray Comparison: 10/10/2020 Findings: Portions of the exam are obscured by overlying material. There is left lower lobe consolidation, possible pneumonia or subsegmental atelectasis Normal size heart. No acute fracture. IMPRESSION: 1. Left lower lobe consolidation, differential considerations noted. This document has been electronically signed by: Myron Vaughn MD on 11/28/2024 08:09:33
--- NOTE | ~2024-11-28 | US_ITS ---
EXAMINATION: US ABDOMEN LIMITED HISTORY: ?cholecystitis, ABNORMAL CT TECHNIQUE: Real-time grayscale ultrasound imaging of the right upper quadrant was performed and images were reviewed. COMPARISON: There are no prior studies for comparison. FINDINGS: The examination is limited due to patient body habitus and inability of the patient to cooperate. Liver: The liver demonstrates increased echotexture, consistent with steatosis. There is a 1.4 cm cyst in the left lobe. No intrahepatic biliary ductal dilatation is identified. Gallbladder and biliary tree: There is limited visualization of the gallbladder which may contain sludge. No definite calculi are seen. There may be bladder wall thickening. There is no sonographic Hernandez sign. The common bile duct is not visualized. Right Kidney: The right kidney not visualized. Pancreas: The pancreas is not visualized. US/US abdomen limited IMPRESSION: Markedly limited examination as described. Hepatic steatosis. Possible sludge in the gallbladder. If there is clinical concern for acute cholecystitis, HIDA scan is recommended. Electronically signed by: Iftikhar Esteves MD 11/29/2024 08:07 AM [facility]
--- NOTE | ~2024-11-28 | XR_ITS ---
CLINICAL HISTORY: Cough 1 view chest x-ray Comparison: 12/09/2024 Findings: Hypoinflated lungs. Progressive left mid/lower lung infiltrate/atelectasis. Mild blunting of the left lateral costophrenic recess also seen on the prior exam. Normal size heart. No acute fracture. Tube projecting over the right upper quadrant. Apparent contrast in the visualized colon. IMPRESSION: Hypoinflated lungs. Progressive left mid/lower lung infiltrate/atelectasis. This document has been electronically signed by: Valentine Negron MD on 12/10/2024 11:16:27
--- OUTSIDE RECORDS SUMMARY | 2024-11-28 06:53 | XMS_ITS ---
Author Organization [facility] Address [address] [place] [id number] Care Team Providers Care Product Specialist Name Role Phone [place] JAEL Zaida Primary Care Provider UnavailJose Alejandro Mondragon Jr Unavailable [phone] ALLERGIES No Known Allergies REASON FOR [...] Problem Hemorrhoids with complication (K64.8) Active confirmed 27850397 VITAL SIGNS Temperature 97.7 degrees Fahrenheit 06/22/20 23 Blood pressure systolic 000 mm Hg 06/22/20 23 Blood pressure diastolic 00 mm Hg 023 Height 71 in 06/22/2023 Weight 185 lbs 06/22/2023 BMI 25.80 kg/m2 06/22/2023 Encounters Encounter Location Date Provider Diagnosis [facility] [address] [place] [address] 06/22/2023 Jose Alejandro White Jr Gastroesophageal reflux [...] Date Notes Hydrocortisone 1 % 1 application Program Management Professional ally Once a day as needed fir hemorrhoids 06/22/2023 Treatment Notes Assessment Notes Gastroesophageal reflux dise ase with esophagitis, unspecified whether hemorrhage Gastroesophageal reflux disease material was printed Next Appt Details Follow Up: 1 Year, Reason:
--- OUTSIDE RECORDS SUMMARY | 2024-11-28 06:54 | XMS_ITS ---
Author Organization [facility] Address [address] [place] [phone] Care Team Providers Care Apple Picking Supervisor Name Role Phone [place] JAEL Zaida Primary Care Provider Unavailab Jose Alejandro Jones Jr [phone] REASON FOR VISIT Patient presents today for erosive esophagitis Encounters Encounter Location Date Provider Diagnosis [facility] [address] [place] [id number] 07/15/2023 Jose Alejandro White Jr PLAN OF TREATMENT No Information
--- OUTSIDE RECORDS SUMMARY | 2024-11-28 06:54 | XMS_ITS ---
Author Organization [facility] Address [address] [place] [phone] Care Team Providers Care Senior Oracle Database Developer Name Role Phone Salena JAEL Zaida Primary Care Provider Unavailab Jose Alejandro Jones Jr [phone] REASON FOR VISIT ov recall Encounters Encounter Location Date Provider Diagnosis [facility] [address] [place] [id number] 06/22/2023 Jose Alejandro White Jr PLAN OF TREATMENT No Information
--- OUTSIDE RECORDS SUMMARY | 2024-11-28 06:54 | XMS_ITS | Patient Health Record ---
Author Organization [facility] Address [address] [place] [phone] Care Team Providers Care Surveyor Geophysical Prospecting Name Role Phone Salena JAEL Zaida Primary Care Provider Unavailab Jose Alejandro Jones Jr Unavailable ALLERGIES No Known Allergies RESULTS Component Value Reference Range Notes [place] barium swallow Reviewed date:11/25/2024 03:30:15 PM Interpretation: Performing Lab: Notes/Report: [address] [address] Fluoroscopy Report Signed Patient: Aquiles Galarza MR#: [id number] 47 : 1945 Acct:[id number] Age/Sex: 79 / M ADM Date: 11/14/24 Loc: [id number] [id number]: Kalyani Gan CONVEYOR ATTENDANT Ordering Physician: Jose Alejandro White MD Date of Service: 11/24/24 Procedure(s): [place] barium swallow Accession Number(s): [id number] cc: Jose Alejandro White MD; Physician,Unknown EXAMINATION: [...] by: Donaldo Schwab MD 11/25/2024 08:08 AM [facility] Dictated By: Zack Padgett Signed By: <Electronically signed by Zack Padgett in OV> 11/25/24 0808 <Electronically signed by Donaldo Schwab MD in OV> 11/25/24 0811 DD/ 1400 TD/TT: 11/24/24 1427 Life Skills Specialist: REASON FOR REFERRAL No Information MEDICATIONS Medication [...] W/U Status Risk SNOMED Code Notes Problem Erosive esophagitis (K22.10) Active confirmed 11663130 Problem Iron deficiency anemia, unspecified iron deficiency anemia type (D50.9) Active confirmed 45747165 Problem Diarrhea, unspecified type (R19.7) Active confirmed 41554794 Problem Gastroesophageal reflux disease with esophagitis, unspecified whether hemorrhage (K21.00) Active confirmed 593754590 Problem Hemorrhoids with complication (K64.8) Active confirmed [id number] PLAN OF TREATMENT No Information Insurance Providers Payer Name Payer Address Payer Phone Subscriber Number Group Number Insured Name Patient Relationship to Insured Coverage Start Date Coverage End Date MEDICARE OF [place] [address] [place] [address] [id number] AQUILES GALARZA Self - patient is the insured [facility] [employer] [address] [place] [address] [id number] AQUILES GALARZA Self - patient is [...]
[2024-11-28] MEDS: Metoprolol Tartrate 5 MG/5 ML VIAL IVPUSH ×2 (06:55→07:03)
[2024-11-28] MEDS: 0.9 % Sodium Chloride 1,000 ML 999 ML IV ×2 (07:08→08:38)
[2024-11-28 07:21] LABS: MANUAL DIFF FLAG NO
[2024-11-28] MEDS: dilTIAZem HCL 125 MG in 0.9 % Sodium Chloride 100 ML IVCONT (07:23)
[2024-11-28 07:29] LABS: Basophils Percent Auto 0.2 % (0-2); Eosinophils Percent Auto 0.1 % (0-4); Hematocrit 37.3 % (42.0-52.0); Hemoglobin 12.7 g/dl (14.0-18.0); Imm Gran Pct Auto 0.7 % (0.0-0.4); Lymphocytes Absolute Auto 0.3 X10*3/uL (1.2-4.9); Lymphocytes Percent Auto 2.3 % (20-40); Mean Platelet Volume 9.3 fL (9.4-12.4); Monocytes Absolute Auto 1.2 X10*3/uL (0.1-1.2); Monocytes Percent Auto 8.3 % (2-11); Neutrophils Absolute Auto 13.2 x10*3/uL (2.0-8.3); Neutrophils Percent Auto 88.4 % (45-73); Platelet Count 205 X10*3/uL (160-400); Red Blood Count 3.73 X10*6/uL (4.60-5.80); Red Cell Distribution Width 13.9 % (11.0-16.0); White Blood Count 14.9 X10*3/uL (4.8-10.8)
[2024-11-28 07:43] LABS: B Type Natriuretic Peptide 64 pg/mL (<100)
[2024-11-28 07:44] LABS: Alanine Aminotransferase 52 U/L (0-40); Albumin Level 3.4 g/dL (3.5-5.0); Alkaline Phosphatase 131 U/L (39-117); Anion Gap 18 (12-20); Aspartate Amino Transferase 78 U/L (5-37); Bilirubin Total 1.4 mg/dL (0.0-1.0); Blood Urea Nitrogen 51 mg/dL (9-16); Calcium 9.3 mg/dL (8.4-10.2); Carbon Dioxide 19 mmol/L (22-29); Chloride 107 mmol/L (96-108); Estimated Glomerular Filt Rate 41; Glucose Random 182 mg/dL (60-115); Potassium 3.9 mmol/L (3.3-5.1); Sodium 140 mmol/L (135-145); Total Protein 6.6 g/dL (6.5-8.0)
[2024-11-28 07:44] LABS: Troponin-I High Sensitivity 18.4 ng/L (<3.5-35.0)
[2024-11-28] MEDS: Digoxin 0.5 MG/2 ML AMPUL 0.125 MG IVPUSH ×3 (07:47→20:16)
--- NOTE | 2024-11-28 07:49 | P.HPHOSP_ITS ---
History of Present Illness Date of Service: 11/28/24 Chief Complaint: AFIB with RVR The pt is an 79-year-old male with PMH significant for prostate cancer, pulmonary embolism in 2020 on Eliquis , vertigo, GERD, HLD, and MDD with psychotic features who was admitted to [facility] for increased anxiety and panic attacks and has been getting ECTs. During routine vitals before ECT he was noted to have tachcyardia with HR with of 150, ECG confirmed Aflutter, there is no prior history, although there is history of SVT. He was hemodynamically stable, a rapid was called and patient was brought to the med floor and given IV established and given IV metoprolol 10, digoxin 0.25 and ultimately started on IV cardizem drip, cardiology consultation requested. He has been hemodynamically stable with SBP never dropped below 95. He reported not feeling good but not unsual for him. No chest pain, no dizziness, or shortness of breath and was conversant the whole time. He has been on puree diet and oral intake has been limitted Review of Systems 2 Review of Systems: Gen: no fever Resp: no sob, no cough CV: no chest, no RIVAS, no leg edema GI: No n/v, no abd pain Neuro: No confusion [facility] Medical History Abnormal biliary HIDA scan COVID-19 vaccine administered History of electroconvulsive therapy Major depressive disorder, recurrent, severe with psychotic features Pulmonary embolism Diverticulitis of colon with perforation Hyperlipidemia HTN (hypertension) Dementia GERD (gastroesophageal reflux disease) Depression SVT (supraventricular tachycardia) Family History Brother Blood clot in vein Other No history of cardiac disorder Surgical History History of esophagogastroduodenoscopy (EGD) H/O colonoscopy Status post Paula's procedure History of colostomy reversal H/O hernia repair Social History Household Members: None Housing: Assisted Living Facility Are you a primary care attendant to a significant other at home: No Do you presently have visiting nurse or other home services: No Alcohol intake: former Comment: COUNTS CORRECT Patient Tobacco Use Status: Never used Tobacco Second Hand Smoke Exposure: No Advance Directives Date on File: 06/22/23 service: No Current occupational status: retired Sexual orientation: Straight/Heterosexual Meds Allergies Allergy/AdvReac Type Severity Reaction Status Date / Time No Known Allergies Allergy Verified 12/16/24 14:20 [No Known Allergies*] Active Medications: Current Medications Acetaminophen (Acetaminophen 325 Mg Tablet) 650 mg PO Q6H PRN PRN Reason: Pain, Mild 1-3,fever,headache Calcium Carbonate (Calcium Carbonate 750 Mg Tab.Chew) 750 mg PO Q4H PRN PRN Reason: Heartburn Diltiazem HCl 125 mg/ Sodium (Chloride) 125 mls @ 0 mls/hr IVCONT .Q0M [facility]; Protocol Last Admin: 11/28/24 07:23 Dose: 5 mg/hr, 5 mls/hr Sodium Chloride (Ns) 1,000 mls @ 999 mls/hr IV .Q1H1M [facility] Stop: 11/28/24 08:45 Last Admin: 11/28/24 07:08 Dose: 999 mls/hr Sodium Chloride (Ns) 1,000 mls @ 999 mls/hr IV .Q1H1M [facility] Stop: 11/28/24 08:45 Magnesium Hydroxide (Milk Of Magnesia 30 Ml Oral.Susp) 30 ml PO DAILY PRN PRN Reason: Constipation Melatonin (Melatonin 3 Mg Tablet) 6 mg PO BEDTIME PRN PRN Reason: Insomnia Sodium Chloride (0.9 % Sodium Chloride Flush 3 Ml Syringe) 3 ml [facility] Home Medications ?Medication ?Instructions ?Recorded ?Confirmed ?Last Taken ?Type omeprazole 40 mg capsule,delayed 40 mg PO DAILY@0630 11/14/24 11/28/24 11/27/24 History release polyethylene glycol 3350 17 17 g PO DAILY 11/14/24 11/28/24 11/27/24 History gram/dose oral powder (Miralax) sennosides 8.6 mg tablet (Senna 8.6 mg PO BEDTIME PRN Constipation 11/14/24 11/28/24 Unknown History Lax) nortriptyline 25 mg capsule 100 mg PO BEDTIME 11/28/24 11/28/24 11/27/24 History olanzapine 5 mg tablet 5 mg PO BID PRN Anxiety 11/28/24 11/28/24 11/27/24 History trazodone 50 mg tablet 50 mg PO BEDTIME PRN Sleep 11/28/24 11/28/24 11/25/24 History Physical Exam 2 Vital Signs and Narrative: Vital Signs: Last Vital Signs Pulse 140 H 11/28/24 07:35 Resp 18 11/28/24 07:35 BP 100/62 11/28/24 07:35 Pulse Ox 92 11/28/24 07:35 O2 Del Method Nasal Cannula 11/28/24 07:35 O2 Flow Rate 2 11/28/24 07:35 Const: Other: General: AO X 2, no acute distress HEENT: anicteri, Resp: CTA bilateral CVS: S1,S2, sounds regular GI: +BS, NT, no distention Skin: No rash Neuro: motor grossly intact Psych: flat affect Results Labs 12/17/24 05:32 12/17/24 05:32 Labs: Laboratory Results - last 24 hr 11/28/24 11/28/24 07:17 07:19 MCV 100.0 H MCH 34.0 H MCHC 34.0 RDW 13.9 Plt Count 205 D MPV 9.3 L Immature Gran % (Auto) 0.7 H Neut % (Auto) 88.4 H Lymph % (Auto) 2.3 L [place] % (Auto) 8.3 Eos % (Auto) 0.1 Baso % (Auto) 0.2 Lymph # (Auto) 0.3 L [place] # (Auto) 1.2 Eos # (Auto) 0.0 Baso # (Auto) 0.0 Abs Immat Gran (auto) 0.10 H Absolute Neuts (auto) 13.2 H Absolute Nucleated RBC 0.000 Nucleated RBC % (auto) 0.0 Anion Gap 18 Estim Creat Clear Calc TNP Estimated GFR 41 Random Glucose 182 H Calcium 9.3 Total Bilirubin 1.4 H AST 78 H ALT 52 H Alkaline Phosphatase 131 H B-Natriuretic Peptide 64 Total Protein 6.6 Albumin 3.4 L Hold Yellow Top See Note Assessment and Plan (1) Depression: Qualifiers: Depression Type: other depression Qualified Code(s): F32.89 - Other specified depressive episodes Status: Acute (2) Anxiety: Status: Acute (3) Atrial flutter by electrocardiogram: Status: Acute Plan The pt is an 79-year-old male with PMH significant for prostate cancer, pulmonary embolism in 2020 on Eliquis , vertigo, GERD, HLD, and MDD with psychotic features who was admitted to [facility] for increased anxiety and panic attacks and has been getting ECTs on Psych floor and went into AFlutter with rapid response and transfer to Med/Tele, Labs show ANDREA/dehydration New Aflutter with RVR given IV metoprolol 10, dig 0.25 mg and started on IV cardizem drip. Cardiology consultation requested alrready on eliquis for dvt echocariogram today ANDREA/dehydration LR, nephro if worsening Mild metabolic acidosis likely from starvation ketosis and renal failure LR and repeat check A1 Huyperglycemia Check A1C Mild elevated LFTs likly relaed to dydration hold Lipitor, repeat labs tomorrow Leukocytosis, possible reactive, tachy d/t aflutter, no fever.. less likely sepsis check UA and CXR Suppressed TSH of 0.13, was 1.46 on 11/14, probaly from acute illness check FT4 GERD PPI DVT oprophylaxis--eliquis, full code Depression/mood disorder--resume meds, Psych consult No ECT while acute ill and clearance should be deffered to cardiology Quality Stroke Does the patient have a stroke diagnosis?: No VTE Prior VTE?: Yes VTE Risk Level:: Medical - moderate - high VTE Device Contraindication: Treatment Not Indicated VTE Drug Contraindication: N/A - Med Ordered
[2024-11-28 07:58] LABS: TSH reflex Free T4 0.13 uIU/mL (0.32-4.0)
--- NOTE | 2024-11-28 08:21 | PHA.MEDREC ---
Pharmacy Consult ? Medication Reconciliation Pharmacy has completed the medication reconciliation. Patient was transferred from [facility] ([id number]) to [facility] Used med list from [facility] to complete med rd rec.
--- NOTE | 2024-11-28 08:42 | PC.NURSE ---
Diltiazeem increased to 10mg per Dr. Carrera.
[2024-11-28 08:44] LABS: Magnesium 1.9 mg/dL (1.6-2.6)
--- NOTE | 2024-11-28 08:53 | P.CONCA_ITS ---
History of Present Illness History of Present Illness Date of Service: 11/28/24 Chief complaint: ?SVT Narrative: This is a cardiology consultation regarding atrial flutter with rapid rate. Patient has been transferred from psychiatry. Per admission documentation, many comorbidities including prostate cancer, pulmonary embolism on Eliquis, major depression with psychotic features, admitted to Psychiatry for increased anxiety and panic attacks. Has been getting ECTs. During routine vital check before ECT, thought to have tachycardia and then EKG was performed and that showed atrial flutter. Apparently, there is history of SVT. He was hemodynamically stable. Rapid response was called. Transferred to medical floor. Given IV beta-blockers and digoxin. Then put on Cardizem drip. Patient himself is not having any overt cardiac symptoms. Denies any previous myocardial infarction or any other major cardiac issues. Review of Systems 2 Review of Systems: Yes all other systems are reviewed and are negative Constitutional: Constitutional: Reports as per HPI and Reports no additional constitutional complaints Eyes: Eyes: Reports as per HPI and Denies no additional eye complaints ENT: Denies system reviewed and no additional complaints, except as documented and Reports as per HPI Cardiovascular: Cardiovascular: Reports as per HPI, Reports no additional cardiovascular complaints, Denies acrocyanosis, Denies cool extremities, Denies chest pain, Denies leg edema, Denies lightheadedness, Denies palpitations and Denies dyspnea Respiratory: Respiratory: Reports as per HPI, Denies no additional respiratory complaints and Denies dyspnea Gastrointestinal: Gastrointestinal: Reports as per HPI and Denies no additional gastrointestinal complaints Genitourinary: Genitourinary: Reports no additional male genitourinary complaints and Reports as per HPI Musculoskeletal: Musculoskeletal: Reports no additional musculoskeletal complaints and Reports as per HPI Integumentary/Breasts: Skin/Breast: Reports system reviewed and no additional complaints, except as docu Neurologic: Reports system reviewed and no additional complaints, except as documented and Reports as per HPI Psychiatric: Psychiatric: Reports no additional psychiatric complaints and Reports as per HPI Endocrine: Endocrine: Reports no additional endocrine complaints, Reports as per HPI and Denies palpitations Hematologic/Lymphatic: Hematologic/Lymphatic: Reports no additional hematologic/lymphatic complaints and Reports as per HPI Allergic/Immunologic: Allergic/Immunologic: Reports no additional allergic/immunologic complaints and Reports as per HPI PMFSH Past Medical History Medical History COVID-19 vaccine administered History of electroconvulsive therapy Major depressive disorder, recurrent, severe with psychotic features Pulmonary embolism Diverticulitis of colon with perforation Hyperlipidemia HTN (hypertension) Dementia GERD (gastroesophageal reflux disease) Depression SVT (supraventricular tachycardia) Family History Family History Brother Blood clot in vein Other No history of cardiac disorder Surgical History Surgical History History of esophagogastroduodenoscopy (EGD) H/O colonoscopy Status post Paula's procedure History of colostomy reversal H/O hernia repair Social History Social History Household Members: None Housing: Assisted Living Facility Are you a primary nurse care manager to a significant other at home: No Do you presently have visiting nurse or other home services: No Alcohol intake: former Comment: headache better Patient Tobacco Use Status: Never used Tobacco Second Hand Smoke Exposure: No Use of substances other than those prescribed or required for medical reasons: No Have you been hit, kicked, punched, or otherwise hurt by someone within the past year? If so, by whom?: No Do you feel safe in your current relationship?: No Current Relationship Is there a partner from a previous relationship who is making you feel unsafe now?: No Are you made to feel afraid or neglected: No Advance Directives: Yes Advance Directives on File: Yes Advance Directives Date on File: 06/22/23 Recently lost weight without trying: No Nutrition Risks: Difficulty swallowing and On aspiration precautions service: Yes Current occupational status: retired Sexual orientation: Straight/Heterosexual Meds Allergies Allergy/AdvReac Type Severity Reaction Status Date / Time No Known Allergies Allergy Verified 11/14/24 10:15 [No Known Allergies*] Active Medications: Current Medications Acetaminophen (Acetaminophen 325 Mg Tablet) 650 mg PO Q6H PRN PRN Reason: Pain, Mild 1-3,fever,headache Apixaban (Apixaban 5 Mg Tablet) 5 mg PO BID ROMMEL Calcium Carbonate (Calcium Carbonate 750 Mg Tab.Chew) 750 mg PO Q4H PRN PRN Reason: Heartburn Docusate Sodium (Docusate Sodium 100 Mg Capsule) 100 mg PO BID [facility] Ferrous Sulfate (Ferrous Sulfate 324 Mg Tablet.) 324 mg PO DAILY [facility] Finasteride (Finasteride 5 Mg Tablet) 5 mg PO DAILY [facility] Diltiazem HCl 125 mg/ Sodium (Chloride) 125 mls @ 0 mls/hr IVCONT .Q0M [facility]; Protocol Last Titration: 11/28/24 08:42 Dose: 10 mg/hr, 10 mls/hr Lactated Ringer's (Lr) 1,000 mls @ 150 mls/hr IVCONT .Q6H40M [facility] Magnesium Hydroxide (Milk Of Magnesia 30 Ml Oral.Susp) 30 ml PO DAILY PRN PRN Reason: Constipation Melatonin (Melatonin 3 Mg Tablet) 6 mg PO BEDTIME [facility] Nortriptyline HCl (Nortriptyline Hcl 25 Mg Capsule) 100 mg PO BEDTIME [facility] Olanzapine (Olanzapine 7.5 Mg Tablet) 7.5 mg PO BEDTIME [facility] Olanzapine (Olanzapine 5 Mg Tablet) 5 mg PO BID PRN PRN Reason: Anxiety Omeprazole (Omeprazole 40 Mg Capsule.) 40 mg PO DAILY@0630 [facility] Ondansetron HCl (Ondansetron Odt 4 Mg Tab.Rapdis) 4 mg TRANSLINGU Q12H PRN PRN Reason: Nausea And Vomiting Oxybutynin Chloride (Oxybutynin Chloride 5 Mg Tablet) 5 mg PO DAILY [facility] Polyethylene Glycol (Polyethylene Glycol 3350 17 Gm Powd.Pack) 17 gm PO DAILY [facility] Senna (Sennosides 8.6 Mg Tablet) 8.6 mg PO BEDTIME PRN PRN Reason: Constipation Sodium Chloride (0.9 % Sodium Chloride Flush 3 Ml Syringe) 3 ml IVFLUSH QSHIFT [facility] Last Admin: 11/28/24 08:46 Dose: Not Given Trazodone HCl (Trazodone Hcl 50 Mg Tablet) 50 mg PO BEDTIME MRX1 PRN PRN Reason: Sleep Vitamin D (Cholecalciferol (Vitamin D3) 10 Mcg Tablet) 10 mcg PO DAILY [facility] Home Medications ?Medication ?Instructions ?Recorded ?Confirmed ?Last Taken ?Type omeprazole 40 mg capsule,delayed 40 mg PO DAILY@0630 11/14/24 11/28/24 11/27/24 History release polyethylene glycol 3350 17 17 g PO DAILY 11/14/24 11/28/24 11/27/24 History gram/dose oral powder (Miralax) sennosides 8.6 mg tablet (Senna 8.6 mg PO BEDTIME PRN Constipation 11/14/24 11/28/24 Unknown History Lax) nortriptyline 25 mg capsule 100 mg PO BEDTIME 11/28/24 11/28/24 11/27/24 History olanzapine 5 mg tablet 5 mg PO BID PRN Anxiety 11/28/24 11/28/24 11/27/24 History trazodone 50 mg tablet 50 mg PO BEDTIME PRN Sleep 11/28/24 11/28/24 11/25/24 History Physical Exam 2 Vital Signs: Vital Signs: Last Vital Signs Temp 97.4 F 11/28/24 07:56 Pulse 145 H 11/28/24 08:25 Resp 18 11/28/24 08:25 BP 107/56 L 11/28/24 08:25 Pulse Ox 89 L 11/28/24 08:25 O2 Del Method Nasal Cannula 11/28/24 08:25 O2 Flow Rate 5 11/28/24 08:25 BMI result Body Mass Index 27.5 Const: General: comfortable and no acute distress O rientation/consciousness: patient oriented x3 HEENT: Other: Unremarkable Head: Yes normal to inspection Neck: Neck: Yes normal visual inspection Chest: Chest palpation & inspection: normal inspection of the chest Resp: Auscultation: clear to auscultation bilaterally Cardio: Palpation: normal PMI Heart sounds: S1 normal heart sound present, S2 normal heart sound present, no gallops, no murmurs and no rubs GI: Palpation (GI): Soft to palpation Back/Spine/Pelvis: Other: unremarkable Skin: General skin exam: no rashes or lesions noted Neuro: General: patient oriented x3 Extrem: General: Yes normal to inspection Psych: Mental Status: mental status grossly normal Objective Labs and Meds 11/28/24 07:17 11/28/24 07:17 Lab results: Laboratory Results - last 24 hr 11/28/24 11/28/24 07:17 07:19 WBC 14.9 H RBC 3.73 L Hgb 12.7 L Hct 37.3 L MCV 100.0 H MCH 34.0 H MCHC 34.0 RDW 13.9 Plt Count 205 D MPV 9.3 L Immature Gran % (Auto) 0.7 H Neut % (Auto) 88.4 H Lymph % (Auto) 2.[address] [place] % (Auto) 8.3 Eos % (Auto) 0.1 Baso % (Auto) 0.2 Lymph # (Auto) 0.[address] [place] # (Auto) 1.2 Eos # (Auto) 0.0 Baso # (Auto) 0.0 Abs Immat Gran (auto) 0.10 H Absolute Neuts (auto) 13.2 H Absolute Nucleated RBC 0.000 Nucleated RBC % (auto) 0.0 Sodium 140 Potassium 3.9 Chloride 107 Carbon Dioxide 19 L Anion Gap 18 BUN 51 H Creatinine 1.61 H Estim Creat Clear Calc TNP Estimated GFR 41 Random Glucose 182 H Calcium 9.3 Magnesium 1.9 Total Bilirubin 1.4 H AST 78 H ALT 52 H Alkaline Phosphatase 131 H Troponin I High Sens 18.4 B-Natriuretic Peptide 64 Total Protein 6.6 Albumin 3.4 L TSH 0.13 L Hold Yellow Top See Note ECG Interpretation: EKGs show atrial flutter with rapid rate in the 140s to 150 range. Assessment and Plan (1) Atrial flutter with rapid ventricular response: Status: Acute Plan EKGs/telemetry show atrial flutter with rapid rate. Patient is not having any overt symptoms. Hemodynamically stable. It seems that it history of dysphagia and he required GI consultation. Underwent endoscopy and impression was foreign body esophagus with stricture. Hence he is not a candidate for DINESH. For cardioversion, he will require 3-4 weeks of uninterrupted anticoagulation but it seems that he did not get Eliquis for 2 days around the time of endoscopy. Hopefully, we can just control his rate with diltiazem/digoxin. Continue Eliquis moving forward without interruption. After the rates improve, we can get an echocardiogram. We will follow up with you. Discussed with Dr. Banks. Procedures Date of Service Date of Service: 11/28/24
[2024-11-28 08:54] LABS: Estimated Average Glucose 131 mg/dL; Hemoglobin A1c % 6.2 % (<6.0); Total Hemoglobin (HGBA1C) 3300.8081 umol/L
[2024-11-28 08:56] LABS: Free T4 (Free Thyroxine) 1.44 ng/dL (0.71-1.85)
[2024-11-28] MEDS: Lactated Ringers 1,000 ML 150 ML IVCONT ×3 (09:20→23:51)
[2024-11-28] MEDS: Finasteride 5 MG TABLET PO (09:48)
[2024-11-28] MEDS: Apixaban 5 MG TABLET PO ×2 (09:48→20:16)
[2024-11-28] MEDS: Docusate Sodium 100 MG CAPSULE PO ×2 (09:48→20:16)
[2024-11-28] MEDS: oxyBUTYnin chloride 5 MG TABLET PO (09:48)
[2024-11-28] MEDS: Ferrous Sulfate 324 MG TABLET.DR PO (09:48)
[2024-11-28] MEDS: Cholecalciferol (Vitamin D3) 10 MCG TABLET PO (09:48)
--- NOTE | 2024-11-28 14:34 | MHC.CLN ---
NUTRITION KNOWN FROM [facility] ADM. RECENT POOR PO INTAKE. ADDING ENSURE TID TO PROMOTE NUTRITIONAL INTAKE. SUPPLEMENT PROVIDES 1050 KCALS, 60 G PROTEIN. MONITOR WEEKLY.
--- NOTE | 2024-11-28 15:23 | P.EN_ITS ---
Event Note Date of Service: 11/28/24 Event Note: Day hospitalist update S: limited history, endorses malaise but denies chest pain, dyspnea, or palpitations hypoxic to 89%, placed on supplemental O2 O: Temp Pulse Resp BP Pulse Ox O2 Del Method O2 Flow Rate 98.1 F 117 H 18 100/68 94 Nasal Cannula 5 11/28/24 11:23 11/28/24 11:23 11/28/24 11:23 11/28/24 11:23 11/28/24 11:23 11/28/24 11:11/28/24 11:23 Gen: in no acute distress HEENT: sclera anicteric, moist mucus membranes Neck: supple Lungs: diminished L base Heart: irregular, rapid Abd: soft, non-tender, non-distended Ext: no edema Skin: warm/well-perfused Neuro: alert and oriented x3, no focal findings Psych: restricted affect Labs: BUN 51, Cr 1.61 [previously 1.2], glu 182, A1c 6.2, AST 78, ALT 52, TSH 0.13, fT4 1.44, WBC 14.9 CXR: Left lower lobe consolidation, differential considerations noted. A/P: d1 79yo M with prostate CA, hx PE [2020] on apixaban, vertigo, GERD, HLD, MDD + psychosis admitted to [facility]ry 11/14 for anxiety + panic attacks, undergoing ECT. Had endoscopy with removal of esophageal foreign body, balloon dilation of esophageal stricture, and biopsy on 11/26/24. [employer] called 11/28 for tachycardia in 150s; found to have atrial flutter with RVR; given IV metoprolol, digoxin + diltiazem and transferred to telemetry AF/RVR - increase diltiazem drip, given total 0.125 mg digoxin IV x3, rate now 110s- 120s - continue apixaban - Cardiology consulted, TTE pending AHRF due to PNA - check BCx, PCT, urinary antigens for Legionella and pneumococcus, flu/RSV/Covid-19 PCR, MRSA swab, CT chest then start ceftriaxone + doxycycline - wean O2 as tolerated prerenal ANDREA acute metabolic acidosis - continue IV fluids, recheck BMP in AM mild transaminitis - recheck LFTs in AM: likely due to PNA subclinical hyperthyroidism - repeat TFTs in 4-6 wk prediabetes - no insulin needed VTE ppx - apixaban GERD - PPI MDD - Psych consult - continue olanzapine, nortriptylline, trazodone prostatism - finasteride VTE ppx - apixaban dispo - eventual return to [facility] In my clinical judgment, the patient requires continued inpatient hospitalization for the following reasons: AF/RVR Time Spent With Patient Time: Total time managing care of this patient today ____ minutes.
[2024-11-28] MEDS: cefTRIAXone sodium 1 GM VIAL IVPUSH (16:41)
[2024-11-28] MEDS: Lactated Ringers 500 ML 999 ML IV (17:17)
[2024-11-28 17:37] LABS: Procalcitonin 1.52 ng/mL
[2024-11-28] MEDS: Doxycycline Hyclate 100 MG in 0.9 % Sodium Chloride 250 ML 166.67 MG IV (18:28)
[2024-11-28] MEDS: dilTIAZem HCL 125 MG in 0.9 % Sodium Chloride 100 ML 10 MG IVCONT (18:34)
--- NOTE | 2024-11-28 19:25 | PM.EVENT ---
Event Note Date of Service: 11/28/24 Event Note: CT chest concerning for acute cholecystitis as per Radiology. Patient denies abdominal discomfort and no tenderness on abdominal examination. Will add metronidazole and obtain ultrasound of the abdomen to delineate underlying anatomy. Time Spent With Patient Time: Total time managing care of this patient today ____ minutes.
[2024-11-28] MEDS: Melatonin 3 MG TABLET 6 MG PO (20:15)
[2024-11-28] MEDS: OLANZapine 7.5 MG TABLET PO (20:16)
[2024-11-28] MEDS: metroNIDAZOLE/NS 500 MG/100 ML PIGGYBACK 100 MG IV (20:16)
[2024-11-28] MEDS: Nortriptyline HCl 25 MG CAPSULE 100 MG PO (20:16)
[2024-11-28] MEDS: 0.9 % Sodium Chloride Flush 3 ML SYRINGE IVFLUSH (20:17)
[2024-11-28] MEDS: Ondansetron ODT 4 MG TAB.RAPDIS TRANSLINGU (20:36)
[2024-11-29] VITALS (7 sets, daily range): BP systolic 109–130; BP diastolic 58–69; PULSE 79–119; RESP 18–22; TEMP 36.2–37; O2SAT 93–95
[2024-11-29 01:07] LABS: Influenza A PCR NEGATIVE (Negative); Influenza B PCR NEGATIVE (Negative); Resp Syncy Virus RNA Qual PCR NEGATIVE (Negative); SARS COV2 PCR INHOUSE NEGATIVE (Negative)
[2024-11-29] MEDS: metroNIDAZOLE/NS 500 MG/100 ML PIGGYBACK 100 MG IV ×3 (04:31→21:46)
[2024-11-29] MEDS: dilTIAZem HCL 125 MG in 0.9 % Sodium Chloride 100 ML 10 MG IVCONT (06:06)
[2024-11-29] MEDS: Doxycycline Hyclate 100 MG in 0.9 % Sodium Chloride 250 ML 166.67 MG IV ×2 (06:09→17:02)
[2024-11-29] MEDS: Morphine Sulfate 2 MG/ML CARTRIDGE IVPUSH (06:31)
[2024-11-29 06:47] LABS: Venous Blood Gas Refer to POC result
[2024-11-29 06:49] LABS: VBG Base Excess -0.3 mmol/L; VBG HCO3 21 mmol/L (22-26); VBG pCO2 28 mmHg; VBG pH 7.49 (7.32-7.43); VBG pO2 113 mmHg
[2024-11-29 06:50] LABS: Hemoglobin 11.2 g/dl (14.0-18.0); Mean Corpuscular HGB Conc 33.9 g/dl (31.0-36.0); Mean Corpuscular Hemoglobin 33.8 pg (27.0-33.0); Mean Corpuscular Volume 99.7 fL (80.0-98.0); Mean Platelet Volume 9.1 fL (9.4-12.4); Platelet Count 184 X10*3/uL (160-400); Red Blood Count 3.31 X10*6/uL (4.60-5.80); Red Cell Distribution Width 14.1 % (11.0-16.0); White Blood Count 13.6 X10*3/uL (4.8-10.8)
--- NOTE | 2024-11-29 07:00 | CA_ITS ---
Transthoracic Echocardiogram Patient (Last, First, Middle): José Luis Galarza A Gender: Male Date of : 1945 Age: 79 Procedure Date: 11/29/2024 Procedure Type: Transthoracic Echocardiogram Location: [facility] [place] Height: 180.34 cm Weight: 89.36 kg BSA: 2.10 m2 Heart Rate: bpm BP: 107 / 70 mmHg Flight Director: SB Referring MD: Jacinta Banks MD Symptoms: AF Study Quality: Fair ECG Rhythm: Atrial flutter with slightly rapid rate Conclusions: - The left ventricular systolic function is normal. The calculated ejection fraction is 59% by biplane method. - No obvious valvular pathology seen on this study. - There is mild dilatation of the ascending aorta measuring 4.10 cm and mild dilatation of the aortic arch measuring 4.10 cm. Findings Left Ventricle Normal left ventricular cavity size. There is normal left ventricular wall thickness. The left ventricular systolic function is normal. The calculated ejection fraction is 59% by biplane method. There is no evidence of regional wall motion abnormalities. Diastolic function is indeterminate on the basis of available data. Right Ventricle Mildly increased right ventricular cavity size. There is normal right ventricular systolic function. Aortic Valve There is a normal trileaflet aortic valve. There is mild calcification of the aortic valve. There is no aortic valve stenosis. There is trace (trivial) aortic valve regurgitation. Mitral Valve There is mild mitral annular calcification. There is no mitral valve regurgitation. There is no mitral valve stenosis. Pulmonic Valve There is trace pulmonic valve regurgitation. Tricuspid Valve There is trace tricuspid valve regurgitation. There is no evidence of pulmonary hypertension. Great Vessels There is mild dilatation of the ascending aorta measuring 4.10 cm and mild dilatation of the aortic arch measuring 4.10 cm. Venous The inferior vena cava was not well visualized. Pericardium/Pleural There is no evidence of pericardial effusion. Prior Study Comparison No significant change compared to prior study dated: 07/07/2019. Recommendations, Care & Conclusions No obvious valvular pathology seen on this study. Measurements 2D Linear Measurements IVSd: 0.90 0.6-0.9/0.6-1.0 cm LVIDd: 4.54 3.9-5.3/4.2-5.9 cm LVIDd Index: 2.16 2.4-3.2/2.2-3.1 cm/m2 LVIDs: 3.33 2.0-3.6 cm LVPWd: 0.80 0.7-1.1 cm Ao Root: 4.30 2.1-3.5 cm LA Diam: 2.90 2.7-3.8/3.0-4.0 cm LAIDs Index: 1.38 1.5-2.3 cm/m2 LV Mass: 155.25 67-162/88-224 g LV Mass Index: 73.93 43-95/49-115 g/m2 LVOT Diam: 2.40 3.0+(-)1.3 cm 2D Systolic Function EF 4C: 62.90 >55% EF 2C: 54.30 >55% EF BiP: 59.00 >55% Mitral Valve MV Pk E: 0.94 Aortic Valve AoV Pk Danny: 1.11 AoV Pk Grad: 5.00 LVOT LVOT Pk Danny: 0.85 LVOT Mn Danny: 0.58 LVOT VTI: 0.14 LVOT Pk Grad: 3.00 LVOT Mn Grad: 2.00 LVOT Diam: 2.40 LVOT Area: 4.52 Diastolic Function MV Pk E: 0.94 Right Ventricle TAPSE (mm): 20.00 TVS' Danny: 23.00 Tricuspid Valve TR Pk Danny: 2.57 TR Pk Grad: 26.00 RA Press: 3.00 RVSP: 29.00 Great Vessels Aorta Ao Root-2D: 4.30 2.0-3.7 cm Ao Asc: 4.10 2.1-3.4 cm Ao Arch: 4.10 Pulmonary Valve PV Pk Danny: 1.35 Peak PV Grad: 7.00 Updated in Other Vendor System with Status of Final Aldo Carrera MD electronically signed on 11/29/2024 10:58:47 AM with status of Final
[2024-11-29 07:07] LABS: Alanine Aminotransferase 47 U/L (0-40); Albumin Level 2.9 g/dL (3.5-5.0); Alkaline Phosphatase 125 U/L (39-117); Anion Gap 13 (12-20); Aspartate Amino Transferase 59 U/L (5-37); Bilirubin Total 0.8 mg/dL (0.0-1.0); Blood Urea Nitrogen 46 mg/dL (9-16); Calcium 8.7 mg/dL (8.4-10.2); Carbon Dioxide 20 mmol/L (22-29); Chloride 114 mmol/L (96-108); Creatinine Clr Calc Pharmacy 63.6; Estimated Glomerular Filt Rate > 60; Glucose Random 135 mg/dL (60-115); Potassium 3.8 mmol/L (3.3-5.1); Sodium 143 mmol/L (135-145); Total Protein 5.9 g/dL (6.5-8.0)
[2024-11-29 07:11] LABS: B Type Natriuretic Peptide 228 pg/mL (<100)
[2024-11-29] MEDS: Lactated Ringers 1,000 ML 150 ML IVCONT (08:32)
[2024-11-29] MEDS: 0.9 % Sodium Chloride Flush 3 ML SYRINGE IVFLUSH ×2 (08:35→16:14)
--- NOTE | 2024-11-29 09:43 | PM.PNCARD ---
Subjective Subjective Date of Service: 11/29/24 Interval history: Patient denies any active cardiac complaints. Apparently, now there is a concern for acute cholecystitis and he is going to go for further testing. Still on a Cardizem drip. Review of Systems Review of Systems Yes all other systems are reviewed and are negative Constitutional: Reports as per HPI and Reports no additional constitutional complaints Eyes: Reports as per HPI and Denies no additional eye complaints Denies system reviewed and no additional complaints, except as documented and Reports as per HPI Cardiovascular: Reports as per HPI, Reports no additional cardiovascular complaints, Denies acrocyanosis, Denies cool extremities, Denies chest pain, Denies leg edema, Denies lightheadedness, Denies palpitations and Denies dyspnea Respiratory: Reports as per HPI, Denies no additional respiratory complaints and Denies dyspnea Gastrointestinal: Reports as per HPI and Denies no additional gastrointestinal complaints Genitourinary: Reports no additional male genitourinary complaints and Reports as per HPI Musculoskeletal: Reports no additional musculoskeletal complaints and Reports as per HPI Skin/Breast: Reports system reviewed and no additional complaints, except as docu Reports system reviewed and no additional complaints, except as documented and Reports as per HPI Psychiatric: Reports no additional psychiatric complaints and Reports as per HPI Endocrine: Reports no additional endocrine complaints, Reports as per HPI and Denies palpitations Hematologic/Lymphatic: Reports no additional hematologic/lymphatic complaints and Reports as per HPI Allergic/Immunologic: Reports no additional allergic/immunologic complaints and Reports as per HPI Physical Exam Vital Signs: Last Vital Signs Temp 98.5 F 11/29/24 07:38 Pulse 101 H 11/29/24 07:38 Resp 22 H 11/29/24 07:38 BP 110/62 11/29/24 07:38 Pulse Ox 95 11/29/24 07:38 O2 Del Method Nasal Cannula 11/29/24 07:38 O2 Flow Rate 7 11/29/24 07:38 BMI result Body Mass Index 27.5 Const General: comfortable and no acute distress Orientation/consciousness: patient oriented x3 HEENT Other: Unremarkable Head: Yes normal to inspection Neck Neck: Yes normal visual inspection Chest Chest palpation & inspection: normal inspection of the chest Resp Auscultation: clear to auscultation bilaterally Cardio Palpation: normal PMI Heart sounds: S1 normal heart sound present, S2 normal heart sound present, no gallops, no murmurs and no rubs GI Palpation (GI): Soft to palpation Back/Spine/Pelvis Other: unremarkable Skin General skin exam: no rashes or lesions noted Neuro General: patient oriented x3 Extrem General: Yes normal to inspection Psych Mental Status: mental status grossly normal Objective Labs and Meds 11/29/24 06:40 11/29/24 06:40 Lab results: Laboratory Results - last 24 hr 11/28/24 11/29/24 11/29/24 07:17 00:10 06:40 WBC 13.6 H RBC 3.31 L Hgb 11.2 L Hct 33.0 L MCV 99.7 H MCH 33.8 H MCHC 33.9 RDW 14.1 Plt Count 184 MPV 9.1 L Absolute Nucleated RBC 0.000 Nucleated RBC % (auto) 0.0 VBG pH VBG pCO2 VBG pO2 VBG HCO3 VBG O2 Saturation VBG Base Excess Sodium 143 Potassium 3.8 Chloride 114 H Carbon Dioxide 20 L Anion Gap 13 BUN 46 H Creatinine 0.97 Estim Creat Clear Calc 63.6 Estimated GFR > 60 Random Glucose 135 H Calcium 8.7 Total Bilirubin 0.8 AST 59 H ALT 47 H Alkaline Phosphatase 125 H B-Natriuretic Peptide 228 H Total Protein 5.9 L Albumin 2.9 L Procalcitonin 1.52 Influenza Type A (PCR) NEGATIVE Influenza Type B (PCR) NEGATIVE RSV RNA Qual (PCR) NEGATIVE SARS-CoV-2 RNA (RT-PCR) NEGATIVE 11/29/24 06:45 WBC RBC Hgb Hct MCV MCH MCHC RDW Plt Count MPV Absolute Nucleated RBC Nucleated RBC % (auto) VBG pH 7.49 H VBG pCO2 28 VBG pO2 113 VBG HCO3 21 L VBG O2 Saturation 99.0 VBG Base Excess -0.3 Sodium Potassium Chloride Carbon Dioxide Anion Gap BUN Creatinine Estim Creat Clear Calc Estimated GFR Random Glucose Calcium Total Bilirubin AST ALT Alkaline Phosphatase B-Natriuretic Peptide Total Protein Albumin Procalcitonin Influenza Type A (PCR) Influenza Type B (PCR) RSV RNA Qual (PCR) SARS-CoV-2 RNA (RT-PCR) Imaging Radiologist's impression: Impressions Abdomen Ultrasound 11/29/24 07:22 IMPRESSION: Markedly limited examination as described. Hepatic steatosis. Possible sludge in the gallbladder. If there is clinical concern for acute cholecystitis, HIDA scan is recommended. Electronically signed by: Iftikhar Esteves MD 11/29/2024 08:07 AM [facility] Progress Note: A&P Assessment and plan (1) Atrial flutter with rapid ventricular response: Status: Acute Plan Overall, atrial flutter with rapid ventricular response but no acute symptoms and hemodynamically stable. It seems, he had dysphagia and that required GI consultation, endoscopy and foreign body in esophagus with stricture chest within the last few days. There was interruption of anticoagulation at that time. For the sake of cardioversion, he is going to need 3-4 weeks of uninterrupted anticoagulation and also that he would not be suitable for DINESH because of the esophageal issues. Hence we will need to rate control him for time being with some combination of diltiazem, beta-blockers, digoxin. Continue Eliquis. Echocardiogram with a heart rate is well controlled so we can get good quality study. We will follow-up. Discussed with Dr. Banks. Time Spent With Patient Time: Total time managing care of this patient today ____ minutes. Progress Note: Quality Stroke Does the patient have a stroke diagnosis?: No Procedures Date of Service Date of Service: 11/29/24
[2024-11-29 11:41] LABS: MRSA Nasal PCR NEGATIVE (Negative); SA Nasal PCR POSITIVE (Negative)
--- NOTE | 2024-11-29 13:03 | HO.PM.IMPN ---
Subjective Subjective Date of Service: 11/29/24 Interval History: vague compliants, unable to localize; however, denies abd pain or cough; hypoxic, on 7L O2 HR down to high 90s/low 100s Review of Systems Review of Systems: Yes all other systems are reviewed and are negative Physical Exam Vital Signs: Vital Signs: Last Vital Signs Temp 98.6 F 11/29/24 11:24 Pulse 99 11/29/24 11:24 Resp 18 11/29/24 11:24 BP 130/58 L 11/29/24 11:24 Pulse Ox 95 11/29/24 11:24 O2 Del Method Nasal Cannula 11/29/24 11:24 O2 Flow Rate 7 11/29/24 11:24 BMI result Body Mass Index 27.5 Gen: in no acute distress HEENT: sclera anicteric, moist mucus membranes Neck: supple Lungs: diminished L base Heart: irregular Abd: soft, non-tender, non-distended, no Hernandez sign Ext: no edema Skin: warm/well-perfused Neuro: alert and oriented to self, no focal findings Psych: restricted affect, impaired insight Objective Data Active Medications Acetaminophen (Acetaminophen 325 Mg Tablet) 650 mg PO Q6H PRN PRN Reason: Pain, Mild 1-3,fever,headache Apixaban (Apixaban 5 Mg Tablet) 5 mg PO BID [facility] Last Admin: 11/29/24 08:36 Dose: Not Given Documented By: BECKA Non-Admin Reason: NPO Calcium Carbonate (Calcium Carbonate 750 Mg Tab.Chew) 750 mg PO Q4H PRN PRN Reason: Heartburn Ceftriaxone Sodium (Ceftriaxone Sodium 1 Gm Vial) 1 gm IVPUSH Q24H [facility] Last Admin: 11/28/24 16:41 Dose: 1 gm Documented By: HUNTER Docusate Sodium (Docusate Sodium 100 Mg Capsule) 100 mg PO BID [facility] Last Admin: 11/29/24 08:36 Dose: Not Given Documented By: BECKA Non-Admin Reason: NPO Ferrous Sulfate (Ferrous Sulfate 324 Mg Tablet.) 324 mg PO DAILY [facility] Last Admin: 11/29/24 08:36 Dose: Not Given Documented By: BECKA Non-Admin Reason: NPO Finasteride (Finasteride 5 Mg Tablet) 5 mg PO DAILY [facility] Last Admin: 11/29/24 08:36 Dose: Not Given Documented By: BECKA Non-Admin Reason: NPO Diltiazem HCl 125 mg/ Sodium (Chloride) 125 mls @ 0 mls/hr IVCONT .Q0M [facility]; Protocol Last Admin: 11/29/24 06:06 Dose: 10 mg/hr, 10 mls/hr Documented By: LEWIS Lactated Ringer's (Lr) 1,000 mls @ 150 mls/hr IVCONT .Q6H40M [facility] Last Admin: 11/29/24 09:26 Dose: Not Given Documented By: BECKA Non-Admin Reason: Physician Held Med Comments: Verbal order to stop IV fluid. Metronidazole (Flagyl) 500 mg in 100 mls @ 100 mls/hr IV Q8H [facility] Last Admin: 11/29/24 12:32 Dose: 100 mls/hr Documented By: BECKA Doxycycline Hyclate 100 mg/ (Sodium Chloride) 250 mls @ 166.67 mls/hr IV Q12H [facility] Last Infusion: 11/29/24 08:30 Dose: Infused Documented By: BECKA Magnesium Hydroxide (Milk Of Magnesia 30 Ml Oral.Susp) 30 ml PO DAILY PRN PRN Reason: Constipation Melatonin (Melatonin 3 Mg Tablet) 6 mg PO BEDTIME [facility] Last Admin: 11/28/24 20:15 Dose: 6 mg Documented By: LEWIS Nortriptyline HCl (Nortriptyline Hcl 25 Mg Capsule) 100 mg PO BEDTIME [facility] Last Admin: 11/28/24 20:16 Dose: 100 mg Documented By: LEWIS Olanzapine (Olanzapine 7.5 Mg Tablet) 7.5 mg PO BEDTIME [facility] Last Admin: 11/28/24 20:16 Dose: 7.5 mg Documented By: LEWIS Olanzapine (Olanzapine 5 Mg Tablet) 5 mg PO BID PRN PRN Reason: Anxiety Omeprazole (Omeprazole 40 Mg Capsule.Dr) 40 mg PO DAILY@0630 [facility] Last Admin: 11/29/24 04:50 Dose: Not Given Documented By: LEWIS Non-Admin Reason: Patient Condition Contraindication Ondansetron HCl (Ondansetron Odt 4 Mg Tab.Rapdis) 4 mg TRANSLINGU Q12H PRN PRN Reason: Nausea And Vomiting Last Admin: 11/28/24 20:36 Dose: 4 mg Documented By: LEWIS Oxybutynin Chloride (Oxybutynin Chloride 5 Mg Tablet) 5 mg PO DAILY [facility] Last Admin: 11/29/24 08:36 Dose: Not Given Documented By: BECKA Non-Admin Reason: NPO Polyethylene Glycol (Polyethylene Glycol 3350 17 Gm Powd.Pack) 17 gm PO DAILY [facility] Last Admin: 11/29/24 08:36 Dose: Not Given Documented By: BECKA Non-Admin Reason: NPO Senna (Sennosides 8.6 Mg Tablet) 8.6 mg PO BEDTIME PRN PRN Reason: Constipation Sodium Chloride (0.9 % Sodium Chloride Flush 3 Ml Syringe) 3 ml IVFLUSH QSHIFT [facility] Last Admin: 11/29/24 08:35 Dose: 3 ml Documented By: BECKA Trazodone HCl (Trazodone Hcl 50 Mg Tablet) 50 mg PO BEDTIME MRX1 PRN PRN Reason: Sleep Vitamin D (Cholecalciferol (Vitamin D3) 10 Mcg Tablet) 10 mcg PO DAILY [facility] Last Admin: 11/29/24 08:36 Dose: Not Given Documented By: BECKA Non-Admin Reason: NPO Labs 11/29/24 06:40 11/29/24 06:40 Labs: Laboratory Results - last 24 hr 11/28/24 11/28/24 11/29/24 07:17 18:58 00:10 MCV MCH MCHC RDW Plt Count MPV Absolute Nucleated RBC Nucleated RBC % (auto) VBG pH VBG pCO2 VBG pO2 VBG HCO3 VBG O2 Saturation VBG Base Excess Anion Gap Estim Creat Clear Calc Estimated GFR Random Glucose Calcium Total Bilirubin AST ALT Alkaline Phosphatase B-Natriuretic Peptide Total Protein Albumin Procalcitonin 1.52 Nasal Screen MRSA (PCR) NEGATIVE Nasal S. aureus Screen POSITIVE A Nasal MRSA/S.aureus Interp SEE NOTE Influenza Type A (PCR) NEGATIVE Influenza Type B (PCR) NEGATIVE RSV RNA Qual (PCR) NEGATIVE SARS-CoV-2 RNA (RT-PCR) NEGATIVE 11/29/24 11/29/24 06:40 06:45 MCV 99.7 H MCH 33.8 H MCHC 33.9 RDW 14.1 Plt Count 184 MPV 9.1 L Absolute Nucleated RBC 0.000 Nucleated RBC % (auto) 0.0 VBG pH 7.49 H VBG pCO2 28 VBG pO2 113 VBG HCO3 21 L VBG O2 Saturation 99.0 VBG Base Excess -0.3 Anion Gap 13 Estim Creat Clear Calc 63.6 Estimated GFR > 60 Random Glucose 135 H Calcium 8.7 Total Bilirubin 0.8 AST 59 H ALT 47 H Alkaline Phosphatase 125 H B-Natriuretic Peptide 228 H Total Protein 5.9 L Albumin 2.9 L Procalcitonin Nasal Screen MRSA (PCR) Nasal S. aureus Screen Nasal MRSA/S.aureus Interp Influenza Type A (PCR) Influenza Type B (PCR) RSV RNA Qual (PCR) SARS-CoV-2 RNA (RT-PCR) ITS Impressions Abdomen Ultrasound 11/29/24 07:22 IMPRESSION: Markedly limited examination as described. Hepatic steatosis. Possible sludge in the gallbladder. If there is clinical concern for acute cholecystitis, HIDA scan is recommended. Electronically signed by: Iftikhar Esteves MD 11/29/2024 08:07 AM [facility] and Plan (1) Atrial flutter by electrocardiogram: Status: Acute Assessment and Plan: d2 on hospitalist service 79yo M with prostate CA, hx PE [2020] on apixaban, vertigo, GERD, HLD, MDD + psychosis admitted to geriatric psychiatry 11/14 for anxiety + panic attacks, undergoing ECT. Had endoscopy with removal of esophageal foreign body, balloon dilation of esophageal stricture, and biopsy on 11/26/24. [employer] called 11/28 for tachycardia in 150s; found to have atrial flutter with RVR; given IV metoprolol, digoxin + diltiazem and transferred to telemetry AF/RVR - given total 0.125 mg digoxin IV x3, rate now controlled on diltiazem running at 10 mg/hr; convert to PO diltiazem in AM if rate remains controlled - already on apixaban for hx of PE - cannot cardiovert given apixaban was held around time of recent EGD; cannot do DINESH-guided cardioversion given esophageal stricture - Cardiology consulted, TTE 11/29: - The left ventricular systolic function is normal. The calculated ejection fraction is 59% by biplane method. - No obvious valvular pathology seen on this study. - There is mild dilatation of the ascending aorta measuring 4.10 cm and mild dilatation of the aortic arch measuring 4.10 cm. acute hypoxic respiratory failure due to PNA - BCx pending, PCT high at 1.52 (trend), urinary antigens for Legionella and pneumococcus sent, flu/RSV/Covid-19 PCR negative, MRSA swab negative - 11/28- ceftriaxone + doxycycline - wean O2 as tolerated question of acute cholecystitis - seen on CT of chest; US nondiagnostic; will check HIDA; keep NPO for now; metronidazole added 11/28- prerenal ANDREA acute metabolic acidosis - resolved after IV fluid hydration mild transaminitis - likely due to PNA; improving subclinical hyperthyroidism - repeat TFTs in 4-6 wk prediabetes - no insulin needed VTE ppx - apixaban GERD - PPI MDD - Psychiatry consult pending - continue olanzapine, nortriptylline, trazodone prostatism - finasteride VTE ppx - apixaban dispo - eventual return to salty-psych In my clinical judgment, the patient requires continued inpatient hospitalization for the following reasons: AF/RVR, IV ABX Total time managing care of this patient today: 45 minutes. Quality Stroke Does the patient have a stroke diagnosis?: No VTE Prior VTE?: Yes VTE Risk Level:: Medical - moderate - high VTE Device Contraindication: Treatment Not Indicated VTE Drug Contraindication: N/A - Med Ordered
--- NOTE | 2024-11-29 14:15 | MHC.CM.PN ---
IMM 11/29. Pt with dx: dementia, CM intake assessment completed and IMM addressed with pts HCP/daughter Summer. Per pts daughter Summer, pt is from
--- NOTE | 2024-11-29 14:16 | MHC.CM.PN ---
IMM 11/29. Pt with dx: dementia, CM intake assessment completed and IMM addressed with pts HCP/daughter Summer. Pt was transferred from the salty-psych unit. Prior to hospitalization, pt was living at [facility], he uses a wheelchair. Per Summer, she would like the pts brother Michael, and [id number] Keisha to be allowed to speak with him, visit, and speak to staff for updates. HCP on file. DCP: return to salty-psych unit once medically cleared. PCP: Myron ELDER
[2024-11-29] MEDS: cefTRIAXone sodium 1 GM VIAL IVPUSH (16:14)
--- NOTE | 2024-11-29 18:19 | P.CNPS_ITS ---
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 The patient had recently relapsed with psychiatric symptoms had admitted to the geriatric floor he was noted to have a large bolus of food in his esophagus which was dilated and he was noted to have esophagitis and gastritis. The patient has subsequently developed atrial flutter there is history of pulmonary embolism his history of diverticulitis. of note his stepdaughter who is his healthcare proxy has also been under a great deal of pressure recently patient most recently has been treated outpatient with combination of olanzapine and nortriptyline 100 mg. the patient had initially been admitted to Geriatrics secondary to depression irritability with thoughts of suicide denied hallucinations initial plan was to restart course of ECT he then developed the above medical problems he is having significant anxiety and having difficulty swallowing Past Psychiatric History: -Has OP psychiatrist, Dr. Sims. Hx of ECT maintenance treatment. Has OP therapy through [facility]. -Hx of IPLOC at and [facility] for psychotic depression with catatonia. Assisted Living facility reports he has at least 2 inpatient stays a year. -Per chart, pt has declined when he misses ECT treatment, i.e. in 2019 he was admitted to [facility] due to deteriorating after missing ECT in context of pulmonary embolism. [facility] Medical History (Updated 11/30/24 @ 08:58 by Tawanda Garcia MD) Abnormal biliary HIDA scan COVID-19 vaccine administered History of electroconvulsive therapy Major depressive disorder, recurrent, severe with psychotic features Pulmonary embolism Diverticulitis of colon with perforation Hyperlipidemia HTN (hypertension) Dementia GERD (gastroesophageal reflux disease) Depression SVT (supraventricular tachycardia) Surgical History History of esophagogastroduodenoscopy (EGD) H/O colonoscopy Status post Paula's procedure History of colostomy reversal H/O hernia repair Family History: unknown Social History: -Pt resides in an Assisted Living Facility, [facility] in [place]. -Pt?s is . Has step-daughter who is HCP and brother in [place]. He is a . Trauma History: Unknown Diagnostics Vital Signs (24Hr): Vital Signs - 24 hr 11/28/24 19:28 11/28/24 23:15 11/29/24 03:20 Temperature 98.4 F 97.7 F 97.1 F Pulse Rate 122 H 116 H 106 H Respiratory Rate 18 18 18 Blood Pressure 119/62 115/63 109/63 Pulse Oximetry 92 94 95 Oxygen Delivery Method Nasal Cannula Nasal Cannula Oxygen Flow Rate 7 7 7 11/29/24 06:06 11/29/24 07:38 11/29/24 11:24 Temperature 98.5 F 98.6 F Pulse Rate 119 H 101 H 99 Respiratory Rate 22 H 18 Blood Pressure 112/69 110/62 130/58 L Pulse Oximetry 95 95 Oxygen Delivery Method Nasal Cannula Nasal Cannula Oxygen Flow Rate 7 7 11/29/24 15:45 11/29/24 16:00 Temperature 98.3 F Pulse Rate 79 94 Respiratory Rate 20 Blood Pressure 128/62 Pulse Oximetry 95 94 Oxygen Delivery Method Nasal Cannula Nasal Cannula Oxygen Flow Rate 8 8 BMI result Body Mass Index 27.5 Labs 11/30/24 06:37 11/30/24 06:37 Labs: Laboratory Results - last 48 hr 11/28/24 11/28/24 11/28/24 07:17 07:19 18:58 WBC 14.9 H RBC 3.73 L Hgb 12.7 L Hct 37.3 L MCV 100.0 H MCH 34.0 H MCHC 34.0 RDW 13.9 Plt Count 205 D MPV 9.3 L Immature Gran % (Auto) 0.7 H Neut % (Auto) 88.4 H Lymph % (Auto) 2.3 L [place] % (Auto) 8.3 Eos % (Auto) 0.1 Baso % (Auto) 0.2 Lymph # (Auto) 0.3 L [place] # (Auto) 1.2 Eos # (Auto) 0.0 Baso # (Auto) 0.0 Abs Immat Gran (auto) 0.10 H Absolute Neuts (auto) 13.2 H Absolute Nucleated RBC 0.000 Nucleated RBC % (auto) 0.0 VBG pH VBG pCO2 VBG pO2 VBG HCO3 VBG O2 Saturation VBG Base Excess Sodium 140 Potassium 3.9 Chloride 107 Carbon Dioxide 19 L Anion Gap 18 BUN 51 H Creatinine 1.61 H Estim Creat Clear Calc TNP Estimated GFR 41 Random Glucose 182 H Estimat Average Glucose 131 Hemoglobin A1c % 6.2 H Calcium 9.3 Magnesium 1.9 Total Bilirubin 1.4 H AST 78 H ALT 52 H Alkaline Phosphatase 131 H Troponin I High Sens 18.4 B-Natriuretic Peptide 64 Total Protein 6.6 Albumin 3.4 L Procalcitonin 1.52 TSH 0.13 L Free T4 1.44 Hold Yellow Top See Note Nasal Screen MRSA (PCR) NEGATIVE Nasal S. aureus Screen POSITIVE A Nasal MRSA/S.aureus Interp SEE NOTE Influenza Type A (PCR) Influenza Type B (PCR) RSV RNA Qual (PCR) SARS-CoV-2 RNA (RT-PCR) 11/29/24 11/29/24 11/29/24 00:10 06:40 06:45 WBC 13.6 H RBC 3.31 L Hgb 11.2 L Hct 33.0 L MCV 99.7 H MCH 33.8 H MCHC 33.9 RDW 14.1 Plt Count 184 MPV 9.1 L Immature Gran % (Auto) Neut % (Auto) Lymph % (Auto) [place] % (Auto) Eos % (Auto) Baso % (Auto) Lymph # (Auto) [place] # (Auto) Eos # (Auto) Baso # (Auto) Abs Immat Gran (auto) Absolute Neuts (auto) Absolute Nucleated RBC 0.000 Nucleated RBC % (auto) 0.0 VBG pH 7.49 H VBG pCO2 28 VBG pO2 113 VBG HCO3 21 L VBG O2 Saturation 99.0 VBG Base Excess -0.3 Sodium 143 Potassium 3.8 Chloride 114 H Carbon Dioxide 20 L Anion Gap 13 BUN 46 H Creatinine 0.97 Estim Creat Clear Calc 63.6 Estimated GFR > 60 Random Glucose 135 H Estimat Average Glucose Hemoglobin A1c % Calcium 8.7 Magnesium Total Bilirubin 0.8 AST 59 H ALT 47 H Alkaline Phosphatase 125 H Troponin I High Sens B-Natriuretic Peptide 228 H Total Protein 5.9 L Albumin 2.9 L Procalcitonin TSH Free T4 Hold Yellow Top Nasal Screen MRSA (PCR) Nasal S. aureus Screen Nasal MRSA/S.aureus Interp Influenza Type A (PCR) NEGATIVE Influenza Type B (PCR) NEGATIVE RSV RNA Qual (PCR) NEGATIVE SARS-CoV-2 RNA (RT-PCR) NEGATIVE Imaging Radiology Impressions: ITS Impressions Abdomen Ultrasound 11/29/24 07:22 IMPRESSION: Markedly limited examination as described. Hepatic steatosis. Possible sludge in the gallbladder. If there is clinical concern for acute cholecystitis, HIDA scan is recommended. Electronically signed by: Iftikhar Esteves MD 11/29/2024 08:07 AM EST RP Hepatobiliary Scan Nuclear Medicine 11/29/24 15:30 IMPRESSION: No gallbladder activity is seen. Findings are compatible with cystic duct obstruction and acute cholecystitis. Electronically signed by: Iftikhar Esteves MD 11/29/2024 04:02 PM EST RP Mental Status Exam Mental Status Exam Patient Appearance: Unkempt Patient Orientation: Person and Place Level of Consciousness: Awake and Appropriate Patient Behavior: Guarded and Passive Mood Description: Withdrawn and Apprehensive Affect Description: Constricted Patient Cognition Impaired: Yes Ability to Follow Directions: Good Speech Pattern: Clear Memory Description: Working Impaired Hallucinations: None Delusions: Not Present Depressive Symptoms: Increased Anxiety, Insomnia, Thoughts of /Suicide and Difficulty Concentrating Judgement: Fair Judgement and Insight: denying current active thoughts of self-harm he is concerned about his physical health Medications Medications Current Medications Acetaminophen (Acetaminophen 325 Mg Tablet) 650 mg PO Q6H PRN PRN Reason: Pain, Mild 1-3,fever,headache Apixaban (Apixaban 5 Mg Tablet) 5 mg PO BID [facility] Last Admin: 11/29/24 08:36 Dose: Not Given Calcium Carbonate (Calcium Carbonate 750 Mg Tab.Chew) 750 mg PO Q4H PRN PRN Reason: Heartburn Ceftriaxone Sodium (Ceftriaxone Sodium 1 Gm Vial) 1 gm IVPUSH Q24H [facility] Last Admin: 11/29/24 16:14 Dose: 1 gm Docusate Sodium (Docusate Sodium 100 Mg Capsule) 100 mg PO BID [facility] Last Admin: 11/29/24 08:36 Dose: Not Given Ferrous Sulfate (Ferrous Sulfate 324 Mg Tablet.Dr) 324 mg PO DAILY [facility] Last Admin: 11/29/24 08:36 Dose: Not Given Finasteride (Finasteride 5 Mg Tablet) 5 mg PO DAILY [facility] Last Admin: 11/29/24 08:36 Dose: Not Given Diltiazem HCl 125 mg/ Sodium (Chloride) 125 mls @ 0 mls/hr IVCONT .Q0M [facility]; Protocol Last Titration: 11/29/24 17:46 Dose: 2.5 mg/hr, 2.5 mls/hr Metronidazole (Flagyl) 500 mg in 100 mls @ 100 mls/hr IV Q8H [facility] Last Infusion: 11/29/24 14:17 Dose: Infused Doxycycline Hyclate 100 mg/ (Sodium Chloride) 250 mls @ 166.67 mls/hr IV Q12H [facility] Last Admin: 11/29/24 17:02 Dose: 166.67 mls/hr Magnesium Hydroxide (Milk Of Magnesia 30 Ml Oral.Susp) 30 ml PO DAILY PRN PRN Reason: Constipation Melatonin (Melatonin 3 Mg Tablet) 6 mg PO BEDTIME [facility] Last Admin: 11/28/24 20:15 Dose: 6 mg Nortriptyline HCl (Nortriptyline Hcl 25 Mg Capsule) 100 mg PO BEDTIME [facility] Last Admin: 11/28/24 20:16 Dose: 100 mg Olanzapine (Olanzapine 7.5 Mg Tablet) 7.5 mg PO BEDTIME [facility] Last Admin: 11/28/24 20:16 Dose: 7.5 mg Olanzapine (Olanzapine 5 Mg Tablet) 5 mg PO BID PRN PRN Reason: Anxiety Omeprazole (Omeprazole 40 Mg Capsule.Dr) 40 mg PO DAILY@0630 [facility] Last Admin: 11/29/24 04:50 Dose: Not Given Ondansetron HCl (Ondansetron Odt 4 Mg Tab.Rapdis) 4 mg TRANSLINGU Q12H PRN PRN Reason: Nausea And Vomiting Last Admin: 11/28/24 20:36 Dose: 4 mg Oxybutynin Chloride (Oxybutynin Chloride 5 Mg Tablet) 5 mg PO DAILY [facility] Last Admin: 11/29/24 08:36 Dose: Not Given Polyethylene Glycol (Polyethylene Glycol 3350 17 Gm Powd.Pack) 17 gm PO DAILY [facility] Last Admin: 11/29/24 08:36 Dose: Not Given Senna (Sennosides 8.6 Mg Tablet) 8.6 mg PO BEDTIME PRN PRN Reason: Constipation Sodium Chloride (0.9 % Sodium Chloride Flush 3 Ml Syringe) 3 ml IVFLUSH QSHIFT [facility] Last Admin: 11/29/24 16:14 Dose: 3 ml Trazodone HCl (Trazodone Hcl 50 Mg Tablet) 50 mg PO BEDTIME MRX1 PRN PRN Reason: Sleep Vitamin D (Cholecalciferol (Vitamin D3) 10 Mcg Tablet) 10 mcg PO DAILY [facility] Last Admin: 11/29/24 08:36 Dose: Not Given Allergies Allergies Allergy/AdvReac Type Severity Reaction Status Date / Time No Known Allergies Allergy Verified 11/14/24 10:15 [No Known Allergies*] Assessment & Plan Assessment & Plan (1) Major depressive disorder, recurrent, severe with psychotic features: Status: Acute Code(s): F33.3 - Major depressive disorder, recurrent, severe with psychotic symptoms (2) Atrial flutter by electrocardiogram: Status: Acute Code(s): I48.92 - Unspecified atrial flutter (3) GERD (gastroesophageal reflux disease): Status: Acute Code(s): K21.9 - Gastro-esophageal reflux disease without esophagitis Plan monitor for psychosis monitor for any self-harming thoughts or behavior currently he is not on a one-to-one patient states he can maintain his safety at this time this could be variable. Unclear why he is developing atrial flutter given that he is on nortriptyline would decrease nortriptyline at this time to 75 mg my try a gradual taper would also discuss with cardiology. Patient will benefit from lorazepam 0.5 t.i.d. to help with anxiety at this point and event Verónica if possible should be restarted with ECT will follow Total time managing care of this patient today ____ minutes. Patient educated on: diagnosis and medication risk/benefits Informed Consent: further education needed
[2024-11-29] MEDS: Ondansetron ODT 4 MG TAB.RAPDIS TRANSLINGU (21:43)
[2024-11-29] MEDS: Melatonin 3 MG TABLET 6 MG PO (21:45)
[2024-11-29] MEDS: OLANZapine 7.5 MG TABLET PO (21:45)
[2024-11-29] MEDS: Apixaban 5 MG TABLET PO (21:45)
[2024-11-29] MEDS: LORazepam 0.5 MG TABLET PO (21:45)
[2024-11-29] MEDS: traZODone HCL 50 MG TABLET PO (21:45)
[2024-11-29] MEDS: Docusate Sodium 100 MG CAPSULE PO (21:46)
[2024-11-29] MEDS: Nortriptyline HCl 25 MG CAPSULE 75 MG PO (21:46)
[2024-11-29] MEDS: Metoclopramide HCl 10 MG/2 ML VIAL IVPUSH (23:33)
[2024-11-30] VITALS (10 sets, daily range): BP systolic 103–139; BP diastolic 60–96; PULSE 86–150; RESP 17–20; TEMP 36.6–37.1; O2SAT 93–98
[2024-11-30] MEDS: dilTIAZem HCL 125 MG in 0.9 % Sodium Chloride 100 ML IVCONT (02:20)
[2024-11-30] MEDS: metroNIDAZOLE/NS 500 MG/100 ML PIGGYBACK 100 MG IV ×3 (05:18→20:43)
[2024-11-30] MEDS: Doxycycline Hyclate 100 MG in 0.9 % Sodium Chloride 250 ML 166.7 MG IV ×2 (06:20→16:25)
[2024-11-30 07:05] LABS: Hematocrit 31.1 % (42.0-52.0); Hemoglobin 10.5 g/dl (14.0-18.0); Mean Corpuscular HGB Conc 33.8 g/dl (31.0-36.0); Mean Corpuscular Hemoglobin 33.9 pg (27.0-33.0); Mean Corpuscular Volume 100.3 fL (80.0-98.0); Mean Platelet Volume 9.4 fL (9.4-12.4); Platelet Count 175 X10*3/uL (160-400); Red Cell Distribution Width 14.2 % (11.0-16.0); White Blood Count 11.9 X10*3/uL (4.8-10.8)
[2024-11-30 07:22] LABS: Alanine Aminotransferase 43 U/L (0-40); Albumin Level 2.7 g/dL (3.5-5.0); Alkaline Phosphatase 131 U/L (39-117); Anion Gap 12 (12-20); Aspartate Amino Transferase 67 U/L (5-37); Bilirubin Total 0.8 mg/dL (0.0-1.0); Blood Urea Nitrogen 38 mg/dL (9-16); Calcium 8.5 mg/dL (8.4-10.2); Carbon Dioxide 22 mmol/L (22-29); Chloride 114 mmol/L (96-108); Creatinine Clr Calc Pharmacy 77.1; Estimated Glomerular Filt Rate > 60; Glucose Random 126 mg/dL (60-115); Potassium 3.6 mmol/L (3.3-5.1); Sodium 144 mmol/L (135-145); Total Protein 5.5 g/dL (6.5-8.0)
[2024-11-30 07:36] LABS: Procalcitonin 0.53 ng/mL
--- NOTE | 2024-11-30 08:54 | PM.CNGS ---
History of Present Illness Consult details Consult date: 11/30/24 Narrative: 79-year-old male referred for question of acute cholecystitis He is a psych patient and had been staying at the psych unit for major depression psychotic features. However, he was admitted with the inpatient side on 11/28/2024 because of new findings of tachycardia, with atrial flutter chest prior to undergoing ECT. He had a CT angiogram of the chest done yesterday which showed incidental finding of a question of acute cholecystitis so HIDA scan was done and this showed a nonvisualization of gallbladder. He however denies any abdominal pain. He does describe a long history of not swallowing well and is on a pureed diet. He is also being treated for aspiration pneumonia currently and is on IV antibiotics. Review of Systems Constitutional: Constitutional: Denies chills and Denies fever(s) Cardiovascular: Cardiovascular: Denies dyspnea Respiratory: Respiratory: Denies dyspnea Gastrointestinal: Gastrointestinal: Denies abdominal pain Genitourinary: Genitourinary: Denies difficulty urinating PMFSH Past Medical History Medical History (Updated 11/30/24 @ 08:58 by Tawanda Garcia MD) Abnormal biliary HIDA scan COVID-19 vaccine administered History of electroconvulsive therapy Major depressive disorder, recurrent, severe with psychotic features Pulmonary embolism Diverticulitis of colon with perforation Hyperlipidemia HTN (hypertension) Dementia GERD (gastroesophageal reflux disease) Depression SVT (supraventricular tachycardia) Family History Family History Brother Blood clot in vein Other No history of cardiac disorder Surgical History Surgical History History of esophagogastroduodenoscopy (EGD) H/O colonoscopy Status post Paula's procedure History of colostomy reversal H/O hernia repair Social History Social History Household Members: None Housing: Assisted Living Facility Are you a primary childcare worker to a significant other at home: No Do you presently have visiting nurse or other home services: No Alcohol intake: former Comment: headache better Patient Tobacco Use Status: Never used Tobacco Second Hand Smoke Exposure: No Use of substances other than those prescribed or required for medical reasons: No Currently Displaying Signs/Symptoms of Drug Intoxication Withdrawal: No Have you been hit, kicked, punched, or otherwise hurt by someone within the past year? If so, by whom?: No Do you feel safe in your current relationship?: No Current Relationship Is there a partner from a previous relationship who is making you feel unsafe now?: No Are you made to feel afraid or neglected: No Advance Directives: Yes Advance Directives on File: Yes Advance Directives Date on File: 06/22/23 Recently lost weight without trying: No Nutrition Risks: Difficulty swallowing and On aspiration precautions service: No Current occupational status: retired Sexual orientation: Straight/Heterosexual Meds Allergies Allergy/AdvReac Type Severity Reaction Status Date / Time No Known Allergies Allergy Verified 11/14/24 10:15 [No Known Allergies*] Active Medications: Current Medications Acetaminophen (Acetaminophen 325 Mg Tablet) 650 mg PO Q6H PRN PRN Reason: Pain, Mild 1-3,fever,headache Apixaban (Apixaban 5 Mg Tablet) 5 mg PO BID [facility] Last Admin: 11/29/24 21:45 Dose: 5 mg Calcium Carbonate (Calcium Carbonate 750 Mg Tab.Chew) 750 mg PO Q4H PRN PRN Reason: Heartburn Ceftriaxone Sodium (Ceftriaxone Sodium 1 Gm Vial) 1 gm IVPUSH Q24H [facility] Last Admin: 11/29/24 16:14 Dose: 1 gm Docusate Sodium (Docusate Sodium 100 Mg Capsule) 100 mg PO BID [facility] Last Admin: 11/30/24 08:22 Dose: Not Given Ferrous Sulfate (Ferrous Sulfate 324 Mg Tablet.Dr) 324 mg PO DAILY [facility] Last Admin: 11/30/24 08:22 Dose: Not Given Finasteride (Finasteride 5 Mg Tablet) 5 mg PO DAILY [facility] Last Admin: 11/30/24 08:22 Dose: Not Given Diltiazem HCl 125 mg/ Sodium (Chloride) 125 mls @ 0 mls/hr IVCONT .Q0M [facility]; Protocol Last Admin: 11/30/24 02:20 Dose: 2.5 mg/hr, 2.5 mls/hr Metronidazole (Flagyl) 500 mg in 100 mls @ 100 mls/hr IV Q8H [facility] Last Infusion: 11/30/24 06:34 Dose: Infused Doxycycline Hyclate 100 mg/ (Sodium Chloride) 250 mls @ 166.67 mls/hr IV Q12H [facility] Last Infusion: 11/30/24 08:39 Dose: Infused Lorazepam (Lorazepam 0.5 Mg Tablet) 0.5 mg PO TID [facility] Last Admin: 11/30/24 08:22 Dose: Not Given Magnesium Hydroxide (Milk Of Magnesia 30 Ml Oral.Susp) 30 ml PO DAILY PRN PRN Reason: Constipation Melatonin (Melatonin 3 Mg Tablet) 6 mg PO BEDTIME [facility] Last Admin: 11/29/24 21:45 Dose: 6 mg Nortriptyline HCl (Nortriptyline Hcl 25 Mg Capsule) 75 mg PO BEDTIME [facility] Last Admin: 11/29/24 21:46 Dose: 75 mg Olanzapine (Olanzapine 7.5 Mg Tablet) 7.5 mg PO BEDTIME [facility] Last Admin: 11/29/24 21:45 Dose: 7.5 mg Olanzapine (Olanzapine 5 Mg Tablet) 5 mg PO BID PRN PRN Reason: Anxiety Omeprazole (Omeprazole 40 Mg Capsule.Dr) 40 mg PO DAILY@0630 [facility] Last Admin: 11/30/24 05:07 Dose: Not Given Ondansetron HCl (Ondansetron Odt 4 Mg Tab.Rapdis) 4 mg TRANSLINGU Q12H PRN PRN Reason: Nausea And Vomiting Last Admin: 11/29/24 21:43 Dose: 4 mg Oxybutynin Chloride (Oxybutynin Chloride 5 Mg Tablet) 5 mg PO DAILY [facility] Last Admin: 11/30/24 08:22 Dose: Not Given Polyethylene Glycol (Polyethylene Glycol 3350 17 Gm Powd.Pack) 17 gm PO DAILY [facility] Last Admin: 11/30/24 08:22 Dose: Not Given Senna (Sennosides 8.6 Mg Tablet) 8.6 mg PO BEDTIME PRN PRN Reason: Constipation Sodium Chloride (0.9 % Sodium Chloride Flush 3 Ml Syringe) 3 ml IVFLUSH QSHIFT [facility] Last Admin: 11/30/24 08:22 Dose: Not Given Trazodone HCl (Trazodone Hcl 50 Mg Tablet) 50 mg PO BEDTIME MRX1 PRN PRN Reason: Sleep Last Admin: 11/29/24 21:45 Dose: 50 mg Vitamin D (Cholecalciferol (Vitamin D3) 10 Mcg Tablet) 10 mcg PO DAILY [facility] Last Admin: 11/30/24 08:22 Dose: Not Given Home Medications ?Medication ?Instructions ?Recorded ?Confirmed ?Last Taken ?Type omeprazole 40 mg capsule,delayed 40 mg PO DAILY@0630 11/14/24 11/28/24 11/27/24 History release polyethylene glycol 3350 17 17 g PO DAILY 11/14/24 11/28/24 11/27/24 History gram/dose oral powder (Miralax) sennosides 8.6 mg tablet (Senna 8.6 mg PO BEDTIME PRN Constipation 11/14/24 11/28/24 Unknown History Lax) nortriptyline 25 mg capsule 100 mg PO BEDTIME 11/28/24 11/28/24 11/27/24 History olanzapine 5 mg tablet 5 mg PO BID PRN Anxiety 11/28/24 11/28/24 11/27/24 History trazodone 50 mg tablet 50 mg PO BEDTIME PRN Sleep 11/28/24 11/28/24 11/25/24 History Physical Exam Vital Signs: Vital Signs: Last Vital Signs Temp 97.8 F 11/30/24 07:32 Pulse 104 H 11/30/24 07:32 Resp 20 11/30/24 07:32 BP 123/81 11/30/24 07:32 Pulse Ox 94 11/30/24 07:32 O2 Del Method Nasal Cannula 11/30/24 07:32 O2 Flow Rate 7 11/30/24 07:32 BMI result Body Mass Index 27.5 Const: Other: Very anxious looking but comfortable General: no acute distress Resp: Effort & Inspection: normal respiratory effort Cardio: Rhythm: abnormal rhythm GI: Other: No Hernandez's sign Palpation (GI): Soft to palpation, not firm, nontender and no guarding Results Labs 12/02/24 05:56 12/02/24 05:56 Labs: Abnormal lab results 11/28/24 11/30/24 Range/Units 18:58 06:37 WBC 11.9 H (4.8-10.8) X10*3/uL RBC 3.10 L (4.60-5.80) X10*6/uL Hgb 10.5 L (14.0-18.0) g/dl Hct 31.1 L (42.0-52.0) % MCV 100.3 H (80.0-98.0) fL MCH 33.9 H (27.0-33.0) pg Chloride 114 H (96-108) mmol/L BUN 38 H (9-16) mg/dL Random Glucose 126 H (60-115) mg/dL AST 67 H (5-37) U/L ALT 43 H (0-40) U/L Alkaline Phosphatase 131 H (39-117) U/L Total Protein 5.5 L (6.5-8.0) g/dL Albumin 2.7 L (3.5-5.0) g/dL Nasal S. aureus Screen POSITIVE A (Negative) Short CBC 11/30/24 Range/Units 06:37 WBC 11.9 H (4.8-10.8) X10*3/uL Hgb 10.5 L (14.0-18.0) g/dl Hct 31.1 L (42.0-52.0) % Plt Count 175 (160-400) X10*3/uL BMP 11/30/24 06:37 Sodium 144 Potassium 3.6 Chloride 114 H Carbon Dioxide 22 BUN 38 H Creatinine 0.80 Calcium 8.5 Liver Function 11/30/24 Range/Units 06:37 Total Bilirubin 0.8 (0.0-1.0) mg/dL AST 67 H (5-37) U/L ALT 43 H (0-40) U/L Alkaline Phosphatase 131 H (39-117) U/L Albumin 2.7 L (3.5-5.0) g/dL All other labs normal. Assessment and Plan (1) Abnormal biliary HIDA scan: Status: Acute He had an incidental finding of some mild gallbladder wall thickening on CT angiogram so a HIDA scan was done which showed nonvisualization of the gallbladder. He has ultrasound recently does not reveal any gallstones although there may be some sludge He does not have any abdominal pain or tenderness. Current physical exam does not reveal any Hernandez's sign. I am uncertain as to the clinical significance of this abnormal HIDA scan. Clinical picture overall does not suggest acute cholecystitis. I will off on any surgical intervention especially in view of his multiple acute medical issues for now. He is already on IV antibiotics His abdominal exam is very benign. I will follow along while he is in the hospital. Procedures Date of Service Date of Service: 12/02/24
--- NOTE | 2024-11-30 10:47 | MHC.CM.PN ---
EMR REVIEWED, PT FROM [facility] W/AFIV W/RVR, ARF D/T PNA AND S/P HIDA SCAN, PT REMIANS ON CARDIZEM DRIP, IV ABX/ANTIPTOTAZOAL, NO DESAI FOR DC AT THIS TIME, PER HOSPITLAIST PT WILL LIKELY RETURN TO [facility] ONCE MEDICALLY CLEARED, CM WILL CONT TO FOLLOW DC NEEDS.
--- NOTE | 2024-11-30 11:08 | HO.PM.IMPN ---
Subjective Subjective Date of Service: 11/30/24 Interval History: denies ruq pain Physical Exam Vital Signs: Vital Signs: Last Vital Signs Temp 97.8 F 11/30/24 07:32 Pulse 104 H 11/30/24 07:32 Resp 20 11/30/24 07:32 BP 123/81 11/30/24 07:32 Pulse Ox 94 11/30/24 07:32 O2 Del Method Nasal Cannula 11/30/24 07:32 O2 Flow Rate 7 11/30/24 07:32 BMI result Body Mass Index 27.5 Const: Other: Very anxious looking but comfortable General: no acute distress Resp: Effort & Inspection: normal respiratory effort Cardio: Rhythm: abnormal rhythm GI: Other: No Hernandez's sign Palpation (GI): Soft to palpation, not firm, nontender and no guarding Objective Data Active Medications Acetaminophen (Acetaminophen 325 Mg Tablet) 650 mg PO Q6H PRN PRN Reason: Pain, Mild 1-3,fever,headache Apixaban (Apixaban 5 Mg Tablet) 5 mg PO BID [facility] Last Admin: 11/29/24 21:45 Dose: 5 mg Documented By: LEWIS Calcium Carbonate (Calcium Carbonate 750 Mg Tab.Chew) 750 mg PO Q4H PRN PRN Reason: Heartburn Ceftriaxone Sodium (Ceftriaxone Sodium 1 Gm Vial) 1 gm IVPUSH Q24H [facility] Last Admin: 11/29/24 16:14 Dose: 1 gm Documented By: BECKA Docusate Sodium (Docusate Sodium 100 Mg Capsule) 100 mg PO BID [facility] Last Admin: 11/30/24 08:22 Dose: Not Given Documented By: BECKA Non-Admin Reason: NPO Ferrous Sulfate (Ferrous Sulfate 324 Mg Tablet.Dr) 324 mg PO DAILY [facility] Last Admin: 11/30/24 08:22 Dose: Not Given Documented By: BECKA Non-Admin Reason: NPO Finasteride (Finasteride 5 Mg Tablet) 5 mg PO DAILY [facility] Last Admin: 11/30/24 08:22 Dose: Not Given Documented By: BECKA Non-Admin Reason: NPO Diltiazem HCl 125 mg/ Sodium (Chloride) 125 mls @ 0 mls/hr IVCONT .Q0M [facility]; Protocol Last Admin: 11/30/24 02:20 Dose: 2.5 mg/hr, 2.5 mls/hr Documented By: LEWIS Metronidazole (Flagyl) 500 mg in 100 mls @ 100 mls/hr IV Q8H [facility] Last Infusion: 11/30/24 06:34 Dose: Infused Documented By: LEWIS Doxycycline Hyclate 100 mg/ (Sodium Chloride) 250 mls @ 166.67 mls/hr IV Q12H [facility] Last Infusion: 11/30/24 08:39 Dose: Infused Documented By: BECKA Lorazepam (Lorazepam 0.5 Mg Tablet) 0.5 mg PO TID [facility] Last Admin: 11/30/24 08:22 Dose: Not Given Documented By: BECKA Non-Admin Reason: NPO Magnesium Hydroxide (Milk Of Magnesia 30 Ml Oral.Susp) 30 ml PO DAILY PRN PRN Reason: Constipation Melatonin (Melatonin 3 Mg Tablet) 6 mg PO BEDTIME [facility] Last Admin: 11/29/24 21:45 Dose: 6 mg Documented By: LEWIS Nortriptyline HCl (Nortriptyline Hcl 25 Mg Capsule) 75 mg PO BEDTIME [facility] Last Admin: 11/29/24 21:46 Dose: 75 mg Documented By: LEWIS Olanzapine (Olanzapine 7.5 Mg Tablet) 7.5 mg PO BEDTIME [facility] Last Admin: 11/29/24 21:45 Dose: 7.5 mg Documented By: LEWIS Olanzapine (Olanzapine 5 Mg Tablet) 5 mg PO BID PRN PRN Reason: Anxiety Omeprazole (Omeprazole 40 Mg Capsule.) 40 mg PO DAILY@0630 [facility] Last Admin: 11/30/24 05:07 Dose: Not Given Documented By: LEWIS Non-Admin Reason: Patient Condition Contraindication Ondansetron HCl (Ondansetron Odt 4 Mg Tab.Rapdis) 4 mg TRANSLINGU Q12H PRN PRN Reason: Nausea And Vomiting Last Admin: 11/29/24 21:43 Dose: 4 mg Documented By: LEWIS Oxybutynin Chloride (Oxybutynin Chloride 5 Mg Tablet) 5 mg PO DAILY [facility] Last Admin: 11/30/24 08:22 Dose: Not Given Documented By: BECKA Non-Admin Reason: NPO Polyethylene Glycol (Polyethylene Glycol 3350 17 Gm Powd.Pack) 17 gm PO DAILY [facility] Last Admin: 11/30/24 08:22 Dose: Not Given Documented By: BECKA Non-Admin Reason: NPO Senna (Sennosides 8.6 Mg Tablet) 8.6 mg PO BEDTIME PRN PRN Reason: Constipation Sodium Chloride (0.9 % Sodium Chloride Flush 3 Ml Syringe) 3 ml IVFLUSH QSHIFT [facility] Last Admin: 11/30/24 08:22 Dose: Not Given Documented By: BECKA Non-Admin Reason: IV Running Trazodone HCl (Trazodone Hcl 50 Mg Tablet) 50 mg PO BEDTIME MRX1 PRN PRN Reason: Sleep Last Admin: 11/29/24 21:45 Dose: 50 mg Documented By: LEWIS Vitamin D (Cholecalciferol (Vitamin D3) 10 Mcg Tablet) 10 mcg PO DAILY [facility] Last Admin: 11/30/24 08:22 Dose: Not Given Documented By: BECKA Non-Yakov Reason: NPO Labs 11/30/24 06:37 11/30/24 06:37 Labs: Laboratory Results - last 24 hr 11/28/24 11/30/24 18:58 06:37 MCV 100.3 H MCH 33.9 H MCHC 33.8 RDW 14.2 Plt Count 175 MPV 9.4 Absolute Nucleated RBC 0.000 Nucleated RBC % (auto) 0.0 Anion Gap 12 Estim Creat Clear Calc 77.1 Estimated GFR > 60 Random Glucose 126 H Calcium 8.5 Total Bilirubin 0.8 AST 67 H ALT 43 H Alkaline Phosphatase 131 H Total Protein 5.5 L Albumin 2.7 L Procalcitonin 0.53 Nasal Screen MRSA (PCR) NEGATIVE Nasal S. aureus Screen POSITIVE A Nasal MRSA/S.aureus Interp SEE NOTE Microbiology Microbiology Results: Microbiology 11/28/24 15:41 Blood Culture - Preliminary Blood - Venous No growth after 24 hours. 11/28/24 15:41 Blood Culture - Preliminary Blood - Venous No growth after 24 hours. Assessment and Plan (1) Atrial flutter by electrocardiogram: Status: Acute Assessment and Plan: 79M PMH prostate CA, hx PE [2020] on apixaban, vertigo, GERD, HLD, MDD + psychosis admitted to geriatric psychiatry 11/14 for anxiety + panic attacks, undergoing ECT. Had endoscopy with removal of esophageal foreign body, balloon dilation of esophageal stricture, and biopsy on 11/26/24. [employer] CUTTER called 11/28 for tachycardia in 150s; found to have atrial flutter with RVR; given IV metoprolol, digoxin + diltiazem and transferred to telemetry paroxysmal AF/RVR given total 0.125 mg digoxin IV x3, rate now controlled on diltiazem already on apixaban for hx of PE - cannot cardiovert given apixaban was held around time of recent EGD; cannot do DINESH-guided cardioversion given esophageal stricture - Cardiology consulted, TTE 11/29: - The left ventricular systolic function is normal. The calculated ejection fraction is 59% by biplane method. - No obvious valvular pathology seen on this study. - There is mild dilatation of the ascending aorta measuring 4.10 cm and mild dilatation of the aortic arch measuring 4.10 cm. acute hypoxic respiratory failure due to PNA - PCT high at 1.52 (trend), urinary antigens for Legionella and pneumococcus sent, flu/RSV/Covid-19 PCR negative, MRSA swab negative - 11/28- ceftriaxone + doxycycline - wean O2 as tolerated question of acute cholecystitis seen on CT of chest; US nondiagnostic; positive HIDA; metronidazole added 11/28 surgery appreciated, no need for intervention at this time prerenal ANDREA acute metabolic acidosis resolved after IV fluid hydration mild transaminitis likely due to PNA vs hcolecytstitis; improving subclinical hyperthyroidism repeat TFTs in 4-6 wk prediabetes no insulin needed VTE ppx apixaban GERD PPI MDD continue olanzapine, nortriptylline, trazodone prostatism finasteride dispo - eventual return to [facility] reason for continued hospitalization:rvr, hypoxia Total time managing care of this patient today: 45 minutes. Quality Stroke Does the patient have a stroke diagnosis?: No VTE Prior VTE?: Yes VTE Risk Level:: Medical - moderate - high VTE Device Contraindication: Treatment Not Indicated VTE Drug Contraindication: N/A - Med Ordered
[2024-11-30] MEDS: LORazepam 2 MG/ML VIAL 0.5 MG IVPUSH (14:06)
[2024-11-30 15:51] LABS: CDiff Gene PCR NEGATIVE (Negative)
[2024-11-30] MEDS: cefTRIAXone sodium 1 GM VIAL IVPUSH (16:25)
[2024-11-30] MEDS: 0.9 % Sodium Chloride Flush 3 ML SYRINGE IVFLUSH ×2 (16:26→20:42)
--- NOTE | 2024-11-30 17:10 | MHC.SL.SWA ---
Speech Pathologist Impression: Adequate oropharyngeal swallow coordination, frequent s/s of esophageal dysphagia s/p PO intake Risk of Aspiration Due to: Poor PO Intake Reduced Cognition Hx of dysphagia Dysphasia Diet Status: Purees and thins Liquid Consistency and Strategies for Safe Swallow: Liquid Intake Recommendation: Thin Liquid Intake Strategies: Small Sips Solid Food Consistency: Dietary Recommendations: Pureed (NDD1) Additional Modifications to Solid Foods: Oral Medication Intake: Whole with Puree Please contact the pharmacy regarding appropriate crushable or liquid drug formulations that are available whenever modified delivery is recommended. Compensatory Strategies and Precautions to be Taken for Safe Swallow: Sitting Upright (90 deg) Small Bites and Sips Alternate Liquids/Solids Rate of Ingestion Change Supervision While Eating and Drinking for Safe Swallow: Intermittent Supervision Foods to Avoid: Tough or overly dry, crumbly foods Swallowing Recommended Treatments: Compens. Strategy Educat. Recommendation for Speech: Comment: Unclear etiology of dysphagia, evidence of esophageal involvement, pt is on PPI, endorses long history of reflux and burping after eating. Pt likely not meeting nutritional needs as intake has been poor for over a week. and intermittent dysphagia prevents adequate tolerance. Alternative nutrition may be indicated at this time. [facility] DE[employer] MANAGER continues to follow. Frequency/Duration: Date Range for Service Req: Timeline to reassess: Inclusion Paraeducator Clinican/Clinical Fellow: No Supervisory Statement: I have reviewed and agree with the student/clinical fellow's documentation: N/A Speech Language Pathologist: Cydney Villegas M.S., [facility] DEPART[facility] MANAGER
[2024-11-30] MEDS: LORazepam 0.5 MG TABLET PO (20:36)
[2024-11-30] MEDS: Docusate Sodium 100 MG CAPSULE PO (20:36)
[2024-11-30] MEDS: Melatonin 3 MG TABLET 6 MG PO (20:37)
[2024-11-30] MEDS: OLANZapine 7.5 MG TABLET PO (20:37)
[2024-11-30] MEDS: Apixaban 5 MG TABLET PO (20:37)
[2024-11-30] MEDS: Nortriptyline HCl 25 MG CAPSULE 75 MG PO (20:37)
[2024-12-01] VITALS (8 sets, daily range): BP systolic 119–156; BP diastolic 61–86; PULSE 60–114; RESP 17–21; TEMP 36.3–37; O2SAT 88–97
[2024-12-01] MEDS: metroNIDAZOLE/NS 500 MG/100 ML PIGGYBACK 100 MG IV ×3 (03:32→21:00)
[2024-12-01] MEDS: Doxycycline Hyclate 100 MG in 0.9 % Sodium Chloride 250 ML 166.67 MG IV ×2 (05:08→17:07)
[2024-12-01] MEDS: Omeprazole 40 MG CAPSULE.DR PO (05:10)
[2024-12-01 05:34] LABS: Strep Pneumo Ag urine Not Detected (Not Detected)
[2024-12-01 06:47] LABS: Hematocrit 30.7 % (42.0-52.0); Hemoglobin 10.4 g/dl (14.0-18.0); Mean Corpuscular HGB Conc 33.9 g/dl (31.0-36.0); Mean Corpuscular Hemoglobin 33.7 pg (27.0-33.0); Mean Corpuscular Volume 99.4 fL (80.0-98.0); Mean Platelet Volume 8.9 fL (9.4-12.4); Platelet Count 176 X10*3/uL (160-400); Red Blood Count 3.09 X10*6/uL (4.60-5.80); Red Cell Distribution Width 14.4 % (11.0-16.0); White Blood Count 12.6 X10*3/uL (4.8-10.8)
[2024-12-01 07:07] LABS: Anion Gap 9 (12-20); Blood Urea Nitrogen 32 mg/dL (9-16); Calcium 8.4 mg/dL (8.4-10.2); Carbon Dioxide 23 mmol/L (22-29); Chloride 115 mmol/L (96-108); Creatinine Clr Calc Pharmacy 81.1; Estimated Glomerular Filt Rate > 60; Glucose Random 137 mg/dL (60-115); Magnesium 1.7 mg/dL (1.6-2.6); Potassium 3.3 mmol/L (3.3-5.1); Sodium 144 mmol/L (135-145)
--- NOTE | 2024-12-01 07:45 | PC.RT ---
pt nauseaus, vomitting and most likely aspirating own vomit. Ot sats 70's increase stover n/c to 15 liters unablt to wear oxymask at this time. recommneded IV zofran instead of sublinguinal. Dr. Wild called and aware.,
--- NOTE | 2024-12-01 08:23 | PM.PNGS ---
Subjective Subjective Date of Service: 12/01/24 Interval history: Just vomited at bedside As per nurse, seemed to have aspirated Denies abdominal pain Physical Exam Vital Signs: Vital Signs: Last Vital Signs Temp 98.1 F 12/01/24 07:27 Pulse 114 H 12/01/24 07:27 Resp 17 12/01/24 07:27 BP 156/86 H 12/01/24 07:27 Pulse Ox 88 L 12/01/24 07:27 O2 Del Method Nasal Cannula 12/01/24 07:27 O2 Flow Rate 7 12/01/24 07:27 BMI result Body Mass Index 27.5 Const: Other: Coughing, some shortness of breath General: no acute distress Resp: Other: Some shortness of breath Cardio: Rate: tachycardic GI: Palpation (GI): Soft to palpation, not firm, nontender and no guarding Objective Data Active Medications Acetaminophen (Acetaminophen 325 Mg Tablet) 650 mg PO Q6H PRN PRN Reason: Pain, Mild 1-3,fever,headache Apixaban (Apixaban 5 Mg Tablet) 5 mg PO BID [facility] Last Admin: 11/30/24 20:37 Dose: 5 mg Documented By: AJITH Calcium Carbonate (Calcium Carbonate 750 Mg Tab.Chew) 750 mg PO Q4H PRN PRN Reason: Heartburn Ceftriaxone Sodium (Ceftriaxone Sodium 1 Gm Vial) 1 gm IVPUSH Q24H [facility] Last Admin: 11/30/24 16:25 Dose: 1 gm Documented By: BECKA Docusate Sodium (Docusate Sodium 100 Mg Capsule) 100 mg PO BID [facility] Last Admin: 11/30/24 20:36 Dose: 100 mg Documented By: AJITH Ferrous Sulfate (Ferrous Sulfate 324 Mg Tablet.Dr) 324 mg PO DAILY [facility] Last Admin: 11/30/24 08:22 Dose: Not Given Documented By: BECKA Non-Admin Reason: NPO Finasteride (Finasteride 5 Mg Tablet) 5 mg PO DAILY [facility] Last Admin: 11/30/24 08:22 Dose: Not Given Documented By: BECKA Non-Admin Reason: NPO Diltiazem HCl 125 mg/ Sodium (Chloride) 125 mls @ 0 mls/hr IVCONT .Q0M [facility]; Protocol Last Titration: 11/30/24 21:28 Dose: Infused Documented By: AJITH Metronidazole (Flagyl) 500 mg in 100 mls @ 100 mls/hr IV Q8H [facility] Last Infusion: 12/01/24 05:15 Dose: Infused Documented By: AJITH Doxycycline Hyclate 100 mg/ (Sodium Chloride) 250 mls @ 166.67 mls/hr IV Q12H [facility] Last Infusion: 12/01/24 07:54 Dose: Infused Documented By: MATTHEW Lorazepam (Lorazepam 0.5 Mg Tablet) 0.5 mg PO TID [facility] Last Admin: 11/30/24 20:36 Dose: 0.5 mg Documented By: AJITH Lorazepam (Lorazepam 2 Mg/Ml Vial) 0.5 mg IVPUSH Q12H PRN PRN Reason: Anxiety Last Admin: 11/30/24 14:06 Dose: 0.5 mg Documented By: BECKA Magnesium Hydroxide (Milk Of Magnesia 30 Ml Oral.Susp) 30 ml PO DAILY PRN PRN Reason: Constipation Melatonin (Melatonin 3 Mg Tablet) 6 mg PO BEDTIME [facility] Last Admin: 11/30/24 20:37 Dose: 6 mg Documented By: AJITH Metoprolol Tartrate (Metoprolol Tartrate 5 Mg/5 Ml Vial) 5 mg IVPUSH Q6H PRN; Protocol PRN Reason: hr>120 Nortriptyline HCl (Nortriptyline Hcl 25 Mg Capsule) 75 mg PO BEDTIME [facility] Last Admin: 11/30/24 20:37 Dose: 75 mg Documented By: AJITH Olanzapine (Olanzapine 7.5 Mg Tablet) 7.5 mg PO BEDTIME [facility] Last Admin: 11/30/24 20:37 Dose: 7.5 mg Documented By: AJITH Olanzapine (Olanzapine 5 Mg Tablet) 5 mg PO BID PRN PRN Reason: Anxiety Omeprazole (Omeprazole 40 Mg Capsule.Dr) 40 mg PO DAILY@0630 [facility] Last Admin: 12/01/24 05:10 Dose: 40 mg Documented By: AJITH Ondansetron HCl (Ondansetron Odt 4 Mg Tab.Rapdis) 4 mg TRANSLINGU Q12H PRN PRN Reason: Nausea And Vomiting Last Admin: 11/29/24 21:43 Dose: 4 mg Documented By: LEWIS Oxybutynin Chloride (Oxybutynin Chloride 5 Mg Tablet) 5 mg PO DAILY [facility] Last Admin: 11/30/24 08:22 Dose: Not Given Documented By: BECKA Non-Admin Reason: NPO Polyethylene Glycol (Polyethylene Glycol 3350 17 Gm Powd.Pack) 17 gm PO DAILY [facility] Last Admin: 11/30/24 08:22 Dose: Not Given Documented By: BECKA Non-Admin Reason: NPO Senna (Sennosides 8.6 Mg Tablet) 8.6 mg PO BEDTIME PRN PRN Reason: Constipation Sodium Chloride (0.9 % Sodium Chloride Flush 3 Ml Syringe) 3 ml IVFLUSH QSHIFT [facility] Last Admin: 11/30/24 20:42 Dose: 3 ml Documented By: AJITH Trazodone HCl (Trazodone Hcl 50 Mg Tablet) 50 mg PO BEDTIME MRX1 PRN PRN Reason: Sleep Last Admin: 11/29/24 21:45 Dose: 50 mg Documented By: LEWIS Vitamin D (Cholecalciferol (Vitamin D3) 10 Mcg Tablet) 10 mcg PO DAILY [facility] Last Admin: 11/30/24 08:22 Dose: Not Given Documented By: BECKA Non-Admin Reason: NPO Labs 12/01/24 06:40 12/01/24 06:40 Labs: Laboratory Results - last 24 hr 11/28/24 11/30/24 12/01/24 18:00 14:38 06:40 MCV 99.4 H MCH 33.7 H MCHC 33.9 RDW 14.4 Plt Count 176 MPV 8.9 L Absolute Nucleated RBC 0.000 Nucleated RBC % (auto) 0.0 Anion Gap 9 L Estim Creat Clear Calc 81.1 Estimated GFR > 60 Random Glucose 137 H Calcium 8.4 Magnesium 1.7 C. difficile Tox B Gene NEGATIVE Ur Strep pneumoniae Ag Not Detected Microbiology Microbiology Results: Microbiology 11/28/24 15:41 Blood Culture - Preliminary Blood - Venous No growth after 48 hours. 11/28/24 15:41 Blood Culture - Preliminary Blood - Venous No growth after 48 hours. Procedures Date of Service Date of Service: 12/01/24 Progress Note: A&P Assessment and plan (1) Abnormal biliary HIDA scan: Status: Acute Assessment and Plan: No pain or tenderness No Hernandez's sign With some shortness of breath, likely secondary to aspiration after an episode of vomiting With multiple other medical problems No surgical intervention appears to be necessary at this time Time Spent With Patient Time: Total time managing care of this patient today ____ minutes. Quality Stroke Does the patient have a stroke diagnosis?: No VTE Prior VTE?: Yes VTE Risk Level:: Medical - moderate - high VTE Device Contraindication: Treatment Not Indicated VTE Drug Contraindication: N/A - Med Ordered
[2024-12-01 09:20] LABS: Adenovirus F 40/41 Not Detected (Not Detect.); Astrovirus Not Detected (Not Detect.); Campylobacter Not Detected (Not Detect.); Cryptosporidium Not Detected (Not Detect.); Cyclospora cayetanensis Not Detected (Not Detect.); E. coli EAEC Not Detected (Not Detect.); E. coli EPEC Not Detected (Not Detect.); E. coli ETEC Not Detected (Not Detect.); E. coli STEC Not Detected (Not Detect.); Entamoeba histolytica Not Detected (Not Detect.); Giardia lamblia Not Detected (Not Detect.); Plesiomonas shigelloides Not Detected (Not Detect.); Rotavirus A Not Detected (Not Detect.); Salmonella Not Detected (Not Detect.); Sapovirus Not Detected (Not Detect.); Shigella sp./EIEC Not Detected (Not Detect.); Vibrio Not Detected (Not Detect.); Vibrio Cholerae Not Detected (Not Detect.); Yersinia enterocolitica Not Detected (Not Detect.)
[2024-12-01] MEDS: Apixaban 5 MG TABLET PO ×2 (09:29→21:06)
[2024-12-01] MEDS: LORazepam 0.5 MG TABLET PO ×3 (09:29→21:06)
[2024-12-01] MEDS: 0.9 % Sodium Chloride Flush 3 ML SYRINGE IVFLUSH ×3 (09:33→21:17)
[2024-12-01 10:40] LABS: Norovirus GI/GII Detected (Not Detect.)
--- NOTE | 2024-12-01 10:58 | P.PNIM_ITS ---
Subjective Subjective Date of Service: 12/01/24 Interval History: vomited, aspirated Physical Exam 2 Vital Signs: Vital Signs: Last Vital Signs Temp 98.1 F 12/01/24 07:27 Pulse 114 H 12/01/24 07:27 Resp 17 12/01/24 07:27 BP 156/86 H 12/01/24 07:27 Pulse Ox 88 L 12/01/24 07:27 O2 Del Method Nasal Cannula 12/01/24 07:27 O2 Flow Rate 7 12/01/24 07:27 BMI result Body Mass Index 27.5 Const: Other: Coughing, some shortness of breath General: no acute distress Resp: Other: Some shortness of breath Cardio: Rate: tachycardic GI: Palpation (GI): Soft to palpation, not firm, nontender and no guarding Objective Data Active Medications Acetaminophen (Acetaminophen 325 Mg Tablet) 650 mg PO Q6H PRN PRN Reason: Pain, Mild 1-3,fever,headache Apixaban (Apixaban 5 Mg Tablet) 5 mg PO BID [facility] Last Admin: 12/01/24 09:29 Dose: 5 mg Documented By: MATTHEW Calcium Carbonate (Calcium Carbonate 750 Mg Tab.Chew) 750 mg PO Q4H PRN PRN Reason: Heartburn Ceftriaxone Sodium (Ceftriaxone Sodium 1 Gm Vial) 1 gm IVPUSH Q24H [facility] Last Admin: 11/30/24 16:25 Dose: 1 gm Documented By: BECKA Docusate Sodium (Docusate Sodium 100 Mg Capsule) 100 mg PO BID [facility] Last Admin: 12/01/24 09:32 Dose: Not Given Documented By: MATTHEW Non-Admin Reason: pt coughing Ferrous Sulfate (Ferrous Sulfate 324 Mg Tablet.Dr) 324 mg PO DAILY [facility] Last Admin: 12/01/24 09:32 Dose: Not Given Documented By: MATTHEW Non-Admin Reason: pt coughing Finasteride (Finasteride 5 Mg Tablet) 5 mg PO DAILY [facility] Last Admin: 12/01/24 09:32 Dose: Not Given Documented By: MATTHEW Non-Admin Reason: pt coughing Diltiazem HCl 125 mg/ Sodium (Chloride) 125 mls @ 0 mls/hr IVCONT .Q0M [facility]; Protocol Last Titration: 11/30/24 21:28 Dose: Infused Documented By: AJITH Metronidazole (Flagyl) 500 mg in 100 mls @ 100 mls/hr IV Q8H [facility] Last Infusion: 12/01/24 05:15 Dose: Infused Documented By: AJITH Doxycycline Hyclate 100 mg/ (Sodium Chloride) 250 mls @ 166.67 mls/hr IV Q12H [facility] Last Infusion: 12/01/24 07:54 Dose: Infused Documented By: MATTHEW Lorazepam (Lorazepam 0.5 Mg Tablet) 0.5 mg PO TID [facility] Last Admin: 12/01/24 09:29 Dose: 0.5 mg Documented By: MATTHEW Lorazepam (Lorazepam 2 Mg/Ml Vial) 0.5 mg IVPUSH Q12H PRN PRN Reason: Anxiety Last Admin: 11/30/24 14:06 Dose: 0.5 mg Documented By: BECKA Magnesium Hydroxide (Milk Of Magnesia 30 Ml Oral.Susp) 30 ml PO DAILY PRN PRN Reason: Constipation Melatonin (Melatonin 3 Mg Tablet) 6 mg PO BEDTIME [facility] Last Admin: 11/30/24 20:37 Dose: 6 mg Documented By: AJITH Metoprolol Tartrate (Metoprolol Tartrate 5 Mg/5 Ml Vial) 5 mg IVPUSH Q6H PRN; Protocol PRN Reason: hr>120 Nortriptyline HCl (Nortriptyline Hcl 25 Mg Capsule) 75 mg PO BEDTIME [facility] Last Admin: 11/30/24 20:37 Dose: 75 mg Documented By: AJITH Olanzapine (Olanzapine 7.5 Mg Tablet) 7.5 mg PO BEDTIME [facility] Last Admin: 11/30/24 20:37 Dose: 7.5 mg Documented By: AJITH Olanzapine (Olanzapine 5 Mg Tablet) 5 mg PO BID PRN PRN Reason: Anxiety Omeprazole (Omeprazole 40 Mg Capsule.) 40 mg PO DAILY@0630 [facility] Last Admin: 12/01/24 05:10 Dose: 40 mg Documented By: AJITH Ondansetron HCl (Ondansetron Odt 4 Mg Tab.Rapdis) 4 mg TRANSLINGU Q12H PRN PRN Reason: Nausea And Vomiting Last Admin: 11/29/24 21:43 Dose: 4 mg Documented By: LEWIS Oxybutynin Chloride (Oxybutynin Chloride 5 Mg Tablet) 5 mg PO DAILY [facility] Last Admin: 12/01/24 09:32 Dose: Not Given Documented By: MATTHEW Non-Admin Reason: pt coughing Polyethylene Glycol (Polyethylene Glycol 3350 17 Gm Powd.Pack) 17 gm PO DAILY [facility] Last Admin: 12/01/24 09:32 Dose: Not Given Documented By: MATTHEW Non-Admin Reason: pt coughing Senna (Sennosides 8.6 Mg Tablet) 8.6 mg PO BEDTIME PRN PRN Reason: Constipation Sodium Chloride (0.9 % Sodium Chloride Flush 3 Ml Syringe) 3 ml IVFLUSH QSHIFT [facility] Last Admin: 12/01/24 09:33 Dose: 3 ml Documented By: MATTHEW Trazodone HCl (Trazodone Hcl 50 Mg Tablet) 50 mg PO BEDTIME MRX1 PRN PRN Reason: Sleep Last Admin: 11/29/24 21:45 Dose: 50 mg Documented By: LEWIS Vitamin D (Cholecalciferol (Vitamin D3) 10 Mcg Tablet) 10 mcg PO DAILY [facility] Last Admin: 12/01/24 09:32 Dose: Not Given Documented By: MATTHEW Non-Admin Reason: pt coughing Labs 12/01/24 06:40 12/01/24 06:40 Labs: Laboratory Results - last 24 hr 11/28/24 11/30/24 12/01/24 18:00 14:38 06:40 MCV 99.4 H MCH 33.7 H MCHC 33.9 RDW 14.4 Plt Count 176 MPV 8.9 L Absolute Nucleated RBC 0.000 Nucleated RBC % (auto) 0.0 Anion Gap 9 L Estim Creat Clear Calc 81.1 Estimated GFR > 60 Random Glucose 137 H Calcium 8.4 Magnesium 1.7 Stl C. cayetanensis PCR Not Detected Stool Rotavirus A PCR Not Detected Stl Adenov F 40/41 PCR Not Detected Stool Astrovirus (PCR) Not Detected Stool Campylobacter PCR Not Detected Stool Cryptosporidium PCR Not Detected Stl Sh Tox Pr E STEC PCR Not Detected Stool E coli O157 PCR Not applicable Stl Enterotoxigenic E PCR Not Detected Stool EPEC (PCR) Not Detected Stool EAEC (PCR) Not Detected Stl E. histolytica PCR Not Detected Stool Giardia Lamblia PCR Not Detected Stl P. shigelloides PCR Not Detected Stool Salmonella PCR Not Detected Stool Sapovirus (PCR) Not Detected Stl Shigella/EIEC PCR Not Detected St Y.enterocolitica PCR Not Detected Stool Vibrio (PCR) Not Detected Stl Vibrio cholerae PCR Not Detected Stl Norovirus GI/GII PCR Detected A C. difficile Tox B Gene NEGATIVE Ur Strep pneumoniae Ag Not Detected Microbiology Microbiology Results: Microbiology 11/28/24 15:41 Blood Culture - Preliminary Blood - Venous No growth after 48 hours. 11/28/24 15:41 Blood Culture - Preliminary Blood - Venous No growth after 48 hours. Assessment and Plan (1) Atrial flutter by electrocardiogram: Status: Acute Assessment and Plan: 79M PMH prostate CA, hx PE [2020] on apixaban, vertigo, GERD, HLD, MDD + psychosis admitted to geriatric psychiatry 11/14 for anxiety + panic attacks, undergoing ECT. Had endoscopy with removal of esophageal foreign body, balloon dilation of esophageal stricture, and biopsy on 11/26/24. ETHICS MANAGER called 11/28 for tachycardia in 150s; found to have atrial flutter with RVR; given IV metoprolol, digoxin + diltiazem and transferred to telemetry paroxysmal AF/RVR given total 0.125 mg digoxin IV x3, rate now controlled on diltiazem already on apixaban for hx of PE - cannot cardiovert given apixaban was held around time of recent EGD; cannot do DINESH-guided cardioversion given esophageal stricture - Cardiology consulted, TTE 11/29: - The left ventricular systolic function is normal. The calculated ejection fraction is 59% by biplane method. - No obvious valvular pathology seen on this study. - There is mild dilatation of the ascending aorta measuring 4.10 cm and mild dilatation of the aortic arch measuring 4.10 cm. acute hypoxic respiratory failure due to aspiration PNA - PCT high at 1.52 (trend), urinary antigens for Legionella and pneumococcus sent, flu/RSV/Covid-19 PCR negative, MRSA swab negative - 11/28- ceftriaxone + doxycycline - wean O2 as tolerated question of acute cholecystitis seen on CT of chest; US nondiagnostic; positive HIDA; metronidazole added 11/28 surgery appreciated, no need for intervention at this time prerenal ANDREA acute metabolic acidosis resolved after IV fluid hydration mild transaminitis likely due to PNA vs hcolecytstitis; improving subclinical hyperthyroidism repeat TFTs in 4-6 wk prediabetes no insulin needed VTE ppx apixaban GERD PPI MDD continue olanzapine, nortriptylline, trazodone prostatism finasteride dispo - eventual return to salty-psych reason for continued hospitalization:rvr, hypoxia Total time managing care of this patient today: 45 minutes. Quality Stroke Does the patient have a stroke diagnosis?: No VTE Prior VTE?: Yes VTE Risk Level:: Medical - moderate - high VTE Device Contraindication: Treatment Not Indicated VTE Drug Contraindication: N/A - Med Ordered
[2024-12-01] MEDS: Dextrose 5 % and 0.45 % NaCl 1,000 ML 50 ML IVCONT (17:07)
[2024-12-01] MEDS: cefTRIAXone sodium 1 GM VIAL IVPUSH (17:07)
--- NOTE | 2024-12-01 17:22 | MHC.SL.SWA ---
Speech Pathologist Impression: Risk of Aspiration Due to: Poor PO Intake Reduced Cognition Dysphasia Diet Status: Patient made NPO secondary to vomiting this a.m. Liquid Consistency and Strategies for Safe Swallow: Liquid Intake Recommendation: NPO Liquid Intake Strategies: Solid Food Consistency: Dietary Recommendations: NPO Additional Modifications to Solid Foods: Oral Medication Intake: Whole with Puree Please contact the pharmacy regarding appropriate crushable or liquid drug formulations that are available whenever modified delivery is recommended. Compensatory Strategies and Precautions to be Taken for Safe Swallow: Supervision While Eating and Drinking for Safe Swallow: Foods to Avoid: Swallowing Recommended Treatments: Compens. Strategy Educat. Recommendation for Speech: Comment: Patient seen this morning with nurse advising patient had vomiting incident, and likely aspirated emesis. Vomiting not associated with meal, patient reported that he had had water prior to vomiting. Patient seen briefly, offered sips of water by tsp, which patient tolerated well, had evident residual of emesis coating mouth. Patient produced timely swallow, no clinical signs of aspiration on thin liquid. Recommended hold on Breakfast MD ahmet considering NPO as mentioned to therapist at time of visit due to vomiting. Frequency/Duration: Date Range for Service Req: Timeline to reassess: Gum Rolling Machine Tender Clinican/Clinical Fellow: No Supervisory Statement: I have reviewed and agree with the student/clinical fellow's documentation: N/A Speech Language Pathologist: Layne Castañeda M.A., CCC-PART TIME
[2024-12-01] MEDS: OLANZapine 7.5 MG TABLET PO (21:06)
[2024-12-01] MEDS: Nortriptyline HCl 25 MG CAPSULE 75 MG PO (21:06)
[2024-12-02] VITALS (7 sets, daily range): BP systolic 103–123; BP diastolic 56–76; PULSE 93–110; RESP 16–19; TEMP 36.4–37.7; O2SAT 92–97
[2024-12-02] MEDS: metroNIDAZOLE/NS 500 MG/100 ML PIGGYBACK 100 MG IV ×3 (03:32→20:03)
[2024-12-02] MEDS: Doxycycline Hyclate 100 MG in 0.9 % Sodium Chloride 250 ML 166.67 MG IV ×2 (05:42→16:34)
[2024-12-02 06:50] LABS: Hematocrit 32.7 % (42.0-52.0); Hemoglobin 10.8 g/dl (14.0-18.0); Mean Platelet Volume 9.4 fL (9.4-12.4); Platelet Count 180 X10*3/uL (160-400); Red Blood Count 3.27 X10*6/uL (4.60-5.80); Red Cell Distribution Width 14.6 % (11.0-16.0); White Blood Count 8.8 X10*3/uL (4.8-10.8)
[2024-12-02 07:00] LABS: Anion Gap 10 (12-20); Blood Urea Nitrogen 30 mg/dL (9-16); Calcium 8.7 mg/dL (8.4-10.2); Carbon Dioxide 24 mmol/L (22-29); Chloride 115 mmol/L (96-108); Creatinine Clr Calc Pharmacy 85.7; Estimated Glomerular Filt Rate > 60; Glucose Random 133 mg/dL (60-115); Potassium 3.4 mmol/L (3.3-5.1); Sodium 146 mmol/L (135-145)
[2024-12-02] MEDS: Docusate Sodium 100 MG CAPSULE PO ×2 (09:08→20:03)
[2024-12-02] MEDS: polyethylene glycoL 3350 17 GM POWD.PACK PO (09:08)
[2024-12-02] MEDS: Ferrous Sulfate 324 MG TABLET.DR PO (09:09)
[2024-12-02] MEDS: Finasteride 5 MG TABLET PO (09:09)
[2024-12-02] MEDS: oxyBUTYnin chloride 5 MG TABLET PO (09:09)
[2024-12-02] MEDS: LORazepam 0.5 MG TABLET PO ×3 (09:09→20:03)
[2024-12-02] MEDS: Apixaban 5 MG TABLET PO ×2 (09:09→20:03)
[2024-12-02] MEDS: 0.9 % Sodium Chloride Flush 3 ML SYRINGE IVFLUSH ×2 (09:09→16:34)
[2024-12-02] MEDS: Cholecalciferol (Vitamin D3) 10 MCG TABLET PO (09:09)
--- NOTE | 2024-12-02 09:48 | HO.PM.IMPN ---
Subjective Subjective Date of Service: 12/02/24 Interval History: coughing Physical Exam Vital Signs: Vital Signs: Last Vital Signs Temp 98.7 F 12/02/24 07:02 Pulse 94 12/02/24 07:02 Resp 18 12/02/24 07:02 BP 122/66 12/02/24 07:02 Pulse Ox 94 12/02/24 07:02 O2 Del Method Nasal Cannula 12/02/24 07:02 O2 Flow Rate 5 12/02/24 07:02 BMI result Body Mass Index 27.5 Const: Other: Coughing, some shortness of breath General: no acute distress Resp: Other: Some shortness of breath Cardio: Rate: tachycardic GI: Palpation (GI): Soft to palpation, not firm, nontender and no guarding Objective Data Active Medications Acetaminophen (Acetaminophen 325 Mg Tablet) 650 mg PO Q6H PRN PRN Reason: Pain, Mild 1-3,fever,headache Apixaban (Apixaban 5 Mg Tablet) 5 mg PO BID [facility] Last Admin: 12/02/24 09:09 Dose: 5 mg Documented By: NAHEED Calcium Carbonate (Calcium Carbonate 750 Mg Tab.Chew) 750 mg PO Q4H PRN PRN Reason: Heartburn Ceftriaxone Sodium (Ceftriaxone Sodium 1 Gm Vial) 1 gm IVPUSH Q24H [facility] Last Admin: 12/01/24 17:07 Dose: 1 gm Documented By: MATTHEW Docusate Sodium (Docusate Sodium 100 Mg Capsule) 100 mg PO BID [facility] Last Admin: 12/02/24 09:08 Dose: 100 mg Documented By: NAHEED Ferrous Sulfate (Ferrous Sulfate 324 Mg Tablet.) 324 mg PO DAILY [facility] Last Admin: 12/02/24 09:09 Dose: 324 mg Documented By: NAHEED Finasteride (Finasteride 5 Mg Tablet) 5 mg PO DAILY [facility] Last Admin: 12/02/24 09:09 Dose: 5 mg Documented By: NAHEED Diltiazem HCl 125 mg/ Sodium (Chloride) 125 mls @ 0 mls/hr IVCONT .Q0M [facility]; Protocol Last Titration: 11/30/24 21:28 Dose: Infused Documented By: AJITH Metronidazole (Flagyl) 500 mg in 100 mls @ 100 mls/hr IV Q8H [facility] Last Infusion: 12/02/24 04:37 Dose: Infused Documented By: AJITH Doxycycline Hyclate 100 mg/ (Sodium Chloride) 250 mls @ 166.67 mls/hr IV Q12H [facility] Last Admin: 12/02/24 05:42 Dose: 166.67 mls/hr Documented By: AJITH Dextrose/Sodium Chloride (D51/2ns) 1,000 mls @ 50 mls/hr IVCONT .Q20H [facility] Last Admin: 12/01/24 17:07 Dose: 50 mls/hr Documented By: MATTHEW Lorazepam (Lorazepam 0.5 Mg Tablet) 0.5 mg PO TID [facility] Last Admin: 12/02/24 09:09 Dose: 0.5 mg Documented By: NAHEED Lorazepam (Lorazepam 2 Mg/Ml Vial) 0.5 mg IVPUSH Q12H PRN PRN Reason: Anxiety Last Admin: 11/30/24 14:06 Dose: 0.5 mg Documented By: BECKA Magnesium Hydroxide (Milk Of Magnesia 30 Ml Oral.Susp) 30 ml PO DAILY PRN PRN Reason: Constipation Melatonin (Melatonin 3 Mg Tablet) 6 mg PO BEDTIME [facility] Last Admin: 12/01/24 21:15 Dose: Not Given Documented By: AJITH Non-Admin Reason: NPO Metoprolol Tartrate (Metoprolol Tartrate 5 Mg/5 Ml Vial) 5 mg IVPUSH Q6H [facility]; Protocol PRN Reason: hr>120 Nortriptyline HCl (Nortriptyline Hcl 25 Mg Capsule) 75 mg PO BEDTIME [facility] Last Admin: 12/01/24 21:06 Dose: 75 mg Documented By: AJITH Olanzapine (Olanzapine 7.5 Mg Tablet) 7.5 mg PO BEDTIME [facility] Last Admin: 12/01/24 21:06 Dose: 7.5 mg Documented By: AJITH Olanzapine (Olanzapine 5 Mg Tablet) 5 mg PO BID PRN PRN Reason: Anxiety Omeprazole (Omeprazole 40 Mg Capsule.Dr) 40 mg PO DAILY@0630 [facility] Last Admin: 12/02/24 05:12 Dose: Not Given Documented By: AJITH Non-Admin Reason: NPO Ondansetron HCl (Ondansetron Odt 4 Mg Tab.Rapdis) 4 mg TRANSLINGU Q12H PRN PRN Reason: Nausea And Vomiting Last Admin: 11/29/24 21:43 Dose: 4 mg Documented By: LEWIS Oxybutynin Chloride (Oxybutynin Chloride 5 Mg Tablet) 5 mg PO DAILY [facility] Last Admin: 12/02/24 09:09 Dose: 5 mg Documented By: NAHEED Polyethylene Glycol (Polyethylene Glycol 3350 17 Gm Powd.Pack) 17 gm PO DAILY [facility] Last Admin: 12/02/24 09:08 Dose: 17 gm Documented By: NAHEED Senna (Sennosides 8.6 Mg Tablet) 8.6 mg PO BEDTIME PRN PRN Reason: Constipation Sodium Chloride (0.9 % Sodium Chloride Flush 3 Ml Syringe) 3 ml IVFLUSH QSHIFT [facility] Last Admin: 12/02/24 09:09 Dose: 3 ml Documented By: NAHEED Trazodone HCl (Trazodone Hcl 50 Mg Tablet) 50 mg PO BEDTIME MRX1 PRN PRN Reason: Sleep Last Admin: 11/29/24 21:45 Dose: 50 mg Documented By: LEWIS Vitamin D (Cholecalciferol (Vitamin D3) 10 Mcg Tablet) 10 mcg PO DAILY [facility] Last Admin: 12/02/24 09:09 Dose: 10 mcg Documented By: NAHEED Labs 12/02/24 05:56 12/02/24 05:56 Labs: Laboratory Results - last 24 hr 11/30/24 12/02/24 14:38 05:56 MCV 100.0 H MCH 33.0 MCHC 33.0 RDW 14.6 Plt Count 180 MPV 9.4 Absolute Nucleated RBC 0.000 Nucleated RBC % (auto) 0.0 Anion Gap 10 L Estim Creat Clear Calc 85.7 Estimated GFR > 60 Random Glucose 133 H Calcium 8.7 Stl C. cayetanensis PCR Not Detected Stool Rotavirus A PCR Not Detected Stl Adenov F 40/41 PCR Not Detected Stool Astrovirus (PCR) Not Detected Stool Campylobacter PCR Not Detected Stool Cryptosporidium PCR Not Detected Stl Sh Tox Pr E STEC PCR Not Detected Stool E coli O157 PCR Not applicable Stl Enterotoxigenic E PCR Not Detected Stool EPEC (PCR) Not Detected Stool EAEC (PCR) Not Detected Stl E. histolytica PCR Not Detected Stool Giardia Lamblia PCR Not Detected Stl P. shigelloides PCR Not Detected Stool Salmonella PCR Not Detected Stool Sapovirus (PCR) Not Detected Stl Shigella/EIEC PCR Not Detected St Y.enterocolitica PCR Not Detected Stool Vibrio (PCR) Not Detected Stl Vibrio cholerae PCR Not Detected Stl Norovirus GI/GII PCR Detected A Assessment and Plan (1) Atrial flutter by electrocardiogram: Status: Acute Assessment and Plan: 79M PMH prostate CA, hx PE [2020] on apixaban, vertigo, GERD, HLD, MDD + psychosis admitted to geriatric psychiatry 11/14 for anxiety + panic attacks, undergoing ECT. Had endoscopy with removal of esophageal foreign body, balloon dilation of esophageal stricture, and biopsy on 11/26/24. FLIGHT DIRECTOR called 11/28 for tachycardia in 150s; found to have atrial flutter with RVR; given IV metoprolol, digoxin + diltiazem and transferred to telemetry paroxysmal AF/RVR given total 0.125 mg digoxin IV x3, rate now controlled on diltiazem already on apixaban for hx of PE - cannot cardiovert given apixaban was held around time of recent EGD; cannot do DINESH-guided cardioversion given esophageal stricture - Cardiology consulted, TTE 11/29: - The left ventricular systolic function is normal. The calculated ejection fraction is 59% by biplane method. - No obvious valvular pathology seen on this study. - There is mild dilatation of the ascending aorta measuring 4.10 cm and mild dilatation of the aortic arch measuring 4.10 cm. acute hypoxic respiratory failure due to aspiration PNA - 11/28- ceftriaxone + doxycycline - wean O2 as tolerated dysphagia, esophogeal stricture s/p ballooning, ppi, still unable to tolerate pureed, NPO, ivf, gi follow up question of acute cholecystitis seen on CT of chest; US nondiagnostic; positive HIDA; metronidazole added 11/28 surgery appreciated, no need for intervention at this time prerenal ANDREA acute metabolic acidosis resolved after IV fluid hydration mild transaminitis likely due to PNA vs hcolecytstitis; improving subclinical hyperthyroidism repeat TFTs in 4-6 wk prediabetes no insulin needed VTE ppx apixaban GERD PPI MDD continue olanzapine, nortriptylline, trazodone prostatism finasteride dispo - eventual return to salty-psych reason for continued hospitalization:rvr, hypoxia, npo Total time managing care of this patient today: 45 minutes. Quality Stroke Does the patient have a stroke diagnosis?: No VTE Prior VTE?: Yes VTE Risk Level:: Medical - moderate - high VTE Device Contraindication: Treatment Not Indicated VTE Drug Contraindication: N/A - Med Ordered
[2024-12-02] MEDS: Pantoprazole Sodium 40 MG/10 ML VIAL IVPUSH (11:15)
[2024-12-02] MEDS: dilTIAZem HCL 125 MG in 0.9 % Sodium Chloride 100 ML 10 MG IVCONT ×2 (11:35→20:04)
[2024-12-02] MEDS: Dextrose 5 % and 0.45 % NaCl 1,000 ML 50 ML IVCONT (12:51)
--- NOTE | 2024-12-02 16:27 | MHC.CM.PN ---
EMR REVIEWED, PT REMAINS HYPOXIC AND NPO, PLAN CONT'S TO BE TO RETURN TO [facility] ONCE MEDICALLY CLEARED, CM WILL CON TO FOLLOW DC NEEDS.
[2024-12-02 16:28] LABS: Legionella Ag Urine Not Detected (Not Detected)
[2024-12-02] MEDS: cefTRIAXone sodium 1 GM VIAL IVPUSH (16:33)
[2024-12-02] MEDS: OLANZapine 7.5 MG TABLET PO (20:03)
[2024-12-02] MEDS: Melatonin 3 MG TABLET 6 MG PO (20:03)
[2024-12-02] MEDS: Nortriptyline HCl 25 MG CAPSULE 75 MG PO (20:03)
[2024-12-03 02:51] VITALS: BP 167/71; PULSE 96; RESP 18; TEMP 36.7; O2SAT 95
[2024-12-03] MEDS: metroNIDAZOLE/NS 500 MG/100 ML PIGGYBACK 100 MG IV ×3 (04:48→19:56)
[2024-12-03] MEDS: Omeprazole 40 MG CAPSULE.DR PO (06:14)
[2024-12-03] MEDS: Doxycycline Hyclate 100 MG in 0.9 % Sodium Chloride 250 ML 166.67 MG IV ×2 (06:14→17:42)
[2024-12-03] MEDS: Pantoprazole Sodium 40 MG/10 ML VIAL IVPUSH (06:14)
[2024-12-03 07:49] VITALS: BP 105/68; PULSE 97; RESP 20; TEMP 36.8; O2SAT 93
[2024-12-03] MEDS: dilTIAZem HCL 125 MG in 0.9 % Sodium Chloride 100 ML 10 MG IVCONT ×2 (08:47→23:00)
[2024-12-03] MEDS: Apixaban 5 MG TABLET PO ×2 (08:49→19:54)
[2024-12-03] MEDS: Docusate Sodium 100 MG CAPSULE PO ×2 (08:50→19:55)
[2024-12-03] MEDS: Ferrous Sulfate 324 MG TABLET.DR PO (08:51)
[2024-12-03] MEDS: Cholecalciferol (Vitamin D3) 10 MCG TABLET PO (08:51)
[2024-12-03] MEDS: Finasteride 5 MG TABLET PO (08:51)
[2024-12-03] MEDS: oxyBUTYnin chloride 5 MG TABLET PO (08:51)
[2024-12-03] MEDS: LORazepam 0.5 MG TABLET PO ×3 (08:51→19:55)
[2024-12-03] MEDS: polyethylene glycoL 3350 17 GM POWD.PACK PO (08:51)
[2024-12-03] MEDS: 0.9 % Sodium Chloride Flush 3 ML SYRINGE IVFLUSH ×2 (08:51→15:40)
--- NOTE | 2024-12-03 09:35 | P.PNIM_ITS ---
Subjective Subjective Date of Service: 12/03/24 Interval History: coughing Physical Exam 2 Vital Signs: Vital Signs: Last Vital Signs Temp 98.3 F 12/03/24 07:49 Pulse 97 12/03/24 07:49 Resp 20 12/03/24 07:49 BP 105/68 12/03/24 07:49 Pulse Ox 93 12/03/24 07:49 O2 Del Method Oxymask 12/03/24 07:49 O2 Flow Rate 5 12/03/24 02:51 BMI result Body Mass Index 27.5 Const: Other: Coughing, some shortness of breath General: no acute distress Resp: Other: Some shortness of breath Cardio: Rate: tachycardic GI: Palpation (GI): Soft to palpation, not firm, nontender and no guarding Objective Data Active Medications Acetaminophen (Acetaminophen 325 Mg Tablet) 650 mg PO Q6H PRN PRN Reason: Pain, Mild 1-3,fever,headache Apixaban (Apixaban 5 Mg Tablet) 5 mg PO BID [facility] Last Admin: 12/03/24 08:49 Dose: 5 mg Documented By: GABY Calcium Carbonate (Calcium Carbonate 750 Mg Tab.Chew) 750 mg PO Q4H PRN PRN Reason: Heartburn Ceftriaxone Sodium (Ceftriaxone Sodium 1 Gm Vial) 1 gm IVPUSH Q24H [facility] Last Admin: 12/02/24 16:33 Dose: 1 gm Documented By: NAHEED Docusate Sodium (Docusate Sodium 100 Mg Capsule) 100 mg PO BID [facility] Last Admin: 12/03/24 08:50 Dose: 100 mg Documented By: GABY Ferrous Sulfate (Ferrous Sulfate 324 Mg Tablet.Dr) 324 mg PO DAILY [facility] Last Admin: 12/03/24 08:51 Dose: 324 mg Documented By: GABY Finasteride (Finasteride 5 Mg Tablet) 5 mg PO DAILY [facility] Last Admin: 12/03/24 08:51 Dose: 5 mg Documented By: GABY Diltiazem HCl 125 mg/ Sodium (Chloride) 125 mls @ 0 mls/hr IVCONT .Q0M [facility]; Protocol Last Titration: 12/03/24 09:03 Dose: 5 mg/hr, 5 mls/hr Documented By: GABY Metronidazole (Flagyl) 500 mg in 100 mls @ 100 mls/hr IV Q8H [facility] Last Infusion: 12/03/24 05:48 Dose: Infused Documented By: JOHANA Doxycycline Hyclate 100 mg/ (Sodium Chloride) 250 mls @ 166.67 mls/hr IV Q12H [facility] Last Infusion: 12/03/24 08:00 Dose: Infused Documented By: GABY Dextrose/Sodium Chloride (D51/2ns) 1,000 mls @ 50 mls/hr IVCONT .Q20H [facility] Last Infusion: 12/03/24 08:46 Dose: 50 mls/hr Documented By: GABY Lorazepam (Lorazepam 0.5 Mg Tablet) 0.5 mg PO TID [facility] Last Admin: 12/03/24 08:51 Dose: 0.5 mg Documented By: GABY Lorazepam (Lorazepam 2 Mg/Ml Vial) 0.5 mg IVPUSH Q12H PRN PRN Reason: Anxiety Last Admin: 11/30/24 14:06 Dose: 0.5 mg Documented By: BECKA Magnesium Hydroxide (Milk Of Magnesia 30 Ml Oral.Susp) 30 ml PO DAILY PRN PRN Reason: Constipation Melatonin (Melatonin 3 Mg Tablet) 6 mg PO BEDTIME [facility] Last Admin: 12/02/24 20:03 Dose: 6 mg Documented By: JOHANA Metoprolol Tartrate (Metoprolol Tartrate 5 Mg/5 Ml Vial) 5 mg IVPUSH Q6H PRN; Protocol PRN Reason: hr>120 Nortriptyline HCl (Nortriptyline Hcl 25 Mg Capsule) 75 mg PO BEDTIME [facility] Last Admin: 12/02/24 20:03 Dose: 75 mg Documented By: JOHANA Olanzapine (Olanzapine 7.5 Mg Tablet) 7.5 mg PO BEDTIME [facility] Last Admin: 12/02/24 20:03 Dose: 7.5 mg Documented By: JOHANA Olanzapine (Olanzapine 5 Mg Tablet) 5 mg PO BID PRN PRN Reason: Anxiety Omeprazole (Omeprazole 40 Mg Capsule.) 40 mg PO DAILY@0630 [facility] Last Admin: 12/03/24 06:14 Dose: 40 mg Documented By: JOHANA Ondansetron HCl (Ondansetron Odt 4 Mg Tab.Rapdis) 4 mg TRANSLINGU Q12H PRN PRN Reason: Nausea And Vomiting Last Admin: 11/29/24 21:43 Dose: 4 mg Documented By: LEWIS Oxybutynin Chloride (Oxybutynin Chloride 5 Mg Tablet) 5 mg PO DAILY [facility] Last Admin: 12/03/24 08:51 Dose: 5 mg Documented By: GABY Pantoprazole Sodium (Pantoprazole Sodium 40 Mg/10 Ml Vial) 40 mg IVPUSH DAILY@0630 [facility] Last Admin: 12/03/24 06:14 Dose: 40 mg Documented By: JOHANA Polyethylene Glycol (Polyethylene Glycol 3350 17 Gm Powd.Pack) 17 gm PO DAILY [facility] Last Admin: 12/03/24 08:51 Dose: 17 gm Documented By: GABY Senna (Sennosides 8.6 Mg Tablet) 8.6 mg PO BEDTIME PRN PRN Reason: Constipation Sodium Chloride (0.9 % Sodium Chloride Flush 3 Ml Syringe) 3 ml IVFLUSH QSHIFT [facility] Last Admin: 12/03/24 08:51 Dose: 3 ml Documented By: GABY Trazodone HCl (Trazodone Hcl 50 Mg Tablet) 50 mg PO BEDTIME MRX1 PRN PRN Reason: Sleep Last Admin: 11/29/24 21:45 Dose: 50 mg Documented By: LEWIS Vitamin D (Cholecalciferol (Vitamin D3) 10 Mcg Tablet) 10 mcg PO DAILY [facility] Last Admin: 12/03/24 08:51 Dose: 10 mcg Documented By: GABY Labs 12/02/24 05:56 12/02/24 05:56 Labs: Laboratory Results - last 24 hr 11/28/24 18:00 Ur L.pneumophila Ag Not Detected Assessment and Plan (1) Atrial flutter by electrocardiogram: Status: Acute Assessment and Plan: 79M PMH prostate CA, hx PE [2020] on apixaban, vertigo, GERD, HLD, MDD + psychosis admitted to geriatric psychiatry 11/14 for anxiety + panic attacks, undergoing ECT. Had endoscopy with removal of esophageal foreign body, balloon dilation of esophageal stricture, and biopsy on 11/26/24. RPG DEVELOPER called 11/28 for tachycardia in 150s; found to have atrial flutter with RVR; given IV metoprolol, digoxin + diltiazem and transferred to telemetry paroxysmal AF/RVR given total 0.125 mg digoxin IV x3, rate now controlled on diltiazem already on apixaban for hx of PE - cannot cardiovert given apixaban was held around time of recent EGD; cannot do DINESH-guided cardioversion given esophageal stricture - Cardiology consulted, TTE 11/29: - The left ventricular systolic function is normal. The calculated ejection fraction is 59% by biplane method. - No obvious valvular pathology seen on this study. - There is mild dilatation of the ascending aorta measuring 4.10 cm and mild dilatation of the aortic arch measuring 4.10 cm. acute hypoxic respiratory failure due to aspiration PNA - 11/28- ceftriaxone + doxycycline - wean O2 as tolerated dysphagia, esophogeal stricture, type IV paraesophageal hernia s/p ballooning, ppi, still unable to tolerate pureed, NPO, ivf, likely will need either hernia repair or gtube, surgery following question of acute cholecystitis seen on CT of chest; US nondiagnostic; positive HIDA; metronidazole added 11/28 surgery appreciated, no need for intervention at this time prerenal ANDREA acute metabolic acidosis resolved after IV fluid hydration mild transaminitis likely due to PNA vs hcolecytstitis; improving subclinical hyperthyroidism repeat TFTs in 4-6 wk prediabetes no insulin needed VTE ppx apixaban GERD PPI MDD continue olanzapine, nortriptylline, trazodone prostatism finasteride dispo - eventual return to salty-psych reason for continued hospitalization:hypoxia, npo Total time managing care of this patient today: 45 minutes. Quality Stroke Does the patient have a stroke diagnosis?: No VTE Prior VTE?: Yes VTE Risk Level:: Medical - moderate - high VTE Device Contraindication: Treatment Not Indicated VTE Drug Contraindication: N/A - Med Ordered
[2024-12-03 12:00] VITALS: BP 115/70; PULSE 92; RESP 20; TEMP 37.2; O2SAT 92
[2024-12-03] MEDS: Dextrose 5 % and 0.45 % NaCl 1,000 ML 50 ML IVCONT (12:09)
[2024-12-03] MEDS: cefTRIAXone sodium 1 GM VIAL IVPUSH (15:40)
[2024-12-03 16:00] VITALS: BP 113/65; PULSE 94; RESP 20; TEMP 37.4; O2SAT 92
[2024-12-03 16:08] LABS: Hematocrit 33.3 % (42.0-52.0); Hemoglobin 11.4 g/dl (14.0-18.0); Mean Corpuscular HGB Conc 34.2 g/dl (31.0-36.0); Mean Corpuscular Hemoglobin 33.7 pg (27.0-33.0); Mean Corpuscular Volume 98.5 fL (80.0-98.0); Mean Platelet Volume 9.5 fL (9.4-12.4); Platelet Count 204 X10*3/uL (160-400); Red Blood Count 3.38 X10*6/uL (4.60-5.80); Red Cell Distribution Width 14.9 % (11.0-16.0); White Blood Count 7.1 X10*3/uL (4.8-10.8)
[2024-12-03 16:14] LABS: Anion Gap 13 (12-20); Blood Urea Nitrogen 27 mg/dL (9-16); Calcium 8.2 mg/dL (8.4-10.2); Carbon Dioxide 20 mmol/L (22-29); Chloride 116 mmol/L (96-108); Creatinine Clr Calc Pharmacy 86.9; Estimated Glomerular Filt Rate > 60; Glucose Random 117 mg/dL (60-115); Sodium 145 mmol/L (135-145)
[2024-12-03 18:33] LABS: Nortriptyline 88 mcg/L (50-150)
[2024-12-03] MEDS: Nortriptyline HCl 25 MG CAPSULE 75 MG PO (19:54)
[2024-12-03] MEDS: Melatonin 3 MG TABLET 6 MG PO (19:55)
[2024-12-03] MEDS: OLANZapine 7.5 MG TABLET PO (19:55)
[2024-12-03 20:00] VITALS: BP 109/62; PULSE 93; RESP 20; TEMP 36.8; O2SAT 92
[2024-12-04] VITALS (9 sets, daily range): BP systolic 109–132; BP diastolic 67–81; PULSE 82–113; RESP 18–22; TEMP 36.6–37.2; O2SAT 86–98
[2024-12-04] MEDS: metroNIDAZOLE/NS 500 MG/100 ML PIGGYBACK 100 MG IV ×3 (03:27→20:39)
[2024-12-04] MEDS: Doxycycline Hyclate 100 MG in 0.9 % Sodium Chloride 250 ML 166.67 MG IV ×2 (05:33→18:32)
[2024-12-04] MEDS: Pantoprazole Sodium 40 MG/10 ML VIAL IVPUSH (05:33)
[2024-12-04] MEDS: Omeprazole 40 MG CAPSULE.DR PO (05:35)
[2024-12-04 06:50] LABS: Anion Gap 12 (12-20); Blood Urea Nitrogen 27 mg/dL (9-16); Calcium 8.1 mg/dL (8.4-10.2); Carbon Dioxide 19 mmol/L (22-29); Chloride 117 mmol/L (96-108); Creatinine Clr Calc Pharmacy 86.9; Estimated Glomerular Filt Rate > 60; Glucose Random 109 mg/dL (60-115); Potassium 3.6 mmol/L (3.3-5.1); Sodium 144 mmol/L (135-145)
[2024-12-04] MEDS: polyethylene glycoL 3350 17 GM POWD.PACK PO (08:36)
[2024-12-04] MEDS: 0.9 % Sodium Chloride Flush 3 ML SYRINGE IVFLUSH ×2 (08:36→15:49)
[2024-12-04] MEDS: Cholecalciferol (Vitamin D3) 10 MCG TABLET PO (08:37)
[2024-12-04] MEDS: Ferrous Sulfate 324 MG TABLET.DR PO (08:37)
[2024-12-04] MEDS: Finasteride 5 MG TABLET PO (08:37)
[2024-12-04] MEDS: oxyBUTYnin chloride 5 MG TABLET PO (08:37)
[2024-12-04] MEDS: Docusate Sodium 100 MG CAPSULE PO (08:37)
[2024-12-04] MEDS: LORazepam 0.5 MG TABLET PO ×3 (08:37→20:40)
[2024-12-04] MEDS: Apixaban 5 MG TABLET PO ×2 (08:37→20:40)
[2024-12-04 08:38] LABS: Hematocrit 32.6 % (42.0-52.0); Mean Corpuscular HGB Conc 33.7 g/dl (31.0-36.0); Mean Corpuscular Volume 100.6 fL (80.0-98.0); Platelet Count 172 X10*3/uL (160-400); Red Blood Count 3.24 X10*6/uL (4.60-5.80); White Blood Count 8.3 X10*3/uL (4.8-10.8)
--- NOTE | 2024-12-04 09:54 | HO.PM.IMPN ---
Subjective Subjective Date of Service: 12/04/24 Interval History: coughing Physical Exam Vital Signs: Vital Signs: Last Vital Signs Temp 98.9 F 12/04/24 07:44 Pulse 87 12/04/24 07:44 Resp 20 12/04/24 07:44 BP 109/67 12/04/24 07:44 Pulse Ox 93 12/04/24 07:44 O2 Del Method Oxymask 12/04/24 07:44 O2 Flow Rate 9 12/04/24 07:44 BMI result Body Mass Index 27.5 Const: Other: Coughing, some shortness of breath General: no acute distress Resp: Other: Some shortness of breath Cardio: Rate: tachycardic GI: Palpation (GI): Soft to palpation, not firm, nontender and no guarding Objective Data Active Medications Acetaminophen (Acetaminophen 325 Mg Tablet) 650 mg PO Q6H PRN PRN Reason: Pain, Mild 1-3,fever,headache Apixaban (Apixaban 5 Mg Tablet) 5 mg PO BID [facility] [place] Last Admin: 12/04/24 08:37 Dose: 5 mg Documented By: GABY Calcium Carbonate (Calcium Carbonate 750 Mg Tab.Chew) 750 mg PO Q4H PRN PRN Reason: Heartburn Ceftriaxone Sodium (Ceftriaxone Sodium 1 Gm Vial) 1 gm IVPUSH Q24H [facility] [place] Last Admin: 12/03/24 15:40 Dose: 1 gm Documented By: GABY Docusate Sodium (Docusate Sodium 100 Mg Capsule) 100 mg PO BID [facility] [place] Last Admin: 12/04/24 08:37 Dose: 100 mg Documented By: GABY Ferrous Sulfate (Ferrous Sulfate 324 Mg Tablet.Dr) 324 mg PO DAILY [facility] [place] Last Admin: 12/04/24 08:37 Dose: 324 mg Documented By: GABY Finasteride (Finasteride 5 Mg Tablet) 5 mg PO DAILY [facility] [place] Last Admin: 12/04/24 08:37 Dose: 5 mg Documented By: GABY Diltiazem HCl 125 mg/ Sodium (Chloride) 125 mls @ 0 mls/hr IVCONT .Q0M [facility] [place]; Protocol Last Titration: 12/04/24 08:30 Dose: 0 mg/hr, 0 mls/hr Documented By: GABY Metronidazole (Flagyl) 500 mg in 100 mls @ 100 mls/hr IV Q8H [facility] [place] Last Infusion: 12/04/24 04:27 Dose: Infused Documented By: JOHANA Doxycycline Hyclate 100 mg/ (Sodium Chloride) 250 mls @ 166.67 mls/hr IV Q12H [facility] [place] Last Infusion: 12/04/24 07:38 Dose: Infused Documented By: GABY Dextrose/Sodium Chloride (D51/2ns) 1,000 mls @ 50 mls/hr IVCONT .Q20H [facility] [place] Last Infusion: 12/04/24 07:38 Dose: 50 mls/hr Documented By: GABY Lorazepam (Lorazepam 0.5 Mg Tablet) 0.5 mg PO TID [facility] [place] Last Admin: 12/04/24 08:37 Dose: 0.5 mg Documented By: GABY Lorazepam (Lorazepam 2 Mg/Ml Vial) 0.5 mg IVPUSH Q12H PRN PRN Reason: Anxiety Last Admin: 11/30/24 14:06 Dose: 0.5 mg Documented By: BECKA Magnesium Hydroxide (Milk Of Magnesia 30 Ml Oral.Susp) 30 ml PO DAILY PRN PRN Reason: Constipation Melatonin (Melatonin 3 Mg Tablet) 6 mg PO BEDTIME [facility] [place] Last Admin: 12/03/24 19:55 Dose: 6 mg Documented By: JOHANA Metoprolol Tartrate (Metoprolol Tartrate 5 Mg/5 Ml Vial) 5 mg IVPUSH Q6H PRN; Protocol PRN Reason: hr>120 Nortriptyline HCl (Nortriptyline Hcl 25 Mg Capsule) 75 mg PO BEDTIME [facility] [place] Last Admin: 12/03/24 19:54 Dose: 75 mg Documented By: JOHANA Olanzapine (Olanzapine 7.5 Mg Tablet) 7.5 mg PO BEDTIME [facility] [place] Last Admin: 12/03/24 19:55 Dose: 7.5 mg Documented By: JOHANA Olanzapine (Olanzapine 5 Mg Tablet) 5 mg PO BID PRN PRN Reason: Anxiety Omeprazole (Omeprazole 40 Mg Capsule.) 40 mg PO DAILY@0630 [facility] [place] Last Admin: 12/04/24 05:35 Dose: 40 mg Documented By: JOHANA Ondansetron HCl (Ondansetron Odt 4 Mg Tab.Rapdis) 4 mg TRANSLINGU Q12H PRN PRN Reason: Nausea And Vomiting Last Admin: 11/29/24 21:43 Dose: 4 mg Documented By: LEWIS Oxybutynin Chloride (Oxybutynin Chloride 5 Mg Tablet) 5 mg PO DAILY [facility] [place] Last Admin: 12/04/24 08:37 Dose: 5 mg Documented By: GABY Pantoprazole Sodium (Pantoprazole Sodium 40 Mg/10 Ml Vial) 40 mg IVPUSH DAILY@0630 [facility] [place] Last Admin: 12/04/24 05:33 Dose: 40 mg Documented By: JOHANA Polyethylene Glycol (Polyethylene Glycol 3350 17 Gm Powd.Pack) 17 gm PO DAILY [facility] [place] Last Admin: 12/04/24 08:36 Dose: 17 gm Documented By: GABY Senna (Sennosides 8.6 Mg Tablet) 8.6 mg PO BEDTIME PRN PRN Reason: Constipation Sodium Chloride (0.9 % Sodium Chloride Flush 3 Ml Syringe) 3 ml IVFLUSH QSHIFT [facility] [place] Last Admin: 12/04/24 08:36 Dose: 3 ml Documented By: GABY Trazodone HCl (Trazodone Hcl 50 Mg Tablet) 50 mg PO BEDTIME MRX1 PRN PRN Reason: Sleep Last Admin: 11/29/24 21:45 Dose: 50 mg Documented By: LEWIS Vitamin D (Cholecalciferol (Vitamin D3) 10 Mcg Tablet) 10 mcg PO DAILY [facility] [place] Last Admin: 12/04/24 08:37 Dose: 10 mcg Documented By: GABY Labs 12/04/24 08:11 12/04/24 06:01 Labs: Laboratory Results - last 24 hr 11/30/24 12/03/24 12/04/24 08:09 15:32 06:01 MCV 98.5 H MCH 33.7 H MCHC 34.2 RDW 14.9 Plt Count 204 MPV 9.5 Absolute Nucleated RBC 0.000 Nucleated RBC % (auto) 0.0 Anion Gap 13 12 Estim Creat Clear Calc 86.9 86.9 Estimated GFR > 60 > 60 Random Glucose 117 H 109 Calcium 8.2 L 8.1 L Nortriptyline 88 12/04/24 08:11 MCV 100.6 H MCH 34.0 H MCHC 33.7 RDW 15.0 Plt Count 172 MPV 10.0 Absolute Nucleated RBC 0.000 Nucleated RBC % (auto) 0.0 Anion Gap Estim Creat Clear Calc Estimated GFR Random Glucose Calcium Nortriptyline Microbiology Microbiology Results: Microbiology 11/28/24 15:41 Blood Culture - Final Blood - Venous No growth after 5 days. 11/28/24 15:41 Blood Culture - Final Blood - Venous No growth after 5 days. Assessment and Plan (1) Atrial flutter by electrocardiogram: Status: Acute Assessment and Plan: 79M PMH prostate CA, hx PE [2020] on apixaban, vertigo, GERD, HLD, MDD + psychosis admitted to geriatric psychiatry 11/14 for anxiety + panic attacks, undergoing ECT. Had endoscopy with removal of esophageal foreign body, balloon dilation of esophageal stricture, and biopsy on 11/26/24. SACK FILLER called 11/28 for tachycardia in 150s; found to have atrial flutter with RVR; given IV metoprolol, digoxin + diltiazem and transferred to telemetry paroxysmal AF/RVR was rate controlled with dilt drip, now in NSR acute hypoxic respiratory failure due to aspiration PNA - 11/28- ceftriaxone + doxycycline - wean O2 as tolerated dysphagia, esophogeal stricture, type IV paraesophageal hernia s/p ballooning, ppi, still unable to tolerate pureed, NPO, ivf, likely will need either hernia repair or gtube, surgery following potentially OR on 12/05/24 question of acute cholecystitis seen on CT of chest; US nondiagnostic; positive HIDA; metronidazole added 11/28 surgery appreciated, no need for intervention at this time prerenal ANDREA acute metabolic acidosis resolved after IV fluid hydration mild transaminitis likely due to PNA vs cholecytstitis; improving subclinical hyperthyroidism repeat TFTs in 4-6 wk prediabetes no insulin needed VTE ppx apixaban GERD PPI MDD continue olanzapine, nortriptylline, trazodone prostatism finasteride dispo - eventual return to salty-psych reason for continued hospitalization:hypoxia, npo Total time managing care of this patient today: 45 minutes. Quality Stroke Does the patient have a stroke diagnosis?: No VTE Prior VTE?: Yes VTE Risk Level:: Medical - moderate - high VTE Device Contraindication: Treatment Not Indicated VTE Drug Contraindication: N/A - Med Ordered
[2024-12-04] MEDS: cefTRIAXone sodium 1 GM VIAL IVPUSH (15:49)
[2024-12-04] MEDS: Dextrose 5 % and 0.45 % NaCl 1,000 ML 50 ML IVCONT (18:32)
[2024-12-04] MEDS: Melatonin 3 MG TABLET 6 MG PO (20:40)
[2024-12-04] MEDS: OLANZapine 7.5 MG TABLET PO (20:40)
[2024-12-04] MEDS: Nortriptyline HCl 25 MG CAPSULE 75 MG PO (20:40)
[2024-12-05] VITALS (7 sets, daily range): BP systolic 97–133; BP diastolic 65–82; PULSE 82–102; RESP 16–32; TEMP 36.4–36.9; O2SAT 93–96
[2024-12-05] MEDS: 0.9 % Sodium Chloride Flush 3 ML SYRINGE IVFLUSH ×4 (00:14→20:23)
[2024-12-05] MEDS: metroNIDAZOLE/NS 500 MG/100 ML PIGGYBACK 100 MG IV ×3 (05:01→20:18)
[2024-12-05] MEDS: Doxycycline Hyclate 100 MG in 0.9 % Sodium Chloride 250 ML 166.67 MG IV ×2 (06:35→17:31)
[2024-12-05 07:23] LABS: Hematocrit 33.5 % (42.0-52.0); Hemoglobin 11.1 g/dl (14.0-18.0); Mean Corpuscular HGB Conc 33.1 g/dl (31.0-36.0); Mean Corpuscular Hemoglobin 33.5 pg (27.0-33.0); Mean Corpuscular Volume 101.2 fL (80.0-98.0); Mean Platelet Volume 9.3 fL (9.4-12.4); Platelet Count 206 X10*3/uL (160-400); Red Blood Count 3.31 X10*6/uL (4.60-5.80); Red Cell Distribution Width 14.9 % (11.0-16.0); White Blood Count 7.8 X10*3/uL (4.8-10.8)
[2024-12-05 07:37] LABS: Anion Gap 11 (12-20); Blood Urea Nitrogen 22 mg/dL (9-16); Calcium 7.6 mg/dL (8.4-10.2); Carbon Dioxide 21 mmol/L (22-29); Chloride 116 mmol/L (96-108); Creatinine Clr Calc Pharmacy 88.1; Estimated Glomerular Filt Rate > 60; Glucose Random 122 mg/dL (60-115); Potassium 3.3 mmol/L (3.3-5.1); Sodium 145 mmol/L (135-145)
[2024-12-05] MEDS: Cholecalciferol (Vitamin D3) 10 MCG TABLET PO (07:55)
[2024-12-05] MEDS: polyethylene glycoL 3350 17 GM POWD.PACK PO (07:55)
[2024-12-05] MEDS: oxyBUTYnin chloride 5 MG TABLET PO (07:55)
[2024-12-05] MEDS: Apixaban 5 MG TABLET PO ×2 (07:55→20:17)
[2024-12-05] MEDS: Ferrous Sulfate 324 MG TABLET.DR PO (07:55)
[2024-12-05] MEDS: Docusate Sodium 100 MG CAPSULE PO (07:55)
[2024-12-05] MEDS: Finasteride 5 MG TABLET PO (07:55)
[2024-12-05] MEDS: Pantoprazole Sodium 40 MG/10 ML VIAL IVPUSH (08:22)
--- NOTE | 2024-12-05 09:32 | P.PNIM_ITS ---
Subjective Subjective Date of Service: 12/05/24 Interval History: no complaints Physical Exam 2 Vital Signs: Vital Signs: Last Vital Signs Temp 98.4 F 12/05/24 08:00 Pulse 88 12/05/24 08:00 Resp 17 12/05/24 08:00 BP 107/66 12/05/24 08:00 Pulse Ox 94 12/05/24 08:00 O2 Del Method Oxymask 12/05/24 08:00 O2 Flow Rate 4.5 12/05/24 08:00 BMI result Body Mass Index 27.5 Const: Other: Coughing, some shortness of breath General: no acute distress Resp: Other: Some shortness of breath Cardio: Rate: tachycardic GI: Palpation (GI): Soft to palpation, not firm, nontender and no guarding Objective Data Active Medications Acetaminophen (Acetaminophen 325 Mg Tablet) 650 mg PO Q6H PRN PRN Reason: Pain, Mild 1-3,fever,headache Apixaban (Apixaban 5 Mg Tablet) 5 mg PO BID [facility] Last Admin: 12/05/24 07:55 Dose: 5 mg Documented By: SUSANNA Calcium Carbonate (Calcium Carbonate 750 Mg Tab.Chew) 750 mg PO Q4H PRN PRN Reason: Heartburn Ceftriaxone Sodium (Ceftriaxone Sodium 1 Gm Vial) 1 gm IVPUSH Q24H [facility] Last Admin: 12/04/24 15:49 Dose: 1 gm Documented By: GABY Docusate Sodium (Docusate Sodium 100 Mg Capsule) 100 mg PO BID [facility] Last Admin: 12/05/24 07:55 Dose: 100 mg Documented By: SUSANNA Ferrous Sulfate (Ferrous Sulfate 324 Mg Tablet.Dr) 324 mg PO DAILY [facility] Last Admin: 12/05/24 07:55 Dose: 324 mg Documented By: SUSANNA Finasteride (Finasteride 5 Mg Tablet) 5 mg PO DAILY [facility] Last Admin: 12/05/24 07:55 Dose: 5 mg Documented By: SUSANNA Diltiazem HCl 125 mg/ Sodium (Chloride) 125 mls @ 0 mls/hr IVCONT .Q0M [facility]; Protocol Last Titration: 12/05/24 00:59 Dose: Infused Documented By: NIR Metronidazole (Flagyl) 500 mg in 100 mls @ 100 mls/hr IV Q8H [facility] Last Infusion: 12/05/24 05:30 Dose: Infused Documented By: NIR Doxycycline Hyclate 100 mg/ (Sodium Chloride) 250 mls @ 166.67 mls/hr IV Q12H [facility] Last Infusion: 12/05/24 08:23 Dose: Infused Documented By: SUSANNA Dextrose/Sodium Chloride (D51/2ns) 1,000 mls @ 50 mls/hr IVCONT .Q20H [facility] Last Admin: 12/04/24 18:32 Dose: 50 mls/hr Documented By: GABY Lorazepam (Lorazepam 2 Mg/Ml Vial) 0.5 mg IVPUSH Q12H PRN PRN Reason: Anxiety Last Admin: 11/30/24 14:06 Dose: 0.5 mg Documented By: BECKA Magnesium Hydroxide (Milk Of Magnesia 30 Ml Oral.Susp) 30 ml PO DAILY PRN PRN Reason: Constipation Melatonin (Melatonin 3 Mg Tablet) 6 mg PO BEDTIME [facility] Last Admin: 12/04/24 20:40 Dose: 6 mg Documented By: HUNTER Metoprolol Tartrate (Metoprolol Tartrate 5 Mg/5 Ml Vial) 5 mg IVPUSH Q6H PRN; Protocol PRN Reason: hr>120 Nortriptyline HCl (Nortriptyline Hcl 25 Mg Capsule) 75 mg PO BEDTIME [facility] Last Admin: 12/04/24 20:40 Dose: 75 mg Documented By: HUNTER Olanzapine (Olanzapine 7.5 Mg Tablet) 7.5 mg PO BEDTIME [facility] Last Admin: 12/04/24 20:40 Dose: 7.5 mg Documented By: HUNTER Olanzapine (Olanzapine 5 Mg Tablet) 5 mg PO BID PRN PRN Reason: Anxiety Ondansetron HCl (Ondansetron Odt 4 Mg Tab.Rapdis) 4 mg TRANSLINGU Q12H PRN PRN Reason: Nausea And Vomiting Last Admin: 11/29/24 21:43 Dose: 4 mg Documented By: LEWIS Oxybutynin Chloride (Oxybutynin Chloride 5 Mg Tablet) 5 mg PO DAILY [facility] Last Admin: 12/05/24 07:55 Dose: 5 mg Documented By: SUSANNA Pantoprazole Sodium (Pantoprazole Sodium 40 Mg/10 Ml Vial) 40 mg IVPUSH DAILY@0630 [facility] Last Admin: 12/05/24 08:22 Dose: 40 mg Documented By: SUSANNA Polyethylene Glycol (Polyethylene Glycol 3350 17 Gm Powd.Pack) 17 gm PO DAILY [facility] Last Admin: 12/05/24 07:55 Dose: 17 gm Documented By: SUSANNA Senna (Sennosides 8.6 Mg Tablet) 8.6 mg PO BEDTIME PRN PRN Reason: Constipation Sodium Chloride (0.9 % Sodium Chloride Flush 3 Ml Syringe) 3 ml IVFLUSH QSHIFT [facility] Last Admin: 12/05/24 07:55 Dose: 3 ml Documented By: SUSANNA Trazodone HCl (Trazodone Hcl 50 Mg Tablet) 50 mg PO BEDTIME MRX1 PRN PRN Reason: Sleep Last Admin: 11/29/24 21:45 Dose: 50 mg Documented By: LEWIS Vitamin D (Cholecalciferol (Vitamin D3) 10 Mcg Tablet) 10 mcg PO DAILY [facility] Last Admin: 12/05/24 07:55 Dose: 10 mcg Documented By: SUSANNA Labs 12/05/24 06:52 12/05/24 06:52 Labs: Laboratory Results - last 24 hr 12/05/24 06:52 MCV 101.2 H MCH 33.5 H MCHC 33.1 RDW 14.9 Plt Count 206 MPV 9.3 L Absolute Nucleated RBC 0.000 Nucleated RBC % (auto) 0.0 Anion Gap 11 L Estim Creat Clear Calc 88.1 Estimated GFR > 60 Random Glucose 122 H Calcium 7.6 L D Assessment and Plan (1) Atrial flutter by electrocardiogram: Status: Acute Assessment and Plan: 79M PMH prostate CA, hx PE [2020] on apixaban, vertigo, GERD, HLD, MDD + psychosis admitted to geriatric psychiatry 11/14 for anxiety + panic attacks, undergoing ECT. Had endoscopy with removal of esophageal foreign body, balloon dilation of esophageal stricture, and biopsy on 11/26/24. PITTING MACHINE OPERATOR called 11/28 for tachycardia in 150s; found to have atrial flutter with RVR; given IV metoprolol, digoxin + diltiazem and transferred to telemetry paroxysmal AF/RVR was rate controlled with dilt drip, now in NSR contineu lopressor 2.5 q6 iv acute hypoxic respiratory failure due to aspiration PNA - 11/28- ceftriaxone + doxycycline - wean O2 as tolerated - down to 5L today dysphagia, esophogeal stricture, type IV paraesophageal hernia s/p ballooning, ppi, still unable to tolerate pureed, NPO, ivf, plan for gtube, surgery following potentially OR today 12/05/24 question of acute cholecystitis seen on CT of chest; US nondiagnostic; positive HIDA; metronidazole added 11/28 surgery appreciated, no need for intervention at this time prerenal ANDREA acute metabolic acidosis resolved after IV fluid hydration mild transaminitis likely due to PNA vs cholecytstitis; improving subclinical hyperthyroidism repeat TFTs in 4-6 wk prediabetes no insulin needed VTE ppx apixaban GERD PPI MDD continue olanzapine, nortriptylline, trazodone prostatism finasteride dispo - eventual return to salty-psych reason for continued hospitalization:hypoxia, npo Total time managing care of this patient today: 45 minutes. Quality Stroke Does the patient have a stroke diagnosis?: No VTE Prior VTE?: Yes VTE Risk Level:: Medical - moderate - high VTE Device Contraindication: Treatment Not Indicated VTE Drug Contraindication: N/A - Med Ordered
[2024-12-05] MEDS: Metoprolol Tartrate 5 MG/5 ML VIAL 2.5 MG IVPUSH ×3 (10:30→23:39)
--- NOTE | 2024-12-05 13:05 | MHC.SLORD ---
Speech Language Pathology Order Status: Pt seen for followup this morning, FLIGHT PARAMEDIC recommending MBSS d/t variable severity and frequency of dysphagia. Pt c/o dry mouth, pt took approximately 2 sips of water. Delayed and extended cough occurred. MD and RNs consulted, pt going for PEG today, remains NPO strict. FLIGHT PARAM[employer]IC tx to continue as indicated, though prognosis guarded for safe resumption of PO.
[2024-12-05] MEDS: Dextrose 5 % and 0.45 % NaCl 1,000 ML 50 ML IVCONT (13:12)
[2024-12-05] MEDS: dilTIAZem HCL 125 MG in 0.9 % Sodium Chloride 100 ML 10 MG IVCONT (13:14)
--- NOTE | 2024-12-05 15:27 | MHC.CM.PN ---
EMR reviewed and per MD rounds, pt is not medically cleared for discharge due to management of hypoxia.
--- NOTE | 2024-12-05 15:36 | P.CNPS_ITS ---
History of Present Illness Chief Complaint: depression with psychosis/a flutter /pneumonia HPI Past Psychiatric History: -Has OP psychiatrist, Dr. Sims. Hx of ECT maintenance treatment. Has OP therapy through [facility]. -Hx of IPLOC at and [facility] for psychotic depression with catatonia. Assisted Living facility reports he has at least 2 inpatient stays a year. -Per chart, pt has declined when he misses ECT treatment, i.e. in 2019 he was admitted to [facility] due to deteriorating after missing ECT in context of pulmonary embolism. [facility] Medical History (Updated 11/30/24 @ 08:58 by Tawanda Garcia MD) Abnormal biliary HIDA scan COVID-19 vaccine administered History of electroconvulsive therapy Major depressive disorder, recurrent, severe with psychotic features Pulmonary embolism Diverticulitis of colon with perforation Hyperlipidemia HTN (hypertension) Dementia GERD (gastroesophageal reflux disease) Depression SVT (supraventricular tachycardia) Surgical History History of esophagogastroduodenoscopy (EGD) H/O colonoscopy Status post Paula's procedure History of colostomy reversal H/O hernia repair Family History: unknown Social History: -Pt resides in an Assisted Living Facility, [facility]. -Pt?s is . Has step-daughter who is HCP and brother in [place]. He is a . Trauma History: Unknown Diagnostics Vital Signs (24Hr): Vital Signs - 24 hr 12/04/24 15:37 12/04/24 17:15 12/04/24 20:00 Temperature 98.2 F 98.4 F Pulse Rate 85 113 H Respiratory Rate 18 22 H Blood Pressure 117/73 120/78 Pulse Oximetry 95 93 91 L Oxygen Delivery Method Oxymask Oxymask Oxymask Oxygen Flow Rate 7 3 5 12/05/24 00:00 12/05/24 04:00 12/05/24 08:00 Temperature 97.5 F 97.8 F 98.4 F Pulse Rate 100 101 H 88 Respiratory Rate 16 17 17 Blood Pressure 105/65 111/71 107/66 Pulse Oximetry 94 93 94 Oxygen Delivery Method Oxymask Oxymask Oxymask Oxygen Flow Rate 7 9 4.5 12/05/24 12:00 12/05/24 15:13 Temperature 97.7 F 98.5 F Pulse Rate 83 102 H Respiratory Rate 18 32 H Blood Pressure 97/66 133/82 Pulse Oximetry 96 95 Oxygen Delivery Method Oxymask Oxymask Oxygen Flow Rate 4 4 BMI result Body Mass Index 27.5 Labs 12/05/24 06:52 12/05/24 06:52 Labs: Laboratory Results - last 48 hr 11/30/24 12/03/24 12/04/24 08:09 15:32 06:01 WBC 7.1 RBC 3.38 L Hgb 11.4 L Hct 33.3 L MCV 98.5 H MCH 33.7 H MCHC 34.2 RDW 14.9 Plt Count 204 MPV 9.5 Absolute Nucleated RBC 0.000 Nucleated RBC % (auto) 0.0 Sodium 145 144 Potassium 4.0 3.6 Chloride 116 H 117 H Carbon Dioxide 20 L 19 L Anion Gap 13 12 BUN 27 H 27 H Creatinine 0.71 0.71 Estim Creat Clear Calc 86.9 86.9 Estimated GFR > 60 > 60 Random Glucose 117 H 109 Calcium 8.2 L 8.1 L Nortriptyline 88 12/04/24 12/05/24 08:11 06:52 WBC 8.3 7.8 RBC 3.24 L 3.31 L Hgb 11.0 L 11.1 L Hct 32.6 L 33.5 L MCV 100.6 H 101.2 H MCH 34.0 H 33.5 H MCHC 33.7 33.1 RDW 15.0 14.9 Plt Count 172 206 MPV 10.0 9.3 L Absolute Nucleated RBC 0.000 0.000 Nucleated RBC % (auto) 0.0 0.0 Sodium 145 Potassium 3.3 Chloride 116 H Carbon Dioxide 21 L Anion Gap 11 L BUN 22 H Creatinine 0.70 Estim Creat Clear Calc 88.1 Estimated GFR > 60 Random Glucose 122 H Calcium 7.6 L D Nortriptyline Imaging Radiology Impressions: ITS Impressions Abdomen Ultrasound 11/29/24 07:22 IMPRESSION: Markedly limited examination as described. Hepatic steatosis. Possible sludge in the gallbladder. If there is clinical concern for acute cholecystitis, HIDA scan is recommended. Electronically signed by: Iftikhar Esteves MD 11/29/2024 08:07 AM [facility] Hepatobiliary Scan Nuclear Medicine 11/29/24 15:30 IMPRESSION: No gallbladder activity is seen. Findings are compatible with cystic duct obstruction and acute cholecystitis. Electronically signed by: Iftikhar Esteves MD 11/29/2024 04:02 PM EST RP Chest X-Ray 12/01/24 08:10 IMPRESSION: Low lung volumes. Large hiatal hernia. Bibasilar subsegmental atelectasis. Electronically signed by: Iftikhar Esteves MD 12/01/2024 08:32 AM EST RP Medications Medications Current Medications Acetaminophen (Acetaminophen 325 Mg Tablet) 650 mg PO Q6H PRN PRN Reason: Pain, Mild 1-3,fever,headache Apixaban (Apixaban 5 Mg Tablet) 5 mg PO BID [facility] Last Admin: 12/05/24 07:55 Dose: 5 mg Calcium Carbonate (Calcium Carbonate 750 Mg Tab.Chew) 750 mg PO Q4H PRN PRN Reason: Heartburn Ceftriaxone Sodium (Ceftriaxone Sodium 1 Gm Vial) 1 gm IVPUSH Q24H [facility] Last Admin: 12/04/24 15:49 Dose: 1 gm Docusate Sodium (Docusate Sodium 100 Mg Capsule) 100 mg PO BID [facility] Last Admin: 12/05/24 07:55 Dose: 100 mg Ferrous Sulfate (Ferrous Sulfate 324 Mg Tablet.Dr) 324 mg PO DAILY [facility] Last Admin: 12/05/24 07:55 Dose: 324 mg Finasteride (Finasteride 5 Mg Tablet) 5 mg PO DAILY [facility] Last Admin: 12/05/24 07:55 Dose: 5 mg Diltiazem HCl 125 mg/ Sodium (Chloride) 125 mls @ 0 mls/hr IVCONT .Q0M [facility]; Protocol Last Admin: 12/05/24 13:14 Dose: 10 mg/hr, 10 mls/hr Metronidazole (Flagyl) 500 mg in 100 mls @ 100 mls/hr IV Q8H [facility] Last Infusion: 12/05/24 11:47 Dose: Infused Doxycycline Hyclate 100 mg/ (Sodium Chloride) 250 mls @ 166.67 mls/hr IV Q12H [facility] Last Infusion: 12/05/24 08:23 Dose: Infused Dextrose/Sodium Chloride (D51/2ns) 1,000 mls @ 50 mls/hr IVCONT .Q20H [facility] Last Admin: 12/05/24 13:12 Dose: 50 mls/hr Lorazepam (Lorazepam 2 Mg/Ml Vial) 0.5 mg IVPUSH Q12H PRN PRN Reason: Anxiety Last Admin: 11/30/24 14:06 Dose: 0.5 mg Magnesium Hydroxide (Milk Of Magnesia 30 Ml Oral.Susp) 30 ml PO DAILY PRN PRN Reason: Constipation Melatonin (Melatonin 3 Mg Tablet) 6 mg PO BEDTIME [facility] Last Admin: 12/04/24 20:40 Dose: 6 mg Metoprolol Tartrate (Metoprolol Tartrate 5 Mg/5 Ml Vial) 2.5 mg IVPUSH Q6H [facility]; Protocol Last Admin: 12/05/24 10:30 Dose: 2.5 mg Nortriptyline HCl (Nortriptyline Hcl 25 Mg Capsule) 75 mg PO BEDTIME [facility] Last Admin: 12/04/24 20:40 Dose: 75 mg Olanzapine (Olanzapine 7.5 Mg Tablet) 7.5 mg PO BEDTIME [facility] Last Admin: 12/04/24 20:40 Dose: 7.5 mg Olanzapine (Olanzapine 5 Mg Tablet) 5 mg PO BID PRN PRN Reason: Anxiety Ondansetron HCl (Ondansetron Odt 4 Mg Tab.Rapdis) 4 mg TRANSLINGU Q12H PRN PRN Reason: Nausea And Vomiting Last Admin: 11/29/24 21:43 Dose: 4 mg Oxybutynin Chloride (Oxybutynin Chloride 5 Mg Tablet) 5 mg PO DAILY [facility] Last Admin: 12/05/24 07:55 Dose: 5 mg Pantoprazole Sodium (Pantoprazole Sodium 40 Mg/10 Ml Vial) 40 mg IVPUSH DAILY@0630 [facility] Last Admin: 12/05/24 08:22 Dose: 40 mg Polyethylene Glycol (Polyethylene Glycol 3350 17 Gm Powd.Pack) 17 gm PO DAILY [facility] Last Admin: 12/05/24 07:55 Dose: 17 gm Senna (Sennosides 8.6 Mg Tablet) 8.6 mg PO BEDTIME PRN PRN Reason: Constipation Sodium Chloride (0.9 % Sodium Chloride Flush 3 Ml Syringe) 3 ml IVFLUSH QSHIFT [facility] Last Admin: 12/05/24 07:55 Dose: 3 ml Trazodone HCl (Trazodone Hcl 50 Mg Tablet) 50 mg PO BEDTIME MRX1 PRN PRN Reason: Sleep Last Admin: 11/29/24 21:45 Dose: 50 mg Vitamin D (Cholecalciferol (Vitamin D3) 10 Mcg Tablet) 10 mcg PO DAILY [facility] Last Admin: 12/05/24 07:55 Dose: 10 mcg Allergies Allergies Allergy/AdvReac Type Severity Reaction Status Date / Time No Known Allergies Allergy Verified 11/14/24 10:15 [No Known Allergies*] Assessment & Plan Total time managing care of this patient today ____ minutes.
[2024-12-05] MEDS: cefTRIAXone sodium 1 GM VIAL IVPUSH (15:44)
[2024-12-05] MEDS: Nortriptyline HCl 25 MG CAPSULE 75 MG PO (20:17)
[2024-12-05] MEDS: traZODone HCL 50 MG TABLET PO (20:17)
[2024-12-05] MEDS: OLANZapine 7.5 MG TABLET PO (20:17)
[2024-12-05] MEDS: Melatonin 3 MG TABLET 6 MG PO (20:18)
[2024-12-06] MEDS: guaiFENesin DM 200/20/10 ML 10 ML SYRUP PO (03:12)
[2024-12-06] MEDS: metroNIDAZOLE/NS 500 MG/100 ML PIGGYBACK 100 MG IV (03:12)
[2024-12-06 03:35] VITALS: BP 120/70; PULSE 84; RESP 20; TEMP 36.4
[2024-12-06] MEDS: Metoprolol Tartrate 5 MG/5 ML VIAL 2.5 MG IVPUSH ×4 (03:39→21:21)
[2024-12-06] MEDS: Pantoprazole Sodium 40 MG/10 ML VIAL IVPUSH (06:20)
[2024-12-06] MEDS: Doxycycline Hyclate 100 MG in 0.9 % Sodium Chloride 250 ML 166.67 MG IV (06:20)
[2024-12-06 07:24] VITALS: BP 127/76; PULSE 89; RESP 18; TEMP 36.1; O2SAT 95
[2024-12-06 07:28] LABS: Hematocrit 33.3 % (42.0-52.0); Hemoglobin 11.2 g/dl (14.0-18.0); Mean Corpuscular HGB Conc 33.6 g/dl (31.0-36.0); Mean Corpuscular Hemoglobin 33.6 pg (27.0-33.0); Mean Platelet Volume 9.3 fL (9.4-12.4); Platelet Count 201 X10*3/uL (160-400); Red Blood Count 3.33 X10*6/uL (4.60-5.80); Red Cell Distribution Width 14.8 % (11.0-16.0); White Blood Count 7.4 X10*3/uL (4.8-10.8)
[2024-12-06 07:37] LABS: Anion Gap 10 (12-20); Blood Urea Nitrogen 18 mg/dL (9-16); Calcium 7.9 mg/dL (8.4-10.2); Carbon Dioxide 22 mmol/L (22-29); Chloride 114 mmol/L (96-108); Creatinine Clr Calc Pharmacy 90.7; Estimated Glomerular Filt Rate > 60; Glucose Random 120 mg/dL (60-115); Potassium 3.2 mmol/L (3.3-5.1); Sodium 143 mmol/L (135-145)
[2024-12-06] MEDS: 0.9 % Sodium Chloride Flush 3 ML SYRINGE IVFLUSH ×2 (08:35→15:52)
[2024-12-06] MEDS: oxyBUTYnin chloride 5 MG TABLET PO (08:37)
[2024-12-06] MEDS: Finasteride 5 MG TABLET PO (08:37)
[2024-12-06] MEDS: Ferrous Sulfate 324 MG TABLET.DR PO (08:37)
[2024-12-06] MEDS: Cholecalciferol (Vitamin D3) 10 MCG TABLET PO (08:37)
[2024-12-06] MEDS: Dextrose 5 % and 0.45 % NaCl 1,000 ML 50 ML IVCONT (08:39)
--- NOTE | 2024-12-06 09:49 | P.PNIM_ITS ---
Subjective Subjective Date of Service: 12/06/24 Interval History: no complaints Physical Exam 2 Vital Signs: Vital Signs: Last Vital Signs Temp 97.0 F 12/06/24 07:24 Pulse 89 12/06/24 07:24 Resp 18 12/06/24 07:24 BP 127/76 12/06/24 07:24 Pulse Ox 95 12/06/24 07:24 O2 Del Method Oxymask 12/06/24 07:24 O2 Flow Rate 4 12/06/24 07:24 BMI result Body Mass Index 27.5 Const: Other: Coughing, some shortness of breath General: no acute distress Resp: Other: Some shortness of breath Cardio: Rate: tachycardic GI: Palpation (GI): Soft to palpation, not firm, nontender and no guarding Objective Data Active Medications Acetaminophen (Acetaminophen 325 Mg Tablet) 650 mg PO Q6H PRN PRN Reason: Pain, Mild 1-3,fever,headache Apixaban (Apixaban 5 Mg Tablet) 5 mg PO BID COUNTS INCLUDE 234 BEDS AT THE [facility] Last Admin: 12/05/24 20:17 Dose: 5 mg Documented By: AJITH Calcium Carbonate (Calcium Carbonate 750 Mg Tab.Chew) 750 mg PO Q4H PRN PRN Reason: Heartburn Ceftriaxone Sodium (Ceftriaxone Sodium 1 Gm Vial) 1 gm IVPUSH Q24H COUNTS INCLUDE 234 BEDS AT THE [facility] Last Admin: 12/05/24 15:44 Dose: 1 gm Documented By: SUSANNA Docusate Sodium (Docusate Sodium 100 Mg Capsule) 100 mg PO BID COUNTS INCLUDE 234 BEDS AT THE [facility] Last Admin: 12/06/24 08:26 Dose: Not Given Documented By: MARIELA Non-Admin Reason: Pt having diarrhea Ferrous Sulfate (Ferrous Sulfate 324 Mg Tablet.Dr) 324 mg PO DAILY COUNTS INCLUDE 234 BEDS AT THE [facility] Last Admin: 12/06/24 08:37 Dose: 324 mg Documented By: MARIELA Finasteride (Finasteride 5 Mg Tablet) 5 mg PO DAILY COUNTS INCLUDE 234 BEDS AT THE [facility] Last Admin: 12/06/24 08:37 Dose: 5 mg Documented By: MARIELA Guaifenesin/Dextromethorphan (Guaifenesin Dm 200/20/10 Ml 10 Ml Syrup) 10 ml PO Q4H PRN PRN Reason: Cough Last Admin: 12/06/24 03:12 Dose: 10 ml Documented By: AJITH Diltiazem HCl 125 mg/ Sodium (Chloride) 125 mls @ 0 mls/hr IVCONT .Q0M [facility]; Protocol Last Titration: 12/05/24 17:36 Dose: 0 mg/hr, 0 mls/hr Documented By: SUSANNA Metronidazole (Flagyl) 500 mg in 100 mls @ 100 mls/hr IV Q8H COUNTS INCLUDE 234 BEDS AT THE [facility] Last Infusion: 12/06/24 05:17 Dose: Infused Documented By: AJITH Doxycycline Hyclate 100 mg/ (Sodium Chloride) 250 mls @ 166.67 mls/hr IV Q12H COUNTS INCLUDE 234 BEDS AT THE [facility] Last Infusion: 12/06/24 08:35 Dose: Infused Documented By: MARIELA Dextrose/Sodium Chloride (D51/2ns) 1,000 mls @ 50 mls/hr IVCONT .Q20H [facility] Last Admin: 12/06/24 08:39 Dose: 50 mls/hr Documented By: MARIELA Lorazepam (Lorazepam 2 Mg/Ml Vial) 0.5 mg IVPUSH Q12H PRN PRN Reason: Anxiety Last Admin: 11/30/24 14:06 Dose: 0.5 mg Documented By: BECKA Magnesium Hydroxide (Milk Of Magnesia 30 Ml Oral.Susp) 30 ml PO DAILY PRN PRN Reason: Constipation Melatonin (Melatonin 3 Mg Tablet) 6 mg PO BEDTIME [facility] Last Admin: 12/05/24 20:18 Dose: 6 mg Documented By: AJITH Metoprolol Tartrate (Metoprolol Tartrate 5 Mg/5 Ml Vial) 2.5 mg IVPUSH Q6H [facility]; Protocol Last Admin: 12/06/24 03:39 Dose: 2.5 mg Documented By: AJITH Nortriptyline HCl (Nortriptyline Hcl 25 Mg Capsule) 75 mg PO BEDTIME [facility] Last Admin: 12/05/24 20:17 Dose: 75 mg Documented By: AJITH Olanzapine (Olanzapine 7.5 Mg Tablet) 7.5 mg PO BEDTIME [facility] Last Admin: 12/05/24 20:17 Dose: 7.5 mg Documented By: AJITH Olanzapine (Olanzapine 5 Mg Tablet) 5 mg PO BID PRN PRN Reason: Anxiety Ondansetron HCl (Ondansetron Odt 4 Mg Tab.Rapdis) 4 mg TRANSLINGU Q12H PRN PRN Reason: Nausea And Vomiting Last Admin: 11/29/24 21:43 Dose: 4 mg Documented By: LEWIS Oxybutynin Chloride (Oxybutynin Chloride 5 Mg Tablet) 5 mg PO DAILY COUNTS INCLUDE 234 BEDS AT [facility] Last Admin: 12/06/24 08:37 Dose: 5 mg Documented By: MARIELA Pantoprazole Sodium (Pantoprazole Sodium 40 Mg/10 Ml Vial) 40 mg IVPUSH DAILY@0630 COUNTS [facility]CLUDE 234 BEDS AT THE [facility] Last Admin: 12/06/24 06:20 Dose: 40 mg Documented By: AJITH Polyethylene Glycol (Polyethylene Glycol 3350 17 Gm Powd.Pack) 17 gm PO DAILY COUNTS INCLUDE 234 BEDS AT THE [facility] Last Admin: 12/06/24 08:26 Dose: Not Given Documented By: MARIELA Non-Admin Reason: Pt having diarrhea Senna (Sennosides 8.6 Mg Tablet) 8.6 mg PO BEDTIME PRN PRN Reason: Constipation Sodium Chloride (0.9 % Sodium Chloride Flush 3 Ml Syringe) 3 ml IVFLUSH QSHIFT COUNTS INCLUDE 234 BEDS AT THE [facility] Last Admin: 12/06/24 08:35 Dose: 3 ml Documented By: MARIELA Trazodone HCl (Trazodone Hcl 50 Mg Tablet) 50 mg PO BEDTIME MRX1 PRN PRN Reason: Sleep Last Admin: 12/05/24 20:17 Dose: 50 mg Documented By: AJITH Vitamin D (Cholecalciferol (Vitamin D3) 10 Mcg Tablet) 10 mcg PO DAILY COUNTS INCLUDE 234 BEDS AT [facility] Last Admin: 12/06/24 08:37 Dose: 10 mcg Documented By: MARIELA Labs 12/06/24 07:14 12/06/24 07:14 Labs: Laboratory Results - last 24 hr 12/06/24 07:14 MCV 100.0 H MCH 33.6 H MCHC 33.6 RDW 14.8 Plt Count 201 MPV 9.3 L Absolute Nucleated RBC 0.000 Nucleated RBC % (auto) 0.0 Anion Gap 10 L Estim Creat Clear Calc 90.7 Estimated GFR > 60 Random Glucose 120 H Calcium 7.9 L Assessment and Plan (1) Atrial flutter by electrocardiogram: Status: Acute Assessment and Plan: 79M PMH prostate CA, hx PE [2020] on apixaban, vertigo, GERD, HLD, MDD + psychosis admitted to geriatric psychiatry 11/14 for anxiety + panic attacks, undergoing ECT. Had endoscopy with removal of esophageal foreign body, balloon dilation of esophageal stricture, and biopsy on 11/26/24. LEGAL DOCUMENT ASSISTANT called 11/28 for tachycardia in 150s; found to have atrial flutter with RVR; given IV metoprolol, digoxin + diltiazem and transferred to telemetry paroxysmal AF/RVR was rate controlled with dilt drip, now in NSR contineu lopressor 2.5 q6 iv acute hypoxic respiratory failure due to aspiration PNA completed course- 11/28 - 12/06/24- ceftriaxone + doxycycline + flagyl - wean O2 as tolerated - down to 5L today dysphagia, esophogeal stricture, type IV paraesophageal hernia s/p ballooning, ppi, still unable to tolerate pureed, NPO, ivf, plan for gtube, surgery following potentially OR today 12/06/24 question of acute cholecystitis seen on CT of chest; US nondiagnostic; positive HIDA; completed abx course surgery appreciated, no need for intervention at this time prerenal ANDREA acute metabolic acidosis resolved after IV fluid hydration mild transaminitis likely due to PNA vs cholecytstitis; improving subclinical hyperthyroidism repeat TFTs in 4-6 wk prediabetes no insulin needed VTE ppx apixaban on hold for surgery mechanical GERD PPI MDD continue olanzapine, nortriptylline, trazodone prostatism finasteride dispo - eventual return to [facility] reason for continued hospitalization:hypoxia, npo Total time managing care of this patient today: 45 minutes. Quality Stroke Does the patient have a stroke diagnosis?: No VTE Prior VTE?: Yes VTE Risk Level:: Medical - moderate - high VTE Device Contraindication: Treatment Not Indicated VTE Drug Contraindication: N/A - Med Ordered
[2024-12-06 11:19] VITALS: BP 134/65; PULSE 96; RESP 18; TEMP 36.3; O2SAT 96
[2024-12-06 15:36] VITALS: BP 131/83; PULSE 101; RESP 23; TEMP 36.3; O2SAT 91
--- NOTE | 2024-12-06 17:27 | HO.WOUND ---
Wound Consult: Initial 79yr old? [place] [facility] [place] - See progress notes and H&P for detailed history.? Wound consult placed for buttock.? Patient agreeable to assessment and photo documentation.? Buttock / Sacrum Etiology: ?No injury noted Wound Bed: pink intact blanchable tissue Drainage / Odor: None Nelida wound: ?intact No Induration, Fluctuance or Warmth noted Pain: denies Goals of Treatment: ? Off load pressure - barrier cream for prevention and treatment - suffers from mixed incontinence and JOCELYN mattress in use Recommendations: 1. Turn and Reposition every 2 hours and as needed for patient comfort.? Use pillows or wedges to support off loading positions. 2. Off Load all bony prominences with use of pillows and heel boots if needed.? Apply Preventative foams where needed. ? 3. Monitor for incontinence and moisture control, use barrier creams when needed for prevention and treatment. 4. Provide adequate and supplemental nutrition.? 5. Continue low air loss mattress. 6. When applicable maintain blood glucose levels per Providers order. 7. Sacrum and Buttock - Off Load Pressure with Q2 hr turns and use of pillows - Cleanse with PH balance spray or wipes, pat dry. ?Apply thin layer of barrier cream to area. Reapply thin layer PRN after each episode of incontinence. Re-consult wound care Nurse for wound deterioration or wound changes.
[2024-12-06 18:43] VITALS: PULSE 133
[2024-12-06] MEDS: dilTIAZem HCL 125 MG in 0.9 % Sodium Chloride 100 ML 10 MG IVCONT (18:43)
[2024-12-06 20:00] VITALS: BP 120/69; PULSE 93; RESP 16; TEMP 37.2; O2SAT 94
[2024-12-06] MEDS: Nortriptyline HCl 25 MG CAPSULE 75 MG PO (21:15)
[2024-12-06] MEDS: OLANZapine 7.5 MG TABLET PO (21:21)
[2024-12-06] MEDS: Melatonin 3 MG TABLET 6 MG PO (21:21)
[2024-12-07] VITALS (9 sets, daily range): BP systolic 105–154; BP diastolic 59–88; PULSE 70–135; RESP 18–22; TEMP 36.1–36.7; O2SAT 94–96; BMI 27.5
[2024-12-07] MEDS: Metoprolol Tartrate 5 MG/5 ML VIAL 2.5 MG IVPUSH ×4 (03:28→20:29)
[2024-12-07] MEDS: Dextrose 5 % and 0.45 % NaCl 1,000 ML 50 ML IVCONT (03:32)
[2024-12-07] MEDS: dilTIAZem HCL 125 MG in 0.9 % Sodium Chloride 100 ML IVCONT (05:25)
[2024-12-07] MEDS: Pantoprazole Sodium 40 MG/10 ML VIAL IVPUSH (05:29)
--- NOTE | 2024-12-07 06:47 | PC.NURSE ---
[place] [address]/06/24. Pt. awake, on Cardizem drip at 10mg/hr. Pt. Afib on tele with HR high 90's to low 100's. Pt. due to have CT scan abd. ordered routine but needs RN to accompany as on cardizem drip. Pt. became very upset, when told he needs to go for CT Scan last evening. At 2024, Pt. starting yelling and hitting his head stating No, I'm not going . Dr. Barillas informed and pt. to go in AM. Pt. converted to NSR at 2024 and remained in SR with freq. PVC and PAC with HR in the 80's, per Dr. Barillas at 2100 last evening to keep Cardizem infusing as ordered. Dr. Barillas updated of pt. being in NSR with HR 80's at [address] Barillas, titrate Cardizem drip down to 5mg/hr and ok to give scheduled Metoprolol.
[2024-12-07] MEDS: 0.9 % Sodium Chloride Flush 3 ML SYRINGE IVFLUSH ×2 (09:13→17:26)
[2024-12-07] MEDS: Finasteride 5 MG TABLET PO (09:15)
[2024-12-07] MEDS: Cholecalciferol (Vitamin D3) 10 MCG TABLET PO (09:16)
[2024-12-07] MEDS: oxyBUTYnin chloride 5 MG TABLET PO (09:16)
[2024-12-07] MEDS: Ferrous Sulfate 324 MG TABLET.DR PO (09:16)
--- NOTE | 2024-12-07 11:35 | P.PNIM_ITS ---
Subjective Subjective Date of Service: 12/07/24 Interval History: Seen and evaluated this morning Feels little better unable to tolerate PO Pending CT scan of abdomen and PEG tube placement no other events Review of Systems Review of Systems: Yes all other systems are reviewed and are negative Physical Exam 2 Vital Signs: Vital Signs: Last Vital Signs Temp 98.1 F 12/07/24 11:26 Pulse 89 12/07/24 11:26 Resp 18 12/07/24 11:26 BP 134/85 12/07/24 11:26 Pulse Ox 95 12/07/24 11:26 O2 Del Method Aerosol Mask 12/07/24 11:26 O2 Flow Rate 5 12/07/24 11:26 BMI result Body Mass Index 27.5 Const: Other: Constitutional : interactive, not in distress Cardiovascular : no JVP, no lower extremity edema Respiratory : bilateral chest movement, not in resp distress , basal crackles Gastrointestinal: soft, lax, Non tender Skin : Warm, Dry Neurological : Alert & oriented to self and place, No focal deficit Objective Data Active Medications Acetaminophen (Acetaminophen 325 Mg Tablet) 650 mg PO Q6H PRN PRN Reason: Pain, Mild 1-3,fever,headache Apixaban (Apixaban 5 Mg Tablet) 5 mg PO BID [facility] Last Admin: 12/05/24 20:17 Dose: 5 mg Documented By: AJITH Calcium Carbonate (Calcium Carbonate 750 Mg Tab.Chew) 750 mg PO Q4H PRN PRN Reason: Heartburn Docusate Sodium (Docusate Sodium 100 Mg Capsule) 100 mg PO BID [facility] Last Admin: 12/07/24 09:10 Dose: Not Given Documented By: MARIELA Non-Admin Reason: pt having diarrhea Ferrous Sulfate (Ferrous Sulfate 324 Mg Tablet.Dr) 324 mg PO DAILY [facility] Last Admin: 12/07/24 09:16 Dose: 324 mg Documented By: MARIELA Finasteride (Finasteride 5 Mg Tablet) 5 mg PO DAILY [facility] Last Admin: 12/07/24 09:15 Dose: 5 mg Documented By: MARIELA Guaifenesin/Dextromethorphan (Guaifenesin Dm 200/20/10 Ml 10 Ml Syrup) 10 ml PO Q4H PRN PRN Reason: Cough Last Admin: 12/06/24 03:12 Dose: 10 ml Documented By: AJITH Diltiazem HCl 125 mg/ Sodium (Chloride) 125 mls @ 0 mls/hr IVCONT .Q0M [facility]; Protocol Last Titration: 12/07/24 09:12 Dose: 0 mg/hr, 0 mls/hr Documented By: MARIELA Dextrose/Sodium Chloride (D51/2ns) 1,000 mls @ 50 mls/hr IVCONT .Q20H [facility] Last Admin: 12/07/24 03:32 Dose: 50 mls/hr Documented By: AJITH Lorazepam (Lorazepam 2 Mg/Ml Vial) 0.5 mg IVPUSH Q12H PRN PRN Reason: Anxiety Last Admin: 11/30/24 14:06 Dose: 0.5 mg Documented By: BECKA Magnesium Hydroxide (Milk Of Magnesia 30 Ml Oral.Susp) 30 ml PO DAILY PRN PRN Reason: Constipation Melatonin (Melatonin 3 Mg Tablet) 6 mg PO BEDTIME [facility] Last Admin: 12/06/24 21:21 Dose: 6 mg Documented By: BROOKE Metoprolol Tartrate (Metoprolol Tartrate 5 Mg/5 Ml Vial) 2.5 mg IVPUSH Q6H [facility]; Protocol Last Admin: 12/07/24 09:15 Dose: 2.5 mg Documented By: MARIELA Nortriptyline HCl (Nortriptyline Hcl 25 Mg Capsule) 75 mg PO BEDTIME [facility] Last Admin: 12/06/24 21:15 Dose: 75 mg Documented By: BROOKE Olanzapine (Olanzapine 7.5 Mg Tablet) 7.5 mg PO BEDTIME [facility] Last Admin: 12/06/24 21:21 Dose: 7.5 mg Documented By: BROOKE Olanzapine (Olanzapine 5 Mg Tablet) 5 mg PO BID PRN PRN Reason: Anxiety Ondansetron HCl (Ondansetron Odt 4 Mg Tab.Rapdis) 4 mg TRANSLINGU Q12H PRN PRN Reason: Nausea And Vomiting Last Admin: 11/29/24 21:43 Dose: 4 mg Documented By: LEWIS Oxybutynin Chloride (Oxybutynin Chloride 5 Mg Tablet) 5 mg PO DAILY [facility] Last Admin: 12/07/24 09:16 Dose: 5 mg Documented By: MARIELA Pantoprazole Sodium (Pantoprazole Sodium 40 Mg/10 Ml Vial) 40 mg IVPUSH DAILY@0630 [facility] Last Admin: 12/07/24 05:29 Dose: 40 mg Documented By: BROOKE Polyethylene Glycol (Polyethylene Glycol 3350 17 Gm Powd.Pack) 17 gm PO DAILY [facility] Last Admin: 12/07/24 09:11 Dose: Not Given Documented By: MARIELA Non-Admin Reason: pt having diarrhea Senna (Sennosides 8.6 Mg Tablet) 8.6 mg PO BEDTIME PRN PRN Reason: Constipation Sodium Chloride (0.9 % Sodium Chloride Flush 3 Ml Syringe) 3 ml IVFLUSH QSHIFT [facility] Last Admin: 12/07/24 09:13 Dose: 3 ml Documented By: MARIELA Trazodone HCl (Trazodone Hcl 50 Mg Tablet) 50 mg PO BEDTIME MRX1 PRN PRN Reason: Sleep Last Admin: 12/05/24 20:17 Dose: 50 mg Documented By: AJITH Vitamin D (Cholecalciferol (Vitamin D3) 10 Mcg Tablet) 10 mcg PO DAILY [facility] Last Admin: 12/07/24 09:16 Dose: 10 mcg Documented By: MARIELA Labs 12/06/24 07:14 12/06/24 07:14 Assessment and Plan (1) Atrial flutter by electrocardiogram: Status: Acute Assessment and Plan: 79M PMH prostate CA, hx PE [2020] on apixaban, vertigo, GERD, HLD, MDD + psychosis admitted to geriatric psychiatry 11/14 for anxiety + panic attacks, undergoing ECT. Had endoscopy with removal of esophageal foreign body, balloon dilation of esophageal stricture, and biopsy on 11/26/24. TIPPING MACHINE OPERATOR called 11/28 for tachycardia in 150s; found to have atrial flutter with RVR; given IV metoprolol, digoxin + diltiazem and transferred to telemetry dysphagia, esophogeal stricture, type IV paraesophageal hernia s/p ballooning, ppi, still unable to tolerate pureed, NPO, ivf, plan for gtube, surgery following to check CT abd PHILOSOPHY AND RELIGION INSTRUCTOR following suggesting MBSS paroxysmal AF/RVR was rate controlled with dilt drip, now in NSR, DC drip and switch to [facility] Cardizem IV. continue lopressor 2.5 q6 iv acute hypoxic respiratory failure due to aspiration PNA completed course- 2/24 - 12/06/24- ceftriaxone + doxycycline + flagyl wean O2 as tolerated - down to 5L today question of acute cholecystitis seen on CT of chest; US nondiagnostic; positive HIDA; completed abx course surgery appreciated, no need for intervention at this time prerenal ANDREA acute metabolic acidosis resolved after IV fluid hydration mild transaminitis likely due to PNA vs cholecytstitis; improving subclinical hyperthyroidism repeat TFTs in 4-6 wk prediabetes no insulin needed VTE ppx apixaban on hold for surgery mechanical GERD PPI MDD continue olanzapine, nortriptylline, trazodone prostatism finasteride dispo eventual return to [facility] reason for continued hospitalization:hypoxia, npo pending G-tube placement (2) Physical deconditioning: Status: Acute (3) Swallowing problem: Status: Acute Quality Stroke Does the patient have a stroke diagnosis?: No VTE Prior VTE?: Yes VTE Risk Level:: Medical - moderate - high VTE Device Contraindication: Treatment Not Indicated VTE Drug Contraindication: N/A - Med Ordered
--- NOTE | 2024-12-07 12:18 | PM.PNGS ---
Subjective Subjective Date of Service: 12/07/24 Interval history: No new complaints Mental status seems as baseline As per staff, able to tolerate oral intake with dysphagia Denies abdominal pain Physical Exam Vital Signs: Vital Signs: Last Vital Signs Temp 98.1 F 12/07/24 11:26 Pulse 89 12/07/24 11:26 Resp 18 12/07/24 11:26 BP 134/85 12/07/24 11:26 Pulse Ox 95 12/07/24 11:26 O2 Del Method Aerosol Mask 12/07/24 11:26 O2 Flow Rate 5 12/07/24 11:26 BMI result Body Mass Index 27.5 Const: General: comfortable and no acute distress Resp: Effort & Inspection: normal respiratory effort Cardio: Rate: regular rate GI: Other: No tenderness even with deep palpation, no Hernandez's sign Palpation (GI): Soft to palpation, not firm and nontender Objective Data Active Medications Acetaminophen (Acetaminophen 325 Mg Tablet) 650 mg PO Q6H PRN PRN Reason: Pain, Mild 1-3,fever,headache Apixaban (Apixaban 5 Mg Tablet) 5 mg PO BID [facility] Last Admin: 12/05/24 20:17 Dose: 5 mg Documented By: AJITH Calcium Carbonate (Calcium Carbonate 750 Mg Tab.Chew) 750 mg PO Q4H PRN PRN Reason: Heartburn Diltiazem HCl (Diltiazem Hcl 50 Mg/10 Ml Vial) 10 mg IVPUSH Q4H [facility] Docusate Sodium (Docusate Sodium 100 Mg Capsule) 100 mg PO BID [facility] Last Admin: 12/07/24 09:10 Dose: Not Given Documented By: MARIELA Non-Admin Reason: pt having diarrhea Ferrous Sulfate (Ferrous Sulfate 324 Mg Tablet.Dr) 324 mg PO DAILY [facility] Last Admin: 12/07/24 09:16 Dose: 324 mg Documented By: MARIELA Finasteride (Finasteride 5 Mg Tablet) 5 mg PO DAILY [facility] Last Admin: 12/07/24 09:15 Dose: 5 mg Documented By: MARIELA Guaifenesin/Dextromethorphan (Guaifenesin Dm 200/20/10 Ml 10 Ml Syrup) 10 ml PO Q4H PRN PRN Reason: Cough Last Admin: 12/06/24 03:12 Dose: 10 ml Documented By: AJITH Dextrose/Sodium Chloride (D51/2ns) 1,000 mls @ 50 mls/hr IVCONT .Q20H [facility] Last Admin: 12/07/24 03:32 Dose: 50 mls/hr Documented By: AJITH Lorazepam (Lorazepam 2 Mg/Ml Vial) 0.5 mg IVPUSH Q12H PRN PRN Reason: Anxiety Last Admin: 11/30/24 14:06 Dose: 0.5 mg Documented By: BECKA Magnesium Hydroxide (Milk Of Magnesia 30 Ml Oral.Susp) 30 ml PO DAILY PRN PRN Reason: Constipation Melatonin (Melatonin 3 Mg Tablet) 6 mg PO BEDTIME [facility] Last Admin: 12/06/24 21:21 Dose: 6 mg Documented By: BROOKE Metoprolol Tartrate (Metoprolol Tartrate 5 Mg/5 Ml Vial) 2.5 mg IVPUSH Q6H [facility]; Protocol Last Admin: 12/07/24 09:15 Dose: 2.5 mg Documented By: MARIELA Nortriptyline HCl (Nortriptyline Hcl 25 Mg Capsule) 75 mg PO BEDTIME [facility] Last Admin: 12/06/24 21:15 Dose: 75 mg Documented By: BROOKE Olanzapine (Olanzapine 7.5 Mg Tablet) 7.5 mg PO BEDTIME [facility] Last Admin: 12/06/24 21:21 Dose: 7.5 mg Documented By: BROOKE Olanzapine (Olanzapine 5 Mg Tablet) 5 mg PO BID PRN PRN Reason: Anxiety Ondansetron HCl (Ondansetron Odt 4 Mg Tab.Rapdis) 4 mg TRANSLINGU Q12H PRN PRN Reason: Nausea And Vomiting Last Admin: 11/29/24 21:43 Dose: 4 mg Documented By: LEWIS Oxybutynin Chloride (Oxybutynin Chloride 5 Mg Tablet) 5 mg PO DAILY [facility] Last Admin: 12/07/24 09:16 Dose: 5 mg Documented By: MARIELA Pantoprazole Sodium (Pantoprazole Sodium 40 Mg/10 Ml Vial) 40 mg IVPUSH DAILY@0630 [facility] Last Admin: 12/07/24 05:29 Dose: 40 mg Documented By: BROOKE Polyethylene Glycol (Polyethylene Glycol 3350 17 Gm Powd.Pack) 17 gm PO DAILY [facility] Last Admin: 12/07/24 09:11 Dose: Not Given Documented By: MARIELA Non-Admin Reason: pt having diarrhea Senna (Sennosides 8.6 Mg Tablet) 8.6 mg PO BEDTIME PRN PRN Reason: Constipation Sodium Chloride (0.9 % Sodium Chloride Flush 3 Ml Syringe) 3 ml IVFLUSH QSHIFT [facility] Last Admin: 12/07/24 09:13 Dose: 3 ml Documented By: MARIELA Trazodone HCl (Trazodone Hcl 50 Mg Tablet) 50 mg PO BEDTIME MRX1 PRN PRN Reason: Sleep Last Admin: 12/05/24 20:17 Dose: 50 mg Documented By: AJITH Vitamin D (Cholecalciferol (Vitamin D3) 10 Mcg Tablet) 10 mcg PO DAILY [facility] Last Admin: 12/07/24 09:16 Dose: 10 mcg Documented By: MARIELA Labs 12/06/24 07:14 12/06/24 07:14 Procedures Date of Service Date of Service: 12/07/24 Progress Note: A&P Assessment and plan (1) Swallowing problem: Status: Acute Assessment and Plan: He has a hiatal hernia Most of the stomach was in the chest May not be a candidate for PEG tube placement Follow-up CT scan pending May need jejunostomy tube via a small laparotomy incision Time Spent With Patient Time: Total time managing care of this patient today ____ minutes. Quality Stroke Does the patient have a stroke diagnosis?: No VTE Prior VTE?: Yes VTE Risk Level:: Medical - moderate - high VTE Device Contraindication: Treatment Not Indicated VTE Drug Contraindication: N/A - Med Ordered
[2024-12-07] MEDS: dilTIAZem HCL 50 MG/10 ML VIAL 10 MG IVPUSH ×2 (13:02→17:35)
--- NOTE | 2024-12-07 13:47 | MHC.SLORD ---
Speech Language Pathology Order Status: Pt remains NPO with meds crushed in puree. Pt has hiatal hernia and esophageal stricture; alternative nutrition planned. [facility] MBSS when pt appropriate for visualization assessment prior to recommending PO diet. COMBINING MACHINE OPERATOR, MD and RN consulted.
--- NOTE | 2024-12-07 14:21 | MHC.CM.PN ---
EMR reviewed and per MD rounds, pt is not medically cleared for discharge due to management of hypoxia, with pt currently NPO, pending G-tube placement. This CM spoke with pts daughter/HCP Brenda today to provide an update.
[2024-12-07] MEDS: dilTIAZem HCL 125 MG in 0.9 % Sodium Chloride 100 ML 10 MG IVCONT (18:06)
[2024-12-07] MEDS: OLANZapine 7.5 MG TABLET PO (20:29)
[2024-12-07] MEDS: guaiFENesin DM 200/20/10 ML 10 ML SYRUP PO (20:29)
[2024-12-07] MEDS: Nortriptyline HCl 25 MG CAPSULE 75 MG PO (20:30)
[2024-12-07] MEDS: Melatonin 3 MG TABLET 6 MG PO (20:30)
[2024-12-08] VITALS (8 sets, daily range): BP systolic 106–128; BP diastolic 69–78; PULSE 80–106; RESP 16–20; TEMP 36.2–36.9; O2SAT 94–99
[2024-12-08] MEDS: Dextrose 5 % and 0.45 % NaCl 1,000 ML 50 ML IVCONT (00:02)
[2024-12-08] MEDS: Metoprolol Tartrate 5 MG/5 ML VIAL 2.5 MG IVPUSH ×4 (03:31→21:21)
[2024-12-08] MEDS: Pantoprazole Sodium 40 MG/10 ML VIAL IVPUSH (05:42)
[2024-12-08 06:58] LABS: MANUAL DIFF FLAG NO
[2024-12-08 07:07] LABS: Basophils Percent Auto 0.2 % (0-2); Eosinophils Absolute Auto 0.1 X10*3/uL (0.0-0.4); Eosinophils Percent Auto 1.2 % (0-4); Hematocrit 32.5 % (42.0-52.0); Hemoglobin 11.3 g/dl (14.0-18.0); Imm Gran Abs Auto 0.04 X10*3/uL (0.00-0.03); Imm Gran Pct Auto 0.6 % (0.0-0.4); Lymphocytes Absolute Auto 0.8 X10*3/uL (1.2-4.9); Mean Corpuscular HGB Conc 34.8 g/dl (31.0-36.0); Mean Corpuscular Hemoglobin 33.8 pg (27.0-33.0); Mean Corpuscular Volume 97.3 fL (80.0-98.0); Mean Platelet Volume 9.2 fL (9.4-12.4); Monocytes Absolute Auto 0.4 X10*3/uL (0.1-1.2); Neutrophils Absolute Auto 5.2 x10*3/uL (2.0-8.3); Platelet Count 239 X10*3/uL (160-400); Red Blood Count 3.34 X10*6/uL (4.60-5.80); Red Cell Distribution Width 14.2 % (11.0-16.0); White Blood Count 6.5 X10*3/uL (4.8-10.8)
[2024-12-08 07:27] LABS: Blood Urea Nitrogen 10 mg/dL (9-16); Calcium 7.8 mg/dL (8.4-10.2); Creatinine Clr Calc Pharmacy 93.4; Estimated Glomerular Filt Rate > 60; Glucose Random 119 mg/dL (60-115)
[2024-12-08 07:36] LABS: Anion Gap 10 (12-20); Carbon Dioxide 27 mmol/L (22-29); Chloride 106 mmol/L (96-108); Sodium 140 mmol/L (135-145)
--- NOTE | 2024-12-08 08:09 | P.PNGS_ITS ---
Subjective Subjective Date of Service: 12/09/24 Interval history: States he has been coughing a lot Denies any abdominal pain No fever No vomiting On O2 supplementation Physical Exam 2 Vital Signs: Vital Signs: Last Vital Signs Temp 97.6 F 12/08/24 07:55 Pulse 87 12/08/24 07:55 Resp 18 12/08/24 07:55 BP 128/77 12/08/24 07:55 Pulse Ox 94 12/08/24 07:55 O2 Del Method Oxymask 12/08/24 07:55 O2 Flow Rate 5 12/08/24 07:55 BMI result Body Mass Index 27.5 Const: Other: Anxious looking, coughing Resp: Other: On O2 by face mask at 5 L per Cardio: Rate: regular rate GI: Other: No Hernandez's sign Palpation (GI): Soft to palpation, not firm, nontender and no guarding Objective Data Active Medications Acetaminophen (Acetaminophen 325 Mg Tablet) 650 mg PO Q6H PRN PRN Reason: Pain, Mild 1-3,fever,headache Apixaban (Apixaban 5 Mg Tablet) 5 mg PO BID [facility] Last Admin: 12/05/24 20:17 Dose: 5 mg Documented By: AJITH Calcium Carbonate (Calcium Carbonate 750 Mg Tab.Chew) 750 mg PO Q4H PRN PRN Reason: Heartburn Docusate Sodium (Docusate Sodium 100 Mg Capsule) 100 mg PO BID [facility] Last Admin: 12/07/24 20:00 Dose: Not Given Documented By: COLLEEN Non-Admin Reason: Diarrhea Ferrous Sulfate (Ferrous Sulfate 324 Mg Tablet.) 324 mg PO DAILY [facility] Last Admin: 12/07/24 09:16 Dose: 324 mg Documented By: MARIELA Finasteride (Finasteride 5 Mg Tablet) 5 mg PO DAILY [facility] Last Admin: 12/07/24 09:15 Dose: 5 mg Documented By: MARIELA Guaifenesin/Dextromethorphan (Guaifenesin Dm 200/20/10 Ml 10 Ml Syrup) 10 ml PO Q4H PRN PRN Reason: Cough Last Admin: 12/07/24 20:29 Dose: 10 ml Documented By: COLLEEN Dextrose/Sodium Chloride (D51/2ns) 1,000 mls @ 50 mls/hr IVCONT .Q20H [facility] Last Admin: 12/08/24 00:02 Dose: 50 mls/hr Documented By: COLLEEN Diltiazem HCl 125 mg/ Sodium (Chloride) 125 mls @ 0 mls/hr IVCONT .Q0M [facility]; Protocol Last Titration: 12/07/24 22:56 Dose: 0 mg/hr, 0 mls/hr Documented By: COLLEEN Lorazepam (Lorazepam 2 Mg/Ml Vial) 0.5 mg IVPUSH Q6H PRN PRN Reason: Anxiety Magnesium Hydroxide (Milk Of Magnesia 30 Ml Oral.Susp) 30 ml PO DAILY PRN PRN Reason: Constipation Melatonin (Melatonin 3 Mg Tablet) 6 mg PO BEDTIME [facility] Last Admin: 12/07/24 20:30 Dose: 6 mg Documented By: COLLEEN Metoprolol Tartrate (Metoprolol Tartrate 5 Mg/5 Ml Vial) 2.5 mg IVPUSH Q6H [facility]; Protocol Last Admin: 12/08/24 03:31 Dose: 2.5 mg Documented By: COLLEEN Nortriptyline HCl (Nortriptyline Hcl 25 Mg Capsule) 75 mg PO BEDTIME [facility] Last Admin: 12/07/24 20:30 Dose: 75 mg Documented By: COLLEEN Olanzapine (Olanzapine 7.5 Mg Tablet) 7.5 mg PO BEDTIME [facility] Last Admin: 12/07/24 20:29 Dose: 7.5 mg Documented By: COLLEEN Olanzapine (Olanzapine 5 Mg Tablet) 5 mg PO BID PRN PRN Reason: Anxiety Olanzapine (Olanzapine 2.5 Mg Tablet) 2.5 mg PO DAILY [facility] Ondansetron HCl (Ondansetron Odt 4 Mg Tab.Rapdis) 4 mg TRANSLINGU Q12H PRN PRN Reason: Nausea And Vomiting Last Admin: 11/29/24 21:43 Dose: 4 mg Documented By: LEWIS Oxybutynin Chloride (Oxybutynin Chloride 5 Mg Tablet) 5 mg PO DAILY [facility] Last Admin: 12/07/24 09:16 Dose: 5 mg Documented By: MARIELA Pantoprazole Sodium (Pantoprazole Sodium 40 Mg/10 Ml Vial) 40 mg IVPUSH DAILY@0630 [facility] Last Admin: 12/08/24 05:42 Dose: 40 mg Documented By: COLLEEN Polyethylene Glycol (Polyethylene Glycol 3350 17 Gm Powd.Pack) 17 gm PO DAILY [facility] Last Admin: 12/07/24 09:11 Dose: Not Given Documented By: MARIELA Non-Admin Reason: pt having diarrhea Senna (Sennosides 8.6 Mg Tablet) 8.6 mg PO BEDTIME PRN PRN Reason: Constipation Sodium Chloride (0.9 % Sodium Chloride Flush 3 Ml Syringe) 3 ml IVFLUSH QSHIFT [facility] Last Admin: 12/08/24 00:35 Dose: Not Given Documented By: COLLEEN Non-Admin Reason: Previously Administered Trazodone HCl (Trazodone Hcl 50 Mg Tablet) 50 mg PO BEDTIME MRX1 PRN PRN Reason: Sleep Last Admin: 12/05/24 20:17 Dose: 50 mg Documented By: AJITH Vitamin D (Cholecalciferol (Vitamin D3) 10 Mcg Tablet) 10 mcg PO DAILY [facility] Last Admin: 12/07/24 09:16 Dose: 10 mcg Documented By: MARIELA Labs 12/08/24 06:30 12/09/24 06:32 Labs: Laboratory Results - last 24 hr 12/08/24 06:30 MCV 97.3 MCH 33.8 H MCHC 34.8 RDW 14.2 Plt Count 239 MPV 9.2 L Immature Gran % (Auto) 0.6 H Neut % (Auto) 80.0 H Lymph % (Auto) 12.0 L Rowan % (Auto) 6.0 Eos % (Auto) 1.2 Baso % (Auto) 0.2 Lymph # (Auto) 0.8 L Rowan # (Auto) 0.4 Eos # (Auto) 0.1 Baso # (Auto) 0.0 Abs Immat Gran (auto) 0.04 H Absolute Neuts (auto) 5.2 Absolute Nucleated RBC 0.000 Nucleated RBC % (auto) 0.0 Anion Gap 10 L Estim Creat Clear Calc 93.4 Estimated GFR > 60 Random Glucose 119 H Calcium 7.8 L Procedures Date of Service Date of Service: 12/09/24 Progress Note: A&P Assessment and plan (1) Swallowing problem: Status: Acute Assessment and Plan: Has been coughing lot On O2 supplementation at 5 L per Abdomen is soft and benign Uncertain as to clinical significance of fluid collection next to the gallbladder seen on CT scan Consult IR for drainage May not be a good candidate for PEG tube in view of the hiatal hernia with stomach in the chest Options include repair/reduction of the hiatal hernia and pexy with a G-tube versus open jejunostomy tube placement Need to optimize patient for surgery in view of multiple medical issues Time Spent With Patient Time: Total time managing care of this patient today ____ minutes. Quality Stroke Does the patient have a stroke diagnosis?: No VTE Prior VTE?: Yes VTE Risk Level:: Medical - moderate - high VTE Device Contraindication: Treatment Not Indicated VTE Drug Contraindication: N/A - Med Ordered
[2024-12-08] MEDS: Finasteride 5 MG TABLET PO (09:26)
[2024-12-08] MEDS: oxyBUTYnin chloride 5 MG TABLET PO (09:26)
[2024-12-08] MEDS: Cholecalciferol (Vitamin D3) 10 MCG TABLET PO (09:26)
[2024-12-08] MEDS: 0.9 % Sodium Chloride Flush 3 ML SYRINGE IVFLUSH ×2 (09:26→16:43)
[2024-12-08] MEDS: Ferrous Sulfate 324 MG TABLET.DR PO (09:26)
[2024-12-08] MEDS: OLANZapine 2.5 MG TABLET PO (09:26)
--- NOTE | 2024-12-08 10:33 | MHC.CLN ---
RE: CONSULT PT REQUIRES PPN FOR NUTRITION SUPPORT R/T PROLONGED NPO STATUS AND PT WITH INCREASED NUTRITION NEEDS R/T PRESSURE INJURY PT PREVIOUSLY TOLERATED A PUREED DIET; FROM [facility] PENDING POSSIBLE J TUBE PLACEMENT PER MD EDEN DAY 7 NPO REVIEWED LABS DISCUSSED WITH PHARMACY RECOMMEND PPN AT 60ML/HR TO PROVIDE 734KCALS, 144G DEXTROSE, 61G PROTEIN REPLETE LYTES NEEDED SEE ALSO CLINICAL NUTRITION ASSESSMENT
[2024-12-08 11:40] LABS: Albumin Level 2.4 g/dL (3.5-5.0); Magnesium 1.7 mg/dL (1.6-2.6); Phosphorus 2.5 mg/dL (2.7-4.5)
--- NOTE | 2024-12-08 12:52 | MHC.SL.IMP ---
Date of Plan of Treatment: 12/08/24 Onset of Symptoms/Illness: 11/30/24 Date Treatment Started: 11/30/24 Admitting Diagnosis: Atrial flutter by electrocardiogram Primary Speech & Language Diagnosis: R13.12 Oropharyngeal Phase Dysphagia Secondary Speech & Language Diagnosis: R13.14 Pharyngoesophageal Phase Dysphagia Reason for Today's Visit: 90993 Modified Barium Swallow Study Pre-evaluation Dietary Consistencies: NPO Pre-evaluation Liquid Consistency: NPO Pre-evaluation Medication Administration: Crushed with Puree Medical History: Modified Barium Swallow Study Fluoroscopic Evaluation of Swallowing Function CPT Code 35662 Evaluation Year: 2024 Reason for Study: ? Aspiration Referring Physician: Leena Velasquez MD Evaluating Clinician: Skye Seo MA, [facility]-COLOR CONTROL SUPERVISOR Study Number: 1 Patient Name: José Luis Galarza Status: Inpatient, Stretcher Age: 79 Gender: Male Medical History Medical History COVID-19 vaccine administered History of electroconvulsive therapy Major depressive disorder, recurrent, severe with psychotic features Pulmonary embolism Diverticulitis of colon with perforation Hyperlipidemia HTN (hypertension) Dementia GERD (gastroesophageal reflux disease) Depression SVT (supraventricular tachycardia) Family History Brother Blood clot in vein Other No history of cardiac disorder Surgical History History of esophagogastroduodenoscopy (EGD) H/O colonoscopy Status post Paula's procedure History of colostomy reversal H/O hernia repair Current (pre-evaluation) Intake/Diet: Route: NPO/Alternate Route Pre-Study Functional Oral Intake Scale (FOIS): 1- No oral intake Pain: None reported at time of study SUBJECTIVE: Patient is an 79 year old male with history significant for prostate cancer, vertigo, GERD, hyperlipidemia, MDD and psychosis, admitted to geriatric psychiatry 11/14 for anxiety and panic attacks, undergoing ECT treatment. Patient was seen by COLOR CONTROL SUPERVISOR during salty psych stay for concerns of intermittent dysphagia, with COLOR CONTROL SUPERVISOR recommending GI workup. Patient had barium swallow x-ray 11/24 with findings suggestive of esophageal dysmotility, erosive esophagitis, retained food, moderate narrowing of the GE junction that represents achalasia or a benign stricture, large type IV paraesophageal hernia, gastritis, and duodenitis. Patient had an endoscopy with removal of esophageal foreign body ?large carrot slices in esophagus? and balloon dilation of esophageal stricture on 11/26. VALIDATION SPECIALIST was called on 11/28 for tachycardia, patient was found to have atrial flutter with RVR, also with concerns of acute hypoxic respiratory failure due to aspiration PNA, CXR 12/01 showing, ?Low lung volumes. Large hiatal hernia. Bibasilar subsegmental atelectasis.? Previous CXR on 11/29 with ?Unchanged appearance of the chest with continued hypoinflation, bibasilar consolidation, and potential small bilateral pleural effusions.? Patient exhibited overt s/s of aspiration at bedside, thus was referred for a modified barium swallow study to further evaluate. Oral Motor Exam Facial Symmetry: Symmetrical Mouth Occlusion: Normal Oral-Facial Teeth Characteristics: Edentulous, Dentures Oral-Facial Teeth Miscellaneous Observation: Top dentures Oral-Facial Lip Pucker Description: Normal Oral-Facial Smile (Lips) Description: Normal Oral-Facial Puff Cheeks Description: Normal Tongue Size: Normal Tongue Excursion Description: Normal Tongue Range of Movement Description: Normal Tongue Speed of Movement Description: Reduced Tongue Strength of Movement (against opposing pressure): Reduced Tongue Movement Characteristics: Normal/Absent Tongue Movement Miscellaneous Observation: Patient using jaw to support lateral lingual movements Is patient able to manage secretions?: Yes Is patient able to produce volitional cough?: Yes Food and Liquid Trials: Oral Impairment: Lip Closure: 1=Interlabial escape; no progression to anterior tip Oral Impairment: Tongue Control During Bolus Hold: 1=Escape to lateral buccal cavity/floor of mouth (FOM) Oral Impairment: Bolus Preparation/Mastication: Did not test Oral Impairment: Bolus Transport/Lingual Motion: 1= Delayed initiation of tongue motion Oral Impairment: Oral Residue: 2=Residue collection on oral structures Oral Impairment:Initiation of Pharyngeal Swallow: 2=Bolus head at posterior laryngeal surface of epiglottis Pharyngeal Impairment: Soft Palate Elevation: 0=No bolus between soft palate (SP)/pharyngeal wall (PW) Pharyngeal Impairment: Laryngeal Elevation: 1=Partial thyroid cartilage/arytenoids to epiglottic petiole movement Pharyngeal Impairment: Anterior Hyoid Excursion: 1=Partial anterior movement Pharyngeal Impairment: Epiglottic Movement: 2=No inversion Pharyngeal Impairment: Laryngeal Vestibular Closure:: 1=Incomplete: narrow column air/contrast in laryngeal vestibule Pharyngeal Impairment: Pharyngeal Stripping Wave: 1=Present: diminished Pharyngeal Impairment: Pharyngeal Contraction: Did not test Pharyngeal Impairment: Pharyngoesophageal Segment Openin=Partial distention/partial duration: partial obstruction of flow Pharyngeal Impairment: Tongue Base (TB) Retraction: 2=Narrow column of contrast/air between TB and posterior PW Pharyngeal Impairment: Pharyngeal Residue: 2=Collection of residue within or on pharyngeal structures Pharyngeal Impairment: Esophageal Clearance Upright Position: Did not test Impressions and Recommendations OBJECTIVE: Time-out: performed at 8:45 Evaluation Start: 8:30; Stop: 8:35 Patient Positioning: Seated 70-90 degrees Viewing Planes: LATERAL ONLY Contrast: MBSImP? Standardized Protocol using commercially prepared, standardized Barium viscosities, including: Varibar? THIN LIQUID (40% w/v, <15 cps) , Varibar? NECTAR (40% w/v, <150-450 cps) , Varibar? THIN HONEY (40% w/v, <800-1800 cps) , Varibar? PUDDING (40% w/v, <2859-5862 cps) [facility] [id number] [facility] Results: Lip closure for intraoral bolus containment resulted in interlabial escape, without progression to the anterior lip. Tongue control during bolus hold allowed bolus escape to the lateral buccal cavity/floor of mouth. Bolus preparation and mastication received the highest impairment score; solid not given due to patient safety concerns related to oral impairment. Bolus transport/lingual motion demonstrated delayed initiation of tongue motion. Oral residue was a collection on oral structures. Initiation of the pharyngeal swallow occurred as the bolus head was at the posterior laryngeal surface of the epiglottis. Soft palate elevation resulted in no bolus between the soft palate and the pharyngeal wall. Laryngeal elevation was decreased, with partial superior movement of the thyroid cartilage/partial approximation of the arytenoids to the epiglottic petiole. Anterior hyoid excursion demonstrated partial anterior movement. Epiglottic movement resulted in no inversion. Laryngeal vestibular closure was incomplete, with a narrow column of air/contrast noted within the laryngeal vestibule at the height of the swallow. Pharyngeal stripping wave was present, but diminished. Pharyngeal contraction could not be determined due to logistical reasons not related to physiologic impairment. Pharyngoesophageal segment opening demonstrated partial distension/partial duration, with partial obstruction of bolus flow. Tongue base retraction allowed a narrow column of contrast or air between the retracted tongue base and the posterior pharyngeal wall. Pharyngeal residue was a collection of residue within or on pharyngeal structures. Esophageal clearance in the upright position could not be assessed due to logistical reasons not related to physiologic impairment. Oral Impairment Score: 9 Pharyngeal Impairment Score: 11 (absence of score, component 13) Esophageal Impairment Score: --- (absence of score, component 17) Laryngeal Penetration and Aspiration: Both Penetration and Aspiration were observed in today's study. Pudding-thick Contrast entered the airway, remained above the vocal folds, and was ejected from the airway. [place]-thick Contrast entered the airway, contacted the vocal folds, and was ejected from the airway. Honey-thick Contrast entered the airway, contacted the vocal folds, and was not ejected from the airway. Thin Contrast entered the airway, passed below the vocal folds, and no effort was made to eject. ASSESSMENT: This exam was conducted by the speech pathologist and the radiologist. Patient was seated upright in a stretcher for lateral view only. He trialed thin (individual cup sips), nectar thick (individual cup sips), honey thick (individual cup sips), and puree consistencies. There was trace amount of contrast escaping to the interlabial space. Poor tongue control with pooling to the floor of mouth. Moderate amount of contrast also seen on the palate and tongue, with patient swallowing 2 times to clear the oral cavity. Posterior lingual transport was delayed. Pharyngeal swallow trigger initiated as the bolus head reached the posterior laryngeal surface of the epiglottis. No evidence of nasopharyngeal reflux. Partial laryngeal elevation with partial anterior hyoid excursion and incomplete and at times absent epiglottic inversion. There was a small amount of residue coating the tongue base with significant pooling in the valleculae and pyriforms across all consistencies. Pharyngeal retention was reduced, but not entirely cleared, with multiple dry swallows for which the patient was cued. There was subglottic aspiration with thin liquid, and no protective cough elicited. There was deep penetration at least to the vocal folds on trial of honey thick liquid, with subsequent aspiration as contrast mixed with residual thin liquid. Penetration to the vocal folds with nectar thick liquid intermittently, which cleared with cued throat clear. Penetration seen with puree above the vocal folds. Liquid Intake Recommendation: [place] Thick Liquid Intake Strategies: Small Sips, No Straws, Throat Clear, Double Swallow Dietary Recommendations: Pureed (NDD1) Medication Administration: Crushed with Puree Please contact the pharmacy regarding appropriate crushable or liquid drug formulations that are available whenever modified delivery is recommended. Compensatory Strategies Recommended: Sitting Upright (90 deg), Double Swallow, No Straw, Liquids from Cup, Liquids from Spoon, Small Bites and Sips, Rate of Ingestion Change Supervision during eating and or drinking: Total Supervision (1:1) Recommended Treatments: Compens. Strategy Educat. Recommendation for Speech Therapy: Inpatient Speech Therapy Text Comment: Intake Recommendations: Route: PO Diet Grade: Puree Liquid Consistencies: [place] Post-Study Functional Oral Intake Scale (FOIS): 5- Total oral intake of multiple consistencies requiring special preparation Patient presents with a moderate to severe oropharyngeal dysphagia, characterized by poor bolus control and slow oral phase, delayed swallow, compromised airway protection due to partial laryngeal elevation and incomplete to, at times, absent epiglottic inversion. There was significant pooling in the valleculae and pyriforms, which was reduced, but not entirely cleared on dry swallows. Aspiration seen with thin liquid and mixed media (honey with thin). There was evidence of penetration with puree and nectar thick consistencies, which cleared with cued throat clearing. Recommend start on PUREED (NDD1) diet and NECTAR THICK liquids, pills CRUSHED in PUREE. Patient did have a tendency to gulp large sips and required cues to use strategies. Patient is at elevated risk of aspiration. To maximize safety, patient must be supervised at meal time and cued for the following strategies: -eat and drink with a slow pace -take SMALL sips via teaspoon or controlled cup (pour smaller quantity into a cup) -AVOID straws -volitional throat clear after each 1-2 sips followed by a dry swallow -take SMALL bites via teaspoon -2-3 dry swallows after each bite to promote pharyngeal clearance -smaller more frequent meals throughout the day d/t esophageal impairment -provide daily oral care -maintain optimal positioning (upright at 90 degrees, OOB if possible) during and for at least 30 minutes after meals Therapy Recommendations: Speech Therapy will be continued daily while inpatient. Patient will likely need continued services after discharge. The following compensatory strategies and/or therapeutic exercises will be part of the upcoming therapy/management plan: Bolus Volume Change Rate of Ingestion Change Additional Swallow(s) per Bolus Throat Clear Prognosis for Improvement: The prognosis for the patient to meet nutritional needs by mouth is fair to poor based on degree of impairment, stimulability for treatment. Rotary Veneer Machine Operator Goals: ? The patient will tolerate the least restrictive diet with a safe/efficient swallow to maintain adequate nutrition and hydration. ? The patient and/or family will participate in further education for swallowing goals. Short Term Goals: ? Diet - The patient will tolerate a pureed diet with nectar thick liquids without signs or symptoms of penetration/aspiration 100% of the time. - The patient will participate in therapeutic PO trials with the COLOR CONTROL SUPERVISOR. ? Guidelines - The patient will comply with/recall the following guidelines/strategies 100% of the time with minimal cuing: [place]-thick Liquid, Bolus Volume Change, Rate of Ingestion Change, Additional Swallow(s) per Bolus, Effortful Swallow (used during PO intake), Throat Clear. ? Education - The patient, family, caregiver, treating work manager, nurse will verbalize/demonstrate understanding of the results of this evaluation, the above recommendations, and the swallowing guidelines. Recommended Referrals: Alternate Feeding Method Registered Dietitian Comments:Concern for patient's ability to maintain adequate nutrition/hydration due to the nature and severity of patient's dysphagia and esophageal comorbidities. He is followed by the surgical team for possible gtube versus jtube. Frequency/Duration: M-F Date Range for Service Requested: Timeline to reassess: PRN Clinician - Supplemental, Miscellaneous Communication: It is important to note MBSS objective studies are snapshots in time and Patient function might vary with factors such as time of day or concomitant medical conditions. For this reason, the final treatment plan for this patient should rest with their medical care team. Additional recommendations should be considered with the totality of the Patient in mind. Thank for the opportunity to participate in the care of this patient. If you have any questions about the content of this report, please contact the [facility] at [facility]. Education: Education regarding findings from today's study and plans for therapy were provided to Patient only through Verbal Instruction. Contact Agent Clinician/Clinical Fellow: No Supervisory Statement: N/A Speech Language Pathologist: Skye Seo M.A., [facility]-COLOR CONTROL SUPERVISOR
--- NOTE | 2024-12-08 15:20 | HO.PM.IMPN ---
Subjective Subjective Date of Service: 12/08/24 Interval History: Seen and evaluated this morning Feels little better unable to tolerate PO , had MBSS this morning no other events Review of Systems Review of Systems: Yes all other systems are reviewed and are negative Physical Exam Vital Signs: Vital Signs: Last Vital Signs Temp 97.2 F 12/08/24 11:10 Pulse 83 12/08/24 11:10 Resp 16 12/08/24 11:10 BP 116/72 12/08/24 11:10 Pulse Ox 96 12/08/24 11:10 O2 Del Method Oxymask 12/08/24 11:10 O2 Flow Rate 5 12/08/24 11:10 BMI result Body Mass Index 27.5 Const: Other: Constitutional : interactive, not in distress Cardiovascular : no JVP, no lower extremity edema Respiratory : bilateral chest movement, not in resp distress , basal crackles Gastrointestinal: soft, lax, Non tender Skin : Warm, Dry Neurological : Alert & oriented to self and place, No focal deficit Objective Data Active Medications Acetaminophen (Acetaminophen 325 Mg Tablet) 650 mg PO Q6H PRN PRN Reason: Pain, Mild 1-3,fever,headache Apixaban (Apixaban 5 Mg Tablet) 5 mg PO BID [facility] Last Admin: 12/05/24 20:17 Dose: 5 mg Documented By: AJITH Calcium Carbonate (Calcium Carbonate 750 Mg Tab.Chew) 750 mg PO Q4H PRN PRN Reason: Heartburn Docusate Sodium (Docusate Sodium 100 Mg Capsule) 100 mg PO BID [facility] Last Admin: 12/08/24 09:29 Dose: Not Given Documented By: KYLEE Non-Admin Reason: NPO Ferrous Sulfate (Ferrous Sulfate 324 Mg Tablet.Dr) 324 mg PO DAILY [facility] Last Admin: 12/08/24 09:26 Dose: 324 mg Documented By: KYLEE Finasteride (Finasteride 5 Mg Tablet) 5 mg PO DAILY [facility] Last Admin: 12/08/24 09:26 Dose: 5 mg Documented By: KYLEE Guaifenesin/Dextromethorphan (Guaifenesin Dm 200/20/10 Ml 10 Ml Syrup) 10 ml PO Q4H PRN PRN Reason: Cough Last Admin: 12/07/24 20:29 Dose: 10 ml Documented By: COLLEEN Dextrose/Sodium Chloride (D51/2ns) 1,000 mls @ 50 mls/hr IVCONT .Q20H [facility] Last Admin: 12/08/24 00:02 Dose: 50 mls/hr Documented By: COLLEEN Diltiazem HCl 125 mg/ Sodium (Chloride) 125 mls @ 0 mls/hr IVCONT .Q0M [facility]; Protocol Last Titration: 12/07/24 22:56 Dose: 0 mg/hr, 0 mls/hr Documented By: COLLEEN Nutrition (Parenteral) (Parenteral Nutrition) 1,440 mls @ 60 mls/hr IV .Q24H [facility]; Protocol Stop: 12/09/24 20:59 Lorazepam (Lorazepam 2 Mg/Ml Vial) 0.5 mg IVPUSH Q6H PRN PRN Reason: Anxiety Magnesium Hydroxide (Milk Of Magnesia 30 Ml Oral.Susp) 30 ml PO DAILY PRN PRN Reason: Constipation Melatonin (Melatonin 3 Mg Tablet) 6 mg PO BEDTIME [facility] Last Admin: 12/07/24 20:30 Dose: 6 mg Documented By: COLLEEN Metoprolol Tartrate (Metoprolol Tartrate 5 Mg/5 Ml Vial) 2.5 mg IVPUSH Q6H [facility]; Protocol Last Admin: 12/08/24 09:25 Dose: 2.5 mg Documented By: KYLEE Nortriptyline HCl (Nortriptyline Hcl 25 Mg Capsule) 75 mg PO BEDTIME [facility] Last Admin: 12/07/24 20:30 Dose: 75 mg Documented By: COLLEEN Olanzapine (Olanzapine 7.5 Mg Tablet) 7.5 mg PO BEDTIME [facility] Last Admin: 12/07/24 20:29 Dose: 7.5 mg Documented By: COLLEEN Olanzapine (Olanzapine 5 Mg Tablet) 5 mg PO BID PRN PRN Reason: Anxiety Olanzapine (Olanzapine 2.5 Mg Tablet) 2.5 mg PO DAILY [facility] Last Admin: 12/08/24 09:26 Dose: 2.5 mg Documented By: KYLEE Ondansetron HCl (Ondansetron Odt 4 Mg Tab.Rapdis) 4 mg TRANSLINGU Q12H PRN PRN Reason: Nausea And Vomiting Last Admin: 11/29/24 21:43 Dose: 4 mg Documented By: LEWIS Oxybutynin Chloride (Oxybutynin Chloride 5 Mg Tablet) 5 mg PO DAILY [facility] Last Admin: 12/08/24 09:26 Dose: 5 mg Documented By: KYLEE Pantoprazole Sodium (Pantoprazole Sodium 40 Mg/10 Ml Vial) 40 mg IVPUSH DAILY@0630 [facility] Last Admin: 12/08/24 05:42 Dose: 40 mg Documented By: COLLEEN Pharmacy Consult (Consult Rx Parenteral Nutrition Ordering) 1 each MISCELLANE DAILY PRN PRN Reason: Consult order Polyethylene Glycol (Polyethylene Glycol 3350 17 Gm Powd.Pack) 17 gm PO DAILY [facility] Last Admin: 12/08/24 09:29 Dose: Not Given Documented By: KYLEE Non-Admin Reason: NPO Senna (Sennosides 8.6 Mg Tablet) 8.6 mg PO BEDTIME PRN PRN Reason: Constipation Sodium Chloride (0.9 % Sodium Chloride Flush 3 Ml Syringe) 3 ml IVFLUSH QSHIFT [facility] Last Admin: 12/08/24 09:26 Dose: 3 ml Documented By: KYLEE Trazodone HCl (Trazodone Hcl 50 Mg Tablet) 50 mg PO BEDTIME MRX1 PRN PRN Reason: Sleep Last Admin: 12/05/24 20:17 Dose: 50 mg Documented By: AJITH Vitamin D (Cholecalciferol (Vitamin D3) 10 Mcg Tablet) 10 mcg PO DAILY [facility] Last Admin: 12/08/24 09:26 Dose: 10 mcg Documented By: KYLEE Labs 12/08/24 06:30 12/08/24 06:30 Labs: Laboratory Results - last 24 hr 12/08/24 12/08/24 06:30 10:58 MCV 97.3 MCH 33.8 H MCHC 34.8 RDW 14.2 Plt Count 239 MPV 9.2 L Immature Gran % (Auto) 0.6 H Neut % (Auto) 80.0 H Lymph % (Auto) 12.0 L Lyman % (Auto) 6.0 Eos % (Auto) 1.2 Baso % (Auto) 0.2 Lymph # (Auto) 0.8 L Lyman # (Auto) 0.4 Eos # (Auto) 0.1 Baso # (Auto) 0.0 Abs Immat Gran (auto) 0.04 H Absolute Neuts (auto) 5.2 Absolute Nucleated RBC 0.000 Nucleated RBC % (auto) 0.0 Anion Gap 10 L Estim Creat Clear Calc 93.4 Estimated GFR > 60 Random Glucose 119 H Calcium 7.8 L Phosphorus 2.5 L Magnesium 1.7 Albumin 2.4 L Assessment and Plan (1) Atrial flutter by electrocardiogram: Status: Acute Assessment and Plan: 79M PMH prostate CA, hx PE [2020] on apixaban, vertigo, GERD, HLD, MDD + psychosis admitted to geriatric psychiatry 11/14 for anxiety + panic attacks, undergoing ECT. Had endoscopy with removal of esophageal foreign body, balloon dilation of esophageal stricture, and biopsy on 11/26/24. ROLL OUT MANAGER called 11/28 for tachycardia in 150s; found to have atrial flutter with RVR; given IV metoprolol, digoxin + diltiazem and transferred to telemetry dysphagia, esophogeal stricture, type IV paraesophageal hernia s/p ballooning, ppi, CT abd Oval fluid collection just anterior to the gallbladder MIDWIFE following, MBSS done, rec NDD1 and nectar thick liquids surgry suggest IR to drain the fluids collection\gallbladder He is not a good candidate for PEG given hiatal hernia; either do major surgery for both \ place J-tube Started PPN paroxysmal AF/RVR Rate increased again to 130s restarted Cardizem IV drip DC lopressor 2.5 q6 iv, give PO Metoprolol 25 mg Q6 acute hypoxic respiratory failure due to aspiration PNA completed course- 11/28 - 12/06/24- ceftriaxone + doxycycline + flagyl wean O2 as tolerated - down to 5L today question of acute cholecystitis seen on CT of chest; US nondiagnostic; positive HIDA; completed abx course surgery appreciated, no need for intervention at this time prerenal ANDREA acute metabolic acidosis resolved after IV fluid hydration mild transaminitis likely due to PNA vs cholecytstitis; improving subclinical hyperthyroidism repeat TFTs in 4-6 wk prediabetes no insulin needed VTE ppx apixaban on hold for surgery mechanical GERD, PPI MDD, continue olanzapine, nortriptylline, trazodone prostatism, finasteride dispo eventual return to salty-psych reason for continued hospitalization:hypoxia, starting diet, PPN, pending surgical intervention (2) Abdominal fluid collection: Status: Acute (3) Dilated gallbladder: Status: Acute (4) Swallowing problem: Status: Acute Quality Stroke Does the patient have a stroke diagnosis?: No VTE Prior VTE?: Yes VTE Risk Level:: Medical - moderate - high VTE Device Contraindication: Treatment Not Indicated VTE Drug Contraindication: N/A - Med Ordered
[2024-12-08] MEDS: LORazepam 2 MG/ML VIAL 0.5 MG IVPUSH (17:52)
[2024-12-08] MEDS: iohexoL 350 MG/ML 100 ML INFUS..BTL IV (18:28)
[2024-12-08] MEDS: Melatonin 3 MG TABLET 6 MG PO (21:21)
[2024-12-08] MEDS: OLANZapine 7.5 MG TABLET PO (21:21)
[2024-12-08] MEDS: Nortriptyline HCl 25 MG CAPSULE 75 MG PO (21:21)
[2024-12-08] MEDS: Parenteral Nutrition 1,440 ML 60 ML IV (21:21)
[2024-12-09] VITALS (15 sets, daily range): BP systolic 100–146; BP diastolic 53–95; PULSE 87–112; RESP 12–24; TEMP 36.2–36.9; O2SAT 92–98
[2024-12-09] MEDS: OLANZapine 5 MG TABLET PO (01:21)
[2024-12-09] MEDS: guaiFENesin DM 200/20/10 ML 10 ML SYRUP PO ×2 (01:21→05:50)
[2024-12-09] MEDS: Metoprolol Tartrate 5 MG/5 ML VIAL 2.5 MG IVPUSH ×4 (03:55→22:26)
[2024-12-09] MEDS: Pantoprazole Sodium 40 MG/10 ML VIAL IVPUSH (05:51)
--- NOTE | 2024-12-09 10:26 | MHC.CLN ---
F/U PT REQUIRES PPN FOR NUTRITION SUPPORT R/T PROLONGED NPO STATUS AND PT WITH INCREASED NUTRITION NEEDS R/T PRESSURE INJURY PT REMAINS NPO PT S/P MBSS AND RELISH MAKER RECOMMENDING PUREED DIET WITH NT LIQ REVIEWED LABS DISCUSSED WITH PHARMACY 12/09/24 RECOMMEND INCREASING PPN TO 80ML/HR TO PROVIDE 979KCALS, 192G DEXTROSE, 82G PROTEIN CHECK TRIGS REPLETE LYTES NEEDED 12/10/24 RECOMMEND INCREASING PPN TO MAX GOAL RATE 100ML/HR WITH 112G LIPIDS TO PROVIDE 2344 TOTAL KCALS (30KCALS/KG), 240G DEXTROSE, 102G PROTEIN (1.3G/KG) REPLETE LYTES NEEDED RD CAN BE REACHED DURING OFF HOURS VIA TIGER CONNECT IF NEEDED WHEN DIET ADVANCES; GOAL WILL REDUCE PPN PO INTAKE INCREASES
[2024-12-09 10:41] LABS: Albumin Level 2.5 g/dL (3.5-5.0); Anion Gap 8 (12-20); Blood Urea Nitrogen 15 mg/dL (9-16); Calcium 8.1 mg/dL (8.4-10.2); Carbon Dioxide 28 mmol/L (22-29); Chloride 106 mmol/L (96-108); Creatinine Clr Calc Pharmacy 84.5; Estimated Glomerular Filt Rate > 60; Glucose Random 149 mg/dL (60-115); Magnesium 1.9 mg/dL (1.6-2.6); Phosphorus 2.8 mg/dL (2.7-4.5); Potassium 3.2 mmol/L (3.3-5.1); Sodium 139 mmol/L (135-145); Triglycerides 104 mg/dL (<150)
--- NOTE | 2024-12-09 11:28 | MHC.CM.PN ---
EMR REVIEWED, PER SURGICAL NOTE PLAN FOR IR DRAINAGE OF FLUID COLLECTION NEXT TO GALLBLADDER TODAY, PLAN FOR PEG TUBE PLACEMENT PRIOR TO DC WELL ONCE MORE MEDICALLY STABLE, CM WILL CONT TO FOLLOW DC NEEDS.
--- NOTE | 2024-12-09 11:41 | P.PNIM_ITS ---
Subjective Subjective Date of Service: 12/09/24 Interval History: Seen and evaluated this morning Feels anxious about where to go from here had MBSS with rec to do NDD1 Plan for gallbladder drain today no other events Review of Systems Review of Systems: Yes all other systems are reviewed and are negative Physical Exam 2 Vital Signs: Vital Signs: Last Vital Signs Temp 98.5 F 12/09/24 07:41 Pulse 100 12/09/24 07:41 Resp 20 12/09/24 07:41 BP 119/71 12/09/24 07:41 Pulse Ox 92 12/09/24 07:41 O2 Del Method Oxymask 12/09/24 07:41 O2 Flow Rate 5 12/09/24 07:41 BMI result Body Mass Index 27.5 Const: Other: Constitutional : interactive, not in distress Cardiovascular : no JVP, no lower extremity edema Respiratory : bilateral chest movement, not in resp distress , basal crackles , on O2 supplement Gastrointestinal: soft, lax, Non tender Skin : Warm, Dry Neurological : Alert & oriented to self and place, No focal deficit Objective Data Active Medications Acetaminophen (Acetaminophen 325 Mg Tablet) 650 mg PO Q6H PRN PRN Reason: Pain, Mild 1-3,fever,headache Calcium Carbonate (Calcium Carbonate 750 Mg Tab.Chew) 750 mg PO Q4H PRN PRN Reason: Heartburn Docusate Sodium (Docusate Sodium 100 Mg Capsule) 100 mg PO BID [facility] Last Admin: 12/09/24 09:34 Dose: Not Given Documented By: GBAY Non-Admin Reason: NPO Ferrous Sulfate (Ferrous Sulfate 324 Mg Tablet.) 324 mg PO DAILY [facility] Last Admin: 12/09/24 09:34 Dose: Not Given Documented By: GABY Non-Admin Reason: NPO Finasteride (Finasteride 5 Mg Tablet) 5 mg PO DAILY [facility] Last Admin: 12/09/24 09:34 Dose: Not Given Documented By: GABY Non-Admin Reason: NPO Guaifenesin/Dextromethorphan (Guaifenesin Dm 200/20/10 Ml 10 Ml Syrup) 10 ml PO Q4H PRN PRN Reason: Cough Last Admin: 12/09/24 05:50 Dose: 10 ml Documented By: COLLEEN Diltiazem HCl 125 mg/ Sodium (Chloride) 125 mls @ 0 mls/hr IVCONT .Q0M [facility]; Protocol Last Titration: 12/07/24 22:56 Dose: 0 mg/hr, 0 mls/hr Documented By: COLLEEN Nutrition (Parenteral) (Parenteral Nutrition) 1,440 mls @ 60 mls/hr IV .Q24H [facility]; Protocol Stop: 12/09/24 20:59 Last Admin: 12/08/24 21:21 Dose: 60 mls/hr Documented By: COLLEEN Nutrition (Parenteral) (Parenteral Nutrition) 1,920 mls @ 80 mls/hr IV .Q24H [facility]; Protocol Stop: 12/10/24 20:59 Lorazepam (Lorazepam 2 Mg/Ml Vial) 0.5 mg IVPUSH Q6H PRN PRN Reason: Anxiety Last Admin: 12/08/24 17:52 Dose: 0.5 mg Documented By: PAULINE Magnesium Hydroxide (Milk Of Magnesia 30 Ml Oral.Susp) 30 ml PO DAILY PRN PRN Reason: Constipation Melatonin (Melatonin 3 Mg Tablet) 6 mg PO BEDTIME [facility] Last Admin: 12/08/24 21:21 Dose: 6 mg Documented By: COLLEEN Metoprolol Tartrate (Metoprolol Tartrate 5 Mg/5 Ml Vial) 2.5 mg IVPUSH Q6H [facility]; Protocol Last Admin: 12/09/24 09:39 Dose: 2.5 mg Documented By: GABY Nortriptyline HCl (Nortriptyline Hcl 25 Mg Capsule) 75 mg PO BEDTIME [facility] Last Admin: 12/08/24 21:21 Dose: 75 mg Documented By: COLLEEN Olanzapine (Olanzapine 7.5 Mg Tablet) 7.5 mg PO BEDTIME [facility] Last Admin: 12/08/24 21:21 Dose: 7.5 mg Documented By: COLLEEN Olanzapine (Olanzapine 5 Mg Tablet) 5 mg PO BID PRN PRN Reason: Anxiety Last Admin: 12/09/24 01:21 Dose: 5 mg Documented By: COLLEEN Olanzapine (Olanzapine 2.5 Mg Tablet) 2.5 mg PO DAILY [facility] Last Admin: 12/09/24 09:34 Dose: Not Given Documented By: GABY Non-Admin Reason: NPO Ondansetron HCl (Ondansetron Odt 4 Mg Tab.Rapdis) 4 mg TRANSLINGU Q12H PRN PRN Reason: Nausea And Vomiting Last Admin: 11/29/24 21:43 Dose: 4 mg Documented By: LEWIS Oxybutynin Chloride (Oxybutynin Chloride 5 Mg Tablet) 5 mg PO DAILY [facility] Last Admin: 12/09/24 09:34 Dose: Not Given Documented By: GABY Non-Admin Reason: NPO Pharmacy Consult (Consult Rx Parenteral Nutrition Ordering) 1 each MISCELLANE DAILY PRN PRN Reason: Consult order Polyethylene Glycol (Polyethylene Glycol 3350 17 Gm Powd.Pack) 17 gm PO DAILY [facility] Last Admin: 12/09/24 09:34 Dose: Not Given Documented By: GABY Non-Admin Reason: NPO Senna (Sennosides 8.6 Mg Tablet) 8.6 mg PO BEDTIME PRN PRN Reason: Constipation Sodium Chloride (0.9 % Sodium Chloride Flush 3 Ml Syringe) 3 ml IVFLUSH QSHIFT [facility] Last Admin: 12/09/24 09:07 Dose: Not Given Documented By: GABY Non-Admin Reason: IV Running Trazodone HCl (Trazodone Hcl 50 Mg Tablet) 50 mg PO BEDTIME MRX1 PRN PRN Reason: Sleep Last Admin: 12/05/24 20:17 Dose: 50 mg Documented By: AJITH Vitamin D (Cholecalciferol (Vitamin D3) 10 Mcg Tablet) 10 mcg PO DAILY [facility] Last Admin: 12/09/24 09:34 Dose: Not Given Documented By: GABY Non-Admin Reason: NPO Labs 12/08/24 06:30 12/09/24 06:32 Labs: Laboratory Results - last 24 hr 12/08/24 12/09/24 10:58 06:32 Hold Purple Top SEE NOTE Anion Gap 8 L Estim Creat Clear Calc 84.5 Estimated GFR > 60 Random Glucose 149 H Calcium 8.1 L Phosphorus 2.5 L 2.8 Magnesium 1.7 1.9 Albumin 2.4 L 2.5 L Triglycerides 104 Assessment and Plan (1) Atrial flutter by electrocardiogram: Status: Acute (2) Abdominal fluid collection: Status: Acute (3) Dilated gallbladder: Status: Acute (4) Swallowing problem: Status: Acute (5) Atrial flutter with rapid ventricular response: Status: Acute (6) Abnormal biliary HIDA scan: Status: Acute Plan 79M PMH prostate CA, hx PE [2020] on apixaban, vertigo, GERD, HLD, MDD + psychosis admitted to geriatric psychiatry 11/14 for anxiety + panic attacks, undergoing ECT. Had endoscopy with removal of esophageal foreign body, balloon dilation of esophageal stricture, and biopsy on 11/26/24. 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 in 150s; found to have atrial flutter with RVR; given IV metoprolol, digoxin + diltiazem and transferred to telemetry dysphagia, esophogeal stricture, type IV paraesophageal hernia s/p ballooning, PPI CT abd Oval fluid collection anterior to the gallbladder with dilated GB on 12/08, had +ve HIDA scan 11/29 BULKER following, MBSS done, rec NDD1 and nectar thick liquids surgry suggest IR to drain the fluids collection\gallbladder He is not a good candidate for PEG given hiatal hernia; either do major surgery for both \ place J-tube Continue PPN To discuss surgical options with HCP paroxysmal AF/RVR Rate better controlled now on Cardizem IV drip DC lopressor 2.5 q6 iv, give PO Metoprolol 25 mg Q6 acute hypoxic respiratory failure due to aspiration PNA completed course- 11/28 - 12/06/24- ceftriaxone + doxycycline + flagyl wean O2 as tolerated - down to 5L today question of acute cholecystitis seen on CT of chest; US nondiagnostic; positive HIDA; completed abx course surgery appreciated, Drain GB prerenal ANDREA acute metabolic acidosis resolved after IV fluid hydration mild transaminitis likely due to PNA vs cholecytstitis; improving subclinical hyperthyroidism repeat TFTs in 4-6 wk prediabetes no insulin needed VTE ppx apixaban on hold for surgery mechanical GERD, PPI MDD, continue olanzapine, nortriptylline, trazodone prostatism, finasteride dispo eventual return to salty-psych reason for continued hospitalization:hypoxia, starting diet, PPN, pending surgical intervention Quality Stroke Does the patient have a stroke diagnosis?: No VTE Prior VTE?: Yes VTE Risk Level:: Medical - moderate - high VTE Device Contraindication: Treatment Not Indicated VTE Drug Contraindication: N/A - Med Ordered
[2024-12-09] MEDS: Midazolam HCl 2 MG/2 ML VIAL 1 MG IVPUSH (14:28)
[2024-12-09] MEDS: fentaNYL citrate/PF 100 MCG/2 ML VIAL 25 MCG IVPUSH (14:30)
--- NOTE | 2024-12-09 14:37 | PM.PNGS ---
Subjective Subjective Date of Service: 12/12/24 Interval history: Seen earlier denies abdominal pain no new events failed swallow eval again yesterday with barium Physical Exam Vital Signs: Vital Signs: Last Vital Signs Temp 98.2 F 12/09/24 12:00 Pulse 111 H 12/09/24 14:30 Resp 12 12/09/24 14:30 BP 146/86 H 12/09/24 14:30 Pulse Ox 97 12/09/24 14:30 O2 Del Method Nasal Cannula 12/09/24 14:30 O2 Flow Rate 4 12/09/24 14:30 BMI result Body Mass Index 27.5 Const: Other: mental status unchanged General: no acute distress Resp: Effort & Inspection: normal respiratory effort Cardio: Rate: tachycardic GI: Inspection: No distended Palpation (GI): Soft to palpation, not firm, nontender and no guarding Objective Data Active Medications Acetaminophen (Acetaminophen 325 Mg Tablet) 650 mg PO Q6H PRN PRN Reason: Pain, Mild 1-3,fever,headache Calcium Carbonate (Calcium Carbonate 750 Mg Tab.Chew) 750 mg PO Q4H PRN PRN Reason: Heartburn Docusate Sodium (Docusate Sodium 100 Mg Capsule) 100 mg PO BID [facility] Last Admin: 12/09/24 09:34 Dose: Not Given Documented By: GABY Non-Admin Reason: NPO Ferrous Sulfate (Ferrous Sulfate 324 Mg Tablet.Dr) 324 mg PO DAILY [facility] Last Admin: 12/09/24 09:34 Dose: Not Given Documented By: GABY Non-Admin Reason: NPO Finasteride (Finasteride 5 Mg Tablet) 5 mg PO DAILY [facility] Last Admin: 12/09/24 09:34 Dose: Not Given Documented By: GABY Non-Admin Reason: NPO Guaifenesin/Dextromethorphan (Guaifenesin Dm 200/20/10 Ml 10 Ml Syrup) 10 ml PO Q4H PRN PRN Reason: Cough Last Admin: 12/09/24 05:50 Dose: 10 ml Documented By: COLLEEN Diltiazem HCl 125 mg/ Sodium (Chloride) 125 mls @ 0 mls/hr IVCONT .Q0M [facility]; Protocol Last Titration: 12/07/24 22:56 Dose: 0 mg/hr, 0 mls/hr Documented By: COLLEEN Nutrition (Parenteral) (Parenteral Nutrition) 1,440 mls @ 60 mls/hr IV .Q24H [facility]; Protocol Stop: 12/09/24 20:59 Last Admin: 12/08/24 21:21 Dose: 60 mls/hr Documented By: COLLEEN Nutrition (Parenteral) (Parenteral Nutrition) 1,920 mls @ 80 mls/hr IV .Q24H [facility]; Protocol Stop: 12/10/24 20:59 Lorazepam (Lorazepam 2 Mg/Ml Vial) 0.5 mg IVPUSH Q6H PRN PRN Reason: Anxiety Last Admin: 12/08/24 17:52 Dose: 0.5 mg Documented By: PAULINE Magnesium Hydroxide (Milk Of Magnesia 30 Ml Oral.Susp) 30 ml PO DAILY PRN PRN Reason: Constipation Melatonin (Melatonin 3 Mg Tablet) 6 mg PO BEDTIME [facility] Last Admin: 12/08/24 21:21 Dose: 6 mg Documented By: COLLEEN Metoprolol Tartrate (Metoprolol Tartrate 5 Mg/5 Ml Vial) 2.5 mg IVPUSH Q6H [facility]; Protocol Last Admin: 12/09/24 09:39 Dose: 2.5 mg Documented By: GABY Nortriptyline HCl (Nortriptyline Hcl 25 Mg Capsule) 75 mg PO BEDTIME [facility] Last Admin: 12/08/24 21:21 Dose: 75 mg Documented By: COLLEEN Olanzapine (Olanzapine 7.5 Mg Tablet) 7.5 mg PO BEDTIME [facility] Last Admin: 12/08/24 21:21 Dose: 7.5 mg Documented By: COLLEEN Olanzapine (Olanzapine 5 Mg Tablet) 5 mg PO BID PRN PRN Reason: Anxiety Last Admin: 12/09/24 01:21 Dose: 5 mg Documented By: COLLEEN Olanzapine (Olanzapine 2.5 Mg Tablet) 2.5 mg PO DAILY [facility] Last Admin: 12/09/24 09:34 Dose: Not Given Documented By: GABY Non-Admin Reason: NPO Ondansetron HCl (Ondansetron Odt 4 Mg Tab.Rapdis) 4 mg TRANSLINGU Q12H PRN PRN Reason: Nausea And Vomiting Last Admin: 11/29/24 21:43 Dose: 4 mg Documented By: LEWIS Oxybutynin Chloride (Oxybutynin Chloride 5 Mg Tablet) 5 mg PO DAILY [facility] Last Admin: 12/09/24 09:34 Dose: Not Given Documented By: GABY Non-Admin Reason: NPO Pharmacy Consult (Consult Rx Parenteral Nutrition Ordering) 1 each MISCELLANE DAILY PRN PRN Reason: Consult order Polyethylene Glycol (Polyethylene Glycol 3350 17 Gm Powd.Pack) 17 gm PO DAILY [facility] Last Admin: 12/09/24 09:34 Dose: Not Given Documented By: GABY Non-Admin Reason: NPO Senna (Sennosides 8.6 Mg Tablet) 8.6 mg PO BEDTIME PRN PRN Reason: Constipation Sodium Chloride (0.9 % Sodium Chloride Flush 3 Ml Syringe) 3 ml IVFLUSH QSHIFT [facility] Last Admin: 12/09/24 09:07 Dose: Not Given Documented By: GABY Non-Admin Reason: IV Running Trazodone HCl (Trazodone Hcl 50 Mg Tablet) 50 mg PO BEDTIME MRX1 PRN PRN Reason: Sleep Last Admin: 12/05/24 20:17 Dose: 50 mg Documented By: AJITH Vitamin D (Cholecalciferol (Vitamin D3) 10 Mcg Tablet) 10 mcg PO DAILY [facility] Last Admin: 12/09/24 09:34 Dose: Not Given Documented By: GABY Non-Admin Reason: NPO Labs 12/12/24 05:54 12/12/24 05:54 Labs: Laboratory Results - last 24 hr 12/09/24 06:32 Hold Purple Top SEE NOTE Anion Gap 8 L Estim Creat Clear Calc 84.5 Estimated GFR > 60 Random Glucose 149 H Calcium 8.1 L Phosphorus 2.8 Magnesium 1.9 Albumin 2.5 L Triglycerides 104 Procedures Date of Service Date of Service: 12/12/24 Progress Note: A&P Assessment and plan (1) Swallowing problem: Status: Acute Assessment and Plan: best option for nutrition may be a jejunostomy patient not a good candidate for PEG tube placement in view of paraesophageal hernia patient also went cholecystostomy tube drain with IR in view of large fluid collection/ markedly distended gallbladder - bile does not appear infected; discussed with IR otherwise no tenderness, no Hernandez's sign, no leukocytosis continue antibiotics patient with multiple medical comorbidities, presents with significant perioperative risks especially with regards to respiratory function I had a long discussion with his healthcare proxy Brenda Amato [phone]; I explained the above to her. I reviewed the technique of jejunostomy tube placement via a small laparotomy incision. I explained the risks including but not limited to bleeding, infections, dislodgement, tube leak, bowel injury, pneumonia, stroke, VT she says that she will discuss this with the family and we will review this again on Thursday Time Spent With Patient Time: Total time managing care of this patient today ____ minutes. Quality Stroke Does the patient have a stroke diagnosis?: No VTE Prior VTE?: Yes VTE Risk Level:: Medical - moderate - high VTE Device Contraindication: Treatment Not Indicated VTE Drug Contraindication: N/A - Med Ordered
[2024-12-09] MEDS: oxyCODONE HCl Immed Release 5 MG TABLET PO (15:25)
[2024-12-09] MEDS: Acetaminophen 325 MG TABLET 650 MG PO (16:21)
[2024-12-09] MEDS: ondansetron HCL 4 MG/2 ML VIAL IVPUSH (16:21)
[2024-12-09] MEDS: 0.9 % Sodium Chloride Flush 3 ML SYRINGE IVFLUSH ×3 (16:24→22:30)
--- NOTE | 2024-12-09 17:58 | MHC.SL.SWA ---
Speech Pathologist Impression: Moderate to severe oropharyngeal dysphagia Risk of Aspiration Due to: Poor PO Intake Reduced Cognition Dysphasia Diet Status: Start on NDD1/NTL Liquid Consistency and Strategies for Safe Swallow: Liquid Intake Recommendation: Sehili Thick Liquid Intake Strategies: Small Sips No Straws Double Swallow Solid Food Consistency: Dietary Recommendations: Pureed (NDD1) Additional Modifications to Solid Foods: Recommend start on PUREED (NDD1) diet and NECTAR THICK liquids, pills CRUSHED in PUREE. Patient did have a tendency to gulp large sips and required cues to use strategies. Patient is at elevated risk of aspiration. To maximize safety, patient must be supervised at meal time and cued for the following strategies: -eat and drink with a slow pace -take SMALL sips via teaspoon or controlled cup (pour smaller quantity into a cup) -AVOID straws -volitional throat clear after each 1-2 sips followed by a dry swallow -take SMALL bites via teaspoon -2-3 dry swallows after each bite to promote pharyngeal clearance -smaller more frequent meals throughout the day d/t esophageal impairment -provide daily oral care -maintain optimal positioning (upright at 90 degrees, OOB if possible) during and for at least 30 minutes after meals Oral Medication Intake: Crushed with Puree Please contact the pharmacy regarding appropriate crushable or liquid drug formulations that are available whenever modified delivery is recommended. Compensatory Strategies and Precautions to be Taken for Safe Swallow: Sitting Upright (90 deg) Double Swallow No Straw Liquids from Cup Liquids from Spoon Small Bites and Sips Rate of Ingestion Change Supervision While Eating and Drinking for Safe Swallow: Total Supervision (1:1) Foods to Avoid: Tough or overly dry, crumbly foods Swallowing Recommended Treatments: Compens. Strategy Educat. Recommendation for Speech: Inpatient Speech Therapy Comment: Intake Recommendations: Route: PO Diet Grade: Puree Liquid Consistencies: Sehili Post-Study Functional Oral Intake Scale (FOIS): 5- Total oral intake of multiple consistencies requiring special preparation Patient presents with a moderate to severe oropharyngeal dysphagia, characterized by poor bolus control and slow oral phase, delayed swallow, compromised airway protection due to partial laryngeal elevation and incomplete to, at times, absent epiglottic inversion. There was significant pooling in the valleculae and pyriforms, which was reduced, but not entirely cleared on dry swallows. Aspiration seen with thin liquid and mixed media (honey with thin). There was evidence of penetration with puree and nectar thick consistencies, which cleared with cued throat clearing. Recommend start on PUREED (NDD1) diet and NECTAR THICK liquids, pills CRUSHED in PUREE. Patient did have a tendency to gulp large sips and required cues to use strategies. Patient is at elevated risk of aspiration. To maximize safety, patient must be supervised at meal time and cued for the following strategies: -eat and drink with a slow pace -take SMALL sips via teaspoon or controlled cup (pour smaller quantity into a cup) -AVOID straws -volitional throat clear after each 1-2 sips followed by a dry swallow -take SMALL bites via teaspoon -2-3 dry swallows after each bite to promote pharyngeal clearance -smaller more frequent meals throughout the day d/t esophageal impairment -provide daily oral care -maintain optimal positioning (upright at 90 degrees, OOB if possible) during and for at least 30 minutes after meals Therapy Recommendations: Speech Therapy will be continued daily while inpatient. Patient will likely need continued services after discharge. The following compensatory strategies and/or therapeutic exercises will be part of the upcoming therapy/management plan: Bolus Volume Change Rate of Ingestion Change Additional Swallow(s) per Bolus Throat Clear Prognosis for Improvement: The prognosis for the patient to meet nutritional needs by mouth is fair based on degree of impairment, stimulability for treatment. Senior Living Goals: ? The patient will tolerate the least restrictive diet with a safe/efficient swallow to maintain adequate nutrition and hydration. ? The patient and/or family will participate in further education for swallowing goals. Short Term Goals: ? Diet - The patient will tolerate a pureed diet with nectar thick liquids without signs or symptoms of penetration/aspiration 100% of the time. - The patient will participate in therapeutic PO trials with the HEMATOLOGIST ONCOLOGIST. ? Guidelines - The patient will comply with/recall the following guidelines/strategies 100% of the time with minimal cuing: Sehili-thick Liquid, Bolus Volume Change, Rate of Ingestion Change, Additional Swallow(s) per Bolus, Effortful Swallow (used during PO intake), Throat Clear. ? Education - The patient, family, caregiver, treating deputy jailer, nurse will verbalize/demonstrate understanding of the results of this evaluation, the above recommendations, and the swallowing guidelines. Frequency/Duration: M-F Date Range for Service Req: Timeline to reassess: PRN Manifold Builder Clinican/Clinical Fellow: No Supervisory Statement: I have reviewed and agree with the student/clinical fellow's documentation: N/A Speech Language Pathologist: Skye Seo M.A., CCC-HEMATOLOGIST ONCOLOGIST
[2024-12-09] MEDS: Parenteral Nutrition 1,920 ML 80 ML IV (21:00)
[2024-12-09] MEDS: Nortriptyline HCl 25 MG CAPSULE 75 MG PO (21:30)
[2024-12-09] MEDS: OLANZapine 7.5 MG TABLET PO (21:30)
[2024-12-09] MEDS: Melatonin 3 MG TABLET 6 MG PO (21:30)
[2024-12-10] VITALS (11 sets, daily range): BP systolic 102–121; BP diastolic 64–74; PULSE 79–119; RESP 18–24; TEMP 36.6–37.9; O2SAT 4–96
[2024-12-10] MEDS: guaiFENesin DM 200/20/10 ML 10 ML SYRUP PO (03:56)
[2024-12-10] MEDS: Metoprolol Tartrate 5 MG/5 ML VIAL 2.5 MG IVPUSH ×4 (03:56→20:57)
[2024-12-10 07:40] LABS: MANUAL DIFF FLAG NO
[2024-12-10 07:43] LABS: Basophils Percent Auto 0.1 % (0-2); Eosinophils Percent Auto 0.6 % (0-4); Hematocrit 31.6 % (42.0-52.0); Hemoglobin 10.7 g/dl (14.0-18.0); Imm Gran Abs Auto 0.03 X10*3/uL (0.00-0.03); Imm Gran Pct Auto 0.4 % (0.0-0.4); Lymphocytes Absolute Auto 0.4 X10*3/uL (1.2-4.9); Lymphocytes Percent Auto 6.2 % (20-40); Mean Corpuscular HGB Conc 33.9 g/dl (31.0-36.0); Mean Corpuscular Hemoglobin 33.4 pg (27.0-33.0); Mean Corpuscular Volume 98.8 fL (80.0-98.0); Mean Platelet Volume 9.3 fL (9.4-12.4); Monocytes Absolute Auto 0.5 X10*3/uL (0.1-1.2); Monocytes Percent Auto 6.8 % (2-11); Neutrophils Absolute Auto 6.1 x10*3/uL (2.0-8.3); Neutrophils Percent Auto 85.9 % (45-73); Platelet Count 298 X10*3/uL (160-400); Red Cell Distribution Width 14.6 % (11.0-16.0); White Blood Count 7.1 X10*3/uL (4.8-10.8)
[2024-12-10 08:03] LABS: Alanine Aminotransferase 24 U/L (0-40); Albumin Level 2.5 g/dL (3.5-5.0); Alkaline Phosphatase 111 U/L (39-117); Anion Gap 9 (12-20); Aspartate Amino Transferase 43 U/L (5-37); Bilirubin Direct < 0.2 mg/dL (0.0-0.5); Bilirubin Total 0.2 mg/dL (0.0-1.0); Blood Urea Nitrogen 26 mg/dL (9-16); Calcium 8.2 mg/dL (8.4-10.2); Carbon Dioxide 26 mmol/L (22-29); Chloride 108 mmol/L (96-108); Creatinine Clr Calc Pharmacy 79.1; Estimated Glomerular Filt Rate > 60; Glucose Random 166 mg/dL (60-115); Phosphorus 3.4 mg/dL (2.7-4.5); Potassium 3.9 mmol/L (3.3-5.1); Sodium 139 mmol/L (135-145); Total Protein 5.5 g/dL (6.5-8.0)
[2024-12-10] MEDS: 0.9 % Sodium Chloride Flush 3 ML SYRINGE IVFLUSH ×2 (09:16→16:07)
[2024-12-10] MEDS: Cholecalciferol (Vitamin D3) 10 MCG TABLET PO (09:17)
[2024-12-10] MEDS: OLANZapine 2.5 MG TABLET PO (09:17)
[2024-12-10] MEDS: oxyBUTYnin chloride 5 MG TABLET PO (09:17)
--- NOTE | 2024-12-10 09:44 | PC.NURSE ---
blood sugar 63 in am , pt NPO for EGD today , MD Velasquez aware , Glucogan 1 mg IV administered per MD order , blood sugar 93
--- NOTE | 2024-12-10 10:49 | P.PNIM_ITS ---
Subjective Subjective Date of Service: 12/10/24 Interval History: Seen and evaluated this morning Had gallbladder drain yesterday coughing not tolerating much of PO no other events Review of Systems Review of Systems: Yes all other systems are reviewed and are negative Physical Exam 2 Vital Signs: Vital Signs: Last Vital Signs Temp 97.9 F 12/10/24 06:59 Pulse 96 12/10/24 06:59 Resp 18 12/10/24 06:59 BP 103/64 12/10/24 06:59 Pulse Ox 92 12/10/24 06:59 O2 Del Method Oxymask 12/10/24 06:59 O2 Flow Rate 4 12/10/24 06:59 BMI result Body Mass Index 27.5 Const: Other: Constitutional : interactive, not in distress Cardiovascular : no JVP, no lower extremity edema Respiratory : bilateral chest movement, not in resp distress , basal crackles , on O2 supplement Gastrointestinal: soft, lax, Non tender Skin : Warm, Dry Neurological : Alert & oriented to self and place, No focal deficit Objective Data Active Medications Acetaminophen (Acetaminophen 325 Mg Tablet) 650 mg PO Q6H PRN PRN Reason: Pain, Mild 1-3,fever,headache Calcium Carbonate (Calcium Carbonate 750 Mg Tab.Chew) 750 mg PO Q4H PRN PRN Reason: Heartburn Docusate Sodium (Docusate Sodium 100 Mg Capsule) 100 mg PO BID [facility] Last Admin: 12/10/24 09:18 Dose: Not Given Documented By: CARON Non-Admin Reason: not able to swallow Ferrous Sulfate (Ferrous Sulfate 324 Mg Tablet.) 324 mg PO DAILY [facility] Last Admin: 12/10/24 09:19 Dose: Not Given Documented By: CARON Non-Admin Reason: not able to swallow Finasteride (Finasteride 5 Mg Tablet) 5 mg PO DAILY [facility] Last Admin: 12/10/24 09:17 Dose: Not Given Documented By: CARON Non-Admin Reason: notable to swallow Guaifenesin/Dextromethorphan (Guaifenesin Dm 200/20/10 Ml 10 Ml Syrup) 10 ml PO Q4H PRN PRN Reason: Cough Last Admin: 12/10/24 03:56 Dose: 10 ml Documented By: BROOKE Diltiazem HCl 125 mg/ Sodium (Chloride) 125 mls @ 0 mls/hr IVCONT .Q0M [facility]; Protocol Last Titration: 12/07/24 22:56 Dose: 0 mg/hr, 0 mls/hr Documented By: COLLEEN Nutrition (Parenteral) (Parenteral Nutrition) 1,920 mls @ 80 mls/hr IV .Q24H [facility]; Protocol Stop: 12/10/24 20:59 Last Admin: 12/09/24 21:00 Dose: 80 mls/hr Documented By: BROOKE Nutrition (Parenteral) (Parenteral Nutrition) 2,400 mls @ 100 mls/hr IV .Q24H [facility]; Protocol Stop: 12/11/24 20:59 Lorazepam (Lorazepam 2 Mg/Ml Vial) 0.5 mg IVPUSH Q6H PRN PRN Reason: Anxiety Last Admin: 12/08/24 17:52 Dose: 0.5 mg Documented By: PAULINE Magnesium Hydroxide (Milk Of Magnesia 30 Ml Oral.Susp) 30 ml PO DAILY PRN PRN Reason: Constipation Melatonin (Melatonin 3 Mg Tablet) 6 mg PO BEDTIME [facility] Last Admin: 12/09/24 21:30 Dose: 6 mg Documented By: BROOKE Metoprolol Tartrate (Metoprolol Tartrate 5 Mg/5 Ml Vial) 2.5 mg IVPUSH Q6H [facility]; Protocol Last Admin: 12/10/24 09:19 Dose: 2.5 mg Documented By: CARON Nortriptyline HCl (Nortriptyline Hcl 25 Mg Capsule) 75 mg PO BEDTIME [facility] Last Admin: 12/09/24 21:30 Dose: 75 mg Documented By: BROOKE Olanzapine (Olanzapine 7.5 Mg Tablet) 7.5 mg PO BEDTIME [facility] Last Admin: 12/09/24 21:30 Dose: 7.5 mg Documented By: BROOKE Olanzapine (Olanzapine 5 Mg Tablet) 5 mg PO BID PRN PRN Reason: Anxiety Last Admin: 12/09/24 01:21 Dose: 5 mg Documented By: COLLEEN Olanzapine (Olanzapine 2.5 Mg Tablet) 2.5 mg PO DAILY [facility] Last Admin: 12/10/24 09:17 Dose: 2.5 mg Documented By: CARON Ondansetron HCl (Ondansetron Odt 4 Mg Tab.Rapdis) 4 mg TRANSLINGU Q12H PRN PRN Reason: Nausea And Vomiting Last Admin: 11/29/24 21:43 Dose: 4 mg Documented By: LEWIS Oxybutynin Chloride (Oxybutynin Chloride 5 Mg Tablet) 5 mg PO DAILY [facility] Last Admin: 12/10/24 09:17 Dose: 5 mg Documented By: CARON Pharmacy Consult (Consult Rx Parenteral Nutrition Ordering) 1 each MISCELLANE DAILY PRN PRN Reason: Consult order Polyethylene Glycol (Polyethylene Glycol 3350 17 Gm Powd.Pack) 17 gm PO DAILY [facility] Last Admin: 12/10/24 09:18 Dose: Not Given Documented By: CARON Non-Admin Reason: not able to swallow Senna (Sennosides 8.6 Mg Tablet) 8.6 mg PO BEDTIME PRN PRN Reason: Constipation Sodium Chloride (0.9 % Sodium Chloride Flush 3 Ml Syringe) 3 ml IVFLUSH QSHIFT [facility] Last Admin: 12/10/24 09:16 Dose: 3 ml Documented By: CARON Trazodone HCl (Trazodone Hcl 50 Mg Tablet) 50 mg PO BEDTIME MRX1 PRN PRN Reason: Sleep Last Admin: 12/05/24 20:17 Dose: 50 mg Documented By: AJITH Vitamin D (Cholecalciferol (Vitamin D3) 10 Mcg Tablet) 10 mcg PO DAILY [facility] Last Admin: 12/10/24 09:17 Dose: 10 mcg Documented By: CARON Labs 12/10/24 06:54 12/10/24 06:54 Labs: Laboratory Results - last 24 hr 12/10/24 06:54 MCV 98.8 H MCH 33.4 H MCHC 33.9 RDW 14.6 Plt Count 298 MPV 9.3 L Immature Gran % (Auto) 0.4 Neut % (Auto) 85.9 H Lymph % (Auto) 6.2 L [place] % (Auto) 6.8 Eos % (Auto) 0.6 Baso % (Auto) 0.1 Lymph # (Auto) 0.4 L [place] # (Auto) 0.5 Eos # (Auto) 0.0 Baso # (Auto) 0.0 Abs Immat Gran (auto) 0.03 Absolute Neuts (auto) 6.1 Absolute Nucleated RBC 0.000 Nucleated RBC % (auto) 0.0 Anion Gap 9 L Estim Creat Clear Calc 79.1 Estimated GFR > 60 Random Glucose 166 H Calcium 8.2 L Phosphorus 3.4 Magnesium 2.0 Total Bilirubin 0.2 Direct Bilirubin < 0.2 AST 43 H ALT 24 Alkaline Phosphatase 111 Total Protein 5.5 L Albumin 2.5 L Microbiology Microbiology Results: Microbiology 12/09/24 14:50 Routine Culture - Preliminary Abscess Intra-abdominal No growth to date. Anaerobic Culture - Preliminary Culture in progress. Assessment and Plan (1) Abdominal fluid collection: Status: Acute (2) Dilated gallbladder: Status: Acute (3) Swallowing problem: Status: Acute Plan 79M PMH prostate CA, hx PE [2020] on apixaban, vertigo, GERD, HLD, MDD + psychosis admitted to geriatric psychiatry 11/14 for anxiety + panic attacks, undergoing ECT. Had endoscopy with removal of esophageal foreign body, balloon dilation of esophageal stricture, and biopsy on 11/26/24. 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 she will discuss with family and decide paroxysmal AF/RVR Rate better controlled now on Cardizem IV drip DC lopressor 2.5 q6 iv, give PO Metoprolol 25 mg Q6 acute hypoxic respiratory failure due to aspiration PNA completed course- 11/28 - 12/06/24- ceftriaxone + doxycycline + flagyl wean O2 as tolerated - down to 5L today recheck CXR acute cholecystitis seen on CT of chest; US nondiagnostic; positive HIDA; completed abx course surgery appreciated, Drain GB Drain was placed on 12/09, surgery following prerenal ANDREA acute metabolic acidosis resolved after IV fluid hydration mild transaminitis likely due to PNA vs cholecytstitis; improving subclinical hyperthyroidism repeat TFTs in 4-6 wk prediabetes no insulin needed GERD, PPI MDD, continue olanzapine, nortriptylline, trazodone prostatism, finasteride VTE ppx apixaban on hold for surgery mechanical dispo eventual return to salty-psych reason for continued hospitalization:hypoxia, starting diet, PPN, pending surgical intervention Quality Stroke Does the patient have a stroke diagnosis?: No VTE Prior VTE?: Yes VTE Risk Level:: Medical - moderate - high VTE Device Contraindication: Treatment Not Indicated VTE Drug Contraindication: N/A - Med Ordered
--- NOTE | 2024-12-10 11:22 | PC.NURSE ---
frequent nonproductive cough , Oxygan sat 83 on 4 l via NC , Oxymask applied 7 l , O2 sat 90 % , Dr Velasquez notified
--- NOTE | 2024-12-10 11:43 | PC.NURSE ---
per DR Velasquez hold po intake d/t question aspiration
[2024-12-10] MEDS: Albuterol/Iprat 2.5/0.5MG 3 ML AMPUL.NEB INHALE ×3 (12:02→19:20)
[2024-12-10] MEDS: methylPREDNISolone Sod Succ 40 MG/ML VIAL IVPUSH ×2 (12:08→21:02)
--- NOTE | 2024-12-10 12:43 | PM.EVENT ---
Event Note Date of Service: 12/10/24 Event Note: idalia drain in place draining good dark green bile material. nontender abdomen Time Spent With Patient Time: Total time managing care of this patient today ____ minutes.
--- NOTE | 2024-12-10 16:39 | PC.NURSE ---
biliary drain found removed in the patient's bed , pt reprted that he didn't touch it , notified
[2024-12-10] MEDS: Parenteral Nutrition 2,400 ML 100 ML IV (20:57)
[2024-12-11] VITALS (7 sets, daily range): BP systolic 109–140; BP diastolic 65–82; PULSE 88–103; RESP 16–22; TEMP 36.4–37; O2SAT 93–99
[2024-12-11] MEDS: Metoprolol Tartrate 5 MG/5 ML VIAL 2.5 MG IVPUSH ×4 (04:01→22:41)
[2024-12-11 07:22] LABS: Basophils Percent Auto 0.2 % (0-2); Hematocrit 32.4 % (42.0-52.0); Imm Gran Abs Auto 0.09 X10*3/uL (0.00-0.03); Imm Gran Pct Auto 0.6 % (0.0-0.4); Lymphocytes Absolute Auto 0.3 X10*3/uL (1.2-4.9); Lymphocytes Percent Auto 1.7 % (20-40); MANUAL DIFF FLAG SCAN; Mean Corpuscular Hemoglobin 33.5 pg (27.0-33.0); Mean Corpuscular Volume 98.8 fL (80.0-98.0); Mean Platelet Volume 9.8 fL (9.4-12.4); Monocytes Absolute Auto 0.3 X10*3/uL (0.1-1.2); Monocytes Percent Auto 1.8 % (2-11); Neutrophils Absolute Auto 15.6 x10*3/uL (2.0-8.3); Neutrophils Percent Auto 95.7 % (45-73); Platelet Count 343 X10*3/uL (160-400); Red Blood Count 3.28 X10*6/uL (4.60-5.80); Red Cell Distribution Width 14.5 % (11.0-16.0); SCAN SMEAR FLAG 1; White Blood Count 16.3 X10*3/uL (4.8-10.8)
[2024-12-11 07:42] LABS: SLIDE REVIEW VERIFIED
[2024-12-11 07:46] LABS: Albumin Level 2.6 g/dL (3.5-5.0); Blood Urea Nitrogen 32 mg/dL (9-16); Calcium 8.8 mg/dL (8.4-10.2); Estimated Glomerular Filt Rate > 60; Glucose Random 217 mg/dL (60-115); Phosphorus 2.1 mg/dL (2.7-4.5)
[2024-12-11 07:56] LABS: Anion Gap 12 (12-20); Carbon Dioxide 22 mmol/L (22-29); Chloride 109 mmol/L (96-108); Potassium 5.2 mmol/L (3.3-5.1); Sodium 138 mmol/L (135-145)
[2024-12-11] MEDS: 0.9 % Sodium Chloride Flush 3 ML SYRINGE IVFLUSH ×2 (09:15→17:04)
[2024-12-11] MEDS: Sodium Zirconium Cyclosilicate 10 GM POWD.PACK PO (09:15)
[2024-12-11] MEDS: methylPREDNISolone Sod Succ 40 MG/ML VIAL IVPUSH ×2 (12:43→22:36)
[2024-12-11 14:05] LABS: Alanine Aminotransferase 23 U/L (0-40); Alkaline Phosphatase 101 U/L (39-117); Aspartate Amino Transferase 36 U/L (5-37); Bilirubin Direct 0.2 mg/dL (0.0-0.5); Bilirubin Total 0.3 mg/dL (0.0-1.0); Total Protein 6.1 g/dL (6.5-8.0)
--- NOTE | 2024-12-11 15:15 | P.PNIM_ITS ---
Subjective Subjective Date of Service: 12/11/24 Interval History: Seen and evaluated this morning The GB tube was found next to him in his bed not tolerating PO WBCs increased no other events Review of Systems Review of Systems: Yes all other systems are reviewed and are negative Physical Exam 2 Vital Signs: Vital Signs: Last Vital Signs Temp 98.0 F 12/11/24 11:10 Pulse 89 12/11/24 11:10 Resp 16 12/11/24 11:10 BP 109/66 12/11/24 11:10 Pulse Ox 94 12/11/24 11:10 O2 Del Method Oxymask 12/11/24 11:10 O2 Flow Rate 5 12/11/24 11:10 BMI result Body Mass Index 27.5 Const: Other: Constitutional : interactive, not in distress Cardiovascular : no JVP, no lower extremity edema Respiratory : bilateral chest movement, not in resp distress , basal crackles , on O2 supplement Gastrointestinal: soft, lax, Non tender Skin : Warm, Dry Neurological : Alert & oriented to self and place, No focal deficit Objective Data Active Medications Acetaminophen (Acetaminophen 325 Mg Tablet) 650 mg PO Q6H PRN PRN Reason: Pain, Mild 1-3,fever,headache Albuterol/Ipratropium (Albuterol/Iprat 2.5/0.5mg 3 Ml Ampul.Neb) 3 ml INHALE RQ6H WHILE AWAKE [facility] Last Admin: 12/11/24 15:11 Dose: Not Given Documented By: CLARA Non-Admin Reason: Patient Refused Calcium Carbonate (Calcium Carbonate 750 Mg Tab.Chew) 750 mg PO Q4H PRN PRN Reason: Heartburn Docusate Sodium (Docusate Sodium 100 Mg Capsule) 100 mg PO BID [facility] Last Admin: 12/11/24 10:03 Dose: Not Given Documented By: BECKYMOSIDDHARTHA Non-Admin Reason: unable to swallow Ferrous Sulfate (Ferrous Sulfate 324 Mg Tablet.Dr) 324 mg PO DAILY [facility] Last Admin: 12/11/24 10:03 Dose: Not Given Documented By: BECKYMOSIDDHARTHA Non-Admin Reason: unable to swallow Finasteride (Finasteride 5 Mg Tablet) 5 mg PO DAILY [facility] Last Admin: 12/11/24 10:03 Dose: Not Given Documented By: YAKELIN Non-Admin Reason: unable to swallow Guaifenesin/Dextromethorphan (Guaifenesin Dm 200/20/10 Ml 10 Ml Syrup) 10 ml PO Q4H PRN PRN Reason: Cough Last Admin: 12/10/24 03:56 Dose: 10 ml Documented By: BROOKE Diltiazem HCl 125 mg/ Sodium (Chloride) 125 mls @ 0 mls/hr IVCONT .Q0M [facility]; Protocol Last Titration: 12/07/24 22:56 Dose: 0 mg/hr, 0 mls/hr Documented By: COLLEEN Nutrition (Parenteral) (Parenteral Nutrition) 2,400 mls @ 100 mls/hr IV .Q24H [facility]; Protocol Stop: 12/11/24 20:59 Last Admin: 12/10/24 20:57 Dose: 100 mls/hr Documented By: KESHAWN Nutrition (Parenteral) (Parenteral Nutrition) 2,400 mls @ 100 mls/hr IV .Q24H [facility]; Protocol Stop: 12/12/24 20:59 Lorazepam (Lorazepam 2 Mg/Ml Vial) 0.5 mg IVPUSH Q6H PRN PRN Reason: Anxiety Last Admin: 12/08/24 17:52 Dose: 0.5 mg Documented By: PAULINE Magnesium Hydroxide (Milk Of Magnesia 30 Ml Oral.Susp) 30 ml PO DAILY PRN PRN Reason: Constipation Melatonin (Melatonin 3 Mg Tablet) 6 mg PO BEDTIME [facility] Last Admin: 12/10/24 20:54 Dose: Not Given Documented By: KESHAWN Non-Admin Reason: npo Methylprednisolone Sodium Succinate (Methylprednisolone Sod Succ 40 Mg/Ml Vial) 40 mg IVPUSH Q12H [facility] Last Admin: 12/11/24 12:43 Dose: 40 mg Documented By: BECKYMORP Metoprolol Tartrate (Metoprolol Tartrate 5 Mg/5 Ml Vial) 2.5 mg IVPUSH Q6H [facility]; Protocol Last Admin: 12/11/24 10:09 Dose: 2.5 mg Documented By: PODMORP Nortriptyline HCl (Nortriptyline Hcl 25 Mg Capsule) 75 mg PO BEDTIME [facility] Last Admin: 12/10/24 20:54 Dose: Not Given Documented By: KESHAWN Non-Admin Reason: npo Olanzapine (Olanzapine 7.5 Mg Tablet) 7.5 mg PO BEDTIME [facility] Last Admin: 12/10/24 20:54 Dose: Not Given Documented By: KESHAWN Non-Admin Reason: npo Olanzapine (Olanzapine 5 Mg Tablet) 5 mg PO BID PRN PRN Reason: Anxiety Last Admin: 12/09/24 01:21 Dose: 5 mg Documented By: COLLEEN Olanzapine (Olanzapine 2.5 Mg Tablet) 2.5 mg PO DAILY [facility] Last Admin: 12/11/24 10:04 Dose: Not Given Documented By: YAKELIN Non-Admin Reason: unable to swallow Ondansetron HCl (Ondansetron Odt 4 Mg Tab.Rapdis) 4 mg TRANSLINGU Q12H PRN PRN Reason: Nausea And Vomiting Last Admin: 11/29/24 21:43 Dose: 4 mg Documented By: LEWIS Oxybutynin Chloride (Oxybutynin Chloride 5 Mg Tablet) 5 mg PO DAILY [facility] Last Admin: 12/11/24 10:04 Dose: Not Given Documented By: YAKELIN Non-Admin Reason: unable to swallow Pharmacy Consult (Consult Rx Parenteral Nutrition Ordering) 1 each MISCELLANE DAILY PRN PRN Reason: Consult order Polyethylene Glycol (Polyethylene Glycol 3350 17 Gm Powd.Pack) 17 gm PO DAILY [facility] Last Admin: 12/11/24 10:04 Dose: Not Given Documented By: BECKYMOSIDDHARTHA Non-Admin Reason: unable to swallow Senna (Sennosides 8.6 Mg Tablet) 8.6 mg PO BEDTIME PRN PRN Reason: Constipation Sodium Chloride (0.9 % Sodium Chloride Flush 3 Ml Syringe) 3 ml IVFLUSH QSHIFT [facility] Last Admin: 12/11/24 09:15 Dose: 3 ml Documented By: YAKELIN Trazodone HCl (Trazodone Hcl 50 Mg Tablet) 50 mg PO BEDTIME MRX1 PRN PRN Reason: Sleep Last Admin: 12/05/24 20:17 Dose: 50 mg Documented By: AJITH Vitamin D (Cholecalciferol (Vitamin D3) 10 Mcg Tablet) 10 mcg PO DAILY [facility] Last Admin: 12/11/24 10:04 Dose: Not Given Documented By: BECKYMORP Non-Admin Reason: unable to swallow Labs 12/11/24 06:00 12/11/24 06:00 Labs: Laboratory Results - last 24 hr 12/11/24 06:00 MCV 98.8 H MCH 33.5 H MCHC 34.0 RDW 14.5 Plt Count 343 MPV 9.8 Immature Gran % (Auto) 0.6 H Neut % (Auto) 95.7 H Lymph % (Auto) 1.7 L [place] % (Auto) 1.8 L Eos % (Auto) 0.0 Baso % (Auto) 0.2 Lymph # (Auto) 0.3 L [place] # (Auto) 0.3 Eos # (Auto) 0.0 Baso # (Auto) 0.0 Abs Immat Gran (auto) 0.09 H Absolute Neuts (auto) 15.6 H Absolute Nucleated RBC 0.000 Nucleated RBC % (auto) 0.0 Smear Tech's Comments VERIFIED Anion Gap 12 Estim Creat Clear Calc 92.0 Estimated GFR > 60 Random Glucose 217 H Calcium 8.8 D Phosphorus 2.1 L Magnesium 2.0 Total Bilirubin 0.3 Direct Bilirubin 0.2 AST 36 ALT 23 Alkaline Phosphatase 101 Total Protein 6.1 L Albumin 2.6 L Microbiology Microbiology Results: Microbiology 12/09/24 14:50 Gram Stain - Final Abscess Intra-abdominal Routine Culture - Preliminary No growth to date. Anaerobic Culture - Preliminary Culture in progress. Assessment and Plan (1) Abdominal fluid collection: Status: Acute (2) Dilated gallbladder: Status: Acute (3) Swallowing problem: Status: Acute (4) Atrial flutter with rapid ventricular response: Status: Acute Plan 79M PMH prostate CA, hx PE [2020] on apixaban, vertigo, GERD, HLD, MDD + psychosis admitted to geriatric psychiatry 11/14 for anxiety + panic attacks, undergoing ECT. Had endoscopy with removal of esophageal foreign body, balloon dilation of esophageal stricture, and biopsy on 11/26/24. 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, MBSS done, rec NDD1 and nectar thick liquids He is not a good candidate for PEG given hiatal hernia; likely to place J-tube Continue PPN discussed surgical options with HCP, she is ok with J-tube placement acute cholecystitis seen on CT of chest; US nondiagnostic; positive HIDA; completed abx course surgery appreciated, Drain GB Drain was placed on 12/09, found next to the patient on 12/10 after draining total of 400cc or so LFT stable, to monitor surgery following, consider repeat CT if worsens paroxysmal AF/RVR Rate better controlled now on Cardizem IV drip DC lopressor 2.5 q6 iv, give PO Metoprolol 25 mg Q6 Lovenox 90mg Q12 Hold Eliquis acute hypoxic respiratory failure due to aspiration PNA completed course- 11/28 - 12/06/24- ceftriaxone + doxycycline + flagyl wean O2 as tolerated - down to 5L today recheck CXR prerenal ANDREA acute metabolic acidosis resolved after IV fluid hydration mild transaminitis likely due to PNA vs cholecytstitis; improving subclinical hyperthyroidism repeat TFTs in 4-6 wk prediabetes no insulin needed GERD, PPI MDD, continue olanzapine, nortriptylline, trazodone prostatism, finasteride VTE ppx apixaban on hold for surgery, on Lovenox full dose mechanical dispo eventual return to salty-psych ACP: Goals of care discussed as well with HCP. she discussed with family and decided to change his status to DNR\DNI for now. reason for continued hospitalization:hypoxia, starting diet, PPN, pending surgical intervention Quality Stroke Does the patient have a stroke diagnosis?: No VTE Prior VTE?: Yes VTE Risk Level:: Medical - moderate - high VTE Device Contraindication: Treatment Not Indicated VTE Drug Contraindication: N/A - Med Ordered
--- NOTE | 2024-12-11 15:51 | PM.PNGS ---
Subjective Subjective Date of Service: 12/11/24 Interval history: Patient denying any abdominal pain saying that he does not want anymore treatment he is tired and he is done Physical Exam Vital Signs: Vital Signs: Last Vital Signs Temp 98.0 F 12/11/24 11:10 Pulse 89 12/11/24 11:10 Resp 16 12/11/24 11:10 BP 109/66 12/11/24 11:10 Pulse Ox 94 12/11/24 11:10 O2 Del Method Oxymask 12/11/24 11:10 O2 Flow Rate 5 12/11/24 11:10 BMI result Body Mass Index 27.5 Const: General: cooperative GI: Other: Abdomen is soft nondistended nontender CED drain site in the right upper quadrant is closed no staining of bile Objective Data Active Medications Acetaminophen (Acetaminophen 325 Mg Tablet) 650 mg PO Q6H PRN PRN Reason: Pain, Mild 1-3,fever,headache Albuterol/Ipratropium (Albuterol/Iprat 2.5/0.5mg 3 Ml Ampul.Neb) 3 ml INHALE RQ6H WHILE AWAKE [facility] Last Admin: 12/11/24 15:11 Dose: Not Given Documented By: CLARA Non-Admin Reason: Patient Refused Calcium Carbonate (Calcium Carbonate 750 Mg Tab.Chew) 750 mg PO Q4H PRN PRN Reason: Heartburn Docusate Sodium (Docusate Sodium 100 Mg Capsule) 100 mg PO BID [facility] Last Admin: 12/11/24 10:03 Dose: Not Given Documented By: BECKYMORP Non-Admin Reason: unable to swallow Enoxaparin Sodium (Enoxaparin Sodium 100 Mg/Ml Syringe) 90 mg SUBCUT Q12H [facility] Ferrous Sulfate (Ferrous Sulfate 324 Mg Tablet.Dr) 324 mg PO DAILY [facility] Last Admin: 12/11/24 10:03 Dose: Not Given Documented By: BECKYMORP Non-Admin Reason: unable to swallow Finasteride (Finasteride 5 Mg Tablet) 5 mg PO DAILY [facility] Last Admin: 12/11/24 10:03 Dose: Not Given Documented By: BECKYMORP Non-Admin Reason: unable to swallow Guaifenesin/Dextromethorphan (Guaifenesin Dm 200/20/10 Ml 10 Ml Syrup) 10 ml PO Q4H PRN PRN Reason: Cough Last Admin: 12/10/24 03:56 Dose: 10 ml Documented By: BROOKE Diltiazem HCl 125 mg/ Sodium (Chloride) 125 mls @ 0 mls/hr IVCONT .Q0M [facility]; Protocol Last Titration: 12/07/24 22:56 Dose: 0 mg/hr, 0 mls/hr Documented By: COLLEEN Nutrition (Parenteral) (Parenteral Nutrition) 2,400 mls @ 100 mls/hr IV .Q24H [facility]; Protocol Stop: 12/11/24 20:59 Last Admin: 12/10/24 20:57 Dose: 100 mls/hr Documented By: KESHAWN Nutrition (Parenteral) (Parenteral Nutrition) 2,400 mls @ 100 mls/hr IV .Q24H [facility]; Protocol Stop: 12/12/24 20:59 Lorazepam (Lorazepam 2 Mg/Ml Vial) 0.5 mg IVPUSH Q6H PRN PRN Reason: Anxiety Last Admin: 12/08/24 17:52 Dose: 0.5 mg Documented By: PAULINE Magnesium Hydroxide (Milk Of Magnesia 30 Ml Oral.Susp) 30 ml PO DAILY PRN PRN Reason: Constipation Melatonin (Melatonin 3 Mg Tablet) 6 mg PO BEDTIME [facility] Last Admin: 12/10/24 20:54 Dose: Not Given Documented By: KESHAWN Non-Admin Reason: npo Methylprednisolone Sodium Succinate (Methylprednisolone Sod Succ 40 Mg/Ml Vial) 40 mg IVPUSH Q12H [facility] Last Admin: 12/11/24 12:43 Dose: 40 mg Documented By: BECKYMORP Metoprolol Tartrate (Metoprolol Tartrate 5 Mg/5 Ml Vial) 2.5 mg IVPUSH Q6H [facility]; Protocol Last Admin: 12/11/24 10:09 Dose: 2.5 mg Documented By: BECKYMORP Nortriptyline HCl (Nortriptyline Hcl 25 Mg Capsule) 75 mg PO BEDTIME [facility] Last Admin: 12/10/24 20:54 Dose: Not Given Documented By: KESHAWN Non-Admin Reason: npo Olanzapine (Olanzapine 7.5 Mg Tablet) 7.5 mg PO BEDTIME [facility] Last Admin: 12/10/24 20:54 Dose: Not Given Documented By: KESHAWN Non-Admin Reason: npo Olanzapine (Olanzapine 5 Mg Tablet) 5 mg PO BID PRN PRN Reason: Anxiety Last Admin: 12/09/24 01:21 Dose: 5 mg Documented By: COLLEEN Olanzapine (Olanzapine 2.5 Mg Tablet) 2.5 mg PO DAILY [facility] Last Admin: 12/11/24 10:04 Dose: Not Given Documented By: BECKYMOSIDDHARTHA Non-Admin Reason: unable to swallow Ondansetron HCl (Ondansetron Odt 4 Mg Tab.Rapdis) 4 mg TRANSLINGU Q12H PRN PRN Reason: Nausea And Vomiting Last Admin: 11/29/24 21:43 Dose: 4 mg Documented By: LEWIS Oxybutynin Chloride (Oxybutynin Chloride 5 Mg Tablet) 5 mg PO DAILY [facility] Last Admin: 12/11/24 10:04 Dose: Not Given Documented By: YAKELIN Non-Admin Reason: unable to swallow Pharmacy Consult (Consult Rx Parenteral Nutrition Ordering) 1 each MISCELLANE DAILY PRN PRN Reason: Consult order Polyethylene Glycol (Polyethylene Glycol 3350 17 Gm Powd.Pack) 17 gm PO DAILY [facility] Last Admin: 12/11/24 10:04 Dose: Not Given Documented By: BECKYMOSIDDHARTHA Non-Admin Reason: unable to swallow Senna (Sennosides 8.6 Mg Tablet) 8.6 mg PO BEDTIME PRN PRN Reason: Constipation Sodium Chloride (0.9 % Sodium Chloride Flush 3 Ml Syringe) 3 ml IVFLUSH QSHIFT [facility] Last Admin: 12/11/24 09:15 Dose: 3 ml Documented By: YAKELIN Trazodone HCl (Trazodone Hcl 50 Mg Tablet) 50 mg PO BEDTIME MRX1 PRN PRN Reason: Sleep Last Admin: 12/05/24 20:17 Dose: 50 mg Documented By: AJITH Vitamin D (Cholecalciferol (Vitamin D3) 10 Mcg Tablet) 10 mcg PO DAILY [facility] Last Admin: 12/11/24 10:04 Dose: Not Given Documented By: YAKELIN Non-Admin Reason: unable to swallow Labs 12/11/24 06:00 12/11/24 06:00 Labs: Laboratory Results - last 24 hr 12/11/24 06:00 MCV 98.8 H MCH 33.5 H MCHC 34.0 RDW 14.5 Plt Count 343 MPV 9.8 Immature Gran % (Auto) 0.6 H Neut % (Auto) 95.7 H Lymph % (Auto) 1.7 L [place] % (Auto) 1.8 L Eos % (Auto) 0.0 Baso % (Auto) 0.2 Lymph # (Auto) 0.3 L [place] # (Auto) 0.3 Eos # (Auto) 0.0 Baso # (Auto) 0.0 Abs Immat Gran (auto) 0.09 H Absolute Neuts (auto) 15.6 H Absolute Nucleated RBC 0.000 Nucleated RBC % (auto) 0.0 Smear Tech's Comments VERIFIED Anion Gap 12 Estim Creat Clear Calc 92.0 Estimated GFR > 60 Random Glucose 217 H Calcium 8.8 D Phosphorus 2.1 L Magnesium 2.0 Total Bilirubin 0.3 Direct Bilirubin 0.2 AST 36 ALT 23 Alkaline Phosphatase 101 Total Protein 6.1 L Albumin 2.6 L Microbiology Microbiology Results: Microbiology 12/09/24 14:50 Gram Stain - Final Abscess Intra-abdominal Routine Culture - Preliminary No growth to date. Anaerobic Culture - Preliminary Culture in progress. Procedures Date of Service Date of Service: 12/11/24 Progress Note: A&P Assessment and plan (1) Dilated gallbladder: Status: Acute Assessment and Plan: Patient had distended gallbladder and 2 days ago had cholecystostomy tube placed. I saw yesterday and it had moderate bile material in the CED drain and the drain was tucked away and the drain secured well at the skin. Apparently yesterday afternoon evening patient may have been confused and pulled out the drain. It was found in the bed next to him. He denied any abdominal pain any nausea vomiting. No fevers or chills. His white count did go up but his LFTs continue to do well. His exam is benign. He says he does not want to have any further treatments or interventions. This was discussed with the medical team who will discuss next step of care with his family members. Observation for now Time Spent With Patient Time: Total time managing care of this patient today ____ minutes. Quality Stroke Does the patient have a stroke diagnosis?: No VTE Prior VTE?: Yes VTE Risk Level:: Medical - moderate - high VTE Device Contraindication: Treatment Not Indicated VTE Drug Contraindication: N/A - Med Ordered
[2024-12-11] MEDS: Parenteral Nutrition 2,400 ML 100 ML IV (22:31)
[2024-12-11] MEDS: Enoxaparin Sodium 100 MG/ML SYRINGE 90 MG SUBCUT (22:36)
[2024-12-11] MEDS: Nortriptyline HCl 25 MG CAPSULE 75 MG PO (22:49)
[2024-12-11] MEDS: Melatonin 3 MG TABLET 6 MG PO (22:50)
[2024-12-11] MEDS: OLANZapine 7.5 MG TABLET PO (22:50)
[2024-12-12] VITALS (9 sets, daily range): BP systolic 103–150; BP diastolic 64–83; PULSE 94–102; RESP 18–20; TEMP 36.1–37.6; O2SAT 92–97
[2024-12-12] MEDS: 0.9 % Sodium Chloride Flush 3 ML SYRINGE IVFLUSH ×3 (03:41→18:09)
[2024-12-12 06:12] LABS: Basophils Percent Auto 0.1 % (0-2); Hematocrit 33.6 % (42.0-52.0); Hemoglobin 11.3 g/dl (14.0-18.0); Imm Gran Abs Auto 0.06 X10*3/uL (0.00-0.03); Imm Gran Pct Auto 0.5 % (0.0-0.4); Lymphocytes Absolute Auto 0.3 X10*3/uL (1.2-4.9); Lymphocytes Percent Auto 2.6 % (20-40); MANUAL DIFF FLAG SCAN; Mean Corpuscular HGB Conc 33.6 g/dl (31.0-36.0); Mean Corpuscular Hemoglobin 33.2 pg (27.0-33.0); Mean Corpuscular Volume 98.8 fL (80.0-98.0); Mean Platelet Volume 9.3 fL (9.4-12.4); Monocytes Absolute Auto 0.4 X10*3/uL (0.1-1.2); Monocytes Percent Auto 3.2 % (2-11); Neutrophils Absolute Auto 12.1 x10*3/uL (2.0-8.3); Neutrophils Percent Auto 93.6 % (45-73); Platelet Count 342 X10*3/uL (160-400); Red Cell Distribution Width 14.6 % (11.0-16.0); SCAN SMEAR FLAG 1; White Blood Count 12.9 X10*3/uL (4.8-10.8)
[2024-12-12 06:25] LABS: Alanine Aminotransferase 36 U/L (0-40); Albumin Level 2.8 g/dL (3.5-5.0); Alkaline Phosphatase 112 U/L (39-117); Anion Gap 12 (12-20); Aspartate Amino Transferase 56 U/L (5-37); Bilirubin Direct 0.2 mg/dL (0.0-0.5); Bilirubin Total 0.3 mg/dL (0.0-1.0); Blood Urea Nitrogen 24 mg/dL (9-16); Calcium 8.6 mg/dL (8.4-10.2); Carbon Dioxide 23 mmol/L (22-29); Chloride 107 mmol/L (96-108); Estimated Glomerular Filt Rate > 60; Glucose Random 134 mg/dL (60-115); Magnesium 2.1 mg/dL (1.6-2.6); Phosphorus 3.7 mg/dL (2.7-4.5); Potassium 5.5 mmol/L (3.3-5.1); Sodium 136 mmol/L (135-145); Total Protein 6.4 g/dL (6.5-8.0)
[2024-12-12 07:09] LABS: SLIDE REVIEW VERIFIED
[2024-12-12] MEDS: Albuterol/Iprat 2.5/0.5MG 3 ML AMPUL.NEB INHALE ×2 (08:01→15:21)
[2024-12-12] MEDS: OLANZapine 2.5 MG TABLET PO (09:30)
[2024-12-12] MEDS: Enoxaparin Sodium 100 MG/ML SYRINGE 90 MG SUBCUT (09:30)
[2024-12-12] MEDS: Metoprolol Tartrate 5 MG/5 ML VIAL 2.5 MG IVPUSH (09:35)
--- NOTE | 2024-12-12 09:56 | MHC.CLN ---
F/U PT REQUIRES PPN FOR NUTRITION SUPPORT R/T PROLONGED NPO STATUS AND PT WITH INCREASED NUTRITION NEEDS R/T PRESSURE INJURY PT REMAINS NPO PT S/P MBSS AND DOORKEEPER RECOMMENDING PUREED DIET WITH NT LIQ REVIEWED LABS DISCUSSED WITH PHARMACY CONTINUE PPN AT MAX GOAL RATE 100ML/HR WITH 112G LIPIDS PROVIDES 2344 TOTAL KCALS (30KCALS/KG), 240G DEXTROSE, 102G PROTEIN (1.3G/KG) REPLETE LYTES NEEDED WHEN DIET ADVANCES; GOAL WILL REDUCE PPN PO INTAKE INCREASES
--- NOTE | 2024-12-12 10:54 | P.PNGS_ITS ---
Subjective Subjective Date of Service: 12/13/24 Interval history: Events over the weekend reviewed Cholecystostomy tube pulled out inadvertently He denies any abdominal pain Physical Exam 2 Vital Signs: Vital Signs: Last Vital Signs Temp 98.4 F 12/12/24 07:49 Pulse 102 H 12/12/24 08:03 Resp 18 12/12/24 08:03 BP 104/65 12/12/24 07:49 Pulse Ox 93 12/12/24 07:49 O2 Del Method Room Air 12/12/24 07:49 O2 Flow Rate 6 12/12/24 03:49 BMI result Body Mass Index 27.5 Const: Other: Appears mildly short of breath General: comfortable Resp: Other: On supplemental O2 via mask Cardio: Rhythm: regular rhythm GI: Other: No obvious surgical scars Palpation (GI): Soft to palpation, not firm, nontender and no guarding Objective Data Active Medications Acetaminophen (Acetaminophen 325 Mg Tablet) 650 mg PO Q6H PRN PRN Reason: Pain, Mild 1-3,fever,headache Albuterol/Ipratropium (Albuterol/Iprat 2.5/0.5mg 3 Ml Ampul.Neb) 3 ml INHALE RQ6H WHILE AWAKE [facility] Last Admin: 12/12/24 08:01 Dose: 3 ml Documented By: CAMERON Calcium Carbonate (Calcium Carbonate 750 Mg Tab.Chew) 750 mg PO Q4H PRN PRN Reason: Heartburn Docusate Sodium (Docusate Sodium 100 Mg Capsule) 100 mg PO BID [facility] Last Admin: 12/12/24 09:33 Dose: Not Given Documented By: JAMAR Non-Admin Reason: NPO Enoxaparin Sodium (Enoxaparin Sodium 100 Mg/Ml Syringe) 90 mg SUBCUT Q12H [facility] Last Admin: 12/12/24 09:30 Dose: 90 mg Documented By: JAMAR Ferrous Sulfate (Ferrous Sulfate 324 Mg Tablet.) 324 mg PO DAILY [facility] Last Admin: 12/12/24 09:33 Dose: Not Given Documented By: JAMAR Non-Admin Reason: NPO Finasteride (Finasteride 5 Mg Tablet) 5 mg PO DAILY [facility] Last Admin: 12/12/24 09:33 Dose: Not Given Documented By: JAMAR Non-Admin Reason: NPO Guaifenesin/Dextromethorphan (Guaifenesin Dm 200/20/10 Ml 10 Ml Syrup) 10 ml PO Q4H PRN PRN Reason: Cough Last Admin: 12/10/24 03:56 Dose: 10 ml Documented By: BROOKE Diltiazem HCl 125 mg/ Sodium (Chloride) 125 mls @ 0 mls/hr IVCONT .Q0M [facility]; Protocol Last Titration: 12/07/24 22:56 Dose: 0 mg/hr, 0 mls/hr Documented By: COLLEEN Nutrition (Parenteral) (Parenteral Nutrition) 2,400 mls @ 100 mls/hr IV .Q24H [facility]; Protocol Stop: 12/12/24 20:59 Last Admin: 12/11/24 22:31 Dose: 100 mls/hr Documented By: ISHAN Nutrition (Parenteral) (Parenteral Nutrition) 2,400 mls @ 100 mls/hr IV .Q24H [facility]; Protocol Stop: 12/13/24 20:59 Lorazepam (Lorazepam 2 Mg/Ml Vial) 0.5 mg IVPUSH Q6H PRN PRN Reason: Anxiety Last Admin: 12/08/24 17:52 Dose: 0.5 mg Documented By: PAULINE Magnesium Hydroxide (Milk Of Magnesia 30 Ml Oral.Susp) 30 ml PO DAILY PRN PRN Reason: Constipation Melatonin (Melatonin 3 Mg Tablet) 6 mg PO BEDTIME [facility] Last Admin: 12/11/24 22:50 Dose: 6 mg Documented By: ISHAN Methylprednisolone Sodium Succinate (Methylprednisolone Sod Succ 40 Mg/Ml Vial) 40 mg IVPUSH Q12H [facility] Last Admin: 12/11/24 22:36 Dose: 40 mg Documented By: ISHAN Metoprolol Tartrate (Metoprolol Tartrate 5 Mg/5 Ml Vial) 2.5 mg IVPUSH Q6H [facility]; Protocol Last Admin: 12/12/24 09:35 Dose: 2.5 mg Documented By: JAMAR Nortriptyline HCl (Nortriptyline Hcl 25 Mg Capsule) 75 mg PO BEDTIME [facility] Last Admin: 12/11/24 22:49 Dose: 75 mg Documented By: ISHAN Olanzapine (Olanzapine 7.5 Mg Tablet) 7.5 mg PO BEDTIME [facility] Last Admin: 12/11/24 22:50 Dose: 7.5 mg Documented By: ISHAN Olanzapine (Olanzapine 5 Mg Tablet) 5 mg PO BID PRN PRN Reason: Anxiety Last Admin: 12/09/24 01:21 Dose: 5 mg Documented By: COLLEEN Olanzapine (Olanzapine 2.5 Mg Tablet) 2.5 mg PO DAILY [facility] Last Admin: 12/12/24 09:30 Dose: 2.5 mg Documented By: JAMAR Ondansetron HCl (Ondansetron Odt 4 Mg Tab.Rapdis) 4 mg TRANSLINGU Q12H PRN PRN Reason: Nausea And Vomiting Last Admin: 11/29/24 21:43 Dose: 4 mg Documented By: LEWIS Oxybutynin Chloride (Oxybutynin Chloride 5 Mg Tablet) 5 mg PO DAILY [facility] Last Admin: 12/12/24 09:33 Dose: Not Given Documented By: JAMAR Non-Admin Reason: NPO Pharmacy Consult (Consult Rx Parenteral Nutrition Ordering) 1 each MISCELLANE DAILY PRN PRN Reason: Consult order Polyethylene Glycol (Polyethylene Glycol 3350 17 Gm Powd.Pack) 17 gm PO DAILY [facility] Last Admin: 12/12/24 09:34 Dose: Not Given Documented By: JAMAR Non-Admin Reason: NPO Senna (Sennosides 8.6 Mg Tablet) 8.6 mg PO BEDTIME PRN PRN Reason: Constipation Sodium Chloride (0.9 % Sodium Chloride Flush 3 Ml Syringe) 3 ml IVFLUSH QSHIFT [facility] Last Admin: 12/12/24 09:33 Dose: 3 ml Documented By: JAMAR Trazodone HCl (Trazodone Hcl 50 Mg Tablet) 50 mg PO BEDTIME MRX1 PRN PRN Reason: Sleep Last Admin: 12/05/24 20:17 Dose: 50 mg Documented By: AJITH Vitamin D (Cholecalciferol (Vitamin D3) 10 Mcg Tablet) 10 mcg PO DAILY [facility] Last Admin: 12/12/24 09:33 Dose: Not Given Documented By: JAMAR Non-Admin Reason: NPO Labs 12/13/24 06:15 12/13/24 06:15 Labs: Laboratory Results - last 24 hr 12/11/24 12/12/24 06:00 05:54 MCV 98.8 H MCH 33.2 H MCHC 33.6 RDW 14.6 Plt Count 342 MPV 9.3 L Immature Gran % (Auto) 0.5 H Neut % (Auto) 93.6 H Lymph % (Auto) 2.6 L [place] % (Auto) 3.2 Eos % (Auto) 0.0 Baso % (Auto) 0.1 Lymph # (Auto) 0.3 L [place] # (Auto) 0.4 Eos # (Auto) 0.0 Baso # (Auto) 0.0 Abs Immat Gran (auto) 0.06 H Absolute Neuts (auto) 12.1 H Absolute Nucleated RBC 0.000 Nucleated RBC % (auto) 0.0 Smear Tech's Comments VERIFIED Anion Gap 12 Estim Creat Clear Calc 92.0 Estimated GFR > 60 Random Glucose 134 H Calcium 8.6 Phosphorus 3.7 Magnesium 2.1 Total Bilirubin 0.3 0.3 Direct Bilirubin 0.2 0.2 AST 36 56 H ALT 23 36 Alkaline Phosphatase 101 112 Total Protein 6.1 L 6.4 L Albumin 2.6 L 2.8 L Microbiology Microbiology Results: Microbiology 12/09/24 14:50 Gram Stain - Final Abscess Intra-abdominal Routine Culture - Preliminary No growth to date. Anaerobic Culture - Preliminary Culture in progress. Procedures Date of Service Date of Service: 12/13/24 Progress Note: A&P Assessment and plan (1) Swallowing problem: Status: Acute Assessment and Plan: With repeated aspiration Peg tube not an option in view of hiatal hernia with part of the stomach in the chest Plan for jejunostomy tube placement Patient with multiple medical conditions Presents with significant perioperative risks I have explained this to his daughter Brenda again today I reviewed the risks including but not limited to bleeding, infections, respiratory failure, tube leak, bowel injury, tube dislodgement She says she wants to go ahead with the procedure for patient Plan on doing jejunostomy tube placement via laparotomy incision tomorrow Time Spent With Patient Time: Total time managing care of this patient today ____ minutes. Quality Stroke Does the patient have a stroke diagnosis?: No VTE Prior VTE?: Yes VTE Risk Level:: Medical - moderate - high VTE Device Contraindication: Treatment Not Indicated VTE Drug Contraindication: N/A - Med Ordered
--- NOTE | 2024-12-12 11:37 | P.PNIM_ITS ---
Subjective Subjective Date of Service: 12/12/24 Interval History: Seen and evaluated this morning feels ok, not in distress tolerating some PO during the day, othertimes he can not WBCs trending down no other events Review of Systems Review of Systems: Yes all other systems are reviewed and are negative Physical Exam 2 Vital Signs: Vital Signs: Last Vital Signs Temp 98.4 F 12/12/24 07:49 Pulse 102 H 12/12/24 08:03 Resp 18 12/12/24 08:03 BP 104/65 12/12/24 07:49 Pulse Ox 93 12/12/24 07:49 O2 Del Method Room Air 12/12/24 07:49 O2 Flow Rate 6 12/12/24 03:49 BMI result Body Mass Index 27.5 Const: Other: Constitutional : interactive, not in distress Cardiovascular : no JVP, no lower extremity edema Respiratory : bilateral chest movement, not in resp distress , basal crackles , on O2 supplement Gastrointestinal: soft, lax, Non tender Skin : Warm, Dry Neurological : Alert & oriented to self and place, No focal deficit Objective Data Active Medications Acetaminophen (Acetaminophen 325 Mg Tablet) 650 mg PO Q6H PRN PRN Reason: Pain, Mild 1-3,fever,headache Albuterol/Ipratropium (Albuterol/Iprat 2.5/0.5mg 3 Ml Ampul.Neb) 3 ml INHALE RQ6H WHILE AWAKE [facility] Last Admin: 12/12/24 08:01 Dose: 3 ml Documented By: CAMERON Calcium Carbonate (Calcium Carbonate 750 Mg Tab.Chew) 750 mg PO Q4H PRN PRN Reason: Heartburn Docusate Sodium (Docusate Sodium 100 Mg Capsule) 100 mg PO BID [facility] Last Admin: 12/12/24 09:33 Dose: Not Given Documented By: JAMAR Non-Admin Reason: NPO Enoxaparin Sodium (Enoxaparin Sodium 100 Mg/Ml Syringe) 90 mg SUBCUT Q12H [facility] Last Admin: 12/12/24 09:30 Dose: 90 mg Documented By: JAMAR Ferrous Sulfate (Ferrous Sulfate 324 Mg Tablet.) 324 mg PO DAILY [facility] Last Admin: 12/12/24 09:33 Dose: Not Given Documented By: JAMAR Non-Admin Reason: NPO Finasteride (Finasteride 5 Mg Tablet) 5 mg PO DAILY [facility] Last Admin: 12/12/24 09:33 Dose: Not Given Documented By: JAMAR Non-Admin Reason: NPO Guaifenesin/Dextromethorphan (Guaifenesin Dm 200/20/10 Ml 10 Ml Syrup) 10 ml PO Q4H PRN PRN Reason: Cough Last Admin: 12/10/24 03:56 Dose: 10 ml Documented By: BROOKE Nutrition (Parenteral) (Parenteral Nutrition) 2,400 mls @ 100 mls/hr IV .Q24H [facility]; Protocol Stop: 12/12/24 20:59 Last Admin: 12/11/24 22:31 Dose: 100 mls/hr Documented By: ISHAN Nutrition (Parenteral) (Parenteral Nutrition) 2,400 mls @ 100 mls/hr IV .Q24H [facility]; Protocol Stop: 12/13/24 20:59 Calcium Gluconate (Calcium Gluconate) 2 gm in 100 mls @ 50 mls/hr IV ONCE ONE Stop: 12/12/24 12:54 Lorazepam (Lorazepam 2 Mg/Ml Vial) 0.5 mg IVPUSH Q6H PRN PRN Reason: Anxiety Last Admin: 12/08/24 17:52 Dose: 0.5 mg Documented By: PAULINE Magnesium Hydroxide (Milk Of Magnesia 30 Ml Oral.Susp) 30 ml PO DAILY PRN PRN Reason: Constipation Melatonin (Melatonin 3 Mg Tablet) 6 mg PO BEDTIME [facility] Last Admin: 12/11/24 22:50 Dose: 6 mg Documented By: ISHAN Methylprednisolone Sodium Succinate (Methylprednisolone Sod Succ 40 Mg/Ml Vial) 40 mg IVPUSH Q24H [facility] Metoprolol Tartrate (Metoprolol Tartrate 5 Mg/5 Ml Vial) 2.5 mg IVPUSH Q6H [facility]; Protocol Last Admin: 12/12/24 09:35 Dose: 2.5 mg Documented By: JAMAR Nortriptyline HCl (Nortriptyline Hcl 25 Mg Capsule) 75 mg PO BEDTIME [facility] Last Admin: 12/11/24 22:49 Dose: 75 mg Documented By: ISHAN Olanzapine (Olanzapine 7.5 Mg Tablet) 7.5 mg PO BEDTIME [facility] Last Admin: 12/11/24 22:50 Dose: 7.5 mg Documented By: ISHAN Olanzapine (Olanzapine 5 Mg Tablet) 5 mg PO BID PRN PRN Reason: Anxiety Last Admin: 12/09/24 01:21 Dose: 5 mg Documented By: COLLEEN Olanzapine (Olanzapine 2.5 Mg Tablet) 2.5 mg PO DAILY [facility] Last Admin: 12/12/24 09:30 Dose: 2.5 mg Documented By: JAMAR Ondansetron HCl (Ondansetron Odt 4 Mg Tab.Rapdis) 4 mg TRANSLINGU Q12H PRN PRN Reason: Nausea And Vomiting Last Admin: 11/29/24 21:43 Dose: 4 mg Documented By: LEWIS Oxybutynin Chloride (Oxybutynin Chloride 5 Mg Tablet) 5 mg PO DAILY [facility] Last Admin: 12/12/24 09:33 Dose: Not Given Documented By: JAMAR Non-Admin Reason: NPO Pharmacy Consult (Consult Rx Parenteral Nutrition Ordering) 1 each MISCELLANE DAILY PRN PRN Reason: Consult order Polyethylene Glycol (Polyethylene Glycol 3350 17 Gm Powd.Pack) 17 gm PO DAILY [facility] Last Admin: 12/12/24 09:34 Dose: Not Given Documented By: JAMAR Non-Admin Reason: NPO Senna (Sennosides 8.6 Mg Tablet) 8.6 mg PO BEDTIME PRN PRN Reason: Constipation Sodium Chloride (0.9 % Sodium Chloride Flush 3 Ml Syringe) 3 ml IVFLUSH QSHIFT [facility] Last Admin: 12/12/24 09:33 Dose: 3 ml Documented By: JAMAR Trazodone HCl (Trazodone Hcl 50 Mg Tablet) 50 mg PO BEDTIME MRX1 PRN PRN Reason: Sleep Last Admin: 12/05/24 20:17 Dose: 50 mg Documented By: AJITH Vitamin D (Cholecalciferol (Vitamin D3) 10 Mcg Tablet) 10 mcg PO DAILY [facility] Last Admin: 12/12/24 09:33 Dose: Not Given Documented By: JAMAR Non-Admin Reason: NPO Labs 12/12/24 05:54 12/12/24 05:54 Labs: Laboratory Results - last 24 hr 12/11/24 12/12/24 06:00 05:54 MCV 98.8 H MCH 33.2 H MCHC 33.6 RDW 14.6 Plt Count 342 MPV 9.3 L Immature Gran % (Auto) 0.5 H Neut % (Auto) 93.6 H Lymph % (Auto) 2.6 L [place] % (Auto) 3.2 Eos % (Auto) 0.0 Baso % (Auto) 0.1 Lymph # (Auto) 0.3 L [place] # (Auto) 0.4 Eos # (Auto) 0.0 Baso # (Auto) 0.0 Abs Immat Gran (auto) 0.06 H Absolute Neuts (auto) 12.1 H Absolute Nucleated RBC 0.000 Nucleated RBC % (auto) 0.0 Smear Tech's Comments VERIFIED Anion Gap 12 Estim Creat Clear Calc 92.0 Estimated GFR > 60 Random Glucose 134 H Calcium 8.6 Phosphorus 3.7 Magnesium 2.1 Total Bilirubin 0.3 0.3 Direct Bilirubin 0.2 0.2 AST 36 56 H ALT 23 36 Alkaline Phosphatase 101 112 Total Protein 6.1 L 6.4 L Albumin 2.6 L 2.8 L Microbiology Microbiology Results: Microbiology 12/09/24 14:50 Gram Stain - Final Abscess Intra-abdominal Routine Culture - Preliminary No growth to date. Anaerobic Culture - Preliminary Culture in progress. Assessment and Plan (1) Abdominal fluid collection: Status: Acute (2) Dilated gallbladder: Status: Acute (3) Swallowing problem: Status: Acute (4) Atrial flutter with rapid ventricular response: Status: Acute Plan 79M PMH prostate CA, hx PE [2020] on apixaban, vertigo, GERD, HLD, MDD + psychosis admitted to geriatric psychiatry 11/14 for anxiety + panic attacks, undergoing ECT. Had endoscopy with removal of esophageal foreign body, balloon dilation of esophageal stricture, and biopsy on 11/26/24. CS ASSOCIATE called 11/28 for tachycardia in 150s; found to have atrial flutter with RVR; given IV metoprolol, digoxin + diltiazem and transferred to telemetry Swallowing difficulties 2/ dysphagia, esophogeal stricture, type IV paraesophageal hernia s/p ballooning, PPI CT abd Oval fluid collection anterior to the gallbladder with dilated GB on 12/08, had +ve HIDA scan 11/29 ORTHOPEDIC TECHNICIAN following, MBSS done, rec NDD1 and nectar thick liquids Continue PPN discussed surgical options with HCP, she is ok with J-tube placement, Planned for tomorrow by dr Garcia acute cholecystitis seen on CT of chest; US nondiagnostic; positive HIDA; completed abx course surgery appreciated, Drain GB Drain was placed on 12/09, found next to the patient on 12/10 after draining total of 400cc or so LFT stable, to monitor surgery following, consider repeat CT if worsens paroxysmal AF/RVR Rate better controlled dc Cardizem IV drip Lopressor 5mg q6 iv, unable to tolerate PO Metoprolol 25 mg Q6 Lovenox 90mg Q12 Hold Eliquis acute hypoxic respiratory failure due to aspiration PNA & Pneumonitis completed course- 11/28 - 12/06/24- ceftriaxone + doxycycline + flagyl wean O2 as tolerated - down to 5L today on IV Steroids , wean down as toelrated recheck CXR prerenal ANDREA acute metabolic acidosis resolved after IV fluid hydration mild transaminitis stable, monitor subclinical hyperthyroidism repeat TFTs in 4-6 wk GERD, PPI MDD, continue olanzapine, nortriptylline, trazodone prostatism, finasteride VTE ppx apixaban on hold for surgery, on Lovenox full dose mechanical dispo eventual return to salty-psych ACP: Goals of care discussed as well with HCP. she discussed with family and decided to change his status to DNR\DNI for now. reason for continued hospitalization:hypoxia, on PPN, pending surgical intervention Quality Stroke Does the patient have a stroke diagnosis?: No VTE Prior VTE?: Yes VTE Risk Level:: Medical - moderate - high VTE Device Contraindication: Treatment Not Indicated VTE Drug Contraindication: N/A - Med Ordered
--- NOTE | 2024-12-12 11:54 | MHC.SL.SWA ---
Speech Pathologist Impression: Significant dysphagia d/t esophageal pathology Risk of Aspiration Due to: Poor PO Intake Reduced Cognition Variability in PO tolerance Overt s/s of airway compromise Dysphasia Diet Status: Liquid Consistency and Strategies for Safe Swallow: Liquid Intake Recommendation: [place] Thick Liquid Intake Strategies: Small Sips No Straws Double Swallow Solid Food Consistency: Dietary Recommendations: Pureed (NDD1) Additional Modifications to Solid Foods: Recommend start on PUREED (NDD1) diet and NECTAR THICK liquids, pills CRUSHED in PUREE. Patient did have a tendency to gulp large sips and required cues to use strategies. Patient is at elevated risk of aspiration. To maximize safety, patient must be supervised at meal time and cued for the following strategies: -eat and drink with a slow pace -take SMALL sips via teaspoon or controlled cup (pour smaller quantity into a cup) -AVOID straws -volitional throat clear after each 1-2 sips followed by a dry swallow -take SMALL bites via teaspoon -2-3 dry swallows after each bite to promote pharyngeal clearance -smaller more frequent meals throughout the day d/t esophageal impairment -provide daily oral care -maintain optimal positioning (upright at 90 degrees, OOB if possible) during and for at least 30 minutes after meals Oral Medication Intake: Crushed with Puree Please contact the pharmacy regarding appropriate crushable or liquid drug formulations that are available whenever modified delivery is recommended. Compensatory Strategies and Precautions to be Taken for Safe Swallow: Sitting Upright (90 deg) Double Swallow No Straw Liquids from Cup Liquids from Spoon Small Bites and Sips Rate of Ingestion Change Supervision While Eating and Drinking for Safe Swallow: Total Supervision (1:1) Foods to Avoid: Tough or overly dry, crumbly foods Swallowing Recommended Treatments: Compens. Strategy Educat. Recommendation for Speech: Inpatient Speech Therapy Comment: Intake Recommendations: Route: PO Diet Grade: Puree Liquid Consistencies: [place] Post-Study Functional Oral Intake Scale (FOIS): 5- Total oral intake of multiple consistencies requiring special preparation Patient presents with a moderate to severe oropharyngeal dysphagia, characterized by poor bolus control and slow oral phase, delayed swallow, compromised airway protection due to partial laryngeal elevation and incomplete to, at times, absent epiglottic inversion. There was significant pooling in the valleculae and pyriforms, which was reduced, but not entirely cleared on dry swallows. Aspiration seen with thin liquid and mixed media (honey with thin). There was evidence of penetration with puree and nectar thick consistencies, which cleared with cued throat clearing. Recommend start on PUREED (NDD1) diet and NECTAR THICK liquids, pills CRUSHED in PUREE. Patient did have a tendency to gulp large sips and required cues to use strategies. Patient is at elevated risk of aspiration. To maximize safety, patient must be supervised at meal time and cued for the following strategies: -eat and drink with a slow pace -take SMALL sips via teaspoon or controlled cup (pour smaller quantity into a cup) -AVOID straws -volitional throat clear after each 1-2 sips followed by a dry swallow -take SMALL bites via teaspoon -2-3 dry swallows after each bite to promote pharyngeal clearance -smaller more frequent meals throughout the day d/t esophageal impairment -provide daily oral care -maintain optimal positioning (upright at 90 degrees, OOB if possible) during and for at least 30 minutes after meals Therapy Recommendations: Speech Therapy will be continued daily while inpatient. Patient will likely need continued services after discharge. The following compensatory strategies and/or therapeutic exercises will be part of the upcoming therapy/management plan: Bolus Volume Change Rate of Ingestion Change Additional Swallow(s) per Bolus Throat Clear Prognosis for Improvement: The prognosis for the patient to meet nutritional needs by mouth is fair based on degree of impairment, stimulability for treatment. Jukebox Coin Collector Goals: ? The patient will tolerate the least restrictive diet with a safe/efficient swallow to maintain adequate nutrition and hydration. ? The patient and/or family will participate in further education for swallowing goals. Short Term Goals: ? Diet - The patient will tolerate a pureed diet with nectar thick liquids without signs or symptoms of penetration/aspiration 100% of the time. - The patient will participate in therapeutic PO trials with the DIRECTOR DIGITAL SALES. ? Guidelines - The patient will comply with/recall the following guidelines/strategies 100% of the time with minimal cuing: [place]-thick Liquid, Bolus Volume Change, Rate of Ingestion Change, Additional Swallow(s) per Bolus, Effortful Swallow (used during PO intake), Throat Clear. ? Education - The patient, family, caregiver, treating rotary peel oven tender, nurse will verbalize/demonstrate understanding of the results of this evaluation, the above recommendations, and the swallowing guidelines. Frequency/Duration: M-F Date Range for Service Req: Timeline to reassess: SALVATORE Sales Review Clerk Clinican/Clinical Fellow: No Supervisory Statement: I have reviewed and agree with the student/clinical fellow's documentation: N/A Speech Language Pathologist: Cydney Villegas M.S., [facility]DIRECTOR D[employer]ITAL SALES
[2024-12-12] MEDS: Metoprolol Tartrate 5 MG/5 ML VIAL IVPUSH ×2 (13:30→18:09)
[2024-12-12] MEDS: methylPREDNISolone Sod Succ 40 MG/ML VIAL IVPUSH (13:30)
[2024-12-12] MEDS: Dextrose 50 % 25 GM/50 ML SYRINGE IVPUSH (13:31)
[2024-12-12] MEDS: Calcium Gluconate/NaCl,Iso-Osm 2 GM/100 ML PLAST..BAG IV (13:33)
[2024-12-12 13:57] LABS: Anion Gap 12 (12-20); Blood Urea Nitrogen 27 mg/dL (9-16); Calcium 8.8 mg/dL (8.4-10.2); Carbon Dioxide 23 mmol/L (22-29); Chloride 104 mmol/L (96-108); Estimated Glomerular Filt Rate > 60; Glucose Random 204 mg/dL (60-115); Sodium 134 mmol/L (135-145)
[2024-12-12] MEDS: Insulin Regular, Human 100 UNIT/ML 10 ML VIAL IVPUSH (14:22)
[2024-12-12 14:31] LABS: Glucose, Whole Blood 258 mg/dL (60-115)
[2024-12-12] MEDS: Melatonin 3 MG TABLET 6 MG PO (21:02)
[2024-12-12] MEDS: Nortriptyline HCl 25 MG CAPSULE 75 MG PO (21:03)
[2024-12-12] MEDS: Parenteral Nutrition 2,400 ML 100 ML IV (21:08)
[2024-12-12] MEDS: OLANZapine 7.5 MG TABLET PO (21:08)
--- NOTE | 2024-12-12 22:52 | PM.EVENT ---
Event Note Date of Service: 12/15/24 Time Spent With Patient Time: Total time managing care of this patient today ____ minutes.
[2024-12-13] VITALS (10 sets, daily range): BP systolic 102–151; BP diastolic 60–87; PULSE 90–109; RESP 18–22; TEMP 36.7–37.6; O2SAT 91–98
[2024-12-13] MEDS: Metoprolol Tartrate 5 MG/5 ML VIAL IVPUSH ×4 (00:30→22:51)
[2024-12-13] MEDS: 0.9 % Sodium Chloride Flush 3 ML SYRINGE IVFLUSH ×3 (02:03→22:51)
[2024-12-13 06:39] LABS: MANUAL DIFF FLAG NO
[2024-12-13 06:46] LABS: Basophils Percent Auto 0.1 % (0-2); Hematocrit 34.1 % (42.0-52.0); Hemoglobin 11.8 g/dl (14.0-18.0); Imm Gran Abs Auto 0.11 X10*3/uL (0.00-0.03); Imm Gran Pct Auto 0.8 % (0.0-0.4); Lymphocytes Absolute Auto 0.5 X10*3/uL (1.2-4.9); Lymphocytes Percent Auto 3.4 % (20-40); Mean Corpuscular HGB Conc 34.6 g/dl (31.0-36.0); Mean Corpuscular Hemoglobin 33.7 pg (27.0-33.0); Mean Corpuscular Volume 97.4 fL (80.0-98.0); Mean Platelet Volume 9.3 fL (9.4-12.4); Monocytes Absolute Auto 1.4 X10*3/uL (0.1-1.2); Monocytes Percent Auto 9.6 % (2-11); Neutrophils Absolute Auto 12.5 x10*3/uL (2.0-8.3); Neutrophils Percent Auto 86.1 % (45-73); Platelet Count 400 X10*3/uL (160-400); Red Cell Distribution Width 14.4 % (11.0-16.0); White Blood Count 14.5 X10*3/uL (4.8-10.8)
[2024-12-13 07:00] LABS: Alanine Aminotransferase 62 U/L (0-40); Albumin Level 2.9 g/dL (3.5-5.0); Alkaline Phosphatase 121 U/L (39-117); Anion Gap 8 (12-20); Aspartate Amino Transferase 68 U/L (5-37); Bilirubin Direct 0.2 mg/dL (0.0-0.5); Bilirubin Total 0.4 mg/dL (0.0-1.0); Blood Urea Nitrogen 24 mg/dL (9-16); Calcium 8.6 mg/dL (8.4-10.2); Carbon Dioxide 25 mmol/L (22-29); Chloride 104 mmol/L (96-108); Creatinine Clr Calc Pharmacy 85.7; Estimated Glomerular Filt Rate > 60; Glucose Random 185 mg/dL (60-115); Phosphorus 3.5 mg/dL (2.7-4.5); Potassium 4.3 mmol/L (3.3-5.1); Sodium 133 mmol/L (135-145); Total Protein 6.7 g/dL (6.5-8.0)
[2024-12-13] MEDS: Albuterol/Iprat 2.5/0.5MG 3 ML AMPUL.NEB INHALE ×3 (07:46→19:19)
--- NOTE | 2024-12-13 10:21 | MHC.CLN ---
F/U PT REQUIRES PPN FOR NUTRITION SUPPORT R/T PROLONGED NPO STATUS AND PT WITH INCREASED NUTRITION NEEDS R/T PRESSURE INJURY PT REMAINS NPO CAR RIDER RECOMMENDING PUREED DIET WITH NT LIQ REVIEWED LABS DISCUSSED WITH PHARMACY CONTINUE PPN AT MAX GOAL RATE 100ML/HR WITH 112G LIPIDS PROVIDES 2344 TOTAL KCALS (30KCALS/KG), 240G DEXTROSE, 102G PROTEIN (1.3G/KG) REPLETE LYTES NEEDED WILL REDUCE PPN PO INTAKE INCREASES
--- NOTE | 2024-12-13 11:21 | P.PNIM_ITS ---
Subjective Subjective Date of Service: 12/13/24 Interval History: Seen and evaluated this morning feels ok, not in distress sometimes refuses care and meds plan for J-tube placement today no other events Review of Systems Review of Systems: Yes all other systems are reviewed and are negative Physical Exam 2 Vital Signs: Vital Signs: Last Vital Signs Temp 98.2 F 12/13/24 07:49 Pulse 94 12/13/24 07:49 Resp 22 H 12/13/24 07:49 BP 116/69 12/13/24 07:49 Pulse Ox 98 12/13/24 07:49 O2 Del Method Oxymask 12/13/24 07:49 O2 Flow Rate 4 12/13/24 07:49 BMI result Body Mass Index 27.5 Const: Other: Constitutional : interactive, not in distress Cardiovascular : no JVP, no lower extremity edema Respiratory : bilateral chest movement, not in resp distress , basal crackles , on O2 supplement Gastrointestinal: soft, lax, Non tender Skin : Warm, Dry Neurological : Alert & oriented to self and place, No focal deficit Objective Data Active Medications Acetaminophen (Acetaminophen 325 Mg Tablet) 650 mg PO Q6H PRN PRN Reason: Pain, Mild 1-3,fever,headache Albuterol/Ipratropium (Albuterol/Iprat 2.5/0.5mg 3 Ml Ampul.Neb) 3 ml INHALE RQ6H WHILE AWAKE [facility] Last Admin: 12/13/24 07:46 Dose: 3 ml Documented By: CAMERON Calcium Carbonate (Calcium Carbonate 750 Mg Tab.Chew) 750 mg PO Q4H PRN PRN Reason: Heartburn Docusate Sodium (Docusate Sodium 100 Mg Capsule) 100 mg PO BID [facility] Last Admin: 12/13/24 08:01 Dose: Not Given Documented By: KADI Non-Admin Reason: NPO Enoxaparin Sodium (Enoxaparin Sodium 100 Mg/Ml Syringe) 90 mg SUBCUT Q12H [facility] Last Admin: 12/12/24 21:02 Dose: Not Given Documented By: WILLIAMS Non-Admin Reason: held Ferrous Sulfate (Ferrous Sulfate 324 Mg Tablet.) 324 mg PO DAILY [facility] Last Admin: 12/13/24 08:02 Dose: Not Given Documented By: KADI Non-Admin Reason: NPO Finasteride (Finasteride 5 Mg Tablet) 5 mg PO DAILY ROMMEL Last Admin: 12/13/24 08:02 Dose: Not Given Documented By: KADI Non-Admin Reason: NPO Guaifenesin/Dextromethorphan (Guaifenesin Dm 200/20/10 Ml 10 Ml Syrup) 10 ml PO Q4H PRN PRN Reason: Cough Last Admin: 12/10/24 03:56 Dose: 10 ml Documented By: BROOKE Nutrition (Parenteral) (Parenteral Nutrition) 2,400 mls @ 100 mls/hr IV .Q24H ROMMEL; Protocol Stop: 12/13/24 20:59 Last Admin: 12/12/24 21:08 Dose: 100 mls/hr Documented By: WILLIAMS Nutrition (Parenteral) (Parenteral Nutrition) 2,400 mls @ 100 mls/hr IV .Q24H ROMMEL; Protocol Stop: 12/14/24 20:59 Lorazepam (Lorazepam 2 Mg/Ml Vial) 0.5 mg IVPUSH Q6H PRN PRN Reason: Anxiety Last Admin: 12/08/24 17:52 Dose: 0.5 mg Documented By: PAULINE Magnesium Hydroxide (Milk Of Magnesia 30 Ml Oral.Susp) 30 ml PO DAILY PRN PRN Reason: Constipation Melatonin (Melatonin 3 Mg Tablet) 6 mg PO BEDTIME ROMMEL Last Admin: 12/12/24 21:02 Dose: 6 mg Documented By: WILLIAMS Methylprednisolone Sodium Succinate (Methylprednisolone Sod Succ 40 Mg/Ml Vial) 40 mg IVPUSH Q24H ROMMEL Last Admin: 12/12/24 13:30 Dose: 40 mg Documented By: JAMAR Metoprolol Tartrate (Metoprolol Tartrate 5 Mg/5 Ml Vial) 5 mg IVPUSH Q6H [facility]; Protocol Last Admin: 12/13/24 05:36 Dose: 5 mg Documented By: ISHAN Nortriptyline HCl (Nortriptyline Hcl 25 Mg Capsule) 75 mg PO BEDTIME ROMMEL Last Admin: 12/12/24 21:03 Dose: 75 mg Documented By: WILLIAMS Olanzapine (Olanzapine 7.5 Mg Tablet) 7.5 mg PO BEDTIME ROMMEL Last Admin: 12/12/24 21:08 Dose: 7.5 mg Documented By: WILLIAMS Olanzapine (Olanzapine 5 Mg Tablet) 5 mg PO BID PRN PRN Reason: Anxiety Last Admin: 12/09/24 01:21 Dose: 5 mg Documented By: COLLEEN Olanzapine (Olanzapine 2.5 Mg Tablet) 2.5 mg PO DAILY [facility] Last Admin: 12/13/24 08:02 Dose: Not Given Documented By: KADI Non-Admin Reason: NPO Ondansetron HCl (Ondansetron Odt 4 Mg Tab.Rapdis) 4 mg TRANSLINGU Q12H PRN PRN Reason: Nausea And Vomiting Last Admin: 11/29/24 21:43 Dose: 4 mg Documented By: LEWIS Oxybutynin Chloride (Oxybutynin Chloride 5 Mg Tablet) 5 mg PO DAILY [facility] Last Admin: 12/13/24 08:02 Dose: Not Given Documented By: KADI Non-Admin Reason: NPO Pharmacy Consult (Consult Rx Parenteral Nutrition Ordering) 1 each MISCELLANE DAILY PRN PRN Reason: Consult order Polyethylene Glycol (Polyethylene Glycol 3350 17 Gm Powd.Pack) 17 gm PO DAILY [facility] Last Admin: 12/13/24 08:02 Dose: Not Given Documented By: KADI Non-Admin Reason: NPO Senna (Sennosides 8.6 Mg Tablet) 8.6 mg PO BEDTIME PRN PRN Reason: Constipation Sodium Chloride (0.9 % Sodium Chloride Flush 3 Ml Syringe) 3 ml IVFLUSH QSHIFT [facility] Last Admin: 12/13/24 08:58 Dose: Not Given Documented By: KADI Non-Admin Reason: Patient Refused Trazodone HCl (Trazodone Hcl 50 Mg Tablet) 50 mg PO BEDTIME MRX1 PRN PRN Reason: Sleep Last Admin: 12/05/24 20:17 Dose: 50 mg Documented By: AJITH Vitamin D (Cholecalciferol (Vitamin D3) 10 Mcg Tablet) 10 mcg PO DAILY [facility] Last Admin: 12/13/24 08:01 Dose: Not Given Documented By: KADI Non-Admin Reason: NPO Labs 12/13/24 06:15 12/13/24 06:15 Labs: Laboratory Results - last 24 hr 12/12/24 12/12/24 12/13/24 13:05 14:25 06:15 MCV 97.4 MCH 33.7 H MCHC 34.6 RDW 14.4 Plt Count 400 MPV 9.3 L Immature Gran % (Auto) 0.8 H Neut % (Auto) 86.1 H Lymph % (Auto) 3.4 L [place] % (Auto) 9.6 Eos % (Auto) 0.0 Baso % (Auto) 0.1 Lymph # (Auto) 0.5 L [place] # (Auto) 1.4 H Eos # (Auto) 0.0 Baso # (Auto) 0.0 Abs Immat Gran (auto) 0.11 H Absolute Neuts (auto) 12.5 H Absolute Nucleated RBC 0.000 Nucleated RBC % (auto) 0.0 Anion Gap 12 8 L Estim Creat Clear Calc 92.0 Estimated GFR > 60 POC Glucose 258 H Random Glucose 204 H Calcium 8.8 Phosphorus Magnesium Total Bilirubin Direct Bilirubin AST ALT Alkaline Phosphatase Total Protein Albumin 12/13/24 12/13/24 12/13/24 06:15 06:15 06:15 MCV MCH MCHC RDW Plt Count MPV Immature Gran % (Auto) Neut % (Auto) Lymph % (Auto) [place] % (Auto) Eos % (Auto) Baso % (Auto) Lymph # (Auto) [place] # (Auto) Eos # (Auto) Baso # (Auto) Abs Immat Gran (auto) Absolute Neuts (auto) Absolute Nucleated RBC Nucleated RBC % (auto) Anion Gap Cancelled Estim Creat Clear Calc 85.7 Cancelled Estimated GFR > 60 Cancelled POC Glucose Random Glucose 185 H Calcium Phosphorus Magnesium Total Bilirubin Direct Bilirubin AST ALT Alkaline Phosphatase Total Protein Albumin 12/13/24 12/13/24 06:15 06:15 MCV MCH MCHC RDW Plt Count MPV Immature Gran % (Auto) Neut % (Auto) Lymph % (Auto) [place] % (Auto) Eos % (Auto) Baso % (Auto) Lymph # (Auto) [place] # (Auto) Eos # (Auto) Baso # (Auto) Abs Immat Gran (auto) Absolute Neuts (auto) Absolute Nucleated RBC Nucleated RBC % (auto) Anion Gap Estim Creat Clear Calc Estimated GFR POC Glucose Random Glucose Cancelled Calcium 8.6 Cancelled Phosphorus 3.5 Magnesium 2.0 Total Bilirubin 0.4 Direct Bilirubin 0.2 AST 68 H ALT 62 H Alkaline Phosphatase 121 H Total Protein 6.7 Albumin 2.9 L Microbiology Microbiology Results: Microbiology 12/09/24 14:50 Gram Stain - Final Abscess Intra-abdominal Routine Culture - Preliminary No growth to date. Anaerobic Culture - Preliminary Culture in progress. Assessment and Plan (1) Abdominal fluid collection: Status: Acute (2) Dilated gallbladder: Status: Acute (3) Swallowing problem: Status: Acute (4) Abnormal biliary HIDA scan: Status: Acute (5) Atrial flutter with rapid ventricular response: Status: Acute Plan 79M PMH prostate CA, hx PE [2020] on apixaban, vertigo, GERD, HLD, MDD + psychosis admitted to geriatric psychiatry 11/14 for anxiety + panic attacks, undergoing ECT. Had endoscopy with removal of esophageal foreign body, balloon dilation of esophageal stricture, and biopsy on 11/26/24. FINISH SANDER called 11/28 for tachycardia in 150s; found to have atrial flutter with RVR; given IV metoprolol, digoxin + diltiazem and transferred to telemetry Swallowing difficulties 11/06 dysphagia, esophogeal stricture, type IV paraesophageal hernia s/p ballooning, PPI CT abd Oval fluid collection anterior to the gallbladder with dilated GB on 12/08, had +ve HIDA scan 11/29 PRINTER MACHINE following, MBSS done, rec NDD1 and nectar thick liquids Continue PPN surgery following for J-tube placement today by dr Garcia acute cholecystitis, transaminitis seen on CT of chest; US nondiagnostic; positive HIDA; completed abx course surgery appreciated, Drain GB Drain was placed on 12/09, found next to the patient on 12/10 after draining total of 400cc or so LFT started to increase continue to monitor surgery following, consider repeat CT if worsens pain or LFT paroxysmal AF/RVR Rate better controlled dc Cardizem IV drip Lopressor 5mg q6 iv, unable to tolerate PO Metoprolol 25 mg Q6 Lovenox 90mg Q12, hold before surgery Hold Eliquis acute hypoxic respiratory failure due to aspiration PNA & Pneumonitis completed course- 11/28 - 12/06/24- ceftriaxone + doxycycline + flagyl wean O2 as tolerated - down to 5L today on IV Steroids , wean down as toelrated recheck CXR prerenal ANDREA acute metabolic acidosis resolved after IV fluid hydration mild transaminitis stable, monitor subclinical hyperthyroidism repeat TFTs in 4-6 wk GERD, PPI MDD, continue olanzapine, nortriptylline, trazodone prostatism, finasteride VTE ppx apixaban on hold for surgery, on Lovenox full dose mechanical dispo eventual return to salty-psych ACP: Goals of care discussed as well with HCP. she discussed with family and decided to change his status to DNR\DNI for now. reason for continued hospitalization:hypoxia, on PPN, pending surgical intervention Quality Stroke Does the patient have a stroke diagnosis?: No VTE Prior VTE?: Yes VTE Risk Level:: Medical - moderate - high VTE Device Contraindication: Treatment Not Indicated VTE Drug Contraindication: N/A - Med Ordered
[2024-12-13] MEDS: methylPREDNISolone Sod Succ 40 MG/ML VIAL IVPUSH (11:32)
--- NOTE | 2024-12-13 13:29 | MHC.SLORD ---
Speech Language Pathology Order Status: Patient is NPO for possible J-tube placement today, therefore no PO trials given. FINANCIAL CONTROLLER will continue to follow.
--- NOTE | 2024-12-13 13:30 | MHC.SLORD ---
Speech Language Pathology Order Status: Patient is NPO for possible J-tube placement today, therefore no PO trials given. Per MD, patient's tolerance of PO is variable. RD following, patient requiring PPN for nutrition. SHAKER FLATWORK will continue to follow.
--- NOTE | 2024-12-13 14:53 | P.PNGS_ITS ---
Subjective Subjective Date of Service: 12/14/24 Interval history: No significant changes in status He remains on O2 supplementation, currently on a facemask Some shortness of breath Physical Exam 2 Vital Signs: Vital Signs: Last Vital Signs Temp 98.1 F 12/13/24 11:33 Pulse 100 12/13/24 11:33 Resp 18 12/13/24 11:33 BP 133/79 12/13/24 11:33 Pulse Ox 91 L 12/13/24 11:33 O2 Del Method Oxymask 12/13/24 11:33 O2 Flow Rate 4 12/13/24 11:33 BMI result Body Mass Index 27.5 Const: Other: On face mask Resp: Other: Mildly short of breath especially when speaking Cardio: Rhythm: regular rhythm GI: Other: Has low midline surgical scar Palpation (GI): Soft to palpation, not firm and no guarding Objective Data Active Medications Acetaminophen (Acetaminophen 325 Mg Tablet) 650 mg PO Q6H PRN PRN Reason: Pain, Mild 1-3,fever,headache Acetylcysteine (Acetylcysteine 10 % 400 Mg/4 Ml Vial) 400 mg INHALE RBID [facility] Albuterol/Ipratropium (Albuterol/Iprat 2.5/0.5mg 3 Ml Ampul.Neb) 3 ml INHALE RQ6H WHILE AWAKE [facility] Last Admin: 12/13/24 07:46 Dose: 3 ml Documented By: CAMERON Calcium Carbonate (Calcium Carbonate 750 Mg Tab.Chew) 750 mg PO Q4H PRN PRN Reason: Heartburn Docusate Sodium (Docusate Sodium 100 Mg Capsule) 100 mg PO BID [facility] Last Admin: 12/13/24 08:01 Dose: Not Given Documented By: KADI Non-Admin Reason: NPO Enoxaparin Sodium (Enoxaparin Sodium 100 Mg/Ml Syringe) 90 mg SUBCUT Q12H [facility] Last Admin: 12/12/24 21:02 Dose: Not Given Documented By: WILLIAMS Non-Admin Reason: held Ferrous Sulfate (Ferrous Sulfate 324 Mg Tablet.) 324 mg PO DAILY [facility] Last Admin: 12/13/24 08:02 Dose: Not Given Documented By: KADI Non-Admin Reason: NPO Finasteride (Finasteride 5 Mg Tablet) 5 mg PO DAILY [facility] Last Admin: 12/13/24 08:02 Dose: Not Given Documented By: KADI Non-Admin Reason: NPO Guaifenesin/Dextromethorphan (Guaifenesin Dm 200/20/10 Ml 10 Ml Syrup) 10 ml PO Q4H PRN PRN Reason: Cough Last Admin: 12/10/24 03:56 Dose: 10 ml Documented By: TOBIASTSSU Nutrition (Parenteral) (Parenteral Nutrition) 2,400 mls @ 100 mls/hr IV .Q24H [facility]; Protocol Stop: 12/13/24 20:59 Last Admin: 12/12/24 21:08 Dose: 100 mls/hr Documented By: WILLIAMS Nutrition (Parenteral) (Parenteral Nutrition) 2,400 mls @ 100 mls/hr IV .Q24H [facility]; Protocol Stop: 12/14/24 20:59 Piperacillin Sod/Tazobactam (Sod 4.5 gm/ Sodium Chloride) 100 mls @ 200 mls/hr IV Q6H [facility] Lorazepam (Lorazepam 2 Mg/Ml Vial) 0.5 mg IVPUSH Q6H PRN PRN Reason: Anxiety Last Admin: 12/08/24 17:52 Dose: 0.5 mg Documented By: PAULINE Magnesium Hydroxide (Milk Of Magnesia 30 Ml Oral.Susp) 30 ml PO DAILY PRN PRN Reason: Constipation Melatonin (Melatonin 3 Mg Tablet) 6 mg PO BEDTIME [facility] Last Admin: 12/12/24 21:02 Dose: 6 mg Documented By: WILLIAMS Methylprednisolone Sodium Succinate (Methylprednisolone Sod Succ 40 Mg/Ml Vial) 40 mg IVPUSH Q24H [facility] Last Admin: 12/13/24 11:32 Dose: 40 mg Documented By: KADI Metoprolol Tartrate (Metoprolol Tartrate 5 Mg/5 Ml Vial) 5 mg IVPUSH Q6H [facility]; Protocol Last Admin: 12/13/24 11:29 Dose: Not Given Documented By: KADI Non-Admin Reason: Physician Held Med Nortriptyline HCl (Nortriptyline Hcl 25 Mg Capsule) 75 mg PO BEDTIME [facility] Last Admin: 12/12/24 21:03 Dose: 75 mg Documented By: WILLIAMS Olanzapine (Olanzapine 7.5 Mg Tablet) 7.5 mg PO BEDTIME [facility] Last Admin: 12/12/24 21:08 Dose: 7.5 mg Documented By: WILLIAMS Olanzapine (Olanzapine 5 Mg Tablet) 5 mg PO BID PRN PRN Reason: Anxiety Last Admin: 12/09/24 01:21 Dose: 5 mg Documented By: COLLEEN Olanzapine (Olanzapine 2.5 Mg Tablet) 2.5 mg PO DAILY [facility] Last Admin: 12/13/24 08:02 Dose: Not Given Documented By: KADI Non-Admin Reason: NPO Ondansetron HCl (Ondansetron Odt 4 Mg Tab.Rapdis) 4 mg TRANSLINGU Q12H PRN PRN Reason: Nausea And Vomiting Last Admin: 11/29/24 21:43 Dose: 4 mg Documented By: LEWIS Oxybutynin Chloride (Oxybutynin Chloride 5 Mg Tablet) 5 mg PO DAILY [facility] Last Admin: 12/13/24 08:02 Dose: Not Given Documented By: KADI Non-Admin Reason: NPO Pharmacy Consult (Consult Rx Parenteral Nutrition Ordering) 1 each MISCELLANE DAILY PRN PRN Reason: Consult order Polyethylene Glycol (Polyethylene Glycol 3350 17 Gm Powd.Pack) 17 gm PO DAILY [facility] Last Admin: 12/13/24 08:02 Dose: Not Given Documented By: KADI Non-Admin Reason: NPO Senna (Sennosides 8.6 Mg Tablet) 8.6 mg PO BEDTIME PRN PRN Reason: Constipation Sodium Chloride (0.9 % Sodium Chloride Flush 3 Ml Syringe) 3 ml IVFLUSH QSHIFT [facility] Last Admin: 12/13/24 08:58 Dose: Not Given Documented By: KADI Non-Admin Reason: Patient Refused Trazodone HCl (Trazodone Hcl 50 Mg Tablet) 50 mg PO BEDTIME MRX1 PRN PRN Reason: Sleep Last Admin: 12/05/24 20:17 Dose: 50 mg Documented By: AJITH Vitamin D (Cholecalciferol (Vitamin D3) 10 Mcg Tablet) 10 mcg PO DAILY [facility] Last Admin: 12/13/24 08:01 Dose: Not Given Documented By: KADI Non-Admin Reason: NPO Labs 12/13/24 06:15 12/13/24 06:15 Labs: Laboratory Results - last 24 hr 0312/13/24 12/13/24 06:15 06:15 06:15 MCV 97.4 MCH 33.7 H MCHC 34.6 RDW 14.4 Plt Count 400 MPV 9.3 L Immature Gran % (Auto) 0.8 H Neut % (Auto) 86.1 H Lymph % (Auto) 3.4 L [place] % (Auto) 9.6 Eos % (Auto) 0.0 Baso % (Auto) 0.1 Lymph # (Auto) 0.5 L [place] # (Auto) 1.4 H Eos # (Auto) 0.0 Baso # (Auto) 0.0 Abs Immat Gran (auto) 0.11 H Absolute Neuts (auto) 12.5 H Absolute Nucleated RBC 0.000 Nucleated RBC % (auto) 0.0 Anion Gap 8 L Cancelled Estim Creat Clear Calc 85.7 Cancelled Estimated GFR > 60 Random Glucose Calcium Phosphorus Magnesium Total Bilirubin Direct Bilirubin AST ALT Alkaline Phosphatase Total Protein Albumin 12/13/24 12/13/24 12/13/24 06:15 06:15 06:15 MCV MCH MCHC RDW Plt Count MPV Immature Gran % (Auto) Neut % (Auto) Lymph % (Auto) [place] % (Auto) Eos % (Auto) Baso % (Auto) Lymph # (Auto) [place] # (Auto) Eos # (Auto) Baso # (Auto) Abs Immat Gran (auto) Absolute Neuts (auto) Absolute Nucleated RBC Nucleated RBC % (auto) Anion Gap Estim Creat Clear Calc Estimated GFR Cancelled Random Glucose 185 H Cancelled Calcium 8.6 Cancelled Phosphorus 3.5 Magnesium 2.0 Total Bilirubin 0.4 Direct Bilirubin 0.2 AST 68 H ALT 62 H Alkaline Phosphatase 121 H Total Protein 6.7 Albumin 2.9 L Microbiology Microbiology Results: Microbiology 12/09/24 14:50 Gram Stain - Final Abscess Intra-abdominal Routine Culture - Preliminary No growth to date. Anaerobic Culture - Preliminary Culture in progress. Procedures Date of Service Date of Service: 12/14/24 Progress Note: A&P Assessment and plan (1) Swallowing problem: Status: Acute Assessment and Plan: Was scheduled for jejunostomy tube placement today Anesthesiologists however were concerned because of his current respiratory status They felt that patient may have room for improvement in view of his recent diagnosis of pneumonia Anesthesiologist also feel that he may not be extubated able postoperatively and may need to be in the ICU postop Procedure therefore canceled for today I had a long discussion with his healthcare proxy Brenda and explained the above Brenda says that family does not want him to be on the ventilator postoperatively so she will need to rediscuss this with everybody I will talk to her again tomorrow Time Spent With Patient Time: Total time managing care of this patient today ____ minutes. Quality Stroke Does the patient have a stroke diagnosis?: No VTE Prior VTE?: Yes VTE Risk Level:: Medical - moderate - high VTE Device Contraindication: Treatment Not Indicated VTE Drug Contraindication: N/A - Med Ordered
[2024-12-13] MEDS: Acetylcysteine 10 % 400 MG/4 ML VIAL INHALE ×2 (15:25→19:19)
[2024-12-13] MEDS: Piperacillin Sodium/Tazobactam 4.5 GM in 0.9 % Sodium Chloride 100 ML IV ×2 (15:37→21:35)
[2024-12-13] MEDS: Melatonin 3 MG TABLET 6 MG PO (21:38)
[2024-12-13] MEDS: OLANZapine 7.5 MG TABLET PO (21:39)
[2024-12-13] MEDS: Nortriptyline HCl 25 MG CAPSULE 75 MG PO (21:39)
[2024-12-13] MEDS: Parenteral Nutrition 2,400 ML 100 ML IV (21:50)
[2024-12-14] VITALS (8 sets, daily range): BP systolic 101–122; BP diastolic 65–72; PULSE 98–102; RESP 18–22; TEMP 36.7–37.6; O2SAT 89–93
[2024-12-14] MEDS: Piperacillin Sodium/Tazobactam 4.5 GM in 0.9 % Sodium Chloride 100 ML IV ×4 (02:53→22:35)
[2024-12-14] MEDS: Metoprolol Tartrate 5 MG/5 ML VIAL IVPUSH ×3 (05:57→16:22)
[2024-12-14] MEDS: Acetylcysteine 10 % 400 MG/4 ML VIAL INHALE ×2 (07:32→18:54)
[2024-12-14] MEDS: Albuterol/Iprat 2.5/0.5MG 3 ML AMPUL.NEB INHALE ×2 (07:32→18:54)
--- NOTE | 2024-12-14 07:59 | PM.PNGS ---
Subjective Subjective Date of Service: 12/15/24 Interval history: awake but does not provide good history Physical Exam Vital Signs: Vital Signs: Last Vital Signs Temp 99.5 F 12/14/24 03:54 Pulse 102 H 12/14/24 07:35 Resp 18 12/14/24 07:35 BP 102/65 12/14/24 03:54 Pulse Ox 92 12/14/24 07:35 O2 Del Method Oxymask 12/14/24 03:54 O2 Flow Rate 4 12/14/24 03:54 BMI result Body Mass Index 27.5 Const: Other: appears short of breath using a face mask Resp: Other: appears short of breath Cardio: Rate: tachycardic GI: Other: abd soft, low midline surgical scar Objective Data Active Medications Acetaminophen (Acetaminophen 325 Mg Tablet) 650 mg PO Q6H PRN PRN Reason: Pain, Mild 1-3,fever,headache Acetylcysteine (Acetylcysteine 10 % 400 Mg/4 Ml Vial) 400 mg INHALE RBID [facility] Last Admin: 12/14/24 07:32 Dose: 400 mg Documented By: DANN Albuterol/Ipratropium (Albuterol/Iprat 2.5/0.5mg 3 Ml Ampul.Neb) 3 ml INHALE RQ6H WHILE AWAKE [facility] Last Admin: 12/14/24 07:32 Dose: 3 ml Documented By: DANN Calcium Carbonate (Calcium Carbonate 750 Mg Tab.Chew) 750 mg PO Q4H PRN PRN Reason: Heartburn Docusate Sodium (Docusate Sodium 100 Mg Capsule) 100 mg PO BID [facility] Last Admin: 12/14/24 07:56 Dose: Not Given Documented By: KADI Non-Admin Reason: NPO Enoxaparin Sodium (Enoxaparin Sodium 100 Mg/Ml Syringe) 90 mg SUBCUT Q12H [facility] Last Admin: 12/12/24 21:02 Dose: Not Given Documented By: WILLIAMS Non-Admin Reason: held Ferrous Sulfate (Ferrous Sulfate 324 Mg Tablet.) 324 mg PO DAILY [facility] Last Admin: 12/14/24 07:56 Dose: Not Given Documented By: KADI Non-Admin Reason: NPO Finasteride (Finasteride 5 Mg Tablet) 5 mg PO DAILY [facility] Last Admin: 12/14/24 07:56 Dose: Not Given Documented By: KADI Non-Admin Reason: NPO Guaifenesin/Dextromethorphan (Guaifenesin Dm 200/20/10 Ml 10 Ml Syrup) 10 ml PO Q4H PRN PRN Reason: Cough Last Admin: 12/10/24 03:56 Dose: 10 ml Documented By: BROOKE Nutrition (Parenteral) (Parenteral Nutrition) 2,400 mls @ 100 mls/hr IV .Q24H [facility]; Protocol Stop: 12/14/24 20:59 Last Admin: 12/13/24 21:50 Dose: 100 mls/hr Documented By: ISHAN Piperacillin Sod/Tazobactam (Sod 4.5 gm/ Sodium Chloride) 100 mls @ 200 mls/hr IV Q6H [facility] Last Infusion: 12/14/24 03:40 Dose: Infused Documented By: ISHAN Lorazepam (Lorazepam 2 Mg/Ml Vial) 0.5 mg IVPUSH Q6H PRN PRN Reason: Anxiety Last Admin: 12/08/24 17:52 Dose: 0.5 mg Documented By: PAULINE Magnesium Hydroxide (Milk Of Magnesia 30 Ml Oral.Susp) 30 ml PO DAILY PRN PRN Reason: Constipation Melatonin (Melatonin 3 Mg Tablet) 6 mg PO BEDTIME [facility] Last Admin: 12/13/24 21:38 Dose: 6 mg Documented By: ISHAN Methylprednisolone Sodium Succinate (Methylprednisolone Sod Succ 40 Mg/Ml Vial) 40 mg IVPUSH Q24H [facility] Last Admin: 12/13/24 11:32 Dose: 40 mg Documented By: KADI Metoprolol Tartrate (Metoprolol Tartrate 5 Mg/5 Ml Vial) 5 mg IVPUSH Q6H [facility]; Protocol Last Admin: 12/14/24 05:57 Dose: 5 mg Documented By: ISHAN Comments: BP 120/73 HR 109 Nortriptyline HCl (Nortriptyline Hcl 25 Mg Capsule) 75 mg PO BEDTIME [facility] Last Admin: 12/13/24 21:39 Dose: 75 mg Documented By: ISHAN Olanzapine (Olanzapine 7.5 Mg Tablet) 7.5 mg PO BEDTIME [facility] Last Admin: 12/13/24 21:39 Dose: 7.5 mg Documented By: ISHAN Olanzapine (Olanzapine 5 Mg Tablet) 5 mg PO BID PRN PRN Reason: Anxiety Last Admin: 12/09/24 01:21 Dose: 5 mg Documented By: COLLEEN Olanzapine (Olanzapine 2.5 Mg Tablet) 2.5 mg PO DAILY [facility] Last Admin: 12/14/24 07:56 Dose: Not Given Documented By: KADI Non-Admin Reason: NPO Ondansetron HCl (Ondansetron Odt 4 Mg Tab.Rapdis) 4 mg TRANSLINGU Q12H PRN PRN Reason: Nausea And Vomiting Last Admin: 11/29/24 21:43 Dose: 4 mg Documented By: LEWIS Oxybutynin Chloride (Oxybutynin Chloride 5 Mg Tablet) 5 mg PO DAILY [facility] Last Admin: 12/14/24 07:56 Dose: Not Given Documented By: KADI Non-Admin Reason: NPO Pharmacy Consult (Consult Rx Parenteral Nutrition Ordering) 1 each MISCELLANE DAILY PRN PRN Reason: Consult order Polyethylene Glycol (Polyethylene Glycol 3350 17 Gm Powd.Pack) 17 gm PO DAILY [facility] Last Admin: 12/14/24 07:56 Dose: Not Given Documented By: KADI Non-Admin Reason: NPO Senna (Sennosides 8.6 Mg Tablet) 8.6 mg PO BEDTIME PRN PRN Reason: Constipation Sodium Chloride (0.9 % Sodium Chloride Flush 3 Ml Syringe) 3 ml IVFLUSH QSHIFT [facility] Last Admin: 12/14/24 07:55 Dose: Not Given Documented By: KADI Non-Admin Reason: IV Running Trazodone HCl (Trazodone Hcl 50 Mg Tablet) 50 mg PO BEDTIME MRX1 PRN PRN Reason: Sleep Last Admin: 12/05/24 20:17 Dose: 50 mg Documented By: AJITH Vitamin D (Cholecalciferol (Vitamin D3) 10 Mcg Tablet) 10 mcg PO DAILY [facility] Last Admin: 12/14/24 07:56 Dose: Not Given Documented By: KADI Non-Admin Reason: NPO Labs 12/15/24 06:46 12/15/24 06:46 Microbiology Microbiology Results: Microbiology 12/09/24 14:50 Gram Stain - Final Abscess Intra-abdominal Routine Culture - Preliminary No growth to date. Anaerobic Culture - Preliminary Culture in progress. Procedures Date of Service Date of Service: 12/15/24 Progress Note: A&P Assessment and plan (1) Swallowing problem: Status: Acute Assessment and Plan: anesthesia with concerns about respiratory status I have talked to patient's sister and HCP Brenda Amato I explained to her that patient has a high likelihood of not being extubatable postop for jejunostomy may need to be in ICU postop on ventilator Brenda says she will discuss this with the rest of her family She says the family does not want pt to be on ventilator postop Time Spent With Patient Time: Total time managing care of this patient today ____ minutes. Quality Stroke Does the patient have a stroke diagnosis?: No VTE Prior VTE?: Yes VTE Risk Level:: Medical - moderate - high VTE Device Contraindication: Treatment Not Indicated VTE Drug Contraindication: N/A - Med Ordered
[2024-12-14 09:12] LABS: Alanine Aminotransferase 80 U/L (0-40); Albumin Level 2.7 g/dL (3.5-5.0); Anion Gap 11 (12-20); Aspartate Amino Transferase 63 U/L (5-37); Bilirubin Direct 0.3 mg/dL (0.0-0.5); Bilirubin Total 0.5 mg/dL (0.0-1.0); Blood Urea Nitrogen 39 mg/dL (9-16); Calcium 8.5 mg/dL (8.4-10.2); Carbon Dioxide 24 mmol/L (22-29); Chloride 106 mmol/L (96-108); Creatinine Clr Calc Pharmacy 83.3; Estimated Glomerular Filt Rate > 60; Glucose Random 149 mg/dL (60-115); Phosphorus 3.3 mg/dL (2.7-4.5); Potassium 4.1 mmol/L (3.3-5.1); Sodium 137 mmol/L (135-145); Total Protein 6.1 g/dL (6.5-8.0)
--- NOTE | 2024-12-14 09:16 | MHC.SLORD ---
Speech Language Pathology Order Status: Pt sleeping this morning, RN consulted, reported pt remains NPO, no oral meds. Pt is pending Jtube placement when respiratory status stable.
[2024-12-14 10:09] LABS: Alkaline Phosphatase 123 U/L (39-117)
--- NOTE | 2024-12-14 11:06 | MHC.CLN ---
F/U PT'S PROCEDURE FOR J TUBE PLACEMENT CANCELLED PER PT REMAINS NPO REVIEWED LABS DISCUSSED WITH PHARMACY CONTINUE PPN AT MAX GOAL RATE 100ML/HR WITH 112G LIPIDS PROVIDES 2344 TOTAL KCALS (30KCALS/KG), 240G DEXTROSE, 102G PROTEIN (1.3G/KG) REPLETE LYTES NEEDED
[2024-12-14] MEDS: methylPREDNISolone Sod Succ 40 MG/ML VIAL IVPUSH (11:44)
--- NOTE | 2024-12-14 11:59 | P.PNIM_ITS ---
Subjective Subjective Date of Service: 12/14/24 Interval History: Seen and evaluated this morning feels ok, not in distress sometimes refuses care and meds plan for J-tube placement postponed as he is at high risk of being unable to extubate , family discussion no other events Review of Systems Review of Systems: Yes all other systems are reviewed and are negative Physical Exam 2 Vital Signs: Vital Signs: Last Vital Signs Temp 98.5 F 12/14/24 11:34 Pulse 98 12/14/24 11:37 Resp 20 12/14/24 11:34 BP 101/68 12/14/24 11:34 Pulse Ox 92 12/14/24 11:34 O2 Del Method Oxymask 12/14/24 11:34 O2 Flow Rate 3 12/14/24 11:34 BMI result Body Mass Index 27.5 Const: Other: Constitutional : interactive, not in distress Cardiovascular : no JVP, no lower extremity edema Respiratory : bilateral chest movement, not in resp distress , basal crackles , on O2 supplement Gastrointestinal: soft, lax, Non tender Skin : Warm, Dry Neurological : Alert & oriented to self and place, No focal deficit Objective Data Active Medications Acetaminophen (Acetaminophen 325 Mg Tablet) 650 mg PO Q6H PRN PRN Reason: Pain, Mild 1-3,fever,headache Acetylcysteine (Acetylcysteine 10 % 400 Mg/4 Ml Vial) 400 mg INHALE RBID [facility] Last Admin: 12/14/24 07:32 Dose: 400 mg Documented By: DANN Albuterol/Ipratropium (Albuterol/Iprat 2.5/0.5mg 3 Ml Ampul.Neb) 3 ml INHALE RQ6H WHILE AWAKE [facility] Last Admin: 12/14/24 07:32 Dose: 3 ml Documented By: DANN Calcium Carbonate (Calcium Carbonate 750 Mg Tab.Chew) 750 mg PO Q4H PRN PRN Reason: Heartburn Docusate Sodium (Docusate Sodium 100 Mg Capsule) 100 mg PO BID [facility] Last Admin: 12/14/24 07:56 Dose: Not Given Documented By: KADI Non-Admin Reason: NPO Enoxaparin Sodium (Enoxaparin Sodium 100 Mg/Ml Syringe) 90 mg SUBCUT Q12H [facility] Last Admin: 12/12/24 21:02 Dose: Not Given Documented By: WILLIAMS Non-Admin Reason: held Ferrous Sulfate (Ferrous Sulfate 324 Mg Tablet.Dr) 324 mg PO DAILY [facility] Last Admin: 12/14/24 07:56 Dose: Not Given Documented By: KADI Non-Admin Reason: NPO Finasteride (Finasteride 5 Mg Tablet) 5 mg PO DAILY [facility] Last Admin: 12/14/24 07:56 Dose: Not Given Documented By: KADI Non-Admin Reason: NPO Guaifenesin/Dextromethorphan (Guaifenesin Dm 200/20/10 Ml 10 Ml Syrup) 10 ml PO Q4H PRN PRN Reason: Cough Last Admin: 12/10/24 03:56 Dose: 10 ml Documented By: TOBIASTSSU Nutrition (Parenteral) (Parenteral Nutrition) 2,400 mls @ 100 mls/hr IV .Q24H [facility]; Protocol Stop: 12/14/24 20:59 Last Admin: 12/13/24 21:50 Dose: 100 mls/hr Documented By: ISHAN Piperacillin Sod/Tazobactam (Sod 4.5 gm/ Sodium Chloride) 100 mls @ 200 mls/hr IV Q6H [facility] Last Infusion: 12/14/24 09:49 Dose: Infused Documented By: KADI Nutrition (Parenteral) (Parenteral Nutrition) 2,400 mls @ 100 mls/hr IV .Q24H [facility]; Protocol Stop: 12/15/24 20:59 Lorazepam (Lorazepam 2 Mg/Ml Vial) 0.5 mg IVPUSH Q6H PRN PRN Reason: Anxiety Last Admin: 12/08/24 17:52 Dose: 0.5 mg Documented By: PAULINE Magnesium Hydroxide (Milk Of Magnesia 30 Ml Oral.Susp) 30 ml PO DAILY PRN PRN Reason: Constipation Melatonin (Melatonin 3 Mg Tablet) 6 mg PO BEDTIME [facility] Last Admin: 12/13/24 21:38 Dose: 6 mg Documented By: ISHAN Methylprednisolone Sodium Succinate (Methylprednisolone Sod Succ 40 Mg/Ml Vial) 40 mg IVPUSH Q24H [facility] Last Admin: 12/14/24 11:44 Dose: 40 mg Documented By: KADI Metoprolol Tartrate (Metoprolol Tartrate 5 Mg/5 Ml Vial) 5 mg IVPUSH Q6H [facility]; Protocol Last Admin: 12/14/24 11:44 Dose: 5 mg Documented By: KADI Nortriptyline HCl (Nortriptyline Hcl 25 Mg Capsule) 75 mg PO BEDTIME [facility] Last Admin: 12/13/24 21:39 Dose: 75 mg Documented By: ISHAN Olanzapine (Olanzapine 7.5 Mg Tablet) 7.5 mg PO BEDTIME [facility] Last Admin: 12/13/24 21:39 Dose: 7.5 mg Documented By: ISHAN Olanzapine (Olanzapine 5 Mg Tablet) 5 mg PO BID PRN PRN Reason: Anxiety Last Admin: 12/09/24 01:21 Dose: 5 mg Documented By: COLLEEN Olanzapine (Olanzapine 2.5 Mg Tablet) 2.5 mg PO DAILY [facility] Last Admin: 12/14/24 07:56 Dose: Not Given Documented By: KADI Non-Admin Reason: NPO Ondansetron HCl (Ondansetron Odt 4 Mg Tab.Rapdis) 4 mg TRANSLINGU Q12H PRN PRN Reason: Nausea And Vomiting Last Admin: 11/29/24 21:43 Dose: 4 mg Documented By: LEWIS Oxybutynin Chloride (Oxybutynin Chloride 5 Mg Tablet) 5 mg PO DAILY [facility] Last Admin: 12/14/24 07:56 Dose: Not Given Documented By: KADI Non-Admin Reason: NPO Pharmacy Consult (Consult Rx Parenteral Nutrition Ordering) 1 each MISCELLANE DAILY PRN PRN Reason: Consult order Polyethylene Glycol (Polyethylene Glycol 3350 17 Gm Powd.Pack) 17 gm PO DAILY [facility] Last Admin: 12/14/24 07:56 Dose: Not Given Documented By: KADI Non-Admin Reason: NPO Senna (Sennosides 8.6 Mg Tablet) 8.6 mg PO BEDTIME PRN PRN Reason: Constipation Sodium Chloride (0.9 % Sodium Chloride Flush 3 Ml Syringe) 3 ml IVFLUSH QSHIFT [facility] Last Admin: 12/14/24 07:55 Dose: Not Given Documented By: KADI Non-Admin Reason: IV Running Trazodone HCl (Trazodone Hcl 50 Mg Tablet) 50 mg PO BEDTIME MRX1 PRN PRN Reason: Sleep Last Admin: 12/05/24 20:17 Dose: 50 mg Documented By: AJITH Vitamin D (Cholecalciferol (Vitamin D3) 10 Mcg Tablet) 10 mcg PO DAILY [facility] Last Admin: 12/14/24 07:56 Dose: Not Given Documented By: KADI Non-Admin Reason: NPO Labs 12/13/24 06:15 12/14/24 08:39 Labs: Laboratory Results - last 24 hr 12/14/24 08:39 Anion Gap 11 L Estim Creat Clear Calc 83.3 Estimated GFR > 60 Random Glucose 149 H Calcium 8.5 Phosphorus 3.3 Magnesium 2.0 Total Bilirubin 0.5 Direct Bilirubin 0.3 AST 63 H ALT 80 H Alkaline Phosphatase 123 H Total Protein 6.1 L Albumin 2.7 L Microbiology Microbiology Results: Microbiology 12/09/24 14:50 Gram Stain - Final Abscess Intra-abdominal Routine Culture - Preliminary No growth to date. Anaerobic Culture - Preliminary Assessment and Plan (1) Abdominal fluid collection: Status: Acute (2) Dilated gallbladder: Status: Acute (3) Swallowing problem: Status: Acute (4) Abnormal biliary HIDA scan: Status: Acute (5) Atrial flutter with rapid ventricular response: Status: Acute Plan 79M PMH prostate CA, hx PE [2020] on apixaban, vertigo, GERD, HLD, MDD + psychosis admitted to geriatric psychiatry 11/14 for anxiety + panic attacks, undergoing ECT. Had endoscopy with removal of esophageal foreign body, balloon dilation of esophageal stricture, and biopsy on 11/26/24. [employer] called 11/28 for tachycardia in 150s; found to have atrial flutter with RVR; given IV metoprolol, digoxin + diltiazem and transferred to telemetry Swallowing difficulties / dysphagia, esophogeal stricture, type IV paraesophageal hernia s/p ballooning, PPI CT abd Oval fluid collection anterior to the gallbladder with dilated GB on 12/08, had +ve HIDA scan 11/29 [employer] following, MBSS done, rec NDD1 and nectar thick liquids Continue PPN surgery following for J-tube placement , postpone surgery now as anesthesia raising risk of difficult extubation and need to stay in ICU post op. Family reconsidering the options if they opt not to go with surgery then Hospice is the most likely option. acute cholecystitis, transaminitis seen on CT of chest; US nondiagnostic; positive HIDA; completed abx course surgery appreciated, Drain GB Drain was placed on 12/09, found pulled out and next to the patient on 12/10 after draining total of 400cc or so LFT started to increase continue to monitor surgery following, consider repeat CT if worsens pain or increasing LFT paroxysmal AF/RVR Rate better controlled dc Cardizem IV drip Lopressor 5mg q6 iv, unable to tolerate PO Metoprolol 25 mg Q6 Lovenox 90mg Q12, hold before surgery Hold Eliquis acute hypoxic respiratory failure due to aspiration PNA & Pneumonitis completed course- 11/28 - 12/06/24- ceftriaxone + doxycycline + flagyl wean O2 as tolerated - down to 5L today on IV Steroids , wean down as toelrated recheck CXR prerenal ANDREA acute metabolic acidosis resolved after IV fluid hydration mild transaminitis stable, monitor subclinical hyperthyroidism repeat TFTs in 4-6 wk GERD, PPI MDD, continue olanzapine, nortriptylline, trazodone prostatism, finasteride VTE ppx apixaban on hold for surgery, on Lovenox full dose mechanical dispo eventual return to salty-psych ACP: Goals of care discussed as well with HCP. she discussed with family and decided to change his status to DNR\DNI for now. reason for continued hospitalization:hypoxia, on PPN, pending surgical intervention Quality Stroke Does the patient have a stroke diagnosis?: No VTE Prior VTE?: Yes VTE Risk Level:: Medical - moderate - high VTE Device Contraindication: Treatment Not Indicated VTE Drug Contraindication: N/A - Med Ordered
--- NOTE | 2024-12-14 14:14 | MHC.CM.PN ---
EMR reviewed and per MD rounds, pt is not medically cleared for discharge due to management of hypoxia, pt on PPN, pending surgical intervention for peg tube placement.
[2024-12-14] MEDS: 0.9 % Sodium Chloride Flush 3 ML SYRINGE IVFLUSH ×2 (16:23→19:59)
[2024-12-14] MEDS: LORazepam 2 MG/ML VIAL 0.5 MG IVPUSH (19:55)
[2024-12-14] MEDS: OLANZapine 7.5 MG TABLET PO (22:33)
[2024-12-14] MEDS: Melatonin 3 MG TABLET 6 MG PO (22:33)
[2024-12-14] MEDS: Nortriptyline HCl 25 MG CAPSULE 75 MG PO (22:33)
[2024-12-14] MEDS: Parenteral Nutrition 2,400 ML 100 ML IV (23:14)
[2024-12-15] VITALS (13 sets, daily range): BP systolic 99–152; BP diastolic 56–85; PULSE 76–113; RESP 18–20; TEMP 36.2–37.1; O2SAT 91–96
[2024-12-15] MEDS: Metoprolol Tartrate 5 MG/5 ML VIAL IVPUSH ×4 (00:34→23:44)
[2024-12-15] MEDS: Piperacillin Sodium/Tazobactam 4.5 GM in 0.9 % Sodium Chloride 100 ML IV ×4 (02:05→19:25)
[2024-12-15 06:59] LABS: Basophils Percent Auto 0.1 % (0-2); Hematocrit 30.3 % (42.0-52.0); Hemoglobin 10.5 g/dl (14.0-18.0); Imm Gran Abs Auto 0.16 X10*3/uL (0.00-0.03); Imm Gran Pct Auto 1.2 % (0.0-0.4); Lymphocytes Absolute Auto 0.8 X10*3/uL (1.2-4.9); Lymphocytes Percent Auto 5.9 % (20-40); MANUAL DIFF FLAG SCAN; Mean Corpuscular HGB Conc 34.7 g/dl (31.0-36.0); Mean Corpuscular Volume 98.1 fL (80.0-98.0); Mean Platelet Volume 9.2 fL (9.4-12.4); Monocytes Absolute Auto 1.7 X10*3/uL (0.1-1.2); Monocytes Percent Auto 12.5 % (2-11); Neutrophils Absolute Auto 10.6 x10*3/uL (2.0-8.3); Neutrophils Percent Auto 80.3 % (45-73); Platelet Count 333 X10*3/uL (160-400); Red Blood Count 3.09 X10*6/uL (4.60-5.80); Red Cell Distribution Width 14.1 % (11.0-16.0); SCAN SMEAR FLAG 1; White Blood Count 13.2 X10*3/uL (4.8-10.8)
[2024-12-15 07:16] LABS: Alanine Aminotransferase 86 U/L (0-40); Albumin Level 2.5 g/dL (3.5-5.0); Alkaline Phosphatase 122 U/L (39-117); Anion Gap 11 (12-20); Aspartate Amino Transferase 59 U/L (5-37); Bilirubin Direct 0.2 mg/dL (0.0-0.5); Bilirubin Total 0.3 mg/dL (0.0-1.0); Blood Urea Nitrogen 43 mg/dL (9-16); Carbon Dioxide 23 mmol/L (22-29); Chloride 108 mmol/L (96-108); Creatinine Clr Calc Pharmacy 82.2; Estimated Glomerular Filt Rate > 60; Glucose Random 182 mg/dL (60-115); Phosphorus 2.8 mg/dL (2.7-4.5); Potassium 3.8 mmol/L (3.3-5.1); Sodium 138 mmol/L (135-145); Total Protein 5.7 g/dL (6.5-8.0)
[2024-12-15] MEDS: Acetylcysteine 10 % 400 MG/4 ML VIAL INHALE ×2 (07:33→19:53)
[2024-12-15] MEDS: Albuterol/Iprat 2.5/0.5MG 3 ML AMPUL.NEB INHALE ×3 (07:33→19:53)
[2024-12-15 07:45] LABS: SLIDE REVIEW VERIFIED
--- NOTE | 2024-12-15 08:21 | PM.PNGS ---
Subjective Subjective Date of Service: 12/15/24 Interval history: No events reported Patient does not offer much with his mental status Physical Exam Vital Signs: Vital Signs: Last Vital Signs Temp 98.4 F 12/15/24 08:00 Pulse 90 12/15/24 08:00 Resp 20 12/15/24 08:00 BP 107/60 12/15/24 08:00 Pulse Ox 91 L 12/15/24 08:00 O2 Del Method Nasal Cannula, Ox ymask 12/15/24 08:00 O2 Flow Rate 3 12/14/24 11:34 BMI result Body Mass Index 27.5 Const: Other: Mildly short of breath, on O2 by face mask, limited cognitive function Resp: Other: Mildly short of breath Cardio: Rate: regular rate GI: Other: Low abdominal midline incision Palpation (GI): Soft to palpation, not firm, nontender and no guarding Objective Data Active Medications Acetaminophen (Acetaminophen 325 Mg Tablet) 650 mg PO Q6H PRN PRN Reason: Pain, Mild 1-3,fever,headache Acetylcysteine (Acetylcysteine 10 % 400 Mg/4 Ml Vial) 400 mg INHALE RBID [facility] Last Admin: 12/15/24 07:33 Dose: 400 mg Documented By: DANN Albuterol/Ipratropium (Albuterol/Iprat 2.5/0.5mg 3 Ml Ampul.Neb) 3 ml INHALE RQ6H WHILE AWAKE [facility] Last Admin: 12/15/24 07:33 Dose: 3 ml Documented By: DANN Calcium Carbonate (Calcium Carbonate 750 Mg Tab.Chew) 750 mg PO Q4H PRN PRN Reason: Heartburn Docusate Sodium (Docusate Sodium 100 Mg Capsule) 100 mg PO BID [facility] Last Admin: 12/14/24 22:34 Dose: Not Given Documented By: ANATOLY Non-Admin Reason: med can not be crushed Enoxaparin Sodium (Enoxaparin Sodium 100 Mg/Ml Syringe) 90 mg SUBCUT Q12H [facility] Last Admin: 12/15/24 00:41 Dose: Not Given Documented By: ANATOLY Non-Admin Reason: med held Ferrous Sulfate (Ferrous Sulfate 324 Mg Tablet.) 324 mg PO DAILY [facility] Last Admin: 12/14/24 07:56 Dose: Not Given Documented By: KADI Non-Admin Reason: NPO Finasteride (Finasteride 5 Mg Tablet) 5 mg PO DAILY [facility] Last Admin: 12/14/24 07:56 Dose: Not Given Documented By: KADI Non-Admin Reason: NPO Guaifenesin/Dextromethorphan (Guaifenesin Dm 200/20/10 Ml 10 Ml Syrup) 10 ml PO Q4H PRN PRN Reason: Cough Last Admin: 12/10/24 03:56 Dose: 10 ml Documented By: BROOKE Piperacillin Sod/Tazobactam (Sod 4.5 gm/ Sodium Chloride) 100 mls @ 200 mls/hr IV Q6H [facility] Last Infusion: 12/15/24 02:47 Dose: Infused Documented By: ANATOLY Nutrition (Parenteral) (Parenteral Nutrition) 2,400 mls @ 100 mls/hr IV .Q24H [facility]; Protocol Stop: 12/15/24 20:59 Last Admin: 12/14/24 23:14 Dose: 100 mls/hr Documented By: ANATOLY Nutrition (Parenteral) (Parenteral Nutrition) 2,400 mls @ 100 mls/hr IV .Q24H [facility]; Protocol Stop: 12/16/24 20:59 Lorazepam (Lorazepam 2 Mg/Ml Vial) 0.5 mg IVPUSH Q6H PRN PRN Reason: Anxiety Last Admin: 12/14/24 19:55 Dose: 0.5 mg Documented By: ANATOLY Magnesium Hydroxide (Milk Of Magnesia 30 Ml Oral.Susp) 30 ml PO DAILY PRN PRN Reason: Constipation Melatonin (Melatonin 3 Mg Tablet) 6 mg PO BEDTIME [facility] Last Admin: 12/14/24 22:33 Dose: 6 mg Documented By: ANATOLY Methylprednisolone Sodium Succinate (Methylprednisolone Sod Succ 40 Mg/Ml Vial) 40 mg IVPUSH Q24H [facility] Last Admin: 12/14/24 11:44 Dose: 40 mg Documented By: KADI Metoprolol Tartrate (Metoprolol Tartrate 5 Mg/5 Ml Vial) 5 mg IVPUSH Q6H [facility]; Protocol Last Admin: 12/15/24 05:39 Dose: 5 mg Documented By: ANATOLY Nortriptyline HCl (Nortriptyline Hcl 25 Mg Capsule) 75 mg PO BEDTIME [facility] Last Admin: 12/14/24 22:33 Dose: 75 mg Documented By: ANATOLY Olanzapine (Olanzapine 7.5 Mg Tablet) 7.5 mg PO BEDTIME [facility] Last Admin: 12/14/24 22:33 Dose: 7.5 mg Documented By: ANATOLY Olanzapine (Olanzapine 5 Mg Tablet) 5 mg PO BID PRN PRN Reason: Anxiety Last Admin: 12/09/24 01:21 Dose: 5 mg Documented By: COLLEEN Olanzapine (Olanzapine 2.5 Mg Tablet) 2.5 mg PO DAILY [facility] Last Admin: 12/14/24 07:56 Dose: Not Given Documented By: KADI Non-Admin Reason: NPO Ondansetron HCl (Ondansetron Odt 4 Mg Tab.Rapdis) 4 mg TRANSLINGU Q12H PRN PRN Reason: Nausea And Vomiting Last Admin: 11/29/24 21:43 Dose: 4 mg Documented By: LEWIS Oxybutynin Chloride (Oxybutynin Chloride 5 Mg Tablet) 5 mg PO DAILY [facility] Last Admin: 12/14/24 07:56 Dose: Not Given Documented By: KADI Non-Admin Reason: NPO Pharmacy Consult (Consult Rx Parenteral Nutrition Ordering) 1 each MISCELLANE DAILY PRN PRN Reason: Consult order Polyethylene Glycol (Polyethylene Glycol 3350 17 Gm Powd.Pack) 17 gm PO DAILY [facility] Last Admin: 12/14/24 07:56 Dose: Not Given Documented By: KADI Non-Admin Reason: NPO Senna (Sennosides 8.6 Mg Tablet) 8.6 mg PO BEDTIME PRN PRN Reason: Constipation Sodium Chloride (0.9 % Sodium Chloride Flush 3 Ml Syringe) 3 ml IVFLUSH QSHIFT [facility] Last Admin: 12/14/24 19:59 Dose: 3 ml Documented By: ANATOLY Trazodone HCl (Trazodone Hcl 50 Mg Tablet) 50 mg PO BEDTIME MRX1 PRN PRN Reason: Sleep Last Admin: 12/05/24 20:17 Dose: 50 mg Documented By: AJITH Vitamin D (Cholecalciferol (Vitamin D3) 10 Mcg Tablet) 10 mcg PO DAILY [facility] Last Admin: 12/14/24 07:56 Dose: Not Given Documented By: KADI Non-Admin Reason: NPO Labs 12/15/24 06:46 12/15/24 06:46 Labs: Laboratory Results - last 24 hr 12/14/24 12/15/24 08:39 06:46 MCV 98.1 H MCH 34.0 H MCHC 34.7 RDW 14.1 Plt Count 333 MPV 9.2 L Immature Gran % (Auto) 1.2 H Neut % (Auto) 80.3 H Lymph % (Auto) 5.9 L [place] % (Auto) 12.5 H Eos % (Auto) 0.0 Baso % (Auto) 0.1 Lymph # (Auto) 0.8 L [place] # (Auto) 1.7 H Eos # (Auto) 0.0 Baso # (Auto) 0.0 Abs Immat Gran (auto) 0.16 H Absolute Neuts (auto) 10.6 H Absolute Nucleated RBC 0.000 Nucleated RBC % (auto) 0.0 Smear Tech's Comments VERIFIED Anion Gap 11 L 11 L Estim Creat Clear Calc 83.3 82.2 Estimated GFR > 60 > 60 Random Glucose 149 H 182 H Calcium 8.5 8.0 L Phosphorus 3.3 2.8 Magnesium 2.0 2.0 Total Bilirubin 0.5 0.3 Direct Bilirubin 0.3 0.2 AST 63 H 59 H ALT 80 H 86 H Alkaline Phosphatase 123 H 122 H Total Protein 6.1 L 5.7 L Albumin 2.7 L 2.5 L Microbiology Microbiology Results: Microbiology 12/09/24 14:50 Gram Stain - Final Abscess Intra-abdominal Routine Culture - Preliminary No growth to date. Anaerobic Culture - Preliminary Procedures Date of Service Date of Service: 12/15/24 Progress Note: A&P Assessment and plan (1) Swallowing problem: Status: Acute Assessment and Plan: I had a long discussion a Brenda Amato, his healthcare proxy She wants to proceed with open jejunostomy tube placement I had a long discussion with her about the technique of the procedure I explained the risks including but not limited to bleeding, infections, injury to other organs including bowel, tube dislodgement, respiratory failure, tube leak, obstruction, [place] She does understand that there is a high likelihood that the patient will remain on the ventilator postop may need to be in the ICU She says that DNR issue will be in effect but this is to be suspended during the procedure I have placed the patient on the add on schedule OR for today; the anesthesiologists we will re-evaluate I have discussed the above with the supervisor customer services Time Spent With Patient Time: Total time managing care of this patient today ____ minutes. Quality Stroke Does the patient have a stroke diagnosis?: No VTE Prior VTE?: Yes VTE Risk Level:: Medical - moderate - high VTE Device Contraindication: Treatment Not Indicated VTE Drug Contraindication: N/A - Med Ordered
--- NOTE | 2024-12-15 09:26 | MHC.CLN ---
F/U PT'S PROCEDURE FOR J TUBE PLACEMENT SCHEDULED FOR TODAY PT REMAINS NPO REVIEWED LABS DISCUSSED WITH PHARMACY CONTINUE PPN AT MAX GOAL RATE 100ML/HR WITH 112G LIPIDS PROVIDES 2344 TOTAL KCALS (30KCALS/KG), 240G DEXTROSE, 102G PROTEIN (1.3G/KG) REPLETE LYTES NEEDED WILL CHANGE TO TUBE FEEDING TOMORROW WHEN ABLE PER MD FOLLOWING WITH TEAM
--- NOTE | 2024-12-15 10:28 | HO.PM.IMPN ---
Subjective Subjective Date of Service: 12/16/24 Interval History: Noted to have intermittent cough, offers no acute complaints of pain, does not communicate well. Review of Systems Unable to obtain due to mental status Physical Exam Vital Signs: Vital Signs: Last Vital Signs Temp 98.4 F 12/15/24 08:00 Pulse 90 12/15/24 08:00 Resp 20 12/15/24 08:00 BP 107/60 12/15/24 08:00 Pulse Ox 91 L 12/15/24 08:00 O2 Del Method Nasal Cannula, Ox ymask 12/15/24 08:00 O2 Flow Rate 3 12/14/24 11:34 BMI result Body Mass Index 27.5 Const: Other: Constitutional : interactive, not in distress,intermittent congested cough NEck no jvd Cardiovascular : regular Respiratory : bilateral chest movement, basal crackles , on O2 supplement Gastrointestinal: soft, Non tender, BS pos Skin : Warm, Dry no edema Neurological : Alert & oriented to self and place, No focal deficit Objective Data Active Medications Acetaminophen (Acetaminophen 325 Mg Tablet) 650 mg PO Q6H PRN PRN Reason: Pain, Mild 1-3,fever,headache Acetylcysteine (Acetylcysteine 10 % 400 Mg/4 Ml Vial) 400 mg INHALE RBID [facility] Last Admin: 12/15/24 07:33 Dose: 400 mg Documented By: DANN Albuterol/Ipratropium (Albuterol/Iprat 2.5/0.5mg 3 Ml Ampul.Neb) 3 ml INHALE RQ6H WHILE AWAKE [facility] Last Admin: 12/15/24 07:33 Dose: 3 ml Documented By: DANN Calcium Carbonate (Calcium Carbonate 750 Mg Tab.Chew) 750 mg PO Q4H PRN PRN Reason: Heartburn Docusate Sodium (Docusate Sodium 100 Mg Capsule) 100 mg PO BID [facility] Last Admin: 12/14/24 22:34 Dose: Not Given Documented By: ANATOLY Non-Admin Reason: med can not be crushed Enoxaparin Sodium (Enoxaparin Sodium 100 Mg/Ml Syringe) 90 mg SUBCUT Q12H [facility] Last Admin: 12/15/24 00:41 Dose: Not Given Documented By: ANATOLY Non-Admin Reason: med held Ferrous Sulfate (Ferrous Sulfate 324 Mg Tablet.Dr) 324 mg PO DAILY [facility] Last Admin: 12/14/24 07:56 Dose: Not Given Documented By: KADI Non-Admin Reason: NPO Finasteride (Finasteride 5 Mg Tablet) 5 mg PO DAILY [facility] Last Admin: 12/14/24 07:56 Dose: Not Given Documented By: KADI Non-Admin Reason: NPO Guaifenesin/Dextromethorphan (Guaifenesin Dm 200/20/10 Ml 10 Ml Syrup) 10 ml PO Q4H PRN PRN Reason: Cough Last Admin: 12/10/24 03:56 Dose: 10 ml Documented By: BROOKE Piperacillin Sod/Tazobactam (Sod 4.5 gm/ Sodium Chloride) 100 mls @ 200 mls/hr IV Q6H [facility] Last Infusion: 12/15/24 02:47 Dose: Infused Documented By: ANATOLY Nutrition (Parenteral) (Parenteral Nutrition) 2,400 mls @ 100 mls/hr IV .Q24H [facility]; Protocol Stop: 12/15/24 20:59 Last Admin: 12/14/24 23:14 Dose: 100 mls/hr Documented By: ANATOLY Nutrition (Parenteral) (Parenteral Nutrition) 2,400 mls @ 100 mls/hr IV .Q24H [facility]; Protocol Stop: 12/16/24 20:59 Lorazepam (Lorazepam 2 Mg/Ml Vial) 0.5 mg IVPUSH Q6H PRN PRN Reason: Anxiety Last Admin: 12/14/24 19:55 Dose: 0.5 mg Documented By: ANATOLY Magnesium Hydroxide (Milk Of Magnesia 30 Ml Oral.Susp) 30 ml PO DAILY PRN PRN Reason: Constipation Melatonin (Melatonin 3 Mg Tablet) 6 mg PO BEDTIME [facility] Last Admin: 12/14/24 22:33 Dose: 6 mg Documented By: ANATOLY Methylprednisolone Sodium Succinate (Methylprednisolone Sod Succ 40 Mg/Ml Vial) 40 mg IVPUSH Q24H [facility] Last Admin: 12/14/24 11:44 Dose: 40 mg Documented By: KADI Metoprolol Tartrate (Metoprolol Tartrate 5 Mg/5 Ml Vial) 5 mg IVPUSH Q6H [facility]; Protocol Last Admin: 12/15/24 05:39 Dose: 5 mg Documented By: ANATOLY Nortriptyline HCl (Nortriptyline Hcl 25 Mg Capsule) 75 mg PO BEDTIME [facility] Last Admin: 12/14/24 22:33 Dose: 75 mg Documented By: ANATOLY Olanzapine (Olanzapine 7.5 Mg Tablet) 7.5 mg PO BEDTIME [facility] Last Admin: 12/14/24 22:33 Dose: 7.5 mg Documented By: ANATOLY Olanzapine (Olanzapine 5 Mg Tablet) 5 mg PO BID PRN PRN Reason: Anxiety Last Admin: 12/09/24 01:21 Dose: 5 mg Documented By: COLLEEN Olanzapine (Olanzapine 2.5 Mg Tablet) 2.5 mg PO DAILY [facility] Last Admin: 12/14/24 07:56 Dose: Not Given Documented By: KADI Non-Admin Reason: NPO Ondansetron HCl (Ondansetron Odt 4 Mg Tab.Rapdis) 4 mg TRANSLINGU Q12H PRN PRN Reason: Nausea And Vomiting Last Admin: 11/29/24 21:43 Dose: 4 mg Documented By: LEWIS Oxybutynin Chloride (Oxybutynin Chloride 5 Mg Tablet) 5 mg PO DAILY [facility] Last Admin: 12/14/24 07:56 Dose: Not Given Documented By: KADI Non-Admin Reason: NPO Pharmacy Consult (Consult Rx Parenteral Nutrition Ordering) 1 each MISCELLANE DAILY PRN PRN Reason: Consult order Polyethylene Glycol (Polyethylene Glycol 3350 17 Gm Powd.Pack) 17 gm PO DAILY [facility] Last Admin: 12/14/24 07:56 Dose: Not Given Documented By: KADI Non-Admin Reason: NPO Senna (Sennosides 8.6 Mg Tablet) 8.6 mg PO BEDTIME PRN PRN Reason: Constipation Sodium Chloride (0.9 % Sodium Chloride Flush 3 Ml Syringe) 3 ml IVFLUSH QSHIFT [facility] Last Admin: 12/14/24 19:59 Dose: 3 ml Documented By: ANATOLY Trazodone HCl (Trazodone Hcl 50 Mg Tablet) 50 mg PO BEDTIME MRX1 PRN PRN Reason: Sleep Last Admin: 12/05/24 20:17 Dose: 50 mg Documented By: AJITH Vitamin D (Cholecalciferol (Vitamin D3) 10 Mcg Tablet) 10 mcg PO DAILY [facility] Last Admin: 12/14/24 07:56 Dose: Not Given Documented By: KADI Non-Admin Reason: NPO Labs 12/15/24 06:46 12/16/24 07:31 Labs: Laboratory Results - last 24 hr 12/15/24 06:46 MCV 98.1 H MCH 34.0 H MCHC 34.7 RDW 14.1 Plt Count 333 MPV 9.2 L Immature Gran % (Auto) 1.2 H Neut % (Auto) 80.3 H Lymph % (Auto) 5.9 L [place] % (Auto) 12.5 H Eos % (Auto) 0.0 Baso % (Auto) 0.1 Lymph # (Auto) 0.8 L [place] # (Auto) 1.7 H Eos # (Auto) 0.0 Baso # (Auto) 0.0 Abs Immat Gran (auto) 0.16 H Absolute Neuts (auto) 10.6 H Absolute Nucleated RBC 0.000 Nucleated RBC % (auto) 0.0 Smear Tech's Comments VERIFIED Anion Gap 11 L Estim Creat Clear Calc 82.2 Estimated GFR > 60 Random Glucose 182 H Calcium 8.0 L Phosphorus 2.8 Magnesium 2.0 Total Bilirubin 0.3 Direct Bilirubin 0.2 AST 59 H ALT 86 H Alkaline Phosphatase 122 H Total Protein 5.7 L Albumin 2.5 L Microbiology Microbiology Results: Microbiology 12/09/24 14:50 Gram Stain - Final Abscess Intra-abdominal Routine Culture - Final No growth. Anaerobic Culture - Final Gram variable tamera Assessment and Plan (1) Abdominal fluid collection: Status: Acute (2) Dilated gallbladder: Status: Acute (3) Swallowing problem: Status: Acute (4) Abnormal biliary HIDA scan: Status: Acute (5) Atrial flutter with rapid ventricular response: Status: Acute Plan 79M PMH prostate CA, hx PE [2020] on apixaban, vertigo, GERD, HLD, MDD + psychosis admitted to geriatric psychiatry 11/14 for anxiety + panic attacks, undergoing ECT. Had endoscopy with removal of esophageal foreign body, balloon dilation of esophageal stricture, and biopsy on 11/26/24. [employer] called 11/28 for tachycardia in 150s; found to have atrial flutter with RVR; given IV metoprolol, digoxin + diltiazem and transferred to telemetry Swallowing difficulties 2/ dysphagia, esophogeal stricture, type IV paraesophageal hernia s/p ballooning, PPI CT abd oval fluid collection anterior to the gallbladder with dilated GB on 12/08, had +ve HIDA scan 11/29 [employer] OPERATOR following, MBSS done, rec NDD1 and nectar thick liquids patient unable to tolerate Continue PPN surgery following for J-tube placement , postpone surgery now as anesthesia raising risk of difficult extubation and need to stay in ICU post op. Spoke with daughter Brenda healthcare proxy she wishes to proceed with surgery and will discuss with Dr. Garcia/ she agrees to change code status to full code for surgery and okay for postoperative admission to ICU if needed if requires continued ventilation. acute cholecystitis, transaminitis seen on CT of chest; US nondiagnostic; positive HIDA; completed abx course surgery appreciated, Drain GB Drain was placed on 12/09, found pulled out and next to the patient on 12/10 after draining total of 400cc or so LFT started to increase continue to monitor surgery following, consider repeat CT if worsens pain or increasing LFT paroxysmal AF/RVR Rate better controlled status post IV Cardizem drip Lopressor 5mg q6 iv, unable to tolerate PO Metoprolol 25 mg Q6 Lovenox 90mg Q12, hold before surgery Hold Eliquis acute hypoxic respiratory failure due to aspiration PNA & Pneumonitis completed course- 11/28 - 12/06/24- ceftriaxone + doxycycline + flagyl wean O2 as tolerated - down to 5L on IV Steroids , IV Zosyn, wean oxygen as tolerated check chest x-ray prerenal ANDREA acute metabolic acidosis resolved after IV fluid hydration mild transaminitis stable, monitor subclinical hyperthyroidism repeat TFTs in 4-6 wk GERD, PPI MDD, continue olanzapine, nortriptylline, trazodone prostatism, finasteride VTE ppx apixaban on hold for surgery, on Lovenox full dose mechanical dispo eventual return to salty-psych Quality Stroke Does the patient have a stroke diagnosis?: No VTE Prior VTE?: Yes VTE Risk Level:: Medical - moderate - high VTE Device Contraindication: Treatment Not Indicated VTE Drug Contraindication: N/A - Med Ordered
[2024-12-15] MEDS: Docusate Sodium 100 MG CAPSULE PO (11:10)
[2024-12-15] MEDS: OLANZapine 2.5 MG TABLET PO (12:07)
[2024-12-15] MEDS: oxyBUTYnin chloride 5 MG TABLET PO (12:07)
[2024-12-15] MEDS: Ferrous Sulfate 324 MG TABLET.DR PO (12:07)
[2024-12-15] MEDS: Cholecalciferol (Vitamin D3) 10 MCG TABLET PO (12:07)
[2024-12-15] MEDS: Finasteride 5 MG TABLET PO (12:07)
[2024-12-15] MEDS: methylPREDNISolone Sod Succ 40 MG/ML VIAL IVPUSH (12:08)
[2024-12-15] MEDS: 0.9 % Sodium Chloride Flush 3 ML SYRINGE IVFLUSH ×2 (12:08→18:15)
[2024-12-15] MEDS: Parenteral Nutrition 2,400 ML 100 ML IV (21:51)
[2024-12-16] VITALS (14 sets, daily range): BP systolic 107–137; BP diastolic 59–85; PULSE 88–102; RESP 18–28; TEMP 34.8–37.3; O2SAT 91–98
[2024-12-16] MEDS: Piperacillin Sodium/Tazobactam 4.5 GM in 0.9 % Sodium Chloride 100 ML IV ×4 (03:08→19:53)
[2024-12-16] MEDS: Metoprolol Tartrate 5 MG/5 ML VIAL IVPUSH ×2 (05:22→13:39)
[2024-12-16] MEDS: Albuterol/Iprat 2.5/0.5MG 3 ML AMPUL.NEB INHALE ×2 (07:39→19:06)
[2024-12-16] MEDS: Acetylcysteine 10 % 400 MG/4 ML VIAL INHALE ×2 (07:40→19:06)
--- NOTE | 2024-12-16 08:25 | PM.PNGS ---
Subjective Subjective Date of Service: 12/16/24 Interval history: no events reported as per respiratory therapist, respiratory status as baseline currently on 3 liters/minute of O2, on facemask Physical Exam Vital Signs: Vital Signs: Last Vital Signs Temp 98.4 F 12/16/24 07:44 Pulse 99 12/16/24 07:44 Resp 20 12/16/24 07:44 BP 129/77 12/16/24 07:44 Pulse Ox 92 12/16/24 07:44 O2 Del Method Oxymask 12/16/24 07:44 O2 Flow Rate 3 12/16/24 07:44 BMI result Body Mass Index 27.5 Const: Other: some shortness of breath Resp: Other: some shortness of Cardio: Rhythm: regular rhythm GI: Other: low midline surgical incision from previous Paula's procedure Palpation (GI): Soft to palpation, not firm, nontender and no guarding Objective Data Active Medications Acetaminophen (Acetaminophen 325 Mg Tablet) 650 mg PO Q6H PRN PRN Reason: Pain, Mild 1-3,fever,headache Acetylcysteine (Acetylcysteine 10 % 400 Mg/4 Ml Vial) 400 mg INHALE RBID [facility] Last Admin: 12/16/24 07:40 Dose: 400 mg Documented By: CAMERON Albuterol/Ipratropium (Albuterol/Iprat 2.5/0.5mg 3 Ml Ampul.Neb) 3 ml INHALE RQ6H WHILE AWAKE [facility] Last Admin: 12/16/24 07:39 Dose: 3 ml Documented By: CAMERON Calcium Carbonate (Calcium Carbonate 750 Mg Tab.Chew) 750 mg PO Q4H PRN PRN Reason: Heartburn Docusate Sodium (Docusate Sodium 100 Mg Capsule) 100 mg PO BID [facility] Last Admin: 12/15/24 22:00 Dose: Not Given Documented By: ANATOLY Non-Admin Reason: Patient Refused Enoxaparin Sodium (Enoxaparin Sodium 100 Mg/Ml Syringe) 90 mg SUBCUT Q12H [facility] Last Admin: 12/15/24 00:41 Dose: Not Given Documented By: ANATOLY Non-Admin Reason: med held Ferrous Sulfate (Ferrous Sulfate 324 Mg Tablet.) 324 mg PO DAILY [facility] Last Admin: 12/15/24 12:07 Dose: 324 mg Documented By: NAHEED Finasteride (Finasteride 5 Mg Tablet) 5 mg PO DAILY [facility] Last Admin: 12/15/24 12:07 Dose: 5 mg Documented By: NAHEED Guaifenesin/Dextromethorphan (Guaifenesin Dm 200/20/10 Ml 10 Ml Syrup) 10 ml PO Q4H PRN PRN Reason: Cough Last Admin: 12/10/24 03:56 Dose: 10 ml Documented By: BROOKE Piperacillin Sod/Tazobactam (Sod 4.5 gm/ Sodium Chloride) 100 mls @ 200 mls/hr IV Q6H [facility] Last Infusion: 12/16/24 03:53 Dose: Infused Documented By: ANATOLY Nutrition (Parenteral) (Parenteral Nutrition) 2,400 mls @ 100 mls/hr IV .Q24H [facility]; Protocol Stop: 12/16/24 20:59 Last Admin: 12/15/24 21:51 Dose: 100 mls/hr Documented By: ANATOLY Lorazepam (Lorazepam 2 Mg/Ml Vial) 0.5 mg IVPUSH Q6H PRN PRN Reason: Anxiety Last Admin: 12/14/24 19:55 Dose: 0.5 mg Documented By: ANATOLY Magnesium Hydroxide (Milk Of Magnesia 30 Ml Oral.Susp) 30 ml PO DAILY PRN PRN Reason: Constipation Melatonin (Melatonin 3 Mg Tablet) 6 mg PO BEDTIME [facility] Last Admin: 12/15/24 22:00 Dose: Not Given Documented By: ANATOLY Non-Admin Reason: Patient Refused Methylprednisolone Sodium Succinate (Methylprednisolone Sod Succ 40 Mg/Ml Vial) 40 mg IVPUSH Q24H [facility] Last Admin: 12/15/24 12:08 Dose: 40 mg Documented By: NAHEED Metoprolol Tartrate (Metoprolol Tartrate 5 Mg/5 Ml Vial) 5 mg IVPUSH Q6H [facility]; Protocol Last Admin: 12/16/24 05:22 Dose: 5 mg Documented By: ANATOLY Nortriptyline HCl (Nortriptyline Hcl 25 Mg Capsule) 75 mg PO BEDTIME [facility] Last Admin: 12/15/24 22:00 Dose: Not Given Documented By: ANATOLY Non-Admin Reason: Patient Refused Olanzapine (Olanzapine 7.5 Mg Tablet) 7.5 mg PO BEDTIME [facility] Last Admin: 12/15/24 22:00 Dose: Not Given Documented By: ANATOLY Non-Admin Reason: Patient Refused Olanzapine (Olanzapine 5 Mg Tablet) 5 mg PO BID PRN PRN Reason: Anxiety Last Admin: 12/09/24 01:21 Dose: 5 mg Documented By: COLLEEN Olanzapine (Olanzapine 2.5 Mg Tablet) 2.5 mg PO DAILY [facility] Last Admin: 12/15/24 12:07 Dose: 2.5 mg Documented By: NAHEED Ondansetron HCl (Ondansetron Odt 4 Mg Tab.Rapdis) 4 mg TRANSLINGU Q12H PRN PRN Reason: Nausea And Vomiting Last Admin: 11/29/24 21:43 Dose: 4 mg Documented By: LEWIS Oxybutynin Chloride (Oxybutynin Chloride 5 Mg Tablet) 5 mg PO DAILY [facility] Last Admin: 12/15/24 12:07 Dose: 5 mg Documented By: NAHEED Pharmacy Consult (Consult Rx Parenteral Nutrition Ordering) 1 each MISCELLANE DAILY PRN PRN Reason: Consult order Polyethylene Glycol (Polyethylene Glycol 3350 17 Gm Powd.Pack) 17 gm PO DAILY [facility] Last Admin: 12/15/24 12:08 Dose: Not Given Documented By: NAHEED Non-Admin Reason: NPO Senna (Sennosides 8.6 Mg Tablet) 8.6 mg PO BEDTIME PRN PRN Reason: Constipation Sodium Chloride (0.9 % Sodium Chloride Flush 3 Ml Syringe) 3 ml IVFLUSH QSHIFT [facility] Last Admin: 12/15/24 23:51 Dose: Not Given Documented By: ANATOLY Non-Admin Reason: IV Running Trazodone HCl (Trazodone Hcl 50 Mg Tablet) 50 mg PO BEDTIME MRX1 PRN PRN Reason: Sleep Last Admin: 12/05/24 20:17 Dose: 50 mg Documented By: AJITH Vitamin D (Cholecalciferol (Vitamin D3) 10 Mcg Tablet) 10 mcg PO DAILY [facility] Last Admin: 12/15/24 12:07 Dose: 10 mcg Documented By: NAHEED Labs 12/15/24 06:46 12/16/24 07:31 Labs: Laboratory Results - last 24 hr 12/16/24 07:31 Hold Purple Top SEE NOTE Microbiology Microbiology Results: Microbiology 12/09/24 14:50 Gram Stain - Final Abscess Intra-abdominal Routine Culture - Final No growth. Anaerobic Culture - Final Gram variable tamera Procedures Date of Service Date of Service: 12/16/24 Progress Note: A&P Assessment and plan (1) Swallowing problem: Status: Acute Assessment and Plan: jejunostomy tube placement was canceled yesterday - anesthesia had felt respiratory status should be improved I had a long discussion with the patient was daughter Brenda who is his HCP last night she says she has talked to her family and now they are willing for him to go to the ICU intubated postop if necessary for a few days after jejunostomy tube placement she understands that patient presents with significant perioperative risks especially with his respiratory status Time Spent With Patient Time: Total time managing care of this patient today ____ minutes. Quality Stroke Does the patient have a stroke diagnosis?: No VTE Prior VTE?: Yes VTE Risk Level:: Medical - moderate - high VTE Device Contraindication: Treatment Not Indicated VTE Drug Contraindication: N/A - Med Ordered
[2024-12-16 08:46] LABS: Albumin Level 2.5 g/dL (3.5-5.0); Anion Gap 9 (12-20); Blood Urea Nitrogen 33 mg/dL (9-16); Calcium 8.3 mg/dL (8.4-10.2); Carbon Dioxide 24 mmol/L (22-29); Chloride 108 mmol/L (96-108); Creatinine Clr Calc Pharmacy 90.7; Estimated Glomerular Filt Rate > 60; Glucose Random 195 mg/dL (60-115); Magnesium 2.1 mg/dL (1.6-2.6); Phosphorus 2.4 mg/dL (2.7-4.5); Potassium 3.8 mmol/L (3.3-5.1); Sodium 137 mmol/L (135-145)
[2024-12-16] MEDS: methylPREDNISolone Sod Succ 40 MG/ML VIAL IVPUSH (10:11)
[2024-12-16] MEDS: 0.9 % Sodium Chloride Flush 3 ML SYRINGE IVFLUSH (10:12)
[2024-12-16] MEDS: Docusate Sodium 100 MG CAPSULE PO (10:12)
[2024-12-16] MEDS: Ferrous Sulfate 324 MG TABLET.DR PO (10:12)
[2024-12-16] MEDS: Finasteride 5 MG TABLET PO (10:12)
[2024-12-16] MEDS: Cholecalciferol (Vitamin D3) 10 MCG TABLET PO (10:12)
[2024-12-16] MEDS: oxyBUTYnin chloride 5 MG TABLET PO (10:12)
[2024-12-16] MEDS: OLANZapine 2.5 MG TABLET PO (10:12)
--- NOTE | 2024-12-16 10:24 | MHC.CLN ---
F/U PT'S PROCEDURE FOR J TUBE PLACEMENT PENDING PT REMAINS NPO REVIEWED LABS DISCUSSED WITH PHARMACY CONTINUE PPN AT MAX GOAL RATE 100ML/HR WITH 112G LIPIDS PROVIDES 2344 TOTAL KCALS (30KCALS/KG), 240G DEXTROSE, 102G PROTEIN (1.3G/KG) REPLETE LYTES NEEDED FOLLOWING WITH TEAM CONTINUE PPN AT MAX GOAL RATE THROUGH [address] CAN BE REACHED DURING OFF HOURS VIA TIGER CONNECT IF NEEDED
--- NOTE | 2024-12-16 10:52 | MHC.SLORD ---
Speech Language Pathology Order Status: Per Dr. Cary, patient is NPO, scheduled for J-tube placement today. No PO trials given. FLAP CURER will continue to follow.
--- NOTE | 2024-12-16 14:20 | HO.ANESPROP2 ---
Documented by User: Shaniqua Regan MD 12/16/24 14:21 HPI - Anesthesia Eval Consult details Narrative: 79 yo male patient for Jejunistomy tube placement PMFSH Active Problems Active Problems: All Active Problems Abdominal fluid collection (Acute) Dilated gallbladder (Acute) Swallowing problem (Acute) Abnormal biliary HIDA scan (Acute) Atrial flutter with rapid ventricular response (Acute) Atrial flutter by electrocardiogram (Acute) Anxiety (Acute) Major depressive disorder, recurrent, severe with psychotic features (Acute) Depression (Acute) Physical deconditioning (Acute) Preoperative cardiovascular examination (Acute) Anemia (Acute) GERD (gastroesophageal reflux disease) (Acute) Past Medical History Medical History Abnormal biliary HIDA scan COVID-19 vaccine administered History of electroconvulsive therapy Major depressive disorder, recurrent, severe with psychotic features Pulmonary embolism Diverticulitis of colon with perforation Hyperlipidemia HTN (hypertension) Dementia GERD (gastroesophageal reflux disease) Depression SVT (supraventricular tachycardia) Family History Family History Brother Blood clot in vein Other No history of cardiac disorder Family history of problems with anesthesia: No Surgical History Surgical History History of esophagogastroduodenoscopy (EGD) H/O colonoscopy Status post Paula's procedure History of colostomy reversal H/O hernia repair History of Problems with Anesthesia: No Social History Social History Household Members: None Housing: Assisted Living Facility Are you a primary tire care manager to a significant other at home: No Do you presently have visiting nurse or other home services: No Alcohol intake: former Comment: headache better Patient Tobacco Use Status: Never used Tobacco Second Hand Smoke Exposure: No Use of substances other than those prescribed or required for medical reasons: No Currently Displaying Signs/Symptoms of Drug Intoxication Withdrawal: No Have you been hit, kicked, punched, or otherwise hurt by someone within the past year? If so, by whom?: No Do you feel safe in your current relationship?: No Current Relationship Is there a partner from a previous relationship who is making you feel unsafe now?: No Are you made to feel afraid or neglected: No Are you DNR?: Yes Advance Directives: Yes Advance Directives on File: Yes Advance Directives Date on File: 06/22/23 Recently lost weight without trying: No Nutrition Risks: Receiving home tube feeding or CPN Poor oral hygiene: No service: No Current occupational status: retired Sexual orientation: Straight/Heterosexual Meds Allergies Allergy/AdvReac Type Severity Reaction Status Date / Time No Known Allergies Allergy Verified 12/16/24 14:20 [No Known Allergies*] Active Medications: Current Medications Acetaminophen (Acetaminophen 325 Mg Tablet) 650 mg PO Q6H PRN PRN Reason: Pain, Mild 1-3,fever,headache Acetylcysteine (Acetylcysteine 10 % 400 Mg/4 Ml Vial) 400 mg INHALE RBID [facility] Last Admin: 12/16/24 07:40 Dose: 400 mg Albuterol/Ipratropium (Albuterol/Iprat 2.5/0.5mg 3 Ml Ampul.Neb) 3 ml INHALE RQ6H WHILE AWAKE [facility] Last Admin: 12/16/24 07:39 Dose: 3 ml Calcium Carbonate (Calcium Carbonate 750 Mg Tab.Chew) 750 mg PO Q4H PRN PRN Reason: Heartburn Docusate Sodium (Docusate Sodium 100 Mg Capsule) 100 mg PO BID [facility] Last Admin: 12/16/24 10:12 Dose: 100 mg Enoxaparin Sodium (Enoxaparin Sodium 100 Mg/Ml Syringe) 90 mg SUBCUT Q12H [facility] Last Admin: 12/15/24 00:41 Dose: Not Given Ferrous Sulfate (Ferrous Sulfate 324 Mg Tablet.) 324 mg PO DAILY [facility] Last Admin: 12/16/24 10:12 Dose: 324 mg Finasteride (Finasteride 5 Mg Tablet) 5 mg PO DAILY [facility] Last Admin: 12/16/24 10:12 Dose: 5 mg Guaifenesin/Dextromethorphan (Guaifenesin Dm 200/20/10 Ml 10 Ml Syrup) 10 ml PO TID [facility] Piperacillin Sod/Tazobactam (Sod 4.5 gm/ Sodium Chloride) 100 mls @ 200 mls/hr IV Q6H [facility] Last Admin: 12/16/24 13:45 Dose: 200 mls/hr Nutrition (Parenteral) (Parenteral Nutrition) 2,400 mls @ 100 mls/hr IV .Q24H [facility]; Protocol Stop: 12/16/24 20:59 Last Admin: 12/15/24 21:51 Dose: 100 mls/hr Nutrition (Parenteral) (Parenteral Nutrition) 2,400 mls @ 100 mls/hr IV .Q24H [facility]; Protocol Stop: 12/17/24 20:59 Lorazepam (Lorazepam 2 Mg/Ml Vial) 0.5 mg IVPUSH Q6H PRN PRN Reason: Anxiety Last Admin: 12/14/24 19:55 Dose: 0.5 mg Magnesium Hydroxide (Milk Of Magnesia 30 Ml Oral.Susp) 30 ml PO DAILY PRN PRN Reason: Constipation Melatonin (Melatonin 3 Mg Tablet) 6 mg PO BEDTIME [facility] Last Admin: 12/15/24 22:00 Dose: Not Given Methylprednisolone Sodium Succinate (Methylprednisolone Sod Succ 40 Mg/Ml Vial) 40 mg IVPUSH Q24H [facility] Last Admin: 12/16/24 10:11 Dose: 40 mg Metoprolol Tartrate (Metoprolol Tartrate 5 Mg/5 Ml Vial) 5 mg IVPUSH Q6H [facility]; Protocol Last Admin: 12/16/24 13:39 Dose: 5 mg Nortriptyline HCl (Nortriptyline Hcl 25 Mg Capsule) 75 mg PO BEDTIME [facility] Last Admin: 12/15/24 22:00 Dose: Not Given Olanzapine (Olanzapine 7.5 Mg Tablet) 7.5 mg PO BEDTIME ROMMEL Last Admin: 12/15/24 22:00 Dose: Not Given Olanzapine (Olanzapine 5 Mg Tablet) 5 mg PO BID PRN PRN Reason: Anxiety Last Admin: 12/09/24 01:21 Dose: 5 mg Olanzapine (Olanzapine 2.5 Mg Tablet) 2.5 mg PO DAILY [facility] Last Admin: 12/16/24 10:12 Dose: 2.5 mg Ondansetron HCl (Ondansetron Odt 4 Mg Tab.Rapdis) 4 mg TRANSLINGU Q12H PRN PRN Reason: Nausea And Vomiting Last Admin: 11/29/24 21:43 Dose: 4 mg Oxybutynin Chloride (Oxybutynin Chloride 5 Mg Tablet) 5 mg PO DAILY [facility] Last Admin: 12/16/24 10:12 Dose: 5 mg Pharmacy Consult (Consult Rx Parenteral Nutrition Ordering) 1 each MISCELLANE DAILY PRN PRN Reason: Consult order Polyethylene Glycol (Polyethylene Glycol 3350 17 Gm Powd.Pack) 17 gm PO DAILY [facility] Last Admin: 12/16/24 10:55 Dose: Not Given Senna (Sennosides 8.6 Mg Tablet) 8.6 mg PO BEDTIME PRN PRN Reason: Constipation Sodium Chloride (0.9 % Sodium Chloride Flush 3 Ml Syringe) 3 ml IVFLUSH QSHIFT [facility] Last Admin: 12/16/24 10:12 Dose: 3 ml Trazodone HCl (Trazodone Hcl 50 Mg Tablet) 50 mg PO BEDTIME MRX1 PRN PRN Reason: Sleep Last Admin: 12/05/24 20:17 Dose: 50 mg Vitamin D (Cholecalciferol (Vitamin D3) 10 Mcg Tablet) 10 mcg PO DAILY [facility] Last Admin: 12/16/24 10:12 Dose: 10 mcg Home Medications ?Medication ?Instructions ?Recorded ?Confirmed ?Last Taken ?Type omeprazole 40 mg capsule,delayed 40 mg PO DAILY@0630 11/14/24 11/28/24 11/27/24 History release polyethylene glycol 3350 17 17 g PO DAILY 11/14/24 11/28/24 11/27/24 History gram/dose oral powder (Miralax) sennosides 8.6 mg tablet (Senna 8.6 mg PO BEDTIME PRN Constipation 11/14/24 11/28/24 Unknown History Lax) nortriptyline 25 mg capsule 100 mg PO BEDTIME 11/28/24 11/28/24 11/27/24 History olanzapine 5 mg tablet 5 mg PO BID PRN Anxiety 11/28/24 11/28/24 11/27/24 History trazodone 50 mg tablet 50 mg PO BEDTIME PRN Sleep 11/28/24 11/28/24 11/25/24 History Exam Height,Weight and Vital Signs: Height 5 ft 11 in Weight 89.5 kg Last Vital Signs Temp 98.2 F 12/16/24 11:36 Pulse 102 H 12/16/24 11:36 Resp 28 H 12/16/24 11:36 BP 128/73 12/16/24 11:36 Pulse Ox 92 12/16/24 11:36 O2 Del Method Oxymask 12/16/24 11:36 O2 Flow Rate 3 12/16/24 11:36 Pertinent Lab Results Pertinent Lab Results: Laboratory Tests 11/28/24 11/28/24 11/28/24 07:17 07:19 18:00 WBC 14.9 H RBC 3.73 L Hgb 12.7 L Hct 37.3 L MCV 100.0 H MCH 34.0 H MCHC 34.0 RDW 13.9 Plt Count 205 D MPV 9.3 L Immature Gran % (Auto) 0.7 H Neut % (Auto) 88.4 H Lymph % (Auto) 2.3 L [place] % (Auto) 8.3 Eos % (Auto) 0.1 Baso % (Auto) 0.2 Lymph # (Auto) 0.3 L [place] # (Auto) 1.2 Eos # (Auto) 0.0 Baso # (Auto) 0.0 Abs Immat Gran (auto) 0.10 H Absolute Neuts (auto) 13.2 H Absolute Nucleated RBC 0.000 Nucleated RBC % (auto) 0.0 Smear Tech's Comments Hold Purple Top VBG pH VBG pCO2 VBG pO2 VBG HCO3 VBG O2 Saturation VBG Base Excess Sodium 140 Potassium 3.9 Chloride 107 Carbon Dioxide 19 L Anion Gap 18 BUN 51 H Creatinine 1.61 H Estim Creat Clear Calc TNP Estimated GFR 41 POC Glucose Random Glucose 182 H Estimat Average Glucose 131 Hemoglobin A1c % 6.2 H Calcium 9.3 Phosphorus Magnesium 1.9 Total Bilirubin 1.4 H Direct Bilirubin AST 78 H ALT 52 H Alkaline Phosphatase 131 H Troponin I High Sens 18.4 B-Natriuretic Peptide 64 Total Protein 6.6 Albumin 3.4 L Triglycerides Procalcitonin 1.52 TSH 0.13 L Free T4 1.44 Hold Yellow Top See Note Nasal Screen MRSA (PCR) Nasal S. aureus Screen Nasal MRSA/S.aureus Interp Stl C. cayetanensis PCR Stool Rotavirus A PCR Stl Adenov F PCR Stool Astrovirus (PCR) Stool Campylobacter PCR Stool Cryptosporidium PCR Stl Sh Tox Pr E STEC PCR Stool E coli O157 PCR Stl Enterotoxigenic E PCR Stool EPEC (PCR) Stool EAEC (PCR) Stl E. histolytica PCR Stool Giardia Lamblia PCR Stl P. shigelloides PCR Stool Salmonella PCR Stool Sapovirus (PCR) Stl Shigella/EIEC PCR St Y.enterocolitica PCR Stool Vibrio (PCR) Stl Vibrio cholerae PCR Stl Norovirus GI/GII PCR Nortriptyline C. difficile Tox B Gene Influenza Type A (PCR) Influenza Type B (PCR) Ur L.pneumophila Ag Not Detected RSV RNA Qual (PCR) SARS-CoV-2 RNA (RT-PCR) Ur Strep pneumoniae Ag Not Detected 11/28/24 11/29/24 11/29/24 18:58 00:10 06:40 WBC 13.6 H RBC 3.31 L Hgb 11.2 L Hct 33.0 L MCV 99.7 H MCH 33.8 H MCHC 33.9 RDW 14.1 Plt Count 184 MPV 9.1 L Immature Gran % (Auto) Neut % (Auto) Lymph % (Auto) [place] % (Auto) Eos % (Auto) Baso % (Auto) Lymph # (Auto) [place] # (Auto) Eos # (Auto) Baso # (Auto) Abs Immat Gran (auto) Absolute Neuts (auto) Absolute Nucleated RBC 0.000 Nucleated RBC % (auto) 0.0 Smear Tech's Comments Hold Purple Top VBG pH VBG pCO2 VBG pO2 VBG HCO3 VBG O2 Saturation VBG Base Excess Sodium 143 Potassium 3.8 Chloride 114 H Carbon Dioxide 20 L Anion Gap 13 BUN 46 H Creatinine 0.97 Estim Creat Clear Calc 63.6 Estimated GFR > 60 POC Glucose Random Glucose 135 H Estimat Average Glucose Hemoglobin A1c % Calcium 8.7 Phosphorus Magnesium Total Bilirubin 0.8 Direct Bilirubin AST 59 H ALT 47 H Alkaline Phosphatase 125 H Troponin I High Sens B-Natriuretic Peptide 228 H Total Protein 5.9 L Albumin 2.9 L Triglycerides Procalcitonin TSH Free T4 Hold Yellow Top Nasal Screen MRSA (PCR) NEGATIVE Nasal S. aureus Screen POSITIVE A Nasal MRSA/S.aureus Interp SEE NOTE Stl C. cayetanensis PCR Stool Rotavirus A PCR Stl Adenov F 40/41 PCR Stool Astrovirus (PCR) Stool Campylobacter PCR Stool Cryptosporidium PCR Stl Sh Tox Pr E STEC PCR Stool E coli O157 PCR Stl Enterotoxigenic E PCR Stool EPEC (PCR) Stool EAEC (PCR) Stl E. histolytica PCR Stool Giardia Lamblia PCR Stl P. shigelloides PCR Stool Salmonella PCR Stool Sapovirus (PCR) Stl Shigella/EIEC PCR St Y.enterocolitica PCR Stool Vibrio (PCR) Stl Vibrio cholerae PCR Stl Norovirus GI/GII PCR Nortriptyline C. difficile Tox B Gene Influenza Type A (PCR) NEGATIVE Influenza Type B (PCR) NEGATIVE Ur L.pneumophila Ag RSV RNA Qual (PCR) NEGATIVE SARS-CoV-2 RNA (RT-PCR) NEGATIVE Ur Strep pneumoniae Ag 11/29/24 11/30/24 11/30/24 06:45 06:37 08:09 WBC 11.9 H RBC 3.10 L Hgb 10.5 L Hct 31.1 L MCV 100.3 H MCH 33.9 H MCHC 33.8 RDW 14.2 Plt Count 175 MPV 9.4 Immature Gran % (Auto) Neut % (Auto) Lymph % (Auto) [place] % (Auto) Eos % (Auto) Baso % (Auto) Lymph # (Auto) [place] # (Auto) Eos # (Auto) Baso # (Auto) Abs Immat Gran (auto) Absolute Neuts (auto) Absolute Nucleated RBC 0.000 Nucleated RBC % (auto) 0.0 Smear Tech's Comments Hold Purple Top VBG pH 7.49 H VBG pCO2 28 VBG pO2 113 VBG HCO3 21 L VBG O2 Saturation 99.0 VBG Base Excess -0.3 Sodium 144 Potassium 3.6 Chloride 114 H Carbon Dioxide 22 Anion Gap 12 BUN 38 H Creatinine 0.80 Estim Creat Clear Calc 77.1 Estimated GFR > 60 POC Glucose Random Glucose 126 H Estimat Average Glucose Hemoglobin A1c % Calcium 8.5 Phosphorus Magnesium Total Bilirubin 0.8 Direct Bilirubin AST 67 H ALT 43 H Alkaline Phosphatase 131 H Troponin I High Sens B-Natriuretic Peptide Total Protein 5.5 L Albumin 2.7 L Triglycerides Procalcitonin 0.53 TSH Free T4 Hold Yellow Top Nasal Screen MRSA (PCR) Nasal S. aureus Screen Nasal MRSA/S.aureus Interp Stl C. cayetanensis PCR Stool Rotavirus A PCR Stl Adenov F 40/41 PCR Stool Astrovirus (PCR) Stool Campylobacter PCR Stool Cryptosporidium PCR Stl Sh Tox Pr E STEC PCR Stool E coli O157 PCR Stl Enterotoxigenic E PCR Stool EPEC (PCR) Stool EAEC (PCR) Stl E. histolytica PCR Stool Giardia Lamblia PCR Stl P. shigelloides PCR Stool Salmonella PCR Stool Sapovirus (PCR) Stl Shigella/EIEC PCR St Y.enterocolitica PCR Stool Vibrio (PCR) Stl Vibrio cholerae PCR Stl Norovirus GI/GII PCR Nortriptyline 88 C. difficile Tox B Gene Influenza Type A (PCR) Influenza Type B (PCR) Ur L.pneumophila Ag RSV RNA Qual (PCR) SARS-CoV-2 RNA (RT-PCR) Ur Strep pneumoniae Ag 11/30/24 12/01/24 12/02/24 14:38 06:40 05:56 WBC 12.6 H 8.8 RBC 3.09 L 3.27 L Hgb 10.4 L 10.8 L Hct 30.7 L 32.7 L MCV 99.4 H 100.0 H MCH 33.7 H 33.0 MCHC 33.9 33.0 RDW 14.4 14.6 Plt Count 176 180 MPV 8.9 L 9.4 Immature Gran % (Auto) Neut % (Auto) Lymph % (Auto) [place] % (Auto) Eos % (Auto) Baso % (Auto) Lymph # (Auto) [place] # (Auto) Eos # (Auto) Baso # (Auto) Abs Immat Gran (auto) Absolute Neuts (auto) Absolute Nucleated RBC 0.000 0.000 Nucleated RBC % (auto) 0.0 0.0 Smear Tech's Comments Hold Purple Top VBG pH VBG pCO2 VBG pO2 VBG HCO3 VBG O2 Saturation VBG Base Excess Sodium 144 146 H Potassium 3.3 3.4 Chloride 115 H 115 H Carbon Dioxide 23 24 Anion Gap 9 L 10 L BUN 32 H 30 H Creatinine 0.76 0.72 Estim Creat Clear Calc 81.1 85.7 Estimated GFR > 60 > 60 POC Glucose Random Glucose 137 H 133 H Estimat Average Glucose Hemoglobin A1c % Calcium 8.4 8.7 Phosphorus Magnesium 1.7 Total Bilirubin Direct Bilirubin AST ALT Alkaline Phosphatase Troponin I High Sens B-Natriuretic Peptide Total Protein Albumin Triglycerides Procalcitonin TSH Free T4 Hold Yellow Top Nasal Screen MRSA (PCR) Nasal S. aureus Screen Nasal MRSA/S.aureus Interp Stl C. cayetanensis PCR Not Detected Stool Rotavirus A PCR Not Detected Stl Adenov F 40/ PCR Not Detected Stool Astrovirus (PCR) Not Detected Stool Campylobacter PCR Not Detected Stool Cryptosporidium PCR Not Detected Stl Sh Tox Pr E STEC PCR Not Detected Stool E coli O157 PCR Not applicable Stl Enterotoxigenic E PCR Not Detected Stool EPEC (PCR) Not Detected Stool EAEC (PCR) Not Detected Stl E. histolytica PCR Not Detected Stool Giardia Lamblia PCR Not Detected Stl P. shigelloides PCR Not Detected Stool Salmonella PCR Not Detected Stool Sapovirus (PCR) Not Detected Stl Shigella/EIEC PCR Not Detected St Y.enterocolitica PCR Not Detected Stool Vibrio (PCR) Not Detected Stl Vibrio cholerae PCR Not Detected Stl Norovirus GI/GII PCR Detected A Nortriptyline C. difficile Tox B Gene NEGATIVE Influenza Type A (PCR) Influenza Type B (PCR) Ur L.pneumophila Ag RSV RNA Qual (PCR) SARS-CoV-2 RNA (RT-PCR) Ur Strep pneumoniae Ag 12/03/24 12/04/24 12/04/24 15:32 06:01 08:11 WBC 7.1 8.3 RBC 3.38 L 3.24 L Hgb 11.4 L 11.0 L Hct 33.3 L 32.6 L MCV 98.5 H 100.6 H MCH 33.7 H 34.0 H MCHC 34.2 33.7 RDW 14.9 15.0 Plt Count 204 172 MPV 9.5 10.0 Immature Gran % (Auto) Neut % (Auto) Lymph % (Auto) [place] % (Auto) Eos % (Auto) Baso % (Auto) Lymph # (Auto) [place] # (Auto) Eos # (Auto) Baso # (Auto) Abs Immat Gran (auto) Absolute Neuts (auto) Absolute Nucleated RBC 0.000 0.000 Nucleated RBC % (auto) 0.0 0.0 Smear Tech's Comments Hold Purple Top VBG pH VBG pCO2 VBG pO2 VBG HCO3 VBG O2 Saturation VBG Base Excess Sodium 145 144 Potassium 4.0 3.6 Chloride 116 H 117 H Carbon Dioxide 20 L 19 L Anion Gap 13 12 BUN 27 H 27 H Creatinine 0.71 0.71 Estim Creat Clear Calc 86.9 86.9 Estimated GFR > 60 > 60 POC Glucose Random Glucose 117 H 109 Estimat Average Glucose Hemoglobin A1c % Calcium 8.2 L 8.1 L Phosphorus Magnesium Total Bilirubin Direct Bilirubin AST ALT Alkaline Phosphatase Troponin I High Sens B-Natriuretic Peptide Total Protein Albumin Triglycerides Procalcitonin TSH Free T4 Hold Yellow Top Nasal Screen MRSA (PCR) Nasal S. aureus Screen Nasal MRSA/S.aureus Interp Stl C. cayetanensis PCR Stool Rotavirus A PCR Stl Adenov F 40/41 PCR Stool Astrovirus (PCR) Stool Campylobacter PCR Stool Cryptosporidium PCR Stl Sh Tox Pr E STEC PCR Stool E coli O157 PCR Stl Enterotoxigenic E PCR Stool EPEC (PCR) Stool EAEC (PCR) Stl E. histolytica PCR Stool Giardia Lamblia PCR Stl P. shigelloides PCR Stool Salmonella PCR Stool Sapovirus (PCR) Stl Shigella/EIEC PCR St Y.enterocolitica PCR Stool Vibrio (PCR) Stl Vibrio cholerae PCR Stl Norovirus GI/GII PCR Nortriptyline C. difficile Tox B Gene Influenza Type A (PCR) Influenza Type B (PCR) Ur L.pneumophila Ag RSV RNA Qual (PCR) SARS-CoV-2 RNA (RT-PCR) Ur Strep pneumoniae Ag 12/05/24 12/06/24 12/08/24 06:52 07:14 06:30 WBC 7.8 7.4 6.5 RBC 3.31 L 3.33 L 3.34 L Hgb 11.1 L 11.2 L 11.3 L Hct 33.5 L 33.3 L 32.5 L MCV 101.2 H 100.0 H 97.3 MCH 33.5 H 33.6 H 33.8 H MCHC 33.1 33.6 34.8 RDW 14.9 14.8 14.2 Plt Count 206 201 239 MPV 9.3 L 9.3 L 9.2 L Immature Gran % (Auto) 0.6 H Neut % (Auto) 80.0 H Lymph % (Auto) 12.0 L [place] % (Auto) 6.0 Eos % (Auto) 1.2 Baso % (Auto) 0.2 Lymph # (Auto) 0.8 L [place] # (Auto) 0.4 Eos # (Auto) 0.1 Baso # (Auto) 0.0 Abs Immat Gran (auto) 0.04 H Absolute Neuts (auto) 5.2 Absolute Nucleated RBC 0.000 0.000 0.000 Nucleated RBC % (auto) 0.0 0.0 0.0 Smear Tech's Comments Hold Purple Top VBG pH VBG pCO2 VBG pO2 VBG HCO3 VBG O2 Saturation VBG Base Excess Sodium 145 143 140 Potassium 3.3 3.2 L 3.0 L Chloride 116 H 114 H 106 Carbon Dioxide 21 L 22 27 Anion Gap 11 L 10 L 10 L BUN 22 H 18 H 10 Creatinine 0.70 0.68 0.66 Estim Creat Clear Calc 88.1 90.7 93.4 Estimated GFR > 60 > 60 > 60 POC Glucose Random Glucose 122 H 120 H 119 H Estimat Average Glucose Hemoglobin A1c % Calcium 7.6 L D 7.9 L 7.8 L Phosphorus Magnesium Total Bilirubin Direct Bilirubin AST ALT Alkaline Phosphatase Troponin I High Sens B-Natriuretic Peptide Total Protein Albumin Triglycerides Procalcitonin TSH Free T4 Hold Yellow Top Nasal Screen MRSA (PCR) Nasal S. aureus Screen Nasal MRSA/S.aureus Interp Stl C. cayetanensis PCR Stool Rotavirus A PCR Stl Adenov F 40/41 PCR Stool Astrovirus (PCR) Stool Campylobacter PCR Stool Cryptosporidium PCR Stl Sh Tox Pr E STEC PCR Stool E coli O157 PCR Stl Enterotoxigenic E PCR Stool EPEC (PCR) Stool EAEC (PCR) Stl E. histolytica PCR Stool Giardia Lamblia PCR Stl P. shigelloides PCR Stool Salmonella PCR Stool Sapovirus (PCR) Stl Shigella/EIEC PCR St Y.enterocolitica PCR Stool Vibrio (PCR) Stl Vibrio cholerae PCR Stl Norovirus GI/GII PCR Nortriptyline C. difficile Tox B Gene Influenza Type A (PCR) Influenza Type B (PCR) Ur L.pneumophila Ag RSV RNA Qual (PCR) SARS-CoV-2 RNA (RT-PCR) Ur Strep pneumoniae Ag 12/08/24 12/09/24 12/10/24 10:58 06:32 06:54 WBC 7.1 RBC 3.20 L Hgb 10.7 L Hct 31.6 L MCV 98.8 H MCH 33.4 H MCHC 33.9 RDW 14.6 Plt Count 298 MPV 9.3 L Immature Gran % (Auto) 0.4 Neut % (Auto) 85.9 H Lymph % (Auto) 6.2 L [place] % (Auto) 6.8 Eos % (Auto) 0.6 Baso % (Auto) 0.1 Lymph # (Auto) 0.4 L [place] # (Auto) 0.5 Eos # (Auto) 0.0 Baso # (Auto) 0.0 Abs Immat Gran (auto) 0.03 Absolute Neuts (auto) 6.1 Absolute Nucleated RBC 0.000 Nucleated RBC % (auto) 0.0 Smear Tech's Comments Hold Purple Top SEE NOTE VBG pH VBG pCO2 VBG pO2 VBG HCO3 VBG O2 Saturation VBG Base Excess Sodium 139 139 Potassium 3.2 L 3.9 D Chloride 106 108 Carbon Dioxide 28 26 Anion Gap 8 L 9 L BUN 15 26 H Creatinine 0.73 0.78 Estim Creat Clear Calc 84.5 79.1 Estimated GFR > 60 > 60 POC Glucose Random Glucose 149 H 166 H Estimat Average Glucose Hemoglobin A1c % Calcium 8.1 L 8.2 L Phosphorus 2.5 L 2.8 3.4 Magnesium 1.7 1.9 2.0 Total Bilirubin 0.2 Direct Bilirubin < 0.2 AST 43 H ALT 24 Alkaline Phosphatase 111 Troponin I High Sens B-Natriuretic Peptide Total Protein 5.5 L Albumin 2.4 L 2.5 L 2.5 L Triglycerides 104 Procalcitonin TSH Free T4 Hold Yellow Top Nasal Screen MRSA (PCR) Nasal S. aureus Screen Nasal MRSA/S.aureus Interp Stl C. cayetanensis PCR Stool Rotavirus A PCR Stl Adenov F 40/41 PCR Stool Astrovirus (PCR) Stool Campylobacter PCR Stool Cryptosporidium PCR Stl Sh Tox Pr E STEC PCR Stool E coli O157 PCR Stl Enterotoxigenic E PCR Stool EPEC (PCR) Stool EAEC (PCR) Stl E. histolytica PCR Stool Giardia Lamblia PCR Stl P. shigelloides PCR Stool Salmonella PCR Stool Sapovirus (PCR) Stl Shigella/EIEC PCR St Y.enterocolitica PCR Stool Vibrio (PCR) Stl Vibrio cholerae PCR Stl Norovirus GI/GII PCR Nortriptyline C. difficile Tox B Gene Influenza Type A (PCR) Influenza Type B (PCR) Ur L.pneumophila Ag RSV RNA Qual (PCR) SARS-CoV-2 RNA (RT-PCR) Ur Strep pneumoniae Ag 12/11/24 12/12/24 12/12/24 06:00 05:54 13:05 WBC 16.3 H 12.9 H RBC 3.28 L 3.40 L Hgb 11.0 L 11.3 L Hct 32.4 L 33.6 L MCV 98.8 H 98.8 H MCH 33.5 H 33.2 H MCHC 34.0 33.6 RDW 14.5 14.6 Plt Count 343 342 MPV 9.8 9.3 L Immature Gran % (Auto) 0.6 H 0.5 H Neut % (Auto) 95.7 H 93.6 H Lymph % (Auto) 1.7 L 2.6 L [place] % (Auto) 1.8 L 3.2 Eos % (Auto) 0.0 0.0 Baso % (Auto) 0.2 0.1 Lymph # (Auto) 0.3 L 0.3 L [place] # (Auto) 0.3 0.4 Eos # (Auto) 0.0 0.0 Baso # (Auto) 0.0 0.0 Abs Immat Gran (auto) 0.09 H 0.06 H Absolute Neuts (auto) 15.6 H 12.1 H Absolute Nucleated RBC 0.000 0.000 Nucleated RBC % (auto) 0.0 0.0 Smear Tech's Comments VERIFIED VERIFIED Hold Purple Top VBG pH VBG pCO2 VBG pO2 VBG HCO3 VBG O2 Saturation VBG Base Excess Sodium 138 136 134 L Potassium 5.2 H D 5.5 H 5.0 Chloride 109 H 107 104 Carbon Dioxide 22 23 23 Anion Gap 12 12 12 BUN 32 H 24 H 27 H Creatinine 0.67 0.67 0.67 Estim Creat Clear Calc 92.0 92.0 92.0 Estimated GFR > 60 > 60 > 60 POC Glucose Random Glucose 217 H 134 H 204 H Estimat Average Glucose Hemoglobin A1c % Calcium 8.8 D 8.6 8.8 Phosphorus 2.1 L 3.7 Magnesium 2.0 2.1 Total Bilirubin 0.3 0.3 Direct Bilirubin 0.2 0.2 AST 36 56 H ALT 23 36 Alkaline Phosphatase 101 112 Troponin I High Sens B-Natriuretic Peptide Total Protein 6.1 L 6.4 L Albumin 2.6 L 2.8 L Triglycerides Procalcitonin TSH Free T4 Hold Yellow Top Nasal Screen MRSA (PCR) Nasal S. aureus Screen Nasal MRSA/S.aureus Interp Stl C. cayetanensis PCR Stool Rotavirus A PCR Stl Adenov F 40/41 PCR Stool Astrovirus (PCR) Stool Campylobacter PCR Stool Cryptosporidium PCR Stl Sh Tox Pr E STEC PCR Stool E coli O157 PCR Stl Enterotoxigenic E PCR Stool EPEC (PCR) Stool EAEC (PCR) Stl E. histolytica PCR Stool Giardia Lamblia PCR Stl P. shigelloides PCR Stool Salmonella PCR Stool Sapovirus (PCR) Stl Shigella/EIEC PCR St Y.enterocolitica PCR Stool Vibrio (PCR) Stl Vibrio cholerae PCR Stl Norovirus GI/GII PCR Nortriptyline C. difficile Tox B Gene Influenza Type A (PCR) Influenza Type B (PCR) Ur L.pneumophila Ag RSV RNA Qual (PCR) SARS-CoV-2 RNA (RT-PCR) Ur Strep pneumoniae Ag 12/12/24 12/13/24 12/13/24 14:25 06:15 06:15 WBC 14.5 H RBC 3.50 L Hgb 11.8 L Hct 34.1 L MCV 97.4 MCH 33.7 H MCHC 34.6 RDW 14.4 Plt Count 400 MPV 9.3 L Immature Gran % (Auto) 0.8 H Neut % (Auto) 86.1 H Lymph % (Auto) 3.4 L [place] % (Auto) 9.6 Eos % (Auto) 0.0 Baso % (Auto) 0.1 Lymph # (Auto) 0.5 L [place] # (Auto) 1.4 H Eos # (Auto) 0.0 Baso # (Auto) 0.0 Abs Immat Gran (auto) 0.11 H Absolute Neuts (auto) 12.5 H Absolute Nucleated RBC 0.000 Nucleated RBC % (auto) 0.0 Smear Tech's Comments Hold Purple Top VBG pH VBG pCO2 VBG pO2 VBG HCO3 VBG O2 Saturation VBG Base Excess Sodium 133 L Cancelled Potassium 4.3 Chloride Carbon Dioxide Anion Gap BUN Creatinine Estim Creat Clear Calc Estimated GFR POC Glucose 258 H Random Glucose Estimat Average Glucose Hemoglobin A1c % Calcium Phosphorus Magnesium Total Bilirubin Direct Bilirubin AST ALT Alkaline Phosphatase Troponin I High Sens B-Natriuretic Peptide Total Protein Albumin Triglycerides Procalcitonin TSH Free T4 Hold Yellow Top Nasal Screen MRSA (PCR) Nasal S. aureus Screen Nasal MRSA/S.aureus Interp Stl C. cayetanensis PCR Stool Rotavirus A PCR Stl Adenov F 40/41 PCR Stool Astrovirus (PCR) Stool Campylobacter PCR Stool Cryptosporidium PCR Stl Sh Tox Pr E STEC PCR Stool E coli O157 PCR Stl Enterotoxigenic E PCR Stool EPEC (PCR) Stool EAEC (PCR) Stl E. histolytica PCR Stool Giardia Lamblia PCR Stl P. shigelloides PCR Stool Salmonella PCR Stool Sapovirus (PCR) Stl Shigella/EIEC PCR St Y.enterocolitica PCR Stool Vibrio (PCR) Stl Vibrio cholerae PCR Stl Norovirus GI/GII PCR Nortriptyline C. difficile Tox B Gene Influenza Type A (PCR) Influenza Type B (PCR) Ur L.pneumophila Ag RSV RNA Qual (PCR) SARS-CoV-2 RNA (RT-PCR) Ur Strep pneumoniae Ag 12/13/24 12/13/24 12/13/24 06:15 06:15 06:15 WBC RBC Hgb Hct MCV MCH MCHC RDW Plt Count MPV Immature Gran % (Auto) Neut % (Auto) Lymph % (Auto) [place] % (Auto) Eos % (Auto) Baso % (Auto) Lymph # (Auto) [place] # (Auto) Eos # (Auto) Baso # (Auto) Abs Immat Gran (auto) Absolute Neuts (auto) Absolute Nucleated RBC Nucleated RBC % (auto) Smear Tech's Comments Hold Purple Top VBG pH VBG pCO2 VBG pO2 VBG HCO3 VBG O2 Saturation VBG Base Excess Sodium Potassium Cancelled Chloride 104 Cancelled Carbon Dioxide 25 Cancelled Anion Gap 8 L BUN Creatinine Estim Creat Clear Calc Estimated GFR POC Glucose Random Glucose Estimat Average Glucose Hemoglobin A1c % Calcium Phosphorus Magnesium Total Bilirubin Direct Bilirubin AST ALT Alkaline Phosphatase Troponin I High Sens B-Natriuretic Peptide Total Protein Albumin Triglycerides Procalcitonin TSH Free T4 Hold Yellow Top Nasal Screen MRSA (PCR) Nasal S. aureus Screen Nasal MRSA/S.aureus Interp Stl C. cayetanensis PCR Stool Rotavirus A PCR Stl Adenov F 40/41 PCR Stool Astrovirus (PCR) Stool Campylobacter PCR Stool Cryptosporidium PCR Stl Sh Tox Pr E STEC PCR Stool E coli O157 PCR Stl Enterotoxigenic E PCR Stool EPEC (PCR) Stool EAEC (PCR) Stl E. histolytica PCR Stool Giardia Lamblia PCR Stl P. shigelloides PCR Stool Salmonella PCR Stool Sapovirus (PCR) Stl Shigella/EIEC PCR St Y.enterocolitica PCR Stool Vibrio (PCR) Stl Vibrio cholerae PCR Stl Norovirus GI/GII PCR Nortriptyline C. difficile Tox B Gene Influenza Type A (PCR) Influenza Type B (PCR) Ur L.pneumophila Ag RSV RNA Qual (PCR) SARS-CoV-2 RNA (RT-PCR) Ur Strep pneumoniae Ag 12/13/24 12/13/24 12/13/24 06:15 06:15 06:15 WBC RBC Hgb Hct MCV MCH MCHC RDW Plt Count MPV Immature Gran % (Auto) Neut % (Auto) Lymph % (Auto) [place] % (Auto) Eos % (Auto) Baso % (Auto) Lymph # (Auto) [place] # (Auto) Eos # (Auto) Baso # (Auto) Abs Immat Gran (auto) Absolute Neuts (auto) Absolute Nucleated RBC Nucleated RBC % (auto) Smear Tech's Comments Hold Purple Top VBG pH VBG pCO2 VBG pO2 VBG HCO3 VBG O2 Saturation VBG Base Excess Sodium Potassium Chloride Carbon Dioxide Anion Gap Cancelled BUN 24 H Cancelled Creatinine 0.72 Cancelled Estim Creat Clear Calc 85.7 Estimated GFR POC Glucose Random Glucose Estimat Average Glucose Hemoglobin A1c % Calcium Phosphorus Magnesium Total Bilirubin Direct Bilirubin AST ALT Alkaline Phosphatase Troponin I High Sens B-Natriuretic Peptide Total Protein Albumin Triglycerides Procalcitonin TSH Free T4 Hold Yellow Top Nasal Screen MRSA (PCR) Nasal S. aureus Screen Nasal MRSA/S.aureus Interp Stl C. cayetanensis PCR Stool Rotavirus A PCR Stl Adenov F 40/ PCR Stool Astrovirus (PCR) Stool Campylobacter PCR Stool Cryptosporidium PCR Stl Sh Tox Pr E STEC PCR Stool E coli O157 PCR Stl Enterotoxigenic E PCR Stool EPEC (PCR) Stool EAEC (PCR) Stl E. histolytica PCR Stool Giardia Lamblia PCR Stl P. shigelloides PCR Stool Salmonella PCR Stool Sapovirus (PCR) Stl Shigella/EIEC PCR St Y.enterocolitica PCR Stool Vibrio (PCR) Stl Vibrio cholerae PCR Stl Norovirus GI/GII PCR Nortriptyline C. difficile Tox B Gene Influenza Type A (PCR) Influenza Type B (PCR) Ur L.pneumophila Ag RSV RNA Qual (PCR) SARS-CoV-2 RNA (RT-PCR) Ur Strep pneumoniae Ag 12/13/24 12/13/24 12/13/24 06:15 06:15 06:15 WBC RBC Hgb Hct MCV MCH MCHC RDW Plt Count MPV Immature Gran % (Auto) Neut % (Auto) Lymph % (Auto) [place] % (Auto) Eos % (Auto) Baso % (Auto) Lymph # (Auto) [place] # (Auto) Eos # (Auto) Baso # (Auto) Abs Immat Gran (auto) Absolute Neuts (auto) Absolute Nucleated RBC Nucleated RBC % (auto) Smear Tech's Comments Hold Purple Top VBG pH VBG pCO2 VBG pO2 VBG HCO3 VBG O2 Saturation VBG Base Excess Sodium Potassium Chloride Carbon Dioxide Anion Gap BUN Creatinine Estim Creat Clear Calc Cancelled Estimated GFR > 60 Cancelled POC Glucose Random Glucose 185 H Cancelled Estimat Average Glucose Hemoglobin A1c % Calcium 8.6 Phosphorus Magnesium Total Bilirubin Direct Bilirubin AST ALT Alkaline Phosphatase Troponin I High Sens B-Natriuretic Peptide Total Protein Albumin Triglycerides Procalcitonin TSH Free T4 Hold Yellow Top Nasal Screen MRSA (PCR) Nasal S. aureus Screen Nasal MRSA/S.aureus Interp Stl C. cayetanensis PCR Stool Rotavirus A PCR Stl Adenov F 40/41 PCR Stool Astrovirus (PCR) Stool Campylobacter PCR Stool Cryptosporidium PCR Stl Sh Tox Pr E STEC PCR Stool E coli O157 PCR Stl Enterotoxigenic E PCR Stool EPEC (PCR) Stool EAEC (PCR) Stl E. histolytica PCR Stool Giardia Lamblia PCR Stl P. shigelloides PCR Stool Salmonella PCR Stool Sapovirus (PCR) Stl Shigella/EIEC PCR St Y.enterocolitica PCR Stool Vibrio (PCR) Stl Vibrio cholerae PCR Stl Norovirus GI/GII PCR Nortriptyline C. difficile Tox B Gene Influenza Type A (PCR) Influenza Type B (PCR) Ur L.pneumophila Ag RSV RNA Qual (PCR) SARS-CoV-2 RNA (RT-PCR) Ur Strep pneumoniae Ag 12/13/24 12/14/24 12/15/24 06:15 08:39 06:46 WBC 13.2 H RBC 3.09 L Hgb 10.5 L Hct 30.3 L MCV 98.1 H MCH 34.0 H MCHC 34.7 RDW 14.1 Plt Count 333 MPV 9.2 L Immature Gran % (Auto) 1.2 H Neut % (Auto) 80.3 H Lymph % (Auto) 5.9 L [place] % (Auto) 12.5 H Eos % (Auto) 0.0 Baso % (Auto) 0.1 Lymph # (Auto) 0.8 L [place] # (Auto) 1.7 H Eos # (Auto) 0.0 Baso # (Auto) 0.0 Abs Immat Gran (auto) 0.16 H Absolute Neuts (auto) 10.6 H Absolute Nucleated RBC 0.000 Nucleated RBC % (auto) 0.0 Smear Tech's Comments VERIFIED Hold Purple Top VBG pH VBG pCO2 VBG pO2 VBG HCO3 VBG O2 Saturation VBG Base Excess Sodium 137 138 Potassium 4.1 3.8 Chloride 106 108 Carbon Dioxide 24 23 Anion Gap 11 L 11 L BUN 39 H 43 H Creatinine 0.74 0.75 Estim Creat Clear Calc 83.3 82.2 Estimated GFR > 60 > 60 POC Glucose Random Glucose 149 H 182 H Estimat Average Glucose Hemoglobin A1c % Calcium Cancelled 8.5 8.0 L Phosphorus 3.5 3.3 2.8 Magnesium 2.0 2.0 2.0 Total Bilirubin 0.4 0.5 0.3 Direct Bilirubin 0.2 0.3 0.2 AST 68 H 63 H 59 H ALT 62 H 80 H 86 H Alkaline Phosphatase 121 H 123 H 122 H Troponin I High Sens B-Natriuretic Peptide Total Protein 6.7 6.1 L 5.7 L Albumin 2.9 L 2.7 L 2.5 L Triglycerides Procalcitonin TSH Free T4 Hold Yellow Top Nasal Screen MRSA (PCR) Nasal S. aureus Screen Nasal MRSA/S.aureus Interp Stl C. cayetanensis PCR Stool Rotavirus A PCR Stl Adenov F 40/41 PCR Stool Astrovirus (PCR) Stool Campylobacter PCR Stool Cryptosporidium PCR Stl Sh Tox Pr E STEC PCR Stool E coli O157 PCR Stl Enterotoxigenic E PCR Stool EPEC (PCR) Stool EAEC (PCR) Stl E. histolytica PCR Stool Giardia Lamblia PCR Stl P. shigelloides PCR Stool Salmonella PCR Stool Sapovirus (PCR) Stl Shigella/EIEC PCR St Y.enterocolitica PCR Stool Vibrio (PCR) Stl Vibrio cholerae PCR Stl Norovirus GI/GII PCR Nortriptyline C. difficile Tox B Gene Influenza Type A (PCR) Influenza Type B (PCR) Ur L.pneumophila Ag RSV RNA Qual (PCR) SARS-CoV-2 RNA (RT-PCR) Ur Strep pneumoniae Ag 12/16/24 07:31 WBC RBC Hgb Hct MCV MCH MCHC RDW Plt Count MPV Immature Gran % (Auto) Neut % (Auto) Lymph % (Auto) [place] % (Auto) Eos % (Auto) Baso % (Auto) Lymph # (Auto) [place] # (Auto) Eos # (Auto) Baso # (Auto) Abs Immat Gran (auto) Absolute Neuts (auto) Absolute Nucleated RBC Nucleated RBC % (auto) Smear Tech's Comments Hold Purple Top SEE NOTE VBG pH VBG pCO2 VBG pO2 VBG HCO3 VBG O2 Saturation VBG Base Excess Sodium 137 Potassium 3.8 Chloride 108 Carbon Dioxide 24 Anion Gap 9 L BUN 33 H Creatinine 0.68 Estim Creat Clear Calc 90.7 Estimated GFR > 60 POC Glucose Random Glucose 195 H Estimat Average Glucose Hemoglobin A1c % Calcium 8.3 L Phosphorus 2.4 L Magnesium 2.1 Total Bilirubin Direct Bilirubin AST ALT Alkaline Phosphatase Troponin I High Sens B-Natriuretic Peptide Total Protein Albumin 2.5 L Triglycerides Procalcitonin TSH Free T4 Hold Yellow Top Nasal Screen MRSA (PCR) Nasal S. aureus Screen Nasal MRSA/S.aureus Interp Stl C. cayetanensis PCR Stool Rotavirus A PCR Stl Adenov F 40/ PCR Stool Astrovirus (PCR) Stool Campylobacter PCR Stool Cryptosporidium PCR Stl Sh Tox Pr E STEC PCR Stool E coli O157 PCR Stl Enterotoxigenic E PCR Stool EPEC (PCR) Stool EAEC (PCR) Stl E. histolytica PCR Stool Giardia Lamblia PCR Stl P. shigelloides PCR Stool Salmonella PCR Stool Sapovirus (PCR) Stl Shigella/EIEC PCR St Y.enterocolitica PCR Stool Vibrio (PCR) Stl Vibrio cholerae PCR Stl Norovirus GI/GII PCR Nortriptyline C. difficile Tox B Gene Influenza Type A (PCR) Influenza Type B (PCR) Ur L.pneumophila Ag RSV RNA Qual (PCR) SARS-CoV-2 RNA (RT-PCR) Ur Strep pneumoniae Ag Assessment and Plan Final Anesthetic Review Family History of Problems with Anesthesia: No History of Problems with Anesthesia: No Documented by User: Cipriano Melgoza MD 12/16/24 15:23 [facility] Past Medical History Medical History Abnormal biliary HIDA scan COVID-19 vaccine administered History of electroconvulsive therapy Major depressive disorder, recurrent, severe with psychotic features Pulmonary embolism Diverticulitis of colon with perforation Hyperlipidemia HTN (hypertension) Dementia GERD (gastroesophageal reflux disease) Depression SVT (supraventricular tachycardia) Family History Family History Brother Blood clot in vein Other No history of cardiac disorder Surgical History Surgical History History of esophagogastroduodenoscopy (EGD) H/O colonoscopy Status post Paula's procedure History of colostomy reversal H/O hernia repair Social History Social History Household Members: None Housing: Assisted Living Facility Are you a primary tire care manager to a significant other at home: No Do you presently have visiting nurse or other home services: No Alcohol intake: former Comment: headache better Patient Tobacco Use Status: Never used Tobacco Second Hand Smoke Exposure: No Use of substances other than those prescribed or required for medical reasons: No Currently Displaying Signs/Symptoms of Drug Intoxication Withdrawal: No Have you been hit, kicked, punched, or otherwise hurt by someone within the past year? If so, by whom?: No Do you feel safe in your current relationship?: No Current Relationship Is there a partner from a previous relationship who is making you feel unsafe now?: No Are you made to feel afraid or neglected: No Are you DNR?: Yes Advance Directives: Yes Advance Directives on File: Yes Advance Directives Date on File: 06/22/23 Recently lost weight without trying: No Nutrition Risks: Receiving home tube feeding or CPN Poor oral hygiene: No service: No Current occupational status: retired Sexual orientation: Straight/Heterosexual Meds Allergies Allergy/AdvReac Type Severity Reaction Status Date / Time No Known Allergies Allergy Verified 12/16/24 14:20 [No Known Allergies*] Home Medications ?Medication ?Instructions ?Recorded ?Confirmed ?Last Taken ?Type omeprazole 40 mg capsule,delayed 40 mg PO DAILY@0630 11/14/24 11/28/24 11/27/24 History release polyethylene glycol 3350 17 17 g PO DAILY 11/14/24 11/28/24 11/27/24 History gram/dose oral powder (Miralax) sennosides 8.6 mg tablet (Senna 8.6 mg PO BEDTIME PRN Constipation 11/14/24 11/28/24 Unknown History Lax) nortriptyline 25 mg capsule 100 mg PO BEDTIME 11/28/24 11/28/24 11/27/24 History olanzapine 5 mg tablet 5 mg PO BID PRN Anxiety 11/28/24 11/28/24 11/27/24 History trazodone 50 mg tablet 50 mg PO BEDTIME PRN Sleep 11/28/24 11/28/24 11/25/24 History Exam Airway Mallampati Class: II TM Dist: >3cm Neck ROM: Full Partial: Upper and Lower Heart: ok Lungs: Sat 90% ra. Chronic aspiration pneumonia. CXR and CT chest reviewed. Assessment and Plan Assessment Anesthesia Assessment: Anesthesia Plan Discussed (poss if not likelihood of post op resp failure req mechanical ventil and intensive care.) and Chart Reviewed Final Anesthetic Review NPO: Yes ASA Class: IV Final Preanesthetic Review: No Changes in Pt Med Stat, Meds/Allgs Chart Reviewed, Consent Obtained/Reviewed, Anes Risks/Benef Reviewed and DNR Form (If Appl.) Patient Risk: High Procedure Risk: Intermediate Anesthetic Plan Anesthetic Plan: GA and Agree w/ Assess. and Plan Disposition: Standard PACU
--- NOTE | 2024-12-16 14:50 | PC.NURSE ---
Patient arrived to [facility] from floor. Right upper arm IV w/PPN. IV noted to/assessed: red, warm to touch and swollen. IV d/'c per anesthesia. #20 angio inserted via right hand. #20 angio inserted via right forearm. Pt trial off of O2 on RA - O2 sat 88-90%. Per Dr. Melgoza anesthesia, Pt to have 2L via NC at bedside prior to procedure. O2 sat 92-93%. Pt asymptomatic, tolerated procedures well. Pt alert only to name and . Pt cooperative.
--- NOTE | 2024-12-16 14:53 | MHC.CM.PN ---
EMR reviewed and per MD rounds, pt is not medically cleared for discharge at this time.
--- NOTE | 2024-12-16 15:00 | HO.PM.IMPN ---
Subjective Subjective Date of Service: 12/16/24 Interval History: Resting comfortably, no acute events overnight, denies pain, NPO on IV PPN Review of Systems Unable to obtain review of system due to mental status Physical Exam Vital Signs: Vital Signs: Last Vital Signs Temp 98.5 F 12/16/24 14:23 Pulse 89 12/16/24 14:23 Resp 18 12/16/24 14:23 BP 135/85 12/16/24 14:23 Pulse Ox 91 L 12/16/24 14:23 O2 Del Method Nasal Cannula 12/16/24 14:23 O2 Flow Rate 3 12/16/24 14:23 BMI result Body Mass Index 27.5 Const: Other: Constitutional : interactive, not in distress NEck no jvd Cardiovascular : regular Respiratory : bilateral chest movement, basal crackles , on O2 supplement Gastrointestinal: soft, Non tender, BS pos Skin : Warm, Dry no edema Neurological : Alert & oriented to self and place, No focal deficit Objective Data Active Medications Acetaminophen (Acetaminophen 325 Mg Tablet) 650 mg PO Q6H PRN PRN Reason: Pain, Mild 1-3,fever,headache Acetylcysteine (Acetylcysteine 10 % 400 Mg/4 Ml Vial) 400 mg INHALE RBID [facility] [place] Last Admin: 12/16/24 07:40 Dose: 400 mg Documented By: CAMERON Albuterol/Ipratropium (Albuterol/Iprat 2.5/0.5mg 3 Ml Ampul.Neb) 3 ml INHALE RQ6H WHILE AWAKE [facility] [place] Last Admin: 12/16/24 07:39 Dose: 3 ml Documented By: CAMERON Calcium Carbonate (Calcium Carbonate 750 Mg Tab.Chew) 750 mg PO Q4H PRN PRN Reason: Heartburn Docusate Sodium (Docusate Sodium 100 Mg Capsule) 100 mg PO BID [facility] [place] Last Admin: 12/16/24 10:12 Dose: 100 mg Documented By: NAHEED Enoxaparin Sodium (Enoxaparin Sodium 100 Mg/Ml Syringe) 90 mg SUBCUT Q12H [facility] [place] Last Admin: 12/15/24 00:41 Dose: Not Given Documented By: ANATOLY Non-Admin Reason: med held Ferrous Sulfate (Ferrous Sulfate 324 Mg Tablet.) 324 mg PO DAILY [facility] [place] Last Admin: 12/16/24 10:12 Dose: 324 mg Documented By: NAHEED Finasteride (Finasteride 5 Mg Tablet) 5 mg PO DAILY [facility] [place] Last Admin: 12/16/24 10:12 Dose: 5 mg Documented By: NAHEED Guaifenesin/Dextromethorphan (Guaifenesin Dm 200/20/10 Ml 10 Ml Syrup) 10 ml PO TID [facility] [place] Piperacillin Sod/Tazobactam (Sod 4.5 gm/ Sodium Chloride) 100 mls @ 200 mls/hr IV Q6H [facility] Last Admin: 12/16/24 13:45 Dose: 200 mls/hr Documented By: NAHEED Nutrition (Parenteral) (Parenteral Nutrition) 2,400 mls @ 100 mls/hr IV .Q24H [facility]; Protocol Stop: 12/16/24 20:59 Last Admin: 12/15/24 21:51 Dose: 100 mls/hr Documented By: ANATOLY Nutrition (Parenteral) (Parenteral Nutrition) 2,400 mls @ 100 mls/hr IV .Q24H [facility]; Protocol Stop: 12/17/24 20:59 Lorazepam (Lorazepam 2 Mg/Ml Vial) 0.5 mg IVPUSH Q6H PRN PRN Reason: Anxiety Last Admin: 12/14/24 19:55 Dose: 0.5 mg Documented By: ANATOLY Magnesium Hydroxide (Milk Of Magnesia 30 Ml Oral.Susp) 30 ml PO DAILY PRN PRN Reason: Constipation Melatonin (Melatonin 3 Mg Tablet) 6 mg PO BEDTIME [facility] Last Admin: 12/15/24 22:00 Dose: Not Given Documented By: ANATOLY Non-Admin Reason: Patient Refused Methylprednisolone Sodium Succinate (Methylprednisolone Sod Succ 40 Mg/Ml Vial) 40 mg IVPUSH Q24H [facility] Last Admin: 12/16/24 10:11 Dose: 40 mg Documented By: NAHEED Metoprolol Tartrate (Metoprolol Tartrate 5 Mg/5 Ml Vial) 5 mg IVPUSH Q6H [facility]; Protocol Last Admin: 12/16/24 13:39 Dose: 5 mg Documented By: NAHEED Nortriptyline HCl (Nortriptyline Hcl 25 Mg Capsule) 75 mg PO BEDTIME [facility] Last Admin: 12/15/24 22:00 Dose: Not Given Documented By: ANATOLY Non-Admin Reason: Patient Refused Olanzapine (Olanzapine 7.5 Mg Tablet) 7.5 mg PO BEDTIME [facility] Last Admin: 12/15/24 22:00 Dose: Not Given Documented By: ANATOLY Non-Admin Reason: Patient Refused Olanzapine (Olanzapine 5 Mg Tablet) 5 mg PO BID PRN PRN Reason: Anxiety Last Admin: 12/09/24 01:21 Dose: 5 mg Documented By: COLLEEN Olanzapine (Olanzapine 2.5 Mg Tablet) 2.5 mg PO DAILY [facility] [place] Last Admin: 12/16/24 10:12 Dose: 2.5 mg Documented By: NAHEED Ondansetron HCl (Ondansetron Odt 4 Mg Tab.Rapdis) 4 mg TRANSLINGU Q12H PRN PRN Reason: Nausea And Vomiting Last Admin: 11/29/24 21:43 Dose: 4 mg Documented By: LEWIS Oxybutynin Chloride (Oxybutynin Chloride 5 Mg Tablet) 5 mg PO DAILY [facility] [place] Last Admin: 12/16/24 10:12 Dose: 5 mg Documented By: NAHEED Pharmacy Consult (Consult Rx Parenteral Nutrition Ordering) 1 each MISCELLANE DAILY PRN PRN Reason: Consult order Polyethylene Glycol (Polyethylene Glycol 3350 17 Gm Powd.Pack) 17 gm PO DAILY [facility] [place] Last Admin: 12/16/24 10:55 Dose: Not Given Documented By: NAHEED Non-Admin Reason: NPO Senna (Sennosides 8.6 Mg Tablet) 8.6 mg PO BEDTIME PRN PRN Reason: Constipation Sodium Chloride (0.9 % Sodium Chloride Flush 3 Ml Syringe) 3 ml IVFLUSH QSHIFT [facility] Last Admin: 12/16/24 10:12 Dose: 3 ml Documented By: NAHEED Trazodone HCl (Trazodone Hcl 50 Mg Tablet) 50 mg PO BEDTIME MRX1 PRN PRN Reason: Sleep Last Admin: 12/05/24 20:17 Dose: 50 mg Documented By: AJITH Vitamin D (Cholecalciferol (Vitamin D3) 10 Mcg Tablet) 10 mcg PO DAILY [facility] [place] Last Admin: 12/16/24 10:12 Dose: 10 mcg Documented By: NAHEED Labs 12/17/24 05:32 12/17/24 05:32 Labs: Laboratory Results - last 24 hr 12/16/24 07:31 Hold Purple Top SEE NOTE Anion Gap 9 L Estim Creat Clear Calc 90.7 Estimated GFR > 60 Random Glucose 195 H Calcium 8.3 L Phosphorus 2.4 L Magnesium 2.1 Albumin 2.5 L Assessment and Plan (1) Dysphagia: Status: Acute (2) Abdominal fluid collection: Status: Acute Plan 79M PMH prostate CA, hx PE [2020] on apixaban, vertigo, GERD, HLD, MDD + psychosis admitted to geriatric psychiatry 11/14 for anxiety + panic attacks, undergoing ECT. Had endoscopy with removal of esophageal foreign body, balloon dilation of esophageal stricture, and biopsy on 11/26/24. [facility] called 11/28 for tachycardia in 150s; found to have atrial flutter with RVR; given IV metoprolol, digoxin + diltiazem and transferred to telemetry Swallowing difficulties 11/06 dysphagia, esophogeal stricture, type IV paraesophageal hernia s/p ballooning, PPI CT abd oval fluid collection anterior to the gallbladder with dilated GB on 12/08, had +ve HIDA scan 11/29 MEDICAL PRACTICE MANAGER following, MBSS done, rec NDD1 and nectar thick liquids patient unable to tolerate Continue PPN surgery following for J-tube placement ,ivanna scheduled for today. acute cholecystitis, transaminitis seen on CT of chest; US nondiagnostic; positive HIDA; completed abx course surgery appreciated, Drain GB Drain was placed on 12/09, found pulled out and next to the patient on 12/10 after draining total of 400cc or so LFT elevated but stable continue to monitor surgery following, consider repeat CT if worsens pain or increasing LFT paroxysmal AF/RVR Rate better controlled status post IV Cardizem drip Lopressor 5mg q6 iv, unable to tolerate PO Metoprolol 25 mg Q6 Lovenox 90mg Q12, on hold for surgery Hold Eliquis acute hypoxic respiratory failure due to aspiration PNA & Pneumonitis completed course- 11/28 - 12/06/24- ceftriaxone + doxycycline + flagyl wean O2 as tolerated - down to 5L on IV Steroids , IV Zosyn, wean oxygen as tolerated chest x-ray 12/15 showed low lung volumes, bibasilar airspace opacities compatible with pneumonia left greater than right prerenal ANDREA acute metabolic acidosis resolved after IV fluid hydration mild transaminitis stable, monitor subclinical hyperthyroidism repeat TFTs in 4-6 wk GERD, PPI MDD, continue olanzapine, nortriptylline, trazodone prostatism, finasteride VTE ppx apixaban on hold for surgery, Lovenox on hold for surgery cont mechanical device dispo eventual return to salty-psych Quality Stroke Does the patient have a stroke diagnosis?: No VTE Prior VTE?: Yes VTE Risk Level:: Medical - moderate - high VTE Device Contraindication: Treatment Not Indicated VTE Drug Contraindication: N/A - Med Ordered
--- NOTE | 2024-12-16 16:31 | P.EN_ITS ---
Event Note Date of Service: 12/16/24 Event Note: Patient is a 79 Y M w/ hypertension, hyperilipidemia, prior PE on apixaban, prostate cancer, anxiety/depression c/b psychosis, hiatal hernia, and persistent dysphagia, initially presenting on 11/14 w/ anxiety, admitted psychiatry; on 11/28, patient developed atrial fibrillation, transferred to medicine; hospital course c/b distended gallbladder, s/p cholestostomy tube placement 12/09 w/ inadvertent dislodgement 12/10, and persistent dysphagia; on 12/15, patient taken to OR for J tube, remained intubated post-operatively N: intubated, sedated w/ propofol gtt, wean as tolerated CV:?no acute issues; hyperlipidemia R:?remained intubated operatively, to wean; prior PE previously on apixaban, though held georgette-operatively GI: dysphagia, hiatal hernia, s/p J tube 12/16; tube feeds when possible per general surgery : no acute issues H: no acute issues; prior PE previously on apixaban, though held georgette- operatively; DVT prophylaxis w/ mechanical devices ID: thought to have had pneumonia, on zosyn E: hyperglycemia, insulin sliding scale P: anxiety/depression c/b psychosis, on olanzapine Time Spent With Patient Time: Total time managing care of this patient today ____ minutes.
--- NOTE | 2024-12-16 17:06 | W.PM.OPN ---
Operative Note Operative Note Date of Service: 12/16/24 Narrative: Preop diagnosis: Dysphagia, with large hiatal hernia, recurrent aspiration Postop diagnosis: The same Procedure: Open Jejunostomy tube placement, Witzel technique Surgeon: Tawanda Garcia MD Nutrition Program Instructor: PATSY Smith Student The patient is an 79-year-old male with multiple medical problems including being O2 dependent, atrial flutter, depressive disorder with psychotic features, GERD, hiatal hernia, with recurrent aspiration and dysphagia, referred to me for jejunostomy tube placement. He could not have a PEG tube or G-tube because of his large hiatal hernia with aspiration Multiple discussions with the daughter Brenda was done involved with the patient's significant comorbid conditions. She had given consent as the healthcare proxy. He understood that the patient presented with this significant risk factors especially in view of his respiratory function. The patient was brought to the operating room and placed supine under general anesthesia via endotracheal tube. The abdomen was prepped and draped in usual sterile fashion. A surgical time-out was done. The patient was on scheduled IV antibiotics I made an upper midline incision using blade 15 and this carried down with electrocautery through the full-thickness of the skin and subcutaneous fat down to the fascia. The fascia was incised and the peritoneum was entered. The fascial edges were clear I then was able to visualize small bowel loops. I pulled up the small bowel loops and gently followed this sure that we had the correct limb. I was able to follow the jejunal loops all the way to the ligament of Treitz. I have chose a segment about 15-20 cm from the ligament of Treitz as the insertion site. I made pursestring sutures using Polysorb 2-0. I then made a small enterotomy middle of this pursestring to enter the lumen of the jejunostomy loop. I passed the red rubber Amharic 16 catheter into the lumen. I tightened the pursestring. I made sure that I advanced the red rubber catheter by about at least 15 cm distally. I pulled the red rubber catheter through the abdominal wall via a small stab incision in the left upper quadrant I then created my Witzel tunnel by inverting the seromuscular layer over the feeding tube proximally for about 5 cm. These seromuscular sutures were placed with Polysorb 2-0 sutures. I then pulled up this entire Witzel tunnel snug on the peritoneal side of the abdominal wall. I secured this loop with multiple Polysorb 2-0 sutures tethering this to the peritoneal side through the seromuscular layer. I then secured the feeding tube to the skin with a nylon 2-0 anchoring stitch I tested the feeding tube by flushing this and there was no resistance nor have cessation seen distally. I examined the with tunneled segment and this appeared snug on the peritoneal side as well secured by the Polysorb 2-0 sutures earlier At least 10-15 cm of the feeding tube was going distal to the which is a lyse segment There was note of good hemostasis. There was no evidence of any bowel injury I then closed the has a under direct visualization with Maxon 1 sutures. Skin closure was achieved with skin dave. I infiltrated the incision with Marcaine 0.5% for postop analgesia. Dressings were applied. The procedure was completed. The patient tolerated procedure well. There were no immediate complications. There was minimal blood loss The patient however remained intubated and was transferred to the ICU postoperatively. He will be followed by the covering surgeon, Dr. Key this weekend.
--- NOTE | 2024-12-16 17:38 | P.EN_ITS ---
Event Note Date of Service: 12/19/24 Event Note: Patient brought to the ICU postop Remains on the ventilator Otherwise stable vital sign Abdomen is soft Pain management Okay to start low dose feeds after 24 hours Keep jejunostomy tube secured with dressings as patient may pull this out I have discussed this patient with the laborer aquatic life preoperatively Also discussed the patient with the current staff I have updated the daughter Brenda Amato Time Spent With Patient Time: Total time managing care of this patient today ____ minutes.
[2024-12-16] MEDS: propofoL 1,000 MG/100 ML VIAL 16.11 MG IVCONT (17:42)
[2024-12-16 18:45] LABS: Basophils Percent Auto 0.1 % (0-2); Hematocrit 29.3 % (42.0-52.0); Hemoglobin 10.3 g/dl (14.0-18.0); Imm Gran Abs Auto 0.32 X10*3/uL (0.00-0.03); Imm Gran Pct Auto 2.3 % (0.0-0.4); Lymphocytes Absolute Auto 0.2 X10*3/uL (1.2-4.9); Lymphocytes Percent Auto 1.3 % (20-40); MANUAL DIFF FLAG SCAN; Mean Corpuscular HGB Conc 35.2 g/dl (31.0-36.0); Mean Corpuscular Volume 96.7 fL (80.0-98.0); Mean Platelet Volume 9.2 fL (9.4-12.4); Monocytes Absolute Auto 0.7 X10*3/uL (0.1-1.2); Monocytes Percent Auto 5.1 % (2-11); Neutrophils Percent Auto 91.2 % (45-73); Platelet Count 342 X10*3/uL (160-400); Red Blood Count 3.03 X10*6/uL (4.60-5.80); Red Cell Distribution Width 14.1 % (11.0-16.0); SCAN SMEAR FLAG 1; White Blood Count 14.2 X10*3/uL (4.8-10.8)
[2024-12-16 19:00] LABS: Anion Gap 11 (12-20); Blood Urea Nitrogen 35 mg/dL (9-16); Carbon Dioxide 22 mmol/L (22-29); Chloride 107 mmol/L (96-108); Estimated Glomerular Filt Rate > 60; Glucose Random 293 mg/dL (60-115); Magnesium 1.8 mg/dL (1.6-2.6); Phosphorus 3.6 mg/dL (2.7-4.5); Potassium 4.7 mmol/L (3.3-5.1); Sodium 135 mmol/L (135-145)
[2024-12-16 19:02] LABS: SLIDE REVIEW VERIFIED
[2024-12-16] MEDS: Furosemide 20 MG/2 ML VIAL 10 MG IVPUSH (19:16)
--- NOTE | 2024-12-16 19:35 | HE.ICUCC ---
ICU Critical Care Nursing Note ICU Day #:1 Vent Day #:1 Neuro:Sedated and intubated on Propofol as per MAR, unable to assess orientation Cardiac:SR on Tele, generalized non pitting edema noted to right arm. Resp:intubated and placed on pressure support on arrival, switched to acvc quickly due to apnea episodes per respiratory, Propofol increased due to asynchrony. GI/: J tube in place clamped and dressing CDI, Male purewick replaced Endocrine:Blood drawn per phlebotomy Integumentary/Musculoskeletal: redness to buttocks noted, pink foam applied. weakness due to sedation. patient arrived to unit intubated from OR, placed on vent and propofol initiated on arrival, see MAR and shift assessment for full details, CHG wipes used to clean patient.
[2024-12-16] MEDS: propofoL 1,000 MG/100 ML VIAL 26.85 MG IVCONT (21:21)
[2024-12-16] MEDS: Parenteral Nutrition 2,400 ML 100 ML IV (22:19)
[2024-12-16] MEDS: Chlorhexidine Gluc Oral Rinse 15 ML MOUTHWASH BUCCAL (22:37)
[2024-12-17] VITALS (25 sets, daily range): BP systolic 102–131; BP diastolic 22–82; PULSE 11–124; RESP 20–34; TEMP 34.8–37.1; O2SAT 86–98; BMI 26.0
[2024-12-17] MEDS: 0.9 % Sodium Chloride Flush 3 ML SYRINGE IVFLUSH ×4 (00:12→21:42)
[2024-12-17] MEDS: Insulin Lispro 100 UNIT/ML 3 ML VIAL SUBCUT ×3 (00:12→12:23)
[2024-12-17 00:15] LABS: Glucose, Whole Blood 280 mg/dL (60-115)
[2024-12-17] MEDS: propofoL 1,000 MG/100 ML VIAL 26.85 MG IVCONT ×3 (00:50→07:36)
[2024-12-17] MEDS: Piperacillin Sodium/Tazobactam 4.5 GM in 0.9 % Sodium Chloride 100 ML IV ×2 (01:36→07:37)
[2024-12-17 05:39] LABS: VBG Base Excess 3.6 mmol/L; VBG HCO3 26 mmol/L (22-26); VBG pCO2 32 mmHg; VBG pH 7.51 (7.32-7.43); VBG pO2 39 mmHg
[2024-12-17 05:42] LABS: Venous Blood Gas Refer to POC result
[2024-12-17 05:43] LABS: Basophils Absolute Auto 0.1 X10*3/uL (0.0-0.2); Basophils Percent Auto 0.3 % (0-2); Hematocrit 35.1 % (42.0-52.0); Hemoglobin 12.2 g/dl (14.0-18.0); Imm Gran Abs Auto 0.68 X10*3/uL (0.00-0.03); Imm Gran Pct Auto 2.9 % (0.0-0.4); Lymphocytes Absolute Auto 1.2 X10*3/uL (1.2-4.9); MANUAL DIFF FLAG SCAN; Mean Corpuscular HGB Conc 34.8 g/dl (31.0-36.0); Mean Corpuscular Hemoglobin 33.9 pg (27.0-33.0); Mean Corpuscular Volume 97.5 fL (80.0-98.0); Monocytes Absolute Auto 4.4 X10*3/uL (0.1-1.2); Monocytes Percent Auto 18.8 % (2-11); NRBC Pct Auto 0.2 /100WBC (0.0-0.2); Neutrophils Absolute Auto 16.9 x10*3/uL (2.0-8.3); Platelet Count 314 X10*3/uL (160-400); Red Cell Distribution Width 14.2 % (11.0-16.0); SCAN SMEAR FLAG 1; White Blood Count 23.2 X10*3/uL (4.8-10.8)
[2024-12-17 06:05] LABS: Albumin Level 2.8 g/dL (3.5-5.0); Anion Gap 14 (12-20); Blood Urea Nitrogen 29 mg/dL (9-16); Calcium 8.6 mg/dL (8.4-10.2); Carbon Dioxide 23 mmol/L (22-29); Chloride 105 mmol/L (96-108); Creatinine Clr Calc Pharmacy 83.3; Estimated Glomerular Filt Rate > 60; Glucose Random 250 mg/dL (60-115); Magnesium 2.2 mg/dL (1.6-2.6); Phosphorus 3.1 mg/dL (2.7-4.5); Potassium 4.8 mmol/L (3.3-5.1); Sodium 137 mmol/L (135-145)
[2024-12-17 06:07] LABS: SLIDE REVIEW VERIFIED
--- NOTE | 2024-12-17 07:01 | PC.NURSE ---
Patient arrived to unit from OR shortly before shift change, assumed care at 1900. Upon initial assessment, patient remains intubated and sedated, propofol gtt running per DEC. Opens eyes to repeated physical stimuli, does not follow commands or track. SR/ST on tele, HR 90s-100s. Patient vented with size 8.0 ETT, 23cm?@ lip, see vent assessment. Abdomen large and soft, bowel sounds auscultated x4. PPN running per DEC. Condom catheter applied, draining clear dark yellow urine. Skin warm and dry, blanchable redness to buttocks/coccyx, pink foam clean dry and intact. Heels red and blanchable, pink foams applied and heels elevated on pillows. Abdominal incision dressing for placement of J tube clean dry and intact, no spotting noted. Redness to right upper arm from IV infiltration, circled in skin marker. IV to right forearm noted to be edematous and pale, also infiltrated. IV removed, see IV assessment. Patient's HCP, Brenda, updated by this RN via phone. Patient repositioned Q2HR, bed locked in lowest position, and bed alarm on.?
[2024-12-17] MEDS: Albumin Human 25 % 50 ML 100 ML IV ×2 (07:42→08:34)
[2024-12-17] MEDS: Acetylcysteine 10 % 400 MG/4 ML VIAL INHALE (08:29)
[2024-12-17] MEDS: Albuterol/Iprat 2.5/0.5MG 3 ML AMPUL.NEB INHALE (08:29)
--- NOTE | 2024-12-17 08:35 | P.PNCC_ITS ---
Subjective Subjective Date of Service: 12/17/24 Interval History: no significant overnight events Critical Care Time (minutes): 60 Physical Exam 2 Vital Signs: Vital Signs: Last Vital Signs Temp 97.8 F 12/17/24 04:00 Pulse 96 12/17/24 08:00 Resp 23 H 12/17/24 08:00 BP 111/68 12/17/24 08:00 Pulse Ox 95 12/17/24 08:00 O2 Del Method Mechanical Ventil ation 12/17/24 08:00 O2 Flow Rate 3 12/16/24 14:23 FiO2 50 12/17/24 08:00 BMI result Body Mass Index 26.0 Const: Other: intubated, minimally sedated; appreciable spontaneous movements General: comfortable, no acute distress, well developed, awake and Physically active HEENT: Head: Yes normal to inspection, Yes normocephalic and Yes atraumatic Eyes: General: appearance normal, both eyes and all related structures Neck: Neck: Yes normal visual inspection, Yes full ROM, Yes no meningeal signs, Yes trachea midline and Yes supple Chest: Chest palpation & inspection: normal inspection of the chest Resp: Other: no appreciable rales, rhonchi, wheezing Effort & Inspection: normal respiratory effort Cardio: Rate: tachycardic Rhythm: regular rhythm GI: Inspection: Yes normal to inspection, No Abdominal wall edema and No distended Palpation (GI): Soft to palpation, not firm, nontender, no guarding and not rigid Skin: General skin exam: no rashes or lesions noted Neuro: General: tone normal, moves all extremities and no meningeal signs Extrem: Other: appreciable 1+ pitting edema to bilateral shins General: Yes normal to inspection, Yes full ROM and Yes capillary refill normal Psych: Other: unable to assess Objective Data Labs 12/17/24 05:32 12/17/24 05:32 Labs: Laboratory Results - last 24 hr 12/16/24 12/16/24 12/17/24 07:31 18:37 00:08 WBC 14.2 H RBC 3.03 L Hgb 10.3 L Hct 29.3 L MCV 96.7 MCH 34.0 H MCHC 35.2 RDW 14.1 Plt Count 342 MPV 9.2 L Immature Gran % (Auto) 2.3 H Neut % (Auto) 91.2 H Lymph % (Auto) 1.3 L [place] % (Auto) 5.1 Eos % (Auto) 0.0 Baso % (Auto) 0.1 Lymph # (Auto) 0.2 L [place] # (Auto) 0.7 Eos # (Auto) 0.0 Baso # (Auto) 0.0 Abs Immat Gran (auto) 0.32 H Absolute Neuts (auto) 13.0 H Absolute Nucleated RBC 0.000 Nucleated RBC % (auto) 0.0 Smear Tech's Comments VERIFIED VBG pH VBG pCO2 VBG pO2 VBG HCO3 VBG O2 Saturation VBG Base Excess Sodium 137 135 Potassium 3.8 4.7 D Chloride 108 107 Carbon Dioxide 24 22 Anion Gap 9 L 11 L BUN 33 H 35 H Creatinine 0.68 0.67 Estim Creat Clear Calc 90.7 92.0 Estimated GFR > 60 > 60 POC Glucose 280 H Random Glucose 195 H 293 H Calcium 8.3 L 8.0 L Phosphorus 2.4 L 3.6 Magnesium 2.1 1.8 Albumin 2.5 L 12/17/24 12/17/24 05:32 05:35 WBC 23.2 H RBC 3.60 L Hgb 12.2 L Hct 35.1 L MCV 97.5 MCH 33.9 H MCHC 34.8 RDW 14.2 Plt Count 314 MPV 9.0 L Immature Gran % (Auto) 2.9 H Neut % (Auto) 73.0 Lymph % (Auto) 5.0 L [place] % (Auto) 18.8 H Eos % (Auto) 0.0 Baso % (Auto) 0.3 Lymph # (Auto) 1.2 [place] # (Auto) 4.4 H Eos # (Auto) 0.0 Baso # (Auto) 0.1 Abs Immat Gran (auto) 0.68 H Absolute Neuts (auto) 16.9 H Absolute Nucleated RBC 0.050 H Nucleated RBC % (auto) 0.2 Smear Tech's Comments VERIFIED VBG pH 7.51 H VBG pCO2 32 VBG pO2 39 VBG HCO3 26 VBG O2 Saturation 68.0 VBG Base Excess 3.6 Sodium 137 Potassium 4.8 Chloride 105 Carbon Dioxide 23 Anion Gap 14 BUN 29 H Creatinine 0.74 Estim Creat Clear Calc 83.3 Estimated GFR > 60 POC Glucose Random Glucose 250 H Calcium 8.6 D Phosphorus 3.1 Magnesium 2.2 Albumin 2.8 L Microbiology Microbiology Results: Microbiology 12/16/24 18:15 Lung - Endotracheal Tube Aspirate Gram Stain - Final 12/09/24 14:50 Abscess Intra-abdominal Gram Stain - Final 12/09/24 14:50 Abscess Intra-abdominal Routine Culture - Final No growth. 12/09/24 14:50 Abscess Intra-abdominal Anaerobic Culture - Final Gram variable tamera 11/28/24 15:41 Blood - Venous Blood Culture - Final No growth after 5 days. 11/28/24 15:41 Blood - Venous Blood Culture - Final No growth after 5 days. Progress Note: A&P Assessment and plan (1) Dysphagia: Status: Acute (2) Jejunostomy tube present: Status: Acute Plan Patient is a 79 Y M w/ hypertension, hyperilipidemia, prior PE on apixaban, prostate cancer, anxiety/depression c/b psychosis, hiatal hernia, and persistent dysphagia, initially presenting on 11/14 w/ anxiety, admitted psychiatry; on 11/28, patient developed atrial fibrillation, transferred to medicine; hospital course c/b distended gallbladder, s/p cholestostomy tube placement 12/09 w/ inadvertent dislodgement 12/10, and persistent dysphagia; on 12/15, patient taken to OR for J tube, remained intubated post-operatively N: intubated, sedated w/ propofol gtt, wean as tolerated CV:?no acute issues; hyperlipidemia R:?remained intubated operatively, to wean; prior PE previously on apixaban, though held georgette-operatively GI: dysphagia, hiatal hernia, s/p J tube 12/16; tube feeds when possible per general surgery : no acute issues H: no acute issues; prior PE previously on apixaban, though held georgette- operatively; DVT prophylaxis w/ mechanical devices ID: thought to have had pneumonia, on empiric zosyn E: hyperglycemia, insulin sliding scale P: anxiety/depression c/b psychosis, on olanzapine Quality Stroke Does the patient have a stroke diagnosis?: No VTE Prior VTE?: Yes VTE Risk Level:: Medical - moderate - high VTE Device Contraindication: N/A - Device Ordered VTE Drug Contraindication: Treatment Not Tolerated
[2024-12-17] MEDS: Chlorhexidine Gluc Oral Rinse 15 ML MOUTHWASH BUCCAL (08:54)
--- NOTE | 2024-12-17 09:53 | P.ACPN_ITS ---
Advanced Care Planning Note Advanced Care Planning Note Discussed with: family member(s) Time spent (in minutes): 60 Narrative: I called and introduced myself to Mr. Mancusos daughter; I offered updates and clarifications; I stated that it appears Mr. Galarza is appropriate for extubation as he is on minimal ventilator settings, awake, alert, and re- directable; I asked Mr. Mancusos daughter, in the event his breathing were to worsen, should we replace the breathing tube; she stated she is conflicted, as there have been multiple discussions with family regarding Mr. Mancusos values and wishes, and the decision has been to minimize Mr. Mancusos suffering and to maintain his DNR/DNI status; however, now, it is more difficult to reverse his code status; I stated we will honor whatever code status Mr. Galarza's family feels is appropriate, after which Mr. Galarza's daughter stated she believes his DNR status should remain, though in the event his breathing worsens, a trial re- intubation is appropriate; given such, Mr. Watson code status was changed to DNR, trial re-intubation Problems Discussed (1) Dysphagia: (2) Jejunostomy tube present:
[2024-12-17] MEDS: Furosemide 20 MG/2 ML VIAL 10 MG IVPUSH (10:45)
[2024-12-17] MEDS: methylPREDNISolone Sod Succ 40 MG/ML VIAL IVPUSH (10:45)
[2024-12-17] MEDS: ondansetron HCL 4 MG/2 ML VIAL IVPUSH (10:45)
[2024-12-17 11:54] LABS: Glucose, Whole Blood 225 mg/dL (60-115)
--- NOTE | 2024-12-17 11:57 | HO.POSTANES ---
Post Anesthesia Evaluation Post Anesthesia Evaluation Date of Service: 12/17/24 Vital Signs: Vital Signs Temp Pulse Resp BP Pulse Ox O2 Del Method FiO2 12/17/24 11:00 118 H 24 H 112/63 91 L Mechanical Ventilation 12/17/24 10:56 23 H 12/17/24 10:00 114 H 22 H 108/63 Mechanical Ventilation 30 12/17/24 09:00 115 H 34 H 94 Mechanical Ventilation 21 12/17/24 08:31 115 H 23 H 12/17/24 08:31 30 12/17/24 08:00 98.6 F 12/17/24 08:00 94 12/17/24 08:00 96 23 H 111/68 95 Mechanical Ventilation 50 12/17/24 07:00 96 23 H 120/76 95 Mechanical Ventilation 30 12/17/24 06:00 98 24 H 131/82 96 Mechanical Ventilation 30 12/17/24 05:06 30 12/17/24 05:00 96 23 H 124/71 96 Mechanical Ventilation 12/17/24 04:00 97.8 F 96 22 H 117/70 97 Mechanical Ventilation 12/17/24 04:00 98 30 12/17/24 03:00 97.8 F 94 21 H 105/66 96 Mechanical Ventilation 12/17/24 02:00 95 21 H 122/73 97 Mechanical Ventilation 12/17/24 01:00 92 22 H 107/64 95 Mechanical Ventilation 12/17/24 00:00 94 30 12/17/24 00:00 98.1 F 94 23 H 102/63 94 Mechanical Ventilation 30 Anesthesia: General Endotracheal-GETA Mental Status: Sedated Pain Control: Satisfactory (unable to eval) Nausea/Vomiting: None Hydration: Adequate Anesthesia-Related Issues: No Anes. Related Issues
--- NOTE | 2024-12-17 13:11 | W.MHC.ACPN ---
Advanced Care Planning Note Advanced Care Planning Note Discussed with: family member(s) Time spent (in minutes): 30 Narrative: following extubation, Mr. Galarza was alert, though not oriented; Mr. Galarza also vomited and likely aspirated as he became hypoxic and was placed on HFNC; I called Mr. Galraza's sister to provide these updates and to discuss the possibilty of re-intubation; Mr. Galarza's sister began questioning if intubation is within his values and wishes; she discussed with family and called me later to state, given Mr. Mancusos risk of aspiration is unlikely to be fully mitigated despite the J tube placement, that she and his siblings believe comfort-focused care is appropriate at this time; she stated that their brother and [id number]-wju may visit later today, though to begin the comfort-focused process as soon as possible to avoid any further suffering Problems Discussed (1) Dysphagia: (2) Jejunostomy tube present:
[2024-12-17] MEDS: Glycopyrrolate 0.2 MG/ML VIAL IVPUSH (13:23)
[2024-12-17] MEDS: Scopolamine 1.5 MG PATCH.TD.3 TRANSDERMA (13:23)
--- NOTE | 2024-12-17 14:51 | PC.NURSE ---
Assumed care at 0700- pt. sedated and mechanically vented. Sedation vacation performed per DEC. PSV trial initiated at 0830. Pt. tolerating PSV 8/5 30%, TVs 300-500. Eyes open spontaneously, minimally tracking, not following commands. MD at bedside. Pt. extubated at 1020 by RT with MD order. On extubation, pt. with large amount of dark green emesis. O2 sats sustaining 80-86% on 6L NC- pt. then placed on HFNC 50L 100%, O2 sats >88%. Pt. awake with eyes open, occasionally tracks, minimally verbal, not appropriately answering questions, occasionally following commands. held multiple discussions via telephone with Pt.s Step-daughter Brenda- see reports. Pt. code status transitioned to BEATER ROOM HELPER. BEATER ROOM HELPER standards of care adopted. HFNC removed and pt. placed to RA. PRN rubinol administered per DEC, scopalamine patch placed behind R ear. Pt. unable to answer questions appropriately, showing no s/s of pain or respiratory distress. BEATER ROOM HELPER plan of care ongoing.
[2024-12-17] MEDS: Morphine Sulfate 2 MG/ML CARTRIDGE IVPUSH ×3 (17:54→21:42)
[2024-12-18 00:03] VITALS: PULSE 130; RESP 32
[2024-12-18] MEDS: fentaNYL citrate/NS 1,000 MCG/100 ML PLAST..BAG 2.5 MCG IVCONT (00:03)
--- NOTE | 2024-12-18 06:15 | PC.NURSE ---
Assumed care at 1900. Patient alert but refuses to answer questions. Tracks speaker, will occasionally reply yes/no appropriately. Moves all extremities. ST on tele, HR 110s. Continues on room air, RR 20s-30s. Patient rhonchorous and wet-sounding. PRN morphine administered per MAR for RR. Abdomen round and soft, patient does not grimace to palpation. [place] catheter in place and draining clear concentrated urine. Bed locked in lowest position, bed alarm on.?? Approx 0000: Patient HR 120s-150s on tele. Fentanyl gtt started per BARRIE Mcmahan (see MAR) for comfort/pain control. Patient resting comfortably, RR even and unlabored.
[2024-12-18] MEDS: 0.9 % Sodium Chloride Flush 3 ML SYRINGE IVFLUSH (08:21)
--- NOTE | 2024-12-18 08:26 | P.PNCC_ITS ---
Subjective Subjective Date of Service: 12/18/24 Interval History: no significant overnight events Critical Care Time (minutes): 0 Physical Exam 2 Vital Signs: Vital Signs: Last Vital Signs Temp 98.8 F 12/17/24 12:00 Pulse 130 H 12/18/24 00:03 Resp 32 H 12/18/24 00:03 BP 115/22 L 12/17/24 14:00 Pulse Ox 86 L 12/17/24 14:00 O2 Del Method High Flow Nasal C annula 12/17/24 14:00 O2 Flow Rate 50 12/17/24 14:00 FiO2 90 12/17/24 14:00 BMI result Body Mass Index 26.0 Const: General: comfortable, no acute distress and well developed HEENT: Head: Yes normal to inspection Eyes: General: appearance normal, both eyes and all related structures Neck: Neck: Yes normal visual inspection Chest: Chest palpation & inspection: normal inspection of the chest Resp: Effort & Inspection: normal respiratory effort Cardio: Rate: tachycardic Rhythm: regular rhythm GI: Inspection: Yes normal to inspection Neuro: General: tone normal and moves all extremities Extrem: General: Yes normal to inspection Psych: Other: no appreciable overt anxiety, agitation Appearance: grossly normal Objective Data Labs 12/17/24 05:32 12/17/24 05:32 Labs: Laboratory Results - last 24 hr 12/17/24 11:47 POC Glucose 225 H Microbiology Microbiology Results: Microbiology 12/16/24 18:15 Lung - Endotracheal Tube Aspirate Gram Stain - Final 12/16/24 18:15 Lung - Endotracheal Tube Aspirate Sputum Culture - Preliminary 12/09/24 14:50 Abscess Intra-abdominal Gram Stain - Final 12/09/24 14:50 Abscess Intra-abdominal Routine Culture - Final No growth. 12/09/24 14:50 Abscess Intra-abdominal Anaerobic Culture - Final Gram variable tamera 11/28/24 15:41 Blood - Venous Blood Culture - Final No growth after 5 days. 11/28/24 15:41 Blood - Venous Blood Culture - Final No growth after 5 days. Progress Note: A&P Assessment and plan (1) Aspiration into airway: Status: Acute (2) Dysphagia: Status: Acute (3) Jejunostomy tube present: Status: Acute Plan Patient is a 79 Y M w/ hypertension, hyperilipidemia, prior PE on apixaban, prostate cancer, anxiety/depression c/b psychosis, hiatal hernia, and persistent dysphagia, initially presenting on 11/14 w/ anxiety, admitted psychiatry; on 11/28, patient developed atrial fibrillation, transferred to medicine; hospital course c/b distended gallbladder, s/p cholestostomy tube placement 12/09 w/ inadvertent dislodgement 12/10, and persistent dysphagia; on 12/15, patient taken to OR for J tube, remained intubated post-operatively, extubated 12/17, aspiration event c/b acute on chronic respiratory failure, transitioned to comfort-focused care on 12/17 - appears comfortable on current regimen; continue comfort-focused process Quality Stroke Does the patient have a stroke diagnosis?: No VTE Prior VTE?: Yes VTE Risk Level:: Medical - moderate - high VTE Device Contraindication: Treatment Not Indicated VTE Drug Contraindication: Treatment Not Indicated
[2024-12-18] MEDS: Morphine Sulfate/NS 100 MG/100 ML PLAST..BAG IVCONT (10:30)
[2024-12-18] MEDS: ondansetron HCL 4 MG/2 ML VIAL IVPUSH (10:40)
[2024-12-18] MEDS: Glycopyrrolate 0.2 MG/ML VIAL IVPUSH (10:42)
--- NOTE | 2024-12-18 10:46 | P.DN_ITS ---
Discharge Sum: Prov Provider Primary care physician: Myron Muhammad [facility] Pronouncing clinician: Tiffanie Maradiaga Discharge Sum: Diag Contributing Factors (1) Aspiration into airway: (2) Dysphagia: (3) Jejunostomy tube present: Discharge Sum: Summary Date and Time Date of admission: 11/28/24 06:39 Date of : 12/18/24 Time of : 10:57 Summary Details: Mr. Galarza is a 79 year-old male with hypertension, hyperlipidemia, prior pulmonary embolism on apixaban, prostate cancer, anxiety/depression complicated by psychosis, and hiatal hernia complicated by persistent dysphagia and aspiration, initially presenting on 11/14 with anxiety and admitted to psychiatry; on 11/28, Mr. Galarza developed atrial fibrillation with rapid ventricular response and transferred to medicine; Mr. Galarza's hospital course was complicated by a distended gallbladder for which a cholestostomy tube was placed on 12/09, though subsequently inadvertent dislodged 12/10, as well as persistent dysphagia; on 12/15, Mr. Galarza was taken to OR for a J tube placement, after which he remained intubated post-operatively; Mr. Galarza was extubated on 12/17, during which he suffered an aspiration event complicated by acute on chronic respiratory failure; a goals of care discussion was had with Mr. Galarza's step-daughter and remaining family, after which his philosophy of care was transitioned to comfort-focused care; Mr. Galarza on 12/18 at 10:57 Additional Data Confirmation of as documented by pronouncing clinician: no pulse, no respirations, no heart sounds and pupils fixed and dilated Family: contacted Attending physician: Tiffanie Maradiaga MD Was code activated?: No Hospice patient?: Yes
--- NOTE | 2024-12-18 11:45 | PC.NURSE ---
Assumed care at 0700- pt. remained PROPOSAL SPECIALIST on fentanyl gtt. Pt cross titrated to morphine gtt at approx 1030 in preparation for transfer to . At approx 1045 pt with large amount of dark brown vomit, frankly aspirating- MD called to bedside. notified HCP of pt.s status via telephone. PRN zofran and rubinol given per MAR. Pt. agonal breathing, pale in color. Pt. turned to side and suctioned PRN. TOD 1057, pronounced by MD- HCP notified by MD via telephone. Vipin notified at approx 1130- this RN spoke with sales representative business courses named Dilia, pt. declined by [facility], case #[id number]. Family breifly at bedside, declined taking home pt.s wedding band, glasses, and dentures. Belongings to be sent to the [facility] with pt. HCP stated pt will go to [facility] in [place]. Post mortem care completed. RN Instrumental Teacher notified. Pending transfer to the [facility].
== END 2024-12-18 14:00 | disposition expired | DRG 444 ==
LOC: HO.S3 07:15 → HO.IMC 08:13 → HO.ICU 12-16 17:56 → HO.S3 12-18 10:04 → HO.ICU 12-18 11:21
PROVIDERS: Family Medicine; Internal Medicine; Nurse Practitioner Family; Physician Assistant; Psychiatry & Neurology Psychiatry; Radiology Diagnostic Radiology; Student in an Organized Health Care Education/Training Program; Surgery; Admitting Provider Internal Medicine; PCP Registered Nurse; Visit Provider Internal Medicine Critical Care Medicine
PROC: 0F9430Z Drainage of Gallbladder with Drainage Device, Percutaneous Approach (ICD-10-PCS; principal; 2024-12-09 13:00)
PROC: 0DHA0UZ Insertion of Feeding Device into Jejunum, Open Approach (ICD-10-PCS; CPT 49441; principal; 2024-12-16 15:40)
DX: K81.0 Acute cholecystitis (principal); J18.9 Pneumonia, unspecified organism; J96.21 Acute and chronic respiratory failure with hypoxia; J69.0 Pneumonitis due to inhalation of food and vomit; I48.92 Unspecified atrial flutter; E87.21 Acute metabolic acidosis; N17.9 Acute kidney failure, unspecified; F33.3 Major depressive disorder, recurrent, severe with psychotic symptoms; Z66 Do not resuscitate; Z51.5 Encounter for palliative care; K22.2 Esophageal obstruction; E86.0 Dehydration; N40.0 Benign prostatic hyperplasia without lower urinary tract symptoms; I48.0 Paroxysmal atrial fibrillation; K44.9 Diaphragmatic hernia without obstruction or gangrene; R73.03 Prediabetes; E05.90 Thyrotoxicosis, unspecified without thyrotoxic crisis or storm; K21.9 Gastro-esophageal reflux disease without esophagitis; C61 Malignant neoplasm of prostate; Z20.822 Contact with and (suspected) exposure to COVID-19; Z86.711 Personal history of pulmonary embolism; Z79.01 Long term (current) use of anticoagulants; Z79.899 Other long term (current) drug therapy
CPT/HCPCS: 0241U; 36415; 49406; 71045; 71250; 74176; 74177; 74230; 76705; 78226; 80048; 80053; 80076; 80335; 82040; 82803; 82947; 83036; 83735; 83880; 84100; 84145; 84439; 84443; 84478; 84484; 85025; 85027; 87040; 87070; 87073; 87205; 87449; 87493; 87507; 87640; 87641; 87899; 88305; 88313; 88342; 92526; 92610; 92611; 93005; 93306; 94002; 94003; 94799; 99152; A9537; C1726; C1729; C1894; J0330; J0613; J0696; J1160; J1596; J1650; J1836; J1940; J2003; J2060; J2250; J2270; J2371; J2405; J2470; J2543; J2704; J2765; J2795; J2919; J3010; J7120; P9047; Q9957; Q9967

== ENCOUNTER 2024-11-28 06:39 | Outpatient (BNV) | payer MEDICARE, OTHER, SELFPAY | END 2024-11-29 06:13 | PROVIDERS: Admitting Provider Internal Medicine; Visit Provider Radiology Diagnostic Radiology | DX: K82.8 Other specified diseases of gallbladder (principal); K83.1 Obstruction of bile duct; R06.09 Other forms of dyspnea; K44.9 Diaphragmatic hernia without obstruction or gangrene | CPT/HCPCS: 76705; 78226 ==

== ENCOUNTER 2024-11-28 06:39 | Outpatient (BNV) | payer MEDICARE, OTHER, SELFPAY | END 2024-12-10 10:30 | PROVIDERS: Admitting Provider Internal Medicine; PCP Registered Nurse; Visit Provider Radiology Diagnostic Radiology | DX: R05.9 Cough, unspecified (principal) | CPT/HCPCS: 71045 ==

== ENCOUNTER → 2024-11-28 06:39 | Outpatient (BNV) | payer MEDICARE, OTHER, SELFPAY | PROVIDERS: Admitting Provider Internal Medicine; PCP Registered Nurse; Visit Provider Internal Medicine Critical Care Medicine | DX: T17.908A Unspecified foreign body in respiratory tract, part unspecified causing other injury, initial encounter (principal); R13.10 Dysphagia, unspecified; Z93.4 Other artificial openings of gastrointestinal tract status | CPT/HCPCS: 99238; 99499 ==

== ENCOUNTER → 2024-11-28 06:39 | Outpatient (BNV) | payer MEDICARE, OTHER, SELFPAY | PROVIDERS: Admitting Provider Internal Medicine; Visit Provider Family Medicine | DX: I48.92 Unspecified atrial flutter (principal) | CPT/HCPCS: 99232; 99233; 99499 ==

== ENCOUNTER → 2024-11-28 06:39 | Outpatient (BNV) | payer MEDICARE, OTHER, SELFPAY | PROVIDERS: Admitting Provider Internal Medicine; PCP Registered Nurse; Visit Provider Surgery | DX: R94.8 Abnormal results of function studies of other organs and systems (principal) | CPT/HCPCS: 99222; 99232 ==

== ENCOUNTER → 2024-11-28 06:39 | Outpatient (BNV) | payer MEDICARE, OTHER, SELFPAY | PROVIDERS: Admitting Provider Internal Medicine; PCP Registered Nurse; Visit Provider Psychiatry & Neurology Psychiatry | DX: F33.3 Major depressive disorder, recurrent, severe with psychotic symptoms (principal); I48.92 Unspecified atrial flutter; K21.9 Gastro-esophageal reflux disease without esophagitis | CPT/HCPCS: 99223 ==

== ENCOUNTER → 2024-11-28 06:39 | Outpatient (BNV) | payer MEDICARE, OTHER, SELFPAY | PROVIDERS: Admitting Provider Internal Medicine; Visit Provider Internal Medicine | DX: I48.92 Unspecified atrial flutter (principal) | CPT/HCPCS: 93010; 99223; 99232 ==